=== PATIENT | female | born 1975 | race Caucasian/White ===

== ENCOUNTER 2016-11-06 12:16 | Day surgery (SDC) | payer MEDICAID ==
[~2016-11-06] VITALS: Ht 167.6 cm; Wt 152.0 kg
[~2016-11-06 12:16] MED LIST: ALBU8.5H2 IH; ALBU8TAB PO; ASPI1TAB22 PO; ATOR40TA70 PO; BUDE180A IH; BUDE180A INH; BUDE90AE2 INH; CEFU500T PO; CIPR-226 PO; CLIN150C17 PO; CLN150C PO; CROM10DR2 OU; CROMOLYN OP; CROMOLYN OPTH OU; ENAL20TA PO; ENALAPRIL; FENO160T12 PO; FENOFIBRATE; GABA-488 PO; HCTZ; HYDR-3454 PO; HYDR-3714 PO; HYDR-3812 PO; HYDR25TA4 PO; IBUP-30 PO; INSU100C4 SQ; INSU100I14 SC; INSU100I14 SQ; INSU100I16 SQ; INSU100I29 SC; INSU100V3 SQ; INSU100V5 SQ; L.AC1CAP6 PO; LEVO750T39 PO; LISI40TA PO; METF1000 PO; METO50TA2 PO; MONT10TA24 PO; MULT-974 PO; NYST15CR3 TP; PROM25SU44 RC; PROM25TA14 PO; RT-ALBUINH INH; SERT50TA2 PO; SERT50TA9 PO; SIMV20TA3 PO; SIMV40TA4 PO; SULF-222 PO; SULF1TAB35 PO; [UNRECOGNIZED DRUG - REMARK]
[2016-11-06] MEDS ORDERED: ONDANSETRON 4 MG/2 ML (SDV) Z0FRAN ONE (12:28)
[2016-11-06] MEDS ORDERED: LACTATED RINGERS 1,000 ML IV ONE (12:28)
[2016-11-06] MEDS ORDERED: MIDAZOLAM 2 MG/2 ML (VERSED) VIAL ONE (12:29)
[2016-11-06] MEDS ORDERED: fentaNYL INJECTION 100 MCG/2 ML AMP ONE (12:29)
[2016-11-06] MEDS ORDERED: LIDOCAINE 1% INJ 20 ML (XYLOCAINE) VIAL ONE (12:30)
[2016-11-06] MEDS ORDERED: VANCOMYCIN 1 GM/NS 250 ML IVPB IV ONE ×2 (12:30)
[2016-11-06] MEDS ORDERED: BUPIVACAINE 0.5% 30 ML (SENSORCAINE) VIAL ONE (12:30)
[2016-11-06] MEDS ORDERED: VANCOMYCIN 1000 MG/VIAL ONE (12:33)
--- NOTE | 2016-11-06 12:37 | Progress Note-Pre Operative ---
Pre-Operative Progress Note H&P Reviewed The H&P was reviewed, patient examined and no changes noted. Date H&P Reviewed: Nov 06, 2016 Time H&P Reviewed: 12:37 Pre-Operative Diagnosis: Osteomyelitis left hallux JERMAIN BROWN DPM Nov 06, 2016 12:37 pm
[2016-11-06] MEDS ORDERED: LACTATED RINGERS 1,000 ML IV PRN (12:50)
[2016-11-06] MEDS ORDERED: FAMOTIDINE 20MG/2ML IV (PEPCID) ONE (12:50)
[2016-11-06] MEDS ORDERED: proPOfol 200 MG/20 ML (DIPRIVAN) VIAL IV ONE (12:52)
[2016-11-06] MEDS ORDERED: FAMOTIDINE 20MG/2ML IV (PEPCID) IV ONE (13:00)
[2016-11-06 13:40] VITALS: BP 130/68
[2016-11-06] MEDS ORDERED: LACTATED RINGERS 1,000 ML IV SCH (13:55)
--- NOTE | 2016-11-06 13:55 | Progress Note-Post Operative ---
Post-Operative Progess Note Pre-Operative Diagnosis OSTEOMYELITIS LEFT HALLUX Post-Operative Diagnosis same Post-Op Procedure Note Date of Procedure: Nov 06, 2016 Name of Procedure: Amputation of the left hallux Procedure Note/Findings There is significant bone destruction of the distal phalanx, left hallux Anesthesia Type General Estimated blood loss (mL): Minimal Specimen(s) collected 1) Distal phalanx, left hallux 2) Proximal phalanx, left hallux JERMAIN BROWNM Nov 06, 2016 1:55 pm
[2016-11-06] MEDS ORDERED: HYDROcodone/APAP 5 MG/325 MG (LORTAB) TAB PO PRN (14:00)
[2016-11-06] MEDS ORDERED: morphine INJ 10 MG/ML 1ML (SYR OR VIAL) IV PRN (14:00)
[2016-11-06] MEDS ORDERED: ONDANSETRON 4 MG/2 ML (SDV) Z0FRAN IV PRN (14:00)
[2016-11-06] MEDS ORDERED: CLIN150C2 PO (14:05)
--- NOTE | 2016-11-06 14:08 | Discharge Inst-Simple/Standard ---
Discharge Inst-Standard Discharge Medications New, Converted or Re-Newed RX: Call to Patients Pharmacy Patient Instructions/Follow Up Plan of Care/Instructions/FU: [facility] Activity as Tolerated: No Discharge Diet: ADA Diet Return to The Hospital For: Severe pain or bleeding JERMAIN BROWN DPM Nov 06, 2016 2:08 pm
[2016-11-06 14:30] VITALS: BP 99/64
[2016-11-06 15:00] VITALS: BP 102/48
--- NOTE | 2016-11-06 15:25 | Physical Therapy Ortho Eval ---
PT Orthopedic Evaluation Type of Surgery amputation of left hallux Prior Level of Function Current Living Status: Spouse Locomotion (Upon Admit): Independent Established Durable Medical Eq: Front Wheeled Walker, Manual Wheelchair Subjective Subjective Patient in bed pre tx, agrees to PT, pleasant and cooperative. Entry Into Home: Stairs With Railing Steps Into Home: 3 Steps Inside Home: 1 Steps Accessories: Railing Present Motor Control Motor Control: Motor Control WNL ROM ROM: WFL, except focal deficit Strength NT due to recent surgery Transfer Transfers (B, C, W/C) (FIM): 6 Gait Gait Assistive Device: FWW Weight Bearing Restriction: Partial Weight Bearing Location Restriction: RT FOOT Gait (FIM): 6 Distance: 150' Summary/Comments Patient also went up and down 1 step using a rolling walker with mod I Treatment Rendered Treatment: Therapeutic Exercises, Gait Train Exercise Instruction: Quad Sets, Ankle Pumps LAQ Assessment/Goals Goal Time Frame: 1 Visit Understands HEP: Yes Safe Ambulation: Yes Plan Treatment Plan: Discharge PT/Family Agrees to Plan: Yes Time Time In: 1455 Time Out: 1515 Total Billed Treatment Time: 20 Billed Treatment Time 1 visit EVL 20 min Yes PT/OT Therapy GCodes Therapy Functional Limitation: Physical Therapy Test(s)/Tool used to determine: Level of Assistance Scale Functional Limitation-Current Charge Code: MOBCUR Modifier: CI Functional Limitation-Goal Charge Code: MOBGOAL Modifier: CI Functional Limitation-D/C Charge Codes: MOBDC Modifier: CI CHEPE GRUBER PT Nov 06, 2016 15:25
[2016-11-06 15:30] VITALS: BP 115/76
[2016-11-06 15:45] VITALS: BP 115/76
--- NOTE | 2016-11-08 12:56 | OPERATIVE REPORT ---
PROCEDURE PHYSICIAN: JERMAIN BROWN DATE OF PROCEDURE: 11/06/2016 PREOPERATIVE DIAGNOSIS: Osteomyelitis left hallux. POSTOPERATIVE DIAGNOSIS: Osteomyelitis left hallux. PROCEDURE: Amputation of the left hallux. WOUND CLASS: Contaminated. ANESTHESIA: Monitored anesthesia care. HEMOSTASIS: Pneumatic ankle tourniquet at 250 mmHg. INDICATION: This 41-year-old female presents with an ulceration to the distal aspect of the left hallux. She had cellulitis and was admitted to the hospital for IV antibiotics. X-rays were negative for any osteomyelitis at time; this was approximately 2 weeks ago. She followed up today in my clinic where she had progression of the wound to heal however it probed down to bone and x-ray followed up today showing significant osteolysis of the distal phalanx left hallux. The patient is agreeable to surgical intervention after risk and complications were discussed at length. She understands that the foot may need further surgery including further amputation, if necessary and she is willing to proceed. PROCEDURE: The patient was brought back to operating table, placed in a secure, supine position. Appropriate timeout was performed. The left foot was prepped and draped in normal sterile manner. The left foot was then elevated, allowed to exsanguinate after which the ankle tourniquet was elevated to 250 mmHg. Attention was then directed to the left hallux where a racquet-type incision was created overlying the interphalangeal joint of the left hallux with the racquet portion of the incision medial to the proximal phalanx. The incision was deepened down to bone and the distal phalanx disarticulated at the interphalangeal joint. The specimen was sent for gross and microscopic evaluation prior to this, however, a rongeur was utilized to resect a piece of bone of the distal phalanx for culture and sensitivity. Next, the distal aspect of the proximal phalanx was then removed with a power sagittal saw and sent for gross and microscopic evaluation. It felt completely normal without any compromise to its integrity or appearance. The extensor and flexor tendons were cut as proximally as possible. The remaining wound appeared to be without any pathology visible. There is no pus pocket. There is no necrosis and no abnormalities with the remaining portion of the left hallux. The wound was power washed with 1 liter of normal saline with gram of vancomycin infused. A swab culture was after this irrigation. The tourniquet was released and all active bleeders were then cauterized and closure was then performed with 4-0 Prolene in a simple interrupted type stitch. The skin came together without tension and capillary fill time was less than 3 seconds to the remaining flaps of the remaining left hallux. Postoperative injection consisted of 10 mL of 0.5% Marcaine. Postoperative dressing consisted of Betadine soaked Adaptic, sterile 4 x 4, sterile Kerlix, all secured with a Coban wrap. Postoperative instructions were given to the patient which he is to be nonweightbearing left foot with heel contact only - crutches or walker. I will see her back in the clinic two weeks period of time or sooner if necessary. Job ID: [id number] Dictated Date: 11/06/2016 14:03:53 Orange Picker Date: 11/08/2016 12:48:29 / azael
== END 2016-11-06 15:45 | disposition home or self-care (01) ==
LOC: SDC 12:16
PROVIDERS: ATTEND Podiatrist Foot & Ankle Surgery
DX: M86.9 Osteomyelitis, unspecified (principal)
CPT/HCPCS: 82962; 84703; 87070; 87075; 87081; 87205; 88305

== ENCOUNTER 2016-12-23 10:30 | Outpatient (RCR) | payer MEDICAID ==
[~2016-12-23 10:30] MED LIST changes: +CLIN150C2 PO
[2016-12-23] MEDS ORDERED: CLIN150C17 PO (17:08)
[2016-12-23] MEDS ORDERED: CLIN300C11 PO (17:08)
== END 2016-12-23 16:00 | disposition home or self-care (01) ==
LOC: WOUNDCARE 10:30
PROVIDERS: ATTEND Surgery
DX: E11.42 Type 2 diabetes mellitus with diabetic polyneuropathy (principal); L97.524 Non-pressure chronic ulcer of other part of left foot with necrosis of bone; M86.472 Chronic osteomyelitis with draining sinus, left ankle and foot; E66.01 Morbid (severe) obesity due to excess calories
CPT/HCPCS: 11042; 11044; 87070; 87075; 87077; 87186; 87205

== ENCOUNTER 2016-12-23 11:38 | Inpatient (IN) | payer MEDICAID ==
[~2016-12-23] VITALS: Ht 167.6 cm; Wt 150.6 kg
[2016-12-23 13:05] VITALS: BP 125/71
[2016-12-23] MEDS ORDERED: FLU TRIvalent (5 YOA+) 2016-17 (AFLURIA) 0.5 ML IM ONE (14:45)
[2016-12-23 14:46] LABS: BASOPHILS % (AUTO) 0 % (0-10); EOSINOPHILS # (AUTO) 0.2 10^3/uL (0.0-0.3); EOSINOPHILS % (AUTO) 1 % (0-10); LYMPHOCYTES # (AUTO) 1.9 X 10^3 (1.0-4.0); LYMPHOCYTES % (AUTO) 12 % (12-44); MEAN CORPUSCULAR HEMOGLOBIN 30 PG (25-34); MEAN CORPUSCULAR HGB CONC 35 G/DL (32-36); MEAN CORPUSCULAR VOLUME 87 FL (80-99); MEAN PLATELET VOLUME 9.8 FL (7.4-10.4); MONOCYTES % (AUTO) 6 % (0-12); NEUTROPHILS # (AUTO) 12.7 X 10^3 (1.8-7.8); NEUTROPHILS % (AUTO) 80 % (42-75); PLATELET COUNT 364 10^3/uL (130-400); RED BLOOD COUNT 3.68 10^6/uL (4.35-5.85); RED CELL DISTRIBUTION WIDTH 13.2 % (10.0-14.5); WHITE BLOOD COUNT 15.9 10^3/uL (4.3-11.0)
[2016-12-23] MEDS ORDERED: VANCOMYCIN INJECTION 2,000 MG in NS IV 500 ML 500 ML IV NR (15:16)
[2016-12-23 15:19] LABS: ALBUMIN 3.5 G/DL (3.2-4.5); BILIRUBIN,TOTAL 0.5 MG/DL (0.1-1.0); CALCIUM 9.1 MG/DL (8.5-10.1); CREATININE SERUM 1.06 MG/DL (0.60-1.30); POTASSIUM 3.8 MMOL/L (3.6-5.0); TOTAL PROTEIN 7.8 G/DL (6.4-8.2)
[2016-12-23] MEDS: ENOXAPARIN 40 MG/0.4 ML (LOVENOX) SYR SC SCH (15:39)
[2016-12-23 16:00] VITALS: BP 121/55
[2016-12-23] MEDS ORDERED: CATHETER FLUSH 10 ML SYR IV PRN (16:00)
[2016-12-23 16:07] LABS: EOSINOPHILS % (MANUAL) 1 %; LYMPHOCYTES % (MANUAL) 14 %; NEUTROPHILS % (MANUAL) 79 %
[2016-12-23] MEDS: oxyCODONE/APAP 7.5-325 MG (PERCOCET 7.5) TABLET PO PRN (16:56)
[2016-12-23] MEDS ORDERED: CLIN150C17 PO (17:08)
[2016-12-23] MEDS ORDERED: CLIN300C11 PO (17:08)
[2016-12-23] MEDS ORDERED: NON-FORMULARY MEDICATION 1 EA EA (Aspirin/Acetaminophen/Caffeine (Excedrin Migraine Caplet PO PRN (17:30)
[2016-12-23] MEDS ORDERED: RT-ALBUTEROL HFA (VENTOLIN) PER PUFF IH PRN (17:30)
[2016-12-23] MEDS ORDERED: RT-ALBUTEROL SULF 2.5 MG/3 ML PRE-MIX VIAL INH PRN (18:00)
[2016-12-23] MEDS ORDERED: ACETAMINOPHEN 500 MG TAB (TYLENOL) PO PRN (18:00)
[2016-12-23 20:00] VITALS: BP 118/57
[2016-12-23] MEDS: RT-FLUTICASONE 110 MCG (FLOVENT) PER PUFF INH SCH (20:20)
[2016-12-23] MEDS: IBUPROFEN TABLET 200 MG TAB PO PRN (20:36)
[2016-12-23] MEDS ORDERED: BUDESONIDE INH SCH (21:00)
[2016-12-23] MEDS ORDERED: NON-FORMULARY MEDICATION 1 EA EA (Insulin Detemir (Levemir Flextouch) 50 UNITS) SC SCH (21:00)
[2016-12-23] MEDS ORDERED: NON-FORMULARY MEDICATION 1 EA EA (Fenofibrate 160 MG) PO SCH (21:00)
[2016-12-23] MEDS: CATHETER FLUSH 10 ML SYR IV SCH (22:00)
[2016-12-23] MEDS: GABAPENTIN 300 MG (NEURONTIN) CAP PO SCH (22:50)
[2016-12-23] MEDS: ATORVASTATIN 40 MG (LIPITOR) TABLET PO SCH (22:50)
[2016-12-23] MEDS: meTOprolol TARTRATE 50 MG (LOPRESSOR) TAB PO SCH (22:50)
[2016-12-23] MEDS: inSUlin ASPART (NovoLOG) 1 UNIT/0.01 ML (CHARGE PER UNIT) SC SCH (22:51)
[2016-12-23] MEDS: MONTELUKAST 10 MG (SINGULAIR) TAB PO SCH (22:51)
[2016-12-23] MEDS: FENOFIBRATE 134 MG (LOFIBRA) CAPSULE PO SCH (22:51)
[2016-12-23] MEDS: inSUlin DETERMIR 1 UNIT/0.01 ML (LEVEMIR) CHARGE PER UNIT SQ SCH (22:52)
[2016-12-24] VITALS (7 sets, daily range): BP systolic 106–144; BP diastolic 52–78
[2016-12-24] MEDS: oxyCODONE/APAP 7.5-325 MG (PERCOCET 7.5) TABLET PO PRN ×3 (00:06→15:41)
[2016-12-24] MEDS ORDERED: VANCOMYCIN INJECTION 1,500 MG in NS IV 500 ML 500 ML IV SCH (03:00)
[2016-12-24] MEDS ORDERED: NON-FORMULARY MEDICATION 1 EA EA (Insulin Aspart (Novolog Flexpen) 30 UNITS) SC SCH (06:00)
[2016-12-24] MEDS: RT-FLUTICASONE 110 MCG (FLOVENT) PER PUFF INH SCH ×2 (07:39→21:10)
[2016-12-24] MEDS: MULTIVIT W/MINERALS TAB (THERAGRAN M) PO SCH (07:45)
[2016-12-24] MEDS: inSUlin ASPART (NovoLOG) 1 UNIT/0.01 ML (CHARGE PER UNIT) SC SCH ×7 (07:45→21:00)
[2016-12-24] MEDS: CATHETER FLUSH 10 ML SYR IV SCH ×3 (07:46→21:30)
[2016-12-24] MEDS: meTOprolol TARTRATE 50 MG (LOPRESSOR) TAB PO SCH ×2 (08:45→21:28)
[2016-12-24] MEDS: lisINopril 20 MG (ZESTRIL) TAB PO SCH (08:45)
[2016-12-24] MEDS: HYDROCHLOROTHIAZIDE 25 MG (HCTZ) TAB PO SCH (08:46)
[2016-12-24] MEDS: SERTRALINE 50 MG (ZOLOFT) TABLET PO SCH (08:46)
[2016-12-24] MEDS: GABAPENTIN 300 MG (NEURONTIN) CAP PO SCH ×3 (08:46→21:41)
[2016-12-24] MEDS: inSUlin DETERMIR 1 UNIT/0.01 ML (LEVEMIR) CHARGE PER UNIT SQ SCH ×2 (08:47→21:29)
[2016-12-24] MEDS ORDERED: NON-FORMULARY MEDICATION 1 EA EA (Lisinopril 40 MG) PO SCH (09:00)
--- NOTE | 2016-12-24 13:25 | History & Physicial (CHS) ---
HPI History of Present Illness: 41 yo patient that was a direct admit from wound clinic for IV antibiotics. Patient has had multiple other amputations on both feet. She has been trying to medically manage the wound on her left foot for a couple weeks now. She is getting more concerned because the infection is now into her bone per Xray. She would like to be evaluated by Dr Rodriguez for amputation. Dr Toth states that she had some red streaking up her leg yesterday when he saw her. She denies any pain. Source: patient, family, RN/MD, old records Exam Limitations: no limitations Date seen by provider: Dec 24, 2016 Attending Physician Marsha Almendarez MD PCP Stephanie Florence MD Consult Date of Admission Dec 23, 2016 at 12:27 Home Medications Home Medications Reviewed patient Home Medication Reconciliation Form Allergies Coded Allergies: Penicillins (Unverified Allergy, Severe, ANAPHYLAXIS, 06/08/13) EBO-Kjoehr-Cvkkfv Hx Patient Social History Alcohol Use: Occasionally Uses Recreational Drug Use: No Smoking Status: Never a Smoker Former smoker/When Quit: Apr 22, 1992 Recent Foreign Travel: No Contact w/other who traveled: No Recent Hopitalizations: No Recent Infectious Disease Expo: No Physical Abuse Screen: No Sexual Abuse: No Immunizations Up To Date Tetanus Booster (TDap): Less than 5yrs Date of Pneumonia Vaccine: Jul 25, 2015 Past Medical History Insulin Dependent DM II Multiple amputations 2/2 DM foot ulcers HTN COPD HLD Obesity Family Medical History Family History: Coronary thrombosis 19 MOTHER Diabetes mellitus 19 MOTHER Glaucoma 19 MOTHER Hypertension 19 MOTHER Retinal detachment Review of Systems ([facility]C) Constitutional: no symptoms reportedNo chills, No fever Respiratory: no symptoms reportedNo cough, No dyspnea on exertion, short of breath (with activity, at baseline) Cardiovascular: no symptoms reportedNo chest pain, No edema, No palpitations Gastrointestinal: no symptoms reportedNo abdominal pain, No constipation, No diarrhea, No nausea, No vomiting Genitourinary: no symptoms reportedNo dysuria, No frequency : No Musculoskeletal: joint swelling Skin: other (Wound on left 2nd toe) Psychiatric/Neurological: No Symptoms Reported Reviewed Test Results Reviewed Test Results Lab Laboratory Tests Test 12/23/16 14:34 12/23/16 20:51 12/24/16 05:34 12/24/16 10:14 Range/Units Alanine Aminotransferase (ALT/SGPT) 12 0-55 U/L Albumin 3.5 3.2-4.5 G/DL Alkaline Phosphatase 44 40-136 U/L Anion Gap 13 5-14 MMOL/L Aspartate Amino Transf (AST/SGOT) 13 5-34 U/L BUN/Creatinine Ratio 25 Basophils # (Auto) 0.0 0.0-0.1 10^3/uL Basophils (%) (Auto) 0 0-10 % Blood Urea Nitrogen 26 H 7-18 MG/DL Calcium Level 9.1 8.5-10.1 MG/DL Carbon Dioxide Level 23 21-32 MMOL/L Chloride Level 99 98-107 MMOL/L Creatinine 1.06 0.60-1.30 MG/DL Eosinophils # (Auto) 0.2 0.0-0.3 10^3/uL Eosinophils % (Manual) 1 % Eosinophils (%) (Auto) 1 0-10 % Estimat Glomerular Filtration Rate 57 Glucose Level 109 H 70-105 MG/DL Hematocrit 32 L 35-52 % Hemoglobin 11.1 L 11.5-16.0 G/DL Lymphocytes # (Auto) 1.9 1.0-4.0 X 10^3 Lymphocytes % (Manual) 14 % Lymphocytes (%) (Auto) 12 12-44 % Macrocytosis SLIGHT Mean Corpuscular Hemoglobin 30 25-34 PG Mean Corpuscular Hemoglobin Concent 35 32-36 G/DL Mean Corpuscular Volume 87 80-99 FL Mean Platelet Volume 9.8 7.4-10.4 FL Monocytes # (Auto) 1.0 0.0-1.0 X 10^3 Monocytes % (Manual) 6 % Monocytes (%) (Auto) 6 0-12 % Neutrophils # (Auto) 12.7 H 1.8-7.8 X 10^3 Neutrophils % (Manual) 79 % Neutrophils (%) (Auto) 80 H 42-75 % Platelet Count 364 130-400 10^3/uL Potassium Level 3.8 3.6-5.0 MMOL/L Red Blood Count 3.68 L 4.35-5.85 10^6/uL Red Cell Distribution Width 13.2 10.0-14.5 % Sodium Level 135 135-145 MMOL/L Total Bilirubin 0.5 0.1-1.0 MG/DL Total Protein 7.8 6.4-8.2 G/DL White Blood Count 15.9 H 4.3-11.0 10^3/uL Glucometer 165 H 156 H 236 H 70-110 MG/DL Physical Exam-([facility]) Physical Exam Vital Signs VS - Last 72 Hours, by Label 12/23/16 12/23/16 12/23/16 12/23/16 13:05 14:50 16:00 20:00 Temp 98.8 100.6 99.3 Pulse 106 109 106 Resp 18 20 20 B/P 125/71 121/55 118/57 Pulse Ox 99 95 97 96 O2 Delivery Room Air Room Air Room Air 12/23/16 12/23/16 12/24/16 12/24/16 20:20 21:00 00:10 04:30 Temp 96.5 96.8 Pulse 80 76 Resp 20 20 B/P 109/66 144/77 Pulse Ox 94 98 99 O2 Delivery Room Air Room Air 12/24/16 12/24/16 12/24/16 12/24/16 07:26 07:41 08:08 11:31 Temp 96.3 97.5 Pulse 72 71 Resp 28 20 B/P 107/75 113/78 Pulse Ox 100 95 98 O2 Delivery Room Air Room Air Room Air Capillary Refill : General Appearance: WD/WN no apparent distress (Obese adult female) HEENT: PERRL/EOMI Neck: non-tender full range of motion supple normal inspection Respiratory: chest non-tender lungs clear normal breath sounds no respiratory distress no accessory muscle useNo crackles, No wheezing Cardiovascular: normal peripheral pulses regular rate, rhythm no edema no gallop no JVD no murmur Gastrointestinal: normal bowel sounds non tender soft no organomegaly no pulsatile mass Extremities: normal range of motion no calf tenderness other (R foot s/p toe amputation, left foot with only 2nd toe present, mild erythema at base of toe, no streaking present this AM) Neurologic/Psychiatric: mason foreman/superintendant II-XII nml as tested alert normal mood/affect oriented x 3 Skin: normal color warm/dry Lymphatic: no adenopathy Assessment/Plan Assessment/Plan Plan 41 yo F that was admitted for Left foot cellulitis Plan Left foot cellulitis - Podiatry has been consulted per patients request, she has had multiple amputations by Dr Rodriguez in the past - IV Vancomycin D2 - Patient will likely need amputation - Non weight bearing Left foot pain - Controlled on PO medications Insulin Dependent DM II - A1c pending - Continued home insulin medications at this time - Hold Metformin while inpatient HTN - Blood pressure has been well controlled, continue home medications COPD - Continue home medications, non oxygen dependent at baseline FEN: ADA Diet DVT PPX: SCDs, lovenox if patient is not going to have surgery while admitted Dispo: Admit to Med Surg for IV antibiotics Diagnosis/Problems: Clinical Quality Measures DVT/VTE Risk/Contraindication: Risk Factor Score Per Nursin RFS Level Per Nursing on Admit: 4+=Very High Copy Copies To 1: STEPHANIE FLORENCE MD, HOLLY R MD Dec 24, 2016 13:25
[2016-12-24] MEDS ORDERED: TROUGH ORDER-PHARMACY XX NR (14:00)
[2016-12-24] MEDS: VANCOMYCIN INJECTION 1,250 MG in NS (IVPB) 250 ML IV SCH (15:36)
[2016-12-24] MEDS: ENOXAPARIN 40 MG/0.4 ML (LOVENOX) SYR SC SCH (15:36)
--- NOTE | 2016-12-24 18:04 | Podiatry Progress Note ---
Standard Progress Note Progress Notes/Assess & Plan Progress/Assessment & Plan Consult Dictated: Recommend IV antibiotics and wound care improve the cellulitis before surgery. Xrays ordered. Final Diagnosis Osteomyelitis left 2nd toe Cellulitis left foot Diabetic Neuropathy JERMAIN BROWN DPM Dec 24, 2016 18:04
--- NOTE | 2016-12-24 18:35 | Diagnostic Imaging Report ---
INDICATION: Infection. EXAMINATION: Left foot at 6:07 p.m. AP and lateral views were obtained. FINDINGS: The prior exam of 10/21/16 noted a soft tissue irregularity of the distal great toe. In the interval since the previous exam, the distal phalanx and the distal half of the proximal phalanx of the great toe have been amputated. The previous study also noted a periosteal reaction around the distal half of the proximal phalanx of the third digit. That finding is not as pronounced on this exam. However, there now seems to be destruction of most of the distal phalanx of the second digit. This does suggest osteomyelitis. There is also much more soft tissue edema about the second digit than noted previously. No other bony abnormality is identified. IMPRESSION: 1. There is destruction of most of the distal phalanx of the second digit with associated soft tissue edema. This appearance would be consistent with osteomyelitis. If further imaging is desired, then either a three-phase nuclear medicine bone scan or MRI would be recommended. 2. The periosteal reaction of the distal proximal phalanx of the third digit, seen previously, is not as pronounced on this exam. 3. There has been amputation of the distal phalanx and the distal half of the proximal phalanx of the great toe in the interval since the previous study. Dictated by: Dictated on workstation # [id number]
[2016-12-24] MEDS: ATORVASTATIN 40 MG (LIPITOR) TABLET PO SCH (21:28)
[2016-12-24] MEDS: FENOFIBRATE 134 MG (LOFIBRA) CAPSULE PO SCH (21:28)
[2016-12-24] MEDS: IBUPROFEN TABLET 200 MG TAB PO PRN (21:28)
[2016-12-24] MEDS: MONTELUKAST 10 MG (SINGULAIR) TAB PO SCH (21:28)
[2016-12-25 00:46] VITALS: BP 101/62
[2016-12-25] MEDS: VANCOMYCIN INJECTION 1,250 MG in NS (IVPB) 250 ML IV SCH ×3 (03:09→15:54)
[2016-12-25 04:10] VITALS: BP 101/54
[2016-12-25] MEDS: inSUlin ASPART (NovoLOG) 1 UNIT/0.01 ML (CHARGE PER UNIT) SC SCH ×7 (06:00→21:00)
[2016-12-25 06:01] LABS: BASOPHILS # (AUTO) 0.1 10^3/uL (0.0-0.1); BASOPHILS % (AUTO) 1 % (0-10); EOSINOPHILS # (AUTO) 0.6 10^3/uL (0.0-0.3); EOSINOPHILS % (AUTO) 6 % (0-10); LYMPHOCYTES % (AUTO) 21 % (12-44); MEAN CORPUSCULAR HEMOGLOBIN 30 PG (25-34); MEAN CORPUSCULAR HGB CONC 34 G/DL (32-36); MEAN CORPUSCULAR VOLUME 88 FL (80-99); MEAN PLATELET VOLUME 9.8 FL (7.4-10.4); MONOCYTES # (AUTO) 0.7 X 10^3 (0.0-1.0); MONOCYTES % (AUTO) 8 % (0-12); NEUTROPHILS # (AUTO) 6.2 X 10^3 (1.8-7.8); NEUTROPHILS % (AUTO) 65 % (42-75); PLATELET COUNT 356 10^3/uL (130-400); RED BLOOD COUNT 3.53 10^6/uL (4.35-5.85); RED CELL DISTRIBUTION WIDTH 13.5 % (10.0-14.5); WHITE BLOOD COUNT 9.5 10^3/uL (4.3-11.0)
[2016-12-25 06:39] LABS: CALCIUM 8.4 MG/DL (8.5-10.1); CREATININE SERUM 1.19 MG/DL (0.60-1.30); POTASSIUM 4.2 MMOL/L (3.6-5.0)
[2016-12-25] MEDS: CATHETER FLUSH 10 ML SYR IV SCH ×3 (07:04→22:48)
[2016-12-25] MEDS: MULTIVIT W/MINERALS TAB (THERAGRAN M) PO SCH (07:05)
[2016-12-25] MEDS: RT-FLUTICASONE 110 MCG (FLOVENT) PER PUFF INH SCH ×2 (07:15→19:00)
[2016-12-25 07:38] VITALS: BP 101/68
--- NOTE | 2016-12-25 07:40 | CONSULTATION REPORT ---
DATE OF CONSULTATION: 12/24/2016 REFERRING PHYSICIAN: The patient was home and had to go the restroom in the middle of the night and missed a step striking her left second toe. The patient tried home wound care for the resulting injury which did not improve. She was then seen at which [facility] for wound care which was not successful. The patient subsequently had the toe infected and was referred to the [facility] wound clinic. Dr. Salazar looked after the patient and recommended IV antibiotics and was subsequently admitted. The patient does have some discomfort associated with her left rearfoot and lower leg. No current fever, chills, nausea or vomiting are reported. She has been on IV antibiotics for a couple days to my understanding. PAST MEDICAL HISTORY: Includes: 1. Insulin-dependent type 2 diabetes. 2. Multiple amputations, bilateral foot. 3. Hypertension. 4. COPD. 5. HDL. 6. Obesity. SOCIAL HISTORY: The patient uses occasional alcohol, no recreational drugs. Denies tobacco use. ALLERGIES: She is allergic to penicillin. LOWER EXTREMITY EXAMINATION: The patient has a transmetatarsal amputation on the right. On the left, she a partial amputation of the hallux and the 3rd digit. She has full-thickness wound to the distal aspect of the left second digit with probing down to bone. Some maceration to the distal wound. There is edema to the second digit with a bulla developing on the dorsal lateral aspect. There is no proximal streaking noted at this time and some erythema to the distal aspect of the left second digit. ASSESSMENT: 1. Osteomyelitis left 2nd toe. 2. Cellulitis. 3. Diabetic neuropathy. PLAN: Various treatment options were discussed with the patient. We discussed conservative and surgical options. Conservative options would be continued wound care with IV antibiotics. She would like to rather have digital amputation to resolve the problem if possible. In light of the fact that the second toe is longer than the remainder of the hallux or a 3rd digit, I think she would be right to have an amputation. This gives her greater chance of less trauma to the second digit and also a potentially more definitive resolution to the osteomyelitis. X-rays were ordered today for the left foot. I think it is in the interest of the patient to have IV antibiotics and wound care performed for several days prior to an amputation. I am hoping to have this done Wednesday if possible. Job ID: [id number] Dictated Date: 12/24/2016 18:11:02 Vest Maker Date: 12/25/2016 07:32:32/sabrina OLIVAS
[2016-12-25] MEDS: lisINopril 20 MG (ZESTRIL) TAB PO SCH (09:08)
[2016-12-25] MEDS: HYDROCHLOROTHIAZIDE 25 MG (HCTZ) TAB PO SCH (09:08)
[2016-12-25] MEDS: SERTRALINE 50 MG (ZOLOFT) TABLET PO SCH (09:08)
[2016-12-25] MEDS: GABAPENTIN 300 MG (NEURONTIN) CAP PO SCH ×3 (09:08→21:02)
[2016-12-25] MEDS: meTOprolol TARTRATE 50 MG (LOPRESSOR) TAB PO SCH ×2 (09:08→21:02)
[2016-12-25] MEDS: inSUlin DETERMIR 1 UNIT/0.01 ML (LEVEMIR) CHARGE PER UNIT SQ SCH ×2 (09:09→21:01)
--- NOTE | 2016-12-25 11:15 | Progress Note (SOAP) ---
Subjective Subjective/Events-last exam Patient states that she is doing well this AM. States that she saw Dr Rodriguez and there is a plan for surgery on Wednesday. Tolerating PO diet. Denies pain, N/V or abd pain. Date seen by provider: Dec 25, 2016 Objective Exam Last Set of Vital Signs Vital Signs Date Time Temp Pulse Resp B/P Pulse Ox O2 Delivery O2 Flow Rate FiO2 12/25/16 07:38 96.6 72 18 101/68 99 Room Air Capillary Refill : I&O Intake and Output 12/25/16 00:00 Intake Total 2242.5 ml Output Total 2450 ml Balance -207.5 ml Intake Oral 1980 ml IV Total 262.5 ml Output Urine Total 2450 ml General: Alert, Oriented X3, Cooperative, No Acute Distress Lungs: Clear to Auscultation, Normal Air Movement Heart: Regular Rate, Normal S1, Normal S2, No Murmurs Abdomen: Normal Bowel Sounds, Soft, No Tenderness, No Hepatosplenomegaly, No Masses Extremities: Other (Left toe bandaged, no streaking present) Psych/Mental Status: Mental Status NL, Mood NL Results/Procedures Lab Laboratory Tests 12/24/16 14:02: Vancomycin Level Trough 20.1H 12/24/16 15:50: Glucometer 84 12/24/16 21:04: Glucometer 123H 12/25/16 05:50: Anion Gap 13, BUN/Creatinine Ratio 34, Basophils # (Auto) 0.1, Basophils (%) ( Auto) 1, Blood Urea Nitrogen 40H, Calcium Level 8.4L, Carbon Dioxide Level 20L, Chloride Level 103, Creatinine 1.19, Eosinophils # (Auto) 0.6H, Eosinophils (%) (Auto) 6, Estimat Glomerular Filtration Rate 50, Glucose Level 148H, Hematocrit 31L, Hemoglobin 10.7L, Hemoglobin A1c < 4.0L, Lymphocytes # (Auto) 2.0, Lymphocytes (%) (Auto) 21, Mean Corpuscular Hemoglobin 30, Mean Corpuscular Hemoglobin Concent 34, Mean Corpuscular Volume 88, Mean Platelet Volume 9.8, Monocytes # (Auto) 0.7, Monocytes (%) (Auto) 8, Neutrophils # (Auto) 6.2, Neutrophils (%) (Auto) 65, Platelet Count 356, Potassium Level 4.2, Red Blood Count 3.53L, Red Cell Distribution Width 13.5, Sodium Level 136, White Blood Count 9.5 Assessment/Plan Assessment/Plan Plan 41 yo F that was admitted for Left foot cellulitis Plan Left foot cellulitis - Dr Rodriguez plans to take patient to surgery on Wednesday - Left foot Xrays pending - IV Vancomycin D3, Trough mildly elevated, dose adjusted to 1250 BID - Non weight bearing Left foot pain - Controlled on PO medications Insulin Dependent DM II - A1c pending - Continued home insulin medications at this time - Hold Metformin while inpatient HTN - Blood pressure has been well controlled, continue home medications COPD - Continue home medications, non oxygen dependent at baseline FEN: ADA Diet DVT PPX: Lovenox Daily Dispo: Continue admit to Med Surg for IV antibiotics Diagnosis/Problems: Clinical Quality Measures DVT/VTE Risk/Contraindication: Risk Factor Score Per Nursin RFS Level Per Nursing on Admit: 4+=Very High DOMITILA UMANA MD Dec 25, 2016 11:15
[2016-12-25 13:35] VITALS: BP 105/69
[2016-12-25] MEDS: oxyCODONE/APAP 7.5-325 MG (PERCOCET 7.5) TABLET PO PRN ×2 (13:50→22:48)
[2016-12-25] MEDS ORDERED: TROUGH ORDER-PHARMACY XX NR (14:00)
--- NOTE | 2016-12-25 14:02 | Podiatry Progress Note ---
Standard Progress Note Progress Notes/Assess & Plan Progress/Assessment & Plan The patient states that the pain was much improved until she stood up for a shower. No F/C/N/V. There is some serous drainage to the gauze dressing left 2nd digit. There is decreased erythema to the proximal left 2nd digit. No proximal streaking. The bulla to the proximal portion of the 2nd digit has improved, it is currently deroofed. Full thickness wound to the distal L2 toe which probes to bone. Laboratory Tests 12/23/16 14:34: Blood Urea Nitrogen 26H, Glucose Level 109H, Hematocrit 32L, Hemoglobin 11.1L, Neutrophils # (Auto) 12.7H, Neutrophils (%) (Auto) 80H, Red Blood Count 3.68L, White Blood Count 15.9H 12/23/16 20:51: Glucometer 165H 12/24/16 05:34: Glucometer 156H 12/24/16 10:14: Glucometer 236H 12/24/16 14:02: Vancomycin Level Trough 20.1H 12/24/16 15:50: 12/24/16 21:04: Glucometer 123H 12/25/16 05:50: Blood Urea Nitrogen 40H, Calcium Level 8.4L, Carbon Dioxide Level 20L, Eosinophils # (Auto) 0.6H, Glucose Level 148H, Hematocrit 31L, Hemoglobin 10.7L , Hemoglobin A1c < 4.0L, Red Blood Count 3.53L 12/25/16 11:16: Glucometer 202H Vital Signs Date Time Temp Pulse Resp B/P Pulse Ox O2 Delivery O2 Flow Rate FiO2 12/25/16 07:38 96.6 72 18 101/68 99 Room Air 12/25/16 07:15 98 12/25/16 04:10 96.0 64 18 101/54 98 Room Air 12/25/16 00:46 97.4 78 20 101/62 98 Room Air 12/24/16 21:15 80 124/64 12/24/16 21:10 97 12/24/16 21:00 Room Air 12/24/16 20:00 96.1 83 18 119/52 100 Room Air 12/24/16 15:45 95.8 71 16 106/65 100 Room Air I & O 12/25/16 07:00 Intake Total 2762.5 ml Output Total 2750 ml Balance 12.5 ml Xrays show osteolysis of the distal phalanx of the left 2nd digit. Plan: Continue with wound care and IV antibiotics until the wound envelope is improved to the proximal left 2nd digit. This will allow for improved outcomes with amputation and closure of the wound, left 2nd digit. Possible Wednesday noon surgery. Final Diagnosis Ostoemyelitis left 2nd digit. JERMAIN BROWN DPM Dec 25, 2016 14:02
[2016-12-25] MEDS: ENOXAPARIN 40 MG/0.4 ML (LOVENOX) SYR SC SCH (15:54)
[2016-12-25 16:00] VITALS: BP 100/58
[2016-12-25] MEDS: IBUPROFEN TABLET 200 MG TAB PO PRN (16:21)
--- NOTE | 2016-12-25 19:45 | Wound Care Progress Note ---
Subjective Subjective Subjective/Events-last exam 41 year old female with infected L 2nd toe wound, improved on IV antibiotics. Has required debridement of distal phalanx. Minimal pain in toe. PMFSH: no interval change. Review of Systems Pulmonary: No Dyspnea Cardiovascular: No: Chest Pain Objective Exam Last Set of Vital Signs Vital Signs Date Time Temp Pulse Resp B/P Pulse Ox O2 Delivery O2 Flow Rate FiO2 12/25/16 16:00 97.8 75 16 100/58 98 Room Air Capillary Refill : I&O Intake and Output 12/25/16 00:00 Intake Total 2242.5 ml Output Total 2450 ml Balance -207.5 ml Intake Oral 1980 ml IV Total 262.5 ml Output Urine Total 2450 ml General: Alert, No Acute Distress Lungs: Normal Air Movement Extremities: Other (Marked improvement in swelling of L 2nd toe.) Results Lab Laboratory Tests 12/24/16 21:04: Glucometer 123H 12/25/16 05:50: Anion Gap 13, BUN/Creatinine Ratio 34, Basophils # (Auto) 0.1, Basophils (%) ( Auto) 1, Blood Urea Nitrogen 40H, Calcium Level 8.4L, Carbon Dioxide Level 20L, Chloride Level 103, Creatinine 1.19, Eosinophils # (Auto) 0.6H, Eosinophils (%) (Auto) 6, Estimat Glomerular Filtration Rate 50, Glucose Level 148H, Hematocrit 31L, Hemoglobin 10.7L, Hemoglobin A1c < 4.0L, Lymphocytes # (Auto) 2.0, Lymphocytes (%) (Auto) 21, Mean Corpuscular Hemoglobin 30, Mean Corpuscular Hemoglobin Concent 34, Mean Corpuscular Volume 88, Mean Platelet Volume 9.8, Monocytes # (Auto) 0.7, Monocytes (%) (Auto) 8, Neutrophils # (Auto) 6.2, Neutrophils (%) (Auto) 65, Platelet Count 356, Potassium Level 4.2, Red Blood Count 3.53L, Red Cell Distribution Width 13.5, Sodium Level 136, White Blood Count 9.5 12/25/16 11:16: Glucometer 202H 12/25/16 14:35: Vancomycin Level Trough 22.0H 12/25/16 16:18: Glucometer 103 Assessment/Plan Assessment/Plan Assessment/Plan 1. Infection L 2nd toe with osteomyelitis. 2. Diabetic foot ulcer, Grade 3. 3. Cellulitis of L 2nd toe. Plan: Will observe on antibiotics. The patient is considering amputation. SHREYAS PIKE MD Dec 25, 2016 19:45
[2016-12-25 20:00] VITALS: BP 138/67
[2016-12-25] MEDS: FENOFIBRATE 134 MG (LOFIBRA) CAPSULE PO SCH (21:01)
[2016-12-25] MEDS: MONTELUKAST 10 MG (SINGULAIR) TAB PO SCH (21:01)
[2016-12-25] MEDS: ATORVASTATIN 40 MG (LIPITOR) TABLET PO SCH (21:02)
[2016-12-26] VITALS: BP 133/88
[2016-12-26] MEDS: IBUPROFEN TABLET 200 MG TAB PO PRN (00:29)
[2016-12-26 04:00] VITALS: BP 100/55
[2016-12-26] MEDS: CATHETER FLUSH 10 ML SYR IV SCH ×3 (06:07→22:17)
[2016-12-26 06:25] LABS: CALCIUM 8.6 MG/DL (8.5-10.1); CREATININE SERUM 1.11 MG/DL (0.60-1.30); POTASSIUM 4.3 MMOL/L (3.6-5.0)
[2016-12-26] MEDS: MULTIVIT W/MINERALS TAB (THERAGRAN M) PO SCH (06:41)
[2016-12-26] MEDS: inSUlin ASPART (NovoLOG) 1 UNIT/0.01 ML (CHARGE PER UNIT) SC SCH ×8 (07:04→20:42)
[2016-12-26] MEDS: RT-FLUTICASONE 110 MCG (FLOVENT) PER PUFF INH SCH ×2 (07:56→19:30)
[2016-12-26 08:13] VITALS: BP 125/60
[2016-12-26] MEDS: HYDROCHLOROTHIAZIDE 25 MG (HCTZ) TAB PO SCH (09:06)
[2016-12-26] MEDS: inSUlin DETERMIR 1 UNIT/0.01 ML (LEVEMIR) CHARGE PER UNIT SQ SCH ×2 (09:06→21:57)
[2016-12-26] MEDS: lisINopril 20 MG (ZESTRIL) TAB PO SCH (09:06)
[2016-12-26] MEDS: GABAPENTIN 300 MG (NEURONTIN) CAP PO SCH ×3 (09:06→20:29)
[2016-12-26] MEDS: SERTRALINE 50 MG (ZOLOFT) TABLET PO SCH (09:06)
[2016-12-26] MEDS: meTOprolol TARTRATE 50 MG (LOPRESSOR) TAB PO SCH ×2 (09:06→20:29)
[2016-12-26] MEDS: oxyCODONE/APAP 7.5-325 MG (PERCOCET 7.5) TABLET PO PRN ×2 (09:06→18:32)
[2016-12-26 12:08] VITALS: BP 143/73
[2016-12-26] MEDS: ENOXAPARIN 40 MG/0.4 ML (LOVENOX) SYR SC SCH (15:11)
[2016-12-26] MEDS: VANCOMYCIN INJECTION 1,250 MG in NS (IVPB) 250 ML IV SCH (15:11)
[2016-12-26 16:00] VITALS: BP 128/64
--- NOTE | 2016-12-26 19:47 | Progress Note (SOAP) ---
Subjective Subjective/Events-last exam Patient doing well this AM. No concerns. Date seen by provider: Dec 26, 2016 Objective Exam Last Set of Vital Signs Vital Signs Date Time Temp Pulse Resp B/P Pulse Ox O2 Delivery O2 Flow Rate FiO2 12/26/16 19:30 95 12/26/16 16:00 97.0 72 20 128/64 Room Air Capillary Refill : I&O Intake and Output 12/26/16 00:00 Intake Total 2122.5 ml Output Total 2300 ml Balance -177.5 ml Intake Oral 1860 ml IV Total 262.5 ml Output Urine Total 2300 ml General: Alert, Oriented X3, Cooperative, No Acute Distress Lungs: Clear to Auscultation, Normal Air Movement Heart: Regular Rate, Normal S1, Normal S2, No Murmurs Abdomen: Normal Bowel Sounds, Soft, No Tenderness, No Hepatosplenomegaly, No Masses Extremities: No Tenderness/Swelling, Other (Left foot with erythema and mild swelling, no streaking present) Results/Procedures Lab Laboratory Tests 12/25/16 20:15: Glucometer 108 12/26/16 05:25: Anion Gap 12, BUN/Creatinine Ratio 39, Blood Urea Nitrogen 43H, Calcium Level 8.6, Carbon Dioxide Level 20L, Chloride Level 105, Creatinine 1.11, Estimat Glomerular Filtration Rate 54, Glucose Level 125H, Potassium Level 4.3, Sodium Level 137 12/26/16 10:39: Glucometer 138H 12/26/16 16:44: Glucometer 85 Assessment/Plan Assessment/Plan Plan 41 yo F that was admitted for Left foot cellulitis Plan Left foot cellulitis - Dr Rodriguez plans to take patient to surgery on Wednesday - Left foot Xray show signs of Osteomyelitis - IV Vancomycin D4 - Non weight bearing Osteomyelitis in second digit on left foot - See above Left foot pain - Controlled on PO medications Insulin Dependent DM II - A1c <4 - Continued home insulin medications at this time - Hold Metformin while inpatient HTN - Blood pressure has been well controlled, continue home medications COPD - Continue home medications, non oxygen dependent at baseline FEN: ADA Diet DVT PPX: Lovenox Daily Dispo: Continue admit to Med Surg for IV antibiotics and surgery on Wednesday Diagnosis/Problems: Clinical Quality Measures DVT/VTE Risk/Contraindication: Risk Factor Score Per Nursin RFS Level Per Nursing on Admit: 4+=Very High DOMITILA UMANA MD Dec 26, 2016 19:47
[2016-12-26 20:03] VITALS: BP 111/63
[2016-12-26] MEDS: MONTELUKAST 10 MG (SINGULAIR) TAB PO SCH (20:29)
[2016-12-26] MEDS: ATORVASTATIN 40 MG (LIPITOR) TABLET PO SCH (20:29)
[2016-12-26] MEDS: FENOFIBRATE 134 MG (LOFIBRA) CAPSULE PO SCH (20:29)
[2016-12-27] VITALS: BP 111/70
[2016-12-27] MEDS: oxyCODONE/APAP 7.5-325 MG (PERCOCET 7.5) TABLET PO PRN ×4 (00:54→21:51)
[2016-12-27 05:25] LABS: CALCIUM 8.8 MG/DL (8.5-10.1); CREATININE SERUM 1.2 MG/DL (0.60-1.30); POTASSIUM 4.3 MMOL/L (3.6-5.0)
[2016-12-27] MEDS: inSUlin ASPART (NovoLOG) 1 UNIT/0.01 ML (CHARGE PER UNIT) SC SCH ×7 (06:00→21:00)
[2016-12-27] MEDS: CATHETER FLUSH 10 ML SYR IV SCH ×3 (06:17→22:28)
[2016-12-27] MEDS: MULTIVIT W/MINERALS TAB (THERAGRAN M) PO SCH (06:17)
[2016-12-27 08:00] VITALS: BP 121/63
[2016-12-27] MEDS: SERTRALINE 50 MG (ZOLOFT) TABLET PO SCH (08:10)
[2016-12-27] MEDS: HYDROCHLOROTHIAZIDE 25 MG (HCTZ) TAB PO SCH (08:10)
[2016-12-27] MEDS: meTOprolol TARTRATE 50 MG (LOPRESSOR) TAB PO SCH ×2 (08:10→20:50)
[2016-12-27] MEDS: lisINopril 20 MG (ZESTRIL) TAB PO SCH (08:10)
[2016-12-27] MEDS: GABAPENTIN 300 MG (NEURONTIN) CAP PO SCH ×3 (08:10→20:51)
[2016-12-27] MEDS: inSUlin DETERMIR 1 UNIT/0.01 ML (LEVEMIR) CHARGE PER UNIT SQ SCH ×2 (08:11→21:02)
[2016-12-27] MEDS: RT-FLUTICASONE 110 MCG (FLOVENT) PER PUFF INH SCH ×2 (09:12→19:20)
[2016-12-27] MEDS ORDERED: TROUGH ORDER-PHARMACY XX NR (14:00)
[2016-12-27] MEDS: ENOXAPARIN 40 MG/0.4 ML (LOVENOX) SYR SC SCH (15:00)
[2016-12-27 16:00] VITALS: BP 136/81
[2016-12-27] MEDS: VANCOMYCIN 1 GM/NS 250 ML IVPB IV SCH ×2 (16:03)
--- NOTE | 2016-12-27 19:23 | Progress Note (SOAP) ---
Subjective Subjective/Events-last exam No complaints today. Waiting to talk to Dr Rodriguez about surgery. Date seen by provider: Dec 27, 2016 Objective Exam Last Set of Vital Signs Vital Signs Date Time Temp Pulse Resp B/P Pulse Ox O2 Delivery O2 Flow Rate FiO2 12/27/16 16:00 96.8 69 20 136/81 100 Room Air Capillary Refill : I&O Intake and Output 12/26/16 23:59 Intake Total 2622.5 ml Output Total 3550 ml Balance -927.5 ml Intake Oral 2360 ml IV Total 262.5 ml Output Urine Total 3550 ml General: Alert, Oriented X3, Cooperative, No Acute Distress Lungs: Clear to Auscultation, Normal Air Movement Heart: Regular Rate, No Murmurs Abdomen: Normal Bowel Sounds, Soft, No Tenderness Extremities: Other (Left foot with bandage present, no erythema present streaking up leg, mild tenderness with active range of motion) Psych/Mental Status: Mental Status NL, Mood NL Results/Procedures Lab Laboratory Tests 12/26/16 20:41: Glucometer 92 12/27/16 04:05: Anion Gap 11, BUN/Creatinine Ratio 39, Blood Urea Nitrogen 47H, Calcium Level 8.8, Carbon Dioxide Level 20L, Chloride Level 105, Creatinine 1.20, Estimat Glomerular Filtration Rate 49, Glucose Level 122H, Potassium Level 4.3, Sodium Level 136 12/27/16 10:41: Glucometer 241H 12/27/16 14:45: Vancomycin Level Trough 12.1 12/27/16 15:50: Glucometer 129H Assessment/Plan Assessment/Plan Plan 41 yo F that was admitted for Left foot cellulitis Plan Left foot cellulitis - Dr Rodriguez plans to take patient to surgery on Wednesday - Left foot Xray show signs of Osteomyelitis - IV Vancomycin D5 - Non weight bearing Osteomyelitis in second digit on left foot - See above Left foot pain - Controlled on PO medications Insulin Dependent DM II - A1c <4, risk of hypoglycemia, patient denies any symptoms of hypoglycemia - Continued home insulin medications at this time - Hold Metformin while inpatient HTN - Blood pressure has been well controlled, continue home medications COPD - Continue home medications, non oxygen dependent at baseline FEN: ADA Diet DVT PPX: Lovenox Daily, will hold tonight dose if surgery is scheduled for tomorrow Dispo: Continue admit to Med Surg for IV antibiotics and surgery on Wednesday Diagnosis/Problems: Clinical Quality Measures DVT/VTE Risk/Contraindication: Risk Factor Score Per Nursin RFS Level Per Nursing on Admit: 4+=Very High DOMITILA UMANA MD Dec 27, 2016 19:23
[2016-12-27] MEDS: MONTELUKAST 10 MG (SINGULAIR) TAB PO SCH (20:50)
[2016-12-27] MEDS: ATORVASTATIN 40 MG (LIPITOR) TABLET PO SCH (20:51)
[2016-12-27] MEDS: FENOFIBRATE 134 MG (LOFIBRA) CAPSULE PO SCH (21:02)
--- NOTE | 2016-12-27 21:25 | Podiatry Progress Note ---
Standard Progress Note Progress Notes/Assess & Plan Progress/Assessment & Plan The patient states that she would like to go home. Pain has improved, left. There is some serous drainage to the gauze dressing left 2nd digit. There is decreased erythema to the proximal left 2nd digit. No proximal streaking. There is a full thickness wound to the proximal lateral portion of the 2nd digit with a fibrotic base, 1.4cm in diameter. Full thickness wound to the distal L2 toe which probes to bone. Vital Signs Date Time Temp Pulse Resp B/P Pulse Ox O2 Delivery O2 Flow Rate FiO2 12/25/16 07:38 96.6 72 18 101/68 99 Room Air 12/25/16 07:15 98 12/25/16 04:10 96.0 64 18 101/54 98 Room Air 12/25/16 00:46 97.4 78 20 101/62 98 Room Air 12/24/16 21:15 80 124/64 12/24/16 21:10 97 12/24/16 21:00 Room Air 12/24/16 20:00 96.1 83 18 119/52 100 Room Air 12/24/16 15:45 95.8 71 16 106/65 100 Room Air I & O 12/25/16 07:00 Intake Total 2762.5 ml Output Total 2750 ml Balance 12.5 ml Plan: Continue with wound care and IV antibiotics. She is to be NPO after midnight for surgery tomorrow. Consent for amputation of the left 2nd digit. Final Diagnosis Osteomyelitis left 2nd digit. JERMAIN BROWN DPM Dec 27, 2016 21:25
[2016-12-28] VITALS: BP 132/89
[2016-12-28] MEDS: VANCOMYCIN 1 GM/NS 250 ML IVPB IV SCH ×4 (02:55→14:36)
[2016-12-28] MEDS: CATHETER FLUSH 10 ML SYR IV SCH ×3 (05:31→20:38)
[2016-12-28] MEDS: inSUlin ASPART (NovoLOG) 1 UNIT/0.01 ML (CHARGE PER UNIT) SC SCH ×7 (05:32→17:55)
[2016-12-28 05:54] LABS: BASOPHILS # (AUTO) 0.1 10^3/uL (0.0-0.1); BASOPHILS % (AUTO) 1 % (0-10); EOSINOPHILS # (AUTO) 0.3 10^3/uL (0.0-0.3); EOSINOPHILS % (AUTO) 4 % (0-10); LYMPHOCYTES # (AUTO) 2.3 X 10^3 (1.0-4.0); LYMPHOCYTES % (AUTO) 29 % (12-44); MEAN CORPUSCULAR HEMOGLOBIN 30 PG (25-34); MEAN CORPUSCULAR HGB CONC 34 G/DL (32-36); MEAN CORPUSCULAR VOLUME 88 FL (80-99); MEAN PLATELET VOLUME 9.7 FL (7.4-10.4); MONOCYTES # (AUTO) 0.6 X 10^3 (0.0-1.0); MONOCYTES % (AUTO) 8 % (0-12); NEUTROPHILS # (AUTO) 4.7 X 10^3 (1.8-7.8); NEUTROPHILS % (AUTO) 59 % (42-75); PLATELET COUNT 429 10^3/uL (130-400); RED BLOOD COUNT 3.76 10^6/uL (4.35-5.85); RED CELL DISTRIBUTION WIDTH 13.6 % (10.0-14.5); WHITE BLOOD COUNT 7.9 10^3/uL (4.3-11.0)
[2016-12-28 06:19] LABS: ALBUMIN 3.1 G/DL (3.2-4.5); BILIRUBIN,TOTAL 0.3 MG/DL (0.1-1.0); CALCIUM 8.7 MG/DL (8.5-10.1); CREATININE SERUM 1.11 MG/DL (0.60-1.30); POTASSIUM 4.6 MMOL/L (3.6-5.0); TOTAL PROTEIN 7.3 G/DL (6.4-8.2)
[2016-12-28] MEDS: RT-FLUTICASONE 110 MCG (FLOVENT) PER PUFF INH SCH ×2 (07:27→19:54)
[2016-12-28] MEDS: GABAPENTIN 300 MG (NEURONTIN) CAP PO SCH ×3 (07:57→20:37)
[2016-12-28 08:00] VITALS: BP 130/84
[2016-12-28] MEDS ORDERED: LACTATED RINGERS 1,000 ML IV PRN ×2 (08:21→11:44)
[2016-12-28] MEDS ORDERED: LIDOCAINE 1% 10 MG/ML 0.2 ML SYR (FOR IV START) IJ ONE (08:30)
[2016-12-28] MEDS: meTOprolol TARTRATE 50 MG (LOPRESSOR) TAB PO SCH ×2 (08:31→20:37)
[2016-12-28] MEDS: HYDROCHLOROTHIAZIDE 25 MG (HCTZ) TAB PO SCH (08:31)
[2016-12-28] MEDS: lisINopril 20 MG (ZESTRIL) TAB PO SCH (08:31)
[2016-12-28] MEDS: inSUlin DETERMIR 1 UNIT/0.01 ML (LEVEMIR) CHARGE PER UNIT SQ SCH ×2 (08:35→20:38)
[2016-12-28] MEDS: MULTIVIT W/MINERALS TAB (THERAGRAN M) PO SCH (08:35)
[2016-12-28] MEDS ORDERED: BUPIVACAINE 0.5% 30 ML (SENSORCAINE) VIAL ONE (10:32)
[2016-12-28] MEDS ORDERED: LIDOCAINE 1% INJ 20 ML (XYLOCAINE) VIAL ONE (10:32)
[2016-12-28] MEDS ORDERED: proPOfol 200 MG/20 ML (DIPRIVAN) VIAL IV ONE (10:51)
[2016-12-28] MEDS ORDERED: LIDOCAINE PF 2% 10 ML (XYLOCAINE) AMP ONE (10:51)
[2016-12-28] MEDS ORDERED: SEVOFLURANE (ULTANE) 15 ML INHAL SOLN ONE (10:51)
[2016-12-28] MEDS ORDERED: ONDANSETRON 4 MG/2 ML (SDV) Z0FRAN ONE (10:51)
[2016-12-28] MEDS ORDERED: LACTATED RINGERS 1,000 ML IV ONE (10:51)
[2016-12-28] MEDS ORDERED: MIDAZOLAM 2 MG/2 ML (VERSED) VIAL ONE (10:52)
[2016-12-28] MEDS ORDERED: fentaNYL INJECTION 250 MCG/5 ML AMP ONE (10:52)
--- NOTE | 2016-12-28 12:11 | Progress Note-Pre Operative ---
Pre-Operative Progress Note H&P Reviewed The H&P was reviewed, patient examined and no changes noted. Date H&P Reviewed: Dec 28, 2016 Time H&P Reviewed: 12:10 Pre-Operative Diagnosis: Osteomyelitis left 2nd toe JERMAIN BROWN DPGiacomo Dec 28, 2016 12:11
--- NOTE | 2016-12-28 13:06 | Progress Note-Post Operative ---
Post-Operative Progess Note Pre-Operative Diagnosis Osteomyelitis left 2nd toe Post-Operative Diagnosis Same Post-Op Procedure Note Date of Procedure: Dec 28, 2016 Name of Procedure: Amputation of the left 2nd toe Anesthesia Type General Estimated blood loss (mL): Minimal Specimen(s) collected left 2nd digit JERMAIN BROWN DPM Dec 28, 2016 13:06
[2016-12-28] MEDS ORDERED: LACTATED RINGERS 1,000 ML IV SCH (13:11)
[2016-12-28] MEDS ORDERED: ONDANSETRON 4 MG/2 ML (SDV) Z0FRAN IVP PRN (13:30)
[2016-12-28] MEDS ORDERED: MEPERIDINE (DEMEROL) INJ 50 MG/ML IVP PRN (13:30)
[2016-12-28] MEDS ORDERED: morphine INJ 10 MG/ML 1ML (SYR OR VIAL) IVP PRN (13:30)
[2016-12-28] MEDS ORDERED: TROUGH ORDER-PHARMACY XX NR (14:00)
[2016-12-28 14:29] VITALS: BP 122/67
[2016-12-28] MEDS: SERTRALINE 50 MG (ZOLOFT) TABLET PO SCH (14:35)
[2016-12-28] MEDS: ENOXAPARIN 40 MG/0.4 ML (LOVENOX) SYR SC SCH (14:37)
--- NOTE | 2016-12-28 15:20 | Diagnostic Imaging Report ---
EXAMINATION: Left foot. INDICATION: Postop. TECHNIQUE: AP and lateral views were obtained. FINDINGS: The prior exam of 12/24/2016 noted that the distal phalanx and the distal half of the proximal phalanx of the great toe had been amputated. The distal and middle phalanges of the third toe had also been amputated. In the interval since the previous exam, the proximal phalanx, middle phalanx, and the remnant of the distal phalanx of the second digit seen previously have also been amputated. The overall appearance of the foot is otherwise no different. There is no new bony abnormality identified. There is no sign of a radiopaque foreign body. IMPRESSION: In the interval since the prior exam, the phalanges of the second digit have been amputated. There is no evidence for an acute bony abnormality. Dictated by: Dictated on workstation # [id number]
--- NOTE | 2016-12-28 15:32 | Physical Therapy Progress Note ---
Therapy Progress Note Patient declined all therapy intervention due to multiple amputations prior and patient trusts her ability with FWW use. PT educated patient on importance of activity to improve circulation and promote healing and patient verbally understands. No skilled PT indicated. 1 ref LUCY HUA PT Dec 28, 2016 15:32
[2016-12-28 16:09] VITALS: BP 123/57
[2016-12-28] MEDS: HYDROcodone/APAP 5 MG/325 MG (LORTAB) TAB PO PRN (19:44)
[2016-12-28] MEDS: FENOFIBRATE 134 MG (LOFIBRA) CAPSULE PO SCH (20:37)
[2016-12-28] MEDS: MONTELUKAST 10 MG (SINGULAIR) TAB PO SCH (20:37)
[2016-12-28] MEDS: ATORVASTATIN 40 MG (LIPITOR) TABLET PO SCH (20:37)
[2016-12-29 00:15] VITALS: BP 115/56
[2016-12-29] MEDS: CATHETER FLUSH 10 ML SYR IV SCH ×2 (03:15→13:44)
[2016-12-29] MEDS: VANCOMYCIN 1 GM/NS 250 ML IVPB IV SCH ×4 (03:22→14:45)
[2016-12-29] MEDS: RT-FLUTICASONE 110 MCG (FLOVENT) PER PUFF INH SCH (07:00)
[2016-12-29] MEDS: inSUlin ASPART (NovoLOG) 1 UNIT/0.01 ML (CHARGE PER UNIT) SC SCH ×5 (07:17→16:00)
[2016-12-29] MEDS: MULTIVIT W/MINERALS TAB (THERAGRAN M) PO SCH (07:18)
[2016-12-29 08:06] VITALS: BP 114/65
[2016-12-29] MEDS: GABAPENTIN 300 MG (NEURONTIN) CAP PO SCH ×2 (08:27→13:44)
[2016-12-29] MEDS: SERTRALINE 50 MG (ZOLOFT) TABLET PO SCH (08:27)
[2016-12-29] MEDS: inSUlin DETERMIR 1 UNIT/0.01 ML (LEVEMIR) CHARGE PER UNIT SQ SCH (08:27)
[2016-12-29] MEDS: lisINopril 20 MG (ZESTRIL) TAB PO SCH (08:27)
[2016-12-29] MEDS: meTOprolol TARTRATE 50 MG (LOPRESSOR) TAB PO SCH (08:27)
[2016-12-29] MEDS: HYDROCHLOROTHIAZIDE 25 MG (HCTZ) TAB PO SCH (08:27)
[2016-12-29] MEDS: HYDROcodone/APAP 5 MG/325 MG (LORTAB) TAB PO PRN (08:27)
--- NOTE | 2016-12-29 10:49 | Discharge Summary-Hospitalist ---
Diagnosis/Chief Complaint Date of Admission Dec 23, 2016 at 12:27 Date of Discharge Discharge Date: Discharge Diagnosis left second toe osteomyelitis requiring amputation by Dr. 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 Pt will have second left toe amputated today. Patient Interview: PCP is Dr. Hoskins. Pt states that pain is manageable. Pt states that all of her right toes have been removed. Pt has a long hx of DM. Physical exam stable. Pt reports regular BMs. Pt states that she wants to go home. vitals stable, pleasant, oriented 3, partner at bedside Regular rate and rhythm, clear to all sedation bilaterally Left foot with second toe with dressing right foot metatarsal amputee Plan: Second left toe amputation SS Resume home health after DC Scribed by Varun Vickers under the direct supervision of Dr. Jackson. Hospital course: Patient had a lengthy hospital course she was admitted for cellulitis and abscess of the left toe Dr. Hylton podiatry saw her in consultation IV antibiotics for maintained along with laboratory evaluation and pain control. She responded to antibiotics and it was assessed that the left second toe needed amputation and that was performed at day of discharge by Dr. Rodriguez who had done other toes for her and especially the right metatarsal amputation in the past. She very has home care for wound care and will be monitor closely and provided all support that she needs during this recovery of the toe amputation. Notes from 12/29/2016: Chart Review: Pt stayed overnight after amputation. Pharmacy Review: Pharmacy suggests Clindamycin 150mg TID for 5 more days Patient Interview: Pt states that she will not be able to DC until her is down with work later today. Pt states that pain is normal. Pt uses [facility]. Pt states that she has sufficient supply of pain meds at home. Plan: Clindamycin 150mg TID for [address] Rodriguez regarding dressing changes. Scribed by Varun Vickers under the direct supervision of Dr. Jackson. Discharge Summary Discharge Physical Examination Allergies: Coded Allergies: Penicillins (Unverified Allergy, Severe, ANAPHYLAXIS, 06/08/13) Vitals & I&Os Vital Signs Date Time Temp Pulse Resp B/P Pulse Ox O2 Delivery O2 Flow Rate FiO2 12/29/16 08:06 95.2 71 20 114/65 100 Room Air Hospital Course Labs (last 24 hrs) Laboratory Tests 12/28/16 13:21: Glucometer 123H 12/28/16 16:24: Glucometer 140H 12/28/16 20:25: Glucometer 146H 12/29/16 06:21: Glucometer 151H 12/29/16 11:02: Glucometer 197H Microbiology 12/27/16 MRSA Screen - Final, Complete MRSA not isolated Pending Labs Laboratory Tests 12/29/16 06:21: Glucometer 151 12/29/16 11:02: Glucometer 197 Discharge Home Medications: Active Scripts Active Clindamycin HCl 150 Mg Capsule 150 Mg PO TID Reported Pulmicort Flexhaler (Budesonide) 90 Mcg Aer.pow.ba 1 Puff INH BID Cromolyn Sodium 10 Ml Drops 2 Drops OU DAILY PRN Promethazine Suppository (Promethazine HCl) 25 Mg Supp.rect 25 Mg RC Q4H PRN Sertraline HCl 50 Mg Tablet 50 Mg PO DAILY Metformin HCl 1,000 Mg Tablet 1,000 Mg PO BID Montelukast Sodium 10 Mg Tablet 10 Mg PO HS Proventil Hfa (Albuterol Sulfate) 6.7 Gm Hfa.aer.ad 2 Puff INH Q4H PRN Hydrochlorothiazide 25 Mg Tablet 25 Mg PO DAILY Metoprolol Tartrate 50 Mg Tablet 50 Mg PO BID Hydrocodon -Acetaminophen 5-325 (Hydrocodone/Acetaminophen) 1 Each Tablet 1 Tab PO Q4H PRN Levemir Flextouch (Insulin Detemir) 100 Unit/1 Ml Insuln.pen 50 Units SC BID Novolog Flexpen (Insulin Aspart) 300 Units/3 Ml Solution 30 Units SC AC Novolog Flexpen (Insulin Aspart) 300 Units/3 Ml Solution SQ SLIDING/SCALE PRN Lisinopril 40 Mg Tablet 40 Mg PO DAILY Gabapentin 300 Mg Capsule 300 Mg PO TID Fenofibrate 160 Mg Tablet 160 Mg PO HS Atorvastatin Calcium 40 Mg Tablet 40 Mg PO HS Promethazine Tablet (Promethazine HCl) 25 Mg Tablet 25 Mg PO TID PRN Nystatin 15 Gm Cream.gm. TP BID PRN Excedrin Migraine Caplet (Aspirin/Acetaminophen/Caffeine) 1 Tab Tablet 2 Tab PO DAILY PRN ALTERNATES WITH IBUPROFEN Advil (Ibuprofen) 200 Mg Tablet 800 Mg PO TID PRN TAKES 4 (200MG) TABLETS - ALTERNATES WITH IBUPROFEN Multi Vitamin Daily (Multivitamin) 1 Each Tablet 1 Tab PO DAILY Instructions to patient/family Please see electonic discharge instructions given to patient. Clinical Quality Measures DVT/VTE Risk/Contraindication: Risk Factor Score Per Nursin RFS Level Per Nursing on Admit: 4+=Very High AZIZA JACKSON DO Dec 29, 2016 10:49
[2016-12-29] MEDS ORDERED: CLIN150C17 PO (10:50)
--- NOTE | 2016-12-29 10:52 | Discharge Inst-Home Health ---
Discharge [facility]-Home Health Patient Instructions Patient Instructions/FU Appt: Complete antibiotics as directed Dressing changes per Dr. Rodriguez with home health care Patient Problems: left toe amputation Diabetes mellitus [place] DISCHARGE ORDERS Allergies: Coded Allergies: Penicillins (Unverified Allergy, Severe, ANAPHYLAXIS, 06/08/13) Height (Feet): 5 Height (Inches): 6.00 Weight (Pounds): 332 Weight (Ounces): 2.0 Weight (Calculated Kilograms): [id number] Home Health Need/Face to Face Need for Home Health toe amputation with right foot metatarsal amputation history I Have Seen Pt [id number]: Yes Date of Face to Face: Dec 29, 2016 Discharged To: Home Diagnosis/Conditions HH Order: medication administration Dressing changes per Dr. Rodriguez's orders yes Consult/Follow Up/New Order *I certify that based on my findings, the following services are medically necessary Home Health Services: Services: Nursing Services My clinical findings support the need for the above services; see Diagnosis. Discharge Diet: ADA Diet Daily Activity as Tolerated: Yes Discharge Medications New Medications: Clindamycin HCl (Clindamycin HCl) 150 Mg Capsule 150 MG PO TID #15 CAP Continued Medications: Albuterol Sulfate (Proventil Hfa) 6.7 Gm Hfa.aer.ad 2 PUFF INH Q4H PRN SHORTNESS OF BREATH INHALER Aspirin/Acetaminophen/Caffeine (Excedrin Migraine Caplet) 1 Tab Tablet 2 TAB PO DAILY ALTERNATES WITH IBUPROFEN PRN MIGRAINE TAB Atorvastatin Calcium (Atorvastatin Calcium) 40 Mg Tablet 40 MG PO HS TAB Budesonide (Pulmicort Flexhaler) 90 Mcg Aer.pow.ba 1 PUFF INH BID GM Cromolyn Sodium (Cromolyn Sodium) 10 Ml Drops 2 DROPS OU DAILY PRN ALLERGIES DROPS Fenofibrate (Fenofibrate) 160 Mg Tablet 160 MG PO HS TAB Gabapentin (Gabapentin) 300 Mg Capsule 300 MG PO TID CAP Hydrochlorothiazide (Hydrochlorothiazide) 25 Mg Tablet 25 MG PO DAILY TAB Hydrocodone/Acetaminophen (Hydrocodon -Acetaminophen 5-325) 1 Each Tablet 1 TAB PO Q4H PRN SEVERE PAIN TAB Ibuprofen (Advil) 200 Mg Tablet 800 MG PO TID TAKES 4 (200MG) TABLETS - ALTERNATES WITH IBUPROFEN PRN MIGRAINE TAB Insulin Aspart (Novolog Flexpen) 300 Units/3 Ml Solution SQ SLIDING/SCALE PRN HIGH BLOOD SUGAR EA Insulin Aspart (Novolog Flexpen) 300 Units/3 Ml Solution 30 UNITS SC AC EA Insulin Detemir (Levemir Flextouch) 100 Unit/1 Ml Insuln.pen 50 UNITS SC BID EA Lisinopril (Lisinopril) 40 Mg Tablet 40 MG PO DAILY TAB Metformin HCl (Metformin HCl) 1,000 Mg Tablet 1000 MG PO BID TAB Metoprolol Tartrate (Metoprolol Tartrate) 50 Mg Tablet 50 MG PO BID TAB Montelukast Sodium (Montelukast Sodium) 10 Mg Tablet 10 MG PO HS TAB Multivitamin (Multi Vitamin Daily) 1 Each Tablet 1 TAB PO DAILY TAB Nystatin (Nystatin) 15 Gm Cream.gm. TP BID PRN RASH EA Promethazine HCl (Promethazine Tablet) 25 Mg Tablet 25 MG PO TID PRN NAUSEA/VOMITING TAB Promethazine HCl (Promethazine Suppository) 25 Mg Supp.rect 25 MG RC Q4H PRN NAUSEA/VOMITING TAB Sertraline HCl (Sertraline HCl) 50 Mg Tablet 50 MG PO DAILY TAB I certify that this patient is under my care and that I, a nurse practitioner or a physician; a communication assistant working with me, had a face to face encounter that - meets the physician face to face encounter requirements with this patient as dated. AZIZA JACKSON DO Dec 29, 2016 10:52
--- NOTE | 2016-12-29 11:42 | Anesthesia-General Post-Op ---
General Patient Condition Mental Status/LOC: Same as Preop Cardiovascular: Satisfactory Nausea/Vomiting: Absent Respiratory: Satisfactory Pain: Controlled Complications: Absent Post Op Complications Complications None Follow Up Care/Instructions Patient Instructions None needed. Anesthesia/Patient Condition Patient Condition Patient is doing well, no complaints, stable vital signs, no apparent adverse anesthesia problems. No complications reported per nursing. JOHN MILAN CRNA Dec 29, 2016 11:42
--- NOTE | 2016-12-29 13:02 | OPERATIVE REPORT ---
PROCEDURE PHYSICIAN: PAT BROWN DATE OF PROCEDURE: 12/28/2016 SURGEON: Pat Brown DPM. PREOPERATIVE DIAGNOSIS: Osteomyelitis left second toe. POSTOPERATIVE DIAGNOSIS: Osteomyelitis left second toe. PROCEDURE: Amputation of left second toe. WOUND CLASS: Contaminated. ANESTHESIA: General. HEMOSTASIS: Pneumatic ankle tourniquet at 250 mmHg. INDICATION: This 41-year-old female presents with ulceration that extends down to bone. She had confirmed osteomyelitis through culture and x-ray. Conservative therapy is met with unsatisfactory results and the patient is agreeable to surgical intervention after risk and complications were discussed at length. No guarantees were extended to the patient and she is willing to proceed. PROCEDURE: The patient was brought to operating table, placed in a secure, supine position. Appropriate timeout was performed. A pneumatic ankle tourniquet was placed on the left lower extremity over several layers of padding. The left foot was then prepped and draped. General anesthetic was then induced. The left foot was then elevated, allowed to exsanguinate after which the tourniquet was inflated to 250 mmHg. Attention was then directed to the left second toe where full-thickness ulceration extended from the tip of the toe down to bone. There is also full-thickness ulceration to the proximal lateral aspect of the left second digit. The incision was created from the dorsal aspect of the second metatarsophalangeal joint extending distally, then medially creating a flap of the more medial proximal skin. Incision was then created from its dorsal aspect of the second metatarsal phalangeal joint just proximal to the full-thickness ulceration to the inferior aspect of the toe. The digit was then disarticulated at the proximal interphalangeal joint and the middle and distal phalanx were sent for gross and microscopic evaluation. Next sharply the proximal phalanx was disarticulated at the metatarsophalangeal joint. The extensor and flexor tendons were cut as proximally as possible. The remaining tissue was inspected and no major necrosis or purulent tissue was identified. The wound was then pulse irrigated with 2000 ccs of normal saline. The area was then swab cultured to confirm a sterile condition. The wound was then closed utilizing 4-0 Prolene in a simple interrupted type stitch. The tourniquet was released noting no active bleeders prior to closure. Also the appropriate capillary fill time to the remaining tissue of the amputation site, left second digit. Postoperative injection consisted of 7 mL of 0.5% Marcaine plain injected in local infusion to the surgical site. Postoperative dressing consisted of Betadine soaked Adaptic, sterile 4 x 4, sterile Kerlix, all secured with a Coban wrap. The patient tolerated the anesthesia and procedure well and was transported from the operating room to the recovery area, with vital signs stable and vascular status intact to the remaining tissue of the left foot. We will see the patient back in the clinic in approximately 2 weeks period of time or sooner if necessary. We should be able to discharge her to home tomorrow. Job ID: [id number] Dictated Date: 12/28/2016 13:11:10 Paper Bag Machine Operator Date: 12/29/2016 12:55:49 / [email or web address]
[2016-12-29] MEDS: ENOXAPARIN 40 MG/0.4 ML (LOVENOX) SYR SC SCH (13:46)
[2016-12-29] MEDS ORDERED: TROUGH ORDER-PHARMACY XX NR (14:00)
== END 2016-12-29 16:45 | disposition home health service (06) | DRG 988 ==
LOC: 4TH 12:27
PROVIDERS: ADMIT Family Medicine; ATTEND Family Medicine
PROC: 0QTP0ZZ Resection of Left Metatarsal, Open Approach (ICD-10-PCS; principal; 2016-12-28 12:24)
DX: L03.116 Cellulitis of left lower limb (principal); M86.472 Chronic osteomyelitis with draining sinus, left ankle and foot; E11.621 Type 2 diabetes mellitus with foot ulcer; E11.42 Type 2 diabetes mellitus with diabetic polyneuropathy; E66.01 Morbid (severe) obesity due to excess calories; Z68.43 Body mass index [BMI] 50.0-59.9, adult; I10 Essential (primary) hypertension; J44.9 Chronic obstructive pulmonary disease, unspecified; E78.5 Hyperlipidemia, unspecified; Z79.4 Long term (current) use of insulin
CPT/HCPCS: 36415; 73620; 80048; 80053; 80202; 82962; 83036; 84703; 85007; 85025; 85027; 87070; 87075; 87081; 87205; 88305; 88311; 94640; 94760

== ENCOUNTER → 2017-02-09 | Outpatient (CLI) | payer MEDICAID ==
[~2017-02-09] MED LIST changes: +CLIN300C11 PO
--- NOTE | 2017-02-09 12:45 | Diagnostic Imaging Report ---
Gastric emptying scan. INDICATION: Abdominal pain. After the oral administration of 1.1 mCi of technetium 99m sulfur colloid mixed in a meal , images over the stomach with counts performed. FINDINGS: Gastric emptying is 40% at one hour , 62% at 2 hours, 80%, at 3 hours, and 86% at 4 hours. IMPRESSION: Gastric emptying within normal limits. Dictated by: Dictated on workstation # [id number]
== END ==
LOC: CARD 07:51
PROVIDERS: ATTEND Family Medicine
DX: R10.11 Right upper quadrant pain (principal); R11.2 Nausea with vomiting, unspecified
CPT/HCPCS: 78264

== ENCOUNTER 2017-03-17 05:37 | Outpatient (CLI) | payer MEDICAID ==
[~2017-03-17] VITALS: Ht 167.6 cm; Wt 150.6 kg
[2017-03-19] MEDS ORDERED: HYDR-3812 PO (13:37)
== END 2017-03-17 08:52 ==
LOC: PREOP 05:37
PROVIDERS: ATTEND Podiatrist Foot & Ankle Surgery
DX: Z01.818 Encounter for other preprocedural examination (principal); M86.9 Osteomyelitis, unspecified

== ENCOUNTER 2017-03-19 11:30 | Day surgery (SDC) | payer MEDICAID ==
[~2017-03-19] VITALS: Ht 167.6 cm; Wt 150.6 kg
[2017-03-19 11:35] VITALS: BP 151/76
[2017-03-19] MEDS ORDERED: BUPIVACAINE 0.5% 30 ML (SENSORCAINE) VIAL ONE (12:03)
[2017-03-19] MEDS ORDERED: LIDOCAINE 1% INJ 20 ML (XYLOCAINE) VIAL ONE (12:03)
[2017-03-19] MEDS ORDERED: LACTATED RINGERS 1,000 ML IV PRN (12:14)
[2017-03-19] MEDS ORDERED: FAMOTIDINE 20MG/2ML IV (PEPCID) IV ONE (12:15)
[2017-03-19] MEDS ORDERED: PROPOFOL INJECTION 50 ML IV ONE ×2 (12:16→12:55)
[2017-03-19] MEDS ORDERED: fentaNYL INJECTION 100 MCG/2 ML AMP ONE (12:16)
[2017-03-19] MEDS ORDERED: LACTATED RINGERS 1,000 ML IV ONE (12:16)
[2017-03-19] MEDS ORDERED: MIDAZOLAM 10 MG/2 ML (VERSED) VIAL ONE (12:16)
--- NOTE | 2017-03-19 12:19 | Progress Note-Pre Operative ---
Pre-Operative Progress Note H&P Reviewed The H&P was reviewed, patient examined and no changes noted. Date H&P Reviewed: March 19, 2017 Time H&P Reviewed: 12:19 Pre-Operative Diagnosis: Osteomyelitis left 4th toe JERMAIN BROWN DPGiacomo March 19, 2017 12:19 pm
[2017-03-19] MEDS ORDERED: morphine INJ 10 MG/ML 1ML (SYR OR VIAL) ONE (12:51)
[2017-03-19] MEDS ORDERED: GENTAMICIN 40 MG/ML 2 ML INJ SDV ONE (12:55)
--- NOTE | 2017-03-19 13:27 | Progress Note-Post Operative ---
Post-Operative Progess Note Surgeon (s)/Circular Ripsaw Operator (s) Surgeon JERMAIN BROWN DPM Circular Ripsaw Operator: none Pre-Operative Diagnosis Osteomyelitis left 4th toe Post-Operative Diagnosis Same Procedure & Operative Findings Date of Procedure 03/19/17 Procedure Performed/Findings Amputation of the right 4th toe Anesthesia Type MAC Estimated Blood Loss Estimated blood loss (mL): Minimal Specimens/Packing Specimens Removed Right 4th toe Packing: None JERMAIN BROWN DPM March 19, 2017 1:27 pm
[2017-03-19] MEDS ORDERED: LACTATED RINGERS 1,000 ML IV SCH (13:34)
[2017-03-19] MEDS ORDERED: HYDR-3812 PO (13:37)
[2017-03-19] MEDS ORDERED: ONDANSETRON 4 MG/2 ML (SDV) Z0FRAN IVP PRN ×2 (13:45)
[2017-03-19] MEDS ORDERED: HYDROcodone/APAP 5 MG/325 MG (LORTAB) TAB PO PRN (13:45)
[2017-03-19] MEDS ORDERED: MEPERIDINE (DEMEROL) INJ 50 MG/ML IVP PRN (13:45)
[2017-03-19] MEDS ORDERED: morphine INJ 10 MG/ML 1ML (SYR OR VIAL) IVP PRN (13:45)
[2017-03-19 14:00] VITALS: BP 121/84
[2017-03-19 14:45] VITALS: BP 118/74
[2017-03-19 14:50] VITALS: BP 118/74
--- NOTE | 2017-03-19 15:09 | OPERATIVE REPORT ---
DATE OF SERVICE: 03/19/2017 SURGEON: Pat Brown DPM PREOPERATIVE DIAGNOSIS: Osteomyelitis, left fourth toe. POSTOPERATIVE DIAGNOSIS: Osteomyelitis, left fourth toe. PROCEDURE: Amputation of left fourth toe. WOUND CLASS: Contaminated. ANESTHESIA: Monitored anesthesia care. HEMOSTASIS: Pneumatic ankle tourniquet at 250 mmHg. INDICATION: The patient presents with an ulceration to the left fourth toe. X-rays demonstrated osteolysis of the distal phalanx, left fourth toe, with fracture fragments. The wound probed down to bone confirming osteomyelitis. The patient is agreeable to surgical intervention after risks and complications were discussed in length. No guarantees were extended to the patient and she is willing to proceed. PROCEDURE: The patient was brought back to the operating table, placed in a secure supine position. The appropriate timeout was performed. A pneumatic ankle tourniquet was placed on the left lower extremity over several layers of padding. The left fourth toe was anesthetized utilizing 10 mL of 0.5% Marcaine injected in a local infusion to the surgical site. The left foot was then prepped and draped in the normal sterile manner. The left foot was then elevated, allowed to exsanguinate after which the tourniquet was inflated to 250 mmHg. Attention was then directed to the dorsal aspect of the left fourth toe where a longitudinal linear incision was created and then diverted medial and laterally, creating a racket type incision around the proximal phalanx of the left fourth toe. The digit was disarticulated at the proximal interphalangeal joint and the distal specimen was sent for gross microscopic evaluation after a rongeur was used to remove a bone specimen through the ulceration distal aspect of the toe. Attention was redirected to the proximal phalanx of the left fourth toe which had no significant bony pathology visualized. Utilizing a power sagittal saw, mid diaphysis and osteotomy was performed and the distal aspect of the proximal phalanx was sent for gross and microscopic evaluation to confirm it was free of pathology. The remaining wound was inspected and found to be free of any necrosis or gross signs of bacterial infection. Power irrigation was then performed with normal saline infused with 80 mg of gentamicin. After this, the wound had a swab culture taken. The only necessary blood vessels were cauterized as encountered. The wound was then closed with minimal skin tension with simple interrupted type stitch with 4-0 Prolene. There is good cap refill time to the edges of the skin at the amputation site. Postoperative dressing consisted of Betadine soaked in Adaptic, sterile 4 x 4s, sterile Kerlix, all secured with Coban wrap. The patient tolerated the anesthesia, procedure well, was transferred from the operating room to the recovery area with vital signs stable and vascular status intact to the amputation site and to left fifth toe. She is to follow up in my office in approximately 10 days' period of time or sooner if necessary. In the meantime, she is to rest, ice and elevate and not change the dressing. Job ID: [id number] DocumentID: [id number] Dictated Date: 03/19/2017 13:34:35 [employer] Date: 03/19/2017 15:09:18 Dictated By: PAT BROWN DPM
== END 2017-03-19 14:50 | disposition home or self-care (01) ==
LOC: SDC 11:30
PROVIDERS: ATTEND Podiatrist Foot & Ankle Surgery
DX: M86.672 Other chronic osteomyelitis, left ankle and foot (principal); E10.42 Type 1 diabetes mellitus with diabetic polyneuropathy; E10.621 Type 1 diabetes mellitus with foot ulcer; I10 Essential (primary) hypertension; E78.5 Hyperlipidemia, unspecified; J45.909 Unspecified asthma, uncomplicated; E66.01 Morbid (severe) obesity due to excess calories; Z68.43 Body mass index [BMI] 50.0-59.9, adult; Z79.4 Long term (current) use of insulin
CPT/HCPCS: 82962; 84703; 87070; 87075; 87081; 87186; 87205

== ENCOUNTER → 2017-08-12 | Outpatient (CLI) | payer MEDICAID ==
--- NOTE | 2017-08-12 11:00 | Diagnostic Imaging Report ---
Bilateral renal ultrasound. INDICATION: Chronic renal disease. FINDINGS: The right kidney is 11.7 cm and the left kidney is 11.6 cm in length. There is no hydronephrosis or focal lesion. The urinary bladder appears unremarkable. The visualized portions of the liver demonstrate increased echogenicity which may relate to hepatitis or fatty infiltration. IMPRESSION: No hydronephrosis. Dictated by: Dictated on workstation # [id number]
== END ==
LOC: RAD 09:11
PROVIDERS: ATTEND Family Medicine
DX: N18.3 Chronic kidney disease, stage 3 (moderate) (principal)
CPT/HCPCS: 76770

== ENCOUNTER → 2018-03-09 | Outpatient (CLI) | payer MEDICAID ==
[~2018-03-09] MED LIST changes: +ACHD5005 PO; -HYDR-3812 PO; -METF1000 PO; +METF10002 PO; +METO50TA15 PO
== END ==
LOC: WOUNDCARE 08:26
PROVIDERS: ATTEND Surgery
DX: E11.621 Type 2 diabetes mellitus with foot ulcer (principal); I70.234 Atherosclerosis of native arteries of right leg with ulceration of heel and midfoot; L97.412 Non-pressure chronic ulcer of right heel and midfoot with fat layer exposed; E11.42 Type 2 diabetes mellitus with diabetic polyneuropathy; Z89.411 Acquired absence of right great toe; Z89.412 Acquired absence of left great toe
CPT/HCPCS: 11042; 87070; 87075; 87077; 87186; 87205

== ENCOUNTER → 2018-03-10 | Outpatient (CLI) | payer MEDICAID ==
--- NOTE | 2018-03-10 15:29 | Diagnostic Imaging Report ---
INDICATION: Pressure ulcer. COMPARISON: 11/19/2014. FINDINGS: Three views of the right foot are obtained. There are postoperative changes of amputation at the level of the distal metatarsal of all five toes. No underlying osseous destructive process is seen to suggest ongoing osteomyelitis. No fracture or malalignment is seen. IMPRESSION: There is no convincing evidence of osteomyelitis. Plain films are insensitive to early osteomyelitis, and if clinical concern persists, MRI or bone scan may be of additional benefit. Dictated by: Dictated on workstation # [id number]
== END ==
LOC: RAD 14:41
PROVIDERS: ATTEND Surgery
DX: E11.621 Type 2 diabetes mellitus with foot ulcer (principal); E11.42 Type 2 diabetes mellitus with diabetic polyneuropathy; L97.412 Non-pressure chronic ulcer of right heel and midfoot with fat layer exposed; I70.234 Atherosclerosis of native arteries of right leg with ulceration of heel and midfoot; Z89.411 Acquired absence of right great toe; Z89.421 Acquired absence of other right toe(s)
CPT/HCPCS: 73630

== ENCOUNTER → 2018-03-14 | Outpatient (CLI) | payer MEDICAID | LOC: WOUNDCARE 13:26 | PROVIDERS: ATTEND Surgery | DX: E11.621 Type 2 diabetes mellitus with foot ulcer (principal); I70.234 Atherosclerosis of native arteries of right leg with ulceration of heel and midfoot; L97.412 Non-pressure chronic ulcer of right heel and midfoot with fat layer exposed; E11.42 Type 2 diabetes mellitus with diabetic polyneuropathy; Z89.411 Acquired absence of right great toe; Z89.421 Acquired absence of other right toe(s) | CPT/HCPCS: 11042 ==

== ENCOUNTER → 2018-03-16 | Outpatient (CLI) | payer MEDICAID | LOC: WOUNDCARE 13:25 | PROVIDERS: ATTEND Surgery | DX: E11.621 Type 2 diabetes mellitus with foot ulcer (principal); E11.42 Type 2 diabetes mellitus with diabetic polyneuropathy; L97.412 Non-pressure chronic ulcer of right heel and midfoot with fat layer exposed; Z89.411 Acquired absence of right great toe; Z89.421 Acquired absence of other right toe(s) | CPT/HCPCS: 29445 ==

== ENCOUNTER → 2018-03-23 | Outpatient (CLI) | payer MEDICAID | LOC: WOUNDCARE 12:23 | PROVIDERS: ATTEND Surgery | DX: E11.621 Type 2 diabetes mellitus with foot ulcer (principal); L97.412 Non-pressure chronic ulcer of right heel and midfoot with fat layer exposed; E11.42 Type 2 diabetes mellitus with diabetic polyneuropathy; Z89.411 Acquired absence of right great toe; Z89.421 Acquired absence of other right toe(s) | CPT/HCPCS: 11042 ==

== ENCOUNTER → 2018-03-30 | Outpatient (CLI) | payer MEDICAID | LOC: WOUNDCARE 13:35 | PROVIDERS: ATTEND Surgery | DX: E11.621 Type 2 diabetes mellitus with foot ulcer (principal); E11.42 Type 2 diabetes mellitus with diabetic polyneuropathy; L97.412 Non-pressure chronic ulcer of right heel and midfoot with fat layer exposed; Z89.411 Acquired absence of right great toe; Z89.421 Acquired absence of other right toe(s) | CPT/HCPCS: 11042 ==

== ENCOUNTER → 2018-04-06 | Outpatient (CLI) | payer MEDICAID | LOC: WOUNDCARE 14:11 | PROVIDERS: ATTEND Surgery | DX: E11.621 Type 2 diabetes mellitus with foot ulcer (principal); E11.42 Type 2 diabetes mellitus with diabetic polyneuropathy; L97.412 Non-pressure chronic ulcer of right heel and midfoot with fat layer exposed; Z89.411 Acquired absence of right great toe; Z89.421 Acquired absence of other right toe(s) | CPT/HCPCS: 11042; 11045 ==

== ENCOUNTER → 2018-04-13 | Outpatient (CLI) | payer MEDICAID | LOC: WOUNDCARE 13:47 | PROVIDERS: ATTEND Surgery | DX: E11.621 Type 2 diabetes mellitus with foot ulcer (principal); L97.412 Non-pressure chronic ulcer of right heel and midfoot with fat layer exposed; E11.42 Type 2 diabetes mellitus with diabetic polyneuropathy; Z89.411 Acquired absence of right great toe; Z89.412 Acquired absence of left great toe | CPT/HCPCS: 11042 ==

== ENCOUNTER → 2018-05-18 | Outpatient (CLI) | payer MEDICAID | LOC: WOUNDCARE 13:48 | PROVIDERS: ATTEND Surgery | DX: E11.621 Type 2 diabetes mellitus with foot ulcer (principal); L97.412 Non-pressure chronic ulcer of right heel and midfoot with fat layer exposed; E11.42 Type 2 diabetes mellitus with diabetic polyneuropathy; Z89.411 Acquired absence of right great toe; Z89.421 Acquired absence of other right toe(s) | CPT/HCPCS: 11042; 87070; 87075; 87077; 87186; 87205 ==

== ENCOUNTER → 2018-05-25 | Outpatient (CLI) | payer MEDICAID | LOC: WOUNDCARE 10:22 | PROVIDERS: ATTEND Surgery | DX: E11.621 Type 2 diabetes mellitus with foot ulcer (principal); L97.412 Non-pressure chronic ulcer of right heel and midfoot with fat layer exposed; E11.42 Type 2 diabetes mellitus with diabetic polyneuropathy; Z89.411 Acquired absence of right great toe; Z89.421 Acquired absence of other right toe(s); L92.8 Other granulomatous disorders of the skin and subcutaneous tissue | CPT/HCPCS: 11042 ==

== ENCOUNTER 2018-08-22 08:28 | Inpatient (IN) | payer MEDICAID ==
[2018-08-22] VITALS (11 sets, daily range): BP systolic 92–156; BP diastolic 39–97
[~2018-08-22] VITALS: Ht 167.6 cm; Wt 164.3 kg
[~2018-08-22 08:28] MED LIST changes: +METF-399 PO; -METF10002 PO
[2018-08-22] MEDS ORDERED: NS IV 1000 ML 1,000 ML IV ONE (08:39)
[2018-08-22] MEDS ORDERED: NS IV 1000 ML 1,000 ML IV SCH (08:39)
[2018-08-22] MEDS ORDERED: fentaNYL INJECTION 100 MCG/2 ML AMP IVP ONE (08:45)
--- OUTSIDE RECORDS SUMMARY | 2018-08-22 08:51 | XMS REPORT ---
Author Author LUDIVINA STEPHANIE [facility] Address [address] [place] [address] Care Team Providers Care Automated Teller Manager Name Role Phone DEE DEE FLORENCEHANY Unavailable PROBLEMS Type Condition ICD9-CM Code FQH50-XC Code Onset Dates Condition Status SNOMED Code Problem Subclinical hypothyroidism E03.9 Active 68516525 Problem Hypertriglyceridemia E78.1 Active 223369696 Problem Type 2 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 Active 071265473 Problem Type 2 diabetes mellitus with diabetic chronic 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 Active 604431598 Problem Other chronic pain G89.29 Active 31039050 Problem Type 2 diabetes mellitus with other skin complications E11.628 Active 32875748 Problem Pain in left foot M79.672 Active 04368676 Problem Irregular menstrual cycle N92.6 Active 33538850 Problem Pain in right foot M79.671 Active 22256689 Problem Tonsillolith J35.8 Active 1211808 Problem Chronic prescription opiate use Z79.891 Active 548755143 Problem Seasonal allergic rhinitis due to pollen J30.1 Active 50868977 Problem Asthma exacerbation, mild J45.901 Active 021799643 Problem Chronic kidney disease, stage III (moderate) N18.3 Active 452259425 Problem Chronic migraine G43.709 Active 74248267 Problem Moderate persistent asthma without complication J45.40 Active 005259468 Problem Intrinsic eczema L20.84 Active 67324227 Problem Severe episode of recurrent major depressive disorder, without psychotic features F33.2 Active 35684207 Problem Non-pressure chronic ulcer of right heel and midfoot limited to breakdown of skin L97.411 Active 697642528 Problem Ulcer of right heel L97.419 Active 712075305 Problem Obesity E66.9 Active 555411357 Problem Type 2 diabetes mellitus with foot ulcer E11.621 Active 36041516 Problem Essential hypertension I10 Active 80534790 Problem Anxiety disorder, unspecified F41.9 Active 288340116 Problem Type 2 diabetes mellitus with other specified complication E11.69 Active 405731767 Problem Status post amputation of toe of left foot Z89.422 Active 169284581 Problem DM neuro manif type II E11.49 Active 27147509 Problem History of amputation of hallux Z89.419 Active 291037451 ALLERGIES No Information ENCOUNTERS Encounter Location Date Diagnosis [facility] [id number] [place] [address] 22040- 6041 07 Jun, 2018 Type 2 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 [facility] [id number] [place] [address] 68193- 2487 27 May, 2018 [place] [address] 86749- 2061 08 May, 2018 [place] [id number] [place] [address] 50316- 7440 May, Nausea R11.0 [place] [address] 66087- 2576 07 May, 2018 Other chronic pain G89.29 and Nausea R11.0 [place] [address] 13100- 3589 May, Left genital labial abscess N76.4 and BMI 60.0-69.9, adult Z68.44 [place] [id number] [place] [address] 55295- 2734 May, [place] [id number] [place] [address] 12643- 6443 Apr, [place] [id number] [place] [address] 79285- 6314 Apr, Chronic migraine G43.709 [place] [id number] [place] [address] 89787- 9712 Apr, [place] [id number] [place] [address] 16300- 8823 Mar, Moderate persistent asthma without complication J45.40 [place] [address] [place] [address] 98600- 9948 Mar, Moderate persistent asthma without complication J45.40 [facility] [id number] [place] [address] 49999- 6215 Mar, [facility] [id number] [place] [address] 43870- 6114 February, Chronic migraine G43.709 [facility] [id number] [place] [address] 32034- 6557 February, Chronic migraine G43.709 [facility] [id number] [place] [address] 66098- 5331 February, [facility] [id number] [place] [address] 51060- 6275 February, [facility] [id number] [place] [address] 26592- 7585 February, Type 2 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 ; Moderate persistent asthma without complication J45.40 ; Type 2 diabetes mellitus with foot ulcer E11.621 ; Non-pressure chronic ulcer of right heel and midfoot limited to breakdown of skin L97.411 ; Chronic migraine G43.709 and BMI 60.0-69.9, adult Z68.44 [facility] [id number] [place] [address] 07964 -4056 Jan, Asthma exacerbation, mild J45.901 ; Seasonal allergic rhinitis due to pollen J30.1 and BMI 60.0-69.9, adult Z68.44 [facility] [id number] [place] [address] 96860- 8064 Jan, [facility] [id number] [place] [address] 31842- 8697 Jan, Other chronic pain G89.29 [facility] [id number] [place] [address] 27011- 2987 Dec, Type 2 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 [place] [address] [place] [address] 51329- 1852 Dec, Type 2 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 [place] [id number] [place] [address] 18028- 0204 15 Dec, 2017 [place] [id number] [place] [address] 79112- 1148 14 Dec, 2017 [place] [id number] [place] [address] 02486- 0541 13 Dec, 2017 Chronic kidney disease, stage III (moderate) N18.3 [facility] [place] [id number] [place] [address] 50096 -6555 09 Dec, 2017 Nausea R11.0 and Diarrhea, unspecified type R19.7 [place] [id number] [place] [address] 66339- 8268 07 Dec, 2017 Chronic kidney disease, stage III (moderate) N18.3 and Type 2 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 [place] [id number] [place] [address] 28051- 7866 Dec, [place] [id number] [place] [address] 67806- 3154 Nov, Ulcer of right heel L97.419 and Type 2 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 [facility] [id number] [place] [address] [id number] Nov, Dental examination Z01.20 [place] [address] [place] [address] 57348- 2205 Nov, Open wound of right foot, initial encounter S91.301A [facility] [id number] [place] [address] 74738 -6830 Nov, Open wound of right foot, initial encounter S91.301A ; Non- intractable vomiting with nausea, unspecified vomiting type R11.2 and BMI 60.0- 69.9, adult Z68.44 [place] [address] [place] [address] 24584- 7061 Nov, [place] [id number] [place] [address] 10529- 1825 Nov, Other chronic pain G89.29 [place] [id number] [place] [address] 06414- 3352 Oct, Cellulitis of right lower limb L03.115 [place] [id number] [place] [address] 36589- 4674 Oct, [place] [id number] [place] [address] 94008- 8663 Oct, [place] [id number] [place] [address] 38451- 6253 Oct, Cat scratch W55.03XA ; Cellulitis of right lower limb L03.115 ; Acute nasopharyngitis J00 ; BMI 60.0-69.9, adult Z68.44 and Cough R05 [place] [id number] [place] [address] 58004- 2895 Oct, Cat scratch W55.03XA ; Cutaneous abscess of right lower extremity L02.415 and Cellulitis of right lower limb L03.115 [place] [address] [place] [address] 74523- 3998 Oct, Type 2 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 [place] [address] [place] [address] 07042- 1394 Oct, Other chronic pain G89.29 [place] [id number] [place] [address] 17010- 4580 Aug, [place] [id number] [place] [address] 39215- 5304 Jul, Other chronic pain G89.29 [place] [id number] [place] [address] 40347- 6415 Jul, [place] [id number] [place] [address] 35983- 0542 Jul, Chronic kidney disease, stage III (moderate) N18.3 [place] [id number] [place] [address] 70222- 5326 04 Jul, 2017 Type 2 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 ; Essential hypertension I10 ; Irregular menstrual cycle N92.6 ; Hypertriglyceridemia E78.1 ; Anxiety disorder, unspecified F41.9 ; Severe episode of recurrent major depressive disorder, without psychotic features F33.2 ; Tonsillolith J35.8 ; Intrinsic eczema L20.84 ; Subclinical hypothyroidism E03.9 ; Viral pharyngitis J02.9 and Encounter for immunization Z23 [place] [id number] [place] [address] 74482- 3633 13 Jun, 2017 Essential hypertension I10 [place] [address] 46775- 0365 08 Jun, 2017 [place] [address] 46978- 7591 07 Jun, 2017 [place] [address] 13530- 9015 May, Moderate persistent asthma without complication J45.40 [place] [id number] [place] [address] 75690- 8948 May, Pain in right foot M79.671 ; Pain in left foot M79.672 ; Other chronic pain G89.29 and Chronic prescription opiate use Z79.891 [place] [id number] [place] [address] 09519- 1744 May, [place] [address] 08358- 5204 May, [place] [id number] [place] [address] 74169- 6471 Apr, [place] [id number] [place] [address] 69616- 4402 Apr, Chronic migraine G43.709 [place] [address] 18570- 5891 Apr, Essential hypertension I10 ; Hypertriglyceridemia E78.1 and Chronic migraine G43.709 [place] [address] 42661- 3615 Apr, [place] [address] 69532- 3423 Apr, Sore throat J02.9 [place] [address] 26950- 7343 Apr, [place] [address] 58312- 6605 Mar, Strep pharyngitis J02.0 and Non-intractable vomiting with nausea, unspecified vomiting type R11.2 [place] [id number] [place] [address] 44008- 7246 Mar, [place] [address] 98031- 7254 Mar, [place] [id number] [place] [address] 13966- 2815 Mar, [place] [id number] [place] [address] 29383- 4747 Mar, Type 2 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 ; Moderate persistent asthma without complication J45.40 ; Status post amputation of toe of left foot Z89.422 ; Acute seasonal allergic rhinitis, unspecified trigger J30.2 and Left shoulder pain, unspecified chronicity M25.512 [place] [id number] [place] [address] 78726- 7389 Mar, [place] [id number] [place] [address] 80091- 3079 February, Pre-op evaluation Z01.818 ; Type 2 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 and Type 2 diabetes mellitus with foot ulcer E11.621 [place] [id number] [address]- 4270 February, [place] [id number] [place] [address] 33404- 2755 February, [place] [id number] [place] [address] 56004- 9187 February, Toe infection L08.9 and Type 2 diabetes mellitus with other specified complication E11.69 [place] [id number] [place] [address] 82247- 0189 February, [place] [id number] [place] [address] 24482- 8147 25 Jan, 2017 Type 2 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 [place] [id number] [place] [address] 01576- 4364 Jan, [place] [id number] [place] [address] 73703- 8824 11 Jan, 2017 Right upper quadrant pain R10.11 and Intractable vomiting with nausea, unspecified vomiting type R11.2 [place] [id number] [place] [address] 95658- 8687 10 Jan, 2017 Hypertriglyceridemia E78.1 and Essential hypertension I10 [place] [id number] [place] [address] 42614- 5580 07 Jan, 2017 Essential hypertension I10 ; Type 2 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 and Hypertriglyceridemia E78.1 [place] [id number] [place] [address] 25298- 2705 16 Dec, 2016 Type 2 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 [place] [address] [place] [address] 32065- 1430 Dec, Hypertriglyceridemia E78.1 ; Essential hypertension I10 ; Type 2 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 ; Anxiety disorder , unspecified F41.9 and Moderate persistent asthma without complication J45.40 [facility] [id number] [place] [address] 03190- 1354 15 Dec, 2016 Type 2 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 [facility] [id number] [place] [address] [id number] Dec, [facility] [address] 20144- 1927 Nov, [place] [id number] [place] [address] 76741- 6427 Nov, [place] [id number] [place] [address] 81610- 0776 Nov, [place] [id number] [place] [address] 74100- 9225 Nov, Toe infection L08.9 [facility] [id number] [place] [address] 68474- 5706 Nov, [facility] [id number] [place] [address] 70949- 1470 Oct, History of amputation of hallux Z89.419 [place] [address] [place] [address] 00148- 5509 Oct, Type 2 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 [facility] [id number] [place] [address] 23346- 0850 Oct, Type 2 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 [facility] [address] [place] [address] 27898- 2763 Oct, Acute osteomyelitis of left foot M86.172 ; Pre-op exam Z01.818 and Type 2 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 [facility] [address] [address]- 4206 Oct, Foot ulcer, left, with unspecified severity L97.529 ; Acute osteomyelitis of left foot M86.172 and Type 2 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 [facility] [id number] [place] [address] 79833- 1564 Sep, [facility] [id number] [place] [address] 74305- 1644 Sep, Intractable vomiting with nausea, unspecified vomiting type R11.2 and Right upper quadrant pain R10.11 [facility] [id number] [place] [address] 31047- 6102 Aug, [facility] [id number] [place] [address] 22615- 4004 Jul, [facility] [id number] [place] [address] 64390- 8563 Jul, Preop examination Z01.818 [facility] [id number] [place] [address] 52172- 6694 Jul, [facility] [id number] [place] [address] 10077- 5897 Jul, [facility] [id number] [place] [address] 75482- 0253 Jul, Chronic osteomyelitis of left foot M86.672 and Ulcer of left foot, with unspecified severity L97.529 [facility] [address] [place] [address] 14991- 7525 Jul, Non-pressure chronic ulcer of other part of left foot with unspecified severity L97.529 [facility] [address] [address]- 9199 Jul, [facility] [id number] [place] [address] 68523- 1918 Jul, [facility] [address] [address]- 1972 Jun, [facility] [address] [address] [address]- 1923 27 Jun, 2016 [facility] [id number] [place] [address] 36272- 9041 Jun, [facility] [id number] [place] [address] 31377- 1167 21 Jun, 2016 Right upper quadrant pain R10.11 [facility] [id number] [place] [address] 66971- 8364 20 Jun, 2016 [facility] [id number] [place] [address] 76683- 1608 19 Jun, 2016 Intractable vomiting with nausea, unspecified vomiting type R11.2 [place] [id number] [place] [address] 32364- 9501 13 Jun, 2016 Right upper quadrant pain R10.11 ; Migraine with aura and with status migrainosus, not intractable G43.101 and Intractable vomiting with nausea, unspecified vomiting type R11.2 [place] [address] [place] [address] 72932- 8946 12 Jun, 2016 [place] [id number] [place] [address] 72955- 1674 06 Jun, 2016 Gastroenteritis K52.9 [facility] [id number] [place] [address] 96641- 5471 May, [place] [id number] [place] [address] 80735- 1527 May, Hypertriglyceridemia E78.1 ; Essential hypertension I10 ; Type 2 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 ; Moderate persistent asthma without complication J45.40 ; Type 2 diabetes mellitus with foot ulcer E11.621 ; Other chronic pain G89.29 ; Pain in right leg M79.604 ; Pain of left leg M79.605 ; Rash and nonspecific skin eruption R21 and Anxiety disorder, unspecified F41.9 [facility] [address] [place] [address] 70546- 1522 May, Essential hypertension I10 ; Hypertriglyceridemia E78.1 ; Upper respiratory infection J06.9 ; Subclinical hypothyroidism E03.9 and Type 2 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 [facility] [id number] [place] [address] 51899- 2210 Apr, Hypertriglyceridemia E78.1 ; Subclinical hypothyroidism E03.9 ; Essential hypertension I10 and Type 2 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 [place] [address] 03822- 6856 Mar, [facility] [id number] [place] [address] 59997- 8828 Mar, Ulcer of right heel L97.419 [place] [address] 41099- 5884 Mar, [place] [id number] [place] [address] 20800- 3177 Mar, [facility] [id number] [place] [address] 64981- 7325 February, [place] [id number] [place] [address] 98153- 7885 February, Ulcer of right heel L97.419 and DM neuro manif type II E11.49 [place] [id number] [place] [address] 89199- 8637 Jan, [facility] [id number] [place] [address] 11471- 1306 Jan, Ulcer of right heel L97.419 ; Type 2 diabetes mellitus with foot ulcer E11.621 and Non-pressure chronic ulcer of other part of left foot with unspecified severity L97.529 [place] [id number] [place] [address] 80025- 7577 Jan, [place] [id number] [place] [address] 14369- 8774 Jan, [place] [address] [place] [address]- 5836 Jan, Infection of toenail L03.039 [facility] [id number] [place] [address] 08673- 4989 Jan, Blister of toe of left foot, initial encounter S90.425A and Type 2 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 [place] [address] 45130- 2441 Jan, [facility] [id number] [place] [address] 11674 -5260 Jan, Sore throat J02.9 and Strep pharyngitis J02.0 [place] [id number] [place] [address] 48294- 1775 Dec, Type 2 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 ; Upper respiratory infection J06.9 ; Cough R05 and Asthma exacerbation J45.901 [place] [id number] [place] [address] 48262- 3606 Oct, [place] [id number] [place] [address] 29920- 6133 Oct, [place] [id number] [place] [address] 77566- 3278 Oct, [place] [id number] [place] [address] 61930- 6948 Oct, [place] [id number] [place] [address] 61707- 4269 Sep, [place] [id number] [place] [address] 94195- 8945 Aug, Anxiety disorder, unspecified F41.9 and Obesity E66.9 [place] [id number] [place] [address] 43831- 2127 Aug, Moderate persistent asthma without complication J45.40 [place] [id number] [place] [address] 86182- 3760 Aug, Anxiety disorder, unspecified F41.9 [place] [id number] [place] [address] 51796- 6679 Aug, Chronic migraine G43.709 ; Encounter for immunization Z23 ; Hypertriglyceridemia E78.1 ; Type 2 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 ; Moderate persistent asthma without complication J45.40 and Morbid obesity E66.01 [place] [address] 97430- 3216 Jul, [place] [id number] [place] [address] 31049- 6628 Jul, [place] [id number] [place] [address] 17265- 3491 Jul, [place] [id number] [place] [address] 29701- 5628 Jul, Subclinical hypothyroidism E03.9 [place] [id number] [place] [address] 42228- 5634 Jun, Essential hypertension, benign 401.1 ; Diabetic ulcer of lower extremity 250.80 ; Asthma 493.90 ; Diabetes mellitus type II, uncontrolled 250.02 and Hyperlipidemia associated with type 2 diabetes mellitus 250.80 [place] [id number] [place] [address] 84521- 6995 Jun, [place] [id number] [place] [address] [phone]- 0943 Jun, [place] [id number] [place] [address] 64123- 2436 May, [address] [address]- [address] Apr, [place] [id number] [place] [address] 01530- 0612 Apr, Viral upper respiratory infection 465.9 and Asthma 493.[address] [place] [address]- [address] Mar, Abnormal ankle brachial index 796.4 [facility] [id number] [place] [address] 32623- 3412 February, [facility] [id number] [place] [address] 38204- 1169 February, Essential hypertension, benign 401.1 [facility] [id number] [place] [address] 57530- 0767 February, Diabetic peripheral neuropathy 250.60 ; Ulcer of heel and midfoot 707.14 and Decreased pedal pulses 785.9 [facility] [id number] [place] [address] 57332- 1622 February, [facility] [id number] [place] [address] 63149- 8923 February, [facility] [id number] [place] [address] 31544- 9409 Jan, [facility] [id number] [place] [address] 17480- 4004 Jan, [facility] [id number] [place] [address]- 2988 Dec, [facility] [id number] [address] 85[address] Dec, [facility] [id number] [place] [address] 69847- 4906 Nov, [facility] [id number] [place] [address] 84683- 3190 Nov, [facility] [id number] [place] [address] 70231- 0509 Nov, [facility] [id number] [address] 0353 Nov, [facility] [id number] [place] [address] 93542- 0985 Nov, [facility] [place] [facility] [address] [id number] [place] [address]- 6260 Nov, [facility] [place] [facility] [address] [id number] [place] [address]- 0867 Nov, [facility] [place] [facility] [address] [id number] [place] [address]- 4978 Nov, [facility] [place] [facility] [address] [id number] [place] [address]- 2873 Nov, [facility] [place] [facility] [address] [id number] [place] [address]- 2091 Oct, [facility] [place] [facility] [address] [id number] [place] [address]- 5482 Oct, [facility] [place] [facility] [address] [id number] [place] [address]- 7360 Oct, [facility] [place] [facility] [address] [id number] [place] [address]- 6646 Oct, [facility] [place] [facility] [address] [id number] [place] [address]- 2190 Oct, [facility] [place] [facility] [address] [id number] [place] [address]- 6772 Oct, [facility] [place] [facility] [address] [id number] [address]- 3[address] Oct, [facility] [place] [facility] [address] [id number] [place] [address]- 8888 Oct, [facility] [place] [facility] [address] [id number] [place] [address]- 6313 Oct, [facility] [place] [facility] [address] [id number] [place] [address]- 6517 Oct, [facility] [place] [facility] [address] [id number] [place] [address]- 9661 Oct, [facility] [place] [facility] [address] [id number] [place] [address]- 7922 Oct, [facility] [place] [facility] [address] [id number] [place] [address]- 4912 Oct, [facility] [place] [facility] [address] [id number] [place] [address]- 7576 Sep, [facility] [place] [facility] [address] [id number] [place] [address]- 3846 Sep, [facility] [place] [facility] [address] [id number] [place] [address]- 4988 Sep, [facility] [place] [facility] [address] [id number] [place] [address]- 0552 Sep, [facility] [place] [facility] [address] [id number] [place] [address]- 0851 Sep, [facility] [place] [facility] [address] [id number] [place] [address]- 5121 Sep, [facility] [place] [facility] [address] [id number] [place] [address]- 5232 Sep, [facility] [place] [facility] [address] [id number] [place] [address]- 7337 Sep, [facility] [place] [facility] [address] [id number] [place] [address]- 0539 Sep, [facility] [place] [facility] [address] [id number] [place] [address]- 9446 Sep, [facility] [place] [facility] [address] [id number] [place] [address]- 2687 Sep, [facility] [place] [facility] [address] [id number] [place] [address]- 3326 Sep, [facility] [place] [facility] [address] [id number] [place] [address]- 9636 Sep, [facility] [place] [facility] [address] [id number] [place] [address]- 9996 Sep, [facility] [place] [facility] [address] [id number] [place] [address]- 0106 Sep, [facility] [place] [facility] [address] [id number] [place] [address]- 8091 Sep, [facility] [place] [facility] [address] [id number] [place] [address]- 9093 Aug, [facility] [place] [facility] [address] [id number] [place] [address]- 6402 Aug, [facility] [place] [facility] [address] [id number] [place] [address]- 8792 Aug, [facility] [place] [facility] [address] [id number] [place] [address]- 7183 Aug, [facility] [place] [facility] [address] [id number] [place] [address]- 8633 Aug, [facility] [place] [facility] [address] [id number] [place] [address]- 2237 Aug, [facility] [place] [facility] [address] [id number] [place] [address]- 7160 Aug, [facility] [place] [facility] [address] [id number] [place] [address]- 7575 Aug, [facility] [place] [facility] [address] [id number], [place] [address]- 4568 Jul, [facility] [place] [facility] [address] [id number] [address]- 7088 31 Jul, 2014 [facility] [place] [facility] [address] [id number] [place] [address]- 2126 30 Jul, 2014 [facility] [place] [facility] [address] [id number] [address]- 4531 15 Jul, 2014 [facility] [place] [facility] [address] [id number], [place] [address]- 7947 Jul, [facility] [place] [facility] [address] [id number] [place] [address]- 7132 Jun, [facility] [place] [facility] [address] [id number] [place] [address]- 5010 Jun, [facility] [place] [facility] [address] [id number] [place] [address]- 5186 Jun, [facility] [place] [facility] [address] [id number] [place] [address]- 5701 Jun, [facility] [place] [facility] [address] [id number] [place] [address]- 9893 Jun, [facility] [place] [facility] [address] [id number] [place] [address]- 4202 May, [facility] [place] [facility] [address] [id number] [place] [address]- 8516 May, [facility] [place] [facility] [address] [id number] [place] [address]- 1346 Apr, [facility] [place] [facility] [address] [id number] [place] [address]- 9661 Apr, [facility] [place] [facility] [address] [id number] [place] [address]- 0566 Apr, [facility] [place] [facility] [address] [id number] [place] [address]- 9787 Apr, [facility] [place] [facility] [address] [id number] [place] [address]- 7133 Apr, [facility] [place] [facility] [address] [id number] [place] [address]- 2561 Apr, [facility] [place] [facility] [address] [id number] [place] [address]- 5605 Mar, [facility] [place] [facility] [address] [id number] [place] [address]- 4972 Mar, [facility] [place] [facility] [address] [id number] [place] [address]- 2298 Mar, [facility] [place] [facility] [address] [id number] [place] [address]- 6822 Mar, [facility] [place] [facility] [address] [id number] [place] [address]- 8771 Mar, [facility] [place] [facility] [address] [id number] [place] [address]- 5251 Mar, [facility] [place] [facility] [address] [id number] [place] [address]- 7703 Mar, [facility] [place] [facility] [address] [id number] [place] [address]- 5571 Mar, [facility] [place] [facility] [address] [id number] [place] [address]- 9641 Mar, [facility] [place] [facility] [address] [id number] [place] [address]- 6730 Mar, [facility] [place] [facility] [address] [id number] [place] [address]- 5193 Mar, [facility] [place] [facility] [address] [id number] [place] [address]- 1625 Mar, [facility] [place] [facility] [address] [id number] [place] [address]- 7011 Mar, [facility] [place] [facility] [address] [id number] [place] [address]- 4716 Mar, [facility] [place] [facility] [address] [id number] [place] [address]- 8915 Mar, [facility] [place] [facility] [address] [id number] [place] [address]- 3425 Mar, [facility] [place] [facility] [address] [id number] [place] [address]- 2502 February, [facility] [place] [facility] [address] [id number] [place] [address]- 3500 February, [facility] [place] [facility] [address] [id number] [place] [address]- 5762 February, [facility] [place] [facility] [address] [id number] [place] [address]- 9063 February, [facility] [place] [facility] [address] [id number] [place] [address]- 6420 February, [facility] [place] [facility] [address] [id number] [place] [address]- 3833 February, [facility] [place] [facility] [address] [id number] [place] [address]- 1360 February, [facility] [place] [facility] [address] [id number] [place] [address]- 0557 February, [facility] [place] [facility] [address] [id number] [place] [address]- 8422 Jan, [facility] [place] [facility] [address] [id number] [place] [address]- 1217 Jan, [facility] [place] [facility] [address] [id number] [place] [address]- 8918 Dec, [facility] [place] [facility] [address] [id number] [place] [address]- 8615 Dec, [facility] [place] [facility] [address] [id number] [place] [address]- 0864 Dec, [facility] [place] [facility] [address] [id number] [place] [address]- 2836 Dec, [facility] [place] [facility] [address] [id number] [place] [address]- 5122 Dec, [facility] [place] [facility] [address] [id number] [place] [address]- 5932 Dec, [facility] [place] [facility] [address] [id number] [place] [address]- 9254 Dec, [facility] [place] [facility] [address] [id number] [place] [address]- 7885 Dec, [facility] [place] [facility] [address] [id number] [place] [address]- 2270 17 Dec, 2013 [facility] [address] [id number] [place] [address]- 3664 17 Dec, 2013 [facility] [place] [facility] [address] [id number] [place] [address]- 3496 14 Dec, 2013 [facility] [address] [id number] [place] [address]- 7806 14 Dec, 2013 [facility] [place] [facility] [address] [id number] [place] [address]- 4312 Dec, [facility] [address] [id number] [place] [address]- 5294 Dec, [facility] [address] [id number] [place] [address]- 6556 Nov, [facility] [place] [facility] [address] [id number] [place] [address]- 1583 Nov, [facility] [address] [id number] [place] [address]- 3336 Oct, [facility] [place] [facility] [address] [id number] [place] [address]- 1895 Oct, [facility] [address] [id number] [place] [address]- 4824 Oct, [facility] [place] [facility] [address] [id number] [place] [address]- 5609 Oct, [facility] [place] [facility] [address] [id number] [place] [address]- 9656 Oct, [facility] [place] [facility] [address] [id number] [place] [address]- 2344 Oct, [facility] [place] [facility] [address] [id number] [place] [address]- 1036 Oct, [facility] [place] [facility] [address] [id number] [id number] [address]707 Sep, [facility] [address] [id number] [place] [address]- 0769 30 Sep, 2013 [facility] [place] [facility] [address] [id number] [place] [address]- 1196 Sep, [facility] [place] [facility] [address] [id number] [place] [address]- 6825 Sep, [facility] [place] [facility] [address] [id number] [place] [address]- 2646 Sep, [facility] [place] [facility] [address] [id number] [place] [address]- 6186 Sep, [facility] [place] [facility] [address] [id number] [place] [address]- 4060 Sep, [facility] [place] [facility] [address] [id number] [place] [address]- 0530 Sep, [facility] [place] [facility] [address] [id number] [place] [address]- 8744 Sep, [facility] [place] [facility] [address] [id number] [place] [address]- 0306 Sep, [facility] [place] [facility] [address] [id number] [place] [address]- 8164 Sep, [facility] [place] [facility] [address] [id number] [place] [address]- 7777 Sep, [facility] [place] [facility] [address] [id number] [place] [address]- 0858 16 Sep, 2013 [facility] [place] [facility] [address] [id number] [place] [address]- 1946 16 Sep, 2013 [facility] [place] [facility] [address] [id number] [place] 2712 Sep, [facility] [place] [facility] [address] [id number] [place] 0319 Sep, [facility] [place] [facility] [address] [id number] [place] [address]- 5205 Sep, [facility] [address] [id number] [place] [address]- 6383 Sep, [facility] [place] [facility] [address] [id number] [place] [address]- 2619 Sep, [facility] [address] [id number] [place] [address]- 0322 Aug, [facility] [place] [facility] [address] [id number] [place] [address]- 2652 Aug, [facility] [address] [id number] [place] [address]- 6738 Aug, [facility] [place] [facility] [address] [id number] [place] [address]- 3400 Aug, [facility] [address] [id number] [place] [address]- 1812 Aug, [facility] [place] [facility] [address] [id number] [place] [address]- 9458 Aug, [facility] [address] [id number] [place] [address]- 0445 Aug, [facility] [place] [facility] [address] [id number] [place] [address]- 3776 Aug, [facility] [address] [id number] [place] [address]- 2851 Aug, [facility] [place] [facility] [address] [id number], [place] [address]- 4367 Aug, [facility] [place] [facility] [address] [id number], [place] [address]- 6625 Aug, [facility] [place] [facility] [address] [id number], [place] [address]- 0170 Aug, [facility] [place] [facility] [address] [id number], [place] [address]- 9313 Aug, [facility] [place] [facility] [address] [id number] [place] [address]- 1170 Aug, [facility] [place] [facility] [address] [id number] [place] [address]- 8142 Aug, [facility] [place] [facility] [address] [id number] [place] [address]- 3629 Aug, [facility] [place] [facility] [address] [id number] [place] [address]- 8664 Aug, [facility] [place] [facility] [address] [id number] [place] [address]- 0439 Jul, [facility] [place] [facility] [address] [id number] [place] [address]- 3718 Jul, [facility] [place] [facility] [address] [id number] [place] [address]- 6705 Jul, [facility] [place] [facility] [address] [id number] [place] [address]- 0951 Jul, [facility] [place] [facility] [address] [id number] [place] [address]- 0905 Jul, [facility] [place] [facility] [address] [id number] [place] [address]- 8803 Jul, [facility] [place] [facility] [address] [id number] [place] [address]- 2087 Jul, [facility] [place] [facility] [address] [id number] [place] [address]- 7103 27 Jun, 2012 [facility] [place] [facility] [address] [id number] [place] [address] 2547 20 Sep, 2012 [facility] [place] [facility] [address] [id number] [place] [address] 2546 17 Sep, 2012 [facility] [place] [facility] [address] [id number] [place] [address]- 2549 10 Sep, 2012 [facility] [place] [facility] [address] [id number] [place] [address]- 6594 Jun, [facility] [address] [id number] [address]- 6740 Jun, [facility] [address] [facility] [id number], [place] [address]- 0789 Jun, [facility] [address] [id number], [place] [address]- 1918 Jun, [facility] [address] [facility] [id number], [place] [address]- 4082 May, [facility] [address] [facility] [id number], [place] [address]- 6037 May, [facility] [id number], [place] [address]- 8369 May, [facility] [id number], [place] [address]- 8118 May, [facility] [id number], [place] [address]- 1990 May, [facility] [address] [id number], [place] [address]- 6783 May, [facility] [id number], [place] [address]- 7959 May, [facility] [address] [id number], [place] [address]- 0424 May, IMMUNIZATIONS No Known Immunizations SOCIAL HISTORY Never Assessed REASON FOR VISIT Requests return call PLAN OF CARE VITAL SIGNS MEDICATIONS Medication Instructions Dosage Frequency Start Date End Date Duration Status Levemir Flexpen 100 UNIT/ML subcutaneously 2 times a day 50 units 12h Active NovoLog Flexpen 100 UNIT/ML Subcutaneous 3 times a day 30 units 8h Active RESULTS No Results PROCEDURES No Known procedures INSTRUCTIONS MEDICATIONS ADMINISTERED No Known Medications MEDICAL (GENERAL) HISTORY Type Description Date Medical History type I diabetes Medical History hypertension Medical History hyperlipidemia Medical History asthma Medical History migraine headaches Medical History allergic rhinitis Medical History neuropathy Medical History Chronic osteomyelitis, site unspecified Medical History 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 [facility] 1995 [facility] Surgical History exploratory laparoscopy [facility] 1995 Surgical History amputation, toe (R great) Surgical History amputation, (R forefoot) 2015 Surgical History amputation, toe Left second 12/2016 Surgical History amputation, 4th left toe 02/2017 Hospitalization History Left foot cellulitis, left 2nd toe amputation-[facility] 12/23 Hospitalization History Surgery Hospitalizations
--- OUTSIDE RECORDS SUMMARY | 2018-08-22 08:52 | XMS REPORT ---
Author Author LUDIVINA STEPHANIE [facility] Address [address] [place] [address] Care Team Providers Care Workers Compensation Claims Assistant Name Role Phone FARNAZ FLORENCEY Unavailable PROBLEMS Type Condition ICD9-CM Code IBM60-EF Code Onset Dates Condition Status SNOMED Code Problem Subclinical hypothyroidism E03.9 Active 83443009 Problem Hypertriglyceridemia E78.1 Active 816011216 Problem Type 2 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 Active 139015953 Problem Type 2 diabetes mellitus with diabetic chronic 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 Active 560563550 Problem Other chronic pain G89.29 Active 14010355 Problem Type 2 diabetes mellitus with other skin complications E11.628 Active 00322965 Problem Pain in left foot M79.672 Active 91700767 Problem Irregular menstrual cycle N92.6 Active 35725970 Problem Pain in right foot M79.671 Active 41800757 Problem Tonsillolith J35.8 Active 5229177 Problem Chronic prescription opiate use Z79.891 Active 161439131 Problem Seasonal allergic rhinitis due to pollen J30.1 Active 13964845 Problem Asthma exacerbation, mild J45.901 Active 554244485 Problem Chronic kidney disease, stage III (moderate) N18.3 Active 768916893 Problem Chronic migraine G43.709 Active 75129306 Problem Moderate persistent asthma without complication J45.40 Active 654516187 Problem Intrinsic eczema L20.84 Active 38358715 Problem Severe episode of recurrent major depressive disorder, without psychotic features F33.2 Active 57067706 Problem Non-pressure chronic ulcer of right heel and midfoot limited to breakdown of skin L97.411 Active 270212276 Problem Ulcer of right heel L97.419 Active 690360783 Problem Obesity E66.9 Active 206384463 Problem Type 2 diabetes mellitus with foot ulcer E11.621 Active 51631439 Problem Essential hypertension I10 Active 44688323 Problem Anxiety disorder, unspecified F41.9 Active 925783991 Problem Type 2 diabetes mellitus with other specified complication E11.69 Active 732168118 Problem Status post amputation of toe of left foot Z89.422 Active 894457604 Problem DM neuro manif type II E11.49 Active 20602816 Problem History of amputation of hallux Z89.419 Active 926862568 ALLERGIES No Information ENCOUNTERS Encounter Location Date Diagnosis [facility] [address] [address]- [address] 28 Jun, 2018 [facility] [address] [address]28- 5894 26 Jun, 2018 [facility] [address] 53127- 2094 07 Jun, 2018 Type 2 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 [place] [id number] [address]- 7175 27 May, 2018 [place] [address] 8[address]80- 8700 May, [facility] [address] 05939- 6450 May, Nausea R11.0 [place] [address] 86086- 5352 May, Other chronic pain G89.29 and Nausea R11.0 [facility] [address] 45796- 1483 May, Left genital labial abscess N76.4 and BMI 60.0-69.9, adult Z68.44 [place] [address] 23005- 5643 May, [place] [address] 58956- 7487 Apr, [place] [address] 82582- 8148 Apr, Chronic migraine G43.709 [place] [address] 75642- 9535 Apr, [facility] [address] [place] [id number] [place] [address] 27033- 1274 Mar, Moderate persistent asthma without complication J45.40 [facility] [address] [place] [id number] [place] [address] 15192- 4024 Mar, Moderate persistent asthma without complication J45.40 [facility] [address] [place] [id number] [place] [address] 68626- 2953 Mar, [facility] [address] [place] [id number] [place] [address] 71871- 6108 February, Chronic migraine G43.709 [facility] [address] [place] [id number] [place] [address] 02271- 7276 February, Chronic migraine G43.709 [facility] [address] [place] [id number] [place] [address] 41804- 6745 February, [facility] [address] [id number] [place] [address] 04756- 4197 February, [facility] [address] [place] [id number] [place] [address] 30936- 6959 February, Type 2 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 ; Moderate persistent asthma without complication J45.40 ; Type 2 diabetes mellitus with foot ulcer E11.621 ; Non-pressure chronic ulcer of right heel and midfoot limited to breakdown of skin L97.411 ; Chronic migraine G43.709 and BMI 60.0-69.9, adult Z68.44 [facility] [id number] [place] [address] 06020 -9440 Jan, Asthma exacerbation, mild J45.901 ; Seasonal allergic rhinitis due to pollen J30.1 and BMI 60.0-69.9, adult Z68.44 [facility] [address] [address] Jan, [facility] [address] [place] [id number] [place] [address] 86518- 9892 Jan, Other chronic pain G89.29 [place] [address] [place] [id number] [place] [address] 50629- 2327 30 Dec, 2017 Type 2 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 [place] [address] [place] [id number] [place] [address] 34772- 1254 19 Dec, 2017 Type 2 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 [place] [address] 89608- 7847 15 Dec, 2017 [place] [address] [place] [id number] [place] [address] 26999- 6347 14 Dec, 2017 [place] [address] 49820- 0856 13 Dec, 2017 Chronic kidney disease, stage III (moderate) N18.3 [facility] [address] 88457 -0013 09 Dec, 2017 Nausea R11.0 and Diarrhea, unspecified type R19.7 [place] [address] [place] [id number] [place] [address] 05559- 2259 07 Dec, 2017 Chronic kidney disease, stage III (moderate) N18.3 and Type 2 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 [place] [address] [place] [id number] [place] [address] 78492- 2349 Dec, [place] [address] 75259- 5030 Nov, Ulcer of right heel L97.419 and Type 2 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 [facility] [address] [id number] Nov, Dental examination Z01.20 [place] [address] [place] [id number] [place] [address] 86210- 0061 Nov, Open wound of right foot, initial encounter S91.301A [facility] [address] [id number] [place] [address] 27949 -4781 Nov, Open wound of right foot, initial encounter S91.301A ; Non- intractable vomiting with nausea, unspecified vomiting type R11.2 and BMI 60.0- 69.9, adult Z68.44 [place] [address] [place] [id number] [place] [address] 24072- 4111 Nov, [place] [address] 15561- 3093 Nov, Other chronic pain G89.29 [place] [address] 22899- 3203 Oct, Cellulitis of right lower limb L03.115 [place] [address] 95830- 3506 Oct, [place] [address] 21503- 8864 Oct, [place] [address] [place] [id number] [place] [address] 47888- 4799 Oct, Cat scratch W55.03XA ; Cellulitis of right lower limb L03.115 ; Acute nasopharyngitis J00 ; BMI 60.0-69.9, adult Z68.44 and Cough R05 [place] [address] [place] [id number] [place] [address] 84946- 7631 Oct, Cat scratch W55.03XA ; Cutaneous abscess of right lower extremity L02.415 and Cellulitis of right lower limb L03.115 [place] [address] [place] [id number] [place] [address] 78320- 1293 Oct, Type 2 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 [place] [address] 29465- 4365 Oct, Other chronic pain G89.29 [place] [address] 69909- 0768 Aug, [place] [address] [place] [id number] [place] [address] 87418- 7474 Jul, Other chronic pain G89.29 [place] [address] 25999- 7447 Jul, [place] [address] 88378- 3003 Jul, Chronic kidney disease, stage III (moderate) N18.3 [place] [address] 21571- 0704 04 Jul, 2017 Type 2 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 ; Essential hypertension I10 ; Irregular menstrual cycle N92.6 ; Hypertriglyceridemia E78.1 ; Anxiety disorder, unspecified F41.9 ; Severe episode of recurrent major depressive disorder, without psychotic features F33.2 ; Tonsillolith J35.8 ; Intrinsic eczema L20.84 ; Subclinical hypothyroidism E03.9 ; Viral pharyngitis J02.9 and Encounter for immunization Z23 [place] [address] [place] [id number] [place] [address] 55642- 8639 13 Jun, 2017 Essential hypertension I10 [place] [id number] [place] [address] 99000- 6187 08 Jun, 2017 [place] [address] [place] [id number] [place] [address] 97127- 6049 Jun, [place] [address] [place] [id number] [place] [address] 90236- 8726 May, Moderate persistent asthma without complication J45.40 [place] [address] 73335- 2878 May, Pain in right foot M79.671 ; Pain in left foot M79.672 ; Other chronic pain G89.29 and Chronic prescription opiate use Z79.891 [place] [address] [place] [id number] [place] [address] 93737- 3221 May, [place] [address] [place] [id number] [place] [address] 33264- 5538 May, [place] [address] [place] [id number] [place] [address] 48797- 5691 Apr, [place] [address] [place] [id number] [place] [address] 16301- 0474 Apr, Chronic migraine G43.709 [place] [address] 36735- 4897 Apr, Essential hypertension I10 ; Hypertriglyceridemia E78.1 and Chronic migraine G43.709 [place] [address] [place] [id number] [place] [address] 35467- 2153 Apr, [place] [address] [place] [id number] [place] [address] 03052- 3425 Apr, Sore throat J02.9 [place] [id number] [place] [address] 83809- 8587 Apr, [place] [address] [place] [id number] [place] [address] 03433- 6265 Mar, Strep pharyngitis J02.0 and Non-intractable vomiting with nausea, unspecified vomiting type R11.2 [place] [id number] [place] [address] 99227- 6895 Mar, [place] [address] [place] [id number] [place] [address] 40646- 6612 Mar, [place] [address] [place] [id number] [place] [address] 63116- 5902 Mar, [place] [address] [place] [id number] [place] [address] 09572- 8701 Mar, Type 2 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 ; Moderate persistent asthma without complication J45.40 ; Status post amputation of toe of left foot Z89.422 ; Acute seasonal allergic rhinitis, unspecified trigger J30.2 and Left shoulder pain, unspecified chronicity M25.512 [place] [id number] [address]- 0635 Mar, [place] [address] [place] [id number] [place] [address] 70682- 5989 February, Pre-op evaluation Z01.818 ; Type 2 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 and Type 2 diabetes mellitus with foot ulcer E11.621 [place] [address] [place] [id number] [place] [address] 54606- 6065 February, [place] [address] [place] [id number] [place] [address] 47463- 1707 February, [place] [address] [place] [id number] [place] [address] 23338- 0177 February, Toe infection L08.9 and Type 2 diabetes mellitus with other specified complication E11.69 [place] [address] [place] [id number] [place] [address] 32411- 8104 February, [place] [address] [place] [id number] [place] [address] 05449- 4665 Jan, Type 2 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 [place] [address] [place] [id number] [place] [address] 41134- 9141 Jan, [place] [address] [place] [id number] [place] [address] 75836- 8033 Jan, Right upper quadrant pain R10.11 and Intractable vomiting with nausea, unspecified vomiting type R11.2 [place] [address] [place] [address] 06424- 3659 Jan, Hypertriglyceridemia E78.1 and Essential hypertension I10 [place] [address] [place] [id number] [place] [address] 09360- 6801 07 Jan, 2017 Essential hypertension I10 ; Type 2 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 and Hypertriglyceridemia E78.1 [place] [address] [place] [id number] [place] [address] 03760- 7366 Dec, Type 2 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 [facility] [address] [address]- 3578 Dec, Hypertriglyceridemia E78.1 ; Essential hypertension I10 ; Type 2 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 ; Anxiety disorder , unspecified F41.9 and Moderate persistent asthma without complication J45.40 [facility] [address] [place] [id number] [place] [address] 98321- 3529 Dec, Type 2 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 [facility] [address] [place] [id number] [place] [address] [id number] Dec, [facility] [address] [place] [id number] [place] [address] 75809- 5661 Nov, [facility] [address] [place] [id number] [place] [address] 70639- 7240 Nov, [facility] [address] [place] [id number] [place] [address] 92157- 3544 Nov, [facility] [address] [place] [id number] [place] [address] 76556- 8173 Nov, Toe infection L08.9 [facility] [address] [place] [id number] [place] [address] 71918- 0750 Nov, [facility] [id number] [place] [address] 79495- 5842 Oct, History of amputation of hallux Z89.419 [facility] [address] [place] [address] 79905- 1862 Oct, Type 2 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 [facility] [address] [place] [id number] [place] [address] 79929- 3458 Oct, Type 2 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 [facility] [address] [address]- 1614 Oct, Acute osteomyelitis of left foot M86.172 ; Pre-op exam Z01.818 and Type 2 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 [facility] [address] [place] [id number] [place] [address] 51568- 2058 Oct, Foot ulcer, left, with unspecified severity L97.529 ; Acute osteomyelitis of left foot M86.172 and Type 2 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 [facility] [address] [place] [id number] [place] [address] 12645- 5015 Sep, [facility] [address] [place] [id number] [place] [address] 05629- 9829 Sep, Intractable vomiting with nausea, unspecified vomiting type R11.2 and Right upper quadrant pain R10.11 [facility] [address] [place] [id number] [place] [address] 60187- 9254 Aug, [place] [address] [place] [id number] [place] [address] 77472- 5240 Jul, [facility] [address] [place] [id number] [place] [address] 32045- 8616 Jul, Preop examination Z01.818 [facility] [address] [place] [id number] [place] [address] 61704- 8853 Jul, [facility] [address] [place] [id number] [place] [address] 86895- 0831 Jul, [facility] [address] [place] [id number] [place] [address] 97876- 8648 Jul, Chronic osteomyelitis of left foot M86.672 and Ulcer of left foot, with unspecified severity L97.529 [place] [address] [place] [id number] [place] [address] 28762- 5199 Jul, Non-pressure chronic ulcer of other part of left foot with unspecified severity L97.529 [facility] [address] [place] [id number] [place] [address] 65489- 2346 Jul, [facility] [address] [place] [address] [address] [address]- 3941 Jul, [facility] [address] [place] [id number] [place] [address] 01925- 8679 28 Jun, 2016 [facility] [address] [place] [id number] [place] [address] 63795- 6751 Jun, [facility] [address] [place] [id number] [place] [address] 26845- 7314 Jun, [facility] [address] [place] [id number] [place] [address] 00249- 5501 Jun, Right upper quadrant pain R10.11 [facility] [address] [place] [id number] [place] [address] 62539- 1095 Jun, [facility] [address] [place] [id number] [place] [address] 23867- 9874 Jun, Intractable vomiting with nausea, unspecified vomiting type R11.2 [facility] [address] [place] [id number] [place] [address] 53406- 6046 13 Jun, 2016 Right upper quadrant pain R10.11 ; Migraine with aura and with status migrainosus, not intractable G43.101 and Intractable vomiting with nausea, unspecified vomiting type R11.2 [facility] [address] [place] [address] 78929- 1083 12 Jun, 2016 [facility] [address] [place] [id number] [place] [address] 27477- 8674 Jun, Gastroenteritis K52.9 [facility] [address] [place] [address] 29676- 0449 May, [facility] [address] [place] [id number] [place] [address] 33108- 6957 May, Hypertriglyceridemia E78.1 ; Essential hypertension I10 ; Type 2 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 ; Moderate persistent asthma without complication J45.40 ; Type 2 diabetes mellitus with foot ulcer E11.621 ; Other chronic pain G89.29 ; Pain in right leg M79.604 ; Pain of left leg M79.605 ; Rash and nonspecific skin eruption R21 and Anxiety disorder, unspecified F41.9 [place] [address] [place] [id number] [place] [address] 80357- 0352 May, Essential hypertension I10 ; Hypertriglyceridemia E78.1 ; Upper respiratory infection J06.9 ; Subclinical hypothyroidism E03.9 and Type 2 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 [place] [address] 26055- 0230 Apr, Hypertriglyceridemia E78.1 ; Subclinical hypothyroidism E03.9 ; Essential hypertension I10 and Type 2 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 [place] [address] 08667- 0633 Mar, [place] [address] 05728- 4897 Mar, Ulcer of right heel L97.419 [place] [address] [place] [id number] [place] [address] 48383- 1480 Mar, [place] [address] 28414- 4093 Mar, [place] [address] [place] [id number] [place] [address] 95439- 0865 February, [place] [address] [place] [id number] [place] [address] 15035- 1543 February, Ulcer of right heel L97.419 and DM neuro manif type II E11.49 [facility] [address] [place] [id number] [place] [address] 99623- 3738 Jan, [facility] [address] 24410- 7895 Jan, Ulcer of right heel L97.419 ; Type 2 diabetes mellitus with foot ulcer E11.621 and Non-pressure chronic ulcer of other part of left foot with unspecified severity L97.529 [place] [address] [place] [address]- 4591 Jan, [facility] [address] [place] [id number] [place] [address] 36253- 0543 Jan, [facility] [address] [place] [id number] [place] [address] 12341- 2156 Jan, Infection of toenail L03.039 [facility] [address] [place] [id number] [place] [address] 03524- 8402 14 Jan, 2016 Blister of toe of left foot, initial encounter S90.425A and Type 2 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 [facility] [address] [place] [id number] [place] [address] 11310- 5332 Jan, [facility] [id number] [place] [address] 59696 -4376 Jan, Sore throat J02.9 and Strep pharyngitis J02.0 [facility] [address] [place] [id number] [place] [address] 88702- 5495 Dec, Type 2 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 ; Upper respiratory infection J06.9 ; Cough R05 and Asthma exacerbation J45.901 [facility] [address] [place] [address] 10230- 9985 Oct, [facility] [id number] [place] [address] 16765- 4834 Oct, [facility] [address] [place] [id number] [place] [address] 07287- 5134 Oct, [facility] [address] [place] [address] 36263- 4032 Oct, [facility] [address] [place] [address] [id number] [place] [address] 90519- 8876 Sep, [facility] [id number] [place] [address] 64244- 0245 Aug, Anxiety disorder, unspecified F41.9 and Obesity E66.9 [facility] [address] [place] [id number] [place] [address] 44275- 5735 Aug, Moderate persistent asthma without complication J45.40 [facility] [address] [place] [id number] [place] [address] 05059- 1625 Aug, Anxiety disorder, unspecified F41.9 [place] [address] 40336- 5987 Aug, Chronic migraine G43.709 ; Encounter for immunization Z23 ; Hypertriglyceridemia E78.1 ; Type 2 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 ; Moderate persistent asthma without complication J45.40 and Morbid obesity E66.01 [place] [address] [place] [id number] [place] [address] 74684- 2512 Jul, [facility] [address] [place] [address] [id number] [place] [address] 32410- 8707 Jul, [facility] [address] [place] [id number] [place] [address] 53881- 1561 Jul, [facility] [address] [place] [id number] [place] [address] 36459- 9931 Jul, Subclinical hypothyroidism E03.9 [facility] [address] [address] [id number] [place] [address] 93811- 9026 Jun, Essential hypertension, benign 401.1 ; Diabetic ulcer of lower extremity 250.80 ; Asthma 493.90 ; Diabetes mellitus type II, uncontrolled 250.02 and Hyperlipidemia associated with type 2 diabetes mellitus 250.80 [facility] [address] [place] [address] [id number] [place] [id number]- [phone] 18 Jun, [address] [place] [address] [phone] Jun, [facility] [id number] [place] [phone] May, [facility] [address] [phone] Apr, [facility] [id number] [address] Apr, Viral upper respiratory infection 465.9 and Asthma 493.90 [facility] [id number] [address] Mar, Abnormal ankle brachial index 796.4 [facility] [id number] [place] [address] [id number] February, [facility] [id number] [place] [address] [phone] February, Essential hypertension, benign 401.1 [facility] [id number] [place] [address] 135506- 3747 February, Diabetic peripheral neuropathy 250.60 ; Ulcer of heel and midfoot 707.14 and Decreased pedal pulses 785.[address] [facility] [id number] [place] [address] 86224- 2726 February, [facility] [id number] [place] [address] 479747- 4939 February, [facility] [id number] [place] [address] 97839- 1856 Jan, [facility] [id number] [address] 6[address] Jan, [facility] [id number] [place] [address] 62225- 8706 Dec, [facility] [id number] [place] [address] 58459- 1358 Dec, [facility] [id number] [place] [address] 69522- 1501 Nov, [facility] [address] [address] 6336 Nov, [facility] [id number] [place] [address] 17066- 2776 Nov, [facility] [place] [facility] [address] [id number] [place] [address]- 1569 Nov, [facility] [place] [facility] [address] [id number] [place] [address]- 4616 Nov, [facility] [place] [facility] [address] [facility] [id number] [place] [address]- 8556 Nov, [facility] [place] [facility] [address] [id number] [place] [address]- 7720 Nov, 2014 [facility] [place] [facility] [address] [id number] [place] [address]- 4487 Nov, [facility] [place] [facility] [address] [facility] [id number] [place] [address]- 4410 Nov, [facility] [place] [facility] [address] [id number] [place] [address]- 7539 Oct, [facility] [place] [facility] [address] [facility] [id number] [place] [address]- 1964 Oct, [facility] [place] [facility] [address] [facility] [id number] [place] [address]- 7464 Oct, [facility] [place] [facility] [address] [facility] [id number] [place] [address]- 6297 Oct, [facility] [place] [facility] [address] [facility] [id number] [place] [address]- 4450 Oct, [facility] [place] [facility] [address] [facility] [id number] [place] [address]- 0134 Oct, [facility] [place] [facility] [address] [facility] [id number] [place] [address]- 3953 Oct, [facility] [place] [facility] [address] [facility] [id number] [place] [address]- 0116 Oct, [facility] [place] [facility] [address] [facility] [id number] [place] [address]- 9783 Oct, [facility] [place] [facility] [address] [id number] [place] [address]- 5236 Oct, [facility] [place] [facility] [address] [id number] [place] [address]- 4256 Oct, [facility] [place] [facility] [address] [id number] [place] [address]- 4466 Oct, [facility] [place] [facility] [address] [id number] [place] [address]- 8602 Oct, [facility] [place] [facility] [address] [id number] [place] [address]- 9763 Sep, [facility] [place] [facility] [address] [id number] [place] [address]- 0933 Sep, [facility] [place] [facility] [address] [id number] [place] [address]- 1204 Sep, [facility] [place] [facility] [address] [id number] [place] [address]- 9776 Sep, [facility] [place] [facility] [address] [id number] [place] [address]- 9857 Sep, [facility] [place] [facility] [address] [id number] [place] [address]- 2997 Sep, [facility] [place] [facility] [address] [id number] [place] [address]- 1166 Sep, [facility] [place] [facility] [address] [id number] [place] [address]- 3540 Sep, [facility] [place] [facility] [address] [id number] [place] [address]- 2943 Sep, [facility] [place] [facility] [address] [id number] [place] [address]- 0026 Sep, [facility] [place] [facility] [address] [id number] [place] [address]- 4976 Sep, [facility] [place] [facility] [address] [id number] [place] [address]- 6419 Sep, [facility] [place] [facility] [address] [id number] [place] [address]645 Sep, [facility] [place] [facility] [address] [id number] [place] [address]- 8044 Sep, [facility] [place] [facility] [address] [id number] [place] 4696 Sep, [facility] [place] [facility] [address] [id number] [place] [address]- 6851 Sep, [facility] [place] [facility] [address] [id number] [place] [address]- 4984 Aug, [facility] [place] [facility] [address] [id number] [place] [address]- 8847 Aug, [facility] [place] [facility] [address] [id number] [place] [address]- 7112 Aug, [facility] [place] [facility] [address] [id number] [place] [address]- 5203 Aug, [facility] [place] [facility] [address] [id number] [place] [address]- 9911 Aug, [facility] [place] [facility] [address] [id number] [place] [address]- 0478 Aug, [facility] [place] [facility] [address] [id number] [address]- 2401 Aug, [facility] [place] [facility] [address] [id number], [place] [address]- 7850 Aug, [facility] [place] [facility] [address] [id number] [place] [address]- 3871 Jul, [facility] [place] [facility] [address] [id number] [place] [address]- 8756 Jul, [facility] [place] [facility] [address] [id number] [place] [address]- 8656 Jul, [facility] [place] [facility] [address] [id number] [place] [address]- 8119 15 Jul, 2014 [facility] [place] [facility] [address] [id number] [place] [address]- 4958 15 Jul, 2014 [facility] [place] [facility] [address] [id number] [place] [address]- 5789 Jun, [facility] [place] [facility] [address] [id number] [place] [address]- 6820 Jun, [facility] [place] [facility] [address] [id number] [place] [address]- 9576 Jun, [facility] [place] [facility] [address] [id number] [place] [address]- 6597 Jun, [facility] [place] [facility] [address] [id number] [place] [address]- 8642 Jun, [facility] [place] [facility] [address] [id number] [place] [address]- 6827 May, [facility] [place] [facility] [address] [id number] [place] [address]- 6354 May, [facility] [place] [facility] [address] [id number] [place] [address]- 5011 Apr, [facility] [place] [facility] [address] [id number] [place] [address]- 5129 Apr, [facility] [place] [facility] [address] [id number] [place] [address]- 0187 Apr, [facility] [place] [facility] [address] [id number] [place] [address]- 0350 Apr, [facility] [place] [facility] [address] [id number] [place] [address]- 8911 Apr, [facility] [place] [facility] [address] [id number] [place] [address]- 4219 Apr, [facility] [place] [facility] [address] [id number] [place] [address]- 0243 Mar, [facility] [place] [facility] [address] [id number] [place] [address]- 6311 Mar, [facility] [place] [facility] [address] [id number] [place] [address]- 2324 Mar, [facility] [place] [facility] [address] [id number] [place] [address]- 6635 Mar, [facility] [place] [facility] [address] [id number] [place] [address]- 4083 Mar, [facility] [place] [facility] [address] [id number] [place] [address]- 7548 Mar, [facility] [place] [facility] [address] [id number] [place] [address]- 2677 Mar, [facility] [place] [facility] [address] [id number] [place] [address]- 4531 Mar, [facility] [place] [facility] [address] [id number] [place] [address]- 3037 Mar, [facility] [place] [facility] [address] [id number] [place] [address]- 0190 Mar, [facility] [place] [facility] [address] [id number] [place] [address]- 9447 Mar, [facility] [place] [facility] [address] [id number] [place] [address]- 5059 Mar, [facility] [place] [facility] [address] [id number] [place] [address]- 5010 Mar, [facility] [place] [facility] [address] [id number] [place] [address]- 8097 Mar, [facility] [place] [facility] [address] [id number] [place] [address]- 7380 Mar, [facility] [place] [facility] [address] [id number] [place] [address]- 4190 07 Mar, 2014 [facility] [place] [facility] [address] [id number] [place] [address]- 7554 February, [facility] [place] [facility] [address] [id number] [place] [address]- 0461 February, [facility] [place] [facility] [address] [id number] [place] [address]- 7683 February, [facility] [place] [facility] [address] [id number] [place] [address]- 6477 February, [facility] [place] [facility] [address] [id number] [place] [address]- 9900 February, [facility] [place] [facility] [address] [id number] [place] [address]- 8888 February, [facility] [place] [facility] [address] [id number] [place] [address]- 5355 February, [facility] [place] [facility] [address] [id number] [place] [address]- 5155 February, [facility] [place] [facility] [address] [id number] [place] [address]- 6854 Jan, [facility] [place] [facility] [address] [id number] [place] [address]- 4638 Jan, [facility] [place] [facility] [address] [id number] [place] [address]- 2265 Dec, [facility] [place] [facility] [address] [id number] [place] [address]- 2412 Dec, [facility] [place] [facility] [address] [id number] [place] [address]- 4579 Dec, [facility] [place] [facility] [address] [id number] [place] [address]- 6141 Dec, [facility] [place] [facility] [address] [id number] [place] [address]- 0069 Dec, [facility] [place] [facility] [address] [id number] [place] [address]- 4033 Dec, [facility] [place] [facility] [address] [id number] [place] [address]- 5213 19 Dec, 2013 [facility] [address] [id number] [place] [address]- 5034 19 Dec, 2013 [facility] [place] [facility] [address] [id number] [place] [address]- 6686 17 Dec, 2013 [facility] [address] [id number] [place] [address]- 6925 17 Dec, 2013 [facility] [place] [facility] [address] [id number] [place] [address]- 5333 14 Dec, 2013 [facility] [address] [id number] [place] [address]- 9576 14 Dec, 2013 [facility] [address] [id number] [place] [address]- 2462 Dec, [facility] [place] [facility] [address] [id number] [place] [address]- 7628 Dec, [facility] [address] [id number] [place] [address]- 3988 Nov, [facility] [place] [facility] [address] [id number] [place] [address]- 7466 Nov, [facility] [address] [id number] [place] [address]- 5973 Oct, [facility] [place] [facility] [address] [id number] [place] [address]- 2166 Oct, [facility] [place] [facility] [address] [id number] [place] [address]- 8878 Oct, [facility] [place] [facility] [address] [id number] [place] [address]- 2418 Oct, [facility] [place] [facility] [address] [id number] [place] [address]- 7636 Oct, [facility] [place] [facility] [address] [id number] [place] [address]- 4567 Oct, [facility] [address] [id number] [place] 9787 Oct, [facility] [place] [facility] [address] [id number] [place] [address]- 0171 Sep, [facility] [place] [facility] [address] [id number] [place] [address]- 6657 30 Sep, 2013 [facility] [place] [facility] [address] [id number] [place] [address]- 0286 30 Sep, 2013 [facility] [address] [id number] [place] [address]- 7923 29 Sep, 2013 [facility] [place] [facility] [address] [id number] [place] [address]- 4346 Sep, [facility] [place] [facility] [address] [id number] [place] [address]- 1997 Sep, [facility] [place] [facility] [address] [id number] [place] [address]- 1035 Sep, [facility] [place] [facility] [address] [id number] [place] [address]- 1218 Sep, [facility] [place] [facility] [address] [id number] [place] [address]- 6150 Sep, [facility] [place] [facility] [address] [id number] [place] [address]- 8695 Sep, [facility] [place] [facility] [address] [id number] [place] [address]- 6196 Sep, [facility] [place] [facility] [address] [id number] [place] [address]- 4560 Sep, [facility] [place] [facility] [address] [id number] [place] [address]- 1696 16 Sep, 2013 [facility] [place] [facility] [address] [id number] [place] [address]- 6298 16 Sep, 2013 [facility] [place] [facility] [address] [id number] [place] [address]- 5075 Sep, [facility] [address] [id number] [place] [address]- 3660 Sep, [facility] [place] [facility] [address] [id number] [place] [address]- 8425 Sep, [facility] [address] [id number] [place] [address]- 5545 Sep, [facility] [place] [facility] [address] [id number] [place] [address]- 0131 Sep, [facility] [address] [id number] [place] [address]- 5777 Aug, [facility] [place] [facility] [address] [id number] [place] [address]- 6374 Aug, [facility] [address] [id number] [place] [address]- 9064 Aug, [facility] [place] [facility] [address] [id number] [place] [address]- 7528 Aug, [facility] [address] [id number] [place] [address]- 2918 Aug, [facility] [place] [facility] [address] [id number] [place] [address]- 9000 Aug, [facility] [address] [id number] [place] [address]- 6258 Aug, [facility] [place] [facility] [address] [id number], [place] [address]- 5416 Aug, [facility] [place] [facility] [address] [id number], [place] [address]- 8690 Aug, [facility] [place] [facility] [address] [id number], [place] [address]- 1746 Aug, [facility] [place] [facility] [address] [id number], [place] [address]- 7134 Aug, [facility] [place] [facility] [address] [id number] [place] [address]- 7731 Aug, [facility] [place] [facility] [address] [id number] [place] [address]- 3658 Aug, [facility] [place] [facility] [address] [id number] [place] [address]- 2222 Aug, [facility] [place] [facility] [address] [id number] [place] [address]- 8055 Aug, [facility] [place] [facility] [address] [id number] [place] [address]- 7288 Aug, [facility] [place] [facility] [address] [id number] [place] [address]- 0241 Aug, [facility] [place] [facility] [address] [id number] [place] [address]- 2077 Jul, [facility] [place] [facility] [address] [id number] [place] [address]- 0890 Jul, [facility] [place] [facility] [address] [id number] [place] [address]- 5544 Jul, [facility] [place] [facility] [address] [id number] [place] [address]- 9032 Jul, [facility] [place] [facility] [address] [id number] [place] [address]- 0524 Jul, [facility] [place] [facility] [address] [id number] [place] [address]- 8610 Jul, [facility] [place] [facility] [address] [id number] [place] [address]- 0245 Jul, [facility] [place] [facility] [address] [id number] [place] [address]- 4896 27 Jun, 2013 [facility] [place] [facility] [address] [id number] [place] [address]- 8490 20 Jun, 2013 [facility] [place] [facility] [address] [id number] [place] [address]- 2003 17 Jun, 2013 [facility] [address] [id number] [address]- 2966 10 Jun, 2013 [facility] [id number] [address]- 8069 Jun, [facility] [id number] [address]- 4536 Jun, [facility] [id number] [address]- 3876 05 Jun, 2013 [facility] [id number] [address]- 6855 Jun, [facility] [id number] [address]- 2683 May, [facility] [id number], [place] [address]- 0529 May, [facility] [id number] [address]- 9058 May, [facility] [id number] [address]- 7825 May, [facility] [id number] [address]- 9992 May, [facility] [id number] [address]- 7719 May, [facility] [id number] [address]- 0856 May, [facility] [address] [id number] [address]- 8476 May, IMMUNIZATIONS No Known Immunizations SOCIAL HISTORY Never Assessed REASON FOR VISIT Requests return call PLAN OF CARE VITAL SIGNS MEDICATIONS Medication Instructions Dosage Frequency Start Date End Date Duration Status Zyrtec Allergy 10 mg Orally Once a day 1 tablet 24h May, 30 day (s) Active RESULTS No Results PROCEDURES No Known procedures INSTRUCTIONS MEDICATIONS ADMINISTERED No Known Medications MEDICAL (GENERAL) HISTORY Type Description Date Medical History type I diabetes Medical History hypertension Medical History hyperlipidemia Medical History asthma Medical History migraine headaches Medical History allergic rhinitis Medical History neuropathy Medical History Chronic osteomyelitis, site unspecified Medical History 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 Surgical History appendectomy [facility] 1995 Surgical History salpingectomy [facility] Surgical History bladder surgery-stretch [facility] 2003 Surgical History exploratory laparoscopy [facility] 1995 Surgical History amputation, toe (R great) Surgical History amputation, (R forefoot) 2014 Surgical History amputation, toe Left second 12/2016 Surgical History amputation, 4th left toe 02/2017 Hospitalization History Left foot cellulitis, left 2nd toe amputation-[facility] 12/23 Hospitalization History Surgery Hospitalizations
--- OUTSIDE RECORDS SUMMARY | 2018-08-22 08:52 | XMS REPORT ---
Author Author LUDIVINA STEPHANIE [facility] Address [address] [place] [address] Care Team Providers Care Supervisor Accounting Clerks Name Role Phone FARNAZ FLORENCEY Unavailable PROBLEMS Type Condition ICD9-CM Code BUZ62-MN Code Onset Dates Condition Status SNOMED Code Problem Subclinical hypothyroidism E03.9 Active 05452257 Problem Hypertriglyceridemia E78.1 Active 435450084 Problem Type 2 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 Active 159042571 Problem Type 2 diabetes mellitus with diabetic chronic 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 Active 926782971 Problem Other chronic pain G89.29 Active 23414955 Problem Type 2 diabetes mellitus with other skin complications E11.628 Active 54370360 Problem Pain in left foot M79.672 Active 29510563 Problem Irregular menstrual cycle N92.6 Active 98848218 Problem Pain in right foot M79.671 Active 89647858 Problem Tonsillolith J35.8 Active 5578860 Problem Chronic prescription opiate use Z79.891 Active 195407026 Problem Seasonal allergic rhinitis due to pollen J30.1 Active 80575223 Problem Asthma exacerbation, mild J45.901 Active 845130282 Problem Chronic kidney disease, stage III (moderate) N18.3 Active 190119826 Problem Chronic migraine G43.709 Active 03110587 Problem Moderate persistent asthma without complication J45.40 Active 250198283 Problem Intrinsic eczema L20.84 Active 72750615 Problem Severe episode of recurrent major depressive disorder, without psychotic features F33.2 Active 99613354 Problem Non-pressure chronic ulcer of right heel and midfoot limited to breakdown of skin L97.411 Active 917079441 Problem Ulcer of right heel L97.419 Active 324552554 Problem Obesity E66.9 Active 106747781 Problem Type 2 diabetes mellitus with foot ulcer E11.621 Active 29680199 Problem Essential hypertension I10 Active 64184399 Problem Anxiety disorder, unspecified F41.9 Active 080887860 Problem Type 2 diabetes mellitus with other specified complication E11.69 Active 446337144 Problem Status post amputation of toe of left foot Z89.422 Active 810227964 Problem DM neuro manif type II E11.49 Active 26569445 Problem History of amputation of hallux Z89.419 Active 203596644 ALLERGIES No Information ENCOUNTERS Encounter Location Date Diagnosis [facility] [address] [address]- [address] 28 Jun, 2018 [facility] [address] 50[address]- 5979 26 Jun, 2018 [facility] [address] [address]- 9848 07 Jun, 2018 Type 2 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 [place] [id number] [address]- 1994 27 May, 2018 [place] [address] 8[address]35- 5087 May, [facility] [address] 21785- 4545 May, Nausea R11.0 [place] [address] 77523- 8859 May, Other chronic pain G89.29 and Nausea R11.0 [facility] [address] 53687- 9621 May, Left genital labial abscess N76.4 and BMI 60.0-69.9, adult Z68.44 [place] [address] 73114- 2490 May, [place] [address] 29613- 3128 Apr, [place] [address] 64823- 3289 Apr, Chronic migraine G43.709 [place] [address] 52715- 6865 Apr, [facility] [address] [place] [id number] [place] [address] 23560- 4145 Mar, Moderate persistent asthma without complication J45.40 [facility] [address] [place] [id number] [place] [address] 99814- 4572 Mar, Moderate persistent asthma without complication J45.40 [facility] [address] [place] [id number] [place] [address] 49126- 1941 Mar, [facility] [id number] [place] [address] 04529- 2570 February, Chronic migraine G43.709 [facility] [address] [place] [id number] [place] [address] 86292- 0173 February, Chronic migraine G43.709 [facility] [address] [place] [address] [id number] [place] [address] 26619- 8391 February, [facility] [id number] [place] [address] 94512- 0849 February, [facility] [address] [place] [id number] [place] [address] 40214- 2437 February, Type 2 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 ; Moderate persistent asthma without complication J45.40 ; Type 2 diabetes mellitus with foot ulcer E11.621 ; Non-pressure chronic ulcer of right heel and midfoot limited to breakdown of skin L97.411 ; Chronic migraine G43.709 and BMI 60.0-69.9, adult Z68.44 [facility] [address] [place] [address] 13100 -6659 Jan, Asthma exacerbation, mild J45.901 ; Seasonal allergic rhinitis due to pollen J30.1 and BMI 60.0-69.9, adult Z68.44 [facility] [address] [address] 70[address] Jan, [facility] [address] [place] [id number] [place] [address] 36164- 7411 Jan, Other chronic pain G89.29 [place] [address] [place] [id number] [place] [address] 48656- 2947 30 Dec, 2017 Type 2 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 [place] [address] [place] [id number] [place] [address] 05217- 0010 19 Dec, 2017 Type 2 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 [place] [address] 06752- 4682 15 Dec, 2017 [place] [address] [place] [id number] [place] [address] 76301- 2598 14 Dec, 2017 [place] [address] 42578- 1453 13 Dec, 2017 Chronic kidney disease, stage III (moderate) N18.3 [facility] [address] 70097 -0898 09 Dec, 2017 Nausea R11.0 and Diarrhea, unspecified type R19.7 [place] [address] [place] [id number] [place] [address] 94104- 6492 07 Dec, 2017 Chronic kidney disease, stage III (moderate) N18.3 and Type 2 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 [place] [address] [place] [id number] [place] [address] 26302- 2958 Dec, [place] [address] 70526- 6430 Nov, Ulcer of right heel L97.419 and Type 2 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 [facility] [address] [id number] Nov, Dental examination Z01.20 [place] [address] [place] [id number] [place] [address] 97179- 8751 Nov, Open wound of right foot, initial encounter S91.301A [facility] [address] [id number] [place] [address] 30928 -1802 Nov, Open wound of right foot, initial encounter S91.301A ; Non- intractable vomiting with nausea, unspecified vomiting type R11.2 and BMI 60.0- 69.9, adult Z68.44 [place] [address] [place] [id number] [place] [address] 25887- 0496 Nov, [place] [address] 56309- 3455 Nov, Other chronic pain G89.29 [place] [address] 57834- 0633 Oct, Cellulitis of right lower limb L03.115 [place] [address] 84584- 2467 Oct, [place] [address] 31455- 3156 Oct, [place] [address] [place] [id number] [place] [address] 46323- 1101 Oct, Cat scratch W55.03XA ; Cellulitis of right lower limb L03.115 ; Acute nasopharyngitis J00 ; BMI 60.0-69.9, adult Z68.44 and Cough R05 [place] [address] [place] [id number] [place] [address] 83323- 8908 Oct, Cat scratch W55.03XA ; Cutaneous abscess of right lower extremity L02.415 and Cellulitis of right lower limb L03.115 [place] [address] [place] [id number] [place] [address] 02452- 1230 Oct, Type 2 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 [place] [address] 32239- 9433 Oct, Other chronic pain G89.29 [place] [address] 84941- 8772 Aug, [place] [address] [place] [id number] [place] [address] 77925- 8683 Jul, Other chronic pain G89.29 [place] [address] 53667- 4212 Jul, [place] [address] 09463- 7407 Jul, Chronic kidney disease, stage III (moderate) N18.3 [place] [address] 06392- 4684 04 Jul, 2017 Type 2 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 ; Essential hypertension I10 ; Irregular menstrual cycle N92.6 ; Hypertriglyceridemia E78.1 ; Anxiety disorder, unspecified F41.9 ; Severe episode of recurrent major depressive disorder, without psychotic features F33.2 ; Tonsillolith J35.8 ; Intrinsic eczema L20.84 ; Subclinical hypothyroidism E03.9 ; Viral pharyngitis J02.9 and Encounter for immunization Z23 [place] [address] [place] [id number] [place] [address] 97648- 0710 13 Jun, 2017 Essential hypertension I10 [place] [id number] [place] [address] 74762- 0011 08 Jun, 2017 [place] [address] [place] [id number] [place] [address] 31553- 1959 Jun, [place] [address] [place] [id number] [place] [address] 87399- 3154 May, Moderate persistent asthma without complication J45.40 [place] [address] 73702- 9927 May, Pain in right foot M79.671 ; Pain in left foot M79.672 ; Other chronic pain G89.29 and Chronic prescription opiate use Z79.891 [place] [address] [place] [id number] [place] [address] 15754- 1754 May, [place] [address] [place] [id number] [place] [address] 27111- 1314 May, [place] [address] [place] [id number] [place] [address] 98404- 0763 Apr, [place] [address] [place] [id number] [place] [address] 35496- 1796 Apr, Chronic migraine G43.709 [place] [address] 73252- 9312 Apr, Essential hypertension I10 ; Hypertriglyceridemia E78.1 and Chronic migraine G43.709 [place] [address] [place] [id number] [place] [address] 96685- 6047 Apr, [place] [address] [place] [id number] [place] [address] 86736- 8297 Apr, Sore throat J02.9 [place] [id number] [place] [address] 43774- 6414 Apr, [place] [address] [place] [id number] [place] [address] 58024- 9861 Mar, Strep pharyngitis J02.0 and Non-intractable vomiting with nausea, unspecified vomiting type R11.2 [place] [id number] [place] [address] 84136- 6528 Mar, [place] [address] [place] [id number] [place] [address] 95469- 3709 Mar, [place] [address] [place] [id number] [place] [address] 95950- 7112 Mar, [place] [address] [place] [id number] [place] [address] 51776- 9327 Mar, Type 2 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 ; Moderate persistent asthma without complication J45.40 ; Status post amputation of toe of left foot Z89.422 ; Acute seasonal allergic rhinitis, unspecified trigger J30.2 and Left shoulder pain, unspecified chronicity M25.512 [place] [id number] [address]- 1210 Mar, [place] [address] [place] [id number] [place] [address] 37632- 7740 February, Pre-op evaluation Z01.818 ; Type 2 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 and Type 2 diabetes mellitus with foot ulcer E11.621 [place] [address] [place] [id number] [place] [address] 96722- 7662 February, [place] [address] [place] [id number] [place] [address] 11829- 9182 February, [place] [address] [place] [id number] [place] [address] 29138- 9571 February, Toe infection L08.9 and Type 2 diabetes mellitus with other specified complication E11.69 [place] [address] [place] [id number] [place] [address] 18146- 7152 February, [place] [address] [place] [id number] [place] [address] 63848- 4053 Jan, Type 2 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 [place] [address] [place] [id number] [place] [address] 02181- 9399 Jan, [place] [address] [place] [id number] [place] [address] 06431- 8008 Jan, Right upper quadrant pain R10.11 and Intractable vomiting with nausea, unspecified vomiting type R11.2 [place] [address] [place] [address] 59382- 0423 Jan, Hypertriglyceridemia E78.1 and Essential hypertension I10 [place] [address] [place] [id number] [place] [address] 91441- 4781 07 Jan, 2017 Essential hypertension I10 ; Type 2 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 and Hypertriglyceridemia E78.1 [place] [address] [place] [id number] [place] [address] 08467- 4421 Dec, Type 2 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 [facility] [address], [place] [address]- 1168 Dec, Hypertriglyceridemia E78.1 ; Essential hypertension I10 ; Type 2 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 ; Anxiety disorder , unspecified F41.9 and Moderate persistent asthma without complication J45.40 [facility] [address] [place] [id number] [place] [address] 76662- 2343 Dec, Type 2 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 [facility] [address] [place] [id number] [place] [address] [id number] Dec, [facility] [address] [place] [id number] [place] [address] 76054- 5944 Nov, [facility] [address] [place] [id number] [place] [address] 36184- 8561 Nov, [facility] [address] [place] [id number] [place] [address] 13216- 8273 Nov, [facility] [address] [place] [id number] [place] [address] 33549- 0253 Nov, Toe infection L08.9 [facility] [address] [place] [id number] [place] [address] 75502- 3473 Nov, [facility] [address] [place] [address] 62869- 4877 Oct, History of amputation of hallux Z89.419 [facility] [address] [place] [address] 69565- 0022 Oct, Type 2 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 [facility] [address] [place] [id number] [place] [address] 30956- 6239 Oct, Type 2 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 [facility] [address] [address]- 7914 Oct, Acute osteomyelitis of left foot M86.172 ; Pre-op exam Z01.818 and Type 2 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 [facility] [address] [place] [id number] [place] [address] 85707- 1079 Oct, Foot ulcer, left, with unspecified severity L97.529 ; Acute osteomyelitis of left foot M86.172 and Type 2 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 [facility] [address] [place] [id number] [place] [address] 20945- 1356 Sep, [facility] [address] [place] [id number] [place] [address] 08941- 2889 Sep, Intractable vomiting with nausea, unspecified vomiting type R11.2 and Right upper quadrant pain R10.11 [facility] [address] [place] [id number] [place] [address] 59969- 7877 Aug, [place] [address] [place] [id number] [place] [address] 36617- 6503 Jul, [facility] [address] [place] [id number] [place] [address] 82749- 1972 Jul, Preop examination Z01.818 [facility] [address] [place] [id number] [place] [address] 02971- 9492 Jul, [facility] [address] [place] [id number] [place] [address] 76320- 1446 Jul, [facility] [address] [place] [id number] [place] [address] 62736- 9922 Jul, Chronic osteomyelitis of left foot M86.672 and Ulcer of left foot, with unspecified severity L97.529 [place] [address] [place] [address] [id number] [place] [address] 32726- 0601 Jul, Non-pressure chronic ulcer of other part of left foot with unspecified severity L97.529 [facility] [address] [place] [id number] [place] [address] 52408- 7552 Jul, [facility] [address] [place] [address] [address]- 0063 Jul, [facility] [address] [place] [address] [id number] [place] [address] 77344- 5654 28 Jun, 2016 [facility] [address] [place] [address] [id number] [place] [address] 17289- 3918 Jun, [facility] [address] [place] [id number] [place] [address] 87550- 3333 Jun, [facility] [address] [place] [id number] [place] [address] 00678- 3036 Jun, Right upper quadrant pain R10.11 [facility] [address] [place] [id number] [place] [address] 83654- 1392 Jun, [facility] [address] [place] [id number] [place] [address] 94489- 2194 Jun, Intractable vomiting with nausea, unspecified vomiting type R11.2 [facility] [address] [place] [id number] [place] [address] 03210- 8905 13 Jun, 2016 Right upper quadrant pain R10.11 ; Migraine with aura and with status migrainosus, not intractable G43.101 and Intractable vomiting with nausea, unspecified vomiting type R11.2 [facility] [address] [place] [address] 15548- 9474 12 Jun, 2016 [facility] [address] [place] [id number] [place] [address] 70543- 2208 Jun, Gastroenteritis K52.9 [facility] [address] [place] [address] 69321- 7374 May, [facility] [address] [place] [id number] [place] [address] 35640- 7532 May, Hypertriglyceridemia E78.1 ; Essential hypertension I10 ; Type 2 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 ; Moderate persistent asthma without complication J45.40 ; Type 2 diabetes mellitus with foot ulcer E11.621 ; Other chronic pain G89.29 ; Pain in right leg M79.604 ; Pain of left leg M79.605 ; Rash and nonspecific skin eruption R21 and Anxiety disorder, unspecified F41.9 [place] [address] [place] [address] [id number] [place] [address] 89552- 1190 May, Essential hypertension I10 ; Hypertriglyceridemia E78.1 ; Upper respiratory infection J06.9 ; Subclinical hypothyroidism E03.9 and Type 2 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 [place] [address] 41262- 2662 Apr, Hypertriglyceridemia E78.1 ; Subclinical hypothyroidism E03.9 ; Essential hypertension I10 and Type 2 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 [place] [address] 55832- 2173 Mar, [place] [address] 24112- 4289 Mar, Ulcer of right heel L97.419 [place] [address] [place] [id number] [place] [address] 26254- 0406 Mar, [place] [address] 42676- 9443 Mar, [place] [address] [place] [id number] [place] [address] 46005- 2187 February, [place] [address] [place] [id number] [place] [address] 86692- 2957 February, Ulcer of right heel L97.419 and DM neuro manif type II E11.49 [facility] [address] [place] [id number] [place] [address] 93834- 3289 Jan, [facility] [address] 55075- 0723 Jan, Ulcer of right heel L97.419 ; Type 2 diabetes mellitus with foot ulcer E11.621 and Non-pressure chronic ulcer of other part of left foot with unspecified severity L97.529 [place] [address] [place] [address]- 8191 Jan, [facility] [address] [place] [id number] [place] [address] 59207- 4384 Jan, [facility] [address] [place] [id number] [place] [address] 25826- 9483 Jan, Infection of toenail L03.039 [facility] [address] [place] [id number] [place] [address] 09580- 2219 14 Jan, 2016 Blister of toe of left foot, initial encounter S90.425A and Type 2 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 [facility] [address] [place] [address] [id number] [place] [address] 65073- 1739 Jan, [facility] [address] [place] [address] 55375 -8205 Jan, Sore throat J02.9 and Strep pharyngitis J02.0 [facility] [address] [place] [id number] [place] [address] 47699- 9689 Dec, Type 2 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 ; Upper respiratory infection J06.9 ; Cough R05 and Asthma exacerbation J45.901 [facility] [address] [place] [address] 85539- 4195 Oct, [facility] [address] [place] [address] 30051- 6165 Oct, [facility] [address] [place] [id number] [place] [address] 01863- 1555 Oct, [facility] [address] [place] [address] 81996- 5224 Oct, [facility] [address] [place] [address] [id number] [place] [address] 96445- 5188 Sep, [facility] [address] [place] [address] 98815- 6350 Aug, Anxiety disorder, unspecified F41.9 and Obesity E66.9 [facility] [address] [place] [id number] [place] [address] 25872- 1212 Aug, Moderate persistent asthma without complication J45.40 [facility] [address] [place] [address] [id number] [place] [address] 37131- 3843 Aug, Anxiety disorder, unspecified F41.9 [place] [address] 76045- 2681 Aug, Chronic migraine G43.709 ; Encounter for immunization Z23 ; Hypertriglyceridemia E78.1 ; Type 2 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 ; Moderate persistent asthma without complication J45.40 and Morbid obesity E66.01 [place] [address] [place] [address] [id number] [place] [address] 52783- 5906 Jul, [facility] [address] [place] [address] [id number] [place] [address] 96472- 9245 Jul, [facility] [address] [place] [address] [id number] [place] [address] 31944- 2808 Jul, [facility] [address] [place] [address] [id number] [place] [address] 50281- 5207 Jul, Subclinical hypothyroidism E03.9 [facility] [address] [place] [address] [id number] [place] [address] 69828- 5219 Jun, Essential hypertension, benign 401.1 ; Diabetic ulcer of lower extremity 250.80 ; Asthma 493.90 ; Diabetes mellitus type II, uncontrolled 250.02 and Hyperlipidemia associated with type 2 diabetes mellitus 250.80 [facility] [address] [place] [address] [id number] [place] [address] 35315- 7649 18 Jun, 2015 [place] [address] 39385- 3690 Jun, [facility] [address] [place] [id number] [place] [address] 17020- 9971 May, [facility] [address] 33105- 6625 Apr, [facility] [address] [address]- 0715 Apr, Viral upper respiratory infection 465.9 and Asthma 493.90 [facility] [address] [place] [address]- 3043 Mar, Abnormal ankle brachial index 796.4 [facility] [id number] [place] [address] [id number] February, [facility] [id number] [place] [address] [id number] February, Essential hypertension, benign 401.1 [facility] [id number] [place] [address] [id number] February, Diabetic peripheral neuropathy 250.60 ; Ulcer of heel and midfoot 707.14 and Decreased pedal pulses 785.9 [facility] [address] [id number] [place] [address]- 7376 February, [facility] [id number] [place] [address] 346999- 9122 February, [facility] [id number] [place] [address] 60805- 1892 Jan, [facility] [id number], [place] [address] Jan, [facility] [id number] [place] [address] 27089- 8256 Dec, [facility] [id number] [place] [address] 89948- 6891 Dec, [facility] [id number] [place] [address] 22617- 6730 Nov, [facility] [id number] [address] 2616 Nov, [facility] [id number] [place] [address] 42350- 8412 Nov, [facility] [place] [facility] [address] [id number] [place] [address]- 3791 Nov, [facility] [place] [facility] [address] [id number] [place] [address]- 4056 Nov, [facility] [place] [facility] [address] [facility] [id number] [place] [address]- 9316 Nov, [facility] [place] [facility] [address] [id number] [place] [address]- 1644 Nov, 2014 [facility] [place] [facility] [address] [id number] [place] [address]- 3255 Nov, [facility] [place] [facility] [address] [facility] [id number] [place] [address]- 2309 Nov, [facility] [place] [facility] [id number] [place] [address]- [address] Oct, [facility] [place] [facility] [address] [facility] [id number] [place] [address]- 9782 Oct, [facility] [place] [facility] [address] [facility] [id number] [place] [address]- 9155 Oct, [facility] [place] [facility] [address] [facility] [id number] [place] [address]- 9692 Oct, [facility] [place] [facility] [address] [facility] [id number] [place] [address]- 2544 Oct, [facility] [place] [facility] [address] [facility] [id number] [place] [address]- 4041 Oct, [facility] [place] [facility] [address] [facility] [id number] [place] [address]- 2807 Oct, [facility] [place] [facility] [address] [facility] [id number] [place] [address]- 5816 Oct, [facility] [place] [facility] [address] [facility] [id number] [place] [address]- 8443 Oct, [facility] [place] [facility] [address] [id number] [place] [address]- 5826 Oct, [facility] [place] [facility] [address] [id number] [place] [address]- 4969 Oct, [facility] [place] [facility] [address] [id number] [place] [address]- 9326 Oct, [facility] [place] [facility] [address] [id number] [place] [address]- 5309 Oct, [facility] [place] [facility] [address] [id number] [place] [address]- 1738 Sep, [facility] [place] [facility] [address] [id number] [place] [address]- 1140 Sep, [facility] [place] [facility] [address] [id number] [place] [address]- 4116 Sep, [facility] [place] [facility] [address] [id number] [place] [address]- 6567 Sep, [facility] [place] [facility] [address] [id number] [place] [address]- 8419 Sep, [facility] [place] [facility] [address] [id number] [place] [address]- 4810 Sep, [facility] [place] [facility] [address] [id number] [place] [address]- 7829 Sep, [facility] [place] [facility] [address] [id number] [place] [address]- 0239 Sep, [facility] [place] [facility] [address] [id number] [place] [address]- 5974 Sep, [facility] [place] [facility] [address] [id number] [place] [address]- 8566 Sep, [facility] [place] [facility] [address] [id number] [place] [address]- 1336 Sep, [facility] [place] [facility] [address] [id number] [place] [address]- 9934 Sep, [facility] [place] [facility] [address] [id number] [place] 0447 Sep, [facility] [place] [facility] [address] [id number] [place] [address]- 7155 Sep, [facility] [place] [facility] [address] [id number] [place] 1610 Sep, [facility] [place] [facility] [address] [id number] [place] [address]- 0107 Sep, [facility] [place] [facility] [address] [id number] [place] [address]- 4725 Aug, [facility] [place] [facility] [address] [id number] [place] [address]- 0522 Aug, [facility] [place] [facility] [address] [id number] [place] [address]- 2584 Aug, [facility] [place] [facility] [address] [id number] [place] [address]- 9901 Aug, [facility] [place] [facility] [address] [id number] [place] [address]- 7178 Aug, [facility] [place] [facility] [address] [id number] [place] [address]- 4337 Aug, [facility] [place] [facility] [address] [id number], [place] [address]- 3833 Aug, [facility] [place] [facility] [address] [id number], [place] [address]- 4107 Aug, [facility] [place] [facility] [address] [id number] [place] [address]- 4216 Jul, [facility] [place] [facility] [address] [id number] [place] [address]- 3373 Jul, [facility] [place] [facility] [address] [id number] [place] [address]- 2859 Jul, [facility] [place] [facility] [address] [id number] [place] [address]- 2279 15 Jul, 2014 [facility] [place] [facility] [address] [id number] [place] [address]- 0511 15 Jul, 2014 [facility] [place] [facility] [address] [id number] [place] [address]- 2216 Jun, [facility] [place] [facility] [address] [id number] [place] [address]- 8340 Jun, [facility] [place] [facility] [address] [id number] [place] [address]- 9660 Jun, [facility] [place] [facility] [address] [id number] [place] [address]- 9957 Jun, [facility] [place] [facility] [address] [id number] [place] [address]- 2167 Jun, [facility] [place] [facility] [address] [id number] [place] [address]- 0644 May, [facility] [place] [facility] [address] [id number] [place] [address]- 7351 May, [facility] [place] [facility] [address] [id number] [place] [address]- 1332 Apr, [facility] [place] [facility] [address] [id number] [place] [address]- 8069 Apr, [facility] [place] [facility] [address] [id number] [place] [address]- 4993 Apr, [facility] [place] [facility] [address] [id number] [place] [address]- 8919 Apr, [facility] [place] [facility] [address] [id number] [place] [address]- 7940 Apr, [facility] [place] [facility] [address] [id number] [place] [address]- 5597 Apr, [facility] [place] [facility] [address] [id number] [place] [address]- 2124 Mar, [facility] [place] [facility] [address] [id number] [place] [address]- 8063 Mar, [facility] [place] [facility] [address] [id number] [place] [address]- 6674 Mar, [facility] [place] [facility] [address] [id number] [place] [address]- 8747 Mar, [facility] [place] [facility] [address] [id number] [place] [address]- 3420 Mar, [facility] [place] [facility] [address] [id number] [place] [address]- 5355 Mar, [facility] [place] [facility] [address] [id number] [place] [address]- 3093 Mar, [facility] [place] [facility] [address] [id number] [place] [address]- 9348 Mar, [facility] [place] [facility] [address] [id number] [place] [address]- 5980 Mar, [facility] [place] [facility] [address] [id number] [place] [address]- 6066 Mar, [facility] [place] [facility] [address] [id number] [place] [address]- 8711 Mar, [facility] [place] [facility] [address] [id number] [place] [address]- 9141 Mar, [facility] [place] [facility] [address] [id number] [place] [address]- 8508 Mar, [facility] [place] [facility] [address] [id number] [place] [address]- 9736 Mar, [facility] [place] [facility] [address] [id number] [place] [address]- 2395 Mar, [facility] [place] [facility] [address] [id number] [place] [address]- 3599 07 Mar, 2014 [facility] [place] [facility] [address] [id number] [place] [address]- 2748 February, [facility] [place] [facility] [address] [id number] [place] [address]- 4058 February, [facility] [place] [facility] [address] [id number] [place] [address]- 9425 February, [facility] [place] [facility] [address] [id number] [place] [address]- 7936 February, [facility] [place] [facility] [address] [id number] [place] [address]- 8723 February, [facility] [place] [facility] [address] [id number] [place] [address]- 2439 February, [facility] [place] [facility] [address] [id number] [place] [address]- 7724 February, [facility] [place] [facility] [address] [id number] [place] [address]- 3051 February, [facility] [place] [facility] [address] [id number] [place] [address]- 6534 Jan, [facility] [place] [facility] [address] [id number] [place] [address]- 1183 Jan, [facility] [place] [facility] [address] [id number] [place] [address]- 6805 Dec, [facility] [place] [facility] [address] [id number] [place] [address]- 1265 Dec, [facility] [place] [facility] [address] [id number] [place] [address]- 0533 Dec, [facility] [place] [facility] [address] [id number] [place] [address]- 7289 Dec, [facility] [place] [facility] [address] [id number] [place] [address]- 7998 Dec, [facility] [place] [facility] [address] [id number] [place] [address]- 2463 Dec, [facility] [place] [facility] [address] [id number] [place] [address]- 2663 19 Dec, 2013 [facility] [address] [id number] [place] [address]- 8092 19 Dec, 2013 [facility] [place] [facility] [address] [id number] [place] [address]- 3606 17 Dec, 2013 [facility] [address] [id number] [place] [address]- 6002 17 Dec, 2013 [facility] [place] [facility] [address] [id number] [place] [address]- 3140 14 Dec, 2013 [facility] [address] [id number] [place] [address]- 1206 14 Dec, 2013 [facility] [address] [id number] [place] [address]- 2417 Dec, [facility] [place] [facility] [address] [id number] [place] [address]- 5695 Dec, [facility] [address] [id number] [place] [address]- 9220 Nov, [facility] [place] [facility] [address] [id number] [place] [address]- 3948 Nov, [facility] [address] [id number] [place] [address]- 2863 Oct, [facility] [place] [facility] [address] [id number] [place] [address]- 5132 Oct, [facility] [place] [facility] [address] [id number] [place] [address]- 4970 Oct, [facility] [place] [facility] [address] [id number] [place] [address]- 7749 Oct, [facility] [place] [facility] [address] [id number] [place] [address]- 0606 Oct, [facility] [place] [facility] [address] [id number] [place] [address]- 9965 Oct, [facility] [address] [id number] [place] [address]407 Oct, [facility] [place] [facility] [address] [id number] [place] [address]- 3755 Sep, [facility] [place] [facility] [address] [id number] [place] [address]- 9942 30 Sep, 2013 [facility] [place] [facility] [address] [id number] [place] [address]- 4716 30 Sep, 2013 [facility] [address] [id number] [place] [address]- 9259 29 Sep, 2013 [facility] [place] [facility] [address] [id number] [place] [address]- 4543 Sep, [facility] [place] [facility] [address] [id number] [place] [address]- 3608 Sep, [facility] [place] [facility] [address] [id number] [place] [address]- 7911 Sep, [facility] [place] [facility] [address] [id number] [place] [address]- 5180 Sep, [facility] [place] [facility] [address] [id number] [place] [address]- 8542 Sep, [facility] [place] [facility] [address] [id number] [place] [address]- 6059 Sep, [facility] [place] [facility] [address] [id number] [place] [address]- 0639 Sep, [facility] [place] [facility] [address] [id number] [place] [address]- 7555 Sep, [facility] [place] [facility] [address] [id number] [place] [address]- 4236 16 Sep, 2013 [facility] [place] [facility] [address] [id number] [place] [address]- 4419 16 Sep, 2013 [facility] [place] [facility] [address] [id number] [place] [address]- 9925 Sep, [facility] [address] [id number] [place] [address]- 4347 Sep, [facility] [place] [facility] [address] [id number] [place] [address]- 4698 Sep, [facility] [address] [id number] [place] [address]- 5833 Sep, [facility] [place] [facility] [address] [id number] [place] [address]- 3435 Sep, [facility] [address] [id number] [place] [address]- 6352 Aug, [facility] [place] [facility] [address] [id number] [place] [address]- 8468 Aug, [facility] [address] [id number] [place] [address]- 8790 Aug, [facility] [place] [facility] [address] [id number] [place] [address]- 0070 Aug, [facility] [address] [id number] [place] [address]- 0823 Aug, [facility] [place] [facility] [address] [id number] [place] [address]- 2122 Aug, [facility] [address] [id number] [place] [address]- 8542 Aug, [facility] [place] [facility] [address] [id number], [place] [address]- 2988 Aug, [facility] [place] [facility] [address] [id number], [place] [address]- 5497 Aug, [facility] [place] [facility] [address] [id number], [place] [address]- 9078 Aug, [facility] [place] [facility] [address] [id number], [place] [address]- 1984 Aug, [facility] [place] [facility] [address] [id number] [place] [address]- 8803 Aug, [facility] [place] [facility] [address] [id number] [place] [address]- 6743 Aug, [facility] [place] [facility] [address] [id number] [place] [address]- 7141 Aug, [facility] [place] [facility] [address] [id number] [place] [address]- 4816 Aug, [facility] [place] [facility] [address] [id number] [place] [address]- 2311 Aug, [facility] [place] [facility] [address] [id number] [place] [address]- 1399 Aug, [facility] [place] [facility] [address] [id number] [place] [address]- 8300 Jul, [facility] [place] [facility] [address] [id number] [place] [address]- 7895 Jul, [facility] [place] [facility] [address] [id number] [place] [address]- 6930 Jul, [facility] [place] [facility] [address] [id number] [place] [address]- 0295 Jul, [facility] [place] [facility] [address] [id number] [place] [address]- 5021 Jul, [facility] [place] [facility] [address] [id number] [place] [address]- 0225 Jul, [facility] [place] [facility] [address] [id number] [place] [address]- 1183 Jul, [facility] [place] [facility] [address] [id number] [place] [address]- 9496 27 Jun, 2013 [facility] [place] [facility] [address] [id number] [place] [address]- 4976 20 Jun, 2013 [facility] [place] [facility] [address] [id number] [place] [address]- 5461 17 Jun, 2013 [facility] [address] [facility] [id number], [place] [address]- 6816 10 Jun, 2013 [facility] [address] [facility] [id number] 3306 Jun, [facility] [id number] 5716 Jun, [facility] [address] [facility] [id number] 3717 05 Jun, 2013 [facility] [address] [facility] [id number], [place] [address]- 7339 Jun, [facility] [address] [id number] [address]- 7585 May, [facility] [id number], [place] [address]- 0499 May, [facility] [id number], [place] [address]- 5644 May, [facility] [id number], [place] [address]- 8200 May, [facility] [id number], [place] [address]- 4018 May, [facility] [id number], [place] [address]- 8554 May, [facility] [id number], [place] [address]- 8435 May, [facility] [address] [id number], [place] [address]- 9463 May, IMMUNIZATIONS No Known Immunizations SOCIAL HISTORY Never Assessed REASON FOR VISIT Prior Authorization Request- Imitrex PLAN OF CARE VITAL SIGNS MEDICATIONS Medication Instructions Dosage Frequency Start Date End Date Duration Status Eletriptan Hydrobromide 40 MG Orally Once a day 1 tablet as needed at onset of headache. Can repeat in 2 hours if needed. 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 12/23 Hospitalization History Surgery Hospitalizations
--- OUTSIDE RECORDS SUMMARY | 2018-08-22 08:53 | XMS REPORT ---
Author Author DOMITILA UMANA Organization [facility] [place] Address [address] [place] [address] Care Team Providers Care Nuclear Medicine Officer Name Role Phone DOMITILA MUANA Unavailable PROBLEMS Type Condition ICD9-CM Code PWL62-OO Code Onset Dates Condition Status SNOMED Code Problem Subclinical hypothyroidism E03.9 Active 37709470 Problem Hypertriglyceridemia E78.1 Active 618593015 Problem Type 2 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 Active 343766533 Problem Type 2 diabetes mellitus with diabetic chronic 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 Active 114165838 Problem Other chronic pain G89.29 Active 83213651 Problem Type 2 diabetes mellitus with other skin complications E11.628 Active 52343360 Problem Pain in left foot M79.672 Active 99970404 Problem Irregular menstrual cycle N92.6 Active 30380003 Problem Pain in right foot M79.671 Active 54278867 Problem Tonsillolith J35.8 Active 4159279 Problem Chronic prescription opiate use Z79.891 Active 447967043 Problem Seasonal allergic rhinitis due to pollen J30.1 Active 38470263 Problem Asthma exacerbation, mild J45.901 Active 996689784 Problem Chronic kidney disease, stage III (moderate) N18.3 Active 131738614 Problem Chronic migraine G43.709 Active 33130918 Problem Moderate persistent asthma without complication J45.40 Active 937757918 Problem Intrinsic eczema L20.84 Active 24261580 Problem Severe episode of recurrent major depressive disorder, without psychotic features F33.2 Active 72039520 Problem Non-pressure chronic ulcer of right heel and midfoot limited to breakdown of skin L97.411 Active 429675363 Problem Ulcer of right heel L97.419 Active 847324453 Problem Obesity E66.9 Active 427628210 Problem Type 2 diabetes mellitus with foot ulcer E11.621 Active 93353162 Problem Essential hypertension I10 Active 61441224 Problem Anxiety disorder, unspecified F41.9 Active 546517119 Problem Type 2 diabetes mellitus with other specified complication E11.69 Active 176252573 Problem Status post amputation of toe of left foot Z89.422 Active 595475643 Problem DM neuro manif type II E11.49 Active 69692967 Problem History of amputation of hallux Z89.419 Active 143485451 ALLERGIES Substance Reaction Event Type Date Status Penicillin V Potassium Unknown Drug Allergy May, Active ENCOUNTERS Encounter Location Date Diagnosis [facility] [place] [id number] [place] [address] 90951- 3768 28 Jun, 2018 [facility] [place] [id number] [place] [address] 50622- 5225 Jun, [facility] [place] [address] 51375- 6587 Jun, Type 2 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 [facility] [place] [address] 66978- 4311 27 May, 2018 [facility] [place] [address] 16922- 6776 May, [facility] [place] [id number] [place] [address] 39628- 2973 May, Nausea R11.0 [facility] [place] [id number] [place] [address] 81924- 8623 May, Other chronic pain G89.29 and Nausea R11.0 [facility] [place] [id number] [place] [address] 63125- 9055 May, Left genital labial abscess N76.4 and BMI 60.0-69.9, adult Z68.44 [facility] [place] [id number] [place] [address] 77673- 4115 May, [facility] [place] [address] 63019- 2900 Apr, [facility] [place] [id number] [place] [address] 56429- 0056 Apr, Chronic migraine G43.709 [place] [id number] [place] [address] 33443- 0647 Apr, [facility] [place] [address] 72618- 8625 Mar, Moderate persistent asthma without complication J45.40 [facility] [place] [id number] [place] [address] 76877- 8464 Mar, Moderate persistent asthma without complication J45.40 [facility] [place] [address] 38138- 6686 Mar, [facility] [place] [id number] [place] [address] 59065- 9010 February, Chronic migraine G43.709 [facility] [place] [id number] [place] [address] 61073- 9637 February, Chronic migraine G43.709 [facility] [place] [address] 86292- 4608 February, [facility] [place] [id number] [place] [address] 92402- 1453 February, [facility] [place] [id number] [place] [address] 59487- 2341 February, Type 2 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 ; Moderate persistent asthma without complication J45.40 ; Type 2 diabetes mellitus with foot ulcer E11.621 ; Non-pressure chronic ulcer of right heel and midfoot limited to breakdown of skin L97.411 ; Chronic migraine G43.709 and BMI 60.0-69.9, adult Z68.44 [facility] [id number] [place] [address] 98031 -2218 Jan, Asthma exacerbation, mild J45.901 ; Seasonal allergic rhinitis due to pollen J30.1 and BMI 60.0-69.9, adult Z68.44 [facility] [place] [id number] [place] [address] 46707- 4747 Jan, [facility] [place] [id number] [place] [address] 12661- 9534 Jan, Other chronic pain G89.29 [facility] [place] [address] 83466- 1201 30 Dec, 2017 Type 2 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 [facility] [place] [id number] [place] [address] 75757- 9056 Dec, Type 2 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 [facility] [place] [id number] [place] [address] 46616- 7953 15 Dec, 2017 [place] [address] 77194- 6659 14 Dec, 2017 [facility] [place] [id number] [place] [address] 74531- 8094 13 Dec, 2017 Chronic kidney disease, stage III (moderate) N18.3 [facility] [id number] [place] [address] 66471 -6774 09 Dec, 2017 Nausea R11.0 and Diarrhea, unspecified type R19.7 [place] [id number] [place] [address] 69185- 2698 07 Dec, 2017 Chronic kidney disease, stage III (moderate) N18.3 and Type 2 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 [facility] [place] [id number] [place] [address] 58491- 4777 Dec, [facility] [place] [id number] [place] [address] 65210- 7541 Nov, Ulcer of right heel L97.419 and Type 2 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 [facility] [id number] [place] [address] [id number] Nov, Dental examination Z01.20 [facility] [place] [id number] [place] [address] 61407- 3169 Nov, Open wound of right foot, initial encounter S91.301A [facility] [address] [place] [address] 71313 -2014 Nov, Open wound of right foot, initial encounter S91.301A ; Non- intractable vomiting with nausea, unspecified vomiting type R11.2 and BMI 60.0- 69.9, adult Z68.44 [facility] [place] [id number] [place] [address] 70332- 9944 Nov, [facility] [place] [id number] [place] [address] 92774- 2594 Nov, Other chronic pain G89.29 [place] [address] 91476- 8229 Oct, Cellulitis of right lower limb L03.115 [place] [id number] [place] [address] 19362- 9944 Oct, [place] [id number] [place] [address] 98548- 2475 Oct, [place] [id number] [place] [address] 52083- 8034 Oct, Cat scratch W55.03XA ; Cellulitis of right lower limb L03.115 ; Acute nasopharyngitis J00 ; BMI 60.0-69.9, adult Z68.44 and Cough R05 [place] [id number] [place] [address] 03341- 0680 Oct, Cat scratch W55.03XA ; Cutaneous abscess of right lower extremity L02.415 and Cellulitis of right lower limb L03.115 [place] [id number] [place] [address] 68448- 8147 Oct, Type 2 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 [place] [id number] [place] [address] 14689- 4175 Oct, Other chronic pain G89.29 [place] [address] 14075- 4755 Aug, [place] [address] 20772- 9494 Jul, Other chronic pain G89.29 [place] [address] 32669- 7134 Jul, [place] [address] 06974- 6283 Jul, Chronic kidney disease, stage III (moderate) N18.3 [place] [address] 43624- 1557 Jul, Type 2 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 ; Essential hypertension I10 ; Irregular menstrual cycle N92.6 ; Hypertriglyceridemia E78.1 ; Anxiety disorder, unspecified F41.9 ; Severe episode of recurrent major depressive disorder, without psychotic features F33.2 ; Tonsillolith J35.8 ; Intrinsic eczema L20.84 ; Subclinical hypothyroidism E03.9 ; Viral pharyngitis J02.9 and Encounter for immunization Z23 [place] [address] 79352- 8579 13 Jun, 2017 Essential hypertension I10 [place] [address] 48408- 5091 08 Jun, 2017 [place] [address] 32709- 0381 Jun, [place] [address] 35663- 0377 May, Moderate persistent asthma without complication J45.[address] 02506- 7824 May, Pain in right foot M79.671 ; Pain in left foot M79.672 ; Other chronic pain G89.29 and Chronic prescription opiate use Z79.891 [place] [address] 44779- 8705 May, [place] [id number] [place] [address] 78340- 0666 May, [facility] [place] [address] 39032- 4566 Apr, [place] [id number] [place] [address] 11263- 6460 Apr, Chronic migraine G43.709 [place] [id number] [place] [address] 81375- 2886 Apr, Essential hypertension I10 ; Hypertriglyceridemia E78.1 and Chronic migraine G43.709 [place] [address] 15144- 5910 Apr, [place] [address] 85854- 7083 Apr, Sore throat J02.9 [place] [id number] [place] [address] 66639- 2493 Apr, [place] [id number] [place] [address] 19590- 2722 Mar, Strep pharyngitis J02.0 and Non-intractable vomiting with nausea, unspecified vomiting type R11.2 [place] [id number] [place] [address] 01772- 4402 Mar, [place] [id number] [place] [address] 35503- 0359 Mar, [place] [id number] [place] [address] 88481- 8641 Mar, [place] [id number] [place] [address] 62391- 5301 Mar, Type 2 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 ; Moderate persistent asthma without complication J45.40 ; Status post amputation of toe of left foot Z89.422 ; Acute seasonal allergic rhinitis, unspecified trigger J30.2 and Left shoulder pain, unspecified chronicity M25.512 [place] [address] [address]- 1457 Mar, [facility] [place] [id number] [place] [address] 88920- 4113 February, Pre-op evaluation Z01.818 ; Type 2 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 and Type 2 diabetes mellitus with foot ulcer E11.621 [place] [id number] [place] [address] 76923- 7181 February, [place] [id number] [place] [address] 86448- 9066 February, [place] [id number] [place] [address] 45442- 9186 February, Toe infection L08.9 and Type 2 diabetes mellitus with other specified complication E11.69 [place] [id number] [place] [address] 05351- 0151 February, [place] [id number] [place] [address] 07840- 4205 Jan, Type 2 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 [place] [id number] [place] [address] 91076- 8424 Jan, [place] [address] [place] [address] 37916- 1240 Jan, Right upper quadrant pain R10.11 and Intractable vomiting with nausea, unspecified vomiting type R11.2 [place] [id number] [place] [address] 87637- 2248 Jan, Hypertriglyceridemia E78.1 and Essential hypertension I10 [place] [id number] [place] [address] 92629- 1413 07 Jan, 2017 Essential hypertension I10 ; Type 2 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 and Hypertriglyceridemia E78.1 [place] [id number] [place] [address] 31748- 7887 16 Dec, 2016 Type 2 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 [facility] [place] [address] [place] [address] 57912- 6321 15 Dec, 2016 Hypertriglyceridemia E78.1 ; Essential hypertension I10 ; Type 2 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 ; Anxiety disorder , unspecified F41.9 and Moderate persistent asthma without complication J45.40 [facility] [place] [id number] [place] [address] 60142- 1141 Dec, Type 2 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 [facility] [id number] [place] [address] [id number] Dec, [facility] [place] [address] 50437- 6494 Nov, [facility] [place] [id number] [place] [address] 33172- 0864 Nov, [facility] [place] [id number] [place] [address] 29975- 9950 Nov, [facility] [place] [id number] [place] [address] 26608- 2962 Nov, Toe infection L08.9 [facility] [place] [id number] [place] [address] 08739- 5539 Nov, [facility] [place] [id number] [place] [address] 09678- 5179 Oct, History of amputation of hallux Z89.419 [facility] [place] [address] [place] [address] 63031- 4140 Oct, Type 2 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 [facility] [place] [id number] [place] [address] 45390- 2670 17 Oct, 2016 Type 2 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 [facility] [place] [id number] [place] [address] 97125- 3318 Oct, Acute osteomyelitis of left foot M86.172 ; Pre-op exam Z01.818 and Type 2 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 [facility] [place] [id number] [place] [address] 92976- 1860 Oct, Foot ulcer, left, with unspecified severity L97.529 ; Acute osteomyelitis of left foot M86.172 and Type 2 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 [facility] [place] [id number] [place] [address] 41794- 8306 Sep, [facility] [place] [id number] [place] [address] 16286- 8361 Sep, Intractable vomiting with nausea, unspecified vomiting type R11.2 and Right upper quadrant pain R10.11 [place] [id number] [place] [address] 50926- 3283 Aug, [facility] [place] [id number] [place] [address] 28464- 8883 Jul, [facility] [place] [id number] [place] [address] 74985- 8481 Jul, Preop examination Z01.818 [facility] [place] [id number] [place] [address] 17118- 3471 Jul, [facility] [place] [id number] [place] [address] 70586- 0336 Jul, [facility] [place] [id number] [place] [address] 04448- 5440 Jul, Chronic osteomyelitis of left foot M86.672 and Ulcer of left foot, with unspecified severity L97.529 [place] [id number] [place] [address] 90654- 5900 Jul, Non-pressure chronic ulcer of other part of left foot with unspecified severity L97.529 [facility] [place] [id number] [place] [address] 23359- 2769 Jul, [facility] [place] [address], [place] [address]- 5313 Jul, [facility] [place] [id number] [place] [address] 20966- 4070 Jun, [facility] [place] [id number] [place] [address] 90410- 9173 Jun, [facility] [place] [id number] [place] [address] 41516- 8351 Jun, [facility] [place] [id number] [place] [address] 06274- 6174 Jun, Right upper quadrant pain R10.11 [facility] [place] [id number] [place] [address] 55458- 9611 Jun, [facility] [place] [id number] [place] [address] 54629- 9941 Jun, Intractable vomiting with nausea, unspecified vomiting type R11.2 [facility] [place] [id number] [place] [address] 99080- 4289 13 Jun, 2016 Right upper quadrant pain R10.11 ; Migraine with aura and with status migrainosus, not intractable G43.101 and Intractable vomiting with nausea, unspecified vomiting type R11.2 [facility] [place] [address] [place] [address] 62371- 3664 Jun, [facility] [place] [address] [place] [address] 37541- 5542 06 Jun, 2016 Gastroenteritis K52.9 [facility] [place] [address] [place] [address] 26443- 9633 May, [facility] [place] [id number] [place] [address] 37259- 8795 May, Hypertriglyceridemia E78.1 ; Essential hypertension I10 ; Type 2 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 ; Moderate persistent asthma without complication J45.40 ; Type 2 diabetes mellitus with foot ulcer E11.621 ; Other chronic pain G89.29 ; Pain in right leg M79.604 ; Pain of left leg M79.605 ; Rash and nonspecific skin eruption R21 and Anxiety disorder, unspecified F41.9 [place] [id number] [place] [address] 05437- 2047 May, Essential hypertension I10 ; Hypertriglyceridemia E78.1 ; Upper respiratory infection J06.9 ; Subclinical hypothyroidism E03.9 and Type 2 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 [facility] [place] [id number] [place] [address] 07954- 5227 Apr, Hypertriglyceridemia E78.1 ; Subclinical hypothyroidism E03.9 ; Essential hypertension I10 and Type 2 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 [place] [id number] [place] [address] 53321- 9024 Mar, [place] [address] 59135- 5085 Mar, Ulcer of right heel L97.419 [place] [id number] [place] [address] 06951- 1581 Mar, [place] [id number] [place] [address] 56754- 7767 Mar, [place] [id number] [place] [address] 47809- 7359 February, [place] [id number] [place] [address] 11585- 2012 February, Ulcer of right heel L97.419 and DM neuro manif type II E11.49 [facility] [place] [id number] [place] [address] 96369- 6406 Jan, [place] [id number] [place] [address] 89572- 0895 Jan, Ulcer of right heel L97.419 ; Type 2 diabetes mellitus with foot ulcer E11.621 and Non-pressure chronic ulcer of other part of left foot with unspecified severity L97.529 [facility] [place] [address], [place] [address]- 9564 Jan, [facility] [place] [id number] [place] [address] 48741- 6633 Jan, [facility] [place] [address] [place] [address] 88295- 7979 Jan, Infection of toenail L03.039 [facility] [place] [id number] [place] [address] 79515- 9280 Jan, Blister of toe of left foot, initial encounter S90.425A and Type 2 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 [facility], [place] [id number] [place] [address] 28620- 2228 Jan, [facility] [id number] [place] [address] [id number] -4657 Jan, Sore throat J02.9 and Strep pharyngitis J02.0 [facility], [place] [id number] [place] [address] 51214- 9083 Dec, Type 2 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 ; Upper respiratory infection J06.9 ; Cough R05 and Asthma exacerbation J45.901 [place] [address] [id number] [place] [address] 37464- 5860 Oct, [facility], [place] [id number] [place] [address] 31674- [phone] Oct, [facility], [place] [id number] [place] [address] 27225- 9426 Oct, [facility], [place] [id number] [place] [address] [id number]- [phone] Oct, [facility], [place] [id number] [place] [address] 30068- 3689 Sep, [facility], [place] [id number] [place] [address] 23881- 4326 Aug, Anxiety disorder, unspecified F41.9 and Obesity E66.9 [facility], [place] [id number] [place] [address] 10400- 4654 Aug, Moderate persistent asthma without complication J45.40 [facility], [place] [id number] [place] [address] 01847- 5184 Aug, Anxiety disorder, unspecified F41.9 [place] [address] 76256- 0998 Aug, Chronic migraine G43.709 ; Encounter for immunization Z23 ; Hypertriglyceridemia E78.1 ; Type 2 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 ; Moderate persistent asthma without complication J45.40 and Morbid obesity E66.01 [place] [address] 73800- 5342 Jul, [place] [address] 72031- 2637 Jul, [place] [address] [address] [address] [address]- [address] Jul, [place] [address] [address]- [address] Jul, Subclinical hypothyroidism E03.9 [place] [address] [place] [id number] [place] [address] 87882- 2233 Jun, Essential hypertension, benign 401.1 ; Diabetic ulcer of lower extremity 250.80 ; Asthma 493.90 ; Diabetes mellitus type II, uncontrolled 250.02 and Hyperlipidemia associated with type 2 diabetes mellitus 250.80 [place] [address] [place] [id number] [place] [address] 72255- 6771 Jun, [address] [address]- 9382 Jun, [place] [address] [place] [id number] [place] [address] 32096- 1069 May, [facility] [place] [address] [place] [address] 3220 Apr, [facility] [place] [address] [id number] [place] [address] 53682- 3239 Apr, Viral upper respiratory infection 465.9 and Asthma 493.90 [facility] [place] [address] [id number] [place] [address] 88835- 7838 Mar, Abnormal ankle brachial index 796.4 [facility] [place] [address] [id number] [place] [address] 02660- 5829 February, [facility] [place] [id number] [place] [address] 50616- 0992 February, Essential hypertension, benign 401.1 [facility] [place] [address] [id number] [place] [address] 82035- 2860 February, Diabetic peripheral neuropathy 250.60 ; Ulcer of heel and midfoot 707.14 and Decreased pedal pulses 785.9 [facility] [place] [address] [id number] [place] [address] 50402- 8179 February, [facility] [place] [id number] [place] [address] 24697- 3419 February, [facility] [place] [id number] [place] [address] 19437- 7708 Jan, [facility] [place] [address] [address] 1943 Jan, [facility] [place] [address] [address] [id number] [place] [address] 16963- 5064 Dec, [facility] [place] [id number] [address] 1436 Dec, [facility] [place] [id number] [place] [address] 62933- 1513 Nov, [facility] [place] [address], [place] [address]- 4045 Nov, [facility], [place] [address] [place] [address] [id number] [place] [address]- 1771 24 Nov, 2014 [facility] [place] [facility] [address] [id number] [place] [address] 2546 Nov, [facility] [place] [facility] [address] [id number] [place] [address] 2546 18 Nov, 2014 [facility] [place] [facility] [address] [id number] [place] [address] 2546 Nov, 2014 [facility] [place] [facility] [address] [id number] [place] [address] 2546 Nov, 2014 [facility] [place] [facility] [address] [id number] [place] [address]- 3046 Nov, [facility] [place] [facility] [address] [id number] [place] [address]- 9849 Nov, [facility] [place] [facility] [address] [id number] [place] [address]- 8022 Oct, [facility] [place] [facility] [address] [id number] [place] [address]- 3891 Oct, [facility] [place] [facility] [address] [id number] [place] [address]- 9511 Oct, [facility] [place] [facility] [address] [id number] [place] [address]- 5425 Oct, [facility] [place] [facility] [address] [id number] [place] [address] 2541 Oct, [facility] [place] [facility] [address] [id number] [place] [address] 2545 Oct, [facility] [place] [facility] [address] [id number] [place] [address] 2546 Oct, [facility] [place] [facility] [address] [id number] [place] [address] 2546 Oct, [facility] [place] [facility] [address] [id number] [place] [address]- 8220 Oct, [facility] [place] [facility] [address] [id number] [place] [address]- 7371 Oct, [facility] [place] [facility] [address] [id number] [place] [address]- 6132 Oct, [facility] [place] [facility] [address] [id number] [place] [address]- 8560 Oct, [facility] [place] [facility] [address] [id number] [place] [address]- 0932 Oct, [facility] [place] [facility] [address] [id number] [place] [address]- 8051 Sep, [facility] [place] [facility] [address] [id number] [place] [address]- 9428 Sep, [facility] [place] [facility] [address] [id number] [place] [address]- 7404 Sep, [facility] [place] [facility] [address] [id number] [place] [address]- 1309 Sep, [facility] [place] [facility] [address] [id number] [place] [address]- 4776 Sep, [facility] [place] [facility] [address] [id number] [place] [address]- 9221 Sep, [facility] [place] [facility] [address] [id number] [place] [address]- 4943 Sep, [facility] [place] [facility] [address] [id number] [place] [address]- 3619 Sep, [facility] [place] [facility] [address] [id number] [place] [address]- 0601 Sep, [facility] [place] [facility] [address] [id number] [place] [address]- 5513 Sep, [facility] [place] [facility] [address] [id number] [place] 2623 Sep, [facility] [place] [facility] [address] [id number] [place] [address]- 0479 Sep, [facility] [place] [facility] [address] [id number] [place] [address]- 9897 Sep, [facility] [place] [facility] [address] [id number] [place] 8652 Sep, [facility] [place] [facility] [address] [id number] [place] [address]- 7124 Sep, [facility] [place] [facility] [address] [id number] [place] [address]- 1984 Sep, [facility] [place] [facility] [address] [id number] [place] [address]- 5248 Aug, [facility] [place] [facility] [address] [id number] [place] [address]- 9934 Aug, [facility] [place] [facility] [address] [id number] [place] [address]- 3666 Aug, [facility] [place] [facility] [address] [id number] [place] [address]- 6333 Aug, [facility] [place] [facility] [address] [id number] [place] [address]- 6845 Aug, [facility] [place] [facility] [address] [facility] [id number] [place] [address]- 7133 Aug, [facility] [place] [facility] [address] [id number] [place] [address]- 7427 Aug, [facility] [place] [facility] [address] [id number] [place] [address]- 0131 Aug, [facility] [place] [facility] [address] [id number] [place] [address]- 9998 Jul, [facility] [place] [facility] [address] [id number] [place] [address]- 4729 Jul, [facility] [place] [facility] [address] [id number] [place] 8913 Jul, [facility] [place] [facility] [address] [id number] [place] [address]- 6131 Jul, [facility] [place] [facility] [address] [id number] [place] [address]- 7356 Jul, [facility] [place] [facility] [address] [id number] [place] [address]- 4733 Jun, [facility] [place] [facility] [address] [id number] [place] [address]- 9544 Jun, [facility] [place] [facility] [address] [id number] [place] [address]- 1043 Jun, [facility] [place] [facility] [address] [id number] [place] [address]- 7254 Jun, [facility] [place] [facility] [address] [id number] [place] [address]- 0601 Jun, [facility] [place] [facility] [address] [id number] [place] [address]- 9976 May, [facility] [place] [facility] [address] [id number] [place] [address]- 8479 May, [facility] [place] [facility] [address] [id number] [place] [address]- 6332 Apr, [facility] [place] [facility] [address] [id number] [place] [address]- 5256 Apr, [facility] [place] [facility] [address] [id number] [place] [address]- 0996 Apr, [facility] [place] [facility] [address] [id number] [place] [address]- 0953 Apr, [facility] [place] [facility] [address] [id number] [place] [address]- 8164 Apr, [facility] [place] [facility] [address] [id number] [place] [address]- 7921 Apr, [facility] [place] [facility] [address] [id number] [place] [address]- 3531 Mar, [facility] [place] [facility] [address] [id number] [place] [address]- 5654 Mar, [facility] [place] [facility] [address] [id number] [place] [address]- 2302 Mar, [facility] [place] [facility] [address] [id number] [place] [address]- 8222 Mar, [facility] [place] [facility] [address] [id number] [place] [address]- 0106 Mar, [facility] [place] [facility] [address] [id number] [place] [address]- 0676 Mar, [facility] [place] [facility] [address] [id number] [place] [address]- 0063 Mar, [facility] [place] [facility] [address] [id number] [place] [address]- 5148 Mar, [facility] [place] [facility] [address] [id number] [place] [address]- 4273 Mar, [facility] [place] [facility] [address] [id number] [place] [address]- 7375 Mar, [facility] [place] [facility] [address] [id number] [place] [address]- 7712 Mar, [facility] [place] [facility] [address] [id number] [place] [address]- 9501 Mar, [facility] [place] [facility] [address] [id number] [place] [address]- 1642 Mar, [facility] [place] [facility] [address] [id number] [place] [address]- 2764 Mar, [facility] [place] [facility] [address] [id number] [place] [address]- 2372 Mar, [facility] [place] [facility] [address] [id number] [place] [address]- 3169 Mar, [facility] [place] [facility] [address] [id number] [place] [address]- 2777 February, [facility] [address] [id number] [place] [address]- 4663 February, [facility] [address] [id number] [place] [address]- 2475 February, [facility] [address] [id number] [place] [address]- 5324 February, [facility] [address] [id number] [place] [address]- 5714 February, [facility] [address] [id number] [place] [address]- 2992 February, [facility] [address] [id number] [place] [address]- 5974 February, [facility] [address] [id number] [place] [address]- 3380 February, [facility] [address] [id number] [place] [address]- 1902 Jan, [facility] [address] [id number] [place] [address]- 0979 Jan, [facility] [address] [id number] [place] [address]- 5228 Dec, [facility] [place] [facility] [address] [id number] [place] [address]- 3928 Dec, [facility] [place] [facility] [address] [id number] [place] [address]- 1291 Dec, [facility] [place] [facility] [address] [id number] [place] [address]- 2270 Dec, [facility] [place] [facility] [address] [id number] [place] [address]- 0473 Dec, [facility] [place] [facility] [address] [id number] [place] [address]- 3059 Dec, [facility] [place] [facility] [address] [id number] [place] [address]- 4441 19 Dec, 2013 [facility] [place] [facility] [address] [id number] [place] [address]- 8385 19 Dec, 2013 [facility] [place] [facility] [address] [id number] [place] [address]- 0154 17 Dec, 2013 [facility] [place] [facility] [address] [id number] [place] [address]- 5684 17 Dec, 2013 [facility] [place] [facility] [address] [id number] [place] [address]- 6500 14 Dec, 2013 [facility] [place] [facility] [address] [id number] [place] [address]- 4127 14 Dec, 2013 [facility] [place] [facility] [address] [id number] [place] [address]- 4418 Dec, [facility] [place] [facility] [address] [id number] [place] [address]- 2732 Dec, [facility] [place] [facility] [address] [id number] [place] [address]- 7222 Nov, [facility] [place] [facility] [address] [id number] [place] [address]- 8070 Nov, [facility] [place] [facility] [address] [id number] [place] [address]- 2024 Oct, [facility] [place] [facility] [address] [id number] [place] [address]- 9545 Oct, [facility] [place] [facility] [address] [id number] [place] [address]- 9605 Oct, [facility] [place] [facility] [address] [id number] [place] [address]- 7702 Oct, [facility] [place] [facility] [address] [id number] [place] [address]- 1375 Oct, [facility] [place] [facility] [address] [id number] [place] [address]- 3229 06 Oct, 2013 [facility] [address] [id number] [place] [address]- 2652 Oct, [facility] [address] [id number] [place] [address]- 8614 31 Sep, 2013 [facility] [address] [id number] [place] [address]- 9896 30 Sep, 2013 [facility] [place] [facility] [address] [id number] [place] [address]- 2738 30 Sep, 2013 [facility] [address] [id number] [place] [address]- 6276 29 Sep, 2013 [facility] [address] [id number] [place] [address]- 3012 Sep, [facility] [address] [id number] [place] [address]- 5717 Sep, [facility] [address] [id number] [place] [address]- 6857 Sep, [facility] [address] [id number] [place] [address]- 6680 Sep, [facility] [address] [id number] [place] [address]- 9191 24 Sep, 2013 [facility] [place] [facility] [address] [id number] [place] [address]- 3903 24 Sep, 2013 [facility] [place] [facility] [address] [id number] [place] [address]- 2548 Sep, [facility] [place] [facility] [address] [id number] [place] [address]- 5462 Sep, [facility] [place] [facility] [address] [id number] [place] 3746 16 Sep, 2013 [facility] [place] [facility] [address] [id number] [place] 1427 16 Sep, 2013 [facility] [place] [facility] [address] [id number] [place] [address]- 3183 Sep, [facility] [place] [facility] [address] [id number] [place] [address]- 8305 Sep, [facility] [place] [facility] [address] [id number] [place] [address]- 9084 Sep, [facility] [place] [facility] [address] [id number] [place] [address]- 8801 Sep, [facility] [place] [facility] [address] [id number] [place] [address]- 3940 Sep, [facility] [place] [facility] [address] [id number] [place] [address]- 9604 Aug, [facility] [place] [facility] [address] [id number] [place] [address]- 1536 Aug, [facility] [place] [facility] [address] [id number] [place] [address]- 2721 Aug, [facility] [place] [facility] [address] [id number] [place] [address]- 9178 Aug, [facility] [place] [facility] [address] [id number] [place] [address]- 7913 Aug, [facility] [place] [facility] [address] [id number] [place] [address]- 9663 Aug, [facility] [place] [facility] [address] [id number] [place] [address]- 6151 Aug, [facility] [place] [facility] [address] [id number] [place] [address]- 7061 Aug, [facility] [place] [facility] [address] [id number] [place] [address]- 9704 Aug, [facility] [place] [facility] [address] [id number] [place] [address]- 1478 Aug, [facility] [place] [facility] [address] [id number] [place] [address]- 2948 Aug, [facility] [place] [facility] [address] [id number] [place] [address]- 7936 Aug, [facility] [place] [facility] [address] [id number] [place] [address]- 0007 Aug, [facility] [place] [facility] [address] [facility] [id number] [place] [address]- 8431 Aug, [facility] [place] [facility] [address] [id number] [place] [address]- 7580 Aug, [facility] [place] [facility] [address] [id number] [place] [address]- 8684 Aug, [facility] [place] [facility] [address] [id number] [place] [address]- 9237 Aug, [facility] [place] [facility] [address] [id number] [place] [address]- 6901 Jul, [facility] [place] [facility] [address] [id number], [place] [address]- 8297 Jul, [facility] [place] [facility] [address] [id number] [place] [address]- 7480 Jul, [facility] [place] [facility] [address] [id number], [place] [address]- 1688 Jul, [facility] [place] [facility] [address] [id number], [place] [address]- 6455 Jul, [facility] [place] [facility] [address] [id number], [place] [address]- 1346 Jul, [facility] [place] [facility] [address] [id number] [place] [address]- 4829 Jul, [facility] [place] [facility] [address] [facility] [id number], [place] [address]- 6790 Jun, [facility] [place] [facility] [address] [id number], [place] [address]- 8962 20 Jun, 2013 [facility] [place] [facility] [id number], [place] [address]- 0927 17 Jun, 2012 [facility] [place] [id number], [place] [address]- 9452 10 Jun, 2012 [facility] [place] [id number] [address]- 7481 06 Jun, 2012 [facility] [place] [id number], [place] [address]- 9196 06 Jun, 2012 [facility] [place] [id number], [place] [address]- 8090 05 Jun, 2012 [facility] [place] [id number], [place] [address]- 5323 Jun, [facility] [place] [id number], [place] [address]- 4621 May, [facility] [place] [id number], [place] [address]- 6793 May, [facility] [place] [id number], [place] [address] May, 2013 [facility], [place] [id number], [place] [address] May, [facility], [place] [id number], [place] [address] May, [facility], [place] [id number], [place] [address] May, [facility], [place] [id number], [place] [address] May, [facility], [place] [id number], [place] [address] May, IMMUNIZATIONS No Known Immunizations SOCIAL HISTORY Never Assessed REASON FOR VISIT Abscess--[place], Abscess in groin area that has been there for a few days and is getting worse PLAN OF CARE Activity Details Follow Up prn with PCP Gato Reason: VITAL SIGNS Height 62 in 2018-05-31 Weight 349.2 lbs 2018-05-31 Temperature 98.4 degrees Fahrenheit 2018-05-31 Heart Rate 90 bpm 2018-05-31 Respiratory Rate 20 2018-05-31 BMI 63.86 kg/m2 2018-05-31 Blood pressure systolic 122 mmHg 2018-05-31 Blood pressure diastolic 78 mmHg 2018-05-31 MEDICATIONS Medication Instructions Dosage Frequency Start Date End Date Duration Status ProAir HFA 108 (90 Base) MCG/ACT Inhalation every 6 hrs 2 puffs as needed 6h February, Active Pulmicort Flexhaler 180 MCG/ACT Inhalation Twice a day 1 puff 12h 19 Mar, 2018 Active Montelukast Sodium 10 MG TAKE ONE TABLET BY MOUTH ONCE DAILY IN THE EVENING 90 Active Metformin HCl 1000 MG Orally 2 times a day 1 tablet with meals 12h 90 Active Probiotic - Active Multivitamin 1 Tablet 1 time per day May, Active Atorvastatin Calcium 80 MG TAKE ONE TABLET BY MOUTH ONCE DAILY 90 Active Flonase 50 MCG/ACT Nasally Once a day 1 spray in each nostril 24h 30 Jan, 2018 30 day(s) Active Excedrin Migraine 250-250-65 MG Orally as directed 2 tablets as needed Active Metoprolol Tartrate 50 MG TAKE ONE TABLET BY MOUTH TWICE DAILY WITH FOOD 90 Active NovoLog Flexpen 100 UNIT/ML Subcutaneous 3 times a day 30 units 8h Active Test strips One Touch Ultra as directed 6h Dec, Active Glucometer One Touch Ultra as directed Dec, Active Zofran 8 MG Orally every 8 hours, PRN as directed Dec, Active Doxycycline Monohydrate 100 mg Orally twice a day x 10 days 1 capsule Active Levemir Flexpen 100 UNIT/ML subcutaneously 2 times a day 50 units 12h Active Cromolyn Sodium 4 % Ophthalmic 2 times a day 2 drops into affected eye as needed 12h February, Active Pulmicort Flexhaler 90 MCG/ACT Inhalation Twice a day 2 puffs 12h Active Loratadine 10 MG TAKE ONE TABLET BY MOUTH ONCE DAILY 30 Active Sertraline HCl 100 MG TAKE ONE TABLET BY MOUTH ONCE DAILY 90 Active Hydrochlorothiazide 25 MG TAKE ONE TABLET BY MOUTH ONCE DAILY 90 Active Hydrocodone-Acetaminophen 5-325 MG Orally every 4- 6 hrs as needed 1 tablet Nov, Active Gabapentin 600 MG TAKE ONE (1) TABLET BY MOUTH THREE (3) TIMES DAILY 90 Active Lisinopril 40 MG TAKE ONE TABLET BY MOUTH ONCE DAILY 90 Active Fenofibrate 160 MG TAKE ONE TABLET BY MOUTH ONCE DAILY WITH A MEAL 90 Active RESULTS No Results PROCEDURES Procedure Date Ordered Result Body Site DRAINAGE OF SKIN ABSCESS May 31, 2018 INSTRUCTIONS MEDICATIONS ADMINISTERED No Known Medications MEDICAL (GENERAL) HISTORY Type Description Date Medical History type I diabetes Medical History hypertension Medical History hyperlipidemia Medical History asthma Medical History migraine headaches Medical History allergic rhinitis Medical History neuropathy Medical History Chronic osteomyelitis, site unspecified Medical History 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 12/23 Hospitalization History Surgery Hospitalizations
--- OUTSIDE RECORDS SUMMARY | 2018-08-22 08:54 | XMS REPORT ---
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 Name Role Phone FARNAZ FLORENCEY Unavailable PROBLEMS Type Condition ICD9-CM Code ICR55-UE Code Onset Dates Condition Status SNOMED Code Problem Subclinical hypothyroidism E03.9 Active 43047670 Problem Hypertriglyceridemia E78.1 Active 952197024 Problem Type 2 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 Active 562429506 Problem Type 2 diabetes mellitus with diabetic chronic 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 Active 659986608 Problem Other chronic pain G89.29 Active 60406059 Problem Type 2 diabetes mellitus with other skin complications E11.628 Active 29924513 Problem Pain in left foot M79.672 Active 62923510 Problem Irregular menstrual cycle N92.6 Active 53327562 Problem Pain in right foot M79.671 Active 56373050 Problem Tonsillolith J35.8 Active 9792344 Problem Chronic prescription opiate use Z79.891 Active 992256995 Problem Seasonal allergic rhinitis due to pollen J30.1 Active 76392090 Problem Asthma exacerbation, mild J45.901 Active 273213997 Problem Chronic kidney disease, stage III (moderate) N18.3 Active 703325897 Problem Chronic migraine G43.709 Active 76762584 Problem Moderate persistent asthma without complication J45.40 Active 508946108 Problem Intrinsic eczema L20.84 Active 50209654 Problem Severe episode of recurrent major depressive disorder, without psychotic features F33.2 Active 57662679 Problem Non-pressure chronic ulcer of right heel and midfoot limited to breakdown of skin L97.411 Active 848355514 Problem Ulcer of right heel L97.419 Active 006356635 Problem Obesity E66.9 Active 837796388 Problem Type 2 diabetes mellitus with foot ulcer E11.621 Active 45648946 Problem Essential hypertension I10 Active 46836389 Problem Anxiety disorder, unspecified F41.9 Active 975164583 Problem Type 2 diabetes mellitus with other specified complication E11.69 Active 182230806 Problem Status post amputation of toe of left foot Z89.422 Active 112404142 Problem DM neuro manif type II E11.49 Active 44387708 Problem History of amputation of hallux Z89.419 Active 962587652 ALLERGIES No Information ENCOUNTERS Encounter Location Date Diagnosis [facility] [address] [address] 28 Jun, 2018 [facility] [address] [address]42- 3[address] 26 Jun, 2018 [facility] [address] 46744- 4995 07 Jun, 2018 Type 2 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 [place] [id number] [address]- [address] 27 May, 2018 [place] [address] 56674- 0619 May, [facility] [address] [address]- 4059 May, Nausea R11.0 [place] [address] 34304- 4009 May, Other chronic pain G89.29 and Nausea R11.0 [facility] [address] 8[address]- 4950 May, Left genital labial abscess N76.4 and BMI 60.0-69.9, adult Z68.44 [place] [address] 01160- 5273 May, [place] [address] 46117- 7815 Apr, [place] [address] 79813- 1348 Apr, Chronic migraine G43.709 [place] [address] 44394- 8796 Apr, [facility] [address] [place] [id number] [place] [address] 23299- 4219 Mar, Moderate persistent asthma without complication J45.40 [facility] [address] [place] [id number] [place] [address] 77469- 5471 Mar, Moderate persistent asthma without complication J45.40 [facility] [address] [place] [id number] [place] [address] 43806- 7441 Mar, [facility] [address] [place] [id number] [place] [address] 62983- 0896 February, Chronic migraine G43.709 [facility] [address] [place] [id number] [place] [address] 85653- 0660 February, Chronic migraine G43.709 [facility] [address] [place] [id number] [place] [address] 44509- 6332 February, [facility] [address] [place] [id number] [place] [address] 47506- 2529 February, [facility] [address] [place] [id number] [place] [address] 10522- 2859 February, Type 2 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 ; Moderate persistent asthma without complication J45.40 ; Type 2 diabetes mellitus with foot ulcer E11.621 ; Non-pressure chronic ulcer of right heel and midfoot limited to breakdown of skin L97.411 ; Chronic migraine G43.709 and BMI 60.0-69.9, adult Z68.44 [facility] [id number] [place] [address] 75954 -7829 Jan, Asthma exacerbation, mild J45.901 ; Seasonal allergic rhinitis due to pollen J30.1 and BMI 60.0-69.9, adult Z68.44 [facility] [address] [address] Jan, [facility] [address] [place] [id number] [place] [address] 22482- 4321 Jan, Other chronic pain G89.29 [place] [address] [place] [id number] [place] [address] 86510- 8003 30 Dec, 2017 Type 2 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 [place] [address] [place] [id number] [place] [address] 75712- 9945 19 Dec, 2017 Type 2 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 [place] [address] 27302- 1193 15 Dec, 2017 [place] [address] [place] [id number] [place] [address] 08785- 2467 14 Dec, 2017 [place] [address] 19554- 7143 13 Dec, 2017 Chronic kidney disease, stage III (moderate) N18.3 [facility] [address] 98120 -0852 09 Dec, 2017 Nausea R11.0 and Diarrhea, unspecified type R19.7 [place] [address] [place] [id number] [place] [address] 90012- 6176 07 Dec, 2017 Chronic kidney disease, stage III (moderate) N18.3 and Type 2 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 [place] [address] [place] [id number] [place] [address] 54058- 0553 Dec, [place] [address] 73600- 8818 Nov, Ulcer of right heel L97.419 and Type 2 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 [facility] [address] [id number] Nov, Dental examination Z01.20 [place] [address] [place] [id number] [place] [address] 49368- 6148 Nov, Open wound of right foot, initial encounter S91.301A [facility] [address] [place] [id number] [place] [address] 95352 -0803 Nov, Open wound of right foot, initial encounter S91.301A ; Non- intractable vomiting with nausea, unspecified vomiting type R11.2 and BMI 60.0- 69.9, adult Z68.44 [place] [address] [place] [id number] [place] [address] 32071- 4336 Nov, [place] [address] 58280- 5573 Nov, Other chronic pain G89.29 [place] [address] 20681- 2404 Oct, Cellulitis of right lower limb L03.115 [place] [address] 22632- 8650 Oct, [place] [address] 37717- 7392 Oct, [place] [address] [place] [id number] [place] [address] 93676- 6651 Oct, Cat scratch W55.03XA ; Cellulitis of right lower limb L03.115 ; Acute nasopharyngitis J00 ; BMI 60.0-69.9, adult Z68.44 and Cough R05 [place] [address] [place] [id number] [place] [address] 98534- 1676 Oct, Cat scratch W55.03XA ; Cutaneous abscess of right lower extremity L02.415 and Cellulitis of right lower limb L03.115 [place] [address] [place] [id number] [place] [address] 05056- 7957 Oct, Type 2 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 [place] [address] 64128- 9593 Oct, Other chronic pain G89.29 [place] [address] 49625- 2940 Aug, [place] [address] [place] [id number] [place] [address] 10441- 6186 Jul, Other chronic pain G89.29 [place] [address] 27952- 5235 Jul, [place] [address] 28957- 2183 Jul, Chronic kidney disease, stage III (moderate) N18.3 [place] [address] 76729- 9336 04 Jul, 2017 Type 2 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 ; Essential hypertension I10 ; Irregular menstrual cycle N92.6 ; Hypertriglyceridemia E78.1 ; Anxiety disorder, unspecified F41.9 ; Severe episode of recurrent major depressive disorder, without psychotic features F33.2 ; Tonsillolith J35.8 ; Intrinsic eczema L20.84 ; Subclinical hypothyroidism E03.9 ; Viral pharyngitis J02.9 and Encounter for immunization Z23 [place] [address] [place] [id number] [place] [address] 44364- 4762 13 Jun, 2017 Essential hypertension I10 [place] [id number] [place] [address] 71080- 1934 08 Jun, 2017 [place] [address] [place] [id number] [place] [address] 66262- 6031 Jun, [place] [address] [place] [id number] [place] [address] 74291- 6734 May, Moderate persistent asthma without complication J45.40 [place] [address] 09117- 2601 May, Pain in right foot M79.671 ; Pain in left foot M79.672 ; Other chronic pain G89.29 and Chronic prescription opiate use Z79.891 [place] [address] [place] [id number] [place] [address] 42186- 1661 May, [place] [address] [place] [id number] [place] [address] 92870- 2723 May, [place] [address] [place] [id number] [place] [address] 84607- 1014 Apr, [place] [address] [place] [id number] [place] [address] 51131- 8060 Apr, Chronic migraine G43.709 [place] [address] 62917- 2272 Apr, Essential hypertension I10 ; Hypertriglyceridemia E78.1 and Chronic migraine G43.709 [place] [address] [place] [id number] [place] [address] 25609- 6154 Apr, [place] [address] [place] [id number] [place] [address] 70053- 0032 Apr, Sore throat J02.9 [place] [id number] [place] [address] 65240- 8559 Apr, [place] [address] [place] [id number] [place] [address] 78426- 2119 Mar, Strep pharyngitis J02.0 and Non-intractable vomiting with nausea, unspecified vomiting type R11.2 [place] [id number] [place] [address] 43819- 2072 Mar, [place] [address] [place] [id number] [place] [address] 70666- 7994 Mar, [place] [address] [place] [id number] [place] [address] 81109- 3686 Mar, [place] [address] [place] [id number] [place] [address] 06042- 0611 Mar, Type 2 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 ; Moderate persistent asthma without complication J45.40 ; Status post amputation of toe of left foot Z89.422 ; Acute seasonal allergic rhinitis, unspecified trigger J30.2 and Left shoulder pain, unspecified chronicity M25.512 [place] [id number] [address]- 3271 Mar, [place] [address] [place] [id number] [place] [address] 16171- 7415 February, Pre-op evaluation Z01.818 ; Type 2 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 and Type 2 diabetes mellitus with foot ulcer E11.621 [place] [address] [place] [id number] [place] [address] 75879- 5455 February, [place] [address] [place] [id number] [place] [address] 02456- 5065 February, [place] [address] [place] [id number] [place] [address] 09247- 9286 February, Toe infection L08.9 and Type 2 diabetes mellitus with other specified complication E11.69 [place] [address] [place] [id number] [place] [address] 83081- 8753 February, [place] [address] [place] [id number] [place] [address] 21346- 7329 Jan, Type 2 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 [place] [address] [place] [id number] [place] [address] 28872- 9943 Jan, [place] [address] [place] [id number] [place] [address] 39597- 5783 Jan, Right upper quadrant pain R10.11 and Intractable vomiting with nausea, unspecified vomiting type R11.2 [place] [id number] [place] [address] 11118- 8669 Jan, Hypertriglyceridemia E78.1 and Essential hypertension I10 [place] [address] [place] [id number] [place] [address] 13554- 3146 07 Jan, 2017 Essential hypertension I10 ; Type 2 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 and Hypertriglyceridemia E78.1 [place] [address] [place] [id number] [place] [address] 56847- 7815 Dec, Type 2 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 [facility] [address] [address]- 9407 Dec, Hypertriglyceridemia E78.1 ; Essential hypertension I10 ; Type 2 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 ; Anxiety disorder , unspecified F41.9 and Moderate persistent asthma without complication J45.40 [facility] [address] [place] [id number] [place] [address] 31912- 6285 Dec, Type 2 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 [facility] [address] [place] [id number] [place] [address] [id number] Dec, [facility] [address] [place] [id number] [place] [address] 97831- 3250 Nov, [facility] [address] [place] [id number] [place] [address] 54285- 8114 Nov, [facility] [address] [place] [id number] [place] [address] 83278- 8028 Nov, [facility] [address] [place] [id number] [place] [address] 77893- 6859 Nov, Toe infection L08.9 [facility] [address] [place] [id number] [place] [address] 96968- 9624 Nov, [facility] [id number] [place] [address] 97809- 1078 Oct, History of amputation of hallux Z89.419 [facility] [id number] [place] [address] 63213- 8868 Oct, Type 2 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 [facility] [address] [place] [id number] [place] [address] 07622- 0331 Oct, Type 2 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 [facility] [address] [address]- 2881 Oct, Acute osteomyelitis of left foot M86.172 ; Pre-op exam Z01.818 and Type 2 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 [facility] [address] [place] [id number] [place] [address] 53881- 2044 Oct, Foot ulcer, left, with unspecified severity L97.529 ; Acute osteomyelitis of left foot M86.172 and Type 2 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 [facility] [address] [place] [id number] [place] [address] 51739- 0613 Sep, [facility] [address] [place] [id number] [place] [address] 52117- 0609 Sep, Intractable vomiting with nausea, unspecified vomiting type R11.2 and Right upper quadrant pain R10.11 [facility] [address] [place] [id number] [place] [address] 41837- 0499 Aug, [place] [address] [place] [id number] [place] [address] 46028- 0762 Jul, [facility] [address] [place] [id number] [place] [address] 47718- 1051 Jul, Preop examination Z01.818 [facility] [address] [place] [id number] [place] [address] 89465- 7629 Jul, [facility] [address] [place] [id number] [place] [address] 49730- 9671 Jul, [facility] [address] [place] [id number] [place] [address] 43381- 7095 Jul, Chronic osteomyelitis of left foot M86.672 and Ulcer of left foot, with unspecified severity L97.529 [place] [address] [place] [id number] [place] [address] 40994- 1179 Jul, Non-pressure chronic ulcer of other part of left foot with unspecified severity L97.529 [facility] [address] [place] [id number] [place] [address] 32420- 3769 Jul, [facility] [address] [place] [address]- 2631 Jul, [facility] [address] [place] [id number] [place] [address] 24874- 3395 28 Jun, 2016 [facility] [address] [place] [id number] [place] [address] 03791- 3198 Jun, [facility] [address] [place] [id number] [place] [address] 46628- 8035 Jun, [facility] [address] [place] [id number] [place] [address] 33965- 5004 Jun, Right upper quadrant pain R10.11 [facility] [address] [place] [id number] [place] [address] 40765- 6982 Jun, [facility] [address] [place] [id number] [place] [address] 00167- 3154 Jun, Intractable vomiting with nausea, unspecified vomiting type R11.2 [facility] [address] [place] [id number] [place] [address] 00293- 7408 13 Jun, 2016 Right upper quadrant pain R10.11 ; Migraine with aura and with status migrainosus, not intractable G43.101 and Intractable vomiting with nausea, unspecified vomiting type R11.2 [facility] [id number] [place] [address] 89405- 6356 12 Jun, 2016 [facility] [address] [place] [id number] [place] [address] 33664- 9187 Jun, Gastroenteritis K52.9 [facility] [id number] [place] [address] 58961- 3825 May, [facility] [address] [place] [id number] [place] [address] 15873- 7400 May, Hypertriglyceridemia E78.1 ; Essential hypertension I10 ; Type 2 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 ; Moderate persistent asthma without complication J45.40 ; Type 2 diabetes mellitus with foot ulcer E11.621 ; Other chronic pain G89.29 ; Pain in right leg M79.604 ; Pain of left leg M79.605 ; Rash and nonspecific skin eruption R21 and Anxiety disorder, unspecified F41.9 [place] [address] [place] [id number] [place] [address] 21893- 1563 May, Essential hypertension I10 ; Hypertriglyceridemia E78.1 ; Upper respiratory infection J06.9 ; Subclinical hypothyroidism E03.9 and Type 2 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 [place] [address] 84927- 9389 Apr, Hypertriglyceridemia E78.1 ; Subclinical hypothyroidism E03.9 ; Essential hypertension I10 and Type 2 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 [place] [address] 28642- 9385 Mar, [place] [address] 41517- 4015 Mar, Ulcer of right heel L97.419 [place] [address] [place] [id number] [place] [address] 42487- 8185 Mar, [place] [address] 24455- 0006 Mar, [place] [address] [place] [id number] [place] [address] 19954- 5937 February, [place] [address] [place] [id number] [place] [address] 32045- 5378 February, Ulcer of right heel L97.419 and DM neuro manif type II E11.49 [facility] [address] [place] [id number] [place] [address] 00535- 9045 Jan, [facility] [address] 56212- 6318 Jan, Ulcer of right heel L97.419 ; Type 2 diabetes mellitus with foot ulcer E11.621 and Non-pressure chronic ulcer of other part of left foot with unspecified severity L97.529 [place] [address] [place] [address]- 5075 Jan, [facility] [address] [place] [id number] [place] [address] 42812- 4003 Jan, [facility] [address] [place] [id number] [place] [address] 97163- 3316 Jan, Infection of toenail L03.039 [facility] [address] [place] [id number] [place] [address] 70403- 1184 14 Jan, 2016 Blister of toe of left foot, initial encounter S90.425A and Type 2 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 [facility] [address] [place] [id number] [place] [address] 65625- 3010 Jan, [facility] [id number] [place] [address] 70658 -4233 Jan, Sore throat J02.9 and Strep pharyngitis J02.0 [facility] [address] [place] [id number] [place] [address] 19825- 2644 Dec, Type 2 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 ; Upper respiratory infection J06.9 ; Cough R05 and Asthma exacerbation J45.901 [facility] [id number] [place] [address] 46698- 1751 Oct, [facility] [id number] [place] [address] 11688- 3142 Oct, [facility] [address] [place] [id number] [place] [address] 20047- 7991 Oct, [facility] [id number] [place] [address] 79264- 3558 Oct, [facility] [address] [place] [id number] [place] [address] 71783- 6996 Sep, [facility] [id number] [place] [address] 35122- 6898 Aug, Anxiety disorder, unspecified F41.9 and Obesity E66.9 [facility] [address] [place] [id number] [place] [address] 10031- 4292 Aug, Moderate persistent asthma without complication J45.40 [facility] [address] [place] [id number] [place] [address] 42620- 4447 Aug, Anxiety disorder, unspecified F41.9 [place] [address] 22785- 4752 Aug, Chronic migraine G43.709 ; Encounter for immunization Z23 ; Hypertriglyceridemia E78.1 ; Type 2 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 ; Moderate persistent asthma without complication J45.40 and Morbid obesity E66.01 [place] [address] [place] [id number] [place] [address] 30285- 4038 Jul, [facility] [address] [place] [id number] [place] [address] 34939- 0067 Jul, [facility] [address] [place] [id number] [place] [address] 66170- 7427 Jul, [facility] [id number] [place] [address] [id number]- [id number] Jul, Subclinical hypothyroidism E03.9 [facility] [id number] [place] [address] [phone]- [phone] Jun, Essential hypertension, benign 401.1 ; Diabetic ulcer of lower extremity 250.80 ; Asthma 493.90 ; Diabetes mellitus type II, uncontrolled 250.02 and Hyperlipidemia associated with type 2 diabetes mellitus 250.80 [facility] [id number] [place] [address] [phone] 18 Jun, 2015 [place] [address] [id number]- [phone] Jun, [facility] [id number] [place] [address] [phone] May, [facility] [address] [phone]- [phone] Apr, [facility] [address] [id number], [place] [address] Apr, Viral upper respiratory infection 465.9 and Asthma 493.90 [facility] [id number], [place] [address] Mar, Abnormal ankle brachial index 796.4 [facility] [id number] [place] [address] 141578- 6581 February, [facility] [id number] [place] [address] 259307- 3354 February, Essential hypertension, benign 401.1 [facility] [id number] [place] [address] 985061- 6768 February, Diabetic peripheral neuropathy 250.60 ; Ulcer of heel and midfoot 707.14 and Decreased pedal pulses 785.9 [facility] [id number] [place] [address] 49[address]- 4806 February, [facility] [id number] [place] [address] 330600- 4250 February, [facility] [id number] [place] [address] 16695- 6084 Jan, [facility] [id number], [place] [address] 58[address] Jan, [facility] [id number] [place] [address] 27863- 3146 Dec, [facility] [id number] [place] [address] 04817- 3390 Dec, [facility] [id number] [place] [address] 68550- 7823 Nov, [facility] [id number], [place] [address]- 3256 Nov, [facility] [id number] [place] [address] 43223- 8439 Nov, [facility] [place] [facility] [address] [id number] [place] [address]- 2948 Nov, [facility] [place] [facility] [address] [id number] [place] [address]- 4296 Nov, [facility] [place] [facility] [address] [facility] [id number] [place] [address]- 0176 Nov, [facility] [place] [facility] [address] [id number] [place] [address]- 8496 Nov, 2014 [facility] [place] [facility] [address] [id number] [place] [address]- 9988 Nov, [facility] [place] [facility] [address] [facility] [id number] [place] [address]- 0402 Nov, [facility] [place] [facility] [address] [id number] [address]- 4724 Oct, [facility] [place] [facility] [address] [facility] [id number] [place] [address]- 7385 Oct, [facility] [place] [facility] [address] [facility] [id number] [place] [address]- 9048 Oct, [facility] [place] [facility] [address] [facility] [id number] [place] [address]- 9425 Oct, [facility] [place] [facility] [address] [facility] [id number] [place] [address]- 7975 Oct, [facility] [place] [facility] [address] [facility] [id number] [place] [address]- 2714 Oct, [facility] [place] [facility] [address] [facility] [id number] [place] [address]- 3150 Oct, [facility] [place] [facility] [address] [facility] [id number] [place] [address]- 8145 Oct, [facility] [place] [facility] [address] [facility] [id number] [place] [address]- 8558 Oct, [facility] [place] [facility] [address] [id number] [place] [address]- 6086 Oct, [facility] [place] [facility] [address] [id number] [place] [address]- 1446 Oct, [facility] [place] [facility] [address] [id number] [place] [address]- 3816 Oct, [facility] [place] [facility] [address] [id number] [place] [address]- 1322 Oct, [facility] [place] [facility] [address] [id number] [place] [address]- 0966 Sep, [facility] [place] [facility] [address] [id number] [place] [address]- 0133 Sep, [facility] [place] [facility] [address] [id number] [place] [address]- 2000 Sep, [facility] [place] [facility] [address] [id number] [place] [address]- 0965 Sep, [facility] [place] [facility] [address] [id number] [place] [address]- 9828 Sep, [facility] [place] [facility] [address] [id number] [place] [address]- 6352 Sep, [facility] [place] [facility] [address] [id number] [place] [address]- 9095 Sep, [facility] [place] [facility] [address] [id number] [place] [address]- 7172 Sep, [facility] [place] [facility] [address] [id number] [place] [address]- 7730 Sep, [facility] [place] [facility] [address] [id number] [place] [address]- 9346 Sep, [facility] [place] [facility] [address] [id number] [place] [address]- 5376 Sep, [facility] [place] [facility] [address] [id number] [place] [address]- 2439 Sep, [facility] [place] [facility] [address] [id number] [place] 4277 Sep, [facility] [place] [facility] [address] [id number] [place] [address]- 6971 Sep, [facility] [place] [facility] [address] [id number] [place] 5927 Sep, [facility] [place] [facility] [address] [id number] [place] [address]- 5620 Sep, [facility] [place] [facility] [address] [id number] [place] [address]- 6273 Aug, [facility] [place] [facility] [address] [id number] [place] [address]- 6744 Aug, [facility] [place] [facility] [address] [id number] [place] [address]- 9425 Aug, [facility] [place] [facility] [address] [id number] [place] [address]- 9857 Aug, [facility] [place] [facility] [address] [id number] [place] [address]- 1531 Aug, [facility] [place] [facility] [address] [id number] [place] [address]- 6834 Aug, [facility] [place] [facility] [address] [id number], [place] [address]- 7762 Aug, [facility] [place] [facility] [address] [id number], [place] [address]- 6509 Aug, [facility] [place] [facility] [address] [id number] [place] [address]- 0139 Jul, [facility] [place] [facility] [address] [id number] [place] [address]- 3326 Jul, [facility] [place] [facility] [address] [id number] [place] [address]- 7685 Jul, [facility] [place] [facility] [address] [id number] [place] [address]- 7519 15 Jul, 2014 [facility] [place] [facility] [address] [id number] [place] [address]- 3739 15 Jul, 2014 [facility] [place] [facility] [address] [id number] [place] [address]- 1992 Jun, [facility] [place] [facility] [address] [id number] [place] [address]- 6890 Jun, [facility] [place] [facility] [address] [id number] [place] [address]- 3551 Jun, [facility] [place] [facility] [address] [id number] [place] [address]- 0460 Jun, [facility] [place] [facility] [address] [id number] [place] [address]- 9853 Jun, [facility] [place] [facility] [address] [id number] [place] [address]- 9688 May, [facility] [place] [facility] [address] [id number] [place] [address]- 9235 May, [facility] [place] [facility] [address] [id number] [place] [address]- 6726 Apr, [facility] [place] [facility] [address] [id number] [place] [address]- 0810 Apr, [facility] [place] [facility] [address] [id number] [place] [address]- 5142 Apr, [facility] [place] [facility] [address] [id number] [place] [address]- 2800 Apr, [facility] [place] [facility] [address] [id number] [place] [address]- 1093 Apr, [facility] [place] [facility] [address] [id number] [place] [address]- 7510 Apr, [facility] [place] [facility] [address] [id number] [place] [address]- 4985 Mar, [facility] [place] [facility] [address] [id number] [place] [address]- 0963 Mar, [facility] [place] [facility] [address] [id number] [place] [address]- 5811 Mar, [facility] [place] [facility] [address] [id number] [place] [address]- 6134 Mar, [facility] [place] [facility] [address] [id number] [place] [address]- 4979 Mar, [facility] [place] [facility] [address] [id number] [place] [address]- 3722 Mar, [facility] [place] [facility] [address] [id number] [place] [address]- 6546 Mar, [facility] [place] [facility] [address] [id number] [place] [address]- 9991 Mar, [facility] [place] [facility] [address] [id number] [place] [address]- 2350 Mar, [facility] [place] [facility] [address] [id number] [place] [address]- 0473 Mar, [facility] [place] [facility] [address] [id number] [place] [address]- 7140 Mar, [facility] [place] [facility] [address] [id number] [place] [address]- 8415 Mar, [facility] [place] [facility] [address] [id number] [place] [address]- 4139 Mar, [facility] [place] [facility] [address] [id number] [place] [address]- 0614 Mar, [facility] [place] [facility] [address] [id number] [place] [address]- 3620 Mar, [facility] [place] [facility] [address] [id number] [place] [address]- 2821 07 Mar, 2014 [facility] [place] [facility] [address] [id number] [place] [address]- 0173 February, [facility] [place] [facility] [address] [id number] [place] [address]- 0094 February, [facility] [place] [facility] [address] [id number] [place] [address]- 7641 February, [facility] [place] [facility] [address] [id number] [place] [address]- 0932 February, [facility] [place] [facility] [address] [id number] [place] [address]- 6266 February, [facility] [place] [facility] [address] [id number] [place] [address]- 8982 February, [facility] [place] [facility] [address] [id number] [place] [address]- 6753 February, [facility] [place] [facility] [address] [id number] [place] [address]- 8598 February, [facility] [place] [facility] [address] [id number] [place] [address]- 3770 Jan, [facility] [place] [facility] [address] [id number] [place] [address]- 3966 Jan, [facility] [place] [facility] [address] [id number] [place] [address]- 8461 Dec, [facility] [place] [facility] [address] [id number] [place] [address]- 5327 Dec, [facility] [place] [facility] [address] [id number] [place] [address]- 4055 Dec, [facility] [place] [facility] [address] [id number] [place] [address]- 8789 Dec, [facility] [place] [facility] [address] [id number] [place] [address]- 3896 Dec, [facility] [place] [facility] [address] [id number] [place] [address]- 7499 Dec, [facility] [place] [facility] [address] [id number] [place] [address]- 8968 19 Dec, 2013 [facility] [address] [id number] [place] [address]- 2804 19 Dec, 2013 [facility] [place] [facility] [address] [id number] [place] [address]- 4886 17 Dec, 2013 [facility] [address] [id number] [place] [address]- 2521 17 Dec, 2013 [facility] [place] [facility] [address] [id number] [place] [address]- 5525 14 Dec, 2013 [facility] [address] [id number] [place] [address]- 2983 14 Dec, 2013 [facility] [address] [id number] [place] [address]- 6690 Dec, [facility] [place] [facility] [address] [id number] [place] [address]- 5309 Dec, [facility] [address] [id number] [place] [address]- 7817 Nov, [facility] [place] [facility] [address] [id number] [place] [address]- 7143 Nov, [facility] [address] [id number] [place] [address]- 2394 Oct, [facility] [place] [facility] [address] [id number] [place] [address]- 2348 Oct, [facility] [place] [facility] [address] [id number] [place] [address]- 4282 Oct, [facility] [place] [facility] [address] [id number] [place] [address]- 3395 Oct, [facility] [place] [facility] [address] [id number] [place] [address]- 3726 Oct, [facility] [place] [facility] [address] [id number] [place] [address]- 7045 Oct, [facility] [address] [id number] [place] 7476 Oct, [facility] [place] [facility] [address] [id number] [place] [address]- 1478 Sep, [facility] [place] [facility] [address] [id number] [place] [address]- 6728 30 Sep, 2013 [facility] [place] [facility] [address] [id number] [place] [address]- 8575 30 Sep, 2013 [facility] [address] [id number] [place] [address]- 6871 29 Sep, 2013 [facility] [place] [facility] [address] [id number] [place] [address]- 6160 Sep, [facility] [place] [facility] [address] [id number] [place] [address]- 3271 Sep, [facility] [place] [facility] [address] [id number] [place] [address]- 5924 Sep, [facility] [place] [facility] [address] [id number] [place] [address]- 1205 Sep, [facility] [place] [facility] [address] [id number] [place] [address]- 0233 Sep, [facility] [place] [facility] [address] [id number] [place] [address]- 9113 Sep, [facility] [place] [facility] [address] [id number] [place] [address]- 9541 Sep, [facility] [place] [facility] [address] [id number] [place] [address]- 0305 Sep, [facility] [place] [facility] [address] [id number] [place] [address]- 9596 16 Sep, 2013 [facility] [place] [facility] [address] [id number] [place] [address]- 0747 16 Sep, 2013 [facility] [place] [facility] [address] [id number] [place] [address]- 8058 Sep, [facility] [address] [id number] [place] [address]- 1160 Sep, [facility] [place] [facility] [address] [id number] [place] [address]- 9783 Sep, [facility] [address] [id number] [place] [address]- 5494 Sep, [facility] [place] [facility] [address] [id number] [place] [address]- 0177 Sep, [facility] [address] [id number] [place] [address]- 7959 Aug, [facility] [place] [facility] [address] [id number] [place] [address]- 5122 Aug, [facility] [address] [id number] [place] [address]- 6236 Aug, [facility] [place] [facility] [address] [id number] [place] [address]- 3700 Aug, [facility] [address] [id number] [place] [address]- 6667 Aug, [facility] [place] [facility] [address] [id number] [place] [address]- 0862 Aug, [facility] [address] [id number] [place] [address]- 2415 Aug, [facility] [place] [facility] [address] [id number], [place] [address]- 0240 Aug, [facility] [place] [facility] [address] [id number], [place] [address]- 5969 Aug, [facility] [place] [facility] [address] [id number], [place] [address]- 8422 Aug, [facility] [place] [facility] [address] [id number], [place] [address]- 9821 Aug, [facility] [place] [facility] [address] [id number] [place] [address]- 4500 Aug, [facility] [place] [facility] [address] [id number] [place] [address]- 5619 Aug, [facility] [place] [facility] [address] [id number] [place] [address]- 6333 Aug, [facility] [place] [facility] [address] [id number] [place] [address]- 7444 Aug, [facility] [place] [facility] [address] [id number] [place] [address]- 8086 Aug, [facility] [place] [facility] [address] [id number] [place] [address]- 9640 Aug, [facility] [place] [facility] [address] [id number] [place] [address]- 4701 Jul, [facility] [place] [facility] [address] [id number] [place] [address]- 5318 Jul, [facility] [place] [facility] [address] [id number] [place] [address]- 8513 Jul, [facility] [place] [facility] [address] [id number] [place] [address]- 6841 Jul, [facility] [place] [facility] [address] [id number] [place] [address]- 4512 Jul, [facility] [place] [facility] [address] [id number] [place] [address]- 8616 Jul, [facility] [place] [facility] [address] [id number] [place] [address]- 5137 Jul, [facility] [place] [facility] [address] [id number] [place] [address]- 9306 27 Jun, 2013 [facility] [place] [facility] [address] [id number] [place] [address]- 2643 20 Jun, 2013 [facility] [place] [facility] [address] [id number] [place] [address]- 2742 17 Jun, 2013 [facility] [address] [id number], [place] [address]- 6402 Jun, [facility] [id number], [place] [address]- 5134 Jun, [facility] [address] [id number], [place] [address]- 6165 Jun, [facility] [id number], [place] [address]- 9519 Jun, [facility] [id number], [place] [address]- 9328 Jun, [facility] [id number], [place] [address]- 2168 May, [facility] [id number], [place] [address]- 7390 May, [facility] [id number], [place] [address]- 5965 May, [facility] [id number], [place] [address]- 7203 May, [facility] [id number], [place] [address]- 2412 May, [facility] [address] [id number], [place] [address]- 3127 May, [facility] [address] [id number], [place] [address]- 5387 May, [facility] [address] [id number], [place] [address]- 2705 May, IMMUNIZATIONS No Known Immunizations SOCIAL HISTORY Never Assessed REASON FOR VISIT FYI PLAN OF CARE VITAL SIGNS MEDICATIONS Unknown Medications RESULTS No Results PROCEDURES No Known procedures INSTRUCTIONS MEDICATIONS ADMINISTERED No Known Medications MEDICAL (GENERAL) HISTORY Type Description Date Medical History type I diabetes Medical History hypertension Medical History hyperlipidemia Medical History asthma Medical History migraine headaches Medical History allergic rhinitis Medical History neuropathy Medical History Chronic osteomyelitis, site unspecified Medical History 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 Surgical History appendectomy [facility] 1995 Surgical History salpingectomy [facility] Surgical History bladder surgery-stretch [facility] 2003 Surgical History exploratory laparoscopy [facility] 1995 Surgical History amputation, toe (R great) Surgical History amputation, (R forefoot) 2015 Surgical History amputation, toe Left second 12/2016 Surgical History amputation, 4th left toe 02/2017 Hospitalization History Left foot cellulitis, left 2nd toe amputation-[facility] [place] [facility] 12/23 Hospitalization History Surgery Hospitalizations
--- OUTSIDE RECORDS SUMMARY | 2018-08-22 08:55 | XMS REPORT ---
Author Author LUDIVINA STEPHANIE [facility] Address [address] [place] [address] Care Team Providers Care Licensed Final [employer] Agents Name Role Phone FARNAZ FLORENCEY Unavailable PROBLEMS Type Condition ICD9-CM Code IOH98-WB Code Onset Dates Condition Status SNOMED Code Problem Subclinical hypothyroidism E03.9 Active 39800492 Problem Hypertriglyceridemia E78.1 Active 912697123 Problem Type 2 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 Active 771422774 Problem Type 2 diabetes mellitus with diabetic chronic 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 Active 389487753 Problem Other chronic pain G89.29 Active 10303554 Problem Type 2 diabetes mellitus with other skin complications E11.628 Active 69927169 Problem Pain in left foot M79.672 Active 07857904 Problem Irregular menstrual cycle N92.6 Active 12729380 Problem Pain in right foot M79.671 Active 48992328 Problem Tonsillolith J35.8 Active 2000520 Problem Chronic prescription opiate use Z79.891 Active 275194948 Problem Seasonal allergic rhinitis due to pollen J30.1 Active 42510546 Problem Asthma exacerbation, mild J45.901 Active 703346652 Problem Chronic kidney disease, stage III (moderate) N18.3 Active 089816817 Problem Chronic migraine G43.709 Active 75637342 Problem Moderate persistent asthma without complication J45.40 Active 496789231 Problem Intrinsic eczema L20.84 Active 75125849 Problem Severe episode of recurrent major depressive disorder, without psychotic features F33.2 Active 65396730 Problem Non-pressure chronic ulcer of right heel and midfoot limited to breakdown of skin L97.411 Active 506925784 Problem Ulcer of right heel L97.419 Active 349308566 Problem Obesity E66.9 Active 973969472 Problem Type 2 diabetes mellitus with foot ulcer E11.621 Active 94542100 Problem Essential hypertension I10 Active 72827181 Problem Anxiety disorder, unspecified F41.9 Active 576762936 Problem Type 2 diabetes mellitus with other specified complication E11.69 Active 906430993 Problem Status post amputation of toe of left foot Z89.422 Active 692291474 Problem DM neuro manif type II E11.49 Active 10693754 Problem History of amputation of hallux Z89.419 Active 937537549 ALLERGIES No Information ENCOUNTERS Encounter Location Date Diagnosis [facility] [address] [address]- [address] 28 Jun, 2018 [facility] [address] 15874- 0381 26 Jun, 2018 [facility] [address] 86479- 2977 07 Jun, 2018 Type 2 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 [place] [address] [address]75- 8375 27 May, 2018 [place] [address] 46354- 7857 May, [facility] [address] 23663- 6724 May, Nausea R11.0 [place] [address] 40595- 5378 May, Other chronic pain G89.29 and Nausea R11.0 [facility] [address] 37730- 0148 May, Left genital labial abscess N76.4 and BMI 60.0-69.9, adult Z68.44 [place] [address] 07586- 9950 May, [place] [address] 93198- 4096 Apr, [place] [address] 09570- 9358 Apr, Chronic migraine G43.709 [place] [address] 45887- 4835 Apr, [facility] [address] [place] [id number] [place] [address] 57953- 5744 Mar, Moderate persistent asthma without complication J45.40 [facility] [address] [place] [id number] [place] [address] 92188- 6334 Mar, Moderate persistent asthma without complication J45.40 [facility] [address] [id number] [place] [address] 29629- 0614 Mar, [facility] [address] [address] [id number] [place] [address] 39167- 7340 February, Chronic migraine G43.709 [facility] [address] [place] [id number] [place] [address] 30098- 9055 February, Chronic migraine G43.709 [facility] [address] [place] [id number] [place] [address] 46314- 0225 February, [facility] [id number] [place] [address] 89363- 6124 February, [facility] [address] [place] [id number] [place] [address] 11903- 0562 February, Type 2 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 ; Moderate persistent asthma without complication J45.40 ; Type 2 diabetes mellitus with foot ulcer E11.621 ; Non-pressure chronic ulcer of right heel and midfoot limited to breakdown of skin L97.411 ; Chronic migraine G43.709 and BMI 60.0-69.9, adult Z68.44 [facility] [address] [place] [address] 74802 -7521 Jan, Asthma exacerbation, mild J45.901 ; Seasonal allergic rhinitis due to pollen J30.1 and BMI 60.0-69.9, adult Z68.44 [facility] [address] [address] 39[address] Jan, [facility] [address] [place] [id number] [place] [address] 19003- 3171 Jan, Other chronic pain G89.29 [place] [address] [place] [id number] [place] [address] 67451- 9179 30 Dec, 2017 Type 2 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 [place] [address] [place] [id number] [place] [address] 99194- 4465 19 Dec, 2017 Type 2 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 [place] [address] 73582- 9561 15 Dec, 2017 [place] [address] [place] [id number] [place] [address] 94108- 1149 14 Dec, 2017 [place] [address] 44909- 9552 13 Dec, 2017 Chronic kidney disease, stage III (moderate) N18.3 [facility] [address] 60634 -6915 09 Dec, 2017 Nausea R11.0 and Diarrhea, unspecified type R19.7 [place] [address] [place] [id number] [place] [address] 85678- 9020 07 Dec, 2017 Chronic kidney disease, stage III (moderate) N18.3 and Type 2 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 [place] [address] [place] [id number] [place] [address] 05691- 5890 Dec, [place] [address] 01082- 8856 Nov, Ulcer of right heel L97.419 and Type 2 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 [facility] [address] [id number] Nov, Dental examination Z01.20 [place] [address] [place] [id number] [place] [address] 53584- 9235 Nov, Open wound of right foot, initial encounter S91.301A [facility] [address] [id number] [place] [address] 73019 -9360 Nov, Open wound of right foot, initial encounter S91.301A ; Non- intractable vomiting with nausea, unspecified vomiting type R11.2 and BMI 60.0- 69.9, adult Z68.44 [place] [address] [place] [id number] [place] [address] 72995- 3748 Nov, [place] [address] 09942- 6848 Nov, Other chronic pain G89.29 [place] [address] 44268- 7810 Oct, Cellulitis of right lower limb L03.115 [place] [address] 86506- 7006 Oct, [place] [address] 97200- 6165 Oct, [place] [address] [place] [id number] [place] [address] 03168- 0929 Oct, Cat scratch W55.03XA ; Cellulitis of right lower limb L03.115 ; Acute nasopharyngitis J00 ; BMI 60.0-69.9, adult Z68.44 and Cough R05 [place] [address] [place] [id number] [place] [address] 54616- 0608 Oct, Cat scratch W55.03XA ; Cutaneous abscess of right lower extremity L02.415 and Cellulitis of right lower limb L03.115 [place] [address] [place] [id number] [place] [address] 73857- 9207 Oct, Type 2 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 [place] [address] 78283- 6745 Oct, Other chronic pain G89.29 [place] [address] 87219- 7101 Aug, [place] [address] [place] [id number] [place] [address] 27455- 1207 Jul, Other chronic pain G89.29 [place] [address] 57939- 1292 Jul, [place] [address] 32303- 5422 Jul, Chronic kidney disease, stage III (moderate) N18.3 [place] [address] 14795- 8135 04 Jul, 2017 Type 2 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 ; Essential hypertension I10 ; Irregular menstrual cycle N92.6 ; Hypertriglyceridemia E78.1 ; Anxiety disorder, unspecified F41.9 ; Severe episode of recurrent major depressive disorder, without psychotic features F33.2 ; Tonsillolith J35.8 ; Intrinsic eczema L20.84 ; Subclinical hypothyroidism E03.9 ; Viral pharyngitis J02.9 and Encounter for immunization Z23 [place] [address] [place] [id number] [place] [address] 09101- 9855 13 Jun, 2017 Essential hypertension I10 [place] [id number] [place] [address] 55416- 4054 08 Jun, 2017 [place] [address] [place] [id number] [place] [address] 57609- 2509 Jun, [place] [address] [place] [id number] [place] [address] 71765- 3673 May, Moderate persistent asthma without complication J45.40 [place] [address] 07413- 5821 May, Pain in right foot M79.671 ; Pain in left foot M79.672 ; Other chronic pain G89.29 and Chronic prescription opiate use Z79.891 [place] [address] [place] [id number] [place] [address] 15170- 3905 May, [place] [address] [place] [address] [place] [address] 11648- 4941 May, [place] [address] [place] [id number] [place] [address] 43314- 6430 Apr, [place] [address] [place] [id number] [place] [address] 20445- 8591 Apr, Chronic migraine G43.709 [place] [address] 77001- 4576 Apr, Essential hypertension I10 ; Hypertriglyceridemia E78.1 and Chronic migraine G43.709 [place] [address] [place] [id number] [place] [address] 56879- 1560 Apr, [place] [address] [place] [id number] [place] [address] 10466- 5600 Apr, Sore throat J02.9 [place] [id number] [place] [address] 07936- 4679 Apr, [place] [address] [place] [id number] [place] [address] 64531- 2204 Mar, Strep pharyngitis J02.0 and Non-intractable vomiting with nausea, unspecified vomiting type R11.2 [place] [id number] [place] [address] 92668- 0349 Mar, [place] [address] [place] [id number] [place] [address] 72510- 4954 Mar, [place] [address] [place] [id number] [place] [address] 64955- 0662 Mar, [place] [address] [place] [id number] [place] [address] 60389- 3011 Mar, Type 2 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 ; Moderate persistent asthma without complication J45.40 ; Status post amputation of toe of left foot Z89.422 ; Acute seasonal allergic rhinitis, unspecified trigger J30.2 and Left shoulder pain, unspecified chronicity M25.512 [place] [id number] [address]- 7602 Mar, [place] [address] [place] [id number] [place] [address] 81505- 8986 February, Pre-op evaluation Z01.818 ; Type 2 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 and Type 2 diabetes mellitus with foot ulcer E11.621 [place] [address] [place] [id number] [place] [address] 15943- 1117 February, [place] [address] [place] [id number] [place] [address] 93530- 6240 February, [place] [address] [place] [id number] [place] [address] 18589- 8770 February, Toe infection L08.9 and Type 2 diabetes mellitus with other specified complication E11.69 [place] [address] [place] [id number] [place] [address] 58090- 8727 February, [place] [address] [place] [id number] [place] [address] 98038- 7542 Jan, Type 2 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 [place] [address] [place] [id number] [place] [address] 60376- 3811 Jan, [place] [address] [place] [id number] [place] [address] 93459- 8379 Jan, Right upper quadrant pain R10.11 and Intractable vomiting with nausea, unspecified vomiting type R11.2 [place] [address] [place] [address] 18350- 1715 Jan, Hypertriglyceridemia E78.1 and Essential hypertension I10 [place] [address] [place] [id number] [place] [address] 39033- 2615 07 Jan, 2017 Essential hypertension I10 ; Type 2 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 and Hypertriglyceridemia E78.1 [place] [address] [place] [id number] [place] [address] 41371- 4731 Dec, Type 2 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 [facility] [address], [place] [address]- 3366 Dec, Hypertriglyceridemia E78.1 ; Essential hypertension I10 ; Type 2 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 ; Anxiety disorder , unspecified F41.9 and Moderate persistent asthma without complication J45.40 [facility] [address] [place] [id number] [place] [address] 81813- 4624 Dec, Type 2 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 [facility] [place] [address] [place] [id number] [place] [address] [id number] Dec, [facility] [address] [place] [id number] [place] [address] 73984- 2357 Nov, [facility] [address] [place] [id number] [place] [address] 48874- 8056 Nov, [facility] [address] [place] [id number] [place] [address] 51158- 6337 Nov, [facility] [address] [place] [id number] [place] [address] 21565- 3449 Nov, Toe infection L08.9 [facility] [address] [place] [id number] [place] [address] 33232- 3628 Nov, [facility] [address] [place] [address] 82873- 1185 Oct, History of amputation of hallux Z89.419 [facility] [address] [place] [address] 30534- 1507 Oct, Type 2 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 [facility] [address] [place] [id number] [place] [address] 62734- 6762 Oct, Type 2 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 [facility] [address], [place] [address]- 0148 Oct, Acute osteomyelitis of left foot M86.172 ; Pre-op exam Z01.818 and Type 2 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 [facility] [address] [place] [id number] [place] [address] 36995- 7095 Oct, Foot ulcer, left, with unspecified severity L97.529 ; Acute osteomyelitis of left foot M86.172 and Type 2 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 [facility] [address] [place] [id number] [place] [address] 65644- 9223 Sep, [facility] [address] [place] [id number] [place] [address] 63519- 1308 Sep, Intractable vomiting with nausea, unspecified vomiting type R11.2 and Right upper quadrant pain R10.11 [facility] [address] [place] [id number] [place] [address] 50532- 8905 Aug, [place] [address] [place] [id number] [place] [address] 68557- 0988 Jul, [facility] [address] [place] [id number] [place] [address] 78298- 2966 Jul, Preop examination Z01.818 [facility] [address] [place] [id number] [place] [address] 26316- 0887 Jul, [facility] [address] [place] [id number] [place] [address] 78870- 3437 Jul, [facility] [address] [place] [id number] [place] [address] 92888- 5929 Jul, Chronic osteomyelitis of left foot M86.672 and Ulcer of left foot, with unspecified severity L97.529 [place] [address] [place] [id number] [place] [address] 06021- 7670 Jul, Non-pressure chronic ulcer of other part of left foot with unspecified severity L97.529 [facility] [address] [place] [id number] [place] [address] 32501- 9054 Jul, [facility] [address] [place] [address]- 2573 Jul, [facility] [address] [place] [id number] [place] [address] 83891- 7677 28 Jun, 2016 [facility] [address] [place] [id number] [place] [address] 26917- 2294 Jun, [facility] [address] [place] [id number] [place] [address] 75414- 2904 Jun, [facility] [address] [place] [id number] [place] [address] 31122- 7141 Jun, Right upper quadrant pain R10.11 [facility] [address] [place] [id number] [place] [address] 98818- 5014 Jun, [facility] [address] [place] [id number] [place] [address] 08148- 0606 Jun, Intractable vomiting with nausea, unspecified vomiting type R11.2 [facility] [address] [place] [id number] [place] [address] 30126- 5434 13 Jun, 2016 Right upper quadrant pain R10.11 ; Migraine with aura and with status migrainosus, not intractable G43.101 and Intractable vomiting with nausea, unspecified vomiting type R11.2 [facility] [address] [place] [address] 76048- 0263 12 Jun, 2016 [facility] [address] [place] [id number] [place] [address] 20659- 9822 Jun, Gastroenteritis K52.9 [facility] [address] [place] [address] 03618- 6041 May, [facility] [address] [place] [id number] [place] [address] 06378- 5536 May, Hypertriglyceridemia E78.1 ; Essential hypertension I10 ; Type 2 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 ; Moderate persistent asthma without complication J45.40 ; Type 2 diabetes mellitus with foot ulcer E11.621 ; Other chronic pain G89.29 ; Pain in right leg M79.604 ; Pain of left leg M79.605 ; Rash and nonspecific skin eruption R21 and Anxiety disorder, unspecified F41.9 [place] [address] [place] [address] [id number] [place] [address] 54231- 9000 May, Essential hypertension I10 ; Hypertriglyceridemia E78.1 ; Upper respiratory infection J06.9 ; Subclinical hypothyroidism E03.9 and Type 2 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 [place] [address] 02256- 6165 Apr, Hypertriglyceridemia E78.1 ; Subclinical hypothyroidism E03.9 ; Essential hypertension I10 and Type 2 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 [place] [address] 35494- 4374 Mar, [place] [address] 28378- 4611 Mar, Ulcer of right heel L97.419 [place] [address] [place] [id number] [place] [address] 64423- 1203 Mar, [place] [address] 33120- 4087 Mar, [place] [address] [place] [id number] [place] [address] 75179- 2696 February, [place] [address] [place] [id number] [place] [address] 67048- 5649 February, Ulcer of right heel L97.419 and DM neuro manif type II E11.49 [facility] [address] [place] [id number] [place] [address] 83307- 8552 Jan, [facility] [address] 32451- 1812 Jan, Ulcer of right heel L97.419 ; Type 2 diabetes mellitus with foot ulcer E11.621 and Non-pressure chronic ulcer of other part of left foot with unspecified severity L97.529 [place] [address] [place] [address]- 2471 Jan, [facility] [address] [place] [id number] [place] [address] 65951- 7931 Jan, [facility] [address] [place] [address] [id number] [place] [address] 98317- 3128 Jan, Infection of toenail L03.039 [facility] [address] [place] [id number] [place] [address] 12509- 8170 14 Jan, 2016 Blister of toe of left foot, initial encounter S90.425A and Type 2 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 [facility] [address] [place] [id number] [place] [address] 44438- 0063 Jan, [facility] [address] [place] [address] 91270 -1568 Jan, Sore throat J02.9 and Strep pharyngitis J02.0 [facility] [address] [place] [id number] [place] [address] 99825- 9803 Dec, Type 2 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 ; Upper respiratory infection J06.9 ; Cough R05 and Asthma exacerbation J45.901 [facility] [address] [place] [address] 16123- 8921 Oct, [facility] [address] [place] [address] 34022- 8914 Oct, [facility] [id number] [place] [address] 71025- 4101 Oct, [facility] [address] [place] [address] 35543- 6067 Oct, [facility] [address] [id number] [place] [address] 41758- 3822 Sep, [facility] [address] [place] [address] 63876- 3032 Aug, Anxiety disorder, unspecified F41.9 and Obesity E66.9 [facility] [address] [id number] [place] [address] 66460- 6061 Aug, Moderate persistent asthma without complication J45.40 [facility] [address] [id number] [place] [address] 60968- 1993 Aug, Anxiety disorder, unspecified F41.9 [place] [address] 21213- 4042 Aug, Chronic migraine G43.709 ; Encounter for immunization Z23 ; Hypertriglyceridemia E78.1 ; Type 2 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 ; Moderate persistent asthma without complication J45.40 and Morbid obesity E66.01 [place] [address] [place] [id number] [place] [address] 26371- 6134 Jul, [facility] [address] [id number] [place] [address] 69400- 6676 Jul, [facility] [address] [id number] [place] [address] 64468- 0363 Jul, [facility] [address] [id number] [place] [address] 05442- 8776 Jul, Subclinical hypothyroidism E03.9 [facility] [address] [id number] [place] [address] 08936- 4937 Jun, Essential hypertension, benign 401.1 ; Diabetic ulcer of lower extremity 250.80 ; Asthma 493.90 ; Diabetes mellitus type II, uncontrolled 250.02 and Hyperlipidemia associated with type 2 diabetes mellitus 250.80 [facility] [id number] [place] [address] 58946- 8890 18 Jun, 2015 [place] [address] 41270- 1339 Jun, [facility] [address] [place] [address] [id number] [place] [phone]- [address]67 May, [facility] [address] [address] Apr, [facility] [id number] [place] [address] Apr, Viral upper respiratory infection 465.9 and Asthma 493.90 [facility] [id number], [place] [address] Mar, Abnormal ankle brachial index 796.4 [facility] [id number] [place] [address] [id number]- [id number] February, [facility] [id number] [place] [address] [id number]- 1534 February, Essential hypertension, benign 401.1 [facility] [id number] [place] [address] [id number]- [address] February, Diabetic peripheral neuropathy 250.60 ; Ulcer of heel and midfoot 707.14 and Decreased pedal pulses 785.9 [facility] [id number] [place] [address] 58[address]- [address] February, [facility] [id number] [place] [address] 371315- 8064 February, [facility] [id number] [place] [address]257- 3574 Jan, [facility] [id number], [place] [address] Jan, [facility] [id number] [place] [address] 18832- 4576 Dec, [facility] [id number] [place] [address] 29697- 0750 Dec, [facility] [id number] [place] [address] 73333- 3933 Nov, [facility] [address], [place] [address] 1476 Nov, [facility] [id number] [place] [address] 89015- 7549 Nov, [facility] [place] [facility] [address] [id number] [place] [address] 8008 Nov, [facility] [place] [facility] [address] [id number] [place] [address]- 9346 Nov, [facility] [place] [facility] [address] [facility] [id number] [place] [address]- 6426 Nov, [facility] [place] [facility] [address] [id number] [place] [address]- 2226 Nov, 2014 [facility] [place] [facility] [address] [id number] [place] [address]- 2470 Nov, [facility] [place] [facility] [address] [facility] [id number] [place] [address]- 7392 Nov, [facility] [place] [facility] [address] [id number] [place] [address]- 7829 Oct, [facility] [place] [facility] [address] [facility] [id number] [place] [address]- 6738 Oct, [facility] [place] [facility] [address] [facility] [id number] [place] [address]- 0830 Oct, [facility] [place] [facility] [address] [facility] [id number] [place] [address]- 0418 Oct, [facility] [place] [facility] [address] [facility] [id number] [place] [address]- 5825 Oct, [facility] [place] [facility] [address] [facility] [id number] [place] [address]- 2880 Oct, [facility] [place] [facility] [address] [facility] [id number] [place] [address]- 3109 Oct, [facility] [place] [facility] [address] [facility] [id number] [place] [address]- 7809 Oct, [facility] [place] [facility] [address] [facility] [id number] [place] [address]- 4007 Oct, [facility] [place] [facility] [address] [id number] [place] [address]- 5256 Oct, [facility] [place] [facility] [address] [id number] [place] [address]- 6726 Oct, [facility] [place] [facility] [address] [id number] [place] [address]- 2906 Oct, [facility] [place] [facility] [address] [id number] [place] [address]- 3959 Oct, [facility] [place] [facility] [address] [id number] [place] [address]- 8723 Sep, [facility] [place] [facility] [address] [id number] [place] [address]- 3988 Sep, [facility] [place] [facility] [address] [id number] [place] [address]- [address] Sep[facility] [place] [facility] [address] [id number] [place] [address]- [address] Sep, [facility] [place] [facility] [address] [id number] [place] [address]- [address] Sep, [facility] [place] [facility] [address] [id number] [place] [address]- 5158 Sep, [facility] [place] [facility] [address] [id number] [place] [address]- 9875 Sep, [facility] [place] [facility] [address] [id number] [place] [address]- 7148 Sep, [facility] [place] [facility] [address] [id number] [place] [address]- 0669 Sep, [facility] [place] [facility] [address] [id number] [place] [address]- 2306 Sep, [facility] [place] [facility] [address] [id number] [place] [address]- 8966 Sep, [facility] [place] [facility] [address] [id number] [place] [address]- 4079 Sep, [facility] [place] [facility] [address] [id number] [place] [address]58 Sep, [facility] [place] [facility] [address] [id number] [place] [address]- 4520 Sep, [facility] [place] [facility] [address] [id number] [place] [address]288 Sep, [facility] [place] [facility] [address] [id number] [place] [address]- 4090 Sep, [facility] [place] [facility] [address] [id number] [place] [address]- 4146 Aug, [facility] [place] [facility] [address] [id number] [place] [address]- 0827 Aug, [facility] [place] [facility] [address] [id number] [place] [address]- 5790 Aug, [facility] [place] [facility] [address] [id number] [place] [address]- 8894 Aug, [facility] [place] [facility] [address] [id number] [place] [address]- 9138 Aug, [facility] [place] [facility] [address] [id number] [place] [address]- 9562 Aug, [facility] [place] [facility] [address] [id number] [address]- 0620 Aug, [facility] [place] [facility] [address] [id number], [place] [address]- 8377 Aug, [facility] [place] [facility] [address] [id number] [place] [address]- 7782 Jul, [facility] [place] [facility] [address] [id number] [place] [address]- 8406 Jul, [facility] [place] [facility] [address] [id number] [place] [address]- 2571 Jul, [facility] [place] [facility] [address] [id number] [place] [address]- 7920 15 Jul, 2014 [facility] [place] [facility] [address] [id number] [place] [address]- 0552 15 Jul, 2014 [facility] [place] [facility] [address] [id number] [place] [address]- 7543 Jun, [facility] [place] [facility] [address] [id number] [place] [address]- 4336 Jun, [facility] [place] [facility] [address] [id number] [place] [address]- 1380 Jun, [facility] [place] [facility] [address] [id number] [place] [address]- 7597 Jun, [facility] [place] [facility] [address] [id number] [place] [address]- 0107 Jun, [facility] [place] [facility] [address] [id number] [place] [address]- 9075 May, [facility] [place] [facility] [address] [id number] [place] [address]- 8631 May, [facility] [place] [facility] [address] [id number] [place] [address]- 9762 Apr, [facility] [place] [facility] [address] [id number] [place] [address]- 2479 Apr, [facility] [place] [facility] [address] [id number] [place] [address]- 5036 Apr, [facility] [place] [facility] [address] [id number] [place] [address]- 2857 Apr, [facility] [place] [facility] [address] [id number] [place] [address]- 7656 Apr, [facility] [place] [facility] [address] [id number] [place] [address]- 3415 Apr, [facility] [place] [facility] [address] [id number] [place] [address]- 8293 Mar, [facility] [place] [facility] [address] [id number] [place] [address]- 3844 Mar, [facility] [place] [facility] [address] [id number] [place] [address]- 2905 Mar, [facility] [place] [facility] [address] [id number] [place] [address]- 7545 Mar, [facility] [place] [facility] [address] [id number] [place] [address]- 8276 Mar, [facility] [place] [facility] [address] [id number] [place] [address]- 6137 Mar, [facility] [place] [facility] [address] [id number] [place] [address]- 8098 Mar, [facility] [place] [facility] [address] [id number] [place] [address]- 5095 Mar, [facility] [place] [facility] [address] [id number] [place] [address]- 3300 Mar, [facility] [place] [facility] [address] [id number] [place] [address]- 3689 Mar, [facility] [place] [facility] [address] [id number] [place] [address]- 0800 Mar, [facility] [place] [facility] [address] [id number] [place] [address]- 1041 Mar, [facility] [place] [facility] [address] [id number] [place] [address]- 5290 Mar, [facility] [place] [facility] [address] [id number] [place] [address]- 1020 Mar, [facility] [place] [facility] [address] [id number] [place] [address]- 7045 Mar, [facility] [place] [facility] [address] [id number] [place] [address]- 6075 07 Mar, 2014 [facility] [place] [facility] [address] [id number] [place] [address]- 3751 February, [facility] [place] [facility] [address] [id number] [place] [address]- 6290 February, [facility] [place] [facility] [address] [id number] [place] [address]- 3484 February, [facility] [place] [facility] [address] [id number] [place] [address]- 0900 February, [facility] [place] [facility] [address] [id number] [place] [address]- 4617 February, [facility] [place] [facility] [address] [id number] [place] [address]- 1858 February, [facility] [place] [facility] [address] [id number] [place] [address]- 9515 February, [facility] [place] [facility] [address] [id number] [place] [address]- 2378 February, [facility] [place] [facility] [address] [id number] [place] [address]- 9409 Jan, [facility] [place] [facility] [address] [id number] [place] [address]- 1226 Jan, [facility] [place] [facility] [address] [id number] [place] [address]- 4769 Dec, [facility] [place] [facility] [address] [id number] [place] [address]- 5871 Dec, [facility] [place] [facility] [address] [id number] [place] [address]- 0816 Dec, [facility] [place] [facility] [address] [id number] [place] [address]- 7299 Dec, [facility] [place] [facility] [address] [id number] [place] [address]- 6054 Dec, [facility] [place] [facility] [address] [id number] [place] [address]- 8038 Dec, [facility] [place] [facility] [address] [id number] [place] [address]- 0531 19 Dec, 2013 [facility] [address] [id number] [place] [address]- 7689 19 Dec, 2013 [facility] [place] [facility] [address] [id number] [place] [address]- 5346 17 Dec, 2013 [facility] [address] [id number] [place] [address]- 7797 17 Dec, 2013 [facility] [place] [facility] [address] [id number] [place] [address]- 9588 14 Dec, 2013 [facility] [address] [id number] [place] [address]- 9338 14 Dec, 2013 [facility] [address] [id number] [place] [address]- 1700 Dec, [facility] [place] [facility] [address] [id number] [place] [address]- 0158 Dec, [facility] [address] [id number] [place] [address]- 9526 Nov, [facility] [place] [facility] [address] [id number] [place] [address]- 0877 Nov, [facility] [address] [id number] [place] [address]- 1613 Oct, [facility] [place] [facility] [address] [id number] [place] [address]- 7168 Oct, [facility] [place] [facility] [address] [id number] [place] [address]- 0709 Oct, [facility] [place] [facility] [address] [id number] [place] [address]- 0809 Oct, [facility] [place] [facility] [address] [id number] [place] [address]- 8596 Oct, [facility] [place] [facility] [address] [id number] [place] [address]- 8576 Oct, [facility] [address] [id number] [place] 7378 Oct, [facility] [place] [facility] [address] [id number] [place] [address]- 0100 Sep, [facility] [place] [facility] [address] [id number] [place] [address]- 7177 30 Sep, 2013 [facility] [place] [facility] [address] [id number] [place] [address]- 2014 30 Sep, 2013 [facility] [address] [id number] [place] [address]- 3047 29 Sep, 2013 [facility] [place] [facility] [address] [id number] [place] [address]- 6438 Sep, [facility] [place] [facility] [address] [id number] [place] [address]- 3026 Sep, [facility] [place] [facility] [address] [id number] [place] [address]- 4854 Sep, [facility] [place] [facility] [address] [id number] [place] [address]- 9684 Sep, [facility] [place] [facility] [address] [id number] [place] [address]- 4285 Sep, [facility] [place] [facility] [address] [id number] [place] [address]- 8317 Sep, [facility] [place] [facility] [address] [id number] [place] [address]- 2998 Sep, [facility] [place] [facility] [address] [id number] [place] [address]- 5540 Sep, [facility] [place] [facility] [address] [id number] [place] [address]- 9556 16 Sep, 2013 [facility] [place] [facility] [address] [id number] [place] [address]- 8395 16 Sep, 2013 [facility] [place] [facility] [address] [id number] [place] [address]- 1600 Sep, [facility] [address] [id number] [place] [address]- 4148 Sep, [facility] [place] [facility] [address] [id number] [place] [address]- 0418 Sep, [facility] [address] [id number] [place] [address]- 4913 Sep, [facility] [place] [facility] [address] [id number] [place] [address]- 6335 Sep, [facility] [address] [id number] [place] [address]- 2611 Aug, [facility] [place] [facility] [address] [id number] [place] [address]- 3871 Aug, [facility] [address] [id number] [place] [address]- 5180 Aug, [facility] [place] [facility] [address] [id number] [place] [address]- 9608 Aug, [facility] [address] [id number] [place] [address]- 7911 Aug, [facility] [place] [facility] [address] [id number] [place] [address]- 4506 Aug, [facility] [address] [id number] [place] [address]- 0424 Aug, [facility] [place] [facility] [address] [id number], [place] [address]- 6798 Aug, [facility] [place] [facility] [address] [id number], [place] [address]- 3007 Aug, [facility] [place] [facility] [address] [id number], [place] [address]- 0759 Aug, [facility] [place] [facility] [address] [id number], [place] [address]- 8702 Aug, [facility] [place] [facility] [address] [id number] [place] [address]- 2929 Aug, [facility] [place] [facility] [address] [id number] [place] [address]- 4379 Aug, [facility] [place] [facility] [address] [id number] [place] [address]- 9744 Aug, [facility] [place] [facility] [address] [id number] [place] [address]- 8847 Aug, [facility] [place] [facility] [address] [id number] [place] [address]- 4272 Aug, [facility] [place] [facility] [address] [id number] [place] [address]- 7503 Aug, [facility] [place] [facility] [address] [id number] [place] [address]- 5810 Jul, [facility] [place] [facility] [address] [id number] [place] [address]- 1766 Jul, [facility] [place] [facility] [address] [id number] [place] [address]- 2542 Jul, [facility] [place] [facility] [address] [id number] [place] [address]- 3695 Jul, [facility] [place] [facility] [address] [id number] [place] [address]- 9273 Jul, [facility] [place] [facility] [address] [id number] [place] [address]- 6889 Jul, [facility] [place] [facility] [address] [id number] [place] [address]- 3045 Jul, [facility] [place] [facility] [address] [id number] [place] [address]- 6636 27 Jun, 2013 [facility] [place] [facility] [address] [id number] [place] [address]- 9488 20 Jun, 2013 [facility] [place] [facility] [address] [id number] [place] [address]- 9295 17 Jun, 2013 [facility] [address] [facility] [id number], [place] [address]- 4804 10 Jun, 2013 [facility] [address] [facility] [id number], [place] [address]- 5449 06 Jun, 2013 [facility] [address], [place] [address]- 3247 06 Jun, 2012 [facility] [address] [facility] [id number], [place] [address]- 7081 05 Jun, 2012 [facility] [address] [facility] [id number], [place] [address]- 4484 Jun, [facility] [address] [id number], [place] [address]- 2084 May, [facility] [address], [place] [address]- 3136 May, [facility] [address], [place] [address]- 9175 May, [facility] [address], [place] [address]- 2519 May, [facility] [address], [place] [address]- 8138 May, [facility] [address], [place] [address]- 6127 May, [facility] [address], [place] [address]- 9035 May, [facility] [address] [id number], [place] [address]- 8701 May, IMMUNIZATIONS No Known Immunizations SOCIAL HISTORY Never Assessed REASON FOR VISIT Controlled Medication Refill PLAN OF CARE VITAL SIGNS MEDICATIONS Medication Instructions Dosage Frequency Start Date End Date Duration Status Hydrocodone-Acetaminophen 5-325 MG Orally every 4- 6 hrs as needed 1 tablet May, Active Zofran 8 MG Orally every 8 hours, PRN as directed Dec, Active RESULTS No Results PROCEDURES No Known procedures INSTRUCTIONS MEDICATIONS ADMINISTERED No Known Medications MEDICAL (GENERAL) HISTORY Type Description Date Medical History type I diabetes Medical History hypertension Medical History hyperlipidemia Medical History asthma Medical History migraine headaches Medical History allergic rhinitis Medical History neuropathy Medical History Chronic osteomyelitis, site unspecified Medical History 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 Surgical History appendectomy [facility] 1995 Surgical History salpingectomy [facility] Surgical History bladder surgery-stretch [facility] 2003 Surgical History exploratory laparoscopy [facility] 1995 Surgical History amputation, toe (R great) Surgical History amputation, (R forefoot) 2014 Surgical History amputation, toe Left second 12/2016 Surgical History amputation, 4th left toe 02/2017 Hospitalization History Left foot cellulitis, left 2nd toe amputation-[facility] 12/23 Hospitalization History Surgery Hospitalizations
--- OUTSIDE RECORDS SUMMARY | 2018-08-22 08:55 | XMS REPORT ---
Author Author LUDIVINA STEPHANIE [facility] [address] Address [address] [place] [address] Care Team Providers Care Paleontological Helper Name Role Phone FARNAZ FLORENCEY Unavailable PROBLEMS Type Condition ICD9-CM Code [id number] Code Onset Dates Condition Status SNOMED Code Problem Subclinical hypothyroidism E03.9 Active 82827727 Problem Hypertriglyceridemia E78.1 Active 394293072 Problem Type 2 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 Active 690001938 Problem Type 2 diabetes mellitus with diabetic chronic 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 Active 542347092 Problem Other chronic pain G89.29 Active 17582563 Problem Type 2 diabetes mellitus with other skin complications E11.628 Active 64073805 Problem Pain in left foot M79.672 Active 93537996 Problem Irregular menstrual cycle N92.6 Active 76523384 Problem Pain in right foot M79.671 Active 18908741 Problem Tonsillolith J35.8 Active 7371774 Problem Chronic prescription opiate use Z79.891 Active 961967621 Problem Seasonal allergic rhinitis due to pollen J30.1 Active 87739887 Problem Asthma exacerbation, mild J45.901 Active 268998271 Problem Chronic kidney disease, stage III (moderate) N18.3 Active 543468746 Problem Chronic migraine G43.709 Active 79657435 Problem Moderate persistent asthma without complication J45.40 Active 745262707 Problem Intrinsic eczema L20.84 Active 89969694 Problem Severe episode of recurrent major depressive disorder, without psychotic features F33.2 Active 39145063 Problem Non-pressure chronic ulcer of right heel and midfoot limited to breakdown of skin L97.411 Active 994213899 Problem Ulcer of right heel L97.419 Active 433362126 Problem Obesity E66.9 Active 228883871 Problem Type 2 diabetes mellitus with foot ulcer E11.621 Active 14484214 Problem Essential hypertension I10 Active 16242420 Problem Anxiety disorder, unspecified F41.9 Active 525636064 Problem Type 2 diabetes mellitus with other specified complication E11.69 Active 286987486 Problem Status post amputation of toe of left foot Z89.422 Active 551775499 Problem DM neuro manif type II E11.49 Active 84735813 Problem History of amputation of hallux Z89.419 Active 375417967 ALLERGIES No Information ENCOUNTERS Encounter Location Date Diagnosis [facility] [address] [address]- [address] 28 Jun, 2018 [facility] [address] 55563- 1900 26 Jun, 2018 [facility] [address] 98137- 8890 07 Jun, 2018 Type 2 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 [place] [id number] [address]- 2103 27 May, 2018 [place] [address] 26950- 8086 May, [facility] [address] 5[address]- 4211 May, Nausea R11.0 [place] [address] 62595- 0715 May, Other chronic pain G89.29 and Nausea R11.0 [facility] [address] 71714- 6500 May, Left genital labial abscess N76.4 and BMI 60.0-69.9, adult Z68.44 [place] [address] 04554- 7921 May, [place] [address] 24939- 5021 Apr, [place] [address] 16852- 2844 Apr, Chronic migraine G43.709 [place] [address] 47367- 4971 Apr, [facility] [address] [place] [id number] [place] [address] 91398- 1902 Mar, Moderate persistent asthma without complication J45.40 [facility] [address] [place] [id number] [place] [address] 24575- 8418 Mar, Moderate persistent asthma without complication J45.40 [facility] [address] [place] [id number] [place] [address] 91106- 8868 Mar, [facility] [address] [place] [id number] [place] [address] 79014- 9538 February, Chronic migraine G43.709 [facility] [address] [place] [id number] [place] [address] 83874- 4164 February, Chronic migraine G43.709 [facility] [address] [place] [id number] [place] [address] 09900- 2609 February, [facility] [address] [place] [id number] [place] [address] 80187- 0695 February, [facility] [address] [place] [id number] [place] [address] 85008- 4869 February, Type 2 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 ; Moderate persistent asthma without complication J45.40 ; Type 2 diabetes mellitus with foot ulcer E11.621 ; Non-pressure chronic ulcer of right heel and midfoot limited to breakdown of skin L97.411 ; Chronic migraine G43.709 and BMI 60.0-69.9, adult Z68.44 [facility] [id number] [place] [address] 97385 -3873 Jan, Asthma exacerbation, mild J45.901 ; Seasonal allergic rhinitis due to pollen J30.1 and BMI 60.0-69.9, adult Z68.44 [facility] [address], [place] [address] 4[address] Jan, [facility] [address] [place] [id number] [place] [address] 11334- 6122 Jan, Other chronic pain G89.29 [place] [address] [place] [id number] [place] [address] 46774- 0280 30 Dec, 2017 Type 2 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 [place] [address] [place] [id number] [place] [address] 41941- 4419 19 Dec, 2017 Type 2 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 [place] [address] 50539- 0820 15 Dec, 2017 [place] [address] [place] [id number] [place] [address] 02849- 9702 14 Dec, 2017 [place] [address] 71619- 2332 13 Dec, 2017 Chronic kidney disease, stage III (moderate) N18.3 [facility] [address] 20724 -8616 09 Dec, 2017 Nausea R11.0 and Diarrhea, unspecified type R19.7 [place] [address] [place] [id number] [place] [address] 17743- 0526 07 Dec, 2017 Chronic kidney disease, stage III (moderate) N18.3 and Type 2 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 [place] [address] [place] [id number] [place] [address] 20899- 4967 Dec, [place] [address] 65521- 8860 Nov, Ulcer of right heel L97.419 and Type 2 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 [facility] [address] [id number] Nov, Dental examination Z01.20 [place] [address] [place] [id number] [place] [address] 84933- 9123 Nov, Open wound of right foot, initial encounter S91.301A [facility] [address] [place] [id number] [place] [address] 82384 -6411 Nov, Open wound of right foot, initial encounter S91.301A ; Non- intractable vomiting with nausea, unspecified vomiting type R11.2 and BMI 60.0- 69.9, adult Z68.44 [place] [address] [place] [id number] [place] [address] 10794- 3420 Nov, [place] [address] 75048- 3067 Nov, Other chronic pain G89.29 [place] [address] 54195- 0582 Oct, Cellulitis of right lower limb L03.115 [place] [address] 19750- 3772 Oct, [place] [address] 30481- 1951 Oct, [place] [address] [place] [id number] [place] [address] 42511- 2836 Oct, Cat scratch W55.03XA ; Cellulitis of right lower limb L03.115 ; Acute nasopharyngitis J00 ; BMI 60.0-69.9, adult Z68.44 and Cough R05 [place] [address] [place] [id number] [place] [address] 59876- 0782 Oct, Cat scratch W55.03XA ; Cutaneous abscess of right lower extremity L02.415 and Cellulitis of right lower limb L03.115 [place] [address] [place] [id number] [place] [address] 84089- 8237 Oct, Type 2 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 [place] [address] 66930- 8367 Oct, Other chronic pain G89.29 [place] [address] 67868- 6069 Aug, [place] [address] [place] [id number] [place] [address] 51967- 9011 Jul, Other chronic pain G89.29 [place] [address] 13229- 5285 Jul, [place] [address] 99644- 5720 Jul, Chronic kidney disease, stage III (moderate) N18.3 [place] [address] 13496- 8622 04 Jul, 2017 Type 2 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 ; Essential hypertension I10 ; Irregular menstrual cycle N92.6 ; Hypertriglyceridemia E78.1 ; Anxiety disorder, unspecified F41.9 ; Severe episode of recurrent major depressive disorder, without psychotic features F33.2 ; Tonsillolith J35.8 ; Intrinsic eczema L20.84 ; Subclinical hypothyroidism E03.9 ; Viral pharyngitis J02.9 and Encounter for immunization Z23 [place] [address] [place] [id number] [place] [address] 27062- 7372 13 Jun, 2017 Essential hypertension I10 [place] [id number] [place] [address] 14554- 3714 08 Jun, 2017 [place] [address] [place] [id number] [place] [address] 64611- 1564 Jun, [place] [address] [place] [id number] [place] [address] 38081- 0085 May, Moderate persistent asthma without complication J45.40 [place] [address] 89420- 0565 May, Pain in right foot M79.671 ; Pain in left foot M79.672 ; Other chronic pain G89.29 and Chronic prescription opiate use Z79.891 [place] [address] [place] [id number] [place] [address] 01209- 8117 May, [place] [address] [place] [id number] [place] [address] 13530- 4831 May, [place] [address] [place] [id number] [place] [address] 55266- 6909 Apr, [place] [address] [place] [id number] [place] [address] 87319- 4803 Apr, Chronic migraine G43.709 [place] [address] 29141- 2857 Apr, Essential hypertension I10 ; Hypertriglyceridemia E78.1 and Chronic migraine G43.709 [place] [address] [place] [id number] [place] [address] 45016- 2719 Apr, [place] [address] [place] [id number] [place] [address] 17879- 0688 Apr, Sore throat J02.9 [place] [id number] [place] [address] 62612- 3432 Apr, [place] [address] [place] [id number] [place] [address] 50363- 2836 Mar, Strep pharyngitis J02.0 and Non-intractable vomiting with nausea, unspecified vomiting type R11.2 [place] [id number] [place] [address] 22982- 1269 Mar, [place] [address] [place] [id number] [place] [address] 73976- 1393 Mar, [place] [address] [place] [id number] [place] [address] 02056- 9421 Mar, [place] [address] [place] [id number] [place] [address] 87204- 8927 Mar, Type 2 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 ; Moderate persistent asthma without complication J45.40 ; Status post amputation of toe of left foot Z89.422 ; Acute seasonal allergic rhinitis, unspecified trigger J30.2 and Left shoulder pain, unspecified chronicity M25.512 [place] [id number] [address]- 9800 Mar, [place] [address] [place] [id number] [place] [address] 18273- 9968 February, Pre-op evaluation Z01.818 ; Type 2 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 and Type 2 diabetes mellitus with foot ulcer E11.621 [place] [address] [place] [id number] [place] [address] 57168- 1165 February, [place] [address] [place] [id number] [place] [address] 73454- 2038 February, [place] [address] [place] [id number] [place] [address] 72175- 3804 February, Toe infection L08.9 and Type 2 diabetes mellitus with other specified complication E11.69 [place] [address] [place] [id number] [place] [address] 12244- 1258 February, [place] [address] [place] [id number] [place] [address] 43165- 8335 Jan, Type 2 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 [place] [address] [place] [id number] [place] [address] 90135- 3629 Jan, [place] [address] [place] [id number] [place] [address] 30192- 7916 Jan, Right upper quadrant pain R10.11 and Intractable vomiting with nausea, unspecified vomiting type R11.2 [place] [id number] [place] [address] 95430- 1152 Jan, Hypertriglyceridemia E78.1 and Essential hypertension I10 [place] [address] [place] [id number] [place] [address] 05109- 6079 07 Jan, 2017 Essential hypertension I10 ; Type 2 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 and Hypertriglyceridemia E78.1 [place] [address] [place] [id number] [place] [address] 35576- 6003 Dec, Type 2 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 [facility] [address], [place] [address]- 3116 Dec, Hypertriglyceridemia E78.1 ; Essential hypertension I10 ; Type 2 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 ; Anxiety disorder , unspecified F41.9 and Moderate persistent asthma without complication J45.40 [facility] [address] [place] [id number] [place] [address] 76676- 4970 Dec, Type 2 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 [facility] [address] [place] [id number] [place] [address] [id number] Dec, [facility] [address] [place] [id number] [place] [address] 03912- 9816 Nov, [facility] [address] [place] [id number] [place] [address] 52169- 5326 Nov, [facility] [address] [place] [id number] [place] [address] 65532- 8342 Nov, [facility] [address] [place] [id number] [place] [address] 12616- 2742 Nov, Toe infection L08.9 [facility] [address] [place] [id number] [place] [address] 80972- 0248 Nov, [facility] [id number] [place] [address] 29787- 6318 Oct, History of amputation of hallux Z89.419 [facility] [address] [place] [address] 09225- 5801 Oct, Type 2 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 [facility] [address] [place] [id number] [place] [address] 91934- 6787 Oct, Type 2 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 [facility] [address], [place] [address]- 9518 Oct, Acute osteomyelitis of left foot M86.172 ; Pre-op exam Z01.818 and Type 2 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 [facility] [address] [place] [id number] [place] [address] 71035- 7920 Oct, Foot ulcer, left, with unspecified severity L97.529 ; Acute osteomyelitis of left foot M86.172 and Type 2 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 [facility] [address] [place] [id number] [place] [address] 39298- 5975 Sep, [facility] [address] [place] [id number] [place] [address] 42794- 1841 Sep, Intractable vomiting with nausea, unspecified vomiting type R11.2 and Right upper quadrant pain R10.11 [facility] [address] [place] [id number] [place] [address] 75209- 4460 Aug, [place] [address] [place] [id number] [place] [address] 82436- 6835 Jul, [facility] [address] [place] [id number] [place] [address] 24555- 8778 Jul, Preop examination Z01.818 [facility] [address] [place] [id number] [place] [address] 05425- 7164 Jul, [facility] [address] [place] [id number] [place] [address] 02524- 2488 Jul, [facility] [address] [place] [id number] [place] [address] 31013- 9254 Jul, Chronic osteomyelitis of left foot M86.672 and Ulcer of left foot, with unspecified severity L97.529 [place] [address] [place] [id number] [place] [address] 31565- 4134 Jul, Non-pressure chronic ulcer of other part of left foot with unspecified severity L97.529 [facility] [address] [place] [id number] [place] [address] 39354- 5941 Jul, [facility] [address] [place] [address]- 4899 Jul, [facility] [address] [place] [id number] [place] [address] 59572- 1140 28 Jun, 2016 [facility] [address] [place] [id number] [place] [address] 01249- 0275 Jun, [facility] [address] [place] [id number] [place] [address] 31936- 6894 Jun, [facility] [address] [place] [id number] [place] [address] 60381- 7404 Jun, Right upper quadrant pain R10.11 [facility] [address] [place] [id number] [place] [address] 42023- 1416 Jun, [facility] [address] [place] [id number] [place] [address] 12754- 9722 Jun, Intractable vomiting with nausea, unspecified vomiting type R11.2 [facility] [address] [place] [id number] [place] [address] 48621- 5363 13 Jun, 2016 Right upper quadrant pain R10.11 ; Migraine with aura and with status migrainosus, not intractable G43.101 and Intractable vomiting with nausea, unspecified vomiting type R11.2 [facility] [address] [place] [address] 69215- 5019 12 Jun, 2016 [facility] [address] [place] [id number] [place] [address] 54157- 8889 Jun, Gastroenteritis K52.9 [facility] [address] [place] [address] 37146- 2786 May, [facility] [address] [place] [id number] [place] [address] 27574- 5171 May, Hypertriglyceridemia E78.1 ; Essential hypertension I10 ; Type 2 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 ; Moderate persistent asthma without complication J45.40 ; Type 2 diabetes mellitus with foot ulcer E11.621 ; Other chronic pain G89.29 ; Pain in right leg M79.604 ; Pain of left leg M79.605 ; Rash and nonspecific skin eruption R21 and Anxiety disorder, unspecified F41.9 [place] [address] [place] [id number] [place] [address] 54457- 0173 May, Essential hypertension I10 ; Hypertriglyceridemia E78.1 ; Upper respiratory infection J06.9 ; Subclinical hypothyroidism E03.9 and Type 2 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 [place] [address] 18567- 3135 Apr, Hypertriglyceridemia E78.1 ; Subclinical hypothyroidism E03.9 ; Essential hypertension I10 and Type 2 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 [place] [address] 50880- 5741 Mar, [place] [address] 25066- 6178 Mar, Ulcer of right heel L97.419 [place] [address] [place] [id number] [place] [address] 65241- 4491 Mar, [place] [address] 29060- 6694 Mar, [place] [address] [place] [id number] [place] [address] 93934- 5696 February, [place] [address] [place] [id number] [place] [address] 42837- 2205 February, Ulcer of right heel L97.419 and DM neuro manif type II E11.49 [facility] [address] [place] [id number] [place] [address] 27417- 5578 Jan, [facility] [address] 82866- 5526 Jan, Ulcer of right heel L97.419 ; Type 2 diabetes mellitus with foot ulcer E11.621 and Non-pressure chronic ulcer of other part of left foot with unspecified severity L97.529 [place] [address] [place] [address]- 8013 Jan, [facility] [address] [place] [id number] [place] [address] 26266- 5218 Jan, [facility] [address] [place] [id number] [place] [address] 61841- 6996 Jan, Infection of toenail L03.039 [facility] [address] [place] [id number] [place] [address] 67259- 8633 14 Jan, 2016 Blister of toe of left foot, initial encounter S90.425A and Type 2 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 [facility] [address] [place] [id number] [place] [address] 99073- 0284 Jan, [facility] [id number] [place] [address] 47397 -4228 Jan, Sore throat J02.9 and Strep pharyngitis J02.0 [facility] [address] [place] [id number] [place] [address] 85335- 7872 Dec, Type 2 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 ; Upper respiratory infection J06.9 ; Cough R05 and Asthma exacerbation J45.901 [facility] [id number] [place] [address] 46198- 8552 Oct, [facility] [id number] [place] [address] 39451- 6843 Oct, [facility] [address] [place] [address] [id number] [place] [address] 15813- 6544 Oct, [facility] [id number] [place] [address] 44200- 7925 Oct, [facility] [address] [place] [id number] [place] [address] 22972- 8830 Sep, [facility] [id number] [place] [address] 98036- 3701 Aug, Anxiety disorder, unspecified F41.9 and Obesity E66.9 [facility] [address] [place] [id number] [place] [address] 68148- 0109 Aug, Moderate persistent asthma without complication J45.40 [facility] [address] [place] [id number] [place] [address] 92319- 4049 Aug, Anxiety disorder, unspecified F41.9 [place] [address] 11260- 4201 Aug, Chronic migraine G43.709 ; Encounter for immunization Z23 ; Hypertriglyceridemia E78.1 ; Type 2 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 ; Moderate persistent asthma without complication J45.40 and Morbid obesity E66.01 [place] [address] [place] [id number] [place] [address] 78039- 9152 Jul, [facility] [address] [place] [address] [id number] [place] [address] 73154- 4632 Jul, [facility] [address] [id number] [place] [address] 22433- 9873 Jul, [facility] [address] [place] [id number] [place] [address] 75539- 2064 Jul, Subclinical hypothyroidism E03.9 [facility] [address] [id number] [place] [address] 92328- 7435 Jun, Essential hypertension, benign 401.1 ; Diabetic ulcer of lower extremity 250.80 ; Asthma 493.90 ; Diabetes mellitus type II, uncontrolled 250.02 and Hyperlipidemia associated with type 2 diabetes mellitus 250.80 [facility] [id number] [place] [phone] 18 Jun, 2015 [place] [address] [phone] Jun, [facility] [id number] [place] [phone] May, [facility] [address] [address] Apr, [facility] [id number], [place] [address] Apr, Viral upper respiratory infection 465.9 and Asthma 493.90 [facility] [id number], [place] [address] Mar, Abnormal ankle brachial index 796.4 [facility] [id number] [place] [address] [id number] February, [facility] [id number] [place] [address] [id number]- [phone] February, Essential hypertension, benign 401.1 [facility] [id number] [place] [address] 056856- 5729 February, Diabetic peripheral neuropathy 250.60 ; Ulcer of heel and midfoot 707.14 and Decreased pedal pulses 785.9 [facility] [id number] [place] [address] 13984- 7016 February, [facility] [id number] [place] [address] 135920- 0433 February, [facility] [id number] [place] [address] 40574- 1105 Jan, [facility] [id number], [place] [address] 8201 Jan, [facility] [id number] [place] [address] 53460- 8586 Dec, [facility] [id number] [place] [address] 70917- 9644 Dec, [facility] [id number] [place] [address] 61437- 2661 Nov, [facility] [id number], [place] [address]- 9146 Nov, [facility] [id number] [place] [address] 82422- 0392 Nov, [facility] [place] [facility] [address] [id number] [place] [address]- 1154 Nov, [facility] [place] [facility] [address] [id number] [place] [address]- 5136 Nov, [facility] [place] [facility] [address] [facility] [id number] [place] [address]- 4936 Nov, [facility] [place] [facility] [address] [id number] [place] [address]- 7620 Nov, 2014 [facility] [place] [facility] [address] [id number] [place] [address]- 4600 Nov, [facility] [place] [facility] [address] [facility] [id number] [place] [address]- 8827 Nov, [facility] [place] [facility] [address] [id number] [address]- 3687 Oct, [facility] [place] [facility] [address] [facility] [id number] [place] [address]- 7831 Oct, [facility] [place] [facility] [address] [facility] [id number] [place] [address]- 8206 Oct, [facility] [place] [facility] [address] [facility] [id number] [place] [address]- 9982 Oct, [facility] [place] [facility] [address] [facility] [id number] [place] [address]- 5866 Oct, [facility] [place] [facility] [address] [facility] [id number] [place] [address]- 4886 Oct, [facility] [place] [facility] [address] [facility] [id number] [place] [address]- 6443 Oct, [facility] [place] [facility] [address] [facility] [id number] [place] [address]- 9236 Oct, [facility] [place] [facility] [address] [facility] [id number] [place] [address]- 5670 Oct, [facility] [place] [facility] [address] [id number] [place] [address]- 7606 Oct, [facility] [place] [facility] [address] [id number] [place] [address]- 2566 Oct, [facility] [place] [facility] [address] [id number] [place] [address]- 9196 Oct, [facility] [place] [facility] [address] [id number] [place] [address]- 6831 Oct, [facility] [place] [facility] [address] [id number] [place] [address]- 9646 Sep, [facility] [place] [facility] [address] [id number] [place] [address]- 3195 Sep, [facility] [place] [facility] [address] [id number] [place] [address]- 2390 Sep, [facility] [place] [facility] [address] [id number] [place] [address]- 9145 Sep, [facility] [place] [facility] [address] [id number] [place] [address]- 7691 Sep, [facility] [place] [facility] [address] [id number] [place] [address]- 9999 Sep, [facility] [place] [facility] [address] [id number] [place] [address]- 4221 Sep, [facility] [place] [facility] [address] [id number] [place] [address]- 3307 Sep, [facility] [place] [facility] [address] [id number] [place] [address]- 8815 Sep, [facility] [place] [facility] [address] [id number] [place] [address]- 2556 Sep, [facility] [place] [facility] [address] [id number] [place] [address]- 0776 Sep, [facility] [place] [facility] [address] [id number] [place] [address]- 1149 Sep, [facility] [place] [facility] [address] [id number] [place] 8125 Sep, [facility] [place] [facility] [address] [id number] [place] [address]- 6676 Sep, [facility] [place] [facility] [address] [id number] [place] 8965 Sep, [facility] [place] [facility] [address] [id number] [place] [address]- 8091 Sep, [facility] [place] [facility] [address] [id number] [place] [address]- 4665 Aug, [facility] [place] [facility] [address] [id number] [place] [address]- 4055 Aug, [facility] [place] [facility] [address] [id number] [place] [address]- 9029 Aug, [facility] [place] [facility] [address] [id number] [place] [address]- 9421 Aug, [facility] [place] [facility] [address] [id number] [place] [address]- 5396 Aug, [facility] [place] [facility] [address] [id number] [place] [address]- 5526 Aug, [facility] [place] [facility] [address] [id number] [address]- 0981 Aug, [facility] [place] [facility] [address] [id number], [place] [address]- 7089 Aug, [facility] [place] [facility] [address] [id number] [place] [address]- 5916 Jul, [facility] [place] [facility] [address] [id number] [place] [address]- 3921 Jul, [facility] [place] [facility] [address] [id number] [place] [address]- 5278 Jul, [facility] [place] [facility] [address] [id number] [place] [address]- 6233 15 Jul, 2014 [facility] [place] [facility] [address] [id number] [place] [address]- 7982 15 Jul, 2014 [facility] [place] [facility] [address] [id number] [place] [address]- 0078 Jun, [facility] [place] [facility] [address] [id number] [place] [address]- 7123 Jun, [facility] [place] [facility] [address] [id number] [place] [address]- 8262 Jun, [facility] [place] [facility] [address] [id number] [place] [address]- 9469 Jun, [facility] [place] [facility] [address] [id number] [place] [address]- 4413 Jun, [facility] [place] [facility] [address] [id number] [place] [address]- 7152 May, [facility] [place] [facility] [address] [id number] [place] [address]- 8899 May, [facility] [place] [facility] [address] [id number] [place] [address]- 1679 Apr, [facility] [place] [facility] [address] [id number] [place] [address]- 8982 Apr, [facility] [place] [facility] [address] [id number] [place] [address]- 5884 Apr, [facility] [place] [facility] [address] [id number] [place] [address]- 9682 Apr, [facility] [place] [facility] [address] [id number] [place] [address]- 3522 Apr, [facility] [place] [facility] [address] [id number] [place] [address]- 2003 Apr, [facility] [place] [facility] [address] [id number] [place] [address]- 0065 Mar, [facility] [place] [facility] [address] [id number] [place] [address]- 3798 Mar, [facility] [place] [facility] [address] [id number] [place] [address]- 7548 Mar, [facility] [place] [facility] [address] [id number] [place] [address]- 7026 Mar, [facility] [place] [facility] [address] [id number] [place] [address]- 1239 Mar, [facility] [place] [facility] [address] [id number] [place] [address]- 9307 Mar, [facility] [place] [facility] [address] [id number] [place] [address]- 2356 Mar, [facility] [place] [facility] [address] [id number] [place] [address]- 0679 Mar, [facility] [place] [facility] [address] [id number] [place] [address]- 0159 Mar, [facility] [place] [facility] [address] [id number] [place] [address]- 5851 Mar, [facility] [place] [facility] [address] [id number] [place] [address]- 5684 Mar, [facility] [place] [facility] [address] [id number] [place] [address]- 3364 Mar, [facility] [place] [facility] [address] [id number] [place] [address]- 3450 Mar, [facility] [place] [facility] [address] [id number] [place] [address]- 8337 Mar, [facility] [place] [facility] [address] [id number] [place] [address]- 1367 Mar, [facility] [place] [facility] [address] [id number] [place] [address]- 6375 07 Mar, 2014 [facility] [place] [facility] [address] [id number] [place] [address]- 4091 February, [facility] [place] [facility] [address] [id number] [place] [address]- 2433 February, [facility] [place] [facility] [address] [id number] [place] [address]- 9656 February, [facility] [place] [facility] [address] [id number] [place] [address]- 9927 February, [facility] [place] [facility] [address] [id number] [place] [address]- 4260 February, [facility] [place] [facility] [address] [id number] [place] [address]- 8132 February, [facility] [place] [facility] [address] [id number] [place] [address]- 6986 February, [facility] [place] [facility] [address] [id number] [place] [address]- 9900 February, [facility] [place] [facility] [address] [id number] [place] [address]- 0262 Jan, [facility] [place] [facility] [address] [id number] [place] [address]- 1350 Jan, [facility] [place] [facility] [address] [id number] [place] [address]- 1473 Dec, [facility] [place] [facility] [address] [id number] [place] [address]- 0743 Dec, [facility] [place] [facility] [address] [id number] [place] [address]- 8416 Dec, [facility] [place] [facility] [address] [id number] [place] [address]- 7376 Dec, [facility] [place] [facility] [address] [id number] [place] [address]- 4531 Dec, [facility] [place] [facility] [address] [id number] [place] [address]- 9055 Dec, [facility] [place] [facility] [address] [id number] [place] [address]- 7005 19 Dec, 2013 [facility] [address] [id number] [place] [address]- 2295 19 Dec, 2013 [facility] [place] [facility] [address] [id number] [place] [address]- 8686 17 Dec, 2013 [facility] [address] [id number] [place] [address]- 6132 17 Dec, 2013 [facility] [place] [facility] [address] [id number] [place] [address]- 0824 14 Dec, 2013 [facility] [address] [id number] [place] [address]- 3688 14 Dec, 2013 [facility] [address] [id number] [place] [address]- 0557 Dec, [facility] [place] [facility] [address] [id number] [place] [address]- 0041 Dec, [facility] [address] [id number] [place] [address]- 5705 Nov, [facility] [place] [facility] [address] [id number] [place] [address]- 9455 Nov, [facility] [address] [id number] [place] [address]- 5163 Oct, [facility] [place] [facility] [address] [id number] [place] [address]- 4394 Oct, [facility] [place] [facility] [address] [id number] [place] [address]- 1790 Oct, [facility] [place] [facility] [address] [id number] [place] [address]- 3952 Oct, [facility] [place] [facility] [address] [id number] [place] [address]- 1956 Oct, [facility] [place] [facility] [address] [id number] [place] [address]- 3653 Oct, [facility] [address] [id number] [place] 0261 Oct, [facility] [place] [facility] [address] [id number] [place] [address]- 6945 Sep, [facility] [place] [facility] [address] [id number] [place] [address]- 1923 30 Sep, 2013 [facility] [place] [facility] [address] [id number] [place] [address]- 9159 30 Sep, 2013 [facility] [address] [id number] [place] [address]- 6669 29 Sep, 2013 [facility] [place] [facility] [address] [id number] [place] [address]- 6610 Sep, [facility] [place] [facility] [address] [id number] [place] [address]- 5688 Sep, [facility] [place] [facility] [address] [id number] [place] [address]- 7764 Sep, [facility] [place] [facility] [address] [id number] [place] [address]- 3234 Sep, [facility] [place] [facility] [address] [id number] [place] [address]- 4759 Sep, [facility] [place] [facility] [address] [id number] [place] [address]- 4525 Sep, [facility] [place] [facility] [address] [id number] [place] [address]- 9918 Sep, [facility] [place] [facility] [address] [id number] [place] [address]- 1022 Sep, [facility] [place] [facility] [address] [id number] [place] [address]- 9256 16 Sep, 2013 [facility] [place] [facility] [address] [id number] [place] [address]- 6773 16 Sep, 2013 [facility] [place] [facility] [address] [id number] [place] [address]- 1240 Sep, [facility] [address] [id number] [place] [address]- 0415 Sep, [facility] [place] [facility] [address] [id number] [place] [address]- 6451 Sep, [facility] [address] [id number] [place] [address]- 2865 Sep, [facility] [place] [facility] [address] [id number] [place] [address]- 3339 Sep, [facility] [address] [id number] [place] [address]- 1135 Aug, [facility] [place] [facility] [address] [id number] [place] [address]- 0055 Aug, [facility] [address] [id number] [place] [address]- 5779 Aug, [facility] [place] [facility] [address] [id number] [place] [address]- 4224 Aug, [facility] [address] [id number] [place] [address]- 5817 Aug, [facility] [place] [facility] [address] [id number] [place] [address]- 1591 Aug, [facility] [address] [id number] [place] [address]- 8778 Aug, [facility] [place] [facility] [address] [id number], [place] [address]- 4993 Aug, [facility] [place] [facility] [address] [id number], [place] [address]- 9318 Aug, [facility] [place] [facility] [address] [id number], [place] [address]- 2505 Aug, [facility] [place] [facility] [address] [id number], [place] [address]- 5812 Aug, [facility] [place] [facility] [address] [id number] [place] [address]- 2007 Aug, [facility] [place] [facility] [address] [id number] [place] [address]- 7970 Aug, [facility] [place] [facility] [address] [id number] [place] [address]- 3573 Aug, [facility] [place] [facility] [address] [id number] [place] [address]- 7543 Aug, [facility] [place] [facility] [address] [id number] [place] [address]- 7340 Aug, [facility] [place] [facility] [address] [id number] [place] [address]- 0734 Aug, [facility] [place] [facility] [address] [id number] [place] [address]- 2452 Jul, [facility] [place] [facility] [address] [id number] [place] [address]- 6025 Jul, [facility] [place] [facility] [address] [id number] [place] [address]- 6028 Jul, [facility] [place] [facility] [address] [id number] [place] [address]- 3543 Jul, [facility] [place] [facility] [address] [id number] [place] [address]- 4689 Jul, [facility] [place] [facility] [address] [id number] [place] [address]- 0021 Jul, [facility] [place] [facility] [address] [id number] [place] [address]- 8313 Jul, [facility] [place] [facility] [address] [id number] [place] [address]- 6696 27 Jun, 2013 [facility] [place] [facility] [address] [id number] [place] [address]- 2645 20 Jun, 2013 [facility] [place] [facility] [address] [id number] [place] [address]- 1057 17 Jun, 2013 [facility] [address] [id number] [address]- 0463 10 Jun, 2013 [facility] [id number], [place] [address]- 5413 Jun, [facility] [id number], [place] [address]- 0313 Jun, [facility] [id number], [place] [address]- 1453 05 Jun, 2013 [facility] [id number], [place] [address]- 4738 Jun, [facility] [id number] [place] [address]- 7951 May, [facility] [id number], [place] [address]- 6527 May, [facility] [id number], [place] [address]- 6154 May, [facility] [id number], [place] [address]- 2239 May, [facility] [id number], [place] [address]- 1843 May, [facility] [id number], [place] [address]- 3887 May, [facility] [id number], [place] [address]- 2619 May, [facility] [address] [id number] [address]- 5546 May, IMMUNIZATIONS No Known Immunizations SOCIAL HISTORY Never Assessed REASON FOR VISIT Refill request PLAN OF CARE VITAL SIGNS MEDICATIONS Medication Instructions Dosage Frequency Start Date End Date Duration Status Zofran 8 MG Orally every 8 hours one tablet as needed 8h Dec, Active RESULTS No Results PROCEDURES No Known procedures INSTRUCTIONS MEDICATIONS ADMINISTERED No Known Medications MEDICAL (GENERAL) HISTORY Type Description Date Medical History type I diabetes Medical History hypertension Medical History hyperlipidemia Medical History asthma Medical History migraine headaches Medical History allergic rhinitis Medical History neuropathy Medical History Chronic osteomyelitis, site unspecified Medical History 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 Surgical History appendectomy [facility] 1995 Surgical History salpingectomy [facility] Surgical History bladder surgery-stretch [facility] 2003 Surgical History exploratory laparoscopy [facility] 1995 Surgical History amputation, toe (R great) Surgical History amputation, (R forefoot) 2014 Surgical History amputation, toe Left second 12/2016 Surgical History amputation, 4th left toe 02/2017 Hospitalization History Left foot cellulitis, left 2nd toe amputation-[facility] 12/23 Hospitalization History Surgery Hospitalizations
--- OUTSIDE RECORDS SUMMARY | 2018-08-22 08:56 | XMS REPORT ---
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 Role Phone FARNAZ FLORENCEY Unavailable PROBLEMS Type Condition ICD9-CM Code [id number] Code Onset Dates Condition Status SNOMED Code Problem Subclinical hypothyroidism E03.9 Active 99542564 Problem Hypertriglyceridemia E78.1 Active 402608620 Problem Type 2 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 Active 410318378 Problem Type 2 diabetes mellitus with diabetic chronic 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 Active 216952647 Problem Other chronic pain G89.29 Active 74097548 Problem Type 2 diabetes mellitus with other skin complications E11.628 Active 91978275 Problem Pain in left foot M79.672 Active 20997096 Problem Irregular menstrual cycle N92.6 Active 99413260 Problem Pain in right foot M79.671 Active 83409500 Problem Tonsillolith J35.8 Active 6928618 Problem Chronic prescription opiate use Z79.891 Active 232344454 Problem Seasonal allergic rhinitis due to pollen J30.1 Active 69886821 Problem Asthma exacerbation, mild J45.901 Active 208146672 Problem Chronic kidney disease, stage III (moderate) N18.3 Active 710855631 Problem Chronic migraine G43.709 Active 03509224 Problem Moderate persistent asthma without complication J45.40 Active 547721484 Problem Intrinsic eczema L20.84 Active 53987870 Problem Severe episode of recurrent major depressive disorder, without psychotic features F33.2 Active 29897193 Problem Non-pressure chronic ulcer of right heel and midfoot limited to breakdown of skin L97.411 Active 500359168 Problem Ulcer of right heel L97.419 Active 524228512 Problem Obesity E66.9 Active 840676748 Problem Type 2 diabetes mellitus with foot ulcer E11.621 Active 41893243 Problem Essential hypertension I10 Active 56996451 Problem Anxiety disorder, unspecified F41.9 Active 827108987 Problem Type 2 diabetes mellitus with other specified complication E11.69 Active 071297466 Problem Status post amputation of toe of left foot Z89.422 Active 821007692 Problem DM neuro manif type II E11.49 Active 43838250 Problem History of amputation of hallux Z89.419 Active 059800426 ALLERGIES No Information ENCOUNTERS Encounter Location Date Diagnosis [facility] [address] [address]- [address] 28 Jun, 2018 [facility] [address] 14906- 1709 26 Jun, 2018 [facility] [address] 62496- 4217 07 Jun, 2018 Type 2 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 [facility] [id number] 27913- 7547 27 May, 2018 [facility] [address] 89359- 8904 May, [facility] [address] 75373- 8809 May, Nausea R11.0 [facility] [address] 83494- 7767 May, Other chronic pain G89.29 and Nausea R11.0 [facility] [address] 20698- 5756 May, Left genital labial abscess N76.4 and BMI 60.0-69.9, adult Z68.44 [facility] [address] 08605- 1051 May, [facility] [address] 90780- 4786 Apr, [facility] [address] 55102- 2545 Apr, Chronic migraine G43.709 [facility] [address] 32764- 6081 Apr, [facility] [address] [place] [id number] [place] [address] 01115- 6216 Mar, Moderate persistent asthma without complication J45.40 [facility] [id number] [place] [address] 36619- 8325 Mar, Moderate persistent asthma without complication J45.40 [facility] [id number] [place] [address] 01960- 3683 Mar, [facility] [id number] [place] [address] 29702- 9464 February, Chronic migraine G43.709 [facility] [address] [place] [address] [id number] [place] [address] 87313- 8063 February, Chronic migraine G43.709 [facility] [address] [place] [address] [id number] [place] [address] 48779- 9685 February, [facility] [id number] [place] [address] 39499- 9173 February, [facility] [address] [place] [address] [id number] [place] [address] 13555- 8579 February, Type 2 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 ; Moderate persistent asthma without complication J45.40 ; Type 2 diabetes mellitus with foot ulcer E11.621 ; Non-pressure chronic ulcer of right heel and midfoot limited to breakdown of skin L97.411 ; Chronic migraine G43.709 and BMI 60.0-69.9, adult Z68.44 [facility] [id number] [place] [address] 20399 -9356 Jan, Asthma exacerbation, mild J45.901 ; Seasonal allergic rhinitis due to pollen J30.1 and BMI 60.0-69.9, adult Z68.44 [facility] [address] [address] 80[address] Jan, [facility] [id number] [place] [address] 55019- 3772 Jan, Other chronic pain G89.29 [facility] [address] [place] [id number] [place] [address] 72869- 2916 30 Dec, 2017 Type 2 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 [facility] [address] [place] [id number] [place] [address] 21769- 5266 19 Dec, 2017 Type 2 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 [facility] [address] 26974- 1637 15 Dec, 2017 [facility] [address] [place] [id number] [place] [address] 13531- 8963 14 Dec, 2017 [facility] [address] 46921- 6312 13 Dec, 2017 Chronic kidney disease, stage III (moderate) N18.3 [facility] [address] 79098 -0166 09 Dec, 2017 Nausea R11.0 and Diarrhea, unspecified type R19.7 [facility] [address] [place] [id number] [place] [address] 28019- 8377 07 Dec, 2017 Chronic kidney disease, stage III (moderate) N18.3 and Type 2 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 [facility] [address] [place] [id number] [place] [address] 92475- 8918 Dec, [facility] [address] 61793- 0637 Nov, Ulcer of right heel L97.419 and Type 2 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 [facility] [address] [id number] Nov, Dental examination Z01.20 [facility] [address] [place] [id number] [place] [address] 33990- 3135 Nov, Open wound of right foot, initial encounter S91.301A [facility] [id number] [place] [address] 08071 -8935 Nov, Open wound of right foot, initial encounter S91.301A ; Non- intractable vomiting with nausea, unspecified vomiting type R11.2 and BMI 60.0- 69.9, adult Z68.44 [facility] [address] [place] [id number] [place] [address] 47156- 7871 Nov, [facility] [address] 42372- 8224 Nov, Other chronic pain G89.29 [facility] [address] 36767- 5133 Oct, Cellulitis of right lower limb L03.115 [facility] [address] 62175- 9462 Oct, [facility] [address] 39628- 0441 Oct, [facility] [address] [place] [id number] [place] [address] 86536- 3371 Oct, Cat scratch W55.03XA ; Cellulitis of right lower limb L03.115 ; Acute nasopharyngitis J00 ; BMI 60.0-69.9, adult Z68.44 and Cough R05 [facility] [address] [place] [id number] [place] [address] 84518- 8457 Oct, Cat scratch W55.03XA ; Cutaneous abscess of right lower extremity L02.415 and Cellulitis of right lower limb L03.115 [facility] [address] [place] [id number] [place] [address] 50957- 4682 Oct, Type 2 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 [facility] [address] 80553- 4355 Oct, Other chronic pain G89.29 [facility] [address] 10723- 8895 Aug, [facility] [address] [place] [id number] [place] [address] 35153- 0548 Jul, Other chronic pain G89.29 [facility] [address] 83070- 2884 Jul, [facility] [address] 01364- 7981 Jul, Chronic kidney disease, stage III (moderate) N18.3 [facility] [address] 37597- 5735 04 Jul, 2017 Type 2 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 ; Essential hypertension I10 ; Irregular menstrual cycle N92.6 ; Hypertriglyceridemia E78.1 ; Anxiety disorder, unspecified F41.9 ; Severe episode of recurrent major depressive disorder, without psychotic features F33.2 ; Tonsillolith J35.8 ; Intrinsic eczema L20.84 ; Subclinical hypothyroidism E03.9 ; Viral pharyngitis J02.9 and Encounter for immunization Z23 [facility] [address] [id number] [place] [address] 12720- 1347 13 Jun, 2017 Essential hypertension I10 [place] [id number] [place] [address] 20676- 6541 08 Jun, 2017 [facility] [address] [place] [id number] [place] [address] 28738- 0155 Jun, [facility] [address] [place] [id number] [place] [address] 31521- 2595 May, Moderate persistent asthma without complication J45.40 [facility] [address] 30405- 5329 May, Pain in right foot M79.671 ; Pain in left foot M79.672 ; Other chronic pain G89.29 and Chronic prescription opiate use Z79.891 [facility] [address] [place] [id number] [place] [address] 85217- 4124 May, [facility] [address] [place] [id number] [place] [address] 82535- 3746 May, [facility] [address] [place] [id number] [place] [address] 38797- 6181 Apr, [facility] [address] [place] [id number] [place] [address] 02650- 6002 Apr, Chronic migraine G43.709 [facility] [address] 90209- 2848 Apr, Essential hypertension I10 ; Hypertriglyceridemia E78.1 and Chronic migraine G43.709 [facility] [address] [place] [id number] [place] [address] 65319- 8137 Apr, [facility] [address] [place] [id number] [place] [address] 79194- 6242 Apr, Sore throat J02.9 [place] [id number] [place] [address] 87632- 0258 Apr, [facility] [address] [place] [id number] [place] [address] 04788- 5581 Mar, Strep pharyngitis J02.0 and Non-intractable vomiting with nausea, unspecified vomiting type R11.2 [place] [id number] [place] [address] 43085- 2785 Mar, [facility] [address] [place] [id number] [place] [address] 65060- 9114 Mar, [facility] [address] [place] [id number] [place] [address] 34907- 5360 Mar, [facility] [address] [place] [id number] [place] [address] 57342- 0891 Mar, Type 2 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 ; Moderate persistent asthma without complication J45.40 ; Status post amputation of toe of left foot Z89.422 ; Acute seasonal allergic rhinitis, unspecified trigger J30.2 and Left shoulder pain, unspecified chronicity M25.512 [place] [id number] [address]- 3868 Mar, [facility] [address] [place] [id number] [place] [address] 01752- 4495 February, Pre-op evaluation Z01.818 ; Type 2 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 and Type 2 diabetes mellitus with foot ulcer E11.621 [facility] [address] [place] [id number] [place] [address] 64867- 0889 February, [facility] [address] [place] [id number] [place] [address] 29564- 9654 February, [facility] [address] [place] [id number] [place] [address] 71224- 3297 February, Toe infection L08.9 and Type 2 diabetes mellitus with other specified complication E11.69 [facility] [address] [place] [id number] [place] [address] 23710- 2555 February, [facility] [address] [place] [id number] [place] [address] 32600- 7118 Jan, Type 2 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 [facility] [address] [place] [id number] [place] [address] 20201- 4960 Jan, [facility] [address] [place] [id number] [place] [address] 79302- 7301 Jan, Right upper quadrant pain R10.11 and Intractable vomiting with nausea, unspecified vomiting type R11.2 [facility] [address] [place] [address] 10101- 5072 Jan, Hypertriglyceridemia E78.1 and Essential hypertension I10 [facility] [address] [place] [id number] [place] [address] 36899- 7370 07 Jan, 2017 Essential hypertension I10 ; Type 2 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 and Hypertriglyceridemia E78.1 [facility] [address] [place] [id number] [place] [address] 83284- 6672 Dec, Type 2 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 [facility] [address] [address]- 9691 Dec, Hypertriglyceridemia E78.1 ; Essential hypertension I10 ; Type 2 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 ; Anxiety disorder , unspecified F41.9 and Moderate persistent asthma without complication J45.40 [facility] [address] [place] [id number] [place] [address] 47461- 7394 Dec, Type 2 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 [facility] [address] [place] [id number] [place] [address] [id number] Dec, [facility] [address] [place] [id number] [place] [address] 04389- 1717 Nov, [facility] [address] [place] [id number] [place] [address] 48697- 1284 Nov, [facility] [address] [place] [id number] [place] [address] 04203- 9528 Nov, [facility] [address] [place] [id number] [place] [address] 20481- 5281 Nov, Toe infection L08.9 [facility] [address] [place] [id number] [place] [address] 90135- 4880 Nov, [facility] [address] [place] [address] 85264- 3216 Oct, History of amputation of hallux Z89.419 [facility] [address] [place] [address] 69535- 4135 Oct, Type 2 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 [facility] [address] [place] [id number] [place] [address] 95754- 6234 Oct, Type 2 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 [facility] [address] [address]- 6514 Oct, Acute osteomyelitis of left foot M86.172 ; Pre-op exam Z01.818 and Type 2 diabetes mellitus with diabetic polyneuropathy E11.42 [facility] [address] [place] [id number] [place] [address] 05078- 7572 Oct, Foot ulcer, left, with unspecified severity L97.529 ; Acute osteomyelitis of left foot M86.172 and Type 2 diabetes mellitus with diabetic polyneuropathy E11.42 [facility] [address] [place] [id number] [place] [address] 22141- 3117 Sep, [facility] [address] [place] [id number] [place] [address] 58550- 8532 Sep, Intractable vomiting with nausea, unspecified vomiting type R11.2 and Right upper quadrant pain R10.11 [facility] [address] [place] [id number] [place] [address] 65940- 8426 Aug, [facility] [place] [address] [place] [id number] [place] [address] 46151- 8726 Jul, [facility] [address] [place] [id number] [place] [address] 64249- 4515 Jul, Preop examination Z01.818 [facility] [address] [place] [id number] [place] [address] 14537- 7978 Jul, [facility] [address] [place] [id number] [place] [address] 72695- 0362 Jul, [facility] [address] [place] [id number] [place] [address] 21927- 0590 Jul, Chronic osteomyelitis of left foot M86.672 and Ulcer of left foot, with unspecified severity L97.529 [facility] [address] [place] [address] [id number] [place] [address] 22738- 2889 Jul, Non-pressure chronic ulcer of other part of left foot with unspecified severity L97.529 [facility] [address] [place] [address] [id number] [place] [address] 55538- 0228 Jul, [facility] [address] [place] [address]- 3971 Jul, [facility] [address] [address] [id number] [place] [address] 56218- 2029 28 Jun, 2016 [facility] [address] [address] [id number] [place] [address] 93286- 5136 Jun, [facility] [address] [place] [id number] [place] [address] 63658- 3427 Jun, [facility] [address] [address] [id number] [place] [address] 30713- 1357 Jun, Right upper quadrant pain R10.11 [facility] [address] [place] [id number] [place] [address] 93089- 5972 Jun, [facility] [address] [place] [id number] [place] [address] 00526- 3189 Jun, Intractable vomiting with nausea, unspecified vomiting type R11.2 [facility] [address] [place] [id number] [place] [address] 39309- 2644 13 Jun, 2016 Right upper quadrant pain R10.11 ; Migraine with aura and with status migrainosus, not intractable G43.101 and Intractable vomiting with nausea, unspecified vomiting type R11.2 [facility] [address] [place] [address] 69286- 5964 12 Jun, 2016 [facility] [address] [place] [id number] [place] [address] 98434- 3867 Jun, Gastroenteritis K52.9 [facility] [address] [place] [address] 39336- 5271 May, [facility] [address] [place] [id number] [place] [address] 19594- 5936 May, Hypertriglyceridemia E78.1 ; Essential hypertension I10 ; Type 2 diabetes mellitus with diabetic polyneuropathy E11.42 ; Moderate persistent asthma without complication J45.40 ; Type 2 diabetes mellitus with foot ulcer E11.621 ; Other chronic pain G89.29 ; Pain in right leg M79.604 ; Pain of left leg M79.605 ; Rash and nonspecific skin eruption R21 and Anxiety disorder, unspecified F41.9 [facility] [place] [address] [place] [address] [id number] [place] [address] 05952- 6091 May, Essential hypertension I10 ; Hypertriglyceridemia E78.1 ; Upper respiratory infection J06.9 ; Subclinical hypothyroidism E03.9 and Type 2 diabetes mellitus with diabetic polyneuropathy E11.42 [place] [address] 80604- 8212 Apr, Hypertriglyceridemia E78.1 ; Subclinical hypothyroidism E03.9 ; Essential hypertension I10 and Type 2 diabetes mellitus with diabetic polyneuropathy E11.42 [place] [address] 08890- 6063 Mar, [place] [address] 59504- 6251 Mar, Ulcer of right heel L97.419 [facility] [place] [address] [place] [id number] [place] [address] 57030- 0268 Mar, [facility] [address] 79838- 2084 Mar, [facility] [place] [address] [place] [id number] [place] [address] 80658- 4092 February, [facility] [place] [address] [place] [id number] [place] [address] 65260- 0393 February, Ulcer of right heel L97.419 and DM neuro manif type II E11.49 [facility] [address] [place] [address] [id number] [place] [address] 42551- 1129 Jan, [facility] [address] 06617- 9753 Jan, Ulcer of right heel L97.419 ; Type 2 diabetes mellitus with foot ulcer E11.621 and Non-pressure chronic ulcer of other part of left foot with unspecified severity L97.529 [place] [address] [place] [address]- 4990 Jan, [facility] [address] [address] [id number] [place] [address] 55869- 4189 Jan, [facility] [address] [address] [id number] [place] [address] 99793- 5967 Jan, Infection of toenail L03.039 [facility] [address] [address] [id number] [place] [address] 60851- 5080 14 Jan, 2016 Blister of toe of left foot, initial encounter S90.425A and Type 2 diabetes mellitus with diabetic polyneuropathy E11.42 [facility] [address] [place] [id number] [place] [address] 80280- 6737 Jan, [facility] [address] [place] [address] 68740 -9344 Jan, Sore throat J02.9 and Strep pharyngitis J02.0 [facility] [address] [place] [id number] [place] [address] 62679- 7860 Dec, Type 2 diabetes mellitus with diabetic polyneuropathy E11.42 ; Upper respiratory infection J06.9 ; Cough R05 and Asthma exacerbation J45.901 [facility] [address] [place] [address] 63899- 2848 Oct, [facility] [address] [place] [address] 80705- 7513 Oct, [facility] [address] [id number] [place] [address] 60228- 6171 Oct, [facility] [address] [place] [address] 49530- 7171 Oct, [facility] [address] [address] [id number] [place] [address] 23982- 1081 Sep, [facility] [address] [place] [address] 70121- 6081 Aug, Anxiety disorder, unspecified F41.9 and Obesity E66.9 [facility] [address] [place] [id number] [place] [address] 37409- 6472 Aug, Moderate persistent asthma without complication J45.40 [facility] [address] [place] [id number] [place] [address] 42763- 9267 Aug, Anxiety disorder, unspecified F41.9 [place] [address] 32185- 6913 Aug, Chronic migraine G43.709 ; Encounter for immunization Z23 ; Hypertriglyceridemia E78.1 ; Type 2 diabetes mellitus with diabetic polyneuropathy E11.42 ; Moderate persistent asthma without complication J45.40 and Morbid obesity E66.01 [place] [address] [place] [id number] [place] [address] 46422- 2131 Jul, [facility] [address] [address] [id number] [place] [address] 21409- 5898 Jul, [facility] [address] [place] [address] [id number] [place] [address] 79137- 7959 Jul, [facility] [address] [place] [id number] [place] [address] 12935- 0066 Jul, Subclinical hypothyroidism E03.9 [facility] [address] [place] [address] [id number] [place] [address] 62788- 8962 Jun, Essential hypertension, benign 401.1 ; Diabetic ulcer of lower extremity 250.80 ; Asthma 493.90 ; Diabetes mellitus type II, uncontrolled 250.02 and Hyperlipidemia associated with type 2 diabetes mellitus 250.80 [facility] [address] [place] [id number] [place] [address] 82541- 8149 18 Jun, 2015 [place] [address] 69532- 9220 Jun, [facility] [address] [place] [id number] [place] [address] 58507- 2049 May, [facility] [address] 79950- 7041 Apr, [facility] [id number] [address] Apr, Viral upper respiratory infection 465.9 and Asthma 493.90 [facility] [id number] [address] Mar, Abnormal ankle brachial index 796.4 [facility] [id number] [place] [address] [id number]- 7114 February, [facility] [id number] [place] [address] 016006- 4163 February, Essential hypertension, benign 401.1 [facility] [address] [id number] [place] [address] 236039- 0717 February, Diabetic peripheral neuropathy 250.60 ; Ulcer of heel and midfoot 707.14 and Decreased pedal pulses 785.9 [facility] [id number] [place] [address] 82560- 3176 February, [facility] [id number] [place] [address] [id number]- 2458 February, [facility] [id number] [place] [address] 87007- 3048 Jan, [facility] [id number] [address] Jan, [facility] [id number] [place] [address] 55711- 7336 Dec, [facility] [id number] [place] [address] 36013- 3503 Dec, [facility] [id number] [place] [address]447 Nov, [facility] [id number] [address] Nov, [facility] [id number] [place] [address]- 8030 Nov, [facility] [place] [facility] [address] [id number] [place] [address] 5629 Nov, [facility] [place] [facility] [address] [id number] [place] [address] 9396 Nov, [facility] [place] [facility] [address] [facility] [id number] [place] [address]- 4196 Nov, [facility] [place] [facility] [address] [id number] [place] [address]- 9766 Nov, 2014 [facility] [place] [facility] [address] [id number] [place] [address]- 9899 Nov, [facility] [place] [facility] [address] [facility] [id number] [place] [address]- 4012 Nov, [facility] [place] [facility] [address] [id number] [place] [address] 8700 Oct, [facility] [place] [facility] [address] [facility] [id number] [place] [address]- 0732 Oct, [facility] [place] [facility] [address] [facility] [id number] [place] [address]- 6433 Oct, [facility] [place] [facility] [address] [facility] [id number] [place] [address]- 0103 Oct, [facility] [place] [facility] [address] [facility] [id number] [place] [address]- 9522 Oct, [facility] [place] [facility] [address] [facility] [id number] [place] [address]- 3457 Oct, [facility] [place] [facility] [address] [facility] [id number] [place] [address]- 7514 Oct, [facility] [place] [facility] [address] [facility] [id number] [place] [address]- 9182 Oct, [facility] [place] [facility] [address] [facility] [id number] [place] [address]- 1752 Oct, [facility] [place] [facility] [address] [id number] [place] [address]- 6706 Oct, [facility] [place] [facility] [address] [id number] [place] [address]- 3519 Oct, [facility] [place] [facility] [address] [id number] [place] [address]- 5256 Oct, [facility] [place] [facility] [address] [id number] [place] [address]- 2011 Oct, [facility] [place] [facility] [address] [id number] [place] [address]- 2792 Sep, [facility] [place] [facility] [address] [id number] [place] [address]- 8287 Sep, [facility] [place] [facility] [address] [id number] [place] [address]- 7498 Sep, [facility] [place] [facility] [address] [id number] [place] [address]- 7469 Sep, [facility] [place] [facility] [address] [id number] [place] [address]- 1481 Sep, [facility] [place] [facility] [address] [id number] [place] [address]- 6678 Sep, [facility] [place] [facility] [address] [id number] [place] [address]- 0639 Sep, [facility] [place] [facility] [address] [id number] [place] [address]- 6272 Sep, [facility] [place] [facility] [address] [id number] [place] [address]- 3762 Sep, [facility] [place] [facility] [address] [id number] [place] [address]- 3246 Sep, [facility] [place] [facility] [address] [id number] [place] [address]- 0946 Sep, [facility] [place] [facility] [address] [id number] [place] [address]- 5589 Sep, [facility] [place] [facility] [address] [id number] [place] [address]60 Sep, [facility] [place] [facility] [address] [id number] [place] [address]- 3849 Sep, [facility] [place] [facility] [address] [id number] [place] [address]131 Sep, [facility] [place] [facility] [address] [id number] [place] [address]- 7002 Sep, [facility] [place] [facility] [address] [id number] [place] [address]- 9815 Aug, [facility] [place] [facility] [address] [id number] [place] [address]- 4474 Aug, [facility] [place] [facility] [address] [id number] [place] [address]- 4112 Aug, [facility] [place] [facility] [address] [id number] [place] [address]- 2489 Aug, [facility] [place] [facility] [address] [id number] [place] [address]- 6810 Aug, [facility] [place] [facility] [address] [id number] [place] [address]- 5532 Aug, [facility] [place] [facility] [address] [id number] [address]- 2802 Aug, [facility] [place] [facility] [address] [id number] [address]- 1608 Aug, [facility] [place] [facility] [address] [id number] [place] [address]- 2993 Jul, [facility] [place] [facility] [address] [id number] [place] [address]- 5173 Jul, [facility] [place] [facility] [address] [id number] [place] [address]- 5093 Jul, [facility] [place] [facility] [address] [id number] [place] [address]- 5969 15 Jul, 2014 [facility] [place] [facility] [address] [id number] [place] [address]- 6708 15 Jul, 2014 [facility] [place] [facility] [address] [id number] [place] [address]- 1143 Jun, [facility] [place] [facility] [address] [id number] [place] [address]- 3758 Jun, [facility] [place] [facility] [address] [id number] [place] [address]- 3482 Jun, [facility] [place] [facility] [address] [id number] [place] [address]- 5762 Jun, [facility] [place] [facility] [address] [id number] [place] [address]- 3506 Jun, [facility] [place] [facility] [address] [id number] [place] [address]- 4087 May, [facility] [place] [facility] [address] [id number] [place] [address]- 0779 May, [facility] [place] [facility] [address] [id number] [place] [address]- 3888 Apr, [facility] [place] [facility] [address] [id number] [place] [address]- 4087 Apr, [facility] [place] [facility] [address] [id number] [place] [address]- 5358 Apr, [facility] [place] [facility] [address] [id number] [place] [address]- 4363 Apr, [facility] [place] [facility] [address] [id number] [place] [address]- 6335 Apr, [facility] [place] [facility] [address] [id number] [place] [address]- 6528 Apr, [facility] [place] [facility] [address] [id number] [place] [address]- 1813 Mar, [facility] [place] [facility] [address] [id number] [place] [address]- 8777 Mar, [facility] [place] [facility] [address] [id number] [place] [address]- 9319 Mar, [facility] [place] [facility] [address] [id number] [place] [address]- 9823 Mar, [facility] [place] [facility] [address] [id number] [place] [address]- 1045 Mar, [facility] [place] [facility] [address] [id number] [place] [address]- 0250 Mar, [facility] [place] [facility] [address] [id number] [place] [address]- 7588 Mar, [facility] [place] [facility] [address] [id number] [place] [address]- 0087 Mar, [facility] [place] [facility] [address] [id number] [place] [address]- 0444 Mar, [facility] [place] [facility] [address] [id number] [place] [address]- 4995 Mar, [facility] [place] [facility] [address] [id number] [place] [address]- 5686 Mar, [facility] [place] [facility] [address] [id number] [place] [address]- 4892 Mar, [facility] [place] [facility] [address] [id number] [place] [address]- 0045 Mar, [facility] [place] [facility] [address] [id number] [place] [address]- 3422 Mar, [facility] [place] [facility] [address] [id number] [place] [address]- 8915 Mar, [facility] [place] [facility] [address] [id number] [place] [address]- 7256 07 Mar, 2014 [facility] [place] [facility] [address] [id number] [place] [address]- 0729 February, [facility] [place] [facility] [address] [id number] [place] [address]- 5265 February, [facility] [place] [facility] [address] [id number] [place] [address]- 3506 February, [facility] [place] [facility] [address] [id number] [place] [address]- 6622 February, [facility] [place] [facility] [address] [id number] [place] [address]- 9894 February, [facility] [place] [facility] [address] [id number] [place] [address]- 9584 February, [facility] [place] [facility] [address] [id number] [place] [address]- 0730 February, [facility] [place] [facility] [address] [id number] [place] [address]- 1961 February, [facility] [place] [facility] [address] [id number] [place] [address]- 2356 Jan, [facility] [place] [facility] [address] [id number] [place] [address]- 8061 Jan, [facility] [place] [facility] [address] [id number] [place] [address]- 0276 Dec, [facility] [place] [facility] [address] [id number] [place] [address]- 3361 Dec, [facility] [place] [facility] [address] [id number] [place] [address]- 8999 Dec, [facility] [place] [facility] [address] [id number] [place] [address]- 8528 Dec, [facility] [place] [facility] [address] [id number] [place] [address]- 2025 Dec, [facility] [place] [facility] [address] [id number] [place] [address]- 9798 Dec, [facility] [place] [facility] [address] [id number] [place] [address]- 6948 19 Dec, 2013 [facility] [address] [id number] [place] [address]- 8832 19 Dec, 2013 [facility] [place] [facility] [address] [id number] [place] [address]- 8606 17 Dec, 2013 [facility] [address] [id number] [place] [address]- 3764 17 Dec, 2013 [facility] [place] [facility] [address] [id number] [place] [address]- 6869 14 Dec, 2013 [facility] [address] [id number] [place] [address]- 3511 14 Dec, 2013 [facility] [address] [id number] [place] [address]- 1243 Dec, [facility] [place] [facility] [address] [id number] [place] [address]- 5060 Dec, [facility] [address] [id number] [place] [address]- 4047 Nov, [facility] [place] [facility] [address] [id number] [place] [address]- 3075 Nov, [facility] [address] [id number] [place] [address]- 8204 Oct, [facility] [place] [facility] [address] [id number] [place] [address]- 8510 Oct, [facility] [place] [facility] [address] [id number] [place] [address]- 1974 Oct, [facility] [place] [facility] [address] [id number] [place] [address]- 0095 Oct, [facility] [place] [facility] [address] [id number] [place] [address]- 8066 Oct, [facility] [place] [facility] [address] [id number] [place] [address]- 4357 Oct, [facility] [address] [id number] [place] [address] Oct, [facility] [place] [facility] [address] [id number] [place] [address]- 6518 Sep, [facility] [place] [facility] [address] [id number] [place] [address]- 9080 30 Sep, 2013 [facility] [place] [facility] [address] [id number] [place] [address]- 1571 30 Sep, 2013 [facility] [address] [id number] [place] [address]- 2067 29 Sep, 2013 [facility] [place] [facility] [address] [id number] [place] [address]- 1391 Sep, [facility] [place] [facility] [address] [id number] [place] [address]- 0143 Sep, [facility] [place] [facility] [address] [id number] [place] [address]- 5474 Sep, [facility] [place] [facility] [address] [id number] [place] [address]- 8034 Sep, [facility] [place] [facility] [address] [id number] [place] [address]- 4356 Sep, [facility] [place] [facility] [address] [id number] [place] [address]- 1848 Sep, [facility] [place] [facility] [address] [id number] [place] [address]- 9553 Sep, [facility] [place] [facility] [address] [id number] [place] [address]- 3180 Sep, [facility] [place] [facility] [address] [id number] [place] [address]- 5176 16 Sep, 2013 [facility] [place] [facility] [address] [id number] [place] [address]- 9430 16 Sep, 2013 [facility] [place] [facility] [address] [id number] [place] [address]- 3115 Sep, [facility] [address] [id number] [place] [address]- 8713 Sep, [facility] [place] [facility] [address] [id number] [place] [address]- 9006 Sep, [facility] [address] [id number] [place] [address]- 3383 Sep, [facility] [place] [facility] [address] [id number] [place] [address]- 2242 Sep, [facility] [address] [id number] [place] [address]- 5847 Aug, [facility] [place] [facility] [address] [id number] [place] [address]- 0438 Aug, [facility] [address] [id number] [place] [address]- 4908 Aug, [facility] [place] [facility] [address] [id number] [place] [address]- 8263 Aug, [facility] [address] [id number] [place] [address]- 2196 Aug, [facility] [place] [facility] [address] [id number] [place] [address]- 8999 Aug, [facility] [address] [id number] [place] [address]- 4895 Aug, [facility] [place] [facility] [address] [id number] [address]- 6270 Aug, [facility] [place] [facility] [address] [id number] [address]- 2191 Aug, [facility] [place] [facility] [address] [id number] [address]- 5278 Aug, [facility] [place] [facility] [address] [id number] [address]- 5773 Aug, [facility] [place] [facility] [address] [id number] [place] [address]- 1305 Aug, [facility] [place] [facility] [address] [id number] [place] [address]- 4314 Aug, [facility] [place] [facility] [address] [id number] [place] [address]- 9631 Aug, [facility] [place] [facility] [address] [id number] [place] [address]- 6796 Aug, [facility] [place] [facility] [address] [id number] [place] [address]- 1434 Aug, [facility] [place] [facility] [address] [id number] [place] [address]- 6060 Aug, [facility] [place] [facility] [address] [id number] [place] [address]- 8067 Jul, [facility] [place] [facility] [address] [id number] [place] [address]- 9809 Jul, [facility] [place] [facility] [address] [id number] [place] [address]- 0777 Jul, [facility] [place] [facility] [address] [id number] [place] [address]- 4358 Jul, [facility] [place] [facility] [address] [id number] [place] [address]- 1430 Jul, [facility] [place] [facility] [address] [id number] [place] [address]- 1292 Jul, [facility] [place] [facility] [address] [id number] [place] [address]- 6794 Jul, [facility] [place] [facility] [address] [id number] [place] [address]- 5266 27 Jun, 2013 [facility] [place] [facility] [address] [id number] [place] [address]- 3583 20 Jun, 2013 [facility] [place] [facility] [address] [id number] [place] [address]- 9323 17 Jun, 2013 [facility] [address] [id number] [address]- 3161 Jun, [facility] [id number] [address]- 4447 Jun, [facility] [address] [id number] [address]- 2975 Jun, [facility] [id number] [address]- 8478 Jun, [facility] [id number] [address]- 7414 Jun, [facility] [id number] [address]- 5656 May, [facility] [id number] [address]- 7564 May, [facility] [id number] [address]- 5118 May, [facility] [id number] [address]- 9357 May, [facility] [id number] [address]- 6626 May, [facility] [address] [id number] [address]- 3866 May, [facility] [address] [id number] [address]- 5834 May, [facility] [address] [id number] [address]- 3748 May, IMMUNIZATIONS No Known Immunizations SOCIAL HISTORY Never Assessed REASON FOR VISIT Requests return call PLAN OF CARE VITAL SIGNS MEDICATIONS Unknown [...] in heel of feet Surgical History appendectomy [facility] 1995 Surgical History salpingectomy [facility] Surgical History bladder surgery-stretch [facility] 2003 Surgical History exploratory laparoscopy [facility] 1995 Surgical History amputation, toe (R great) Surgical History amputation, (R forefoot) 2015 Surgical History amputation, toe Left second 12/2016 Surgical History amputation, 4th left toe 02/2017 Hospitalization History Left foot cellulitis, left 2nd toe amputation-[facility] 12/23 Hospitalization History Surgery Hospitalizations
--- OUTSIDE RECORDS SUMMARY | 2018-08-22 08:57 | XMS REPORT ---
Author Author LUDIVINA STEPHANIE [facility] Address [address] [place] [address] Care Team Providers Care [place] Name Role Phone FARNAZ FLORENCEY Unavailable PROBLEMS Type Condition ICD9-CM Code BGC87-EV Code Onset Dates Condition Status SNOMED Code Problem Subclinical hypothyroidism E03.9 Active 82236874 Problem Hypertriglyceridemia E78.1 Active 319431977 Problem Type 2 diabetes mellitus with diabetic polyneuropathy E11.42 Active 929495686 Problem Type 2 diabetes mellitus with diabetic chronic 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 Active 971078430 Problem Other chronic pain G89.29 Active 42258120 Problem Type 2 diabetes mellitus with other skin complications E11.628 Active 92319117 Problem Pain in left foot M79.672 Active 90228385 Problem Irregular menstrual cycle N92.6 Active 69860975 Problem Pain in right foot M79.671 Active 02400465 Problem Tonsillolith J35.8 Active 9682539 Problem Chronic prescription opiate use Z79.891 Active 688399035 Problem Seasonal allergic rhinitis due to pollen J30.1 Active 23573558 Problem Asthma exacerbation, mild J45.901 Active 504511848 Problem Chronic kidney disease, stage III (moderate) N18.3 Active 018224477 Problem Chronic migraine G43.709 Active 75510895 Problem Moderate persistent asthma without complication J45.40 Active 186830642 Problem Intrinsic eczema L20.84 Active 32930754 Problem Severe episode of recurrent major depressive disorder, without psychotic features F33.2 Active 07932436 Problem Non-pressure chronic ulcer of right heel and midfoot limited to breakdown of skin L97.411 Active 030618465 Problem Ulcer of right heel L97.419 Active 663662361 Problem Obesity E66.9 Active 811488212 Problem Type 2 diabetes mellitus with foot ulcer E11.621 Active 17068217 Problem Essential hypertension I10 Active 34817154 Problem Anxiety disorder, unspecified F41.9 Active 014020306 Problem Type 2 diabetes mellitus with other specified complication E11.69 Active 366276970 Problem Status post amputation of toe of left foot Z89.422 Active 815426489 Problem DM neuro manif type II E11.49 Active 91957382 Problem History of amputation of hallux Z89.419 Active 215618176 ALLERGIES No Information ENCOUNTERS Encounter Location Date Diagnosis [facility] [address] [address]- [address]99 28 Jun, 2018 [facility] [address] 25060- 2176 26 Jun, 2018 [facility] [address] 99254- 0950 07 Jun, 2018 Type 2 diabetes mellitus with diabetic polyneuropathy E11.42 [place] [id number] 84127- 4716 27 May, 2018 [place] [address] 62963- 1599 May, [facility] [address] 56161- 4438 May, Nausea R11.0 [place] [address] 12753- 6746 May, Other chronic pain G89.29 and Nausea R11.0 [facility] [address] 57394- 5900 May, Left genital labial abscess N76.4 and BMI 60.0-69.9, adult Z68.44 [place] [address] 87668- 6062 May, [place] [address] 37311- 6554 Apr, [place] [address] 73986- 2155 Apr, Chronic migraine G43.709 [place] [address] 26846- 9368 Apr, [facility] [address] [place] [id number] [place] [address] 57426- 8923 Mar, Moderate persistent asthma without complication J45.40 [facility] [address] [place] [id number] [place] [address] 15904- 2896 Mar, Moderate persistent asthma without complication J45.40 [facility] [address] [place] [id number] [place] [address] 63402- 8386 Mar, [facility] [address] [place] [id number] [place] [address] 14102- 1603 February, Chronic migraine G43.709 [facility] [address] [place] [id number] [place] [address] 79764- 2509 February, Chronic migraine G43.709 [facility] [address] [place] [id number] [place] [address] 22937- 8506 February, [facility] [address] [place] [id number] [place] [address] 16749- 4901 February, [facility] [address] [place] [id number] [place] [address] 62940- 3758 February, Type 2 diabetes mellitus with diabetic polyneuropathy E11.42 ; Moderate persistent asthma without complication J45.40 ; Type 2 diabetes mellitus with foot ulcer E11.621 ; Non-pressure chronic ulcer of right heel and midfoot limited to breakdown of skin L97.411 ; Chronic migraine G43.709 and BMI 60.0-69.9, adult Z68.44 [facility] [address] [place] [address] 41898 -4759 Jan, Asthma exacerbation, mild J45.901 ; Seasonal allergic rhinitis due to pollen J30.1 and BMI 60.0-69.9, adult Z68.44 [facility] [address] [address]- 1802 Jan, [facility] [address] [place] [id number] [place] [address] 48416- 6357 Jan, Other chronic pain G89.29 [place] [address] [place] [id number] [place] [address] 97779- 5116 30 Dec, 2017 Type 2 diabetes mellitus with diabetic polyneuropathy E11.42 [place] [address] [place] [id number] [place] [address] 53561- 7956 19 Dec, 2017 Type 2 diabetes mellitus with diabetic polyneuropathy E11.42 [place] [address] 54251- 3050 15 Dec, 2017 [place] [address] [place] [id number] [place] [address] 65895- 0294 14 Dec, 2017 [place] [address] 61497- 3478 13 Dec, 2017 Chronic kidney disease, stage III (moderate) N18.3 [facility] [address] 43566 -1941 09 Dec, 2017 Nausea R11.0 and Diarrhea, unspecified type R19.7 [place] [address] [place] [id number] [place] [address] 85185- 6602 07 Dec, 2017 Chronic kidney disease, stage III (moderate) N18.3 and Type 2 diabetes mellitus with diabetic polyneuropathy E11.42 [place] [address] [place] [id number] [place] [address] 86450- 6357 Dec, [place] [address] 68263- 1757 Nov, Ulcer of right heel L97.419 and Type 2 diabetes mellitus with diabetic polyneuropathy E11.42 [facility] [address] [id number] Nov, Dental examination Z01.20 [place] [address] [place] [id number] [place] [address] 33253- 9608 Nov, Open wound of right foot, initial encounter S91.301A [facility] [address] [place] [id number] [place] [address] 78012 -7258 Nov, Open wound of right foot, initial encounter S91.301A ; Non- intractable vomiting with nausea, unspecified vomiting type R11.2 and BMI 60.0- 69.9, adult Z68.44 [place] [address] [place] [id number] [place] [address] 19037- 7296 Nov, [place] [address] 08154- 3922 Nov, Other chronic pain G89.29 [place] [address] 26804- 6932 Oct, Cellulitis of right lower limb L03.115 [place] [address] 18405- 3453 Oct, [place] [address] 54373- 6927 Oct, [place] [address] [place] [id number] [place] [address] 48832- 4672 Oct, Cat scratch W55.03XA ; Cellulitis of right lower limb L03.115 ; Acute nasopharyngitis J00 ; BMI 60.0-69.9, adult Z68.44 and Cough R05 [place] [address] [place] [id number] [place] [address] 65269- 5036 Oct, Cat scratch W55.03XA ; Cutaneous abscess of right lower extremity L02.415 and Cellulitis of right lower limb L03.115 [place] [address] [place] [id number] [place] [address] 75556- 8014 Oct, Type 2 diabetes mellitus with diabetic polyneuropathy E11.42 [place] [address] 80097- 2537 Oct, Other chronic pain G89.29 [place] [address] 59844- 4949 Aug, [place] [address] [place] [id number] [place] [address] 93293- 2191 Jul, Other chronic pain G89.29 [place] [address] 61219- 8208 Jul, [place] [address] 36207- 9230 Jul, Chronic kidney disease, stage III (moderate) N18.3 [place] [address] 60435- 9102 04 Jul, 2017 Type 2 diabetes mellitus with diabetic polyneuropathy E11.42 ; Essential hypertension I10 ; Irregular menstrual cycle N92.6 ; Hypertriglyceridemia E78.1 ; Anxiety disorder, unspecified F41.9 ; Severe episode of recurrent major depressive disorder, without psychotic features F33.2 ; Tonsillolith J35.8 ; Intrinsic eczema L20.84 ; Subclinical hypothyroidism E03.9 ; Viral pharyngitis J02.9 and Encounter for immunization Z23 [place] [address] [place] [id number] [place] [address] 87402- 1447 13 Jun, 2017 Essential hypertension I10 [place] [id number] [place] [address] 68327- 2086 08 Jun, 2017 [place] [address] [place] [id number] [place] [address] 56959- 7921 Jun, [place] [address] [place] [id number] [place] [address] 02007- 0546 May, Moderate persistent asthma without complication J45.40 [place] [address] 88309- 0568 May, Pain in right foot M79.671 ; Pain in left foot M79.672 ; Other chronic pain G89.29 and Chronic prescription opiate use Z79.891 [place] [address] [place] [id number] [place] [address] 74870- 7340 May, [place] [address] [place] [id number] [place] [address] 26212- 5921 May, [place] [address] [place] [id number] [place] [address] 67836- 2173 Apr, [place] [address] [place] [id number] [place] [address] 80947- 0415 Apr, Chronic migraine G43.709 [place] [address] 38758- 7950 Apr, Essential hypertension I10 ; Hypertriglyceridemia E78.1 and Chronic migraine G43.709 [place] [address] [place] [id number] [place] [address] 21450- 5084 Apr, [place] [address] [place] [id number] [place] [address] 23840- 1241 Apr, Sore throat J02.9 [place] [id number] [place] [address] 65411- 7743 Apr, [place] [address] [place] [id number] [place] [address] 90944- 0390 Mar, Strep pharyngitis J02.0 and Non-intractable vomiting with nausea, unspecified vomiting type R11.2 [place] [id number] [place] [address] 39909- 0165 Mar, [place] [address] [place] [id number] [place] [address] 46016- 1144 Mar, [place] [address] [place] [id number] [place] [address] 60632- 8866 Mar, [place] [address] [place] [id number] [place] [address] 54492- 2171 Mar, Type 2 diabetes mellitus with diabetic polyneuropathy E11.42 ; Moderate persistent asthma without complication J45.40 ; Status post amputation of toe of left foot Z89.422 ; Acute seasonal allergic rhinitis, unspecified trigger J30.2 and Left shoulder pain, unspecified chronicity M25.512 [place] [id number] [address]- 5823 Mar, [place] [address] [place] [id number] [place] [address] 87161- 6871 February, Pre-op evaluation Z01.818 ; Type 2 diabetes mellitus with diabetic polyneuropathy E11.42 and Type 2 diabetes mellitus with foot ulcer E11.621 [place] [address] [place] [id number] [place] [address] 19058- 7236 February, [place] [address] [place] [id number] [place] [address] 96523- 6842 February, [place] [address] [place] [id number] [place] [address] 06162- 4659 February, Toe infection L08.9 and Type 2 diabetes mellitus with other specified complication E11.69 [place] [address] [place] [id number] [place] [address] 39451- 1403 February, [place] [address] [place] [id number] [place] [address] 28470- 1887 Jan, Type 2 diabetes mellitus with diabetic polyneuropathy E11.42 [place] [address] [place] [id number] [place] [address] 30319- 9100 Jan, [place] [address] [place] [id number] [place] [address] 89014- 7076 Jan, Right upper quadrant pain R10.11 and Intractable vomiting with nausea, unspecified vomiting type R11.2 [place] [id number] [place] [address] 70208- 0334 Jan, Hypertriglyceridemia E78.1 and Essential hypertension I10 [place] [address] [place] [id number] [place] [address] 92520- 2090 07 Jan, 2017 Essential hypertension I10 ; Type 2 diabetes mellitus with diabetic polyneuropathy E11.42 and Hypertriglyceridemia E78.1 [place] [address] [place] [id number] [place] [address] 90181- 6035 Dec, Type 2 diabetes mellitus with diabetic polyneuropathy E11.42 [facility] [address] [address]- 6668 Dec, Hypertriglyceridemia E78.1 ; Essential hypertension I10 ; Type 2 diabetes mellitus with diabetic polyneuropathy E11.42 ; Anxiety disorder , unspecified F41.9 and Moderate persistent asthma without complication J45.40 [facility] [address] [place] [id number] [place] [address] 89075- 7792 Dec, Type 2 diabetes mellitus with diabetic polyneuropathy E11.42 [facility] [address] [place] [id number] [place] [address] [id number] Dec, [facility] [address] [place] [id number] [place] [address] 06700- 7896 Nov, [facility] [address] [place] [id number] [place] [address] 12616- 6538 Nov, [facility] [address] [place] [id number] [place] [address] 65773- 8187 Nov, [facility] [address] [place] [id number] [place] [address] 18254- 7143 Nov, Toe infection L08.9 [facility] [address] [place] [id number] [place] [address] 86066- 1726 Nov, [facility] [address] [place] [address] 96500- 6402 Oct, History of amputation of hallux Z89.419 [facility] [address] [place] [address] 11428- 5188 Oct, Type 2 diabetes mellitus with diabetic polyneuropathy E11.42 [facility] [address] [place] [id number] [place] [address] 29173- 2618 Oct, Type 2 diabetes mellitus with diabetic polyneuropathy E11.42 [facility] [address] [address]- 9202 Oct, Acute osteomyelitis of left foot M86.172 ; Pre-op exam Z01.818 and Type 2 diabetes mellitus with diabetic polyneuropathy E11.42 [facility] [address] [place] [id number] [place] [address] 96487- 0598 Oct, Foot ulcer, left, with unspecified severity L97.529 ; Acute osteomyelitis of left foot M86.172 and Type 2 diabetes mellitus with diabetic polyneuropathy E11.42 [facility] [address] [place] [id number] [place] [address] 28502- 8222 Sep, [facility] [address] [place] [id number] [place] [address] 55865- 7465 Sep, Intractable vomiting with nausea, unspecified vomiting type R11.2 and Right upper quadrant pain R10.11 [facility] [address] [place] [id number] [place] [address] 21046- 0394 Aug, [place] [address] [place] [id number] [place] [address] 56312- 8924 Jul, [facility] [address] [place] [id number] [place] [address] 19651- 2701 Jul, Preop examination Z01.818 [facility] [address] [place] [id number] [place] [address] 64029- 1697 Jul, [facility] [address] [place] [id number] [place] [address] 29065- 4049 Jul, [facility] [address] [place] [id number] [place] [address] 22866- 8128 Jul, Chronic osteomyelitis of left foot M86.672 and Ulcer of left foot, with unspecified severity L97.529 [place] [address] [place] [id number] [place] [address] 73533- 4249 Jul, Non-pressure chronic ulcer of other part of left foot with unspecified severity L97.529 [facility] [address] [place] [id number] [place] [address] 08608- 6929 Jul, [facility] [address] [place] [address] [address]- 5882 Jul, [facility] [address] [place] [id number] [place] [address] 88826- 4299 28 Jun, 2016 [facility] [address] [place] [id number] [place] [address] 13124- 3394 Jun, [facility] [address] [place] [id number] [place] [address] 21518- 6490 Jun, [facility] [address] [place] [id number] [place] [address] 01602- 8099 Jun, Right upper quadrant pain R10.11 [facility] [address] [place] [id number] [place] [address] 34904- 7282 Jun, [facility] [address] [place] [id number] [place] [address] 87095- 0895 Jun, Intractable vomiting with nausea, unspecified vomiting type R11.2 [facility] [address] [place] [id number] [place] [address] 88042- 8286 13 Jun, 2016 Right upper quadrant pain R10.11 ; Migraine with aura and with status migrainosus, not intractable G43.101 and Intractable vomiting with nausea, unspecified vomiting type R11.2 [facility] [address] [place] [address] 82479- 9045 12 Jun, 2016 [facility] [address] [place] [id number] [place] [address] 11009- 8348 Jun, Gastroenteritis K52.9 [facility] [address] [place] [address] 24128- 9089 May, [facility] [address] [place] [id number] [place] [address] 96006- 7208 May, Hypertriglyceridemia E78.1 ; Essential hypertension I10 ; Type 2 diabetes mellitus with diabetic polyneuropathy E11.42 ; Moderate persistent asthma without complication J45.40 ; Type 2 diabetes mellitus with foot ulcer E11.621 ; Other chronic pain G89.29 ; Pain in right leg M79.604 ; Pain of left leg M79.605 ; Rash and nonspecific skin eruption R21 and Anxiety disorder, unspecified F41.9 [place] [address] [place] [id number] [place] [address] 78155- 7150 May, Essential hypertension I10 ; Hypertriglyceridemia E78.1 ; Upper respiratory infection J06.9 ; Subclinical hypothyroidism E03.9 and Type 2 diabetes mellitus with diabetic polyneuropathy E11.42 [place] [address] 51706- 3327 Apr, Hypertriglyceridemia E78.1 ; Subclinical hypothyroidism E03.9 ; Essential hypertension I10 and Type 2 diabetes mellitus with diabetic polyneuropathy E11.42 [place] [address] 07256- 5522 Mar, [place] [address] 29536- 5864 Mar, Ulcer of right heel L97.419 [place] [address] [place] [id number] [place] [address] 47157- 2867 Mar, [place] [address] 71509- 5340 Mar, [place] [address] [place] [id number] [place] [address] 60143- 9686 February, [place] [address] [place] [id number] [place] [address] 63364- 9158 February, Ulcer of right heel L97.419 and DM neuro manif type II E11.49 [facility] [address] [place] [id number] [place] [address] 06386- 4582 Jan, [facility] [address] 85095- 7693 Jan, Ulcer of right heel L97.419 ; Type 2 diabetes mellitus with foot ulcer E11.621 and Non-pressure chronic ulcer of other part of left foot with unspecified severity L97.529 [place] [address] [place] [address]- 9169 Jan, [facility] [address] [place] [id number] [place] [address] 15812- 9266 Jan, [facility] [address] [place] [id number] [place] [address] 54267- 0009 Jan, Infection of toenail L03.039 [facility] [address] [place] [id number] [place] [address] 26170- 3692 14 Jan, 2016 Blister of toe of left foot, initial encounter S90.425A and Type 2 diabetes mellitus with diabetic polyneuropathy E11.42 [facility] [address] [place] [id number] [place] [address] 82774- 2006 Jan, [facility] [address] [place] [address] 04122 -6797 Jan, Sore throat J02.9 and Strep pharyngitis J02.0 [facility] [address] [place] [id number] [place] [address] 78418- 8773 Dec, Type 2 diabetes mellitus with diabetic polyneuropathy E11.42 ; Upper respiratory infection J06.9 ; Cough R05 and Asthma exacerbation J45.901 [facility] [address] [place] [address] 82138- 0101 Oct, [facility] [address] [place] [address] 15868- 9911 Oct, [facility] [address] [place] [id number] [place] [address] 82651- 0770 Oct, [facility] [address] [place] [address] 78078- 9905 Oct, [facility] [address] [place] [id number] [place] [address] 36876- 0725 Sep, [facility] [address] [place] [address] 14188- 3615 Aug, Anxiety disorder, unspecified F41.9 and Obesity E66.9 [facility] [address] [place] [id number] [place] [address] 72788- 6244 Aug, Moderate persistent asthma without complication J45.40 [facility] [address] [place] [id number] [place] [address] 28295- 1690 Aug, Anxiety disorder, unspecified F41.9 [place] [address] 34569- 0268 Aug, Chronic migraine G43.709 ; Encounter for immunization Z23 ; Hypertriglyceridemia E78.1 ; Type 2 diabetes mellitus with diabetic polyneuropathy E11.42 ; Moderate persistent asthma without complication J45.40 and Morbid obesity E66.01 [place] [address] [place] [id number] [place] [address] 41798- 0395 Jul, [facility] [address] [place] [id number] [place] [address] 51497- 1200 Jul, [facility] [address] [place] [id number] [place] [address] 80633- 1304 Jul, [facility] [address] [place] [id number] [place] [address] 37345- 8982 Jul, Subclinical hypothyroidism E03.9 [facility] [address] [place] [id number] [place] [address] 03538- 7126 Jun, Essential hypertension, benign 401.1 ; Diabetic ulcer of lower extremity 250.80 ; Asthma 493.90 ; Diabetes mellitus type II, uncontrolled 250.02 and Hyperlipidemia associated with type 2 diabetes mellitus 250.80 [facility] [address] [place] [id number] [place] [address] 60137- 6503 18 Jun, 2015 [place] [address] 17340- 8106 Jun, [facility] [address] [place] [id number] [place] [address] 10477- 0360 May, [facility] [address] 77303- 0309 Apr, [facility] [address] [address]- 9525 Apr, Viral upper respiratory infection 465.9 and Asthma 493.90 [facility] [address] [address]- 2806 Mar, Abnormal ankle brachial index 796.4 [facility] [address] [place] [id number] [place] [address] 434063- 7824 February, [facility] [id number] [place] [address] 040763- 7545 February, Essential hypertension, benign 401.1 [facility] [id number] [place] [address] 672173- 1941 February, Diabetic peripheral neuropathy 250.60 ; Ulcer of heel and midfoot 707.14 and Decreased pedal pulses 785.9 [facility] [id number] [place] [address] 08707- 5466 February, [facility] [id number] [place] [address] 623581- 9239 February, [facility] [id number] [place] [address] 34020- 6335 Jan, [facility] [address] [address] 4898 Jan, [facility] [id number] [place] [address] 57625- 2126 Dec, [facility] [id number] [place] [address] 30617- 5153 Dec, [facility] [id number] [place] [address] 92315- 1806 Nov, [facility] [address] [address]- 4456 Nov, [facility] [id number] [place] [address] 24976- 6314 Nov, [facility] [place] [facility] [address] [id number] [place] [address]- 9976 Nov, [facility] [place] [facility] [address] [id number] [place] [address]- 2206 Nov, [facility] [place] [facility] [address] [facility] [id number] [place] [address]- 9816 Nov, [facility] [place] [facility] [address] [id number] [place] [address]- 0888 Nov, 2014 [facility] [place] [facility] [address] [id number] [place] [address]- 3310 Nov, [facility] [place] [facility] [address] [facility] [id number] [place] [address]- 1539 Nov, [facility] [place] [facility] [address] [id number] [place] [address]- 9367 Oct, [facility] [place] [facility] [address] [facility] [id number] [place] [address]- 6822 Oct, [facility] [place] [facility] [address] [facility] [id number] [place] [address]- 3668 Oct, [facility] [place] [facility] [address] [facility] [id number] [place] [address]- 7574 Oct, [facility] [place] [facility] [address] [facility] [id number] [place] [address]- 9212 Oct, [facility] [place] [facility] [address] [facility] [id number] [place] [address]- 7485 Oct, [facility] [place] [facility] [address] [facility] [id number] [place] [address]- 2893 Oct, [facility] [place] [facility] [address] [facility] [id number] [place] [address]- 1082 Oct, [facility] [place] [facility] [address] [facility] [id number] [place] [address]- 9455 Oct, [facility] [place] [facility] [address] [id number] [place] [address]- 0856 Oct, [facility] [place] [facility] [address] [id number] [place] [address]- 6019 Oct, [facility] [place] [facility] [address] [id number] [place] [address]- 1726 Oct, [facility] [place] [facility] [address] [id number] [place] [address]- 5053 Oct, [facility] [place] [facility] [address] [id number] [place] [address]- 5573 Sep, [facility] [place] [facility] [address] [id number] [place] [address]- 0528 Sep, [facility] [place] [facility] [address] [id number] [place] [address]- 7437 Sep, [facility] [place] [facility] [address] [id number] [place] [address]- 1326 Sep, [facility] [place] [facility] [address] [id number] [place] [address]- 8469 Sep, [facility] [place] [facility] [address] [id number] [place] [address]- 2559 Sep, [facility] [place] [facility] [address] [id number] [place] [address]- 1607 Sep, [facility] [place] [facility] [address] [id number] [place] [address]- 4603 Sep, [facility] [place] [facility] [address] [id number] [place] [address]- 5006 Sep, [facility] [place] [facility] [address] [id number] [place] [address]- 3486 Sep, [facility] [place] [facility] [address] [id number] [place] [address]- 0506 Sep, [facility] [place] [facility] [address] [id number] [place] [address]- 1629 Sep, [facility] [place] [facility] [address] [id number] [place] 7120 Sep, [facility] [place] [facility] [address] [id number] [place] [address]- 9988 Sep, [facility] [place] [facility] [address] [id number] [place] 3796 Sep, [facility] [place] [facility] [address] [id number] [place] [address]- 7981 Sep, [facility] [place] [facility] [address] [id number] [place] [address]- 8328 Aug, [facility] [place] [facility] [address] [id number] [place] [address]- 5463 Aug, [facility] [place] [facility] [address] [id number] [place] [address]- 2345 Aug, [facility] [place] [facility] [address] [id number] [place] [address]- 8009 Aug, [facility] [place] [facility] [address] [id number] [place] [address]- 7901 Aug, [facility] [place] [facility] [address] [id number] [place] [address]- 1162 Aug, [facility] [place] [facility] [id number] [address]- 9508 Aug, [facility] [place] [facility] [id number] [address]- 3423 Aug, [facility] [place] [facility] [address] [id number] [place] [address]- 4857 Jul, [facility] [place] [facility] [address] [id number] [place] [address]- 9806 Jul, [facility] [place] [facility] [address] [id number] [place] [address]- 7727 Jul, [facility] [place] [facility] [address] [id number] [place] [address]- 7988 15 Jul, 2014 [facility] [place] [facility] [address] [id number] [place] [address]- 8812 15 Jul, 2014 [facility] [place] [facility] [address] [id number] [place] [address]- 9807 Jun, [facility] [place] [facility] [address] [id number] [place] [address]- 6698 Jun, [facility] [place] [facility] [address] [id number] [place] [address]- 9841 Jun, [facility] [place] [facility] [address] [id number] [place] [address]- 8499 Jun, [facility] [place] [facility] [address] [id number] [place] [address]- 2665 Jun, [facility] [place] [facility] [address] [id number] [place] [address]- 3957 May, [facility] [place] [facility] [address] [id number] [place] [address]- 9821 May, [facility] [place] [facility] [address] [id number] [place] [address]- 8182 Apr, [facility] [place] [facility] [address] [id number] [place] [address]- 0163 Apr, [facility] [place] [facility] [address] [id number] [place] [address]- 2552 Apr, [facility] [place] [facility] [address] [id number] [place] [address]- 1362 Apr, [facility] [place] [facility] [address] [id number] [place] [address]- 0945 Apr, [facility] [place] [facility] [address] [id number] [place] [address]- 3600 Apr, [facility] [place] [facility] [address] [id number] [place] [address]- 0255 Mar, [facility] [place] [facility] [address] [id number] [place] [address]- 5593 Mar, [facility] [place] [facility] [address] [id number] [place] [address]- 9975 Mar, [facility] [place] [facility] [address] [id number] [place] [address]- 1741 Mar, [facility] [place] [facility] [address] [id number] [place] [address]- 4735 Mar, [facility] [place] [facility] [address] [id number] [place] [address]- 5200 Mar, [facility] [place] [facility] [address] [id number] [place] [address]- 5375 Mar, [facility] [place] [facility] [address] [id number] [place] [address]- 6804 Mar, [facility] [place] [facility] [address] [id number] [place] [address]- 2953 Mar, [facility] [place] [facility] [address] [id number] [place] [address]- 6108 Mar, [facility] [place] [facility] [address] [id number] [place] [address]- 3766 Mar, [facility] [place] [facility] [address] [id number] [place] [address]- 6520 Mar, [facility] [place] [facility] [address] [id number] [place] [address]- 1645 Mar, [facility] [place] [facility] [address] [id number] [place] [address]- 8873 Mar, [facility] [place] [facility] [address] [id number] [place] [address]- 0684 Mar, [facility] [place] [facility] [address] [id number] [place] [address]- 0985 07 Mar, 2014 [facility] [place] [facility] [address] [id number] [place] [address]- 3629 February, [facility] [place] [facility] [address] [id number] [place] [address]- 2376 February, [facility] [place] [facility] [address] [id number] [place] [address]- 1966 February, [facility] [place] [facility] [address] [id number] [place] [address]- 3626 February, [facility] [place] [facility] [address] [id number] [place] [address]- 7239 February, [facility] [place] [facility] [address] [id number] [place] [address]- 5839 February, [facility] [place] [facility] [address] [id number] [place] [address]- 3811 February, [facility] [place] [facility] [address] [id number] [place] [address]- 7321 February, [facility] [place] [facility] [address] [id number] [place] [address]- 5876 Jan, [facility] [place] [facility] [address] [id number] [place] [address]- 3934 Jan, [facility] [place] [facility] [address] [id number] [place] [address]- 2758 Dec, [facility] [place] [facility] [address] [id number] [place] [address]- 0769 Dec, [facility] [place] [facility] [address] [id number] [place] [address]- 3164 Dec, [facility] [place] [facility] [address] [id number] [place] [address]- 5490 Dec, [facility] [place] [facility] [address] [id number] [place] [address]- 2253 Dec, [facility] [place] [facility] [address] [id number] [place] [address]- 4679 Dec, [facility] [place] [facility] [address] [id number] [place] [address]- 4512 19 Dec, 2013 [facility] [address] [id number] [place] [address]- 9990 19 Dec, 2013 [facility] [place] [facility] [address] [id number] [place] [address]- 5876 17 Dec, 2013 [facility] [address] [id number] [place] [address]- 7234 17 Dec, 2013 [facility] [place] [facility] [address] [id number] [place] [address]- 4851 14 Dec, 2013 [facility] [address] [id number] [place] [address]- 7083 14 Dec, 2013 [facility] [address] [id number] [place] [address]- 5591 Dec, [facility] [place] [facility] [address] [id number] [place] [address]- 4148 Dec, [facility] [address] [id number] [place] [address]- 6910 Nov, [facility] [place] [facility] [address] [id number] [place] [address]- 5188 Nov, [facility] [address] [id number] [place] [address]- 3178 Oct, [facility] [place] [facility] [address] [id number] [place] [address]- 1274 Oct, [facility] [place] [facility] [address] [id number] [place] [address]- 4738 Oct, [facility] [place] [facility] [address] [id number] [place] [address]- 7631 Oct, [facility] [place] [facility] [address] [id number] [place] [address]- 1506 Oct, [facility] [place] [facility] [address] [id number] [place] [address]- 9920 Oct, [facility] [address] [id number] [place] 3333 Oct, [facility] [place] [facility] [address] [id number] [place] [address]- 3277 Sep, [facility] [place] [facility] [address] [id number] [place] [address]- 1520 30 Sep, 2013 [facility] [place] [facility] [address] [id number] [place] [address]- 7163 30 Sep, 2013 [facility] [address] [id number] [place] [address]- 2073 29 Sep, 2013 [facility] [place] [facility] [address] [id number] [place] [address]- 7652 Sep, [facility] [place] [facility] [address] [id number] [place] [address]- 3453 Sep, [facility] [place] [facility] [address] [id number] [place] [address]- 3149 Sep, [facility] [place] [facility] [address] [id number] [place] [address]- 6828 Sep, [facility] [place] [facility] [address] [id number] [place] [address]- 3543 Sep, [facility] [place] [facility] [address] [id number] [place] [address]- 9253 Sep, [facility] [place] [facility] [address] [id number] [place] [address]- 3448 Sep, [facility] [place] [facility] [address] [id number] [place] [address]- 3932 Sep, [facility] [place] [facility] [address] [id number] [place] [address]- 5566 16 Sep, 2013 [facility] [place] [facility] [address] [id number] [place] [address]- 6315 16 Sep, 2013 [facility] [place] [facility] [address] [id number] [place] [address]- 2307 Sep, [facility] [address] [id number] [place] [address]- 3419 Sep, [facility] [place] [facility] [address] [id number] [place] [address]- 6544 Sep, [facility] [address] [id number] [place] [address]- 1480 Sep, [facility] [place] [facility] [address] [id number] [place] [address]- 2957 Sep, [facility] [address] [id number] [place] [address]- 8459 Aug, [facility] [place] [facility] [address] [id number] [place] [address]- 0956 Aug, [facility] [address] [id number] [place] [address]- 8484 Aug, [facility] [place] [facility] [address] [id number] [place] [address]- 2872 Aug, [facility] [address] [id number] [place] [address]- 9196 Aug, [facility] [place] [facility] [address] [id number] [place] [address]- 0979 Aug, [facility] [address] [id number] [place] [address]- 3989 Aug, [facility] [place] [facility] [address] [id number] [address]- 2890 Aug, [facility] [place] [facility] [address] [id number] [address]- 0961 Aug, [facility] [place] [facility] [address] [id number] [address]- 6385 Aug, [facility] [place] [facility] [address] [id number] [address]- 7377 Aug, [facility] [place] [facility] [address] [id number] [place] [address]- 0660 Aug, [facility] [place] [facility] [address] [id number] [place] [address]- 6150 Aug, [facility] [place] [facility] [address] [id number] [place] [address]- 8985 Aug, [facility] [place] [facility] [address] [id number] [place] [address]- 3798 Aug, [facility] [place] [facility] [address] [id number] [place] [address]- 2731 Aug, [facility] [place] [facility] [address] [id number] [place] [address]- 9854 Aug, [facility] [place] [facility] [address] [id number] [place] [address]- 3630 Jul, [facility] [place] [facility] [address] [id number] [place] [address]- 1799 Jul, [facility] [place] [facility] [address] [id number] [place] [address]- 8474 Jul, [facility] [place] [facility] [address] [id number] [place] [address]- 8574 Jul, [facility] [place] [facility] [address] [id number] [place] [address]- 7656 Jul, [facility] [place] [facility] [address] [id number] [place] [address]- 2351 Jul, [facility] [place] [facility] [address] [id number] [place] [address]- 5829 Jul, [facility] [place] [facility] [address] [id number] [place] [address]- 0386 27 Jun, 2013 [facility] [place] [facility] [address] [id number] [place] [address]- 1219 20 Jun, 2013 [facility] [place] [facility] [address] [id number] [place] [address]- 8587 17 Jun, 2013 [facility] [id number] [address]- 6660 Jun, [facility] [address] [address]- 4260 Jun, [facility] [address] [address]- 8116 Jun, [facility] [address] [address]- 4933 Jun, [facility] [address] [address]- 1012 Jun, [facility] [id number] [place] [address] 06345- 2056 May, [facility] [address] [address]- 4048 May, [facility] [address] [address]- 5223 May, [facility] [address] [address]- 5512 May, [facility] [address] [address]- 3098 May, [facility] [address] [address]- 0475 May, [facility] [address] [address]- 8354 May, [facility] [id number] [address]- 8391 May, IMMUNIZATIONS No Known Immunizations SOCIAL HISTORY Never Assessed REASON FOR VISIT Refill Request PLAN OF CARE VITAL SIGNS MEDICATIONS Medication Instructions Dosage Frequency Start Date End Date Duration Status Sumatriptan Succinate 4 MG/0.5ML Subcutaneous no more than twice a day 0.5 ml as needed Apr, Active RESULTS No Results PROCEDURES No Known procedures INSTRUCTIONS MEDICATIONS ADMINISTERED No Known Medications MEDICAL (GENERAL) HISTORY Type Description Date Medical History type I diabetes Medical History hypertension Medical History hyperlipidemia Medical History asthma Medical History migraine headaches Medical History allergic rhinitis Medical History neuropathy Medical History Chronic osteomyelitis, site unspecified Medical History 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 Surgical History appendectomy [facility] 1995 Surgical History salpingectomy [facility] Surgical History bladder surgery-stretch [facility] 2003 Surgical History exploratory laparoscopy [facility] 1995 Surgical History amputation, toe (R great) Surgical History amputation, (R forefoot) 2014 Surgical History amputation, toe Left second 12/2016 Surgical History amputation, 4th left toe 02/2017 Hospitalization History Left foot cellulitis, left 2nd toe amputation-[facility] 12/23 Hospitalization History Surgery Hospitalizations
--- OUTSIDE RECORDS SUMMARY | 2018-08-22 08:58 | XMS REPORT ---
Author Author LUDIVINA STEPHANIE [facility] Address [address] [place] [address] Care Team Providers Care Patch Sander Name Role Phone DEE DEE FLORENCEHANY Unavailable PROBLEMS Type Condition ICD9-CM Code ZOO67-RE Code Onset Dates Condition Status SNOMED Code Problem Subclinical hypothyroidism E03.9 Active 41708597 Problem Hypertriglyceridemia E78.1 Active 434198356 Problem Type 2 diabetes mellitus with diabetic polyneuropathy E11.42 Active 116683800 Problem Type 2 diabetes mellitus with diabetic chronic 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 Active 594146418 Problem Other chronic pain G89.29 Active 75944586 Problem Type 2 diabetes mellitus with other skin complications E11.628 Active 84209379 Problem Pain in left foot M79.672 Active 53420885 Problem Irregular menstrual cycle N92.6 Active 25220125 Problem Pain in right foot M79.671 Active 40473779 Problem Tonsillolith J35.8 Active 2652372 Problem Chronic prescription opiate use Z79.891 Active 226117183 Problem Seasonal allergic rhinitis due to pollen J30.1 Active 98164469 Problem Asthma exacerbation, mild J45.901 Active 416925049 Problem Chronic kidney disease, stage III (moderate) N18.3 Active 611578377 Problem Chronic migraine G43.709 Active 63607524 Problem Moderate persistent asthma without complication J45.40 Active 866959404 Problem Intrinsic eczema L20.84 Active 44849883 Problem Severe episode of recurrent major depressive disorder, without psychotic features F33.2 Active 88040097 Problem Non-pressure chronic ulcer of right heel and midfoot limited to breakdown of skin L97.411 Active 598224123 Problem Ulcer of right heel L97.419 Active 846441991 Problem Obesity E66.9 Active 219061761 Problem Type 2 diabetes mellitus with foot ulcer E11.621 Active 55833750 Problem Essential hypertension I10 Active 11800262 Problem Anxiety disorder, unspecified F41.9 Active 347449405 Problem Type 2 diabetes mellitus with other specified complication E11.69 Active 459963939 Problem Status post amputation of toe of left foot Z89.422 Active 128040762 Problem DM neuro manif type II E11.49 Active 52069955 Problem History of amputation of hallux Z89.419 Active 987092785 ALLERGIES No Information ENCOUNTERS Encounter Location Date Diagnosis [place] [id number] [address] 28 Jun, 2018 [facility] [address] [address]- [address] 26 Jun, 2018 [place] [address] 69190- 5567 May, [place] [address] 64531- 3147 May, Nausea R11.0 [place] [address] 22482- 2254 May, Other chronic pain G89.29 and Nausea R11.0 [place] [address] 08302- 7662 May, Left genital labial abscess N76.4 and BMI 60.0-69.9, adult Z68.44 [place] [address] 26867- 1761 May, [place] [address] 96934- 6246 Apr, [place] [address] 70316- 6047 Apr, Chronic migraine G43.709 [place] [address] 72045- 4341 Apr, [place] [address] 62447- 2452 Mar, Moderate persistent asthma without complication J45.40 [place] [address] 83671- 4618 Mar, Moderate persistent asthma without complication J45.40 [facility] [address] [address] Mar, [facility] [address] [place] [address] 58506- 3741 February, Chronic migraine G43.709 [facility] [address] [place] [address] 88871- 2111 February, Chronic migraine G43.709 [facility] [address] [place] [address] 45859- 8266 February, [facility] [id number] [place] [address] 61992- 7870 February, [facility] [id number] [place] [address] 98185- 5855 February, Type 2 diabetes mellitus with diabetic polyneuropathy E11.42 ; Moderate persistent asthma without complication J45.40 ; Type 2 diabetes mellitus with foot ulcer E11.621 ; Non-pressure chronic ulcer of right heel and midfoot limited to breakdown of skin L97.411 ; Chronic migraine G43.709 and BMI 60.0-69.9, adult Z68.44 [facility] [address] [address] Jan, Asthma exacerbation, mild J45.901 ; Seasonal allergic rhinitis due to pollen J30.1 and BMI 60.0-69.9, adult Z68.44 [facility] [address] [address] 95[address] Jan, [facility] [address] [place] [id number] [place] [address] 57725- 4050 Jan, Other chronic pain G89.29 [facility] [address] [place] [address] 45559- 3292 Dec, Type 2 diabetes mellitus with diabetic polyneuropathy E11.42 [facility] [address] [place] [address] [place] [address] 4589 19 Dec, 2017 Type 2 diabetes mellitus with diabetic polyneuropathy E11.42 [place] [address] 02873- 3815 15 Dec, 2017 [place] [address] 31492- 2334 14 Dec, 2017 [place] [address] 06503- 6179 13 Dec, 2017 Chronic kidney disease, stage III (moderate) N18.3 [facility] [place] [address] 37877 -6429 09 Dec, 2017 Nausea R11.0 and Diarrhea, unspecified type R19.7 [place] [address] 08250- 9784 07 Dec, 2017 Chronic kidney disease, stage III (moderate) N18.3 and Type 2 diabetes mellitus with diabetic polyneuropathy E11.42 [place] [address] [place] [id number] [place] [address] 22034- 3974 06 Dec, 2017 [place] [address] 46073- 8216 23 Nov, 2017 Ulcer of right heel L97.419 and Type 2 diabetes mellitus with diabetic polyneuropathy E11.42 [facility] [address] [place] [id number] [place] [address] [id number] Nov, Dental examination Z01.20 [place] [address] [place] [id number] [place] [address] 07135- 1892 Nov, Open wound of right foot, initial encounter S91.301A [facility] [place] [address] [address] [place] [id number] [place] [address] 99777 -9763 Nov, Open wound of right foot, initial encounter S91.301A ; Non- intractable vomiting with nausea, unspecified vomiting type R11.2 and BMI 60.0- 69.9, adult Z68.44 [place] [address] [place] [id number] [place] [address] 76357- 9445 Nov, [place] [address] 63584- 7515 Nov, Other chronic pain G89.29 [place] [address] [place] [id number] [place] [address] 53963- 2969 Oct, Cellulitis of right lower limb L03.115 [place] [address] 81612- 0645 Oct, [place] [address] 28205- 0607 Oct, [place] [address] 57342- 8971 Oct, Cat scratch W55.03XA ; Cellulitis of right lower limb L03.115 ; Acute nasopharyngitis J00 ; BMI 60.0-69.9, adult Z68.44 and Cough R05 [place] [address] [place] [id number] [place] [address] 66075- 0969 Oct, Cat scratch W55.03XA ; Cutaneous abscess of right lower extremity L02.415 and Cellulitis of right lower limb L03.115 [place] [address] [place] [id number] [place] [address] 99854- 1988 Oct, Type 2 diabetes mellitus with diabetic polyneuropathy E11.42 [place] [address] [place] [id number] [place] [address] 48365- 4740 Oct, Other chronic pain G89.29 [place] [address] [place] [id number] [place] [address] 25227- 8780 Aug, [place] [address] [place] [id number] [place] [address] 08262- 4376 Jul, Other chronic pain G89.29 [place] [address] [place] [id number] [place] [address] 38808- 7098 Jul, [place] [address] [place] [id number] [place] [address] 35203- 6635 Jul, Chronic kidney disease, stage III (moderate) N18.3 [place] [address] 47349- 3620 04 Jul, 2017 Type 2 diabetes mellitus with diabetic polyneuropathy E11.42 ; Essential hypertension I10 ; Irregular menstrual cycle N92.6 ; Hypertriglyceridemia E78.1 ; Anxiety disorder, unspecified F41.9 ; Severe episode of recurrent major depressive disorder, without psychotic features F33.2 ; Tonsillolith J35.8 ; Intrinsic eczema L20.84 ; Subclinical hypothyroidism E03.9 ; Viral pharyngitis J02.9 and Encounter for immunization Z23 [place] [address] 05172- 4690 13 Jun, 2017 Essential hypertension I10 [address] 38097- 8556 08 Jun, 2017 [place] [address] 42049- 7915 Jun, [place] [address] 06702- 6211 May, Moderate persistent asthma without complication J45.40 [place] [address] 46873- 4900 17 May, 2017 Pain in right foot M79.671 ; Pain in left foot M79.672 ; Other chronic pain G89.29 and Chronic prescription opiate use Z79.891 [place] [address] [place] [id number] [place] [address] 59445- 3041 May, [place] [address] 59676- 2992 May, [place] [address] 40448- 8323 Apr, [place] [address] 80454- 8579 Apr, Chronic migraine G43.709 [place] [address] [place] [address] 34043- 3939 Apr, Essential hypertension I10 ; Hypertriglyceridemia E78.1 and Chronic migraine G43.709 [place] [address] [place] [id number] [place] [address] 35425- 6202 Apr, [place] [address] [place] [id number] [place] [address] 02798- 9761 Apr, Sore throat J02.9 [place] [address] [place] [id number] [place] [address] 04680- 7789 Apr, [place] [address] [place] [id number] [place] [address] 96097- 0196 Mar, Strep pharyngitis J02.0 and Non-intractable vomiting with nausea, unspecified vomiting type R11.2 [place] [address] [place] [id number] [place] [address] 13177- 5623 Mar, [place] [address] [place] [id number] [place] [address] 01599- 8391 Mar, [place] [address] [place] [id number] [place] [address] 33136- 0620 Mar, [place] [address] [place] [id number] [place] [address] 54391- 5221 Mar, Type 2 diabetes mellitus with diabetic polyneuropathy E11.42 ; Moderate persistent asthma without complication J45.40 ; Status post amputation of toe of left foot Z89.422 ; Acute seasonal allergic rhinitis, unspecified trigger J30.2 and Left shoulder pain, unspecified chronicity M25.512 [place] [address] [place] [id number] [place] [address] 62197- 2318 Mar, [place] [address] [place] [id number] [place] [address] 46317- 7034 February, Pre-op evaluation Z01.818 ; Type 2 diabetes mellitus with diabetic polyneuropathy E11.42 and Type 2 diabetes mellitus with foot ulcer E11.621 [place] [address], [place] [address]- 9550 February, [place] [address] [place] [id number] [place] [address] 78994- 4730 February, [place] [address] [place] [id number] [place] [address] 87789- 3059 February, Toe infection L08.9 and Type 2 diabetes mellitus with other specified complication E11.69 [place] [address] [place] [id number] [place] [address] 06173- 4687 February, [place] [address] [place] [id number] [place] [address] 16297- 8835 Jan, Type 2 diabetes mellitus with diabetic polyneuropathy E11.42 [place] [address] [place] [id number] [place] [address] 62906- 4956 Jan, [place] [address] [place] [id number] [place] [address] 70146- 0393 Jan, Right upper quadrant pain R10.11 and Intractable vomiting with nausea, unspecified vomiting type R11.2 [place] [address] [place] [id number] [place] [address] 81752- 4550 Jan, Hypertriglyceridemia E78.1 and Essential hypertension I10 [place] [address] [place] [address] 10429- 6226 07 Jan, 2017 Essential hypertension I10 ; Type 2 diabetes mellitus with diabetic polyneuropathy E11.42 and Hypertriglyceridemia E78.1 [place] [address] [place] [address] 86765- 0065 16 Dec, 2016 Type 2 diabetes mellitus with diabetic polyneuropathy E11.42 [place] [address] [place] [id number] [place] [address] 75114- 0699 Dec, Hypertriglyceridemia E78.1 ; Essential hypertension I10 ; Type 2 diabetes mellitus with diabetic polyneuropathy E11.42 ; Anxiety disorder , unspecified F41.9 and Moderate persistent asthma without complication J45.40 [facility] [address], [place] [address]- 2267 15 Dec, 2016 Type 2 diabetes mellitus with diabetic polyneuropathy E11.42 [facility] [address] [place] [id number] [place] [address] [id number] 07 Dec, 2016 [facility] [address] [place] [id number] [place] [address] 68565- 0712 Nov, [facility] [address] [place] [id number] [place] [address] 71859- 3858 Nov, [place] [address] [place] [id number] [place] [address] 48950- 5072 Nov, [facility] [address] [place] [id number] [place] [address] 91169- 9900 Nov, Toe infection L08.9 [place] [address] [place] [id number] [place] [address] 90915- 9602 Nov, [facility] [id number] [place] [address] 55125- 5915 Oct, History of amputation of hallux Z89.419 [facility] [address], [place] [address]- 4165 Oct, Type 2 diabetes mellitus with diabetic polyneuropathy E11.42 [facility] [id number] [place] [address] 24503- 4213 17 Oct, 2016 Type 2 diabetes mellitus with diabetic polyneuropathy E11.42 [facility] [address], [place] [address]- 0972 Oct, Acute osteomyelitis of left foot M86.172 ; Pre-op exam Z01.818 and Type 2 diabetes mellitus with diabetic polyneuropathy E11.42 [facility] [address], [place] [address]- 9453 Oct, Foot ulcer, left, with unspecified severity L97.529 ; Acute osteomyelitis of left foot M86.172 and Type 2 diabetes mellitus with diabetic polyneuropathy E11.42 [facility] [address] [place] [id number] [place] [address] 39834- 8712 Sep, [facility] [address] [place] [id number] [place] [address] 29299- 9250 Sep, Intractable vomiting with nausea, unspecified vomiting type R11.2 and Right upper quadrant pain R10.11 [facility] [address] [place] [id number] [place] [address] 85891- 3091 Aug, [facility] [address] [place] [id number] [place] [address] 31963- 3611 Jul, [facility] [address] [place] [id number] [place] [address] 90191- 3535 Jul, Preop examination Z01.818 [facility] [address] [place] [id number] [place] [address] 71255- 1530 Jul, [facility] [address] [place] [id number] [place] [address] 35499- 7565 Jul, [facility] [address] [place] [id number] [place] [address] 39827- 3930 Jul, Chronic osteomyelitis of left foot M86.672 and Ulcer of left foot, with unspecified severity L97.529 [facility] [address] [place] [id number] [place] [address] 86494- 4488 Jul, Non-pressure chronic ulcer of other part of left foot with unspecified severity L97.529 [facility] [address] [place] [id number] [place] [address] 92533- 4111 Jul, [facility] [address] [place] [id number] [place] [address] 01208- 0793 Jul, [facility] [id number] [place] [address] 47923- 3979 Jun, [facility] [address] [place] [id number] [place] [address] 04880- 4614 Jun, [place] [address] [place] [address] 40437- 1009 Jun, [place] [address] [place] [id number] [place] [address] 14109- 4314 Jun, Right upper quadrant pain R10.11 [place] [address] [place] [id number] [place] [address] 98422- 0377 Jun, [place] [address] [place] [id number] [place] [address] 16660- 8118 Jun, Intractable vomiting with nausea, unspecified vomiting type R11.2 [place] [address] 11448- 2537 13 Jun, 2016 Right upper quadrant pain R10.11 ; Migraine with aura and with status migrainosus, not intractable G43.101 and Intractable vomiting with nausea, unspecified vomiting type R11.2 [place] [address] [place] [id number] [place] [address] 00951- 9033 Jun, [place] [address] [place] [id number] [place] [address] 61308- 6179 Jun, Gastroenteritis K52.9 [place] [address] [place] [id number] [place] [address] 31597- 6215 May, [place] [address] [place] [id number] [place] [address] 17306- 7148 May, Hypertriglyceridemia E78.1 ; Essential hypertension I10 ; Type 2 diabetes mellitus with diabetic polyneuropathy E11.42 ; Moderate persistent asthma without complication J45.40 ; Type 2 diabetes mellitus with foot ulcer E11.621 ; Other chronic pain G89.29 ; Pain in right leg M79.604 ; Pain of left leg M79.605 ; Rash and nonspecific skin eruption R21 and Anxiety disorder, unspecified F41.9 [place] [address] [place] [address] 72017- 0095 May, Essential hypertension I10 ; Hypertriglyceridemia E78.1 ; Upper respiratory infection J06.9 ; Subclinical hypothyroidism E03.9 and Type 2 diabetes mellitus with diabetic polyneuropathy E11.42 [place] [address] [place] [id number] [place] [address] 81044- 8915 Apr, Hypertriglyceridemia E78.1 ; Subclinical hypothyroidism E03.9 ; Essential hypertension I10 and Type 2 diabetes mellitus with diabetic polyneuropathy E11.42 [place] [address] [place] [id number] [place] [address] 00791- 5024 Mar, [facility] [address] [place] [id number] [place] [address] 38034- 4756 Mar, Ulcer of right heel L97.419 [place] [address] [place] [id number] [place] [address] 75109- 6247 Mar, [place] [address] [place] [id number] [place] [address] 39867- 6623 Mar, [place] [address] [place] [id number] [place] [address] 01472- 6177 February, [place] [address] [place] [id number] [place] [address] 19336- 5514 February, Ulcer of right heel L97.419 and DM neuro manif type II E11.49 [place] [address] [place] [id number] [place] [address] 56349- 5225 Jan, [place] [address] [place] [id number] [place] [address] 71709- 6424 Jan, Ulcer of right heel L97.419 ; Type 2 diabetes mellitus with foot ulcer E11.621 and Non-pressure chronic ulcer of other part of left foot with unspecified severity L97.529 [place] [address] [place] [id number] [place] [address] 53531- 7768 Jan, [facility] [address] [place] [id number] [place] [address] 49665- 7259 Jan, [facility] [address] [place] [id number] [place] [address] 99636- 5166 Jan, Infection of toenail L03.039 [facility] [address] [place] [id number] [place] [address] 73430- 8525 Jan, Blister of toe of left foot, initial encounter S90.425A and Type 2 diabetes mellitus with diabetic polyneuropathy E11.42 [facility] [address] [place] [id number] [place] [address] 83021- 4160 Jan, [facility] [address] [place] [id number] [place] [address] 14505 -9430 Jan, Sore throat J02.9 and Strep pharyngitis J02.0 [place] [address] 40477- 5510 Dec, Type 2 diabetes mellitus with diabetic polyneuropathy E11.42 ; Upper respiratory infection J06.9 ; Cough R05 and Asthma exacerbation J45.901 [place] [address] [place] [id number] [place] [address] 31529- 0198 Oct, [place] [address] [place] [id number] [place] [address] 69667- 8399 Oct, [place] [address] [place] [id number] [place] [address] 72813- 1622 Oct, [facility] [address] [place] [id number] [place] [address] 40895- 6302 Oct, [place] [address] [place] [id number] [place] [address] 69937- 6076 Sep, [place] [address] [place] [id number] [place] [address] 51767- 4117 Aug, Anxiety disorder, unspecified F41.9 and Obesity E66.9 [facility] [address] [place] [id number] [place] [address] 05950- 9760 Aug, Moderate persistent asthma without complication J45.40 [place] [address] [place] [id number] [place] [address] 52402- 0937 Aug, Anxiety disorder, unspecified F41.9 [place] [id number] [place] [address] 43883- 3158 Aug, Encounter for immunization Z23 ; Chronic migraine G43.709 ; Hypertriglyceridemia E78.1 ; Type 2 diabetes mellitus with diabetic polyneuropathy E11.42 ; Moderate persistent asthma without complication J45.40 and Morbid obesity E66.[address] 48601- 4476 Jul, [address] 44497- 3393 Jul, [address] 34092- 0223 Jul, [address] 97718- 7893 Jul, Subclinical hypothyroidism E03.[address] 28428- 5120 Jun, Essential hypertension, benign 401.1 ; Diabetic ulcer of lower extremity 250.80 ; Asthma 493.90 ; Diabetes mellitus type II, uncontrolled 250.02 and Hyperlipidemia associated with type 2 diabetes mellitus 250.80 [place] [id number] [place] [address] 31025- 3609 Jun, [place] [id number] [place] [address] 35779- 9781 Jun, [place] [address] 08848- 5175 May, [address] 96871- 3839 Apr, [address] 49118- 3792 Apr, Viral upper respiratory infection 465.9 and Asthma 493.[address] 12648- 9683 Mar, Abnormal ankle brachial index 796.4 [facility] [address], [place] [address]- 3552 February, [facility] [id number] [place] [address] 84111- 5204 February, Essential hypertension, benign 401.1 [facility] [address] [place] [id number] [place] [address] 33993- 0927 February, Diabetic peripheral neuropathy 250.60 ; Ulcer of heel and midfoot 707.14 and Decreased pedal pulses 785.9 [facility] [address] [place] [address] 99867- 1711 February, [facility] [address] [place] [id number] [place] [address] 05177- 2194 February, [facility] [address] [place] [id number] [place] [address] 06164- 7252 Jan, [facility] [id number] [place] [address] 70334- 4682 Jan, [facility] [id number] [place] [address] 68307- 3503 Dec, [facility] [id number] [place] [address] 10812- 0088 Dec, [facility] [id number] [address] Nov, [facility] [id number] [address] Nov, [facility] [id number] [address] Nov, [facility] [id number] [place] [address] 01920- 9580 Nov, [facility] [id number] [address] Nov, [facility] [place] [facility] [address] [id number] [place] [address] Nov, [facility] [place] [facility] [address] [id number] [place] [address] Nov, [facility] [place] [facility] [address] [id number] [place] [address] Nov, [facility] [place] [facility] [address] [id number] [place] [address] Nov, [facility] [place] [facility] [address] [id number] [place] [address] Oct, [facility] [place] [facility] [address] [id number] [place] [address]40 Oct, [facility] [place] [facility] [address] [id number] [place] [address] 4[address] Oct, [facility] [place] [facility] [address] [id number] [place] [address] 1624 Oct, [facility] [place] [facility] [address] [id number] [place] [address] 2440 Oct, [facility] [place] [facility] [address] [id number] [place] [address] 8574 Oct, [facility] [place] [facility] [address] [id number] [place] [address] 3357 Oct, [facility] [place] [facility] [address] [id number] [place] [address] 2511 Oct, [facility] [place] [facility] [address] [id number] [place] [address] 8643 Oct, [facility] [place] [facility] [address] [id number] [place] [address] Oct, [facility] [place] [facility] [address] [id number] [place] [address] 1241 Oct, [facility] [place] [facility] [address] [id number] [place] [address] 9108 Oct, [facility] [address] [id number] [place] [address] 7935 Oct, [facility] [place] [facility] [address] [id number] [place] [address] 6783 Sep, [facility] [place] [facility] [address] [id number] [place] Sep, [facility] [place] [facility] [address] [id number] [place] [address]- 0478 Sep, [facility] [place] [facility] [address] [id number] [place] [address]- 8267 Sep, [facility] [place] [facility] [address] [id number] [place] [address] 3902 Sep, [facility] [place] [facility] [address] [id number] [place] [address]- 3760 Sep, [facility] [place] [facility] [address] [id number] [place] [address]- 3319 Sep, [facility] [place] [facility] [address] [id number] [place] [address]- 3094 Sep, [facility] [place] [facility] [address] [id number] [place] [address] 6051 Sep, [facility] [place] [facility] [address] [id number] [place] [address]- 2077 Sep, [facility] [place] [facility] [address] [id number] [place] [address]- 6074 Sep, [facility] [place] [facility] [address] [id number] [place] [address] Sep, [facility] [place] [facility] [address] [id number] [place] [address] Sep, [facility] [place] [facility] [address] [id number] [place] [address]- 1495 Sep, [facility] [place] [facility] [address] [id number] [place] [address]- 5875 Sep, [facility] [place] [facility] [address] [id number] [place] [address] Sep, [facility] [place] [facility] [address] [id number] [place] [address]- 3651 Aug, [facility] [place] [facility] [address] [id number] [place] [address] Aug, [facility] [place] [facility] [address] [id number] [place] [address]- 8415 Aug, [facility] [place] [facility] [address] [id number] [place] [address]- 0019 Aug, [facility] [place] [facility] [address] [id number] [place] [address]- 9924 Aug, [facility] [place] [facility] [address] [id number] [place] [address]- 5830 Aug, [facility] [place] [facility] [address] [id number] [place] [address]- 8712 Aug, [facility] [place] [facility] [address] [id number] [place] [address]- 2835 Aug, [facility] [place] [facility] [address] [facility] [id number] [place] [address]- 5883 Jul, [facility] [place] [facility] [address] [id number] [place] [address]- 2445 31 Jul, 2014 [facility] [place] [facility] [address] [id number] [place] [address]- 8259 30 Jul, 2014 [facility] [place] [facility] [address] [id number] [place] [address]- 5029 15 Jul, 2014 [facility] [place] [facility] [address] [id number] [place] [address] Jul, [facility] [place] [facility] [address] [id number] [place] [address]- 3482 Jun, [facility] [place] [facility] [address] [id number] [place] [address]- 7312 Jun, [facility] [place] [facility] [address] [id number] [place] [address]- 6063 Jun, [facility] [place] [facility] [address] [id number] [place] [address]- 4749 Jun, [facility] [place] [facility] [address] [id number] [place] [address]- 9700 Jun, [facility] [place] [facility] [address] [id number] [place] [address]- 2562 May, [facility] [place] [facility] [address] [id number] [place] [address]- 5147 May, [facility] [place] [facility] [address] [id number] [place] [address]- 2426 Apr, [facility] [place] [facility] [address] [id number] [place] [address]- 7617 Apr, [facility] [place] [facility] [address] [id number] [place] [address]- 4277 Apr, [facility] [place] [facility] [address] [id number] [place] [address]- 8304 Apr, [facility] [place] [facility] [address] [id number] [place] [address]- 4513 Apr, [facility] [place] [facility] [address] [id number] [place] [address]- 8085 Apr, [facility] [place] [facility] [address] [id number] [place] [address]- 5142 Mar, [facility] [place] [facility] [address] [id number] [place] [address]- 8952 Mar, [facility] [place] [facility] [address] [id number] [place] [address]- 7146 Mar, [facility] [place] [facility] [address] [id number] [place] [address]- 9121 Mar, [facility] [place] [facility] [address] [id number] [place] [address]- 1781 Mar, [facility] [place] [facility] [address] [id number] [place] [address]- 6523 Mar, [facility] [place] [facility] [address] [id number] [place] [address]- 6765 Mar, [facility] [place] [facility] [address] [id number] [place] [address]- 7047 Mar, [facility] [place] [facility] [address] [id number] [place] [address]- 0987 Mar, [facility] [place] [facility] [address] [id number] [place] [address]- 3902 Mar, [facility] [place] [facility] [address] [id number] [place] [address]- 4051 Mar, [facility] [place] [facility] [address] [id number] [place] [address]- 3058 Mar, [facility] [place] [facility] [address] [id number] [place] [address]- 1391 Mar, [facility] [place] [facility] [address] [id number] [place] [address]- 6922 Mar, [facility] [place] [facility] [address] [id number] [place] [address]- 6890 Mar, [facility] [place] [facility] [address] [id number] [place] [address]- 7874 Mar, [facility] [place] [facility] [address] [id number] [place] [address]- 8688 February, [facility] [place] [facility] [address] [id number] [place] [address]- 3498 February, [facility] [place] [facility] [address] [id number] [place] [address]- 1075 February, [facility] [place] [facility] [address] [id number] [place] [address] 1951 February, [facility] [place] [facility] [address] [id number] [place] [address]- 9819 February, [facility] [place] [facility] [address] [id number] [place] [address]- 0727 February, [facility] [place] [facility] [address] [id number] [place] [address]- 4998 February, [facility] [place] [facility] [address] [id number] [place] [address]- 6092 February, [facility] [place] [facility] [address] [id number] [place] [address]- 3012 Jan, [facility] [place] [facility] [address] [id number] [place] [address]- 0162 Jan, [facility] [place] [facility] [address] [id number] [place] [address]- 7813 Dec, [facility] [place] [facility] [address] [id number] [place] [address]- 3301 Dec, [facility] [place] [facility] [address] [id number] [place] [address]- 3586 Dec, [facility] [place] [facility] [address] [id number] [place] [address]- 3214 Dec, [facility] [place] [facility] [address] [id number] [place] [address]- 2856 Dec, [facility] [place] [facility] [address] [id number] [place] [address]- 1725 Dec, [facility] [place] [facility] [address] [id number] [place] [address]- 9381 Dec, [facility] [place] [facility] [address] [id number] [place] [address]- 7313 Dec, [facility] [place] [facility] [address] [id number] [place] [address]- 7386 17 Dec, 2013 [facility] [place] [facility] [address] [id number] [place] [address]- 7089 17 Dec, 2013 [facility] [place] [facility] [address] [id number] [place] [address]- 7098 Dec, [facility] [place] [facility] [address] [id number] [place] [address]- 4940 Dec, [facility] [place] [facility] [address] [id number] [place] [address]- 0616 Dec, [facility] [place] [facility] [address] [id number] [place] [address]- 4209 Dec, [facility] [place] [facility] [address] [id number] [place] [address]- 4243 Nov, [facility] [place] [facility] [address] [id number] [place] [address]- 3493 Nov, [facility] [place] [facility] [address] [id number] [place] [address]- 4021 Oct, [facility] [place] [facility] [address] [id number] [place] [address]- 4469 Oct, [facility] [place] [facility] [address] [id number] [place] [address]- 7317 Oct, [facility] [place] [facility] [address] [id number] [place] [address]- 3304 Oct, [facility] [place] [facility] [address] [id number] [place] [address]- 7277 Oct, [facility] [place] [facility] [address] [id number] [place] [address]- 1949 Oct, [facility] [place] [facility] [address] [id number] [place] [address]- 9640 Oct, [facility] [place] [facility] [address] [id number] [place] [address]- 0271 Sep, [facility] [place] [facility] [address] [id number] [place] [address]- 0216 30 Sep, 2013 [facility] [address] [id number] [place] [address]- 9656 30 Sep, 2013 [facility] [address] [id number] [place] [address]- 5196 Sep, [facility] [address] [id number] [place] [address]- 4816 Sep, [facility] [address] [id number] [place] [address]- 9151 Sep, [facility] [address] [id number] [place] [address] Sep, [facility] [address] [id number] [place] [address]- 9099 Sep, [facility] [address] [id number] [place] [address]- 7887 Sep, [facility] [address] [id number] [place] [address]- 5351 Sep, [facility] [address] [id number] [place] [address]- 6502 Sep, [facility] [address] [id number] [place] [address]- 2028 Sep, [facility] [address] [id number] [place] [address] 2548 16 Sep, 2013 [facility] [address] [id number] [place] [address]- 2546 16 Sep, 2013 [facility] [place] [facility] [address] [id number] [place] [address]- 6586 Sep, [facility] [address] [id number] [place] [address]- 2546 Sep, [facility] [address] [id number] [id number] 9515 Sep, [facility] [place] [facility] [address] [id number] [place] [address]- 9665 Sep, [facility] [place] [facility] [address] [id number] [place] [address]- 2711 Sep, [facility] [place] [facility] [address] [id number] [place] [address]- 2671 Aug, [facility] [place] [facility] [address] [id number] [place] [address]- 1060 Aug, [facility] [place] [facility] [address] [id number] [place] [address]- 4355 Aug, [facility] [place] [facility] [address] [id number] [place] [address]- 4628 Aug, [facility] [place] [facility] [address] [id number] [place] [address]- 8549 Aug, [facility] [place] [facility] [address] [id number] [place] [address]- 9115 Aug, [facility] [place] [facility] [address] [id number] [place] [address]- 2909 Aug, [facility] [place] [facility] [address] [id number] [place] [address]- 8245 Aug, [facility] [place] [facility] [address] [id number] [place] [address]- 0013 Aug, [facility] [place] [facility] [address] [id number], [place] [address]- 0607 Aug, [facility] [place] [facility] [address] [id number] [place] [address]- 0181 Aug, [facility] [place] [facility] [address] [id number] [place] [address]- 9599 Aug, [facility] [place] [facility] [address] [id number] [place] [address]- 1897 Aug, [facility] [place] [facility] [address] [id number] [place] [address]- 4008 05 Aug, 2013 [facility] [place] [facility] [address] [id number] [place] [address]- 2394 Aug, 2012 [facility] [place] [facility] [address] [id number] [place] [address]- 4521 Aug, [facility] [place] [facility] [address] [id number] [place] [address]- 0934 Aug, [facility] [place] [facility] [address] [id number] [place] [address]- 4221 Jul, [facility] [place] [facility] [address] [id number] [place] [address]- 9361 Jul, [facility] [place] [facility] [address] [id number] [place] [address]- 2844 Jul, [facility] [place] [facility] [address] [id number] [place] [address]- 1912 Jul, 2012 [facility] [place] [facility] [address] [id number] [place] [address]- 7362 Jul, [facility] [place] [facility] [address] [id number] [place] [address]- 5508 Jul, [facility] [place] [facility] [address] [facility] [id number] [place] [address]- 3885 Jul, [facility] [place] [facility] [address] [id number] [place] [address]- 3696 27 Sep, 2012 [facility] [place] [facility] [address] [id number], [place] [address]- 8091 20 Sep, 2012 [facility] [place] [facility] [address] [id number] [place] [address]- 1896 17 Sep, 2012 [facility] [place] [facility] [address] [id number] [place] [address]- 3938 10 Sep, 2012 [facility] [place] [facility] [address] [facility] [id number], [place] [address]- 8081 06 Sep, 2012 [facility] [place] [facility] [address] [id number] [address]- 0652 06 Jun, 2013 [facility] [id number], [place] [address]- 8869 05 Jun, 2013 [facility] [address] [facility] [id number], [place] [address]- 1389 Jun, [facility] [address] [facility] [id number], [place] [address]- 8086 May, [facility] [address] [facility] [id number], [place] [address]- 9492 May, [facility] [id number], [place] [address]- 9659 May, [facility] [id number], [place] [address]- 9638 May, [facility] [id number], [place] [address]- 4437 May, [facility] [id number], [place] [address]- 2997 May, [facility] [id number], [place] [address]- 6946 May, [facility] [address] [id number], [place] [address]- 0010 May, IMMUNIZATIONS No Known Immunizations SOCIAL HISTORY Never Assessed REASON FOR VISIT Prior Authorization-Pulmicort. PLAN OF CARE VITAL SIGNS MEDICATIONS Medication Instructions Dosage Frequency Start Date End Date Duration Status Pulmicort Flexhaler 180 MCG/ACT Inhalation Twice a day 1 puff 12h 19 Mar, 2018 Active RESULTS No Results PROCEDURES No Known [...] [facility] 1995 Surgical History salpingectomy [facility] Surgical History bladder surgery-stretch [facility] 2003 Surgical History exploratory laparoscopy [facility] 1995 Surgical History amputation, toe (R great) Surgical History amputation, (R forefoot) 2014 Surgical History amputation, toe Left second 12/2016 Surgical History amputation, 4th left toe 02/2017 Hospitalization History Left foot cellulitis, left 2nd toe amputation-[facility] 12/23 Hospitalization History Surgery Hospitalizations
--- OUTSIDE RECORDS SUMMARY | 2018-08-22 08:58 | XMS REPORT ---
Author Author LUDIVINA STEPHANIE [facility] Address [address] [place] [address] Care Team Providers Care Line Pilot Name Role Phone FARNAZ FLORENCEY Unavailable PROBLEMS Type Condition ICD9-CM Code LEX94-VH Code Onset Dates Condition Status SNOMED Code Problem Subclinical hypothyroidism E03.9 Active 58291817 Problem Hypertriglyceridemia E78.1 Active 987720433 Problem Type 2 diabetes mellitus with diabetic polyneuropathy E11.42 Active 002079253 Problem Type 2 diabetes mellitus with diabetic chronic 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 Active 161369408 Problem Other chronic pain G89.29 Active 04290414 Problem Type 2 diabetes mellitus with other skin complications E11.628 Active 34112181 Problem Pain in left foot M79.672 Active 46456867 Problem Irregular menstrual cycle N92.6 Active 68744056 Problem Pain in right foot M79.671 Active 92339298 Problem Tonsillolith J35.8 Active 7721509 Problem Chronic prescription opiate use Z79.891 Active 493661297 Problem Seasonal allergic rhinitis due to pollen J30.1 Active 20131590 Problem Asthma exacerbation, mild J45.901 Active 671772472 Problem Chronic kidney disease, stage III (moderate) N18.3 Active 100069552 Problem Chronic migraine G43.709 Active 08987831 Problem Moderate persistent asthma without complication J45.40 Active 740455932 Problem Intrinsic eczema L20.84 Active 73219551 Problem Severe episode of recurrent major depressive disorder, without psychotic features F33.2 Active 42148393 Problem Non-pressure chronic ulcer of right heel and midfoot limited to breakdown of skin L97.411 Active 237397011 Problem Ulcer of right heel L97.419 Active 073552374 Problem Obesity E66.9 Active 626127333 Problem Type 2 diabetes mellitus with foot ulcer E11.621 Active 38649451 Problem Essential hypertension I10 Active 43889519 Problem Anxiety disorder, unspecified F41.9 Active 727604428 Problem Type 2 diabetes mellitus with other specified complication E11.69 Active 283444189 Problem Status post amputation of toe of left foot Z89.422 Active 811584989 Problem DM neuro manif type II E11.49 Active 12562467 Problem History of amputation of hallux Z89.419 Active 107407706 ALLERGIES No Information ENCOUNTERS Encounter Location Date Diagnosis [facility] [address] [address]- [address] 28 Jun, 2018 [facility] [address] 26312- 3440 26 Jun, 2018 [facility] [address] 87126- 3293 07 Jun, 2018 Type 2 diabetes mellitus with diabetic polyneuropathy E11.42 [place] [address] 28885- 6653 27 May, 2018 [place] [address] 91515- 2800 May, [facility] [address] 13110- 1776 May, Nausea R11.0 [place] [address] 87563- 7043 May, Other chronic pain G89.29 and Nausea R11.0 [facility] [address] 55592- 2165 May, Left genital labial abscess N76.4 and BMI 60.0-69.9, adult Z68.44 [place] [address] 34678- 4103 May, [place] [address] 48288- 9311 Apr, [place] [address] 51220- 8039 Apr, Chronic migraine G43.709 [place] [address] 18291- 7704 Apr, [facility] [address] [id number] [place] [address] 85348- 8325 Mar, Moderate persistent asthma without complication J45.40 [facility] [address] [id number] [place] [address] 89999- 4081 Mar, Moderate persistent asthma without complication J45.40 [facility] [address] [id number] [place] [address] 54734- 7589 Mar, [facility] [id number] [place] [address] 64060- 0259 February, Chronic migraine G43.709 [facility] [address] [place] [id number] [place] [address] 48586- 1350 February, Chronic migraine G43.709 [facility] [address] [id number] [place] [address] 37594- 1404 February, [facility] [id number] [place] [address] 77491- 7150 February, [facility] [address] [id number] [place] [address] 13049- 9768 February, Type 2 diabetes mellitus with diabetic polyneuropathy E11.42 ; Moderate persistent asthma without complication J45.40 ; Type 2 diabetes mellitus with foot ulcer E11.621 ; Non-pressure chronic ulcer of right heel and midfoot limited to breakdown of skin L97.411 ; Chronic migraine G43.709 and BMI 60.0-69.9, adult Z68.44 [facility] [id number] [place] [address] 52075 -4359 Jan, Asthma exacerbation, mild J45.901 ; Seasonal allergic rhinitis due to pollen J30.1 and BMI 60.0-69.9, adult Z68.44 [facility] [address] [address] 3[address] Jan, [facility] [id number] [place] [address] 52725- 3463 Jan, Other chronic pain G89.29 [place] [address] [place] [id number] [place] [address] 33288- 7522 30 Dec, 2017 Type 2 diabetes mellitus with diabetic polyneuropathy E11.42 [place] [address] [place] [id number] [place] [address] 66292- 1982 19 Dec, 2017 Type 2 diabetes mellitus with diabetic polyneuropathy E11.42 [place] [address] 15151- 7497 15 Dec, 2017 [place] [address] [place] [id number] [place] [address] 06797- 3109 14 Dec, 2017 [place] [address] 19079- 5938 13 Dec, 2017 Chronic kidney disease, stage III (moderate) N18.3 [facility] [address] 08337 -5536 09 Dec, 2017 Nausea R11.0 and Diarrhea, unspecified type R19.7 [place] [address] [place] [id number] [place] [address] 62776- 2833 07 Dec, 2017 Chronic kidney disease, stage III (moderate) N18.3 and Type 2 diabetes mellitus with diabetic polyneuropathy E11.42 [place] [address] [place] [id number] [place] [address] 07060- 7750 Dec, [place] [address] 22478- 8231 Nov, Ulcer of right heel L97.419 and Type 2 diabetes mellitus with diabetic polyneuropathy E11.42 [facility] [address] [id number] Nov, Dental examination Z01.20 [place] [address] [place] [id number] [place] [address] 30286- 5006 Nov, Open wound of right foot, initial encounter S91.301A [facility] [address] [id number] [place] [address] 60411 -1555 Nov, Open wound of right foot, initial encounter S91.301A ; Non- intractable vomiting with nausea, unspecified vomiting type R11.2 and BMI 60.0- 69.9, adult Z68.44 [place] [address] [place] [id number] [place] [address] 37719- 7452 Nov, [place] [address] 69863- 7606 Nov, Other chronic pain G89.29 [place] [address] 62341- 6955 Oct, Cellulitis of right lower limb L03.115 [place] [address] 96459- 5659 Oct, [place] [address] 08951- 8051 Oct, [place] [address] [place] [id number] [place] [address] 55855- 1860 Oct, Cat scratch W55.03XA ; Cellulitis of right lower limb L03.115 ; Acute nasopharyngitis J00 ; BMI 60.0-69.9, adult Z68.44 and Cough R05 [place] [address] [place] [id number] [place] [address] 92964- 5986 Oct, Cat scratch W55.03XA ; Cutaneous abscess of right lower extremity L02.415 and Cellulitis of right lower limb L03.115 [place] [address] [place] [id number] [place] [address] 57534- 0786 Oct, Type 2 diabetes mellitus with diabetic polyneuropathy E11.42 [place] [address] 39412- 4534 Oct, Other chronic pain G89.29 [place] [address] 23782- 3649 Aug, [place] [address] [place] [id number] [place] [address] 07907- 9235 Jul, Other chronic pain G89.29 [place] [address] 66992- 9764 Jul, [place] [address] 48524- 6103 Jul, Chronic kidney disease, stage III (moderate) N18.3 [place] [address] 06583- 4975 04 Jul, 2017 Type 2 diabetes mellitus with diabetic polyneuropathy E11.42 ; Essential hypertension I10 ; Irregular menstrual cycle N92.6 ; Hypertriglyceridemia E78.1 ; Anxiety disorder, unspecified F41.9 ; Severe episode of recurrent major depressive disorder, without psychotic features F33.2 ; Tonsillolith J35.8 ; Intrinsic eczema L20.84 ; Subclinical hypothyroidism E03.9 ; Viral pharyngitis J02.9 and Encounter for immunization Z23 [place] [address] [place] [id number] [place] [address] 11229- 8108 13 Jun, 2017 Essential hypertension I10 [place] [id number] [place] [address] 80536- 5105 08 Jun, 2017 [place] [address] [id number] [place] [address] 22666- 1122 Jun, [place] [address] [place] [id number] [place] [address] 06288- 5418 May, Moderate persistent asthma without complication J45.40 [place] [address] 62675- 8234 May, Pain in right foot M79.671 ; Pain in left foot M79.672 ; Other chronic pain G89.29 and Chronic prescription opiate use Z79.891 [place] [address] [place] [id number] [place] [address] 42036- 9130 May, [place] [address] [place] [id number] [place] [address] 86603- 5789 May, [place] [address] [place] [id number] [place] [address] 22038- 5821 Apr, [place] [address] [place] [id number] [place] [address] 32834- 0302 Apr, Chronic migraine G43.709 [place] [address] 22460- 7355 Apr, Essential hypertension I10 ; Hypertriglyceridemia E78.1 and Chronic migraine G43.709 [place] [address] [place] [id number] [place] [address] 74879- 2134 Apr, [place] [address] [place] [id number] [place] [address] 99959- 1792 Apr, Sore throat J02.9 [place] [id number] [place] [address] 42631- 3612 Apr, [place] [address] [place] [id number] [place] [address] 35987- 5099 Mar, Strep pharyngitis J02.0 and Non-intractable vomiting with nausea, unspecified vomiting type R11.2 [place] [id number] [place] [address] 69164- 7211 Mar, [place] [address] [place] [id number] [place] [address] 15144- 1050 Mar, [place] [address] [place] [id number] [place] [address] 49959- 6070 Mar, [place] [address] [place] [id number] [place] [address] 99205- 9638 Mar, Type 2 diabetes mellitus with diabetic polyneuropathy E11.42 ; Moderate persistent asthma without complication J45.40 ; Status post amputation of toe of left foot Z89.422 ; Acute seasonal allergic rhinitis, unspecified trigger J30.2 and Left shoulder pain, unspecified chronicity M25.512 [place] [id number] [address]- 5387 Mar, [place] [address] [place] [id number] [place] [address] 05326- 0447 February, Pre-op evaluation Z01.818 ; Type 2 diabetes mellitus with diabetic polyneuropathy E11.42 and Type 2 diabetes mellitus with foot ulcer E11.621 [place] [address] [place] [id number] [place] [address] 97798- 1102 February, [place] [address] [place] [id number] [place] [address] 94659- 9734 February, [place] [address] [place] [id number] [place] [address] 01315- 1309 February, Toe infection L08.9 and Type 2 diabetes mellitus with other specified complication E11.69 [place] [address] [place] [id number] [place] [address] 61388- 8491 February, [place] [address] [place] [id number] [place] [address] 42162- 6024 Jan, Type 2 diabetes mellitus with diabetic polyneuropathy E11.42 [place] [address] [place] [id number] [place] [address] 53272- 0566 Jan, [place] [address] [place] [id number] [place] [address] 96899- 2133 Jan, Right upper quadrant pain R10.11 and Intractable vomiting with nausea, unspecified vomiting type R11.2 [place] [id number] [place] [address] 96469- 4469 Jan, Hypertriglyceridemia E78.1 and Essential hypertension I10 [place] [address] [place] [id number] [place] [address] 55943- 0177 07 Jan, 2017 Essential hypertension I10 ; Type 2 diabetes mellitus with diabetic polyneuropathy E11.42 and Hypertriglyceridemia E78.1 [place] [address] [place] [id number] [place] [address] 61398- 7944 Dec, Type 2 diabetes mellitus with diabetic polyneuropathy E11.42 [facility] [address] [address]- 9261 Dec, Hypertriglyceridemia E78.1 ; Essential hypertension I10 ; Type 2 diabetes mellitus with diabetic polyneuropathy E11.42 ; Anxiety disorder , unspecified F41.9 and Moderate persistent asthma without complication J45.40 [facility] [address] [place] [id number] [place] [address] 37664- 2886 Dec, Type 2 diabetes mellitus with diabetic polyneuropathy E11.42 [facility] [address] [place] [id number] [place] [address] [id number] Dec, [facility] [address] [place] [id number] [place] [address] 68145- 0475 Nov, [facility] [address] [place] [id number] [place] [address] 39627- 8837 Nov, [facility] [address] [place] [id number] [place] [address] 03883- 9187 Nov, [facility] [address] [place] [id number] [place] [address] 95897- 6367 Nov, Toe infection L08.9 [facility] [address] [place] [id number] [place] [address] 86767- 5725 Nov, [facility] [address] [place] [address] 11390- 6081 Oct, History of amputation of hallux Z89.419 [facility] [address] [place] [address] 55245- 3747 Oct, Type 2 diabetes mellitus with diabetic polyneuropathy E11.42 [facility] [address] [place] [id number] [place] [address] 63804- 9541 Oct, Type 2 diabetes mellitus with diabetic polyneuropathy E11.42 [facility] [address] [address]- 1037 Oct, Acute osteomyelitis of left foot M86.172 ; Pre-op exam Z01.818 and Type 2 diabetes mellitus with diabetic polyneuropathy E11.42 [facility] [address] [place] [id number] [place] [address] 28513- 9894 Oct, Foot ulcer, left, with unspecified severity L97.529 ; Acute osteomyelitis of left foot M86.172 and Type 2 diabetes mellitus with diabetic polyneuropathy E11.42 [facility] [address] [place] [id number] [place] [address] 89593- 6260 Sep, [facility] [address] [place] [id number] [place] [address] 81817- 3285 Sep, Intractable vomiting with nausea, unspecified vomiting type R11.2 and Right upper quadrant pain R10.11 [facility] [address] [id number] [place] [address] 46677- 6076 Aug, [place] [address] [id number] [place] [address] 21145- 1107 Jul, [facility] [address] [id number] [place] [address] 63911- 5983 Jul, Preop examination Z01.818 [facility] [address] [id number] [place] [address] 66283- 9166 Jul, [facility] [address] [id number] [place] [address] 65101- 1442 Jul, [facility] [address] [id number] [place] [address] 13180- 9687 Jul, Chronic osteomyelitis of left foot M86.672 and Ulcer of left foot, with unspecified severity L97.529 [place] [address] [place] [id number] [place] [address] 20233- 1174 Jul, Non-pressure chronic ulcer of other part of left foot with unspecified severity L97.529 [facility] [address] [id number] [place] [address] 64783- 4045 Jul, [facility] [address] [place] [address] [address]- 7334 Jul, [facility] [id number] [place] [address] 25429- 1601 28 Jun, 2016 [facility] [address] [id number] [place] [address] 53760- 7499 Jun, [facility] [address] [id number] [place] [address] 41045- 7143 Jun, [facility] [address] [id number] [place] [address] 29227- 8209 Jun, Right upper quadrant pain R10.11 [facility] [address] [id number] [place] [address] 21015- 8425 Jun, [facility] [address] [id number] [place] [address] 51125- 9940 Jun, Intractable vomiting with nausea, unspecified vomiting type R11.2 [facility] [address] [place] [id number] [place] [address] 21633- 0183 13 Jun, 2016 Right upper quadrant pain R10.11 ; Migraine with aura and with status migrainosus, not intractable G43.101 and Intractable vomiting with nausea, unspecified vomiting type R11.2 [facility] [address] [place] [address] 89274- 6964 12 Jun, 2016 [facility] [address] [place] [id number] [place] [address] 56233- 3204 Jun, Gastroenteritis K52.9 [facility] [address] [place] [address] 42264- 7382 May, [facility] [address] [id number] [place] [address] 80486- 2415 May, Hypertriglyceridemia E78.1 ; Essential hypertension I10 ; Type 2 diabetes mellitus with diabetic polyneuropathy E11.42 ; Moderate persistent asthma without complication J45.40 ; Type 2 diabetes mellitus with foot ulcer E11.621 ; Other chronic pain G89.29 ; Pain in right leg M79.604 ; Pain of left leg M79.605 ; Rash and nonspecific skin eruption R21 and Anxiety disorder, unspecified F41.9 [place] [id number] [place] [address] 82913- 2548 May, Essential hypertension I10 ; Hypertriglyceridemia E78.1 ; Upper respiratory infection J06.9 ; Subclinical hypothyroidism E03.9 and Type 2 diabetes mellitus with diabetic polyneuropathy E11.42 [place] [address] 75880- 2961 Apr, Hypertriglyceridemia E78.1 ; Subclinical hypothyroidism E03.9 ; Essential hypertension I10 and Type 2 diabetes mellitus with diabetic polyneuropathy E11.42 [place] [address] 20006- 4501 Mar, [place] [address] 67501- 3939 Mar, Ulcer of right heel L97.419 [place] [address] [id number] [place] [address] 68309- 4254 Mar, [place] [address] 37084- 7836 Mar, [place] [address] [id number] [place] [address] 96850- 5417 February, [place] [address] [id number] [place] [address] 69114- 2424 February, Ulcer of right heel L97.419 and DM neuro manif type II E11.49 [facility] [address] [id number] [place] [address] 70647- 8531 Jan, [facility] [address] 03107- 4272 Jan, Ulcer of right heel L97.419 ; Type 2 diabetes mellitus with foot ulcer E11.621 and Non-pressure chronic ulcer of other part of left foot with unspecified severity L97.529 [place] [address] [place] [address]- 0331 Jan, [facility] [id number] [place] [address] 78648- 9255 Jan, [facility] [id number] [place] [address] 50529- 6619 Jan, Infection of toenail L03.039 [facility] [id number] [place] [address] 38635- 1958 14 Jan, 2016 Blister of toe of left foot, initial encounter S90.425A and Type 2 diabetes mellitus with diabetic polyneuropathy E11.42 [facility] [address] [id number] [place] [address] 75877- 0976 Jan, [facility] [address] [place] [address] 09093 -6097 Jan, Sore throat J02.9 and Strep pharyngitis J02.0 [facility] [address] [id number] [place] [address] 23983- 0791 Dec, Type 2 diabetes mellitus with diabetic polyneuropathy E11.42 ; Upper respiratory infection J06.9 ; Cough R05 and Asthma exacerbation J45.901 [facility] [address] [place] [address] 49841- 3944 Oct, [facility] [address] [place] [address] 68170- 0900 Oct, [facility] [id number] [place] [address] 13394- 0997 Oct, [facility] [address] [place] [address] 44753- 1329 Oct, [facility] [id number] [place] [address] 06204- 3029 Sep, [facility] [address] [place] [address] 02095- 5941 Aug, Anxiety disorder, unspecified F41.9 and Obesity E66.9 [facility] [id number] [place] [address] 93215- 5775 Aug, Moderate persistent asthma without complication J45.40 [facility] [id number] [place] [address] 68396- 7492 Aug, Anxiety disorder, unspecified F41.9 [place] [address] 25507- 4604 Aug, Chronic migraine G43.709 ; Encounter for immunization Z23 ; Hypertriglyceridemia E78.1 ; Type 2 diabetes mellitus with diabetic polyneuropathy E11.42 ; Moderate persistent asthma without complication J45.40 and Morbid obesity E66.01 [place] [id number] [place] [address] 82060- 3957 Jul, [facility] [id number] [place] [address] 99204- 2011 Jul, [facility] [id number] [place] [address] 44702- 6315 Jul, [facility] [id number] [place] [address] 29999- 4463 Jul, Subclinical hypothyroidism E03.9 [facility] [id number] [place] [address] 16960- 5612 Jun, Essential hypertension, benign 401.1 ; Diabetic ulcer of lower extremity 250.80 ; Asthma 493.90 ; Diabetes mellitus type II, uncontrolled 250.02 and Hyperlipidemia associated with type 2 diabetes mellitus 250.80 [facility] [id number] [place] [address] 35591- 2550 18 Jun, 2015 [place] [address] 26378- 3477 Jun, [facility] [id number] [place] [address] 26467- 7795 May, [facility] [address] 36620- 7102 Apr, [facility] [address] [address]- 2633 Apr, Viral upper respiratory infection 465.9 and Asthma 493.90 [facility] [address] [address]- 7316 Mar, Abnormal ankle brachial index 796.4 [facility] [id number] [place] [address] 524831- 2345 February, [facility] [id number] [place] [address] 489455- 1739 February, Essential hypertension, benign 401.1 [facility] [id number] [place] [address] 734615- 0922 February, Diabetic peripheral neuropathy 250.60 ; Ulcer of heel and midfoot 707.14 and Decreased pedal pulses 785.9 [facility] [facility] [id number] [place] [address] 38879- 2436 February, [facility] [id number] [place] [address] 824225- 0485 February, [facility] [id number] [place] [address] 20488- 8239 Jan, [facility] [address] [address] 67[address] Jan, [facility] [id number] [place] [address] 48146- 8716 Dec, [facility] [id number] [place] [address] 85655- 6542 Dec, [facility] [id number] [place] [address] 57325- 9947 Nov, [facility] [address] [address] 3436 Nov, [facility] [id number] [place] [address] 56846- 8804 Nov, [facility] [place] [facility] [address] [id number] [place] [address]- 4335 Nov, [facility] [place] [facility] [address] [id number] [place] [address]- 0236 Nov, [facility] [place] [facility] [address] [facility] [id number] [place] [address]- 4266 Nov, [facility] [place] [facility] [address] [id number] [place] [address]- 3890 Nov, 2014 [facility] [place] [facility] [address] [id number] [place] [address]- 4783 Nov, [facility] [place] [facility] [address] [facility] [id number] [place] [address]- 2705 Nov, [facility] [place] [facility] [address] [id number] [place] [address]- 7939 Oct, [facility] [place] [facility] [address] [facility] [id number] [place] [address]- 2529 Oct, [facility] [place] [facility] [address] [facility] [id number] [place] [address]- 8813 Oct, [facility] [place] [facility] [address] [facility] [id number] [place] [address]- 1505 Oct, [facility] [place] [facility] [address] [facility] [id number] [place] [address]- 4205 Oct, [facility] [place] [facility] [address] [facility] [id number] [place] [address]- 9259 Oct, [facility] [place] [facility] [address] [facility] [id number] [place] [address]- 6485 Oct, [facility] [place] [facility] [address] [facility] [id number] [place] [address]- 5332 Oct, [facility] [place] [facility] [address] [facility] [id number] [place] [address]- 5079 Oct, [facility] [place] [facility] [address] [id number] [place] [address]- 9436 Oct, [facility] [place] [facility] [address] [id number] [place] [address]- 5367 Oct, [facility] [place] [facility] [address] [id number] [place] [address]- 3776 Oct, [facility] [place] [facility] [address] [id number] [place] [address]- 4263 Oct, [facility] [place] [facility] [address] [id number] [place] [address]- 2304 Sep, [facility] [place] [facility] [address] [id number] [place] [address]- 5185 Sep, [facility] [place] [facility] [address] [id number] [place] [address]- 5736 Sep, [facility] [place] [facility] [address] [id number] [place] [address]- 0137 Sep, [facility] [place] [facility] [address] [id number] [place] [address]- 6659 Sep, [facility] [place] [facility] [address] [id number] [place] [address]- 6831 Sep, [facility] [place] [facility] [address] [id number] [place] [address]- 7672 Sep, [facility] [place] [facility] [address] [id number] [place] [address]- 3620 Sep, [facility] [place] [facility] [address] [id number] [place] [address]- 5859 Sep, [facility] [place] [facility] [address] [id number] [place] [address]- 6236 Sep, [facility] [place] [facility] [address] [id number] [place] [address]- 7806 Sep, [facility] [place] [facility] [address] [id number] [place] [address]- 8734 Sep, [facility] [place] [facility] [address] [id number] [place] 3739 Sep, [facility] [place] [facility] [address] [id number] [place] [address]- 8407 Sep, [facility] [place] [facility] [address] [id number] [place]60 Sep, [facility] [place] [facility] [address] [id number] [place] [address]- 7530 Sep, [facility] [place] [facility] [address] [id number] [place] [address]- 2265 Aug, [facility] [place] [facility] [address] [id number] [place] [address]- 1302 Aug, [facility] [place] [facility] [address] [id number] [place] [address]- 9779 Aug, [facility] [place] [facility] [address] [id number] [place] [address]- 1879 Aug, [facility] [place] [facility] [address] [id number] [place] [address]- 2822 Aug, [facility] [place] [facility] [address] [id number] [place] [address]- 1174 Aug, [facility] [place] [facility] [address] [id number] [address]- 0701 Aug, [facility] [place] [facility] [address] [id number] [place] [address]- 2368 Aug, [facility] [place] [facility] [address] [id number] [place] [address]- 2440 Jul, [facility] [place] [facility] [address] [id number] [place] [address]- 4458 Jul, [facility] [place] [facility] [address] [id number] [place] [address]- 7728 Jul, [facility] [place] [facility] [address] [id number] [place] [address]- 6053 15 Jul, 2014 [facility] [place] [facility] [address] [id number] [place] [address]- 2654 15 Jul, 2014 [facility] [place] [facility] [address] [id number] [place] [address]- 0559 Jun, [facility] [place] [facility] [address] [id number] [place] [address]- 1534 Jun, [facility] [place] [facility] [address] [id number] [place] [address]- 1646 Jun, [facility] [place] [facility] [address] [id number] [place] [address]- 8678 Jun, [facility] [place] [facility] [address] [id number] [place] [address]- 1041 Jun, [facility] [place] [facility] [address] [id number] [place] [address]- 1689 May, [facility] [place] [facility] [address] [id number] [place] [address]- 2518 May, [facility] [place] [facility] [address] [id number] [place] [address]- 4827 Apr, [facility] [place] [facility] [address] [id number] [place] [address]- 4708 Apr, [facility] [place] [facility] [address] [id number] [place] [address]- 7682 Apr, [facility] [place] [facility] [address] [id number] [place] [address]- 1598 Apr, [facility] [place] [facility] [address] [id number] [place] [address]- 5355 Apr, [facility] [place] [facility] [address] [id number] [place] [address]- 1578 Apr, [facility] [place] [facility] [address] [id number] [place] [address]- 4290 Mar, [facility] [place] [facility] [address] [id number] [place] [address]- 2725 Mar, [facility] [place] [facility] [address] [id number] [place] [address]- 8648 Mar, [facility] [place] [facility] [address] [id number] [place] [address]- 9228 Mar, [facility] [place] [facility] [address] [id number] [place] [address]- 7306 Mar, [facility] [place] [facility] [address] [id number] [place] [address]- 7391 Mar, [facility] [place] [facility] [address] [id number] [place] [address]- 7285 Mar, [facility] [place] [facility] [address] [id number] [place] [address]- 7775 Mar, [facility] [place] [facility] [address] [id number] [place] [address]- 5312 Mar, [facility] [place] [facility] [address] [id number] [place] [address]- 5263 Mar, [facility] [place] [facility] [address] [id number] [place] [address]- 3172 Mar, [facility] [place] [facility] [address] [id number] [place] [address]- 6200 Mar, [facility] [place] [facility] [address] [id number] [place] [address]- 1401 Mar, [facility] [place] [facility] [address] [id number] [place] [address]- 6674 Mar, [facility] [place] [facility] [address] [id number] [place] [address]- 9730 Mar, [facility] [place] [facility] [address] [id number] [place] [address]- 7497 07 Mar, 2014 [facility] [place] [facility] [address] [id number] [place] [address]- 9230 February, [facility] [place] [facility] [address] [id number] [place] [address]- 0030 February, [facility] [place] [facility] [address] [id number] [place] [address]- 7193 February, [facility] [place] [facility] [address] [id number] [place] [address]- 1950 February, [facility] [place] [facility] [address] [id number] [place] [address]- 4180 February, [facility] [place] [facility] [address] [id number] [place] [address]- 4855 February, [facility] [place] [facility] [address] [id number] [place] [address]- 7928 February, [facility] [place] [facility] [address] [id number] [place] [address]- 1508 February, [facility] [place] [facility] [address] [id number] [place] [address]- 7261 Jan, [facility] [place] [facility] [address] [id number] [place] [address]- 8058 Jan, [facility] [place] [facility] [address] [id number] [place] [address]- 8427 Dec, [facility] [place] [facility] [address] [id number] [place] [address]- 1847 Dec, [facility] [place] [facility] [address] [id number] [place] [address]- 7470 Dec, [facility] [place] [facility] [address] [id number] [place] [address]- 9875 Dec, [facility] [place] [facility] [address] [id number] [place] [address]- 0262 Dec, [facility] [place] [facility] [address] [id number] [place] [address]- 8123 Dec, [facility] [place] [facility] [address] [id number] [place] [address]- 5836 19 Dec, 2013 [facility] [address] [id number] [place] [address]- 3319 19 Dec, 2013 [facility] [place] [facility] [address] [id number] [place] [address]- 8106 17 Dec, 2013 [facility] [address] [id number] [place] [address]- 4386 17 Dec, 2013 [facility] [place] [facility] [address] [id number] [place] [address]- 0454 14 Dec, 2013 [facility] [address] [id number] [place] [address]- 2816 14 Dec, 2013 [facility] [address] [id number] [place] [address]- 9250 Dec, [facility] [place] [facility] [address] [id number] [place] [address]- 2657 Dec, [facility] [address] [id number] [place] [address]- 9021 Nov, [facility] [place] [facility] [address] [id number] [place] [address]- 6327 Nov, [facility] [address] [id number] [place] [address]- 3458 Oct, [facility] [place] [facility] [address] [id number] [place] [address]- 1267 Oct, [facility] [place] [facility] [address] [id number] [place] [address]- 2504 Oct, [facility] [place] [facility] [address] [id number] [place] [address]- 8721 Oct, [facility] [place] [facility] [address] [id number] [place] [address]- 8346 Oct, [facility] [place] [facility] [address] [id number] [place] [address]- 7026 Oct, [facility] [address] [id number] [place] [address]40 Oct, [facility] [place] [facility] [address] [id number] [place] [address]- 5232 Sep, [facility] [place] [facility] [address] [id number] [place] [address]- 5397 30 Sep, 2013 [facility] [place] [facility] [address] [id number] [place] [address]- 2373 30 Sep, 2013 [facility] [address] [id number] [place] [address]- 9832 29 Sep, 2013 [facility] [place] [facility] [address] [id number] [place] [address]- 0151 Sep, [facility] [place] [facility] [address] [id number] [place] [address]- 6230 Sep, [facility] [place] [facility] [address] [id number] [place] [address]- 3779 Sep, [facility] [place] [facility] [address] [id number] [place] [address]- 6617 Sep, [facility] [place] [facility] [address] [id number] [place] [address]- 6915 Sep, [facility] [place] [facility] [address] [id number] [place] [address]- 6321 Sep, [facility] [place] [facility] [address] [id number] [place] [address]- 6914 Sep, [facility] [place] [facility] [address] [id number] [place] [address]- 8564 Sep, [facility] [place] [facility] [address] [id number] [place] [address]- 2076 16 Sep, 2013 [facility] [place] [facility] [address] [id number] [place] [address]- 5045 16 Sep, 2013 [facility] [place] [facility] [address] [id number] [place] [address]- 7486 Sep, [facility] [address] [id number] [place] [address]- 8458 Sep, [facility] [place] [facility] [address] [id number] [place] [address]- 8878 Sep, [facility] [address] [id number] [place] [address]- 6071 Sep, [facility] [place] [facility] [address] [id number] [place] [address]- 5976 Sep, [facility] [address] [id number] [place] [address]- 9048 Aug, [facility] [place] [facility] [address] [id number] [place] [address]- 6809 Aug, [facility] [address] [id number] [place] [address]- 7302 Aug, [facility] [place] [facility] [address] [id number] [place] [address]- 0717 Aug, [facility] [address] [id number] [place] [address]- 7524 Aug, [facility] [place] [facility] [address] [id number] [place] [address]- 0718 Aug, [facility] [address] [id number] [place] [address]- 4915 Aug, [facility] [place] [facility] [address] [id number] [place] [address]- 2456 Aug, [facility] [place] [facility] [address] [id number] [place] [address]- 8145 Aug, [facility] [place] [facility] [address] [id number] [place] [address]- 8278 Aug, [facility] [place] [facility] [address] [id number] [place] [address]- 2923 Aug, [facility] [place] [facility] [address] [id number] [place] [address]- 0300 Aug, [facility] [place] [facility] [address] [id number] [place] [address]- 7298 Aug, [facility] [place] [facility] [address] [id number] [place] [address]- 4250 Aug, [facility] [place] [facility] [address] [id number] [place] [address]- 4692 Aug, [facility] [place] [facility] [address] [id number] [place] [address]- 0574 Aug, [facility] [place] [facility] [address] [id number] [place] [address]- 4573 Aug, [facility] [place] [facility] [address] [id number] [place] [address]- 8373 Jul, [facility] [place] [facility] [address] [id number] [place] [address]- 4391 Jul, [facility] [place] [facility] [address] [id number] [place] [address]- 4043 Jul, [facility] [place] [facility] [address] [id number] [place] [address]- 4994 Jul, [facility] [place] [facility] [address] [id number] [place] [address]- 3407 Jul, [facility] [place] [facility] [address] [id number] [place] [address]- 5962 Jul, [facility] [place] [facility] [address] [id number] [place] [address]- 1375 Jul, [facility] [place] [facility] [address] [id number] [place] [address]- 7166 27 Jun, 2013 [facility] [place] [facility] [address] [id number] [place] [address]- 2681 20 Jun, 2013 [facility] [place] [facility] [address] [id number] [place] [address]- 8766 17 Jun, 2013 [facility] [address] [id number] [address]- 3366 Jun, [facility] [id number] [address]- 3948 Jun, [facility] [address] [id number] [address]- 2814 Jun, [facility] [id number] [address]- 2509 Jun, [facility] [id number] [address]- 1472 Jun, [facility] [id number] [address]- 9399 May, [facility] [id number] [address]- 0570 May, [facility] [id number] [address]- 2051 May, [facility] [id number] [address]- 6257 May, [facility] [id number] [address]- 1572 May, [facility] [address] [id number] [address]- 6614 May, [facility] [address] [id number] [address]- 3017 May, [facility] [address] [id number] [address]- 3688 May, IMMUNIZATIONS No Known Immunizations SOCIAL HISTORY Never Assessed REASON FOR VISIT FYI only PLAN OF CARE VITAL SIGNS MEDICATIONS Unknown [...] in heel of feet Surgical History appendectomy [facility] 1995 Surgical History salpingectomy [facility] Surgical History bladder surgery-stretch [facility] 2003 Surgical History exploratory laparoscopy [facility] 1995 Surgical History amputation, toe (R great) Surgical History amputation, (R forefoot) 2015 Surgical History amputation, toe Left second 12/2016 Surgical History amputation, 4th left toe 02/2017 Hospitalization History Left foot cellulitis, left 2nd toe amputation-[facility] 12/23 Hospitalization History Surgery Hospitalizations
--- OUTSIDE RECORDS SUMMARY | 2018-08-22 08:59 | XMS REPORT ---
Author Author LUDIVINA STEPHANIE [facility] Address [address] [place] [address] Care Team Providers Care Muff Winder Name Role Phone DEE DEE FLORENCEHANY Unavailable PROBLEMS Type Condition ICD9-CM Code OBQ32-BV Code Onset Dates Condition Status SNOMED Code Problem Subclinical hypothyroidism E03.9 Active 87741261 Problem Hypertriglyceridemia E78.1 Active 180889919 Problem Type 2 diabetes mellitus with diabetic polyneuropathy E11.42 Active 311195594 Problem Type 2 diabetes mellitus with diabetic chronic 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 Active 577372169 Problem Other chronic pain G89.29 Active 36505627 Problem Type 2 diabetes mellitus with other skin complications E11.628 Active 30679926 Problem Pain in left foot M79.672 Active 06805627 Problem Irregular menstrual cycle N92.6 Active 78906301 Problem Pain in right foot M79.671 Active 22240983 Problem Tonsillolith J35.8 Active 4344748 Problem Chronic prescription opiate use Z79.891 Active 510260965 Problem Seasonal allergic rhinitis due to pollen J30.1 Active 52003516 Problem Asthma exacerbation, mild J45.901 Active 649069263 Problem Chronic kidney disease, stage III (moderate) N18.3 Active 281129250 Problem Chronic migraine G43.709 Active 98158542 Problem Moderate persistent asthma without complication J45.40 Active 182677292 Problem Intrinsic eczema L20.84 Active 51026902 Problem Severe episode of recurrent major depressive disorder, without psychotic features F33.2 Active 83351670 Problem Non-pressure chronic ulcer of right heel and midfoot limited to breakdown of skin L97.411 Active 691028724 Problem Ulcer of right heel L97.419 Active 753422988 Problem Obesity E66.9 Active 381513451 Problem Type 2 diabetes mellitus with foot ulcer E11.621 Active 98676734 Problem Essential hypertension I10 Active 45714041 Problem Anxiety disorder, unspecified F41.9 Active 883325271 Problem Type 2 diabetes mellitus with other specified complication E11.69 Active 447933020 Problem Status post amputation of toe of left foot Z89.422 Active 082827262 Problem DM neuro manif type II E11.49 Active 67448301 Problem History of amputation of hallux Z89.419 Active 700601205 ALLERGIES No Information ENCOUNTERS Encounter Location Date Diagnosis [place] [address] [address] 28 Jun, 2018 [facility] [address] [address]- [address] 26 Jun, 2018 [place] [address] [address]88- 7599 May, [place] [address] 33875- 1014 May, Nausea R11.0 [place] [address] 5[address]24- 4380 May, Other chronic pain G89.29 and Nausea R11.0 [place] [address] 65733- 8000 May, Left genital labial abscess N76.4 and BMI 60.0-69.9, adult Z68.44 [place] [address] 41480- 4258 May, [place] [address] 43095- 5490 Apr, [place] [address] 81670- 2977 Apr, Chronic migraine G43.709 [place] [address] 65409- 1433 Apr, [place] [address] 22835- 9626 Mar, Moderate persistent asthma without complication J45.40 [place] [address] 62241- 6125 Mar, Moderate persistent asthma without complication J45.40 [facility] [address] [address] Mar, [facility] [address] [place] [address] 05097- 5532 February, Chronic migraine G43.709 [facility] [address] [place] [address] 67482- 2223 February, Chronic migraine G43.709 [facility] [address] [place] [address] 20085- 4720 February, [facility] [address] [place] [address] 31800- 7427 February, [facility] [address] [place] [address] 36400- 4639 February, Type 2 diabetes mellitus with diabetic polyneuropathy E11.42 ; Moderate persistent asthma without complication J45.40 ; Type 2 diabetes mellitus with foot ulcer E11.621 ; Non-pressure chronic ulcer of right heel and midfoot limited to breakdown of skin L97.411 ; Chronic migraine G43.709 and BMI 60.0-69.9, adult Z68.44 [facility] [address] [address] Jan, Asthma exacerbation, mild J45.901 ; Seasonal allergic rhinitis due to pollen J30.1 and BMI 60.0-69.9, adult Z68.44 [facility] [address] [address] 97[address] Jan, [facility] [address] [place] [id number] [place] [address] 25175- 4786 Jan, Other chronic pain G89.29 [facility] [address] [place] [address] 41990- 1939 Dec, Type 2 diabetes mellitus with diabetic polyneuropathy E11.42 [facility] [address] [place] [address] [place] [address] 19 Dec, 2017 Type 2 diabetes mellitus with diabetic polyneuropathy E11.42 [place] [address] 37355- 3413 15 Dec, 2017 [place] [address] 23756- 0335 14 Dec, 2017 [place] [address] 09031- 6930 13 Dec, 2017 Chronic kidney disease, stage III (moderate) N18.3 [facility] [place] [address] [address] -[address]661 09 Dec, 2017 Nausea R11.0 and Diarrhea, unspecified type R19.7 [place] [address] 13328- 9333 07 Dec, 2017 Chronic kidney disease, stage III (moderate) N18.3 and Type 2 diabetes mellitus with diabetic polyneuropathy E11.42 [place] [address] [place] [id number] [place] [address] 30463- 0880 06 Dec, 2017 [place] [address] 69458- 4216 23 Nov, 2017 Ulcer of right heel L97.419 and Type 2 diabetes mellitus with diabetic polyneuropathy E11.42 [facility] [address] [place] [id number] [place] [address] [id number] Nov, Dental examination Z01.20 [place] [address] [place] [id number] [place] [address] 89234- 0420 Nov, Open wound of right foot, initial encounter S91.301A [facility] [place] [address] [place] [id number] [place] [address] 81609 -9515 Nov, Open wound of right foot, initial encounter S91.301A ; Non- intractable vomiting with nausea, unspecified vomiting type R11.2 and BMI 60.0- 69.9, adult Z68.44 [place] [address] [place] [id number] [place] [address] 50374- 8896 Nov, [place] [address] 05676- 7652 Nov, Other chronic pain G89.29 [place] [address] [place] [id number] [place] [address] 02085- 4656 Oct, Cellulitis of right lower limb L03.115 [place] [address] 83414- 7499 Oct, [place] [address] 45774- 8547 Oct, [place] [address] 52766- 3695 Oct, Cat scratch W55.03XA ; Cellulitis of right lower limb L03.115 ; Acute nasopharyngitis J00 ; BMI 60.0-69.9, adult Z68.44 and Cough R05 [place] [address] [place] [id number] [place] [address] 14405- 2620 Oct, Cat scratch W55.03XA ; Cutaneous abscess of right lower extremity L02.415 and Cellulitis of right lower limb L03.115 [place] [address] [place] [id number] [place] [address] 85884- 4690 Oct, Type 2 diabetes mellitus with diabetic polyneuropathy E11.42 [place] [address] [place] [id number] [place] [address] 03082- 7712 Oct, Other chronic pain G89.29 [place] [address] [place] [id number] [place] [address] 39214- 6335 Aug, [place] [address] [place] [id number] [place] [address] 84160- 1693 Jul, Other chronic pain G89.29 [place] [address] [place] [id number] [place] [address] 55251- 0886 Jul, [place] [address] [place] [id number] [place] [address] 42902- 4518 Jul, Chronic kidney disease, stage III (moderate) N18.3 [place] [address] 23671- 4253 04 Jul, 2017 Type 2 diabetes mellitus with diabetic polyneuropathy E11.42 ; Essential hypertension I10 ; Irregular menstrual cycle N92.6 ; Hypertriglyceridemia E78.1 ; Anxiety disorder, unspecified F41.9 ; Severe episode of recurrent major depressive disorder, without psychotic features F33.2 ; Tonsillolith J35.8 ; Intrinsic eczema L20.84 ; Subclinical hypothyroidism E03.9 ; Viral pharyngitis J02.9 and Encounter for immunization Z23 [place] [address] 76190- 3288 13 Jun, 2017 Essential hypertension I10 [address] 03103- 8493 08 Jun, 2017 [place] [address] 37768- 0426 Jun, [place] [address] 44631- 3652 May, Moderate persistent asthma without complication J45.40 [place] [address] 60103- 4263 17 May, 2017 Pain in right foot M79.671 ; Pain in left foot M79.672 ; Other chronic pain G89.29 and Chronic prescription opiate use Z79.891 [place] [address] [place] [id number] [place] [address] 08863- 0133 May, [place] [address] 18873- 2127 May, [place] [address] 80225- 8018 Apr, [place] [address] 92960- 8386 Apr, Chronic migraine G43.709 [place] [address] [place] [address] 10662- 8860 Apr, Essential hypertension I10 ; Hypertriglyceridemia E78.1 and Chronic migraine G43.709 [place] [address] [place] [id number] [place] [address] 45331- 9661 Apr, [place] [address] [place] [id number] [place] [address] 06125- 7158 Apr, Sore throat J02.9 [place] [address] [place] [id number] [place] [address] 33038- 5387 Apr, [place] [address] [place] [id number] [place] [address] 73965- 8220 Mar, Strep pharyngitis J02.0 and Non-intractable vomiting with nausea, unspecified vomiting type R11.2 [place] [address] [place] [id number] [place] [address] 48218- 4285 Mar, [place] [address] [place] [id number] [place] [address] 43224- 7610 Mar, [place] [address] [place] [id number] [place] [address] 41964- 9778 Mar, [place] [address] [place] [id number] [place] [address] 90045- 2391 Mar, Type 2 diabetes mellitus with diabetic polyneuropathy E11.42 ; Moderate persistent asthma without complication J45.40 ; Status post amputation of toe of left foot Z89.422 ; Acute seasonal allergic rhinitis, unspecified trigger J30.2 and Left shoulder pain, unspecified chronicity M25.512 [place] [address] [place] [id number] [place] [address] 05277- 1539 Mar, [place] [address] [place] [id number] [place] [address] 53051- 2531 February, Pre-op evaluation Z01.818 ; Type 2 diabetes mellitus with diabetic polyneuropathy E11.42 and Type 2 diabetes mellitus with foot ulcer E11.621 [place] [address] [address]- 6788 February, [place] [address] [place] [id number] [place] [address] 57018- 2505 February, [place] [address] [place] [id number] [place] [address] 25115- 0290 February, Toe infection L08.9 and Type 2 diabetes mellitus with other specified complication E11.69 [place] [address] [place] [id number] [place] [address] 34192- 4152 February, [place] [address] [place] [id number] [place] [address] 58691- 2617 Jan, Type 2 diabetes mellitus with diabetic polyneuropathy E11.42 [place] [address] [place] [id number] [place] [address] 20361- 5747 Jan, [place] [address] [place] [id number] [place] [address] 83096- 1966 Jan, Right upper quadrant pain R10.11 and Intractable vomiting with nausea, unspecified vomiting type R11.2 [place] [address] [place] [id number] [place] [address] 09771- 2299 Jan, Hypertriglyceridemia E78.1 and Essential hypertension I10 [place] [address] [place] [address] 49020- 0394 07 Jan, 2017 Essential hypertension I10 ; Type 2 diabetes mellitus with diabetic polyneuropathy E11.42 and Hypertriglyceridemia E78.1 [place] [address] [place] [address] 32558- 9190 16 Dec, 2016 Type 2 diabetes mellitus with diabetic polyneuropathy E11.42 [place] [address] [place] [id number] [place] [address] 87834- 8540 Dec, Hypertriglyceridemia E78.1 ; Essential hypertension I10 ; Type 2 diabetes mellitus with diabetic polyneuropathy E11.42 ; Anxiety disorder , unspecified F41.9 and Moderate persistent asthma without complication J45.40 [facility] [address] [address]- 4164 15 Dec, 2016 Type 2 diabetes mellitus with diabetic polyneuropathy E11.42 [facility] [address] [place] [id number] [place] [address] [id number] 07 Dec, 2016 [facility] [address] [place] [id number] [place] [address] 67315- 9473 Nov, [facility] [address] [place] [id number] [place] [address] 71480- 0013 Nov, [place] [address] [place] [id number] [place] [address] 82159- 1205 Nov, [facility] [address] [place] [id number] [place] [address] 44192- 0097 Nov, Toe infection L08.9 [place] [address] [place] [id number] [place] [address] 32652- 7271 Nov, [facility] [address] [place] [address] 09352- 0964 Oct, History of amputation of hallux Z89.419 [facility] [address] [address]- 6741 Oct, Type 2 diabetes mellitus with diabetic polyneuropathy E11.42 [facility] [address] [place] [address] 91078- 1547 17 Oct, 2016 Type 2 diabetes mellitus with diabetic polyneuropathy E11.42 [facility] [address] [address]- 0729 Oct, Acute osteomyelitis of left foot M86.172 ; Pre-op exam Z01.818 and Type 2 diabetes mellitus with diabetic polyneuropathy E11.42 [facility] [address] [address]- 6635 Oct, Foot ulcer, left, with unspecified severity L97.529 ; Acute osteomyelitis of left foot M86.172 and Type 2 diabetes mellitus with diabetic polyneuropathy E11.42 [facility] [address] [place] [id number] [place] [address] 67950- 1185 Sep, [facility] [address] [place] [id number] [place] [address] 34651- 1624 Sep, Intractable vomiting with nausea, unspecified vomiting type R11.2 and Right upper quadrant pain R10.11 [facility] [address] [place] [id number] [place] [address] 94213- 8799 Aug, [facility] [address] [place] [id number] [place] [address] 54776- 0208 Jul, [facility] [address] [place] [id number] [place] [address] 36601- 0405 Jul, Preop examination Z01.818 [facility] [address] [place] [id number] [place] [address] 14012- 1466 Jul, [facility] [address] [place] [id number] [place] [address] 95176- 4968 Jul, [facility] [address] [place] [id number] [place] [address] 47742- 3458 Jul, Chronic osteomyelitis of left foot M86.672 and Ulcer of left foot, with unspecified severity L97.529 [facility] [address] [place] [id number] [place] [address] 74320- 0393 Jul, Non-pressure chronic ulcer of other part of left foot with unspecified severity L97.529 [facility] [address] [place] [id number] [place] [address] 89789- 5324 Jul, [facility] [address] [place] [id number] [place] [address] 84367- 8173 Jul, [facility] [address] [place] [address] 61675- 6008 Jun, [facility] [address] [place] [id number] [place] [address] 95636- 0678 Jun, [place] [address] [place] [address] 03118- 3722 Jun, [place] [address] [place] [id number] [place] [address] 46415- 6218 Jun, Right upper quadrant pain R10.11 [place] [address] [place] [id number] [place] [address] 38106- 3614 Jun, [place] [address] [place] [id number] [place] [address] 88819- 0023 Jun, Intractable vomiting with nausea, unspecified vomiting type R11.2 [place] [address] 01330- 5670 13 Jun, 2016 Right upper quadrant pain R10.11 ; Migraine with aura and with status migrainosus, not intractable G43.101 and Intractable vomiting with nausea, unspecified vomiting type R11.2 [place] [address] [place] [id number] [place] [address] 31128- 9854 Jun, [place] [address] [place] [id number] [place] [address] 99466- 7207 Jun, Gastroenteritis K52.9 [place] [address] [place] [id number] [place] [address] 35746- 7085 May, [place] [address] [place] [id number] [place] [address] 14078- 7608 May, Hypertriglyceridemia E78.1 ; Essential hypertension I10 ; Type 2 diabetes mellitus with diabetic polyneuropathy E11.42 ; Moderate persistent asthma without complication J45.40 ; Type 2 diabetes mellitus with foot ulcer E11.621 ; Other chronic pain G89.29 ; Pain in right leg M79.604 ; Pain of left leg M79.605 ; Rash and nonspecific skin eruption R21 and Anxiety disorder, unspecified F41.9 [place] [address] [place] [address] 75301- 2659 May, Essential hypertension I10 ; Hypertriglyceridemia E78.1 ; Upper respiratory infection J06.9 ; Subclinical hypothyroidism E03.9 and Type 2 diabetes mellitus with diabetic polyneuropathy E11.42 [place] [address] [place] [id number] [place] [address] 05003- 8664 Apr, Hypertriglyceridemia E78.1 ; Subclinical hypothyroidism E03.9 ; Essential hypertension I10 and Type 2 diabetes mellitus with diabetic polyneuropathy E11.42 [place] [address] [place] [id number] [place] [address] 37387- 9490 Mar, [facility] [address] [place] [id number] [place] [address] 60968- 7799 Mar, Ulcer of right heel L97.419 [place] [address] [place] [id number] [place] [address] 41437- 4417 Mar, [place] [address] [place] [id number] [place] [address] 56199- 0207 Mar, [place] [address] [place] [id number] [place] [address] 69075- 0498 February, [place] [address] [place] [id number] [place] [address] 00818- 2472 February, Ulcer of right heel L97.419 and DM neuro manif type II E11.49 [place] [address] [place] [id number] [place] [address] 93820- 4036 Jan, [place] [address] [place] [id number] [place] [address] 39277- 6592 Jan, Ulcer of right heel L97.419 ; Type 2 diabetes mellitus with foot ulcer E11.621 and Non-pressure chronic ulcer of other part of left foot with unspecified severity L97.529 [place] [address] [place] [id number] [place] [address] 67819- 7961 Jan, [facility] [address] [place] [id number] [place] [address] 63998- 6477 Jan, [facility] [address] [place] [id number] [place] [address] 77392- 0975 Jan, Infection of toenail L03.039 [facility] [address] [place] [id number] [place] [address] 85527- 9912 Jan, Blister of toe of left foot, initial encounter S90.425A and Type 2 diabetes mellitus with diabetic polyneuropathy E11.42 [facility] [address] [place] [id number] [place] [address] 83651- 0743 Jan, [facility] [address] [place] [id number] [place] [address] 44818 -2862 Jan, Sore throat J02.9 and Strep pharyngitis J02.0 [place] [address] 19050- 0484 Dec, Type 2 diabetes mellitus with diabetic polyneuropathy E11.42 ; Upper respiratory infection J06.9 ; Cough R05 and Asthma exacerbation J45.901 [place] [address] [place] [id number] [place] [address] 39182- 7193 Oct, [place] [address] [place] [id number] [place] [address] 19430- 3724 Oct, [place] [address] [place] [id number] [place] [address] 65410- 2539 Oct, [facility] [address] [place] [id number] [place] [address] 98693- 1042 Oct, [place] [address] [place] [id number] [place] [address] 10078- 1731 Sep, [place] [address] [place] [id number] [place] [address] 89994- 5490 Aug, Anxiety disorder, unspecified F41.9 and Obesity E66.9 [facility] [address] [place] [id number] [place] [address] 83965- 4559 Aug, Moderate persistent asthma without complication J45.40 [place] [address] [place] [id number] [place] [address] 64949- 4940 Aug, Anxiety disorder, unspecified F41.9 [place] [id number] [place] [address] 99222- 1835 Aug, Chronic migraine G43.709 ; Encounter for immunization Z23 ; Hypertriglyceridemia E78.1 ; Type 2 diabetes mellitus with diabetic polyneuropathy E11.42 ; Moderate persistent asthma without complication J45.40 and Morbid obesity E66.[address] 60248- 9377 Jul, [address] 45467- 6455 Jul, [address] 83285- 5399 Jul, [address] 87629- 2549 Jul, Subclinical hypothyroidism E03.[address] 29233- 0741 Jun, Essential hypertension, benign 401.1 ; Diabetic ulcer of lower extremity 250.80 ; Asthma 493.90 ; Diabetes mellitus type II, uncontrolled 250.02 and Hyperlipidemia associated with type 2 diabetes mellitus 250.80 [place] [id number] [place] [address] 00632- 7535 Jun, [place] [id number] [place] [address] 83231- 0305 Jun, [place] [address] 36332- 8165 May, [address] 44584- 5062 Apr, [address] 49461- 0506 Apr, Viral upper respiratory infection 465.9 and Asthma 493.[address] 44525- 2837 Mar, Abnormal ankle brachial index 796.4 [facility] [address] [address]- 1681 February, [facility] [address] [place] [address] 69564- 5500 February, Essential hypertension, benign 401.1 [facility] [address] [place] [id number] [place] [address] 33035- 1990 February, Diabetic peripheral neuropathy 250.60 ; Ulcer of heel and midfoot 707.14 and Decreased pedal pulses 785.9 [facility] [address] [place] [address] 41057- 1561 February, [facility] [address] [place] [id number] [place] [address] 57475- 9216 February, [facility] [address] [place] [id number] [place] [address] 27700- 1710 Jan, [facility] [address] [place] [id number] [place] [address] 93963- 8113 Jan, [facility] [address] [place] [address] 57311- 8494 Dec, [facility] [id number] [place] [id number] Dec, [facility] [id number] [address] Nov, [facility] [id number] [address] Nov, [facility] [id number] [address] Nov, [facility] [id number] [place] [id number]- [phone] Nov, [facility] [id number] [address] Nov, [facility] [place] [facility] [address] [id number] [place] [address] Nov, [facility] [place] [facility] [address] [id number] [place] [address] Nov, [facility] [place] [facility] [address] [id number] [place] [address] Nov, [facility] [place] [facility] [address] [id number] [place] [address] Nov, [facility] [place] [facility] [address] [address] [id number] [place] [address] Oct, [facility] [place] [facility] [address] [id number] [place] [address] Oct, [facility] [place] [facility] [address] [id number] [place] [address] Oct, [facility] [place] [facility] [address] [id number] [place] [address] Oct, [facility] [place] [facility] [address] [id number] [place] [address] Oct, [facility] [place] [facility] [address] [id number] [place] [address] 1975 Oct, [facility] [place] [facility] [address] [id number] [place] [address] 7061 Oct, [facility] [place] [facility] [address] [id number] [place] [address]45 Oct, [facility] [place] [facility] [address] [id number] [place] [address] 1156 Oct, [facility] [place] [facility] [address] [id number] [place] [address] 5646 Oct, [facility] [place] [facility] [address] [id number] [place] [address]- 3656 Oct, [facility] [place] [facility] [address] [id number] [place] [address] 1001 Oct, [facility] [address] [id number] [place] [address] 0371 Oct, [facility] [place] [facility] [address] [id number] [place] [address]- 2276 Sep, [facility] [place] [facility] [address] [id number] [place] [address] Sep, [facility] [place] [facility] [address] [id number] [place] [address]- 2663 Sep, [facility] [place] [facility] [address] [id number] [place] [address]- 97[address] Sep, [facility] [place] [facility] [address] [id number] [place] [address]- 8402 Sep, [facility] [place] [facility] [address] [id number] [place] [address]- 8916 Sep, [facility] [place] [facility] [address] [id number] [place] [address]- 3388 Sep, [facility] [place] [facility] [address] [id number] [place] [address]- 4816 Sep, [facility] [place] [facility] [address] [id number] [place] [address]- 8845 Sep, [facility] [place] [facility] [address] [id number] [place] [address]- 7557 Sep, [facility] [place] [facility] [address] [id number] [place] [address]- 1976 Sep, [facility] [place] [facility] [address] [id number] [place] [address] Sep, [facility] [place] [facility] [address] [id number] [place] [address] Sep, [facility] [place] [facility] [address] [id number] [place] [address]- 9599 Sep, [facility] [place] [facility] [address] [id number] [place] [address]- 1255 Sep, [facility] [place] [facility] [address] [id number] [place] [address] Sep, [facility] [place] [facility] [address] [id number] [place] [address]- 6642 Aug, [facility] [place] [facility] [address] [id number] [place] [address] Aug, [facility] [place] [facility] [address] [id number] [place] [address]- 7322 Aug, [facility] [place] [facility] [address] [id number] [place] [address]- 7808 Aug, [facility] [place] [facility] [address] [id number] [place] [address]- 1562 Aug, [facility] [place] [facility] [address] [id number] [place] [address]- 3080 Aug, [facility] [place] [facility] [address] [id number] [place] [address]- 4754 Aug, [facility] [place] [facility] [address] [id number] [place] [address]- 7793 Aug, [facility] [place] [facility] [address] [facility] [id number] [place] [address]- 0772 Jul, [facility] [place] [facility] [address] [id number] [place] [address]- 1643 31 Jul, 2014 [facility] [place] [facility] [address] [id number] [place] [address]- 6302 30 Jul, 2014 [facility] [place] [facility] [address] [id number] [place] [address]- 7[address] 15 Jul, 2014 [facility] [place] [facility] [address] [id number] [place] [address] Jul, [facility] [place] [facility] [address] [id number] [place] [address]- 0701 Jun, [facility] [place] [facility] [address] [id number] [place] [address]- 7325 Jun, [facility] [place] [facility] [address] [id number] [place] [address]- 1581 Jun, [facility] [place] [facility] [address] [id number] [place] [address]- 4782 Jun, [facility] [place] [facility] [address] [id number] [place] [address]- 3667 Jun, [facility] [place] [facility] [address] [id number] [place] [address]- 7786 May, [facility] [place] [facility] [address] [id number] [place] [address]- 2982 May, [facility] [place] [facility] [address] [id number] [place] [address]- 4470 Apr, [facility] [place] [facility] [address] [id number] [place] [address]- 4511 Apr, [facility] [place] [facility] [address] [id number] [place] [address]- 8412 Apr, [facility] [place] [facility] [address] [id number] [place] [address]- 0351 Apr, [facility] [place] [facility] [address] [id number] [place] [address]- 6692 Apr, [facility] [place] [facility] [address] [id number] [place] [address]- 4811 Apr, [facility] [place] [facility] [address] [id number] [place] [address]- 5824 Mar, [facility] [place] [facility] [address] [id number] [place] [address]- 1318 Mar, [facility] [place] [facility] [address] [id number] [place] [address]- 0566 Mar, [facility] [place] [facility] [address] [id number] [place] [address]- 0182 Mar, [facility] [place] [facility] [address] [id number] [place] [address]- 5628 Mar, [facility] [place] [facility] [address] [id number] [place] [address]- 4571 Mar, [facility] [place] [facility] [address] [id number] [place] [address]- 5209 Mar, [facility] [place] [facility] [address] [id number] [place] [address]- 0345 Mar, [facility] [place] [facility] [address] [id number] [place] [address]- 1367 Mar, [facility] [place] [facility] [address] [id number] [place] [address]- 3680 Mar, [facility] [place] [facility] [address] [id number] [place] [address]- 1053 Mar, [facility] [place] [facility] [address] [id number] [place] [address]- 4197 Mar, [facility] [place] [facility] [address] [id number] [place] [address]- 8882 Mar, [facility] [place] [facility] [address] [id number] [place] [address]- 5720 Mar, [facility] [place] [facility] [address] [id number] [place] [address]- 6520 Mar, [facility] [place] [facility] [address] [id number] [place] [address]- 4833 Mar, [facility] [place] [facility] [address] [id number] [place] [address]- 8638 February, [facility] [place] [facility] [address] [id number] [place] [address]- 6420 February, [facility] [place] [facility] [address] [id number] [place] [address]- 4996 February, [facility] [place] [facility] [address] [id number] [place] [address]- 8385 February, [facility] [place] [facility] [address] [id number] [place] [address]- 6571 February, [facility] [place] [facility] [address] [id number] [place] [address]- 7877 February, [facility] [place] [facility] [address] [id number] [place] [address]- 4900 February, [facility] [place] [facility] [address] [id number] [place] [address]- 0230 February, [facility] [place] [facility] [address] [id number] [place] [address]- 1267 Jan, [facility] [place] [facility] [address] [id number] [place] [address]- 7082 Jan, [facility] [place] [facility] [address] [id number] [place] [address]- 8501 Dec, [facility] [place] [facility] [address] [id number] [place] [address]- 4648 Dec, [facility] [place] [facility] [address] [id number] [place] [address]- 9630 Dec, [facility] [place] [facility] [address] [id number] [place] [address]- 6146 Dec, [facility] [place] [facility] [address] [id number] [place] [address]- 0376 Dec, [facility] [place] [facility] [address] [id number] [place] [address]- 7228 Dec, [facility] [place] [facility] [address] [id number] [place] [address]- 1910 Dec, [facility] [place] [facility] [address] [id number] [place] [address]- 0157 Dec, [facility] [place] [facility] [address] [id number] [place] [address]- 5476 17 Dec, 2013 [facility] [place] [facility] [address] [id number] [place] [address]- 9974 17 Dec, 2013 [facility] [place] [facility] [address] [id number] [place] [address]- 7814 Dec, [facility] [place] [facility] [address] [id number] [place] [address]- 3914 Dec, [facility] [place] [facility] [address] [id number] [place] [address]- 6305 Dec, [facility] [place] [facility] [address] [id number] [place] [address]- 7110 Dec, [facility] [place] [facility] [address] [id number] [place] [address]- 5343 Nov, [facility] [place] [facility] [address] [id number] [place] [address]- 3990 Nov, [facility] [place] [facility] [address] [id number] [place] [address]- 2591 Oct, [facility] [place] [facility] [address] [id number] [place] [address]- 4880 Oct, [facility] [place] [facility] [address] [id number] [place] [address]- 5073 Oct, [facility] [place] [facility] [address] [id number] [place] [address]- 9229 Oct, [facility] [place] [facility] [address] [id number] [place] [address]- 4829 Oct, [facility] [place] [facility] [address] [id number] [place] [address]- 6196 Oct, [facility] [place] [facility] [address] [id number] [place] [address]- 6678 Oct, [facility] [place] [facility] [address] [id number] [place] [address]- 1665 Sep, [facility] [place] [facility] [address] [id number] [place] [address]- 9880 30 Sep, 2013 [facility] [address] [id number] [place] [address]- 1306 30 Sep, 2013 [facility] [address] [id number] [place] [address]- 8746 Sep, [facility] [address] [id number] [place] [address]- 6946 Sep, [facility] [address] [id number] [place] [address]- 0081 Sep, [facility] [address] [id number] [place] [address]67 Sep, [facility] [address] [id number] [place] [address]- 0172 Sep, [facility] [address] [id number] [place] [address]- 9818 Sep, [facility] [address] [id number] [place] [address]- 6057 Sep, [facility] [address] [id number] [place] [address]- 2130 Sep, [facility] [address] [id number] [place] [address]- 9055 Sep, [facility] [address] [id number] [place] [address] 2542 16 Sep, 2013 [facility] [address] [id number] [place] [address]- 2546 16 Sep, 2013 [facility] [place] [facility] [address] [id number] [place] [address]- 9716 Sep, [facility] [address] [id number] [place] [address]- 2546 Sep, [facility] [address] [id number] [place] [address]127 Sep, [facility] [place] [facility] [address] [id number] [place] [address]- 1063 Sep, [facility] [place] [facility] [address] [id number] [place] [address]- 8077 Sep, [facility] [place] [facility] [address] [id number] [place] [address]- 7778 Aug, [facility] [place] [facility] [address] [id number] [place] [address]- 4483 Aug, [facility] [place] [facility] [address] [id number] [place] [address]- 6830 Aug, [facility] [place] [facility] [address] [id number] [place] [address]- 5760 Aug, [facility] [place] [facility] [address] [id number] [place] [address]- 8822 Aug, [facility] [place] [facility] [address] [id number] [place] [address]- 2059 Aug, [facility] [place] [facility] [address] [id number] [place] [address]- 2819 Aug, [facility] [place] [facility] [address] [id number] [place] [address]- 3942 Aug, [facility] [place] [facility] [address] [id number] [place] [address]- 4929 Aug, [facility] [place] [facility] [address] [id number] [address]- 2853 Aug, [facility] [place] [facility] [address] [id number] [place] [address]- 8600 Aug, [facility] [place] [facility] [address] [id number] [place] [address]- 8890 Aug, [facility] [place] [facility] [address] [id number] [place] [address]- 3721 Aug, [facility] [place] [facility] [address] [id number] [place] [address]- 8555 05 Aug, 2013 [facility] [place] [facility] [address] [id number] [place] [address]- 0225 Aug, 2012 [facility] [place] [facility] [address] [id number] [place] [address]- 3267 Aug, [facility] [place] [facility] [address] [id number] [place] [address]- 1748 Aug, [facility] [place] [facility] [address] [id number] [place] [address]- 0551 Jul, [facility] [place] [facility] [address] [id number] [place] [address]- 5025 Jul, [facility] [place] [facility] [address] [id number] [place] [address]- 5858 Jul, [facility] [place] [facility] [address] [id number] [place] [address]- 3394 Jul, 2012 [facility] [place] [facility] [address] [id number] [place] [address]- 2891 Jul, [facility] [place] [facility] [address] [id number] [place] [address]- 6540 Jul, [facility] [place] [facility] [address] [facility] [id number] [place] [address]- 7971 Jul, [facility] [place] [facility] [address] [id number] [place] [address]- 0058 27 Sep, 2012 [facility] [place] [facility] [address] [id number] [place] [address]- 9622 20 Sep, 2012 [facility] [place] [facility] [address] [id number] [place] [address]- 8200 17 Sep, 2012 [facility] [place] [facility] [address] [id number] [place] [address]- 7349 10 Sep, 2012 [facility] [place] [facility] [address] [facility] [id number] [place] [address]- 0449 06 Sep, 2012 [facility] [place] [facility] [id number] [address]- 5041 06 Jun, 2013 [facility] [id number] [address]- 5533 05 Jun, 2013 [facility] [address] [facility] [id number] [place] [address]- 1356 Jun, [facility] [address] [facility] [id number] [place] [address]- 4694 May, [facility] [address] [facility] [id number] [place] [address]- 7962 May, [facility] [id number] [address]- 1275 May, [facility] [id number] [address]- 8181 May, [facility] [id number] [address]- 9972 May, [facility] [id number] [address]- 2604 May, [facility] [id number] [address]- 1331 May, [facility] [address] [id number] [address]- 2456 May, IMMUNIZATIONS No Known Immunizations SOCIAL HISTORY Never Assessed REASON FOR VISIT Refill Requests PLAN OF CARE VITAL SIGNS MEDICATIONS Medication Instructions Dosage Frequency Start Date End Date Duration Status Fenofibrate 160 MG TAKE ONE TABLET BY MOUTH ONCE DAILY WITH A MEAL 90 Active Pulmicort Flexhaler 90 mcg/act Inhalation Twice a day 2 puffs 12h Active RESULTS No Results PROCEDURES No Known [...] [place] Surgical History bladder surgery-stretch [facility] 2003 Surgical History exploratory laparoscopy [facility] 1995 Surgical History amputation, toe (R great) Surgical History amputation, (R forefoot) 2014 Surgical History amputation, toe Left second 12/2016 Surgical History amputation, 4th left toe 02/2017 Hospitalization History Left foot cellulitis, left 2nd toe amputation-[facility] 12/23 Hospitalization History Surgery Hospitalizations
--- OUTSIDE RECORDS SUMMARY | 2018-08-22 09:00 | XMS REPORT ---
Author Author LUDIVINA STEPHANIE [facility] Address [address] [place] [address] Care Team Providers Care Winemaker Name Role Phone DEE DEE FLORENCEHANY Unavailable PROBLEMS Type Condition ICD9-CM Code QAA66-ED Code Onset Dates Condition Status SNOMED Code Problem Subclinical hypothyroidism E03.9 Active 90384989 Problem Hypertriglyceridemia E78.1 Active 119883204 Problem Type 2 diabetes mellitus with diabetic polyneuropathy E11.42 Active 808577038 Problem Type 2 diabetes mellitus with diabetic chronic 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 Active 056618964 Problem Other chronic pain G89.29 Active 55710665 Problem Type 2 diabetes mellitus with other skin complications E11.628 Active 18114618 Problem Pain in left foot M79.672 Active 53644305 Problem Irregular menstrual cycle N92.6 Active 90116544 Problem Pain in right foot M79.671 Active 07223458 Problem Tonsillolith J35.8 Active 5933817 Problem Chronic prescription opiate use Z79.891 Active 433051408 Problem Seasonal allergic rhinitis due to pollen J30.1 Active 03572284 Problem Asthma exacerbation, mild J45.901 Active 791301057 Problem Chronic kidney disease, stage III (moderate) N18.3 Active 126244779 Problem Chronic migraine G43.709 Active 21438312 Problem Moderate persistent asthma without complication J45.40 Active 716892720 Problem Intrinsic eczema L20.84 Active 78894968 Problem Severe episode of recurrent major depressive disorder, without psychotic features F33.2 Active 47134265 Problem Non-pressure chronic ulcer of right heel and midfoot limited to breakdown of skin L97.411 Active 996710910 Problem Ulcer of right heel L97.419 Active 143576990 Problem Obesity E66.9 Active 988750641 Problem Type 2 diabetes mellitus with foot ulcer E11.621 Active 41221790 Problem Essential hypertension I10 Active 93836351 Problem Anxiety disorder, unspecified F41.9 Active 655214391 Problem Type 2 diabetes mellitus with other specified complication E11.69 Active 349347834 Problem Status post amputation of toe of left foot Z89.422 Active 722084746 Problem DM neuro manif type II E11.49 Active 83478232 Problem History of amputation of hallux Z89.419 Active 631350581 ALLERGIES No Information ENCOUNTERS Encounter Location Date Diagnosis [place] [address] [address] 28 Jun, 2018 [facility] [address] [address] 26 Jun, 2018 [place] [address] [address]- [address] May, [place] [address] 34984- 6979 May, Nausea R11.0 [place] [address] 23150- 1255 May, Other chronic pain G89.29 and Nausea R11.0 [place] [address] 20463- 3232 May, Left genital labial abscess N76.4 and BMI 60.0-69.9, adult Z68.44 [place] [address] [address]- 1898 May, [place] [address] 26712- 0082 Apr, [place] [address] 22419- 7379 Apr, Chronic migraine G43.709 [place] [address] 52821- 7819 Apr, [place] [address] 20983- 6266 Mar, Moderate persistent asthma without complication J45.40 [place] [address] 45777- 9538 Mar, Moderate persistent asthma without complication J45.40 [facility] [address] [address] Mar, [facility] [address] [place] [address] 80555- 0111 February, Chronic migraine G43.709 [facility] [address] [place] [address] 79157- 1341 February, Chronic migraine G43.709 [facility] [id number] [place] [address] 67467- 6732 February, [facility] [id number] [place] [address] 54981- 6399 February, [facility] [address] [place] [address] 63072- 7831 February, Type 2 diabetes mellitus with diabetic polyneuropathy E11.42 ; Moderate persistent asthma without complication J45.40 ; Type 2 diabetes mellitus with foot ulcer E11.621 ; Non-pressure chronic ulcer of right heel and midfoot limited to breakdown of skin L97.411 ; Chronic migraine G43.709 and BMI 60.0-69.9, adult Z68.44 [facility] [address] [address] Jan, Asthma exacerbation, mild J45.901 ; Seasonal allergic rhinitis due to pollen J30.1 and BMI 60.0-69.9, adult Z68.44 [facility] [address] [address] Jan, [facility] [address] [place] [id number] [place] [address] 11606- 7226 Jan, Other chronic pain G89.29 [facility] [address] [place] [address] 21068- 4442 Dec, Type 2 diabetes mellitus with diabetic polyneuropathy E11.42 [facility] [address] [place] [address] [place] [address] 19 Dec, 2017 Type 2 diabetes mellitus with diabetic polyneuropathy E11.42 [place] [address] [address]45- [address] 15 Dec, 2017 [place] [address] 36910- 5154 14 Dec, 2017 [place] [address] 91558- 9640 13 Dec, 2017 Chronic kidney disease, stage III (moderate) N18.3 [facility] [place] [address] [address] 09 Dec, 2017 Nausea R11.0 and Diarrhea, unspecified type R19.7 [place] [address] 49048- 9327 07 Dec, 2017 Chronic kidney disease, stage III (moderate) N18.3 and Type 2 diabetes mellitus with diabetic polyneuropathy E11.42 [place] [address] [place] [id number] [place] [address] 16051- 0069 06 Dec, 2017 [place] [address] 11001- 2487 23 Nov, 2017 Ulcer of right heel L97.419 and Type 2 diabetes mellitus with diabetic polyneuropathy E11.42 [facility] [address] [place] [id number] [place] [id number] Nov, Dental examination Z01.20 [place] [address] [place] [id number] [place] [address] 48807- 1239 Nov, Open wound of right foot, initial encounter S91.301A [facility] [place] [address] [place] [id number] [place] [address] 46795 -1546 Nov, Open wound of right foot, initial encounter S91.301A ; Non- intractable vomiting with nausea, unspecified vomiting type R11.2 and BMI 60.0- 69.9, adult Z68.44 [place] [address] [place] [id number] [place] [address] 99064- 4413 Nov, [place] [address] 33486- 7550 Nov, Other chronic pain G89.29 [place] [address] [place] [id number] [place] [address] 98657- 2353 Oct, Cellulitis of right lower limb L03.115 [place] [address] 89151- 2282 Oct, [place] [address] 70251- 7894 Oct, [place] [address] 09183- 0398 Oct, Cat scratch W55.03XA ; Cellulitis of right lower limb L03.115 ; Acute nasopharyngitis J00 ; BMI 60.0-69.9, adult Z68.44 and Cough R05 [place] [address] [place] [id number] [place] [address] 84393- 3638 Oct, Cat scratch W55.03XA ; Cutaneous abscess of right lower extremity L02.415 and Cellulitis of right lower limb L03.115 [place] [address] [place] [id number] [place] [address] 39847- 9439 Oct, Type 2 diabetes mellitus with diabetic polyneuropathy E11.42 [place] [address] [place] [id number] [place] [address] 45024- 9821 Oct, Other chronic pain G89.29 [place] [address] [place] [id number] [place] [address] 32533- 2710 Aug, [place] [address] [place] [id number] [place] [address] 50303- 3385 Jul, Other chronic pain G89.29 [place] [address] [place] [id number] [place] [address] 68713- 6389 Jul, [place] [address] [place] [id number] [place] [address] 19119- 0097 Jul, Chronic kidney disease, stage III (moderate) N18.3 [place] [address] 95938- 8377 04 Jul, 2017 Type 2 diabetes mellitus with diabetic polyneuropathy E11.42 ; Essential hypertension I10 ; Irregular menstrual cycle N92.6 ; Hypertriglyceridemia E78.1 ; Anxiety disorder, unspecified F41.9 ; Severe episode of recurrent major depressive disorder, without psychotic features F33.2 ; Tonsillolith J35.8 ; Intrinsic eczema L20.84 ; Subclinical hypothyroidism E03.9 ; Viral pharyngitis J02.9 and Encounter for immunization Z23 [place] [address] 83836- 5680 13 Jun, 2017 Essential hypertension I10 [address] 9[address]- 3755 08 Jun, 2017 [place] [address] 51023- 4857 Jun, [place] [address] 07080- 4404 May, Moderate persistent asthma without complication J45.40 [place] [address] 92113- 7783 17 May, 2017 Pain in right foot M79.671 ; Pain in left foot M79.672 ; Other chronic pain G89.29 and Chronic prescription opiate use Z79.891 [place] [address] [place] [id number] [place] [address] 19311- 0445 May, [place] [address] 32026- 1144 May, [place] [address] 17862- 3508 Apr, [place] [address] 36342- 0080 Apr, Chronic migraine G43.709 [place] [address] [place] [address] 79640- 5316 Apr, Essential hypertension I10 ; Hypertriglyceridemia E78.1 and Chronic migraine G43.709 [place] [address] [place] [id number] [place] [address] 99792- 3602 Apr, [place] [address] [place] [id number] [place] [address] 53893- 8968 Apr, Sore throat J02.9 [place] [address] [place] [id number] [place] [address] 85620- 0571 Apr, [place] [address] [place] [id number] [place] [address] 83077- 4554 Mar, Strep pharyngitis J02.0 and Non-intractable vomiting with nausea, unspecified vomiting type R11.2 [place] [address] [place] [id number] [place] [address] 82233- 1740 Mar, [place] [address] [place] [id number] [place] [address] 77249- 9313 Mar, [place] [address] [place] [id number] [place] [address] 28842- 3084 Mar, [place] [address] [place] [id number] [place] [address] 43876- 9564 Mar, Type 2 diabetes mellitus with diabetic polyneuropathy E11.42 ; Moderate persistent asthma without complication J45.40 ; Status post amputation of toe of left foot Z89.422 ; Acute seasonal allergic rhinitis, unspecified trigger J30.2 and Left shoulder pain, unspecified chronicity M25.512 [place] [address] [place] [id number] [place] [address] 51248- 4140 Mar, [place] [address] [place] [id number] [place] [address] 36627- 8882 February, Pre-op evaluation Z01.818 ; Type 2 diabetes mellitus with diabetic polyneuropathy E11.42 and Type 2 diabetes mellitus with foot ulcer E11.621 [place] [address], [place] [address]- 6675 February, [place] [address] [place] [id number] [place] [address] 83025- 6826 February, [place] [address] [place] [id number] [place] [address] 22337- 6724 February, Toe infection L08.9 and Type 2 diabetes mellitus with other specified complication E11.69 [place] [address] [place] [id number] [place] [address] 29075- 1430 February, [place] [address] [place] [id number] [place] [address] 69261- 2838 Jan, Type 2 diabetes mellitus with diabetic polyneuropathy E11.42 [place] [address] [place] [id number] [place] [address] 78133- 5206 Jan, [place] [address] [place] [id number] [place] [address] 33571- 1407 Jan, Right upper quadrant pain R10.11 and Intractable vomiting with nausea, unspecified vomiting type R11.2 [place] [address] [place] [id number] [place] [address] 54440- 1813 Jan, Hypertriglyceridemia E78.1 and Essential hypertension I10 [place] [address] [place] [address] 87344- 8753 07 Jan, 2017 Essential hypertension I10 ; Type 2 diabetes mellitus with diabetic polyneuropathy E11.42 and Hypertriglyceridemia E78.1 [place] [address] [place] [address] 25633- 7045 16 Dec, 2016 Type 2 diabetes mellitus with diabetic polyneuropathy E11.42 [place] [address] [place] [id number] [place] [address] 34525- 6999 Dec, Hypertriglyceridemia E78.1 ; Essential hypertension I10 ; Type 2 diabetes mellitus with diabetic polyneuropathy E11.42 ; Anxiety disorder , unspecified F41.9 and Moderate persistent asthma without complication J45.40 [facility] [address], [place] [address]- 3858 15 Dec, 2016 Type 2 diabetes mellitus with diabetic polyneuropathy E11.42 [facility] [place] [address] [place] [id number] [place] [address] [id number] 07 Dec, 2016 [facility] [address] [place] [id number] [place] [address] 11768- 8442 Nov, [facility] [address] [place] [id number] [place] [address] 99771- 2351 Nov, [place] [address] [place] [id number] [place] [address] 56978- 5144 Nov, [facility] [address] [place] [id number] [place] [address] 73849- 7173 Nov, Toe infection L08.9 [place] [address] [place] [id number] [place] [address] 98895- 7192 Nov, [facility] [address] [place] [address] 70411- 5982 Oct, History of amputation of hallux Z89.419 [facility] [address], [place] [address]- 1462 Oct, Type 2 diabetes mellitus with diabetic polyneuropathy E11.42 [facility] [id number] [place] [address] 75854- 8467 17 Oct, 2016 Type 2 diabetes mellitus with diabetic polyneuropathy E11.42 [facility] [address], [place] [address]- 1475 Oct, Acute osteomyelitis of left foot M86.172 ; Pre-op exam Z01.818 and Type 2 diabetes mellitus with diabetic polyneuropathy E11.42 [facility] [address], [place] [address]- 0043 Oct, Foot ulcer, left, with unspecified severity L97.529 ; Acute osteomyelitis of left foot M86.172 and Type 2 diabetes mellitus with diabetic polyneuropathy E11.42 [facility] [address] [place] [id number] [place] [address] 80233- 3623 Sep, [facility] [address] [place] [id number] [place] [address] 44960- 1572 Sep, Intractable vomiting with nausea, unspecified vomiting type R11.2 and Right upper quadrant pain R10.11 [facility] [address] [place] [id number] [place] [address] 28645- 6759 Aug, [facility] [address] [place] [id number] [place] [address] 37225- 4897 Jul, [facility] [address] [place] [id number] [place] [address] 24621- 8611 Jul, Preop examination Z01.818 [facility] [address] [place] [id number] [place] [address] 60971- 6611 Jul, [facility] [address] [place] [id number] [place] [address] 29049- 7825 Jul, [facility] [address] [place] [id number] [place] [address] 51168- 9144 Jul, Chronic osteomyelitis of left foot M86.672 and Ulcer of left foot, with unspecified severity L97.529 [facility] [address] [place] [id number] [place] [address] 90406- 4112 Jul, Non-pressure chronic ulcer of other part of left foot with unspecified severity L97.529 [facility] [address] [place] [id number] [place] [address] 30829- 3448 Jul, [facility] [address] [place] [id number] [place] [address] 26511- 6371 Jul, [facility] [address] [place] [address] 44335- 6826 Jun, [facility] [address] [place] [id number] [place] [address] 73446- 0891 Jun, [place] [address] [place] [address] 29699- 5745 Jun, [place] [address] [place] [id number] [place] [address] 54337- 4900 Jun, Right upper quadrant pain R10.11 [place] [address] [place] [id number] [place] [address] 28598- 2977 Jun, [place] [address] [place] [id number] [place] [address] 51612- 4667 Jun, Intractable vomiting with nausea, unspecified vomiting type R11.2 [place] [address] 50930- 8512 13 Jun, 2016 Right upper quadrant pain R10.11 ; Migraine with aura and with status migrainosus, not intractable G43.101 and Intractable vomiting with nausea, unspecified vomiting type R11.2 [place] [address] [place] [id number] [place] [address] 76181- 8417 Jun, [place] [address] [place] [id number] [place] [address] 68791- 2620 Jun, Gastroenteritis K52.9 [place] [address] [place] [id number] [place] [address] 85749- 9339 May, [place] [address] [place] [id number] [place] [address] 34340- 4498 May, Hypertriglyceridemia E78.1 ; Essential hypertension I10 ; Type 2 diabetes mellitus with diabetic polyneuropathy E11.42 ; Moderate persistent asthma without complication J45.40 ; Type 2 diabetes mellitus with foot ulcer E11.621 ; Other chronic pain G89.29 ; Pain in right leg M79.604 ; Pain of left leg M79.605 ; Rash and nonspecific skin eruption R21 and Anxiety disorder, unspecified F41.9 [place] [address] [place] [address] 23744- 5789 May, Essential hypertension I10 ; Hypertriglyceridemia E78.1 ; Upper respiratory infection J06.9 ; Subclinical hypothyroidism E03.9 and Type 2 diabetes mellitus with diabetic polyneuropathy E11.42 [place] [address] [place] [id number] [place] [address] 27655- 6583 Apr, Hypertriglyceridemia E78.1 ; Subclinical hypothyroidism E03.9 ; Essential hypertension I10 and Type 2 diabetes mellitus with diabetic polyneuropathy E11.42 [place] [address] [place] [id number] [place] [address] 62530- 6007 Mar, [facility] [address] [place] [id number] [place] [address] 13934- 3396 Mar, Ulcer of right heel L97.419 [place] [address] [place] [id number] [place] [address] 91978- 0709 Mar, [place] [address] [place] [id number] [place] [address] 10380- 7085 Mar, [place] [address] [place] [id number] [place] [address] 77874- 7117 February, [place] [address] [place] [id number] [place] [address] 86127- 8946 February, Ulcer of right heel L97.419 and DM neuro manif type II E11.49 [place] [address] [place] [id number] [place] [address] 88036- 6987 Jan, [place] [address] [place] [id number] [place] [address] 64401- 8829 Jan, Ulcer of right heel L97.419 ; Type 2 diabetes mellitus with foot ulcer E11.621 and Non-pressure chronic ulcer of other part of left foot with unspecified severity L97.529 [place] [address] [place] [id number] [place] [address] 71469- 5577 Jan, [facility] [address] [place] [id number] [place] [address] 59962- 2505 Jan, [facility] [address] [place] [id number] [place] [address] 48207- 3894 Jan, Infection of toenail L03.039 [facility] [address] [place] [id number] [place] [address] 09945- 6040 Jan, Blister of toe of left foot, initial encounter S90.425A and Type 2 diabetes mellitus with diabetic polyneuropathy E11.42 [facility] [address] [place] [id number] [place] [address] 38556- 4178 Jan, [facility] [address] [place] [id number] [place] [address] 81886 -0726 Jan, Sore throat J02.9 and Strep pharyngitis J02.0 [place] [address] 06058- 9769 Dec, Type 2 diabetes mellitus with diabetic polyneuropathy E11.42 ; Upper respiratory infection J06.9 ; Cough R05 and Asthma exacerbation J45.901 [place] [address] [place] [id number] [place] [address] 55835- 5963 Oct, [place] [address] [place] [id number] [place] [address] 91656- 7199 Oct, [place] [address] [place] [id number] [place] [address] 55911- 9382 Oct, [facility] [address] [place] [id number] [place] [address] 42739- 4842 Oct, [place] [address] [place] [id number] [place] [address] 29712- 2713 Sep, [place] [address] [place] [id number] [place] [address] 59572- 3991 Aug, Anxiety disorder, unspecified F41.9 and Obesity E66.9 [facility] [address] [place] [id number] [place] [address] 14459- 5960 Aug, Moderate persistent asthma without complication J45.40 [place] [address] [place] [id number] [place] [address] 22659- 4010 Aug, Anxiety disorder, unspecified F41.9 [place] [id number] [place] [address] 94710- 6122 Aug, Chronic migraine G43.709 ; Encounter for immunization Z23 ; Hypertriglyceridemia E78.1 ; Type 2 diabetes mellitus with diabetic polyneuropathy E11.42 ; Moderate persistent asthma without complication J45.40 and Morbid obesity E66.[address] 10614- 2338 Jul, [address] 54575- 4845 Jul, [address] 32900- 8817 Jul, [address] 63557- 4292 Jul, Subclinical hypothyroidism E03.[address] 09640- 1842 Jun, Essential hypertension, benign 401.1 ; Diabetic ulcer of lower extremity 250.80 ; Asthma 493.90 ; Diabetes mellitus type II, uncontrolled 250.02 and Hyperlipidemia associated with type 2 diabetes mellitus 250.80 [place] [id number] [place] [address] 33782- 8268 Jun, [place] [id number] [place] [address] 43717- 5068 Jun, [place] [address] 24988- 4068 May, [address] 39520- 4184 Apr, [address] 61500- 7285 Apr, Viral upper respiratory infection 465.9 and Asthma 493.[address] 29125- 6324 Mar, Abnormal ankle brachial index 796.4 [facility] [address] [address]- 3645 February, [facility] [id number] [place] [address] 06611- 1188 February, Essential hypertension, benign 401.1 [facility] [address] [place] [id number] [place] [address] 87321- 8552 February, Diabetic peripheral neuropathy 250.60 ; Ulcer of heel and midfoot 707.14 and Decreased pedal pulses 785.9 [facility] [address] [place] [address] 90647- 0236 February, [facility] [address] [place] [id number] [place] [address] 83359- 3291 February, [facility] [id number] [place] [address] [id number]- [id number] Jan, [facility] [id number] [place] [address] [id number]- [phone] Jan, [facility] [id number] [place] [address] 48629- 4388 Dec, [facility] [id number] [place] [address] [id number]- [id number] Dec, [facility] [id number] [address] Nov, [facility] [id number] [address] Nov, [facility] [id number] [address] Nov, [facility] [id number] [place] [address] [id number]- [phone] Nov, [facility] [id number] [address] Nov, [facility] [place] [facility] [address] [id number] [place] [address] Nov, [facility] [place] [facility] [address] [address] [id number] [place] [address] Nov, [facility] [place] [facility] [address] [id number] [place] [address] Nov, [facility] [place] [facility] [address] [id number] [place] [address] 9[address] Nov, [facility] [place] [facility] [address] [id number] [place] [address] Oct, [facility] [place] [facility] [address] [id number] [place] [address] 1973 Oct, [facility] [place] [facility] [address] [id number] [place] [address] Oct, [facility] [place] [facility] [address] [id number] [place] [address] 3880 Oct, [facility] [place] [facility] [address] [id number] [place] [address] 0429 Oct, [facility] [place] [facility] [address] [id number] [place] [address] 0748 Oct, [facility] [place] [facility] [address] [id number] [place] [address] 1563 Oct, [facility] [place] [facility] [address] [id number] [place] [address] 4171 Oct, [facility] [place] [facility] [address] [id number] [place] [address] 4146 Oct, [facility] [place] [facility] [address] [id number] [place] [address] 1455 Oct, [facility] [place] [facility] [address] [id number] [place] [address]- 6162 Oct, [facility] [place] [facility] [address] [id number] [place] [address] 8576 Oct, [facility] [address] [id number] [place] [address] 6122 Oct, [facility] [place] [facility] [address] [id number] [place] [address] 9904 Sep, [facility] [place] [facility] [address] [id number] [place] [address] Sep, [facility] [place] [facility] [address] [id number] [place] [address]- 6869 Sep, [facility] [place] [facility] [address] [id number] [place] [address]- 1051 Sep, [facility] [place] [facility] [address] [id number] [place] [address] 8800 Sep, [facility] [place] [facility] [address] [id number] [place] [address]- 4484 Sep, [facility] [place] [facility] [address] [id number] [place] [address]- 0742 Sep, [facility] [place] [facility] [address] [id number] [place] [address]- 6347 Sep, [facility] [place] [facility] [address] [id number] [place] [address]- 4222 Sep, [facility] [place] [facility] [address] [id number] [place] [address]- 6371 Sep, [facility] [place] [facility] [address] [id number] [place] [address]- 6864 Sep, [facility] [place] [facility] [address] [id number] [place] [address] Sep, [facility] [place] [facility] [address] [id number] [place] [address] Sep, [facility] [place] [facility] [address] [id number] [place] [address]- 9914 Sep, [facility] [place] [facility] [address] [id number] [place] [address]- 9730 Sep, [facility] [place] [facility] [address] [id number] [place] [address] Sep, [facility] [place] [facility] [address] [id number] [place] [address]- 2455 Aug, [facility] [place] [facility] [address] [id number] [place] [address] Aug, [facility] [place] [facility] [address] [id number] [place] [address]- 9490 Aug, [facility] [place] [facility] [address] [id number] [place] [address]- 1179 Aug, [facility] [place] [facility] [address] [id number] [place] [address]- 1448 Aug, [facility] [place] [facility] [address] [id number] [place] [address]- 5726 Aug, [facility] [place] [facility] [address] [id number] [place] [address]- 1573 Aug, [facility] [place] [facility] [address] [id number] [place] [address]- 3363 Aug, [facility] [place] [facility] [address] [facility] [id number] [place] [address] 4027 Jul, [facility] [place] [facility] [address] [id number] [place] [address] 3033 31 Jul, 2014 [facility] [place] [facility] [address] [id number] [place] [address]- 5382 30 Jul, 2014 [facility] [place] [facility] [address] [id number] [place] [address] 7970 15 Jul, 2014 [facility] [place] [facility] [address] [id number] [place] [address] Jul, [facility] [place] [facility] [address] [id number] [place] [address]- 9981 Jun, [facility] [place] [facility] [address] [id number] [place] [address]- 5531 Jun, [facility] [place] [facility] [address] [id number] [place] [address]- 7967 Jun, [facility] [place] [facility] [address] [id number] [place] [address]- 6595 Jun, [facility] [place] [facility] [address] [id number] [place] [address]- 6635 Jun, [facility] [place] [facility] [address] [id number] [place] [address]- 4005 May, [facility] [place] [facility] [address] [id number] [place] [address]- 7165 May, [facility] [place] [facility] [address] [id number] [place] [address]- 4656 Apr, [facility] [place] [facility] [address] [id number] [place] [address]- 6190 Apr, [facility] [place] [facility] [address] [id number] [place] [address]- 2823 Apr, [facility] [place] [facility] [address] [id number] [place] [address]- 4022 Apr, [facility] [place] [facility] [address] [id number] [place] [address]- 2966 Apr, [facility] [place] [facility] [address] [id number] [place] [address]- 0417 Apr, [facility] [place] [facility] [address] [id number] [place] [address]- 8342 Mar, [facility] [place] [facility] [address] [id number] [place] [address]- 1773 Mar, [facility] [place] [facility] [address] [id number] [place] [address]- 8602 Mar, [facility] [place] [facility] [address] [id number] [place] [address]- 8859 Mar, [facility] [place] [facility] [address] [id number] [place] [address]- 3954 Mar, [facility] [place] [facility] [address] [id number] [place] [address]- 3179 Mar, [facility] [place] [facility] [address] [id number] [place] [address]- 8828 Mar, [facility] [place] [facility] [address] [id number] [place] [address]- 4195 Mar, [facility] [place] [facility] [address] [id number] [place] [address]- 3622 Mar, [facility] [place] [facility] [address] [id number] [place] [address]- 8595 Mar, [facility] [place] [facility] [address] [id number] [place] [address]- 1001 Mar, [facility] [place] [facility] [address] [id number] [place] [address]- 2134 Mar, [facility] [place] [facility] [address] [id number] [place] [address]- 5487 Mar, [facility] [place] [facility] [address] [id number] [place] [address]- 4531 Mar, [facility] [place] [facility] [address] [id number] [place] [address]- 5476 Mar, [facility] [place] [facility] [address] [id number] [place] [address]- 5635 Mar, [facility] [place] [facility] [address] [id number] [place] [address]- 7452 February, [facility] [place] [facility] [address] [id number] [place] [address]- 7048 February, [facility] [place] [facility] [address] [id number] [place] [address]- 7510 February, [facility] [place] [facility] [address] [id number] [place] [address]- 0095 February, [facility] [place] [facility] [address] [id number] [place] [address]- 8727 February, [facility] [place] [facility] [address] [id number] [place] [address]- 5144 February, [facility] [place] [facility] [address] [id number] [place] [address]- 9437 February, [facility] [place] [facility] [address] [id number] [place] [address]- 9987 February, [facility] [place] [facility] [address] [id number] [place] [address]- 3911 Jan, [facility] [place] [facility] [address] [id number] [place] [address]- 9297 Jan, [facility] [place] [facility] [address] [id number] [place] [address]- 7364 Dec, [facility] [place] [facility] [address] [id number] [place] [address]- 1131 Dec, [facility] [place] [facility] [address] [id number] [place] [address]- 7652 Dec, [facility] [place] [facility] [address] [id number] [place] [address]- 8980 Dec, [facility] [place] [facility] [address] [id number] [place] [address]- 9808 Dec, [facility] [place] [facility] [address] [id number] [place] [address]- 4746 Dec, [facility] [place] [facility] [address] [id number] [place] [address]- 6710 Dec, [facility] [place] [facility] [address] [id number] [place] [address]- 5001 Dec, [facility] [place] [facility] [address] [id number] [place] [address]- 3266 17 Dec, 2013 [facility] [place] [facility] [address] [id number] [place] [address]- 1582 17 Dec, 2013 [facility] [place] [facility] [address] [id number] [place] [address]- 4158 Dec, [facility] [place] [facility] [address] [id number] [place] [address]- 5054 Dec, [facility] [place] [facility] [address] [id number] [place] [address]- 1081 Dec, [facility] [place] [facility] [address] [id number] [place] [address]- 5604 Dec, [facility] [place] [facility] [address] [id number] [place] [address]- 7460 Nov, [facility] [place] [facility] [address] [id number] [place] [address]- 9826 Nov, [facility] [place] [facility] [address] [id number] [place] [address]- 6281 Oct, [facility] [place] [facility] [address] [id number] [place] [address]- 1281 Oct, [facility] [place] [facility] [address] [id number] [place] [address]- 8020 Oct, [facility] [place] [facility] [address] [id number] [place] [address]- 8205 Oct, [facility] [place] [facility] [address] [id number] [place] [address]- 3286 Oct, [facility] [place] [facility] [address] [id number] [place] [address]- 0603 Oct, [facility] [place] [facility] [address] [id number] [place] [address]- 4737 Oct, [facility] [place] [facility] [address] [id number] [place] [address]- 7850 Sep, [facility] [place] [facility] [address] [id number] [place] [address]- 4818 30 Sep, 2013 [facility] [address] [id number] [place] [address]- 9176 30 Sep, 2013 [facility] [address] [id number] [place] [address]- 7816 Sep, [facility] [address] [id number] [place] [address]- 2746 Sep, [facility] [address] [id number] [place] [address]- 0860 Sep, [facility] [address] [id number] [place] [address] Sep, [facility] [address] [id number] [place] [address]- 7023 Sep, [facility] [address] [id number] [place] [address]- 7080 Sep, [facility] [address] [id number] [place] [address]- 7876 Sep, [facility] [address] [id number] [place] [address]- 5866 Sep, [facility] [address] [id number] [place] [address]- 7091 Sep, [facility] [address] [id number] [place] [address] 2542 16 Sep, 2013 [facility] [address] [id number] [place] [address]- 2546 16 Sep, 2013 [facility] [place] [facility] [address] [id number] [place] [address]- 6476 Sep, [facility] [address] [id number] [place] [address]- 2546 Sep, [facility] [address] [id number] [place] [address]105 Sep, [facility] [place] [facility] [address] [id number] [place] [address]- 8155 Sep, [facility] [place] [facility] [address] [id number] [place] [address]- 9756 Sep, [facility] [place] [facility] [address] [id number] [place] [address]- 2635 Aug, [facility] [place] [facility] [address] [id number] [place] [address]- 2596 Aug, [facility] [place] [facility] [address] [id number] [place] [address]- 1416 Aug, [facility] [place] [facility] [address] [id number] [place] [address]- 3287 Aug, [facility] [place] [facility] [address] [id number] [place] [address]- 5877 Aug, [facility] [place] [facility] [address] [id number] [place] [address]- 7744 Aug, [facility] [place] [facility] [address] [id number] [place] [address]- 6409 Aug, [facility] [place] [facility] [address] [id number] [place] [address]- 2916 Aug, [facility] [place] [facility] [address] [id number] [place] [address]- 7752 Aug, [facility] [place] [facility] [address] [id number], [place] [address]- 6438 Aug, [facility] [place] [facility] [address] [id number] [place] [address]- 6264 Aug, [facility] [place] [facility] [address] [id number] [place] [address]- 7640 Aug, [facility] [place] [facility] [address] [id number] [place] [address]- 6587 Aug, [facility] [place] [facility] [address] [id number] [place] [address]- 7186 05 Aug, 2013 [facility] [place] [facility] [address] [id number] [place] [address]- 9771 Aug, 2012 [facility] [place] [facility] [address] [id number] [place] [address]- 4128 Aug, [facility] [place] [facility] [address] [id number] [place] [address]- 8175 Aug, [facility] [place] [facility] [address] [id number] [place] [address]- 5352 Jul, [facility] [place] [facility] [address] [id number] [place] [address]- 8303 Jul, [facility] [place] [facility] [address] [id number] [place] [address]- 2209 Jul, [facility] [place] [facility] [address] [id number] [place] [address]- 8781 Jul, 2012 [facility] [place] [facility] [address] [id number] [place] [address]- 2948 Jul, [facility] [place] [facility] [address] [id number] [place] [address]- 4413 Jul, [facility] [place] [facility] [address] [facility] [id number] [place] [address]- 3213 Jul, [facility] [place] [facility] [address] [id number] [place] [address]- 6665 27 Sep, 2012 [facility] [place] [facility] [address] [id number], [place] [address]- 4781 20 Sep, 2012 [facility] [place] [facility] [address] [id number] [place] [address]- 0554 17 Sep, 2012 [facility] [place] [facility] [address] [id number] [place] [address]- 9961 10 Sep, 2012 [facility] [place] [facility] [address] [facility] [id number], [place] [address]- 7307 06 Sep, 2012 [facility] [place] [facility] [address] [id number] [address]- 8261 06 Jun, 2013 [facility] [address] [id number] [address]- 3530 05 Jun, 2013 [facility] [address] [facility] [id number], [place] [address]- 3526 Jun, [facility] [id number], [place] [address]- 0354 May, [facility] [address] [facility] [id number], [place] [address]- 8789 May, [facility] [id number], [place] [address]- 1065 May, [facility] [id number], [place] [address]- 5776 May, [facility] [id number], [place] [address]- 9607 May, [facility] [id number], [place] [address]- 0398 May, [facility] [id number], [place] [address]- 6690 May, [facility] [address] [id number], [place] [address]- 2664 May, IMMUNIZATIONS No Known Immunizations SOCIAL HISTORY Never Assessed REASON FOR VISIT Refill Request PLAN OF CARE VITAL SIGNS MEDICATIONS Medication Instructions Dosage Frequency Start Date End Date Duration Status Gabapentin 600 MG Orally 3 times a day 1 capsule 8h 90 days Active RESULTS No Results PROCEDURES No Known [...] History Left foot cellulitis, left 2nd toe amputation-[facility] 12/23 Hospitalization History Surgery Hospitalizations
--- OUTSIDE RECORDS SUMMARY | 2018-08-22 09:01 | XMS REPORT ---
Author Author LUDIVINA STEPHANIE [facility] Address [address] [place] [address] Care Team Providers Care Station Engineer Main Line Name Role Phone FARNAZ FLORENCEY Unavailable PROBLEMS Type Condition ICD9-CM Code [id number] Code Onset Dates Condition Status SNOMED Code Problem Subclinical hypothyroidism E03.9 Active 92612227 Problem Hypertriglyceridemia E78.1 Active 246613614 Problem Type 2 diabetes mellitus with diabetic polyneuropathy E11.42 Active 047932314 Problem Type 2 diabetes mellitus with diabetic chronic 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 Active 141139005 Problem Other chronic pain G89.29 Active 50943247 Problem Type 2 diabetes mellitus with other skin complications E11.628 Active 88825735 Problem Pain in left foot M79.672 Active 45053790 Problem Irregular menstrual cycle N92.6 Active 48340990 Problem Pain in right foot M79.671 Active 85053545 Problem Tonsillolith J35.8 Active 5809864 Problem Chronic prescription opiate use Z79.891 Active 670687499 Problem Seasonal allergic rhinitis due to pollen J30.1 Active 89729130 Problem Asthma exacerbation, mild J45.901 Active 831152918 Problem Chronic kidney disease, stage III (moderate) N18.3 Active 153461908 Problem Chronic migraine G43.709 Active 61188180 Problem Moderate persistent asthma without complication J45.40 Active 272805769 Problem Intrinsic eczema L20.84 Active 25709613 Problem Severe episode of recurrent major depressive disorder, without psychotic features F33.2 Active 38431019 Problem Non-pressure chronic ulcer of right heel and midfoot limited to breakdown of skin L97.411 Active 344699695 Problem Ulcer of right heel L97.419 Active 695826031 Problem Obesity E66.9 Active 939337356 Problem Type 2 diabetes mellitus with foot ulcer E11.621 Active 42468778 Problem Essential hypertension I10 Active 36206011 Problem Anxiety disorder, unspecified F41.9 Active 120075909 Problem Type 2 diabetes mellitus with other specified complication E11.69 Active 894130599 Problem Status post amputation of toe of left foot Z89.422 Active 469001133 Problem DM neuro manif type II E11.49 Active 83256945 Problem History of amputation of hallux Z89.419 Active 861071950 ALLERGIES No Information ENCOUNTERS Encounter Location Date Diagnosis [facility] [address] [address]86- 2761 26 Jun, 2018 [facility] [address] 84188- 7597 08 May, 2018 [place] [address] 09528- 7671 07 May, 2018 Nausea R11.0 [place] [address] 59104- 3183 May, Other chronic pain G89.29 and Nausea R11.0 [place] [address] 72658- 2577 May, Left genital labial abscess N76.4 and BMI 60.0-69.9, adult Z68.44 [place] [address] 09759- 6090 May, [place] [address] [place] [id number] [place] [address] 15467- 8565 Apr, [place] [address] [place] [id number] [place] [address] 82108- 5311 Apr, Chronic migraine G43.709 [facility] [address] [place] [id number] [place] [address] 48276- 4969 Apr, [place] [address] 22779- 8087 Mar, Moderate persistent asthma without complication J45.40 [place] [address] [place] [id number] [place] [address] 80824- 9459 07 Mar, 2018 Moderate persistent asthma without complication J45.40 [place] [address] [place] [address] [address] 1197 Mar, [facility] [address] [place] [address] 26501- 2353 February, Chronic migraine G43.709 [facility] [address] [address] 1716 February, Chronic migraine G43.709 [facility] [address] [place] [id number] [place] [address] 02477- 5671 February, [facility] [address] [place] [address] 99014- 5485 February, [place] [address] [place] [id number] [place] [address] 83678- 3632 February, Type 2 diabetes mellitus with diabetic polyneuropathy E11.42 ; Moderate persistent asthma without complication J45.40 ; Type 2 diabetes mellitus with foot ulcer E11.621 ; Non-pressure chronic ulcer of right heel and midfoot limited to breakdown of skin L97.411 ; Chronic migraine G43.709 and BMI 60.0-69.9, adult Z68.44 [facility] [address] [place] [id number] [place] [address] 90478 -2205 Jan, Asthma exacerbation, mild J45.901 ; Seasonal allergic rhinitis due to pollen J30.1 and BMI 60.0-69.9, adult Z68.44 [facility] [address] [place] [address] 77893- 9527 Jan, [facility] [address] [place] [id number] [place] [address] 43707- 4202 Jan, Other chronic pain G89.29 [place] [address] [place] [id number] [place] [address] 28993- 3820 Dec, Type 2 diabetes mellitus with diabetic polyneuropathy E11.42 [facility] [address] [place] [id number] [place] [address] 78121- 9031 Dec, Type 2 diabetes mellitus with diabetic polyneuropathy E11.42 [place] [address] [place] [address] 16331- 9705 15 Dec, 2017 [place] [address] 63618- 0380 14 Dec, 2017 [place] [address] [place] [id number] [place] [address] 71265- 0697 13 Dec, 2017 Chronic kidney disease, stage III (moderate) N18.3 [facility] [place] [address] [place] [id number] [place] [address] 96428 -5563 09 Dec, 2017 Nausea R11.0 and Diarrhea, unspecified type R19.7 [place] [address] 28218- 7378 07 Dec, 2017 Chronic kidney disease, stage III (moderate) N18.3 and Type 2 diabetes mellitus with diabetic polyneuropathy E11.42 [place] [address] [place] [id number] [place] [address] 90615- 1513 06 Dec, 2017 [place] [address] [place] [id number] [place] [address] 16955- 7262 Nov, Ulcer of right heel L97.419 and Type 2 diabetes mellitus with diabetic polyneuropathy E11.42 [facility] [address] [id number] [place] [address] [id number] Nov, Dental examination Z01.20 [place] [address] [place] [id number] [place] [address] 29318- 6296 Nov, Open wound of right foot, initial encounter S91.301A [facility] [address] [place] [address] 78283 -3573 Nov, Open wound of right foot, initial encounter S91.301A ; Non- intractable vomiting with nausea, unspecified vomiting type R11.2 and BMI 60.0- 69.9, adult Z68.44 [place] [address] [place] [id number] [place] [address] 02860- 8548 Nov, [place] [address] [place] [id number] [place] [address] 31046- 7035 Nov, Other chronic pain G89.29 [place] [address] [place] [id number] [place] [address] 50147- 9713 Oct, Cellulitis of right lower limb L03.115 [place] [address] [place] [id number] [place] [address] 23541- 3416 Oct, [place] [address] 82594- 4295 Oct, [place] [address] 13084- 8831 Oct, Cat scratch W55.03XA ; Cellulitis of right lower limb L03.115 ; Acute nasopharyngitis J00 ; BMI 60.0-69.9, adult Z68.44 and Cough R05 [address] 43714- 6465 Oct, Cat scratch W55.03XA ; Cutaneous abscess of right lower extremity L02.415 and Cellulitis of right lower limb L03.115 [place] [address] [place] [id number] [place] [address] 26533- 2585 Oct, Type 2 diabetes mellitus with diabetic polyneuropathy E11.42 [place] [address] [place] [id number] [place] [address] 85675- 0424 Oct, Other chronic pain G89.29 [place] [address] [place] [id number] [place] [address] 91060- 0995 Aug, [place] [address] [place] [id number] [place] [address] 22656- 2250 Jul, Other chronic pain G89.29 [place] [address] [place] [id number] [place] [address] 99938- 9113 Jul, [place] [address] [place] [id number] [place] [address] 97578- 2049 Jul, Chronic kidney disease, stage III (moderate) N18.3 [place] [address] 97531- 6767 04 Jul, 2017 Type 2 diabetes mellitus with diabetic polyneuropathy E11.42 ; Essential hypertension I10 ; Irregular menstrual cycle N92.6 ; Hypertriglyceridemia E78.1 ; Anxiety disorder, unspecified F41.9 ; Severe episode of recurrent major depressive disorder, without psychotic features F33.2 ; Tonsillolith J35.8 ; Intrinsic eczema L20.84 ; Subclinical hypothyroidism E03.9 ; Viral pharyngitis J02.9 and Encounter for immunization Z23 [place] [address] 66963- 7635 13 Jun, 2017 Essential hypertension I10 [place] [address] 85773- 7944 08 Jun, 2017 [place] [address] 32224- 9493 07 Jun, 2017 [place] [address] 15488- 6846 May, Moderate persistent asthma without complication J45.[address] 69232- 3957 17 May, 2017 Pain in right foot M79.671 ; Pain in left foot M79.672 ; Other chronic pain G89.29 and Chronic prescription opiate use Z79.891 [place] [address] 49400- 5318 May, [place] [address] 92957- 9332 May, [place] [address] 36317- 8895 Apr, [place] [address] 09781- 1960 Apr, Chronic migraine G43.709 [place] [address] [place] [address]- 1868 Apr, Essential hypertension I10 ; Hypertriglyceridemia E78.1 and Chronic migraine G43.709 [place] [address] [place] [id number] [place] [address] 17950- 7813 Apr, [place] [address] [place] [id number] [place] [address] 78803- 8488 Apr, Sore throat J02.9 [place] [address] [place] [id number] [place] [address] 98944- 7878 Apr, [place] [address] [place] [id number] [place] [address] 74190- 2089 Mar, Strep pharyngitis J02.0 and Non-intractable vomiting with nausea, unspecified vomiting type R11.2 [place] [address] [place] [id number] [place] [address] 09754- 4295 Mar, [place] [address] [place] [id number] [place] [address] 33487- 7329 Mar, [place] [address] [place] [id number] [place] [address] 33313- 4811 Mar, [place] [address] [place] [id number] [place] [address] 16580- 7419 Mar, Type 2 diabetes mellitus with diabetic polyneuropathy E11.42 ; Moderate persistent asthma without complication J45.40 ; Status post amputation of toe of left foot Z89.422 ; Acute seasonal allergic rhinitis, unspecified trigger J30.2 and Left shoulder pain, unspecified chronicity M25.512 [place] [address] [place] [id number] [place] [address] 30009- 5864 Mar, [place] [address] 35105- 6977 February, Pre-op evaluation Z01.818 ; Type 2 diabetes mellitus with diabetic polyneuropathy E11.42 and Type 2 diabetes mellitus with foot ulcer E11.621 [place] [address] [place] [id number] [place] [address] 81018- 8473 February, [place] [address] [place] [id number] [place] [address] 19939- 2393 February, [place] [address] [place] [id number] [place] [address] 35026- 1812 February, Toe infection L08.9 and Type 2 diabetes mellitus with other specified complication E11.69 [place] [address] [place] [id number] [place] [address] 82528- 4479 February, [place] [address] [place] [id number] [place] [address] 64394- 2751 Jan, Type 2 diabetes mellitus with diabetic polyneuropathy E11.42 [place] [address] [place] [id number] [place] [address] 01990- 1791 Jan, [place] [address] [place] [id number] [place] [address] 49273- 1236 Jan, Right upper quadrant pain R10.11 and Intractable vomiting with nausea, unspecified vomiting type R11.2 [place] [address] [place] [id number] [place] [address] 51087- 0171 Jan, Hypertriglyceridemia E78.1 and Essential hypertension I10 [place] [address] [place] [id number] [place] [address] 05596- 1123 07 Jan, 2017 Essential hypertension I10 ; Type 2 diabetes mellitus with diabetic polyneuropathy E11.42 and Hypertriglyceridemia E78.1 [place] [address] [place] [id number] [place] [address] 81306- 2696 Dec, Type 2 diabetes mellitus with diabetic polyneuropathy E11.42 [place] [address] [place] [id number] [place] [address] 92830- 1119 Dec, Hypertriglyceridemia E78.1 ; Essential hypertension I10 ; Type 2 diabetes mellitus with diabetic polyneuropathy E11.42 ; Anxiety disorder , unspecified F41.9 and Moderate persistent asthma without complication J45.40 [place] [address] [place] [id number] [place] [address] 27297- 6240 Dec, Type 2 diabetes mellitus with diabetic polyneuropathy E11.42 [facility] [address] [id number] [place] [address] [id number] Dec, [facility] [address] [place] [address] 07251- 0198 Nov, [facility] [address] [place] [address] 48222- 2418 Nov, [facility] [address] [place] [id number] [place] [address] 91564- 3614 Nov, [facility] [address] [place] [id number] [place] [address] 11821- 5789 Nov, Toe infection L08.9 [facility] [address] [place] [id number] [place] [address] 44697- 9879 Nov, [facility] [address] [place] [id number] [place] [address] 23565- 8160 Oct, History of amputation of hallux Z89.419 [facility] [address] [place] [address] 23108- 0022 Oct, Type 2 diabetes mellitus with diabetic polyneuropathy E11.42 [facility] [address] [place] [address] 53820- 5515 Oct, Type 2 diabetes mellitus with diabetic polyneuropathy E11.42 [facility] [address] [place] [address] 56261- 5486 Oct, Acute osteomyelitis of left foot M86.172 ; Pre-op exam Z01.818 and Type 2 diabetes mellitus with diabetic polyneuropathy E11.42 [facility] [address] [place] [address] 69585- 8308 Oct, Foot ulcer, left, with unspecified severity L97.529 ; Acute osteomyelitis of left foot M86.172 and Type 2 diabetes mellitus with diabetic polyneuropathy E11.42 [facility] [address] [id number] [address]- 3109 Sep, [facility] [address] [place] [id number] [place] [address] 78034- 9278 Sep, Intractable vomiting with nausea, unspecified vomiting type R11.2 and Right upper quadrant pain R10.11 [facility] [address] [place] [id number] [place] [address] 31411- 4438 Aug, [facility] [address] [place] [id number] [place] [address] 56027- 0628 Jul, [facility] [address] [place] [id number] [place] [address] 39508- 3735 Jul, Preop examination Z01.818 [facility] [address] [place] [id number] [place] [address] 84154- 3105 Jul, [facility] [address] [id number] [place] [address] 18159- 3089 Jul, [facility] [address] [place] [id number] [place] [address] 79333- 3282 Jul, Chronic osteomyelitis of left foot M86.672 and Ulcer of left foot, with unspecified severity L97.529 [facility] [id number] [address]- 4372 Jul, Non-pressure chronic ulcer of other part of left foot with unspecified severity L97.529 [facility] [address] [id number] [place] [address] 27582- 8708 Jul, [facility] [address] [place] [id number] [place] [address] 00372- 9371 Jul, [facility] [address] [address] [id number] [place] [address] 10027- 6712 Jun, [facility] [address] [place] [address] 07705- 9297 Jun, [facility] [address] [place] [id number] [place] [address] 90714- 0126 Jun, [place] [address] [place] [address] 87586- 2007 Jun, Right upper quadrant pain R10.11 [place] [address] [place] [id number] [place] [address] 86529- 6885 Jun, [place] [address] [place] [id number] [place] [address] 96868- 6436 Jun, Intractable vomiting with nausea, unspecified vomiting type R11.2 [place] [address] [place] [id number] [place] [address] 89296- 6804 13 Jun, 2016 Right upper quadrant pain R10.11 ; Migraine with aura and with status migrainosus, not intractable G43.101 and Intractable vomiting with nausea, unspecified vomiting type R11.2 [place] [address] [place] [id number] [place] [address] 68904- 2836 Jun, [place] [address] [place] [id number] [place] [address] 86740- 8402 Jun, Gastroenteritis K52.9 [place] [address] [place] [id number] [place] [address] 25434- 1655 May, [place] [address] [place] [id number] [place] [address] 87378- 6820 May, Hypertriglyceridemia E78.1 ; Essential hypertension I10 ; Type 2 diabetes mellitus with diabetic polyneuropathy E11.42 ; Moderate persistent asthma without complication J45.40 ; Type 2 diabetes mellitus with foot ulcer E11.621 ; Other chronic pain G89.29 ; Pain in right leg M79.604 ; Pain of left leg M79.605 ; Rash and nonspecific skin eruption R21 and Anxiety disorder, unspecified F41.9 [place] [address] [place] [id number] [place] [address] 05175- 7101 May, Essential hypertension I10 ; Hypertriglyceridemia E78.1 ; Upper respiratory infection J06.9 ; Subclinical hypothyroidism E03.9 and Type 2 diabetes mellitus with diabetic polyneuropathy E11.[id number] [place] [address] 69253- 8547 Apr, Hypertriglyceridemia E78.1 ; Subclinical hypothyroidism E03.9 ; Essential hypertension I10 and Type 2 diabetes mellitus with diabetic polyneuropathy E11.42 [facility] [id number] [place] [address] 60364- 2153 Mar, [facility] [address] [place] [id number] [place] [address] 96803- 5352 Mar, Ulcer of right heel L97.419 [facility] [address] [place] [id number] [place] [address] 29983- 5638 Mar, [place] [address] [place] [id number] [place] [address] 63645- 7980 Mar, [facility] [address] [place] [id number] [place] [address] 76731- 7808 February, [place] [address] [place] [id number] [place] [address] 44506- 9076 February, Ulcer of right heel L97.419 and DM neuro manif type II E11.49 [place] [address] [place] [id number] [place] [address] 48826- 7518 Jan, [place] [address] [place] [id number] [place] [address] 35734- 4360 Jan, Ulcer of right heel L97.419 ; Type 2 diabetes mellitus with foot ulcer E11.621 and Non-pressure chronic ulcer of other part of left foot with unspecified severity L97.529 [facility] [address] [place] [address] 53295- 0594 Jan, [facility] [address] [place] [id number] [place] [address] 98083- 0469 Jan, [facility] [address] [place] [address] 44835- 3390 Jan, Infection of toenail L03.039 [place] [address] [place] [id number] [place] [address] 79218- 8109 14 Jan, 2016 Blister of toe of left foot, initial encounter S90.425A and Type 2 diabetes mellitus with diabetic polyneuropathy E11.42 [facility] [id number] [place] [address] 70157- 6350 13 Jan, 2016 [facility] [id number] [place] [address] 46093 -5557 Jan, Sore throat J02.9 and Strep pharyngitis J02.0 [facility] [address] [id number] [place] [address] 04436- 2352 Dec, Type 2 diabetes mellitus with diabetic polyneuropathy E11.42 ; Upper respiratory infection J06.9 ; Cough R05 and Asthma exacerbation J45.901 [place] [address] [place] [id number] [place] [address] 49679- 6647 Oct, [place] [address] 86750- 6699 Oct, [facility] [id number] [place] [address] 13416- 5885 Oct, [facility] [id number] [place] [address] 05390- 9983 Oct, [place] [address] [id number] [place] [address] 52480- 8403 Sep, [facility] [id number] [place] [address] 51750- 2305 Aug, Anxiety disorder, unspecified F41.9 and Obesity E66.9 [place] [address] 83607- 5544 Aug, Moderate persistent asthma without complication J45.40 [place] [address] [id number] [place] [address] 46745- 1382 Aug, Anxiety disorder, unspecified F41.9 [facility] [address] 24838- 8110 Aug, Encounter for immunization Z23 ; Chronic migraine G43.709 ; Hypertriglyceridemia E78.1 ; Type 2 diabetes mellitus with diabetic polyneuropathy E11.42 ; Moderate persistent asthma without complication J45.40 and Morbid obesity E66.01 [place] [id number] [place] [address] 19252- 4664 Jul, [place] [address] 62619- 8228 Jul, [place] [address] [place] [id number] [place] [address] 95550- 6718 Jul, [address] 18494- 2653 Jul, Subclinical hypothyroidism E03.[address] 25974- 2027 Jun, Essential hypertension, benign 401.1 ; Diabetic ulcer of lower extremity 250.80 ; Asthma 493.90 ; Diabetes mellitus type II, uncontrolled 250.02 and Hyperlipidemia associated with type 2 diabetes mellitus [address] 87622- 0743 Jun, [place] [address] [place] [id number] [place] [address] 04922- 0124 Jun, [place] [address] [place] [address] [id number] [place] [address] 05208- 8037 May, [place] [address] 30805- 1901 Apr, [address] 02844- 8040 Apr, Viral upper respiratory infection 465.9 and Asthma 493.[address] 48548- 4081 Mar, Abnormal ankle brachial index 796.[address] 34354- 5563 February, [facility] [address] [address]- 7499 February, Essential hypertension, benign 401.1 [facility] [address] [address]- 3161 February, Diabetic peripheral neuropathy 250.60 ; Ulcer of heel and midfoot 707.14 and Decreased pedal pulses 785.9 [facility] [id number], [place] [address] February, [facility] [id number] [place] [address] February, [facility] [id number] [place] [id number] Jan, [facility] [id number] [place] [address] Jan, [facility] [id number] [address] Dec, [facility] [id number] [address] Dec, [facility] [address] [id number] [address] Nov, [facility] [id number], [place] [address] Nov, [facility] [id number], [place] [address] Nov, [facility] [id number], [place] [address] Nov, [facility] [id number], [place] [address] Nov, [facility] [id number], [place] [address] Nov, [facility] [place] [facility] [address] [id number] [place] [address] 3079 Nov, [facility] [place] [facility] [address] [id number] [place] [address]- 7862 Nov, [facility] [place] [facility] [address] [id number] [place] [address]- 7332 Nov, [facility] [place] [facility] [address] [id number] [place] [address] 9670 Oct, [facility] [place] [facility] [address] [id number] [place] [address] 1972 Oct, [facility] [place] [facility] [address] [id number] [place] [address]- 6481 Oct, [facility] [place] [facility] [address] [id number] [place] [address]- 0962 Oct, [facility] [place] [facility] [address] [id number] [place] [address]- 0393 Oct, [facility] [place] [facility] [address] [id number] [place] [address]- 9867 Oct, [facility] [place] [facility] [address] [id number] [place] [address]- 1181 Oct, [facility] [place] [facility] [address] [id number] [place] [address]- 9252 Oct, [facility] [place] [facility] [address] [id number], [place] [address] Oct, [facility] [place] [facility] [address] [id number] [place] [address]- 9881 Oct, [facility] [place] [facility] [address] [id number] [place] [address]- 6732 Oct, [facility] [place] [facility] [address] [id number], [place] [address] Oct, [facility] [place] [facility] [address] [id number], [place] [address] 98[address] Oct, [facility] [address] [id number] [place] [address]- 0907 Sep, [facility] [place] [facility] [address] [id number] [place] [address]- 5384 Sep, [facility] [place] [facility] [address] [id number] [place] [address]- 7186 Sep, [facility] [place] [facility] [address] [id number] [place] [address]- 8478 Sep, [facility] [place] [facility] [address] [id number] [place] [address]- 8850 Sep, [facility] [place] [facility] [address] [id number] [place] [address]- 8622 Sep, [facility] [place] [facility] [address] [id number] [place] [address]- 2039 Sep, [facility] [place] [facility] [address] [id number] [place] [address]- 6525 Sep, [facility] [place] [facility] [address] [id number] [place] [address]- 1594 Sep, [facility] [place] [facility] [address] [id number] [place] [address]- 4433 Sep, [facility] [place] [facility] [address] [id number] [place] [address]- 4896 Sep, [facility] [place] [facility] [address] [id number] [place] [address]- 1423 Sep, [facility] [place] [facility] [address] [id number] [place] [address]- 9363 Sep, [facility] [place] [facility] [address] [id number] [place] [address]- 5076 Sep, [facility] [place] [facility] [address] [id number] [place] [address]- 1356 Sep, [facility] [place] [facility] [address] [id number] [place] [address]- 1235 Sep, [facility] [place] [facility] [address] [id number] [place] [address]- 9425 Aug, [facility] [place] [facility] [address] [id number] [place] [address]- 7675 Aug, [facility] [place] [facility] [address] [id number] [place] [address]- 5305 Aug, [facility] [place] [facility] [address] [id number] [place] [address]- 7234 Aug, [facility] [place] [facility] [address] [id number] [place] [address]- 7395 Aug, [facility] [place] [facility] [address] [id number] [place] [address]- 5260 Aug, [facility] [place] [facility] [address] [id number] [place] [address]- 5358 Aug, [facility] [place] [facility] [address] [id number] [place] [address]- 3264 Aug, [facility] [place] [facility] [address] [id number] [place] [address]- 8102 Jul, [facility] [place] [facility] [address] [id number] [place] [address]- 9071 Jul, [facility] [place] [facility] [address] [id number] [place] [address]- 9369 30 Jul, 2014 [facility] [place] [facility] [address] [id number] [place] [address]- 7723 15 Jul, 2014 [facility] [place] [facility] [address] [id number] [place] [address] 15 Jul, 2014 [facility] [place] [facility] [address] [id number] [place] [address]- 8973 Jun, [facility] [place] [facility] [address] [id number] [place] [address]- 2974 Jun, [facility] [place] [facility] [address] [id number] [place] [address]- 5866 Jun, [facility] [place] [facility] [address] [id number] [place] [address]- 8879 Jun, [facility] [place] [facility] [address] [id number] [place] [address]- 6485 Jun, [facility] [place] [facility] [address] [id number] [place] [address]- 5690 May, [facility] [place] [facility] [address] [id number] [place] [address]- 3787 May, [facility] [place] [facility] [address] [id number] [place] [address]- 8220 Apr, [facility] [place] [facility] [address] [id number] [place] [address]- 8162 Apr, [facility] [place] [facility] [address] [id number] [place] [address]- 7444 Apr, [facility] [place] [facility] [address] [id number] [place] [address]- 1463 Apr, [facility] [place] [facility] [address] [id number] [place] [address]- 8051 Apr, [facility] [place] [facility] [address] [id number] [place] [address]- 5361 Apr, [facility] [place] [facility] [address] [id number] [place] [address]- 7953 Mar, [facility] [place] [facility] [address] [id number] [place] [address]- 2032 Mar, [facility] [place] [facility] [address] [id number] [place] [address]- 1485 Mar, [facility] [place] [facility] [address] [id number] [place] [address]- 2377 Mar, [facility] [place] [facility] [address] [id number] [place] [address]- 6113 Mar, [facility] [place] [facility] [address] [id number] [place] [address]- 4152 Mar, [facility] [place] [facility] [address] [id number] [place] [address]- 0379 Mar, [facility] [place] [facility] [address] [id number] [place] [address]- 8853 Mar, [facility] [place] [facility] [address] [id number] [place] [address]- 9624 Mar, [facility] [place] [facility] [address] [id number] [place] [address]- 7947 Mar, [facility] [place] [facility] [address] [id number] [place] [address]- 0985 Mar, [facility] [place] [facility] [address] [id number] [place] [address]- 6844 Mar, [facility] [place] [facility] [address] [id number] [place] [address]- 2185 Mar, [facility] [place] [facility] [address] [id number] [place] [address]- 8344 Mar, [facility] [place] [facility] [address] [id number] [place] [address]- 5208 Mar, [facility] [place] [facility] [address] [id number] [place] [address]- 0386 Mar, [facility] [place] [facility] [address] [id number] [place] [address]- 9681 February, [facility] [place] [facility] [address] [id number] [place] [address]- 8729 February, [facility] [place] [facility] [address] [id number] [place] [address]- 1271 February, [facility] [place] [facility] [address] [id number] [place] [address]- 0812 February, [facility] [place] [facility] [address] [id number] [place] [address]- 9947 February, [facility] [place] [facility] [address] [id number] [place] [address]- 0783 February, [facility] [place] [facility] [address] [id number] [place] [address]- 3996 February, [facility] [place] [facility] [address] [id number] [place] [address]- 8646 February, [facility] [place] [facility] [address] [id number] [place] [address]- 1524 Jan, [facility] [place] [facility] [address] [id number] [place] [address]- 5714 Jan, [facility] [place] [facility] [address] [id number] [place] [address]- 9499 Dec, [facility] [place] [facility] [address] [id number] [place] [address]- 0332 Dec, [facility] [place] [facility] [address] [id number] [place] [address]- 4925 Dec, [facility] [place] [facility] [address] [id number] [place] [address]- 2740 Dec, [facility] [place] [facility] [address] [id number] [place] [address]- 8492 Dec, [facility] [place] [facility] [address] [id number] [place] [address]- 9060 Dec, [facility] [place] [facility] [address] [id number] [place] [address]- 3362 Dec, [facility] [place] [facility] [address] [id number] [place] [address]- 8432 Dec, [facility] [place] [facility] [address] [id number] [place] [address]- 0603 17 Dec, 2013 [facility] [place] [facility] [address] [id number] [place] [address]- 4946 17 Dec, 2013 [facility] [place] [facility] [address] [id number] [place] [address]- 7187 Dec, [facility] [place] [facility] [address] [id number] [place] [address]- 8509 14 Dec, 2013 [facility] [place] [facility] [address] [id number] [place] [address]- 9238 Dec, [facility] [place] [facility] [address] [id number] [place] [address]- 8791 Dec, [facility] [place] [facility] [address] [id number] [place] [address]- 1534 Nov, [facility] [place] [facility] [address] [id number] [place] [address]- 1522 Nov, [facility] [place] [facility] [address] [id number] [place] [address]- 0733 Oct, [facility] [place] [facility] [address] [id number] [place] [address]- 4234 Oct, [facility] [place] [facility] [address] [id number] [place] [address]- 2767 Oct, [facility] [place] [facility] [address] [id number] [place] [address]- 4511 Oct, [facility] [place] [facility] [address] [id number] [place] [address]- 7935 Oct, [facility] [place] [facility] [address] [id number] [place] [address]- 5887 Oct, [facility] [place] [facility] [address] [id number] [place] [address]- 5898 Oct, [facility] [place] [facility] [address] [id number] [place] [address]- 0267 Sep, [facility] [place] [facility] [address] [id number] [place] [address]- 8555 30 Sep, 2013 [facility] [place] [facility] [address] [id number] [place] [address]- 9362 30 Sep, 2013 [facility] [address] [id number] [place] [address]- 7756 29 Sep, 2013 [facility] [address] [id number] [place] [address]- 5716 Sep, [facility] [address] [id number] [place] [address]- 9546 Sep, [facility] [address] [id number] [place] [address]- 0884 Sep, [facility] [address] [id number] [place] Sep, [facility] [address] [id number] [place] [address]- 2932 Sep, [facility] [address] [id number] [place] [address]- 4398 Sep, [facility] [address] [id number] [place] [address]- 7773 Sep, [facility] [address] [id number] [place] [address]- 6739 Sep, [facility] [address] [id number] [place] [address]- 9879 16 Sep, 2013 [facility] [address] [id number] [place] [address]- 2541 16 Sep, 2013 [facility] [address] [id number] [place] [address]- 2546 Sep, [facility] [address] [id number] [place] [address]- 4286 Sep, [facility] [address] [id number] [place] [address]66 Sep, [facility] [address] [id number] [id number] [address] Sep, [facility] [place] [facility] [address] [id number] [place] [address]- 8902 Sep, [facility] [place] [facility] [address] [id number] [place] [address]- 2706 Aug, [facility] [place] [facility] [address] [id number] [place] [address]- 0620 Aug, [facility] [place] [facility] [address] [id number] [place] [address]- 5959 Aug, [facility] [place] [facility] [address] [id number] [place] [address]- 1703 Aug, [facility] [place] [facility] [address] [id number] [place] [address]- 7571 Aug, [facility] [place] [facility] [address] [id number] [place] [address]- 3917 Aug, [facility] [place] [facility] [address] [id number] [place] [address]- 1570 Aug, [facility] [place] [facility] [address] [id number] [place] [address]- 5418 Aug, [facility] [place] [facility] [address] [id number] [place] [address]- 8855 Aug, [facility] [place] [facility] [address] [id number], [place] [address]- 3371 Aug, [facility] [place] [facility] [address] [id number], [place] [address]- 7290 Aug, [facility] [place] [facility] [address] [id number] [place] [address]- 6317 Aug, [facility] [place] [facility] [address] [id number], [place] [address]- 4316 Aug, [facility] [place] [facility] [address] [id number], [place] [address]- 7591 Aug, [facility] [place] [facility] [address] [id number] [place] [address]- 8043 Aug, 2012 [facility] [place] [facility] [address] [id number] [place] [address]- 8342 Aug, 2012 [facility] [place] [facility] [address] [id number] [place] [address]- 1893 Aug, [facility] [place] [facility] [address] [id number] [place] [address]- 9426 Jul, 2012 [facility] [place] [facility] [address] [id number] [place] [address]- 4432 Jul, 2012 [facility] [place] [facility] [address] [id number] [place] [address]80 Jul, 2012 [facility] [place] [facility] [address] [id number] [place] [address]- 7316 Jul, 2012 [facility] [place] [facility] [address] [id number] [place] [address]- 5489 Jul, 2012 [facility] [place] [facility] [address] [id number] [place] [address]- 4655 Jul, [facility] [place] [facility] [address] [id number] [place] [address]- 1876 Jul, [facility] [place] [facility] [address] [id number] [place] [address]- 3636 27 Jun, 2012 [facility] [place] [facility] [address] [id number] [place] [address]- 9426 20 Sep, 2012 [facility] [place] [facility] [address] [id number], [place] [address]- 3567 17 Sep, 2012 [facility] [place] [facility] [address] [id number], [place] [address]- 5793 10 Sep, 2012 [facility] [place] [facility] [address] [id number], [place] [address]- 8898 06 Sep, 2012 [facility] [place] [facility] [address] [id number], [place] [address]- 7822 06 Sep, 2012 [facility] [place] [facility] [address] [id number] [address] 5729 Jun, [facility] [address], [place] [address]- 7200 Jun, [facility] [address], [place] [address]- 7440 May, [facility] [id number], [place] [address]- 3255 May, [facility] [id number], [place] [address]- 8496 May, [facility] [id number], [place] [address]- 7340 May, [facility] [address], [place] [address]- 8629 May, [facility] [address], [place] [address]- 1781 May, [facility] [id number], [place] [address]- 6996 May, [facility] [address] [id number], [place] [address]- 3950 May, IMMUNIZATIONS No Known Immunizations SOCIAL HISTORY Never Assessed REASON FOR VISIT Medication Request-Imitrex PLAN OF CARE VITAL SIGNS MEDICATIONS Medication [...]
--- OUTSIDE RECORDS SUMMARY | 2018-08-22 09:01 | XMS REPORT ---
Author Author LUDIVINA STEPHANIE [facility] Address [address] [place] [address] Care Team Providers Care Automatic Seamer Name Role Phone FARNAZ FLORENCEY Unavailable PROBLEMS Type Condition ICD9-CM Code SCZ40-OI Code Onset Dates Condition Status SNOMED Code Problem Subclinical hypothyroidism E03.9 Active 62266239 Problem Hypertriglyceridemia E78.1 Active 452657951 Problem Type 2 diabetes mellitus with diabetic polyneuropathy E11.42 Active 651518079 Problem Type 2 diabetes mellitus with diabetic chronic 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 Active 771926443 Problem Other chronic pain G89.29 Active 11203222 Problem Type 2 diabetes mellitus with other skin complications E11.628 Active 05166955 Problem Pain in left foot M79.672 Active 59969161 Problem Irregular menstrual cycle N92.6 Active 73266422 Problem Pain in right foot M79.671 Active 29058353 Problem Tonsillolith J35.8 Active 5785781 Problem Chronic prescription opiate use Z79.891 Active 302420384 Problem Seasonal allergic rhinitis due to pollen J30.1 Active 51884923 Problem Asthma exacerbation, mild J45.901 Active 704773855 Problem Chronic kidney disease, stage III (moderate) N18.3 Active 371760520 Problem Chronic migraine G43.709 Active 88510393 Problem Moderate persistent asthma without complication J45.40 Active 489835558 Problem Intrinsic eczema L20.84 Active 35976485 Problem Severe episode of recurrent major depressive disorder, without psychotic features F33.2 Active 13116529 Problem Non-pressure chronic ulcer of right heel and midfoot limited to breakdown of skin L97.411 Active 948117468 Problem Ulcer of right heel L97.419 Active 136053760 Problem Obesity E66.9 Active 725043185 Problem Type 2 diabetes mellitus with foot ulcer E11.621 Active 63841037 Problem Essential hypertension I10 Active 94701906 Problem Anxiety disorder, unspecified F41.9 Active 132688409 Problem Type 2 diabetes mellitus with other specified complication E11.69 Active 984146146 Problem Status post amputation of toe of left foot Z89.422 Active 286842878 Problem DM neuro manif type II E11.49 Active 93232545 Problem History of amputation of hallux Z89.419 Active 327008609 ALLERGIES No Information ENCOUNTERS Encounter Location Date Diagnosis [place] [id number] [address] 28 Jun, 2018 [facility] [address] [address]33- [address]83 26 Jun, 2018 [place] [address] 87553- 9295 May, [place] [address] 52210- 8534 May, Nausea R11.0 [place] [address] 80439- 0476 May, Other chronic pain G89.29 and Nausea R11.0 [place] [address] 82551- 9949 May, Left genital labial abscess N76.4 and BMI 60.0-69.9, adult Z68.44 [place] [address] 37424- 5506 May, [place] [address] 03211- 4956 Apr, [place] [address] 49107- 2420 Apr, Chronic migraine G43.709 [place] [address] 52644- 9903 Apr, [place] [address] 55576- 9686 Mar, Moderate persistent asthma without complication J45.40 [place] [address] 33231- 9721 Mar, Moderate persistent asthma without complication J45.40 [facility] [address] [address] Mar, [facility] [id number] [place] [address] 81100- 1519 February, Chronic migraine G43.709 [facility] [id number] [place] [address] 41068- 9223 February, Chronic migraine G43.709 [facility] [id number] [place] [address] 29567- 8084 February, [facility] [id number] [place] [address] 77182- 9869 February, [facility] [id number] [place] [address] 53724- 8116 February, Type 2 diabetes mellitus with diabetic polyneuropathy E11.42 ; Moderate persistent asthma without complication J45.40 ; Type 2 diabetes mellitus with foot ulcer E11.621 ; Non-pressure chronic ulcer of right heel and midfoot limited to breakdown of skin L97.411 ; Chronic migraine G43.709 and BMI 60.0-69.9, adult Z68.44 [facility] [address] [address] Jan, Asthma exacerbation, mild J45.901 ; Seasonal allergic rhinitis due to pollen J30.1 and BMI 60.0-69.9, adult Z68.44 [facility] [address] [address] 4769 Jan, [facility] [address] [place] [id number] [place] [address] 41130- 7772 Jan, Other chronic pain G89.29 [facility] [id number] [place] [address] 93444- 9159 Dec, Type 2 diabetes mellitus with diabetic polyneuropathy E11.42 [facility] [address] [place] [id number] [place] [address] 9[address] 19 Dec, 2017 Type 2 diabetes mellitus with diabetic polyneuropathy E11.42 [place] [address] 92936- 3798 15 Dec, 2017 [place] [address] 55684- 0987 14 Dec, 2017 [place] [address] 52588- 5543 13 Dec, 2017 Chronic kidney disease, stage III (moderate) N18.3 [facility] [place] [address] [address] -[address]659 09 Dec, 2017 Nausea R11.0 and Diarrhea, unspecified type R19.7 [place] [address] 36026- 6509 07 Dec, 2017 Chronic kidney disease, stage III (moderate) N18.3 and Type 2 diabetes mellitus with diabetic polyneuropathy E11.42 [place] [address] [place] [id number] [place] [address] 66307- 5528 06 Dec, 2017 [place] [address] 80357- 2317 23 Nov, 2017 Ulcer of right heel L97.419 and Type 2 diabetes mellitus with diabetic polyneuropathy E11.42 [facility] [address] [place] [id number] [place] [address] [id number] Nov, Dental examination Z01.20 [place] [address] [place] [id number] [place] [address] 30066- 3517 Nov, Open wound of right foot, initial encounter S91.301A [facility] [place] [address] [place] [id number] [place] [address] 26319 -7692 Nov, Open wound of right foot, initial encounter S91.301A ; Non- intractable vomiting with nausea, unspecified vomiting type R11.2 and BMI 60.0- 69.9, adult Z68.44 [place] [address] [place] [id number] [place] [address] 28525- 7585 Nov, [place] [address] 10693- 9836 Nov, Other chronic pain G89.29 [place] [address] [place] [id number] [place] [address] 28508- 6611 Oct, Cellulitis of right lower limb L03.115 [place] [address] 96919- 7790 Oct, [place] [address] 56586- 1009 Oct, [place] [address] 78191- 0267 Oct, Cat scratch W55.03XA ; Cellulitis of right lower limb L03.115 ; Acute nasopharyngitis J00 ; BMI 60.0-69.9, adult Z68.44 and Cough R05 [place] [address] [place] [id number] [place] [address] 67225- 3780 Oct, Cat scratch W55.03XA ; Cutaneous abscess of right lower extremity L02.415 and Cellulitis of right lower limb L03.115 [place] [address] [place] [id number] [place] [address] 23526- 7188 Oct, Type 2 diabetes mellitus with diabetic polyneuropathy E11.42 [place] [address] [place] [id number] [place] [address] 19164- 0774 Oct, Other chronic pain G89.29 [place] [address] [place] [id number] [place] [address] 68052- 5403 Aug, [place] [address] [place] [id number] [place] [address] 09599- 2099 Jul, Other chronic pain G89.29 [place] [address] [place] [id number] [place] [address] 64080- 0489 Jul, [place] [address] [place] [id number] [place] [address] 30825- 6711 Jul, Chronic kidney disease, stage III (moderate) N18.3 [place] [address] 60664- 3718 04 Jul, 2017 Type 2 diabetes mellitus with diabetic polyneuropathy E11.42 ; Essential hypertension I10 ; Irregular menstrual cycle N92.6 ; Hypertriglyceridemia E78.1 ; Anxiety disorder, unspecified F41.9 ; Severe episode of recurrent major depressive disorder, without psychotic features F33.2 ; Tonsillolith J35.8 ; Intrinsic eczema L20.84 ; Subclinical hypothyroidism E03.9 ; Viral pharyngitis J02.9 and Encounter for immunization Z23 [place] [address] 60943- 3161 13 Jun, 2017 Essential hypertension I10 [address] 03542- 9571 08 Jun, 2017 [place] [address] 37311- 5809 Jun, [place] [address] 87356- 3755 May, Moderate persistent asthma without complication J45.40 [place] [address] 17795- 5684 17 May, 2017 Pain in right foot M79.671 ; Pain in left foot M79.672 ; Other chronic pain G89.29 and Chronic prescription opiate use Z79.891 [place] [address] [place] [id number] [place] [address] 82161- 3606 May, [place] [address] 79776- 4430 May, [place] [address] 28064- 9162 Apr, [place] [address] 81759- 8612 Apr, Chronic migraine G43.709 [place] [id number] [place] [address] 16706- 5226 Apr, Essential hypertension I10 ; Hypertriglyceridemia E78.1 and Chronic migraine G43.709 [place] [address] [place] [id number] [place] [address] 30533- 2541 Apr, [place] [address] [place] [id number] [place] [address] 23544- 9546 Apr, Sore throat J02.9 [place] [address] [place] [id number] [place] [address] 18479- 4090 Apr, [place] [address] [place] [id number] [place] [address] 90857- 9885 Mar, Strep pharyngitis J02.0 and Non-intractable vomiting with nausea, unspecified vomiting type R11.2 [place] [address] [place] [id number] [place] [address] 39268- 5062 Mar, [place] [address] [place] [id number] [place] [address] 78827- 7701 Mar, [place] [address] [place] [id number] [place] [address] 36572- 4573 Mar, [place] [address] [place] [id number] [place] [address] 01362- 2721 Mar, Type 2 diabetes mellitus with diabetic polyneuropathy E11.42 ; Moderate persistent asthma without complication J45.40 ; Status post amputation of toe of left foot Z89.422 ; Acute seasonal allergic rhinitis, unspecified trigger J30.2 and Left shoulder pain, unspecified chronicity M25.512 [place] [address] [place] [id number] [place] [address] 64734- 7294 Mar, [place] [address] [place] [id number] [place] [address] 65529- 7791 February, Pre-op evaluation Z01.818 ; Type 2 diabetes mellitus with diabetic polyneuropathy E11.42 and Type 2 diabetes mellitus with foot ulcer E11.621 [place] [address] [address]- 1753 February, [place] [address] [place] [id number] [place] [address] 06397- 2884 February, [place] [address] [place] [id number] [place] [address] 77970- 2457 February, Toe infection L08.9 and Type 2 diabetes mellitus with other specified complication E11.69 [place] [address] [place] [id number] [place] [address] 19887- 6627 February, [place] [address] [place] [id number] [place] [address] 49397- 2773 Jan, Type 2 diabetes mellitus with diabetic polyneuropathy E11.42 [place] [address] [place] [id number] [place] [address] 01572- 0318 Jan, [place] [address] [place] [id number] [place] [address] 49724- 9793 Jan, Right upper quadrant pain R10.11 and Intractable vomiting with nausea, unspecified vomiting type R11.2 [place] [address] [place] [id number] [place] [address] 91952- 9973 Jan, Hypertriglyceridemia E78.1 and Essential hypertension I10 [place] [id number] [place] [address] 02280- 7421 07 Jan, 2017 Essential hypertension I10 ; Type 2 diabetes mellitus with diabetic polyneuropathy E11.42 and Hypertriglyceridemia E78.1 [place] [id number] [place] [address] 22036- 7146 16 Dec, 2016 Type 2 diabetes mellitus with diabetic polyneuropathy E11.42 [place] [address] [place] [id number] [place] [address] 05592- 0308 Dec, Hypertriglyceridemia E78.1 ; Essential hypertension I10 ; Type 2 diabetes mellitus with diabetic polyneuropathy E11.42 ; Anxiety disorder , unspecified F41.9 and Moderate persistent asthma without complication J45.40 [facility] [address] [address]- 1419 15 Dec, 2016 Type 2 diabetes mellitus with diabetic polyneuropathy E11.42 [facility] [address] [place] [id number] [place] [address] [id number] 07 Dec, 2016 [facility] [address] [place] [id number] [place] [address] 23462- 2034 Nov, [facility] [address] [place] [id number] [place] [address] 17286- 3965 Nov, [place] [address] [place] [id number] [place] [address] 25962- 2373 Nov, [facility] [address] [place] [id number] [place] [address] 16191- 5335 Nov, Toe infection L08.9 [place] [address] [place] [id number] [place] [address] 39337- 7596 Nov, [facility] [id number] [place] [address] 74776- 5686 Oct, History of amputation of hallux Z89.419 [facility] [address] [address]- 8554 Oct, Type 2 diabetes mellitus with diabetic polyneuropathy E11.42 [facility] [id number] [place] [address] 96879- 3641 17 Oct, 2016 Type 2 diabetes mellitus with diabetic polyneuropathy E11.42 [facility] [address] [address]- 7884 Oct, Acute osteomyelitis of left foot M86.172 ; Pre-op exam Z01.818 and Type 2 diabetes mellitus with diabetic polyneuropathy E11.42 [facility] [address] [address]- 6065 Oct, Foot ulcer, left, with unspecified severity L97.529 ; Acute osteomyelitis of left foot M86.172 and Type 2 diabetes mellitus with diabetic polyneuropathy E11.42 [facility] [address] [place] [id number] [place] [address] 37559- 4176 Sep, [facility] [address] [place] [id number] [place] [address] 46911- 9672 Sep, Intractable vomiting with nausea, unspecified vomiting type R11.2 and Right upper quadrant pain R10.11 [facility] [address] [place] [id number] [place] [address] 62980- 6198 Aug, [facility] [address] [place] [id number] [place] [address] 77884- 5331 Jul, [facility] [address] [place] [id number] [place] [address] 78263- 2306 Jul, Preop examination Z01.818 [facility] [address] [place] [id number] [place] [address] 89310- 9605 Jul, [facility] [address] [place] [id number] [place] [address] 55308- 3206 Jul, [facility] [address] [place] [id number] [place] [address] 58413- 1387 Jul, Chronic osteomyelitis of left foot M86.672 and Ulcer of left foot, with unspecified severity L97.529 [facility] [address] [place] [id number] [place] [address] 31014- 2751 Jul, Non-pressure chronic ulcer of other part of left foot with unspecified severity L97.529 [facility] [address] [place] [id number] [place] [address] 07320- 9415 Jul, [facility] [address] [place] [id number] [place] [address] 55974- 5494 Jul, [facility] [id number] [place] [address] 21735- 1674 Jun, [facility] [address] [place] [id number] [place] [address] 45215- 9351 Jun, [place] [id number] [place] [address] 34659- 1165 Jun, [place] [address] [place] [id number] [place] [address] 28213- 9728 Jun, Right upper quadrant pain R10.11 [place] [address] [place] [id number] [place] [address] 98798- 6316 Jun, [place] [address] [place] [id number] [place] [address] 18949- 9099 Jun, Intractable vomiting with nausea, unspecified vomiting type R11.2 [place] [address] 34614- 8051 13 Jun, 2016 Right upper quadrant pain R10.11 ; Migraine with aura and with status migrainosus, not intractable G43.101 and Intractable vomiting with nausea, unspecified vomiting type R11.2 [place] [address] [place] [id number] [place] [address] 85928- 0528 Jun, [place] [address] [place] [id number] [place] [address] 37475- 7379 Jun, Gastroenteritis K52.9 [place] [address] [place] [id number] [place] [address] 24994- 3909 May, [place] [address] [place] [id number] [place] [address] 82380- 0882 May, Hypertriglyceridemia E78.1 ; Essential hypertension I10 ; Type 2 diabetes mellitus with diabetic polyneuropathy E11.42 ; Moderate persistent asthma without complication J45.40 ; Type 2 diabetes mellitus with foot ulcer E11.621 ; Other chronic pain G89.29 ; Pain in right leg M79.604 ; Pain of left leg M79.605 ; Rash and nonspecific skin eruption R21 and Anxiety disorder, unspecified F41.9 [place] [id number] [place] [address] 73213- 6261 May, Essential hypertension I10 ; Hypertriglyceridemia E78.1 ; Upper respiratory infection J06.9 ; Subclinical hypothyroidism E03.9 and Type 2 diabetes mellitus with diabetic polyneuropathy E11.42 [place] [address] [place] [id number] [place] [address] 85061- 9894 Apr, Hypertriglyceridemia E78.1 ; Subclinical hypothyroidism E03.9 ; Essential hypertension I10 and Type 2 diabetes mellitus with diabetic polyneuropathy E11.42 [place] [address] [place] [id number] [place] [address] 01126- 7180 Mar, [facility] [address] [place] [id number] [place] [address] 94477- 7890 Mar, Ulcer of right heel L97.419 [place] [address] [place] [id number] [place] [address] 91435- 6432 Mar, [place] [address] [place] [id number] [place] [address] 70360- 2379 Mar, [place] [address] [place] [id number] [place] [address] 97459- 8374 February, [place] [address] [place] [id number] [place] [address] 16879- 5662 February, Ulcer of right heel L97.419 and DM neuro manif type II E11.49 [place] [address] [place] [id number] [place] [address] 92407- 8215 Jan, [place] [address] [place] [id number] [place] [address] 82082- 8195 Jan, Ulcer of right heel L97.419 ; Type 2 diabetes mellitus with foot ulcer E11.621 and Non-pressure chronic ulcer of other part of left foot with unspecified severity L97.529 [place] [address] [place] [id number] [place] [address] 40102- 9826 Jan, [facility] [address] [place] [id number] [place] [address] 84816- 9745 Jan, [facility] [address] [place] [id number] [place] [address] 72862- 5238 Jan, Infection of toenail L03.039 [facility] [address] [place] [id number] [place] [address] 98438- 9036 Jan, Blister of toe of left foot, initial encounter S90.425A and Type 2 diabetes mellitus with diabetic polyneuropathy E11.42 [facility] [address] [place] [id number] [place] [address] 19585- 1760 Jan, [facility] [address] [place] [id number] [place] [address] 29683 -9370 Jan, Sore throat J02.9 and Strep pharyngitis J02.0 [place] [address] 67410- 2559 Dec, Type 2 diabetes mellitus with diabetic polyneuropathy E11.42 ; Upper respiratory infection J06.9 ; Cough R05 and Asthma exacerbation J45.901 [place] [address] [place] [id number] [place] [address] 96890- 5459 Oct, [place] [address] [place] [id number] [place] [address] 14950- 6663 Oct, [place] [address] [place] [id number] [place] [address] 94450- 6801 Oct, [facility] [address] [place] [id number] [place] [address] 11303- 7465 Oct, [place] [address] [place] [id number] [place] [address] 78291- 4954 Sep, [place] [address] [place] [id number] [place] [address] 12138- 7916 Aug, Anxiety disorder, unspecified F41.9 and Obesity E66.9 [facility] [address] [place] [id number] [place] [address] 07897- 6521 Aug, Moderate persistent asthma without complication J45.40 [place] [address] [place] [id number] [place] [address] 21086- 2675 Aug, Anxiety disorder, unspecified F41.9 [place] [id number] [place] [address] 60475- 5515 Aug, Chronic migraine G43.709 ; Encounter for immunization Z23 ; Hypertriglyceridemia E78.1 ; Type 2 diabetes mellitus with diabetic polyneuropathy E11.42 ; Moderate persistent asthma without complication J45.40 and Morbid obesity E66.[address] 40694- 0155 Jul, [address] 04764- 1316 Jul, [address] 95380- 6237 Jul, [address] 70995- 1915 Jul, Subclinical hypothyroidism E03.[address] 27976- 1786 Jun, Essential hypertension, benign 401.1 ; Diabetic ulcer of lower extremity 250.80 ; Asthma 493.90 ; Diabetes mellitus type II, uncontrolled 250.02 and Hyperlipidemia associated with type 2 diabetes mellitus 250.80 [place] [id number] [place] [address] 66632- 2858 Jun, [place] [id number] [place] [address] 39697- 6240 Jun, [place] [address] 25329- 9271 May, [address] 72190- 8245 Apr, [address] 69532- 5052 Apr, Viral upper respiratory infection 465.9 and Asthma 493.[address] 76036- 9569 Mar, Abnormal ankle brachial index 796.4 [facility] [address] [address]- 5857 February, [facility] [id number] [place] [address] 67059- 4635 February, Essential hypertension, benign 401.1 [facility] [address] [place] [id number] [place] [address] 17574- 8472 February, Diabetic peripheral neuropathy 250.60 ; Ulcer of heel and midfoot 707.14 and Decreased pedal pulses 785.9 [facility] [id number] [place] [address] 32772- 1946 February, [facility] [address] [place] [id number] [place] [address] 77597- 3593 February, [facility] [address] [place] [id number] [place] [address] 71814- 2206 Jan, [facility] [address] [place] [id number] [place] [address] 41198- 6401 Jan, [facility] [id number] [place] [address] 33783- 4267 Dec, [facility] [address] [place] [id number] [place] [address] 91361- 5671 Dec, [facility] [address] [address]- 5272 Nov, [facility] [address] [address]- 0767 Nov, [facility] [address] [address]- 2376 Nov, [facility] [address] [place] [id number] [place] [address] 90761- 9388 Nov, [facility] [address] [address]- 9047 Nov, [facility] [place] [facility] [address] [id number] [place] [address]- 3653 Nov, [facility] [place] [facility] [address] [id number] [place] [address]- 1166 Nov, [facility] [place] [facility] [address] [id number] [place] [address]- 7916 Nov, [facility] [place] [facility] [address] [id number] [place] [address] Nov, [facility] [place] [facility] [address] [id number] [place] [address] Oct, [facility] [place] [facility] [address] [id number] [place] [address] Oct, [facility] [place] [facility] [address] [id number] [place] [address] Oct, [facility] [place] [facility] [address] [id number] [place] [address] Oct, [facility] [place] [facility] [address] [id number] [place] [address] Oct, [facility] [place] [facility] [address] [id number] [place] [address] Oct, [facility] [place] [facility] [address] [id number] [place] [address] Oct, [facility] [place] [facility] [address] [id number] [place] [address] 0369 Oct, [facility] [place] [facility] [address] [id number] [place] [address] 4004 Oct, [facility] [place] [facility] [address] [id number] [place] [address] 0546 Oct, [facility] [place] [facility] [address] [id number] [place] [address] 8315 Oct, [facility] [place] [facility] [address] [id number] [place] [address] 0858 Oct, [facility] [address] [id number] [place] [address] 9043 Oct, [facility] [place] [facility] [address] [id number] [place] [address] 8602 Sep, [facility] [place] [facility] [address] [id number] [place] [address] Sep, [facility] [place] [facility] [address] [id number] [place] [address] 2673 Sep, [facility] [place] [facility] [address] [id number] [place] [address]- 3802 Sep, [facility] [place] [facility] [address] [id number] [place] [address]- 5698 Sep, [facility] [place] [facility] [address] [id number] [place] [address]- 0952 Sep, [facility] [place] [facility] [address] [id number] [place] [address]- 8103 Sep, [facility] [place] [facility] [address] [id number] [place] [address]- 9473 Sep, [facility] [place] [facility] [address] [id number] [place] [address]- 7764 Sep, [facility] [place] [facility] [address] [id number] [place] [address]- 7082 Sep, [facility] [place] [facility] [address] [id number] [place] [address]- 5895 Sep, [facility] [place] [facility] [address] [id number] [place] [address] Sep, [facility] [place] [facility] [address] [id number] [place] [address] Sep, [facility] [place] [facility] [address] [id number] [place] [address]- 2291 Sep, [facility] [place] [facility] [address] [id number] [place] [address]- 3024 Sep, [facility] [place] [facility] [address] [id number] [place] [address] Sep, [facility] [place] [facility] [address] [id number] [place] [address]- 9371 Aug, [facility] [place] [facility] [address] [id number] [place] [address] Aug, [facility] [place] [facility] [address] [id number] [place] [address]- 5277 Aug, [facility] [place] [facility] [address] [id number] [place] [address]- 8252 Aug, [facility] [place] [facility] [address] [id number] [place] [address]- 6482 Aug, [facility] [place] [facility] [address] [id number] [place] [address]- 8729 Aug, [facility] [place] [facility] [address] [id number] [place] [address]- 8400 Aug, [facility] [place] [facility] [address] [id number] [place] [address]- 2938 Aug, [facility] [place] [facility] [address] [facility] [id number] [place] [address]- 3514 Jul, [facility] [place] [facility] [address] [id number] [place] [address]- 9798 31 Jul, 2014 [facility] [place] [facility] [address] [id number] [place] [address]- 6228 30 Jul, 2014 [facility] [place] [facility] [address] [id number] [place] [address]- 2020 15 Jul, 2014 [facility] [place] [facility] [address] [id number] [place] [address] Jul, [facility] [place] [facility] [address] [id number] [place] [address]- 2076 Jun, [facility] [place] [facility] [address] [id number] [place] [address]- 5936 Jun, [facility] [place] [facility] [address] [id number] [place] [address]- 5950 Jun, [facility] [place] [facility] [address] [id number] [place] [address]- 0336 Jun, [facility] [place] [facility] [address] [id number] [place] [address]- 5292 Jun, [facility] [place] [facility] [address] [id number] [place] [address]- 3599 May, [facility] [place] [facility] [address] [id number] [place] [address]- 9215 May, [facility] [place] [facility] [address] [id number] [place] [address]- 8898 Apr, [facility] [place] [facility] [address] [id number] [place] [address]- 4910 Apr, [facility] [place] [facility] [address] [id number] [place] [address]- 4644 Apr, [facility] [place] [facility] [address] [id number] [place] [address]- 1718 Apr, [facility] [place] [facility] [address] [id number] [place] [address]- 2417 Apr, [facility] [place] [facility] [address] [id number] [place] [address]- 6241 Apr, [facility] [place] [facility] [address] [id number] [place] [address]- 6375 Mar, [facility] [place] [facility] [address] [id number] [place] [address]- 3576 Mar, [facility] [place] [facility] [address] [id number] [place] [address]- 5982 Mar, [facility] [place] [facility] [address] [id number] [place] [address]- 1536 Mar, [facility] [place] [facility] [address] [id number] [place] [address]- 4659 Mar, [facility] [place] [facility] [address] [id number] [place] [address]- 3497 Mar, [facility] [place] [facility] [address] [id number] [place] [address]- 7143 Mar, [facility] [place] [facility] [address] [id number] [place] [address]- 7116 Mar, [facility] [place] [facility] [address] [id number] [place] [address]- 3393 Mar, [facility] [place] [facility] [address] [id number] [place] [address]- 6100 Mar, [facility] [place] [facility] [address] [id number] [place] [address]- 9588 Mar, [facility] [place] [facility] [address] [id number] [place] [address]- 1008 Mar, [facility] [place] [facility] [address] [id number] [place] [address]- 6252 Mar, [facility] [place] [facility] [address] [id number] [place] [address]- 5813 Mar, [facility] [place] [facility] [address] [id number] [place] [address]- 8480 Mar, [facility] [place] [facility] [address] [id number] [place] [address]- 1627 Mar, [facility] [place] [facility] [address] [id number] [place] [address]- 6533 February, [facility] [place] [facility] [address] [id number] [place] [address]- 9748 February, [facility] [place] [facility] [address] [id number] [place] [address]- 7001 February, [facility] [place] [facility] [address] [id number] [place] [address]- 2624 February, [facility] [place] [facility] [address] [id number] [place] [address]- 3216 February, [facility] [place] [facility] [address] [id number] [place] [address]- 0576 February, [facility] [place] [facility] [address] [id number] [place] [address]- 3552 February, [facility] [place] [facility] [address] [id number] [place] [address]- 0889 February, [facility] [place] [facility] [address] [id number] [place] [address]- 3874 Jan, [facility] [place] [facility] [address] [id number] [place] [address]- 5502 Jan, [facility] [place] [facility] [address] [id number] [place] [address]- 4454 Dec, [facility] [place] [facility] [address] [id number] [place] [address]- 1526 Dec, [facility] [place] [facility] [address] [id number] [place] [address]- 5514 Dec, [facility] [place] [facility] [address] [id number] [place] [address]- 1280 Dec, [facility] [place] [facility] [address] [id number] [place] [address]- 4237 Dec, [facility] [place] [facility] [address] [id number] [place] [address]- 3008 Dec, [facility] [place] [facility] [address] [id number] [place] [address]- 0567 Dec, [facility] [place] [facility] [address] [id number] [place] [address]- 8226 Dec, [facility] [place] [facility] [address] [id number] [place] [address]- 2246 17 Dec, 2013 [facility] [place] [facility] [address] [id number] [place] [address]- 3188 17 Dec, 2013 [facility] [place] [facility] [address] [id number] [place] [address]- 5843 Dec, [facility] [place] [facility] [address] [id number] [place] [address]- 7097 Dec, [facility] [place] [facility] [address] [id number] [place] [address]- 6131 Dec, [facility] [place] [facility] [address] [id number] [place] [address]- 2981 Dec, [facility] [place] [facility] [address] [id number] [place] [address]- 7609 Nov, [facility] [place] [facility] [address] [id number] [place] [address]- 9319 Nov, [facility] [place] [facility] [address] [id number] [place] [address]- 3075 Oct, [facility] [place] [facility] [address] [id number] [place] [address]- 9554 Oct, [facility] [place] [facility] [address] [id number] [place] [address]- 6658 Oct, [facility] [place] [facility] [address] [id number] [place] [address]- 8492 Oct, [facility] [place] [facility] [address] [id number] [place] [address]- 8069 Oct, [facility] [place] [facility] [address] [id number] [place] [address]- 8299 Oct, [facility] [place] [facility] [address] [id number] [place] [address]- 8743 Oct, [facility] [place] [facility] [address] [id number] [place] [address]- 1583 Sep, [facility] [place] [facility] [address] [id number] [place] [address]- 9074 30 Sep, 2013 [facility] [address] [id number] [place] [address]- 1146 30 Sep, 2013 [facility] [address] [id number] [place] [address]- 4246 Sep, [facility] [address] [id number] [place] [address]- 5726 Sep, [facility] [address] [id number] [place] [address]- 0045 Sep, [facility] [address] [id number] [place] [address] Sep, [facility] [address] [id number] [place] [address]- 3098 Sep, [facility] [address] [id number] [place] [address]- 7485 Sep, [facility] [address] [id number] [place] [address]- 2973 Sep, [facility] [address] [id number] [place] [address]- 3370 Sep, [facility] [address] [id number] [place] [address]- 7489 Sep, [facility] [address] [id number] [place] [address] 2549 16 Sep, 2013 [facility] [address] [id number] [place] [address]- 2546 16 Sep, 2013 [facility] [place] [facility] [address] [id number] [place] [address]- 2756 Sep, [facility] [address] [id number] [place] [address]- 2546 Sep, [facility] [address] [id number] [id number] [address]75 Sep, [facility] [place] [facility] [address] [id number] [place] [address]- 3276 Sep, [facility] [place] [facility] [address] [id number] [place] [address]- 6291 Sep, [facility] [place] [facility] [address] [id number] [place] [address]- 2410 Aug, [facility] [place] [facility] [address] [id number] [place] [address]- 6869 Aug, [facility] [place] [facility] [address] [id number] [place] [address]- 3822 Aug, [facility] [place] [facility] [address] [id number] [place] [address]- 2017 Aug, [facility] [place] [facility] [address] [id number] [place] [address]- 2334 Aug, [facility] [place] [facility] [address] [id number] [place] [address]- 3373 Aug, [facility] [place] [facility] [address] [id number] [place] [address]- 8781 Aug, [facility] [place] [facility] [address] [id number] [place] [address]- 9090 Aug, [facility] [place] [facility] [address] [id number] [place] [address]- 6696 Aug, [facility] [place] [facility] [address] [id number] [address]- 3418 Aug, [facility] [place] [facility] [address] [id number] [place] [address]- 0037 Aug, [facility] [place] [facility] [address] [id number] [place] [address]- 8531 Aug, [facility] [place] [facility] [address] [id number] [place] [address]- 6661 Aug, [facility] [place] [facility] [address] [id number] [place] [address]- 5639 05 Aug, 2013 [facility] [place] [facility] [address] [id number] [place] [address]- 3261 Aug, 2012 [facility] [place] [facility] [address] [id number] [place] [address]- 6347 Aug, [facility] [place] [facility] [address] [id number] [place] [address]- 2286 Aug, [facility] [place] [facility] [address] [id number] [place] [address]- 6037 Jul, [facility] [place] [facility] [address] [id number] [place] [address]- 7455 Jul, [facility] [place] [facility] [address] [id number] [place] [address]- 4194 Jul, [facility] [place] [facility] [address] [id number] [place] [address]- 0834 Jul, 2012 [facility] [place] [facility] [address] [id number] [place] [address]- 1608 Jul, [facility] [place] [facility] [address] [id number] [place] [address]- 5356 Jul, [facility] [place] [facility] [address] [facility] [id number] [place] [address]- 5430 Jul, [facility] [place] [facility] [address] [id number] [place] [address]- 2198 27 Sep, 2012 [facility] [place] [facility] [address] [id number] [address]- 8580 20 Sep, 2012 [facility] [place] [facility] [address] [id number] [place] [address]- 5841 17 Sep, 2012 [facility] [place] [facility] [address] [id number] [place] [address]- 8979 10 Sep, 2012 [facility] [place] [facility] [address] [facility] [id number] [address]- 2011 06 Sep, 2012 [facility] [place] [facility] [address] [id number] [address]- 1529 06 Jun, 2013 [facility] [address] [id number] [address]- 2022 05 Jun, 2013 [facility] [address] [facility] [id number], [place] [address]- 1649 Jun, [facility] [address] [facility] [id number], [place] [address]- 2176 May, [facility] [address] [facility] [id number], [place] [address]- 9259 May, [facility] [id number] [address]- 8397 May, [facility] [id number], [place] [address]- 9323 May, [facility] [id number], [place] [address]- 0489 May, [facility] [id number] [address]- 5531 May, [facility] [id number] [address]- 8428 May, [facility] [address] [id number] [address]- 3444 May, IMMUNIZATIONS No Known Immunizations SOCIAL HISTORY Never Assessed REASON FOR VISIT Prior Authorization Request PLAN OF CARE VITAL SIGNS MEDICATIONS Medication Instructions Dosage Frequency Start Date End Date Duration Status Imitrex 100 mg 1 tablet by Oral route 1 time per day and repeat once more after 2 hours if headache recurs PRN Dec, Active RESULTS No Results PROCEDURES No [...] History Left foot cellulitis, left 2nd toe amputation-[facility] 12/23 Hospitalization History Surgery Hospitalizations
--- OUTSIDE RECORDS SUMMARY | 2018-08-22 09:02 | XMS REPORT ---
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 Role Phone FARNAZ FLORENCEY Unavailable PROBLEMS Type Condition ICD9-CM Code GOX49-OX Code Onset Dates Condition Status SNOMED Code Problem Subclinical hypothyroidism E03.9 Active 92666777 Problem Hypertriglyceridemia E78.1 Active 083185435 Problem Type 2 diabetes mellitus with diabetic polyneuropathy E11.42 Active 269003686 Problem Type 2 diabetes mellitus with diabetic chronic 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 Active 232209537 Problem Other chronic pain G89.29 Active 56634127 Problem Type 2 diabetes mellitus with other skin complications E11.628 Active 10239167 Problem Pain in left foot M79.672 Active 03099101 Problem Irregular menstrual cycle N92.6 Active 52094914 Problem Pain in right foot M79.671 Active 30391320 Problem Tonsillolith J35.8 Active 3752608 Problem Chronic prescription opiate use Z79.891 Active 303535779 Problem Seasonal allergic rhinitis due to pollen J30.1 Active 79558402 Problem Asthma exacerbation, mild J45.901 Active 219761727 Problem Chronic kidney disease, stage III (moderate) N18.3 Active 603782532 Problem Chronic migraine G43.709 Active 42310583 Problem Moderate persistent asthma without complication J45.40 Active 217207481 Problem Intrinsic eczema L20.84 Active 48421161 Problem Severe episode of recurrent major depressive disorder, without psychotic features F33.2 Active 45122386 Problem Non-pressure chronic ulcer of right heel and midfoot limited to breakdown of skin L97.411 Active 195237622 Problem Ulcer of right heel L97.419 Active 124586861 Problem Obesity E66.9 Active 690609695 Problem Type 2 diabetes mellitus with foot ulcer E11.621 Active 39933507 Problem Essential hypertension I10 Active 60364866 Problem Anxiety disorder, unspecified F41.9 Active 824109165 Problem Type 2 diabetes mellitus with other specified complication E11.69 Active 659285760 Problem Status post amputation of toe of left foot Z89.422 Active 349507534 Problem DM neuro manif type II E11.49 Active 19724893 Problem History of amputation of hallux Z89.419 Active 906534529 ALLERGIES No Information ENCOUNTERS Encounter Location Date Diagnosis [facility] [address] 50391- [address] 26 Jun, 2018 [facility] [address] 74727- 3707 08 May, 2018 [place] [address] 40668- 5211 07 May, 2018 Nausea R11.0 [place] [address] 83571- 8676 May, Other chronic pain G89.29 and Nausea R11.0 [place] [address] 17123- 8114 May, Left genital labial abscess N76.4 and BMI 60.0-69.9, adult Z68.44 [place] [address] 76543- 9136 May, [place] [address] [place] [id number] [place] [address] 52891- 3051 Apr, [place] [address] [place] [id number] [place] [address] 83216- 4955 Apr, Chronic migraine G43.709 [facility] [address] [place] [id number] [place] [address] 30891- 3918 Apr, [place] [address] 33564- 8248 Mar, Moderate persistent asthma without complication J45.40 [place] [address] [place] [id number] [place] [address] 69265- 8829 07 Mar, 2018 Moderate persistent asthma without complication J45.40 [place] [address] [place] [id number] [address]871 Mar, [facility] [address] [place] [address] 44431- 9633 February, Chronic migraine G43.709 [facility] [address] [address] 0169 February, Chronic migraine G43.709 [facility] [address] [place] [id number] [place] [address] 13020- 4118 February, [facility] [address] [place] [address] 85611- 8199 February, [place] [address] [place] [id number] [place] [address] 57934- 4789 February, Type 2 diabetes mellitus with diabetic polyneuropathy E11.42 ; Moderate persistent asthma without complication J45.40 ; Type 2 diabetes mellitus with foot ulcer E11.621 ; Non-pressure chronic ulcer of right heel and midfoot limited to breakdown of skin L97.411 ; Chronic migraine G43.709 and BMI 60.0-69.9, adult Z68.44 [facility] [address] [id number] [place] [address] 65939 -9020 Jan, Asthma exacerbation, mild J45.901 ; Seasonal allergic rhinitis due to pollen J30.1 and BMI 60.0-69.9, adult Z68.44 [facility] [address] [place] [address] 66398- 7914 Jan, [facility] [address] [id number] [place] [address] 44921- 6073 Jan, Other chronic pain G89.29 [place] [address] [place] [id number] [place] [address] 87965- 1050 Dec, Type 2 diabetes mellitus with diabetic polyneuropathy E11.42 [facility] [address] [place] [id number] [place] [address] 25222- 2416 Dec, Type 2 diabetes mellitus with diabetic polyneuropathy E11.42 [place] [address] [place] [address] 13694- 1398 15 Dec, 2017 [place] [address] 86675- 6353 14 Dec, 2017 [place] [address] [place] [id number] [place] [address] 80564- 4028 13 Dec, 2017 Chronic kidney disease, stage III (moderate) N18.3 [facility] [place] [address] [place] [id number] [place] [address] 93326 -8382 09 Dec, 2017 Nausea R11.0 and Diarrhea, unspecified type R19.7 [place] [address] 26299- 3942 07 Dec, 2017 Chronic kidney disease, stage III (moderate) N18.3 and Type 2 diabetes mellitus with diabetic polyneuropathy E11.42 [place] [address] [place] [id number] [place] [address] 13318- 2617 06 Dec, 2017 [place] [address] [place] [id number] [place] [address] 17651- 3446 Nov, Ulcer of right heel L97.419 and Type 2 diabetes mellitus with diabetic polyneuropathy E11.42 [facility] [address] [place] [id number] [place] [address] [id number] Nov, Dental examination Z01.20 [place] [address] [place] [id number] [place] [address] 64364- 4684 Nov, Open wound of right foot, initial encounter S91.301A [facility] [address] [place] [address] 34392 -2794 Nov, Open wound of right foot, initial encounter S91.301A ; Non- intractable vomiting with nausea, unspecified vomiting type R11.2 and BMI 60.0- 69.9, adult Z68.44 [place] [address] [place] [id number] [place] [address] 08076- 5915 Nov, [place] [address] [place] [id number] [place] [address] 20213- 7962 Nov, Other chronic pain G89.29 [place] [address] [place] [id number] [place] [address] 33268- 8206 Oct, Cellulitis of right lower limb L03.115 [place] [address] [place] [id number] [place] [address] 61851- 4680 Oct, [place] [address] 09964- 9895 Oct, [place] [address] 23913- 3621 Oct, Cat scratch W55.03XA ; Cellulitis of right lower limb L03.115 ; Acute nasopharyngitis J00 ; BMI 60.0-69.9, adult Z68.44 and Cough R05 [address] 15363- 2473 Oct, Cat scratch W55.03XA ; Cutaneous abscess of right lower extremity L02.415 and Cellulitis of right lower limb L03.115 [place] [address] [place] [id number] [place] [address] 05869- 6032 Oct, Type 2 diabetes mellitus with diabetic polyneuropathy E11.42 [place] [address] [place] [id number] [place] [address] 92849- 7408 Oct, Other chronic pain G89.29 [place] [address] [place] [id number] [place] [address] 42814- 4718 Aug, [place] [address] [place] [id number] [place] [address] 19137- 4658 Jul, Other chronic pain G89.29 [place] [address] [place] [id number] [place] [address] 56215- 6679 Jul, [place] [address] [place] [id number] [place] [address] 04381- 7073 Jul, Chronic kidney disease, stage III (moderate) N18.3 [place] [address] 74092- 6771 04 Jul, 2017 Type 2 diabetes mellitus with diabetic polyneuropathy E11.42 ; Essential hypertension I10 ; Irregular menstrual cycle N92.6 ; Hypertriglyceridemia E78.1 ; Anxiety disorder, unspecified F41.9 ; Severe episode of recurrent major depressive disorder, without psychotic features F33.2 ; Tonsillolith J35.8 ; Intrinsic eczema L20.84 ; Subclinical hypothyroidism E03.9 ; Viral pharyngitis J02.9 and Encounter for immunization Z23 [place] [address] 37768- 2821 13 Jun, 2017 Essential hypertension I10 [place] [address] 16951- 2378 08 Jun, 2017 [place] [address] 23517- 6966 07 Jun, 2017 [place] [address] 84674- 7352 May, Moderate persistent asthma without complication J45.[address] 85515- 6109 17 May, 2017 Pain in right foot M79.671 ; Pain in left foot M79.672 ; Other chronic pain G89.29 and Chronic prescription opiate use Z79.891 [place] [address] 43833- 9716 May, [place] [address] 00597- 4674 May, [place] [address] 25064- 7826 Apr, [place] [address] 71348- 3543 Apr, Chronic migraine G43.709 [place] [address] [place] [address]- 7772 Apr, Essential hypertension I10 ; Hypertriglyceridemia E78.1 and Chronic migraine G43.709 [place] [address] [place] [id number] [place] [address] 47338- 4047 Apr, [place] [address] [place] [id number] [place] [address] 54220- 8115 Apr, Sore throat J02.9 [place] [address] [place] [id number] [place] [address] 57625- 0629 Apr, [place] [address] [place] [id number] [place] [address] 40126- 9891 Mar, Strep pharyngitis J02.0 and Non-intractable vomiting with nausea, unspecified vomiting type R11.2 [place] [address] [place] [id number] [place] [address] 82877- 0312 Mar, [place] [address] [place] [id number] [place] [address] 99208- 8636 Mar, [place] [address] [place] [id number] [place] [address] 05589- 5737 Mar, [place] [address] [place] [id number] [place] [address] 36808- 3823 Mar, Type 2 diabetes mellitus with diabetic polyneuropathy E11.42 ; Moderate persistent asthma without complication J45.40 ; Status post amputation of toe of left foot Z89.422 ; Acute seasonal allergic rhinitis, unspecified trigger J30.2 and Left shoulder pain, unspecified chronicity M25.512 [place] [address] [place] [id number] [place] [address] 81835- 2205 Mar, [place] [address] 22434- 7452 February, Pre-op evaluation Z01.818 ; Type 2 diabetes mellitus with diabetic polyneuropathy E11.42 and Type 2 diabetes mellitus with foot ulcer E11.621 [place] [address] [place] [id number] [place] [address] 32398- 6995 February, [place] [address] [place] [id number] [place] [address] 00832- 3337 February, [place] [address] [place] [id number] [place] [address] 04549- 2725 February, Toe infection L08.9 and Type 2 diabetes mellitus with other specified complication E11.69 [place] [address] [place] [id number] [place] [address] 64906- 5142 February, [place] [address] [place] [id number] [place] [address] 40190- 6220 Jan, Type 2 diabetes mellitus with diabetic polyneuropathy E11.42 [place] [address] [place] [id number] [place] [address] 93925- 1371 Jan, [place] [address] [place] [id number] [place] [address] 39206- 7797 Jan, Right upper quadrant pain R10.11 and Intractable vomiting with nausea, unspecified vomiting type R11.2 [place] [address] [place] [id number] [place] [address] 32605- 4047 Jan, Hypertriglyceridemia E78.1 and Essential hypertension I10 [place] [address] [place] [id number] [place] [address] 69011- 8149 07 Jan, 2017 Essential hypertension I10 ; Type 2 diabetes mellitus with diabetic polyneuropathy E11.42 and Hypertriglyceridemia E78.1 [place] [address] [place] [id number] [place] [address] 29166- 9482 Dec, Type 2 diabetes mellitus with diabetic polyneuropathy E11.42 [place] [address] [place] [id number] [place] [address] 63255- 3722 Dec, Hypertriglyceridemia E78.1 ; Essential hypertension I10 ; Type 2 diabetes mellitus with diabetic polyneuropathy E11.42 ; Anxiety disorder , unspecified F41.9 and Moderate persistent asthma without complication J45.40 [place] [address] [place] [id number] [place] [address] 29315- 1207 Dec, Type 2 diabetes mellitus with diabetic polyneuropathy E11.42 [facility] [address] [place] [id number] [place] [address] [id number] Dec, [facility] [address] [place] [address] 09996- 6481 Nov, [facility] [address] [place] [address] 73142- 5456 Nov, [facility] [address] [place] [id number] [place] [address] 53904- 1360 Nov, [facility] [address] [place] [id number] [place] [address] 84930- 7951 Nov, Toe infection L08.9 [facility] [address] [place] [id number] [place] [address] 56425- 7419 Nov, [facility] [address] [place] [id number] [place] [address] 10460- 6481 Oct, History of amputation of hallux Z89.419 [facility] [address] [place] [address] 88900- 3244 Oct, Type 2 diabetes mellitus with diabetic polyneuropathy E11.42 [facility] [address] [place] [address] 80352- 1497 Oct, Type 2 diabetes mellitus with diabetic polyneuropathy E11.42 [facility] [address] [place] [address] 64406- 3286 Oct, Acute osteomyelitis of left foot M86.172 ; Pre-op exam Z01.818 and Type 2 diabetes mellitus with diabetic polyneuropathy E11.42 [facility] [address] [place] [address] 01282- 1872 Oct, Foot ulcer, left, with unspecified severity L97.529 ; Acute osteomyelitis of left foot M86.172 and Type 2 diabetes mellitus with diabetic polyneuropathy E11.42 [facility] [address] [place] [id number] [address]- 1122 Sep, [facility] [address] [place] [id number] [place] [address] 32650- 4401 Sep, Intractable vomiting with nausea, unspecified vomiting type R11.2 and Right upper quadrant pain R10.11 [facility] [address] [place] [id number] [place] [address] 13466- 2033 Aug, [facility] [address] [place] [id number] [place] [address] 60753- 7469 Jul, [facility] [address] [place] [id number] [place] [address] 63448- 4656 Jul, Preop examination Z01.818 [facility] [address] [place] [id number] [place] [address] 94748- 8069 Jul, [facility] [address] [place] [id number] [place] [address] 89417- 7973 Jul, [facility] [address] [place] [id number] [place] [address] 89937- 6007 Jul, Chronic osteomyelitis of left foot M86.672 and Ulcer of left foot, with unspecified severity L97.529 [facility] [id number] [address]- 0085 Jul, Non-pressure chronic ulcer of other part of left foot with unspecified severity L97.529 [facility] [address] [place] [id number] [place] [address] 99140- 3378 Jul, [facility] [address] [id number] [place] [address] 13726- 2385 Jul, [facility] [id number] [place] [address] 08316- 7736 Jun, [facility] [address] [place] [address] 18916- 3193 Jun, [facility] [id number] [place] [address] 43643- 1099 Jun, [place] [address] [place] [address] 43007- 7332 Jun, Right upper quadrant pain R10.11 [place] [address] [place] [id number] [place] [address] 84625- 9049 Jun, [place] [address] [place] [id number] [place] [address] 48751- 4617 Jun, Intractable vomiting with nausea, unspecified vomiting type R11.2 [place] [address] [place] [id number] [place] [address] 16856- 1635 13 Jun, 2016 Right upper quadrant pain R10.11 ; Migraine with aura and with status migrainosus, not intractable G43.101 and Intractable vomiting with nausea, unspecified vomiting type R11.2 [place] [address] [place] [id number] [place] [address] 06246- 6743 Jun, [place] [address] [place] [id number] [place] [address] 54125- 8590 Jun, Gastroenteritis K52.9 [place] [address] [place] [id number] [place] [address] 15005- 6140 May, [place] [address] [place] [id number] [place] [address] 22040- 5146 May, Hypertriglyceridemia E78.1 ; Essential hypertension I10 ; Type 2 diabetes mellitus with diabetic polyneuropathy E11.42 ; Moderate persistent asthma without complication J45.40 ; Type 2 diabetes mellitus with foot ulcer E11.621 ; Other chronic pain G89.29 ; Pain in right leg M79.604 ; Pain of left leg M79.605 ; Rash and nonspecific skin eruption R21 and Anxiety disorder, unspecified F41.9 [place] [address] [place] [id number] [place] [address] 84414- 4316 May, Essential hypertension I10 ; Hypertriglyceridemia E78.1 ; Upper respiratory infection J06.9 ; Subclinical hypothyroidism E03.9 and Type 2 diabetes mellitus with diabetic polyneuropathy E11.[id number] [place] [address] 72390- 5741 Apr, Hypertriglyceridemia E78.1 ; Subclinical hypothyroidism E03.9 ; Essential hypertension I10 and Type 2 diabetes mellitus with diabetic polyneuropathy E11.42 [facility] [address] [place] [id number] [place] [address] 96829- 0784 Mar, [facility] [address] [place] [id number] [place] [address] 72149- 9753 Mar, Ulcer of right heel L97.419 [facility] [address] [place] [id number] [place] [address] 07696- 1836 Mar, [place] [address] [place] [id number] [place] [address] 75955- 9743 Mar, [facility] [address] [place] [id number] [place] [address] 25944- 4812 February, [place] [address] [place] [id number] [place] [address] 57620- 5122 February, Ulcer of right heel L97.419 and DM neuro manif type II E11.49 [place] [address] [place] [id number] [place] [address] 11671- 4265 Jan, [place] [address] [place] [id number] [place] [address] 09937- 1957 Jan, Ulcer of right heel L97.419 ; Type 2 diabetes mellitus with foot ulcer E11.621 and Non-pressure chronic ulcer of other part of left foot with unspecified severity L97.529 [facility] [address] [place] [address] 08986- 4082 Jan, [facility] [id number] [place] [address] 19228- 6167 Jan, [facility] [address] [place] [address] 66374- 9226 Jan, Infection of toenail L03.039 [place] [address] [place] [id number] [place] [address] 11660- 7703 14 Jan, 2016 Blister of toe of left foot, initial encounter S90.425A and Type 2 diabetes mellitus with diabetic polyneuropathy E11.42 [facility] [address] [id number] [place] [address] 57470- 5804 13 Jan, 2016 [facility] [address] [id number] [place] [address] 55761 -7630 Jan, Sore throat J02.9 and Strep pharyngitis J02.0 [facility] [address] [id number] [place] [address] 10207- 5465 Dec, Type 2 diabetes mellitus with diabetic polyneuropathy E11.42 ; Upper respiratory infection J06.9 ; Cough R05 and Asthma exacerbation J45.901 [place] [address] [place] [id number] [place] [address] 53492- 5986 Oct, [place] [address] 47877- 8395 Oct, [facility] [address] [place] [id number] [place] [address] 58279- 0711 Oct, [facility] [id number] [place] [address] 45084- 0445 Oct, [place] [address] [place] [id number] [place] [address] 76109- 2261 Sep, [facility] [id number] [place] [address] 62797- 6334 Aug, Anxiety disorder, unspecified F41.9 and Obesity E66.9 [place] [address] 21359- 9969 Aug, Moderate persistent asthma without complication J45.40 [place] [address] [place] [id number] [place] [address] 02169- 1525 Aug, Anxiety disorder, unspecified F41.9 [facility] [address] 19210- 5795 Aug, Encounter for immunization Z23 ; Chronic migraine G43.709 ; Hypertriglyceridemia E78.1 ; Type 2 diabetes mellitus with diabetic polyneuropathy E11.42 ; Moderate persistent asthma without complication J45.40 and Morbid obesity E66.01 [place] [id number] [place] [address] 74965- 2524 Jul, [place] [address] 75910- 5380 Jul, [place] [address] [place] [id number] [place] [address] 05682- 3831 Jul, [address] 33081- 5716 Jul, Subclinical hypothyroidism E03.[address] 33808- 2346 Jun, Essential hypertension, benign 401.1 ; Diabetic ulcer of lower extremity 250.80 ; Asthma 493.90 ; Diabetes mellitus type II, uncontrolled 250.02 and Hyperlipidemia associated with type 2 diabetes mellitus [address] 69002- 0673 Jun, [place] [address] [place] [id number] [place] [address] 33260- 0572 Jun, [place] [address] [place] [id number] [place] [address] 89002- 6531 May, [place] [address] 35607- 1197 Apr, [address] 52937- 4475 Apr, Viral upper respiratory infection 465.9 and Asthma 493.[address] 70993- 5334 Mar, Abnormal ankle brachial index 796.[address] 14568- 8967 February, [facility] [address] [address]- 4574 February, Essential hypertension, benign 401.1 [facility] [address] [address]- 4950 February, Diabetic peripheral neuropathy 250.60 ; Ulcer of heel and midfoot 707.14 and Decreased pedal pulses 785.9 [facility] [address] [address]- 7926 February, [facility] [address] [place] [address] 93085- 2548 February, [facility] [address] [id number] [place] [address] 09762- 7245 Jan, [facility] [address] [id number] [place] [address] 20735- 4840 Jan, [facility] [address], [place] [address]- 8804 Dec, [facility] [address] [address]- 5404 Dec, [facility] [address] [place] [address]- 3974 Nov, [facility] [address] [address]- 3818 Nov, [facility] [address] [address]- 8517 Nov, [facility] [address] [address]- 3689 Nov, [facility] [address] [address]- 3126 Nov, [facility] [address] [address]- 0430 Nov, [facility] [place] [facility] [address] [id number] [place] [address]- 5930 Nov, [facility] [place] [facility] [address] [id number] [place] [address]- 7238 Nov, [facility] [place] [facility] [address] [id number] [place] [address]- 0626 Nov, [facility] [place] [facility] [address] [id number] [place] [address] Oct, [facility] [place] [facility] [address] [id number] [place] [address] 3968 Oct, [facility] [place] [facility] [address] [id number] [place] [address] Oct, [facility] [place] [facility] [address] [id number] [place] [address]- 0416 Oct, [facility] [place] [facility] [address] [id number] [place] [address] 6993 Oct, [facility] [place] [facility] [address] [id number] [place] [address]- 9841 Oct, [facility] [place] [facility] [address] [id number] [place] [address]- 1514 Oct, [facility] [place] [facility] [address] [id number] [place] [address]- 9423 Oct, [facility] [place] [facility] [address] [id number], [place] [address] 269[address] Oct, [facility] [place] [facility] [address] [id number] [place] [address]- 6391 Oct, [facility] [place] [facility] [address] [id number] [place] [address]- 1809 Oct, [facility] [place] [facility] [address] [id number], [place] [address] Oct, [facility] [place] [facility] [address] [id number], [place] [address] Oct, [facility] [address] [id number] [place] [address]- 5695 Sep, [facility] [place] [facility] [address] [id number] [place] [address]- 8160 Sep, [facility] [place] [facility] [address] [id number] [place] [address]- 3887 Sep, [facility] [place] [facility] [address] [id number] [place] [address]- 7453 Sep, [facility] [place] [facility] [address] [id number] [place] [address]- 8454 Sep, [facility] [place] [facility] [address] [id number] [place] [address]- 5018 Sep, [facility] [place] [facility] [address] [id number] [place] [address]- 7714 Sep, [facility] [place] [facility] [address] [id number] [place] [address]- 4965 Sep, [facility] [place] [facility] [address] [id number] [place] [address]- 2279 Sep, [facility] [place] [facility] [address] [id number] [place] [address]- 8419 Sep, [facility] [place] [facility] [address] [id number] [place] [address]- 1355 Sep, [facility] [place] [facility] [address] [id number] [place] [address]- 4859 Sep, [facility] [place] [facility] [address] [id number] [place] [address]- 9883 Sep, [facility] [place] [facility] [address] [id number] [place] [address]- 0186 Sep, [facility] [place] [facility] [address] [id number] [place] [address]- 0070 Sep, [facility] [place] [facility] [address] [id number] [place] [address]- 3897 Sep, [facility] [place] [facility] [address] [id number] [place] [address]- 0602 Aug, [facility] [place] [facility] [address] [id number] [place] [address]- 9007 Aug, [facility] [place] [facility] [address] [id number] [place] [address]- 2214 Aug, [facility] [place] [facility] [address] [id number] [place] [address]- 6847 Aug, [facility] [place] [facility] [address] [id number] [place] [address]- 3597 Aug, [facility] [place] [facility] [address] [id number] [place] [address]- 8559 Aug, [facility] [place] [facility] [address] [id number] [place] [address]- 9774 Aug, [facility] [place] [facility] [address] [id number] [place] [address]- 1729 Aug, [facility] [place] [facility] [address] [id number] [place] [address]- 3952 Jul, [facility] [place] [facility] [address] [id number] [place] [address]- 0256 Jul, [facility] [place] [facility] [address] [id number] [place] [address]- 8763 30 Jul, 2014 [facility] [place] [facility] [address] [id number] [place] [address]- 0947 15 Jul, 2014 [facility] [place] [facility] [address] [id number] [place] [address] 15 Jul, 2014 [facility] [place] [facility] [address] [id number] [place] [address]- 3648 Jun, [facility] [place] [facility] [address] [id number] [place] [address]- 2291 Jun, [facility] [place] [facility] [address] [id number] [place] [address]- 3130 Jun, [facility] [place] [facility] [address] [id number] [place] [address]- 3575 Jun, [facility] [place] [facility] [address] [id number] [place] [address]- 9330 Jun, [facility] [place] [facility] [address] [id number] [place] [address]- 1722 May, [facility] [place] [facility] [address] [id number] [place] [address]- 2950 May, [facility] [place] [facility] [address] [id number] [place] [address]- 2038 Apr, [facility] [place] [facility] [address] [id number] [place] [address]- 6482 Apr, [facility] [place] [facility] [address] [id number] [place] [address]- 6566 Apr, [facility] [place] [facility] [address] [id number] [place] [address]- 7823 Apr, [facility] [place] [facility] [address] [id number] [place] [address]- 5314 Apr, [facility] [place] [facility] [address] [id number] [place] [address]- 1487 Apr, [facility] [place] [facility] [address] [id number] [place] [address]- 1908 Mar, [facility] [place] [facility] [address] [id number] [place] [address]- 2720 Mar, [facility] [place] [facility] [address] [id number] [place] [address]- 1418 Mar, [facility] [place] [facility] [address] [id number] [place] [address]- 5270 Mar, [facility] [place] [facility] [address] [id number] [place] [address]- 7486 Mar, [facility] [place] [facility] [address] [id number] [place] [address]- 1985 Mar, [facility] [place] [facility] [address] [id number] [place] [address]- 8585 Mar, [facility] [place] [facility] [address] [id number] [place] [address]- 7429 Mar, [facility] [place] [facility] [address] [id number] [place] [address]- 8681 Mar, [facility] [place] [facility] [address] [id number] [place] [address]- 2042 Mar, [facility] [place] [facility] [address] [id number] [place] [address]- 9966 Mar, [facility] [place] [facility] [address] [id number] [place] [address]- 9183 Mar, [facility] [place] [facility] [address] [id number] [place] [address]- 0358 Mar, [facility] [place] [facility] [address] [id number] [place] [address]- 5763 Mar, [facility] [place] [facility] [address] [id number] [place] [address]- 3853 Mar, [facility] [place] [facility] [address] [id number] [place] [address]- 6879 Mar, [facility] [place] [facility] [address] [id number] [place] [address]- 9774 February, [facility] [place] [facility] [address] [id number] [place] [address]- 0466 February, [facility] [place] [facility] [address] [id number] [place] [address]- 6573 February, [facility] [place] [facility] [address] [id number] [place] [address]- 7778 February, [facility] [place] [facility] [address] [id number] [place] [address]- 4045 February, [facility] [place] [facility] [address] [id number] [place] [address]- 5201 February, [facility] [place] [facility] [address] [id number] [place] [address]- 1246 February, [facility] [place] [facility] [address] [id number] [place] [address]- 2152 February, [facility] [place] [facility] [address] [id number] [place] [address]- 9180 Jan, [facility] [place] [facility] [address] [id number] [place] [address]- 4405 Jan, [facility] [place] [facility] [address] [id number] [place] [address]- 4920 Dec, [facility] [place] [facility] [address] [id number] [place] [address]- 1114 Dec, [facility] [place] [facility] [address] [id number] [place] [address]- 9154 Dec, [facility] [place] [facility] [address] [id number] [place] [address]- 7118 Dec, [facility] [place] [facility] [address] [id number] [place] [address]- 4811 Dec, [facility] [place] [facility] [address] [id number] [place] [address]- 6365 Dec, [facility] [place] [facility] [address] [id number] [place] [address]- 2039 Dec, [facility] [place] [facility] [address] [id number] [place] [address]- 6911 Dec, [facility] [place] [facility] [address] [id number] [place] [address]- 3316 17 Dec, 2013 [facility] [place] [facility] [address] [id number] [place] [address]- 6726 17 Dec, 2013 [facility] [place] [facility] [address] [id number] [place] [address]- 8991 Dec, [facility] [place] [facility] [address] [id number] [place] [address]- 4038 14 Dec, 2013 [facility] [place] [facility] [address] [id number] [place] [address]- 5680 Dec, [facility] [place] [facility] [address] [id number] [place] [address]- 3727 Dec, [facility] [place] [facility] [address] [id number] [place] [address]- 9806 Nov, [facility] [place] [facility] [address] [id number] [place] [address]- 7409 Nov, [facility] [place] [facility] [address] [id number] [place] [address]- 0400 Oct, [facility] [place] [facility] [address] [id number] [place] [address]- 1529 Oct, [facility] [place] [facility] [address] [id number] [place] [address]- 7361 Oct, [facility] [place] [facility] [address] [id number] [place] [address]- 1685 Oct, [facility] [place] [facility] [address] [id number] [place] [address]- 9275 Oct, [facility] [place] [facility] [address] [id number] [place] [address]- 4614 Oct, [facility] [place] [facility] [address] [id number] [place] [address]- 7297 Oct, [facility] [place] [facility] [address] [id number] [place] [address]- 7232 Sep, [facility] [place] [facility] [address] [id number] [place] [address]- 6597 30 Sep, 2013 [facility] [place] [facility] [address] [id number] [place] [address]- 9453 30 Sep, 2013 [facility] [address] [id number] [place] [address]- 1616 29 Sep, 2013 [facility] [address] [id number] [place] [address]- 8746 Sep, [facility] [address] [id number] [place] [address]- 5706 Sep, [facility] [address] [id number] [place] [address]- 2170 Sep, [facility] [address] [id number] [place] 6138 Sep, [facility] [address] [id number] [place] [address]- 8639 Sep, [facility] [address] [id number] [place] [address]- 6156 Sep, [facility] [address] [id number] [place] [address]- 5874 Sep, [facility] [address] [id number] [place] [address]- 0518 Sep, [facility] [address] [id number] [place] [address]- 5264 16 Sep, 2013 [facility] [address] [id number] [place] [address]- 2542 16 Sep, 2013 [facility] [address] [id number] [place] [address]- 2546 Sep, [facility] [address] [id number] [place] [address]- 9136 Sep, [facility] [address] [id number] [place] 5376 Sep, [facility] [address] [id number] [id number] 4218 Sep, [facility] [place] [facility] [address] [id number] [place] [address]- 3845 Sep, [facility] [place] [facility] [address] [id number] [place] [address]- 8878 Aug, [facility] [place] [facility] [address] [id number] [place] [address]- 5580 Aug, [facility] [place] [facility] [address] [id number] [place] [address]- 4106 Aug, [facility] [place] [facility] [address] [id number] [place] [address]- 5090 Aug, [facility] [place] [facility] [address] [id number] [place] [address]- 3039 Aug, [facility] [place] [facility] [address] [id number] [place] [address]- 7361 Aug, [facility] [place] [facility] [address] [id number] [place] [address]- 6845 Aug, [facility] [place] [facility] [address] [id number] [place] [address]- 7816 Aug, [facility] [place] [facility] [address] [id number] [place] [address]- 9395 Aug, [facility] [place] [facility] [address] [id number], [place] [address]- 4122 Aug, [facility] [place] [facility] [address] [id number], [place] [address]- 3519 Aug, [facility] [place] [facility] [address] [id number] [place] [address]- 6581 Aug, [facility] [place] [facility] [address] [id number], [place] [address]- 8950 Aug, [facility] [place] [facility] [address] [id number], [place] [address]- 7940 Aug, [facility] [place] [facility] [address] [id number] [place] [address]- 8859 Aug, 2012 [facility] [place] [facility] [address] [id number] [place] [address]- 7064 Aug, 2012 [facility] [place] [facility] [address] [id number] [place] [address]- 5775 Aug, [facility] [place] [facility] [address] [id number] [place] [address]- 8619 Jul, 2012 [facility] [place] [facility] [address] [id number] [place] [address]- 9726 Jul, 2012 [facility] [place] [facility] [address] [id number] [place] 5449 Jul, 2012 [facility] [place] [facility] [address] [id number] [place] [address]- 2777 Jul, 2012 [facility] [place] [facility] [address] [id number] [place] [address]- 9892 Jul, 2012 [facility] [place] [facility] [address] [id number] [place] [address]- 6350 Jul, [facility] [place] [facility] [address] [id number] [place] [address]- 6269 Jul, [facility] [place] [facility] [address] [id number] [place] [address]- 1722 27 Jun, 2012 [facility] [place] [facility] [address] [id number] [place] [address]- 6238 20 Sep, 2012 [facility] [place] [facility] [address] [id number], [place] [address]- 0281 17 Sep, 2012 [facility] [place] [facility] [address] [id number], [place] [address]- 0804 10 Sep, 2012 [facility] [place] [facility] [address] [id number], [place] [address]- 3568 06 Sep, 2012 [facility] [place] [facility] [address] [id number], [place] [address]- 6867 06 Sep, 2012 [facility] [place] [facility] [address] [id number], [place] [address]- [address]707 Jun, [facility] [address] [id number], [place] [address]- 0733 Jun, [facility] [address] [id number], [place] [address]- 3097 May, [facility] [address] [id number], [place] [address]- 6542 May, [facility] [address] [id number], [place] [address]- 3715 May, [facility] [id number], [place] [address]- 4996 May, [facility] [id number], [place] [address]- 3477 May, [facility] [id number], [place] [address]- 6671 May, [facility] [address] [id number], [place] [address]- 8091 May, [facility] [address] [id number], [place] [address]- 7247 May, IMMUNIZATIONS No Known Immunizations SOCIAL HISTORY Never Assessed REASON FOR VISIT Requests return call PLAN OF CARE VITAL SIGNS MEDICATIONS Medication Instructions Dosage Frequency Start Date End Date Duration Status Cromolyn Sodium 4 % Ophthalmic 2 times a day 2 drops into affected eye as needed 12 18 Feb, 2017 Active RESULTS No Results PROCEDURES No Known procedures INSTRUCTIONS MEDICATIONS ADMINISTERED No Known Medications MEDICAL (GENERAL) HISTORY Type Description Date Medical History type I diabetes Medical History hypertension Medical History hyperlipidemia Medical History asthma Medical History migraine headaches Medical History allergic rhinitis Medical History neuropathy Medical History Chronic osteomyelitis, site unspecified Medical History 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 [facility] Surgical History bladder surgery-stretch [facility] [facility] 2003 Surgical History exploratory laparoscopy [facility] 1995 Surgical History amputation, toe (R great) Surgical History amputation, (R forefoot) 2015 Surgical History amputation, toe Left second 12/2016 Surgical History amputation, 4th left toe 02/2017 Hospitalization History Left foot cellulitis, left 2nd toe amputation-[facility] 12/23 Hospitalization History Surgery Hospitalizations
--- OUTSIDE RECORDS SUMMARY | 2018-08-22 09:03 | XMS REPORT ---
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 Name Role Phone DEE DEE FLORENCEHANY Unavailable PROBLEMS Type Condition ICD9-CM Code NKZ02-NR Code Onset Dates Condition Status SNOMED Code Problem Subclinical hypothyroidism E03.9 Active 74482816 Problem Hypertriglyceridemia E78.1 Active 255012140 Problem Type 2 diabetes mellitus with diabetic polyneuropathy E11.42 Active 484744091 Problem Type 2 diabetes mellitus with diabetic chronic 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 Active 344919279 Problem Other chronic pain G89.29 Active 57457585 Problem Type 2 diabetes mellitus with other skin complications E11.628 Active 12486388 Problem Pain in left foot M79.672 Active 34378765 Problem Irregular menstrual cycle N92.6 Active 06120613 Problem Pain in right foot M79.671 Active 13012497 Problem Tonsillolith J35.8 Active 9131376 Problem Chronic prescription opiate use Z79.891 Active 745164460 Problem Seasonal allergic rhinitis due to pollen J30.1 Active 21237896 Problem Asthma exacerbation, mild J45.901 Active 304591235 Problem Chronic kidney disease, stage III (moderate) N18.3 Active 260221780 Problem Chronic migraine G43.709 Active 65391754 Problem Moderate persistent asthma without complication J45.40 Active 719285753 Problem Intrinsic eczema L20.84 Active 43542855 Problem Severe episode of recurrent major depressive disorder, without psychotic features F33.2 Active 87526954 Problem Non-pressure chronic ulcer of right heel and midfoot limited to breakdown of skin L97.411 Active 881033064 Problem Ulcer of right heel L97.419 Active 780035675 Problem Obesity E66.9 Active 431853937 Problem Type 2 diabetes mellitus with foot ulcer E11.621 Active 16707495 Problem Essential hypertension I10 Active 09802118 Problem Anxiety disorder, unspecified F41.9 Active 458125522 Problem Type 2 diabetes mellitus with other specified complication E11.69 Active 343203777 Problem Status post amputation of toe of left foot Z89.422 Active 581415506 Problem DM neuro manif type II E11.49 Active 30307977 Problem History of amputation of hallux Z89.419 Active 538118838 ALLERGIES Substance Reaction Event Type Date Status Penicillin V Potassium Unknown Drug Allergy February, Active ENCOUNTERS Encounter Location Date Diagnosis [place] [address] 8[address]83- 4542 Jun, [place] [address] 06551- 4816 May, [place] [address] 09862- 0055 May, Nausea R11.0 [place] [address] 29824- 9116 May, Other chronic pain G89.29 and Nausea R11.0 [place] [address] 28586- 7806 May, Left genital labial abscess N76.4 and BMI 60.0-69.9, adult Z68.44 [place] [address] 26897- 9485 May, [place] [address] 72442- 6790 Apr, [place] [address] 15937- 3580 Apr, Chronic migraine G43.709 [place] [address] 07898- 8344 Apr, [place] [address] 30519- 2337 Mar, Moderate persistent asthma without complication J45.40 [place] [address] 95015- 2873 Mar, Moderate persistent asthma without complication J45.40 [facility] [address] [address] Mar, [facility] [address] [place] [id number] [place] [address] 33089- 7954 February, Chronic migraine G43.709 [facility] [address] [place] [address] 96117- 0964 February, Chronic migraine G43.709 [facility] [address] [place] [id number] [place] [address] 97853- 5820 February, [facility] [address] [place] [id number] [place] [address] 65295- 5056 February, [facility] [address] [place] [id number] [place] [address] 64527- 9887 February, Type 2 diabetes mellitus with diabetic polyneuropathy E11.42 ; Moderate persistent asthma without complication J45.40 ; Type 2 diabetes mellitus with foot ulcer E11.621 ; Non-pressure chronic ulcer of right heel and midfoot limited to breakdown of skin L97.411 ; Chronic migraine G43.709 and BMI 60.0-69.9, adult Z68.44 [facility] [address] [place] [address] 70073 -7081 Jan, Asthma exacerbation, mild J45.901 ; Seasonal allergic rhinitis due to pollen J30.1 and BMI 60.0-69.9, adult Z68.44 [facility] [address] [place] [address] 77575- 6629 Jan, [facility] [address] [place] [id number] [place] [address] 12501- 8454 Jan, Other chronic pain G89.29 [facility] [address] [place] [id number] [place] [address] 81909- 4769 Dec, Type 2 diabetes mellitus with diabetic polyneuropathy E11.42 [facility] [address] [place] [id number] [place] [address] 28891- 5002 Dec, Type 2 diabetes mellitus with diabetic polyneuropathy E11.42 [place] [address] [place] [id number] [place] [address] 03912- 2795 15 Dec, 2017 [place] [address] [place] [id number] [place] [address] 56354- 5224 14 Dec, 2017 [place] [address] [place] [id number] [place] [address] 60422- 7105 Dec, Chronic kidney disease, stage III (moderate) N18.3 [facility] [place] [address] [place] [id number] [place] [address] 34318 -8167 09 Dec, 2017 Nausea R11.0 and Diarrhea, unspecified type R19.7 [place] [address] 72883- 9172 07 Dec, 2017 Chronic kidney disease, stage III (moderate) N18.3 and Type 2 diabetes mellitus with diabetic polyneuropathy E11.42 [place] [address] [place] [id number] [place] [address] 19887- 3843 06 Dec, 2017 [place] [address] 20493- 7965 Nov, Ulcer of right heel L97.419 and Type 2 diabetes mellitus with diabetic polyneuropathy E11.42 [facility] [address] [place] [id number] [place] [address] [id number] Nov, Dental examination Z01.20 [place] [address] [place] [id number] [place] [address] 18584- 3715 Nov, Open wound of right foot, initial encounter S91.301A [facility] [address] [place] [id number] [place] [address] 32538 -8716 Nov, Open wound of right foot, initial encounter S91.301A ; Non- intractable vomiting with nausea, unspecified vomiting type R11.2 and BMI 60.0- 69.9, adult Z68.44 [place] [address] 91732- 5789 Nov, [place] [address] [place] [id number] [place] [address] 36388- 4061 Nov, Other chronic pain G89.29 [place] [address] [place] [id number] [place] [address] 72210- 9706 Oct, Cellulitis of right lower limb L03.115 [place] [address] [place] [id number] [place] [address] 19462- 9256 Oct, [place] [address] [place] [id number] [place] [address] 54352- 3746 Oct, [place] [address] 84894- 5829 Oct, Cat scratch W55.03XA ; Cellulitis of right lower limb L03.115 ; Acute nasopharyngitis J00 ; BMI 60.0-69.9, adult Z68.44 and Cough R05 [place] [address] [place] [id number] [place] [address] 97139- 2150 Oct, Cat scratch W55.03XA ; Cutaneous abscess of right lower extremity L02.415 and Cellulitis of right lower limb L03.115 [place] [address] [place] [id number] [place] [address] 85393- 8991 Oct, Type 2 diabetes mellitus with diabetic polyneuropathy E11.42 [place] [address] [place] [id number] [place] [address] 53162- 7059 Oct, Other chronic pain G89.29 [place] [address] [place] [id number] [place] [address] 00655- 6965 Aug, [place] [address] [place] [id number] [place] [address] 79784- 4266 Jul, Other chronic pain G89.29 [place] [address] [place] [id number] [place] [address] 57277- 1105 Jul, [place] [address] [place] [id number] [place] [address] 56915- 4506 Jul, Chronic kidney disease, stage III (moderate) N18.3 [place] [address] 05065- 9242 04 Jul, 2017 Type 2 diabetes mellitus with diabetic polyneuropathy E11.42 ; Essential hypertension I10 ; Irregular menstrual cycle N92.6 ; Hypertriglyceridemia E78.1 ; Anxiety disorder, unspecified F41.9 ; Severe episode of recurrent major depressive disorder, without psychotic features F33.2 ; Tonsillolith J35.8 ; Intrinsic eczema L20.84 ; Subclinical hypothyroidism E03.9 ; Viral pharyngitis J02.9 and Encounter for immunization Z23 [place] [address] 53019- 6478 13 Jun, 2017 Essential hypertension I10 [place] [address] 19593- 8275 08 Jun, 2017 [place] [address] 08084- 9302 Jun, [place] [address] 33580- 6185 May, Moderate persistent asthma without complication J45.40 [place] [address] 90834- 0441 17 May, 2017 Pain in right foot M79.671 ; Pain in left foot M79.672 ; Other chronic pain G89.29 and Chronic prescription opiate use Z79.891 [place] [address] [place] [id number] [place] [address] 60850- 4416 May, [place] [address] 89449- 0633 May, [place] [address] 69229- 4114 Apr, [place] [address] 30046- 5954 Apr, Chronic migraine G43.709 [place] [address] [place] [address] 09501- 8864 Apr, Essential hypertension I10 ; Hypertriglyceridemia E78.1 and Chronic migraine G43.709 [place] [address] [place] [id number] [place] [address] 07737- 0940 Apr, [place] [address] [place] [id number] [place] [address] 99497- 3472 Apr, Sore throat J02.9 [place] [address] [place] [id number] [place] [address] 92385- 9961 Apr, [place] [address] 29165- 3605 Mar, Strep pharyngitis J02.0 and Non-intractable vomiting with nausea, unspecified vomiting type R11.2 [place] [id number] [place] [address] 94936- 9628 Mar, [place] [address] [place] [id number] [place] [address] 66029- 1068 Mar, [place] [address] [place] [id number] [place] [address] 39939- 7506 Mar, [place] [address] [place] [id number] [place] [address] 89580- 6336 Mar, Type 2 diabetes mellitus with diabetic polyneuropathy E11.42 ; Moderate persistent asthma without complication J45.40 ; Status post amputation of toe of left foot Z89.422 ; Acute seasonal allergic rhinitis, unspecified trigger J30.2 and Left shoulder pain, unspecified chronicity M25.512 [place] [address] [place] [id number] [place] [address] 18805- 3207 Mar, [place] [address] [place] [id number] [place] [address] 44892- 0999 February, Pre-op evaluation Z01.818 ; Type 2 diabetes mellitus with diabetic polyneuropathy E11.42 and Type 2 diabetes mellitus with foot ulcer E11.621 [place] [address] [address]- 1174 February, [place] [address] [place] [id number] [place] [address] 52110- 0599 February, [place] [address] [place] [id number] [place] [address] 28364- 5417 February, Toe infection L08.9 and Type 2 diabetes mellitus with other specified complication E11.69 [place] [address] [place] [id number] [place] [address] 98697- 2734 February, [place] [address] [place] [id number] [place] [address] 28521- 1953 Jan, Type 2 diabetes mellitus with diabetic polyneuropathy E11.42 [place] [address] [place] [id number] [place] [address] 39647- 2035 Jan, [place] [address] [place] [id number] [place] [address] 70958- 5484 Jan, Right upper quadrant pain R10.11 and Intractable vomiting with nausea, unspecified vomiting type R11.2 [place] [address] [place] [id number] [place] [address] 41902- 1043 Jan, Hypertriglyceridemia E78.1 and Essential hypertension I10 [place] [address] [place] [id number] [place] [address] 06018- 3163 07 Jan, 2017 Essential hypertension I10 ; Type 2 diabetes mellitus with diabetic polyneuropathy E11.42 and Hypertriglyceridemia E78.1 [place] [address] [place] [address] 77468- 9992 16 Dec, 2016 Type 2 diabetes mellitus with diabetic polyneuropathy E11.42 [place] [address] [place] [id number] [place] [address] 76960- 6731 Dec, Hypertriglyceridemia E78.1 ; Essential hypertension I10 ; Type 2 diabetes mellitus with diabetic polyneuropathy E11.42 ; Anxiety disorder , unspecified F41.9 and Moderate persistent asthma without complication J45.40 [place] [address], [place] [address]- 3029 15 Dec, 2016 Type 2 diabetes mellitus with diabetic polyneuropathy E11.42 [facility] [address] [place] [id number] [place] [address] [id number] Dec, [facility] [address] [place] [address] 20828- 3842 Nov, [facility] [address] [place] [id number] [place] [address] 53659- 9442 Nov, [facility] [address] [place] [address] 02154- 2063 Nov, [facility] [address] [place] [id number] [place] [address] 16006- 8996 Nov, Toe infection L08.9 [place] [address] [place] [id number] [place] [address] 88918- 9104 Nov, [facility] [address] [place] [id number] [place] [address] 52945- 5906 Oct, History of amputation of hallux Z89.419 [place] [address] [place] [address] 84360- 1162 Oct, Type 2 diabetes mellitus with diabetic polyneuropathy E11.42 [place] [address], [place] [address]- 5321 Oct, Type 2 diabetes mellitus with diabetic polyneuropathy E11.42 [facility] [address], [place] [address]- 7007 Oct, Acute osteomyelitis of left foot M86.172 ; Pre-op exam Z01.818 and Type 2 diabetes mellitus with diabetic polyneuropathy E11.42 [facility] [address] [place] [address] [address]- 0763 Oct, Foot ulcer, left, with unspecified severity L97.529 ; Acute osteomyelitis of left foot M86.172 and Type 2 diabetes mellitus with diabetic polyneuropathy E11.42 [facility] [address] [place] [address] [address]- 6051 Sep, [facility] [address] [place] [id number] [place] [address] 67172- 5492 Sep, Intractable vomiting with nausea, unspecified vomiting type R11.2 and Right upper quadrant pain R10.11 [facility] [address] [place] [id number] [place] [address] 67272- 5442 Aug, [facility] [address] [place] [id number] [place] [address] 97602- 5208 Jul, [facility] [address] [place] [id number] [place] [address] 31022- 5868 Jul, Preop examination Z01.818 [facility] [address] [place] [id number] [place] [address] 00283- 3507 Jul, [facility] [address] [place] [id number] [place] [address] 88792- 9894 Jul, [facility] [address] [place] [id number] [place] [address] 38964- 1919 Jul, Chronic osteomyelitis of left foot M86.672 and Ulcer of left foot, with unspecified severity L97.529 [facility] [address] [place] [address] 07871- 8814 Jul, Non-pressure chronic ulcer of other part of left foot with unspecified severity L97.529 [facility] [address] [address]- 0859 Jul, [facility] [address] [place] [address] [address]- 3445 Jul, [facility] [address] [place] [address] 60080- 5072 Jun, [facility] [address] [address]- 4618 Jun, [facility] [address] [place] [address] 54401- 3449 Jun, [place] [address] [place] [id number] [place] [address] 08704- 5974 Jun, Right upper quadrant pain R10.11 [place] [address] [place] [id number] [place] [address] 40546- 9608 Jun, [place] [address] 60013- 1213 Jun, Intractable vomiting with nausea, unspecified vomiting type R11.2 [place] [address] [place] [id number] [place] [address] 54213- 9938 13 Jun, 2016 Right upper quadrant pain R10.11 ; Migraine with aura and with status migrainosus, not intractable G43.101 and Intractable vomiting with nausea, unspecified vomiting type R11.2 [place] [address] [place] [id number] [place] [address] 69260- 0409 Jun, [place] [address] [place] [id number] [place] [address] 70461- 8291 Jun, Gastroenteritis K52.9 [place] [address] [place] [id number] [place] [address] 92487- 3356 May, [place] [address] [place] [id number] [place] [address] 80348- 6658 May, Hypertriglyceridemia E78.1 ; Essential hypertension I10 ; Type 2 diabetes mellitus with diabetic polyneuropathy E11.42 ; Moderate persistent asthma without complication J45.40 ; Type 2 diabetes mellitus with foot ulcer E11.621 ; Other chronic pain G89.29 ; Pain in right leg M79.604 ; Pain of left leg M79.605 ; Rash and nonspecific skin eruption R21 and Anxiety disorder, unspecified F41.9 [place] [address] [place] [address] 65586- 8761 May, Essential hypertension I10 ; Hypertriglyceridemia E78.1 ; Upper respiratory infection J06.9 ; Subclinical hypothyroidism E03.9 and Type 2 diabetes mellitus with diabetic polyneuropathy E11.42 [facility] [address] [place] [address] 60968- 4641 Apr, Hypertriglyceridemia E78.1 ; Subclinical hypothyroidism E03.9 ; Essential hypertension I10 and Type 2 diabetes mellitus with diabetic polyneuropathy E11.42 [facility] [address] [place] [id number] [place] [address] 13782- 7431 Mar, [facility] [address] [place] [id number] [place] [address] 53562- 8864 Mar, Ulcer of right heel L97.419 [facility] [address] [place] [id number] [place] [address] 03951- 0136 Mar, [facility] [address] [place] [id number] [place] [address] 18054- 1523 Mar, [facility] [address] [place] [id number] [place] [address] 49253- 3528 February, [facility] [address] [place] [id number] [place] [address] 45356- 0684 February, Ulcer of right heel L97.419 and DM neuro manif type II E11.49 [facility] [address] [place] [id number] [place] [address] 46049- 0919 Jan, [facility] [address] [place] [id number] [place] [address] 66551- 7346 Jan, Ulcer of right heel L97.419 ; Type 2 diabetes mellitus with foot ulcer E11.621 and Non-pressure chronic ulcer of other part of left foot with unspecified severity L97.529 [facility] [address], [place] [address]- 4501 Jan, [facility] [address] [place] [id number] [place] [address] 59555- 4145 Jan, [facility] [address], [place] [address]- 2300 Jan, Infection of toenail L03.039 [facility] [address], [place] [address]- 2118 14 Jan, 2016 Blister of toe of left foot, initial encounter S90.425A and Type 2 diabetes mellitus with diabetic polyneuropathy E11.42 [facility] [address] [address]- 5262 13 Jan, 2016 [facility] [address] [place] [address] 05721 -1461 12 Jan, 2016 Sore throat J02.9 and Strep pharyngitis J02.0 [facility] [address] [place] [address] 62358- 4659 Dec, Type 2 diabetes mellitus with diabetic polyneuropathy E11.42 ; Upper respiratory infection J06.9 ; Cough R05 and Asthma exacerbation J45.901 [place] [address] [place] [id number] [place] [address] 49424- 3532 Oct, [facility] [address] [place] [id number] [place] [address] 65084- 0615 Oct, [place] [address] [place] [id number] [place] [address] 81865- 3157 Oct, [facility] [address] [place] [id number] [place] [address] 31673- 2646 Oct, [place] [address] [place] [address] 56728- 6559 Sep, [facility] [address] [place] [id number] [place] [address] 31407- 9519 24 Aug, 2015 Anxiety disorder, unspecified F41.9 and Obesity E66.9 [place] [address] [place] [id number] [place] [address] 94938- 3172 Aug, Moderate persistent asthma without complication J45.40 [place] [address] [place] [address] 29871- 2759 Aug, Anxiety disorder, unspecified F41.9 [place] [address] [place] [id number] [place] [address] 91828- 4729 Aug, Chronic migraine G43.709 ; Encounter for immunization Z23 ; Hypertriglyceridemia E78.1 ; Type 2 diabetes mellitus with diabetic polyneuropathy E11.42 ; Moderate persistent asthma without complication J45.40 and Morbid obesity E66.01 [place] [address] [place] [id number] [place] [address] 38692- 9438 Jul, [place] [address] 17002- 1760 Jul, [place] [address] 25717- 0599 Jul, [place] [address] 29999- 5800 Jul, Subclinical hypothyroidism E03.9 [place] [address] 45064- 1564 Jun, Essential hypertension, benign 401.1 ; Diabetic ulcer of lower extremity 250.80 ; Asthma 493.90 ; Diabetes mellitus type II, uncontrolled 250.02 and Hyperlipidemia associated with type 2 diabetes mellitus 250.80 [place] [address] [place] [id number] [place] [address] 08875- 7460 Jun, [place] [address] [place] [id number] [place] [address] 79795- 1803 Jun, [place] [address] 07308- 6260 May, [place] [address] 64331- 1176 Apr, [place] [address] 59846- 9614 Apr, Viral upper respiratory infection 465.9 and Asthma 493.90 [place] [address] 76868- 0598 Mar, Abnormal ankle brachial index 796.4 [place] [address] [address]- 7640 February, [facility] [address] [place] [address] 51821- 1155 February, Essential hypertension, benign 401.1 [facility] [address] [address]- 9666 February, Diabetic peripheral neuropathy 250.60 ; Ulcer of heel and midfoot 707.14 and Decreased pedal pulses 785.9 [facility] [address] [address] February, [facility] [id number] [place] [address]- 7897 February, [facility] [id number] [place] [address] 23677- 1410 Jan, [facility] [id number] [place] [address] 628[address]- 3214 Jan, [facility] [address] [address] 3572 Dec, [facility] [id number] [place] [address] 264[address]- 3844 Dec, [facility] [address] [address] 37[address] Nov, [facility] [address] [address] 4867 Nov, [facility] [address] [address] 4769 Nov, [facility] [id number] [place] [address] 91853- 1106 Nov, [facility] [address] [address] 1791 Nov, [facility] [address] [id number] [address] 5534 Nov, [facility] [place] [facility] [address] [id number] [place] [address] 2416 Nov, [facility] [place] [facility] [address] [id number] [place] [address]- 3756 Nov, [facility] [place] [facility] [address] [id number] [place] [address]- 9576 Nov, [facility] [place] [facility] [address] [id number] [place] [address]- 6259 Oct, [facility] [place] [facility] [address] [id number] [place] [address]- 4636 Oct, [facility] [place] [facility] [address] [id number] [place] [address]- 6561 Oct, [facility] [place] [facility] [address] [id number] [place] [address]- 5896 Oct, [facility] [place] [facility] [address] [id number] [place] [address]- 9443 Oct, [facility] [place] [facility] [address] [id number] [place] [address]- 1973 Oct, [facility] [place] [facility] [address] [id number] [place] [address]- 7695 Oct, [facility] [place] [facility] [address] [id number] [place] [address]- 9705 Oct, [facility] [place] [facility] [address] [id number] [place] [address]- 7096 Oct, [facility] [place] [facility] [address] [id number] [place] [address]- 4654 Oct, [facility] [place] [facility] [address] [id number] [place] [address]- 0402 Oct, [facility] [place] [facility] [address] [id number] [place] [address]- 2815 Oct, [facility] [place] [facility] [address] [id number] [place] [address]- 5666 Oct, [facility] [place] [facility] [address] [id number] [place] [address]- 0184 Sep, [facility] [place] [facility] [address] [id number] [place] [address]- 1684 Sep, [facility] [place] [facility] [address] [id number] [place] [address]- 9075 Sep, [facility] [place] [facility] [address] [id number] [place] [address]- 0142 Sep, [facility] [place] [facility] [address] [id number] [place] [address]- 7508 Sep, [facility] [place] [facility] [address] [id number] [place] [address]- 3766 Sep, [facility] [place] [facility] [address] [id number] [place] [address]- 9247 Sep, [facility] [place] [facility] [address] [id number] [place] [address]- 1874 Sep, [facility] [place] [facility] [address] [id number] [place] [address]- 5563 Sep, [facility] [place] [facility] [address] [id number] [place] [address]- 9708 Sep, [facility] [place] [facility] [address] [id number] [place] [address]- 4439 Sep, [facility] [place] [facility] [address] [id number] [place] Sep, [facility] [place] [facility] [address] [id number] [place] [address] Sep, [facility] [place] [facility] [address] [id number] [place] [address]- 6263 Sep, [facility] [place] [facility] [address] [id number] [place] [address]- 6735 Sep, [facility] [place] [facility] [address] [id number] [place] [address] Sep, [facility] [place] [facility] [address] [id number] [place] [address]- 0738 Aug, [facility] [place] [facility] [address] [id number] [place] [address]609 Aug, [facility] [place] [facility] [address] [id number] [place] [address]- 9033 Aug, [facility] [place] [facility] [address] [id number] [place] [address]- 8441 Aug, [facility] [place] [facility] [address] [id number] [place] [address]- 3916 Aug, [facility] [place] [facility] [address] [id number] [place] [address]- 8883 Aug, [facility] [place] [facility] [address] [id number] [place] [address]- 3364 Aug, [facility] [place] [facility] [address] [id number] [place] [address]- 4746 Aug, [facility] [place] [facility] [address] [id number] [place] [address]- 0253 Jul, [facility] [place] [facility] [address] [id number], [place] [address]- 0697 31 Jul, 2014 [facility] [place] [facility] [address] [id number], [place] [address]- 3872 30 Jul, 2014 [facility] [place] [facility] [address] [id number] [place] [address]- 4585 15 Jul, 2014 [facility] [place] [facility] [address] [id number], [place] [address]- 8911 15 Jul, 2014 [facility] [place] [facility] [address] [id number] [place] [address] Jun, [facility] [place] [facility] [address] [id number] [place] [address]- 4802 Jun, [facility] [place] [facility] [address] [id number] [place] [address]- 3751 Jun, [facility] [place] [facility] [address] [id number] [place] [address]- 9570 Jun, [facility] [place] [facility] [address] [id number] [place] [address]- 2018 Jun, [facility] [place] [facility] [address] [id number] [place] [address]- 5159 May, [facility] [place] [facility] [address] [id number] [place] [address]- 7736 May, [facility] [place] [facility] [address] [id number] [place] [address]- 5921 Apr, [facility] [place] [facility] [address] [id number] [place] [address]- 3151 Apr, [facility] [place] [facility] [address] [id number] [place] [address]- 2994 Apr, [facility] [place] [facility] [address] [id number] [place] [address]- 5477 Apr, [facility] [place] [facility] [address] [id number] [place] [address]- 7232 Apr, [facility] [place] [facility] [address] [id number] [place] [address]- 7389 Apr, [facility] [place] [facility] [address] [id number] [place] [address]- 6463 Mar, [facility] [place] [facility] [address] [id number] [place] [address]- 6622 Mar, [facility] [place] [facility] [address] [id number] [place] [address]- 3880 Mar, [facility] [place] [facility] [address] [id number] [place] [address]- 7506 Mar, [facility] [place] [facility] [address] [id number] [place] [address]- 4368 Mar, [facility] [place] [facility] [address] [id number] [place] [address]- 0630 Mar, [facility] [place] [facility] [address] [id number] [place] [address]- 6068 Mar, [facility] [place] [facility] [address] [id number] [place] [address]- 2022 Mar, [facility] [place] [facility] [address] [id number] [place] [address]- 3178 Mar, [facility] [place] [facility] [address] [id number] [place] [address]- 5498 Mar, [facility] [place] [facility] [address] [id number] [place] [address]- 2993 Mar, [facility] [place] [facility] [address] [id number] [place] [address]- 9493 Mar, [facility] [place] [facility] [address] [id number] [place] [address]- 8229 Mar, [facility] [place] [facility] [address] [id number] [place] [address]- 8625 Mar, [facility] [place] [facility] [address] [id number] [place] [address]- 9308 Mar, [facility] [place] [facility] [address] [id number] [place] [address]- 8989 Mar, [facility] [place] [facility] [address] [id number] [place] [address]- 0121 February, [facility] [place] [facility] [address] [id number] [place] [address]- 2320 February, [facility] [place] [facility] [address] [id number] [place] [address]- 3527 February, [facility] [place] [facility] [address] [id number] [place] [address]- 2110 February, [facility] [place] [facility] [address] [id number] [place] [address]- 5156 February, [facility] [place] [facility] [address] [id number] [place] [address]- 3743 February, [facility] [place] [facility] [address] [id number] [place] [address]- 2676 February, [facility] [place] [facility] [address] [id number] [place] [address]- 4794 February, [facility] [place] [facility] [address] [id number] [place] [address]- 0372 Jan, [facility] [place] [facility] [address] [id number] [place] [address]- 1628 Jan, [facility] [place] [facility] [address] [id number] [place] [address]- 3311 Dec, [facility] [place] [facility] [address] [id number] [place] [address]- 5418 Dec, [facility] [place] [facility] [address] [id number] [place] [address]- 9978 Dec, [facility] [place] [facility] [address] [id number] [place] [address]- 4948 Dec, [facility] [place] [facility] [address] [id number] [place] [address]- 2857 Dec, [facility] [place] [facility] [address] [id number] [place] [address]- 9104 Dec, [facility] [place] [facility] [address] [id number] [place] [address]- 0977 Dec, [facility] [place] [facility] [address] [id number] [place] [address]- 3131 Dec, [facility] [place] [facility] [address] [id number] [place] [address]- 4562 Dec, [facility] [place] [facility] [address] [id number] [place] [address]- 2768 17 Dec, 2013 [facility] [place] [facility] [address] [id number] [place] [address]- 7267 14 Dec, 2013 [facility] [place] [facility] [address] [id number] [place] [address]- 3554 14 Dec, 2013 [facility] [place] [facility] [address] [id number] [place] [address]- 1562 Dec, [facility] [place] [facility] [address] [id number] [place] [address]- 3340 Dec, [facility] [place] [facility] [address] [id number] [place] [address]- 3985 Nov, [facility] [place] [facility] [address] [id number] [place] [address]- 4594 Nov, [facility] [place] [facility] [address] [id number] [place] [address]- 4710 Oct, [facility] [place] [facility] [address] [id number] [place] [address]- 0674 Oct, [facility] [place] [facility] [address] [id number] [place] [address]- 3705 Oct, [facility] [place] [facility] [address] [id number] [place] [address]- 1351 Oct, [facility] [place] [facility] [address] [id number] [place] [address]- 6474 Oct, [facility] [place] [facility] [address] [id number] [place] [address]- 0973 Oct, [facility] [place] [facility] [address] [id number] [place] [address]- 6606 Oct, [facility] [place] [facility] [address] [id number] [place] [address]- 0793 Sep, [facility] [place] [facility] [address] [id number] [place] [address]- 4898 Sep, [facility] [address] [id number] [place] [address]- 7158 Sep, [facility] [place] [facility] [address] [id number] [place] [address]- 6776 Sep, [facility] [address] [id number] [place] [address]- 4147 Sep, [facility] [place] [facility] [address] [id number] [place] [address]- 2302 Sep, [facility] [address] [id number] [place] [address]- 8976 Sep, [facility] [address] [id number] [place] [address]- 7133 Sep, [facility] [address] [id number] [place] [address]- 3954 Sep, [facility] [place] [facility] [address] [id number] [place] [address]- 4664 Sep, [facility] [address] [id number] [place] [address]- 9144 Sep, [facility] [place] [facility] [address] [id number] [place] [address]- 5913 Sep, [facility] [place] [facility] [address] [id number] [place] [address]- 4011 16 Sep, 2013 [facility] [place] [facility] [address] [id number], [place] [address]- 7956 16 Sep, 2013 [facility] [place] [facility] [address] [id number] [place] [address]- 8703 Sep, [facility] [place] [facility] [address] [id number] [place] [address]- 9455 Sep, [facility] [place] [facility] [address] [id number] [place] [address]- 3409 Sep, [facility] [place] [facility] [address] [id number] [place] [address]- 7287 Sep, [facility] [address] [id number] [place] [address]- 4185 Sep, [facility] [place] [facility] [address] [id number] [place] [address]- 1990 Aug, [facility] [address] [id number] [place] [address]- 0815 Aug, [facility] [place] [facility] [address] [id number] [place] [address]- 1166 Aug, [facility] [address] [id number] [place] [address]- 2418 Aug, [facility] [place] [facility] [address] [id number] [place] [address]- 6702 Aug, [facility] [address] [id number] [place] [address]- 3970 Aug, [facility] [place] [facility] [address] [id number] [place] [address]- 3763 Aug, [facility] [place] [facility] [address] [id number] [place] [address]- 4615 Aug, [facility] [place] [facility] [address] [id number] [place] [address]- 5595 Aug, [facility] [place] [facility] [address] [id number] [place] [address]- 8331 Aug, [facility] [place] [facility] [address] [id number], [place] [address]- 9715 Aug, [facility] [place] [facility] [address] [id number] [place] [address]- 9216 Aug, [facility] [place] [facility] [address] [id number] [place] [address]- 7025 Aug, [facility] [place] [facility] [address] [id number], [place] [address]- 9834 Aug, [facility] [place] [facility] [address] [id number] [place] [address]- 6090 Aug, [facility] [place] [facility] [address] [id number] [place] [address]- 3985 Aug, [facility] [place] [facility] [address] [id number] [place] [address]- 9652 Aug, [facility] [place] [facility] [address] [id number] [place] [address]- 4313 Jul, [facility] [place] [facility] [address] [id number] [place] [address]- 9053 Jul, [facility] [place] [facility] [address] [id number] [place] [address]- 7315 Jul, [facility] [place] [facility] [address] [id number] [place] [address]- 4999 Jul, [facility] [place] [facility] [address] [id number] [place] [address]- 2130 Jul, [facility] [place] [facility] [address] [id number] [place] [address]- 5156 Jul, [facility] [place] [facility] [address] [id number] [place] [address]- 3627 Jul, [facility] [place] [facility] [address] [id number] [place] [address]- 1257 27 Jun, 2012 [facility] [place] [facility] [address] [id number] [place] [address]- 8953 20 Sep, 2012 [facility] [place] [facility] [address] [id number] [place] [address]- 6369 17 Sep, 2012 [facility] [place] [facility] [address] [id number] [place] [address]- 6301 10 Sep, 2012 [facility] [place] [facility] [address] [id number] [place] [address]- 2779 06 Sep, 2012 [facility] [place] [facility] [address] [id number], [place] [address]- 6364 06 Jun, 2013 [facility] [address] [address]- 5595 Jun, [facility] [address] 2329 Jun, [facility] [address] [address]- 2905 May, [facility] [id number] [place] [address]- 1978 May, [facility] [address] [address]- 0794 May, [facility] [id number] [place] [address] 222[address]- 8631 May, [facility] [id number] [place] [address] 02125- 0745 May, [facility] [id number] [place] [address]- 4793 May, [facility] [address] [address]- 8886 May, [facility] [address] [address]- 8787 May, IMMUNIZATIONS No Known Immunizations SOCIAL HISTORY Never Assessed REASON FOR VISIT Diabetes--tcuppettRN, sore of foot that needs evaluated., Asthma is getting worse PLAN OF CARE Activity Details Follow Up 3 Months Reason:DMII Future/Pending Procedure FOOT EXAM PERFORMED VITAL SIGNS Height 62 in 2018-03-02 Weight 350.0 lbs 2018-03-02 Temperature 98.5 degrees Fahrenheit 2018-03-02 Heart Rate 88 bpm 2018-03-02 Respiratory Rate 20 2018-03-02 BMI 64.01 kg/m2 2018-03-02 Blood pressure systolic 118 mmHg 2018-03-02 Blood pressure diastolic 74 mmHg 2018-03-02 MEDICATIONS Medication Instructions Dosage Frequency Start Date End Date Duration Status Probiotic - Active Flonase 50 MCG/ACT Nasally Once a day 1 spray in each nostril 24h 30 Jan, 2018 30 day(s) Active Hydrochlorothiazide 25 MG TAKE ONE TABLET BY MOUTH ONCE DAILY 90 Active Hydrocodone-Acetaminophen 5-325 MG Orally every 4- 6 hrs as needed 1 tablet Nov, Active Cromolyn Sodium 4 % Ophthalmic 2 times a day 2 drops into affected eye as needed 12h 18 Feb, 2017 Active Atorvastatin Calcium 80 MG Orally Once a day 1 tablet 24h 30 Active Excedrin Migraine 250-250-65 MG Orally as directed 2 tablets as needed Active Metoprolol Tartrate 50 MG TAKE ONE TABLET BY MOUTH TWICE DAILY WITH FOOD 90 Active Sertraline HCl 100 MG Orally Once a day 1 tablet 24h 90 days Active Gabapentin 600 MG Orally 3 times a day 1 capsule 8h 90 days Active Metformin HCl 1000 MG Orally 2 times a day 1 tablet with meals 12h 90 days Active Levemir Flexpen 100 UNIT/ML subcutaneously 2 times a day 50 units 12h Active Loratadine 10 mg Orally Once a day 1 tablet 24h 90 Active NovoLog Flexpen 100 UNIT/ML Subcutaneous 3 times a day 30 units 8h Active Multivitamin 1 Tablet 1 time per day May, Active Zofran 8 MG Orally every 8 hours, PRN as directed Dec, Active Lisinopril 40 MG TAKE ONE TABLET BY MOUTH ONCE DAILY 90 Active Fenofibrate 160 MG TAKE ONE TABLET BY MOUTH ONCE DAILY WITH A MEAL 90 Active Pulmicort Flexhaler 90 MCG/ACT INHALE ONE PUFF BY MOUTH TWICE DAILY 30 Active Glucometer One Touch Ultra as directed Dec, Active Test strips One Touch Ultra as directed 6h Dec, Active Pulmicort Flexhaler 90 MCG/ACT Inhalation Twice a day 2 puffs 12h Active Rizatriptan Benzoate 10 mg Orally PRN 1 tablet as needed at onset of headache , may repeat in 2 hours x 2 if needed Apr, Active Montelukast Sodium 10 MG TAKE ONE TABLET BY MOUTH ONCE DAILY IN THE EVENING 90 Active Albuterol Sulfate 90 mcg/actuation Inhalation every 4-6 hours as needed 2 puffs May, Active RESULTS No Results PROCEDURES Procedure Date Ordered Result Body Site FOOT EXAM PERFORMED March 02, 2018 INSTRUCTIONS MEDICATIONS ADMINISTERED No Known Medications MEDICAL (GENERAL) HISTORY Type Description Date Medical History type I diabetes Medical History hypertension Medical History hyperlipidemia Medical History asthma Medical History migraine headaches Medical History allergic rhinitis Medical History neuropathy Medical History Chronic osteomyelitis, site unspecified Medical History 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 Surgical History appendectomy [facility] 1995 Surgical History salpingectomy [facility] Surgical History bladder surgery-stretch [facility] 2003 Surgical History exploratory laparoscopy [facility] 1995 Surgical History amputation, toe (R great) Surgical History amputation, (R forefoot) 2015 Surgical History amputation, toe Left second 12/2016 Surgical History amputation, 4th left toe 02/2017 Hospitalization History Left foot cellulitis, left 2nd toe amputation-[facility] 12/23 Hospitalization History Surgery Hospitalizations
--- OUTSIDE RECORDS SUMMARY | 2018-08-22 09:04 | XMS REPORT ---
Author Author LUDIVINA STEPHANEI [facility] Address [address] [place] [address] Care Team Providers Care Desktop Support Engineer Name Role Phone DEE DEE FLORENCEHANY Unavailable PROBLEMS Type Condition ICD9-CM Code RZP93-EP Code Onset Dates Condition Status SNOMED Code Problem Subclinical hypothyroidism E03.9 Active 83933278 Problem Hypertriglyceridemia E78.1 Active 868607268 Problem Type 2 diabetes mellitus with diabetic polyneuropathy E11.42 Active 528507911 Problem Type 2 diabetes mellitus with diabetic chronic 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 Active 657282591 Problem Other chronic pain G89.29 Active 93670659 Problem Type 2 diabetes mellitus with other skin complications E11.628 Active 20940556 Problem Pain in left foot M79.672 Active 32112012 Problem Irregular menstrual cycle N92.6 Active 62393266 Problem Pain in right foot M79.671 Active 04288067 Problem Tonsillolith J35.8 Active 8104167 Problem Chronic prescription opiate use Z79.891 Active 112573921 Problem Seasonal allergic rhinitis due to pollen J30.1 Active 81826233 Problem Asthma exacerbation, mild J45.901 Active 647483387 Problem Chronic kidney disease, stage III (moderate) N18.3 Active 262161410 Problem Chronic migraine G43.709 Active 37443875 Problem Moderate persistent asthma without complication J45.40 Active 788491746 Problem Intrinsic eczema L20.84 Active 47822608 Problem Severe episode of recurrent major depressive disorder, without psychotic features F33.2 Active 72054387 Problem Non-pressure chronic ulcer of right heel and midfoot limited to breakdown of skin L97.411 Active 310839930 Problem Ulcer of right heel L97.419 Active 670676129 Problem Obesity E66.9 Active 944063426 Problem Type 2 diabetes mellitus with foot ulcer E11.621 Active 80194732 Problem Essential hypertension I10 Active 00638260 Problem Anxiety disorder, unspecified F41.9 Active 269268296 Problem Type 2 diabetes mellitus with other specified complication E11.69 Active 098491536 Problem Status post amputation of toe of left foot Z89.422 Active 382349061 Problem DM neuro manif type II E11.49 Active 77254122 Problem History of amputation of hallux Z89.419 Active 956601993 ALLERGIES No Information ENCOUNTERS Encounter Location Date Diagnosis [facility] [address] 40674- [address] 26 Jun, 2018 [facility] [address] 24339- 1322 08 May, 2018 [place] [address] 39333- 8821 07 May, 2018 Nausea R11.0 [place] [address] 03377- 5092 May, Other chronic pain G89.29 and Nausea R11.0 [place] [address] 72236- 8741 May, Left genital labial abscess N76.4 and BMI 60.0-69.9, adult Z68.44 [place] [address] 91064- 1155 May, [place] [address] [place] [id number] [place] [address] 38397- 2137 Apr, [place] [address] [place] [id number] [place] [address] 58219- 0670 Apr, Chronic migraine G43.709 [facility] [address] [place] [id number] [place] [address] 98551- 0009 Apr, [place] [address] 94498- 2383 Mar, Moderate persistent asthma without complication J45.40 [place] [address] [place] [id number] [place] [address] 93577- 5721 07 Mar, 2018 Moderate persistent asthma without complication J45.40 [place] [address] [place] [address] [address] Mar, [facility] [id number] [place] [address] 48497- 9152 February, Chronic migraine G43.709 [facility] [address] [address] 1583 February, Chronic migraine G43.709 [facility] [address] [place] [id number] [place] [address] 22764- 5929 February, [facility] [id number] [place] [address] 92049- 9078 February, [place] [address] [place] [id number] [place] [address] 61093- 4233 February, Type 2 diabetes mellitus with diabetic polyneuropathy E11.42 ; Moderate persistent asthma without complication J45.40 ; Type 2 diabetes mellitus with foot ulcer E11.621 ; Non-pressure chronic ulcer of right heel and midfoot limited to breakdown of skin L97.411 ; Chronic migraine G43.709 and BMI 60.0-69.9, adult Z68.44 [facility] [address] [place] [id number] [place] [address] 87418 -6405 Jan, Asthma exacerbation, mild J45.901 ; Seasonal allergic rhinitis due to pollen J30.1 and BMI 60.0-69.9, adult Z68.44 [facility] [id number] [place] [address] 58062- 7445 Jan, [facility] [address] [place] [id number] [place] [address] 56998- 7667 Jan, Other chronic pain G89.29 [place] [address] [place] [id number] [place] [address] 11073- 5903 Dec, Type 2 diabetes mellitus with diabetic polyneuropathy E11.42 [facility] [address] [place] [id number] [place] [address] 06494- 4038 Dec, Type 2 diabetes mellitus with diabetic polyneuropathy E11.42 [place] [id number] [place] [address] 91034- 1716 15 Dec, 2017 [place] [address] 19510- 9312 14 Dec, 2017 [place] [address] [place] [id number] [place] [address] 63259- 6019 13 Dec, 2017 Chronic kidney disease, stage III (moderate) N18.3 [facility] [place] [address] [place] [id number] [place] [address] 52756 -3798 09 Dec, 2017 Nausea R11.0 and Diarrhea, unspecified type R19.7 [place] [address] 28071- 3254 07 Dec, 2017 Chronic kidney disease, stage III (moderate) N18.3 and Type 2 diabetes mellitus with diabetic polyneuropathy E11.42 [place] [address] [place] [id number] [place] [address] 44311- 5185 06 Dec, 2017 [place] [address] [place] [id number] [place] [address] 96909- 7496 Nov, Ulcer of right heel L97.419 and Type 2 diabetes mellitus with diabetic polyneuropathy E11.42 [facility] [address] [place] [id number] [place] [address] [id number] Nov, Dental examination Z01.20 [place] [address] [place] [id number] [place] [address] 06527- 3206 Nov, Open wound of right foot, initial encounter S91.301A [facility] [address] [place] [address] 94125 -2255 Nov, Open wound of right foot, initial encounter S91.301A ; Non- intractable vomiting with nausea, unspecified vomiting type R11.2 and BMI 60.0- 69.9, adult Z68.44 [place] [address] [place] [id number] [place] [address] 90025- 5715 Nov, [place] [address] [place] [id number] [place] [address] 16539- 6347 Nov, Other chronic pain G89.29 [place] [address] [place] [id number] [place] [address] 00502- 3055 Oct, Cellulitis of right lower limb L03.115 [place] [address] [place] [id number] [place] [address] 16533- 3443 Oct, [place] [address] 68711- 6516 Oct, [place] [address] 09179- 9546 Oct, Cat scratch W55.03XA ; Cellulitis of right lower limb L03.115 ; Acute nasopharyngitis J00 ; BMI 60.0-69.9, adult Z68.44 and Cough R05 [address] 05313- 0640 Oct, Cat scratch W55.03XA ; Cutaneous abscess of right lower extremity L02.415 and Cellulitis of right lower limb L03.115 [place] [address] [place] [id number] [place] [address] 13443- 4090 Oct, Type 2 diabetes mellitus with diabetic polyneuropathy E11.42 [place] [address] [place] [id number] [place] [address] 74917- 2767 Oct, Other chronic pain G89.29 [place] [address] [place] [id number] [place] [address] 99134- 6994 Aug, [place] [address] [place] [id number] [place] [address] 38138- 8815 Jul, Other chronic pain G89.29 [place] [address] [place] [id number] [place] [address] 83904- 2341 Jul, [place] [address] [place] [id number] [place] [address] 98066- 2306 Jul, Chronic kidney disease, stage III (moderate) N18.3 [place] [address] 41458- 0866 04 Jul, 2017 Type 2 diabetes mellitus with diabetic polyneuropathy E11.42 ; Essential hypertension I10 ; Irregular menstrual cycle N92.6 ; Hypertriglyceridemia E78.1 ; Anxiety disorder, unspecified F41.9 ; Severe episode of recurrent major depressive disorder, without psychotic features F33.2 ; Tonsillolith J35.8 ; Intrinsic eczema L20.84 ; Subclinical hypothyroidism E03.9 ; Viral pharyngitis J02.9 and Encounter for immunization Z23 [place] [address] 74759- 6580 13 Jun, 2017 Essential hypertension I10 [place] [address] 43505- 3695 08 Jun, 2017 [place] [address] 54289- 2212 07 Jun, 2017 [place] [address] 55679- 4189 May, Moderate persistent asthma without complication J45.[address] 03984- 4590 17 May, 2017 Pain in right foot M79.671 ; Pain in left foot M79.672 ; Other chronic pain G89.29 and Chronic prescription opiate use Z79.891 [place] [address] 08134- 6329 May, [place] [address] 36497- 3229 May, [place] [address] 84855- 2365 Apr, [place] [address] 84410- 1723 Apr, Chronic migraine G43.709 [place] [address] [place] [address]- 4026 Apr, Essential hypertension I10 ; Hypertriglyceridemia E78.1 and Chronic migraine G43.709 [place] [address] [place] [id number] [place] [address] 00130- 2844 Apr, [place] [address] [place] [id number] [place] [address] 93051- 7731 Apr, Sore throat J02.9 [place] [address] [place] [id number] [place] [address] 83700- 4395 Apr, [place] [address] [place] [id number] [place] [address] 14637- 0371 Mar, Strep pharyngitis J02.0 and Non-intractable vomiting with nausea, unspecified vomiting type R11.2 [place] [address] [place] [id number] [place] [address] 57285- 0910 Mar, [place] [address] [place] [id number] [place] [address] 48839- 7089 Mar, [place] [address] [place] [id number] [place] [address] 80951- 0346 Mar, [place] [address] [place] [id number] [place] [address] 44108- 5711 Mar, Type 2 diabetes mellitus with diabetic polyneuropathy E11.42 ; Moderate persistent asthma without complication J45.40 ; Status post amputation of toe of left foot Z89.422 ; Acute seasonal allergic rhinitis, unspecified trigger J30.2 and Left shoulder pain, unspecified chronicity M25.512 [place] [address] [place] [id number] [place] [address] 38907- 2214 Mar, [place] [address] 01029- 1719 February, Pre-op evaluation Z01.818 ; Type 2 diabetes mellitus with diabetic polyneuropathy E11.42 and Type 2 diabetes mellitus with foot ulcer E11.621 [place] [address] [place] [id number] [place] [address] 16077- 7098 February, [place] [address] [place] [id number] [place] [address] 72999- 6608 February, [place] [address] [place] [id number] [place] [address] 62546- 4400 February, Toe infection L08.9 and Type 2 diabetes mellitus with other specified complication E11.69 [place] [address] [place] [id number] [place] [address] 93059- 5235 February, [place] [address] [place] [id number] [place] [address] 14270- 6120 Jan, Type 2 diabetes mellitus with diabetic polyneuropathy E11.42 [place] [address] [place] [id number] [place] [address] 90014- 8712 Jan, [place] [address] [place] [id number] [place] [address] 09473- 3219 Jan, Right upper quadrant pain R10.11 and Intractable vomiting with nausea, unspecified vomiting type R11.2 [place] [address] [place] [id number] [place] [address] 77927- 6494 Jan, Hypertriglyceridemia E78.1 and Essential hypertension I10 [place] [address] [place] [id number] [place] [address] 80858- 1419 07 Jan, 2017 Essential hypertension I10 ; Type 2 diabetes mellitus with diabetic polyneuropathy E11.42 and Hypertriglyceridemia E78.1 [place] [address] [place] [id number] [place] [address] 97155- 3752 Dec, Type 2 diabetes mellitus with diabetic polyneuropathy E11.42 [place] [address] [place] [id number] [place] [address] 90630- 4324 Dec, Hypertriglyceridemia E78.1 ; Essential hypertension I10 ; Type 2 diabetes mellitus with diabetic polyneuropathy E11.42 ; Anxiety disorder , unspecified F41.9 and Moderate persistent asthma without complication J45.40 [place] [address] [place] [id number] [place] [address] 85039- 9056 Dec, Type 2 diabetes mellitus with diabetic polyneuropathy E11.42 [facility] [address] [place] [id number] [place] [address] [id number] Dec, [facility] [id number] [place] [address] 78235- 2361 Nov, [facility] [id number] [place] [address] 12903- 0959 Nov, [facility] [address] [place] [id number] [place] [address] 33771- 2939 Nov, [facility] [address] [place] [id number] [place] [address] 06223- 8285 Nov, Toe infection L08.9 [facility] [address] [place] [id number] [place] [address] 47897- 8503 Nov, [facility] [address] [place] [id number] [place] [address] 95998- 1802 Oct, History of amputation of hallux Z89.419 [facility] [id number] [place] [address] 43678- 0249 Oct, Type 2 diabetes mellitus with diabetic polyneuropathy E11.42 [facility] [id number] [place] [address] 68499- 1728 Oct, Type 2 diabetes mellitus with diabetic polyneuropathy E11.42 [facility] [id number] [place] [address] 47395- 0110 Oct, Acute osteomyelitis of left foot M86.172 ; Pre-op exam Z01.818 and Type 2 diabetes mellitus with diabetic polyneuropathy E11.42 [facility] [id number] [place] [address] 74643- 1191 Oct, Foot ulcer, left, with unspecified severity L97.529 ; Acute osteomyelitis of left foot M86.172 and Type 2 diabetes mellitus with diabetic polyneuropathy E11.42 [facility] [address] [place] [id number] [address]- 3080 Sep, [facility] [address] [place] [id number] [place] [address] 74337- 8734 Sep, Intractable vomiting with nausea, unspecified vomiting type R11.2 and Right upper quadrant pain R10.11 [facility] [address] [place] [id number] [place] [address] 21006- 0607 Aug, [facility] [address] [place] [id number] [place] [address] 24873- 0323 Jul, [facility] [address] [place] [id number] [place] [address] 74360- 0159 Jul, Preop examination Z01.818 [facility] [address] [place] [id number] [place] [address] 45437- 5215 Jul, [facility] [address] [place] [id number] [place] [address] 62414- 1003 Jul, [facility] [address] [place] [id number] [place] [address] 13533- 7660 Jul, Chronic osteomyelitis of left foot M86.672 and Ulcer of left foot, with unspecified severity L97.529 [facility] [address] [address] [address]- 6809 Jul, Non-pressure chronic ulcer of other part of left foot with unspecified severity L97.529 [facility] [address] [place] [id number] [place] [address] 27736- 2997 Jul, [facility] [address] [place] [id number] [place] [address] 56327- 3683 Jul, [facility] [address] [place] [id number] [place] [address] 66296- 7845 Jun, [facility] [id number] [place] [address] 88563- 0132 Jun, [facility] [address] [place] [id number] [place] [address] 80349- 2508 Jun, [place] [id number] [place] [address] 77883- 0663 Jun, Right upper quadrant pain R10.11 [place] [address] [place] [id number] [place] [address] 41231- 3685 Jun, [place] [address] [place] [id number] [place] [address] 05632- 4578 Jun, Intractable vomiting with nausea, unspecified vomiting type R11.2 [place] [address] [place] [id number] [place] [address] 36844- 2736 13 Jun, 2016 Right upper quadrant pain R10.11 ; Migraine with aura and with status migrainosus, not intractable G43.101 and Intractable vomiting with nausea, unspecified vomiting type R11.2 [place] [address] [place] [id number] [place] [address] 29811- 5697 Jun, [place] [address] [place] [id number] [place] [address] 78172- 5385 Jun, Gastroenteritis K52.9 [place] [address] [place] [id number] [place] [address] 96350- 9653 May, [place] [address] [place] [id number] [place] [address] 80708- 1621 May, Hypertriglyceridemia E78.1 ; Essential hypertension I10 ; Type 2 diabetes mellitus with diabetic polyneuropathy E11.42 ; Moderate persistent asthma without complication J45.40 ; Type 2 diabetes mellitus with foot ulcer E11.621 ; Other chronic pain G89.29 ; Pain in right leg M79.604 ; Pain of left leg M79.605 ; Rash and nonspecific skin eruption R21 and Anxiety disorder, unspecified F41.9 [place] [address] [place] [id number] [place] [address] 17826- 2424 May, Essential hypertension I10 ; Hypertriglyceridemia E78.1 ; Upper respiratory infection J06.9 ; Subclinical hypothyroidism E03.9 and Type 2 diabetes mellitus with diabetic polyneuropathy E11.[id number] [place] [address] 56824- 6935 Apr, Hypertriglyceridemia E78.1 ; Subclinical hypothyroidism E03.9 ; Essential hypertension I10 and Type 2 diabetes mellitus with diabetic polyneuropathy E11.42 [facility] [address] [place] [id number] [place] [address] 76938- 1024 Mar, [facility] [address] [place] [id number] [place] [address] 96120- 9914 Mar, Ulcer of right heel L97.419 [facility] [address] [place] [id number] [place] [address] 00084- 3002 Mar, [place] [address] [place] [id number] [place] [address] 34374- 0195 Mar, [facility] [address] [place] [id number] [place] [address] 51253- 6850 February, [place] [address] [place] [id number] [place] [address] 57337- 8895 February, Ulcer of right heel L97.419 and DM neuro manif type II E11.49 [place] [address] [place] [id number] [place] [address] 39486- 2819 Jan, [place] [address] [place] [id number] [place] [address] 88882- 4589 Jan, Ulcer of right heel L97.419 ; Type 2 diabetes mellitus with foot ulcer E11.621 and Non-pressure chronic ulcer of other part of left foot with unspecified severity L97.529 [facility] [address] [place] [address] 25304- 0508 Jan, [facility] [address] [place] [id number] [place] [address] 44614- 7221 Jan, [facility] [id number] [place] [address] 05687- 4116 Jan, Infection of toenail L03.039 [place] [address] [place] [id number] [place] [address] 80081- 1688 14 Jan, 2016 Blister of toe of left foot, initial encounter S90.425A and Type 2 diabetes mellitus with diabetic polyneuropathy E11.42 [facility] [address] [id number] [place] [address] 74070- 0189 13 Jan, 2016 [facility] [address] [place] [address] [id number] [place] [address] 89799 -9333 Jan, Sore throat J02.9 and Strep pharyngitis J02.0 [facility] [address] [place] [id number] [place] [address] 80642- 7169 Dec, Type 2 diabetes mellitus with diabetic polyneuropathy E11.42 ; Upper respiratory infection J06.9 ; Cough R05 and Asthma exacerbation J45.901 [place] [address] [place] [id number] [place] [address] 05278- 9618 Oct, [place] [address] 28563- 2679 Oct, [facility] [address] [id number] [place] [address] 84874- 9854 Oct, [facility] [address] [place] [id number] [place] [address] 20569- 8646 Oct, [place] [address] [place] [id number] [place] [address] 56214- 7717 Sep, [facility] [address] [place] [id number] [place] [address] 02420- 8711 Aug, Anxiety disorder, unspecified F41.9 and Obesity E66.9 [place] [address] 95703- 1568 Aug, Moderate persistent asthma without complication J45.40 [place] [address] [place] [id number] [place] [address] 65624- 3570 Aug, Anxiety disorder, unspecified F41.9 [facility] [address] 64657- 0902 Aug, Chronic migraine G43.709 ; Encounter for immunization Z23 ; Hypertriglyceridemia E78.1 ; Type 2 diabetes mellitus with diabetic polyneuropathy E11.42 ; Moderate persistent asthma without complication J45.40 and Morbid obesity E66.01 [place] [address] [place] [id number] [place] [address] 02900- 7949 Jul, [place] [address] 21197- 9786 Jul, [place] [address] [place] [id number] [place] [address] 16621- 3937 Jul, [address] 00833- 5752 Jul, Subclinical hypothyroidism E03.[address] 50051- 4307 Jun, Essential hypertension, benign 401.1 ; Diabetic ulcer of lower extremity 250.80 ; Asthma 493.90 ; Diabetes mellitus type II, uncontrolled 250.02 and Hyperlipidemia associated with type 2 diabetes mellitus [address] 80044- 9763 Jun, [place] [address] [id number] [place] [address] 21886- 9900 Jun, [place] [address] [place] [id number] [place] [address] 25817- 4256 May, [place] [address] 64183- 0856 Apr, [place] [address] 32127- 7782 Apr, Viral upper respiratory infection 465.9 and Asthma 493.[address] 09837- 3359 Mar, Abnormal ankle brachial index 796.[address] 05643- 1031 February, [facility] [id number] [place] [address] February, Essential hypertension, benign 401.1 [facility] [id number] [place] [address] February, Diabetic peripheral neuropathy 250.60 ; Ulcer of heel and midfoot 707.14 and Decreased pedal pulses 785.9 [facility] [id number], [place] [address] February, [facility] [id number] [place] [address] February, [facility] [address] [place] [id number] [place] [address] Jan, [facility] [address] [place] [id number] [place] [address] Jan, [facility] [id number], [place] [address]- [address]168 Dec, [facility] [address] [address] Dec, [facility] [address], [place] [address] Nov, [facility] [address], [place] [address]14 Nov, [facility] [address] [address] 1445 Nov, [facility] [address], [place] [address]115 Nov, [facility] [address], [place] [address] 9860 Nov, [facility] [address], [place] [address] Nov, [facility] [place] [facility] [address] [id number] [place] [address] 4[address] Nov, [facility] [place] [facility] [address] [id number] [place] [address]- 0896 Nov, [facility] [place] [facility] [address] [id number] [place] [address]- 2597 Nov, [facility] [place] [facility] [address] [id number] [place] [address]- 4102 Oct, [facility] [place] [facility] [address] [id number] [place] [address]- 8126 Oct, [facility] [place] [facility] [address] [id number] [place] [address]- 6822 Oct, [facility] [place] [facility] [address] [id number] [place] [address]- 9404 Oct, [facility] [place] [facility] [address] [id number] [place] [address]- 9158 Oct, [facility] [place] [facility] [address] [id number] [place] [address]- 9558 Oct, [facility] [place] [facility] [address] [id number] [place] [address]- 1060 Oct, [facility] [place] [facility] [address] [id number] [place] [address]- 2030 Oct, [facility] [place] [facility] [address] [id number], [place] [address] Oct, [facility] [place] [facility] [address] [id number] [place] [address]- 0805 Oct, [facility] [place] [facility] [address] [id number] [place] [address]- 3960 Oct, [facility] [place] [facility] [address] [id number], [place] [address] 4542 Oct, [facility] [place] [facility] [address] [id number], [place] [address]- 5675 Oct, [facility] [address] [id number] [place] [address]- 1050 Sep, [facility] [place] [facility] [address] [id number] [place] [address]- 4816 Sep, [facility] [place] [facility] [address] [id number] [place] [address]- 8359 Sep, [facility] [place] [facility] [address] [id number] [place] [address]- 0029 Sep, [facility] [place] [facility] [address] [id number] [place] [address]- 9700 Sep, [facility] [place] [facility] [address] [id number] [place] [address]- 0647 Sep, [facility] [place] [facility] [address] [id number] [place] [address]- 2465 Sep, [facility] [place] [facility] [address] [id number] [place] [address]- 8026 Sep, [facility] [place] [facility] [address] [id number] [place] [address]- 6436 Sep, [facility] [place] [facility] [address] [id number] [place] [address]- 1697 Sep, [facility] [place] [facility] [address] [id number] [place] [address]- 1646 Sep, [facility] [place] [facility] [address] [id number] [place] [address]- 6278 Sep, [facility] [place] [facility] [address] [id number] [place] [address]- 4573 Sep, [facility] [place] [facility] [address] [id number] [place] [address]- 2135 Sep, [facility] [place] [facility] [address] [id number] [place] [address]- 9305 Sep, [facility] [place] [facility] [address] [id number] [place] [address]- 3463 Sep, [facility] [place] [facility] [address] [id number] [place] [address]- 6467 Aug, [facility] [place] [facility] [address] [id number] [place] [address]- 2008 Aug, [facility] [place] [facility] [address] [id number] [place] [address]- 5628 Aug, [facility] [place] [facility] [address] [id number] [place] [address]- 5014 Aug, [facility] [place] [facility] [address] [id number] [place] [address]- 3605 Aug, [facility] [place] [facility] [address] [id number] [place] [address]- 3541 Aug, [facility] [place] [facility] [address] [id number] [place] [address]- 7532 Aug, [facility] [place] [facility] [address] [id number] [place] [address]- 9533 Aug, [facility] [place] [facility] [address] [id number] [place] [address]- 3336 Jul, [facility] [place] [facility] [address] [id number] [place] [address]- 3267 Jul, [facility] [place] [facility] [address] [id number] [place] [address]- 8857 30 Jul, 2014 [facility] [place] [facility] [address] [id number] [place] [address]- 5028 15 Jul, 2014 [facility] [place] [facility] [address] [id number] [place] [address] 15 Jul, 2014 [facility] [place] [facility] [address] [id number] [place] [address]- 7627 Jun, [facility] [place] [facility] [address] [id number] [place] [address]- 5089 Jun, [facility] [place] [facility] [address] [id number] [place] [address]- 5526 Jun, [facility] [place] [facility] [address] [id number] [place] [address]- 6102 Jun, [facility] [place] [facility] [address] [id number] [place] [address]- 9554 Jun, [facility] [place] [facility] [address] [id number] [place] [address]- 6536 May, [facility] [place] [facility] [address] [id number] [place] [address]- 7975 May, [facility] [place] [facility] [address] [id number] [place] [address]- 1786 Apr, [facility] [place] [facility] [address] [id number] [place] [address]- 4544 Apr, [facility] [place] [facility] [address] [id number] [place] [address]- 3589 Apr, [facility] [place] [facility] [address] [id number] [place] [address]- 4718 Apr, [facility] [place] [facility] [address] [id number] [place] [address]- 3228 Apr, [facility] [place] [facility] [address] [id number] [place] [address]- 3125 Apr, [facility] [place] [facility] [address] [id number] [place] [address]- 2596 Mar, [facility] [place] [facility] [address] [id number] [place] [address]- 2226 Mar, [facility] [place] [facility] [address] [id number] [place] [address]- 5251 Mar, [facility] [place] [facility] [address] [id number] [place] [address]- 4171 Mar, [facility] [place] [facility] [address] [id number] [place] [address]- 7131 Mar, [facility] [place] [facility] [address] [id number] [place] [address]- 6120 Mar, [facility] [place] [facility] [address] [id number] [place] [address]- 0034 Mar, [facility] [place] [facility] [address] [id number] [place] [address]- 8326 Mar, [facility] [place] [facility] [address] [id number] [place] [address]- 3676 Mar, [facility] [place] [facility] [address] [id number] [place] [address]- 7578 Mar, [facility] [place] [facility] [address] [id number] [place] [address]- 8805 Mar, [facility] [place] [facility] [address] [id number] [place] [address]- 1730 Mar, [facility] [place] [facility] [address] [id number] [place] [address]- 3427 Mar, [facility] [place] [facility] [address] [id number] [place] [address]- 4840 Mar, [facility] [place] [facility] [address] [id number] [place] [address]- 1701 Mar, [facility] [place] [facility] [address] [id number] [place] [address]- 4005 Mar, [facility] [place] [facility] [address] [id number] [place] [address]- 8770 February, [facility] [place] [facility] [address] [id number] [place] [address]- 4538 February, [facility] [place] [facility] [address] [id number] [place] [address]- 1553 February, [facility] [place] [facility] [address] [id number] [place] [address]- 9989 February, [facility] [place] [facility] [address] [id number] [place] [address]- 9050 February, [facility] [place] [facility] [address] [id number] [place] [address]- 0938 February, [facility] [place] [facility] [address] [id number] [place] [address]- 9836 February, [facility] [place] [facility] [address] [id number] [place] [address]- 1694 February, [facility] [place] [facility] [address] [id number] [place] [address]- 7824 Jan, [facility] [place] [facility] [address] [id number] [place] [address]- 2990 Jan, [facility] [place] [facility] [address] [id number] [place] [address]- 9126 Dec, [facility] [place] [facility] [address] [id number] [place] [address]- 3894 Dec, [facility] [place] [facility] [address] [id number] [place] [address]- 2336 Dec, [facility] [place] [facility] [address] [id number] [place] [address]- 1734 Dec, [facility] [place] [facility] [address] [id number] [place] [address]- 8686 Dec, [facility] [place] [facility] [address] [id number] [place] [address]- 8507 Dec, [facility] [place] [facility] [address] [id number] [place] [address]- 1539 Dec, [facility] [place] [facility] [address] [id number] [place] [address]- 9980 Dec, [facility] [place] [facility] [address] [id number] [place] [address]- 0108 17 Dec, 2013 [facility] [place] [facility] [address] [id number] [place] [address]- 6016 17 Dec, 2013 [facility] [place] [facility] [address] [id number] [place] [address]- 1464 Dec, [facility] [place] [facility] [address] [id number] [place] [address]- 5411 14 Dec, 2013 [facility] [place] [facility] [address] [id number] [place] [address]- 4915 Dec, [facility] [place] [facility] [address] [id number] [place] [address]- 9630 Dec, [facility] [place] [facility] [address] [id number] [place] [address]- 2849 Nov, [facility] [place] [facility] [address] [id number] [place] [address]- 6688 Nov, [facility] [place] [facility] [address] [id number] [place] [address]- 2224 Oct, [facility] [place] [facility] [address] [id number] [place] [address]- 6812 Oct, [facility] [place] [facility] [address] [id number] [place] [address]- 0326 Oct, [facility] [place] [facility] [address] [id number] [place] [address]- 4485 Oct, [facility] [place] [facility] [address] [id number] [place] [address]- 7970 Oct, [facility] [place] [facility] [address] [id number] [place] [address]- 5621 Oct, [facility] [place] [facility] [address] [id number] [place] [address]- 0637 Oct, [facility] [place] [facility] [address] [id number] [place] [address]- 9031 Sep, [facility] [place] [facility] [address] [id number] [place] [address]- 4766 30 Sep, 2013 [facility] [place] [facility] [address] [id number] [place] [address]- 7712 30 Sep, 2013 [facility] [address] [id number] [place] [address]- 3826 29 Sep, 2013 [facility] [address] [id number] [place] [address]- 8846 Sep, [facility] [address] [id number] [place] [address]- 3666 Sep, [facility] [address] [id number] [place] [address]- 5540 Sep, [facility] [address] [id number] [place] [address]6 Sep, [facility] [address] [id number] [place] [address]- 3385 Sep, [facility] [address] [id number] [place] [address]- 6615 Sep, [facility] [address] [id number] [place] [address]- 2261 Sep, [facility] [address] [id number] [place] [address]- 4408 Sep, [facility] [address] [id number] [place] [address]- 7588 16 Sep, 2013 [facility] [address] [id number] [place] [address]- 254 16 Sep, 2013 [facility] [address] [id number] [place] [address]- 2546 Sep, [facility] [address] [id number] [place] [address]- 8976 Sep, [facility] [address] [id number] [place] [address]16 Sep, [facility] [address] [id number] [place] [address] Sep, [facility] [place] [facility] [address] [id number] [place] [address]- 2413 Sep, [facility] [place] [facility] [address] [id number] [place] [address]- 6798 Aug, [facility] [place] [facility] [address] [id number] [place] [address]- 9753 Aug, [facility] [place] [facility] [address] [id number] [place] [address]- 6305 Aug, [facility] [place] [facility] [address] [id number] [place] [address]- 6116 Aug, [facility] [place] [facility] [address] [id number] [place] [address]- 3634 Aug, [facility] [place] [facility] [address] [id number] [place] [address]- 2254 Aug, [facility] [place] [facility] [address] [id number] [place] [address]- 8714 Aug, [facility] [place] [facility] [address] [id number] [place] [address]- 4105 Aug, [facility] [place] [facility] [address] [id number] [place] [address]- 3806 Aug, [facility] [place] [facility] [address] [id number], [place] [address]- 0995 Aug, [facility] [place] [facility] [address] [id number], [place] [address]- 3696 Aug, [facility] [place] [facility] [address] [id number] [place] [address]- 6602 Aug, [facility] [place] [facility] [address] [id number], [place] [address]- 4157 Aug, [facility] [place] [facility] [address] [id number], [place] [address]- 5755 Aug, [facility] [place] [facility] [address] [id number] [place] [address]- 6286 Aug, 2012 [facility] [place] [facility] [address] [id number] [place] [address]- 8092 Aug, 2012 [facility] [place] [facility] [address] [id number] [place] [address]- 3838 Aug, [facility] [place] [facility] [address] [id number] [place] [address]- 8011 Jul, 2012 [facility] [place] [facility] [address] [id number] [place] [address]- 6218 Jul, 2012 [facility] [place] [facility] [address] [id number] [place] 3862 Jul, 2012 [facility] [place] [facility] [address] [id number] [place] [address]- 0281 Jul, 2012 [facility] [place] [facility] [address] [id number] [place] [address]- 5706 Jul, 2012 [facility] [place] [facility] [address] [id number] [place] [address]- 7211 Jul, [facility] [place] [facility] [address] [id number] [place] [address]- 9934 Jul, [facility] [place] [facility] [address] [id number] [place] [address]- 9232 27 Jun, 2012 [facility] [place] [facility] [address] [id number] [place] [address]- 7918 20 Sep, 2012 [facility] [place] [facility] [address] [id number], [place] [address]- 5171 17 Sep, 2012 [facility] [place] [facility] [address] [id number], [place] [address]- 9977 10 Sep, 2012 [facility] [place] [facility] [address] [id number], [place] [address]- 1618 06 Sep, 2012 [facility] [place] [facility] [address] [id number], [place] [address]- 1709 06 Sep, 2012 [facility] [place] [facility] [id number], [place] [address]- 6089 Jun, [facility] [address] [place] [address]- 3387 Jun, [facility] [address] [address]- 3415 May, [facility] [address] [address]- 3114 May, [facility] [address] [address]- 4341 May, [facility] [address], [place] [address]- 7296 May, [facility] [address] [address]- 3859 May, [facility] [address] [address]- 2825 May, [facility] [address] [address]- 9584 May, [facility] [address] [id number] [address]- 4129 May, IMMUNIZATIONS No Known Immunizations SOCIAL HISTORY Never Assessed REASON FOR VISIT Rx Change PLAN OF CARE VITAL SIGNS MEDICATIONS Medication Instructions Dosage Frequency Start Date End Date Duration Status ProAir HFA 108 (90 Base) MCG/ACT Inhalation every 6 hrs 2 puffs as needed 6h February, Active RESULTS No Results PROCEDURES No Known [...] History Left foot cellulitis, left 2nd toe amputation-[facility] 12/23 Hospitalization History Surgery Hospitalizations
[2018-08-22 09:05] LABS: BASOPHILS % (AUTO) 0 % (0-10); EOSINOPHILS % (AUTO) 0 % (0-10); HEMATOCRIT 34 % (35-52); HEMOGLOBIN 11.6 G/DL (11.5-16.0); LYMPHOCYTES # (AUTO) 1.9 X 10^3 (1.0-4.0); LYMPHOCYTES % (AUTO) 11 % (12-44); MEAN CORPUSCULAR HEMOGLOBIN 30 PG (25-34); MEAN CORPUSCULAR HGB CONC 34 G/DL (32-36); MEAN CORPUSCULAR VOLUME 88 FL (80-99); MEAN PLATELET VOLUME 10.7 FL (7.4-10.4); MONOCYTES # (AUTO) 1.1 X 10^3 (0.0-1.0); MONOCYTES % (AUTO) 6 % (0-12); NEUTROPHILS % (AUTO) 83 % (42-75); PLATELET COUNT 238 10^3/uL (130-400); RED BLOOD COUNT 3.86 10^6/uL (4.35-5.85); RED CELL DISTRIBUTION WIDTH 13.4 % (10.0-14.5)
--- OUTSIDE RECORDS SUMMARY | 2018-08-22 09:05 | XMS REPORT ---
Author Author LUDIVINA STEPHANIE [facility] Address [address] [place] [address] Care Team Providers Care Movie Operator Name Role Phone FARNAZ FLORENCEY Unavailable PROBLEMS Type Condition ICD9-CM Code KGS98-IP Code Onset Dates Condition Status SNOMED Code Problem Subclinical hypothyroidism E03.9 Active 73866654 Problem Hypertriglyceridemia E78.1 Active 258182017 Problem Type 2 diabetes mellitus with diabetic polyneuropathy E11.42 Active 158458339 Problem Type 2 diabetes mellitus with diabetic chronic 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 Active 420234424 Problem Other chronic pain G89.29 Active 62326289 Problem Type 2 diabetes mellitus with other skin complications E11.628 Active 82290638 Problem Pain in left foot M79.672 Active 44588667 Problem Irregular menstrual cycle N92.6 Active 73910930 Problem Pain in right foot M79.671 Active 88775377 Problem Tonsillolith J35.8 Active 8888060 Problem Chronic prescription opiate use Z79.891 Active 351645319 Problem Seasonal allergic rhinitis due to pollen J30.1 Active 46195091 Problem Asthma exacerbation, mild J45.901 Active 214635791 Problem Chronic kidney disease, stage III (moderate) N18.3 Active 655876633 Problem Chronic migraine G43.709 Active 71719443 Problem Moderate persistent asthma without complication J45.40 Active 963972155 Problem Intrinsic eczema L20.84 Active 55217888 Problem Severe episode of recurrent major depressive disorder, without psychotic features F33.2 Active 16730729 Problem Non-pressure chronic ulcer of right heel and midfoot limited to breakdown of skin L97.411 Active 073376256 Problem Ulcer of right heel L97.419 Active 936547905 Problem Obesity E66.9 Active 300855653 Problem Type 2 diabetes mellitus with foot ulcer E11.621 Active 56854140 Problem Essential hypertension I10 Active 95254607 Problem Anxiety disorder, unspecified F41.9 Active 384119641 Problem Type 2 diabetes mellitus with other specified complication E11.69 Active 201226361 Problem Status post amputation of toe of left foot Z89.422 Active 393075779 Problem DM neuro manif type II E11.49 Active 71916753 Problem History of amputation of hallux Z89.419 Active 375719756 ALLERGIES No Information ENCOUNTERS Encounter Location Date Diagnosis [facility] [id number] [place] [address] 22359- 2549 May, [facility] [address] 83288- 0402 May, [facility] [address] 68703- 6669 Apr, [facility] [address] 87160- 4687 Apr, Chronic migraine G43.709 [facility] [address] 34597- 8185 Apr, [facility] [address] 61570- 2246 Mar, Moderate persistent asthma without complication J45.40 [facility] [address] 63257- 8344 Mar, Moderate persistent asthma without complication J45.40 [facility] [id number] [place] [address] 88951- 1830 Mar, [facility] [id number] [place] [address] 86240- 0560 February, Chronic migraine G43.709 [facility] [id number] [place] [address] 98644- 7871 February, Chronic migraine G43.709 [facility] [id number] [place] [address] 30275- 3820 February, [facility] [id number] [place] [address] 91163- 2062 February, [facility] [id number] [place] [address] 14022- 5342 February, Type 2 diabetes mellitus with diabetic polyneuropathy E11.42 ; Moderate persistent asthma without complication J45.40 ; Type 2 diabetes mellitus with foot ulcer E11.621 ; Non-pressure chronic ulcer of right heel and midfoot limited to breakdown of skin L97.411 ; Chronic migraine G43.709 and BMI 60.0-69.9, adult Z68.44 [facility] [place] [address] 03961 -4401 Jan, Asthma exacerbation, mild J45.901 ; Seasonal allergic rhinitis due to pollen J30.1 and BMI 60.0-69.9, adult Z68.44 [place] [address] 58830- 8204 Jan, [place] [address] 20884- 8548 Jan, Other chronic pain G89.29 [place] [address] 92756- 7242 Dec, Type 2 diabetes mellitus with diabetic polyneuropathy E11.42 [place] [address] 30887- 1605 Dec, Type 2 diabetes mellitus with diabetic polyneuropathy E11.42 [place] [id number] [place] [address] 28626- 9399 15 Dec, 2017 [place] [address] 02523- 6811 14 Dec, 2017 [place] [address] 11438- 3283 Dec, Chronic kidney disease, stage III (moderate) N18.3 [facility] [place] [address] 34285 -0532 09 Dec, 2017 Nausea R11.0 and Diarrhea, unspecified type R19.7 [place] [address] [place] [address]- 8899 Dec, Chronic kidney disease, stage III (moderate) N18.3 and Type 2 diabetes mellitus with diabetic polyneuropathy E11.42 [facility] [address] 39367- 5990 Dec, [facility] [address] 71450- 5680 Nov, Ulcer of right heel L97.419 and Type 2 diabetes mellitus with diabetic polyneuropathy E11.42 [facility] [address] [id number] Nov, Dental examination Z01.20 [place] [address] 15880- 3805 Nov, Open wound of right foot, initial encounter S91.301A [facility] [address] 22637 -7969 Nov, Open wound of right foot, initial encounter S91.301A ; Non- intractable vomiting with nausea, unspecified vomiting type R11.2 and BMI 60.0- 69.9, adult Z68.44 [place] [address] 46130- 0303 Nov, [place] [address] 37389- 8437 Nov, Other chronic pain G89.29 [place] [address] 19447- 7912 Oct, Cellulitis of right lower limb L03.115 [place] [address] 07654- 7773 Oct, [place] [address] 91976- 4961 Oct, [place] [address] 72529- 4219 Oct, Cat scratch W55.03XA ; Cellulitis of right lower limb L03.115 ; Acute nasopharyngitis J00 ; BMI 60.0-69.9, adult Z68.44 and Cough R05 [address] 97972- 5647 Oct, Cat scratch W55.03XA ; Cutaneous abscess of right lower extremity L02.415 and Cellulitis of right lower limb L03.115 [place] [address] 52810- 6664 Oct, Type 2 diabetes mellitus with diabetic polyneuropathy E11.[address] 60227- 7813 Oct, Other chronic pain G89.[address] 65892- 5047 Aug, [address] 77004- 3926 Jul, Other chronic pain G89.[address] 79810- 0397 Jul, [address] 66777- 4003 Jul, Chronic kidney disease, stage III (moderate) N18.[address] 90110- 5439 Jul, Type 2 diabetes mellitus with diabetic polyneuropathy E11.42 ; Essential hypertension I10 ; Irregular menstrual cycle N92.6 ; Hypertriglyceridemia E78.1 ; Anxiety disorder, unspecified F41.9 ; Severe episode of recurrent major depressive disorder, without psychotic features F33.2 ; Tonsillolith J35.8 ; Intrinsic eczema L20.84 ; Subclinical hypothyroidism E03.9 ; Viral pharyngitis J02.9 and Encounter for immunization Z23 [address] 88079- 9479 13 Jun, 2017 Essential hypertension I10 [facility] [address] [place] [address] 34333- 6750 08 Jun, 2017 [facility] [id number] [place] [address] 94264- 5803 07 Jun, 2017 [facility] [id number] [place] [address] 05857- 6274 May, Moderate persistent asthma without complication J45.40 [facility] [id number] [place] [address] 35296- 4466 May, Pain in right foot M79.671 ; Pain in left foot M79.672 ; Other chronic pain G89.29 and Chronic prescription opiate use Z79.891 [facility] [id number] [place] [address] 48594- 3778 May, [facility] [id number] [place] [address] 19722- 4012 May, [facility] [id number] [place] [address] 27153- 2805 Apr, [facility] [id number] [place] [address] 12814- 4427 Apr, Chronic migraine G43.709 [facility] [id number] [place] [address] 53674- 6974 Apr, Essential hypertension I10 ; Hypertriglyceridemia E78.1 and Chronic migraine G43.709 [facility] [id number] [place] [address] 29738- 9370 Apr, [facility] [id number] [place] [address] 87423- 6341 Apr, Sore throat J02.9 [facility] [id number] [place] [address] 11084- 6816 Apr, [facility] [id number] [place] [address] 15886- 9156 Mar, Strep pharyngitis J02.0 and Non-intractable vomiting with nausea, unspecified vomiting type R11.2 [place] [id number] [place] [address] 59805- 9247 Mar, [place] [id number] [place] [address] 93769- 4901 Mar, [place] [id number] [place] [address] 76026- 1095 Mar, [place] [id number] [place] [address] 38700- 1498 Mar, Type 2 diabetes mellitus with diabetic polyneuropathy E11.42 ; Moderate persistent asthma without complication J45.40 ; Status post amputation of toe of left foot Z89.422 ; Acute seasonal allergic rhinitis, unspecified trigger J30.2 and Left shoulder pain, unspecified chronicity M25.512 [place] [id number] [place] [address] 94547- 1735 Mar, [place] [id number] [place] [address] 86277- 5941 February, Pre-op evaluation Z01.818 ; Type 2 diabetes mellitus with diabetic polyneuropathy E11.42 and Type 2 diabetes mellitus with foot ulcer E11.621 [place] [id number] [place] [address] 90093- 6080 February, [place] [id number] [place] [address] 74402- 3449 February, [place] [id number] [place] [address] 48993- 1526 February, Toe infection L08.9 and Type 2 diabetes mellitus with other specified complication E11.69 [place] [id number] [place] [address] 18772- 8147 February, [place] [id number] [place] [address] 29527- 3647 Jan, Type 2 diabetes mellitus with diabetic polyneuropathy E11.42 [facility] [id number] [place] [address] 49094- 7909 Jan, [facility] [id number] [place] [address] 46794- 7773 Jan, Right upper quadrant pain R10.11 and Intractable vomiting with nausea, unspecified vomiting type R11.2 [facility] [id number] [place] [address] 98780- 9732 Jan, Hypertriglyceridemia E78.1 and Essential hypertension I10 [facility] [id number] [place] [address] 51263- 1573 Jan, Essential hypertension I10 ; Type 2 diabetes mellitus with diabetic polyneuropathy E11.42 and Hypertriglyceridemia E78.1 [place] [id number] [place] [address] 56537- 6093 16 Dec, 2016 Type 2 diabetes mellitus with diabetic polyneuropathy E11.42 [facility] [id number] [place] [address] 19838- 2580 Dec, Hypertriglyceridemia E78.1 ; Essential hypertension I10 ; Type 2 diabetes mellitus with diabetic polyneuropathy E11.42 ; Anxiety disorder , unspecified F41.9 and Moderate persistent asthma without complication J45.40 [facility] [id number] [place] [address] 61795- 8741 Dec, Type 2 diabetes mellitus with diabetic polyneuropathy E11.42 [facility] [id number] [place] [address] [id number] Dec, [facility] [id number] [place] [address] 54280- 0670 Nov, [facility] [id number] [place] [address] 42383- 6080 Nov, [facility] [id number] [place] [address] 92766- 3687 Nov, [facility] [address] 28709- 5552 Nov, Toe infection L08.9 [facility] [address] [address]- 7118 Nov, [facility] [address] [place] [address] 06352- 6935 Oct, History of amputation of hallux Z89.419 [facility] [id number] [place] [address] 33767- 5099 Oct, Type 2 diabetes mellitus with diabetic polyneuropathy E11.42 [facility] [address] [address]- 0222 17 Oct, 2016 Type 2 diabetes mellitus with diabetic polyneuropathy E11.42 [place] [address] [address]- 4727 Oct, Acute osteomyelitis of left foot M86.172 ; Pre-op exam Z01.818 and Type 2 diabetes mellitus with diabetic polyneuropathy E11.42 [facility] [address] [address]- 0119 Oct, Foot ulcer, left, with unspecified severity L97.529 ; Acute osteomyelitis of left foot M86.172 and Type 2 diabetes mellitus with diabetic polyneuropathy E11.42 [facility] [address] [address]- 2554 Sep, [facility] [address] [address]- 1750 Sep, Intractable vomiting with nausea, unspecified vomiting type R11.2 and Right upper quadrant pain R10.11 [facility] [address] [address]- 2859 Aug, [place] [address] [place] [address] 51318- 9519 Jul, [facility] [address] [address]- 1109 Jul, Preop examination Z01.818 [facility] [address] [address]- 1438 Jul, [facility] [address] [place] [address] 74250- 3386 Jul, [facility] [address] [address]- 2060 Jul, Chronic osteomyelitis of left foot M86.672 and Ulcer of left foot, with unspecified severity L97.529 [facility] [address] [address]- 0047 Jul, Non-pressure chronic ulcer of other part of left foot with unspecified severity L97.529 [facility] [address] [address]- 9156 Jul, [facility] [id number] [place] [address] 72140- 7741 Jul, [facility] [address] [address]- 9988 28 Jun, 2016 [facility] [id number] [place] [address] 65381- 3829 27 Jun, 2016 [facility] [address] [address]- 2541 Jun, [facility] [address] [place] [address] 07917- 6984 21 Jun, 2016 Right upper quadrant pain R10.11 [facility] [address] [address] 2542 20 Jun, 2016 [facility] [id number] [place] [address] 69453- 2545 19 Jun, 2016 Intractable vomiting with nausea, unspecified vomiting type R11.2 [facility] [address] [address]- 7033 13 Jun, 2016 Right upper quadrant pain R10.11 ; Migraine with aura and with status migrainosus, not intractable G43.101 and Intractable vomiting with nausea, unspecified vomiting type R11.2 [place] [address] [place] [address] 49677- 3633 Jun, [place] [address] [place] [address] 08737- 3159 Jun, Gastroenteritis K52.9 [place] [id number] [place] [address] 08388- 1445 May, [place] [id number] [place] [address] 90223- 5259 May, Hypertriglyceridemia E78.1 ; Essential hypertension I10 ; Type 2 diabetes mellitus with diabetic polyneuropathy E11.42 ; Moderate persistent asthma without complication J45.40 ; Type 2 diabetes mellitus with foot ulcer E11.621 ; Other chronic pain G89.29 ; Pain in right leg M79.604 ; Pain of left leg M79.605 ; Rash and nonspecific skin eruption R21 and Anxiety disorder, unspecified F41.9 [place] [id number] [place] [address] 71886- 1629 May, Essential hypertension I10 ; Hypertriglyceridemia E78.1 ; Upper respiratory infection J06.9 ; Subclinical hypothyroidism E03.9 and Type 2 diabetes mellitus with diabetic polyneuropathy E11.42 [place] [address] [place] [address] 37257- 5163 Apr, Hypertriglyceridemia E78.1 ; Subclinical hypothyroidism E03.9 ; Essential hypertension I10 and Type 2 diabetes mellitus with diabetic polyneuropathy E11.42 [place] [address] [address]- 0406 Mar, [place] [id number] [place] [address] 82550- 6399 Mar, Ulcer of right heel L97.419 [address] [place] [address] 84874- 2244 Mar, [place] [address] [address]- 9486 Mar, [facility] [id number] [place] [address] 45880- 3116 February, [facility] [id number] [place] [address] 66874- 2510 February, Ulcer of right heel L97.419 and DM neuro manif type II E11.49 [place] [id number] [place] [address] 80437- 2569 Jan, [place] [id number] [place] [address] 84540- 8892 Jan, Ulcer of right heel L97.419 ; Type 2 diabetes mellitus with foot ulcer E11.621 and Non-pressure chronic ulcer of other part of left foot with unspecified severity L97.529 [place] [id number] [place] [address] 54749- 7690 Jan, [facility] [id number] [place] [address] 59608- 3681 Jan, [place] [id number] [place] [address] 68242- 3543 Jan, Infection of toenail L03.039 [place] [address] [place] [address] 85519- 7685 Jan, Blister of toe of left foot, initial encounter S90.425A and Type 2 diabetes mellitus with diabetic polyneuropathy E11.42 [place] [address] [address]- 2654 Jan, [facility] [id number] [place] [address] 70550 -7832 Jan, Sore throat J02.9 and Strep pharyngitis J02.0 [place] [address] [place] [address] 02273- 7740 Dec, Type 2 diabetes mellitus with diabetic polyneuropathy E11.42 ; Upper respiratory infection J06.9 ; Cough R05 and Asthma exacerbation J45.901 [facility] [id number] [place] [address] 30828- 2268 Oct, [facility] [id number] [place] [address] 10763- 4434 Oct, [facility] [id number] [place] [address] 46666- 2583 Oct, [facility] [id number] [place] [address] 31908- 2656 Oct, [facility] [id number] [place] [address] 80768- 5270 Sep, [facility] [id number] [place] [address] 19110- 2676 Aug, Anxiety disorder, unspecified F41.9 and Obesity E66.9 [place] [id number] [place] [address] 35640- 3776 Aug, Moderate persistent asthma without complication J45.40 [place] [id number] [place] [address] 08453- 1690 Aug, Anxiety disorder, unspecified F41.9 [place] [id number] [place] [address] 56987- 1522 Aug, Encounter for immunization Z23 ; Chronic migraine G43.709 ; Hypertriglyceridemia E78.1 ; Type 2 diabetes mellitus with diabetic polyneuropathy E11.42 ; Moderate persistent asthma without complication J45.40 and Morbid obesity E66.01 [facility] [id number] [place] [address] 16030- 8023 Jul, [facility] [id number] [place] [address] 54294- 5259 Jul, [facility] [id number] [place] [address] 39034- 9621 Jul, [facility] [address] [place] [address]- 8300 Jul, Subclinical hypothyroidism E03.9 [facility] [address] 20430- 7452 Jun, Essential hypertension, benign 401.1 ; Diabetic ulcer of lower extremity 250.80 ; Asthma 493.90 ; Diabetes mellitus type II, uncontrolled 250.02 and Hyperlipidemia associated with type 2 diabetes mellitus 250.80 [facility] [address] 61394- 1367 Jun, [facility] [address] 84961- 6517 Jun, [facility] [address] 38050- 3871 May, [place] [address] 94129- 7262 Apr, [place] [address] 42611- 2559 Apr, Viral upper respiratory infection 465.9 and Asthma 493.90 [place] [address] 55142- 9219 Mar, Abnormal ankle brachial index 796.4 [place] [id number] [place] [address] 17834- 5665 February, [facility] [id number] [place] [address] 65277- 7536 February, Essential hypertension, benign 401.1 [place] [id number] [place] [address] 05347- 8804 February, Diabetic peripheral neuropathy 250.60 ; Ulcer of heel and midfoot 707.14 and Decreased pedal pulses 785.9 [facility] [id number] [place] [address] 08605- 6581 February, [facility] [address] 40507- 3353 February, [facility] [place] [facility] [address] [id number] [place] [address]- 2983 Jan, [facility] [place] [facility] [address] [id number] [place] [address]- 7362 Jan, [facility] [place] [facility] [address] [id number] [place] [address]- 6393 Dec, [facility] [place] [facility] [address] [id number] [place] [address]- 0002 Dec, [facility] [place] [facility] [address] [id number] [place] [address]- 0944 Nov, [facility] [place] [facility] [address] [id number] [place] [address]- 0247 Nov, [facility] [place] [facility] [address] [id number] [place] [address]- 8327 Nov, [facility] [place] [facility] [address] [id number] [place] [address]- 5349 Nov, [facility] [place] [facility] [address] [id number] [place] [address]- 4870 Nov, [facility] [place] [facility] [address] [id number] [place] [address]- 2845 Nov, [facility] [place] [facility] [address] [id number] [place] [address]- 8856 Nov, [facility] [place] [facility] [address] [id number] [place] [address]- 2758 Nov, [facility] [place] [facility] [address] [id number] [place] [address]- 4321 Nov, [facility] [place] [facility] [address] [id number] [place] 6638 Oct, [facility] [place] [facility] [address] [id number] [place] [address]- 3691 Oct, [facility] [place] [facility] [address] [id number] [place] [address]- 6368 Oct, [facility] [address] [id number] [place] [address]- 7871 Oct, [facility] [address] [id number] [place] [address]- 9096 Oct, [facility] [address] [id number] [place] [address]- 1906 Oct, [facility] [address] [id number] [place] [address]- 6995 Oct, [facility] [address] [id number] [place] [address] Oct, [facility] [address] [id number] [place] [address] Oct, [facility] [address] [id number] [place] [address] Oct, [facility] [address] [id number] [place] [address] Oct, [facility] [address] [id number] [place] [address] Oct, [facility] [address] [id number] [place] [address] 134[address] Oct, [facility] [address] [id number] [place] [address] Sep, [facility] [address] [id number] [place] [address] Sep, [facility] [place] [facility] [address] [id number] [place] [address] 76[address] Sep, [facility] [address] [id number] [place] [address] Sep, [facility] [address] [id number] [place] [address] 58[address] Sep, [facility] [place] [facility] [address] [id number] [place] [address] 7410 Sep, [facility] [place] [facility] [address] [id number] [place] [address] 2425 Sep, [facility] [place] [facility] [address] [id number] [place] [address] Sep, [facility] [place] [facility] [address] [id number] [place] [address] 7367 Sep, [facility] [place] [facility] [address] [id number] [place] [address] 5279 Sep, [facility] [place] [facility] [address] [id number] [place] [address] 7369 Sep, [facility] [place] [facility] [address] [id number] [place] [address] 8[address] Sep, [facility] [place] [facility] [address] [id number] [place] [address]- 9869 Sep, [facility] [place] [facility] [address] [id number] [place] [address]- 7333 Sep, [facility] [place] [facility] [address] [id number] [place] [address]- 7161 Sep, [facility] [place] [facility] [address] [id number] [place] [address]- 9035 Sep, [facility] [place] [facility] [address] [id number] [place] [address] 9473 Aug, [facility] [place] [facility] [address] [id number] [place] [address] 4033 Aug, [facility] [place] [facility] [address] [id number] [place] [address]- 5099 Aug, [facility] [place] [facility] [address] [id number] [place] [address] 8041 Aug, [facility] [place] [facility] [address] [id number] [place] [address]- 7800 Aug, [facility] [place] [facility] [address] [id number] [place] [address]- 9233 Aug, [facility] [place] [facility] [address] [id number] [place] [address]- 0036 Aug, [facility] [place] [facility] [address] [id number] [place] [address]- 4874 Aug, [facility] [place] [facility] [address] [id number] [place] [address]- 1335 Jul, [facility] [place] [facility] [address] [id number] [place] [address] 6477 Jul, [facility] [place] [facility] [address] [id number] [place] [address] 1802 Jul, [facility] [place] [facility] [address] [id number] [place] [address]- 4782 Jul, [facility] [place] [facility] [address] [id number] [place] [address]- 7597 Jul, [facility] [place] [facility] [address] [id number] [place] [address]- 8298 Jun, [facility] [place] [facility] [address] [id number] [place] [address] 1386 Jun, [facility] [place] [facility] [address] [id number] [place] [address] 1986 Jun, [facility] [place] [facility] [address] [id number] [address] Jun, [facility] [place] [facility] [address] [id number] [place] [address]- 1172 Jun, [facility] [place] [facility] [address] [id number] [place] [address]- 4817 May, [facility] [place] [facility] [address] [id number] [place] [address]- 0605 May, [facility] [place] [facility] [address] [id number] [place] [address]- 2474 Apr, [facility] [place] [facility] [address] [id number] [place] [address]- 0177 Apr, [facility] [place] [facility] [address] [id number] [place] [address] 5438 Apr, [facility] [place] [facility] [address] [id number] [place] [address]- 3428 Apr, [facility] [place] [facility] [address] [id number] [place] [address]- 7865 Apr, [facility] [place] [facility] [address] [id number] [place] [address]- 1348 Apr, [facility] [place] [facility] [address] [id number] [place] [address]- 5963 Mar, [facility] [place] [facility] [address] [id number] [place] [address]- 3931 Mar, [facility] [place] [facility] [address] [id number] [place] [address]- 9334 Mar, [facility] [place] [facility] [address] [id number] [place] [address]- 6032 Mar, [facility] [place] [facility] [address] [id number] [place] [address]- 8048 Mar, [facility] [place] [facility] [address] [id number] [place] [address] 1921 Mar, [facility] [place] [facility] [address] [id number] [place] [address]- 5794 Mar, [facility] [place] [facility] [address] [id number] [place] [address]- 6646 Mar, [facility] [place] [facility] [address] [id number] [place] [address]- 2547 Mar, [facility] [place] [facility] [address] [id number] [place] [address]- 4479 Mar, [facility] [place] [facility] [address] [id number] [place] [address]- 0427 Mar, [facility] [place] [facility] [address] [id number] [place] [address]- 5017 Mar, [facility] [place] [facility] [address] [id number] [place] [address]- 2011 Mar, [facility] [place] [facility] [address] [id number] [place] [address]- 2989 Mar, [facility] [place] [facility] [address] [id number] [place] [address]- 4477 Mar, [facility] [place] [facility] [address] [id number] [place] [address] 2517 Mar, [facility] [place] [facility] [address] [id number] [place] [address]- 4862 February, [facility] [place] [facility] [address] [id number] [place] [address] 4819 February, [facility] [place] [facility] [address] [id number] [place] [address]- 2669 February, [facility] [place] [facility] [address] [id number] [place] [address]- 4858 February, [facility] [place] [facility] [address] [id number] [place] [address]- 0080 February, [facility] [place] [facility] [address] [id number] [place] [address]- 2951 February, [facility] [place] [facility] [address] [id number] [place] [address]- 6672 February, [facility] [place] [facility] [address] [id number] [place] [address]- 3608 February, [facility] [place] [facility] [address] [id number] [place] [address]- 6298 Jan, [facility] [place] [facility] [address] [id number] [place] [address]- 6789 24 Jan, 2014 [facility] [place] [facility] [address] [id number] [place] [address]- 8594 Dec, [facility] [place] [facility] [address] [id number] [place] [address]- 4216 Dec, [facility] [place] [facility] [address] [id number] [place] [address]- 6853 Dec, [facility] [place] [facility] [address] [id number] [place] [address]- 1345 Dec, [facility] [place] [facility] [address] [id number] [place] [address]- 3297 Dec, [facility] [place] [facility] [address] [id number] [place] [address]- 4856 Dec, [facility] [place] [facility] [address] [id number] [place] [address]- 7124 Dec, [facility] [place] [facility] [address] [id number] [place] [address]- 7864 Dec, [facility] [place] [facility] [address] [id number] [place] [address]- 8890 17 Dec, 2013 [facility] [place] [facility] [address] [id number] [place] [address]- 8727 17 Dec, 2013 [facility] [place] [facility] [address] [id number] [place] [address]- 5853 14 Dec, 2013 [facility] [place] [facility] [address] [id number] [place] [address]- 7832 14 Dec, 2013 [facility] [place] [facility] [address] [id number] [place] [address]- 2880 Dec, [facility] [place] [facility] [address] [id number] [place] [address]- 3781 Dec, [facility] [place] [facility] [address] [id number] [place] [address]- 7366 Nov, [facility] [place] [facility] [address] [id number] [place] [address]- 1773 Nov, [facility] [place] [facility] [address] [id number] [place] [address]- 3758 Oct, [facility] [place] [facility] [address] [id number] [place] [address]- 8725 Oct, [facility] [place] [facility] [address] [id number] [place] [address]- 2709 Oct, [facility] [place] [facility] [address] [id number] [place] [address]- 9040 Oct, [facility] [place] [facility] [address] [id number] [place] [address]- 4211 Oct, [facility] [place] [facility] [address] [id number] [place] [address]- 0964 Oct, [facility] [place] [facility] [address] [id number] [place] [address]- 3068 Oct, [facility] [place] [facility] [address] [id number] [place] [address]- 2297 Sep, [facility] [place] [facility] [address] [id number] [place] [address]- 2974 Sep, [facility] [place] [facility] [address] [id number] [place] [address]- 3484 Sep, [facility] [place] [facility] [address] [id number] [address]- 3862 Sep, [facility] [place] [facility] [address] [id number] [place] [address]- 1608 Sep, [facility] [place] [facility] [address] [id number] [place] [address]- 5335 Sep, [facility] [place] [facility] [address] [id number] [place] [address]- 0783 Sep, [facility] [place] [facility] [address] [id number] [place] [address]- 9247 Sep, [facility] [address] [id number] [place] [address]- 2182 Sep, [facility] [place] [facility] [address] [id number] [place] [address]- 5421 Sep, [facility] [place] [facility] [address] [id number] [place] [address]- 4441 Sep, [facility] [place] [facility] [address] [id number] [place] [address]- 7082 Sep, [facility] [address] [id number] [place] [address]- 3100 Sep, [facility] [place] [facility] [address] [id number] [place] [address]- 1989 Sep, [facility] [address] [id number] [place] [address]- 8385 Sep, [facility] [place] [facility] [address] [id number] [place] [address]- 6435 Sep, [facility] [place] [facility] [address] [id number] [place] [address]- 3961 Sep, [facility] [place] [facility] [address] [facility] [id number] [place] [address]- 0026 Sep, [facility] [place] [facility] [address] [id number] [place] [address]- 9512 Sep, [facility] [place] [facility] [address] [id number] [place] [address]- 1128 Aug, [facility] [place] [facility] [address] [id number] [place] [address]- 8404 Aug, [facility] [place] [facility] [address] [id number] [place] [address]- 7859 Aug, [facility] [place] [facility] [address] [facility] [id number] [place] [address]- 6889 Aug, [facility] [place] [facility] [address] [id number] [place] [address]- 0735 Aug, [facility] [place] [facility] [address] [id number] [place] [address]- 5930 Aug, [facility] [place] [facility] [address] [id number] [place] [address]- 2908 Aug, [facility] [place] [facility] [address] [id number] [place] [address]- 2458 Aug, [facility] [place] [facility] [address] [id number] [place] [address]- 0820 Aug, [facility] [place] [facility] [address] [id number] [place] [address]- 8318 Aug, [facility] [place] [facility] [address] [id number] [place] [address]- 1357 Aug, [facility] [place] [facility] [address] [id number] [place] [address]- 4154 Aug, [facility] [place] [facility] [address] [id number] [place] [address]- 3064 Aug, [facility] [place] [facility] [address] [id number] [place] [address]- 4228 Aug, [facility] [place] [facility] [address] [facility] [id number] [place] [address]- 3680 Aug, [facility] [place] [facility] [address] [id number] [place] [address]- 5971 Aug, [facility] [place] [facility] [address] [id number] [place] [address]- 3678 Aug, [facility] [place] [facility] [address] [id number] [place] [address]- 3627 Jul, [facility] [place] [facility] [address] [id number] [place] [address]- 4634 Jul, [facility] [place] [facility] [address] [id number] [place] [address]- 5496 30 Jul, 2013 [facility] [place] [facility] [address] [id number] [place] [address]- 1617 30 Jul, 2013 [facility] [place] [facility] [address] [id number] [place] [address]- 0075 18 Jul, 2013 [facility] [place] [facility] [address] [id number] [place] [address]- 6672 18 Jul, 2013 [facility] [place] [facility] [address] [id number] [place] [address]- 4221 Jul, [facility] [place] [facility] [address] [id number] [place] [address]- 8243 27 Jun, 2012 [facility] [place] [facility] [address] [id number] [place] [address]- 5521 20 Jun, 2012 [facility] [place] [facility] [address] [id number] [place] [address]- 8816 17 Jun, 2012 [facility] [place] [facility] [address] [id number] [place] [address]- 8413 10 Jun, 2012 [facility] [place] [facility] [address] [id number] [place] [address]- 1025 06 Jun, 2012 [facility] [place] [facility] [address] [id number] [place] [address]- 9402 06 Jun, 2012 [facility] [place] [facility] [address] [id number] [place] [address]- 3512 05 Sep, 2012 [facility] [place] [facility] [address] [id number] [place] [address]- 5979 03 Jun, 2012 [facility] [place] [facility] [address] [id number] [place] [address]- 0935 27 May, 2013 [facility] [place] [facility] [address] [id number] [place] [address]- 6733 22 May, 2013 [facility] [place] [facility] [address] [id number] [place] [address]- 6346 15 May, 2013 [facility] [place] [facility] [address] [facility] [id number] [place] [address]- 2268 May, [facility] [address] [facility] [id number] [place] [address]- 2424 May, [facility] [address] [facility] [id number] [place] [address]- 8906 May, [facility] [address] [facility] [id number] [place] [address]- 8723 May, [facility] [address] [facility] [id number] [place] [address]- 6871 May, IMMUNIZATIONS No Known Immunizations SOCIAL HISTORY [...] History Left foot cellulitis, left 2nd toe amputation-[facility] 12/23 Hospitalization History Surgery Hospitalizations
--- OUTSIDE RECORDS SUMMARY | 2018-08-22 09:05 | XMS REPORT ---
Author Author JUAN PABLO BLOOM Organization [facility] Address [address] [place] [address] Care Team Providers Care Accounts Payable Processor Name Role Phone JUAN PABLO BLOOM Unavailable PROBLEMS Type Condition ICD9-CM Code NBM40-LV Code Onset Dates Condition Status SNOMED Code Problem Subclinical hypothyroidism E03.9 Active 17052777 Problem Hypertriglyceridemia E78.1 Active 613231451 Problem Type 2 diabetes mellitus with diabetic polyneuropathy E11.42 Active 051064000 Problem Type 2 diabetes mellitus with diabetic chronic 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 Active 133845521 Problem Other chronic pain G89.29 Active 19739432 Problem Type 2 diabetes mellitus with other skin complications E11.628 Active 04227354 Problem Pain in left foot M79.672 Active 80395463 Problem Irregular menstrual cycle N92.6 Active 53436427 Problem Pain in right foot M79.671 Active 68660578 Problem Tonsillolith J35.8 Active 7289442 Problem Chronic prescription opiate use Z79.891 Active 047279740 Problem Seasonal allergic rhinitis due to pollen J30.1 Active 17244272 Problem Asthma exacerbation, mild J45.901 Active 968783133 Problem Chronic kidney disease, stage III (moderate) N18.3 Active 372324997 Problem Chronic migraine G43.709 Active 27380029 Problem Moderate persistent asthma without complication J45.40 Active 925058771 Problem Intrinsic eczema L20.84 Active 80273498 Problem Severe episode of recurrent major depressive disorder, without psychotic features F33.2 Active 47419563 Problem Non-pressure chronic ulcer of right heel and midfoot limited to breakdown of skin L97.411 Active 628249862 Problem Ulcer of right heel L97.419 Active 815846699 Problem Obesity E66.9 Active 762568492 Problem Type 2 diabetes mellitus with foot ulcer E11.621 Active 40950804 Problem Essential hypertension I10 Active 26963491 Problem Anxiety disorder, unspecified F41.9 Active 142876421 Problem Type 2 diabetes mellitus with other specified complication E11.69 Active 313386663 Problem Status post amputation of toe of left foot Z89.422 Active 309998832 Problem DM neuro manif type II E11.49 Active 40265941 Problem History of amputation of hallux Z89.419 Active 886683472 ALLERGIES Substance Reaction Event Type Date Status Penicillin V Potassium Unknown Drug Allergy Jan, Active ENCOUNTERS Encounter Location Date Diagnosis [facility] [id number] [place] [address] 37952- 6846 May, [facility] [id number] [place] [address] 38410- 6826 May, [facility] [address] 21133- 1920 Apr, [facility] [address] 41336- 7311 Apr, Chronic migraine G43.709 [facility] [address] 57520- 6830 Apr, [facility] [address] 98580- 0046 Mar, Moderate persistent asthma without complication J45.40 [facility] [id number] [place] [address] 35757- 8942 Mar, Moderate persistent asthma without complication J45.40 [facility] [id number] [place] [address] 62056- 5642 Mar, [facility] [id number] [place] [address] 10814- 2379 February, Chronic migraine G43.709 [facility] [id number] [place] [address] 86448- 5977 February, Chronic migraine G43.709 [facility] [id number] [place] [address] 24892- 0565 February, [facility] [id number] [place] [address] 67642- 9222 February, [facility] [id number] [place] [address] 26195- 0621 February, Type 2 diabetes mellitus with diabetic polyneuropathy E11.42 ; Moderate persistent asthma without complication J45.40 ; Type 2 diabetes mellitus with foot ulcer E11.621 ; Non-pressure chronic ulcer of right heel and midfoot limited to breakdown of skin L97.411 ; Chronic migraine G43.709 and BMI 60.0-69.9, adult Z68.44 [facility] [address] 58737 -[address] Jan, Asthma exacerbation, mild J45.901 ; Seasonal allergic rhinitis due to pollen J30.1 and BMI 60.0-69.9, adult Z68.44 [facility] [address] 18108- 4964 Jan, [facility] [address] 48176- 5578 Jan, Other chronic pain G89.29 [facility] [address] 30143- 9046 Dec, Type 2 diabetes mellitus with diabetic polyneuropathy E11.42 [facility] [id number] [place] [address] 57163- 2266 Dec, Type 2 diabetes mellitus with diabetic polyneuropathy E11.42 [facility] [id number] [place] [address] 57446- 5172 15 Dec, 2017 [facility] [id number] [place] [address] 84577- 7634 Dec, [facility] [address] 40257- 1603 Dec, Chronic kidney disease, stage III (moderate) N18.3 [facility] [id number] [place] [address] 30830 -6613 Dec, Nausea R11.0 and Diarrhea, unspecified type R19.7 [facility] [id number] [place] [address] 49375- 2352 Dec, Chronic kidney disease, stage III (moderate) N18.3 and Type 2 diabetes mellitus with diabetic polyneuropathy E11.42 [facility] [id number] [place] [address] 89491- 1899 Dec, [facility] [address] 65013- 2393 Nov, Ulcer of right heel L97.419 and Type 2 diabetes mellitus with diabetic polyneuropathy E11.42 [facility] [address] [id number] Nov, Dental examination Z01.20 [facility] [id number] [place] [address] 17019- 2363 Nov, Open wound of right foot, initial encounter S91.301A [facility] [id number] [place] [address] 39553 -6184 Nov, Open wound of right foot, initial encounter S91.301A ; Non- intractable vomiting with nausea, unspecified vomiting type R11.2 and BMI 60.0- 69.9, adult Z68.44 [facility] [id number] [place] [address] 78893- 8163 Nov, [facility] [id number] [place] [address] 46955- 3928 Nov, Other chronic pain G89.29 [facility] [address] 86333- 5179 Oct, Cellulitis of right lower limb L03.115 [facility] [address] 80503- 0576 Oct, [facility] [id number] [place] [address] 12568- 1920 Oct, [facility] [address] [place] [address] 5020 Oct, Cat scratch W55.03XA ; Cellulitis of right lower limb L03.115 ; Acute nasopharyngitis J00 ; BMI 60.0-69.9, adult Z68.44 and Cough R05 [facility] [address] 64440- 3563 Oct, Cat scratch W55.03XA ; Cutaneous abscess of right lower extremity L02.415 and Cellulitis of right lower limb L03.115 [facility] [address] 61154- 6900 Oct, Type 2 diabetes mellitus with diabetic polyneuropathy E11.42 [facility] [address] 27450- 2151 Oct, Other chronic pain G89.29 [facility] [address] 46615- 3200 Aug, [facility] [address] 86708- 4793 Jul, Other chronic pain G89.29 [facility] [address] 17431- 1498 Jul, [facility] [address] 16081- 5451 Jul, Chronic kidney disease, stage III (moderate) N18.3 [facility] [address] 25595- 4298 Jul, Type 2 diabetes mellitus with diabetic polyneuropathy E11.42 ; Essential hypertension I10 ; Irregular menstrual cycle N92.6 ; Hypertriglyceridemia E78.1 ; Anxiety disorder, unspecified F41.9 ; Severe episode of recurrent major depressive disorder, without psychotic features F33.2 ; Tonsillolith J35.8 ; Intrinsic eczema L20.84 ; Subclinical hypothyroidism E03.9 ; Viral pharyngitis J02.9 and Encounter for immunization Z23 [facility] [address] [place] [address]- 1466 13 Jun, 2017 Essential hypertension I10 [facility] [id number] [place] [address] 69087- 3830 08 Jun, 2017 [facility] [id number] [place] [address] 49005- 3023 07 Jun, 2017 [facility] [id number] [place] [address] 60728- 5093 May, Moderate persistent asthma without complication J45.40 [facility] [id number] [place] [address] 53989- 7990 17 May, 2017 Pain in right foot M79.671 ; Pain in left foot M79.672 ; Other chronic pain G89.29 and Chronic prescription opiate use Z79.891 [facility] [id number] [place] [address] 03924- 6039 May, [facility] [id number] [place] [address] 96001- 9121 May, [facility] [id number] [place] [address] 27972- 0824 Apr, [facility] [id number] [place] [address] 04136- 9691 Apr, Chronic migraine G43.709 [facility] [id number] [place] [address] 90303- 8571 Apr, Essential hypertension I10 ; Hypertriglyceridemia E78.1 and Chronic migraine G43.709 [facility] [id number] [place] [address] 08230- 5705 Apr, [facility] [id number] [place] [address] 99136- 5620 Apr, Sore throat J02.9 [facility] [id number] [place] [address] 10653- 5443 Apr, [facility] [id number] [place] [address] 47451- 4022 Mar, Strep pharyngitis J02.0 and Non-intractable vomiting with nausea, unspecified vomiting type R11.2 [facility] [id number] [place] [address] 29900- 2666 Mar, [facility] [id number] [place] [address] 82486- 4852 Mar, [facility] [id number] [place] [address] 89246- 9651 Mar, [facility] [id number] [place] [address] 92293- 1651 Mar, Type 2 diabetes mellitus with diabetic polyneuropathy E11.42 ; Moderate persistent asthma without complication J45.40 ; Status post amputation of toe of left foot Z89.422 ; Acute seasonal allergic rhinitis, unspecified trigger J30.2 and Left shoulder pain, unspecified chronicity M25.512 [facility] [address] [place] [address] 69646- 1141 Mar, [facility] [id number] [place] [address] 33704- 3404 February, Pre-op evaluation Z01.818 ; Type 2 diabetes mellitus with diabetic polyneuropathy E11.42 and Type 2 diabetes mellitus with foot ulcer E11.621 [facility] [address] [place] [address] 93866- 8985 February, [facility] [id number] [place] [address] 61201- 9610 February, [facility] [id number] [place] [address] 60939- 9360 February, Toe infection L08.9 and Type 2 diabetes mellitus with other specified complication E11.69 [facility] [id number] [place] [address] 89438- 2296 February, [facility] [id number] [place] [address] 99929- 0710 Jan, Type 2 diabetes mellitus with diabetic polyneuropathy E11.42 [facility] [address] [place] [address] 69270- 1651 Jan, [facility] [id number] [place] [address] 55788- 8132 Jan, Right upper quadrant pain R10.11 and Intractable vomiting with nausea, unspecified vomiting type R11.2 [facility] [id number] [place] [address] 75711- 0026 10 Jan, 2017 Hypertriglyceridemia E78.1 and Essential hypertension I10 [facility] [id number] [place] [address] 34157- 7697 Jan, Essential hypertension I10 ; Type 2 diabetes mellitus with diabetic polyneuropathy E11.42 and Hypertriglyceridemia E78.1 [facility] [id number] [place] [address] 42179- 5811 16 Dec, 2016 Type 2 diabetes mellitus with diabetic polyneuropathy E11.42 [facility] [id number] [place] [address] 79020- 2260 Dec, Hypertriglyceridemia E78.1 ; Essential hypertension I10 ; Type 2 diabetes mellitus with diabetic polyneuropathy E11.42 ; Anxiety disorder , unspecified F41.9 and Moderate persistent asthma without complication J45.40 [facility] [id number] [place] [address] 58995- 8027 Dec, Type 2 diabetes mellitus with diabetic polyneuropathy E11.42 [facility] [id number] [place] [address] [id number] Dec, [facility] [id number] [place] [address] 53702- 2939 Nov, [facility] [id number] [place] [address] 89100- 9643 Nov, [facility] [id number] [place] [address] 47408- 5749 Nov, [facility] [address] [place] [address] 09091- 0509 Nov, Toe infection L08.9 [facility] [id number] [place] [address] 24605- 7947 Nov, [facility] [id number] [place] [address] 12042- 2696 Oct, History of amputation of hallux Z89.419 [facility] [id number] [place] [address] 63348- 2050 Oct, Type 2 diabetes mellitus with diabetic polyneuropathy E11.42 [facility] [id number] [place] [address] 58201- 5381 17 Oct, 2016 Type 2 diabetes mellitus with diabetic polyneuropathy E11.42 [facility] [address] [place] [address] 81985- 5513 Oct, Acute osteomyelitis of left foot M86.172 ; Pre-op exam Z01.818 and Type 2 diabetes mellitus with diabetic polyneuropathy E11.42 [facility] [address] [place] [address] 85071- 6916 Oct, Foot ulcer, left, with unspecified severity L97.529 ; Acute osteomyelitis of left foot M86.172 and Type 2 diabetes mellitus with diabetic polyneuropathy E11.42 [facility] [address] [place] [address] 03908- 8830 Sep, [facility] [id number] [place] [address] 12067- 7712 02 Sep, 2016 Intractable vomiting with nausea, unspecified vomiting type R11.2 and Right upper quadrant pain R10.11 [facility] [id number] [place] [address] 47581- 6425 14 Aug, 2016 [facility] [id number] [place] [address] 12567- 1661 13 Jul, 2016 [facility] [id number] [place] [address] 26529- 8411 Jul, Preop examination Z01.818 [facility] [address] [address]- 5490 Jul, [facility] [address] [place] [address] 08849- 6094 Jul, [facility] [address] [place] [address] 21639- 4790 Jul, Chronic osteomyelitis of left foot M86.672 and Ulcer of left foot, with unspecified severity L97.529 [facility] [address] [place] [address] 04087- 2548 Jul, Non-pressure chronic ulcer of other part of left foot with unspecified severity L97.529 [facility] [address] [place] [address] 84085- 6362 Jul, [facility] [id number] [place] [address] 81889- 5540 Jul, [facility] [address] [place] [address] 56748- 9983 Jun, [facility] [id number] [place] [address] 43116- 4767 Jun, [facility] [address] [address]- 3520 Jun, [facility] [id number] [place] [address] 54389- 8448 Jun, Right upper quadrant pain R10.11 [facility] [address] [address]- 2074 20 Jun, 2016 [facility] [id number] [place] [address] 03826- 4355 19 Jun, 2016 Intractable vomiting with nausea, unspecified vomiting type R11.2 [facility] [address] [place] [address] 39685- 3515 Jun, Right upper quadrant pain R10.11 ; Migraine with aura and with status migrainosus, not intractable G43.101 and Intractable vomiting with nausea, unspecified vomiting type R11.2 [facility] [address] [place] [address] 78856- 9887 Jun, [facility] [address] [place] [address] 75738- 9608 Jun, Gastroenteritis K52.9 [facility] [address] 93119- 3828 May, [address] 99180- 6137 May, Hypertriglyceridemia E78.1 ; Essential hypertension I10 ; Type 2 diabetes mellitus with diabetic polyneuropathy E11.42 ; Moderate persistent asthma without complication J45.40 ; Type 2 diabetes mellitus with foot ulcer E11.621 ; Other chronic pain G89.29 ; Pain in right leg M79.604 ; Pain of left leg M79.605 ; Rash and nonspecific skin eruption R21 and Anxiety disorder, unspecified F41.9 [place] [id number] [place] [address] 47390- 9125 May, Essential hypertension I10 ; Hypertriglyceridemia E78.1 ; Upper respiratory infection J06.9 ; Subclinical hypothyroidism E03.9 and Type 2 diabetes mellitus with diabetic polyneuropathy E11.42 [place] [id number] [place] [address] 49716- 3759 Apr, Hypertriglyceridemia E78.1 ; Subclinical hypothyroidism E03.9 ; Essential hypertension I10 and Type 2 diabetes mellitus with diabetic polyneuropathy E11.42 [place] [id number] [place] [address] 87182- 7414 Mar, [place] [id number] [place] [address] 70092- 3482 Mar, Ulcer of right heel L97.[address] 55331- 3398 Mar, [facility] [address] [address]- 0972 Mar, [facility] [id number] [place] [address] 80747- 3072 February, [facility] [id number] [place] [address] 88323- 9696 February, Ulcer of right heel L97.419 and DM neuro manif type II E11.49 [facility] [id number] [place] [address] 74446- 7436 Jan, [facility] [address] [place] [address] 41395- 9646 Jan, Ulcer of right heel L97.419 ; Type 2 diabetes mellitus with foot ulcer E11.621 and Non-pressure chronic ulcer of other part of left foot with unspecified severity L97.529 [facility] [address] [place] [address] 12065- 4952 Jan, [facility] [id number] [place] [address] 72023- 9634 Jan, [facility] [id number] [place] [address] 26928- 4844 Jan, Infection of toenail L03.039 [facility] [address] [place] [address] 20598- 1204 Jan, Blister of toe of left foot, initial encounter S90.425A and Type 2 diabetes mellitus with diabetic polyneuropathy E11.42 [facility] [address] [address]- 1414 Jan, [facility] [id number] [place] [address] 87688 -8156 Jan, Sore throat J02.9 and Strep pharyngitis J02.0 [facility] [address] [place] [address] 53868- 9883 Dec, Type 2 diabetes mellitus with diabetic polyneuropathy E11.42 ; Upper respiratory infection J06.9 ; Cough R05 and Asthma exacerbation J45.901 [facility] [id number] [place] [address] 63662- 8798 Oct, [facility] [id number] [place] [address] 35006- 4057 Oct, [facility] [id number] [place] [address] 48770- 2809 Oct, [facility] [id number] [place] [address] 24903- 6387 Oct, [facility] [id number] [place] [address] 94839- 4733 Sep, [facility] [id number] [place] [address] 68306- 3466 Aug, Anxiety disorder, unspecified F41.9 and Obesity E66.9 [facility] [id number] [place] [address] 28680- 4074 Aug, Moderate persistent asthma without complication J45.40 [facility] [id number] [place] [address] 02299- 9178 Aug, Anxiety disorder, unspecified F41.9 [facility] [address] [place] [address] 63868- 9820 Aug, Encounter for immunization Z23 ; Chronic migraine G43.709 ; Hypertriglyceridemia E78.1 ; Type 2 diabetes mellitus with diabetic polyneuropathy E11.42 ; Moderate persistent asthma without complication J45.40 and Morbid obesity E66.01 [facility] [place] [address] [place] [address] 01823- 2980 Jul, [facility] [id number] [place] [address] 20909- 9710 Jul, [facility] [place] [id number] [place] [address] 09667- 5280 Jul, [facility] [id number] [place] [address] 72389- 1508 Jul, Subclinical hypothyroidism E03.9 [facility] [id number] [place] [address] 51936- 0680 Jun, Essential hypertension, benign 401.1 ; Diabetic ulcer of lower extremity 250.80 ; Asthma 493.90 ; Diabetes mellitus type II, uncontrolled 250.02 and Hyperlipidemia associated with type 2 diabetes mellitus 250.80 [facility] [id number] [place] [address] 29459- 7542 Jun, [facility] [place] [address] [place] [id number] [place] [address] [id number]- 8574 Jun, [facility] [address] [place] [id number] [place] [address] 73749- 6454 May, [place] [address] [address]- [address] Apr, [facility] [address] [place] [id number] [place] [address] 12108- 7789 Apr, Viral upper respiratory infection 465.9 and Asthma 493.90 [place] [address] [place] [id number] [place] [address] 85486- 6592 Mar, Abnormal ankle brachial index 796.4 [place] [address] [place] [id number] [place] [address] 28295- 2173 February, [facility] [address] [place] [id number] [place] [address] 63363- 0842 February, Essential hypertension, benign 401.1 [facility] [address] [place] [id number] [place] [address] 31412- 9494 February, Diabetic peripheral neuropathy 250.60 ; Ulcer of heel and midfoot 707.14 and Decreased pedal pulses 785.9 [place] [address] [place] [id number] [place] [address] 26788- 0397 February, [facility] [address] [place] [address] February, [facility] [place] [facility] [address] [id number] [place] [address] Jan, [facility] [place] [facility] [address] [id number] [place] [id number] Jan, [facility] [place] [facility] [address] [id number] [place] [address]- 8533 Dec, [facility] [place] [facility] [address] [id number] [place] [address]- 2568 Dec, [facility] [place] [facility] [address] [id number] [place] [address] Nov, [facility] [place] [facility] [address] [id number] [place] [address] Nov, [facility] [place] [facility] [address] [facility] [id number] [place] [address] 24 Nov, 2014 [facility] [place] [facility] [address] [id number] [place] [address] 3072 20 Nov, 2014 [facility] [place] [facility] [address] [id number] [place] [address] 3[address] 18 Nov, 2014 [facility] [place] [facility] [address] [facility] [id number] [place] [address]161 Nov, [facility] [place] [facility] [address] [facility] [id number] [place] [address] Nov, [facility] [place] [facility] [address] [id number] [place] [address] 5523 Nov, [facility] [place] [facility] [address] [id number] [place] [address] 0129 Nov, [facility] [place] [facility] [address] [facility] [id number] [place] [address] 4094 Oct, [facility] [place] [facility] [address] [id number] [place] [address] 4547 Oct, [facility] [place] [facility] [address] [id number] [place] [address] 3178 Oct, [facility] [place] [facility] [address] [id number] [place] [address]- 8064 Oct, [facility] [place] [facility] [address] [id number] [place] [address] 8416 Oct, [facility] [place] [facility] [address] [id number] [place] [address]- 9320 Oct, [facility] [place] [facility] [address] [id number] [place] [address] 2889 Oct, [facility] [place] [facility] [address] [id number] [place] [address]- 1133 Oct, [facility] [place] [facility] [address] [id number] [place] [address]- 0829 Oct, [facility] [place] [facility] [address] [id number] [place] [address] 6144 Oct, [facility] [place] [facility] [address] [id number] [place] [address]- 2597 Oct, [facility] [place] [facility] [address] [id number] [place] [address]- 5405 Oct, [facility] [place] [facility] [address] [id number] [place] [address] 1214 Oct, [facility] [place] [facility] [address] [id number] [place] [address] 90[address] Sep, [facility] [place] [facility] [address] [id number] [place] [address]- 6171 Sep, [facility] [place] [facility] [address] [id number] [place] [address]- 0544 Sep, [facility] [place] [facility] [address] [id number] [place] [address]- 8193 Sep, [facility] [place] [facility] [address] [id number] [place] [address] Sep, [facility] [place] [facility] [address] [id number] [place] [address]- 0215 Sep, [facility] [place] [facility] [address] [id number] [place] [address]- 4906 Sep, [facility] [place] [facility] [address] [id number] [place] [address]- 2226 Sep, [facility] [place] [facility] [address] [id number] [place] [address]- 9374 Sep, [facility] [place] [facility] [address] [id number] [place] [address]- 7635 Sep, [facility] [place] [facility] [address] [id number] [place] [address]- 8825 Sep, [facility] [place] [facility] [address] [id number] [place] [address]- 3204 Sep, [facility] [place] [facility] [address] [id number] [place] [address]- 4752 Sep, [facility] [place] [facility] [address] [id number] [place] [address]- 7198 Sep, [facility] [place] [facility] [address] [facility] [id number] [place] [address]- 8582 Sep, [facility] [place] [facility] [address] [id number] [place] [address] Sep, [facility] [place] [facility] [address] [id number] [place] [address]- 9937 Aug, [facility] [place] [facility] [address] [id number] [place] [address] Aug, [facility] [place] [facility] [address] [id number] [place] [address]- 7942 Aug, [facility] [place] [facility] [address] [id number] [place] [address] Aug, [facility] [place] [facility] [address] [id number] [place] [address]- 5661 Aug, [facility] [place] [facility] [address] [id number] [place] [address]- 6773 Aug, [facility] [place] [facility] [address] [id number] [place] [address]- 0031 Aug, [facility] [place] [facility] [address] [id number] [place] [address]- 9680 Aug, [facility] [place] [facility] [address] [id number] [place] [address]- 2069 Jul, [facility] [place] [facility] [address] [id number] [place] [address]- 9817 Jul, [facility] [place] [facility] [address] [id number] [place] [address]- 4421 Jul, [facility] [place] [facility] [address] [id number] [place] [address]- 2867 Jul, [facility] [place] [facility] [address] [id number] [place] [address]- 0726 Jul, [facility] [place] [facility] [address] [id number] [place] [address]- 4998 Jun, [facility] [place] [facility] [address] [id number] [place] [address]- 4477 Jun, [facility] [place] [facility] [address] [id number] [place] [address]- 0299 Jun, [facility] [place] [facility] [address] [id number] [place] [address]- 7570 Jun, [facility] [place] [facility] [address] [id number] [place] [address]- 6987 Jun, [facility] [place] [facility] [address] [id number] [place] [address]- 5036 May, [facility] [place] [facility] [address] [id number] [place] [address]- 1916 May, [facility] [place] [facility] [address] [id number] [place] [address]- 5744 Apr, [facility] [place] [facility] [address] [id number] [place] [address]- 9926 Apr, [facility] [place] [facility] [address] [id number] [place] [address]- 1339 Apr, [facility] [place] [facility] [address] [id number] [place] [address]- 5210 Apr, [facility] [place] [facility] [address] [id number] [place] [address]- 0212 Apr, [facility] [place] [facility] [address] [id number] [place] [address]- 7938 Apr, [facility] [place] [facility] [address] [id number] [place] [address]- 4804 Mar, [facility] [place] [facility] [address] [id number] [place] [address]- 1849 Mar, [facility] [place] [facility] [address] [id number] [place] [address]- 0589 Mar, [facility] [place] [facility] [address] [id number] [place] [address]- 5165 Mar, [facility] [place] [facility] [address] [id number] [place] [address]- 2932 Mar, [facility] [place] [facility] [address] [id number] [place] [address]- 5265 Mar, [facility] [place] [facility] [address] [id number] [place] [address]- 3876 Mar, [facility] [place] [facility] [address] [id number] [place] [address]- 1199 Mar, [facility] [place] [facility] [address] [id number] [place] [address]- 3497 Mar, [facility] [place] [facility] [address] [id number] [place] [address]- 8492 16 Mar, 2014 [facility] [place] [facility] [address] [id number] [place] [address]- 9487 Mar, [facility] [place] [facility] [address] [id number] [place] [address]- 0338 Mar, [facility] [place] [facility] [address] [id number] [place] [address]- 9816 Mar, [facility] [place] [facility] [address] [id number] [place] [address]- 9167 Mar, [facility] [place] [facility] [address] [id number] [place] [address]- 2446 Mar, [facility] [place] [facility] [address] [id number] [place] [address]- 2841 Mar, [facility] [place] [facility] [address] [id number] [place] [address]- 1183 February, [facility] [place] [facility] [address] [id number] [place] [address]- 9131 February, [facility] [place] [facility] [address] [id number] [place] [address]- 5418 February, [facility] [place] [facility] [address] [id number] [place] [address]- 9006 February, [facility] [place] [facility] [address] [id number] [place] [address]- 9258 February, [facility] [place] [facility] [address] [id number] [place] [address]- 8338 February, [facility] [place] [facility] [address] [id number] [place] [address]- 6001 February, [facility] [place] [facility] [address] [id number] [place] [address]- 5667 February, [facility] [place] [facility] [address] [id number] [place] [address]- 2610 Jan, [facility] [place] [facility] [address] [id number] [place] [address]- 4227 Jan, [facility] [place] [facility] [address] [id number] [place] [address]- 1520 Dec, [facility] [place] [facility] [address] [id number] [place] [address]- 8235 Dec, [facility] [place] [facility] [address] [id number] [place] [address]- 9267 Dec, [facility] [place] [facility] [address] [id number] [place] [address]- 7025 Dec, [facility] [place] [facility] [address] [id number] [place] [address]- 2771 Dec, [facility] [place] [facility] [address] [id number] [place] [address]- 0265 Dec, [facility] [place] [facility] [address] [id number] [place] [address]- 0181 Dec, [facility] [place] [facility] [address] [id number] [place] [address]- 9972 19 Dec, 2013 [facility] [place] [facility] [address] [id number] [place] [address]- 6046 17 Dec, 2013 [facility] [place] [facility] [address] [id number] [place] [address]- 2975 17 Dec, 2013 [facility] [place] [facility] [address] [id number] [place] [address]- 1993 14 Dec, 2013 [facility] [place] [facility] [address] [id number] [place] [address]- 6684 14 Dec, 2013 [facility] [place] [facility] [address] [id number] [place] [address]- 2963 12 Dec, 2013 [facility] [place] [facility] [address] [id number] [place] [address]- 5224 Dec, [facility] [place] [facility] [address] [id number] [place] [address]- 9503 Nov, [facility] [address] [id number] [place] [address]- 4662 Nov, [facility] [address] [id number] [place] [address]- 2600 Oct, [facility] [address] [facility] [id number] [place] [address]- 8873 Oct, [facility] [place] [facility] [address] [id number] [place] [address]- 0769 Oct, [facility] [address] [id number] [place] [address]- 3761 Oct, [facility] [address] [id number] [place] [address]- 7522 Oct, [facility] [address] [facility] [id number] [place] [address]- 8722 Oct, [facility] [address] [facility] [id number] [place] [address]- 4916 Oct, [facility] [address] [id number] [place] [address]- 8324 Sep, [facility] [address] [facility] [id number] [place] [address]- 3423 Sep, [facility] [place] [facility] [address] [id number] [place] [address]- 8271 Sep, [facility] [place] [facility] [address] [id number] [place] [address]- 9560 Sep, [facility] [place] [facility] [address] [id number] [place] [address]- 6020 Sep, [facility] [place] [facility] [address] [facility] [id number] [place] [address]- 8492 Sep, [facility] [place] [facility] [address] [facility] [id number] [place] [address]482 Sep, [facility] [place] [facility] [address] [id number] [place] [address]- 0086 Sep, [facility] [address] [id number] [place] [address]- 4345 Sep, [facility] [place] [facility] [address] [id number] [place] [address]- 1330 Sep, [facility] [place] [facility] [address] [id number] [place] [address]- 4792 Sep, [facility] [place] [facility] [address] [id number] [place] [address]- 4874 Sep, [facility] [place] [facility] [address] [id number] [place] [address]- 0368 Sep, [facility] [place] [facility] [address] [id number] [place] [address]- 2912 Sep, [facility] [place] [facility] [address] [id number] [place] [address]- 9955 Sep, [facility] [place] [facility] [address] [id number] [place] [address]- 1821 Sep, [facility] [place] [facility] [address] [id number] [place] [address]- 1768 Sep, [facility] [place] [facility] [address] [id number] [place] [address]- 3699 Sep, [facility] [place] [facility] [address] [id number] [place] [address]- 2674 Sep, [facility] [place] [facility] [address] [id number] [place] [address]- 2987 Aug, [facility] [place] [facility] [address] [id number] [place] [address]- 9657 Aug, [facility] [place] [facility] [address] [id number] [place] [address]- 1929 Aug, [facility] [place] [facility] [address] [id number] [place] [address]- 8977 Aug, [facility] [place] [facility] [address] [id number] [place] [address]- 9284 Aug, [facility] [place] [facility] [address] [id number] [place] [address]- 8283 Aug, [facility] [place] [facility] [address] [id number] [place] [address]- 7558 Aug, [facility] [place] [facility] [address] [id number] [place] [address]- 8657 Aug, [facility] [place] [facility] [address] [id number] [place] [address]- 3531 Aug, [facility] [place] [facility] [address] [id number] [place] [address]- 1209 Aug, [facility] [place] [facility] [address] [id number] [place] [address]- 1639 Aug, [facility] [place] [facility] [address] [id number] [place] [address]- 4476 Aug, [facility] [place] [facility] [address] [id number] [place] [address]- 1180 Aug, [facility] [place] [facility] [address] [id number] [place] [address]- 6386 Aug, [facility] [place] [facility] [address] [id number] [place] [address]- 5942 Aug, [facility] [place] [facility] [address] [id number] [place] [address]- 8920 Aug, [facility] [place] [facility] [address] [id number] [place] [address]- 4906 Aug, [facility] [place] [facility] [address] [id number] [place] [address]- 5044 Jul, [facility] [place] [facility] [address] [id number] [place] [address]- 9262 Jul, [facility] [place] [facility] [address] [id number] [place] [address]- 7617 30 Jul, 2012 [facility] [address] [id number] [place] [address]- 0790 30 Jul, 2012 [facility] [place] [facility] [address] [id number] [place] [address]- 1473 18 Jul, 2012 [facility] [address] [id number] [place] [address]- 8636 18 Jul, 2012 [facility] [place] [facility] [address] [id number] [place] [address]- 2545 Jul, [facility] [place] [facility] [address] [id number] [place] [address]- 1839 27 Jun, 2012 [facility] [place] [facility] [address] [id number] [place] [address]- 4009 20 Jun, 2012 [facility] [address] [id number] [place] [address]- 9366 17 Jun, 2012 [facility] [address] [id number] [place] [address]- 8390 10 Jun, 2012 [facility] [place] [facility] [address] [id number] [place] [address] 2549 06 Sep, 2012 [facility] [place] [facility] [address] [id number] [place] [address]- 2544 06 Sep, 2012 [facility] [place] [facility] [address] [id number] [place] [address] 2544 05 Sep, 2012 [facility] [place] [facility] [address] [id number] [place] [address]- 254 03 Jun, 2012 [facility] [place] [facility] [address] [id number] [place] [address] 2549 27 May, 2013 [facility] [place] [facility] [address] [id number] [place] [address]- 2544 22 May, 2013 [facility] [place] [facility] [address] [id number] [place] [address]- 3960 May, [facility] [address] [facility] [id number] [place] [address]- 7483 May, [facility] [address] [facility] [id number] [place] [address]- 8364 May, [facility] [address] [facility] [id number] [place] [address]- 7139 May, [facility] [address] [facility] [id number] [place] [address]- 8009 May, [facility] [address] [facility] [id number] [place] [address]- 0581 May, IMMUNIZATIONS No Known Immunizations SOCIAL HISTORY Never Assessed REASON FOR VISIT SOB has been getting worse over the past few weeks. called dr chicas office et was advised to come to [facility] if not better...all according to the pt kbullaveryn PLAN OF CARE Activity Details Follow Up March 02 w/ Dr. Hoskins Reason:chronic management VITAL SIGNS Height 62 in 2018-02-21 Weight 352.8 lbs 2018-02-21 Temperature 97.5 degrees Fahrenheit 2018-02-21 Heart Rate 94 bpm 2018-02-21 Respiratory Rate 22 2018-02-21 Oximetry on room air:98 % 2018-02-21 BMI 64.52 kg/m2 2018-02-21 Blood pressure systolic 128 mmHg 2018-02-21 Blood pressure diastolic 80 mmHg 2018-02-21 MEDICATIONS Medication Instructions Dosage Frequency Start Date End Date Duration Status Metformin HCl 1000 MG Orally 2 times a day 1 tablet with meals 12h 90 days Active Atorvastatin Calcium 80 MG Orally Once a day 1 tablet 24h 30 Active Zofran 8 MG Orally every 8 hours, PRN as directed Dec, Active Loratadine 10 mg Orally Once a day 1 tablet 24h 90 Active Flonase 50 MCG/ACT Nasally Once a day 1 spray in each nostril 24h Jan, 30 day(s) Active Probiotic - Active Lisinopril 40 MG TAKE ONE TABLET BY MOUTH ONCE DAILY 90 Active Albuterol Sulfate 90 mcg/actuation Inhalation every 4-6 hours as needed 2 puffs May, Active Sertraline HCl 100 MG Orally Once a day 1 tablet 24h 90 days Active Hydrocodone-Acetaminophen 5-325 MG Orally every 4- 6 hrs as needed 1 tablet 16 Nov, 2017 Active Excedrin Migraine 250-250-65 MG Orally as directed 2 tablets as needed Active Levemir Flexpen 100 UNIT/ML subcutaneously 2 times a day 50 units 12h Active Fenofibrate 160 MG TAKE ONE TABLET BY MOUTH ONCE DAILY WITH A MEAL 90 Active Pulmicort Flexhaler 90 MCG/ACT INHALE ONE PUFF BY MOUTH TWICE DAILY 30 Active Gabapentin 600 MG Orally 3 times a day 1 capsule 8h 90 days Active Cromolyn Sodium 4 % Ophthalmic 2 times a day 2 drops into affected eye as needed 12h 18 Feb, 2017 Active NovoLog Flexpen 100 UNIT/ML Subcutaneous 3 times a day 30 units 8h Active Hydrochlorothiazide 25 MG TAKE ONE TABLET BY MOUTH ONCE DAILY 90 Active Metoprolol Tartrate 50 MG TAKE ONE TABLET BY MOUTH TWICE DAILY WITH FOOD 90 Active Montelukast Sodium 10 MG TAKE ONE TABLET BY MOUTH ONCE DAILY IN THE EVENING 90 Active Multivitamin 1 Tablet 1 time per day May, Active Rizatriptan Benzoate 10 mg Orally PRN 1 tablet as needed at onset of headache , may repeat in 2 hours x 2 if needed Apr, Active Glucometer One Touch Ultra as directed Dec, Active Test strips One Touch Ultra as directed 6h Dec, Active RESULTS No Results PROCEDURES No Known procedures INSTRUCTIONS MEDICATIONS ADMINISTERED No Known Medications MEDICAL (GENERAL) HISTORY Type Description Date Medical History type I diabetes Medical History hypertension Medical History hyperlipidemia Medical History asthma Medical History migraine headaches Medical History allergic rhinitis Medical History neuropathy Medical History Chronic osteomyelitis, site unspecified Medical History 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 Surgical History appendectomy Davida Antunez 1995 Surgical History salpingectomy Davida Antunez Surgical History bladder surgery-stretch Davida Antunez 2003 Surgical History exploratory laparoscopy [facility], [facility] 1995 Surgical History amputation, toe (R great) Surgical History amputation, (R forefoot) 2015 Surgical History amputation, toe Left second 12/2016 Surgical History amputation, 4th left toe 02/2017 Hospitalization History Left foot cellulitis, left 2nd toe amputation-[facility] 12/23 Hospitalization History Surgery Hospitalizations
--- OUTSIDE RECORDS SUMMARY | 2018-08-22 09:06 | XMS REPORT ---
Author Author LUDIVINA STEPHANIE [facility] Address [address] [place] [address] Care Team Providers Care Gravity Manager Name Role Phone FARNAZ FLORENCEY Unavailable PROBLEMS Type Condition ICD9-CM Code [id number] Code Onset Dates Condition Status SNOMED Code Problem Subclinical hypothyroidism E03.9 Active 31377732 Problem Hypertriglyceridemia E78.1 Active 001830517 Problem Type 2 diabetes mellitus with diabetic polyneuropathy E11.42 Active 846410514 Problem Type 2 diabetes mellitus with diabetic chronic 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 Active 365491133 Problem Other chronic pain G89.29 Active 34147326 Problem Type 2 diabetes mellitus with other skin complications E11.628 Active 42823512 Problem Pain in left foot M79.672 Active 56491489 Problem Irregular menstrual cycle N92.6 Active 82587083 Problem Pain in right foot M79.671 Active 61763039 Problem Tonsillolith J35.8 Active 6775089 Problem Chronic prescription opiate use Z79.891 Active 736866969 Problem Seasonal allergic rhinitis due to pollen J30.1 Active 70372705 Problem Asthma exacerbation, mild J45.901 Active 147486662 Problem Chronic kidney disease, stage III (moderate) N18.3 Active 913320740 Problem Chronic migraine G43.709 Active 03349511 Problem Moderate persistent asthma without complication J45.40 Active 985640622 Problem Intrinsic eczema L20.84 Active 93046537 Problem Severe episode of recurrent major depressive disorder, without psychotic features F33.2 Active 71594611 Problem Non-pressure chronic ulcer of right heel and midfoot limited to breakdown of skin L97.411 Active 666658809 Problem Ulcer of right heel L97.419 Active 755599355 Problem Obesity E66.9 Active 363506542 Problem Type 2 diabetes mellitus with foot ulcer E11.621 Active 41510439 Problem Essential hypertension I10 Active 09857983 Problem Anxiety disorder, unspecified F41.9 Active 083926194 Problem Type 2 diabetes mellitus with other specified complication E11.69 Active 044059556 Problem Status post amputation of toe of left foot Z89.422 Active 029119956 Problem DM neuro manif type II E11.49 Active 98481419 Problem History of amputation of hallux Z89.419 Active 032111527 ALLERGIES No Information ENCOUNTERS Encounter Location Date Diagnosis [facility] [id number] [place] [address] 51493- 1236 Apr, [facility] [address] 14918- 4001 Apr, Chronic migraine G43.709 [facility] [id number] [place] [address] 79418- 3234 Apr, [place] [address] 81318- 9802 Mar, Moderate persistent asthma without complication J45.40 [facility] [address] 57581- 1266 Mar, Moderate persistent asthma without complication J45.40 [facility] [id number] [place] [address] 02362- 4091 Mar, [facility] [id number] [place] [address] 85613- 2555 February, Chronic migraine G43.709 [facility] [id number] [place] [address] 04982- 0265 February, Chronic migraine G43.709 [facility] [id number] [place] [address] 46113- 8497 February, [facility] [id number] [place] [address] 03722- 9997 February, [facility] [id number] [place] [address] 49964- 4984 February, Type 2 diabetes mellitus with diabetic polyneuropathy E11.42 ; Moderate persistent asthma without complication J45.40 ; Type 2 diabetes mellitus with foot ulcer E11.621 ; Non-pressure chronic ulcer of right heel and midfoot limited to breakdown of skin L97.411 ; Chronic migraine G43.709 and BMI 60.0-69.9, adult Z68.44 [facility] [id number] [place] [address] 90138 -9442 Jan, Asthma exacerbation, mild J45.901 ; Seasonal allergic rhinitis due to pollen J30.1 and BMI 60.0-69.9, adult Z68.44 [place] [address] 59582- 1035 Jan, [place] [address] 92356- 6268 Jan, Other chronic pain G89.29 [place] [address] 73377- 1498 30 Dec, 2017 Type 2 diabetes mellitus with diabetic polyneuropathy E11.42 [place] [address] 72521- 9683 Dec, Type 2 diabetes mellitus with diabetic polyneuropathy E11.42 [place] [id number] [place] [address] 73915- 4536 15 Dec, 2017 [place] [id number] [place] [address] 55537- 6768 Dec, [place] [id number] [place] [address] 01142- 2339 Dec, Chronic kidney disease, stage III (moderate) N18.3 [facility] [id number] [place] [address] 27840 -8832 09 Dec, 2017 Nausea R11.0 and Diarrhea, unspecified type R19.7 [place] [address] 37485- 0595 07 Dec, 2017 Chronic kidney disease, stage III (moderate) N18.3 and Type 2 diabetes mellitus with diabetic polyneuropathy E11.42 [place] [address] 17357- 3631 Dec, [facility] [id number] [place] [address] 32404- 4740 Nov, Ulcer of right heel L97.419 and Type 2 diabetes mellitus with diabetic polyneuropathy E11.42 [facility] [address] [place] [address] [id number] Nov, Dental examination Z01.20 [place] [id number] [place] [address] 14101- 7010 Nov, Open wound of right foot, initial encounter S91.301A [facility] [address] 96276 -2668 Nov, Open wound of right foot, initial encounter S91.301A ; Non- intractable vomiting with nausea, unspecified vomiting type R11.2 and BMI 60.0- 69.9, adult Z68.44 [place] [address] 53378- 4802 Nov, [place] [address] 58728- 9191 Nov, Other chronic pain G89.29 [place] [address] 20248- 5531 Oct, Cellulitis of right lower limb L03.115 [place] [id number] [place] [address] 08675- 0014 Oct, [place] [id number] [place] [address] 42236- 4298 Oct, [place] [address] 68615- 6075 Oct, Cat scratch W55.03XA ; Cellulitis of right lower limb L03.115 ; Acute nasopharyngitis J00 ; BMI 60.0-69.9, adult Z68.44 and Cough R05 [place] [address] [place] [address]- 9373 Oct, Cat scratch W55.03XA ; Cutaneous abscess of right lower extremity L02.415 and Cellulitis of right lower limb L03.115 [place] [id number] [place] [address] 22575- 9067 Oct, Type 2 diabetes mellitus with diabetic polyneuropathy E11.42 [place] [address] 99572- 2019 Oct, Other chronic pain G89.29 [place] [address] 14129- 7593 Aug, [place] [address] 35362- 4466 Jul, Other chronic pain G89.29 [place] [address] 80579- 0212 Jul, [place] [address] 59799- 3398 Jul, Chronic kidney disease, stage III (moderate) N18.[address] 66812- 6737 Jul, Type 2 diabetes mellitus with diabetic polyneuropathy E11.42 ; Essential hypertension I10 ; Irregular menstrual cycle N92.6 ; Hypertriglyceridemia E78.1 ; Anxiety disorder, unspecified F41.9 ; Severe episode of recurrent major depressive disorder, without psychotic features F33.2 ; Tonsillolith J35.8 ; Intrinsic eczema L20.84 ; Subclinical hypothyroidism E03.9 ; Viral pharyngitis J02.9 and Encounter for immunization Z23 [address] 39229- 5465 Jun, Essential hypertension I10 [address] 88816- 0701 08 Jun, [address] 99656- 0907 Jun, [facility] [id number] [place] [address] 06058- 3996 May, Moderate persistent asthma without complication J45.40 [facility] [id number] [place] [address] 88880- 1717 May, Pain in right foot M79.671 ; Pain in left foot M79.672 ; Other chronic pain G89.29 and Chronic prescription opiate use Z79.891 [facility] [id number] [place] [address] 42273- 6110 May, [place] [address] 39401- 4964 May, [facility] [id number] [place] [address] 97502- 4553 Apr, [place] [address] 08681- 6925 Apr, Chronic migraine G43.709 [place] [id number] [place] [address] 93530- 5596 Apr, Essential hypertension I10 ; Hypertriglyceridemia E78.1 and Chronic migraine G43.709 [place] [id number] [place] [address] 72717- 2918 Apr, [place] [id number] [place] [address] 58693- 1484 Apr, Sore throat J02.9 [facility] [id number] [place] [address] 02812- 8128 Apr, [facility] [address] 26546- 8266 Mar, Strep pharyngitis J02.0 and Non-intractable vomiting with nausea, unspecified vomiting type R11.2 [place] [id number] [place] [address] 13730- 5393 Mar, [facility] [address] [place] [address]- 9434 Mar, [facility] [id number] [place] [address] 51681- 8622 Mar, [facility] [id number] [place] [address] 17542- 3742 Mar, Type 2 diabetes mellitus with diabetic polyneuropathy E11.42 ; Moderate persistent asthma without complication J45.40 ; Status post amputation of toe of left foot Z89.422 ; Acute seasonal allergic rhinitis, unspecified trigger J30.2 and Left shoulder pain, unspecified chronicity M25.512 [place] [id number] [place] [address] 82369- 2392 Mar, [facility] [id number] [place] [address] 38225- 7080 February, Pre-op evaluation Z01.818 ; Type 2 diabetes mellitus with diabetic polyneuropathy E11.42 and Type 2 diabetes mellitus with foot ulcer E11.621 [facility] [id number] [place] [address] 31499- 7215 February, [facility] [id number] [place] [address] 42116- 1267 February, [facility] [id number] [place] [address] 93484- 1214 February, Toe infection L08.9 and Type 2 diabetes mellitus with other specified complication E11.69 [facility] [address] [address]- 9753 February, [facility] [address] [place] [address] 43999- 9218 Jan, Type 2 diabetes mellitus with diabetic polyneuropathy E11.42 [facility] [address] [address]- 8822 Jan, [facility] [id number] [place] [address] 52398- 8309 Jan, Right upper quadrant pain R10.11 and Intractable vomiting with nausea, unspecified vomiting type R11.2 [facility] [id number] [place] [address] 52174- 4086 10 Jan, 2017 Hypertriglyceridemia E78.1 and Essential hypertension I10 [facility] [id number] [place] [address] 54169- 3698 07 Jan, 2017 Essential hypertension I10 ; Type 2 diabetes mellitus with diabetic polyneuropathy E11.42 and Hypertriglyceridemia E78.1 [facility] [id number] [place] [address] 68527- 3680 16 Dec, 2016 Type 2 diabetes mellitus with diabetic polyneuropathy E11.42 [facility] [id number] [place] [address] 29789- 3751 15 Dec, 2016 Hypertriglyceridemia E78.1 ; Essential hypertension I10 ; Type 2 diabetes mellitus with diabetic polyneuropathy E11.42 ; Anxiety disorder , unspecified F41.9 and Moderate persistent asthma without complication J45.40 [facility] [id number] [place] [address] 30985- 6291 Dec, Type 2 diabetes mellitus with diabetic polyneuropathy E11.42 [facility] [address] [id number] Dec, [facility] [id number] [place] [address] 76317- 9644 Nov, [facility] [id number] [place] [address] 01924- 2906 Nov, [facility] [id number] [place] [address] 80038- 1484 Nov, [facility] [id number] [place] [address] 52758- 0145 Nov, Toe infection L08.9 [facility] [id number] [place] [address] 35361- 2889 Nov, [facility] [address] [address]- 9254 Oct, History of amputation of hallux Z89.419 [facility] [id number] [place] [address] 06532- 9450 18 Oct, 2016 Type 2 diabetes mellitus with diabetic polyneuropathy E11.42 [facility] [address] [place] [address]- 9656 17 Oct, 2016 Type 2 diabetes mellitus with diabetic polyneuropathy E11.42 [facility] [id number] [place] [address] 62964- 6343 Oct, Acute osteomyelitis of left foot M86.172 ; Pre-op exam Z01.818 and Type 2 diabetes mellitus with diabetic polyneuropathy E11.42 [facility] [address] [place] [address] 11135- 3283 Oct, Foot ulcer, left, with unspecified severity L97.529 ; Acute osteomyelitis of left foot M86.172 and Type 2 diabetes mellitus with diabetic polyneuropathy E11.42 [facility] [address] [place] [address] 07681- 3738 Sep, [place] [id number] [place] [address] 62434- 1935 Sep, Intractable vomiting with nausea, unspecified vomiting type R11.2 and Right upper quadrant pain R10.11 [place] [id number] [place] [address] 10367- 4615 Aug, [facility] [id number] [place] [address] 72650- 7278 Jul, [facility] [id number] [place] [address] 32289- 7528 Jul, Preop examination Z01.818 [facility] [address] [place] [address] 71880- 6357 Jul, [facility] [id number] [place] [address] 52597- 4526 Jul, [facility] [address], [place] [address]- 9513 Jul, Chronic osteomyelitis of left foot M86.672 and Ulcer of left foot, with unspecified severity L97.529 [facility] [address] [place] [address]- 2846 Jul, Non-pressure chronic ulcer of other part of left foot with unspecified severity L97.529 [facility] [address] [place] [address]- 3325 Jul, [facility] [id number] [place] [address] 29741- 4043 Jul, [facility] [id number] [place] [address] 79085- 6378 28 Jun, 2016 [facility] [id number] [place] [address] 65526- 2804 Jun, [facility] [address] [place] [address] 33867- 2764 26 Jun, 2016 [facility] [id number] [place] [address] 72199- 7948 21 Jun, 2016 Right upper quadrant pain R10.11 [facility] [address] [address]- 1171 20 Jun, 2016 [facility] [id number] [place] [address] 92828- 1828 19 Jun, 2016 Intractable vomiting with nausea, unspecified vomiting type R11.2 [facility] [address], [place] [address]- 5523 13 Jun, 2016 Right upper quadrant pain R10.11 ; Migraine with aura and with status migrainosus, not intractable G43.101 and Intractable vomiting with nausea, unspecified vomiting type R11.2 [facility] [address], [place] [address]- 5371 12 Jun, 2016 [place] [address] [address]- 3244 Jun, Gastroenteritis K52.9 [facility] [id number] [place] [address] 52233- 2895 May, [place] [id number] [place] [address] 02319- 1147 May, Hypertriglyceridemia E78.1 ; Essential hypertension I10 ; Type 2 diabetes mellitus with diabetic polyneuropathy E11.42 ; Moderate persistent asthma without complication J45.40 ; Type 2 diabetes mellitus with foot ulcer E11.621 ; Other chronic pain G89.29 ; Pain in right leg M79.604 ; Pain of left leg M79.605 ; Rash and nonspecific skin eruption R21 and Anxiety disorder, unspecified F41.9 [place] [address] [place] [address] 62605- 3344 May, Essential hypertension I10 ; Hypertriglyceridemia E78.1 ; Upper respiratory infection J06.9 ; Subclinical hypothyroidism E03.9 and Type 2 diabetes mellitus with diabetic polyneuropathy E11.42 [place] [id number] [place] [address] 29722- 4061 Apr, Hypertriglyceridemia E78.1 ; Subclinical hypothyroidism E03.9 ; Essential hypertension I10 and Type 2 diabetes mellitus with diabetic polyneuropathy E11.42 [place] [address] [address]- 2808 Mar, [place] [id number] [place] [address] 62601- 2286 Mar, Ulcer of right heel L97.419 [place] [id number] [place] [address] 92901- 2055 Mar, [place] [id number] [place] [address] 58725- 0836 Mar, [place] [address] [place] [address]- 4007 February, [place] [id number] [place] [address] 76949- 2809 February, Ulcer of right heel L97.419 and DM neuro manif type II E11.49 [place] [id number] [place] [address] 50168- 4483 Jan, [place] [id number] [place] [address] 77765- 5667 Jan, Ulcer of right heel L97.419 ; Type 2 diabetes mellitus with foot ulcer E11.621 and Non-pressure chronic ulcer of other part of left foot with unspecified severity L97.529 [place] [id number] [place] [address] 92235- 5018 Jan, [place] [id number] [place] [address] 72002- 5938 Jan, [place] [id number] [place] [address] 78281- 6426 Jan, Infection of toenail L03.039 [place] [id number] [place] [address] 03488- 3062 Jan, Blister of toe of left foot, initial encounter S90.425A and Type 2 diabetes mellitus with diabetic polyneuropathy E11.42 [place] [address] [place] [address] 80208- 0156 Jan, [facility] [id number] [place] [address] 33767 -6276 Jan, Sore throat J02.9 and Strep pharyngitis J02.0 [place] [id number] [place] [address] 90419- 5657 Dec, Type 2 diabetes mellitus with diabetic polyneuropathy E11.42 ; Upper respiratory infection J06.9 ; Cough R05 and Asthma exacerbation J45.901 [place] [id number] [place] [address] 77079- 6417 Oct, [place] [address] [place] [address]- 3104 Oct, [facility] [id number] [place] [address] 20271- 8914 Oct, [facility] [id number] [place] [address] 69918- 8325 Oct, [facility] [id number] [place] [address] 28301- 3083 Sep, [facility] [id number] [place] [address] 43279- 9920 Aug, Anxiety disorder, unspecified F41.9 and Obesity E66.9 [place] [address] 35904- 3307 Aug, Moderate persistent asthma without complication J45.40 [id number] [place] [address] 19298- 1646 Aug, Anxiety disorder, unspecified F41.9 [place] [id number] [place] [address] 14086- 2704 Aug, Encounter for immunization Z23 ; Chronic migraine G43.709 ; Hypertriglyceridemia E78.1 ; Type 2 diabetes mellitus with diabetic polyneuropathy E11.42 ; Moderate persistent asthma without complication J45.40 and Morbid obesity E66.01 [place] [address] [place] [address] 61181- 0680 Jul, [place] [id number] [place] [address] 06385- 4974 Jul, [facility] [id number] [place] [address] 23499- 5940 Jul, [place] [id number] [place] [address] 31770- 9459 Jul, Subclinical hypothyroidism E03.9 [facility] [address] [place] [address] 41521- 0471 Jun, Essential hypertension, benign 401.1 ; Diabetic ulcer of lower extremity 250.80 ; Asthma 493.90 ; Diabetes mellitus type II, uncontrolled 250.02 and Hyperlipidemia associated with type 2 diabetes mellitus 250.80 [facility] [address] [place] [address]- 7560 18 Jun, 2015 [facility] [address] [place] [address]- 2366 Jun, [facility] [id number] [place] [address] 41971- 2446 May, [facility] [id number] [place] [address] 15293- 2685 Apr, [facility] [id number] [place] [address] 37486- 9683 Apr, Viral upper respiratory infection 465.9 and Asthma 493.90 [place] [id number] [place] [address] [phone]- [phone] Mar, Abnormal ankle brachial index 796.4 [facility] [id number] [address] February, [facility] [id number] [place] [address] 45488- [phone] February, Essential hypertension, benign 401.1 [facility] [id number] [address] February, Diabetic peripheral neuropathy 250.60 ; Ulcer of heel and midfoot 707.14 and Decreased pedal pulses 785.9 [facility] [id number], [place] [address] February, [facility] [id number] [place] [address] [id number]- [phone] February, [facility] [id number] [address] Jan, [facility] [id number] [place] [address] Jan, [facility] [place] [facility] [address] [id number] [place] [address] 7[address] Dec, [facility] [place] [facility] [address] [id number] [place] [address]- 4784 Dec, [facility] [place] [facility] [address] [id number] [place] [address]- 0988 Nov, [facility] [place] [facility] [address] [id number] [place] [address]- 6528 Nov, [facility] [place] [facility] [address] [id number] [place] [address]- 2954 Nov, [facility] [place] [facility] [address] [id number] [place] [address]- 4623 Nov, [facility] [place] [facility] [address] [id number] [place] [address]- 7084 Nov, [facility] [place] [facility] [address] [id number] [place] [address]- 7742 Nov, [facility] [place] [facility] [address] [id number] [place] [address]- 7771 Nov, [facility] [place] [facility] [address] [id number] [place] [address]- 9164 Nov, [facility] [place] [facility] [address] [id number] [place] [address]- 1892 Nov, [facility] [place] [facility] [address] [id number] [place] [address]- 2219 Oct, [facility] [place] [facility] [address] [id number] [place] [address]- 7300 Oct, [facility] [place] [facility] [address] [id number] [place] [address]- 4907 Oct, [facility] [place] [facility] [address] [id number] [place] [address]- 1862 Oct, [facility] [place] [facility] [address] [id number] [place] [address] 2750 Oct, [facility] [address] [id number] [place] [address]- 9892 Oct, [facility] [address] [id number] [place] [address]- 9316 Oct, [facility] [address] [id number] [place] [address]- 7845 Oct, [facility] [address] [id number] [place] [address]- 6909 Oct, [facility] [address] [id number] [place] [address]- 5840 Oct, [facility] [address] [id number] [place] [address]- 2050 Oct, [facility] [address] [id number] [place] [address]- 6916 Oct, [facility] [address] [id number] [place] [address]- 1828 Oct, [facility] [address] [id number] [place] [address]- 6098 Sep, [facility] [address] [id number] [place] [address]- 6181 Sep, [facility] [address] [id number] [place] [address]- 2039 Sep, [facility] [address] [id number] [place] [address]- 2417 Sep, [facility] [place] [facility] [address] [id number] [place] [address]- 6151 Sep, [facility] [address] [id number] [place] [address]- 0326 Sep, [facility] [address] [id number] [place] [address]- 4804 Sep, [facility] [place] [facility] [address] [id number] [place] [address]- 3859 Sep, [facility] [place] [facility] [address] [id number] [place] [address]- 8906 Sep, [facility] [place] [facility] [address] [id number] [place] [address]- 4151 Sep, [facility] [place] [facility] [address] [id number] [place] [address]- 0663 Sep, [facility] [place] [facility] [address] [id number] [place] [address]- 9187 Sep, [facility] [place] [facility] [address] [id number] [place] [address]- 0933 Sep, [facility] [place] [facility] [address] [id number] [place] [address]- 9476 Sep, [facility] [place] [facility] [address] [id number] [place] [address]- 5839 Sep, [facility] [place] [facility] [address] [id number] [place] [address]- 6304 Sep, [facility] [place] [facility] [address] [id number] [place] [address]- 1132 Aug, [facility] [place] [facility] [address] [id number] [place] [address]- 2734 Aug, [facility] [place] [facility] [address] [id number] [place] [address]- 9312 Aug, [facility] [place] [facility] [address] [id number] [place] [address]- 0771 Aug, [facility] [place] [facility] [address] [id number] [place] [address]- 6877 Aug, [facility] [place] [facility] [address] [id number] [place] [address] Aug, [facility] [place] [facility] [address] [id number] [place] [address]- 3678 Aug, [facility] [place] [facility] [address] [id number] [place] [address]- 7341 Aug, [facility] [place] [facility] [address] [id number] [place] [address] Jul, [facility] [place] [facility] [address] [id number] [place] [address]- 1364 Jul, [facility] [place] [facility] [address] [id number] [place] [address]- 5850 Jul, [facility] [place] [facility] [address] [id number] [place] [address]- 2761 Jul, [facility] [place] [facility] [address] [id number] [place] [address]- 6767 Jul, [facility] [place] [facility] [address] [id number] [place] [address]- 1525 Jun, [facility] [place] [facility] [address] [id number] [place] [address]- 5381 Jun, [facility] [place] [facility] [address] [id number] [place] [address]- 2359 Jun, [facility] [place] [facility] [address] [id number] [place] [address]- 1771 Jun, [facility] [place] [facility] [address] [id number] [place] [address]- 7125 Jun, [facility] [place] [facility] [address] [id number] [place] [address]- 9026 May, [facility] [place] [facility] [address] [id number] [place] [address]- 5737 May, [facility] [place] [facility] [address] [id number] [place] [address]- 7196 Apr, [facility] [place] [facility] [address] [id number] [place] [address]- 5457 Apr, [facility] [place] [facility] [address] [id number] [place] [address]- 3730 Apr, [facility] [place] [facility] [address] [id number] [place] [address]- 2196 Apr, [facility] [place] [facility] [address] [id number] [place] [address]- 0217 Apr, [facility] [place] [facility] [address] [id number] [place] [address]- 7096 Apr, [facility] [place] [facility] [address] [id number] [place] [address]- 8786 Mar, [facility] [place] [facility] [address] [id number] [place] [address]- 9958 Mar, [facility] [place] [facility] [address] [id number] [place] [address]- 6199 Mar, [facility] [place] [facility] [address] [id number] [place] [address]- 1136 Mar, [facility] [place] [facility] [address] [id number] [place] [address]- 2593 Mar, [facility] [place] [facility] [address] [id number] [place] [address]- 7933 Mar, [facility] [place] [facility] [address] [id number] [place] [address]- 0848 Mar, [facility] [place] [facility] [address] [id number] [place] [address]- 0048 Mar, [facility] [place] [facility] [address] [id number] [place] [address]- 9629 Mar, [facility] [place] [facility] [address] [id number] [place] [address]- 1362 Mar, [facility] [place] [facility] [address] [id number] [place] [address]- 7793 Mar, [facility] [place] [facility] [address] [id number] [place] [address]- 0274 Mar, [facility] [place] [facility] [address] [id number] [place] [address]- 1451 Mar, [facility] [place] [facility] [address] [id number] [place] [address]- 9106 Mar, [facility] [place] [facility] [address] [id number] [place] [address]- 4226 Mar, [facility] [place] [facility] [address] [id number] [place] [address]- 3058 Mar, [facility] [place] [facility] [address] [id number] [place] [address]- 2396 February, [facility] [place] [facility] [address] [id number] [place] [address]- 9350 February, [facility] [place] [facility] [address] [id number] [place] [address]- 8231 February, [facility] [place] [facility] [address] [id number] [place] [address]- 1644 February, [facility] [place] [facility] [address] [id number] [place] [address]- 7100 February, [facility] [place] [facility] [address] [id number] [place] [address]- 1536 February, [facility] [place] [facility] [address] [id number] [place] [address]- 6229 February, [facility] [place] [facility] [address] [id number] [place] [address]- 2934 February, [facility] [place] [facility] [address] [id number] [place] [address]- 9662 Jan, [facility] [place] [facility] [address] [id number] [place] [address]- 1138 Jan, [facility] [place] [facility] [address] [id number] [place] [address]- 8328 Dec, [facility] [place] [facility] [address] [id number] [place] [address]- 6367 25 Dec, 2013 [facility] [place] [facility] [address] [id number] [place] [address]- 4224 Dec, [facility] [place] [facility] [address] [id number] [place] [address]- 6529 Dec, [facility] [place] [facility] [address] [id number] [place] [address]- 8114 Dec, [facility] [place] [facility] [address] [id number] [place] [address]- 8516 24 Dec, 2013 [facility] [place] [facility] [address] [id number] [place] [address]- 5638 Dec, [facility] [place] [facility] [address] [id number] [place] [address]- 4498 Dec, [facility] [place] [facility] [address] [id number] [place] [address]- 5165 17 Dec, 2013 [facility] [place] [facility] [address] [id number] [place] [address]- 3644 17 Dec, 2013 [facility] [place] [facility] [address] [id number] [place] [address]- 7023 14 Dec, 2013 [facility] [place] [facility] [address] [id number] [place] [address]- 9815 Dec, [facility] [place] [facility] [address] [id number] [place] [address]- 6936 Dec, [facility] [place] [facility] [address] [id number] [place] [address]- 0924 Dec, [facility] [place] [facility] [address] [id number] [place] [address]- 2438 Nov, [facility] [place] [facility] [address] [id number] [place] [address]- 6287 Nov, [facility] [place] [facility] [address] [id number] [place] [address]- 0638 Oct, [facility] [address] [id number] [place] [address]- 8053 Oct, [facility] [place] [facility] [address] [id number] [place] [address]- 3749 Oct, [facility] [place] [facility] [address] [id number] [place] [address]- 7444 Oct, [facility] [place] [facility] [address] [id number] [place] [address]- 9819 Oct, [facility] [place] [facility] [address] [id number] [place] [address]- 3970 Oct, [facility] [place] [facility] [address] [id number] [place] [address]- 1061 Oct, [facility] [place] [facility] [address] [id number] [place] [address]- 8608 Sep, [facility] [place] [facility] [address] [id number] [place] [address]- 4096 Sep, [facility] [place] [facility] [address] [id number] [place] [address]- 4869 Sep, [facility] [place] [facility] [address] [id number] [place] [address]- 2366 Sep, [facility] [place] [facility] [address] [id number] [place] [address]- 1291 Sep, [facility] [place] [facility] [address] [id number], [place] [address]- 9969 Sep, [facility] [place] [facility] [address] [id number] [place] [address]- 8280 Sep, [facility] [place] [facility] [address] [id number] [place] [address]- 2625 Sep, [facility] [place] [facility] [address] [id number] [place] [address]- 2049 24 Sep, 2013 [facility] [place] [facility] [address] [id number], [place] [address]- 6247 24 Sep, 2013 [facility] [address] [id number] [place] [address]- 3449 Sep, [facility] [place] [facility] [address] [id number] [place] [address]- 3746 Sep, [facility] [place] [facility] [address] [facility] [id number] [place] [address]- 0649 16 Sep, 2013 [facility] [place] [facility] [address] [id number] [place] [address]- 4443 16 Sep, 2013 [facility] [address] [id number] [place] [address]- 8693 Sep, [facility] [place] [facility] [address] [id number] [place] [address]- 0905 Sep, [facility] [address] [facility] [id number] [place] [address]- 3761 Sep, [facility] [place] [facility] [address] [id number] [place] [address]- 9005 Sep, [facility] [place] [facility] [address] [id number] [place] [address]- 3537 Sep, [facility] [place] [facility] [address] [facility] [id number] [place] [address]- 0874 Aug, [facility] [place] [facility] [address] [id number] [place] [address]- 0233 Aug, [facility] [place] [facility] [address] [id number] [place] [address]- 2402 Aug, [facility] [place] [facility] [address] [id number] [place] [address]- 1375 Aug, [facility] [place] [facility] [address] [id number] [place] [address]- 5361 Aug, [facility] [place] [facility] [address] [facility] [id number] [place] [address]- 8467 Aug, [facility] [place] [facility] [address] [id number] [place] [address]- 0605 Aug, [facility] [place] [facility] [address] [id number] [place] [address]- 0733 Aug, [facility] [place] [facility] [address] [id number] [place] [address]- 8631 Aug, [facility] [place] [facility] [address] [id number] [place] [address]- 3615 Aug, [facility] [place] [facility] [address] [id number] [place] [address]- 8447 Aug, [facility] [place] [facility] [address] [id number] [place] [address]- 8411 Aug, [facility] [place] [facility] [address] [id number] [place] [address]- 5715 Aug, [facility] [place] [facility] [address] [id number] [place] [address]- 4689 Aug, [facility] [place] [facility] [address] [id number] [place] [address]- 0002 Aug, [facility] [place] [facility] [address] [id number] [place] [address]- 9498 Aug, [facility] [place] [facility] [address] [id number] [place] [address]- 1611 Aug, [facility] [place] [facility] [address] [id number] [place] [address]- 0949 Jul, [facility] [place] [facility] [address] [id number] [place] [address]- 0850 Jul, [facility] [place] [facility] [address] [id number] [place] [address]- 6833 Jul, [facility] [place] [facility] [address] [id number] [place] [address]- 1714 Jul, [facility] [place] [facility] [address] [id number] [place] [address]- 6522 Jul, [facility] [place] [facility] [address] [id number] [place] [address]- 0904 18 Jul, 2013 [facility] [place] [facility] [address] [id number] [place] [address]- 2618 Jul, [facility] [place] [facility] [address] [id number] [place] [address]- 4137 27 Jun, 2012 [facility] [place] [facility] [address] [id number] [place] [address]- 3684 20 Jun, 2012 [facility] [place] [facility] [address] [id number] [place] [address]- 2259 17 Jun, 2012 [facility] [place] [facility] [address] [id number] [place] [address]- 2692 10 Jun, 2012 [facility] [place] [facility] [address] [id number] [place] [address]- 5274 06 Jun, 2012 [facility] [place] [facility] [address] [id number] [place] [address]- 3102 06 Jun, 2012 [facility] [place] [facility] [address] [id number] [place] [address]- 4498 05 Jun, 2012 [facility] [place] [facility] [address] [id number] [place] [address]- 7978 03 Jun, 2012 [facility] [place] [facility] [address] [id number] [place] [address]- 7846 May, [facility] [place] [facility] [address] [id number], [place] [address]- 5860 May, [facility] [place] [facility] [address] [id number] [place] [address]- 5006 15 May, 2013 [facility] [place] [facility] [address] [id number] [place] [address]- 5994 14 May, 2013 [facility] [place] [facility] [address] [id number] [place] [address]- 5660 May, [facility] [place] [facility] [address] [facility] [id number] [place] [address]- 3294 May, [facility] [address] [facility] [id number] [place] [address]- 7045 May, [facility] [address] [facility] [id number] [place] [address]- 1267 May, IMMUNIZATIONS No Known Immunizations SOCIAL HISTORY Never Assessed REASON FOR VISIT Controlled Med Refill PLAN OF CARE VITAL SIGNS MEDICATIONS Medication Instructions Dosage Frequency Start Date End Date Duration Status Hydrocodone-Acetaminophen 5-325 MG Orally every 4- 6 hrs as needed 1 tablet Nov, Active RESULTS No Results PROCEDURES No Known [...] History Left foot cellulitis, left 2nd toe amputation-[facility] 12/23 Hospitalization History Surgery Hospitalizations
--- OUTSIDE RECORDS SUMMARY | 2018-08-22 09:07 | XMS REPORT ---
Author Author LUDIVINA STEPHANIE [facility] Address [address] [place] [address] Care Team Providers Care Activity Leader Name Role Phone DEE DEE FLORENCEHANY Unavailable PROBLEMS Type Condition ICD9-CM Code TGO37-LV Code Onset Dates Condition Status SNOMED Code Problem Subclinical hypothyroidism E03.9 Active 68415754 Problem Hypertriglyceridemia E78.1 Active 922514066 Problem Type 2 diabetes mellitus with diabetic polyneuropathy E11.42 Active 325274014 Problem Type 2 diabetes mellitus with diabetic chronic 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 Active 253168861 Problem Other chronic pain G89.29 Active 93776485 Problem Type 2 diabetes mellitus with other skin complications E11.628 Active 51808432 Problem Pain in left foot M79.672 Active 73269104 Problem Irregular menstrual cycle N92.6 Active 67553758 Problem Pain in right foot M79.671 Active 64889868 Problem Tonsillolith J35.8 Active 6335074 Problem Chronic prescription opiate use Z79.891 Active 947853252 Problem Seasonal allergic rhinitis due to pollen J30.1 Active 74634819 Problem Asthma exacerbation, mild J45.901 Active 529488075 Problem Chronic kidney disease, stage III (moderate) N18.3 Active 135534899 Problem Chronic migraine G43.709 Active 81722903 Problem Moderate persistent asthma without complication J45.40 Active 877187374 Problem Intrinsic eczema L20.84 Active 04047429 Problem Severe episode of recurrent major depressive disorder, without psychotic features F33.2 Active 61205775 Problem Non-pressure chronic ulcer of right heel and midfoot limited to breakdown of skin L97.411 Active 744158186 Problem Ulcer of right heel L97.419 Active 349684367 Problem Obesity E66.9 Active 574919794 Problem Type 2 diabetes mellitus with foot ulcer E11.621 Active 75925730 Problem Essential hypertension I10 Active 87391289 Problem Anxiety disorder, unspecified F41.9 Active 839064733 Problem Type 2 diabetes mellitus with other specified complication E11.69 Active 259409245 Problem Status post amputation of toe of left foot Z89.422 Active 347183894 Problem DM neuro manif type II E11.49 Active 87290160 Problem History of amputation of hallux Z89.419 Active 946709115 ALLERGIES No Information ENCOUNTERS Encounter Location Date Diagnosis [facility] [place] [address] [address] Apr, [facility] [place] [address] [address]161- 8413 Mar, Moderate persistent asthma without complication J45.40 [place] [address] [address]- 3241 Mar, Moderate persistent asthma without complication J45.40 [facility] [place] [address] 7[address]- 9964 Mar, [facility] [place] [address] 11102- 7127 February, Chronic migraine G43.709 [facility] [place] [address] 25744- 4857 February, Chronic migraine G43.709 [facility] [place] [address] 07623- 7562 February, [facility] [place] [address] [place] [id number] [place] [address] 53893- 3417 February, [facility] [place] [id number] [place] [address] 20694- 2026 February, Type 2 diabetes mellitus with diabetic polyneuropathy E11.42 ; Moderate persistent asthma without complication J45.40 ; Type 2 diabetes mellitus with foot ulcer E11.621 ; Non-pressure chronic ulcer of right heel and midfoot limited to breakdown of skin L97.411 ; Chronic migraine G43.709 and BMI 60.0-69.9, adult Z68.44 [facility] [address] [place] [place] [id number] [place] [address] 99779 -3139 Jan, Asthma exacerbation, mild J45.901 ; Seasonal allergic rhinitis due to pollen J30.1 and BMI 60.0-69.9, adult Z68.44 [facility] [place] [address] 64035- 6894 Jan, [facility] [place] [address] 76424- 9872 Jan, Other chronic pain G89.29 [facility] [place] [address] 04557- 3866 Dec, Type 2 diabetes mellitus with diabetic polyneuropathy E11.42 [place] [address] 58149- 1363 Dec, Type 2 diabetes mellitus with diabetic polyneuropathy E11.42 [place] [address] 05690- 8342 15 Dec, 2017 [facility] [place] [address] 04503- 7793 Dec, [facility] [place] [address] 47179- 1392 Dec, Chronic kidney disease, stage III (moderate) N18.3 [facility] [id number] [place] [address] 72774 -8726 09 Dec, 2017 Nausea R11.0 and Diarrhea, unspecified type R19.7 [facility] [place] [address] [place], [place] [id number] [place] [address] 63627- 1993 Dec, Chronic kidney disease, stage III (moderate) N18.3 and Type 2 diabetes mellitus with diabetic polyneuropathy E11.42 [facility] [place] [address] 76719- 1618 Dec, [facility] [place] [address] [place] [id number] [place] [address] 48466- 4918 Nov, Ulcer of right heel L97.419 and Type 2 diabetes mellitus with diabetic polyneuropathy E11.42 [place] [address] [place] [address] [id number] Nov, Dental examination Z01.20 [place] [address] 12237- 3081 Nov, Open wound of right foot, initial encounter S91.301A [facility] [address] 73701 -7796 Nov, Open wound of right foot, initial encounter S91.301A ; Non- intractable vomiting with nausea, unspecified vomiting type R11.2 and BMI 60.0- 69.9, adult Z68.44 [place] [address] 57923- 3811 Nov, [place] [address] 00095- 2378 Nov, Other chronic pain G89.29 [place] [address] 92310- 9697 Oct, Cellulitis of right lower limb L03.115 [place] [address] 31855- 9994 Oct, [place] [address] 17055- 6882 Oct, [place] [address] 55561- 1353 Oct, Cat scratch W55.03XA ; Cellulitis of right lower limb L03.115 ; Acute nasopharyngitis J00 ; BMI 60.0-69.9, adult Z68.44 and Cough R05 [place] [address] 29841- 5511 Oct, Cat scratch W55.03XA ; Cutaneous abscess of right lower extremity L02.415 and Cellulitis of right lower limb L03.115 [place] [address] 83253- 8799 Oct, Type 2 diabetes mellitus with diabetic polyneuropathy E11.42 [place] [address] [place] [id number] [place] [address] 60260- 1401 Oct, Other chronic pain G89.29 [place] [address] [place] [id number] [place] [address] 22296- 6607 Aug, [place] [address] [place] [id number] [place] [address] 30754- 2908 Jul, Other chronic pain G89.29 [place] [address] [place] [id number] [place] [address] 58256- 5218 Jul, [place] [address] 15824- 2201 Jul, Chronic kidney disease, stage III (moderate) N18.[address] [address]- 1383 Jul, Type 2 diabetes mellitus with diabetic polyneuropathy E11.42 ; Essential hypertension I10 ; Irregular menstrual cycle N92.6 ; Hypertriglyceridemia E78.1 ; Anxiety disorder, unspecified F41.9 ; Severe episode of recurrent major depressive disorder, without psychotic features F33.2 ; Tonsillolith J35.8 ; Intrinsic eczema L20.84 ; Subclinical hypothyroidism E03.9 ; Viral pharyngitis J02.9 and Encounter for immunization Z23 [place] [id number] [place] [address] 16590- 2444 Jun, Essential hypertension I10 [place] [address] [place] [id number] [place] [address] 78848- 1947 08 Jun, 2017 [place] [address] [place] [id number] [place] [address] 95951- 9047 Jun, [place] [address] [place] [id number] [place] [address] 79608- 7593 May, Moderate persistent asthma without complication J45.40 [place] [address] [place] [id number] [place] [address] 28764- 1247 May, Pain in right foot M79.671 ; Pain in left foot M79.672 ; Other chronic pain G89.29 and Chronic prescription opiate use Z79.891 [facility] [place] [id number] [place] [address] 18294- 5387 May, [facility] [place] [id number] [place] [address] 53695- 0085 May, [facility] [place] [id number] [place] [address] 31565- 9159 Apr, [facility] [place] [id number] [place] [address] 98208- 3988 Apr, Chronic migraine G43.709 [facility] [place] [address] [place] [id number] [place] [address] 60298- 2527 Apr, Essential hypertension I10 ; Hypertriglyceridemia E78.1 and Chronic migraine G43.709 [facility] [place] [address] [place] [id number] [place] [address] 73900- 7085 Apr, [facility] [place] [id number] [place] [address] 46166- 5124 Apr, Sore throat J02.9 [facility] [place] [address] [place] [id number] [place] [address] 94060- 3831 Apr, [facility] [place] [id number] [place] [address] 69394- 9780 Mar, Strep pharyngitis J02.0 and Non-intractable vomiting with nausea, unspecified vomiting type R11.2 [facility] [place] [address] [id number] [place] [address] 13773- 1933 Mar, [facility] [place] [address] 25567- 3273 Mar, [facility] [place] [address] [id number] [place] [address] 43875- 2172 Mar, [facility] [place] [address] [place] [address]- 7776 Mar, Type 2 diabetes mellitus with diabetic polyneuropathy E11.42 ; Moderate persistent asthma without complication J45.40 ; Status post amputation of toe of left foot Z89.422 ; Acute seasonal allergic rhinitis, unspecified trigger J30.2 and Left shoulder pain, unspecified chronicity M25.512 [place] [address] [place] [id number] [place] [address] 18271- 0134 Mar, [place] [address] [place] [id number] [place] [address] 81609- 4521 February, Pre-op evaluation Z01.818 ; Type 2 diabetes mellitus with diabetic polyneuropathy E11.42 and Type 2 diabetes mellitus with foot ulcer E11.621 [place] [address] [place] [id number] [place] [address] 46233- 1555 February, [place] [address] [place] [id number] [place] [address] 72051- 9716 February, [place] [address] [place] [id number] [place] [address] 84149- 1630 February, Toe infection L08.9 and Type 2 diabetes mellitus with other specified complication E11.69 [place] [address] [place] [id number] [place] [address] 62731- 2404 February, [place] [address] [place] [id number] [place] [address] 36516- 4931 Jan, Type 2 diabetes mellitus with diabetic polyneuropathy E11.42 [place] [address] [place] [id number] [place] [address] 44912- 4325 Jan, [place] [address] [place] [id number] [place] [address] 04428- 3162 Jan, Right upper quadrant pain R10.11 and Intractable vomiting with nausea, unspecified vomiting type R11.2 [place] [address] [place] [id number] [place] [address] 92599- 2724 Jan, Hypertriglyceridemia E78.1 and Essential hypertension I10 [place] [address] [place] [id number] [place] [address] 22494- 3716 Jan, Essential hypertension I10 ; Type 2 diabetes mellitus with diabetic polyneuropathy E11.42 and Hypertriglyceridemia E78.1 [facility] [place] [address] [id number] [place] [address] 40322- 1580 16 Dec, 2016 Type 2 diabetes mellitus with diabetic polyneuropathy E11.42 [facility] [place] [address] 89722- 4302 Dec, Hypertriglyceridemia E78.1 ; Essential hypertension I10 ; Type 2 diabetes mellitus with diabetic polyneuropathy E11.42 ; Anxiety disorder , unspecified F41.9 and Moderate persistent asthma without complication J45.40 [facility] [place] [address] [place] [id number] [place] [address] 12016- 6572 Dec, Type 2 diabetes mellitus with diabetic polyneuropathy E11.42 [facility] [place] [address] [id number] Dec, [facility] [place] [address] [place] [id number] [place] [address] 85844- 6642 Nov, [facility] [place] [address] 47214- 1991 Nov, [facility] [place] [address] [place] [id number] [place] [address] 24259- 2806 Nov, [facility] [place] [address] [place] [id number] [place] [address] 36802- 8537 Nov, Toe infection L08.9 [facility] [place] [address] [place] [id number] [place] [address] 37203- 5289 Nov, [facility] [place] [address] [place] [id number] [place] [address] 12487- 1003 Oct, History of amputation of hallux Z89.419 [facility] [place] [address] [place] [id number] [place] [address] 94201- 3387 Oct, Type 2 diabetes mellitus with diabetic polyneuropathy E11.42 [facility] [place] [address] [address]- 0770 Oct, Type 2 diabetes mellitus with diabetic polyneuropathy E11.42 [facility] [place] [address] [address]- 5517 Oct, Acute osteomyelitis of left foot M86.172 ; Pre-op exam Z01.818 and Type 2 diabetes mellitus with diabetic polyneuropathy E11.42 [facility] [place] [address] [address]- 0189 13 Oct, 2016 Foot ulcer, left, with unspecified severity L97.529 ; Acute osteomyelitis of left foot M86.172 and Type 2 diabetes mellitus with diabetic polyneuropathy E11.42 [facility] [place] [address] [address]- 2424 Sep, [facility] [place] [address] [place] [id number] [place] [address] 53320- 6768 Sep, Intractable vomiting with nausea, unspecified vomiting type R11.2 and Right upper quadrant pain R10.11 [facility] [place] [address] [address]- 2539 Aug, [facility] [place] [address] [place] [address] 03792- 9448 Jul, [facility] [place] [address] [address]- 0972 Jul, Preop examination Z01.818 [facility] [place] [address] [address]- 9735 Jul, [facility] [place] [address] [place] [address] 32307- 9356 Jul, [facility] [place] [address] [place] [address] 65202- 1676 Jul, Chronic osteomyelitis of left foot M86.672 and Ulcer of left foot, with unspecified severity L97.529 [facility] [place] [address] [address]- 2856 Jul, Non-pressure chronic ulcer of other part of left foot with unspecified severity L97.529 [facility] [place] [address] [address]- 7812 Jul, [facility] [place] [address] [address]- 3758 Jul, [facility] [place] [id number] [place] [address] 76754- 1757 Jun, [facility] [place] [address] [id number] [place] [address] 22571- 1328 Jun, [facility] [place] [id number] [place] [address] 85605- 5085 Jun, [facility] [place] [id number] [place] [address] 41435- 5436 Jun, Right upper quadrant pain R10.11 [facility] [place] [address] [address]- 2920 20 Jun, 2016 [facility] [place] [address] [id number] [place] [address] 29184- 5690 19 Jun, 2016 Intractable vomiting with nausea, unspecified vomiting type R11.2 [facility] [place] [address] [address]- 6920 13 Jun, 2016 Right upper quadrant pain R10.11 ; Migraine with aura and with status migrainosus, not intractable G43.101 and Intractable vomiting with nausea, unspecified vomiting type R11.2 [facility] [place] [address] [address]- 9096 Jun, [facility] [place] [address] [place] [id number] [place] [address] 14154- 4856 06 Jun, 2016 Gastroenteritis K52.9 [facility] [place] [address] [place] [address] 56678- 1345 May, [facility] [place] [address] [id number] [place] [address] 13815- 6551 May, Hypertriglyceridemia E78.1 ; Essential hypertension I10 ; Type 2 diabetes mellitus with diabetic polyneuropathy E11.42 ; Moderate persistent asthma without complication J45.40 ; Type 2 diabetes mellitus with foot ulcer E11.621 ; Other chronic pain G89.29 ; Pain in right leg M79.604 ; Pain of left leg M79.605 ; Rash and nonspecific skin eruption R21 and Anxiety disorder, unspecified F41.9 [place] [address] 22781- 7921 May, Essential hypertension I10 ; Hypertriglyceridemia E78.1 ; Upper respiratory infection J06.9 ; Subclinical hypothyroidism E03.9 and Type 2 diabetes mellitus with diabetic polyneuropathy E11.42 [place] [address] 31260- 6001 Apr, Hypertriglyceridemia E78.1 ; Subclinical hypothyroidism E03.9 ; Essential hypertension I10 and Type 2 diabetes mellitus with diabetic polyneuropathy E11.42 [place] [address] 58910- 1614 Mar, [place] [address] 08481- 1727 Mar, Ulcer of right heel L97.419 [place] [address] [place] [id number] [place] [address] 46505- 5523 Mar, [place] [address] [place] [id number] [place] [address] 16150- 8331 Mar, [place] [address] 17927- 3833 February, [place] [address] 49519- 1663 February, Ulcer of right heel L97.419 and DM neuro manif type II E11.49 [place] [address] 75327- 2168 Jan, [facility] [place] [address] [address]- 8850 Jan, Ulcer of right heel L97.419 ; Type 2 diabetes mellitus with foot ulcer E11.621 and Non-pressure chronic ulcer of other part of left foot with unspecified severity L97.529 [facility] [place] [address] [place] [address] 27705- 1695 Jan, [facility] [place] [address] [place] [id number] [place] [address] 98007- 1420 Jan, [place] [address] [place] [id number] [place] [address] 23151- 8738 Jan, Infection of toenail L03.039 [place] [address] [place] [id number] [place] [address] 87979- 3521 Jan, Blister of toe of left foot, initial encounter S90.425A and Type 2 diabetes mellitus with diabetic polyneuropathy E11.42 [place] [address] [address]- 6025 Jan, [facility] [address] [place] [id number] [place] [address] 79825 -0118 Jan, Sore throat J02.9 and Strep pharyngitis J02.0 [place] [address] [place] [address] 54924- 7224 Dec, Type 2 diabetes mellitus with diabetic polyneuropathy E11.42 ; Upper respiratory infection J06.9 ; Cough R05 and Asthma exacerbation J45.901 [place] [address] [address]- 1187 Oct, [place] [address] [place] [id number] [place] [address] 72710- 1725 Oct, [facility] [place] [address] [id number] [place] [address] 35616- 5631 Oct, [facility] [place] [address] [place] [id number] [place] [address] 85205- 0588 Oct, [facility] [place] [address] [place] [id number] [place] [address] [phone]- [phone] Sep, [place] [id number] [place] [address] 47299- 2452 Aug, Anxiety disorder, unspecified F41.9 and Obesity E66.9 [place] [address] 92280- 1024 Aug, Moderate persistent asthma without complication J45.40 [place] [id number] [place] [address] 19529- 1573 Aug, Anxiety disorder, unspecified F41.9 [place] [id number] [place] [address] 86611- 3050 Aug, Encounter for immunization Z23 ; Chronic migraine G43.709 ; Hypertriglyceridemia E78.1 ; Type 2 diabetes mellitus with diabetic polyneuropathy E11.42 ; Moderate persistent asthma without complication J45.40 and Morbid obesity E66.01 [place] [id number] [place] [address] 26374- 9757 Jul, [place] [address] 75736- 0556 Jul, [place] [id number] [place] [address] 44238- 3198 Jul, [place] [place] [id number] [place] [address] 01001- 0237 Jul, Subclinical hypothyroidism E03.9 [place] [id number] [place] [address] 07639- 4564 Jun, Essential hypertension, benign 401.1 ; Diabetic ulcer of lower extremity 250.80 ; Asthma 493.90 ; Diabetes mellitus type II, uncontrolled 250.02 and Hyperlipidemia associated with type 2 diabetes mellitus 250.80 [place] [id number] [place] [address] 37929- 0241 Jun, [place] [id number] [address] 5[address] Jun, [facility] [place] [facility] [id number] [address] May, [facility] [place] [address] [address] Apr, [facility] [place] [id number] [place] [address] 1[address]49- 2844 Apr, Viral upper respiratory infection 465.9 and Asthma 493.90 [facility] [place] [id number] [place] [address]- 5301 Mar, Abnormal ankle brachial index 796.4 [facility] [place] [id number] [place] [address]- 5315 February, [facility] [place] [id number] [place] [address]- 2414 February, Essential hypertension, benign 401.1 [facility] [place] [id number] [address] February, Diabetic peripheral neuropathy 250.60 ; Ulcer of heel and midfoot 707.14 and Decreased pedal pulses 785.9 [facility] [place] [address] [address]225 February, [facility] [place] [address] [address] 4156 February, [facility] [place] [address] [address] Jan, [facility] [place] [address] [address] 8666 Jan, [facility] [place] [address] [address]61 Dec, [facility] [place] [address] [address] Dec, [facility] [place] [facility] [address] [id number] [place] [address] 7943 Nov, 2014 [facility] [place] [facility] [address] [id number] [place] [address]- 2486 Nov, 2014 [facility] [place] [facility] [address] [id number] [place] [address]- 3354 Nov, 2014 [facility] [place] [facility] [address] [id number] [place] [address]- 8453 Nov, 2014 [facility] [place] [facility] [address] [id number] [place] [address]- 8928 Nov, 2014 [facility] [place] [facility] [address] [id number] [place] [address]- 2233 Nov, 2014 [facility] [place] [facility] [address] [id number] [place] [address]- 8672 Nov, 2014 [facility] [place] [facility] [address] [id number] [place] [address]- 6723 Nov, 2014 [facility] [place] [facility] [address] [id number] [place] [address]- 3561 Nov, [facility] [place] [facility] [address] [facility] [id number] [place] [address]- 6450 Oct, [facility] [place] [facility] [address] [id number] [place] [address]- 5282 Oct, [facility] [place] [facility] [address] [id number] [address]- 8396 Oct, [facility] [place] [facility] [address] [id number] [place] [address]- 4962 Oct, [facility] [place] [facility] [address] [id number] [place] [address]- 7503 Oct, [facility] [place] [facility] [address] [id number] [place] [address]- 5805 Oct, [facility] [place] [facility] [address] [id number] [place] [address]- 2838 Oct, [facility] [address] [id number] [place] [address]- 4376 Oct, [facility] [place] [facility] [address] [id number] [place] [address]- 2126 Oct, [facility] [place] [facility] [address] [id number] [place] [address]- 3921 Oct, [facility] [place] [facility] [address] [id number] [place] [address]- 9131 Oct, [facility] [place] [facility] [address] [id number] [place] [address]- 2242 Oct, [facility] [place] [facility] [address] [id number] [place] [address]- 5404 Oct, [facility] [place] [facility] [address] [id number] [place] [address]- 5217 Sep, [facility] [place] [facility] [address] [id number] [place] [address]- 0837 30 Sep, 2014 [facility] [place] [facility] [address] [id number] [place] [address]- 0093 Sep, [facility] [place] [facility] [address] [id number] [place] [address]- 1621 Sep, [facility] [place] [facility] [address] [id number] [place] [address]- 3573 Sep, [facility] [place] [facility] [address] [id number] [place] [address]- 9745 Sep, [facility] [place] [facility] [address] [id number] [place] [address]- 0269 Sep, [facility] [place] [facility] [address] [id number] [place] [address]- 5348 Sep, [facility] [place] [facility] [address] [id number] [place] [address]- 3624 Sep, [facility] [place] [facility] [address] [id number] [place] [address]- 2923 Sep, [facility] [place] [facility] [address] [id number] [place] [address]- 3227 Sep, [facility] [place] [facility] [address] [id number] [place] Sep, [facility] [place] [facility] [address] [id number] [place] [address]- 2482 Sep, [facility] [place] [facility] [address] [id number] [place] [address]- 6135 Sep, [facility] [place] [facility] [address] [id number] [place] [address]- 2081 Sep, [facility] [place] [facility] [address] [id number] [place] [address]- 5224 Sep, [facility] [place] [facility] [address] [id number] [place] [address]- 1309 Aug, [facility] [place] [facility] [address] [id number] [place] [address]- 4983 Aug, [facility] [place] [facility] [address] [id number] [place] [address]- 6394 Aug, [facility] [place] [facility] [address] [id number] [place] [address]- 3297 Aug, [facility] [place] [facility] [address] [id number] [place] [address]- 8550 Aug, [facility] [place] [facility] [address] [id number] [place] [address]- 8714 Aug, [facility] [place] [facility] [address] [id number] [place] [address]- 1384 Aug, [facility] [place] [facility] [address] [id number] [place] [address]- 1237 Aug, [facility] [place] [facility] [address] [id number] [place] [address]- 8950 Jul, [facility] [place] [facility] [address] [id number] [place] [address]- 9776 31 Jul, 2014 [facility] [place] [facility] [address] [id number] [place] [address]- 5680 30 Jul, 2014 [facility] [place] [facility] [address] [id number] [place] [address]- 9586 Jul, [facility] [place] [facility] [address] [id number] [place] [address]- 2932 15 Jul, 2014 [facility] [place] [facility] [address] [id number] [place] [address]- 2377 Jun, [facility] [place] [facility] [address] [id number] [place] [address]- 2857 Jun, [facility] [place] [facility] [address] [id number] [place] [address]- 8262 Jun, [facility] [place] [facility] [address] [id number] [place] [address]- 9703 Jun, [facility] [place] [facility] [address] [id number] [place] [address]- 7607 Jun, [facility] [place] [facility] [address] [id number] [place] [address]- 4504 May, [facility] [place] [facility] [address] [id number] [place] [address]- 5192 May, [facility] [place] [facility] [address] [id number] [place] [address]- 0487 Apr, [facility] [place] [facility] [address] [id number] [place] [address]- 8592 Apr, [facility] [place] [facility] [address] [id number] [place] [address]- 8571 Apr, [facility] [place] [facility] [address] [id number] [place]50 Apr, [facility] [place] [facility] [address] [id number] [place] [address]- 6795 Apr, [facility] [place] [facility] [address] [id number] [place] [address]- 8566 Apr, [facility] [place] [facility] [address] [id number] [place] [address]- 0347 Mar, [facility] [place] [facility] [address] [id number] [place] [address]- 7586 Mar, [facility] [place] [facility] [address] [id number] [place] [address]- 1918 Mar, [facility] [place] [facility] [address] [id number] [place] [address]- 8685 Mar, [facility] [place] [facility] [address] [id number] [place] [address]- 2467 Mar, [facility] [place] [facility] [address] [id number] [place] [address]- 0213 Mar, [facility] [place] [facility] [address] [id number] [place] [address]- 2171 Mar, [facility] [place] [facility] [address] [id number] [place] [address]- 3505 Mar, [facility] [place] [facility] [address] [id number] [place] [address]- 3114 Mar, [facility] [place] [facility] [address] [id number] [place] [address]- 5417 Mar, [facility] [place] [facility] [address] [id number] [place] [address]- 2510 Mar, [facility] [place] [facility] [address] [id number] [place] [address]- 4388 Mar, [facility] [place] [facility] [address] [id number] [place] [address]- 9395 Mar, [facility] [place] [facility] [address] [id number] [place] [address]- 3993 Mar, [facility] [place] [facility] [address] [id number] [place] [address]- 3971 Mar, [facility] [place] [facility] [address] [id number] [place] [address]- 8122 Mar, [facility] [place] [facility] [address] [id number] [place] [address]- 5459 February, [facility] [place] [facility] [address] [id number] [place] [address]- 4344 February, [facility] [place] [facility] [address] [id number] [place] [address]- 3575 February, [facility] [place] [facility] [address] [id number] [place] [address]- 5732 February, [facility] [place] [facility] [address] [id number] [place] [address]- 5099 February, [facility] [place] [facility] [address] [id number] [place] [address]- 1244 February, [facility] [place] [facility] [address] [id number] [place] [address]- 1732 February, [facility] [place] [facility] [address] [id number] [place] [address]- 7135 February, [facility] [place] [facility] [address] [id number] [place] [address]- 6140 Jan, [facility] [place] [facility] [address] [id number] [place] [address]- 9587 Jan, [facility] [place] [facility] [address] [id number] [place] [address]- 3203 Dec, [facility] [place] [facility] [address] [id number] [place] [address]- 2450 Dec, [facility] [place] [facility] [address] [id number] [place] [address]- 6491 Dec, [facility] [place] [facility] [address] [id number] [place] [address]- 5570 Dec, [facility] [place] [facility] [address] [id number] [place] [address]- 7592 24 Dec, 2013 [facility] [place] [facility] [address] [id number] [place] 24 Dec, 2013 [facility] [place] [facility] [address] [id number] [place] [address]- 4715 19 Dec, 2013 [facility] [place] [facility] [address] [id number] [place] [address]- 7780 19 Dec, 2013 [facility] [place] [facility] [address] [id number] [place] [address]- 4381 17 Dec, 2013 [facility] [place] [facility] [address] [id number] [place] [address]- 6751 17 Dec, 2013 [facility] [place] [facility] [address] [id number] [place] [address]- 9398 14 Dec, 2013 [facility] [place] [facility] [address] [id number] [place] [address]- 3811 14 Dec, 2013 [facility] [place] [facility] [address] [id number] [place] [address]- 1799 Dec, [facility] [place] [facility] [address] [id number] [place] [address]- 3841 Dec, [facility] [place] [facility] [address] [id number] [place] [address]- 7088 Nov, [facility] [place] [facility] [address] [id number] [place] [address]- 2423 Nov, [facility] [place] [facility] [address] [id number] [place] [address]- 2733 Oct, [facility] [place] [facility] [address] [id number] [place] [address]- 8713 Oct, [facility] [place] [facility] [address] [id number] [place] [address]- 1518 Oct, [facility] [place] [facility] [address] [id number] [place] [address]- 7159 16 Oct, 2013 [facility] [place] [facility] [address] [id number] [place] [address]- 5265 Oct, [facility] [place] [facility] [address] [id number] [place] [address]- 1886 Oct, [facility] [place] [facility] [address] [id number] [place] [address]- 5988 Oct, [facility] [place] [facility] [address] [id number] [place] [address]- 8905 Sep, [facility] [place] [facility] [address] [id number] [place] [address]- 5089 Sep, [facility] [place] [facility] [address] [id number] [place] [address]- 9416 Sep, [facility] [place] [facility] [address] [id number] [place] [address]- 6960 Sep, [facility] [place] [facility] [address] [id number] [place] [address]- 3149 Sep, [facility] [place] [facility] [address] [id number] [place] [address]- 7585 Sep, [facility] [place] [facility] [address] [id number] [place] [address]- 3799 Sep, [facility] [place] [facility] [address] [id number] [place] [address]- 8462 Sep, [facility] [place] [facility] [address] [id number] [place] [address] 2548 Sep, [facility] [place] [facility] [address] [id number] [place] [address] 2546 Sep, [facility] [place] [facility] [address] [id number] [place] [address]- 2546 Sep, [facility] [place] [facility] [address] [id number] [place] [address]- 9073 Sep, [facility] [place] [facility] [address] [id number] [place] [address]- 1407 Sep, [facility] [place] [facility] [address] [id number] [place] [address]- 2628 Sep, [facility] [place] [facility] [address] [id number] [place] [address]- 1816 Sep, [facility] [place] [facility] [address] [id number] [place] [address]- 6927 Sep, [facility] [place] [facility] [address] [id number] [place] [address]- 0139 Sep, [facility] [place] [facility] [address] [id number] [place] [address]- 2322 Sep, [facility] [place] [facility] [address] [id number] [place] [address]- 5199 Sep, [facility] [place] [facility] [address] [id number] [place] [address]- 0354 Aug, [facility] [place] [facility] [address] [id number] [place] [address]- 4658 Aug, [facility] [place] [facility] [address] [id number] [place] [address]- 4978 Aug, [facility] [place] [facility] [address] [id number] [place] [address]- 6102 Aug, [facility] [place] [facility] [address] [id number] [place] [address]- 1674 Aug, [facility] [place] [facility] [address] [id number] [place] [address]- 2147 Aug, [facility] [place] [facility] [address] [id number] [place] [address]- 5765 Aug, [facility] [place] [facility] [address] [id number] [place] [address]- 6882 Aug, [facility] [place] [facility] [address] [id number] [place] [address]- 1981 Aug, [facility] [place] [facility] [address] [id number] [place] [address]- 0261 Aug, [facility] [place] [facility] [address] [id number] [place] [address]- 0751 Aug, [facility] [place] [facility] [address] [id number] [place] [address]- 7724 Aug, [facility] [place] [facility] [address] [id number] [place] [address]- 0921 Aug, [facility] [place] [facility] [address] [id number] [place] [address]- 5992 Aug, [facility] [place] [facility] [address] [id number] [place] [address]- 4144 Aug, [facility] [place] [facility] [address] [id number] [place] [address]- 3556 Aug, [facility] [place] [facility] [address] [id number] [place] [address]- 4324 Aug, [facility] [place] [facility] [address] [id number] [place] [address]- 9411 Jul, [facility] [place] [facility] [address] [facility] [id number] [place] [address]- 7318 Jul, [facility] [place] [facility] [address] [id number] [place] [address]- 7750 Jul, [facility] [place] [facility] [address] [id number] [place] [address]- 7700 Jul, [facility] [place] [facility] [address] [id number] [place] [address]- 5645 Jul, [facility] [place] [facility] [address] [facility] [id number] [place] [address]- 2334 Jul, [facility] [place] [facility] [address] [id number] [place] 5344 Jul, [facility] [place] [facility] [address] [id number] [place] [address]- 1469 27 Jun, 2012 [facility] [place] [facility] [address] [id number] [place] [address]- 3928 20 Jun, 2012 [facility] [place] [facility] [address] [id number] [place] [address]- 3577 17 Jun, 2012 [facility] [place] [facility] [address] [id number] [place] [address]- 3307 10 Jun, 2012 [facility] [place] [facility] [address] [id number] [place] [address]- 9738 06 Jun, 2012 [facility] [place] [facility] [address] [id number] [place] [address]- 9264 06 Jun, 2012 [facility] [place] [facility] [address] [id number] [place] [address]- 2561 05 Jun, 2012 [facility] [place] [facility] [address] [id number] [place] [address]- 2501 03 Jun, 2012 [facility] [place] [facility] [address] [id number] [place] [address]- 1884 May, [facility] [place] [facility] [address] [id number] [place] [address]- 8262 22 May, 2013 [facility] [place] [facility] [address] [id number] [place] [address]- 3767 15 May, 2013 [facility] [place] [facility] [address] [id number] [place] [address]- 8003 14 May, 2013 [facility] [place] [facility] [address] [id number] [place] [address]- 6942 May, [facility] [place] [facility] [address] [id number] [place] [address]- 8990 May, [facility] [place] [facility] [address] [id number] [place] [address]- 0128 09 May, 2013 [facility] [place] [facility] [address] [id number] [place] [address]- 8442 May, IMMUNIZATIONS No Known Immunizations SOCIAL HISTORY [...] History Left foot cellulitis, left 2nd toe amputation-[facility] 12/23 Hospitalization History Surgery Hospitalizations
--- OUTSIDE RECORDS SUMMARY | 2018-08-22 09:07 | XMS REPORT ---
Author Author STEPHANIE JERMAIN Organization [facility] Address [address] [place] [address] Care Team Providers Care Restaurant Crew Person Name Role Phone JERMAIN BROWN Unavailable PROBLEMS Type Condition ICD9-CM Code CAC59-OF Code Onset Dates Condition Status SNOMED Code Problem Subclinical hypothyroidism E03.9 Active 93730510 Problem Hypertriglyceridemia E78.1 Active 910285244 Problem Type 2 diabetes mellitus with diabetic polyneuropathy E11.42 Active 140296099 Problem Type 2 diabetes mellitus with diabetic chronic 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 Active 607659788 Problem Other chronic pain G89.29 Active 27305652 Problem Type 2 diabetes mellitus with other skin complications E11.628 Active 48579474 Problem Pain in left foot M79.672 Active 22189707 Problem Irregular menstrual cycle N92.6 Active 60247645 Problem Pain in right foot M79.671 Active 34786639 Problem Tonsillolith J35.8 Active 9579078 Problem Chronic prescription opiate use Z79.891 Active 877304580 Problem Seasonal allergic rhinitis due to pollen J30.1 Active 92617338 Problem Asthma exacerbation, mild J45.901 Active 395194991 Problem Chronic kidney disease, stage III (moderate) N18.3 Active 587932629 Problem Chronic migraine G43.709 Active 86402341 Problem Moderate persistent asthma without complication J45.40 Active 601228789 Problem Intrinsic eczema L20.84 Active 25990097 Problem Severe episode of recurrent major depressive disorder, without psychotic features F33.2 Active 45301454 Problem Non-pressure chronic ulcer of right heel and midfoot limited to breakdown of skin L97.411 Active 870143872 Problem Ulcer of right heel L97.419 Active 370101176 Problem Obesity E66.9 Active 661053034 Problem Type 2 diabetes mellitus with foot ulcer E11.621 Active 59525447 Problem Essential hypertension I10 Active 66385808 Problem Anxiety disorder, unspecified F41.9 Active 914978866 Problem Type 2 diabetes mellitus with other specified complication E11.69 Active 576846103 Problem Status post amputation of toe of left foot Z89.422 Active 583900800 Problem DM neuro manif type II E11.49 Active 27535059 Problem History of amputation of hallux Z89.419 Active 649894513 ALLERGIES No Information ENCOUNTERS Encounter Location Date Diagnosis [facility] [id number] [place] [address] 59566- 6012 18 Apr, 2018 [facility] [address] 29437- 1058 12 Mar, 2018 Moderate persistent asthma without complication J45.40 [facility] [address] 36512- 9782 Mar, Moderate persistent asthma without complication J45.40 [facility] [id number] [place] [address] 41888- 7934 Mar, [facility] [address] 35275- 3494 February, Chronic migraine G43.709 [facility] [id number] [place] [address] 61694- 1221 February, Chronic migraine G43.709 [facility] [id number] [place] [address] 48549- 5579 February, [facility] [id number] [place] [address] 61350- 5602 February, [facility] [id number] [place] [address] 65534- 5742 February, Type 2 diabetes mellitus with diabetic polyneuropathy E11.42 ; Moderate persistent asthma without complication J45.40 ; Type 2 diabetes mellitus with foot ulcer E11.621 ; Non-pressure chronic ulcer of right heel and midfoot limited to breakdown of skin L97.411 ; Chronic migraine G43.709 and BMI 60.0-69.9, adult Z68.44 [facility] [id number] [place] [address] 43423 -8621 Jan, Asthma exacerbation, mild J45.901 ; Seasonal allergic rhinitis due to pollen J30.1 and BMI 60.0-69.9, adult Z68.44 [place] [address] 07457- 6114 Jan, [place] [id number] [place] [address] 51399- 4874 Jan, Other chronic pain G89.29 [place] [address] 09578- 1864 Dec, Type 2 diabetes mellitus with diabetic polyneuropathy E11.[address] 62403- 2178 Dec, Type 2 diabetes mellitus with diabetic polyneuropathy E11.42 [place] [address] 34310- 9721 15 Dec, [address] 38169- 5783 Dec, [place] [id number] [place] [address] 47414- 1837 Dec, Chronic kidney disease, stage III (moderate) N18.3 [facility] [id number] [place] [address] 92465 -2272 09 Dec, 2017 Nausea R11.0 and Diarrhea, unspecified type R19.7 [id number] [place] [address] 68051- 5698 Dec, Chronic kidney disease, stage III (moderate) N18.3 and Type 2 diabetes mellitus with diabetic polyneuropathy E11.42 [facility] [address] [place] [address] 13042- 6106 Dec, [id number] [place] [address] 77130- 8120 Nov, Ulcer of right heel L97.419 and Type 2 diabetes mellitus with diabetic polyneuropathy E11.42 [facility] [id number] [place] [address] [id number] Nov, Dental examination Z01.20 [place] [address] 61333- 0086 Nov, Open wound of right foot, initial encounter S91.301A [facility] [address] 12503 -4131 Nov, Open wound of right foot, initial encounter S91.301A ; Non- intractable vomiting with nausea, unspecified vomiting type R11.2 and BMI 60.0- 69.9, adult Z68.44 [place] [address] 41324- 3400 Nov, [place] [address] 80281- 9054 Nov, Other chronic pain G89.29 [place] [address] 66171- 1061 Oct, Cellulitis of right lower limb L03.115 [place] [address] 85837- 6475 Oct, [place] [address] 79826- 5520 Oct, [place] [address] 98529- 6670 Oct, Cat scratch W55.03XA ; Cellulitis of right lower limb L03.115 ; Acute nasopharyngitis J00 ; BMI 60.0-69.9, adult Z68.44 and Cough R05 [place] [address] 06568- 4941 Oct, Cat scratch W55.03XA ; Cutaneous abscess of right lower extremity L02.415 and Cellulitis of right lower limb L03.115 [place] [address] 92400- 6705 Oct, Type 2 diabetes mellitus with diabetic polyneuropathy E11.42 [place] [id number] [place] [address] 14474- 8885 Oct, Other chronic pain G89.29 [place] [id number] [place] [address] 43363- 3397 Aug, [place] [address] 26938- 8077 Jul, Other chronic pain G89.29 [place] [address] 61188- 9507 Jul, [place] [address] 62307- 9231 Jul, Chronic kidney disease, stage III (moderate) N18.[address] 97672- 9977 Jul, Type 2 diabetes mellitus with diabetic polyneuropathy E11.42 ; Essential hypertension I10 ; Irregular menstrual cycle N92.6 ; Hypertriglyceridemia E78.1 ; Anxiety disorder, unspecified F41.9 ; Severe episode of recurrent major depressive disorder, without psychotic features F33.2 ; Tonsillolith J35.8 ; Intrinsic eczema L20.84 ; Subclinical hypothyroidism E03.9 ; Viral pharyngitis J02.9 and Encounter for immunization Z23 [place] [id number] [place] [address] 69260- 2248 Jun, Essential hypertension I10 [place] [id number] [place] [address] 63477- 5347 Jun, [place] [id number] [place] [address] 99990- 4371 Jun, [place] [id number] [place] [address] 06763- 8969 May, Moderate persistent asthma without complication J45.40 [place] [id number] [place] [address] 33316- 0847 May, Pain in right foot M79.671 ; Pain in left foot M79.672 ; Other chronic pain G89.29 and Chronic prescription opiate use Z79.891 [facility] [id number] [place] [address] 04539- 9330 May, [facility] [id number] [place] [address] 52199- 8422 May, [facility] [id number] [place] [address] 24808- 3445 Apr, [facility] [id number] [place] [address] 29197- 2884 Apr, Chronic migraine G43.709 [facility] [id number] [place] [address] 11629- 0346 Apr, Essential hypertension I10 ; Hypertriglyceridemia E78.1 and Chronic migraine G43.709 [facility] [id number] [place] [address] 44650- 9559 Apr, [facility] [id number] [place] [address] 68124- 9785 Apr, Sore throat J02.9 [facility] [id number] [place] [address] 26487- 9319 Apr, [facility] [id number] [place] [address] 44778- 3607 Mar, Strep pharyngitis J02.0 and Non-intractable vomiting with nausea, unspecified vomiting type R11.2 [facility] [id number] [place] [address] 92883- 5249 Mar, [facility] [id number] [place] [address] 26676- 2073 Mar, [facility] [id number] [place] [address] 77980- 1692 Mar, [facility] [id number] [place] [address] 78471- 2663 Mar, Type 2 diabetes mellitus with diabetic polyneuropathy E11.42 ; Moderate persistent asthma without complication J45.40 ; Status post amputation of toe of left foot Z89.422 ; Acute seasonal allergic rhinitis, unspecified trigger J30.2 and Left shoulder pain, unspecified chronicity M25.512 [place] [id number] [place] [address] 12036- 2181 Mar, [place] [id number] [place] [address] 81655- 0480 February, Pre-op evaluation Z01.818 ; Type 2 diabetes mellitus with diabetic polyneuropathy E11.42 and Type 2 diabetes mellitus with foot ulcer E11.621 [place] [id number] [place] [address] 44000- 4691 February, [place] [id number] [place] [address] 48610- 0737 February, [place] [id number] [place] [address] 14159- 6494 February, Toe infection L08.9 and Type 2 diabetes mellitus with other specified complication E11.69 [place] [id number] [place] [address] 34660- 6813 February, [place] [id number] [place] [address] 62562- 3815 Jan, Type 2 diabetes mellitus with diabetic polyneuropathy E11.42 [place] [id number] [place] [address] 36043- 7971 Jan, [place] [id number] [place] [address] 57224- 8639 Jan, Right upper quadrant pain R10.11 and Intractable vomiting with nausea, unspecified vomiting type R11.2 [place] [id number] [place] [address] 24105- 2626 Jan, Hypertriglyceridemia E78.1 and Essential hypertension I10 [place] [id number] [place] [address] 77655- 3237 Jan, Essential hypertension I10 ; Type 2 diabetes mellitus with diabetic polyneuropathy E11.42 and Hypertriglyceridemia E78.1 [facility] [id number] [place] [address] 74261- 9582 16 Dec, 2016 Type 2 diabetes mellitus with diabetic polyneuropathy E11.42 [facility] [address] 86517- 7474 15 Dec, 2016 Hypertriglyceridemia E78.1 ; Essential hypertension I10 ; Type 2 diabetes mellitus with diabetic polyneuropathy E11.42 ; Anxiety disorder , unspecified F41.9 and Moderate persistent asthma without complication J45.40 [facility] [address] 81854- 8296 Dec, Type 2 diabetes mellitus with diabetic polyneuropathy E11.42 [facility] [address] [id number] Dec, [facility] [address] 39529- 3683 Nov, [facility] [address] 73891- 1561 Nov, [facility] [id number] [place] [address] 94554- 2788 Nov, [facility] [address] 59359- 4105 Nov, Toe infection L08.9 [facility] [address] 72135- 8516 Nov, [facility] [address] 17487- 8161 Oct, History of amputation of hallux Z89.419 [facility] [address] 86375- 0345 Oct, Type 2 diabetes mellitus with diabetic polyneuropathy E11.42 [facility] [address] [address]- 4647 Oct, Type 2 diabetes mellitus with diabetic polyneuropathy E11.42 [facility] [address] [address] 1974 Oct, Acute osteomyelitis of left foot M86.172 ; Pre-op exam Z01.818 and Type 2 diabetes mellitus with diabetic polyneuropathy E11.42 [facility] [address] [address]- 0380 Oct, Foot ulcer, left, with unspecified severity L97.529 ; Acute osteomyelitis of left foot M86.172 and Type 2 diabetes mellitus with diabetic polyneuropathy E11.42 [facility] [address] [address]- 5463 Sep, [facility] [id number] [place] [address] 31930- 1797 Sep, Intractable vomiting with nausea, unspecified vomiting type R11.2 and Right upper quadrant pain R10.11 [facility] [address] [address]- 2336 Aug, [facility] [id number] [address]- 4946 Jul, [facility] [address] [address]- 1597 Jul, Preop examination Z01.818 [facility] [address] [address]- 4181 Jul, [facility] [id number] [place] [address] 70711- 5063 Jul, [facility] [address] [address]- 0990 Jul, Chronic osteomyelitis of left foot M86.672 and Ulcer of left foot, with unspecified severity L97.529 [facility] [id number] [address]- 6114 Jul, Non-pressure chronic ulcer of other part of left foot with unspecified severity L97.529 [facility] [id number] [place] [address] 00344- 3476 Jul, [facility] [address] [address]- 9466 Jul, [facility] [id number] [place] [address] 20894- 0922 Jun, [facility] [id number] [place] [address] 42786- 3612 Jun, [facility] [id number] [place] [address] 61257- 6625 Jun, [facility] [id number] [place] [address] 44843- 6098 Jun, Right upper quadrant pain R10.11 [facility] [address] [address]- 5562 20 Jun, 2016 [facility] [id number] [place] [address] 34502- 9221 19 Jun, 2016 Intractable vomiting with nausea, unspecified vomiting type R11.2 [facility] [address] [address]- 0229 13 Jun, 2016 Right upper quadrant pain R10.11 ; Migraine with aura and with status migrainosus, not intractable G43.101 and Intractable vomiting with nausea, unspecified vomiting type R11.2 [facility] [address] [address]- 3798 12 Jun, 2016 [facility] [id number] [place] [address] 57374- 8809 06 Jun, 2016 Gastroenteritis K52.9 [facility] [address] [address]- 3688 May, [facility] [id number] [place] [address] 26993- 4995 May, Hypertriglyceridemia E78.1 ; Essential hypertension I10 ; Type 2 diabetes mellitus with diabetic polyneuropathy E11.42 ; Moderate persistent asthma without complication J45.40 ; Type 2 diabetes mellitus with foot ulcer E11.621 ; Other chronic pain G89.29 ; Pain in right leg M79.604 ; Pain of left leg M79.605 ; Rash and nonspecific skin eruption R21 and Anxiety disorder, unspecified F41.9 [place] [address] 74406- 6764 May, Essential hypertension I10 ; Hypertriglyceridemia E78.1 ; Upper respiratory infection J06.9 ; Subclinical hypothyroidism E03.9 and Type 2 diabetes mellitus with diabetic polyneuropathy E11.42 [place] [id number] [place] [address] 43045- 5028 Apr, Hypertriglyceridemia E78.1 ; Subclinical hypothyroidism E03.9 ; Essential hypertension I10 and Type 2 diabetes mellitus with diabetic polyneuropathy E11.42 [place] [id number] [place] [address] 35189- 9982 Mar, [place] [address] 13458- 4705 Mar, Ulcer of right heel L97.419 [place] [id number] [place] [address] 07682- 9228 Mar, [place] [id number] [place] [address] 28645- 8025 Mar, [place] [id number] [place] [address] 99905- 0037 February, [place] [address] 90901- 4487 February, Ulcer of right heel L97.419 and DM neuro manif type II E11.49 [place] [id number] [place] [address] 85036- 7005 Jan, [facility] [address] [place] [address] 56976- 8191 Jan, Ulcer of right heel L97.419 ; Type 2 diabetes mellitus with foot ulcer E11.621 and Non-pressure chronic ulcer of other part of left foot with unspecified severity L97.529 [facility] [id number] [place] [address] 16071- 5066 Jan, [facility] [id number] [place] [address] 94104- 3010 Jan, [place] [id number] [place] [address] 56835- 1732 Jan, Infection of toenail L03.039 [place] [id number] [place] [address] 51673- 6718 Jan, Blister of toe of left foot, initial encounter S90.425A and Type 2 diabetes mellitus with diabetic polyneuropathy E11.42 [place] [id number] [place] [address] 36420- 0066 Jan, [facility] [id number] [place] [address] 12257 -3321 Jan, Sore throat J02.9 and Strep pharyngitis J02.0 [place] [id number] [place] [address] 42846- 7447 Dec, Type 2 diabetes mellitus with diabetic polyneuropathy E11.42 ; Upper respiratory infection J06.9 ; Cough R05 and Asthma exacerbation J45.901 [place] [id number] [place] [address] 98160- 7504 Oct, [place] [id number] [place] [address] 18723- 7959 Oct, [facility] [id number] [place] [address] 14762- 8867 Oct, [place] [id number] [place] [address] 00724- 1580 Oct, [facility] [id number] [place] [address] 91235- 1396 Sep, [facility] [id number] [place] [address] 19397- 9834 Aug, Anxiety disorder, unspecified F41.9 and Obesity E66.9 [place] [address] 61141- 2919 Aug, Moderate persistent asthma without complication J45.40 [facility] [id number] [place] [address] 96180- 7495 Aug, Anxiety disorder, unspecified F41.9 [place] [id number] [place] [address] 64298- 4999 Aug, Chronic migraine G43.709 ; Encounter for immunization Z23 ; Hypertriglyceridemia E78.1 ; Type 2 diabetes mellitus with diabetic polyneuropathy E11.42 ; Moderate persistent asthma without complication J45.40 and Morbid obesity E66.01 [place] [id number] [place] [address] 39650- 7090 Jul, [place] [address] 05060- 3962 Jul, [place] [id number] [place] [address] 07532- 8779 Jul, [place] [id number] [place] [address] 46181- 0435 Jul, Subclinical hypothyroidism E03.9 [place] [id number] [place] [address] 99500- 6569 Jun, Essential hypertension, benign 401.1 ; Diabetic ulcer of lower extremity 250.80 ; Asthma 493.90 ; Diabetes mellitus type II, uncontrolled 250.02 and Hyperlipidemia associated with type 2 diabetes mellitus 250.80 [facility] [id number] [place] [address] 12291- 9321 Jun, [facility] [address] [address]- 2996 Jun, [facility] [id number] [place] [address] 50369- 6492 May, [facility] [id number] [place] [address] 77816- 6781 Apr, [facility] [id number] [place] [address] 00510- 3048 Apr, Viral upper respiratory infection 465.9 and Asthma 493.90 [facility] [id number] [place] [address] 00349- 1188 Mar, Abnormal ankle brachial index 796.4 [facility] [id number] [place] [address] 30060- 6703 February, [facility] [id number] [place] [address] 95458- 2791 February, Essential hypertension, benign 401.1 [facility] [id number] [place] [address] 90177- 9900 February, Diabetic peripheral neuropathy 250.60 ; Ulcer of heel and midfoot 707.14 and Decreased pedal pulses 785.9 [facility] [address] [address]- 7986 February, [facility] [address] [place] [address] 84940- 7143 February, [facility] [address] [address]- 1423 Jan, [facility] [id number] [place] [address] 43849- 0613 Jan, [facility] [id number] [place] [address] 07002- 9188 Dec, [facility] [address] [address]- 9780 Dec, [facility] [place] [facility] [address] [id number] [place] [address]- 7149 Nov, 2014 [facility] [place] [facility] [address] [id number] [place] [address]- 6739 Nov, 2014 [facility] [place] [facility] [address] [id number] [place] [address]- 2546 Nov, 2014 [facility] [place] [facility] [address] [id number] [place] [address]- 3479 Nov, 2014 [facility] [place] [facility] [address] [id number] [place] [address]- 7128 18 Nov, 2014 [facility] [place] [facility] [address] [id number] [place] [address]- 7496 Nov, 2014 [facility] [place] [facility] [address] [facility] [id number] [place] [address]- 6059 Nov, 2014 [facility] [place] [facility] [address] [facility] [id number] [place] [address] Nov, 2014 [facility] [place] [facility] [address] [facility] [id number] [place] [address] Nov, [facility] [place] [facility] [address] [facility] [id number] [address] Oct, [facility] [place] [facility] [address] [facility] [id number] [place] [address] Oct, [facility] [place] [facility] [address] [id number] [place] [address] Oct, [facility] [place] [facility] [address] [id number] [place] [address] Oct, [facility] [place] [facility] [address] [id number] [place] [address] Oct, [facility] [place] [facility] [address] [facility] [id number] [place] [address] Oct, [facility] [place] [facility] [address] [id number] [place] [address] Oct, [facility] [address] [id number] [place] [address] Oct, [facility] [place] [facility] [address] [id number] [place] [address] Oct, [facility] [address] [id number] [place] [address] Oct, [facility] [place] [facility] [address] [id number] [place] [address] Oct, [facility] [address] [id number] [place] [address] Oct, [facility] [address] [id number] [place] [address] Oct, [facility] [address] [id number] [place] [address] Sep, [facility] [place] [facility] [address] [id number] [place] [address] Sep, [facility] [address] [id number] [place] [address] Sep, [facility] [place] [facility] [address] [facility] [id number] [place] [address] 5961 Sep, [facility] [address] [id number] [place] [address] Sep, [facility] [place] [facility] [address] [id number] [place] [address] Sep, [facility] [place] [facility] [address] [id number] [place] [address] Sep, [facility] [place] [facility] [address] [id number] [place] [address]761 Sep, [facility] [place] [facility] [address] [id number] [place] [address] 39[address] Sep, [facility] [place] [facility] [address] [id number] [place] [address] 9238 Sep, [facility] [place] [facility] [address] [id number] [place] [address]296 Sep, [facility] [place] [facility] [address] [id number] [place] [address]- 0681 Sep, [facility] [place] [facility] [address] [id number] [place] [address]- 1787 Sep, [facility] [place] [facility] [address] [id number] [place] [address]- [address]269 Sep, [facility] [place] [facility] [address] [id number] [place] [address]- 0825 Sep, [facility] [place] [facility] [address] [id number] [place] [address]- 9026 Sep, [facility] [place] [facility] [address] [id number] [place] [address] 72[address] Aug, [facility] [place] [facility] [address] [id number] [place] [address]- 8074 Aug, [facility] [place] [facility] [address] [id number] [place] [address]- 7990 Aug, [facility] [place] [facility] [address] [id number] [place] [address]- 8088 Aug, [facility] [place] [facility] [address] [id number] [place] [address]- 8629 Aug, [facility] [place] [facility] [address] [id number] [place] [address]- 9233 Aug, [facility] [place] [facility] [address] [id number] [place] [address] 9830 Aug, [facility] [place] [facility] [address] [id number] [place] [address]- 1634 Aug, [facility] [place] [facility] [address] [id number] [place] [address]- 9574 Jul, [facility] [place] [facility] [address] [id number] [place] [address] 8[address] Jul, [facility] [place] [facility] [address] [id number] [place] [address]- 2015 30 Jul, 2014 [facility] [place] [facility] [address] [id number] [place] [address]377 Jul, [facility] [place] [facility] [address] [id number] [place] [address] 5990 Jul, [facility] [place] [facility] [address] [id number] [place] [address] 8594 Jun, [facility] [place] [facility] [address] [id number] [place] [address]- 4024 Jun, [facility] [place] [facility] [address] [id number] [place] [address]- 6640 Jun, [facility] [place] [facility] [address] [id number] [place] [address]- 0483 Jun, [facility] [place] [facility] [address] [id number] [place] [address]- 1637 Jun, [facility] [place] [facility] [address] [id number] [place] [address]- 0063 May, [facility] [place] [facility] [address] [id number] [place] [address]- 7222 May, [facility] [place] [facility] [address] [id number] [address] Apr, [facility] [place] [facility] [address] [id number] [place] [address] 4369 Apr, [facility] [place] [facility] [address] [id number] [place] [address] Apr, [facility] [place] [facility] [address] [id number] [place] [address] Apr, [facility] [place] [facility] [address] [id number] [place] [address]- 5375 Apr, [facility] [place] [facility] [address] [id number] [place] [address]- 4059 Apr, [facility] [place] [facility] [address] [id number] [place] [address]- 4387 Mar, [facility] [place] [facility] [address] [id number] [place] [address]- 3528 Mar, [facility] [place] [facility] [address] [id number] [place] [address] 1954 Mar, [facility] [place] [facility] [address] [id number] [place] [address]- 2176 Mar, [facility] [place] [facility] [address] [id number] [place] [address]- 5184 Mar, [facility] [place] [facility] [address] [id number] [place] [address]- 269[address] Mar, [facility] [place] [facility] [address] [id number] [place] [address]- 6055 Mar, [facility] [place] [facility] [address] [id number] [place] [address]- 0154 Mar, [facility] [place] [facility] [address] [id number] [place] [address] 1979 Mar, [facility] [place] [facility] [address] [id number] [place] [address]- 3538 Mar, [facility] [place] [facility] [address] [id number] [place] [address]- 8807 Mar, [facility] [place] [facility] [address] [id number] [place] [address]- 6519 Mar, [facility] [place] [facility] [address] [id number] [place] [address]- 6925 Mar, [facility] [place] [facility] [address] [id number] [place] [address]- 7298 Mar, [facility] [place] [facility] [address] [id number] [place] [address]- 4357 Mar, [facility] [place] [facility] [address] [id number] [place] [address]- 1859 Mar, [facility] [place] [facility] [address] [id number] [place] [address] February, [facility] [place] [facility] [address] [id number] [place] [address] 8997 February, [facility] [place] [facility] [address] [id number] [place] [address] 1570 February, [facility] [place] [facility] [address] [id number] [place] [address]- 2499 February, [facility] [place] [facility] [address] [id number] [place] [address]- 8908 February, [facility] [place] [facility] [address] [id number] [place] [address]- 3574 February, [facility] [place] [facility] [address] [id number] [place] [address]- 7169 February, [facility] [place] [facility] [address] [id number] [place] [address]- 2969 February, [facility] [place] [facility] [address] [id number] [place] [address]- 7582 Jan, [facility] [place] [facility] [address] [id number] [place] [address]- 7935 Jan, [facility] [place] [facility] [address] [id number] [place] [address]- 2058 Dec, [facility] [place] [facility] [address] [id number] [place] [address]- 0082 Dec, [facility] [place] [facility] [address] [id number] [place] [address]- 3446 Dec, [facility] [place] [facility] [address] [id number] [place] [address]- 2546 Dec, [facility] [place] [facility] [address] [id number] [place] [address]- 1092 24 Dec, 2013 [facility] [place] [facility] [address] [id number] [place] [address]- 8339 24 Dec, 2013 [facility] [place] [facility] [address] [id number] [place] [address]- 6600 19 Dec, 2013 [facility] [place] [facility] [address] [id number] [place] [address]- 7146 19 Dec, 2013 [facility] [place] [facility] [address] [id number] [place] [address]- 7683 17 Dec, 2013 [facility] [place] [facility] [address] [id number] [place] [address]- [address] 17 Dec, 2013 [facility] [place] [facility] [address] [id number] [place] [address]- 9387 14 Dec, 2013 [facility] [place] [facility] [address] [id number] [place] [address]- 8542 14 Dec, 2013 [facility] [place] [facility] [address] [id number] [place] [address]- 5083 Dec, [facility] [place] [facility] [address] [id number] [place] [address]- 1204 Dec, [facility] [place] [facility] [address] [id number] [place] [address]- 1982 Nov, [facility] [place] [facility] [address] [id number] [place] [address]- 1624 Nov, [facility] [place] [facility] [address] [id number] [place] [address]- 4463 Oct, [facility] [place] [facility] [address] [id number] [place] [address] Oct, [facility] [place] [facility] [address] [id number] [place] [address]- 3551 Oct, [facility] [place] [facility] [address] [id number] [place] [address]- 1821 16 Oct, 2013 [facility] [address] [id number] [place] [address]- 2177 Oct, [facility] [address] [id number] [place] [address]- 4546 Oct, [facility] [address] [id number] [place] [address]- 9602 Oct, [facility] [address] [id number] [place] [address]- 2937 Sep, [facility] [address] [id number] [place] [address]- 7680 Sep, [facility] [address] [id number] [place] [address]- 6903 Sep, [facility] [address] [id number] [place] [address]- 0205 Sep, [facility] [address] [id number] [place] [address]- 1428 Sep, [facility] [address] [id number] [place] [address]- 7822 Sep, [facility] [address] [id number] [place] [address]- 2416 Sep, [facility] [place] [facility] [address] [id number] [place] [address]- 6552 Sep, [facility] [address] [id number] [place] [address]- 2545 Sep, [facility] [place] [facility] [address] [id number] [place] [address]- 1079 Sep, [facility] [place] [facility] [address] [id number] [place] [address] Sep, [facility] [place] [facility] [address] [id number] [place] [address]- 9010 Sep, [facility] [address] [id number] [place] [address]- 5776 Sep, [facility] [place] [facility] [address] [id number] [place] [address]- 0653 Sep, [facility] [place] [facility] [address] [id number] [place] [address]- 8571 Sep, [facility] [place] [facility] [address] [id number] [place] [address]- 3370 Sep, [facility] [place] [facility] [address] [id number] [place] [address]- 4941 Sep, [facility] [place] [facility] [address] [id number] [place] [address]- 2383 Sep, [facility] [place] [facility] [address] [id number] [place] [address]- 5235 Sep, [facility] [place] [facility] [address] [id number] [place] [address]- 8976 Aug, [facility] [place] [facility] [address] [id number] [place] [address]- 1359 Aug, [facility] [place] [facility] [address] [id number] [place] [address]- 9455 Aug, [facility] [place] [facility] [address] [id number] [place] [address]- 0450 Aug, [facility] [place] [facility] [address] [id number] [address]- 5368 Aug, [facility] [place] [facility] [address] [id number] [place] [address]- 0576 Aug, [facility] [place] [facility] [address] [id number] [place] [address]- 5504 Aug, [facility] [place] [facility] [address] [id number] [place] [address]- 2589 Aug, [facility] [place] [facility] [address] [id number] [place] [address]- 9229 Aug, [facility] [place] [facility] [address] [id number] [place] [address]- 5117 Aug, [facility] [place] [facility] [address] [id number] [place] [address]- 0016 Aug, [facility] [place] [facility] [address] [id number] [place] [address]- 5734 Aug, [facility] [place] [facility] [address] [id number] [place] [address]- 7349 Aug, [facility] [place] [facility] [address] [id number] [place] [address]- 5003 Aug, [facility] [place] [facility] [address] [id number] [place] [address]- 2718 Aug, [facility] [place] [facility] [address] [id number] [place] [address]- 3189 Aug, [facility] [place] [facility] [address] [id number] [place] [address]- 6745 Aug, [facility] [place] [facility] [address] [id number] [place] [address]- 2032 Jul, [facility] [place] [facility] [address] [facility] [id number] [place] [address]- 1160 Jul, [facility] [place] [facility] [address] [id number] [place] [address]- 9141 Jul, [facility] [place] [facility] [address] [id number] [place] [address]- 1040 Jul, [facility] [place] [facility] [address] [id number] [place] [address]- 9893 Jul, [facility] [place] [facility] [address] [facility] [id number] [place] [address]- 9950 Jul, [facility] [place] [facility] [address] [facility] [id number] [place] [address]186 Jul, [facility] [place] [facility] [address] [id number] [place] [address]- 2545 27 Jun, 2012 [facility] [place] [facility] [address] [id number] [place] [address] 2546 20 Jun, 2012 [facility] [place] [facility] [address] [id number] [place] [address] 2546 17 Jun, 2012 [facility] [place] [facility] [address] [id number] [place] [address] 2546 10 Jun, 2012 [facility] [place] [facility] [address] [id number] [place] [address] 2542 06 Sep, 2012 [facility] [place] [facility] [address] [id number] [place] [address]- 8244 06 Jun, 2012 [facility] [place] [facility] [address] [id number] [place] [address]- 6356 05 Jun, 2012 [facility] [place] [facility] [address] [id number] [place] [address]- 8954 03 Jun, 2012 [facility] [place] [facility] [address] [id number] [place] [address]- 5990 27 May, 2013 [facility] [place] [facility] [address] [id number] [place] [address]- 9062 22 May, 2013 [facility] [place] [facility] [address] [id number] [place] [address]- 0289 15 May, 2013 [facility] [place] [facility] [address] [id number] [place] [address]- 3190 14 May, 2013 [facility] [place] [facility] [address] [id number] [place] [address]- 0593 12 May, 2013 [facility] [place] [facility] [address] [id number] [place] [address]- 2544 May, [facility] [place] [facility] [address] [id number] [place] [address]- 2541 09 May, 2013 [facility] [place] [facility] [address] [id number] [place] [address]- 4889 May, IMMUNIZATIONS No Known Immunizations SOCIAL HISTORY Never Assessed REASON FOR VISIT foot wound. Consult Dr. Brown;Chata RT(R) PLAN OF CARE Activity Details Follow Up 2 Weeks Reason: VITAL SIGNS Height 62 in 2017-12-17 Blood pressure systolic 142 mmHg 2017-12-17 Blood pressure diastolic 88 mmHg 2017-12-17 MEDICATIONS Unknown Medications RESULTS No Results PROCEDURES Procedure Date Ordered Result Body Site DEBRIDE SKIN/TISSUE Dec 17, 2017 INSTRUCTIONS MEDICATIONS ADMINISTERED No Known Medications MEDICAL (GENERAL) HISTORY Type Description Date Medical History type I diabetes Medical History hypertension Medical History hyperlipidemia Medical History asthma Medical History migraine headaches Medical History allergic rhinitis Medical History neuropathy Medical History Chronic osteomyelitis, site unspecified Medical History 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 [facility] Surgical History bladder surgery-stretch [employer] [facility] 2003 Surgical History exploratory laparoscopy [facility] 1995 Surgical History amputation, toe (R great) Surgical History amputation, (R forefoot) 2014 Surgical History amputation, toe Left second 12/2016 Surgical History amputation, 4th left toe 02/2017 Hospitalization History Left foot cellulitis, left 2nd toe amputation-[facility] 12/23 Hospitalization History Surgery Hospitalizations
--- OUTSIDE RECORDS SUMMARY | 2018-08-22 09:08 | XMS REPORT ---
Author Author LUDIVINA STEPHANIE [facility] Address [address] [place] [address] Care Team Providers Care Graphic Artist Name Role Phone FARNAZ FLORENCEY Unavailable PROBLEMS Type Condition ICD9-CM Code VNZ12-TA Code Onset Dates Condition Status SNOMED Code Problem Subclinical hypothyroidism E03.9 Active 80747688 Problem Hypertriglyceridemia E78.1 Active 594904083 Problem Type 2 diabetes mellitus with diabetic polyneuropathy E11.42 Active 870787058 Problem Type 2 diabetes mellitus with diabetic chronic 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 Active 482752718 Problem Other chronic pain G89.29 Active 09160404 Problem Type 2 diabetes mellitus with other skin complications E11.628 Active 12142641 Problem Pain in left foot M79.672 Active 37783737 Problem Irregular menstrual cycle N92.6 Active 63865061 Problem Pain in right foot M79.671 Active 43576128 Problem Tonsillolith J35.8 Active 8440078 Problem Chronic prescription opiate use Z79.891 Active 298600017 Problem Seasonal allergic rhinitis due to pollen J30.1 Active 03311821 Problem Asthma exacerbation, mild J45.901 Active 536638774 Problem Chronic kidney disease, stage III (moderate) N18.3 Active 217347429 Problem Chronic migraine G43.709 Active 58356908 Problem Moderate persistent asthma without complication J45.40 Active 206063900 Problem Intrinsic eczema L20.84 Active 81264614 Problem Severe episode of recurrent major depressive disorder, without psychotic features F33.2 Active 84941777 Problem Non-pressure chronic ulcer of right heel and midfoot limited to breakdown of skin L97.411 Active 055275775 Problem Ulcer of right heel L97.419 Active 091345599 Problem Obesity E66.9 Active 877760627 Problem Type 2 diabetes mellitus with foot ulcer E11.621 Active 23549873 Problem Essential hypertension I10 Active 32482175 Problem Anxiety disorder, unspecified F41.9 Active 185527559 Problem Type 2 diabetes mellitus with other specified complication E11.69 Active 647585429 Problem Status post amputation of toe of left foot Z89.422 Active 940272470 Problem DM neuro manif type II E11.49 Active 51919813 Problem History of amputation of hallux Z89.419 Active 159920418 ALLERGIES No Information ENCOUNTERS Encounter Location Date Diagnosis [facility] [address] [address]- [address] 12 Mar, 2018 Moderate persistent asthma without complication J45.40 [facility] [address] 22624- 1482 07 Mar, 2018 Moderate persistent asthma without complication J45.40 [facility] [address] 29366- 2112 Mar, [facility] [address] 82766- 3355 February, Chronic migraine G43.709 [facility] [address] 13594- 9320 February, Chronic migraine G43.709 [facility] [address] 10126- 0461 February, [facility] [address] 32828- 8617 February, [facility] [address] 39214- 5560 February, Type 2 diabetes mellitus with diabetic polyneuropathy E11.42 ; Moderate persistent asthma without complication J45.40 ; Type 2 diabetes mellitus with foot ulcer E11.621 ; Non-pressure chronic ulcer of right heel and midfoot limited to breakdown of skin L97.411 ; Chronic migraine G43.709 and BMI 60.0-69.9, adult Z68.44 [facility] [id number] [place] [address] 01019 -6284 Jan, 2018 Asthma exacerbation, mild J45.901 ; Seasonal allergic rhinitis due to pollen J30.1 and BMI 60.0-69.9, adult Z68.44 [facility] [id number] [place] [address] 28560- 4650 Jan, [place] [address] 42656- 2668 Jan, Other chronic pain G89.29 [facility] [id number] [place] [address] 24627- 1754 30 Dec, 2017 Type 2 diabetes mellitus with diabetic polyneuropathy E11.42 [facility] [id number] [place] [address] 71752- 7123 Dec, Type 2 diabetes mellitus with diabetic polyneuropathy E11.42 [place] [address] 62135- 8966 15 Dec, 2017 [place] [address] 93326- 8143 14 Dec, 2017 [place] [id number] [place] [address] 00500- 2893 13 Dec, 2017 Chronic kidney disease, stage III (moderate) N18.3 [facility] [id number] [place] [address] 69245 -0060 09 Dec, 2017 Nausea R11.0 and Diarrhea, unspecified type R19.7 [place] [id number] [place] [address] 31654- 7013 07 Dec, 2017 Chronic kidney disease, stage III (moderate) N18.3 and Type 2 diabetes mellitus with diabetic polyneuropathy E11.42 [facility] [id number] [place] [address] 55360- 8269 Dec, [place] [address] 57579- 5043 Nov, Ulcer of right heel L97.419 and Type 2 diabetes mellitus with diabetic polyneuropathy E11.42 [facility] [id number] [place] [address] [id number] Nov, Dental examination Z01.20 [facility] [id number] [place] [address] 29109- 9951 Nov, Open wound of right foot, initial encounter S91.301A [facility] [id number] [place] [address] 25052 -9811 Nov, Open wound of right foot, initial encounter S91.301A ; Non- intractable vomiting with nausea, unspecified vomiting type R11.2 and BMI 60.0- 69.9, adult Z68.44 [facility] [id number] [place] [address] 91284- 9295 Nov, [place] [address] 75853- 2669 Nov, Other chronic pain G89.29 [place] [address] 01672- 8234 Oct, Cellulitis of right lower limb L03.115 [facility] [id number] [place] [address] 20142- 7362 Oct, [place] [address] 60864- 9163 Oct, [place] [id number] [place] [address] 91338- 1620 Oct, Cat scratch W55.03XA ; Cellulitis of right lower limb L03.115 ; Acute nasopharyngitis J00 ; BMI 60.0-69.9, adult Z68.44 and Cough R05 [place] [id number] [place] [address] 40159- 0518 Oct, Cat scratch W55.03XA ; Cutaneous abscess of right lower extremity L02.415 and Cellulitis of right lower limb L03.115 [place] [id number] [place] [address] 80050- 4705 Oct, Type 2 diabetes mellitus with diabetic polyneuropathy E11.42 [place] [address] [place] [address]- 6246 Oct, Other chronic pain G89.29 [place] [id number] [place] [address] 23610- 5764 Aug, [place] [id number] [place] [address] 08993- 5263 Jul, Other chronic pain G89.29 [place] [address] 06098- 4763 Jul, [place] [address] 38334- 4069 Jul, Chronic kidney disease, stage III (moderate) N18.3 [place] [address] 45896- 0367 Jul, Type 2 diabetes mellitus with diabetic polyneuropathy E11.42 ; Essential hypertension I10 ; Irregular menstrual cycle N92.6 ; Hypertriglyceridemia E78.1 ; Anxiety disorder, unspecified F41.9 ; Severe episode of recurrent major depressive disorder, without psychotic features F33.2 ; Tonsillolith J35.8 ; Intrinsic eczema L20.84 ; Subclinical hypothyroidism E03.9 ; Viral pharyngitis J02.9 and Encounter for immunization Z23 [place] [id number] [place] [address] 32949- 4567 13 Jun, 2017 Essential hypertension I10 [place] [id number] [place] [address] 44925- 9748 08 Jun, 2017 [place] [id number] [place] [address] 73063- 9764 Jun, [place] [id number] [place] [address] 09795- 1022 May, Moderate persistent asthma without complication J45.40 [place] [id number] [place] [address] 61324- 5393 May, Pain in right foot M79.671 ; Pain in left foot M79.672 ; Other chronic pain G89.29 and Chronic prescription opiate use Z79.891 [facility] [id number] [place] [address] 78854- 0979 May, [facility] [id number] [place] [address] 69642- 9972 May, [facility] [id number] [place] [address] 96534- 2840 Apr, [facility] [id number] [place] [address] 87600- 1850 Apr, Chronic migraine G43.709 [facility] [address] 62558- 9184 Apr, Essential hypertension I10 ; Hypertriglyceridemia E78.1 and Chronic migraine G43.709 [facility] [id number] [place] [address] 01178- 9071 Apr, [facility] [id number] [place] [address] 80527- 1655 Apr, Sore throat J02.9 [facility] [id number] [place] [address] 20692- 7202 Apr, [facility] [id number] [place] [address] 12356- 3652 Mar, Strep pharyngitis J02.0 and Non-intractable vomiting with nausea, unspecified vomiting type R11.2 [facility] [id number] [place] [address] 06048- 1031 Mar, [facility] [id number] [place] [address] 74104- 6110 Mar, [facility] [id number] [place] [address] 99243- 3287 Mar, [facility] [id number] [place] [address] 53976- 7140 Mar, Type 2 diabetes mellitus with diabetic polyneuropathy E11.42 ; Moderate persistent asthma without complication J45.40 ; Status post amputation of toe of left foot Z89.422 ; Acute seasonal allergic rhinitis, unspecified trigger J30.2 and Left shoulder pain, unspecified chronicity M25.512 [place] [id number] [place] [address] 14563- 1060 Mar, [place] [id number] [place] [address] 66915- 2238 February, Pre-op evaluation Z01.818 ; Type 2 diabetes mellitus with diabetic polyneuropathy E11.42 and Type 2 diabetes mellitus with foot ulcer E11.621 [place] [id number] [place] [address] 30867- 5507 February, [place] [id number] [place] [address] 00280- 9302 February, [place] [id number] [place] [address] 86696- 8245 February, Toe infection L08.9 and Type 2 diabetes mellitus with other specified complication E11.69 [place] [id number] [place] [address] 00518- 9193 February, [place] [id number] [place] [address] 12444- 9796 Jan, Type 2 diabetes mellitus with diabetic polyneuropathy E11.42 [place] [id number] [place] [address] 61862- 8530 Jan, [place] [id number] [place] [address] 62661- 1667 Jan, Right upper quadrant pain R10.11 and Intractable vomiting with nausea, unspecified vomiting type R11.2 [place] [id number] [place] [address] 53119- 5512 Jan, Hypertriglyceridemia E78.1 and Essential hypertension I10 [place] [id number] [place] [address] 36394- 6796 Jan, Essential hypertension I10 ; Type 2 diabetes mellitus with diabetic polyneuropathy E11.42 and Hypertriglyceridemia E78.1 [facility] [id number] [place] [address] 79727- 2358 16 Dec, 2016 Type 2 diabetes mellitus with diabetic polyneuropathy E11.42 [facility] [id number] [place] [address] 89086- 7235 15 Dec, 2016 Hypertriglyceridemia E78.1 ; Essential hypertension I10 ; Type 2 diabetes mellitus with diabetic polyneuropathy E11.42 ; Anxiety disorder , unspecified F41.9 and Moderate persistent asthma without complication J45.40 [facility] [id number] [place] [address] 39219- 6073 Dec, Type 2 diabetes mellitus with diabetic polyneuropathy E11.42 [facility] [place] [id number] [place] [address] [id number] Dec, [facility] [address] 62293- 5466 Nov, [facility] [id number] [place] [address] 99370- 5881 Nov, [facility] [id number] [place] [address] 39408- 3793 Nov, [facility] [id number] [place] [address] 64540- 9196 Nov, Toe infection L08.9 [facility] [id number] [place] [address] 08273- 9188 Nov, [facility] [id number] [place] [address] 02530- 7405 Oct, History of amputation of hallux Z89.419 [facility] [id number] [place] [address] 95915- 8332 Oct, Type 2 diabetes mellitus with diabetic polyneuropathy E11.42 [facility] [id number] [place] [address] 75394- 6250 Oct, Type 2 diabetes mellitus with diabetic polyneuropathy E11.42 [facility] [address] [address]- 7427 Oct, Acute osteomyelitis of left foot M86.172 ; Pre-op exam Z01.818 and Type 2 diabetes mellitus with diabetic polyneuropathy E11.42 [facility] [address] [address]- 4277 Oct, Foot ulcer, left, with unspecified severity L97.529 ; Acute osteomyelitis of left foot M86.172 and Type 2 diabetes mellitus with diabetic polyneuropathy E11.42 [facility] [id number] [place] [address] 83154- 9715 Sep, [facility] [id number] [place] [address] 60932- 3789 Sep, Intractable vomiting with nausea, unspecified vomiting type R11.2 and Right upper quadrant pain R10.11 [facility] [id number] [place] [address] 33082- 8321 Aug, [facility] [id number] [place] [address] 52801- 6569 Jul, [facility] [id number] [place] [address] 50090- 9623 Jul, Preop examination Z01.818 [facility] [id number] [place] [address] 43531- 8466 Jul, [facility] [address] [address]- 5626 Jul, [facility] [id number] [place] [address] 40042- 1835 Jul, Chronic osteomyelitis of left foot M86.672 and Ulcer of left foot, with unspecified severity L97.529 [facility] [address] [address]- 0242 Jul, Non-pressure chronic ulcer of other part of left foot with unspecified severity L97.529 [facility] [address] [address]- 8849 Jul, [facility] [id number] [place] [address] 88350- 4020 Jul, [facility] [id number] [place] [address] 73969- 1491 Jun, [facility] [id number] [place] [address] 29780- 4357 Jun, [facility] [id number] [place] [address] 33962- 9549 Jun, [facility] [id number] [place] [address] 02030- 6431 21 Jun, 2016 Right upper quadrant pain R10.11 [facility] [id number] [place] [address] 42384- 4334 20 Jun, 2016 [facility] [id number] [place] [address] 25902- 6598 19 Jun, 2016 Intractable vomiting with nausea, unspecified vomiting type R11.2 [facility] [id number] [place] [address] 68216- 9673 13 Jun, 2016 Right upper quadrant pain R10.11 ; Migraine with aura and with status migrainosus, not intractable G43.101 and Intractable vomiting with nausea, unspecified vomiting type R11.2 [facility] [address] [place] [address] 62652- 3855 12 Jun, 2016 [facility] [id number] [place] [address] 75551- 0016 Jun, Gastroenteritis K52.9 [facility] [id number] [place] [address] 41461- 2659 May, [facility] [id number] [place] [address] 52494- 9472 May, Hypertriglyceridemia E78.1 ; Essential hypertension I10 ; Type 2 diabetes mellitus with diabetic polyneuropathy E11.42 ; Moderate persistent asthma without complication J45.40 ; Type 2 diabetes mellitus with foot ulcer E11.621 ; Other chronic pain G89.29 ; Pain in right leg M79.604 ; Pain of left leg M79.605 ; Rash and nonspecific skin eruption R21 and Anxiety disorder, unspecified F41.9 [place] [address] 69323- 7812 May, Essential hypertension I10 ; Hypertriglyceridemia E78.1 ; Upper respiratory infection J06.9 ; Subclinical hypothyroidism E03.9 and Type 2 diabetes mellitus with diabetic polyneuropathy E11.42 [place] [address] 64149- 4216 Apr, Hypertriglyceridemia E78.1 ; Subclinical hypothyroidism E03.9 ; Essential hypertension I10 and Type 2 diabetes mellitus with diabetic polyneuropathy E11.42 [place] [address] 36726- 7685 Mar, [place] [address] 78892- 3894 Mar, Ulcer of right heel L97.419 [place] [id number] [place] [address] 33082- 7026 Mar, [place] [id number] [place] [address] 77803- 8840 Mar, [place] [id number] [place] [address] 26686- 3349 February, [place] [address] 65515- 2771 February, Ulcer of right heel L97.419 and DM neuro manif type II E11.49 [place] [id number] [place] [address] 66955- 5120 Jan, [place] [address] 48603- 5310 Jan, Ulcer of right heel L97.419 ; Type 2 diabetes mellitus with foot ulcer E11.621 and Non-pressure chronic ulcer of other part of left foot with unspecified severity L97.529 [facility] [id number] [place] [address] 47892- 7080 Jan, [facility] [id number] [place] [address] 39790- 8984 Jan, [place] [id number] [place] [address] 51398- 5554 Jan, Infection of toenail L03.039 [place] [address] 29912- 5291 Jan, Blister of toe of left foot, initial encounter S90.425A and Type 2 diabetes mellitus with diabetic polyneuropathy E11.42 [place] [id number] [place] [address] 55416- 8171 Jan, [facility] [id number] [place] [address] 78793 -5366 Jan, Sore throat J02.9 and Strep pharyngitis J02.0 [place] [id number] [place] [address] 83992- 0929 Dec, Type 2 diabetes mellitus with diabetic polyneuropathy E11.42 ; Upper respiratory infection J06.9 ; Cough R05 and Asthma exacerbation J45.901 [place] [id number] [place] [address] 31412- 6471 Oct, [place] [id number] [place] [address] 99064- 6341 Oct, [facility] [id number] [place] [address] 45259- 0745 Oct, [facility] [id number] [place] [address] 90579- 0500 Oct, [facility] [id number] [place] [address] 65201- 6704 Sep, [place] [id number] [place] [address] 26870- 1927 Aug, Anxiety disorder, unspecified F41.9 and Obesity E66.9 [place] [id number] [place] [address] 07223- 4494 Aug, Moderate persistent asthma without complication J45.[address] 24923- 2329 Aug, Anxiety disorder, unspecified F41.9 [place] [id number] [place] [address] 33638- 0890 Aug, Chronic migraine G43.709 ; Encounter for immunization Z23 ; Hypertriglyceridemia E78.1 ; Type 2 diabetes mellitus with diabetic polyneuropathy E11.42 ; Moderate persistent asthma without complication J45.40 and Morbid obesity E66.01 [place] [id number] [place] [address] 52238- 7105 Jul, [place] [id number] [place] [address] 82142- 4361 Jul, [place] [id number] [place] [address] 52540- 0518 Jul, [place] [id number] [place] [address] 29558- 8208 Jul, Subclinical hypothyroidism E03.9 [place] [id number] [place] [address] 41148- 8646 Jun, Essential hypertension, benign 401.1 ; Diabetic ulcer of lower extremity 250.80 ; Asthma 493.90 ; Diabetes mellitus type II, uncontrolled 250.02 and Hyperlipidemia associated with type 2 diabetes mellitus 250.80 [place] [id number] [place] [address] 88134- 8719 Jun, [place] [id number] [place] [address] 22345- 5410 Jun, [address] [address]- 3745 May, [facility] [id number] [place] [address] 72557- 8786 Apr, [facility] [id number] [place] [address] 36663- 8809 Apr, Viral upper respiratory infection 465.9 and Asthma 493.90 [facility] [id number] [place] [address] 81894- 8921 Mar, Abnormal ankle brachial index 796.4 [facility] [id number] [place] [address] 68816- 2427 February, [facility] [id number] [place] [address] 79701- 8269 February, Essential hypertension, benign 401.1 [facility] [id number] [place] [address] 42585- 6395 February, Diabetic peripheral neuropathy 250.60 ; Ulcer of heel and midfoot 707.14 and Decreased pedal pulses 785.9 [facility] [id number] [place] [address] 08812- 9493 February, [facility] [id number] [place] [address] 64108- 9946 February, [facility] [id number] [place] [address] 19812- 5344 Jan, [facility] [id number] [place] [address] [id number] Jan, [facility] [id number] [place] [address] [id number] [id number] Dec, [facility] [id number] [place] [address] [id number]- [id number] Dec, [facility] [id number] [address] Nov, [facility] [place] [facility] [address] [id number] [place] [address] Nov, 2014 [facility] [place] [facility] [address] [id number] [place], [place] [address] Nov, 2014 [facility] [place] [facility] [address] [id number] [place] [address] Nov, 2014 [facility] [place] [facility] [address] [id number] [place] [address] 2546 Nov, 2014 [facility] [place] [facility] [address] [id number] [place] [address] Nov, 2014 [facility] [place] [facility] [address] [id number] [place] [address] 3646 Nov, 2014 [facility] [place] [facility] [address] [id number] [place] [address] 5[address] Nov, [facility] [place] [facility] [address] [id number] [place] [address] 6513 Nov, [facility] [place] [facility] [address] [id number] [place] [address] 0040 Oct, [facility] [place] [facility] [address] [id number] [place] [address]- 3857 Oct, [facility] [place] [facility] [address] [id number] [place] [address] 2540 Oct, [facility] [place] [facility] [address] [id number] [place] [address]- 254 Oct, [facility] [place] [facility] [address] [id number] [place] [address] 2548 Oct, [facility] [place] [facility] [address] [id number] [place] [address]- 2543 Oct, [facility] [place] [facility] [address] [id number] [place] [address]- 6453 Oct, [facility] [place] [facility] [address] [id number] [place] [address]- 0729 Oct, [facility] [address] [id number] [place] [address]- 2306 Oct, [facility] [place] [facility] [address] [id number] [place] [address]- 4889 Oct, [facility] [place] [facility] [address] [id number] [place] [address]- 7610 Oct, [facility] [place] [facility] [address] [id number] [place] [address]- 6278 Oct, [facility] [place] [facility] [address] [id number] [place] [address]- 2408 Oct, [facility] [place] [facility] [address] [id number] [place] [address]- 3795 Sep, [facility] [place] [facility] [address] [id number] [place] [address]- 4653 Sep, [facility] [place] [facility] [address] [id number] [place] [address]- 1149 Sep, [facility] [place] [facility] [address] [id number] [place] [address]- 6003 Sep, [facility] [place] [facility] [address] [id number] [place] [address]- 6467 Sep, [facility] [place] [facility] [address] [id number] [place] [address]- 8010 Sep, [facility] [place] [facility] [address] [id number] [place] [address]- 6327 Sep, [facility] [place] [facility] [address] [id number] [place] [address]- 9519 Sep, [facility] [place] [facility] [address] [id number] [place] [address]- 8363 Sep, [facility] [place] [facility] [address] [id number] [place] [address]- 4411 Sep, [facility] [place] [facility] [address] [id number] [place] [address] Sep, [facility] [place] [facility] [address] [id number] [place] [address] Sep, [facility] [place] [facility] [address] [id number] [place] [address]- 0546 Sep, [facility] [place] [facility] [address] [id number] [place] [address] Sep, [facility] [place] [facility] [address] [id number] [place] [address]- 8410 Sep, [facility] [place] [facility] [address] [id number] [place] [address]- 8083 Sep, [facility] [place] [facility] [address] [id number] [place] [address]- 7217 Aug, [facility] [place] [facility] [address] [id number] [place] [address]- 1791 Aug, [facility] [place] [facility] [address] [id number] [place] [address]- 9094 Aug, [facility] [place] [facility] [address] [id number] [place] [address]- 8097 Aug, [facility] [place] [facility] [address] [id number] [place] [address]- 3843 Aug, [facility] [place] [facility] [address] [id number] [place] [address]- 9932 Aug, [facility] [place] [facility] [address] [id number] [place] [address]- 6787 Aug, [facility] [place] [facility] [address] [id number] [place] [address]- 3069 Aug, [facility] [place] [facility] [address] [id number] [place] [address]- 6634 Jul, [facility] [place] [facility] [address] [id number] [place] [address]- 6342 Jul, [facility] [place] [facility] [address] [id number] [place] [address]- 2035 30 Jul, 2014 [facility] [place] [facility] [address] [id number] [place] [address]- 0183 Jul, [facility] [place] [facility] [address] [id number] [place] [address]- 1863 Jul, [facility] [place] [facility] [address] [id number] [place] [address]- 4660 Jun, [facility] [place] [facility] [address] [id number] [place] [address]- 4960 Jun, [facility] [place] [facility] [address] [id number] [place] [address]- 2365 Jun, [facility] [place] [facility] [address] [id number] [place] [address]- 4231 Jun, [facility] [place] [facility] [address] [id number] [place] [address]- 6093 Jun, [facility] [place] [facility] [address] [id number] [place] [address]- 1132 May, [facility] [place] [facility] [address] [id number] [place] [address]- 9754 May, [facility] [place] [facility] [address] [id number] [place] [address]- 3918 Apr, [facility] [place] [facility] [address] [id number] [place] [address]- 3906 Apr, [facility] [place] [facility] [address] [id number] [place] [address]- 6097 Apr, [facility] [place] [facility] [address] [id number] [place] [address]- 3198 Apr, [facility] [place] [facility] [address] [id number] [place] [address] Apr, [facility] [place] [facility] [address] [id number] [place] [address]- 1830 Apr, [facility] [place] [facility] [address] [id number] [place] [address]- 6142 Mar, [facility] [place] [facility] [address] [id number] [place] [address]- 4467 Mar, [facility] [place] [facility] [address] [id number] [place] [address]- 9522 Mar, [facility] [place] [facility] [address] [id number] [place] [address]- 0212 Mar, [facility] [place] [facility] [address] [id number] [place] [address]- 8856 Mar, [facility] [place] [facility] [address] [id number] [place] [address]- 7425 Mar, [facility] [place] [facility] [address] [id number] [place] [address]- 8215 Mar, [facility] [place] [facility] [address] [id number] [place] [address]- 0739 Mar, [facility] [place] [facility] [address] [id number] [place] [address]- 2123 Mar, [facility] [place] [facility] [address] [id number] [place] [address]- 8301 Mar, [facility] [place] [facility] [address] [id number] [place] [address]- 8758 Mar, [facility] [place] [facility] [address] [id number] [place] [address]- 3428 Mar, [facility] [place] [facility] [address] [id number] [place] [address]- 7384 Mar, [facility] [place] [facility] [address] [id number] [place] [address]- 8586 Mar, [facility] [place] [facility] [address] [id number] [place] [address]- 2941 Mar, [facility] [place] [facility] [address] [id number] [place] [address]- 3774 Mar, [facility] [place] [facility] [address] [id number] [place] [address]- 0657 February, [facility] [place] [facility] [address] [id number] [place] [address]- 6942 February, [facility] [place] [facility] [address] [id number] [place] [address]- 3831 February, [facility] [place] [facility] [address] [id number] [place] [address]- 3586 February, [facility] [place] [facility] [address] [id number] [place] [address]- 5833 February, [facility] [place] [facility] [address] [id number] [place] [address]- 4901 February, [facility] [place] [facility] [address] [id number] [place] [address]- 9613 February, [facility] [place] [facility] [address] [id number] [place] [address]- 9349 February, [facility] [place] [facility] [address] [id number] [place] [address]- 5082 Jan, [facility] [place] [facility] [address] [id number] [place] [address]- 2871 Jan, [facility] [place] [facility] [address] [id number] [place] [address]- 3607 Dec, [facility] [place] [facility] [address] [id number] [place] [address]- 1109 Dec, [facility] [place] [facility] [address] [id number] [place] [address]- 6948 Dec, [facility] [place] [facility] [address] [id number] [place] [address]- 3325 Dec, [facility] [place] [facility] [address] [id number] [place] [address]- 8061 24 Dec, 2013 [facility] [place] [facility] [address] [id number] [place] [address]- 6013 24 Dec, 2013 [facility] [place] [facility] [address] [id number] [place] [address]- 5840 Dec, [facility] [place] [facility] [address] [id number] [place] [address]- 3480 Dec, [facility] [place] [facility] [address] [id number] [place] [address]- 3325 17 Dec, 2013 [facility] [place] [facility] [address] [id number] [place] [address]- 5075 17 Dec, 2013 [facility] [place] [facility] [address] [id number] [place] [address]- 0195 Dec, [facility] [place] [facility] [address] [id number] [place] [address]- 6043 Dec, [facility] [place] [facility] [address] [id number] [place] [address]- 2176 Dec, [facility] [place] [facility] [address] [id number] [place] [address]- 6500 Dec, [facility] [place] [facility] [address] [id number] [place] [address]- 6725 Nov, [facility] [place] [facility] [address] [id number] [place] [address]- 5316 Nov, [facility] [place] [facility] [address] [id number] [place] [address]- 7770 Oct, [facility] [place] [facility] [address] [id number] [place] [address]- 9724 Oct, [facility] [place] [facility] [address] [id number] [place] [address]- 6541 Oct, [facility] [place] [facility] [address] [id number] [place] [address]- 2467 Oct, [facility] [place] [facility] [address] [id number] [place] [address]- 2784 16 Oct, 2013 [facility] [place] [facility] [address] [id number] [place] [address]- 1878 Oct, [facility] [place] [facility] [address] [id number] [place] [address]- 5926 Oct, [facility] [place] [facility] [address] [id number] [place] [address]- 7652 31 Sep, 2013 [facility] [place] [facility] [address] [id number] [place] [address]- 2578 30 Sep, 2013 [facility] [place] [facility] [address] [id number] [place] [address]- 1886 30 Sep, 2013 [facility] [place] [facility] [address] [id number] [place] [address]- 1843 Sep, [facility] [place] [facility] [address] [id number] [place] [address]- 1480 Sep, [facility] [place] [facility] [address] [id number] [place] [address]- 2632 Sep, [facility] [place] [facility] [address] [id number] [place] [address]- 4384 Sep, [facility] [place] [facility] [address] [id number] [place] [address]- 9235 Sep, [facility] [place] [facility] [address] [id number] [place] [address]- 2670 Sep, [facility] [place] [facility] [address] [id number] [place] [address] 2548 Sep, [facility] [place] [facility] [address] [id number] [place] [address]- 2846 Sep, [facility] [place] [facility] [address] [id number] [place] [address]- 6286 Sep, [facility] [place] [facility] [address] [id number] [place] [address]- 6749 Sep, [facility] [place] [facility] [address] [id number] [place] [address]- 8946 16 Sep, 2013 [facility] [place] [facility] [address] [id number] [place] [address]- 4808 Sep, [facility] [place] [facility] [address] [id number] [place] [address]- 0605 Sep, [facility] [place] [facility] [address] [id number] [place] [address]- 9888 Sep, [facility] [place] [facility] [address] [id number] [place] [address]- 2155 Sep, [facility] [place] [facility] [address] [id number] [place] [address]- 4096 Sep, [facility] [place] [facility] [address] [id number] [place] [address]- 7540 Aug, [facility] [place] [facility] [address] [id number] [place] [address]- 7401 Aug, [facility] [place] [facility] [address] [id number] [place] [address]- 0634 Aug, [facility] [place] [facility] [address] [id number] [place] [address]- 1376 Aug, [facility] [place] [facility] [address] [id number], [place] [address]- 9119 Aug, [facility] [place] [facility] [address] [id number] [address]- 7414 Aug, [facility] [place] [facility] [address] [id number] [place] [address]- 5377 Aug, [facility] [place] [facility] [address] [id number], [place] [address]- 3757 Aug, [facility] [place] [facility] [address] [id number], [place] [address]- 5588 Aug, [facility] [place] [facility] [address] [id number] [place] [address]- 2199 Aug, [facility] [place] [facility] [address] [id number] [place] [address]- 1064 Aug, [facility] [place] [facility] [address] [id number] [place] [address]- 9746 Aug, [facility] [place] [facility] [address] [id number] [place] [address]- 9547 Aug, [facility] [place] [facility] [address] [id number] [place] [address]- 2945 Aug, [facility] [place] [facility] [address] [id number] [place] [address]- 8346 Aug, [facility] [place] [facility] [address] [id number] [place] [address]- 6913 Aug, [facility] [place] [facility] [address] [facility] [id number] [place] [address]- 0307 Aug, [facility] [place] [facility] [address] [id number] [place] [address]- 2797 Jul, [facility] [place] [facility] [address] [id number] [place] [address]- 6969 Jul, [facility] [place] [facility] [address] [facility] [id number] [place] [address]- 0961 Jul, [facility] [place] [facility] [address] [id number] [place] [address]- 4446 Jul, [facility] [place] [facility] [address] [id number], [place] [address]- 1807 Jul, [facility] [place] [facility] [address] [id number] [place] [address]- 8798 Jul, [facility] [place] [facility] [address] [facility] [id number] [place] 9118 Jul, [facility] [place] [facility] [address] [id number][place] [address]75 Jun, [facility] [address] [id number], [place] [address]- 4144 20 Jun, 2012 [facility] [address] [id number] [place] [address]- 0616 17 Jun, 2012 [facility] [address] [facility] [id number], [place] [address]- 4237 10 Jun, 2012 [facility] [address] [id number] [place] [address]- 0583 06 Jun, 2012 [facility] [address] [id number] [place] [address]- 6993 06 Jun, 2012 [facility] [address] [id number] [place] [address]- 8511 05 Jun, 2012 [facility] [address] [facility] [id number] [place] [address]- 8534 03 Jun, 2012 [facility] [address] [facility] [id number], [place] [address]- 8016 May, [facility] [address] [facility] [id number], [place] [address]- 3817 May, [facility] [address] [id number], [place] [address]- 9457 15 May, 2013 [facility] [address] [id number], [place] [address]- 0964 May, [facility] [address] [id number], [place] [address]- 8208 May, [facility] [address] [facility] [id number], [place] [address]- 4090 May, [facility] [address] [facility] [id number], [place] [address]- 8081 May, [facility] [address] [facility] [id number], [place] [address]- 4207 May, IMMUNIZATIONS No Known Immunizations SOCIAL HISTORY Never Assessed REASON FOR VISIT Requests return call PLAN OF CARE VITAL SIGNS MEDICATIONS Medication Instructions Dosage Frequency Start Date End Date Duration Status Test strips One Touch Ultra as directed [...] History Left foot cellulitis, left 2nd toe amputation-[facility] 12/23 Hospitalization History Surgery Hospitalizations
--- OUTSIDE RECORDS SUMMARY | 2018-08-22 09:09 | XMS REPORT ---
Author Author LUDIVINA STEPHANIE [facility] Address [address] [place] [address] Care Team Providers Care Ui Engineer Name Role Phone FARNAZ FLORENCEY Unavailable PROBLEMS Type Condition ICD9-CM Code MSU31-RK Code Onset Dates Condition Status SNOMED Code Problem Subclinical hypothyroidism E03.9 Active 38551544 Problem Hypertriglyceridemia E78.1 Active 252692843 Problem Type 2 diabetes mellitus with diabetic polyneuropathy E11.42 Active 775132042 Problem Type 2 diabetes mellitus with diabetic chronic 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 Active 350436542 Problem Other chronic pain G89.29 Active 19687410 Problem Type 2 diabetes mellitus with other skin complications E11.628 Active 33161945 Problem Pain in left foot M79.672 Active 75020412 Problem Irregular menstrual cycle N92.6 Active 27059021 Problem Pain in right foot M79.671 Active 13722583 Problem Tonsillolith J35.8 Active 7956659 Problem Chronic prescription opiate use Z79.891 Active 159629409 Problem Seasonal allergic rhinitis due to pollen J30.1 Active 70011990 Problem Asthma exacerbation, mild J45.901 Active 934758455 Problem Chronic kidney disease, stage III (moderate) N18.3 Active 833459429 Problem Chronic migraine G43.709 Active 95222097 Problem Moderate persistent asthma without complication J45.40 Active 533538494 Problem Intrinsic eczema L20.84 Active 96297226 Problem Severe episode of recurrent major depressive disorder, without psychotic features F33.2 Active 70141114 Problem Non-pressure chronic ulcer of right heel and midfoot limited to breakdown of skin L97.411 Active 940108236 Problem Ulcer of right heel L97.419 Active 716608547 Problem Obesity E66.9 Active 203035985 Problem Type 2 diabetes mellitus with foot ulcer E11.621 Active 23977718 Problem Essential hypertension I10 Active 24497704 Problem Anxiety disorder, unspecified F41.9 Active 554735364 Problem Type 2 diabetes mellitus with other specified complication E11.69 Active 235420421 Problem Status post amputation of toe of left foot Z89.422 Active 534251353 Problem DM neuro manif type II E11.49 Active 30683038 Problem History of amputation of hallux Z89.419 Active 968965070 ALLERGIES No Information ENCOUNTERS Encounter Location Date Diagnosis [facility] [address] [address] 12 Mar, 2018 Moderate persistent asthma without complication J45.40 [facility] [address] 64379- 2944 07 Mar, 2018 Moderate persistent asthma without complication J45.40 [facility] [address] 55644- 3463 Mar, [facility] [address] 60479- 6281 February, Chronic migraine G43.709 [facility] [address] 47107- 8730 February, Chronic migraine G43.709 [facility] [address] 80592- 7683 February, [facility] [address] 5[address]20- 3027 February, [facility] [address] 11603- 8259 February, Type 2 diabetes mellitus with diabetic polyneuropathy E11.42 ; Moderate persistent asthma without complication J45.40 ; Type 2 diabetes mellitus with foot ulcer E11.621 ; Non-pressure chronic ulcer of right heel and midfoot limited to breakdown of skin L97.411 ; Chronic migraine G43.709 and BMI 60.0-69.9, adult Z68.44 [facility] [id number] [place] [address] 32225 -3036 Jan, 2018 Asthma exacerbation, mild J45.901 ; Seasonal allergic rhinitis due to pollen J30.1 and BMI 60.0-69.9, adult Z68.44 [facility] [id number] [place] [address] 80319- 2370 Jan, [place] [facility] [address] 46966- 9891 Jan, Other chronic pain G89.29 [facility] [id number] [place] [address] 98438- 9002 30 Dec, 2017 Type 2 diabetes mellitus with diabetic polyneuropathy E11.42 [facility] [id number] [place] [address] 98608- 7752 Dec, Type 2 diabetes mellitus with diabetic polyneuropathy E11.42 [facility] [address] 21770- 0985 15 Dec, 2017 [place] [address] 54341- 6340 14 Dec, 2017 [facility] [id number] [place] [address] 27562- 0057 13 Dec, 2017 Chronic kidney disease, stage III (moderate) N18.3 [facility] [id number] [place] [address] 32793 -7312 09 Dec, 2017 Nausea R11.0 and Diarrhea, unspecified type R19.7 [facility] [id number] [place] [address] 08702- 4270 07 Dec, 2017 Chronic kidney disease, stage III (moderate) N18.3 and Type 2 diabetes mellitus with diabetic polyneuropathy E11.42 [facility] [id number] [place] [address] 57134- 1692 Dec, [place] [address] 50746- 0513 Nov, Ulcer of right heel L97.419 and Type 2 diabetes mellitus with diabetic polyneuropathy E11.42 [facility] [id number] [place] [address] [id number] Nov, Dental examination Z01.20 [facility] [id number] [place] [address] 04252- 4015 Nov, Open wound of right foot, initial encounter S91.301A [facility] [id number] [place] [address] 15718 -6166 Nov, Open wound of right foot, initial encounter S91.301A ; Non- intractable vomiting with nausea, unspecified vomiting type R11.2 and BMI 60.0- 69.9, adult Z68.44 [facility] [id number] [place] [address] 67153- 4044 Nov, [place] [address] 38995- 3360 Nov, Other chronic pain G89.29 [place] [address] 56886- 9922 Oct, Cellulitis of right lower limb L03.115 [facility] [id number] [place] [address] 44329- 7775 Oct, [place] [address] 14206- 2474 Oct, [facility] [id number] [place] [address] 13555- 3274 Oct, Cat scratch W55.03XA ; Cellulitis of right lower limb L03.115 ; Acute nasopharyngitis J00 ; BMI 60.0-69.9, adult Z68.44 and Cough R05 [facility] [id number] [place] [address] 18403- 5504 Oct, Cat scratch W55.03XA ; Cutaneous abscess of right lower extremity L02.415 and Cellulitis of right lower limb L03.115 [facility] [id number] [place] [address] 16878- 2806 Oct, Type 2 diabetes mellitus with diabetic polyneuropathy E11.42 [facility] [address] [place] [address]- 9008 Oct, Other chronic pain G89.29 [facility] [id number] [place] [address] 32361- 5909 Aug, [facility] [id number] [place] [address] 69447- 5906 Jul, Other chronic pain G89.29 [facility] [place] [address] 14800- 4737 Jul, [place] [address] 84079- 4021 Jul, Chronic kidney disease, stage III (moderate) N18.3 [place] [address] 08493- 1302 Jul, Type 2 diabetes mellitus with diabetic polyneuropathy E11.42 ; Essential hypertension I10 ; Irregular menstrual cycle N92.6 ; Hypertriglyceridemia E78.1 ; Anxiety disorder, unspecified F41.9 ; Severe episode of recurrent major depressive disorder, without psychotic features F33.2 ; Tonsillolith J35.8 ; Intrinsic eczema L20.84 ; Subclinical hypothyroidism E03.9 ; Viral pharyngitis J02.9 and Encounter for immunization Z23 [facility] [id number] [place] [address] 11682- 7007 13 Jun, 2017 Essential hypertension I10 [facility] [id number] [place] [address] 66574- 5297 08 Jun, 2017 [facility] [id number] [place] [address] 05226- 1392 Jun, [facility] [id number] [place] [address] 06662- 6298 May, Moderate persistent asthma without complication J45.40 [facility] [id number] [place] [address] 99391- 6125 May, Pain in right foot M79.671 ; Pain in left foot M79.672 ; Other chronic pain G89.29 and Chronic prescription opiate use Z79.891 [facility] [id number] [place] [address] 49348- 6434 May, [facility] [id number] [place] [address] 11396- 9448 May, [facility] [id number] [place] [address] 22073- 8721 Apr, [facility] [id number] [place] [address] 30106- 9042 Apr, Chronic migraine G43.709 [facility] [address] 53581- 8938 Apr, Essential hypertension I10 ; Hypertriglyceridemia E78.1 and Chronic migraine G43.709 [facility] [id number] [place] [address] 59038- 8579 Apr, [facility] [id number] [place] [address] 29343- 2058 Apr, Sore throat J02.9 [facility] [id number] [place] [address] 87447- 5760 Apr, [facility] [id number] [place] [address] 55195- 7335 Mar, Strep pharyngitis J02.0 and Non-intractable vomiting with nausea, unspecified vomiting type R11.2 [facility] [id number] [place] [address] 45626- 1324 Mar, [facility] [id number] [place] [address] 57904- 8595 Mar, [facility] [id number] [place] [address] 40074- 7178 Mar, [facility] [id number] [place] [address] 98669- 5887 Mar, Type 2 diabetes mellitus with diabetic polyneuropathy E11.42 ; Moderate persistent asthma without complication J45.40 ; Status post amputation of toe of left foot Z89.422 ; Acute seasonal allergic rhinitis, unspecified trigger J30.2 and Left shoulder pain, unspecified chronicity M25.512 [facility] [id number] [place] [address] 59278- 3208 Mar, [facility] [id number] [place] [address] 81471- 7329 February, Pre-op evaluation Z01.818 ; Type 2 diabetes mellitus with diabetic polyneuropathy E11.42 and Type 2 diabetes mellitus with foot ulcer E11.621 [facility] [id number] [place] [address] 01801- 8780 February, [facility] [id number] [place] [address] 90059- 5614 February, [facility] [id number] [place] [address] 81658- 0866 February, Toe infection L08.9 and Type 2 diabetes mellitus with other specified complication E11.69 [facility] [id number] [place] [address] 10086- 4797 February, [facility] [id number] [place] [address] 89413- 7901 Jan, Type 2 diabetes mellitus with diabetic polyneuropathy E11.42 [facility] [id number] [place] [address] 26395- 4740 Jan, [facility] [place] [id number] [place] [address] 56312- 7562 Jan, Right upper quadrant pain R10.11 and Intractable vomiting with nausea, unspecified vomiting type R11.2 [facility] [id number] [place] [address] 48427- 6869 Jan, Hypertriglyceridemia E78.1 and Essential hypertension I10 [facility] [id number] [place] [address] 20622- 4824 Jan, Essential hypertension I10 ; Type 2 diabetes mellitus with diabetic polyneuropathy E11.42 and Hypertriglyceridemia E78.1 [facility] [id number] [place] [address] 50718- 4984 16 Dec, 2016 Type 2 diabetes mellitus with diabetic polyneuropathy E11.42 [facility] [id number] [place] [address] 23936- 5269 15 Dec, 2016 Hypertriglyceridemia E78.1 ; Essential hypertension I10 ; Type 2 diabetes mellitus with diabetic polyneuropathy E11.42 ; Anxiety disorder , unspecified F41.9 and Moderate persistent asthma without complication J45.40 [facility] [id number] [place] [address] 00391- 8877 Dec, Type 2 diabetes mellitus with diabetic polyneuropathy E11.42 [facility] [id number] [place] [address] [id number] Dec, [facility] [address] 41826- 8396 Nov, [facility] [id number] [place] [address] 47586- 1701 Nov, [facility] [id number] [place] [address] 14880- 8170 Nov, [facility] [id number] [place] [address] 88427- 7349 Nov, Toe infection L08.9 [facility] [id number] [place] [address] 27181- 7123 Nov, [facility] [id number] [place] [address] 08959- 7810 Oct, History of amputation of hallux Z89.419 [facility] [id number] [place] [address] 25110- 6514 Oct, Type 2 diabetes mellitus with diabetic polyneuropathy E11.42 [facility] [id number] [place] [address] 36531- 5262 Oct, Type 2 diabetes mellitus with diabetic polyneuropathy E11.42 [facility] [address] [address]- 3611 Oct, Acute osteomyelitis of left foot M86.172 ; Pre-op exam Z01.818 and Type 2 diabetes mellitus with diabetic polyneuropathy E11.42 [facility] [address] [address]- 2467 Oct, Foot ulcer, left, with unspecified severity L97.529 ; Acute osteomyelitis of left foot M86.172 and Type 2 diabetes mellitus with diabetic polyneuropathy E11.42 [facility] [id number] [place] [address] 90495- 7757 Sep, [facility] [id number] [place] [address] 34253- 0262 Sep, Intractable vomiting with nausea, unspecified vomiting type R11.2 and Right upper quadrant pain R10.11 [facility] [id number] [place] [address] 52732- 3148 Aug, [facility] [id number] [place] [address] 20444- 4018 Jul, [facility] [id number] [place] [address] 53326- 9914 Jul, Preop examination Z01.818 [facility] [id number] [place] [address] 21573- 9227 Jul, [facility] [address] [address]- 6131 Jul, [facility] [id number] [place] [address] 87538- 0508 Jul, Chronic osteomyelitis of left foot M86.672 and Ulcer of left foot, with unspecified severity L97.529 [facility] [address] [place] [address]- 0664 Jul, Non-pressure chronic ulcer of other part of left foot with unspecified severity L97.529 [facility] [address] [place] [address]- 1083 Jul, [facility] [id number] [place] [address] 56004- 1961 Jul, [facility] [id number] [place] [address] 13930- 7636 Jun, [facility] [id number] [place] [address] 57247- 2810 Jun, [facility] [id number] [place] [address] 47464- 7278 Jun, [facility] [id number] [place] [address] 68370- 7437 21 Jun, 2016 Right upper quadrant pain R10.11 [facility] [id number] [place] [address] 00399- 2402 20 Jun, 2016 [facility] [id number] [place] [address] 75947- 2582 19 Jun, 2016 Intractable vomiting with nausea, unspecified vomiting type R11.2 [facility] [id number] [place] [address] 07054- 2645 13 Jun, 2016 Right upper quadrant pain R10.11 ; Migraine with aura and with status migrainosus, not intractable G43.101 and Intractable vomiting with nausea, unspecified vomiting type R11.2 [facility] [id number] [place] [address] 00693- 1386 12 Jun, 2016 [facility] [id number] [place] [address] 98020- 1507 Jun, Gastroenteritis K52.9 [facility] [id number] [place] [address] 38546- 0291 May, [facility] [id number] [place] [address] 66816- 8707 May, Hypertriglyceridemia E78.1 ; Essential hypertension I10 ; Type 2 diabetes mellitus with diabetic polyneuropathy E11.42 ; Moderate persistent asthma without complication J45.40 ; Type 2 diabetes mellitus with foot ulcer E11.621 ; Other chronic pain G89.29 ; Pain in right leg M79.604 ; Pain of left leg M79.605 ; Rash and nonspecific skin eruption R21 and Anxiety disorder, unspecified F41.9 [facility] [facility] [address] 61146- 7698 May, Essential hypertension I10 ; Hypertriglyceridemia E78.1 ; Upper respiratory infection J06.9 ; Subclinical hypothyroidism E03.9 and Type 2 diabetes mellitus with diabetic polyneuropathy E11.42 [place] [address] 46087- 4963 Apr, Hypertriglyceridemia E78.1 ; Subclinical hypothyroidism E03.9 ; Essential hypertension I10 and Type 2 diabetes mellitus with diabetic polyneuropathy E11.42 [facility] [address] 35508- 1156 Mar, [place] [address] 40968- 4606 Mar, Ulcer of right heel L97.419 [facility] [id number] [place] [address] 76728- 8862 Mar, [facility] [id number] [place] [address] 48504- 8967 Mar, [facility] [id number] [place] [address] 80608- 8510 February, [place] [facility] [address] 36572- 8241 February, Ulcer of right heel L97.419 and DM neuro manif type II E11.49 [facility] [id number] [place] [address] 78537- 3236 Jan, [place] [facility] [address] 99570- 9053 Jan, Ulcer of right heel L97.419 ; Type 2 diabetes mellitus with foot ulcer E11.621 and Non-pressure chronic ulcer of other part of left foot with unspecified severity L97.529 [facility] [id number] [place] [address] 25194- 4867 Jan, [facility] [id number] [place] [address] 55437- 8594 Jan, [facility] [place] [id number] [place] [address] 93659- 9333 Jan, Infection of toenail L03.039 [place] [address] 18665- 4778 Jan, Blister of toe of left foot, initial encounter S90.425A and Type 2 diabetes mellitus with diabetic polyneuropathy E11.42 [facility] [id number] [place] [address] 46944- 0586 Jan, [facility] [id number] [place] [address] 88363 -5021 Jan, Sore throat J02.9 and Strep pharyngitis J02.0 [facility] [place] [id number] [place] [address] 55556- 3815 Dec, Type 2 diabetes mellitus with diabetic polyneuropathy E11.42 ; Upper respiratory infection J06.9 ; Cough R05 and Asthma exacerbation J45.901 [facility] [id number] [place] [address] 95133- 4933 Oct, [place] [id number] [place] [address] 97915- 5520 Oct, [facility] [id number] [place] [address] 67482- 3700 Oct, [facility] [id number] [place] [address] 26098- 1789 Oct, [facility] [id number] [place] [address] 35649- 8821 Sep, [place] [id number] [place] [address] 35202- 6915 Aug, Anxiety disorder, unspecified F41.9 and Obesity E66.9 [facility] [id number] [place] [address] 30801- 2685 Aug, Moderate persistent asthma without complication J45.[address] 09614- 9683 Aug, Anxiety disorder, unspecified F41.9 [place] [id number] [place] [address] 33261- 4217 Aug, Chronic migraine G43.709 ; Encounter for immunization Z23 ; Hypertriglyceridemia E78.1 ; Type 2 diabetes mellitus with diabetic polyneuropathy E11.42 ; Moderate persistent asthma without complication J45.40 and Morbid obesity E66.01 [place] [id number] [place] [address] 58497- 2975 Jul, [facility] [id number] [place] [address] 84502- 3306 Jul, [place] [id number] [place] [address] 27589- 0501 Jul, [facility] [id number] [place] [address] 10990- 7402 Jul, Subclinical hypothyroidism E03.9 [place] [id number] [place] [address] 85854- 9243 Jun, Essential hypertension, benign 401.1 ; Diabetic ulcer of lower extremity 250.80 ; Asthma 493.90 ; Diabetes mellitus type II, uncontrolled 250.02 and Hyperlipidemia associated with type 2 diabetes mellitus 250.80 [place] [id number] [place] [address] 48785- 7279 Jun, [facility] [place] [id number] [place] [address] 13760- 0860 Jun, [address], [place] [address]- 2719 May, [facility] [id number] [place] [address] 12581- 7903 Apr, [facility] [id number] [place] [address] 44946- 4174 Apr, Viral upper respiratory infection 465.9 and Asthma 493.90 [facility] [id number] [place] [address] 84979- 7232 Mar, Abnormal ankle brachial index 796.4 [facility] [id number] [place] [address] 77567- 8182 February, [facility] [id number] [place] [address] 91228- 6943 February, Essential hypertension, benign 401.1 [facility] [id number] [place] [address] 66600- 0189 February, Diabetic peripheral neuropathy 250.60 ; Ulcer of heel and midfoot 707.14 and Decreased pedal pulses 785.9 [facility] [id number] [place] [address] 61811- 6597 February, [facility] [id number] [place] [address] 70798- 0143 February, [facility] [id number] [place] [address] 79276- 1659 Jan, [facility] [id number] [place] [address] 59577- 0665 Jan, [facility] [id number] [place] [address] 41698- 4129 Dec, [facility] [id number] [place] [address] 07189- 0520 Dec, [facility] [address] [place] [address]- 9989 Nov, [facility] [place] [facility] [address] [id number] [place] [address]- 6157 Nov, 2014 [facility] [place] [facility] [address] [id number] [place] [address]- 3156 Nov, 2014 [facility] [place] [facility] [address] [id number] [place] [address]- 5686 Nov, 2014 [facility] [place] [facility] [address] [id number] [place] [address] 2546 Nov, 2014 [facility] [place] [facility] [address] [id number] [place] [address]- 7874 Nov, 2014 [facility] [place] [facility] [address] [id number] [place] [address]- 6116 Nov, 2014 [facility] [place] [facility] [address] [id number] [place] [address]- 6399 Nov, [facility] [place] [facility] [address] [id number] [place] [address] Nov, [facility] [place] [facility] [address] [id number] [place] [address] Oct, [facility] [place] [facility] [address] [id number] [place] [address] Oct, [facility] [place] [facility] [address] [id number] [place] [address] 2542 Oct, [facility] [place] [facility] [address] [id number] [place] [address] 2549 Oct, [facility] [place] [facility] [address] [id number] [place] [address] 2549 Oct, [facility] [place] [facility] [address] [id number] [place] [address]40 Oct, [facility] [place] [facility] [address] [id number] [place] [address] 8600 Oct, [facility] [place] [facility] [address] [id number] [place] [address] 4747 Oct, [facility] [address] [id number] [place] [address]- 7675 Oct, [facility] [place] [facility] [address] [id number] [place] [address]- 1692 Oct, [facility] [place] [facility] [address] [id number] [place] [address]- 7283 Oct, [facility] [place] [facility] [address] [id number] [place] [address]- 5597 Oct, [facility] [place] [facility] [address] [id number] [place] [address]- 7997 Oct, [facility] [place] [facility] [address] [id number] [place] [address]- 7886 Sep, [facility] [place] [facility] [address] [id number] [place] [address]- 0322 Sep, [facility] [place] [facility] [address] [id number] [place] [address]- 2190 Sep, [facility] [place] [facility] [address] [id number] [place] [address]- 6576 Sep, [facility] [place] [facility] [address] [id number] [place] [address]- 1708 Sep, [facility] [place] [facility] [address] [id number] [place] [address]- 8418 Sep, [facility] [place] [facility] [address] [id number] [place] [address]- 2477 Sep, [facility] [place] [facility] [address] [id number] [place] [address]- 2925 Sep, [facility] [place] [facility] [address] [id number] [place] [address]- 9583 Sep, [facility] [place] [facility] [address] [id number] [place] [address]- 6564 Sep, [facility] [place] [facility] [address] [id number] [place] [address] Sep, [facility] [place] [facility] [address] [id number] [place] [address] Sep, [facility] [place] [facility] [address] [id number] [place] [address]- 1602 Sep, [facility] [place] [facility] [address] [id number] [place] [address] Sep, [facility] [place] [facility] [address] [id number] [place] [address]- 9460 Sep, [facility] [place] [facility] [address] [id number] [place] [address]- 0159 Sep, [facility] [place] [facility] [address] [id number] [place] [address]- 1739 Aug, [facility] [place] [facility] [address] [id number] [place] [address]- 9097 Aug, [facility] [place] [facility] [address] [id number] [place] [address]- 3505 Aug, [facility] [place] [facility] [address] [id number] [place] [address]- 1392 Aug, [facility] [place] [facility] [address] [id number] [place] [address]- 6118 Aug, [facility] [place] [facility] [address] [id number] [place] [address]- 9027 Aug, [facility] [place] [facility] [address] [id number] [place] [address]- 1668 Aug, [facility] [place] [facility] [address] [id number] [place] [address]- 6812 Aug, [facility] [place] [facility] [address] [id number] [place] [address]- 1099 Jul, [facility] [place] [facility] [address] [id number] [place] [address]- 8616 Jul, [facility] [place] [facility] [address] [id number] [place] [address]- 4041 30 Jul, 2014 [facility] [place] [facility] [address] [id number] [place] [address]- 4081 Jul, [facility] [place] [facility] [address] [id number] [place] [address]- 7796 Jul, [facility] [place] [facility] [address] [id number] [place] [address]- 8238 Jun, [facility] [place] [facility] [address] [id number] [place] [address]- 5497 Jun, [facility] [place] [facility] [address] [id number] [place] [address]- 8855 Jun, [facility] [place] [facility] [address] [id number] [place] [address]- 8433 Jun, [facility] [place] [facility] [address] [id number] [place] [address]- 2141 Jun, [facility] [place] [facility] [address] [id number] [place] [address]- 4056 May, [facility] [place] [facility] [address] [id number] [place] [address]- 4434 May, [facility] [place] [facility] [address] [id number] [place] [address]- 8455 Apr, [facility] [place] [facility] [address] [id number] [place] [address]- 0759 Apr, [facility] [place] [facility] [address] [id number] [place] [address]- 4309 Apr, [facility] [place] [facility] [address] [id number] [place] [address]- 3754 Apr, [facility] [place] [facility] [address] [id number] [place] [address] Apr, [facility] [place] [facility] [address] [id number] [place] [address]- 4754 Apr, [facility] [place] [facility] [address] [id number] [place] [address]- 9531 Mar, [facility] [place] [facility] [address] [id number] [place] [address]- 2631 Mar, [facility] [place] [facility] [address] [id number] [place] [address]- 8782 Mar, [facility] [place] [facility] [address] [id number] [place] [address]- 6224 Mar, [facility] [place] [facility] [address] [id number] [place] [address]- 0334 Mar, [facility] [place] [facility] [address] [id number] [place] [address]- 3944 Mar, [facility] [place] [facility] [address] [id number] [place] [address]- 0118 Mar, [facility] [place] [facility] [address] [id number] [place] [address]- 8288 Mar, [facility] [place] [facility] [address] [id number] [place] [address]- 5867 Mar, [facility] [place] [facility] [address] [id number] [place] [address]- 9929 Mar, [facility] [place] [facility] [address] [id number] [place] [address]- 6870 Mar, [facility] [place] [facility] [address] [id number] [place] [address]- 6047 Mar, [facility] [place] [facility] [address] [id number] [place] [address]- 7980 Mar, [facility] [place] [facility] [address] [id number] [place] [address]- 4910 Mar, [facility] [place] [facility] [address] [id number] [place] [address]- 1654 Mar, [facility] [place] [facility] [address] [id number] [place] [address]- 6926 Mar, [facility] [place] [facility] [address] [id number] [place] [address]- 1611 February, [facility] [place] [facility] [address] [id number] [place] [address]- 7777 February, [facility] [place] [facility] [address] [id number] [place] [address]- 5021 February, [facility] [place] [facility] [address] [id number] [place] [address]- 4517 February, [facility] [place] [facility] [address] [id number] [place] [address]- 6363 February, [facility] [place] [facility] [address] [id number] [place] [address]- 5573 February, [facility] [place] [facility] [address] [id number] [place] [address]- 4154 February, [facility] [place] [facility] [address] [id number] [place] [address]- 9787 February, [facility] [place] [facility] [address] [id number] [place] [address]- 1676 Jan, [facility] [place] [facility] [address] [id number] [place] [address]- 8258 Jan, [facility] [place] [facility] [address] [id number] [place] [address]- 3182 Dec, [facility] [place] [facility] [address] [id number] [place] [address]- 1820 Dec, [facility] [place] [facility] [address] [id number] [place] [address]- 2565 Dec, [facility] [place] [facility] [address] [id number] [place] [address]- 5572 Dec, [facility] [place] [facility] [address] [id number] [place] [address]- 0221 24 Dec, 2013 [facility] [place] [facility] [address] [id number] [place] [address]- 9776 24 Dec, 2013 [facility] [place] [facility] [address] [id number] [place] [address]- 8249 Dec, [facility] [place] [facility] [address] [id number] [place] [address]- 7873 Dec, [facility] [place] [facility] [address] [id number] [place] [address]- 9343 17 Dec, 2013 [facility] [place] [facility] [address] [id number] [place] [address]- 5262 17 Dec, 2013 [facility] [place] [facility] [address] [id number] [place] [address]- 6699 Dec, [facility] [place] [facility] [address] [id number] [place] [address]- 6445 Dec, [facility] [place] [facility] [address] [id number] [place] [address]- 9503 Dec, [facility] [place] [facility] [address] [id number] [place] [address]- 9918 Dec, [facility] [place] [facility] [address] [id number] [place] [address]- 3453 Nov, [facility] [place] [facility] [address] [id number] [place] [address]- 0965 Nov, [facility] [place] [facility] [address] [id number] [place] [address]- 9592 Oct, [facility] [place] [facility] [address] [id number] [place] [address]- 6026 Oct, [facility] [place] [facility] [address] [id number] [place] [address]- 7123 Oct, [facility] [place] [facility] [address] [id number] [place] [address]- 5611 Oct, [facility] [place] [facility] [address] [id number] [place] [address]- 6434 16 Oct, 2013 [facility] [place] [facility] [address] [id number] [place] [address]- 5239 Oct, [facility] [place] [facility] [address] [id number] [place] [address]- 3736 Oct, [facility] [place] [facility] [address] [id number] [place] [address]- 8420 31 Sep, 2013 [facility] [place] [facility] [address] [id number] [place] [address]- 6167 30 Sep, 2013 [facility] [place] [facility] [address] [id number] [place] [address]- 0199 30 Sep, 2013 [facility] [place] [facility] [address] [id number] [place] [address]- 9467 Sep, [facility] [place] [facility] [address] [id number] [place] [address]- 9078 Sep, [facility] [place] [facility] [address] [id number] [place] [address]- 1628 Sep, [facility] [place] [facility] [address] [id number] [place] [address]- 1395 Sep, [facility] [place] [facility] [address] [id number] [place] [address]- 3407 Sep, [facility] [place] [facility] [address] [id number] [place] [address]- 4028 Sep, [facility] [place] [facility] [address] [id number] [place] [address] 2544 Sep, [facility] [place] [facility] [address] [id number] [place] [address]- 1476 Sep, [facility] [place] [facility] [address] [id number] [place] [address]- 9446 Sep, [facility] [place] [facility] [address] [id number] [place] [address]- 0015 Sep, [facility] [place] [facility] [address] [id number] [place] [address]- 8658 16 Sep, 2013 [facility] [place] [facility] [address] [id number] [place] [address]- 9991 Sep, [facility] [place] [facility] [address] [id number] [place] [address]- 9616 Sep, [facility] [place] [facility] [address] [id number] [place] [address]- 7590 Sep, [facility] [place] [facility] [address] [id number] [place] [address]- 5748 Sep, [facility] [place] [facility] [address] [id number] [place] [address]- 8493 Sep, [facility] [place] [facility] [address] [id number] [place] [address]- 5473 Aug, [facility] [place] [facility] [address] [id number] [place] [address]- 6751 Aug, [facility] [place] [facility] [address] [id number] [place] [address]- 8401 Aug, [facility] [place] [facility] [address] [id number] [place] [address]- 5019 Aug, [facility] [place] [facility] [address] [id number], [place] [address]- 3467 Aug, [facility] [place] [facility] [address] [id number], [place] [address]- 6586 Aug, [facility] [place] [facility] [address] [id number] [place] [address]- 1514 Aug, [facility] [place] [facility] [address] [id number][place] [address]- 4149 Aug, [facility] [place] [facility] [address] [id number], [place] [address]- 9922 Aug, [facility] [place] [facility] [address] [id number] [place] [address]- 6968 Aug, [facility] [place] [facility] [address] [id number] [place] [address]- 9452 Aug, [facility] [place] [facility] [address] [id number] [place] [address]- 6694 Aug, [facility] [place] [facility] [address] [id number] [place] [address]- 8075 Aug, [facility] [place] [facility] [address] [id number] [place] [address]- 6734 Aug, [facility] [place] [facility] [address] [id number] [place] [address]- 7975 Aug, [facility] [place] [facility] [address] [id number] [place] [address]- 6983 Aug, [facility] [place] [facility] [address] [facility] [id number] [place] [address]- 8818 Aug, [facility] [place] [facility] [address] [id number] [place] [address]- 7243 Jul, [facility] [place] [facility] [address] [id number] [place] [address]- 6724 Jul, [facility] [place] [facility] [address] [facility] [id number] [place] [address]- 5591 Jul, [facility] [place] [facility] [address] [id number] [place] [address]- 3103 Jul, [facility] [place] [facility] [address] [id number], [place] [address]- 6297 Jul, [facility] [place] [facility] [address] [id number] [place] [address]- 7241 Jul, [facility] [place] [facility] [address] [facility] [id number] [place] [address]200 Jul, [facility] [place] [facility] [address] [id number] [address]99 Jun, [facility] [address] [id number], [place] [address]- 2923 20 Jun, 2012 [facility] [address] [id number] [place] [address]- 2866 17 Jun, 2012 [facility] [address] [id number], [place] [address]- 9616 10 Jun, 2012 [facility] [address] [id number] [place] [address]- 1479 06 Jun, 2012 [facility] [address] [id number] [place] [address]- 0701 06 Jun, 2012 [facility] [address] [id number] [place] [address]- 1604 05 Jun, 2012 [facility] [address] [facility] [id number] [place] [address]- 6124 03 Jun, 2012 [facility] [address] [facility] [id number], [place] [address]- 4475 May, [facility] [address] [facility] [id number], [place] [address]- 0465 May, [facility] [address] [facility] [id number], [place] [address]- 3959 15 May, 2013 [facility] [address] [facility] [id number], [place] [address]- 8625 May, [facility] [address] [id number], [place] [address]- 6735 May, [facility] [address] [facility] [id number], [place] [address]- 7740 May, [facility] [address] [facility] [id number], [place] [address]- 4742 May, [facility] [address] [facility] [id number], [place] [address]- 1190 May, IMMUNIZATIONS No Known Immunizations SOCIAL HISTORY Never Assessed REASON FOR VISIT Rx from previous encounter PLAN OF CARE VITAL SIGNS MEDICATIONS Medication [...] [facility] 1995 Surgical History salpingectomy Davida Antunez Surgical History bladder surgery-stretch [facility] 2003 Surgical History exploratory laparoscopy Davida Walsh [facility] 1995 Surgical History amputation, toe (R great) Surgical History amputation, (R forefoot) 2014 Surgical History amputation, toe Left second 12/2016 Surgical History amputation, 4th left toe 02/2017 Hospitalization History Left foot cellulitis, left 2nd toe amputation-[facility] 12/23 Hospitalization History Surgery Hospitalizations
--- OUTSIDE RECORDS SUMMARY | 2018-08-22 09:10 | XMS REPORT ---
Author Author LUDIVINA STEPHANIE [facility] Address [address] [place] [address] Care Team Providers Care Nuclear Control Room Operator Name Role Phone FARNAZ FLORENCEY Unavailable PROBLEMS Type Condition ICD9-CM Code NHF89-SZ Code Onset Dates Condition Status SNOMED Code Problem Subclinical hypothyroidism E03.9 Active 84263232 Problem Hypertriglyceridemia E78.1 Active 482486897 Problem Type 2 diabetes mellitus with diabetic polyneuropathy E11.42 Active 318505524 Problem Type 2 diabetes mellitus with diabetic chronic 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 Active 221736658 Problem Other chronic pain G89.29 Active 57970540 Problem Type 2 diabetes mellitus with other skin complications E11.628 Active 50416886 Problem Pain in left foot M79.672 Active 21491421 Problem Irregular menstrual cycle N92.6 Active 23650722 Problem Pain in right foot M79.671 Active 34407569 Problem Tonsillolith J35.8 Active 0982531 Problem Chronic prescription opiate use Z79.891 Active 905625499 Problem Seasonal allergic rhinitis due to pollen J30.1 Active 04285743 Problem Asthma exacerbation, mild J45.901 Active 037613173 Problem Chronic kidney disease, stage III (moderate) N18.3 Active 731596649 Problem Chronic migraine G43.709 Active 25950111 Problem Moderate persistent asthma without complication J45.40 Active 161824129 Problem Intrinsic eczema L20.84 Active 70261412 Problem Severe episode of recurrent major depressive disorder, without psychotic features F33.2 Active 68862957 Problem Non-pressure chronic ulcer of right heel and midfoot limited to breakdown of skin L97.411 Active 952225761 Problem Ulcer of right heel L97.419 Active 548948977 Problem Obesity E66.9 Active 689061309 Problem Type 2 diabetes mellitus with foot ulcer E11.621 Active 39723259 Problem Essential hypertension I10 Active 45141939 Problem Anxiety disorder, unspecified F41.9 Active 556368528 Problem Type 2 diabetes mellitus with other specified complication E11.69 Active 995180496 Problem Status post amputation of toe of left foot Z89.422 Active 559636157 Problem DM neuro manif type II E11.49 Active 78324979 Problem History of amputation of hallux Z89.419 Active 566047057 ALLERGIES No Information ENCOUNTERS Encounter Location Date Diagnosis [facility] [address] [address] 12 Mar, 2018 Moderate persistent asthma without complication J45.40 [facility] [address] [address]- [address] 07 Mar, 2018 Moderate persistent asthma without complication J45.40 [facility] [address] [address]- 6271 Mar, [facility] [address] 31543- 0808 February, Chronic migraine G43.709 [facility] [address] [address]- 4463 February, Chronic migraine G43.709 [facility] [address] 0[address]- 1387 February, [facility] [address] [address]- 1360 February, [facility] [address] 12[address]- 8981 February, Type 2 diabetes mellitus with diabetic polyneuropathy E11.42 ; Moderate persistent asthma without complication J45.40 ; Type 2 diabetes mellitus with foot ulcer E11.621 ; Non-pressure chronic ulcer of right heel and midfoot limited to breakdown of skin L97.411 ; Chronic migraine G43.709 and BMI 60.0-69.9, adult Z68.44 [facility] [id number] [place] [address]37 -1636 Jan, 2018 Asthma exacerbation, mild J45.901 ; Seasonal allergic rhinitis due to pollen J30.1 and BMI 60.0-69.9, adult Z68.44 [facility] [id number] [place] [address] 16096- 8641 Jan, [place] [address] 07[address]- 4212 Jan, Other chronic pain G89.29 [facility] [id number] [place] [address] 21577- 8263 30 Dec, 2017 Type 2 diabetes mellitus with diabetic polyneuropathy E11.42 [facility] [id number] [place] [address] 14920- 7451 Dec, Type 2 diabetes mellitus with diabetic polyneuropathy E11.42 [facility] [address] [address]- 8358 15 Dec, 2017 [place] [address] 08250- 7822 14 Dec, 2017 [facility] [id number] [place] [address] 17411- 2968 13 Dec, 2017 Chronic kidney disease, stage III (moderate) N18.3 [facility] [id number] [place] [address] 51558 -9303 09 Dec, 2017 Nausea R11.0 and Diarrhea, unspecified type R19.7 [facility] [id number] [place] [address] 26022- 4510 07 Dec, 2017 Chronic kidney disease, stage III (moderate) N18.3 and Type 2 diabetes mellitus with diabetic polyneuropathy E11.42 [facility] [id number] [place] [address] 41665- 1242 Dec, [place] [address] 73742- 3269 Nov, Ulcer of right heel L97.419 and Type 2 diabetes mellitus with diabetic polyneuropathy E11.42 [facility] [id number] [place] [address] [id number] Nov, Dental examination Z01.20 [facility] [id number] [place] [address] 35047- 0523 Nov, Open wound of right foot, initial encounter S91.301A [facility] [id number] [place] [address] 42422 -7921 Nov, Open wound of right foot, initial encounter S91.301A ; Non- intractable vomiting with nausea, unspecified vomiting type R11.2 and BMI 60.0- 69.9, adult Z68.44 [facility] [id number] [place] [address] 13405- 4987 Nov, [place] [address] 31728- 7749 Nov, Other chronic pain G89.29 [facility] [address] 45710- 0222 Oct, Cellulitis of right lower limb L03.115 [facility] [id number] [place] [address] 01741- 4190 Oct, [facility] [address] 74934- 9812 Oct, [facility] [id number] [place] [address] 06712- 2694 Oct, Cat scratch W55.03XA ; Cellulitis of right lower limb L03.115 ; Acute nasopharyngitis J00 ; BMI 60.0-69.9, adult Z68.44 and Cough R05 [facility] [id number] [place] [address] 32814- 0544 Oct, Cat scratch W55.03XA ; Cutaneous abscess of right lower extremity L02.415 and Cellulitis of right lower limb L03.115 [facility] [id number] [place] [address] 75084- 4402 Oct, Type 2 diabetes mellitus with diabetic polyneuropathy E11.42 [facility] [place] [address] [place] [address] 0191 Oct, Other chronic pain G89.29 [facility] [id number] [place] [address] 54554- 4500 Aug, [facility] [id number] [place] [address] 71374- 1444 Jul, Other chronic pain G89.29 [facility] [address] 89649- 4282 Jul, [place] [address] 26969- 1583 Jul, Chronic kidney disease, stage III (moderate) N18.3 [facility] [place] [address] 35878- 8017 Jul, Type 2 diabetes mellitus with diabetic polyneuropathy E11.42 ; Essential hypertension I10 ; Irregular menstrual cycle N92.6 ; Hypertriglyceridemia E78.1 ; Anxiety disorder, unspecified F41.9 ; Severe episode of recurrent major depressive disorder, without psychotic features F33.2 ; Tonsillolith J35.8 ; Intrinsic eczema L20.84 ; Subclinical hypothyroidism E03.9 ; Viral pharyngitis J02.9 and Encounter for immunization Z23 [facility] [id number] [place] [address] 15732- 0112 13 Jun, 2017 Essential hypertension I10 [facility] [id number] [place] [address] 82744- 6248 08 Jun, 2017 [facility] [id number] [place] [address] 59587- 6571 Jun, [facility] [id number] [place] [address] 75239- 5700 May, Moderate persistent asthma without complication J45.40 [facility] [id number] [place] [address] 71682- 9069 May, Pain in right foot M79.671 ; Pain in left foot M79.672 ; Other chronic pain G89.29 and Chronic prescription opiate use Z79.891 [facility] [id number] [place] [address] 29546- 6859 May, [facility] [id number] [place] [address] 20547- 6250 May, [facility] [id number] [place] [address] 67940- 0496 Apr, [facility] [id number] [place] [address] 96970- 2732 Apr, Chronic migraine G43.709 [facility] [address] 74002- 5817 Apr, Essential hypertension I10 ; Hypertriglyceridemia E78.1 and Chronic migraine G43.709 [facility] [id number] [place] [address] 73605- 0726 Apr, [facility] [id number] [place] [address] 33070- 2063 Apr, Sore throat J02.9 [facility] [id number] [place] [address] 09854- 4838 Apr, [facility] [id number] [place] [address] 88298- 8141 Mar, Strep pharyngitis J02.0 and Non-intractable vomiting with nausea, unspecified vomiting type R11.2 [facility] [id number] [place] [address] 24715- 9905 Mar, [facility] [id number] [place] [address] 95942- 2418 Mar, [facility] [id number] [place] [address] 56432- 0493 Mar, [facility] [id number] [place] [address] 76500- 9564 Mar, Type 2 diabetes mellitus with diabetic polyneuropathy E11.42 ; Moderate persistent asthma without complication J45.40 ; Status post amputation of toe of left foot Z89.422 ; Acute seasonal allergic rhinitis, unspecified trigger J30.2 and Left shoulder pain, unspecified chronicity M25.512 [facility] [id number] [place] [address] 97257- 6109 Mar, [facility] [place] [id number] [place] [address] 47301- 4452 February, Pre-op evaluation Z01.818 ; Type 2 diabetes mellitus with diabetic polyneuropathy E11.42 and Type 2 diabetes mellitus with foot ulcer E11.621 [facility] [id number] [place] [address] 40974- 6371 February, [facility] [id number] [place] [address] 70801- 9289 February, [facility] [id number] [place] [address] 31372- 3258 February, Toe infection L08.9 and Type 2 diabetes mellitus with other specified complication E11.69 [facility] [id number] [place] [address] 90806- 4380 February, [facility] [id number] [place] [address] 41621- 8301 Jan, Type 2 diabetes mellitus with diabetic polyneuropathy E11.42 [facility] [id number] [place] [address] 28753- 0470 Jan, [facility] [place] [id number] [place] [address] 92784- 3197 Jan, Right upper quadrant pain R10.11 and Intractable vomiting with nausea, unspecified vomiting type R11.2 [facility] [id number] [place] [address] 30974- 1705 Jan, Hypertriglyceridemia E78.1 and Essential hypertension I10 [facility] [id number] [place] [address] 28329- 7761 Jan, Essential hypertension I10 ; Type 2 diabetes mellitus with diabetic polyneuropathy E11.42 and Hypertriglyceridemia E78.1 [facility] [id number] [place] [address] 20779- 4886 16 Dec, 2016 Type 2 diabetes mellitus with diabetic polyneuropathy E11.42 [facility] [id number] [place] [address] 83993- 8950 15 Dec, 2016 Hypertriglyceridemia E78.1 ; Essential hypertension I10 ; Type 2 diabetes mellitus with diabetic polyneuropathy E11.42 ; Anxiety disorder , unspecified F41.9 and Moderate persistent asthma without complication J45.40 [facility] [id number] [place] [address] 81435- 8422 Dec, Type 2 diabetes mellitus with diabetic polyneuropathy E11.42 [facility] [id number] [place] [address] [id number] Dec, [facility] [address] 66459- 7559 Nov, [facility] [id number] [place] [address] 80065- 2832 Nov, [facility] [id number] [place] [address] 21457- 4289 Nov, [facility] [id number] [place] [address] 66516- 5666 Nov, Toe infection L08.9 [facility] [id number] [place] [address] 57003- 9790 Nov, [facility] [id number] [place] [address] 45694- 2492 Oct, History of amputation of hallux Z89.419 [facility] [id number] [place] [address] 66639- 7167 Oct, Type 2 diabetes mellitus with diabetic polyneuropathy E11.42 [facility] [id number] [place] [address] 92547- 2126 Oct, Type 2 diabetes mellitus with diabetic polyneuropathy E11.42 [facility] [address] [address]- 7475 Oct, Acute osteomyelitis of left foot M86.172 ; Pre-op exam Z01.818 and Type 2 diabetes mellitus with diabetic polyneuropathy E11.42 [facility] [address] [address]- 3878 Oct, Foot ulcer, left, with unspecified severity L97.529 ; Acute osteomyelitis of left foot M86.172 and Type 2 diabetes mellitus with diabetic polyneuropathy E11.42 [facility] [id number] [place] [address] 28686- 3679 Sep, [facility] [id number] [place] [address] 39072- 9494 Sep, Intractable vomiting with nausea, unspecified vomiting type R11.2 and Right upper quadrant pain R10.11 [facility] [id number] [place] [address] 27052- 1900 Aug, [facility] [id number] [place] [address] 44846- 1113 Jul, [facility] [id number] [place] [address] 69783- 6867 Jul, Preop examination Z01.818 [facility] [id number] [place] [address] 00797- 3510 Jul, [facility] [address] [address]- 8415 Jul, [facility] [id number] [place] [address] 16223- 7624 Jul, Chronic osteomyelitis of left foot M86.672 and Ulcer of left foot, with unspecified severity L97.529 [facility] [address] [address]- 3881 Jul, Non-pressure chronic ulcer of other part of left foot with unspecified severity L97.529 [facility] [address] [address]- 8074 Jul, [facility] [id number] [place] [address] 94983- 4657 Jul, [facility] [id number] [place] [address] 81925- 6601 Jun, [facility] [id number] [place] [address] 97980- 2863 Jun, [facility] [id number] [place] [address] 20268- 7648 Jun, [facility] [id number] [place] [address] 16582- 7374 21 Jun, 2016 Right upper quadrant pain R10.11 [facility] [id number] [place] [address] 70857- 3885 20 Jun, 2016 [facility] [id number] [place] [address] 43954- 9156 19 Jun, 2016 Intractable vomiting with nausea, unspecified vomiting type R11.2 [facility] [id number] [place] [address] 24216- 8662 13 Jun, 2016 Right upper quadrant pain R10.11 ; Migraine with aura and with status migrainosus, not intractable G43.101 and Intractable vomiting with nausea, unspecified vomiting type R11.2 [facility] [address] [place] [address] 80654- 9007 12 Jun, 2016 [facility] [id number] [place] [address] 48334- 9555 Jun, Gastroenteritis K52.9 [facility] [id number] [place] [address] 32197- 1709 May, [facility] [id number] [place] [address] 87990- 4570 May, Hypertriglyceridemia E78.1 ; Essential hypertension I10 ; Type 2 diabetes mellitus with diabetic polyneuropathy E11.42 ; Moderate persistent asthma without complication J45.40 ; Type 2 diabetes mellitus with foot ulcer E11.621 ; Other chronic pain G89.29 ; Pain in right leg M79.604 ; Pain of left leg M79.605 ; Rash and nonspecific skin eruption R21 and Anxiety disorder, unspecified F41.9 [place] [address] 92264- 5973 May, Essential hypertension I10 ; Hypertriglyceridemia E78.1 ; Upper respiratory infection J06.9 ; Subclinical hypothyroidism E03.9 and Type 2 diabetes mellitus with diabetic polyneuropathy E11.42 [place] [address] 72896- 6486 Apr, Hypertriglyceridemia E78.1 ; Subclinical hypothyroidism E03.9 ; Essential hypertension I10 and Type 2 diabetes mellitus with diabetic polyneuropathy E11.42 [facility] [address] 52361- 6602 Mar, [place] [address] 94895- 5137 Mar, Ulcer of right heel L97.419 [facility] [id number] [place] [address] 04588- 9335 Mar, [facility] [place] [id number] [place] [address] 39330- 6529 Mar, [facility] [id number] [place] [address] 20727- 0860 February, [place] [address] 86655- 5707 February, Ulcer of right heel L97.419 and DM neuro manif type II E11.49 [facility] [id number] [place] [address] 17974- 0900 Jan, [place] [address] 38564- 7890 Jan, Ulcer of right heel L97.419 ; Type 2 diabetes mellitus with foot ulcer E11.621 and Non-pressure chronic ulcer of other part of left foot with unspecified severity L97.529 [facility] [id number] [place] [address] 34455- 2581 Jan, [facility] [id number] [place] [address] 52409- 9436 Jan, [facility] [id number] [place] [address] 88298- 3868 Jan, Infection of toenail L03.039 [place] [address] 29989- 4373 Jan, Blister of toe of left foot, initial encounter S90.425A and Type 2 diabetes mellitus with diabetic polyneuropathy E11.42 [facility] [id number] [place] [address] 97501- 3697 Jan, [facility] [id number] [place] [address] 08439 -5833 Jan, Sore throat J02.9 and Strep pharyngitis J02.0 [facility] [id number] [place] [address] 87037- 7878 Dec, Type 2 diabetes mellitus with diabetic polyneuropathy E11.42 ; Upper respiratory infection J06.9 ; Cough R05 and Asthma exacerbation J45.901 [facility] [id number] [place] [address] 89033- 6160 Oct, [facility] [id number] [place] [address] 51497- 0911 Oct, [facility] [id number] [place] [address] 64587- 7020 Oct, [facility] [id number] [place] [address] 51472- 9487 Oct, [facility] [id number] [place] [address] 81417- 0080 Sep, [facility] [place] [id number] [place] [address] 77057- 9223 Aug, Anxiety disorder, unspecified F41.9 and Obesity E66.9 [facility] [id number] [place] [address] 23697- 7284 Aug, Moderate persistent asthma without complication J45.[address] 14083- 9197 Aug, Anxiety disorder, unspecified F41.9 [place] [id number] [place] [address] 54674- 4968 Aug, Chronic migraine G43.709 ; Encounter for immunization Z23 ; Hypertriglyceridemia E78.1 ; Type 2 diabetes mellitus with diabetic polyneuropathy E11.42 ; Moderate persistent asthma without complication J45.40 and Morbid obesity E66.01 [place] [id number] [place] [address] 37432- 0095 Jul, [facility] [id number] [place] [address] 86144- 3468 Jul, [place] [id number] [place] [address] 41146- 4688 Jul, [facility] [id number] [place] [address] 01875- 6045 Jul, Subclinical hypothyroidism E03.9 [place] [id number] [place] [address] 16434- 1667 Jun, Essential hypertension, benign 401.1 ; Diabetic ulcer of lower extremity 250.80 ; Asthma 493.90 ; Diabetes mellitus type II, uncontrolled 250.02 and Hyperlipidemia associated with type 2 diabetes mellitus 250.80 [facility] [id number] [place] [address] 45589- 4958 Jun, [facility] [address] [address] [id number] [place] [address] [phone] Jun, [id number] [address]84 May, [facility] [id number] [place] [address] [phone] Apr, [facility] [id number] [place] [address] [id number] [phone] Apr, Viral upper respiratory infection 465.9 and Asthma 493.90 [facility] [id number] [place] [address] [id number]- [phone] Mar, Abnormal ankle brachial index 796.4 [facility] [id number] [place] [address] [id number]- [phone] February, [facility] [id number] [place] [address] [phone]- [phone] February, Essential hypertension, benign 401.1 [facility] [id number] [place] [address] [id number]- [phone] February, Diabetic peripheral neuropathy 250.60 ; Ulcer of heel and midfoot 707.14 and Decreased pedal pulses 785.9 [facility] [id number] [place] [address] 01526- 2485 February, [facility] [id number] [place] [address] [phone]- [phone] February, [facility] [id number] [place] [address] [phone] Jan, [facility] [id number] [place] [address] [id number]- [phone] Jan, [facility] [id number] [place] [address]43 Dec, [facility] [place] [facility] [id number] [place] [address]- 5433 Dec, [facility] [place] [facility] [id number] [address] Nov, [facility] [place] [facility] [address] [id number] [place] [address] Nov, 2014 [facility] [place] [facility] [address] [id number] [place] [address]- 7316 Nov, 2014 [facility] [place] [facility] [address] [id number] [place] [address] 7156 Nov, 2014 [facility] [place] [facility] [address] [id number] [place] [address] 2546 Nov, 2014 [facility] [place] [facility] [address] [id number] [place] [address]- 7253 Nov, 2014 [facility] [place] [facility] [address] [id number] [place] [address]- 4136 Nov, 2014 [facility] [place] [facility] [address] [id number] [place] [address]- 1167 Nov, [facility] [place] [facility] [address] [id number] [place] [address]- 9211 Nov, [facility] [place] [facility] [address] [id number] [place] [address]- 2415 Oct, [facility] [place] [facility] [address] [id number] [place] [address]- 8256 Oct, [facility] [place] [facility] [address] [id number] [place] [address] 2541 Oct, [facility] [place] [facility] [address] [id number] [place] [address]- 2548 Oct, [facility] [place] [facility] [address] [id number] [place] [address] 2544 Oct, [facility] [place] [facility] [address] [id number] [place] [address]- 2549 Oct, [facility] [place] [facility] [address] [id number] [place] [address]- 7448 Oct, [facility] [place] [facility] [address] [id number] [place] [address]- 3517 Oct, [facility] [address] [id number] [place] [address]- 1262 Oct, [facility] [place] [facility] [address] [id number] [place] [address]- 1576 Oct, [facility] [place] [facility] [address] [id number] [place] [address]- 1063 Oct, [facility] [place] [facility] [address] [id number] [place] [address]- 3205 Oct, [facility] [place] [facility] [address] [id number] [place] [address]- 3541 Oct, [facility] [place] [facility] [address] [id number] [place] [address]- 2337 Sep, [facility] [place] [facility] [address] [id number] [place] [address]- 2350 Sep, [facility] [place] [facility] [address] [id number] [place] [address]- 7122 Sep, [facility] [place] [facility] [address] [id number] [place] [address]- 6334 Sep, [facility] [place] [facility] [address] [id number] [place] [address]- 1185 Sep, [facility] [place] [facility] [address] [id number] [place] [address]- 7556 Sep, [facility] [place] [facility] [address] [id number] [place] [address]- 5199 Sep, [facility] [place] [facility] [address] [id number] [place] [address]- 1811 Sep, [facility] [place] [facility] [address] [id number] [place] [address]- 7573 Sep, [facility] [place] [facility] [address] [id number] [place] [address]- 5517 Sep, [facility] [place] [facility] [address] [id number] [place] 6671 Sep, [facility] [place] [facility] [address] [id number] [place] 4464 Sep, [facility] [place] [facility] [address] [id number] [place] [address]- 2620 Sep, [facility] [place] [facility] [address] [id number] [place] [address]174 Sep, [facility] [place] [facility] [address] [id number] [place] [address]- 5816 Sep, [facility] [place] [facility] [address] [id number] [place] [address]- 8751 Sep, [facility] [place] [facility] [address] [id number] [place] [address]- 6784 Aug, [facility] [place] [facility] [address] [id number] [place] [address]- 0618 Aug, [facility] [place] [facility] [address] [id number] [place] [address]- 4790 Aug, [facility] [place] [facility] [address] [id number] [place] [address]- 0981 Aug, [facility] [place] [facility] [address] [id number] [place] [address]- 8018 Aug, [facility] [place] [facility] [address] [id number] [place] [address]- 0296 Aug, [facility] [place] [facility] [address] [id number] [place] [address]- 3376 Aug, [facility] [place] [facility] [address] [id number] [place] [address]- 8672 Aug, [facility] [place] [facility] [address] [id number] [place] [address]- 3773 Jul, [facility] [place] [facility] [address] [id number] [place] [address]- 4278 Jul, [facility] [place] [facility] [address] [id number] [place] [address]- 6326 30 Jul, 2014 [facility] [place] [facility] [address] [id number] [place] [address]- 8876 Jul, [facility] [place] [facility] [address] [id number] [place] [address]- 8272 Jul, [facility] [place] [facility] [address] [id number] [place] [address]- 6214 Jun, [facility] [place] [facility] [address] [id number] [place] [address]- 8309 Jun, [facility] [place] [facility] [address] [id number] [place] [address]- 5192 Jun, [facility] [place] [facility] [address] [id number] [place] [address]- 4950 Jun, [facility] [place] [facility] [address] [id number] [place] [address]- 9429 Jun, [facility] [place] [facility] [address] [id number] [place] [address]- 4139 May, [facility] [place] [facility] [address] [id number] [place] [address]- 5704 May, [facility] [place] [facility] [address] [id number] [place] [address]- 8953 Apr, [facility] [place] [facility] [address] [id number] [place] [address]- 3023 Apr, [facility] [place] [facility] [address] [id number] [place] [address]- 0608 Apr, [facility] [place] [facility] [address] [id number] [place] [address]- 4177 Apr, [facility] [place] [facility] [address] [id number] [place] 4618 Apr, [facility] [place] [facility] [address] [id number] [place] [address]- 3164 Apr, [facility] [place] [facility] [address] [id number] [place] [address]- 4135 Mar, [facility] [place] [facility] [address] [id number] [place] [address]- 3000 Mar, [facility] [place] [facility] [address] [id number] [place] [address]- 8398 Mar, [facility] [place] [facility] [address] [id number] [place] [address]- 2217 Mar, [facility] [place] [facility] [address] [id number] [place] [address]- 2878 Mar, [facility] [place] [facility] [address] [id number] [place] [address]- 2192 Mar, [facility] [place] [facility] [address] [id number] [place] [address]- 1094 Mar, [facility] [place] [facility] [address] [id number] [place] [address]- 8948 Mar, [facility] [place] [facility] [address] [id number] [place] [address]- 8663 Mar, [facility] [place] [facility] [address] [id number] [place] [address]- 5678 Mar, [facility] [place] [facility] [address] [id number] [place] [address]- 8636 Mar, [facility] [place] [facility] [address] [id number] [place] [address]- 9450 Mar, [facility] [place] [facility] [address] [id number] [place] [address]- 6460 Mar, [facility] [place] [facility] [address] [id number] [place] [address]- 9908 Mar, [facility] [place] [facility] [address] [id number] [place] [address]- 8210 Mar, [facility] [place] [facility] [address] [id number] [place] [address]- 7395 Mar, [facility] [place] [facility] [address] [id number] [place] [address]- 0220 February, [facility] [place] [facility] [address] [id number] [place] [address]- 8713 February, [facility] [place] [facility] [address] [id number] [place] [address]- 8752 February, [facility] [place] [facility] [address] [id number] [place] [address]- 6405 February, [facility] [place] [facility] [address] [id number] [place] [address]- 5818 February, [facility] [place] [facility] [address] [id number] [place] [address]- 3965 February, [facility] [place] [facility] [address] [id number] [place] [address]- 6891 February, [facility] [place] [facility] [address] [id number] [place] [address]- 5602 February, [facility] [place] [facility] [address] [id number] [place] [address]- 4680 Jan, [facility] [place] [facility] [address] [id number] [place] [address]- 0454 Jan, [facility] [place] [facility] [address] [id number] [place] [address]- 9044 Dec, [facility] [place] [facility] [address] [id number] [place] [address]- 7951 Dec, [facility] [place] [facility] [address] [id number] [place] [address]- 4871 Dec, [facility] [place] [facility] [address] [id number] [place] [address]- 5467 Dec, [facility] [place] [facility] [address] [id number] [place] [address]- 1069 24 Dec, 2013 [facility] [place] [facility] [address] [id number] [place] [address]- 6314 24 Dec, 2013 [facility] [place] [facility] [address] [id number] [place] [address]- 0331 Dec, [facility] [place] [facility] [address] [id number] [place] [address]- 7426 Dec, [facility] [place] [facility] [address] [id number] [place] [address]- 9800 17 Dec, 2013 [facility] [place] [facility] [address] [id number] [place] [address]- 2686 17 Dec, 2013 [facility] [place] [facility] [address] [id number] [place] [address]- 6816 Dec, [facility] [place] [facility] [address] [id number] [place] [address]- 6842 Dec, [facility] [place] [facility] [address] [id number] [place] [address]- 1489 Dec, [facility] [place] [facility] [address] [id number] [place] [address]- 1123 Dec, [facility] [place] [facility] [address] [id number] [place] [address]- 8981 Nov, [facility] [place] [facility] [address] [id number] [place] [address]- 0945 Nov, [facility] [place] [facility] [address] [id number] [place] [address]- 3818 Oct, [facility] [place] [facility] [address] [id number] [place] [address]- 9630 Oct, [facility] [place] [facility] [address] [id number] [place] [address]- 5615 Oct, [facility] [place] [facility] [address] [id number] [place] [address]- 6793 Oct, [facility] [place] [facility] [address] [id number] [place] [address]- 1860 16 Oct, 2013 [facility] [place] [facility] [address] [id number] [place] [address]- 8232 Oct, [facility] [place] [facility] [address] [id number] [place] [address]- 2586 Oct, [facility] [place] [facility] [address] [id number] [place] [address]- 7984 31 Sep, 2013 [facility] [place] [facility] [address] [id number] [place] [address]- 7884 30 Sep, 2013 [facility] [place] [facility] [address] [id number] [place] [address]- 3662 30 Sep, 2013 [facility] [place] [facility] [address] [id number] [place] [address]- 4620 Sep, [facility] [place] [facility] [address] [id number] [place] [address]- 2342 Sep, [facility] [place] [facility] [address] [id number] [place] [address]- 8612 Sep, [facility] [place] [facility] [address] [id number] [place] [address]- 5036 Sep, [facility] [place] [facility] [address] [id number] [place] [address]- 2277 Sep, [facility] [place] [facility] [address] [id number] [place] [address]- 9991 Sep, [facility] [place] [facility] [address] [id number] [place] [address] 2549 Sep, [facility] [place] [facility] [address] [id number] [place] [address]- 6506 Sep, [facility] [place] [facility] [address] [id number] [place] [address]- 5006 Sep, [facility] [place] [facility] [address] [id number] [place] [address]- 6668 Sep, [facility] [place] [facility] [address] [id number] [place] [address]- 1866 16 Sep, 2013 [facility] [place] [facility] [address] [id number] [place] [address]- 6249 Sep, [facility] [place] [facility] [address] [id number] [place] [address]- 7577 Sep, [facility] [place] [facility] [address] [id number] [place] [address]- 0660 Sep, [facility] [place] [facility] [address] [id number] [place] [address]- 4582 Sep, [facility] [place] [facility] [address] [id number] [place] [address]- 6440 Sep, [facility] [place] [facility] [address] [id number] [place] [address]- 5536 Aug, [facility] [place] [facility] [address] [id number] [place] [address]- 0174 Aug, [facility] [place] [facility] [address] [id number] [place] [address]- 2097 Aug, [facility] [place] [facility] [address] [id number] [place] [address]- 2372 Aug, [facility] [place] [facility] [address] [id number], [place] [address]- 7320 Aug, [facility] [place] [facility] [address] [id number], [place] [address]- 3509 Aug, [facility] [place] [facility] [address] [id number] [place] [address]- 4352 Aug, [facility] [place] [facility] [address] [id number], [place] [address]- 6704 Aug, [facility] [place] [facility] [address] [id number], [place] [address]- 4299 Aug, [facility] [place] [facility] [address] [id number] [place] [address]- 7695 Aug, [facility] [place] [facility] [address] [id number] [place] [address]- 5704 Aug, [facility] [place] [facility] [address] [id number] [place] [address]- 4704 Aug, [facility] [place] [facility] [address] [id number] [place] [address]- 3926 Aug, [facility] [place] [facility] [address] [id number] [place] [address]- 3092 Aug, [facility] [place] [facility] [address] [id number] [place] [address]- 7002 Aug, [facility] [place] [facility] [address] [id number] [place] [address]- 5059 Aug, [facility] [place] [facility] [address] [facility] [id number] [place] [address]- 3050 Aug, [facility] [place] [facility] [address] [id number] [place] [address]- 3712 Jul, [facility] [place] [facility] [address] [id number] [place] [address]- 5152 Jul, [facility] [place] [facility] [address] [facility] [id number] [place] [address]- 3890 Jul, [facility] [place] [facility] [address] [id number] [place] [address]- 0452 Jul, [facility] [place] [facility] [address] [id number], [place] [address]- 9659 Jul, [facility] [place] [facility] [address] [id number] [place] [address]- 9307 Jul, [facility] [place] [facility] [address] [facility] [id number] [place] 0547 Jul, [facility] [place] [facility] [address] [id number] [address]008 Jun, [facility] [place] [facility] [address] [id number] [place] [address]- 6850 20 Jun, 2012 [facility] [place] [facility] [address] [id number] [place] [address]- 2123 17 Jun, 2012 [facility] [place] [facility] [address] [id number] [place] [address]- 7378 10 Jun, 2012 [facility] [place] [facility] [address] [id number] [place] [address]- 2182 06 Jun, 2012 [facility] [place] [facility] [address] [id number] [place] [address]- 2914 06 Jun, 2012 [facility] [place] [facility] [address] [id number] [place] [address]- 3623 05 Jun, 2012 [facility] [place] [facility] [address] [facility] [id number] [place] [address]- 5726 03 Jun, 2012 [facility] [place] [facility] [address] [facility] [id number], [place] [address]- 6936 May, [facility] [place] [facility] [address] [facility] [id number] [place] [address]- 6024 May, [facility] [place] [facility] [address] [id number], [place] [address] 9809 15 May, 2013 [facility] [place] [facility] [address] [id number], [place] [address]- 0826 May, [facility] [place] [facility] [address] [facility] [id number], [place] [address]- 1910 May, [facility] [place] [facility] [address] [facility] [id number], [place] [address]- 1933 May, [facility] [place] [facility] [address] [facility] [id number], [place] [address]- 3884 May, [facility] [place] [facility] [address] [facility] [id number], [place] [address]- 0421 May, IMMUNIZATIONS No Known Immunizations SOCIAL HISTORY Never Assessed REASON FOR VISIT MTM (Medication Therapy Management) PLAN OF CARE VITAL SIGNS MEDICATIONS Medication [...] of feet Surgical History appendectomy Davida Walsh [facility] 1995 Surgical History salpingectomy [facility] Surgical History bladder surgery-stretch [facility] 1995 Surgical History amputation, toe (R great) Surgical History amputation, (R forefoot) 2014 Surgical History amputation, toe Left second 12/2016 Surgical History amputation, 4th left toe 02/2017 Hospitalization History Left foot cellulitis, left 2nd toe amputation-[facility] 12/23 Hospitalization History Surgery Hospitalizations
--- OUTSIDE RECORDS SUMMARY | 2018-08-22 09:11 | XMS REPORT ---
Author Author LUDIVINA STEPHANIE [facility] Address [address] [place] [address] Care Team Providers Care Aviation Safety Officer Name Role Phone FARNAZ FLORENCEY Unavailable PROBLEMS Type Condition ICD9-CM Code [id number] Code Onset Dates Condition Status SNOMED Code Problem Subclinical hypothyroidism E03.9 Active 55485259 Problem Hypertriglyceridemia E78.1 Active 267716784 Problem Type 2 diabetes mellitus with diabetic polyneuropathy E11.42 Active 683919553 Problem Type 2 diabetes mellitus with diabetic chronic 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 Active 525137749 Problem Other chronic pain G89.29 Active 09091827 Problem Type 2 diabetes mellitus with other skin complications E11.628 Active 74789653 Problem Pain in left foot M79.672 Active 50823932 Problem Irregular menstrual cycle N92.6 Active 41882635 Problem Pain in right foot M79.671 Active 36442228 Problem Tonsillolith J35.8 Active 1955302 Problem Chronic prescription opiate use Z79.891 Active 740292554 Problem Seasonal allergic rhinitis due to pollen J30.1 Active 57607479 Problem Asthma exacerbation, mild J45.901 Active 341180091 Problem Chronic kidney disease, stage III (moderate) N18.3 Active 680143876 Problem Chronic migraine G43.709 Active 30974851 Problem Moderate persistent asthma without complication J45.40 Active 742916298 Problem Intrinsic eczema L20.84 Active 25480110 Problem Severe episode of recurrent major depressive disorder, without psychotic features F33.2 Active 51796016 Problem Non-pressure chronic ulcer of right heel and midfoot limited to breakdown of skin L97.411 Active 533647360 Problem Ulcer of right heel L97.419 Active 970680613 Problem Obesity E66.9 Active 485585857 Problem Type 2 diabetes mellitus with foot ulcer E11.621 Active 42013974 Problem Essential hypertension I10 Active 85296657 Problem Anxiety disorder, unspecified F41.9 Active 284171293 Problem Type 2 diabetes mellitus with other specified complication E11.69 Active 863549881 Problem Status post amputation of toe of left foot Z89.422 Active 528946958 Problem DM neuro manif type II E11.49 Active 12285339 Problem History of amputation of hallux Z89.419 Active 841824812 ALLERGIES No Information ENCOUNTERS Encounter Location Date Diagnosis [facility] [address] [address] 12 Mar, 2018 Moderate persistent asthma without complication J45.40 [facility] [address] [address]- 5603 07 Mar, 2018 Moderate persistent asthma without complication J45.40 [facility] [address] [address]- 2129 Mar, [facility] [address] 6[address]- 8707 February, Chronic migraine G43.709 [facility] [address] 61791- 3696 February, Chronic migraine G43.709 [facility] [address] 67561- 7004 February, [facility] [address] [address]- [address]01 February, [facility] [address] 6[address]- 3062 February, Type 2 diabetes mellitus with diabetic polyneuropathy E11.42 ; Moderate persistent asthma without complication J45.40 ; Type 2 diabetes mellitus with foot ulcer E11.621 ; Non-pressure chronic ulcer of right heel and midfoot limited to breakdown of skin L97.411 ; Chronic migraine G43.709 and BMI 60.0-69.9, adult Z68.44 [facility] [id number] [place] [address] -[address]74 Jan, 2018 Asthma exacerbation, mild J45.901 ; Seasonal allergic rhinitis due to pollen J30.1 and BMI 60.0-69.9, adult Z68.44 [facility] [id number] [place] [address] 40938- 9643 Jan, [place] [address] 9[address]51- 9838 Jan, Other chronic pain G89.29 [facility] [id number] [place] [address] 82780- 0881 30 Dec, 2017 Type 2 diabetes mellitus with diabetic polyneuropathy E11.42 [facility] [id number] [place] [address] 41151- 8106 Dec, Type 2 diabetes mellitus with diabetic polyneuropathy E11.42 [place] [address] 02342- 0831 15 Dec, 2017 [place] [address] 48221- 6317 14 Dec, 2017 [place] [id number] [place] [address] 69222- 1039 13 Dec, 2017 Chronic kidney disease, stage III (moderate) N18.3 [facility] [id number] [place] [address] 64722 -4688 09 Dec, 2017 Nausea R11.0 and Diarrhea, unspecified type R19.7 [place] [id number] [place] [address] 32794- 7121 07 Dec, 2017 Chronic kidney disease, stage III (moderate) N18.3 and Type 2 diabetes mellitus with diabetic polyneuropathy E11.42 [facility] [id number] [place] [address] 56820- 4608 Dec, [place] [address] 85427- 3075 Nov, Ulcer of right heel L97.419 and Type 2 diabetes mellitus with diabetic polyneuropathy E11.42 [facility] [id number] [place] [address] [id number] Nov, Dental examination Z01.20 [facility] [id number] [place] [address] 40042- 2181 Nov, Open wound of right foot, initial encounter S91.301A [facility] [id number] [place] [address] 56067 -5632 Nov, Open wound of right foot, initial encounter S91.301A ; Non- intractable vomiting with nausea, unspecified vomiting type R11.2 and BMI 60.0- 69.9, adult Z68.44 [facility] [id number] [place] [address] 76972- 5526 Nov, [place] [address] 93869- 8911 Nov, Other chronic pain G89.29 [place] [address] 33473- 2523 Oct, Cellulitis of right lower limb L03.115 [facility] [id number] [place] [address] 96990- 5245 Oct, [place] [address] 75610- 5625 Oct, [place] [id number] [place] [address] 00600- 7470 Oct, Cat scratch W55.03XA ; Cellulitis of right lower limb L03.115 ; Acute nasopharyngitis J00 ; BMI 60.0-69.9, adult Z68.44 and Cough R05 [place] [id number] [place] [address] 84869- 5643 Oct, Cat scratch W55.03XA ; Cutaneous abscess of right lower extremity L02.415 and Cellulitis of right lower limb L03.115 [place] [id number] [place] [address] 24452- 9082 Oct, Type 2 diabetes mellitus with diabetic polyneuropathy E11.42 [place] [address] [place] [address] 2123 Oct, Other chronic pain G89.29 [place] [id number] [place] [address] 66995- 2278 Aug, [place] [id number] [place] [address] 41970- 8455 Jul, Other chronic pain G89.29 [place] [address] 03456- 5181 Jul, [place] [address] 30506- 3748 Jul, Chronic kidney disease, stage III (moderate) N18.3 [place] [address] 08406- 5941 Jul, Type 2 diabetes mellitus with diabetic polyneuropathy E11.42 ; Essential hypertension I10 ; Irregular menstrual cycle N92.6 ; Hypertriglyceridemia E78.1 ; Anxiety disorder, unspecified F41.9 ; Severe episode of recurrent major depressive disorder, without psychotic features F33.2 ; Tonsillolith J35.8 ; Intrinsic eczema L20.84 ; Subclinical hypothyroidism E03.9 ; Viral pharyngitis J02.9 and Encounter for immunization Z23 [place] [id number] [place] [address] 28560- 0240 13 Jun, 2017 Essential hypertension I10 [place] [id number] [place] [address] 62226- 8189 08 Jun, 2017 [place] [id number] [place] [address] 57569- 8105 Jun, [place] [id number] [place] [address] 19858- 7110 May, Moderate persistent asthma without complication J45.40 [place] [id number] [place] [address] 62586- 4222 May, Pain in right foot M79.671 ; Pain in left foot M79.672 ; Other chronic pain G89.29 and Chronic prescription opiate use Z79.891 [facility] [id number] [place] [address] 79068- 6761 May, [facility] [id number] [place] [address] 87427- 1054 May, [facility] [id number] [place] [address] 77685- 4287 Apr, [facility] [id number] [place] [address] 81922- 3113 Apr, Chronic migraine G43.709 [facility] [address] 48660- 8406 Apr, Essential hypertension I10 ; Hypertriglyceridemia E78.1 and Chronic migraine G43.709 [facility] [id number] [place] [address] 77990- 7149 Apr, [facility] [id number] [place] [address] 54230- 4660 Apr, Sore throat J02.9 [facility] [id number] [place] [address] 17142- 7539 Apr, [facility] [id number] [place] [address] 32782- 2901 Mar, Strep pharyngitis J02.0 and Non-intractable vomiting with nausea, unspecified vomiting type R11.2 [facility] [id number] [place] [address] 80837- 8635 Mar, [facility] [id number] [place] [address] 61313- 6343 Mar, [facility] [id number] [place] [address] 71796- 4756 Mar, [facility] [id number] [place] [address] 87187- 7853 Mar, Type 2 diabetes mellitus with diabetic polyneuropathy E11.42 ; Moderate persistent asthma without complication J45.40 ; Status post amputation of toe of left foot Z89.422 ; Acute seasonal allergic rhinitis, unspecified trigger J30.2 and Left shoulder pain, unspecified chronicity M25.512 [place] [id number] [place] [address] 06936- 8693 Mar, [place] [id number] [place] [address] 44851- 5095 February, Pre-op evaluation Z01.818 ; Type 2 diabetes mellitus with diabetic polyneuropathy E11.42 and Type 2 diabetes mellitus with foot ulcer E11.621 [place] [id number] [place] [address] 68176- 6759 February, [place] [id number] [place] [address] 25919- 9983 February, [place] [id number] [place] [address] 94687- 5091 February, Toe infection L08.9 and Type 2 diabetes mellitus with other specified complication E11.69 [place] [id number] [place] [address] 32692- 1822 February, [place] [id number] [place] [address] 90065- 0799 Jan, Type 2 diabetes mellitus with diabetic polyneuropathy E11.42 [place] [id number] [place] [address] 35230- 9620 Jan, [place] [id number] [place] [address] 39695- 7352 Jan, Right upper quadrant pain R10.11 and Intractable vomiting with nausea, unspecified vomiting type R11.2 [place] [id number] [place] [address] 34669- 8574 Jan, Hypertriglyceridemia E78.1 and Essential hypertension I10 [place] [id number] [place] [address] 68418- 6615 Jan, Essential hypertension I10 ; Type 2 diabetes mellitus with diabetic polyneuropathy E11.42 and Hypertriglyceridemia E78.1 [facility] [id number] [place] [address] 27406- 5429 16 Dec, 2016 Type 2 diabetes mellitus with diabetic polyneuropathy E11.42 [facility] [id number] [place] [address] 19068- 2561 15 Dec, 2016 Hypertriglyceridemia E78.1 ; Essential hypertension I10 ; Type 2 diabetes mellitus with diabetic polyneuropathy E11.42 ; Anxiety disorder , unspecified F41.9 and Moderate persistent asthma without complication J45.40 [facility] [id number] [place] [address] 64523- 3717 Dec, Type 2 diabetes mellitus with diabetic polyneuropathy E11.42 [facility] [id number] [place] [address] [id number] Dec, [facility] [address] 17323- 7346 Nov, [facility] [id number] [place] [address] 01594- 7510 Nov, [facility] [id number] [place] [address] 69328- 9706 Nov, [facility] [id number] [place] [address] 46444- 9859 Nov, Toe infection L08.9 [facility] [id number] [place] [address] 37693- 3566 Nov, [facility] [id number] [place] [address] 58340- 5763 Oct, History of amputation of hallux Z89.419 [facility] [id number] [place] [address] 67099- 4154 Oct, Type 2 diabetes mellitus with diabetic polyneuropathy E11.42 [facility] [id number] [place] [address] 72447- 1641 Oct, Type 2 diabetes mellitus with diabetic polyneuropathy E11.42 [facility] [address] [address]- 3380 Oct, Acute osteomyelitis of left foot M86.172 ; Pre-op exam Z01.818 and Type 2 diabetes mellitus with diabetic polyneuropathy E11.42 [facility] [address] [place] [address]- 8725 Oct, Foot ulcer, left, with unspecified severity L97.529 ; Acute osteomyelitis of left foot M86.172 and Type 2 diabetes mellitus with diabetic polyneuropathy E11.42 [facility] [id number] [place] [address] 41576- 1307 Sep, [facility] [id number] [place] [address] 40221- 4826 Sep, Intractable vomiting with nausea, unspecified vomiting type R11.2 and Right upper quadrant pain R10.11 [facility] [id number] [place] [address] 16426- 5010 Aug, [facility] [id number] [place] [address] 87909- 7358 Jul, [facility] [id number] [place] [address] 39851- 0630 Jul, Preop examination Z01.818 [facility] [id number] [place] [address] 28941- 4978 Jul, [facility] [address] [place] [address]- 1048 Jul, [facility] [id number] [place] [address] 93920- 4425 Jul, Chronic osteomyelitis of left foot M86.672 and Ulcer of left foot, with unspecified severity L97.529 [facility] [address] [place] [address]- 3944 Jul, Non-pressure chronic ulcer of other part of left foot with unspecified severity L97.529 [facility] [address] [place] [address]- 1001 Jul, [facility] [id number] [place] [address] 59416- 7034 Jul, [facility] [id number] [place] [address] 30616- 7090 Jun, [facility] [id number] [place] [address] 19084- 6141 Jun, [facility] [id number] [place] [address] 70929- 8463 Jun, [facility] [id number] [place] [address] 40279- 2104 21 Jun, 2016 Right upper quadrant pain R10.11 [facility] [id number] [place] [address] 29410- 5645 20 Jun, 2016 [facility] [id number] [place] [address] 27638- 6916 19 Jun, 2016 Intractable vomiting with nausea, unspecified vomiting type R11.2 [facility] [id number] [place] [address] 08721- 0932 13 Jun, 2016 Right upper quadrant pain R10.11 ; Migraine with aura and with status migrainosus, not intractable G43.101 and Intractable vomiting with nausea, unspecified vomiting type R11.2 [facility] [id number] [place] [address] 17730- 2616 12 Jun, 2016 [facility] [id number] [place] [address] 58290- 1090 Jun, Gastroenteritis K52.9 [facility] [id number] [place] [address] 66679- 5126 May, [facility] [id number] [place] [address] 96090- 2118 May, Hypertriglyceridemia E78.1 ; Essential hypertension I10 ; Type 2 diabetes mellitus with diabetic polyneuropathy E11.42 ; Moderate persistent asthma without complication J45.40 ; Type 2 diabetes mellitus with foot ulcer E11.621 ; Other chronic pain G89.29 ; Pain in right leg M79.604 ; Pain of left leg M79.605 ; Rash and nonspecific skin eruption R21 and Anxiety disorder, unspecified F41.9 [place] [address] 55233- 5255 May, Essential hypertension I10 ; Hypertriglyceridemia E78.1 ; Upper respiratory infection J06.9 ; Subclinical hypothyroidism E03.9 and Type 2 diabetes mellitus with diabetic polyneuropathy E11.42 [place] [address] 78334- 4658 Apr, Hypertriglyceridemia E78.1 ; Subclinical hypothyroidism E03.9 ; Essential hypertension I10 and Type 2 diabetes mellitus with diabetic polyneuropathy E11.42 [place] [address] 55344- 0276 Mar, [place] [address] 41894- 6375 Mar, Ulcer of right heel L97.419 [place] [id number] [place] [address] 25506- 6161 Mar, [place] [id number] [place] [address] 82998- 5959 Mar, [place] [id number] [place] [address] 08115- 6523 February, [place] [address] 76050- 9857 February, Ulcer of right heel L97.419 and DM neuro manif type II E11.49 [place] [id number] [place] [address] 86430- 2493 Jan, [place] [address] 23919- 1553 Jan, Ulcer of right heel L97.419 ; Type 2 diabetes mellitus with foot ulcer E11.621 and Non-pressure chronic ulcer of other part of left foot with unspecified severity L97.529 [facility] [id number] [place] [address] 09729- 0343 Jan, [facility] [id number] [place] [address] 16144- 7355 Jan, [place] [id number] [place] [address] 60768- 6107 Jan, Infection of toenail L03.039 [place] [address] 40385- 9081 Jan, Blister of toe of left foot, initial encounter S90.425A and Type 2 diabetes mellitus with diabetic polyneuropathy E11.42 [place] [id number] [place] [address] 57889- 7863 Jan, [facility] [id number] [place] [address] 29084 -7347 Jan, Sore throat J02.9 and Strep pharyngitis J02.0 [place] [id number] [place] [address] 65454- 2630 Dec, Type 2 diabetes mellitus with diabetic polyneuropathy E11.42 ; Upper respiratory infection J06.9 ; Cough R05 and Asthma exacerbation J45.901 [place] [id number] [place] [address] 15735- 1800 Oct, [place] [id number] [place] [address] 16483- 1417 Oct, [facility] [id number] [place] [address] 41396- 5481 Oct, [facility] [id number] [place] [address] 45525- 8735 Oct, [facility] [id number] [place] [address] 30626- 0161 Sep, [place] [id number] [place] [address] 09695- 7138 Aug, Anxiety disorder, unspecified F41.9 and Obesity E66.9 [place] [id number] [place] [address] 97044- 0551 Aug, Moderate persistent asthma without complication J45.[address] 57430- 4759 Aug, Anxiety disorder, unspecified F41.9 [place] [id number] [place] [address] 80618- 7175 Aug, Chronic migraine G43.709 ; Encounter for immunization Z23 ; Hypertriglyceridemia E78.1 ; Type 2 diabetes mellitus with diabetic polyneuropathy E11.42 ; Moderate persistent asthma without complication J45.40 and Morbid obesity E66.01 [place] [id number] [place] [address] 31793- 4564 Jul, [place] [id number] [place] [address] 18222- 7461 Jul, [place] [id number] [place] [address] 01614- 7395 Jul, [place] [id number] [place] [address] 67644- 3259 Jul, Subclinical hypothyroidism E03.9 [place] [id number] [place] [address] 28425- 7728 Jun, Essential hypertension, benign 401.1 ; Diabetic ulcer of lower extremity 250.80 ; Asthma 493.90 ; Diabetes mellitus type II, uncontrolled 250.02 and Hyperlipidemia associated with type 2 diabetes mellitus 250.80 [place] [id number] [place] [address] 40549- 1705 Jun, [place] [id number] [place] [address] [phone]- [phone] Jun, [id number], [place] [address] May, [facility] [id number] [place] [address] [phone]- 4244 Apr, [facility] [id number] [place] [address] [phone]- [phone] Apr, Viral upper respiratory infection 465.9 and Asthma 493.90 [facility] [id number] [place] [address] [phone]- [phone] Mar, Abnormal ankle brachial index 796.4 [facility] [id number] [place] [address] [phone]- [phone] February, [facility] [id number] [place] [address] [id number]- 8412 February, Essential hypertension, benign 401.1 [facility] [id number] [place] [address] 89585- 2318 February, Diabetic peripheral neuropathy 250.60 ; Ulcer of heel and midfoot 707.14 and Decreased pedal pulses 785.9 [facility] [id number] [place] [address] [id number]- 0067 February, [facility] [id number] [place] [address] 10532- 5279 February, [facility] [id number] [place] [address] [phone]- 3888 Jan, [facility] [id number] [place] [address] 27637- 3725 Jan, [facility] [id number] [place] [address] [phone]- 9837 Dec, [facility] [id number] [place] [address] [phone]- [phone] Dec, [facility] [id number] [address] Nov, [facility] [place] [facility] [address] [id number] [place] [address]694 Nov, 2014 [facility] [place] [facility] [address] [id number] [place] [address] 3746 Nov, 2014 [facility] [place] [facility] [address] [id number] [place] [address] 8536 Nov, 2014 [facility] [place] [facility] [address] [id number] [place] [address] 2546 Nov, 2014 [facility] [place] [facility] [address] [id number] [place] [address] 8218 Nov, 2014 [facility] [place] [facility] [address] [id number] [place] [address]- 1996 Nov, 2014 [facility] [place] [facility] [address] [id number] [place] [address]- 3377 Nov, [facility] [place] [facility] [address] [id number] [place] [address]- 0[address] Nov, [facility] [place] [facility] [address] [id number] [place] [address]- 4265 Oct, [facility] [place] [facility] [address] [id number] [place] [address]- 4992 Oct, [facility] [place] [facility] [address] [id number] [place] [address] 2542 Oct, [facility] [place] [facility] [address] [id number] [place] [address]- 254 Oct, [facility] [place] [facility] [address] [id number] [place] [address] 2543 Oct, [facility] [place] [facility] [address] [id number] [place] [address]- 2542 Oct, [facility] [place] [facility] [address] [id number] [place] [address]- 0368 Oct, [facility] [place] [facility] [address] [id number] [place] [address]- 3816 Oct, [facility] [address] [id number] [place] [address]- 9029 Oct, [facility] [place] [facility] [address] [id number] [place] [address]- 9797 Oct, [facility] [place] [facility] [address] [id number] [place] [address]- 1779 Oct, [facility] [place] [facility] [address] [id number] [place] [address]- 6589 Oct, [facility] [place] [facility] [address] [id number] [place] [address]- 3763 Oct, [facility] [place] [facility] [address] [id number] [place] [address]- 3907 Sep, [facility] [place] [facility] [address] [id number] [place] [address]- 4082 Sep, [facility] [place] [facility] [address] [id number] [place] [address]- 8248 Sep, [facility] [place] [facility] [address] [id number] [place] [address]- 1741 Sep, [facility] [place] [facility] [address] [id number] [place] [address]- 9839 Sep, [facility] [place] [facility] [address] [id number] [place] [address]- 1416 Sep, [facility] [place] [facility] [address] [id number] [place] [address]- 1619 Sep, [facility] [place] [facility] [address] [id number] [place] [address]- 8184 Sep, [facility] [place] [facility] [address] [id number] [place] [address]- 4364 Sep, [facility] [place] [facility] [address] [id number] [place] [address]- 4435 Sep, [facility] [place] [facility] [address] [id number] [place] 9536 Sep, [facility] [place] [facility] [address] [id number] [place] [address] Sep, [facility] [place] [facility] [address] [id number] [place] [address]- 4609 Sep, [facility] [place] [facility] [address] [id number] [place] [address] Sep, [facility] [place] [facility] [address] [id number] [place] [address]- 2331 Sep, [facility] [place] [facility] [address] [id number] [place] [address]- 5817 Sep, [facility] [place] [facility] [address] [id number] [place] [address]- 5067 Aug, [facility] [place] [facility] [address] [id number] [place] [address]- 1792 Aug, [facility] [place] [facility] [address] [id number] [place] [address]- 0873 Aug, [facility] [place] [facility] [address] [id number] [place] [address]- 4028 Aug, [facility] [place] [facility] [address] [id number] [place] [address]- 1150 Aug, [facility] [place] [facility] [address] [id number] [place] [address]- 9596 Aug, [facility] [place] [facility] [address] [id number] [place] [address]- 8825 Aug, [facility] [place] [facility] [address] [id number] [place] [address]- 2046 Aug, [facility] [place] [facility] [address] [id number] [place] [address]- 4123 Jul, [facility] [place] [facility] [address] [id number] [place] [address]- 2383 Jul, [facility] [place] [facility] [address] [id number] [place] [address]- 8979 30 Jul, 2014 [facility] [place] [facility] [address] [id number] [place] [address]- 5926 Jul, [facility] [place] [facility] [address] [id number] [place] [address]- 4823 Jul, [facility] [place] [facility] [address] [id number] [place] [address]- 1506 Jun, [facility] [place] [facility] [address] [id number] [place] [address]- 6126 Jun, [facility] [place] [facility] [address] [id number] [place] [address]- 5416 Jun, [facility] [place] [facility] [address] [id number] [place] [address]- 5820 Jun, [facility] [place] [facility] [address] [id number] [place] [address]- 5586 Jun, [facility] [place] [facility] [address] [id number] [place] [address]- 7152 May, [facility] [place] [facility] [address] [id number] [place] [address]- 9657 May, [facility] [place] [facility] [address] [id number] [place] [address]- 9149 Apr, [facility] [place] [facility] [address] [id number] [place] [address]- 0697 Apr, [facility] [place] [facility] [address] [id number] [place] [address]- 0911 Apr, [facility] [place] [facility] [address] [id number] [place] [address]- 6938 Apr, [facility] [place] [facility] [address] [id number] [place] [address] Apr, [facility] [place] [facility] [address] [id number] [place] [address]- 3433 Apr, [facility] [place] [facility] [address] [id number] [place] [address]- 3755 Mar, [facility] [place] [facility] [address] [id number] [place] [address]- 6913 Mar, [facility] [place] [facility] [address] [id number] [place] [address]- 5808 Mar, [facility] [place] [facility] [address] [id number] [place] [address]- 9572 Mar, [facility] [place] [facility] [address] [id number] [place] [address]- 7931 Mar, [facility] [place] [facility] [address] [id number] [place] [address]- 4289 Mar, [facility] [place] [facility] [address] [id number] [place] [address]- 9470 Mar, [facility] [place] [facility] [address] [id number] [place] [address]- 4267 Mar, [facility] [place] [facility] [address] [id number] [place] [address]- 4590 Mar, [facility] [place] [facility] [address] [id number] [place] [address]- 1777 Mar, [facility] [place] [facility] [address] [id number] [place] [address]- 0282 Mar, [facility] [place] [facility] [address] [id number] [place] [address]- 6342 Mar, [facility] [place] [facility] [address] [id number] [place] [address]- 6242 Mar, [facility] [place] [facility] [address] [id number] [place] [address]- 0203 Mar, [facility] [place] [facility] [address] [id number] [place] [address]- 7243 Mar, [facility] [place] [facility] [address] [id number] [place] [address]- 0885 Mar, [facility] [place] [facility] [address] [id number] [place] [address]- 4687 February, [facility] [place] [facility] [address] [id number] [place] [address]- 2711 February, [facility] [place] [facility] [address] [id number] [place] [address]- 0826 February, [facility] [place] [facility] [address] [id number] [place] [address]- 7145 February, [facility] [place] [facility] [address] [id number] [place] [address]- 0509 February, [facility] [place] [facility] [address] [id number] [place] [address]- 6980 February, [facility] [place] [facility] [address] [id number] [place] [address]- 7116 February, [facility] [place] [facility] [address] [id number] [place] [address]- 5248 February, [facility] [place] [facility] [address] [id number] [place] [address]- 6215 Jan, [facility] [place] [facility] [address] [id number] [place] [address]- 8808 Jan, [facility] [place] [facility] [address] [id number] [place] [address]- 6694 Dec, [facility] [place] [facility] [address] [id number] [place] [address]- 8545 Dec, [facility] [place] [facility] [address] [id number] [place] [address]- 3446 Dec, [facility] [place] [facility] [address] [id number] [place] [address]- 8921 Dec, [facility] [place] [facility] [address] [id number] [place] [address]- 6439 24 Dec, 2013 [facility] [place] [facility] [address] [id number] [place] [address]- 0841 24 Dec, 2013 [facility] [place] [facility] [address] [id number] [place] [address]- 6385 Dec, [facility] [place] [facility] [address] [id number] [place] [address]- 9429 Dec, [facility] [place] [facility] [address] [id number] [place] [address]- 3878 17 Dec, 2013 [facility] [place] [facility] [address] [id number] [place] [address]- 1916 17 Dec, 2013 [facility] [place] [facility] [address] [id number] [place] [address]- 4004 Dec, [facility] [place] [facility] [address] [id number] [place] [address]- 5619 Dec, [facility] [place] [facility] [address] [id number] [place] [address]- 5579 Dec, [facility] [place] [facility] [address] [id number] [place] [address]- 5320 Dec, [facility] [place] [facility] [address] [id number] [place] [address]- 3744 Nov, [facility] [place] [facility] [address] [id number] [place] [address]- 5892 Nov, [facility] [place] [facility] [address] [id number] [place] [address]- 2105 Oct, [facility] [place] [facility] [address] [id number] [place] [address]- 8981 Oct, [facility] [place] [facility] [address] [id number] [place] [address]- 0793 Oct, [facility] [place] [facility] [address] [id number] [place] [address]- 8844 Oct, [facility] [place] [facility] [address] [id number] [place] [address]- 8286 16 Oct, 2013 [facility] [place] [facility] [address] [id number] [place] [address]- 2794 Oct, [facility] [place] [facility] [address] [id number] [place] [address]- 9856 Oct, [facility] [place] [facility] [address] [id number] [place] [address]- 1083 31 Sep, 2013 [facility] [place] [facility] [address] [id number] [place] [address]- 9061 30 Sep, 2013 [facility] [place] [facility] [address] [id number] [place] [address]- 8901 30 Sep, 2013 [facility] [place] [facility] [address] [id number] [place] [address]- 9485 Sep, [facility] [place] [facility] [address] [id number] [place] [address]- 0713 Sep, [facility] [place] [facility] [address] [id number] [place] [address]- 0368 Sep, [facility] [place] [facility] [address] [id number] [place] [address]- 2671 Sep, [facility] [place] [facility] [address] [id number] [place] [address]- 5646 Sep, [facility] [place] [facility] [address] [id number] [place] [address]- 1921 Sep, [facility] [place] [facility] [address] [id number] [place] [address] 2549 Sep, [facility] [place] [facility] [address] [id number] [place] [address]- 3056 Sep, [facility] [place] [facility] [address] [id number] [place] [address]- 2176 Sep, [facility] [place] [facility] [address] [id number] [place] [address]- 8979 Sep, [facility] [place] [facility] [address] [id number] [place] [address]- 4050 16 Sep, 2013 [facility] [place] [facility] [address] [id number] [place] [address]- 4246 Sep, [facility] [place] [facility] [address] [id number] [place] [address]- 4005 Sep, [facility] [place] [facility] [address] [id number] [place] [address]- 1386 Sep, [facility] [place] [facility] [address] [id number] [place] [address]- 5916 Sep, [facility] [place] [facility] [address] [id number] [place] [address]- 8520 Sep, [facility] [place] [facility] [address] [id number] [place] [address]- 1121 Aug, [facility] [place] [facility] [address] [id number] [place] [address]- 1978 Aug, [facility] [place] [facility] [address] [id number] [place] [address]- 3401 Aug, [facility] [place] [facility] [address] [id number] [place] [address]- 1728 Aug, [facility] [place] [facility] [address] [id number], [place] [address]- 1627 Aug, [facility] [place] [facility] [address] [id number], [place] [address]- 9177 Aug, [facility] [place] [facility] [address] [id number] [place] [address]- 6030 Aug, [facility] [place] [facility] [address] [id number], [place] [address]- 3883 Aug, [facility] [place] [facility] [address] [id number], [place] [address]- 9875 Aug, [facility] [place] [facility] [address] [id number] [place] [address]- 5242 Aug, [facility] [place] [facility] [address] [id number] [place] [address]- 3613 Aug, [facility] [place] [facility] [address] [id number] [place] [address]- 9763 Aug, [facility] [place] [facility] [address] [id number] [place] [address]- 5240 Aug, [facility] [place] [facility] [address] [id number] [place] [address]- 2621 Aug, [facility] [place] [facility] [address] [id number] [place] [address]- 6896 Aug, [facility] [place] [facility] [address] [id number] [place] [address]- 4368 Aug, [facility] [place] [facility] [address] [facility] [id number] [place] [address]- 9793 Aug, [facility] [place] [facility] [address] [id number] [place] [address]- 9712 Jul, [facility] [place] [facility] [address] [id number] [place] [address]- 3567 Jul, [facility] [place] [facility] [address] [facility] [id number] [place] [address]- 2465 Jul, [facility] [place] [facility] [address] [id number] [place] [address]- 0250 Jul, [facility] [place] [facility] [address] [id number], [place] [address]- 8443 Jul, [facility] [place] [facility] [address] [id number] [place] [address]- 9330 Jul, [facility] [place] [facility] [address] [facility] [id number] [place] 2752 Jul, [facility] [place] [facility] [address] [id number][place] [address]307 Jun, [facility] [address] [id number], [place] [address]- 0763 20 Jun, 2012 [facility] [address] [id number], [place] [address]- 2404 17 Jun, 2012 [facility] [address] [facility] [id number], [place] [address]- 1789 10 Jun, 2012 [facility] [address] [id number], [place] [address]- 8493 06 Jun, 2012 [facility] [address] [id number] [place] [address]- 6230 06 Jun, 2012 [facility] [address] [id number] [place] [address]- 7667 05 Jun, 2012 [facility] [address] [facility] [id number], [place] [address]- 4626 03 Jun, 2012 [facility] [address] [id number], [place] [address]- 8863 May, [facility] [address] [facility] [id number], [place] [address]- 7301 May, [facility] [id number], [place] [address]- 9401 15 May, 2013 [facility] [address] [id number], [place] [address]- 1316 May, [facility] [address] [facility] [id number], [place] [address]- 7427 May, [facility] [address] [facility] [id number], [place] [address]- 5933 May, [facility] [address] [facility] [id number], [place] [address]- 0861 May, [facility] [address] [facility] [id number], [place] [address]- 1268 May, IMMUNIZATIONS No Known Immunizations SOCIAL HISTORY Never Assessed REASON FOR VISIT Nephrology Referral PLAN OF CARE VITAL SIGNS MEDICATIONS Unknown [...] [facility] [place] Surgical History bladder surgery-stretch [facility] 2003 Surgical History exploratory laparoscopy [facility] [place] 1995 Surgical History amputation, toe (R great) Surgical History amputation, (R forefoot) 2015 Surgical History amputation, toe Left second 12/2016 Surgical History amputation, 4th left toe 02/2017 Hospitalization History Left foot cellulitis, left 2nd toe amputation-[facility] 12/23 Hospitalization History Surgery Hospitalizations
--- OUTSIDE RECORDS SUMMARY | 2018-08-22 09:12 | XMS REPORT ---
Author Author LUDIVINA STEPHANIE [facility] Address [address] [place] [address] Care Team Providers Care Component Assembler Supervisor Name Role Phone DEE DEE FLORENCEHANY Unavailable PROBLEMS Type Condition ICD9-CM Code [id number] Code Onset Dates Condition Status SNOMED Code Problem Subclinical hypothyroidism E03.9 Active 44159248 Problem Hypertriglyceridemia E78.1 Active 609878018 Problem Type 2 diabetes mellitus with diabetic polyneuropathy E11.42 Active 705910046 Problem Type 2 diabetes mellitus with diabetic chronic 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 Active 051158734 Problem Other chronic pain G89.29 Active 14039236 Problem Type 2 diabetes mellitus with other skin complications E11.628 Active 48824126 Problem Pain in left foot M79.672 Active 42259468 Problem Irregular menstrual cycle N92.6 Active 38935197 Problem Pain in right foot M79.671 Active 43365541 Problem Tonsillolith J35.8 Active 6239148 Problem Chronic prescription opiate use Z79.891 Active 753943535 Problem Seasonal allergic rhinitis due to pollen J30.1 Active 06173451 Problem Asthma exacerbation, mild J45.901 Active 301459602 Problem Chronic kidney disease, stage III (moderate) N18.3 Active 614598282 Problem Chronic migraine G43.709 Active 07667446 Problem Moderate persistent asthma without complication J45.40 Active 673238181 Problem Intrinsic eczema L20.84 Active 77950376 Problem Severe episode of recurrent major depressive disorder, without psychotic features F33.2 Active 83619344 Problem Non-pressure chronic ulcer of right heel and midfoot limited to breakdown of skin L97.411 Active 657558935 Problem Ulcer of right heel L97.419 Active 062144125 Problem Obesity E66.9 Active 865860674 Problem Type 2 diabetes mellitus with foot ulcer E11.621 Active 83218459 Problem Essential hypertension I10 Active 15670617 Problem Anxiety disorder, unspecified F41.9 Active 150695752 Problem Type 2 diabetes mellitus with other specified complication E11.69 Active 020872356 Problem Status post amputation of toe of left foot Z89.422 Active 498352718 Problem DM neuro manif type II E11.49 Active 93346334 Problem History of amputation of hallux Z89.419 Active 013525024 ALLERGIES No Information ENCOUNTERS Encounter Location Date Diagnosis [facility] [address] [address] 12 Mar, 2018 Moderate persistent asthma without complication J45.40 [facility] [address] [address]- [address] 07 Mar, 2018 Moderate persistent asthma without complication J45.40 [facility] [address] 4[address]- 3828 Mar, [facility] [address] [address]31- 4623 February, Chronic migraine G43.709 [facility] [address] 9[address]- 6930 February, Chronic migraine G43.709 [facility] [address] 41756- 0227 February, [facility] [address] [address]- [address] February, [facility] [address] [address]- 6672 February, Type 2 diabetes mellitus with diabetic polyneuropathy E11.42 ; Moderate persistent asthma without complication J45.40 ; Type 2 diabetes mellitus with foot ulcer E11.621 ; Non-pressure chronic ulcer of right heel and midfoot limited to breakdown of skin L97.411 ; Chronic migraine G43.709 and BMI 60.0-69.9, adult Z68.44 [facility] [id number] [place] [address]110 -7926 Jan, 2018 Asthma exacerbation, mild J45.901 ; Seasonal allergic rhinitis due to pollen J30.1 and BMI 60.0-69.9, adult Z68.44 [facility] [id number] [place] [address] 32079- 7614 Jan, [facility] [address] 8[address]- 7824 Jan, Other chronic pain G89.29 [facility] [id number] [place] [address] 59695- 8366 30 Dec, 2017 Type 2 diabetes mellitus with diabetic polyneuropathy E11.42 [facility] [id number] [place] [address] 01067- 7695 Dec, Type 2 diabetes mellitus with diabetic polyneuropathy E11.42 [facility] [address] 77949- 1075 15 Dec, 2017 [facility] [address] 43740- 8088 14 Dec, 2017 [facility] [id number] [place] [address] 44106- 5008 13 Dec, 2017 Chronic kidney disease, stage III (moderate) N18.3 [facility] [id number] [place] [address] 05094 -4582 09 Dec, 2017 Nausea R11.0 and Diarrhea, unspecified type R19.7 [facility] [id number] [place] [address] 40366- 6788 07 Dec, 2017 Chronic kidney disease, stage III (moderate) N18.3 and Type 2 diabetes mellitus with diabetic polyneuropathy E11.42 [facility] [id number] [place] [address] 43341- 8305 Dec, [facility] [address] 56928- 4791 Nov, Ulcer of right heel L97.419 and Type 2 diabetes mellitus with diabetic polyneuropathy E11.42 [facility] [id number] [place] [address] [id number] Nov, Dental examination Z01.20 [facility] [id number] [place] [address] 92900- 9701 Nov, Open wound of right foot, initial encounter S91.301A [facility] [id number] [place] [address] 08010 -1205 Nov, Open wound of right foot, initial encounter S91.301A ; Non- intractable vomiting with nausea, unspecified vomiting type R11.2 and BMI 60.0- 69.9, adult Z68.44 [facility] [id number] [place] [address] 45287- 0221 Nov, [facility] [address] 20463- 5093 Nov, Other chronic pain G89.29 [facility] [address] 02060- 5275 Oct, Cellulitis of right lower limb L03.115 [facility] [id number] [place] [address] 15526- 9549 Oct, [facility] [address] 81297- 7523 Oct, [facility] [id number] [place] [address] 86242- 5284 Oct, Cat scratch W55.03XA ; Cellulitis of right lower limb L03.115 ; Acute nasopharyngitis J00 ; BMI 60.0-69.9, adult Z68.44 and Cough R05 [facility] [id number] [place] [address] 08634- 2823 Oct, Cat scratch W55.03XA ; Cutaneous abscess of right lower extremity L02.415 and Cellulitis of right lower limb L03.115 [facility] [id number] [place] [address] 17421- 8220 Oct, Type 2 diabetes mellitus with diabetic polyneuropathy E11.42 [facility] [address] [place] [address] 7507 Oct, Other chronic pain G89.29 [facility] [id number] [place] [address] 26833- 7002 Aug, [facility] [id number] [place] [address] 12386- 1110 Jul, Other chronic pain G89.29 [facility] [address] 04808- 2144 Jul, [facility] [address] 32925- 6262 Jul, Chronic kidney disease, stage III (moderate) N18.3 [facility] [address] 02302- 7084 Jul, Type 2 diabetes mellitus with diabetic polyneuropathy E11.42 ; Essential hypertension I10 ; Irregular menstrual cycle N92.6 ; Hypertriglyceridemia E78.1 ; Anxiety disorder, unspecified F41.9 ; Severe episode of recurrent major depressive disorder, without psychotic features F33.2 ; Tonsillolith J35.8 ; Intrinsic eczema L20.84 ; Subclinical hypothyroidism E03.9 ; Viral pharyngitis J02.9 and Encounter for immunization Z23 [facility] [id number] [place] [address] 75251- 8309 13 Jun, 2017 Essential hypertension I10 [facility] [id number] [place] [address] 12297- 1011 08 Jun, 2017 [facility] [id number] [place] [address] 46254- 4967 Jun, [facility] [id number] [place] [address] 01098- 0925 May, Moderate persistent asthma without complication J45.40 [facility] [id number] [place] [address] 24532- 4314 May, Pain in right foot M79.671 ; Pain in left foot M79.672 ; Other chronic pain G89.29 and Chronic prescription opiate use Z79.891 [facility] [id number] [place] [address] 86175- 0498 May, [facility] [id number] [place] [address] 50560- 0700 May, [facility] [id number] [place] [address] 92030- 1755 Apr, [facility] [id number] [place] [address] 47497- 9008 Apr, Chronic migraine G43.709 [facility] [address] 23940- 9563 Apr, Essential hypertension I10 ; Hypertriglyceridemia E78.1 and Chronic migraine G43.709 [facility] [id number] [place] [address] 62526- 4827 Apr, [facility] [id number] [place] [address] 59996- 9329 Apr, Sore throat J02.9 [facility] [id number] [place] [address] 31196- 3998 Apr, [facility] [id number] [place] [address] 92618- 2686 Mar, Strep pharyngitis J02.0 and Non-intractable vomiting with nausea, unspecified vomiting type R11.2 [facility] [id number] [place] [address] 42326- 2617 Mar, [facility] [id number] [place] [address] 29108- 8005 Mar, [facility] [id number] [place] [address] 09468- 7833 Mar, [facility] [id number] [place] [address] 24440- 4570 Mar, Type 2 diabetes mellitus with diabetic polyneuropathy E11.42 ; Moderate persistent asthma without complication J45.40 ; Status post amputation of toe of left foot Z89.422 ; Acute seasonal allergic rhinitis, unspecified trigger J30.2 and Left shoulder pain, unspecified chronicity M25.512 [facility] [id number] [place] [address] 61270- 0625 Mar, [facility] [id number] [place] [address] 49918- 3076 February, Pre-op evaluation Z01.818 ; Type 2 diabetes mellitus with diabetic polyneuropathy E11.42 and Type 2 diabetes mellitus with foot ulcer E11.621 [facility] [id number] [place] [address] 88858- 6687 February, [facility] [id number] [place] [address] 44600- 1133 February, [facility] [id number] [place] [address] 94781- 1721 February, Toe infection L08.9 and Type 2 diabetes mellitus with other specified complication E11.69 [facility] [id number] [place] [address] 65630- 5121 February, [facility] [id number] [place] [address] 62742- 3685 Jan, Type 2 diabetes mellitus with diabetic polyneuropathy E11.42 [facility] [id number] [place] [address] 22051- 1256 Jan, [facility] [id number] [place] [address] 86812- 6431 Jan, Right upper quadrant pain R10.11 and Intractable vomiting with nausea, unspecified vomiting type R11.2 [facility] [id number] [place] [address] 83939- 3914 Jan, Hypertriglyceridemia E78.1 and Essential hypertension I10 [facility] [id number] [place] [address] 05151- 4524 Jan, Essential hypertension I10 ; Type 2 diabetes mellitus with diabetic polyneuropathy E11.42 and Hypertriglyceridemia E78.1 [facility] [id number] [place] [address] 39118- 1013 16 Dec, 2016 Type 2 diabetes mellitus with diabetic polyneuropathy E11.42 [facility] [id number] [place] [address] 01079- 3261 15 Dec, 2016 Hypertriglyceridemia E78.1 ; Essential hypertension I10 ; Type 2 diabetes mellitus with diabetic polyneuropathy E11.42 ; Anxiety disorder , unspecified F41.9 and Moderate persistent asthma without complication J45.40 [facility] [id number] [place] [address] 89153- 9002 Dec, Type 2 diabetes mellitus with diabetic polyneuropathy E11.42 [facility] [id number] [place] [address] [id number] Dec, [facility] [address] 62993- 1465 Nov, [facility] [id number] [place] [address] 96631- 6660 Nov, [facility] [id number] [place] [address] 43679- 4788 Nov, [facility] [id number] [place] [address] 78825- 0784 Nov, Toe infection L08.9 [facility] [id number] [place] [address] 54708- 2345 Nov, [facility] [id number] [place] [address] 72646- 2331 Oct, History of amputation of hallux Z89.419 [facility] [id number] [place] [address] 63438- 9856 Oct, Type 2 diabetes mellitus with diabetic polyneuropathy E11.42 [facility] [id number] [place] [address] 80900- 9428 Oct, Type 2 diabetes mellitus with diabetic polyneuropathy E11.42 [facility] [address] [address]- 2203 Oct, Acute osteomyelitis of left foot M86.172 ; Pre-op exam Z01.818 and Type 2 diabetes mellitus with diabetic polyneuropathy E11.42 [facility] [address] [address]- 2274 Oct, Foot ulcer, left, with unspecified severity L97.529 ; Acute osteomyelitis of left foot M86.172 and Type 2 diabetes mellitus with diabetic polyneuropathy E11.42 [facility] [id number] [place] [address] 92187- 1121 Sep, [facility] [id number] [place] [address] 06102- 1697 Sep, Intractable vomiting with nausea, unspecified vomiting type R11.2 and Right upper quadrant pain R10.11 [facility] [id number] [place] [address] 35630- 9131 Aug, [facility] [id number] [place] [address] 74565- 4138 Jul, [facility] [id number] [place] [address] 43114- 1991 Jul, Preop examination Z01.818 [facility] [id number] [place] [address] 63293- 4153 Jul, [facility] [address] [address]- 8967 Jul, [facility] [id number] [place] [address] 67959- 2532 Jul, Chronic osteomyelitis of left foot M86.672 and Ulcer of left foot, with unspecified severity L97.529 [facility] [address] [address]- 5688 Jul, Non-pressure chronic ulcer of other part of left foot with unspecified severity L97.529 [facility] [address] [address]- 0492 Jul, [facility] [id number] [place] [address] 11202- 3129 Jul, [facility] [id number] [place] [address] 12450- 7925 Jun, [facility] [id number] [place] [address] 38795- 3695 Jun, [facility] [id number] [place] [address] 81527- 0739 Jun, [facility] [id number] [place] [address] 73574- 3906 21 Jun, 2016 Right upper quadrant pain R10.11 [facility] [id number] [place] [address] 23279- 6360 20 Jun, 2016 [facility] [id number] [place] [address] 54566- 7214 19 Jun, 2016 Intractable vomiting with nausea, unspecified vomiting type R11.2 [facility] [id number] [place] [address] 60825- 7999 13 Jun, 2016 Right upper quadrant pain R10.11 ; Migraine with aura and with status migrainosus, not intractable G43.101 and Intractable vomiting with nausea, unspecified vomiting type R11.2 [facility] [address] [place] [address] 48450- 3934 12 Jun, 2016 [facility] [id number] [place] [address] 44981- 0679 Jun, Gastroenteritis K52.9 [facility] [id number] [place] [address] 82532- 0326 May, [facility] [id number] [place] [address] 30790- 4892 May, Hypertriglyceridemia E78.1 ; Essential hypertension I10 ; Type 2 diabetes mellitus with diabetic polyneuropathy E11.42 ; Moderate persistent asthma without complication J45.40 ; Type 2 diabetes mellitus with foot ulcer E11.621 ; Other chronic pain G89.29 ; Pain in right leg M79.604 ; Pain of left leg M79.605 ; Rash and nonspecific skin eruption R21 and Anxiety disorder, unspecified F41.9 [facility] [address] 82149- 2050 May, Essential hypertension I10 ; Hypertriglyceridemia E78.1 ; Upper respiratory infection J06.9 ; Subclinical hypothyroidism E03.9 and Type 2 diabetes mellitus with diabetic polyneuropathy E11.42 [facility] [address] 36398- 2355 Apr, Hypertriglyceridemia E78.1 ; Subclinical hypothyroidism E03.9 ; Essential hypertension I10 and Type 2 diabetes mellitus with diabetic polyneuropathy E11.42 [facility] [address] 98642- 5219 Mar, [facility] [address] 82719- 5733 Mar, Ulcer of right heel L97.419 [facility] [id number] [place] [address] 77086- 7719 Mar, [facility] [id number] [place] [address] 28627- 7721 Mar, [facility] [id number] [place] [address] 04983- 5676 February, [facility] [address] 74356- 7345 February, Ulcer of right heel L97.419 and DM neuro manif type II E11.49 [facility] [id number] [place] [address] 70780- 2891 Jan, [facility] [address] 16240- 1098 Jan, Ulcer of right heel L97.419 ; Type 2 diabetes mellitus with foot ulcer E11.621 and Non-pressure chronic ulcer of other part of left foot with unspecified severity L97.529 [facility] [id number] [place] [address] 08385- 4431 Jan, [facility] [id number] [place] [address] 85128- 0226 Jan, [facility] [id number] [place] [address] 17097- 8038 Jan, Infection of toenail L03.039 [facility] [address] 38184- 4293 Jan, Blister of toe of left foot, initial encounter S90.425A and Type 2 diabetes mellitus with diabetic polyneuropathy E11.42 [facility] [id number] [place] [address] 64152- 0537 Jan, [facility] [id number] [place] [address] 89131 -2111 Jan, Sore throat J02.9 and Strep pharyngitis J02.0 [facility] [id number] [place] [address] 77760- 1074 Dec, Type 2 diabetes mellitus with diabetic polyneuropathy E11.42 ; Upper respiratory infection J06.9 ; Cough R05 and Asthma exacerbation J45.901 [facility] [id number] [place] [address] 74690- 3614 Oct, [facility] [id number] [place] [address] 22724- 0042 Oct, [facility] [id number] [place] [address] 54368- 5910 Oct, [facility] [id number] [place] [address] 18291- 1069 Oct, [facility] [id number] [place] [address] 58202- 0380 Sep, [facility] [id number] [place] [address] 77208- 9767 Aug, Anxiety disorder, unspecified F41.9 and Obesity E66.9 [facility] [id number] [place] [address] 68541- 4876 Aug, Moderate persistent asthma without complication J45.[address] 32846- 7567 Aug, Anxiety disorder, unspecified F41.9 [place] [id number] [place] [address] 07881- 0684 Aug, Encounter for immunization Z23 ; Chronic migraine G43.709 ; Hypertriglyceridemia E78.1 ; Type 2 diabetes mellitus with diabetic polyneuropathy E11.42 ; Moderate persistent asthma without complication J45.40 and Morbid obesity E66.01 [place] [id number] [place] [address] 03742- 0487 Jul, [place] [id number] [place] [address] 80080- 0374 Jul, [place] [id number] [place] [address] 92798- 3267 Jul, [facility] [id number] [place] [address] 58049- 3135 Jul, Subclinical hypothyroidism E03.9 [place] [id number] [place] [address] 15593- 8024 Jun, Essential hypertension, benign 401.1 ; Diabetic ulcer of lower extremity 250.80 ; Asthma 493.90 ; Diabetes mellitus type II, uncontrolled 250.02 and Hyperlipidemia associated with type 2 diabetes mellitus 250.80 [facility] [id number] [place] [address] 79829- 4880 Jun, [place] [id number] [place] [address] 83979- 5458 Jun, [address] [address]- 8158 May, [facility] [id number] [place] [address] 61184- 4627 Apr, [facility] [id number] [place] [address] 68137- 6568 Apr, Viral upper respiratory infection 465.9 and Asthma 493.90 [facility] [id number] [place] [address] 36862- 0900 Mar, Abnormal ankle brachial index 796.4 [facility] [id number] [place] [address] 19707- 4478 February, [facility] [id number] [place] [address] 90690- 0172 February, Essential hypertension, benign 401.1 [facility] [id number] [place] [address] 12695- 1151 February, Diabetic peripheral neuropathy 250.60 ; Ulcer of heel and midfoot 707.14 and Decreased pedal pulses 785.9 [facility] [id number] [place] [address] 86013- 6521 February, [facility] [id number] [place] [address] 32321- 3693 February, [facility] [id number] [place] [address] 51824- 0986 Jan, [facility] [id number] [place] [address] 79472- 3054 Jan, [facility] [id number] [place] [id number] [id number] Dec, [facility] [id number] [place] [id number] [id number] Dec, [facility] [id number] [address] Nov, [facility] [place] [facility] [address] [id number] [place] [address] Nov, 2014 [facility] [place] [facility] [address] [id number] [place] [address] Nov, 2014 [facility] [place] [facility] [address] [id number] [place] [address] Nov, 2014 [facility] [place] [facility] [address] [id number] [place] [address] Nov, 2014 [facility] [place] [facility] [address] [id number] [place] [address] Nov, 2014 [facility] [place] [facility] [address] [address] [id number] [place] [address] Nov, 2014 [facility] [place] [facility] [address] [id number] [place] [address] Nov, [facility] [place] [facility] [address] [id number] [place] [address] Nov, [facility] [place] [facility] [address] [id number] [place] [address] 97[address] Oct, [facility] [place] [facility] [address] [id number] [place] [address] 8872 Oct, [facility] [place] [facility] [address] [id number] [place] [address] 2545 Oct, [facility] [place] [facility] [address] [id number] [place] [address] 2544 Oct, [facility] [place] [facility] [address] [id number] [place] [address] 2549 Oct, [facility] [place] [facility] [address] [id number] [place] [address] 2543 Oct, [facility] [place] [facility] [address] [id number] [place] [address]- 7984 Oct, [facility] [place] [facility] [address] [id number] [place] [address] 4[address] Oct, [facility] [address] [id number] [place] [address] 9670 Oct, [facility] [place] [facility] [address] [id number] [place] [address]- 4255 Oct, [facility] [place] [facility] [address] [id number] [place] [address]- 1030 Oct, [facility] [place] [facility] [address] [id number] [place] [address]- 0623 Oct, [facility] [place] [facility] [address] [id number] [place] [address]- 7925 Oct, [facility] [place] [facility] [address] [id number] [place] [address]- 3903 Sep, [facility] [place] [facility] [address] [id number] [place] [address]- 0060 Sep, [facility] [place] [facility] [address] [id number] [place] [address]- 8892 Sep, [facility] [place] [facility] [address] [id number] [place] [address]- 5922 Sep, [facility] [place] [facility] [address] [id number] [place] [address]- 3867 Sep, [facility] [place] [facility] [address] [id number] [place] [address]- 1436 Sep, [facility] [place] [facility] [address] [id number] [place] [address]- 9928 Sep, [facility] [place] [facility] [address] [id number] [place] [address]- 5867 Sep, [facility] [place] [facility] [address] [id number] [place] [address]- 9566 Sep, [facility] [place] [facility] [address] [id number] [place] [address]- 5161 Sep, [facility] [place] [facility] [address] [id number] [place] [address] Sep, [facility] [place] [facility] [address] [id number] [place] [address] Sep, [facility] [place] [facility] [address] [id number] [place] [address]- 5622 Sep, [facility] [place] [facility] [address] [id number] [place] [address] Sep, [facility] [place] [facility] [address] [id number] [place] [address]- 1394 Sep, [facility] [place] [facility] [address] [id number] [place] [address]- 0920 Sep, [facility] [place] [facility] [address] [id number] [place] [address]- 0028 Aug, [facility] [place] [facility] [address] [id number] [place] [address]- 2817 Aug, [facility] [place] [facility] [address] [id number] [place] [address]- 8301 Aug, [facility] [place] [facility] [address] [id number] [place] [address]- 0067 Aug, [facility] [place] [facility] [address] [id number] [place] [address]- 7465 Aug, [facility] [place] [facility] [address] [id number] [place] [address]- 7416 Aug, [facility] [place] [facility] [address] [id number] [place] [address]- 1007 Aug, [facility] [place] [facility] [address] [id number] [place] [address]- 8935 Aug, [facility] [place] [facility] [address] [id number] [place] [address]- 3191 Jul, [facility] [place] [facility] [address] [id number] [place] [address]- 5583 Jul, [facility] [place] [facility] [address] [id number] [place] [address]- 6069 30 Jul, 2014 [facility] [place] [facility] [address] [id number] [place] [address]- 4168 Jul, [facility] [place] [facility] [address] [id number] [place] [address]- 4532 Jul, [facility] [place] [facility] [address] [id number] [place] [address]- 0696 Jun, [facility] [place] [facility] [address] [id number] [place] [address]- 3723 Jun, [facility] [place] [facility] [address] [id number] [place] [address]- 1191 Jun, [facility] [place] [facility] [address] [id number] [place] [address]- 3023 Jun, [facility] [place] [facility] [address] [id number] [place] [address]- 4608 Jun, [facility] [place] [facility] [address] [id number] [place] [address]- 2949 May, [facility] [place] [facility] [address] [id number] [place] [address]- 4608 May, [facility] [place] [facility] [address] [id number] [place] [address]- 6482 Apr, [facility] [place] [facility] [address] [id number] [place] [address]- 2742 Apr, [facility] [place] [facility] [address] [id number] [place] [address]- 6717 Apr, [facility] [place] [facility] [address] [id number] [place] [address]- 3965 Apr, [facility] [place] [facility] [address] [id number] [place] [address] Apr, [facility] [place] [facility] [address] [id number] [place] [address]- 0385 Apr, [facility] [place] [facility] [address] [id number] [place] [address]- 0810 Mar, [facility] [place] [facility] [address] [id number] [place] [address]- 9222 Mar, [facility] [place] [facility] [address] [id number] [place] [address]- 1152 Mar, [facility] [place] [facility] [address] [id number] [place] [address]- 7895 Mar, [facility] [place] [facility] [address] [id number] [place] [address]- 1977 Mar, [facility] [place] [facility] [address] [id number] [place] [address]- 9355 Mar, [facility] [place] [facility] [address] [id number] [place] [address]- 3953 Mar, [facility] [place] [facility] [address] [id number] [place] [address]- 1177 Mar, [facility] [place] [facility] [address] [id number] [place] [address]- 7775 Mar, [facility] [place] [facility] [address] [id number] [place] [address]- 3782 Mar, [facility] [place] [facility] [address] [id number] [place] [address]- 5521 Mar, [facility] [place] [facility] [address] [id number] [place] [address]- 3289 Mar, [facility] [place] [facility] [address] [id number] [place] [address]- 4790 Mar, [facility] [place] [facility] [address] [id number] [place] [address]- 9724 Mar, [facility] [place] [facility] [address] [id number] [place] [address]- 3897 Mar, [facility] [place] [facility] [address] [id number] [place] [address]- 3586 Mar, [facility] [place] [facility] [address] [id number] [place] [address]- 6033 February, [facility] [place] [facility] [address] [id number] [place] [address]- 6086 February, [facility] [place] [facility] [address] [id number] [place] [address]- 8382 February, [facility] [place] [facility] [address] [id number] [place] [address]- 9124 February, [facility] [place] [facility] [address] [id number] [place] [address]- 7315 February, [facility] [place] [facility] [address] [id number] [place] [address]- 0940 February, [facility] [place] [facility] [address] [id number] [place] [address]- 6576 February, [facility] [place] [facility] [address] [id number] [place] [address]- 6136 February, [facility] [place] [facility] [address] [id number] [place] [address]- 4429 Jan, [facility] [place] [facility] [address] [id number] [place] [address]- 1941 Jan, [facility] [place] [facility] [address] [id number] [place] [address]- 9784 Dec, [facility] [place] [facility] [address] [id number] [place] [address]- 0594 Dec, [facility] [place] [facility] [address] [id number] [place] [address]- 7248 Dec, [facility] [place] [facility] [address] [id number] [place] [address]- 5274 Dec, [facility] [place] [facility] [address] [id number] [place] [address]- 6914 24 Dec, 2013 [facility] [place] [facility] [address] [id number] [place] [address]- 0606 24 Dec, 2013 [facility] [place] [facility] [address] [id number] [place] [address]- 2937 Dec, [facility] [place] [facility] [address] [id number] [place] [address]- 4019 Dec, [facility] [place] [facility] [address] [id number] [place] [address]- 0322 17 Dec, 2013 [facility] [place] [facility] [address] [id number] [place] [address]- 5166 17 Dec, 2013 [facility] [place] [facility] [address] [id number] [place] [address]- 8029 Dec, [facility] [place] [facility] [address] [id number] [place] [address]- 2546 Dec, [facility] [place] [facility] [address] [id number] [place] [address]- 2662 Dec, [facility] [place] [facility] [address] [id number] [place] [address]- 6116 Dec, [facility] [place] [facility] [address] [id number] [place] [address]- 3713 Nov, [facility] [place] [facility] [address] [id number] [place] [address]- 3307 Nov, [facility] [place] [facility] [address] [id number] [place] [address]- 4308 Oct, [facility] [place] [facility] [address] [id number] [place] [address]- 5866 Oct, [facility] [place] [facility] [address] [id number] [place] [address]- 2066 Oct, [facility] [place] [facility] [address] [id number] [place] [address]- 7004 Oct, [facility] [place] [facility] [address] [id number] [place] [address]- 8299 16 Oct, 2013 [facility] [place] [facility] [address] [id number] [place] [address]- 4702 Oct, [facility] [place] [facility] [address] [id number] [place] [address]- 0776 Oct, [facility] [place] [facility] [address] [id number] [place] [address]- 3615 31 Sep, 2013 [facility] [place] [facility] [address] [id number] [place] [address]- 3522 30 Sep, 2013 [facility] [place] [facility] [address] [id number] [place] [address]- 6218 30 Sep, 2013 [facility] [place] [facility] [address] [id number] [place] [address]- 2127 Sep, [facility] [place] [facility] [address] [id number] [place] [address]- 0844 Sep, [facility] [place] [facility] [address] [id number] [place] [address]- 1657 Sep, [facility] [place] [facility] [address] [id number] [place] [address]- 4622 Sep, [facility] [place] [facility] [address] [id number] [place] [address]- 3187 Sep, [facility] [place] [facility] [address] [id number] [place] [address]- 0965 Sep, [facility] [place] [facility] [address] [id number] [place] [address] 2544 Sep, [facility] [place] [facility] [address] [id number] [place] [address]- 7486 Sep, [facility] [place] [facility] [address] [id number] [place] [address]- 0126 Sep, [facility] [place] [facility] [address] [id number] [place] [address]- 3993 Sep, [facility] [place] [facility] [address] [id number] [place] [address]- 1289 16 Sep, 2013 [facility] [place] [facility] [address] [id number] [place] [address]- 9252 Sep, [facility] [place] [facility] [address] [id number] [place] [address]- 3297 Sep, [facility] [place] [facility] [address] [id number] [place] [address]- 5028 Sep, [facility] [place] [facility] [address] [id number] [place] [address]- 9135 Sep, [facility] [place] [facility] [address] [id number] [place] [address]- 1938 Sep, [facility] [place] [facility] [address] [id number] [place] [address]- 4209 Aug, [facility] [place] [facility] [address] [id number] [place] [address]- 2204 Aug, [facility] [place] [facility] [address] [id number] [place] [address]- 4708 Aug, [facility] [place] [facility] [address] [id number] [place] [address]- 3220 Aug, [facility] [place] [facility] [address] [id number], [place] [address]- 4968 Aug, [facility] [place] [facility] [address] [id number], [place] [address]- 7000 Aug, [facility] [place] [facility] [address] [id number] [place] [address]- 6986 Aug, [facility] [place] [facility] [address] [id number], [place] [address]- 4568 Aug, [facility] [place] [facility] [address] [id number], [place] [address]- 0306 Aug, [facility] [place] [facility] [address] [id number] [place] [address]- 3786 Aug, [facility] [place] [facility] [address] [id number] [place] [address]- 1575 Aug, [facility] [place] [facility] [address] [id number] [place] [address]- 8772 Aug, [facility] [place] [facility] [address] [id number] [place] [address]- 3343 Aug, [facility] [place] [facility] [address] [id number] [place] [address]- 7149 Aug, [facility] [place] [facility] [address] [id number] [place] [address]- 1959 Aug, [facility] [place] [facility] [address] [id number] [place] [address]- 7365 Aug, [facility] [place] [facility] [address] [facility] [id number] [place] [address]- 4493 Aug, [facility] [place] [facility] [address] [id number] [place] [address]- 8244 Jul, [facility] [place] [facility] [address] [id number] [place] [address]- 4759 Jul, [facility] [place] [facility] [address] [facility] [id number] [place] [address]- 4458 Jul, [facility] [place] [facility] [address] [id number] [place] [address]- 8358 Jul, [facility] [place] [facility] [address] [id number], [place] [address]- 2609 Jul, [facility] [place] [facility] [address] [id number] [place] [address]- 2881 Jul, [facility] [place] [facility] [address] [facility] [id number] [place] [address] Jul, [facility] [place] [facility] [address] [id number][place] [address] Jun, [facility] [address] [id number] [place] [address]- 3764 20 Jun, 2012 [facility] [address] [id number] [place] [address]- 4672 17 Jun, 2012 [facility] [address] [id number] [place] [address]- 7229 10 Jun, 2012 [facility] [address] [id number] [place] [address]- 0482 06 Jun, 2012 [facility] [address] [id number] [place] [address]- 5866 06 Jun, 2012 [facility] [address] [id number] [place] [address]- 6917 05 Jun, 2012 [facility] [address] [facility] [id number] [place] [address]- 7420 03 Jun, 2012 [facility] [address] [facility] [id number], [place] [address]- 3212 27 May, 2013 [facility] [address] [facility] [id number], [place] [address]- 2104 May, [facility] [address] [facility] [id number], [place] [address]- 4080 15 May, 2013 [facility] [address] [facility] [id number], [place] [address]- 0879 14 May, 2013 [facility] [address] [id number], [place] [address]- 9364 May, [facility] [address] [facility] [id number], [place] [address]- 4599 May, [facility] [address] [facility] [id number], [place] [address]- 8721 May, [facility] [address] [facility] [id number], [place] [address]- 4058 May, IMMUNIZATIONS No Known Immunizations SOCIAL HISTORY Never Assessed REASON FOR VISIT Lab (walk-in) PLAN OF CARE VITAL SIGNS MEDICATIONS Unknown Medications RESULTS Name Result Date Reference Range A1C (IN HOUSE) 2017-12-29 A1C IN HOUSE 6.9 4.3 - 5.6 % Previous A1c 6.5 Lot 0812 Exp date 08/2019 URINE PROTEIN TO CREATININE RATIO 2017-12-29 CREATININE, RANDOM URINE 65 20-320 PROTEIN/CREATININE RATIO 354 21-161 PROTEIN, TOTAL, RANDOM UR 23 5-24 UA W/ MICROSCOPY 2017-12-29 COLOR YELLOW YELLOW APPEARANCE CLEAR CLEAR SPECIFIC GRAVITY 1.015 1.001-1.035 PH < OR=5.0 5.0-8.0 GLUCOSE NEGATIVE NEGATIVE BILIRUBIN NEGATIVE NEGATIVE KETONES NEGATIVE NEGATIVE OCCULT BLOOD NEGATIVE NEGATIVE PROTEIN NEGATIVE NEGATIVE NITRITE NEGATIVE NEGATIVE LEUKOCYTE ESTERASE NEGATIVE NEGATIVE WBC 0-5 < OR=5 RBC 0-2 < OR=2 SQUAMOUS EPITHELIAL CELLS 0-5 < OR=5 BACTERIA NONE SEEN NONE SEEN HYALINE CAST NONE SEEN NONE SEEN PROCEDURES Procedure Date Ordered Result Body Site LAB NOT BILLED BY [employer] December 29, 2017 GLYCATED HEMOGLOBIN TEST December 29, 2017 INSTRUCTIONS MEDICATIONS ADMINISTERED No Known Medications [...] History Left foot cellulitis, left 2nd toe amputation-[facility] 12/23 Hospitalization History Surgery Hospitalizations
--- OUTSIDE RECORDS SUMMARY | 2018-08-22 09:12 | XMS REPORT ---
Author Author [facility] Address [address] [place] [address] Care Team Providers Care Grant Writer Name Role Phone RIVERA FER MCCARTHY Unavailable PROBLEMS Type Condition ICD9-CM Code [id number] Code Onset Dates Condition Status SNOMED Code Problem Subclinical hypothyroidism E03.9 Active 99573850 Problem Hypertriglyceridemia E78.1 Active 433025090 Problem Type 2 diabetes mellitus with diabetic polyneuropathy E11.42 Active 824016799 Problem Type 2 diabetes mellitus with diabetic chronic 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 Active 884845638 Problem Other chronic pain G89.29 Active 00995770 Problem Type 2 diabetes mellitus with other skin complications E11.628 Active 77564696 Problem Pain in left foot M79.672 Active 70257269 Problem Irregular menstrual cycle N92.6 Active 88268130 Problem Pain in right foot M79.671 Active 98401463 Problem Tonsillolith J35.8 Active 1803940 Problem Chronic prescription opiate use Z79.891 Active 376881415 Problem Seasonal allergic rhinitis due to pollen J30.1 Active 77836520 Problem Asthma exacerbation, mild J45.901 Active 839426818 Problem Chronic kidney disease, stage III (moderate) N18.3 Active 617563580 Problem Chronic migraine G43.709 Active 34911301 Problem Moderate persistent asthma without complication J45.40 Active 998377660 Problem Intrinsic eczema L20.84 Active 53533321 Problem Severe episode of recurrent major depressive disorder, without psychotic features F33.2 Active 33794038 Problem Non-pressure chronic ulcer of right heel and midfoot limited to breakdown of skin L97.411 Active 215823102 Problem Ulcer of right heel L97.419 Active 716021978 Problem Obesity E66.9 Active 396536515 Problem Type 2 diabetes mellitus with foot ulcer E11.621 Active 10899359 Problem Essential hypertension I10 Active 93982931 Problem Anxiety disorder, unspecified F41.9 Active 036967694 Problem Type 2 diabetes mellitus with other specified complication E11.69 Active 226732291 Problem Status post amputation of toe of left foot Z89.422 Active 830167400 Problem DM neuro manif type II E11.49 Active 59893174 Problem History of amputation of hallux Z89.419 Active 710779127 ALLERGIES Substance Reaction Event Type Date Status Penicillin V Potassium Unknown Drug Allergy Dec, Active ENCOUNTERS Encounter Location Date Diagnosis [facility] [address] [address] 12 Mar, 2018 Moderate persistent asthma without complication J45.40 [facility] [address] 7[address]- 6744 Mar, Moderate persistent asthma without complication J45.40 [facility] [address] 13949- 9772 Mar, [facility] [address] 58502- 6160 February, Chronic migraine G43.709 [facility] [id number] [place] [address] 59336- 2440 February, Chronic migraine G43.709 [facility] [address] 57315- 5671 February, [facility] [id number] [place] [address] 49902- 0454 February, [facility] [address] 48247- 4676 February, Type 2 diabetes mellitus with diabetic polyneuropathy E11.42 ; Moderate persistent asthma without complication J45.40 ; Type 2 diabetes mellitus with foot ulcer E11.621 ; Non-pressure chronic ulcer of right heel and midfoot limited to breakdown of skin L97.411 ; Chronic migraine G43.709 and BMI 60.0-69.9, adult Z68.44 [facility] [id number] [place] [address] 65499 -8908 Jan, Asthma exacerbation, mild J45.901 ; Seasonal allergic rhinitis due to pollen J30.1 and BMI 60.0-69.9, adult Z68.44 [facility] [id number] [place] [address] 92610- 6635 Jan, [facility] [address] 18578- 7834 Jan, Other chronic pain G89.29 [facility] [address] 16511- 2607 Dec, Type 2 diabetes mellitus with diabetic polyneuropathy E11.42 [facility] [id number] [place] [address] 20025- 1433 Dec, Type 2 diabetes mellitus with diabetic polyneuropathy E11.42 [facility] [address] 13800- 9338 15 Dec, 2017 [place] [address] 53368- 0142 Dec, [facility] [id number] [place] [address] 56660- 1022 Dec, Chronic kidney disease, stage III (moderate) N18.3 [facility] [id number] [place] [address] 97680 -3596 09 Dec, 2017 Nausea R11.0 and Diarrhea, unspecified type R19.7 [facility] [id number] [place] [address] 09707- 7944 Dec, Chronic kidney disease, stage III (moderate) N18.3 and Type 2 diabetes mellitus with diabetic polyneuropathy E11.42 [facility] [id number] [place] [address] 07741- 3948 Dec, [place] [address] 72420- 1811 Nov, Ulcer of right heel L97.419 and Type 2 diabetes mellitus with diabetic polyneuropathy E11.42 [facility] [id number] [place] [address] [id number] Nov, Dental examination Z01.20 [facility] [address] [place] [address] 50749- 4761 Nov, Open wound of right foot, initial encounter S91.301A [facility] [address] [place] [address] 39611 -2336 Nov, Open wound of right foot, initial encounter S91.301A ; Non- intractable vomiting with nausea, unspecified vomiting type R11.2 and BMI 60.0- 69.9, adult Z68.44 [place] [id number] [place] [address] 57450- 7263 Nov, [place] [id number] [place] [address] 01703- 7814 Nov, Other chronic pain G89.29 [place] [id number] [place] [address] 38237- 5114 Oct, Cellulitis of right lower limb L03.115 [facility] [id number] [place] [address] 80708- 7237 Oct, [place] [id number] [place] [address] 98037- 7139 Oct, [place] [id number] [place] [address] 42425- 0901 Oct, Cat scratch W55.03XA ; Cellulitis of right lower limb L03.115 ; Acute nasopharyngitis J00 ; BMI 60.0-69.9, adult Z68.44 and Cough R05 [place] [id number] [place] [address] 58787- 4683 Oct, Cat scratch W55.03XA ; Cutaneous abscess of right lower extremity L02.415 and Cellulitis of right lower limb L03.115 [place] [address] [place] [address] 90739- 2103 Oct, Type 2 diabetes mellitus with diabetic polyneuropathy E11.42 [place] [address] [address] 3120 Oct, Other chronic pain G89.29 [place] [id number] [place] [address] 69015- 3774 Aug, [place] [id number] [place] [address] 39908- 6972 Jul, Other chronic pain G89.29 [place] [id number] [place] [address] 71533- 8317 Jul, [place] [id number] [place] [address] 81755- 9720 Jul, Chronic kidney disease, stage III (moderate) N18.3 [place] [id number] [place] [address] 77626- 7025 Jul, Type 2 diabetes mellitus with diabetic polyneuropathy E11.42 ; Essential hypertension I10 ; Irregular menstrual cycle N92.6 ; Hypertriglyceridemia E78.1 ; Anxiety disorder, unspecified F41.9 ; Severe episode of recurrent major depressive disorder, without psychotic features F33.2 ; Tonsillolith J35.8 ; Intrinsic eczema L20.84 ; Subclinical hypothyroidism E03.9 ; Viral pharyngitis J02.9 and Encounter for immunization Z23 [place] [address] [place] [address] 44329- 2032 13 Jun, 2017 Essential hypertension I10 [place] [id number] [place] [address] 79953- 5715 08 Jun, 2017 [place] [id number] [place] [address] 35107- 8640 Jun, [place] [id number] [place] [address] 18679- 4053 May, Moderate persistent asthma without complication J45.40 [place] [address] [place] [address] 39098- 3540 May, Pain in right foot M79.671 ; Pain in left foot M79.672 ; Other chronic pain G89.29 and Chronic prescription opiate use Z79.891 [facility] [id number] [place] [address] 12455- 2344 May, [facility] [id number] [place] [address] 21875- 6795 May, [facility] [address] 63882- 8558 Apr, [facility] [address] 50189- 0010 Apr, Chronic migraine G43.709 [facility] [address] 63240- 6121 Apr, Essential hypertension I10 ; Hypertriglyceridemia E78.1 and Chronic migraine G43.709 [facility] [address] 81209- 0851 Apr, [facility] [id number] [place] [address] 49106- 7474 Apr, Sore throat J02.9 [facility] [id number] [place] [address] 96785- 1449 Apr, [facility] [id number] [place] [address] 60921- 9075 Mar, Strep pharyngitis J02.0 and Non-intractable vomiting with nausea, unspecified vomiting type R11.2 [facility] [id number] [place] [address] 35379- 9346 Mar, [facility] [address] 55836- 0177 Mar, [facility] [id number] [place] [address] 58240- 3179 Mar, [facility] [address] 35189- 8849 Mar, Type 2 diabetes mellitus with diabetic polyneuropathy E11.42 ; Moderate persistent asthma without complication J45.40 ; Status post amputation of toe of left foot Z89.422 ; Acute seasonal allergic rhinitis, unspecified trigger J30.2 and Left shoulder pain, unspecified chronicity M25.512 [place] [id number] [place] [address] 55917- 1271 Mar, [place] [address] 23001- 1088 February, Pre-op evaluation Z01.818 ; Type 2 diabetes mellitus with diabetic polyneuropathy E11.42 and Type 2 diabetes mellitus with foot ulcer E11.621 [place] [id number] [place] [address] 94371- 4293 February, [place] [address] 04539- 5217 February, [place] [address] 91404- 0246 February, Toe infection L08.9 and Type 2 diabetes mellitus with other specified complication E11.69 [place] [address] 07367- 9216 February, [place] [id number] [place] [address] 14961- 6283 Jan, Type 2 diabetes mellitus with diabetic polyneuropathy E11.42 [place] [id number] [place] [address] 66034- 0093 Jan, [place] [id number] [place] [address] 82247- 3091 Jan, Right upper quadrant pain R10.11 and Intractable vomiting with nausea, unspecified vomiting type R11.2 [place] [id number] [place] [address] 25674- 7170 Jan, Hypertriglyceridemia E78.1 and Essential hypertension I10 [place] [address] 34793- 5388 Jan, Essential hypertension I10 ; Type 2 diabetes mellitus with diabetic polyneuropathy E11.42 and Hypertriglyceridemia E78.1 [facility] [id number] [place] [address] 51466- 7081 Dec, Type 2 diabetes mellitus with diabetic polyneuropathy E11.42 [facility] [id number] [place] [address] 91351- 5806 Dec, Hypertriglyceridemia E78.1 ; Essential hypertension I10 ; Type 2 diabetes mellitus with diabetic polyneuropathy E11.42 ; Anxiety disorder , unspecified F41.9 and Moderate persistent asthma without complication J45.40 [facility] [id number] [place] [address] 31444- 7655 Dec, Type 2 diabetes mellitus with diabetic polyneuropathy E11.42 [facility] [id number] [place] [address] [id number] Dec, [facility] [id number] [place] [address] 92661- 1958 Nov, [facility] [id number] [place] [address] 08533- 7927 Nov, [facility] [id number] [place] [address] 51969- 8081 Nov, [facility] [address] [place] [address] 80901- 4197 Nov, Toe infection L08.9 [facility] [id number] [place] [address] 12797- 3046 Nov, [facility] [id number] [place] [address] 45216- 1434 Oct, History of amputation of hallux Z89.419 [facility] [address] [place] [address] 69125- 1902 Oct, Type 2 diabetes mellitus with diabetic polyneuropathy E11.42 [facility] [address] [address]- 8093 17 Oct, 2016 Type 2 diabetes mellitus with diabetic polyneuropathy E11.42 [facility] [id number] [place] [address] 06808- 6376 Oct, Acute osteomyelitis of left foot M86.172 ; Pre-op exam Z01.818 and Type 2 diabetes mellitus with diabetic polyneuropathy E11.42 [facility] [id number] [place] [address] 69526- 5210 Oct, Foot ulcer, left, with unspecified severity L97.529 ; Acute osteomyelitis of left foot M86.172 and Type 2 diabetes mellitus with diabetic polyneuropathy E11.42 [facility] [id number] [place] [address] 32972- 7897 Sep, [facility] [id number] [place] [address] 17641- 6208 Sep, Intractable vomiting with nausea, unspecified vomiting type R11.2 and Right upper quadrant pain R10.11 [facility] [address] [place] [address] 52100- 2463 Aug, [facility] [id number] [place] [address] 39918- 7374 Jul, [facility] [address] [place] [address] 47928- 3060 Jul, Preop examination Z01.818 [facility] [address] [place] [address] 98631- 3341 Jul, [facility] [address] [place] [address] 67353- 9351 Jul, [facility] [id number] [place] [address] 95831- 6048 Jul, Chronic osteomyelitis of left foot M86.672 and Ulcer of left foot, with unspecified severity L97.529 [facility] [id number] [place] [address] 22253- 4709 Jul, Non-pressure chronic ulcer of other part of left foot with unspecified severity L97.529 [facility] [id number] [place] [address] 25910- 4279 Jul, [facility] [id number] [place] [address] 04788- 4119 Jul, [facility] [id number] [place] [address] 29484- 8182 Jun, [facility] [id number] [place] [address] 12881- 1243 Jun, [facility] [id number] [place] [address] 52536- 8221 Jun, [facility] [id number] [place] [address] 00532- 2543 Jun, Right upper quadrant pain R10.11 [facility] [id number] [place] [address] 95454- 4083 20 Jun, 2016 [facility] [id number] [place] [address] 16976- 3286 19 Jun, 2016 Intractable vomiting with nausea, unspecified vomiting type R11.2 [facility] [address] [place] [address] 13320- 6473 13 Jun, 2016 Right upper quadrant pain R10.11 ; Migraine with aura and with status migrainosus, not intractable G43.101 and Intractable vomiting with nausea, unspecified vomiting type R11.2 [facility] [address] [place] [address] 48830- 8564 12 Jun, 2016 [facility] [id number] [place] [address] 83335- 6893 06 Jun, 2016 Gastroenteritis K52.9 [facility] [id number] [place] [address] 86713- 3310 May, [facility] [id number] [place] [address] 77752- 1426 May, Hypertriglyceridemia E78.1 ; Essential hypertension I10 ; Type 2 diabetes mellitus with diabetic polyneuropathy E11.42 ; Moderate persistent asthma without complication J45.40 ; Type 2 diabetes mellitus with foot ulcer E11.621 ; Other chronic pain G89.29 ; Pain in right leg M79.604 ; Pain of left leg M79.605 ; Rash and nonspecific skin eruption R21 and Anxiety disorder, unspecified F41.9 [place] [address] 69506- 7317 May, Essential hypertension I10 ; Hypertriglyceridemia E78.1 ; Upper respiratory infection J06.9 ; Subclinical hypothyroidism E03.9 and Type 2 diabetes mellitus with diabetic polyneuropathy E11.42 [place] [address] 13217- 8359 Apr, Hypertriglyceridemia E78.1 ; Subclinical hypothyroidism E03.9 ; Essential hypertension I10 and Type 2 diabetes mellitus with diabetic polyneuropathy E11.42 [place] [address] 68450- 3034 Mar, [place] [address] 36517- 7703 Mar, Ulcer of right heel L97.419 [place] [address] 28392- 5087 Mar, [place] [address] 52909- 6132 Mar, [place] [address] 62394- 6946 February, [place] [address] 50826- 9739 February, Ulcer of right heel L97.419 and DM neuro manif type II E11.49 [place] [address] 34566- 9906 Jan, [place] [address] [place] [address]- 1438 Jan, Ulcer of right heel L97.419 ; Type 2 diabetes mellitus with foot ulcer E11.621 and Non-pressure chronic ulcer of other part of left foot with unspecified severity L97.529 [facility] [id number] [place] [address] 10083- 6297 Jan, [facility] [id number] [place] [address] 22818- 1147 Jan, [place] [id number] [place] [address] 77366- 3390 Jan, Infection of toenail L03.039 [place] [id number] [place] [address] 82690- 5620 Jan, Blister of toe of left foot, initial encounter S90.425A and Type 2 diabetes mellitus with diabetic polyneuropathy E11.42 [place] [id number] [place] [address] 13158- 4507 Jan, [facility] [id number] [place] [address] 46268 -3493 Jan, Sore throat J02.9 and Strep pharyngitis J02.0 [place] [address] [place] [address] 23875- 3220 Dec, Type 2 diabetes mellitus with diabetic polyneuropathy E11.42 ; Upper respiratory infection J06.9 ; Cough R05 and Asthma exacerbation J45.901 [place] [address] [place] [address] 01999- 2246 Oct, [place] [id number] [place] [address] 62326- 4342 Oct, [facility] [id number] [place] [address] 23748- 2473 Oct, [place] [id number] [place] [address] 49577- 6945 Oct, [place] [address] [place] [address] 31431- 6322 Sep, [place] [id number] [place] [address] 02473- 4301 Aug, Anxiety disorder, unspecified F41.9 and Obesity E66.9 [place] [id number] [place] [address] 84532- 9977 Aug, Moderate persistent asthma without complication J45.40 [place] [id number] [place] [address] 48252- 6777 Aug, Anxiety disorder, unspecified F41.[address] 95147- 6083 Aug, Chronic migraine G43.709 ; Encounter for immunization Z23 ; Hypertriglyceridemia E78.1 ; Type 2 diabetes mellitus with diabetic polyneuropathy E11.42 ; Moderate persistent asthma without complication J45.40 and Morbid obesity E66.01 [place] [id number] [place] [address] 93927- 5189 Jul, [address] 20264- 6927 Jul, [place] [id number] [place] [address] 22404- 0840 Jul, [place] [id number] [place] [address] 00792- 3287 Jul, Subclinical hypothyroidism E03.9 [place] [id number] [place] [address] 52865- 3243 Jun, Essential hypertension, benign 401.1 ; Diabetic ulcer of lower extremity 250.80 ; Asthma 493.90 ; Diabetes mellitus type II, uncontrolled 250.02 and Hyperlipidemia associated with type 2 diabetes mellitus 250.80 [place] [id number] [place] [address] 35380- 7100 Jun, [place] [address] 43617- 8668 Jun, [facility] [address] [address]- 9385 May, [facility] [address] 8997 Apr, [facility] [id number] [place] [address] 015760- 4557 Apr, Viral upper respiratory infection 465.9 and Asthma 493.90 [facility] [id number] [address]- 7760 Mar, Abnormal ankle brachial index 796.4 [facility] [id number] [place] [address] 66491- 6177 February, [facility] [id number] [place] [address] 68510- 1689 February, Essential hypertension, benign 401.1 [facility] [address] [place] [address] 72740- 9653 February, Diabetic peripheral neuropathy 250.60 ; Ulcer of heel and midfoot 707.14 and Decreased pedal pulses 785.9 [facility] [address] [address]- 5706 February, [facility] [address] [address]- 6453 February, [facility] [address] [address]- 5659 Jan, [facility] [facility] [id number] [address] Jan, [facility] [address] [id number] Dec, [facility] [id number] [address] Dec, [facility] [id number] [place] [address]269 Nov, 2014 [facility] [place] [facility] [address] [id number] [place] [address] 5306 Nov, 2014 [facility] [place] [facility] [address] [id number] [place] [address] 4676 Nov, 2014 [facility] [place] [facility] [address] [facility] [id number] [place] [address] 7156 Nov, 2014 [facility] [place] [facility] [address] [id number] [place] [address]- 0267 Nov, 2014 [facility] [place] [facility] [address] [id number] [place] [address]- 0506 Nov, 2014 [facility] [place] [facility] [address] [facility] [id number] [place] [address] 4106 Nov, 2014 [facility] [place] [facility] [address] [facility] [id number] [place] [address] 2770 Nov, [facility] [place] [facility] [address] [facility] [id number] [place] [address]- 6838 Nov, [facility] [place] [facility] [address] [id number] [address] 6858 Oct, [facility] [place] [facility] [address] [facility] [id number] [place] [address]- 1823 Oct, [facility] [place] [facility] [address] [facility] [id number] [place] [address] 2540 Oct, [facility] [place] [facility] [address] [facility] [id number] [place] [address]- 2542 Oct, [facility] [place] [facility] [address] [id number] [place] [address]- 9289 Oct, [facility] [place] [facility] [address] [facility] [id number] [place] [address]- 8530 Oct, [facility] [place] [facility] [address] [facility] [id number] [place] [address]- 9328 Oct, [facility] [address] [id number] [place] [address] 1990 Oct, [facility] [place] [facility] [address] [id number] [place] [address]- 3920 Oct, [facility] [place] [facility] [address] [id number] [place] [address]- 8637 Oct, [facility] [place] [facility] [address] [id number] [place] [address]- 3083 Oct, [facility] [place] [facility] [address] [id number] [place] [address]- 9198 Oct, [facility] [place] [facility] [address] [id number] [place] [address]- 5103 Oct, [facility] [place] [facility] [address] [id number] [place] [address]- 5808 Sep, [facility] [place] [facility] [address] [id number] [place] [address]- 5834 Sep, [facility] [place] [facility] [address] [id number] [place] [address]- 7116 Sep, [facility] [place] [facility] [address] [id number] [place] [address]- 5598 Sep, [facility] [place] [facility] [address] [id number] [place] [address]- 5493 Sep, [facility] [place] [facility] [address] [id number] [place] [address]- 0970 Sep, [facility] [place] [facility] [address] [id number] [place] [address]- 8318 Sep, [facility] [place] [facility] [address] [id number] [place] [address]- 9485 Sep, [facility] [place] [facility] [address] [id number] [place] [address] Sep, [facility] [place] [facility] [address] [id number] [address]- 8653 Sep, [facility] [place] [facility] [address] [id number] [place] [address]- 2533 Sep, [facility] [place] [facility] [address] [id number] [place] [address]- 9891 Sep, [facility] [place] [facility] [address] [facility] [id number] [place] [address]- 8321 Sep, [facility] [place] [facility] [address] [id number] [place] [address]- 1201 Sep, [facility] [place] [facility] [address] [id number] [place] [address]- 0987 Sep, [facility] [place] [facility] [address] [id number] [place] [address]- 4826 Sep, [facility] [place] [facility] [address] [facility] [id number] [place] [address]- 4198 Aug, [facility] [place] [facility] [address] [id number] [place] [address]- 5565 Aug, [facility] [place] [facility] [address] [facility] [id number] [place] [address]- 0742 Aug, [facility] [place] [facility] [address] [facility] [id number] [place] [address]- 5545 Aug, [facility] [place] [facility] [address] [facility] [id number] [address]- 7739 Aug, [facility] [place] [facility] [address] [id number] [address]- 2642 Aug, [facility] [place] [facility] [address] [id number] [place] [address]- 8382 Aug, [facility] [place] [facility] [address] [facility] [id number] [place] [address]- 3990 Aug, [facility] [place] [facility] [address] [facility] [id number] [place] [address]- 1275 Jul, [facility] [place] [facility] [address] [id number] [place] [address]- 6156 31 Jul, 2014 [facility] [place] [facility] [address] [id number] [place] [address]- 4112 30 Jul, 2014 [facility] [place] [facility] [address] [id number] [place] [address]- 2586 Jul, [facility] [place] [facility] [address] [id number] [place] [address]- 8686 15 Jul, 2014 [facility] [place] [facility] [address] [id number] [place] [address]- 2323 Jun, [facility] [place] [facility] [address] [id number] [place] [address]- 6780 Jun, [facility] [place] [facility] [address] [id number] [place] [address]- 9505 Jun, [facility] [place] [facility] [address] [id number] [place] [address]- 2221 Jun, [facility] [place] [facility] [address] [id number] [place] [address]- 8106 Jun, [facility] [place] [facility] [address] [id number] [place] [address]- 2687 May, [facility] [place] [facility] [address] [id number] [place] [address]- 8872 May, [facility] [place] [facility] [address] [id number] [place] [address]- 3084 Apr, [facility] [place] [facility] [address] [id number] [place] [address]- 7966 Apr, [facility] [place] [facility] [address] [id number] [place] [address]- 9163 Apr, [facility] [place] [facility] [address] [id number] [place] [address]- 4876 Apr, [facility] [place] [facility] [address] [id number] [place] [address]- 4151 Apr, [facility] [place] [facility] [address] [id number] [place] [address]- 7090 Apr, [facility] [place] [facility] [address] [id number] [place] [address]- 4426 Mar, [facility] [place] [facility] [address] [id number] [place] [address]- 5364 Mar, [facility] [place] [facility] [address] [id number] [place] [address]- 3828 Mar, [facility] [place] [facility] [address] [id number] [place] [address]- 1978 Mar, [facility] [place] [facility] [address] [id number] [place] [address]- 5255 Mar, [facility] [place] [facility] [address] [id number] [place] [address]- 4354 Mar, [facility] [place] [facility] [address] [id number] [place] [address]- 7392 Mar, [facility] [place] [facility] [address] [id number] [place] [address]- 8671 Mar, [facility] [place] [facility] [address] [id number] [place] [address]- 6437 Mar, [facility] [place] [facility] [address] [id number] [address]- 5902 Mar, [facility] [place] [facility] [address] [id number] [place] [address]- 6516 Mar, [facility] [place] [facility] [address] [id number] [place] [address]- 8980 Mar, [facility] [place] [facility] [address] [id number] [place] [address]- 1309 Mar, [facility] [place] [facility] [address] [id number] [place] [address]- 7969 Mar, [facility] [place] [facility] [address] [id number] [place] [address]- 4181 Mar, [facility] [place] [facility] [address] [id number] [place] [address]- 9054 Mar, [facility] [place] [facility] [address] [id number] [place] [address]- 6160 February, [facility] [place] [facility] [address] [id number] [place] [address]- 2527 February, [facility] [place] [facility] [address] [id number] [place] [address]- 8911 February, [facility] [place] [facility] [address] [id number] [place] [address]- 8198 February, [facility] [place] [facility] [address] [id number] [place] [address]- 0063 February, [facility] [place] [facility] [address] [id number] [place] [address]- 3194 February, [facility] [place] [facility] [address] [id number] [place] [address]- 1302 February, [facility] [place] [facility] [address] [id number] [place] [address]- 5203 February, [facility] [place] [facility] [address] [id number] [place] [address]- 2186 Jan, [facility] [place] [facility] [address] [id number] [place] [address]- 8401 Jan, [facility] [place] [facility] [address] [id number] [place] [address]- 5737 Dec, [facility] [place] [facility] [address] [id number] [place] [address]- 5888 Dec, [facility] [place] [facility] [address] [id number] [place] [address]- 7161 Dec, [facility] [place] [facility] [address] [id number] [place] [address]- 8607 Dec, [facility] [place] [facility] [address] [id number] [place] [address]- 2353 24 Dec, 2013 [facility] [place] [facility] [address] [id number] [place] [address]- 4901 24 Dec, 2013 [facility] [place] [facility] [address] [id number] [place] [address]- 2061 19 Dec, 2013 [facility] [place] [facility] [address] [id number] [place] [address]- 4740 19 Dec, 2013 [facility] [place] [facility] [address] [id number] [place] [address]- 4229 17 Dec, 2013 [facility] [place] [facility] [address] [id number] [place] [address]- 6487 17 Dec, 2013 [facility] [place] [facility] [address] [id number] [place] [address]- 6502 14 Dec, 2013 [facility] [place] [facility] [address] [id number] [place] [address]- 2543 14 Dec, 2013 [facility] [place] [facility] [address] [id number] [place] [address]- 5891 Dec, [facility] [place] [facility] [address] [id number] [place] [address]- 5775 Dec, [facility] [place] [facility] [address] [id number] [place] [address]- 0424 Nov, [facility] [place] [facility] [address] [id number] [place] [address]- 7771 Nov, [facility] [place] [facility] [address] [id number] [place] [address]- 7107 Oct, [facility] [place] [facility] [address] [id number] [place] [address]- 4159 Oct, [facility] [place] [facility] [address] [id number] [place] [address]- 3234 Oct, [facility] [place] [facility] [address] [id number] [place] [address]- 2765 Oct, [facility] [address] [id number] [place] [address]- 0168 Oct, [facility] [place] [facility] [address] [id number] [place] [address]- 7910 Oct, [facility] [place] [facility] [address] [id number] [place] [address]- 4243 Oct, [facility] [place] [facility] [address] [id number] [place] [address]- 1060 Sep, [facility] [place] [facility] [address] [id number] [place] [address]- 8055 Sep, [facility] [place] [facility] [address] [id number] [place] [address]- 0873 Sep, [facility] [place] [facility] [address] [id number] [place] [address]- 8915 Sep, [facility] [place] [facility] [address] [id number] [place] [address]- 4183 Sep, [facility] [place] [facility] [address] [id number] [place] [address]- 1025 Sep, [facility] [place] [facility] [address] [id number] [place] [address]- 6019 Sep, [facility] [place] [facility] [address] [id number] [place] [address]- 5603 Sep, [facility] [place] [facility] [address] [id number] [place] [address]- 3503 Sep, [facility] [place] [facility] [address] [id number] [place] [address]- 9194 Sep, [facility] [place] [facility] [address] [id number] [place] [address]- 9119 Sep, [facility] [place] [facility] [address] [id number] [place] [address]- 4170 Sep, [facility] [place] [facility] [address] [id number] [place] [address]- 7376 16 Sep, 2013 [facility] [address] [id number] [place] [address]- 0581 16 Sep, 2013 [facility] [address] [id number] [place] [address]- 3272 Sep, [facility] [address] [id number] [place] [address]- 9372 Sep, [facility] [address] [id number] [place] [address]- 4599 Sep, [facility] [address] [id number] [place] [address]- 9934 Sep, [facility] [address] [id number] [place] [address]- 7034 Sep, [facility] [address] [id number] [place] [address]- 2913 Aug, [facility] [address] [id number] [place] [address]- 6068 Aug, [facility] [address] [id number] [place] [address]- 9412 Aug, [facility] [address] [id number] [place] [address]- 8924 Aug, [facility] [address] [id number] [place] [address]- 8850 Aug, [facility] [address] [id number] [place] [address]- 2541 Aug, [facility] [place] [facility] [address] [id number] [place] [address]- 6122 Aug, [facility] [address] [id number] [place] [address]- 7577 Aug, [facility] [address] [id number] [place] [address]- 5330 Aug, [facility] [place] [facility] [address] [id number] [place] [address]- 5929 Aug, [facility] [place] [facility] [address] [id number] [place] [address]- 0395 Aug, [facility] [place] [facility] [address] [id number] [place] [address]- 7788 Aug, [facility] [place] [facility] [address] [id number] [place] [address]- 5585 Aug, [facility] [place] [facility] [address] [id number] [place] [address]- 2001 Aug, [facility] [place] [facility] [address] [id number] [place] [address]- 4881 Aug, [facility] [place] [facility] [address] [id number] [place] [address]- 4239 Aug, [facility] [place] [facility] [address] [id number] [place] [address]- 9287 Aug, [facility] [place] [facility] [address] [id number] [place] [address]- 8427 Jul, [facility] [place] [facility] [address] [id number] [address]- 2132 Jul, [facility] [place] [facility] [address] [id number] [place] [address]- 3361 Jul, [facility] [place] [facility] [address] [id number] [place] [address]- 4687 Jul, [facility] [place] [facility] [address] [id number] [place] [address]- 1934 Jul, [facility] [place] [facility] [address] [id number] [place] [address]- 2378 Jul, [facility] [place] [facility] [address] [id number] [place] 9427 Jul, [facility] [place] [facility] [address] [id number] [place] [address]- 5883 27 Sep, 2012 [facility] [address] [id number] [place] [address] 2546 20 Sep, 2012 [facility] [address] [id number] [place] [address] 2546 17 Sep, 2012 [facility] [address] [id number] [place] [address] 2546 10 Sep, 2012 [facility] [address] [id number] [place] [address] 2546 06 Sep, 2012 [facility] [address] [id number] [place] [address]- 1532 06 Sep, 2012 [facility] [address] [id number] [place] [address]- 4020 05 Sep, 2012 [facility] [address] [facility] [id number] [place] [address]- 6201 03 Jun, 2012 [facility] [address] [id number] [place] [address]- 4812 27 May, 2012 [facility] [address] [id number] [place] [address]- 9951 22 May, 2013 [facility] [address] [facility] [id number] [place] [address]- 0383 15 May, 2013 [facility] [address] [facility] [id number] [address]- 8988 14 May, 2013 [facility] [address] [id number] [place] [address]- 2541 12 May, 2013 [facility] [address] [id number] [place] [address]- 8333 11 May, 2013 [facility] [address] [facility] [id number] [place] [address]- 2424 09 May, 2013 [facility] [address] [facility] [id number] [place] [address]- 4206 08 May, 2013 IMMUNIZATIONS No Known Immunizations SOCIAL HISTORY Never Assessed REASON FOR VISIT N/V/D that started last kbullardrn PLAN OF CARE Activity Details Follow Up prn Reason: VITAL SIGNS Height 62 in 2017-12-31 Weight 347.8 lbs 2017-12-31 Temperature 97.6 degrees Fahrenheit 2017-12-31 Heart Rate 90 bpm 2017-12-31 Respiratory Rate 20 2017-12-31 BMI 63.61 kg/m2 2017-12-31 Blood pressure systolic 130 mmHg 2017-12-31 Blood pressure diastolic 82 mmHg 2017-12-31 MEDICATIONS Medication Instructions Dosage Frequency Start Date End Date Duration Status Albuterol Sulfate 90 mcg/actuation Inhalation every 4-6 hours as needed 2 puffs May, Active Hydrochlorothiazide 25 MG TAKE ONE TABLET BY MOUTH ONCE DAILY 90 Active Bactrim DS 800-160 MG Orally Twice a day 1 tablet 12h Oct, 10 day(s) Not-Taking Gabapentin 300 MG TAKE ONE CAPSULE BY MOUTH THREE TIMES DAILY 90 Active Metformin HCl 1000 MG Orally 2 times a day 1 tablet with meals 12h 90 days Active NovoLog Flexpen 100 UNIT/ML Subcutaneous 3 times a day 30 units 8h Active Levemir Flexpen 100 UNIT/ML subcutaneously 2 times a day 50 units 12h Active Montelukast Sodium 10 MG TAKE ONE TABLET BY MOUTH ONCE DAILY IN THE EVENING 90 Active Nystatin 016325 unit/gm apply to the affected area(s) by Topical route 4- 8 times per day as needed Jun, Active Cromolyn Sodium 4 % Ophthalmic 2 times a day 2 drops into affected eye as needed 12h 18 Feb, 2017 Active Multivitamin 1 Tablet 1 time per day May, Active Test strips One Touch Ultra as directed 6h Dec, Active Zofran 8 MG Orally every 8 hours, PRN as directed Dec, Active Promethazine HCl 25 MG Orally every 4 hours 1 tablet as needed 4h 20 Jun, 2016 Active Wheelchair DX Diabetic Foot Ulcers Sep, Not-Taking Fenofibrate 160 MG TAKE ONE TABLET BY MOUTH ONCE DAILY WITH A MEAL 90 Active Triamcinolone Acetonide 0.1 % Externally Twice a day 1 application to affected area 12h Jul, 14 days Active Sertraline HCl 100 MG Orally Once a day 1 tablet 24h 90 days Active Rizatriptan Benzoate 10 mg Orally PRN 1 tablet as needed at onset of headache , may repeat in 2 hours x 2 if needed Apr, Active Lisinopril 40 MG TAKE ONE TABLET BY MOUTH ONCE DAILY 90 Active Probiotic - Active Clindamycin HCl 300 MG Orally every 8 hrs take along with 150mg capsule 1 capsule Nov, 14 days Not-Taking Loratadine 10 mg Orally Once a day 1 tablet 24h 90 Active Atorvastatin Calcium 80 MG Orally Once a day 1 tablet 24h 30 Active Zofran ODT 8 MG as directed Nov, Not-Taking Ibuprofen 200 mg Orally 3 times a day 4 tablet as needed 8h Not- Taking Hydrocodone-Acetaminophen 5-325 MG Orally every 4- 6 hrs as needed 1 tablet Nov, Not-Taking Metoprolol Tartrate 50 MG TAKE ONE TABLET BY MOUTH TWICE DAILY WITH FOOD 90 Active Pulmicort Flexhaler 90 MCG/ACT INHALE ONE PUFF BY MOUTH TWICE DAILY 30 Active Tessalon Perles 100 MG Orally Three times a day,PRN 1 capsule as needed Oct, Active Excedrin Migraine 250-250-65 MG Orally as directed 2 tablets as needed Active Proventil HFA 108 (90 Base) MCG/ACT INHALE TWO PUFFS BY MOUTH EVERY 4 TO 6 HOURS NEEDED 17 Not-Taking Phenergan 25 MG Rectal every 4-6 hours as needed 1 suppository as needed Sep, Not-Taking Glucometer One Touch Ultra as directed Dec, Active RESULTS No Results [...] heel of feet Surgical History appendectomy [facility] 1995 Surgical History salpingectomy [facility] Surgical History bladder surgery-stretch [facility] 2003 Surgical History exploratory laparoscopy [facility] 1995 Surgical History amputation, toe (R great) Surgical History amputation, (R forefoot) 2014 Surgical History amputation, toe Left second 12/2016 Surgical History amputation, 4th left toe 02/2017 Hospitalization History Left foot cellulitis, left 2nd toe amputation-[facility] 12/23 Hospitalization History Surgery Hospitalizations
--- OUTSIDE RECORDS SUMMARY | 2018-08-22 09:13 | XMS REPORT ---
Author Author LUDIVINA STEPHNAIE [facility] Address [address] [place] [address] Care Team Providers Care Indirect Sales Exec Name Role Phone DEE DEE FLORENCEHANY Unavailable PROBLEMS Type Condition ICD9-CM Code [id number] Code Onset Dates Condition Status SNOMED Code Problem Subclinical hypothyroidism E03.9 Active 80097234 Problem Hypertriglyceridemia E78.1 Active 602622690 Problem Type 2 diabetes mellitus with diabetic polyneuropathy E11.42 Active 843586988 Problem Type 2 diabetes mellitus with diabetic chronic 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 Active 638873497 Problem Other chronic pain G89.29 Active 18094510 Problem Type 2 diabetes mellitus with other skin complications E11.628 Active 67130604 Problem Pain in left foot M79.672 Active 90764862 Problem Irregular menstrual cycle N92.6 Active 38049564 Problem Pain in right foot M79.671 Active 51771526 Problem Tonsillolith J35.8 Active 1571738 Problem Chronic prescription opiate use Z79.891 Active 205326586 Problem Seasonal allergic rhinitis due to pollen J30.1 Active 61511332 Problem Asthma exacerbation, mild J45.901 Active 178289043 Problem Chronic kidney disease, stage III (moderate) N18.3 Active 359233550 Problem Chronic migraine G43.709 Active 00977376 Problem Moderate persistent asthma without complication J45.40 Active 399506653 Problem Intrinsic eczema L20.84 Active 65665109 Problem Severe episode of recurrent major depressive disorder, without psychotic features F33.2 Active 58397469 Problem Non-pressure chronic ulcer of right heel and midfoot limited to breakdown of skin L97.411 Active 330865935 Problem Ulcer of right heel L97.419 Active 190361121 Problem Obesity E66.9 Active 983881907 Problem Type 2 diabetes mellitus with foot ulcer E11.621 Active 39583167 Problem Essential hypertension I10 Active 65920656 Problem Anxiety disorder, unspecified F41.9 Active 959764196 Problem Type 2 diabetes mellitus with other specified complication E11.69 Active 181884731 Problem Status post amputation of toe of left foot Z89.422 Active 827217260 Problem DM neuro manif type II E11.49 Active 53248310 Problem History of amputation of hallux Z89.419 Active 336441801 ALLERGIES No Information ENCOUNTERS Encounter Location Date Diagnosis [facility] [address] [address] 12 Mar, 2018 Moderate persistent asthma without complication J45.40 [facility] [address] [address]- [address] 07 Mar, 2018 Moderate persistent asthma without complication J45.40 [facility] [address] 7[address]- [address] Mar, [facility] [address] 8[address]- [address]34 February, Chronic migraine G43.709 [facility] [address] [address]- 2847 February, Chronic migraine G43.709 [facility] [address] 08778- 7755 February, [facility] [address] 8[address]- 3[address] February, [facility] [address] 23879- 96[address] February, Type 2 diabetes mellitus with diabetic polyneuropathy E11.42 ; Moderate persistent asthma without complication J45.40 ; Type 2 diabetes mellitus with foot ulcer E11.621 ; Non-pressure chronic ulcer of right heel and midfoot limited to breakdown of skin L97.411 ; Chronic migraine G43.709 and BMI 60.0-69.9, adult Z68.44 [facility] [id number] [place] [address]119 -[address]56 Jan, 2018 Asthma exacerbation, mild J45.901 ; Seasonal allergic rhinitis due to pollen J30.1 and BMI 60.0-69.9, adult Z68.44 [facility] [id number] [place] [address] 29330- 4113 Jan, [place] [address] [address]25- 7140 Jan, Other chronic pain G89.29 [facility] [id number] [place] [address] 99591- 2522 30 Dec, 2017 Type 2 diabetes mellitus with diabetic polyneuropathy E11.42 [facility] [id number] [place] [address] 05365- 0516 Dec, Type 2 diabetes mellitus with diabetic polyneuropathy E11.42 [place] [address] 18032- 6795 15 Dec, 2017 [place] [address] 29195- 6472 14 Dec, 2017 [place] [id number] [place] [address] 30782- 7815 13 Dec, 2017 Chronic kidney disease, stage III (moderate) N18.3 [facility] [id number] [place] [address] 65325 -5539 09 Dec, 2017 Nausea R11.0 and Diarrhea, unspecified type R19.7 [place] [id number] [place] [address] 14662- 4495 07 Dec, 2017 Chronic kidney disease, stage III (moderate) N18.3 and Type 2 diabetes mellitus with diabetic polyneuropathy E11.42 [facility] [id number] [place] [address] 57912- 3108 Dec, [place] [address] 17700- 3093 Nov, Ulcer of right heel L97.419 and Type 2 diabetes mellitus with diabetic polyneuropathy E11.42 [facility] [id number] [place] [address] [id number] Nov, Dental examination Z01.20 [facility] [address] [place] [address] 22755- 6618 Nov, Open wound of right foot, initial encounter S91.301A [facility] [id number] [place] [address] 92651 -1804 Nov, Open wound of right foot, initial encounter S91.301A ; Non- intractable vomiting with nausea, unspecified vomiting type R11.2 and BMI 60.0- 69.9, adult Z68.44 [facility] [id number] [place] [address] 87969- 7077 Nov, [place] [address] 68123- 7314 Nov, Other chronic pain G89.29 [place] [address] 35596- 8739 Oct, Cellulitis of right lower limb L03.115 [facility] [id number] [place] [address] 11223- 7188 Oct, [place] [address] 41748- 0605 Oct, [place] [id number] [place] [address] 75637- 7767 Oct, Cat scratch W55.03XA ; Cellulitis of right lower limb L03.115 ; Acute nasopharyngitis J00 ; BMI 60.0-69.9, adult Z68.44 and Cough R05 [place] [id number] [place] [address] 83094- 8939 Oct, Cat scratch W55.03XA ; Cutaneous abscess of right lower extremity L02.415 and Cellulitis of right lower limb L03.115 [place] [id number] [place] [address] 51498- 1687 Oct, Type 2 diabetes mellitus with diabetic polyneuropathy E11.42 [place] [address] [place] [address] 5811 Oct, Other chronic pain G89.29 [place] [id number] [place] [address] 03353- 7388 Aug, [place] [id number] [place] [address] 30653- 4177 Jul, Other chronic pain G89.29 [place] [address] 00052- 7463 Jul, [place] [address] 51205- 5621 Jul, Chronic kidney disease, stage III (moderate) N18.3 [place] [address] 64270- 2822 Jul, Type 2 diabetes mellitus with diabetic polyneuropathy E11.42 ; Essential hypertension I10 ; Irregular menstrual cycle N92.6 ; Hypertriglyceridemia E78.1 ; Anxiety disorder, unspecified F41.9 ; Severe episode of recurrent major depressive disorder, without psychotic features F33.2 ; Tonsillolith J35.8 ; Intrinsic eczema L20.84 ; Subclinical hypothyroidism E03.9 ; Viral pharyngitis J02.9 and Encounter for immunization Z23 [place] [id number] [place] [address] 59843- 8037 13 Jun, 2017 Essential hypertension I10 [place] [id number] [place] [address] 54856- 6518 08 Jun, 2017 [place] [id number] [place] [address] 01214- 3199 Jun, [place] [id number] [place] [address] 52241- 1817 May, Moderate persistent asthma without complication J45.40 [place] [id number] [place] [address] 77572- 7928 May, Pain in right foot M79.671 ; Pain in left foot M79.672 ; Other chronic pain G89.29 and Chronic prescription opiate use Z79.891 [facility] [id number] [place] [address] 82227- 4719 May, [facility] [id number] [place] [address] 66075- 5869 May, [facility] [id number] [place] [address] 74822- 1377 Apr, [facility] [id number] [place] [address] 07764- 0948 Apr, Chronic migraine G43.709 [facility] [address] 40376- 0120 Apr, Essential hypertension I10 ; Hypertriglyceridemia E78.1 and Chronic migraine G43.709 [facility] [id number] [place] [address] 26673- 6105 Apr, [facility] [id number] [place] [address] 53225- 2340 Apr, Sore throat J02.9 [facility] [id number] [place] [address] 24152- 2092 Apr, [facility] [id number] [place] [address] 11040- 0255 Mar, Strep pharyngitis J02.0 and Non-intractable vomiting with nausea, unspecified vomiting type R11.2 [facility] [id number] [place] [address] 42019- 8725 Mar, [facility] [id number] [place] [address] 51174- 5545 Mar, [facility] [id number] [place] [address] 98210- 1309 Mar, [facility] [id number] [place] [address] 70893- 2241 Mar, Type 2 diabetes mellitus with diabetic polyneuropathy E11.42 ; Moderate persistent asthma without complication J45.40 ; Status post amputation of toe of left foot Z89.422 ; Acute seasonal allergic rhinitis, unspecified trigger J30.2 and Left shoulder pain, unspecified chronicity M25.512 [place] [id number] [place] [address] 80689- 6471 Mar, [place] [id number] [place] [address] 20832- 6619 February, Pre-op evaluation Z01.818 ; Type 2 diabetes mellitus with diabetic polyneuropathy E11.42 and Type 2 diabetes mellitus with foot ulcer E11.621 [place] [id number] [place] [address] 58433- 9909 February, [place] [id number] [place] [address] 16104- 3701 February, [place] [id number] [place] [address] 81178- 4812 February, Toe infection L08.9 and Type 2 diabetes mellitus with other specified complication E11.69 [place] [id number] [place] [address] 55323- 0232 February, [place] [id number] [place] [address] 66810- 2179 Jan, Type 2 diabetes mellitus with diabetic polyneuropathy E11.42 [place] [id number] [place] [address] 82937- 0297 Jan, [place] [id number] [place] [address] 26121- 3319 Jan, Right upper quadrant pain R10.11 and Intractable vomiting with nausea, unspecified vomiting type R11.2 [place] [id number] [place] [address] 67878- 0273 Jan, Hypertriglyceridemia E78.1 and Essential hypertension I10 [place] [id number] [place] [address] 16254- 0109 Jan, Essential hypertension I10 ; Type 2 diabetes mellitus with diabetic polyneuropathy E11.42 and Hypertriglyceridemia E78.1 [facility] [id number] [place] [address] 61833- 0496 16 Dec, 2016 Type 2 diabetes mellitus with diabetic polyneuropathy E11.42 [facility] [id number] [place] [address] 83999- 2697 15 Dec, 2016 Hypertriglyceridemia E78.1 ; Essential hypertension I10 ; Type 2 diabetes mellitus with diabetic polyneuropathy E11.42 ; Anxiety disorder , unspecified F41.9 and Moderate persistent asthma without complication J45.40 [facility] [id number] [place] [address] 98599- 0237 Dec, Type 2 diabetes mellitus with diabetic polyneuropathy E11.42 [facility] [id number] [place] [address] [id number] Dec, [facility] [address] 94031- 3596 Nov, [facility] [id number] [place] [address] 21906- 5145 Nov, [facility] [id number] [place] [address] 33443- 1212 Nov, [facility] [id number] [place] [address] 04713- 9470 Nov, Toe infection L08.9 [facility] [id number] [place] [address] 05091- 4036 Nov, [facility] [id number] [place] [address] 76508- 0869 Oct, History of amputation of hallux Z89.419 [facility] [id number] [place] [address] 15920- 6936 Oct, Type 2 diabetes mellitus with diabetic polyneuropathy E11.42 [facility] [id number] [place] [address] 92724- 2584 Oct, Type 2 diabetes mellitus with diabetic polyneuropathy E11.42 [facility] [address] [address]- 7663 Oct, Acute osteomyelitis of left foot M86.172 ; Pre-op exam Z01.818 and Type 2 diabetes mellitus with diabetic polyneuropathy E11.42 [facility] [address] [address]- 1900 Oct, Foot ulcer, left, with unspecified severity L97.529 ; Acute osteomyelitis of left foot M86.172 and Type 2 diabetes mellitus with diabetic polyneuropathy E11.42 [facility] [id number] [place] [address] 52993- 8146 Sep, [facility] [id number] [place] [address] 20087- 1105 Sep, Intractable vomiting with nausea, unspecified vomiting type R11.2 and Right upper quadrant pain R10.11 [facility] [id number] [place] [address] 21539- 1261 Aug, [facility] [id number] [place] [address] 70532- 6210 Jul, [facility] [id number] [place] [address] 98747- 9238 Jul, Preop examination Z01.818 [facility] [address] [place] [address] 14634- 5486 Jul, [facility] [address] [address]- 7195 Jul, [facility] [id number] [place] [address] 78707- 0810 Jul, Chronic osteomyelitis of left foot M86.672 and Ulcer of left foot, with unspecified severity L97.529 [facility] [address] [address]- 0646 Jul, Non-pressure chronic ulcer of other part of left foot with unspecified severity L97.529 [facility] [address] [address]- 3107 Jul, [facility] [id number] [place] [address] 98934- 8890 Jul, [facility] [id number] [place] [address] 91849- 6289 Jun, [facility] [id number] [place] [address] 35878- 6705 Jun, [facility] [id number] [place] [address] 37098- 5093 Jun, [facility] [id number] [place] [address] 84193- 2626 21 Jun, 2016 Right upper quadrant pain R10.11 [facility] [id number] [place] [address] 47962- 3741 20 Jun, 2016 [facility] [id number] [place] [address] 27025- 8566 19 Jun, 2016 Intractable vomiting with nausea, unspecified vomiting type R11.2 [facility] [id number] [place] [address] 80433- 2611 13 Jun, 2016 Right upper quadrant pain R10.11 ; Migraine with aura and with status migrainosus, not intractable G43.101 and Intractable vomiting with nausea, unspecified vomiting type R11.2 [facility] [address] [place] [address] 07927- 2306 12 Jun, 2016 [facility] [id number] [place] [address] 68151- 2994 Jun, Gastroenteritis K52.9 [facility] [id number] [place] [address] 34385- 6497 May, [facility] [id number] [place] [address] 43752- 1581 May, Hypertriglyceridemia E78.1 ; Essential hypertension I10 ; Type 2 diabetes mellitus with diabetic polyneuropathy E11.42 ; Moderate persistent asthma without complication J45.40 ; Type 2 diabetes mellitus with foot ulcer E11.621 ; Other chronic pain G89.29 ; Pain in right leg M79.604 ; Pain of left leg M79.605 ; Rash and nonspecific skin eruption R21 and Anxiety disorder, unspecified F41.9 [place] [address] 51664- 5761 May, Essential hypertension I10 ; Hypertriglyceridemia E78.1 ; Upper respiratory infection J06.9 ; Subclinical hypothyroidism E03.9 and Type 2 diabetes mellitus with diabetic polyneuropathy E11.42 [place] [address] 74600- 2940 Apr, Hypertriglyceridemia E78.1 ; Subclinical hypothyroidism E03.9 ; Essential hypertension I10 and Type 2 diabetes mellitus with diabetic polyneuropathy E11.42 [place] [address] 73146- 2133 Mar, [place] [address] 96217- 4664 Mar, Ulcer of right heel L97.419 [place] [id number] [place] [address] 80337- 7180 Mar, [place] [id number] [place] [address] 87499- 6483 Mar, [place] [id number] [place] [address] 21331- 9435 February, [place] [address] 42364- 5457 February, Ulcer of right heel L97.419 and DM neuro manif type II E11.49 [place] [id number] [place] [address] 33650- 5756 Jan, [place] [address] 02244- 3034 Jan, Ulcer of right heel L97.419 ; Type 2 diabetes mellitus with foot ulcer E11.621 and Non-pressure chronic ulcer of other part of left foot with unspecified severity L97.529 [facility] [id number] [place] [address] 56060- 0346 Jan, [facility] [id number] [place] [address] 78652- 9437 Jan, [place] [id number] [place] [address] 65179- 7018 Jan, Infection of toenail L03.039 [place] [address] 98894- 0834 Jan, Blister of toe of left foot, initial encounter S90.425A and Type 2 diabetes mellitus with diabetic polyneuropathy E11.42 [place] [id number] [place] [address] 93253- 9149 Jan, [facility] [id number] [place] [address] 53417 -1864 Jan, Sore throat J02.9 and Strep pharyngitis J02.0 [place] [id number] [place] [address] 37464- 8178 Dec, Type 2 diabetes mellitus with diabetic polyneuropathy E11.42 ; Upper respiratory infection J06.9 ; Cough R05 and Asthma exacerbation J45.901 [place] [id number] [place] [address] 61407- 9492 Oct, [place] [id number] [place] [address] 00161- 8404 Oct, [facility] [id number] [place] [address] 16308- 2493 Oct, [facility] [id number] [place] [address] 13631- 5935 Oct, [facility] [id number] [place] [address] 70706- 2364 Sep, [place] [address] [place] [address] 05808- 6194 Aug, Anxiety disorder, unspecified F41.9 and Obesity E66.9 [place] [id number] [place] [address] 28551- 1384 Aug, Moderate persistent asthma without complication J45.[address] 77311- 3850 Aug, Anxiety disorder, unspecified F41.9 [place] [id number] [place] [address] 74100- 9927 Aug, Encounter for immunization Z23 ; Chronic migraine G43.709 ; Hypertriglyceridemia E78.1 ; Type 2 diabetes mellitus with diabetic polyneuropathy E11.42 ; Moderate persistent asthma without complication J45.40 and Morbid obesity E66.01 [place] [id number] [place] [address] 75783- 4772 Jul, [place] [id number] [place] [address] 56689- 6406 Jul, [place] [id number] [place] [address] 36296- 9406 Jul, [place] [id number] [place] [address] 64352- 8542 Jul, Subclinical hypothyroidism E03.9 [place] [id number] [place] [address] 47141- 0785 Jun, Essential hypertension, benign 401.1 ; Diabetic ulcer of lower extremity 250.80 ; Asthma 493.90 ; Diabetes mellitus type II, uncontrolled 250.02 and Hyperlipidemia associated with type 2 diabetes mellitus 250.80 [place] [id number] [place] [address] 16457- 0628 Jun, [place] [id number] [place] [address] 35574- 6796 Jun, [address] [address]- 2120 May, [facility] [id number] [place] [address] 56910- 3222 Apr, [facility] [id number] [place] [address] 88682- 8999 Apr, Viral upper respiratory infection 465.9 and Asthma 493.90 [facility] [id number] [place] [address] 75114- 3198 Mar, Abnormal ankle brachial index 796.4 [facility] [id number] [place] [address] 29336- 7834 February, [facility] [id number] [place] [address] 50944- 5906 February, Essential hypertension, benign 401.1 [facility] [id number] [place] [address] 71526- 7848 February, Diabetic peripheral neuropathy 250.60 ; Ulcer of heel and midfoot 707.14 and Decreased pedal pulses 785.9 [facility] [id number] [place] [address] 52363- 8454 February, [facility] [id number] [place] [address] 60006- 3847 February, [facility] [id number] [place] [address] 45176- 1686 Jan, [facility] [id number] [place] [address] 25574- 1099 Jan, [facility] [id number] [place] [address] 28347- 1605 Dec, [facility] [id number] [place] [address] 19328- 9589 Dec, [facility] [id number] [address] Nov, [facility] [place] [facility] [address] [id number] [place] [address] Nov, 2014 [facility] [place] [facility] [address] [id number] [place] [address] Nov, 2014 [facility] [place] [facility] [address] [id number] [place] [address] Nov, 2014 [facility] [place] [facility] [address] [id number] [place] [address] 2546 Nov, 2014 [facility] [place] [facility] [address] [id number] [place] [address] Nov, 2014 [facility] [place] [facility] [address] [id number] [place] [address] Nov, 2014 [facility] [facility] [address] [id number] [place] [address] Nov, [facility] [place] [facility] [address] [id number] [place] [address] Nov, [facility] [place] [facility] [address] [id number] [place] [address] Oct, [facility] [place] [facility] [address] [id number] [place] [address]285 Oct, [facility] [place] [facility] [address] [id number] [place] [address] 2541 Oct, [facility] [place] [facility] [address] [id number] [place] [address] 2549 Oct, [facility] [place] [facility] [address] [id number] [place] [address] 2540 Oct, [facility] [place] [facility] [address] [id number] [place] [address] 2545 Oct, [facility] [place] [facility] [address] [id number] [place] [address] 0165 Oct, [facility] [place] [facility] [address] [id number] [place] [address]- 7982 Oct, [facility] [address] [id number] [place] [address] 7723 Oct, [facility] [place] [facility] [address] [id number] [place] [address] 6607 Oct, [facility] [place] [facility] [address] [id number] [place] [address]- 9220 Oct, [facility] [place] [facility] [address] [id number] [place] [address] 6370 Oct, [facility] [place] [facility] [address] [id number] [place] [address]- 5894 Oct, [facility] [place] [facility] [address] [id number] [place] [address]- 9535 Sep, [facility] [place] [facility] [address] [id number] [place] [address]- 5421 Sep, [facility] [place] [facility] [address] [id number] [place] [address]- 8301 Sep, [facility] [place] [facility] [address] [id number] [place] [address]- 2443 Sep, [facility] [place] [facility] [address] [id number] [place] [address]- 1784 Sep, [facility] [place] [facility] [address] [id number] [place] [address]- 7191 Sep, [facility] [place] [facility] [address] [id number] [place] [address]- 9868 Sep, [facility] [place] [facility] [address] [id number] [place] [address]- 5709 Sep, [facility] [place] [facility] [address] [id number] [place] [address]- 2849 Sep, [facility] [place] [facility] [address] [id number] [place] [address]- 0210 Sep, [facility] [place] [facility] [address] [id number] [place] [address] Sep, [facility] [place] [facility] [address] [id number] [place] Sep, [facility] [place] [facility] [address] [id number] [place] [address]- 2299 Sep, [facility] [place] [facility] [address] [id number] [place] [address] Sep, [facility] [place] [facility] [address] [id number] [place] [address]- 7608 Sep, [facility] [place] [address] [id number] [place] [address]- 0923 Sep, [facility] [place] [facility] [address] [id number] [place] [address]- 2155 Aug, [facility] [place] [facility] [address] [id number] [place] [address]- 4704 Aug, [facility] [address] [id number] [place] [address]- 9909 Aug, [facility] [address] [id number] [place] [address]- 7930 Aug, [facility] [address] [id number] [place] [address]- 2466 Aug, [facility] [address] [id number] [place] [address]- 6689 Aug, [facility] [place] [address] [id number] [place] [address]- 1995 Aug, [facility] [facility] [address] [id number] [place] [address]- 4812 Aug, [facility] [address] [id number] [place] [address]- 8226 Jul, [facility] [place] [address] [id number] [place] [address]- 6607 Jul, [facility] [place] [address] [id number] [place] [address]- 4059 30 Jul, 2014 [facility] [address] [id number] [place] [address]- 1456 Jul, [facility] [address] [id number] [place] [address]- 7297 Jul, [facility] [address] [id number] [place] [address]- 1197 Jun, [facility] [address] [id number] [place] [address]- 6692 Jun, [facility] [address] [id number] [place] [address]- 4397 Jun, [facility] [address] [id number] [place] [address]- 8785 Jun, [facility] [address] [id number] [place] [address]- 4682 Jun, [facility] [address] [id number] [place] [address]- 0036 May, [facility] [address] [id number] [place] [address]- 1737 May, [facility] [address] [id number] [place] [address]- 0642 Apr, [facility] [address] [id number] [place] [address]- 0069 Apr, [facility] [address] [id number] [place] [address]- 6847 Apr, [facility] [address] [id number] [place] [address]- 3958 Apr, [facility] [address] [id number] [place] [address] Apr, [facility] [address] [id number] [place] [address]- 3230 Apr, [facility] [address] [id number] [place] [address]- 0257 Mar, [facility] [address] [id number] [place] [address]- 8834 Mar, [facility] [address] [id number] [place] [address]- 8353 Mar, [facility] [address] [id number] [place] [address]- 0650 Mar, [facility] [address] [id number] [place] [address]- 4030 Mar, [facility] [address] [id number] [place] [address]- 8399 Mar, [facility] [address] [id number] [place] [address]- 2978 Mar, [facility] [address] [id number] [place] [address]- 4569 Mar, [facility] [address] [id number] [place] [address]- 9189 Mar, [facility] [address] [id number] [place] [address]- 4499 Mar, [facility] [address] [id number] [place] [address]- 8297 Mar, [facility] [address] [id number] [place] [address]- 9629 Mar, [facility] [address] [id number] [place] [address]- 9142 Mar, [facility] [address] [id number] [place] [address]- 3009 Mar, [facility] [address] [id number] [place] [address]- 7469 Mar, [facility] [address] [id number] [place] [address]- 0073 Mar, [facility] [address] [id number] [place] [address]- 0595 February, [facility] [address] [id number] [place] [address]- 3875 February, [facility] [address] [id number] [place] [address]- 9047 February, [facility] [address] [id number] [place] [address]- 8741 February, [facility] [address] [id number] [place] [address]- 4668 February, [facility] [address] [id number] [place] [address]- 9841 February, [facility] [address] [id number] [place] [address]- 3718 February, [facility] [address] [id number] [place] [address]- 5273 February, [facility] [address] [id number] [place] [address]- 3684 Jan, [facility] [address] [id number] [place] [address]- 2425 Jan, [facility] [address] [id number] [place] [address]- 5229 Dec, [facility] [address] [id number] [place] [address]- 6533 Dec, [facility] [address] [id number] [place] [address]- 4206 Dec, [facility] [address] [id number] [place] [address]- 9309 Dec, [facility] [address] [id number] [place] [address]- 5181 24 Dec, 2013 [facility] [address] [id number] [place] [address]- 1530 24 Dec, 2013 [facility] [address] [id number] [place] [address]- 6198 Dec, [facility] [address] [id number] [place] [address]- 2448 Dec, [facility] [address] [id number] [place] [address]- 6979 17 Dec, 2013 [facility] [address] [id number] [place] [address]- 3004 17 Dec, 2013 [facility] [address] [id number] [place] [address]- 3197 Dec, [facility] [address] [id number] [place] [address]- 9101 Dec, [facility] [address] [id number] [place] [address]- 7676 Dec, [facility] [address] [id number] [place] [address]- 5670 Dec, [facility] [address] [id number] [place] [address]- 6563 Nov, [facility] [address] [id number] [place] [address]- 8888 Nov, [facility] [address] [id number] [place] [address]- 7299 Oct, [facility] [address] [id number] [place] [address]- 1116 Oct, [facility] [address] [id number] [place] [address]- 3100 Oct, [facility] [address] [id number] [place] [address]- 3856 Oct, [facility] [address] [id number] [place] [address]- 1779 16 Oct, 2013 [facility] [address] [id number] [place] [address]- 9028 Oct, [facility] [address] [id number] [place] [address]- 5156 Oct, [facility] [address] [id number] [place] [address]- 2841 31 Sep, 2013 [facility] [address] [id number] [place] [address]- 1135 30 Sep, 2013 [facility] [address] [id number] [place] [address]- 0472 30 Sep, 2013 [facility] [address] [id number] [place] [address]- 7621 Sep, [facility] [address] [id number] [place] [address]- 5206 Sep, [facility] [address] [id number] [place] [address]- 0024 Sep, [facility] [address] [id number] [place] [address]- 5207 Sep, [facility] [address] [id number] [place] [address]- 7253 Sep, [facility] [address] [id number] [place] [address]- 5056 Sep, [facility] [address] [id number] [place] [address] 2540 Sep, [facility] [address] [id number] [place] [address]- 5746 Sep, [facility] [address] [id number] [place] [address]- 8576 Sep, [facility] [address] [id number] [place] [address]- 3549 Sep, [facility] [address] [id number] [place] [address]- 9087 16 Sep, 2013 [facility] [address] [id number] [place] [address]- 5848 Sep, [facility] [address] [id number] [place] [address]- 9918 Sep, [facility] [address] [id number] [place] [address]- 2308 Sep, [facility] [address] [id number] [place] [address]- 1102 Sep, [facility] [address] [id number] [place] [address]- 9113 Sep, [facility] [address] [id number] [place] [address]- 2414 Aug, [facility] [address] [id number] [place] [address]- 9673 Aug, [facility] [address] [id number] [place] [address]- 5220 Aug, [facility] [address] [id number] [place] [address]- 1642 Aug, [facility] [address] [id number], [place] [address]- 9534 Aug, [facility] [address] [id number], [place] [address]- 5375 Aug, [facility] [address] [id number] [place] [address]- 3159 Aug, [facility] [address] [id number], [place] [address]- 4478 Aug, [facility] [address] [id number], [place] [address]- 6440 Aug, [facility] [address] [id number] [place] [address]- 9847 Aug, [facility] [facility] [address] [id number] [place] [address]- 9957 Aug, [facility] [facility] [address] [id number] [place] [address]- 5051 Aug, [facility] [place] [facility] [address] [id number] [place] [address]- 7121 Aug, [facility] [place] [facility] [address] [id number] [place] [address]- 7752 Aug, [facility] [address] [id number] [place] [address]- 3723 Aug, [facility] [place] [facility] [address] [id number] [place] [address]- 9020 Aug, [facility] [address] [facility] [id number] [place] [address]- 9272 Aug, [facility] [place] [facility] [address] [id number] [place] [address]- 4948 Jul, [facility] [place] [facility] [address] [id number] [place] [address]- 3620 Jul, [facility] [facility] [address] [facility] [id number] [place] [address]- 5189 Jul, [facility] [place] [facility] [address] [id number] [place] [address]- 3300 Jul, [facility] [address] [id number], [place] [address]- 1267 Jul, [facility] [place] [facility] [address] [id number] [place] [address]- 6740 Jul, [facility] [place] [facility] [address] [facility] [id number] [place] [address] Jul, [facility] [place] [facility] [address] [id number] [address]84 Jun, [facility] [address] [id number], [place] [address]- 5397 20 Jun, 2012 [facility] [address] [id number] [place] [address]- 1899 17 Jun, 2012 [facility] [address] [facility] [id number], [place] [address]- 5535 10 Jun, 2012 [facility] [address] [id number] [place] [address]- 9916 06 Jun, 2012 [facility] [address] [id number] [place] [address]- 0066 06 Jun, 2012 [facility] [address] [id number] [place] [address]- 5198 05 Jun, 2012 [facility] [address] [facility] [id number] [place] [address]- 4522 03 Jun, 2012 [facility] [address] [facility] [id number], [place] [address]- 3129 May, [facility] [address] [facility] [id number], [place] [address]- 7067 May, [facility] [address] [id number], [place] [address]- 3612 15 May, 2013 [facility] [address] [id number], [place] [address]- 4135 May, [facility] [address] [id number], [place] [address]- 6989 May, [facility] [address] [facility] [id number], [place] [address]- 2005 May, [facility] [address] [facility] [id number], [place] [address]- 0018 May, [facility] [address] [facility] [id number], [place] [address]- 3349 May, IMMUNIZATIONS No Known Immunizations SOCIAL HISTORY Never Assessed REASON FOR VISIT Requests return call PLAN OF CARE VITAL SIGNS MEDICATIONS Medication Instructions Dosage Frequency Start Date End Date Duration Status Metformin HCl 1000 MG Orally 2 times a day 1 tablet with meals 12h 90 days Active RESULTS No Results PROCEDURES [...] of feet Surgical History appendectomy Davida Walsh [facility] 1995 Surgical History salpingectomy Davida Walsh [facility] Surgical History bladder surgery-stretch Davida Antunez 2003 Surgical History exploratory laparoscopy [facility] 1995 Surgical History amputation, toe (R great) Surgical History amputation, (R forefoot) 2014 Surgical History amputation, toe Left second 12/2016 Surgical History amputation, 4th left toe 02/2017 Hospitalization History Left foot cellulitis, left 2nd toe amputation-[facility] 12/23 Hospitalization History Surgery Hospitalizations
--- OUTSIDE RECORDS SUMMARY | 2018-08-22 09:14 | XMS REPORT ---
Author Author LUDIVINA STEPHANIE [facility] Address [address] [place] [address] Care Team Providers Care Building Rental Manager Name Role Phone FARNAZ FLORENCEY Unavailable PROBLEMS Type Condition ICD9-CM Code WFX83-CI Code Onset Dates Condition Status SNOMED Code Problem Subclinical hypothyroidism E03.9 Active 25783586 Problem Hypertriglyceridemia E78.1 Active 530564862 Problem Type 2 diabetes mellitus with diabetic polyneuropathy E11.42 Active 450373237 Problem Type 2 diabetes mellitus with diabetic chronic 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 Active 283044186 Problem Other chronic pain G89.29 Active 80092867 Problem Type 2 diabetes mellitus with other skin complications E11.628 Active 06821318 Problem Pain in left foot M79.672 Active 99087182 Problem Irregular menstrual cycle N92.6 Active 96798917 Problem Pain in right foot M79.671 Active 89154218 Problem Tonsillolith J35.8 Active 0547350 Problem Chronic prescription opiate use Z79.891 Active 094396676 Problem Seasonal allergic rhinitis due to pollen J30.1 Active 88763690 Problem Asthma exacerbation, mild J45.901 Active 748056109 Problem Chronic kidney disease, stage III (moderate) N18.3 Active 898158409 Problem Chronic migraine G43.709 Active 92972234 Problem Moderate persistent asthma without complication J45.40 Active 560276399 Problem Intrinsic eczema L20.84 Active 31667774 Problem Severe episode of recurrent major depressive disorder, without psychotic features F33.2 Active 30371513 Problem Non-pressure chronic ulcer of right heel and midfoot limited to breakdown of skin L97.411 Active 461103929 Problem Ulcer of right heel L97.419 Active 131358587 Problem Obesity E66.9 Active 012118613 Problem Type 2 diabetes mellitus with foot ulcer E11.621 Active 54478774 Problem Essential hypertension I10 Active 19349512 Problem Anxiety disorder, unspecified F41.9 Active 242924912 Problem Type 2 diabetes mellitus with other specified complication E11.69 Active 009456773 Problem Status post amputation of toe of left foot Z89.422 Active 988748183 Problem DM neuro manif type II E11.49 Active 64842857 Problem History of amputation of hallux Z89.419 Active 116177415 ALLERGIES No Information ENCOUNTERS Encounter Location Date Diagnosis [facility] [id number] [place] [address] 81438- 2051 February, [facility] [address] 95127- 3546 February, [place] [address] 67258- 9312 February, Type 2 diabetes mellitus with diabetic polyneuropathy E11.42 ; Moderate persistent asthma without complication J45.40 ; Type 2 diabetes mellitus with foot ulcer E11.621 ; Non-pressure chronic ulcer of right heel and midfoot limited to breakdown of skin L97.411 ; Chronic migraine G43.709 and BMI 60.0-69.9, adult Z68.44 [facility] [address] [address] Jan, Asthma exacerbation, mild J45.901 ; Seasonal allergic rhinitis due to pollen J30.1 and BMI 60.0-69.9, adult Z68.44 [facility] [id number] [place] [address] 13038- 4286 Jan, [facility] [address] 22771- 0628 Jan, Other chronic pain G89.29 [facility] [address] 74582- 3022 Dec, Type 2 diabetes mellitus with diabetic polyneuropathy E11.42 [facility] [id number] [place] [address] 10729- 0229 Dec, Type 2 diabetes mellitus with diabetic polyneuropathy E11.42 [facility] [address] 67558- 0509 Dec, [place] [id number] [place] [address] 99536- 5253 14 Dec, 2017 [place] [id number] [place] [address] 64442- 0947 13 Dec, 2017 Chronic kidney disease, stage III (moderate) N18.3 [facility] [place] [id number] [place] [address] 81268 -7050 09 Dec, 2017 Nausea R11.0 and Diarrhea, unspecified type R19.7 [place] [address] 9[address]88- 1997 07 Dec, 2017 Chronic kidney disease, stage III (moderate) N18.3 and Type 2 diabetes mellitus with diabetic polyneuropathy E11.42 [place] [id number] [place] [address] 21445- 1252 06 Dec, 2017 [place] [address] 83073- 4351 Nov, Ulcer of right heel L97.419 and Type 2 diabetes mellitus with diabetic polyneuropathy E11.42 [facility] [address] [id number] Nov, Dental examination Z01.20 [place] [id number] [place] [address] 88634- 5625 Nov, Open wound of right foot, initial encounter S91.301A [facility] [place] [id number] [place] [address] 74725 -2699 Nov, Open wound of right foot, initial encounter S91.301A ; Non- intractable vomiting with nausea, unspecified vomiting type R11.2 and BMI 60.0- 69.9, adult Z68.44 [place] [id number] [place] [address] 69306- 4391 Nov, [place] [id number] [place] [address] 29871- 4712 16 Nov, 2017 Other chronic pain G89.29 [place] [address] [place] [address] 35084- 1351 Oct, Cellulitis of right lower limb L03.115 [place] [id number] [place] [address] 20182- 0759 Oct, [place] [id number] [place] [address] 45643- 3065 Oct, [place] [address] 03536- 7851 Oct, Cat scratch W55.03XA ; Cellulitis of right lower limb L03.115 ; Acute nasopharyngitis J00 ; BMI 60.0-69.9, adult Z68.44 and Cough R05 [place] [id number] [place] [address] 75275- 0766 Oct, Cat scratch W55.03XA ; Cutaneous abscess of right lower extremity L02.415 and Cellulitis of right lower limb L03.115 [place] [id number] [place] [address] 64547- 3044 Oct, Type 2 diabetes mellitus with diabetic polyneuropathy E11.42 [place] [id number] [place] [address] 47264- 4280 Oct, Other chronic pain G89.29 [place] [id number] [place] [address] 19972- 2186 Aug, [place] [id number] [place] [address] 70982- 3386 Jul, Other chronic pain G89.29 [place] [id number] [place] [address] 66111- 5153 Jul, [place] [id number] [place] [address] 51241- 3535 Jul, Chronic kidney disease, stage III (moderate) N18.3 [place] [address] 91595- 1661 Jul, Type 2 diabetes mellitus with diabetic polyneuropathy E11.42 ; Essential hypertension I10 ; Irregular menstrual cycle N92.6 ; Hypertriglyceridemia E78.1 ; Anxiety disorder, unspecified F41.9 ; Severe episode of recurrent major depressive disorder, without psychotic features F33.2 ; Tonsillolith J35.8 ; Intrinsic eczema L20.84 ; Subclinical hypothyroidism E03.9 ; Viral pharyngitis J02.9 and Encounter for immunization Z23 [place] [address] 43841- 6530 13 Jun, 2017 Essential hypertension I10 [place] [address] 91317- 5888 08 Jun, 2017 [place] [address] 04690- 8291 Jun, [place] [address] 89600- 3174 May, Moderate persistent asthma without complication J45.40 [place] [address] 48236- 3869 17 May, 2017 Pain in right foot M79.671 ; Pain in left foot M79.672 ; Other chronic pain G89.29 and Chronic prescription opiate use Z79.891 [place] [id number] [place] [address] 29573- 1473 May, [place] [address] 45645- 8574 May, [place] [id number] [place] [address] 03222- 0054 Apr, [place] [address] 57554- 3900 Apr, Chronic migraine G43.709 [place] [address] 23152- 0737 Apr, Essential hypertension I10 ; Hypertriglyceridemia E78.1 and Chronic migraine G43.709 [place] [address] [place] [address] 70025- 2077 Apr, [place] [id number] [place] [address] 07450- 9767 Apr, Sore throat J02.9 [place] [id number] [place] [address] 98351- 4308 Apr, [place] [address] 24434- 6246 Mar, Strep pharyngitis J02.0 and Non-intractable vomiting with nausea, unspecified vomiting type R11.2 [place] [address] 43412- 0644 Mar, [place] [address] 25530- 7308 Mar, [place] [id number] [place] [address] 18616- 0468 Mar, [place] [id number] [place] [address] 63662- 7030 Mar, Type 2 diabetes mellitus with diabetic polyneuropathy E11.42 ; Moderate persistent asthma without complication J45.40 ; Status post amputation of toe of left foot Z89.422 ; Acute seasonal allergic rhinitis, unspecified trigger J30.2 and Left shoulder pain, unspecified chronicity M25.512 [place] [id number] [place] [address] 22052- 2974 Mar, [place] [id number] [place] [address] 31909- 4241 February, Pre-op evaluation Z01.818 ; Type 2 diabetes mellitus with diabetic polyneuropathy E11.42 and Type 2 diabetes mellitus with foot ulcer E11.621 [place] [id number] [place] [address] 85327- 0087 February, [place] [address] [place] [address]- 4981 February, [place] [id number] [place] [address] 40440- 2245 February, Toe infection L08.9 and Type 2 diabetes mellitus with other specified complication E11.69 [place] [id number] [place] [address] 87226- 2989 February, [place] [address] 42713- 1500 Jan, Type 2 diabetes mellitus with diabetic polyneuropathy E11.42 [place] [id number] [place] [address] 04577- 6115 Jan, [place] [id number] [place] [address] 44513- 3954 11 Jan, 2017 Right upper quadrant pain R10.11 and Intractable vomiting with nausea, unspecified vomiting type R11.2 [place] [id number] [place] [address] 06867- 4514 Jan, Hypertriglyceridemia E78.1 and Essential hypertension I10 [place] [id number] [place] [address] 23009- 8650 07 Jan, 2017 Essential hypertension I10 ; Type 2 diabetes mellitus with diabetic polyneuropathy E11.42 and Hypertriglyceridemia E78.1 [place] [id number] [place] [address] 72208- 1662 16 Dec, 2016 Type 2 diabetes mellitus with diabetic polyneuropathy E11.42 [place] [id number] [place] [address] 09773- 3102 15 Dec, 2016 Hypertriglyceridemia E78.1 ; Essential hypertension I10 ; Type 2 diabetes mellitus with diabetic polyneuropathy E11.42 ; Anxiety disorder , unspecified F41.9 and Moderate persistent asthma without complication J45.40 [place] [id number] [place] [address] 28149- 0980 15 Dec, 2016 Type 2 diabetes mellitus with diabetic polyneuropathy E11.42 [place] [id number] [address] Dec, [facility] [address] [place] [address] 73199- 9922 Nov, [facility] [address] [address]- 3347 Nov, [facility] [address] [place] [address] 27169- 4845 Nov, [facility] [address] [place] [address] 22326- 9957 Nov, Toe infection L08.9 [facility] [id number] [place] [address] 38399- 1130 Nov, [facility] [address] [place] [address] 14982- 7510 Oct, History of amputation of hallux Z89.419 [facility] [address] [place] [address] 27233- 0484 Oct, Type 2 diabetes mellitus with diabetic polyneuropathy E11.42 [facility] [address] [place] [address] 19879- 2738 17 Oct, 2016 Type 2 diabetes mellitus with diabetic polyneuropathy E11.42 [facility] [address] [address]- 2190 Oct, Acute osteomyelitis of left foot M86.172 ; Pre-op exam Z01.818 and Type 2 diabetes mellitus with diabetic polyneuropathy E11.42 [facility] [id number] [address]- 7762 Oct, Foot ulcer, left, with unspecified severity L97.529 ; Acute osteomyelitis of left foot M86.172 and Type 2 diabetes mellitus with diabetic polyneuropathy E11.42 [facility] [address] [address]- 1447 Sep, [facility] [address] [address]- 7347 Sep, Intractable vomiting with nausea, unspecified vomiting type R11.2 and Right upper quadrant pain R10.11 [facility] [id number] [place] [address] 36384- 7338 Aug, [facility] [id number] [place] [address] 81900- 9774 Jul, [facility] [id number] [place] [address] 62869- 0194 Jul, Preop examination Z01.818 [facility] [id number] [place] [address] 88894- 6290 Jul, [facility] [id number] [place] [address] 11055- 0088 Jul, [facility] [id number] [place] [address] 94282- 9733 Jul, Chronic osteomyelitis of left foot M86.672 and Ulcer of left foot, with unspecified severity L97.529 [facility] [address] [place] [address] 80046- 1627 Jul, Non-pressure chronic ulcer of other part of left foot with unspecified severity L97.529 [facility] [address] [address]- 7668 Jul, [facility] [address] [place] [address] 00943- 3802 Jul, [facility] [address] [place] [address] 73672- 5159 Jun, [facility] [id number] [place] [address] 23245- 8423 Jun, [facility] [address] [place] [address] 88930- 1260 Jun, [facility] [id number] [place] [address] 53710- 2731 Jun, Right upper quadrant pain R10.11 [place] [id number] [place] [address] 30294- 8931 Jun, [place] [id number] [place] [address] 04889- 6993 19 Jun, 2016 Intractable vomiting with nausea, unspecified vomiting type R11.2 [place] [id number] [place] [address] 15450- 5550 13 Jun, 2016 Right upper quadrant pain R10.11 ; Migraine with aura and with status migrainosus, not intractable G43.101 and Intractable vomiting with nausea, unspecified vomiting type R11.2 [place] [id number] [place] [address] 69017- 1646 12 Jun, 2016 [place] [id number] [place] [address] 56833- 8998 Jun, Gastroenteritis K52.9 [place] [id number] [place] [address] 25991- 5346 May, [place] [id number] [place] [address] 34799- 2282 May, Hypertriglyceridemia E78.1 ; Essential hypertension I10 ; Type 2 diabetes mellitus with diabetic polyneuropathy E11.42 ; Moderate persistent asthma without complication J45.40 ; Type 2 diabetes mellitus with foot ulcer E11.621 ; Other chronic pain G89.29 ; Pain in right leg M79.604 ; Pain of left leg M79.605 ; Rash and nonspecific skin eruption R21 and Anxiety disorder, unspecified F41.9 [place] [address] [place] [address] 85152- 6030 May, Essential hypertension I10 ; Hypertriglyceridemia E78.1 ; Upper respiratory infection J06.9 ; Subclinical hypothyroidism E03.9 and Type 2 diabetes mellitus with diabetic polyneuropathy E11.42 [place] [id number] [place] [address] 53164- 0292 21 Lev, 2016 Hypertriglyceridemia E78.1 ; Subclinical hypothyroidism E03.9 ; Essential hypertension I10 and Type 2 diabetes mellitus with diabetic polyneuropathy E11.42 [place] [id number] [place] [address] 78944- 2717 Mar, [facility] [address] [place] [address] 51137- 6420 Mar, Ulcer of right heel L97.419 [place] [id number] [place] [address] 64176- 3091 Mar, [place] [id number] [place] [address] 31896- 5548 Mar, [place] [id number] [place] [address] 28639- 6709 February, [place] [id number] [place] [address] 45633- 7295 February, Ulcer of right heel L97.419 and DM neuro manif type II E11.49 [place] [address] [place] [address] 46303- 2064 Jan, [place] [id number] [place] [address] 02032- 1943 Jan, Ulcer of right heel L97.419 ; Type 2 diabetes mellitus with foot ulcer E11.621 and Non-pressure chronic ulcer of other part of left foot with unspecified severity L97.529 [place] [address] [address]- 0222 Jan, [place] [address], [place] [address]- 5564 Jan, [place] [address] [place] [address] 07313- 9514 Jan, Infection of toenail L03.039 [place] [address], [place] [address]- 6153 Jan, Blister of toe of left foot, initial encounter S90.425A and Type 2 diabetes mellitus with diabetic polyneuropathy E11.42 [facility] [id number] [place] [address] 20456- 7427 Jan, [facility] [id number] [place] [address] 96013 -7680 Jan, Sore throat J02.9 and Strep pharyngitis J02.0 [facility] [address] 74111- 2733 Dec, Type 2 diabetes mellitus with diabetic polyneuropathy E11.42 ; Upper respiratory infection J06.9 ; Cough R05 and Asthma exacerbation J45.901 [place] [address] 62821- 4259 Oct, [place] [address] 73515- 0580 Oct, [facility] [id number] [place] [address] 12224- 7974 Oct, [facility] [id number] [place] [address] 49965- 3331 Oct, [place] [id number] [place] [address] 62875- 0701 Sep, [facility] [id number] [place] [address] 28008- 3483 Aug, Anxiety disorder, unspecified F41.9 and Obesity E66.9 [facility] [id number] [place] [address] 76599- 4514 Aug, Moderate persistent asthma without complication J45.40 [place] [address] 23293- 2621 Aug, Anxiety disorder, unspecified F41.9 [place] [id number] [place] [address] 65811- 8071 Aug, Chronic migraine G43.709 ; Encounter for immunization Z23 ; Hypertriglyceridemia E78.1 ; Type 2 diabetes mellitus with diabetic polyneuropathy E11.42 ; Moderate persistent asthma without complication J45.40 and Morbid obesity E66.01 [place] [address] 85413- 8308 Jul, [facility] [address] 17959- 1282 Jul, [place] [address] 46582- 9297 Jul, [place] [address] 81349- 3581 Jul, Subclinical hypothyroidism E03.[address] 39727- 0617 Jun, Essential hypertension, benign 401.1 ; Diabetic ulcer of lower extremity 250.80 ; Asthma 493.90 ; Diabetes mellitus type II, uncontrolled 250.02 and Hyperlipidemia associated with type 2 diabetes mellitus 250.80 [place] [id number] [place] [address] 64651- 9356 Jun, [place] [address] 04988- 1498 Jun, [place] [address] 73015- 9376 May, [address] 46253- 5267 Apr, [facility] [address] 34317- 2180 Apr, Viral upper respiratory infection 465.9 and Asthma 493.[address] 83466- 3804 Mar, Abnormal ankle brachial index 796.[address] 11470- 8160 February, [facility] [address] 34970- 3145 February, Essential hypertension, benign 401.1 [facility] [address] [place] [address] 53795- 6053 February, Diabetic peripheral neuropathy 250.60 ; Ulcer of heel and midfoot 707.14 and Decreased pedal pulses 785.9 [facility] [address] [address]- 3486 February, [facility] [id number] [place] [address] 53948- 2943 February, [facility] [id number] [place] [address] 39848- 7951 Jan, [facility] [id number] [place] [address] 17347- 1545 Jan, [facility] [id number] [place] [address] 64750- 8488 Dec, [facility] [address] [place] [address] 11413- 6194 Dec, [facility] [id number] [place] [address] 30565- 6672 Nov, [facility] [address] [address]- 1409 Nov, [facility] [address] [place] [address] 92863- 5304 Nov, [facility] [address] [address]- 6633 Nov, [facility] [id number] [place] [address] 89922- 6572 Nov, [facility] [address], [place] [address]- 9559 Nov, [facility] [address], [place] [address]- 9309 Nov, [facility] [place] [facility] [address] [id number] [place] [address]- 0290 Nov, [facility] [place] [facility] [address] [id number] [place] [address]- 2266 Nov, [facility] [place] [facility] [address] [id number] [place] [address]- 7485 Oct, [facility] [place] [facility] [address] [id number] [place] [address]- 8290 Oct, [facility] [place] [facility] [address] [id number] [place] [address]- 5031 Oct, [facility] [place] [facility] [address] [id number] [place] [address]- 8220 Oct, [facility] [place] [facility] [address] [id number] [place] [address]- 3196 Oct, [facility] [place] [facility] [address] [id number] [place] [address]- 5297 Oct, [facility] [place] [facility] [address] [id number] [place] [address] Oct, [facility] [place] [facility] [address] [id number] [place] [address] Oct, [facility] [place] [facility] [address] [id number] [place] [address] Oct, [facility] [place] [facility] [address] [id number], [place] [address] Oct, [facility] [place] [facility] [address] [id number] [place] [address] Oct, [facility] [place] [facility] [address] [id number], [place] [address] Oct, [facility] [place] [facility] [address] [id number] [place] [address] Oct, [facility] [place] [facility] [address] [id number] [place] [address] 30 Sep, 2014 [facility] [place] [facility] [address] [id number] [place] [address] Sep, [facility] [place] [facility] [address] [id number] [place] [address] Sep, [facility] [place] [facility] [address] [id number] [place] [address] Sep, [facility] [place] [facility] [address] [id number] [place] [address] Sep, [facility] [place] [facility] [address] [id number] [place] [address] Sep, [facility] [place] [facility] [address] [id number] [place] [address] 76[address] Sep, [facility] [place] [facility] [address] [id number] [place] [address] 7084 Sep, [facility] [place] [facility] [address] [id number] [place] [address] 9[address] Sep, [facility] [place] [facility] [address] [id number] [place] [address] 18[address] Sep, [facility] [place] [facility] [address] [id number] [place] [address] 07[address] Sep, [facility] [place] [facility] [address] [id number] [place] [address] 99[address] Sep, [facility] [place] [facility] [address] [id number] [place] [address] 3551 Sep, [facility] [place] [facility] [address] [id number] [place] [address] 9114 Sep, [facility] [place] [facility] [address] [id number] [place] [address] Sep, [facility] [place] [facility] [address] [id number] [place] [address] 7046 Sep, [facility] [place] [facility] [address] [id number] [place] [address] 6643 Aug, [facility] [place] [facility] [address] [id number] [place] [address]- 9285 Aug, [facility] [place] [facility] [address] [id number] [place] [address]- 2151 Aug, [facility] [place] [facility] [address] [id number] [place] [address]- 3660 Aug, [facility] [place] [facility] [address] [id number] [place] [address]- 7664 Aug, [facility] [place] [facility] [address] [id number] [place] [address]- 4868 Aug, [facility] [place] [facility] [address] [id number] [place] [address]- 8704 Aug, [facility] [place] [facility] [address] [id number] [place] [address] 6140 Aug, [facility] [place] [facility] [address] [id number] [place] [address] 3253 Jul, [facility] [place] [facility] [address] [id number] [place] [address]- 2496 Jul, [facility] [place] [facility] [address] [id number] [place] [address] 8[address] 30 Jul, 2014 [facility] [place] [facility] [address] [id number] [place] [address]- 4365 15 Jul, 2014 [facility] [place] [facility] [address] [id number] [place] [address]- 3997 15 Jul, 2014 [facility] [place] [facility] [address] [id number] [place] [address]- 7060 Jun, [facility] [place] [facility] [address] [id number] [place] [address]- 65[address] 25 Jun, 2014 [facility] [place] [facility] [address] [id number] [place] [address]- 2763 Jun, [facility] [place] [facility] [address] [id number] [place] [address]- 9360 Jun, [facility] [place] [facility] [address] [id number] [place] [address]- 4867 Jun, [facility] [place] [facility] [address] [id number] [place] [address]- 4261 May, [facility] [place] [facility] [address] [id number] [place] [address]- 0671 May, [facility] [place] [facility] [address] [id number] [place] [address]- 7457 Apr, [facility] [place] [facility] [address] [id number] [place] [address]- 3805 Apr, [facility] [place] [facility] [address] [id number] [place] [address]- 4736 Apr, [facility] [place] [facility] [address] [id number] [place] [address]- 8727 Apr, [facility] [place] [facility] [address] [id number] [place] [address]- 8947 Apr, [facility] [place] [facility] [address] [id number] [place] [address]- 4432 Apr, [facility] [place] [facility] [address] [id number] [place] [address] 4918 Mar, [facility] [place] [facility] [address] [id number] [place] [address] 4419 Mar, [facility] [place] [facility] [address] [id number] [place] [address]- 9363 Mar, [facility] [place] [facility] [address] [id number] [place] [address]- 1230 Mar, [facility] [place] [facility] [address] [id number] [place] [address] 8913 Mar, [facility] [place] [facility] [address] [id number] [place] [address]- 2579 Mar, [facility] [place] [facility] [address] [id number] [place] [address]- 6438 Mar, [facility] [place] [facility] [address] [id number] [place] [address]- 5661 Mar, [facility] [place] [facility] [address] [id number] [place] [address]- 4997 Mar, [facility] [place] [facility] [address] [id number] [place] [address]- 6508 Mar, [facility] [place] [facility] [address] [id number] [place] [address]- 2050 Mar, [facility] [place] [facility] [address] [id number] [place] [address]- 7440 Mar, [facility] [place] [facility] [address] [id number] [place] [address]- 7893 Mar, [facility] [place] [facility] [address] [id number] [place] [address]- 8780 Mar, [facility] [place] [facility] [address] [id number] [place] [address]- 9656 Mar, [facility] [place] [facility] [address] [id number] [place] [address]- 4135 Mar, [facility] [place] [facility] [address] [id number] [place] [address]- 2483 February, [facility] [place] [facility] [address] [id number] [place] [address]- 0587 February, [facility] [place] [facility] [address] [id number] [place] [address] 3670 February, [facility] [place] [facility] [address] [id number] [place] [address]- 4571 February, [facility] [place] [facility] [address] [id number] [place] [address]- 9311 February, [facility] [place] [facility] [address] [id number] [place] [address]- 1610 February, [facility] [place] [facility] [address] [id number] [place] [address]- 6520 February, [facility] [place] [facility] [address] [id number] [place] [address] 9424 February, [facility] [place] [facility] [address] [id number] [place] [address]- 6162 Jan, [facility] [place] [facility] [address] [id number] [place] [address]- 8414 Jan, [facility] [place] [facility] [address] [id number] [place] [address]- 3477 Dec, [facility] [place] [facility] [address] [id number] [place] [address]- 6175 Dec, [facility] [place] [facility] [address] [id number] [place] [address]- 4135 Dec, [facility] [place] [facility] [address] [id number] [place] [address]- 6654 Dec, [facility] [place] [facility] [address] [id number] [place] [address]- 2303 Dec, [facility] [place] [facility] [address] [id number] [place] [address]- 7401 Dec, [facility] [place] [facility] [address] [id number] [place] [address]- 8520 Dec, [facility] [place] [facility] [address] [id number] [place] [address]- 9621 Dec, [facility] [place] [facility] [address] [id number] [place] [address]- 3674 Dec, [facility] [place] [facility] [address] [id number] [place] [address] Dec, [facility] [place] [facility] [address] [id number] [place] [address]- 8215 14 Dec, 2013 [facility] [place] [facility] [address] [id number] [place] [address]- 4024 14 Dec, 2013 [facility] [place] [facility] [address] [id number] [place] [address]- 2207 Dec, [facility] [place] [facility] [address] [id number] [place] [address]- 0961 Dec, [facility] [place] [facility] [address] [id number] [place] [address]- 4446 Nov, [facility] [place] [facility] [address] [id number] [place] [address]- 5504 Nov, [facility] [place] [facility] [address] [id number] [place] [address]- 1239 Oct, [facility] [place] [facility] [address] [id number] [place] [address]- 0714 Oct, [facility] [place] [facility] [address] [id number] [place] [address]- 8865 Oct, [facility] [place] [facility] [address] [id number] [place] [address]- 4351 Oct, [facility] [place] [facility] [address] [id number] [place] [address]- 3477 Oct, [facility] [place] [facility] [address] [id number] [place] [address]- 3726 Oct, [facility] [place] [facility] [address] [id number] [place] [address]- 9926 Oct, [facility] [place] [facility] [address] [id number] [place] [address]- 3531 Sep, [facility] [place] [facility] [address] [id number] [place] [address]- 3804 Sep, [facility] [place] [facility] [address] [id number] [place] [address]- 4894 Sep, [facility] [place] [facility] [address] [id number] [place] [address]- 2907 Sep, [facility] [place] [facility] [address] [id number] [place] [address]- 6756 Sep, [facility] [place] [facility] [address] [id number] [place] [address]- 0606 Sep, [facility] [place] [facility] [address] [id number] [place] [address]- 4576 Sep, [facility] [place] [facility] [address] [id number] [place] [address]- 1115 Sep, [facility] [place] [facility] [address] [id number] [place] [address]- 9156 Sep, [facility] [place] [facility] [address] [id number] [place] [address]- 9550 Sep, [facility] [place] [facility] [address] [id number] [place] [address]- 9759 Sep, [facility] [place] [facility] [address] [id number] [place] [address]- 7494 Sep, [facility] [place] [facility] [address] [id number] [place] [address]- 8108 Sep, [facility] [place] [facility] [address] [id number] [place] [address]- 5775 16 Sep, 2013 [facility] [place] [facility] [address] [id number] [place] [address]- 9402 Sep, [facility] [place] [facility] [address] [id number] [place] [address]- 8936 Sep, [facility] [place] [facility] [address] [id number] [place] [address]- 3056 Sep, [facility] [place] [facility] [address] [id number] [place] [address] Sep, [facility] [place] [facility] [address] [id number] [place] [address]- 3270 Sep, [facility] [place] [facility] [address] [id number] [place] [address]- 2460 Aug, [facility] [place] [facility] [address] [id number] [place] [address]- 9617 Aug, [facility] [place] [facility] [address] [id number] [place] [address]- 6435 Aug, [facility] [place] [facility] [address] [id number] [place] [address]- 7578 Aug, [facility] [place] [facility] [address] [id number] [place] [address]- 7270 Aug, [facility] [place] [facility] [address] [id number] [place] [address]- 4587 Aug, [facility] [place] [facility] [address] [id number] [place] [address]- 7010 Aug, [facility] [place] [facility] [address] [id number], [place] [address]- 4652 Aug, [facility] [place] [facility] [address] [id number], [place] [address]- 4731 Aug, [facility] [place] [facility] [address] [id number], [place] [address]- 7624 Aug, [facility] [place] [facility] [address] [id number], [place] [address]- 9468 Aug, [facility] [place] [facility] [address] [id number], [place] [address]- 4513 Aug, [facility] [place] [facility] [address] [id number], [place] [address]- 5036 Aug, [facility] [place] [facility] [address] [id number][place] [address]- 4936 Aug, [facility] [place] [facility] [address] [id number], [place] [address]- 6861 Aug, [facility] [place] [facility] [address] [id number] [place] [address]- 5691 05 Aug, 2012 [facility] [place] [facility] [address] [id number] [place] [address]- 9498 05 Aug, 2012 [facility] [place] [facility] [address] [id number] [place] [address] Jul, 2012 [facility] [place] [facility] [address] [id number] [place] [address]- 1957 Jul, 2012 [facility] [place] [facility] [address] [id number] [place] [address]- 3031 Jul, 2012 [facility] [place] [facility] [address] [id number] [place] [address]- 9425 Jul, 2012 [facility] [place] [facility] [address] [id number] [place] [address]- 7050 Jul, [facility] [place] [facility] [address] [id number] [place] [address]- 9688 Jul, 2012 [facility] [place] [facility] [address] [id number] [place] [address]- 9060 Jul, [facility] [place] [facility] [address] [id number] [place] [address]- 8336 27 Sep, 2012 [facility] [place] [facility] [address] [facility] [id number] [place] [address]- 6660 20 Sep, 2012 [facility] [place] [facility] [address] [id number] [place] [address] 2546 17 Sep, 2012 [facility] [place] [facility] [address] [id number] [place] [address]- 2542 10 Sep, 2012 [facility] [place] [facility] [address] [id number] [place] [address] 254 06 Sep, 2012 [facility] [place] [facility] [address] [id number] [place] [address]- 2546 06 Sep, 2012 [facility] [place] [facility] [address] [id number] [place] [address] 2543 05 Jun, 2013 [facility] [address] [id number] [address]- [address]287 Jun, [facility] [address] [id number], [place] [address]- 9707 May, [facility] [id number], [place] [address]- 3590 May, [facility] [id number], [place] [address]- 8937 May, [facility] [id number], [place] [address]- 2936 May, [facility] [address], [place] [address]- 6481 May, [facility] [address], [place] [address]- 5471 May, [facility] [address], [place] [address]- 6759 May, [facility] [address] [id number], [place] [address]- 5470 May, IMMUNIZATIONS No Known Immunizations SOCIAL HISTORY Never Assessed REASON FOR VISIT US result PLAN OF CARE VITAL SIGNS MEDICATIONS Unknown [...] History Left foot cellulitis, left 2nd toe amputation-[facility] 12/23 Hospitalization History Surgery Hospitalizations
--- OUTSIDE RECORDS SUMMARY | 2018-08-22 09:15 | XMS REPORT ---
Author Author LUDIVINA STEPHANIE [facility] Address [address] [place] [address] Care Team Providers Care Referral Manager Name Role Phone LUDIVINADEE DEE FAIRCHILDHANY Unavailable PROBLEMS Type Condition ICD9-CM Code GAL19-NO Code Onset Dates Condition Status SNOMED Code Problem Type 2 diabetes mellitus with other specified complication E11.69 Active 339621602 Problem Other chronic pain G89.29 Active 24089138 Problem Status post amputation of toe of left foot Z89.422 Active 178733014 Problem Intrinsic eczema L20.84 Active 68543624 Problem Type 2 diabetes mellitus with other skin complications E11.628 Active 90048996 Problem Severe episode of recurrent major depressive disorder, without psychotic features F33.2 Active 73151119 Problem Type 2 diabetes mellitus with diabetic chronic 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 Active 367233454 Problem Type 2 diabetes mellitus with diabetic polyneuropathy E11.42 Active 053199750 Problem Pain in right foot M79.671 Active 07858920 Problem Pain in left foot M79.672 Active 34104611 Problem Tonsillolith J35.8 Active 4113703 Problem Chronic prescription opiate use Z79.891 Active 793102566 Problem Chronic migraine G43.709 Active 24862590 Problem Chronic kidney disease, stage III (moderate) N18.3 Active 838512427 Problem Irregular menstrual cycle N92.6 Active 98847053 Problem Moderate persistent asthma without complication J45.40 Active 657637066 Problem Obesity E66.9 Active 512208905 Problem Type 2 diabetes mellitus with foot ulcer E11.621 Active 09715364 Problem Subclinical hypothyroidism E03.9 Active 85327918 Problem Essential hypertension I10 Active 38152042 Problem DM neuro manif type II E11.49 Active 35830674 Problem Hypertriglyceridemia E78.1 Active 523440774 Problem Anxiety disorder, unspecified F41.9 Active 615391408 Problem History of amputation of hallux Z89.419 Active [id number] ALLERGIES No Information SOCIAL HISTORY Never Assessed PLAN OF CARE VITAL SIGNS MEDICATIONS Unknown Medications RESULTS No Results PROCEDURES No Known procedures IMMUNIZATIONS No Known Immunizations MEDICAL (GENERAL) HISTORY Type Description Date Medical History type I diabetes Medical History hypertension Medical History hyperlipidemia Medical History asthma Medical History migraine headaches Medical History allergic rhinitis Medical History neuropathy Medical History Chronic osteomyelitis, site unspecified [facility] History [facility] Surgical History bladder surgery-stretch [facility] 2003 Surgical History exploratory laparoscopy [facility] 1995 Surgical History amputation, toe (R great) Surgical History amputation, (R forefoot) 2014 Surgical History amputation, toe Left second 12/2016 Surgical History amputation, 4th left toe 02/2017 Hospitalization History Left foot cellulitis, left 2nd toe amputation-[facility] 12/23
--- OUTSIDE RECORDS SUMMARY | 2018-08-22 09:15 | XMS REPORT ---
Author Author LUDIVINA STEPHANIE [facility] Address [address] [place] [address] Care Team Providers Care Infirmary Attendant Name Role Phone LUDIVINADEE DEE FAIRCHILDHANY Unavailable PROBLEMS Type Condition ICD9-CM Code WKT10-NV Code Onset Dates Condition Status SNOMED Code Problem Type 2 diabetes mellitus with other specified complication E11.69 Active 193328451 Problem Other chronic pain G89.29 Active 26467152 Problem Status post amputation of toe of left foot Z89.422 Active 375049516 Problem Intrinsic eczema L20.84 Active 12584544 Problem Type 2 diabetes mellitus with other skin complications E11.628 Active 04283716 Problem Severe episode of recurrent major depressive disorder, without psychotic features F33.2 Active 45528316 Problem Type 2 diabetes mellitus with diabetic chronic 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 Active 642755591 Problem Type 2 diabetes mellitus with diabetic polyneuropathy E11.42 Active 647097011 Problem Pain in right foot M79.671 Active 73781105 Problem Pain in left foot M79.672 Active 93057611 Problem Tonsillolith J35.8 Active 8104014 Problem Chronic prescription opiate use Z79.891 Active 817049450 Problem Chronic migraine G43.709 Active 39554556 Problem Chronic kidney disease, stage III (moderate) N18.3 Active 761381314 Problem Irregular menstrual cycle N92.6 Active 25825982 Problem Moderate persistent asthma without complication J45.40 Active 936203396 Problem Obesity E66.9 Active 621335589 Problem Type 2 diabetes mellitus with foot ulcer E11.621 Active 17515037 Problem Subclinical hypothyroidism E03.9 Active 02577514 Problem Essential hypertension I10 Active 47646431 Problem DM neuro manif type II E11.49 Active 57081858 Problem Hypertriglyceridemia E78.1 Active 065550547 Problem Anxiety disorder, unspecified F41.9 Active 375098381 Problem History of amputation of hallux Z89.419 Active 929214421 ALLERGIES No Information SOCIAL HISTORY Never Assessed [...] Chronic osteomyelitis, site unspecified [facility] History [facility] Surgical History bladder surgery-stretch [facility] 2003 Surgical History exploratory laparoscopy [facility] 1995 Surgical History amputation, toe (R great) Surgical History amputation, (R forefoot) 2014 Surgical History amputation, toe Left second 12/2016 Surgical History amputation, 4th left toe 02/2017 Hospitalization History Left foot cellulitis, left 2nd toe amputation-[facility] 12/23
--- OUTSIDE RECORDS SUMMARY | 2018-08-22 09:15 | XMS REPORT ---
Author Author DOMITILA UMANA Organization [facility] Address [address] [place] [address] Care Team Providers Care Freight Service Inspector Name Role Phone DOMITILA UMANA Unavailable PROBLEMS Type Condition ICD9-CM Code EVA63-FN Code Onset Dates Condition Status SNOMED Code Problem Subclinical hypothyroidism E03.9 Active 00694389 Problem Hypertriglyceridemia E78.1 Active 010475857 Problem Type 2 diabetes mellitus with diabetic polyneuropathy E11.42 Active 469874829 Problem Type 2 diabetes mellitus with diabetic chronic 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 Active 956764179 Problem Other chronic pain G89.29 Active 91065742 Problem Type 2 diabetes mellitus with other skin complications E11.628 Active 38818487 Problem Pain in left foot M79.672 Active 68718835 Problem Irregular menstrual cycle N92.6 Active 79464896 Problem Pain in right foot M79.671 Active 70631223 Problem Tonsillolith J35.8 Active 1451074 Problem Chronic prescription opiate use Z79.891 Active 272817045 Problem Seasonal allergic rhinitis due to pollen J30.1 Active 17289529 Problem Asthma exacerbation, mild J45.901 Active 729947302 Problem Chronic kidney disease, stage III (moderate) N18.3 Active 073423057 Problem Chronic migraine G43.709 Active 98563714 Problem Moderate persistent asthma without complication J45.40 Active 847334941 Problem Intrinsic eczema L20.84 Active 27798141 Problem Severe episode of recurrent major depressive disorder, without psychotic features F33.2 Active 64291853 Problem Non-pressure chronic ulcer of right heel and midfoot limited to breakdown of skin L97.411 Active 374652669 Problem Ulcer of right heel L97.419 Active 357671488 Problem Obesity E66.9 Active 662117955 Problem Type 2 diabetes mellitus with foot ulcer E11.621 Active 93552703 Problem Essential hypertension I10 Active 58085422 Problem Anxiety disorder, unspecified F41.9 Active 547663072 Problem Type 2 diabetes mellitus with other specified complication E11.69 Active 443389815 Problem Status post amputation of toe of left foot Z89.422 Active 318451620 Problem DM neuro manif type II E11.49 Active 03195649 Problem History of amputation of hallux 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 Active 511675939 ALLERGIES No Information ENCOUNTERS Encounter Location Date Diagnosis [facility] [id number] [place] [address] 28292- 2297 12 Mar, 2018 Moderate persistent asthma without complication J45.40 [facility] [address] 32076- 3619 Mar, Moderate persistent asthma without complication J45.40 [facility] [address] 31565- 8791 Mar, [facility] [address] 44883- 8912 February, Chronic migraine G43.709 [facility] [address] 05030- 6193 February, Chronic migraine G43.709 [facility] [address] 22981- 1589 February, [facility] [address] 79803- 8329 February, [facility] [id number] [place] [address] 12680- 2631 February, Type 2 diabetes mellitus with diabetic polyneuropathy E11.42 ; Moderate persistent asthma without complication J45.40 ; Type 2 diabetes mellitus with foot ulcer E11.621 ; Non-pressure chronic ulcer of right heel and midfoot limited to breakdown of skin L97.411 ; Chronic migraine G43.709 and BMI 60.0-69.9, adult Z68.44 [facility] [id number] [place] [address] 79132 -0160 Jan, 2018 Asthma exacerbation, mild J45.901 ; Seasonal allergic rhinitis due to pollen J30.1 and BMI 60.0-69.9, adult Z68.44 [facility] [id number] [place] [address] 13262- 2876 Jan, [facility] [address] 42789- 1770 Jan, Other chronic pain G89.29 [facility] [id number] [place] [address] 35627- 4205 30 Dec, 2017 Type 2 diabetes mellitus with diabetic polyneuropathy E11.42 [facility] [id number] [place] [address] 41731- 0223 19 Dec, 2017 Type 2 diabetes mellitus with diabetic polyneuropathy E11.42 [facility] [id number] [place] [address] 08320- 2796 15 Dec, 2017 [facility] [id number] [place] [address] 69422- 1885 14 Dec, 2017 [facility] [id number] [place] [address] 33217- 0383 13 Dec, 2017 Chronic kidney disease, stage III (moderate) N18.3 [facility] [id number] [place] [address] 63205 -7930 09 Dec, 2017 Nausea R11.0 and Diarrhea, unspecified type R19.7 [facility] [id number] [place] [address] 36695- 1740 07 Dec, 2017 Chronic kidney disease, stage III (moderate) N18.3 and Type 2 diabetes mellitus with diabetic polyneuropathy E11.42 [facility] [address] [place] [address] 83735- 8666 Dec, [facility] [address] 92996- 4686 23 Nov, 2017 Ulcer of right heel L97.419 and Type 2 diabetes mellitus with diabetic polyneuropathy E11.42 [facility] [address] [place] [address] [id number] Nov, Dental examination Z01.20 [facility] [place] [id number] [place] [address] 97840- 7118 Nov, Open wound of right foot, initial encounter S91.301A [facility] [id number] [place] [address] 60357 -0683 Nov, Open wound of right foot, initial encounter S91.301A ; Non- intractable vomiting with nausea, unspecified vomiting type R11.2 and BMI 60.0- 69.9, adult Z68.44 [facility] [id number] [place] [address] 24614- 6853 Nov, [facility] [place] [address] 76487- 9841 Nov, Other chronic pain G89.29 [facility] [address] 67099- 9279 Oct, Cellulitis of right lower limb L03.115 [facility] [id number] [place] [address] 03162- 8705 Oct, [facility] [address] 32238- 0242 Oct, [facility] [id number] [place] [address] 22854- 8662 Oct, Cat scratch W55.03XA ; Cellulitis of right lower limb L03.115 ; Acute nasopharyngitis J00 ; BMI 60.0-69.9, adult Z68.44 and Cough R05 [facility] [id number] [place] [address] 63096- 2537 Oct, Cat scratch W55.03XA ; Cutaneous abscess of right lower extremity L02.415 and Cellulitis of right lower limb L03.115 [facility] [id number] [place] [address] 22778- 8788 Oct, Type 2 diabetes mellitus with diabetic polyneuropathy E11.42 [facility] [address] [place] [address]- 7538 Oct, Other chronic pain G89.29 [facility] [address] 57864- 7366 Aug, [facility] [id number] [place] [address] 98312- 4386 Jul, Other chronic pain G89.29 [facility] [address] 71375- 6253 Jul, [facility] [address] 04906- 7020 Jul, Chronic kidney disease, stage III (moderate) N18.3 [facility] [address] 75127- 2243 Jul, Type 2 diabetes mellitus with diabetic polyneuropathy E11.42 ; Essential hypertension I10 ; Irregular menstrual cycle N92.6 ; Hypertriglyceridemia E78.1 ; Anxiety disorder, unspecified F41.9 ; Severe episode of recurrent major depressive disorder, without psychotic features F33.2 ; Tonsillolith J35.8 ; Intrinsic eczema L20.84 ; Subclinical hypothyroidism E03.9 ; Viral pharyngitis J02.9 and Encounter for immunization Z23 [facility] [id number] [place] [address] 75995- 2769 13 Jun, 2017 Essential hypertension I10 [address] 45862- 4254 08 Jun, 2017 [facility] [id number] [place] [address] 31413- 2749 Jun, [facility] [address] 08689- 4895 May, Moderate persistent asthma without complication J45.40 [place] [id number] [place] [address] 99211- 9382 May, Pain in right foot M79.671 ; Pain in left foot M79.672 ; Other chronic pain G89.29 and Chronic prescription opiate use Z79.891 [facility] [address] [address]- 0678 May, [facility] [id number] [place] [address] 43558- 7073 May, [facility] [id number] [place] [address] 97961- 4136 Apr, [facility] [id number] [place] [address] 54598- 1705 Apr, Chronic migraine G43.709 [facility] [id number] [place] [address] 52185- 3688 Apr, Essential hypertension I10 ; Hypertriglyceridemia E78.1 and Chronic migraine G43.709 [facility] [id number] [place] [address] 63200- 0539 Apr, [facility] [id number] [place] [address] 31597- 4064 Apr, Sore throat J02.9 [facility] [id number] [place] [address] 36222- 8877 Apr, [facility] [id number] [place] [address] 06635- 0673 Mar, Strep pharyngitis J02.0 and Non-intractable vomiting with nausea, unspecified vomiting type R11.2 [facility] [id number] [place] [address] 80275- 1194 Mar, [facility] [id number] [place] [address] 54449- 4142 Mar, [facility] [id number] [place] [address] 64858- 9652 Mar, [facility] [id number] [place] [address] 11117- 0213 Mar, Type 2 diabetes mellitus with diabetic polyneuropathy E11.42 ; Moderate persistent asthma without complication J45.40 ; Status post amputation of toe of left foot Z89.422 ; Acute seasonal allergic rhinitis, unspecified trigger J30.2 and Left shoulder pain, unspecified chronicity M25.512 [facility] [id number] [place] [address] 74572- 1149 Mar, [facility] [id number] [place] [address] 32198- 1995 February, Pre-op evaluation Z01.818 ; Type 2 diabetes mellitus with diabetic polyneuropathy E11.42 and Type 2 diabetes mellitus with foot ulcer E11.621 [facility] [id number] [place] [address] 72650- 4706 February, [facility] [id number] [place] [address] 08078- 4905 February, [facility] [id number] [place] [address] 69689- 0042 February, Toe infection L08.9 and Type 2 diabetes mellitus with other specified complication E11.69 [facility] [id number] [place] [address] 63809- 9343 February, [facility] [id number] [place] [address] 96303- 7283 Jan, Type 2 diabetes mellitus with diabetic polyneuropathy E11.42 [facility] [id number] [place] [address] 07091- 7911 Jan, [facility] [id number] [place] [address] 40869- 8295 Jan, Right upper quadrant pain R10.11 and Intractable vomiting with nausea, unspecified vomiting type R11.2 [facility] [id number] [place] [address] 29146- 2200 Jan, Hypertriglyceridemia E78.1 and Essential hypertension I10 [facility] [id number] [place] [address] 92339- 6668 Jan, Essential hypertension I10 ; Type 2 diabetes mellitus with diabetic polyneuropathy E11.42 and Hypertriglyceridemia E78.1 [facility] [id number] [place] [address] 32259- 9113 16 Dec, 2016 Type 2 diabetes mellitus with diabetic polyneuropathy E11.42 [facility] [id number] [place] [address] 70110- 7576 15 Dec, 2016 Hypertriglyceridemia E78.1 ; Essential hypertension I10 ; Type 2 diabetes mellitus with diabetic polyneuropathy E11.42 ; Anxiety disorder , unspecified F41.9 and Moderate persistent asthma without complication J45.40 [facility] [id number] [place] [address] 75266- 9446 Dec, Type 2 diabetes mellitus with diabetic polyneuropathy E11.42 [facility] [id number] [place] [address] [id number] Dec, [facility] [address] 95021- 0847 Nov, [facility] [id number] [place] [address] 95383- 3897 Nov, [facility] [address] 28167- 0691 Nov, [facility] [id number] [place] [address] 11995- 8476 Nov, Toe infection L08.9 [facility] [id number] [place] [address] 70265- 1851 Nov, [facility] [id number] [place] [address] 86326- 9971 Oct, History of amputation of hallux Z89.419 [facility] [id number] [place] [address] 94413- 3848 Oct, Type 2 diabetes mellitus with diabetic polyneuropathy E11.42 [facility] [id number] [place] [address] 13639- 1941 Oct, Type 2 diabetes mellitus with diabetic polyneuropathy E11.42 [facility] [address] [address]- 7358 Oct, Acute osteomyelitis of left foot M86.172 ; Pre-op exam Z01.818 and Type 2 diabetes mellitus with diabetic polyneuropathy E11.42 [facility] [address] [address]- 8110 Oct, Foot ulcer, left, with unspecified severity L97.529 ; Acute osteomyelitis of left foot M86.172 and Type 2 diabetes mellitus with diabetic polyneuropathy E11.42 [facility] [address] [address]- 3026 Sep, [facility] [id number] [place] [address] 55744- 2221 Sep, Intractable vomiting with nausea, unspecified vomiting type R11.2 and Right upper quadrant pain R10.11 [facility] [address] [address]- 4861 Aug, [facility] [id number] [address]- 3342 Jul, [facility] [id number] [address]- 7921 Jul, Preop examination Z01.818 [facility] [address] [address]- 7306 Jul, [facility] [address] [address]- 7757 Jul, [facility] [address] [address]- 1983 Jul, Chronic osteomyelitis of left foot M86.672 and Ulcer of left foot, with unspecified severity L97.529 [facility] [address], [place] [address]- 1770 Jul, Non-pressure chronic ulcer of other part of left foot with unspecified severity L97.529 [facility] [address], [place] [address]- 0128 Jul, [facility] [id number] [place] [address] 43541- 9000 Jul, [facility] [id number] [place] [address] 77307- 0182 Jun, [facility] [id number] [place] [address] 59737- 7238 27 Jun, 2016 [facility] [id number] [place] [address] 61306- 7773 Jun, [facility] [id number] [place] [address] 81527- 2104 21 Jun, 2016 Right upper quadrant pain R10.11 [facility] [id number] [place] [address] 90500- 7269 20 Jun, 2016 [facility] [id number] [place] [address] 78316- 9628 19 Jun, 2016 Intractable vomiting with nausea, unspecified vomiting type R11.2 [facility] [id number] [place] [address] 81913- 5204 13 Jun, 2016 Right upper quadrant pain R10.11 ; Migraine with aura and with status migrainosus, not intractable G43.101 and Intractable vomiting with nausea, unspecified vomiting type R11.2 [facility] [address] [place] [address] 72341- 3765 12 Jun, 2016 [facility] [id number] [place] [address] 57889- 1126 Jun, Gastroenteritis K52.9 [facility] [id number] [place] [address] 44033- 0170 May, [facility] [id number] [place] [address] 91773- 6695 May, Hypertriglyceridemia E78.1 ; Essential hypertension I10 ; Type 2 diabetes mellitus with diabetic polyneuropathy E11.42 ; Moderate persistent asthma without complication J45.40 ; Type 2 diabetes mellitus with foot ulcer E11.621 ; Other chronic pain G89.29 ; Pain in right leg M79.604 ; Pain of left leg M79.605 ; Rash and nonspecific skin eruption R21 and Anxiety disorder, unspecified F41.9 [facility] [id number] [place] [address] 73943- 5939 May, Essential hypertension I10 ; Hypertriglyceridemia E78.1 ; Upper respiratory infection J06.9 ; Subclinical hypothyroidism E03.9 and Type 2 diabetes mellitus with diabetic polyneuropathy E11.42 [facility] [address] 40315- 2910 Apr, Hypertriglyceridemia E78.1 ; Subclinical hypothyroidism E03.9 ; Essential hypertension I10 and Type 2 diabetes mellitus with diabetic polyneuropathy E11.42 [facility] [id number] [place] [address] 45298- 6949 Mar, [facility] [place] [id number] [place] [address] 25000- 2588 Mar, Ulcer of right heel L97.419 [facility] [id number] [place] [address] 98593- 6327 Mar, [facility] [place] [id number] [place] [address] 39013- 5960 Mar, [facility] [id number] [place] [address] 77213- 5615 February, [facility] [place] [id number] [place] [address] 46236- 9537 February, Ulcer of right heel L97.419 and DM neuro manif type II E11.49 [facility] [id number] [place] [address] 56066- 2941 Jan, [facility] [place] [id number] [place] [address] 54609- 7251 Jan, Ulcer of right heel L97.419 ; Type 2 diabetes mellitus with foot ulcer E11.621 and Non-pressure chronic ulcer of other part of left foot with unspecified severity L97.529 [facility] [id number] [place] [address] 46261- 1687 Jan, [facility] [id number] [place] [address] 34614- 1759 Jan, [facility] [address] 19258- 3640 Jan, Infection of toenail L03.039 [facility] [address] 68657- 2914 Jan, Blister of toe of left foot, initial encounter S90.425A and Type 2 diabetes mellitus with diabetic polyneuropathy E11.42 [facility] [place] [address] 55310- 2151 Jan, [facility] [id number] [place] [address] 16501 -4728 Jan, Sore throat J02.9 and Strep pharyngitis J02.0 [facility] [place] [id number] [place] [address] 20316- 2323 Dec, Type 2 diabetes mellitus with diabetic polyneuropathy E11.42 ; Upper respiratory infection J06.9 ; Cough R05 and Asthma exacerbation J45.901 [facility] [id number] [place] [address] 40640- 6709 Oct, [facility] [id number] [place] [address] 18660- 0181 Oct, [facility] [address] 37538- 6509 Oct, [facility] [id number] [place] [address] 17912- 3468 Oct, [facility] [address] 01085- 2637 Sep, [facility] [place] [id number] [place] [address] 23360- 2560 Aug, Anxiety disorder, unspecified F41.9 and Obesity E66.9 [facility] [place] [id number] [place] [address] 05318- 0899 Aug, Moderate persistent asthma without complication J45.40 [facility] [place] [address] 02030- 4715 Aug, Anxiety disorder, unspecified F41.9 [facility] [id number] [place] [address] 20386- 0512 Aug, Chronic migraine G43.709 ; Encounter for immunization Z23 ; Hypertriglyceridemia E78.1 ; Type 2 diabetes mellitus with diabetic polyneuropathy E11.42 ; Moderate persistent asthma without complication J45.40 and Morbid obesity E66.[address] 54036- 6181 Jul, [facility] [id number] [place] [address] 43171- 3072 Jul, [address] 87404- 2080 Jul, [facility] [id number] [place] [address] 48409- 9980 Jul, Subclinical hypothyroidism E03.9 [facility] [id number] [place] [address] 12250- 1360 Jun, Essential hypertension, benign 401.1 ; Diabetic ulcer of lower extremity 250.80 ; Asthma 493.90 ; Diabetes mellitus type II, uncontrolled 250.02 and Hyperlipidemia associated with type 2 diabetes mellitus 250.80 [facility] [id number] [place] [address] 80380- 8699 Jun, [facility] [id number] [place] [address] 21956- 3199 Jun, [address] [id number] [address]- 2737 May, [facility] [id number] [place] [address] 51929- 2617 Apr, [facility] [id number] [place] [address] 56398- 0725 Apr, Viral upper respiratory infection 465.9 and Asthma 493.90 [facility] [id number] [place] [address] 29838- 0558 Mar, Abnormal ankle brachial index 796.4 [facility] [id number] [place] [address] 44160- 3812 February, [facility] [id number] [place] [address] 33204- 9370 February, Essential hypertension, benign 401.1 [facility] [id number] [place] [address] 23552- 3549 February, Diabetic peripheral neuropathy 250.60 ; Ulcer of heel and midfoot 707.14 and Decreased pedal pulses 785.9 [facility] [id number] [place] [address] 43044- 0049 February, [facility] [id number] [place] [address] 53001- 1267 February, [facility] [id number] [place] [address] 37069- 8215 Jan, [facility] [id number] [place] [address] [id number]- [id number] Jan, [facility] [id number] [place] [address] [id number]- [id number] Dec, [facility] [id number] [place] [address] [id number] Dec, [facility] [id number] [place] [address] [id number]- [id number] Nov, [facility] [place] [facility] [address] [id number] [place] [id number] Nov, 2014 [facility] [place] [facility] [address] [address] [id number] [place] [address] Nov, 2014 [facility] [place] [facility] [address] [id number] [place] [address] 99[address] Nov, 2014 [facility] [place] [facility] [address] [id number] [place] [address] 7797 Nov, 2014 [facility] [place] [facility] [address] [id number] [place] [address] 2882 Nov, 2014 [facility] [place] [facility] [address] [id number] [place] [address] 8836 Nov, 2014 [facility] [place] [facility] [address] [facility] [id number] [place] [address] 8827 Nov, [facility] [place] [facility] [address] [id number] [place] [address] 8783 Nov, [facility] [place] [facility] [address] [id number] [place] [address]- 2018 Oct, [facility] [place] [facility] [address] [facility] [id number] [place] [address] 8267 Oct, [facility] [place] [facility] [address] [facility] [id number], [place] [address] Oct, [facility] [place] [facility] [address] [id number], [place] [address] 39[address] Oct, [facility] [place] [facility] [address] [id number] [place] [address] 2540 Oct, [facility] [place] [facility] [address] [id number] [place] [address]- 4013 Oct, [facility] [place] [facility] [address] [facility] [id number], [place] [address]7 Oct, [facility] [place] [facility] [address] [id number], [place] [address] Oct, [facility] [address] [id number] [place] [address]- 9234 Oct, [facility] [place] [facility] [address] [id number] [place] [address]- 9942 Oct, [facility] [address] [id number] [place] [address]- 6614 Oct, [facility] [place] [facility] [address] [id number] [place] [address]- 9667 Oct, [facility] [address] [id number] [place] [address]- 9238 Oct, [facility] [address] [id number] [place] [address]- 5702 Sep, [facility] [address] [id number] [place] [address]- 4044 Sep, [facility] [place] [facility] [address] [id number] [place] [address] 0811 Sep, [facility] [address] [id number] [place] [address]- 4617 Sep, [facility] [place] [facility] [address] [facility] [id number] [place] [address]- 1816 Sep, [facility] [address] [id number] [place] [address]- 9147 Sep, [facility] [place] [facility] [address] [id number] [place] [address]- 9984 Sep, [facility] [place] [facility] [address] [id number] [place] [address]- 8796 Sep, [facility] [place] [facility] [address] [id number] [place] [address]- 7815 Sep, [facility] [place] [facility] [address] [id number] [place] [address]- 7913 Sep, [facility] [place] [facility] [address] [id number] [place] [address]- 6187 Sep, [facility] [place] [facility] [address] [id number] [place] [address]- 3617 Sep, [facility] [place] [facility] [address] [id number] [place] [address]- 7713 Sep, [facility] [place] [facility] [address] [id number] [place] [address]- 1591 Sep, [facility] [place] [facility] [address] [id number] [place] [address]- 0667 Sep, [facility] [place] [facility] [address] [id number] [place] [address]- 3779 Sep, [facility] [place] [facility] [address] [id number] [place] [address]- 5936 Aug, [facility] [place] [facility] [address] [id number] [place] [address]- 2902 Aug, [facility] [place] [facility] [address] [id number] [place] [address]- 1742 Aug, [facility] [place] [facility] [address] [id number] [place] [address]- 9581 Aug, [facility] [place] [facility] [address] [id number] [place] [address]- 7685 Aug, [facility] [place] [facility] [address] [id number] [place] [address]- 3574 Aug, [facility] [place] [facility] [address] [id number] [place] [address]- 6972 Aug, [facility] [place] [facility] [address] [id number] [place] [address] Aug, [facility] [place] [facility] [address] [id number] [place] [address]- 9731 Jul, [facility] [place] [facility] [address] [id number] [place] [address]- 9283 Jul, [facility] [place] [facility] [address] [id number] [place] [address]- 8877 30 Jul, 2014 [facility] [place] [facility] [address] [id number] [place] [address]- 4972 Jul, [facility] [place] [facility] [address] [id number] [place] [address]- 4461 Jul, [facility] [place] [facility] [address] [id number] [place] [address]- 7119 Jun, [facility] [place] [facility] [address] [id number] [place] [address]- 5054 Jun, [facility] [place] [facility] [address] [id number] [place] [address]- 2499 Jun, [facility] [place] [facility] [address] [id number] [place] [address]- 8657 Jun, [facility] [place] [facility] [address] [id number] [place] [address]- 5674 Jun, [facility] [place] [facility] [address] [id number] [place] [address]- 9307 May, [facility] [place] [facility] [address] [id number] [place] [address]- 1827 May, [facility] [place] [facility] [address] [id number] [place] [address]- 5963 Apr, [facility] [place] [facility] [address] [id number], [place] [address] 9900 Apr, [facility] [place] [facility] [address] [id number] [place] [address]- 6467 Apr, [facility] [place] [facility] [address] [id number] [place] [address]- 8898 Apr, [facility] [place] [facility] [address] [id number] [place] [address]- 3861 Apr, [facility] [place] [facility] [address] [id number] [place] [address]- 4468 Apr, [facility] [place] [facility] [address] [id number] [place] [address]- 8820 Mar, [facility] [place] [facility] [address] [id number] [place] [address]- 8263 Mar, [facility] [place] [facility] [address] [id number] [place] [address]- 1900 Mar, [facility] [place] [facility] [address] [id number] [place] [address]- 5818 Mar, [facility] [place] [facility] [address] [id number] [place] [address]- 4026 Mar, [facility] [place] [facility] [address] [id number] [place] [address]- 1618 Mar, [facility] [place] [facility] [address] [id number] [place] [address]- 2059 Mar, [facility] [place] [facility] [address] [id number] [place] [address]- 9208 Mar, [facility] [place] [facility] [address] [id number] [place] [address]- 2911 Mar, [facility] [place] [facility] [address] [id number] [place] [address]- 3980 Mar, [facility] [place] [facility] [address] [id number] [place] [address]- 2164 Mar, [facility] [place] [facility] [address] [id number] [place] [address]- 1544 Mar, [facility] [place] [facility] [address] [id number] [place] [address]- 9129 Mar, [facility] [place] [facility] [address] [id number] [place] [address]- 7458 Mar, [facility] [place] [facility] [address] [id number] [place] [address]- 7064 Mar, [facility] [place] [facility] [address] [id number] [place] [address]- 4615 Mar, [facility] [place] [facility] [address] [id number] [place] [address]- 6048 February, [facility] [place] [facility] [address] [id number] [place] [address]- 3985 February, [facility] [place] [facility] [address] [id number] [place] [address]- 4228 February, [facility] [place] [facility] [address] [id number] [place] [address]- 8278 February, [facility] [place] [facility] [address] [id number] [place] [address]- 2658 February, [facility] [place] [facility] [address] [id number] [place] [address]- 4900 February, [facility] [place] [facility] [address] [id number] [place] [address]- 2743 February, [facility] [place] [facility] [address] [id number] [place] [address]- 8342 February, [facility] [place] [facility] [address] [id number] [place] [address]- 8890 Jan, [facility] [place] [facility] [address] [id number] [place] [address]- 3526 Jan, [facility] [place] [facility] [address] [id number] [place] [address]- 9143 Dec, [facility] [place] [facility] [address] [id number] [place] [address]- 0187 Dec, [facility] [place] [facility] [address] [id number] [place] [address]- 2042 Dec, [facility] [place] [facility] [address] [id number] [place] [address]- 5402 Dec, [facility] [place] [facility] [address] [id number] [place] [address]- 2546 24 Dec, 2013 [facility] [place] [facility] [address] [id number] [place] [address]- 5358 24 Dec, 2013 [facility] [place] [facility] [address] [id number] [place] [address]- 7726 Dec, [facility] [place] [facility] [address] [id number] [place] [address]- 8049 Dec, [facility] [place] [facility] [address] [id number] [place] [address]- 8159 17 Dec, 2013 [facility] [place] [facility] [address] [id number] [place] [address]- 7147 17 Dec, 2013 [facility] [place] [facility] [address] [id number] [place] [address]- 0407 Dec, [facility] [place] [facility] [address] [id number] [place] [address]- 6259 Dec, [facility] [place] [facility] [address] [id number] [place] [address]- 3024 Dec, [facility] [place] [facility] [address] [id number] [place] [address]- 8898 Dec, [facility] [place] [facility] [address] [id number] [place] [address]- 1040 Nov, [facility] [place] [facility] [address] [id number] [place] [address]- 6597 Nov, [facility] [place] [facility] [address] [id number] [place] [address]- 0577 Oct, [facility] [place] [facility] [address] [id number] [place] [address]- 3994 Oct, [facility] [place] [facility] [address] [id number] [place] [address]- 4593 Oct, [facility] [place] [facility] [address] [id number] [place] [address]- 7944 Oct, [facility] [place] [facility] [address] [id number] [place] [address]- 1529 16 Oct, 2013 [facility] [address] [id number] [place] [address]- 6696 Oct, [facility] [address] [id number] [place] [address]- 5406 Oct, [facility] [address] [id number] [place] [address]- 9646 31 Sep, 2013 [facility] [address] [id number] [place] [address]- 7820 Sep, [facility] [address] [id number] [place] [address]- 7167 Sep, [facility] [address] [id number] [place] [address]- 5081 29 Sep, 2013 [facility] [address] [id number] [place] [address]- 5826 Sep, [facility] [address] [id number] [place] [address]- 0472 Sep, [facility] [address] [id number] [place] [address]- 0421 Sep, [facility] [address] [id number] [place] [address]- 9049 Sep, [facility] [address] [id number] [place] [address]- 6818 Sep, [facility] [address] [id number] [place] [address]- 4303 Sep, [facility] [place] [facility] [address] [id number] [place] [address]- 6403 Sep, [facility] [place] [facility] [address] [id number] [place] [address]- 0926 Sep, [facility] [place] [facility] [address] [id number] [place] [address]- 6086 Sep, [facility] [place] [facility] [address] [id number] [place] [address]- 4372 Sep, [facility] [place] [facility] [address] [id number] [place] [address]- 4123 Sep, [facility] [place] [facility] [address] [id number] [place] [address]- 3705 Sep, [facility] [place] [facility] [address] [id number] [place] [address]- 6177 Sep, [facility] [place] [facility] [address] [id number] [place] [address]- 8662 Sep, [facility] [place] [facility] [address] [id number] [place] [address]- 1332 Sep, [facility] [place] [facility] [address] [id number] [place] [address]- 0900 Aug, [facility] [place] [facility] [address] [id number] [place] [address]- 0584 Aug, [facility] [place] [facility] [address] [id number] [place] [address]- 3075 Aug, [facility] [place] [facility] [address] [id number] [place] [address]- 4208 Aug, [facility] [place] [facility] [address] [id number] [place] [address]- 9242 Aug, [facility] [place] [facility] [address] [id number], [place] [address]- 4496 Aug, [facility] [place] [facility] [address] [id number] [place] [address]- 4169 Aug, [facility] [place] [facility] [address] [id number] [place] [address]- 3383 Aug, [facility] [place] [facility] [address] [id number] [place] [address]- 2073 Aug, [facility] [place] [facility] [address] [id number] [place] [address]- 4149 Aug, [facility] [place] [facility] [address] [id number] [place] [address]- 1278 Aug, [facility] [place] [facility] [address] [id number] [place] [address]- 0340 Aug, [facility] [place] [facility] [address] [id number] [place] [address]- 9963 Aug, [facility] [place] [facility] [address] [id number] [place] [address]- 4694 Aug, [facility] [place] [facility] [address] [id number] [place] [address]- 3999 Aug, [facility] [place] [facility] [address] [id number] [place] [address]- 8383 Aug, [facility] [place] [facility] [address] [id number] [place] [address]- 4301 Aug, [facility] [place] [facility] [address] [id number] [place] [address]- 6498 Jul, [facility] [place] [facility] [address] [id number] [place] [address]- 0766 Jul, [facility] [place] [facility] [address] [facility] [id number] [place] [address]- 4351 Jul, [facility] [place] [facility] [address] [id number] [place] [address]- 8422 Jul, [facility] [place] [facility] [address] [id number], [place] [address]- 0039 Jul, [facility] [place] [facility] [address] [id number] [place] [address]- 4841 Jul, [facility] [place] [facility] [address] [facility] [id number] [place] [address]- 7443 Jul, [facility] [place] [facility] [address] [facility] [id number], [place] [address]- 4882 Jun, [facility] [place] [facility] [address] [id number] [place] [address]- 8251 20 Jun, 2012 [facility] [address] [facility] [id number] [place] [address]- 1661 17 Jun, 2012 [facility] [address] [facility] [id number] [place] [address]- 1861 10 Jun, 2012 [facility] [address] [facility] [id number] [place] [address]- 2832 06 Jun, 2012 [facility] [address] [id number] [place] [address]- 8006 06 Jun, 2012 [facility] [address] [facility] [id number] [place] [address]- 6159 05 Jun, 2012 [facility] [address] [facility] [id number] [place] [address]- 1292 03 Jun, 2012 [facility] [id number] [place] [address]- 4411 27 May, 2013 [facility] [address] [id number] [place] [address]- 6809 May, [facility] [id number], [place] [address]- 2216 15 May, 2013 [facility] [address] [id number], [place] [address]- 3113 14 May, 2013 [facility] [id number], [place] [address]- 0460 May, [facility] [address] [facility] [id number], [place] [address]- 4419 May, [facility] [address] [facility] [id number], [place] [address]- 9109 May, [facility] [address] [facility] [id number], [place] [address]- [address] May, IMMUNIZATIONS No Known Immunizations SOCIAL HISTORY Never Assessed REASON FOR VISIT cough medication PLAN OF CARE VITAL SIGNS MEDICATIONS Medication Instructions Dosage Frequency Start Date End Date Duration Status Freeman Perles 100 MG Orally Three times a day,PRN 1 capsule as needed Oct, Active RESULTS No Results PROCEDURES No Known procedures INSTRUCTIONS MEDICATIONS ADMINISTERED No Known Medications MEDICAL (GENERAL) HISTORY Type Description Date Medical History type I diabetes Medical History hypertension Medical History hyperlipidemia Medical History asthma Medical History migraine headaches Medical History allergic rhinitis Medical History neuropathy Medical History Chronic osteomyelitis, site unspecified Medical History 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 Surgical History appendectomy [facility] 1995 Surgical History salpingectomy [facility] Surgical History bladder surgery-stretch [facility] 2003 Surgical History exploratory laparoscopy [facility] 1995 Surgical History amputation, toe (R great) Surgical History amputation, (R forefoot) 2014 Surgical History amputation, toe Left second 12/2016 Surgical History amputation, 4th left toe 02/2017 Hospitalization History Left foot cellulitis, left 2nd toe amputation-[facility] 12/23 Hospitalization History Surgery Hospitalizations
--- OUTSIDE RECORDS SUMMARY | 2018-08-22 09:16 | XMS REPORT ---
Author Author LUDIVINA STEPHANIE [facility] Address [address] [place] [address] Care Team Providers Care Accounting Policy Consultant Name Role Phone LUDIVINADEE DEE FAIRCHIL[place] Unavailable PROBLEMS Type Condition ICD9-CM Code SUL86-QE Code Onset Dates Condition Status SNOMED Code Problem Subclinical hypothyroidism E03.9 Active 25168386 Problem History of amputation of hallux Z89.419 Active 690546703 Problem Hypertriglyceridemia E78.1 Active 594249704 Problem Type 2 diabetes mellitus with other specified complication E11.69 Active 038296710 Problem Type 2 diabetes mellitus with diabetic polyneuropathy E11.42 Active 549975638 Problem Status post amputation of toe of left foot Z89.422 Active 421878556 Problem Pain in left foot M79.672 Active 92437594 Problem Other chronic pain G89.29 Active 54000308 Problem Ulcer of right heel L97.419 Active 464969121 Problem Intrinsic eczema L20.84 Active 92434196 Problem Irregular menstrual cycle N92.6 Active 69048016 Problem Type 2 diabetes mellitus with other skin complications E11.628 Active 98831111 Problem Type 2 diabetes mellitus with diabetic chronic 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 Active 582649552 Problem Chronic prescription opiate use Z79.891 Active 276157237 Problem Pain in right foot M79.671 Active 31011293 Problem Severe episode of recurrent major depressive disorder, without psychotic features F33.2 Active 78442519 Problem Tonsillolith J35.8 Active 5043236 Problem Chronic kidney disease, stage III (moderate) N18.3 Active 767695227 Problem Essential hypertension I10 Active 91913208 Problem Moderate persistent asthma without complication J45.40 Active 114174708 Problem Chronic migraine G43.709 Active 54611273 Problem Type 2 diabetes mellitus with foot ulcer E11.621 Active 14725209 Problem DM neuro manif type II E11.49 Active 44274870 Problem Anxiety disorder, unspecified F41.9 Active 742302289 Problem Obesity E66.9 Active 224046374 ALLERGIES No Information ENCOUNTERS Encounter Location Date Diagnosis [facility] [id number] [place] [address] 55788- 2279 February, [facility] [address] 08362- 4026 Jan, [facility] [address] 75552- 3253 30 Dec, 2017 Type 2 diabetes mellitus with diabetic polyneuropathy E11.42 [facility] [address] 00223- 6779 Dec, Type 2 diabetes mellitus with diabetic polyneuropathy E11.42 [facility] [address] 65705- 0270 15 Dec, 2017 [facility] [address] 00050- 2309 14 Dec, 2017 [facility] [id number] [place] [address] 58907- 1429 Dec, Chronic kidney disease, stage III (moderate) N18.3 [facility] [address] 92326 -6290 09 Dec, 2017 Nausea R11.0 and Diarrhea, unspecified type R19.7 [facility] [id number] [place] [address] 61655- 8240 Dec, Chronic kidney disease, stage III (moderate) N18.3 and Type 2 diabetes mellitus with diabetic polyneuropathy E11.42 [facility] [id number] [place] [address] 94586- 8837 Dec, [facility] [address] 26169- 0987 Nov, Ulcer of right heel L97.419 and Type 2 diabetes mellitus with diabetic polyneuropathy E11.42 [facility] [id number] [place] [address] [id number] Nov, Dental examination Z01.20 [facility] [address] [address] 85[address] Nov, Open wound of right foot, initial encounter S91.301A [facility] [id number] [place] [address] 48649 -2902 Nov, Open wound of right foot, initial encounter S91.301A ; Non- intractable vomiting with nausea, unspecified vomiting type R11.2 and BMI 60.0- 69.9, adult Z68.44 [facility] [id number] [place] [address] 33990- 6796 Nov, [facility] [id number] [place] [address] 40553- 0874 16 Nov, 2017 Other chronic pain G89.29 [facility] [id number] [place] [address] 71160- 1827 Oct, Cellulitis of right lower limb L03.115 [facility] [id number] [place] [address] 24280- 3866 Oct, [facility] [place] [id number] [place] [address] 09539- 9458 Oct, [facility] [place] [address] [place] [address] 82007- 3556 Oct, Cat scratch W55.03XA ; Cellulitis of right lower limb L03.115 ; Acute nasopharyngitis J00 ; BMI 60.0-69.9, adult Z68.44 and Cough R05 [facility] [id number] [place] [address] 53298- 8451 Oct, Cat scratch W55.03XA ; Cutaneous abscess of right lower extremity L02.415 and Cellulitis of right lower limb L03.115 [facility] [id number] [place] [address] 31912- 2047 Oct, Type 2 diabetes mellitus with diabetic polyneuropathy E11.42 [facility] [id number] [place] [address] 82671- 3958 Oct, Other chronic pain G89.29 [facility] [id number] [place] [address] 79200- 6161 Aug, [facility] [id number] [place] [address] 83477- 7055 Jul, Other chronic pain G89.29 [facility] [address] 68925- 8294 Jul, [facility] [id number] [place] [address] 22170- 7331 Jul, Chronic kidney disease, stage III (moderate) N18.3 [facility] [id number] [place] [address] 34985- 1360 Jul, Type 2 diabetes mellitus with diabetic polyneuropathy E11.42 ; Essential hypertension I10 ; Irregular menstrual cycle N92.6 ; Hypertriglyceridemia E78.1 ; Anxiety disorder, unspecified F41.9 ; Severe episode of recurrent major depressive disorder, without psychotic features F33.2 ; Tonsillolith J35.8 ; Intrinsic eczema L20.84 ; Subclinical hypothyroidism E03.9 ; Viral pharyngitis J02.9 and Encounter for immunization Z23 [facility] [id number] [place] [address] 63233- 1789 13 Jun, 2017 Essential hypertension I10 [place] [id number] [place] [address] 62285- 3937 08 Jun, 2017 [facility] [place] [id number] [place] [address] 96798- 9462 Jun, [facility] [id number] [place] [address] 81502- 2850 May, Moderate persistent asthma without complication J45.40 [place] [id number] [place] [address] 61893- 4663 May, Pain in right foot M79.671 ; Pain in left foot M79.672 ; Other chronic pain G89.29 and Chronic prescription opiate use Z79.891 [facility] [id number] [place] [address] 39249- 9389 May, [facility] [address] 24325- 6655 May, [facility] [id number] [place] [address] 11119- 1483 Apr, [facility] [address] 99606- 0570 Apr, Chronic migraine G43.709 [facility] [address] 03124- 1654 Apr, Essential hypertension I10 ; Hypertriglyceridemia E78.1 and Chronic migraine G43.709 [facility] [address] 86540- 5977 Apr, [facility] [id number] [place] [address] 37533- 1713 Apr, Sore throat J02.9 [facility] [id number] [place] [address] 46201- 9226 Apr, [facility] [id number] [place] [address] 81604- 3952 Mar, Strep pharyngitis J02.0 and Non-intractable vomiting with nausea, unspecified vomiting type R11.2 [facility] [id number] [place] [address] 41558- 6649 Mar, [facility] [id number] [place] [address] 75843- 1405 Mar, [facility] [id number] [place] [address] 13522- 5266 Mar, [facility] [id number] [place] [address] 82086- 2434 Mar, Type 2 diabetes mellitus with diabetic polyneuropathy E11.42 ; Moderate persistent asthma without complication J45.40 ; Status post amputation of toe of left foot Z89.422 ; Acute seasonal allergic rhinitis, unspecified trigger J30.2 and Left shoulder pain, unspecified chronicity M25.512 [facility] [place] [id number] [place] [address] 00388- 9643 Mar, [facility] [id number] [place] [address] 18509- 8165 February, Pre-op evaluation Z01.818 ; Type 2 diabetes mellitus with diabetic polyneuropathy E11.42 and Type 2 diabetes mellitus with foot ulcer E11.621 [place] [address] 01419- 5593 February, [place] [address] 76446- 0192 February, [place] [address] 45332- 1869 February, Toe infection L08.9 and Type 2 diabetes mellitus with other specified complication E11.69 [facility] [id number] [place] [address] 37456- 7359 February, [facility] [place] [id number] [place] [address] 69972- 3634 Jan, Type 2 diabetes mellitus with diabetic polyneuropathy E11.42 [facility] [place] [id number] [place] [address] 67401- 5999 Jan, [facility] [place] [id number] [place] [address] 62178- 5687 Jan, Right upper quadrant pain R10.11 and Intractable vomiting with nausea, unspecified vomiting type R11.2 [facility] [place] [id number] [place] [address] 36572- 3369 Jan, Hypertriglyceridemia E78.1 and Essential hypertension I10 [place] [address] 89442- 9748 Jan, Essential hypertension I10 ; Type 2 diabetes mellitus with diabetic polyneuropathy E11.42 and Hypertriglyceridemia E78.1 [facility] [address] 20463- 8863 Dec, Type 2 diabetes mellitus with diabetic polyneuropathy E11.42 [facility] [id number] [place] [address] 28950- 3782 Dec, Hypertriglyceridemia E78.1 ; Essential hypertension I10 ; Type 2 diabetes mellitus with diabetic polyneuropathy E11.42 ; Anxiety disorder , unspecified F41.9 and Moderate persistent asthma without complication J45.40 [facility] [address] 60438- 9868 Dec, Type 2 diabetes mellitus with diabetic polyneuropathy E11.42 [facility] [address] [id number] Dec, [facility] [address] 49756- 7318 Nov, [facility] [address] 63352- 6979 Nov, [facility] [address] 83202- 7446 Nov, [facility] [id number] [place] [address] 59179- 8949 Nov, Toe infection L08.9 [facility] [address] 87982- 1416 Nov, [facility] [address] 38802- 1058 Oct, History of amputation of hallux Z89.419 [facility] [address] 15369- 1829 Oct, Type 2 diabetes mellitus with diabetic polyneuropathy E11.42 [facility] [address] 74720- 2422 Oct, Type 2 diabetes mellitus with diabetic polyneuropathy E11.42 [facility] [address] [address]- 3117 Oct, Acute osteomyelitis of left foot M86.172 ; Pre-op exam Z01.818 and Type 2 diabetes mellitus with diabetic polyneuropathy E11.42 [facility] [address] [place] [address] 08561- 5569 Oct, Foot ulcer, left, with unspecified severity L97.529 ; Acute osteomyelitis of left foot M86.172 and Type 2 diabetes mellitus with diabetic polyneuropathy E11.42 [facility] [id number] [place] [address] 35922- 0189 Sep, [facility] [id number] [place] [address] 93672- 2323 Sep, Intractable vomiting with nausea, unspecified vomiting type R11.2 and Right upper quadrant pain R10.11 [facility] [id number] [place] [address] 65282- 1975 Aug, [facility] [id number] [place] [address] 67214- 4087 Jul, [facility] [id number] [place] [address] 18895- 6201 Jul, Preop examination Z01.818 [facility] [id number] [place] [address] 38554- 1022 Jul, [facility] [id number] [place] [address] 13272- 2168 Jul, [facility] [id number] [place] [address] 42712- 3818 Jul, Chronic osteomyelitis of left foot M86.672 and Ulcer of left foot, with unspecified severity L97.529 [facility] [address] [place] [address] 94735- 3638 Jul, Non-pressure chronic ulcer of other part of left foot with unspecified severity L97.529 [facility] [id number] [place] [address] 39183- 4387 Jul, [facility] [id number] [place] [address] 68197- 2338 Jul, [facility] [id number] [place] [address] 58598- 1996 Jun, [facility] [id number] [place] [address] 15942- 0344 Jun, [facility] [id number] [place] [address] 64852- 4807 Jun, [facility] [id number] [place] [address] 54504- 7894 Jun, Right upper quadrant pain R10.11 [facility] [id number] [place] [address] 40397- 3688 Jun, [facility] [id number] [place] [address] 38176- 2485 Jun, Intractable vomiting with nausea, unspecified vomiting type R11.2 [facility] [id number] [place] [address] 97083- 1096 13 Jun, 2016 Right upper quadrant pain R10.11 ; Migraine with aura and with status migrainosus, not intractable G43.101 and Intractable vomiting with nausea, unspecified vomiting type R11.2 [facility] [id number] [place] [address] 40221- 6293 Jun, [facility] [id number] [place] [address] 08408- 8692 Jun, Gastroenteritis K52.9 [facility] [id number] [place] [address] 48668- 9718 May, [facility] [id number] [place] [address] 51373- 0803 May, Hypertriglyceridemia E78.1 ; Essential hypertension I10 ; Type 2 diabetes mellitus with diabetic polyneuropathy E11.42 ; Moderate persistent asthma without complication J45.40 ; Type 2 diabetes mellitus with foot ulcer E11.621 ; Other chronic pain G89.29 ; Pain in right leg M79.604 ; Pain of left leg M79.605 ; Rash and nonspecific skin eruption R21 and Anxiety disorder, unspecified F41.[address] 77172- 4103 May, Essential hypertension I10 ; Hypertriglyceridemia E78.1 ; Upper respiratory infection J06.9 ; Subclinical hypothyroidism E03.9 and Type 2 diabetes mellitus with diabetic polyneuropathy E11.[address] 48214- 7559 Apr, Hypertriglyceridemia E78.1 ; Subclinical hypothyroidism E03.9 ; Essential hypertension I10 and Type 2 diabetes mellitus with diabetic polyneuropathy E11.42 [place] [address] 12053- 6392 Mar, [place] [address] 73250- 4415 Mar, Ulcer of right heel L97.419 [place] [address] 08690- 8246 Mar, [place] [id number] [place] [address] 18222- 1361 Mar, [place] [address] 18678- 9084 February, [place] [address] 07634- 2261 February, Ulcer of right heel L97.419 and DM neuro manif type II E11.49 [place] [address] 98534- 4044 Jan, [place] [address] 82197- 6396 Jan, Ulcer of right heel L97.419 ; Type 2 diabetes mellitus with foot ulcer E11.621 and Non-pressure chronic ulcer of other part of left foot with unspecified severity L97.529 [facility] [id number] [place] [address] 90383- 5529 Jan, [facility] [id number] [place] [address] 99932- 5780 Jan, [place] [address] 82679- 1184 Jan, Infection of toenail L03.039 [place] [address] 19858- 7337 Jan, Blister of toe of left foot, initial encounter S90.425A and Type 2 diabetes mellitus with diabetic polyneuropathy E11.42 [place] [address] 07534- 2739 Jan, [facility] [id number] [place] [address] 67365 -0193 Jan, Sore throat J02.9 and Strep pharyngitis J02.0 [place] [id number] [place] [address] 75583- 1790 Dec, Type 2 diabetes mellitus with diabetic polyneuropathy E11.42 ; Upper respiratory infection J06.9 ; Cough R05 and Asthma exacerbation J45.901 [place] [id number] [place] [address] 86449- 0585 Oct, [place] [id number] [place] [address] 37314- 5876 Oct, [facility] [id number] [place] [address] 70913- 3021 Oct, [facility] [id number] [place] [address] 12885- 0605 Oct, [facility] [address] [place] [address]- 7345 Sep, [place] [id number] [place] [address] 09867- 1893 Aug, Anxiety disorder, unspecified F41.9 and Obesity E66.9 [place] [address] 10385- 0612 Aug, Moderate persistent asthma without complication J45.40 [place] [address] 98965- 6471 Aug, Anxiety disorder, unspecified F41.9 [place] [address] 33795- 9204 Aug, Chronic migraine G43.709 ; Encounter for immunization Z23 ; Hypertriglyceridemia E78.1 ; Type 2 diabetes mellitus with diabetic polyneuropathy E11.42 ; Moderate persistent asthma without complication J45.40 and Morbid obesity E66.01 [place] [address] 63685- 0613 Jul, [place] [address] 70792- 2881 Jul, [place] [address] 57165- 0591 Jul, [place] [id number] [place] [address] 41211- 5610 Jul, Subclinical hypothyroidism E03.9 [place] [address] 56809- 0872 Jun, Essential hypertension, benign 401.1 ; Diabetic ulcer of lower extremity 250.80 ; Asthma 493.90 ; Diabetes mellitus type II, uncontrolled 250.02 and Hyperlipidemia associated with type 2 diabetes mellitus 250.80 [place] [id number] [place] [address] 63601- 8566 Jun, [place] [address] 28416- 8392 Jun, [facility] [address] [address]- 9366 May, [facility] [id number] [place] [address] 30890- 3026 Apr, [facility] [id number] [place] [address] 51414- 7478 Apr, Viral upper respiratory infection 465.9 and Asthma 493.90 [facility] [id number] [place] [address] 13045- 0463 Mar, Abnormal ankle brachial index 796.4 [facility] [id number] [place] [address] 35450- 2733 February, [facility] [id number] [place] [address] 50005- 4157 February, Essential hypertension, benign 401.1 [facility] [id number] [place] [address] 22188- 0765 February, Diabetic peripheral neuropathy 250.60 ; Ulcer of heel and midfoot 707.14 and Decreased pedal pulses 785.9 [facility] [id number] [place] [address] 55795- 8511 February, [facility] [id number] [place] [address] 84466- 1173 February, [facility] [address] [address]- 5349 Jan, [facility] [address] [address]- 5654 Jan, [facility] [id number] [place] [address] 00516- 1765 Dec, [facility] [address] [address]- 4146 Dec, [facility] [id number] [place] [address] 63606- 9643 Nov, [facility] [place] [facility] [address] [id number] [place] [address]- 2838 Nov, 2014 [facility] [place] [facility] [address] [id number] [place] [address]- 0756 Nov, 2014 [facility] [place] [facility] [address] [id number] [place] [address]- 5908 Nov, 2014 [facility] [place] [facility] [address] [id number] [place] [address]- 5818 Nov, 2014 [facility] [place] [facility] [address] [id number] [place] [address]- 8800 Nov, [facility] [place] [facility] [address] [id number] [place] [address]- 7627 Nov, [facility] [place] [facility] [address] [id number] [place] [address]- 0994 Nov, [facility] [place] [facility] [address] [id number] [place] [address]- 1081 Nov, [facility] [place] [facility] [address] [id number] [place] [address]- 9211 Oct, [facility] [place] [facility] [address] [id number] [place] [address]- 6615 Oct, [facility] [place] [facility] [address] [id number] [place] [address]- 9195 Oct, [facility] [place] [facility] [address] [id number] [place] [address]- 7998 Oct, [facility] [place] [facility] [address] [id number] [place] [address]- 5647 Oct, [facility] [place] [facility] [address] [id number] [place] [address] Oct, [facility] [place] [facility] [address] [id number] [place] [address] Oct, [facility] [place] [facility] [address] [id number] [place] [address] Oct, [facility] [address] [id number] [place] [address] Oct, [facility] [address] [id number] [place] [address] Oct, [facility] [address] [id number] [place] [address] Oct, [facility] [address] [id number] [place] [address] Oct, [facility] [address] [id number] [place] [address] Oct, [facility] [address] [id number] [place] [address] Sep, [facility] [address] [id number] [place] [address] Sep, [facility] [address] [id number] [place] [address] Sep, [facility] [address] [id number] [place] [address] Sep, [facility] [address] [id number] [place] [address] Sep, [facility] [address] [id number] [place] [address] Sep, [facility] [address] [id number] [place] [address] Sep, [facility] [place] [facility] [address] [id number] [place] [address] Sep, [facility] [address] [id number] [place] [address] Sep, [facility] [address] [id number] [place] [address] Sep, [facility] [place] [facility] [address] [id number] [place] [address] Sep, [facility] [place] [facility] [address] [id number] [place] [address] Sep, [facility] [facility] [address] [id number] [place] [address] Sep, [facility] [place] [facility] [address] [id number] [place] [address] Sep, [facility] [place] [facility] [address] [id number] [place] [address] Sep, [facility] [place] [facility] [address] [id number] [place] [address] Sep, [facility] [place] [facility] [address] [id number] [place] [address] 9869 Aug, [facility] [place] [facility] [address] [id number] [place] [address] 7065 Aug, [facility] [place] [facility] [address] [id number] [place] [address] 389[address] Aug, [facility] [place] [facility] [address] [id number] [place] [address] 7352 Aug, [facility] [place] [facility] [address] [id number] [place] [address]- 3656 Aug, [facility] [place] [facility] [address] [id number] [place] [address] Aug, [facility] [place] [facility] [address] [id number] [place] [address] 2253 Aug, [facility] [place] [facility] [address] [id number] [place] [address] 4[address] Aug, [facility] [place] [facility] [address] [id number] [place] [address] Jul, [facility] [place] [facility] [address] [id number] [place] [address] Jul, [facility] [place] [facility] [address] [id number] [place] [address] 7189 30 Jul, 2014 [facility] [place] [facility] [address] [id number] [place] [address]- 6149 Jul, [facility] [place] [facility] [address] [id number] [place] [address] 8097 Jul, [facility] [place] [facility] [address] [id number] [place] [address]- 0554 Jun, [facility] [place] [facility] [address] [id number] [place] [address] 9710 Jun, [facility] [place] [facility] [address] [id number] [place] [address]- 0141 Jun, [facility] [place] [facility] [address] [id number] [place] [address]- 1045 Jun, [facility] [place] [facility] [address] [id number] [place] [address]- 2690 Jun, [facility] [place] [facility] [address] [id number] [place] [address]- 2590 May, [facility] [place] [facility] [address] [id number] [place] [address]- 0671 May, [facility] [place] [facility] [address] [id number] [place] [address]- 0850 Apr, [facility] [place] [facility] [address] [id number] [place] [address]- 2593 Apr, [facility] [place] [facility] [address] [id number] [place] [address]- 1167 Apr, [facility] [place] [facility] [address] [id number] [place] [address]- 6810 Apr, [facility] [place] [facility] [address] [id number] [place] [address]- 1178 Apr, [facility] [place] [address] [id number] [place] [address]- 7429 Apr, [facility] [place] [facility] [address] [id number] [place] [address] 6744 Mar, [facility] [place] [address] [id number] [place] [address] 3304 Mar, [facility] [address] [id number] [place] [address]- 2316 Mar, [facility] [address] [id number] [place] [address]- 1523 Mar, [facility] [address] [id number] [place] [address]- 6137 Mar, [facility] [address] [id number] [place] [address]- 7091 Mar, [facility] [place] [facility] [address] [id number] [place] [address]- 0717 Mar, [facility] [place] [facility] [address] [id number] [place] [address] 5096 Mar, [facility] [place] [address] [id number] [place] [address]- 9627 Mar, [facility] [place] [address] [id number] [place] [address] 8328 Mar, [facility] [address] [id number] [place] [address]- 9631 Mar, [facility] [address] [id number] [place] [address]- 6096 Mar, [facility] [address] [id number] [place] [address]- 6891 Mar, [facility] [address] [id number] [place] [address] 2876 Mar, [facility] [address] [id number] [place] [address] 8992 Mar, [facility] [address] [id number] [place] [address] 4231 Mar, [facility] [address] [id number] [place] [address] 9026 February, [facility] [address] [id number] [place] [address] 8343 February, [facility] [address] [id number] [place] [address]- 0708 February, [facility] [address] [id number] [place] [address]- 9155 February, [facility] [address] [id number] [place] [address]- 3193 February, [facility] [address] [id number] [place] [address]- 1166 February, [facility] [address] [id number] [place] [address]- 7532 February, [facility] [address] [id number] [place] [address]- 0711 February, [facility] [address] [id number] [place] [address]- 9300 Jan, [facility] [address] [id number] [place] [address] 4942 Jan, [facility] [address] [id number] [place] [address]- 9811 Dec, [facility] [address] [id number] [place] [address] 1024 Dec, [facility] [address] [id number] [place] [address]- 5561 Dec, [facility] [address] [id number] [place] [address] 1904 Dec, [facility] [address] [id number] [place] [address]- 9941 24 Dec, 2013 [facility] [address] [id number] [place] [address]- 5102 24 Dec, 2013 [facility] [address] [id number] [place] [address]- 7784 19 Dec, 2013 [facility] [address] [id number] [place] [address]- 2175 19 Dec, 2013 [facility] [address] [id number] [place] [address]- 8885 17 Dec, 2013 [facility] [address] [id number] [place] [address]- 4504 17 Dec, 2013 [facility] [address] [id number] [place] [address]- 3848 14 Dec, 2013 [facility] [address] [id number] [place] [address]- 3612 14 Dec, 2013 [facility] [address] [id number] [place] [address]- 3743 Dec, [facility] [address] [id number] [place] [address]- 6496 Dec, [facility] [address] [id number] [place] [address]- 5577 Nov, [facility] [address] [id number] [place] [address]- 3215 Nov, [facility] [address] [id number] [place] [address]- 2377 Oct, [facility] [address] [id number] [place] [address]- 3565 Oct, [facility] [address] [id number] [place] [address]- 4814 Oct, [facility] [address] [id number] [place] [address]- 3817 Oct, [facility] [address] [id number] [place] [address]- 9984 Oct, [facility] [address] [id number] [place] [address]- 6311 Oct, [facility] [address] [id number] [place] [address]- 3199 Oct, [facility] [address] [id number] [place] [address]- 8521 Sep, [facility] [address] [id number] [place] [address]- 9891 Sep, [facility] [address] [id number] [place] [address]- 4669 Sep, [facility] [address] [id number] [place] [address]- 2183 Sep, [facility] [address] [id number] [place] [address]- 1356 Sep, [facility] [address] [id number] [place] [address]- 4330 Sep, [facility] [address] [id number] [place] [address]- 9942 Sep, [facility] [address] [id number] [place] [address]- 9176 Sep, [facility] [address] [id number] [place] [address]- 6653 Sep, [facility] [address] [id number] [place] [address]- 2906 Sep, [facility] [address] [id number] [place] [address]- 3978 Sep, [facility] [address] [id number] [place] [address]- 6103 Sep, [facility] [address] [id number] [place] [address]- 7211 Sep, [facility] [address] [id number] [place] [address]- 1337 16 Sep, 2013 [facility] [address] [id number] [place] [address]- 7438 Sep, [facility] [address] [id number] [place] [address]- 9183 Sep, [facility] [address] [id number] [place] [address]- 9243 Sep, [facility] [address] [id number] [place] [address]- 1094 Sep, [facility] [address] [id number] [place] [address]- 8258 Sep, [facility] [address] [id number] [place] [address]- 4399 Aug, [facility] [address] [id number] [place] [address]- 5690 Aug, [facility] [address] [id number] [place] [address]- 4062 Aug, [facility] [address] [id number] [place] [address]- 9166 Aug, [facility] [address] [id number] [place] [address]- 4849 Aug, [facility] [address] [id number] [place] [address]- 4261 Aug, [facility] [address] [id number] [place] [address]- 1546 Aug, [facility] [address] [id number] [place] [address]- 0031 Aug, [facility] [address] [id number] [place] [address]- 1983 Aug, [facility] [address] [id number] [place] [address]- 2579 Aug, [facility] [address] [id number] [place] [address]- 6298 Aug, [facility] [address] [id number] [place] [address]- 7271 Aug, [facility] [address] [id number] [place] [address]- 0781 Aug, [facility] [address] [id number] [place] [address]- 0167 Aug, [facility] [address] [id number] [place] [address]- 4132 Aug, [facility] [facility] [address] [id number] [place] [address]- 9129 Aug, [facility] [address] [id number] [place] [address]- 8382 Aug, [facility] [address] [id number] [place] [address]- 6038 Jul, [facility] [facility] [address] [id number] [place] [address]- 1122 Jul, [facility] [address] [facility] [id number] [place] [address]- 6513 Jul, [facility] [address] [id number] [place] [address]- 1241 Jul, [facility] [place] [facility] [address] [id number] [place] [address]- 2501 Jul, [facility] [address] [id number] [place] [address]- 0051 Jul, [facility] [address] [facility] [id number] [place] [address]- 0761 Jul, [facility] [place] [facility] [address] [id number] [place] [address] Jun, [facility] [address] [id number] [place] [address]- 3433 20 Jun, 2012 [facility] [address] [id number] [place] [address]- 6327 17 Jun, 2012 [facility] [address] [id number] [place] [address]- 2891 10 Jun, 2012 [facility] [address] [id number] [place] [address]- 1405 06 Jun, 2012 [facility] [address] [id number] [place] [address]- 3065 06 Jun, 2012 [facility] [address] [id number] [place] [address]- 2869 05 Jun, 2012 [facility] [address] [facility] [id number] [place] [address]- 5015 03 Jun, 2012 [facility] [address] [id number] [place] [address]- 0314 27 May, 2013 [facility] [address] [id number] [place] [address]- 1370 May, [facility] [address] [facility] [id number] [place] [address]- 5044 15 May, 2013 [facility] [address] [facility] [id number] [place] [address]- 2241 14 May, 2013 [facility] [address] [id number] [place] [address]- 7552 May, [facility] [address] [id number] [place] [address]- 2848 May, [facility] [address] [facility] [id number] [place] [address]- 6503 09 May, 2013 [facility] [address] [facility] [id number] [place] [address]- 9703 May, IMMUNIZATIONS No Known Immunizations SOCIAL HISTORY Never Assessed REASON FOR VISIT Refill Request PLAN OF CARE VITAL SIGNS MEDICATIONS Medication Instructions Dosage Frequency Start Date End Date Duration Status Pulmicort Flexhaler 90 MCG/ACT Inhalation Twice a day 1 puff 12h 25 Jun, 2015 Active RESULTS No Results PROCEDURES No Known [...] appendectomy FtDavida Antunez 1995 Surgical History salpingectomy Davida Antunez Surgical History bladder surgery-stretch Davida Antunez 2003 Surgical History exploratory laparoscopy Davida Walsh [facility] 1995 Surgical History amputation, toe (R great) Surgical History amputation, (R forefoot) 2014 Surgical History amputation, toe Left second 12/2016 Surgical History amputation, 4th left toe 02/2017 Hospitalization History Left foot cellulitis, left 2nd toe amputation-[facility] 12/23 Hospitalization History Surgery Hospitalizations
--- OUTSIDE RECORDS SUMMARY | 2018-08-22 09:17 | XMS REPORT ---
Author Author LUDIVINA STEPHANIE [facility] Address [address] [place] [address] Care Team Providers Care Fondant Puff Maker Name Role Phone FARNAZ FLORENCEY Unavailable PROBLEMS Type Condition ICD9-CM Code [id number] Code Onset Dates Condition Status SNOMED Code Problem Subclinical hypothyroidism E03.9 Active 72059032 Problem Hypertriglyceridemia E78.1 Active 487089275 Problem Type 2 diabetes mellitus with diabetic polyneuropathy E11.42 Active 938376661 Problem Type 2 diabetes mellitus with diabetic chronic 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 Active 223395296 Problem Other chronic pain G89.29 Active 95758990 Problem Type 2 diabetes mellitus with other skin complications E11.628 Active 77996832 Problem Pain in left foot M79.672 Active 61882574 Problem Irregular menstrual cycle N92.6 Active 90058274 Problem Pain in right foot M79.671 Active 80447531 Problem Tonsillolith J35.8 Active 1464486 Problem Chronic prescription opiate use Z79.891 Active 039191852 Problem Seasonal allergic rhinitis due to pollen J30.1 Active 96272977 Problem Asthma exacerbation, mild J45.901 Active 978886460 Problem Chronic kidney disease, stage III (moderate) N18.3 Active 787729684 Problem Chronic migraine G43.709 Active 53836073 Problem Moderate persistent asthma without complication J45.40 Active 794613008 Problem Intrinsic eczema L20.84 Active 32073060 Problem Severe episode of recurrent major depressive disorder, without psychotic features F33.2 Active 20729254 Problem Non-pressure chronic ulcer of right heel and midfoot limited to breakdown of skin L97.411 Active 353925112 Problem Ulcer of right heel L97.419 Active 626604313 Problem Obesity E66.9 Active 675565412 Problem Type 2 diabetes mellitus with foot ulcer E11.621 Active 01399412 Problem Essential hypertension I10 Active 22274437 Problem Anxiety disorder, unspecified F41.9 Active 410196825 Problem Type 2 diabetes mellitus with other specified complication E11.69 Active 160572358 Problem Status post amputation of toe of left foot Z89.422 Active 379831685 Problem DM neuro manif type II E11.49 Active 88340544 Problem History of amputation of hallux Z89.419 Active 878146945 ALLERGIES No Information ENCOUNTERS Encounter Location Date Diagnosis [facility] [id number] [place] [address] 67666- 4501 February, [facility] [address] 14158- 5988 February, [place] [id number] [address]71- 3209 February, Type 2 diabetes mellitus with diabetic polyneuropathy E11.42 ; Moderate persistent asthma without complication J45.40 ; Type 2 diabetes mellitus with foot ulcer E11.621 ; Non-pressure chronic ulcer of right heel and midfoot limited to breakdown of skin L97.411 ; Chronic migraine G43.709 and BMI 60.0-69.9, adult Z68.44 [facility] [address] [address] Jan, Asthma exacerbation, mild J45.901 ; Seasonal allergic rhinitis due to pollen J30.1 and BMI 60.0-69.9, adult Z68.44 [facility] [id number] [place] [address] 43364- 7058 Jan, [facility] [address] 18688- 7538 Jan, Other chronic pain G89.29 [facility] [address] 57719- 7725 Dec, Type 2 diabetes mellitus with diabetic polyneuropathy E11.42 [facility] [id number] [place] [address] 19339- 8210 Dec, Type 2 diabetes mellitus with diabetic polyneuropathy E11.42 [facility] [address] 64019- 7499 Dec, [place] [id number] [place] [address] 22740- 8849 14 Dec, 2017 [place] [id number] [place] [address] 29422- 5066 13 Dec, 2017 Chronic kidney disease, stage III (moderate) N18.3 [facility] [place] [id number] [place] [address] 85418 -7979 09 Dec, 2017 Nausea R11.0 and Diarrhea, unspecified type R19.7 [place] [address] 90307- 5192 07 Dec, 2017 Chronic kidney disease, stage III (moderate) N18.3 and Type 2 diabetes mellitus with diabetic polyneuropathy E11.42 [place] [id number] [place] [address] 25082- 8474 06 Dec, 2017 [place] [address] 32811- 8670 Nov, Ulcer of right heel L97.419 and Type 2 diabetes mellitus with diabetic polyneuropathy E11.42 [facility] [address] [id number] Nov, Dental examination Z01.20 [place] [id number] [place] [address] 16217- 0925 Nov, Open wound of right foot, initial encounter S91.301A [facility] [place] [id number] [place] [address] 87293 -9127 Nov, Open wound of right foot, initial encounter S91.301A ; Non- intractable vomiting with nausea, unspecified vomiting type R11.2 and BMI 60.0- 69.9, adult Z68.44 [place] [id number] [place] [address] 85781- 2605 Nov, [place] [id number] [place] [address] 15088- 7750 16 Nov, 2017 Other chronic pain G89.29 [place] [id number] [place] [address] 91641- 9286 Oct, Cellulitis of right lower limb L03.115 [place] [id number] [place] [address] 30920- 2968 Oct, [place] [id number] [place] [address] 43649- 5340 Oct, [place] [address] 50396- 5735 Oct, Cat scratch W55.03XA ; Cellulitis of right lower limb L03.115 ; Acute nasopharyngitis J00 ; BMI 60.0-69.9, adult Z68.44 and Cough R05 [place] [id number] [place] [address] 97223- 6981 Oct, Cat scratch W55.03XA ; Cutaneous abscess of right lower extremity L02.415 and Cellulitis of right lower limb L03.115 [place] [id number] [place] [address] 03635- 2295 Oct, Type 2 diabetes mellitus with diabetic polyneuropathy E11.42 [place] [id number] [place] [address] 65732- 4785 Oct, Other chronic pain G89.29 [place] [id number] [place] [address] 43776- 3553 Aug, [place] [id number] [place] [address] 07885- 2361 Jul, Other chronic pain G89.29 [place] [id number] [place] [address] 65924- 9286 Jul, [place] [id number] [place] [address] 64698- 6445 Jul, Chronic kidney disease, stage III (moderate) N18.3 [place] [address] 97917- 1440 Jul, Type 2 diabetes mellitus with diabetic polyneuropathy E11.42 ; Essential hypertension I10 ; Irregular menstrual cycle N92.6 ; Hypertriglyceridemia E78.1 ; Anxiety disorder, unspecified F41.9 ; Severe episode of recurrent major depressive disorder, without psychotic features F33.2 ; Tonsillolith J35.8 ; Intrinsic eczema L20.84 ; Subclinical hypothyroidism E03.9 ; Viral pharyngitis J02.9 and Encounter for immunization Z23 [place] [address] 12599- 6311 13 Jun, 2017 Essential hypertension I10 [place] [address] 07484- 7482 08 Jun, 2017 [place] [address] 73684- 5412 Jun, [place] [address] 07240- 9071 May, Moderate persistent asthma without complication J45.40 [place] [address] 68438- 7724 17 May, 2017 Pain in right foot M79.671 ; Pain in left foot M79.672 ; Other chronic pain G89.29 and Chronic prescription opiate use Z79.891 [place] [id number] [place] [address] 54427- 8347 May, [place] [address] 38258- 8523 May, [place] [id number] [place] [address] 57622- 5988 Apr, [place] [address] 59901- 2114 Apr, Chronic migraine G43.709 [place] [address] 64383- 7173 Apr, Essential hypertension I10 ; Hypertriglyceridemia E78.1 and Chronic migraine G43.709 [place] [id number] [place] [address] 87458- 7615 Apr, [place] [id number] [place] [address] 86861- 8572 Apr, Sore throat J02.9 [place] [id number] [place] [address] 89676- 9877 Apr, [place] [address] 81727- 0537 Mar, Strep pharyngitis J02.0 and Non-intractable vomiting with nausea, unspecified vomiting type R11.2 [place] [address] 62418- 7628 Mar, [place] [address] 40380- 1644 Mar, [place] [id number] [place] [address] 83083- 5193 Mar, [place] [id number] [place] [address] 77677- 7841 Mar, Type 2 diabetes mellitus with diabetic polyneuropathy E11.42 ; Moderate persistent asthma without complication J45.40 ; Status post amputation of toe of left foot Z89.422 ; Acute seasonal allergic rhinitis, unspecified trigger J30.2 and Left shoulder pain, unspecified chronicity M25.512 [place] [id number] [place] [address] 44251- 1107 Mar, [place] [id number] [place] [address] 30608- 8624 February, Pre-op evaluation Z01.818 ; Type 2 diabetes mellitus with diabetic polyneuropathy E11.42 and Type 2 diabetes mellitus with foot ulcer E11.621 [place] [id number] [place] [address] 45252- 0974 February, [place] [address] [place] [address]- 7971 February, [place] [id number] [place] [address] 63143- 7188 February, Toe infection L08.9 and Type 2 diabetes mellitus with other specified complication E11.69 [place] [id number] [place] [address] 93410- 1178 February, [place] [address] 55087- 3969 Jan, Type 2 diabetes mellitus with diabetic polyneuropathy E11.42 [place] [id number] [place] [address] 03880- 3306 Jan, [place] [id number] [place] [address] 93566- 0247 11 Jan, 2017 Right upper quadrant pain R10.11 and Intractable vomiting with nausea, unspecified vomiting type R11.2 [place] [id number] [place] [address] 96771- 0608 Jan, Hypertriglyceridemia E78.1 and Essential hypertension I10 [place] [id number] [place] [address] 61744- 7096 07 Jan, 2017 Essential hypertension I10 ; Type 2 diabetes mellitus with diabetic polyneuropathy E11.42 and Hypertriglyceridemia E78.1 [place] [id number] [place] [address] 54576- 7942 16 Dec, 2016 Type 2 diabetes mellitus with diabetic polyneuropathy E11.42 [place] [id number] [place] [address] 71665- 1015 15 Dec, 2016 Hypertriglyceridemia E78.1 ; Essential hypertension I10 ; Type 2 diabetes mellitus with diabetic polyneuropathy E11.42 ; Anxiety disorder , unspecified F41.9 and Moderate persistent asthma without complication J45.40 [place] [id number] [place] [address] 33915- 8469 15 Dec, 2016 Type 2 diabetes mellitus with diabetic polyneuropathy E11.42 [place] [id number] [address] Dec, [facility] [id number] [place] [address] 27168- 0946 Nov, [facility] [address] [address]- 6844 Nov, [facility] [id number] [place] [address] 17033- 9149 Nov, [facility] [id number] [place] [address] 83300- 5999 Nov, Toe infection L08.9 [facility] [id number] [place] [address] 52376- 0727 Nov, [facility] [id number] [place] [address] 16868- 3913 Oct, History of amputation of hallux Z89.419 [facility] [id number] [place] [address] 97498- 8593 Oct, Type 2 diabetes mellitus with diabetic polyneuropathy E11.42 [facility] [id number] [place] [address] 60756- 4574 17 Oct, 2016 Type 2 diabetes mellitus with diabetic polyneuropathy E11.42 [facility] [address] [address]- 5490 Oct, Acute osteomyelitis of left foot M86.172 ; Pre-op exam Z01.818 and Type 2 diabetes mellitus with diabetic polyneuropathy E11.42 [facility] [id number] [address]- 8810 Oct, Foot ulcer, left, with unspecified severity L97.529 ; Acute osteomyelitis of left foot M86.172 and Type 2 diabetes mellitus with diabetic polyneuropathy E11.42 [facility] [address] [address]- 7864 Sep, [facility] [address] [address]- 8837 Sep, Intractable vomiting with nausea, unspecified vomiting type R11.2 and Right upper quadrant pain R10.11 [facility] [id number] [place] [address] 36721- 4077 Aug, [facility] [id number] [place] [address] 37806- 6051 Jul, [facility] [id number] [place] [address] 67807- 1136 Jul, Preop examination Z01.818 [facility] [id number] [place] [address] 58593- 5173 Jul, [facility] [id number] [place] [address] 19270- 4554 Jul, [facility] [id number] [place] [address] 51831- 2424 Jul, Chronic osteomyelitis of left foot M86.672 and Ulcer of left foot, with unspecified severity L97.529 [facility] [id number] [place] [address] 53879- 2625 Jul, Non-pressure chronic ulcer of other part of left foot with unspecified severity L97.529 [facility] [address], [place] [address]- 9857 Jul, [facility] [id number] [place] [address] 47219- 2620 Jul, [facility] [id number] [place] [address] 15564- 2506 Jun, [facility] [id number] [place] [address] 81057- 3790 Jun, [facility] [id number] [place] [address] 16979- 2747 Jun, [facility] [id number] [place] [address] 14767- 8780 Jun, Right upper quadrant pain R10.11 [place] [id number] [place] [address] 15291- 7787 Jun, [place] [id number] [place] [address] 45943- 4050 19 Jun, 2016 Intractable vomiting with nausea, unspecified vomiting type R11.2 [place] [id number] [place] [address] 26921- 7699 13 Jun, 2016 Right upper quadrant pain R10.11 ; Migraine with aura and with status migrainosus, not intractable G43.101 and Intractable vomiting with nausea, unspecified vomiting type R11.2 [place] [id number] [place] [address] 71082- 5976 12 Jun, 2016 [place] [id number] [place] [address] 84008- 6596 Jun, Gastroenteritis K52.9 [place] [id number] [place] [address] 78646- 7621 May, [place] [id number] [place] [address] 74067- 9953 May, Hypertriglyceridemia E78.1 ; Essential hypertension I10 ; Type 2 diabetes mellitus with diabetic polyneuropathy E11.42 ; Moderate persistent asthma without complication J45.40 ; Type 2 diabetes mellitus with foot ulcer E11.621 ; Other chronic pain G89.29 ; Pain in right leg M79.604 ; Pain of left leg M79.605 ; Rash and nonspecific skin eruption R21 and Anxiety disorder, unspecified F41.9 [place] [id number] [place] [address] 98397- 8482 May, Essential hypertension I10 ; Hypertriglyceridemia E78.1 ; Upper respiratory infection J06.9 ; Subclinical hypothyroidism E03.9 and Type 2 diabetes mellitus with diabetic polyneuropathy E11.42 [place] [id number] [place] [address] 47271- 7721 21 Lev, 2016 Hypertriglyceridemia E78.1 ; Subclinical hypothyroidism E03.9 ; Essential hypertension I10 and Type 2 diabetes mellitus with diabetic polyneuropathy E11.42 [place] [id number] [place] [address] 60715- 1417 Mar, [facility] [id number] [place] [address] 18664- 3552 Mar, Ulcer of right heel L97.419 [place] [id number] [place] [address] 26217- 6543 Mar, [place] [id number] [place] [address] 75418- 9796 Mar, [place] [id number] [place] [address] 90802- 2990 February, [place] [id number] [place] [address] 20206- 5941 February, Ulcer of right heel L97.419 and DM neuro manif type II E11.49 [place] [id number] [place] [address] 72220- 7930 Jan, [place] [id number] [place] [address] 06013- 3437 Jan, Ulcer of right heel L97.419 ; Type 2 diabetes mellitus with foot ulcer E11.621 and Non-pressure chronic ulcer of other part of left foot with unspecified severity L97.529 [place] [address], [place] [address]- 4794 Jan, [place] [address], [place] [address]- 0194 Jan, [place] [id number] [place] [address] 15509- 4041 Jan, Infection of toenail L03.039 [place] [address], [place] [address]- 1964 Jan, Blister of toe of left foot, initial encounter S90.425A and Type 2 diabetes mellitus with diabetic polyneuropathy E11.42 [facility] [id number] [place] [address] 03196- 4489 Jan, [facility] [id number] [place] [address] 62919 -0576 Jan, Sore throat J02.9 and Strep pharyngitis J02.0 [facility] [address] 68252- 7154 Dec, Type 2 diabetes mellitus with diabetic polyneuropathy E11.42 ; Upper respiratory infection J06.9 ; Cough R05 and Asthma exacerbation J45.901 [place] [address] 54364- 4336 Oct, [place] [address] 82325- 9821 Oct, [facility] [id number] [place] [address] 60667- 8413 Oct, [facility] [id number] [place] [address] 38052- 4557 Oct, [place] [id number] [place] [address] 49106- 9410 Sep, [facility] [id number] [place] [address] 92340- 9154 Aug, Anxiety disorder, unspecified F41.9 and Obesity E66.9 [facility] [id number] [place] [address] 87791- 1771 Aug, Moderate persistent asthma without complication J45.40 [place] [address] 07957- 6954 Aug, Anxiety disorder, unspecified F41.9 [place] [id number] [place] [address] 79916- 0665 Aug, Chronic migraine G43.709 ; Encounter for immunization Z23 ; Hypertriglyceridemia E78.1 ; Type 2 diabetes mellitus with diabetic polyneuropathy E11.42 ; Moderate persistent asthma without complication J45.40 and Morbid obesity E66.01 [place] [address] 82937- 3600 Jul, [facility] [address] 45364- 5656 Jul, [place] [address] 56838- 6577 Jul, [place] [address] 25135- 4167 Jul, Subclinical hypothyroidism E03.[address] 72171- 5777 Jun, Essential hypertension, benign 401.1 ; Diabetic ulcer of lower extremity 250.80 ; Asthma 493.90 ; Diabetes mellitus type II, uncontrolled 250.02 and Hyperlipidemia associated with type 2 diabetes mellitus 250.80 [place] [id number] [place] [address] 42862- 7554 Jun, [place] [address] 02052- 6359 Jun, [place] [address] 73680- 1548 May, [address] 67366- 9518 Apr, [facility] [address] 47590- 5920 Apr, Viral upper respiratory infection 465.9 and Asthma 493.[address] 12790- 0197 Mar, Abnormal ankle brachial index 796.[address] 19327- 7521 February, [facility] [address] 31231- 8325 February, Essential hypertension, benign 401.1 [facility] [id number] [place] [address] 37197- 6365 February, Diabetic peripheral neuropathy 250.60 ; Ulcer of heel and midfoot 707.14 and Decreased pedal pulses 785.9 [facility] [address], [place] [address]- 4404 February, [facility] [id number] [place] [address] 14970- 6040 February, [facility] [id number] [place] [address] 55174- 7740 Jan, [facility] [id number] [place] [address] 16615- 3235 Jan, [facility] [id number] [place] [address] 70267- 5940 Dec, [facility] [id number] [place] [address] 43678- 2837 Dec, [facility] [id number] [place] [address] 71886- 6847 Nov, [facility] [address], [place] [address]- 5447 Nov, [facility] [id number] [place] [address] 45172- 0169 Nov, [facility] [address], [place] [address]- 9854 Nov, [facility] [id number] [place] [address] 46902- 6614 Nov, [facility] [id number] [address] Nov, [facility] [id number] [address] Nov, [facility] [place] [facility] [address] [id number] [place] [address] Nov, [facility] [place] [facility] [address] [id number] [place] [address] Nov, [facility] [place] [facility] [address] [id number] [place] [address] Oct, [facility] [place] [facility] [address] [id number] [place] [address] Oct, [facility] [place] [facility] [address] [id number] [place] [address] Oct, [facility] [place] [facility] [address] [id number] [place] [address] Oct, [facility] [place] [facility] [address] [id number] [place] [address] Oct, [facility] [place] [facility] [address] [id number] [place] [address] Oct, [facility] [place] [facility] [address] [id number] [place] [address] Oct, [facility] [place] [facility] [address] [id number] [place] [address] Oct, [facility] [place] [facility] [address] [id number] [place] [address] Oct, [facility] [place] [facility] [address] [id number] [address] Oct, [facility] [place] [facility] [address] [address] [id number] [place] [address] Oct, [facility] [place] [facility] [address] [id number], [place] [address] Oct, [facility] [place] [facility] [address] [id number] [place] [address] Oct, [facility] [place] [facility] [address] [id number] [place] [address] 30 Sep, 2014 [facility] [place] [facility] [address] [id number] [place] [address]26 Sep, [facility] [place] [facility] [address] [id number] [place] [address] Sep, [facility] [place] [facility] [address] [id number] [place] [address] 1896 Sep, [facility] [place] [facility] [address] [id number] [place] [address] Sep, [facility] [place] [facility] [address] [id number] [place] [address] 7347 Sep, [facility] [place] [facility] [address] [id number] [place] [address] 1231 Sep, [facility] [place] [facility] [address] [id number] [place] [address] 2764 Sep, [facility] [place] [facility] [address] [id number] [place] [address] 3368 Sep, [facility] [place] [facility] [address] [id number] [place] [address] 8269 Sep, [facility] [place] [facility] [address] [id number] [place] [address]- 4533 Sep, [facility] [place] [facility] [address] [id number] [place] [address]- 7565 Sep, [facility] [place] [facility] [address] [id number] [place] [address]- 3179 Sep, [facility] [place] [facility] [address] [id number] [place] [address]- 9945 Sep, [facility] [place] [facility] [address] [id number] [place] [address] Sep, [facility] [place] [facility] [address] [id number] [place] [address]- 1816 Sep, [facility] [place] [facility] [address] [id number] [place] [address]- 6544 Aug, [facility] [place] [facility] [address] [id number] [place] [address]- 1094 Aug, [facility] [place] [facility] [address] [id number] [place] [address]- 7735 Aug, [facility] [place] [facility] [address] [id number] [place] [address]- 5518 Aug, [facility] [place] [facility] [address] [id number] [place] [address]- 3004 Aug, [facility] [place] [facility] [address] [id number] [place] [address]- 0622 Aug, [facility] [place] [facility] [address] [id number] [place] [address]- 8913 Aug, [facility] [place] [facility] [address] [id number] [place] [address]- 8777 Aug, [facility] [place] [facility] [address] [id number] [place] [address]- 2000 Jul, [facility] [place] [facility] [address] [id number] [place] [address]- 8679 Jul, [facility] [place] [facility] [address] [id number] [place] [address]- [address] 30 Jul, 2014 [facility] [place] [facility] [address] [id number] [place] [address]- 3350 15 Jul, 2014 [facility] [place] [facility] [address] [id number] [place] [address]- 9220 15 Jul, 2014 [facility] [place] [facility] [address] [id number] [place] [address]- 1608 Jun, [facility] [place] [facility] [address] [id number] [place] [address]- 3551 25 Jun, 2014 [facility] [place] [facility] [address] [id number] [place] [address]- 9075 Jun, [facility] [place] [facility] [address] [id number] [place] [address]- 3163 Jun, [facility] [place] [facility] [address] [id number] [place] [address]- 1838 Jun, [facility] [place] [facility] [address] [id number] [place] [address]- 9081 May, [facility] [place] [facility] [address] [id number] [place] [address]- 1016 May, [facility] [place] [facility] [address] [id number] [place] [address]- 5811 Apr, [facility] [place] [facility] [address] [id number] [place] [address]- 9443 Apr, [facility] [place] [facility] [address] [id number] [place] [address]- 3277 Apr, [facility] [place] [facility] [address] [id number] [place] [address] 1916 Apr, [facility] [place] [facility] [address] [id number] [place] [address]- 5022 Apr, [facility] [place] [facility] [address] [id number] [place] [address]- 8456 Apr, [facility] [place] [facility] [address] [id number] [place] [address]- 3100 Mar, [facility] [place] [facility] [address] [id number] [place] [address]- 9448 Mar, [facility] [place] [facility] [address] [id number] [place] [address] 5864 Mar, [facility] [place] [facility] [address] [id number] [place] [address]- 3080 Mar, [facility] [place] [facility] [address] [id number] [place] [address]- 1185 Mar, [facility] [place] [facility] [address] [id number] [place] [address]- 6606 Mar, [facility] [place] [facility] [address] [id number] [place] [address]- 3412 Mar, [facility] [place] [facility] [address] [id number] [place] [address]- 2093 Mar, [facility] [place] [facility] [address] [id number] [place] [address]- 7117 Mar, [facility] [place] [facility] [address] [id number] [place] [address]- 0122 Mar, [facility] [place] [facility] [address] [id number] [place] [address]- 3783 Mar, [facility] [place] [facility] [address] [id number] [place] [address]- 6483 Mar, [facility] [place] [facility] [address] [id number] [place] [address]- 7736 Mar, [facility] [place] [facility] [address] [id number] [place] [address]- 3195 Mar, [facility] [place] [facility] [address] [id number] [place] [address]- 5464 Mar, [facility] [place] [facility] [address] [id number] [place] [address]- 9750 Mar, [facility] [place] [facility] [address] [id number] [place] [address]- 3242 February, [facility] [place] [facility] [address] [id number] [place] [address]- 9070 February, [facility] [place] [facility] [address] [id number] [place] [address]- 6558 February, [facility] [place] [facility] [address] [id number] [place] [address]- 9052 February, [facility] [place] [facility] [address] [id number] [place] [address]- 1159 February, [facility] [place] [facility] [address] [id number] [place] [address]- 0287 February, [facility] [place] [facility] [address] [id number] [place] [address]- 3807 February, [facility] [place] [facility] [address] [id number] [place] [address]- 1786 February, [facility] [place] [facility] [address] [id number] [place] [address]- 9852 Jan, [facility] [place] [facility] [address] [id number] [place] [address]- 4977 Jan, [facility] [place] [facility] [address] [id number] [place] [address]- 6951 Dec, [facility] [place] [facility] [address] [id number] [place] [address]- 3171 Dec, [facility] [place] [facility] [address] [id number] [place] [address]- 2112 Dec, [facility] [place] [facility] [address] [id number] [place] [address]- 7997 Dec, [facility] [place] [facility] [address] [id number] [place] [address]- 9136 Dec, [facility] [place] [facility] [address] [id number] [place] [address]- 8240 Dec, [facility] [place] [facility] [address] [id number] [place] [address]- 1116 Dec, [facility] [place] [facility] [address] [id number] [place] [address]- 5599 Dec, [facility] [place] [facility] [address] [id number] [place] [address]- 6306 Dec, [facility] [place] [facility] [address] [id number] [place] [address] Dec, [facility] [place] [facility] [address] [id number] [place] [address]- 8509 14 Dec, 2013 [facility] [place] [facility] [address] [id number] [place] [address]- 5994 14 Dec, 2013 [facility] [place] [facility] [address] [id number] [place] [address]- 8695 Dec, [facility] [place] [facility] [address] [id number] [place] [address]- 2717 Dec, [facility] [place] [facility] [address] [id number] [place] [address]- 9487 Nov, [facility] [place] [facility] [address] [id number] [place] [address]- 3668 Nov, [facility] [place] [facility] [address] [id number] [place] [address]- 7894 Oct, [facility] [place] [facility] [address] [id number] [place] [address]- 7330 Oct, [facility] [place] [facility] [address] [id number] [place] [address]- 5588 Oct, [facility] [place] [facility] [address] [id number] [place] [address]- 7564 Oct, [facility] [place] [facility] [address] [id number] [place] [address]- 1026 Oct, [facility] [place] [facility] [address] [id number] [place] [address]- 5407 Oct, [facility] [place] [facility] [address] [id number] [place] [address]- 3044 Oct, [facility] [place] [facility] [address] [id number] [place] [address]- 3567 Sep, [facility] [place] [facility] [address] [id number] [place] [address]- 0210 Sep, [facility] [place] [facility] [address] [id number] [place] [address]- 7913 Sep, [facility] [place] [facility] [address] [id number] [place] [address]- 2376 Sep, [facility] [place] [facility] [address] [id number] [place] [address]- 0196 Sep, [facility] [place] [facility] [address] [id number] [place] [address]- 9226 Sep, [facility] [place] [facility] [address] [id number] [place] [address]- 6146 Sep, [facility] [place] [facility] [address] [id number] [place] [address]- 6508 Sep, [facility] [place] [facility] [address] [id number] [place] [address]- 0716 Sep, [facility] [place] [facility] [address] [id number] [place] [address]- 3620 Sep, [facility] [place] [facility] [address] [id number] [place] [address]- 1264 Sep, [facility] [place] [facility] [address] [id number] [place] [address]- 0179 Sep, [facility] [place] [facility] [address] [id number] [place] [address]- 8342 Sep, [facility] [place] [facility] [address] [id number] [place] [address]- 4965 16 Sep, 2013 [facility] [place] [facility] [address] [id number] [place] [address]- 9364 Sep, [facility] [place] [facility] [address] [id number] [place] [address]- 2426 Sep, [facility] [place] [facility] [address] [id number] [place] [address]- 2256 Sep, [facility] [place] [facility] [address] [id number] [place] [address] Sep, [facility] [place] [facility] [address] [id number] [place] [address]- 6256 Sep, [facility] [place] [facility] [address] [id number] [place] [address]- 3405 Aug, [facility] [place] [facility] [address] [id number] [place] [address]- 6542 Aug, [facility] [place] [facility] [address] [id number] [place] [address]- 3967 Aug, [facility] [place] [facility] [address] [id number] [place] [address]- 2937 Aug, [facility] [place] [facility] [address] [id number] [place] [address]- 1405 Aug, [facility] [place] [facility] [address] [id number] [place] [address]- 4026 Aug, [facility] [place] [facility] [address] [id number] [place] [address]- 4041 Aug, [facility] [place] [facility] [address] [id number], [place] [address]- 3610 Aug, [facility] [place] [facility] [address] [id number], [place] [address]- 9066 Aug, [facility] [place] [facility] [address] [id number], [place] [address]- 0999 Aug, [facility] [place] [facility] [address] [id number], [place] [address]- 4642 Aug, [facility] [place] [facility] [address] [id number], [place] [address]- 3768 Aug, [facility] [place] [facility] [address] [id number], [place] [address]- 0231 Aug, [facility] [place] [facility] [address] [id number], [place] [address]- 7567 Aug, [facility] [place] [facility] [address] [id number], [place] [address]- 9127 Aug, [facility] [place] [facility] [address] [id number] [place] [address]- 7956 05 Aug, 2012 [facility] [place] [facility] [address] [id number] [place] [address]- 9906 05 Aug, 2012 [facility] [place] [facility] [address] [id number] [place] [address]289 Jul, 2012 [facility] [place] [facility] [address] [id number] [place] [address]- 5963 Jul, 2012 [facility] [place] [facility] [address] [id number] [place] [address]- 9439 Jul, 2012 [facility] [place] [facility] [address] [id number] [place] [address]- 8483 Jul, 2012 [facility] [place] [facility] [address] [id number] [place] [address]- 1516 Jul, [facility] [place] [facility] [address] [id number] [place] [address]- 9294 Jul, 2012 [facility] [place] [facility] [address] [id number] [place] [address]- 0007 Jul, [facility] [place] [facility] [address] [id number] [place] [address]- 3398 27 Sep, 2012 [facility] [place] [facility] [address] [facility] [id number] [place] [address]- 8548 20 Sep, 2012 [facility] [place] [facility] [address] [id number] [place] [address] 2546 17 Sep, 2012 [facility] [place] [facility] [address] [id number] [place] [address]- 2542 10 Sep, 2012 [facility] [place] [facility] [address] [id number] [place] [address] 2544 06 Sep, 2012 [facility] [place] [facility] [address] [id number] [place] [address]- 2546 06 Sep, 2012 [facility] [place] [facility] [address] [id number] [place] [address] 2543 Jun, [facility] [address] [id number], [place] [address]- 9320 Jun, [facility] [address], [place] [address]- 6085 May, [facility] [address], [place] [address]- 6286 May, [facility] [address]65[address], [place] [address]- 6521 May, [facility] [address], [place] [address]- 1683 May, [facility] [address], [place] [address]- 3859 May, [facility] [address], [place] [address]- 9115 May, [facility] [address], [place] [address]- 4575 May, [facility] [address] [id number], [place] [address]- 4471 May, IMMUNIZATIONS No Known Immunizations SOCIAL HISTORY Never Assessed REASON FOR VISIT Controlled Medication Refill PLAN OF CARE VITAL SIGNS MEDICATIONS Medication Instructions Dosage Frequency Start Date End Date Duration Status Hydrocodone-Acetaminophen 5-325 MG Orally every 4- 6 hrs as needed 1 tablet May, Active RESULTS No Results PROCEDURES No [...] History Left foot cellulitis, left 2nd toe amputation-[facility] 12/23 Hospitalization History Surgery Hospitalizations
--- OUTSIDE RECORDS SUMMARY | 2018-08-22 09:17 | XMS REPORT ---
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.422 Active 938708499 Problem Intrinsic eczema L20.84 Active 79487719 Problem Irregular menstrual cycle N92.6 Active 81695439 Problem Severe episode of recurrent major depressive disorder, without psychotic features F33.2 Active 83325843 Problem Essential hypertension I10 Active 44573525 Problem Type 2 diabetes mellitus with diabetic polyneuropathy E11.42 Active 264159238 Problem Other chronic pain G89.29 Active 17858448 Problem Pain in right foot M79.671 Active 41721485 Problem Tonsillolith J35.8 Active 9413628 Problem Chronic prescription opiate use Z79.891 Active 336170904 Problem Subclinical hypothyroidism E03.9 Active 24842688 Problem Hypertriglyceridemia E78.1 Active 686773764 Problem Moderate persistent asthma without complication J45.40 Active 720222314 Problem Chronic migraine G43.709 Active 66380797 Problem Obesity E66.9 Active 835257487 Problem Type 2 diabetes mellitus with foot ulcer E11.621 Active 73357700 Problem Type 2 diabetes mellitus with other skin complications E11.628 Active 56070503 Problem DM neuro manif type II E11.49 Active 02570284 Problem Anxiety disorder, unspecified F41.9 Active 512080565 Problem History of amputation of hallux Z89.419 Active 290141947 ALLERGIES No Information SOCIAL HISTORY Never Assessed PLAN OF CARE VITAL SIGNS MEDICATIONS Medication Instructions Dosage Frequency Start Date End Date Duration Status Glucometer glucometer as directed Dec, Active Test strips Test Strips as directed 6h Dec, Active RESULTS No Results PROCEDURES No Known procedures IMMUNIZATIONS No Known Immunizations MEDICAL (GENERAL) HISTORY Type Description Date Medical History type I diabetes Medical History hypertension Medical History hyperlipidemia Medical History asthma Medical History migraine headaches Medical History allergic rhinitis Medical History neuropathy Medical History Chronic osteomyelitis, site unspecified Surgical History appendectomy [facility] 1995 Surgical History salpingectomy [facility] Surgical History bladder surgery-stretch [facility] 2003 Surgical History exploratory laparoscopy [facility] 1995 Surgical History amputation, toe (R great) Surgical History amputation, (R forefoot) 2014 Surgical History amputation, toe Left second 12/2016 Surgical History amputation, 4th left toe 02/2017 Hospitalization History Left foot cellulitis, left 2nd toe amputation-[facility] 12/23
--- OUTSIDE RECORDS SUMMARY | 2018-08-22 09:18 | XMS REPORT ---
Author Author DOMITILA UMANA Organization [facility] Address [address] [place] [address] Care Team Providers Care Manager Financial Reporting Name Role Phone DOMITILA UMANA Unavailable PROBLEMS Type Condition ICD9-CM Code YHW80-YS Code Onset Dates Condition Status SNOMED Code Problem Subclinical hypothyroidism E03.9 Active 84351658 Problem History of amputation of hallux Z89.419 Active 073063933 Problem Hypertriglyceridemia E78.1 Active 941368083 Problem Type 2 diabetes mellitus with other specified complication E11.69 Active 609507753 Problem Type 2 diabetes mellitus with diabetic polyneuropathy E11.42 Active 915175959 Problem Status post amputation of toe of left foot Z89.422 Active 042649429 Problem Pain in left foot M79.672 Active 07418257 Problem Other chronic pain G89.29 Active 25220514 Problem Ulcer of right heel L97.419 Active 602362681 Problem Intrinsic eczema L20.84 Active 86449980 Problem Irregular menstrual cycle N92.6 Active 48676555 Problem Type 2 diabetes mellitus with other skin complications E11.628 Active 43128648 Problem Type 2 diabetes mellitus with diabetic chronic 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 Active 896720268 Problem Chronic prescription opiate use Z79.891 Active 018399360 Problem Pain in right foot M79.671 Active 54466691 Problem Severe episode of recurrent major depressive disorder, without psychotic features F33.2 Active 17527153 Problem Tonsillolith J35.8 Active 7369189 Problem Chronic kidney disease, stage III (moderate) N18.3 Active 312575870 Problem Essential hypertension I10 Active 19875269 Problem Moderate persistent asthma without complication J45.40 Active 294030884 Problem Chronic migraine G43.709 Active 90512493 Problem Type 2 diabetes mellitus with foot ulcer E11.621 Active 85104372 Problem DM neuro manif type II E11.49 Active 06214870 Problem Anxiety disorder, unspecified F41.9 Active 072857923 Problem Obesity E66.9 Active 342568715 ALLERGIES Substance Reaction Event Type Date Status Penicillin V Potassium Unknown Drug Allergy Mar, Active ENCOUNTERS Encounter Location Date Diagnosis [facility] [address] [address]- [address] February, [facility] [id number] [place] [address] 18505- 6199 Dec, Type 2 diabetes mellitus with diabetic polyneuropathy E11.42 [facility] [address] 61635- 8348 Dec, Type 2 diabetes mellitus with diabetic polyneuropathy E11.42 [place] [address] 39117- 3599 15 Dec, 2017 [place] [address] 85660- 0763 14 Dec, 2017 [place] [address] 08240- 4270 13 Dec, 2017 Chronic kidney disease, stage III (moderate) N18.3 [facility] [id number] [place] [address] 41236 -2823 09 Dec, 2017 Nausea R11.0 and Diarrhea, unspecified type R19.7 [facility] [id number] [place] [address] 13473- 3087 Dec, Chronic kidney disease, stage III (moderate) N18.3 and Type 2 diabetes mellitus with diabetic polyneuropathy E11.42 [facility] [id number] [place] [address] 18235- 6875 Dec, [facility] [id number] [place] [address] 91458- 8465 Nov, Ulcer of right heel L97.419 and Type 2 diabetes mellitus with diabetic polyneuropathy E11.42 [facility] [id number] [place] [address] [id number] Nov, Dental examination Z01.20 [facility] [address] [place] [address] 3597 Nov, Open wound of right foot, initial encounter S91.301A [facility] [address] [address] -1169 Nov, Open wound of right foot, initial encounter S91.301A ; Non- intractable vomiting with nausea, unspecified vomiting type R11.2 and BMI 60.0- 69.9, adult Z68.44 [place] [address] 39409- 4530 Nov, [place] [address] 70241- 0601 Nov, Other chronic pain G89.29 [place] [address] 24525- 7563 Oct, Cellulitis of right lower limb L03.115 [place] [address] 38548- 7736 Oct, [place] [address] 84851- 5153 Oct, [place] [id number] [place] [address] 01194- 9199 Oct, Cat scratch W55.03XA ; Cellulitis of right lower limb L03.115 ; Acute nasopharyngitis J00 ; BMI 60.0-69.9, adult Z68.44 and Cough R05 [place] [id number] [place] [address] 47112- 8216 Oct, Cat scratch W55.03XA ; Cutaneous abscess of right lower extremity L02.415 and Cellulitis of right lower limb L03.115 [place] [id number] [place] [address] 91858- 6142 Oct, Type 2 diabetes mellitus with diabetic polyneuropathy E11.42 [place] [address] 95736- 7300 Oct, Other chronic pain G89.29 [place] [id number] [place] [address] 70994- 7397 Aug, [place] [id number] [place] [address] 61272- 0578 Jul, Other chronic pain G89.29 [place] [address] 31874- 0363 Jul, [place] [address] 56614- 0513 Jul, Chronic kidney disease, stage III (moderate) N18.[address] 56134- 2603 04 Jul, 2017 Type 2 diabetes mellitus with diabetic polyneuropathy E11.42 ; Essential hypertension I10 ; Irregular menstrual cycle N92.6 ; Hypertriglyceridemia E78.1 ; Anxiety disorder, unspecified F41.9 ; Severe episode of recurrent major depressive disorder, without psychotic features F33.2 ; Tonsillolith J35.8 ; Intrinsic eczema L20.84 ; Subclinical hypothyroidism E03.9 ; Viral pharyngitis J02.9 and Encounter for immunization Z23 [place] [id number] [place] [address] 65586- 4250 13 Jun, 2017 Essential hypertension I10 [place] [id number] [place] [address] 92537- 6918 08 Jun, 2017 [place] [id number] [place] [address] 53895- 8101 07 Jun, 2017 [place] [id number] [place] [address] 59101- 0783 May, Moderate persistent asthma without complication J45.40 [place] [id number] [place] [address] 28641- 5959 May, Pain in right foot M79.671 ; Pain in left foot M79.672 ; Other chronic pain G89.29 and Chronic prescription opiate use Z79.891 [place] [address] [address]- 6[address] May, [facility] [id number] [place] [address] 01726- 8427 May, [facility] [id number] [place] [address] 22558- 9967 Apr, [facility] [id number] [place] [address] 13076- 6976 Apr, Chronic migraine G43.709 [facility] [id number] [place] [address] 80006- 5641 Apr, Essential hypertension I10 ; Hypertriglyceridemia E78.1 and Chronic migraine G43.709 [facility] [id number] [place] [address] 15271- 3364 Apr, [facility] [id number] [place] [address] 86480- 6637 Apr, Sore throat J02.9 [facility] [id number] [place] [address] 17503- 8855 Apr, [facility] [id number] [place] [address] 21360- 4274 Mar, Strep pharyngitis J02.0 and Non-intractable vomiting with nausea, unspecified vomiting type R11.2 [facility] [id number] [place] [address] 98844- 8745 Mar, [facility] [address] [address]- 4900 Mar, [facility] [id number] [place] [address] 86939- 6592 Mar, [facility] [id number] [place] [address] 21384- 6376 Mar, Type 2 diabetes mellitus with diabetic polyneuropathy E11.42 ; Moderate persistent asthma without complication J45.40 ; Status post amputation of toe of left foot Z89.422 ; Acute seasonal allergic rhinitis, unspecified trigger J30.2 and Left shoulder pain, unspecified chronicity M25.512 [place] [id number] [place] [address] 20839- 2803 Mar, [place] [id number] [place] [address] 05941- 5352 February, Pre-op evaluation Z01.818 ; Type 2 diabetes mellitus with diabetic polyneuropathy E11.42 and Type 2 diabetes mellitus with foot ulcer E11.621 [place] [id number] [place] [address] 48940- 4265 February, [place] [id number] [place] [address] 66481- 5038 February, [place] [id number] [place] [address] 02942- 3342 February, Toe infection L08.9 and Type 2 diabetes mellitus with other specified complication E11.69 [place] [id number] [place] [address] 60605- 9657 February, [place] [id number] [place] [address] 08986- 7098 Jan, Type 2 diabetes mellitus with diabetic polyneuropathy E11.42 [place] [id number] [place] [address] 52360- 9138 Jan, [place] [id number] [place] [address] 63551- 8715 Jan, Right upper quadrant pain R10.11 and Intractable vomiting with nausea, unspecified vomiting type R11.2 [place] [id number] [place] [address] 47073- 4395 Jan, Hypertriglyceridemia E78.1 and Essential hypertension I10 [place] [id number] [place] [address] 16393- 5039 07 Jan, 2017 Essential hypertension I10 ; Type 2 diabetes mellitus with diabetic polyneuropathy E11.42 and Hypertriglyceridemia E78.1 [facility] [id number] [place] [address] 50162- 7398 16 Dec, 2016 Type 2 diabetes mellitus with diabetic polyneuropathy E11.42 [facility] [id number] [place] [address] 92293- 8497 15 Dec, 2016 Hypertriglyceridemia E78.1 ; Essential hypertension I10 ; Type 2 diabetes mellitus with diabetic polyneuropathy E11.42 ; Anxiety disorder , unspecified F41.9 and Moderate persistent asthma without complication J45.40 [facility] [id number] [place] [address] 35806- 0492 15 Dec, 2016 Type 2 diabetes mellitus with diabetic polyneuropathy E11.42 [facility] [address] [id number] Dec, [facility] [id number] [place] [address] 00916- 5803 Nov, [facility] [id number] [place] [address] 20003- 9920 Nov, [facility] [id number] [place] [address] 28393- 9700 Nov, [facility] [id number] [place] [address] 73190- 9127 Nov, Toe infection L08.9 [facility] [id number] [place] [address] 59864- 2778 Nov, [facility] [id number] [place] [address] 57752- 3579 Oct, History of amputation of hallux Z89.419 [facility] [id number] [place] [address] 34159- 7374 Oct, Type 2 diabetes mellitus with diabetic polyneuropathy E11.42 [facility] [id number] [place] [address] 99214- 8435 Oct, Type 2 diabetes mellitus with diabetic polyneuropathy E11.42 [facility] [address], [place] [address]- 1772 Oct, Acute osteomyelitis of left foot M86.172 ; Pre-op exam Z01.818 and Type 2 diabetes mellitus with diabetic polyneuropathy E11.42 [facility] [address], [place] [address]- 9914 Oct, Foot ulcer, left, with unspecified severity L97.529 ; Acute osteomyelitis of left foot M86.172 and Type 2 diabetes mellitus with diabetic polyneuropathy E11.42 [facility] [id number] [place] [address] 72750- 3864 Sep, [facility] [id number] [place] [address] 89916- 5106 Sep, Intractable vomiting with nausea, unspecified vomiting type R11.2 and Right upper quadrant pain R10.11 [facility] [id number] [place] [address] 17811- 2199 Aug, [facility] [id number] [place] [address] 67574- 8791 Jul, [facility] [id number] [place] [address] 58714- 5011 Jul, Preop examination Z01.818 [facility] [address] [address]- 8903 Jul, [facility] [id number] [place] [address] 13357- 6241 Jul, [facility] [address] [place] [address] 28552- 7736 Jul, Chronic osteomyelitis of left foot M86.672 and Ulcer of left foot, with unspecified severity L97.529 [facility] [id number] [place] [address] 63959- 5095 Jul, Non-pressure chronic ulcer of other part of left foot with unspecified severity L97.529 [place] [address] [address]- 8887 Jul, [facility] [id number] [place] [address] 31154- 4736 Jul, [facility] [id number] [place] [address] 56958- 1460 28 Jun, 2016 [facility] [id number] [place] [address] 42807- 9124 Jun, [facility] [id number] [place] [address] 49061- 1008 Jun, [facility] [id number] [place] [address] 27935- 6709 21 Jun, 2016 Right upper quadrant pain R10.11 [facility] [id number] [place] [address] 93334- 0987 20 Jun, 2016 [facility] [id number] [place] [address] 46483- 8810 19 Jun, 2016 Intractable vomiting with nausea, unspecified vomiting type R11.2 [facility] [id number] [place] [address] 54022- 9580 13 Jun, 2016 Right upper quadrant pain R10.11 ; Migraine with aura and with status migrainosus, not intractable G43.101 and Intractable vomiting with nausea, unspecified vomiting type R11.2 [facility] [id number] [place] [address] 81164- 4788 Jun, [facility] [id number] [place] [address] 54592- 3339 Jun, Gastroenteritis K52.9 [facility] [id number] [place] [address] 49069- 5908 May, [facility] [id number] [place] [address] 06206- 8082 May, Hypertriglyceridemia E78.1 ; Essential hypertension I10 ; Type 2 diabetes mellitus with diabetic polyneuropathy E11.42 ; Moderate persistent asthma without complication J45.40 ; Type 2 diabetes mellitus with foot ulcer E11.621 ; Other chronic pain G89.29 ; Pain in right leg M79.604 ; Pain of left leg M79.605 ; Rash and nonspecific skin eruption R21 and Anxiety disorder, unspecified F41.9 [place] [id number] [place] [address] 63136- 3244 May, 2016 Essential hypertension I10 ; Hypertriglyceridemia E78.1 ; Upper respiratory infection J06.9 ; Subclinical hypothyroidism E03.9 and Type 2 diabetes mellitus with diabetic polyneuropathy E11.42 [place] [address] 45120- 6122 Apr, 2016 Hypertriglyceridemia E78.1 ; Subclinical hypothyroidism E03.9 ; Essential hypertension I10 and Type 2 diabetes mellitus with diabetic polyneuropathy E11.42 [place] [id number] [place] [address] 05050- 3357 Mar, [place] [address] 06617- 4172 Mar, Ulcer of right heel L97.419 [place] [address] 32554- 8459 Mar, [place] [id number] [place] [address] 55901- 3573 Mar, [place] [id number] [place] [address] 46795- 8242 February, [place] [id number] [place] [address] 25374- 3492 February, Ulcer of right heel L97.419 and DM neuro manif type II E11.49 [place] [id number] [place] [address] 61890- 0552 Jan, [place] [id number] [place] [address] 88418- 2185 Jan, Ulcer of right heel L97.419 ; Type 2 diabetes mellitus with foot ulcer E11.621 and Non-pressure chronic ulcer of other part of left foot with unspecified severity L97.529 [facility] [id number] [place] [address] 77967- 2183 Jan, [facility] [id number] [place] [address] 79557- 9660 Jan, [facility] [id number] [place] [address] 23947- 7371 Jan, Infection of toenail L03.039 [facility] [id number] [place] [address] 01295- 1108 Jan, Blister of toe of left foot, initial encounter S90.425A and Type 2 diabetes mellitus with diabetic polyneuropathy E11.42 [facility] [id number] [place] [address] 27691- 1545 Jan, [facility] [id number] [place] [address] 91555 -9881 Jan, Sore throat J02.9 and Strep pharyngitis J02.0 [facility] [id number] [place] [address] 57292- 6412 Dec, Type 2 diabetes mellitus with diabetic polyneuropathy E11.42 ; Upper respiratory infection J06.9 ; Cough R05 and Asthma exacerbation J45.901 [place] [id number] [place] [address] 44809- 9652 Oct, [facility] [id number] [place] [address] 89069- 6560 Oct, [facility] [id number] [place] [address] 30691- 2920 Oct, [facility] [id number] [place] [address] 00872- 6554 Oct, [facility] [id number] [place] [address] 82311- 0072 Sep, [place] [id number] [place] [address] 01694- 8709 Aug, Anxiety disorder, unspecified F41.9 and Obesity E66.9 [place] [id number] [place] [address] 71225- 0967 Aug, Moderate persistent asthma without complication J45.[address] 35405- 2279 Aug, Anxiety disorder, unspecified F41.[address] 74195- 3694 Aug, Encounter for immunization Z23 ; Chronic migraine G43.709 ; Hypertriglyceridemia E78.1 ; Type 2 diabetes mellitus with diabetic polyneuropathy E11.42 ; Moderate persistent asthma without complication J45.40 and Morbid obesity E66.[address] 29038- 4774 Jul, [address] 71100- 9064 Jul, [address] 53697- 0010 Jul, [place] [id number] [place] [address] 15480- 0999 Jul, Subclinical hypothyroidism E03.[address] 64494- 0153 Jun, Essential hypertension, benign 401.1 ; Diabetic ulcer of lower extremity 250.80 ; Asthma 493.90 ; Diabetes mellitus type II, uncontrolled 250.02 and Hyperlipidemia associated with type 2 diabetes mellitus [address] 22016- 7456 Jun, [address] 41630- 1925 Jun, [address] 27132- 2267 May, [facility] [address], [place] [address]- 7733 Apr, [facility] [id number] [place] [address] 90535- 5861 Apr, Viral upper respiratory infection 465.9 and Asthma 493.90 [facility] [id number] [place] [address] 13725- 3727 Mar, Abnormal ankle brachial index 796.4 [facility] [id number] [place] [address] 29975- 8147 February, [facility] [id number] [place] [address] 50485- 3187 February, Essential hypertension, benign 401.1 [facility] [id number] [place] [address] 47663- 5287 February, Diabetic peripheral neuropathy 250.60 ; Ulcer of heel and midfoot 707.14 and Decreased pedal pulses 785.9 [facility] [address] [address]- 6763 February, [facility] [id number] [place] [address] 16972- 9308 February, [facility] [address], [place] [address]- 1933 Jan, [facility] [id number] [place] [address] 14423- 3938 Jan, [facility] [address], [place] [address]- 5841 Dec, [facility] [id number] [place] [address] 66199- 5835 Dec, [facility] [address] 0353 Nov, [facility] [id number] [place] [address] 59602- 6401 Nov, 2014 [facility] [place] [facility] [address] [id number] [place] [address]- 0146 Nov, 2014 [facility] [place] [facility] [address] [id number] [place] 5126 Nov, 2014 [facility] [place] [facility] [address] [id number] [place] [address]- 8096 Nov, 2014 [facility] [place] [facility] [address] [id number] [place] [address] 2546 Nov, 2014 [facility] [place] [facility] [address] [id number] [place] [address]- 8186 Nov, 2014 [facility] [place] [facility] [address] [facility] [id number] [place] [address]- 2546 Nov, [facility] [place] [facility] [address] [place] [id number] [address]- 5440 Nov, [facility] [place] [facility] [address] [facility] [id number] [place] [address]- 9507 Oct, [facility] [place] [facility] [address] [facility] [id number] [place] [address]- 9268 Oct, [facility] [place] [facility] [address] [facility] [id number] [place] [address]- 2367 Oct, [facility] [place] [facility] [address] [facility] [id number] [place] [address] 2549 Oct, [facility] [place] [facility] [address] [id number] [place] [address]- 2540 Oct, [facility] [place] [facility] [address] [id number] [place] [address]- 0199 Oct, [facility] [place] [facility] [address] [facility] [id number] [place] [address]- 3374 Oct, [facility] [place] [facility] [address] [facility] [id number] [place] [address] Oct, [facility] [address] [id number] [place] [address] Oct, [facility] [place] [facility] [address] [id number] [place] [address] Oct, [facility] [place] [facility] [address] [id number] [place] [address] Oct, [facility] [place] [facility] [address] [id number] [place] [address] Oct, [facility] [place] [facility] [address] [id number] [place] [address] Oct, [facility] [place] [facility] [address] [id number] [place] [address] Sep, [facility] [place] [facility] [address] [id number] [place] [address] Sep, [facility] [place] [facility] [address] [id number] [place] [address] Sep, [facility] [place] [facility] [address] [id number] [place] [address] Sep, [facility] [place] [facility] [address] [id number] [place] [address] Sep, [facility] [place] [facility] [address] [id number] [place] [address] Sep, [facility] [place] [facility] [address] [id number] [place] [address] Sep, [facility] [place] [facility] [address] [id number] [place] [address] Sep, [facility] [place] [facility] [address] [id number] [place] [address] Sep, [facility] [place] [facility] [address] [id number] [place] [address] Sep, [facility] [place] [facility] [address] [id number], [place] [address] Sep, [facility] [place] [facility] [address] [id number] [place] [address] Sep, [facility] [place] [facility] [address] [id number] [place] [address] Sep, [facility] [place] [facility] [address] [facility] [id number] [place] [address] Sep, [facility] [place] [facility] [address] [id number] [place] [address] Sep, [facility] [place] [facility] [address] [id number] [place] [address] Sep, [facility] [place] [facility] [address] [id number] [place] [address] Aug, [facility] [place] [facility] [address] [facility] [id number] [place] [address]- 47[address] Aug, [facility] [place] [facility] [address] [facility] [id number] [place] [address] Aug, [facility] [place] [facility] [address] [facility] [id number] [place] [address] Aug, [facility] [place] [facility] [address] [facility] [id number] [place] [address]- [address] Aug, [facility] [place] [facility] [address] [facility] [id number], [place] [address] Aug, [facility] [place] [facility] [address] [id number], [place] [address] Aug, [facility] [place] [facility] [address] [id number] [place] [address]- 8396 Aug, [facility] [place] [facility] [address] [facility] [id number] [place] [address]- 1436 Jul, [facility] [place] [facility] [address] [facility] [id number] [place] [address]- [address] Jul, [facility] [place] [facility] [address] [id number] [place] [address]15 30 Jul, 2014 [facility] [place] [facility] [address] [id number] [place] [address]- 3910 Jul, [facility] [place] [facility] [address] [id number] [place] [address]- 4[address] Jul, [facility] [place] [facility] [address] [id number] [place] [address]- 6786 Jun, [facility] [place] [facility] [address] [id number] [place] [address]- 1804 Jun, [facility] [place] [facility] [address] [id number] [place] [address]- 1273 Jun, [facility] [place] [facility] [address] [id number] [place] [address]- 9772 Jun, [facility] [place] [facility] [address] [id number] [place] [address]- 8[address] Jun, [facility] [place] [facility] [address] [id number] [place] [address]- 1430 May, [facility] [place] [facility] [address] [id number] [place] [address]- 4588 May, [facility] [place] [facility] [address] [id number] [place] [address]- 9096 Apr, [facility] [place] [facility] [address] [id number] [place] [address]- 2031 Apr, [facility] [place] [facility] [address] [id number] [place] [address]- 7739 Apr, [facility] [place] [facility] [address] [id number] [place] [address]- 8283 Apr, [facility] [place] [facility] [address] [id number] [place] [address]- 1636 Apr, [facility] [place] [facility] [address] [id number] [place] [address]- 1094 Apr, [facility] [place] [facility] [address] [id number] [place] [address]- 7042 Mar, [facility] [place] [facility] [address] [id number] [place] [address]- 9457 Mar, [facility] [place] [facility] [address] [id number] [place] [address]- 5327 Mar, [facility] [place] [facility] [address] [id number] [place] [address]- 8137 Mar, [facility] [place] [facility] [address] [id number] [place] [address]- 8611 Mar, [facility] [place] [facility] [address] [id number] [place] [address]- 0117 Mar, [facility] [place] [facility] [address] [id number] [place] [address]- 0626 Mar, [facility] [place] [facility] [address] [id number] [place] [address] 7437 Mar, [facility] [place] [facility] [address] [id number] [place] [address]- 5053 Mar, [facility] [place] [facility] [address] [id number] [place] [address]- 4336 Mar, [facility] [place] [facility] [address] [id number], [place] [address] 2031 Mar, [facility] [place] [facility] [address] [id number], [place] [address] Mar, [facility] [place] [facility] [address] [id number] [place] [address]- 4484 Mar, [facility] [place] [facility] [address] [id number] [place] [address]- 1455 Mar, [facility] [place] [facility] [address] [id number] [place] [address] 8608 Mar, [facility] [place] [facility] [address] [id number] [place] [address]- 1969 Mar, [facility] [place] [facility] [address] [id number] [place] [address]- 7435 February, [facility] [place] [facility] [address] [id number] [place] [address]- 2124 February, [facility] [place] [facility] [address] [id number] [place] [address]- 8209 February, [facility] [place] [facility] [address] [id number] [place] [address]- 0835 February, [facility] [place] [facility] [address] [id number] [place] [address] February, [facility] [place] [facility] [address] [id number] [place] [address]- 3039 February, [facility] [place] [facility] [address] [id number] [place] [address]- 0928 February, [facility] [place] [facility] [address] [id number] [place] [address]- 4891 February, [facility] [place] [facility] [address] [id number] [place] [address]- 5691 Jan, [facility] [place] [facility] [address] [id number] [place] [address]- 1107 Jan, [facility] [place] [facility] [address] [id number] [place] [address]- 4047 Dec, [facility] [place] [facility] [address] [id number] [place] [address] 3303 Dec, [facility] [place] [facility] [address] [id number] [place] [address]- 8771 Dec, [facility] [place] [facility] [address] [id number] [place] [address]- 7447 Dec, [facility] [place] [facility] [address] [id number] [place] [address]- 4611 Dec, [facility] [place] [facility] [address] [id number] [place] [address]- 9227 24 Dec, 2013 [facility] [place] [facility] [address] [id number] [place] [address]- 5333 19 Dec, 2013 [facility] [place] [facility] [address] [id number] [place] [address]- 7904 19 Dec, 2013 [facility] [place] [facility] [address] [id number] [place] [address]- 3839 17 Dec, 2013 [facility] [place] [facility] [address] [id number] [place] [address]- 2266 17 Dec, 2013 [facility] [place] [facility] [address] [id number] [place] [address]- 6971 14 Dec, 2013 [facility] [place] [facility] [address] [id number] [place] [address]- 8815 14 Dec, 2013 [facility] [place] [facility] [address] [id number] [place] [address]- 5045 Dec, [facility] [place] [facility] [address] [id number] [place] [address]- 6244 Dec, [facility] [place] [facility] [address] [id number] [place] [address]- 9700 Nov, [facility] [place] [facility] [address] [id number] [place] [address]- 0566 Nov, [facility] [place] [facility] [address] [id number] [place] [address]- 2608 Oct, [facility] [place] [facility] [address] [id number] [place] [address]- 2169 Oct, [facility] [place] [facility] [address] [id number] [place] [address]- 3101 Oct, [facility] [place] [facility] [address] [id number] [place] [address]- 8852 16 Oct, 2013 [facility] [place] [facility] [address] [id number] [place] [address]- 5157 Oct, [facility] [address] [id number] [place] [address]- 3817 Oct, [facility] [place] [facility] [address] [id number] [place] [address]- 4977 Oct, [facility] [address] [id number] [place] [address]- 6815 31 Sep, 2013 [facility] [place] [facility] [address] [id number] [place] [address]- 6469 30 Sep, 2013 [facility] [address] [id number] [place] [address]- 9909 30 Sep, 2013 [facility] [place] [facility] [address] [id number] [place] [address]- 1272 29 Sep, 2013 [facility] [address] [id number] [place] [address]- 0980 Sep, [facility] [place] [facility] [address] [id number] [place] [address]- 8015 Sep, [facility] [address] [id number] [place] [address]- 2808 Sep, [facility] [place] [facility] [address] [id number] [place] [address]- 3030 Sep, [facility] [place] [facility] [address] [id number] [place] [address]- 3119 24 Sep, 2013 [facility] [place] [facility] [address] [id number] [place] [address]- 6770 24 Sep, 2013 [facility] [place] [facility] [address] [id number] [place] [address]- 6789 Sep, [facility] [place] [facility] [address] [id number] [place] [address]- 9190 Sep, [facility] [place] [facility] [address] [id number] [place] [address]- 8584 16 Sep, 2013 [facility] [place] [facility] [address] [id number] [place] [address]- 5741 16 Sep, 2013 [facility] [address] [id number] [place] [address]- 7180 Sep, [facility] [address] [id number] [place] [address]- 2682 Sep, [facility] [address] [id number] [place] [address]- 0879 Sep, [facility] [address] [id number] [place] [address]- 8979 Sep, [facility] [address] [id number] [place] [address]- 2969 Sep, [facility] [address] [id number] [place] [address]- 0599 Aug, [facility] [address] [id number] [place] [address]- 5472 Aug, [facility] [address] [id number] [place] [address]- 1766 Aug, [facility] [address] [id number] [place] [address]- 0672 Aug, [facility] [address] [id number] [place] [address]- 7155 Aug, [facility] [address] [id number] [place] [address]- 0157 Aug, [facility] [address] [id number] [place] [address]- 4972 Aug, [facility] [place] [facility] [address] [id number] [place] [address]- 5652 Aug, [facility] [address] [id number] [place] [address]- 5614 Aug, [facility] [address] [id number] [place] [address]- 6423 Aug, [facility] [place] [facility] [address] [id number] [place] [address]- 9538 Aug, [facility] [place] [facility] [address] [id number] [place] [address]- 5671 Aug, [facility] [place] [facility] [address] [id number] [place] [address]- 1670 Aug, [facility] [place] [facility] [address] [id number] [place] [address]- 4653 Aug, [facility] [place] [facility] [address] [id number] [place] [address]- 5534 Aug, [facility] [place] [facility] [address] [id number] [place] [address]- 8026 Aug, [facility] [place] [facility] [address] [id number] [place] [address]- 1960 Aug, [facility] [place] [facility] [address] [id number], [place] [address]- 9319 Jul, [facility] [place] [facility] [address] [id number] [place] [address]- 6736 Jul, [facility] [place] [facility] [address] [id number], [place] [address]- 1671 Jul, [facility] [place] [facility] [address] [id number], [place] [address]- 6284 Jul, [facility] [place] [facility] [address] [id number], [place] [address]- 1478 Jul, [facility] [place] [facility] [address] [id number] [place] [address]- 9331 Jul, [facility] [place] [facility] [address] [id number], [place] [address]- 4730 Jul, [facility] [place] [facility] [address] [id number] [address]32 Jun, [facility] [place] [facility] [address] [id number], [place] [address]- 6308 20 Jun, 2012 [facility] [address] [facility] [id number], [place] [address]- 0576 17 Jun, 2012 [facility] [id number], [place] [address]- 2483 10 Jun, 2012 [facility] [id number], [place] [address]- 6240 06 Jun, 2012 [facility] [id number], [place] [address]- 3726 06 Jun, 2012 [facility] [id number], [place] [address]- 9242 05 Jun, 2012 [facility] [id number], [place] [address]- 8007 03 Jun, 2012 [facility] [id number], [place] [address]- 5316 27 May, 2013 [facility] [id number], [place] [address]- 2351 May, [facility] [id number], [place] [address]- 8970 15 May, 2013 [facility] [id number], [place] [address]- 8225 14 May, 2013 [facility] [id number], [place] [address]- 5709 May, [facility] [address] [id number], [place] [address]- 8725 May, [facility] [id number], [place] [address]- 3713 May, [facility] [id number], [place] [address]- 3674 May, IMMUNIZATIONS Vaccine Route Administration Date Status PHENERGAN (IM) 12.5 MG (25 MG/ML) IM Intramuscular April 22, 2017 Administered SOCIAL HISTORY Never Assessed REASON FOR VISIT Sore throat/Congestion/cough x2 days. No known fever but feels hot. C/o of body aches -[place] Jj, Vomiting here in clinic. PLAN OF CARE Activity Details Follow Up prn [place]ato Reason: VITAL SIGNS Height 62 in 2017-04-22 Weight 335 lbs 2017-04-22 Temperature 98.8 degrees Fahrenheit 2017-04-22 Heart Rate 100 bpm 2017-04-22 Respiratory Rate 20 2017-04-22 BMI 61.27 kg/m2 2017-04-22 Blood pressure systolic 100 mmHg 2017-04-22 Blood pressure diastolic 60 mmHg 2017-04-22 MEDICATIONS Medication Instructions Dosage Frequency Start Date End Date Duration Status Ibuprofen 200 mg Orally 3 times a day 4 tablet as needed 8h Active Fenofibrate 160 MG TAKE ONE TABLET BY MOUTH ONCE DAILY WITH A MEAL 90 Active Atorvastatin Calcium 80 MG Orally Once a day 1 tablet 24h Aug, 90 days Active Excedrin Migraine 250-250-65 MG Orally as directed 2 tablets as needed Active Metformin HCl 1000 MG TAKE ONE TABLET BY MOUTH TWICE DAILY WITH MEALS 90 Active Nystatin 100,000 unit/gram apply to the affected area(s) by Topical route 4-8 times per day as needed Jun, Active Lisinopril 40 mg Orally Once a day 1 tablet 24h Jul, 90 days Active Hydrochlorothiazide 25 MG TAKE ONE TABLET BY MOUTH ONCE DAILY 90 Active Cromolyn Sodium 4 % Ophthalmic 2 times a day 2 drops into affected eye as needed 12h 18 Feb, 2017 Active Loratadine 10 mg Orally Once a day 1 tablet 24h Mar, Aug, 30 day(s) Active Promethazine HCl 25 MG Orally every 4 hours 1 tablet as needed 4h Jun, Active Sertraline HCl 50 mg Orally Once a day 1 tablet 24h 90 days Active Glucometer One Touch Ultra as directed Dec, Active Test strips One Touch Ultra as directed 6h Dec, Active Montelukast Sodium 10 MG TAKE ONE TABLET BY MOUTH ONCE DAILY IN THE EVENING 90 Active Levemir Flexpen 100 UNIT/ML subcutaneously 2 times a day 50 units 12h 90 days Active Albuterol Sulfate 90 mcg/actuation Inhalation every 4-6 hours as needed 2 puffs May, Active Multivitamin 1 Tablet 1 time per day May, Active Hydrocodone-Acetaminophen 5-325 MG Orally every 4- 6 hrs as needed 1 tablet February, Active Metoprolol Tartrate 50 MG TAKE ONE TABLET BY MOUTH TWICE DAILY WITH FOOD 90 Active Gabapentin 300 MG TAKE ONE CAPSULE BY MOUTH THREE TIMES DAILY 90 Active Cefdinir 300 MG Orally every 12 hrs 1 capsule 12h 29 Mar, 2017 Apr, 05 days Active NovoLog Flexpen 100 UNIT/ML Subcutaneous 3 times a day 30 units 8h 30 Active RESULTS No Results PROCEDURES Procedure Date Ordered Result Body Site PHENERGAN (IM) 12.5 MG (25 MG/ML) April 22, 2017 THER/PROPH/DIAG INJ, SC/IM April 22, 2017 INSTRUCTIONS MEDICATIONS ADMINISTERED No Known Medications [...]
--- OUTSIDE RECORDS SUMMARY | 2018-08-22 09:19 | XMS REPORT ---
Author Author LUDIVINASTEPHANIE FAIRCHILD Organization [facility] Address [address] [place] [address] Care Team Providers Care Chief Dietitian Name Role Phone FARNAZ FLORENCEY Unavailable PROBLEMS Type Condition ICD9-CM Code JER99-WE Code Onset Dates Condition Status SNOMED Code Problem Subclinical hypothyroidism E03.9 Active 53620119 Problem Hypertriglyceridemia E78.1 Active 519078981 Problem Type 2 diabetes mellitus with diabetic polyneuropathy E11.42 Active 421054109 Problem Status post amputation of toe of left foot Z89.422 Active 479870976 Problem Type 2 diabetes mellitus with diabetic chronic 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 Active 477552060 Problem Other chronic pain G89.29 Active 71528339 Problem Type 2 diabetes mellitus with other skin complications E11.628 Active 71501685 Problem Pain in left foot M79.672 Active 75586408 Problem Chronic prescription opiate use Z79.891 Active 945379027 Problem Pain in right foot M79.671 Active 51886988 Problem Seasonal allergic rhinitis due to pollen J30.1 Active 47125647 Problem Asthma exacerbation, mild J45.901 Active 847113365 Problem Chronic migraine G43.709 Active 94795910 Problem Moderate persistent asthma without complication J45.40 Active 817424957 Problem Irregular menstrual cycle N92.6 Active 45971652 Problem Severe episode of recurrent major depressive disorder, without psychotic features F33.2 Active 52301566 Problem Tonsillolith J35.8 Active 8322728 Problem Ulcer of right heel L97.419 Active 453488100 Problem Intrinsic eczema L20.84 Active 97215815 Problem Anxiety disorder, unspecified F41.9 Active 415256103 Problem Obesity E66.9 Active 221561559 Problem Chronic kidney disease, stage III (moderate) N18.3 Active 602279788 Problem Essential hypertension I10 Active 06893732 Problem History of amputation of hallux Z89.419 Active 872937506 Problem Type 2 diabetes mellitus with other specified complication E11.69 Active 458783152 Problem Type 2 diabetes mellitus with foot ulcer E11.621 Active 51662904 Problem DM neuro manif type II E11.49 Active 69270335 ALLERGIES Substance Reaction Event Type Date Status Penicillin V Potassium Unknown Drug Allergy Jul, Active ENCOUNTERS Encounter Location Date Diagnosis [facility] [id number] [place] [address] 06664- 1001 February, [facility] [address] [address] Jan, Asthma exacerbation, mild J45.901 ; Seasonal allergic rhinitis due to pollen J30.1 and BMI 60.0-69.9, adult Z68.44 [place] [address] 32513- 1588 Jan, [place] [address] 94330- 2198 Jan, Other chronic pain G89.29 [place] [address] 70369- 1503 30 Dec, 2017 Type 2 diabetes mellitus with diabetic polyneuropathy E11.42 [place] [address] 96060- 9175 19 Dec, 2017 Type 2 diabetes mellitus with diabetic polyneuropathy E11.42 [place] [id number] [place] [address] 61684- 1302 15 Dec, 2017 [place] [address] 44683- 7718 14 Dec, 2017 [place] [id number] [place] [address] 64247- 0795 13 Dec, 2017 Chronic kidney disease, stage III (moderate) N18.3 [facility] [id number] [place] [address] 17482 -8570 09 Dec, 2017 Nausea R11.0 and Diarrhea, unspecified type R19.7 [place] [address] 68587- 1482 Dec, Chronic kidney disease, stage III (moderate) N18.3 and Type 2 diabetes mellitus with diabetic polyneuropathy E11.42 [facility] [address] 58023- 3189 Dec, [place] [address] 07073- 8826 Nov, Ulcer of right heel L97.419 and Type 2 diabetes mellitus with diabetic polyneuropathy E11.42 [facility] [address] [id number] Nov, Dental examination Z01.20 [place] [address] 12940- 6915 Nov, Open wound of right foot, initial encounter S91.301A [facility] [address] 14[address]7294 Nov, Open wound of right foot, initial encounter S91.301A ; Non- intractable vomiting with nausea, unspecified vomiting type R11.2 and BMI 60.0- 69.9, adult Z68.44 [place] [address] 31628- 0304 Nov, [place] [address] 60050- 5289 Nov, Other chronic pain G89.29 [place] [address] 98393- 7906 Oct, Cellulitis of right lower limb L03.115 [place] [address] 45918- 0209 Oct, [place] [address] 43990- 2763 Oct, [place] [address] 00764- 4749 Oct, Cat scratch W55.03XA ; Cellulitis of right lower limb L03.115 ; Acute nasopharyngitis J00 ; BMI 60.0-69.9, adult Z68.44 and Cough R05 [address] 56508- 5371 Oct, Cat scratch W55.03XA ; Cutaneous abscess of right lower extremity L02.415 and Cellulitis of right lower limb L03.[address] 61611- 6267 Oct, Type 2 diabetes mellitus with diabetic polyneuropathy E11.[address] 35008- 3662 Oct, Other chronic pain G89.[address] 06588- 1056 Aug, [address] 16527- 0109 Jul, Other chronic pain G89.[address] 07105- 5782 Jul, [address] 54561- 1890 Jul, Chronic kidney disease, stage III (moderate) N18.[address] 73641- 4085 Jul, Type 2 diabetes mellitus with diabetic polyneuropathy E11.42 ; Essential hypertension I10 ; Irregular menstrual cycle N92.6 ; Hypertriglyceridemia E78.1 ; Anxiety disorder, unspecified F41.9 ; Severe episode of recurrent major depressive disorder, without psychotic features F33.2 ; Tonsillolith J35.8 ; Intrinsic eczema L20.84 ; Subclinical hypothyroidism E03.9 ; Viral pharyngitis J02.9 and Encounter for immunization Z23 [address] 59092- 4571 Jun, Essential hypertension I10 [id number] [place] [address] 29355- 6195 08 Jun, 2017 [facility] [id number] [place] [address] 42232- 1231 Jun, [facility] [id number] [place] [address] 61469- 4430 May, Moderate persistent asthma without complication J45.40 [place] [address] 22672- 1102 May, Pain in right foot M79.671 ; Pain in left foot M79.672 ; Other chronic pain G89.29 and Chronic prescription opiate use Z79.891 [place] [id number] [place] [address] 77343- 1089 May, [place] [id number] [place] [address] 07371- 1171 May, [facility] [id number] [place] [address] 32303- 2570 Apr, [facility] [id number] [place] [address] 58622- 6188 Apr, Chronic migraine G43.709 [place] [id number] [place] [address] 89632- 6142 Apr, Essential hypertension I10 ; Hypertriglyceridemia E78.1 and Chronic migraine G43.709 [place] [id number] [place] [address] 04045- 4262 Apr, [facility] [id number] [place] [address] 43792- 3678 Apr, Sore throat J02.9 [place] [address] 27066- 0191 Apr, [facility] [id number] [place] [address] 25741- 4534 Mar, Strep pharyngitis J02.0 and Non-intractable vomiting with nausea, unspecified vomiting type R11.2 [place] [address] [address] 8077 Mar, [place] [id number] [place] [address] 76155- 5632 Mar, [place] [id number] [place] [address] 08529- 7935 Mar, [place] [id number] [place] [address] 59901- 9082 Mar, Type 2 diabetes mellitus with diabetic polyneuropathy E11.42 ; Moderate persistent asthma without complication J45.40 ; Status post amputation of toe of left foot Z89.422 ; Acute seasonal allergic rhinitis, unspecified trigger J30.2 and Left shoulder pain, unspecified chronicity M25.512 [place] [id number] [place] [address] 21803- 3914 Mar, [place] [id number] [place] [address] 83847- 2874 February, Pre-op evaluation Z01.818 ; Type 2 diabetes mellitus with diabetic polyneuropathy E11.42 and Type 2 diabetes mellitus with foot ulcer E11.621 [place] [id number] [place] [address] 52110- 8734 February, [place] [address], [place] [address]- 7780 February, [place] [id number] [place] [address] 45454- 3857 February, Toe infection L08.9 and Type 2 diabetes mellitus with other specified complication E11.69 [place] [id number] [place] [address] 70387- 9120 February, [place] [address] [place] [address] 93331- 9681 Jan, Type 2 diabetes mellitus with diabetic polyneuropathy E11.42 [place] [id number] [place] [address] 34318- 5059 Jan, [place] [id number] [place] [address] 60938- 8380 Jan, Right upper quadrant pain R10.11 and Intractable vomiting with nausea, unspecified vomiting type R11.2 [place] [id number] [place] [address] 79358- 2296 10 Jan, 2017 Hypertriglyceridemia E78.1 and Essential hypertension I10 [place] [address] 78711- 6695 07 Jan, 2017 Essential hypertension I10 ; Type 2 diabetes mellitus with diabetic polyneuropathy E11.42 and Hypertriglyceridemia E78.1 [place] [address] 37974- 1353 16 Dec, 2016 Type 2 diabetes mellitus with diabetic polyneuropathy E11.42 [place] [address] 61003- 6306 15 Dec, 2016 Hypertriglyceridemia E78.1 ; Essential hypertension I10 ; Type 2 diabetes mellitus with diabetic polyneuropathy E11.42 ; Anxiety disorder , unspecified F41.9 and Moderate persistent asthma without complication J45.40 [place] [id number] [place] [address] 65805- 7218 Dec, Type 2 diabetes mellitus with diabetic polyneuropathy E11.42 [place] [id number] [place] [address] [id number] Dec, [place] [id number] [place] [address] 80953- 1175 Nov, [place] [id number] [place] [address] 95970- 2552 Nov, [place] [id number] [place] [address] 84314- 5626 Nov, [place] [id number] [place] [address] 74604- 6669 Nov, Toe infection L08.9 [facility] [address], [place] [address]- 3274 Nov, [facility] [id number] [place] [address] 89696- 6821 Oct, History of amputation of hallux Z89.419 [place] [id number] [place] [address] 83085- 6573 Oct, Type 2 diabetes mellitus with diabetic polyneuropathy E11.42 [facility] [id number] [place] [address] 48535- 3826 Oct, Type 2 diabetes mellitus with diabetic polyneuropathy E11.42 [place] [id number] [place] [address] 12970- 6940 Oct, Acute osteomyelitis of left foot M86.172 ; Pre-op exam Z01.818 and Type 2 diabetes mellitus with diabetic polyneuropathy E11.42 [place] [address] [place] [address] 64474- 8764 Oct, Foot ulcer, left, with unspecified severity L97.529 ; Acute osteomyelitis of left foot M86.172 and Type 2 diabetes mellitus with diabetic polyneuropathy E11.42 [place] [address], [place] [address]- 9939 Sep, [place] [address] [place] [address] 91462- 9446 Sep, Intractable vomiting with nausea, unspecified vomiting type R11.2 and Right upper quadrant pain R10.11 [facility] [address], [place] [address]- 5093 Aug, [place] [id number] [place] [address] 54189- 9625 Jul, [place] [address], [place] [address]- 6779 Jul, Preop examination Z01.818 [place] [address], [place] [address]- 6364 Jul, [facility] [id number] [place] [address] 39643- 7840 Jul, [facility] [id number] [place] [address] 16291- 8174 Jul, Chronic osteomyelitis of left foot M86.672 and Ulcer of left foot, with unspecified severity L97.529 [facility] [id number] [place] [address] 75801- 3425 Jul, Non-pressure chronic ulcer of other part of left foot with unspecified severity L97.529 [facility] [id number] [place] [address] 67922- 4132 Jul, [facility] [id number] [place] [address] 88569- 3132 Jul, [facility] [id number] [place] [address] 26094- 5735 Jun, [facility] [id number] [place] [address] 44514- 1585 27 Jun, 2016 [facility] [address] [place] [address] 29952- 6568 Jun, [facility] [address] [place] [address] 06916- 6182 Jun, Right upper quadrant pain R10.11 [facility] [address], [place] [address]- 1408 20 Jun, 2016 [facility] [id number] [place] [address] 43193- 5661 19 Jun, 2016 Intractable vomiting with nausea, unspecified vomiting type R11.2 [facility] [address], [place] [address]- 9571 13 Jun, 2016 Right upper quadrant pain R10.11 ; Migraine with aura and with status migrainosus, not intractable G43.101 and Intractable vomiting with nausea, unspecified vomiting type R11.2 [place] [id number] [place] [address] 08563- 6192 Jun, [place] [id number] [place] [address] 56359- 2719 Jun, Gastroenteritis K52.9 [place] [id number] [place] [address] 02717- 8359 May, [place] [address] 77230- 3804 May, Hypertriglyceridemia E78.1 ; Essential hypertension I10 ; Type 2 diabetes mellitus with diabetic polyneuropathy E11.42 ; Moderate persistent asthma without complication J45.40 ; Type 2 diabetes mellitus with foot ulcer E11.621 ; Other chronic pain G89.29 ; Pain in right leg M79.604 ; Pain of left leg M79.605 ; Rash and nonspecific skin eruption R21 and Anxiety disorder, unspecified F41.9 [place] [id number] [place] [address] 60169- 1752 May, Essential hypertension I10 ; Hypertriglyceridemia E78.1 ; Upper respiratory infection J06.9 ; Subclinical hypothyroidism E03.9 and Type 2 diabetes mellitus with diabetic polyneuropathy E11.42 [place] [id number] [place] [address] 84502- 8882 Apr, Hypertriglyceridemia E78.1 ; Subclinical hypothyroidism E03.9 ; Essential hypertension I10 and Type 2 diabetes mellitus with diabetic polyneuropathy E11.42 [place] [id number] [place] [address] 45476- 8675 Mar, [place] [address] 81872- 5636 Mar, Ulcer of right heel L97.419 [id number] [place] [address] 97277- 2978 Mar, [place] [address] 98475- 9080 Mar, [place] [id number] [place] [address] 85166- 1025 February, [place] [id number] [place] [address] 80350- 8355 February, Ulcer of right heel L97.419 and DM neuro manif type II E11.49 [place] [id number] [place] [address] 56750- 7730 Jan, [place] [id number] [place] [address] 60372- 7446 Jan, Ulcer of right heel L97.419 ; Type 2 diabetes mellitus with foot ulcer E11.621 and Non-pressure chronic ulcer of other part of left foot with unspecified severity L97.529 [place] [id number] [place] [address] 25116- 7427 Jan, [place] [id number] [place] [address] 19829- 6575 Jan, [place] [id number] [place] [address] 15845- 3420 Jan, Infection of toenail L03.039 [place] [id number] [place] [address] 89132- 8334 Jan, Blister of toe of left foot, initial encounter S90.425A and Type 2 diabetes mellitus with diabetic polyneuropathy E11.42 [place] [id number] [place] [address] 07559- 7122 Jan, [facility] [address] [place] [address] 14215 -7351 Jan, Sore throat J02.9 and Strep pharyngitis J02.0 [place] [address] [place] [address] 15432- 6943 Dec, Type 2 diabetes mellitus with diabetic polyneuropathy E11.42 ; Upper respiratory infection J06.9 ; Cough R05 and Asthma exacerbation J45.901 [facility] [address] [place] [address] 56626- 9927 Oct, [facility] [id number] [place] [address] 37349- 2701 Oct, [facility] [id number] [place] [address] 09934- 1949 Oct, [facility] [address] 99906- 5292 Oct, [facility] [id number] [place] [address] 31604- 1078 Sep, [facility] [id number] [place] [address] 80642- 8645 Aug, Anxiety disorder, unspecified F41.9 and Obesity E66.9 [facility] [address] 96063- 2720 Aug, Moderate persistent asthma without complication J45.40 [facility] [id number] [place] [address] 81920- 4222 Aug, Anxiety disorder, unspecified F41.9 [facility] [id number] [place] [address] 96712- 8122 Aug, Chronic migraine G43.709 ; Encounter for immunization Z23 ; Hypertriglyceridemia E78.1 ; Type 2 diabetes mellitus with diabetic polyneuropathy E11.42 ; Moderate persistent asthma without complication J45.40 and Morbid obesity E66.01 [facility] [id number] [place] [address] 38315- 8249 Jul, [facility] [id number] [place] [address] 04917- 5070 Jul, [facility] [id number] [place] [address] 53572- 8967 Jul, [facility] [id number] [place] [address] 45414- 1217 Jul, Subclinical hypothyroidism E03.9 [facility] [address], [place] [address]- 6389 Jun, Essential hypertension, benign 401.1 ; Diabetic ulcer of lower extremity 250.80 ; Asthma 493.90 ; Diabetes mellitus type II, uncontrolled 250.02 and Hyperlipidemia associated with type 2 diabetes mellitus 250.80 [facility] [id number] [place] [address] 20078- 3061 Jun, [facility] [id number] [place] [address] 79729- 7646 Jun, [facility] [id number] [place] [address] 91676- 6097 May, [facility] [id number] [place] [address] 60659- 9508 Apr, [facility] [id number] [place] [address] 01491- 9350 Apr, Viral upper respiratory infection 465.9 and Asthma 493.90 [facility] [id number] [place] [address] 33049- 9869 Mar, Abnormal ankle brachial index 796.4 [facility] [id number] [place] [address] 43770- 7764 February, [facility] [address] [place] [address] 82221- 0649 February, Essential hypertension, benign 401.1 [facility] [id number] [place] [address] 63390- 4925 February, Diabetic peripheral neuropathy 250.60 ; Ulcer of heel and midfoot 707.14 and Decreased pedal pulses 785.9 [facility] [address], [place] [address]- 1392 February, [facility] [address], [place] [address]- 0400 February, [facility] [address] [place] [address]- 4830 14 Jan, 2015 [facility] [place] [facility] [address] [id number] [place] [address]- 0023 Jan, [facility] [place] [facility] [address] [id number] [place] [address]- 2077 Dec, [facility] [place] [facility] [address] [id number] [place] [address]- 3595 Dec, [facility] [place] [facility] [address] [id number] [place] [address]- 4140 Nov, [facility] [place] [facility] [address] [id number] [place] 9816 Nov, [facility] [place] [facility] [address] [facility] [id number] [place] [address]- 3086 24 Nov, 2014 [facility] [place] [facility] [address] [id number] [place] [address]- 5432 Nov, [facility] [place] [facility] [address] [id number] [place] [address]- 5761 18 Nov, 2014 [facility] [place] [facility] [address] [facility] [id number] [place] [address]- 4414 Nov, [facility] [place] [facility] [address] [facility] [id number] [place] [address]- 8475 Nov, [facility] [place] [facility] [address] [id number], [place] [address]- 2452 Nov, [facility] [place] [facility] [address] [id number] [place] [address]- 0481 Nov, [facility] [place] [facility] [address] [id number] [place] [address]- 8758 Oct, [facility] [place] [facility] [address] [id number] [place] [address]- 7024 Oct, [facility] [place] [facility] [address] [facility] [id number] [place] [address]- 0542 Oct, [facility] [address] [id number] [place] [address]- 9435 Oct, [facility] [place] [facility] [address] [id number] [place] [address]- 3915 Oct, [facility] [place] [facility] [address] [id number] [place] [address] Oct, [facility] [place] [facility] [address] [id number] [place] [address] Oct, [facility] [place] [facility] [address] [id number] [place] [address] Oct, [facility] [place] [facility] [address] [id number] [place] [address] Oct, [facility] [place] [facility] [address] [id number] [place] [address] Oct, [facility] [place] [facility] [address] [id number] [place] [address] Oct, [facility] [place] [facility] [address] [id number] [place] [address] Oct, [facility] [place] [facility] [address] [id number] [place] [address] Oct, [facility] [place] [facility] [address] [id number] [place] [address] Sep, [facility] [place] [facility] [address] [id number] [place] [address] Sep, [facility] [place] [facility] [address] [id number] [place] [address] Sep, [facility] [place] [facility] [address] [id number] [place] [address] Sep, [facility] [place] [facility] [address] [id number] [place] [address] Sep, [facility] [place] [facility] [address] [id number] [place] [address] Sep, [facility] [address] [id number] [place] [address] Sep, [facility] [place] [facility] [address] [address] [id number] [place] [address] Sep, [facility] [place] [facility] [address] [id number] [place] [address] Sep, [facility] [place] [facility] [address] [id number] [place] [address] 44[address] Sep, [facility] [place] [facility] [address] [id number] [place] [address] Sep, [facility] [place] [facility] [address] [id number] [place] [address] 86[address] Sep, [facility] [place] [facility] [address] [id number] [place] [address]26 Sep, [facility] [address] [id number] [place] [address] 2427 Sep, [facility] [place] [facility] [address] [id number] [place] [address] Sep, [facility] [place] [facility] [address] [id number] [place] [address] Sep, [facility] [place] [facility] [address] [id number] [place] [address] Aug, [facility] [place] [facility] [address] [id number] [place] [address] 5[address] Aug, [facility] [place] [facility] [address] [id number] [place] [address] 2283 Aug, [facility] [place] [facility] [address] [id number] [place] [address] 8991 Aug, [facility] [place] [facility] [address] [id number] [place] [address] 1729 Aug, [facility] [place] [facility] [address] [id number] [place] [address] 4577 Aug, [facility] [place] [facility] [address] [id number] [place] [address] 2146 Aug, [facility] [place] [facility] [address] [id number] [place] [address]- 7956 Aug, [facility] [place] [facility] [address] [id number] [place] [address] 8770 Jul, [facility] [place] [facility] [address] [id number] [place] [address] 9500 Jul, [facility] [place] [facility] [address] [id number] [place] [address] 5538 Jul, [facility] [place] [facility] [address] [id number] [place] [address]- 4532 Jul, [facility] [place] [facility] [address] [id number] [place] [address] 0760 Jul, [facility] [place] [facility] [address] [id number] [place] [address] 5689 Jun, [facility] [place] [facility] [address] [id number] [place] [address]- 4011 Jun, [facility] [place] [facility] [address] [id number] [place] [address]- 4646 Jun, [facility] [place] [facility] [address] [id number] [place] [address]- 9299 Jun, [facility] [place] [facility] [address] [id number] [place] [address] 8132 Jun, [facility] [place] [facility] [address] [id number] [place] [address]- 6286 May, [facility] [place] [facility] [address] [id number] [place] [address]- 7042 May, [facility] [place] [facility] [address] [id number] [place] [address] 4355 Apr, [facility] [place] [facility] [address] [id number] [place] [address] 5181 Apr, [facility] [place] [facility] [address] [id number] [place] [address] 6509 Apr, [facility] [place] [facility] [address] [id number] [place] [address] 6216 Apr, [facility] [place] [facility] [address] [id number] [place] [address] 3566 Apr, [facility] [place] [facility] [address] [id number] [place] [address] 0464 Apr, [facility] [place] [facility] [address] [id number] [place] [address] 8924 Mar, [facility] [place] [facility] [address] [id number] [place] [address] 2090 Mar, [facility] [place] [facility] [address] [id number] [place] [address] 0558 Mar, [facility] [place] [facility] [address] [id number] [place] [address] 0025 Mar, [facility] [place] [facility] [address] [id number] [place] [address]- 0705 Mar, [facility] [place] [facility] [address] [id number] [place] [address]- 5523 Mar, [facility] [place] [facility] [address] [id number] [place] [address] 6120 Mar, [facility] [place] [facility] [address] [id number] [place] [address] 9908 Mar, [facility] [place] [facility] [address] [id number] [place] [address] 9889 Mar, [facility] [place] [facility] [address] [id number] [place] [address] 2282 Mar, [facility] [place] [facility] [address] [id number] [place] [address]- 8091 Mar, [facility] [place] [facility] [address] [id number] [place] [address]- 4035 Mar, [facility] [place] [facility] [address] [id number] [place] [address] 395[address] Mar, [facility] [place] [facility] [address] [id number] [place] [address] 1356 Mar, [facility] [place] [facility] [address] [id number] [place] [address]- 5826 Mar, [facility] [place] [facility] [address] [id number] [place] [address] 2880 Mar, [facility] [place] [facility] [address] [id number] [place] [address] 5367 February, [facility] [place] [facility] [address] [id number] [place] [address] 2462 February, [facility] [place] [facility] [address] [id number] [place] [address] 8029 February, [facility] [place] [facility] [address] [id number] [place] [address]- 8372 February, [facility] [place] [facility] [address] [id number] [place] [address]- 3762 February, [facility] [place] [facility] [address] [id number] [place] [address] 6419 February, [facility] [place] [facility] [address] [id number] [place] [address]- 7280 February, [facility] [place] [facility] [address] [id number] [place] [address]- 1535 February, [facility] [place] [facility] [address] [id number] [place] [address]- 5011 Jan, [facility] [place] [facility] [address] [id number] [place] [address]- 2529 Jan, [facility] [place] [facility] [address] [id number] [place] [address]- 2233 Dec, [facility] [place] [facility] [address] [id number] [place] [address]- 8716 Dec, [facility] [place] [facility] [address] [id number] [place] [address]- 9599 Dec, [facility] [place] [facility] [address] [id number] [place] [address] 3904 Dec, [facility] [place] [facility] [address] [id number] [place] [address]- 6934 Dec, [facility] [place] [facility] [address] [id number] [place] [address]- 0015 Dec, [facility] [place] [facility] [address] [id number] [place] [address]- 2617 Dec, [facility] [place] [facility] [address] [id number] [place] [address]- 7294 19 Dec, 2013 [facility] [place] [facility] [address] [id number] [place] [address]- 7586 17 Dec, 2013 [facility] [place] [facility] [address] [id number] [place] [address]- 8351 17 Dec, 2013 [facility] [place] [facility] [address] [id number] [place] [address]- 6027 14 Dec, 2013 [facility] [place] [facility] [address] [id number] [place] [address]- 0497 14 Dec, 2013 [facility] [place] [facility] [address] [id number] [place] [address]- 7669 Dec, [facility] [place] [facility] [address] [id number] [place] [address]- 9723 Dec, [facility] [place] [facility] [address] [id number] [place] [address]- 4744 Nov, [facility] [place] [facility] [address] [id number] [place] [address]- 4364 Nov, [facility] [address] [id number] [place] [address]- 4489 Oct, [facility] [address] [id number] [place] [address]- 8212 Oct, [facility] [address] [id number] [place] [address]- 8273 Oct, [facility] [address] [id number] [place] [address]- 8959 Oct, [facility] [address] [id number] [place] [address]- 9566 Oct, [facility] [address] [id number] [place] [address]- 1382 Oct, [facility] [address] [id number] [place] [address]- 4071 Oct, [facility] [address] [id number] [place] [address]- 7598 Sep, [facility] [address] [id number] [place] [address]- 7840 Sep, [facility] [address] [id number] [place] [address]- 4873 Sep, [facility] [address] [id number] [place] [address]- 5320 Sep, [facility] [address] [id number] [place] [address]- 8030 Sep, [facility] [address] [id number] [place] [address]- 7108 Sep, [facility] [address] [id number] [place] [address]- 5616 Sep, [facility] [address] [id number] [place] [address]- 5075 Sep, [facility] [address] [id number] [place] [address]- 4183 Sep, [facility] [place] [facility] [address] [id number] [place] [address]- 5066 Sep, [facility] [place] [facility] [address] [id number] [place] [address]- 5506 Sep, [facility] [place] [facility] [address] [id number] [place] [address]- 8076 Sep, [facility] [place] [facility] [address] [id number] [place] [address]- 2930 Sep, [facility] [place] [facility] [address] [id number] [place] [address]- 9054 Sep, [facility] [place] [facility] [address] [id number] [place] [address]- 1703 Sep, [facility] [place] [facility] [address] [id number] [place] [address]- 7707 Sep, [facility] [place] [facility] [address] [id number] [place] [address]- 8973 Sep, [facility] [place] [facility] [address] [id number] [place] [address]- 4630 Sep, [facility] [place] [facility] [address] [id number] [place] [address]- 5849 Sep, [facility] [place] [facility] [address] [id number], [place] [address]- 7423 Aug, [facility] [place] [facility] [address] [id number] [place] [address]- 2551 Aug, [facility] [place] [facility] [address] [id number] [place] [address]- 6997 Aug, [facility] [place] [facility] [address] [id number], [place] [address]- 1609 Aug, [facility] [place] [facility] [address] [id number], [place] [address]- 7534 Aug, [facility] [place] [facility] [address] [id number] [place] [address]- 7833 Aug, [facility] [place] [facility] [address] [id number] [place] [address]- 2031 Aug, [facility] [place] [facility] [address] [facility] [id number] [place] [address]- 1965 Aug, [facility] [place] [facility] [address] [id number] [place] [address]- 4854 Aug, [facility] [place] [facility] [address] [id number] [place] [address]- 0581 Aug, [facility] [place] [facility] [address] [id number] [place] [address]- 5233 Aug, [facility] [place] [facility] [address] [facility] [id number], [place] [address]- 0401 Aug, [facility] [place] [facility] [address] [id number] [place] [address]- 4143 Aug, [facility] [place] [facility] [address] [facility] [id number], [place] [address]- 4176 Aug, [facility] [place] [facility] [address] [facility] [id number], [place] [address]- 7923 Aug, [facility] [place] [facility] [address] [facility] [id number], [place] [address]- 2388 Aug, [facility] [place] [facility] [address] [id number], [place] [address]- 1902 Aug, [facility] [place] [facility] [address] [id number], [place] [address]- 2893 Jul, [facility] [place] [facility] [address] [facility] [id number], [place] [address]- 0637 Jul, [facility] [place] [facility] [address] [facility] [id number], [place] [address]- 4857 Jul, [facility] [place] [facility] [address] [id number] [place] [address]- 7525 30 Jul, 2012 [facility] [place] [facility] [address] [id number] [place] [address]- 1599 18 Jul, 2012 [facility] [place] [facility] [address] [id number] [place] [address]- 9686 18 Jul, 2013 [facility] [place] [facility] [address] [id number] [place] [address]- 8191 Jul, 2012 [facility] [place] [facility] [address] [id number] [place] [address]- 8880 27 Jun, 2012 [facility] [place] [facility] [address] [id number] [place] [address]- 3866 20 Jun, 2012 [facility] [place] [facility] [address] [id number] [place] [address]- 1508 17 Jun, 2012 [facility] [place] [facility] [address] [id number] [place] [address]- 7608 10 Jun, 2012 [facility] [place] [facility] [address] [id number] [place] [address] 2542 06 Jun, 2012 [facility] [place] [facility] [address] [id number] [place] [address] 2545 06 Jun, 2012 [facility] [place] [facility] [address] [id number] [place] [address]- 9975 05 Jun, 2012 [facility] [place] [facility] [address] [id number] [place] [address]- 2543 03 Jun, 2012 [facility] [place] [facility] [address] [id number] [place] [address] 2549 27 May, 2012 [facility] [place] [facility] [address] [id number] [place] [address]- 4450 22 May, 2013 [facility] [place] [facility] [address] [id number] [place] [address]- 1129 15 May, 2013 [facility] [place] [facility] [address] [id number] [place] [address]- 6805 May, [facility] [address] [facility] [id number], [place] [address]- 8436 May, [facility] [address] [facility] [id number], [place] [address]- 4856 May, [facility] [address] [facility] [id number], [place] [address] 2546 May, [facility] [address] [facility] [id number], [place] [address]- 4[address] May, IMMUNIZATIONS Vaccine Route Administration Date Status FLUARIX QUAD (3 AND UP) 2016 IM Intramuscular Jul 28, 2017 Administered SOCIAL HISTORY Never Assessed REASON FOR VISIT DM FU--tcuppettRN, -Sore throat, runny nose, congestion, and body aches. PLAN OF CARE Activity Details Follow Up 3 Months Reason:DMII VITAL SIGNS Height 62 in 2017-07-28 Weight 339.5 lbs 2017-07-28 Temperature 98.0 degrees Fahrenheit 2017-07-28 Heart Rate 88 bpm 2017-07-28 Respiratory Rate 20 2017-07-28 BMI 62.09 kg/m2 2017-07-28 Blood pressure systolic 130 mmHg 2017-07-28 Blood pressure diastolic 84 mmHg 2017-07-28 MEDICATIONS Medication Instructions Dosage Frequency Start Date End Date Duration Status Triamcinolone Acetonide 0.1 % Externally Twice a day 1 application to affected area 12h Jul, 14 days Active Fenofibrate 160 MG TAKE ONE TABLET BY MOUTH ONCE DAILY WITH A MEAL Active Lisinopril 40 mg Orally Once a day 1 tablet 24h Jul, Active NovoLog Flexpen 100 UNIT/ML Subcutaneous 3 times a day 30 units 8h Active Albuterol Sulfate 90 mcg/actuation Inhalation every 4-6 hours as needed 2 puffs May, Active Levemir Flexpen 100 UNIT/ML subcutaneously 2 times a day 50 units 12h Active Nystatin 044914 unit/gm apply to the affected area(s) by Topical route 4- 8 times per day as needed Jun, Active Atorvastatin Calcium 80 MG Orally Once a day 1 tablet 24h Aug, Active Cromolyn Sodium 4 % Ophthalmic 2 times a day 2 drops into affected eye as needed 12h February, Active Metoprolol Tartrate 50 MG TAKE ONE TABLET BY MOUTH TWICE DAILY WITH FOOD Active Multivitamin 1 Tablet 1 time per day May, Active Sertraline HCl 100 MG Orally Once a day 1 tablet 24h 90 days Active Rizatriptan Benzoate 10 mg Orally PRN 1 tablet as needed at onset of headache , may repeat in 2 hours x 2 if needed Apr, Active Hydrocodone-Acetaminophen 5-325 MG Orally every 4- 6 hrs as needed 1 tablet May, Active Hydrochlorothiazide 25 MG TAKE ONE TABLET BY MOUTH ONCE DAILY Active Loratadine 10 mg Orally Once a day 1 tablet 24h Mar, Aug, 30 day(s) Active Gabapentin 300 MG TAKE ONE CAPSULE BY MOUTH THREE TIMES DAILY Active Metformin HCl 1000 MG TAKE ONE TABLET BY MOUTH TWICE DAILY WITH MEALS Active Promethazine HCl 25 MG Orally every 4 hours 1 tablet as needed 4h Jun, Active Montelukast Sodium 10 MG TAKE ONE TABLET BY MOUTH ONCE DAILY IN THE EVENING 90 Active Excedrin Migraine 250-250-65 MG Orally as directed 2 tablets as needed Active Glucometer One Touch Ultra as directed Dec, Active Test strips One Touch Ultra as directed 6h Dec, Active Pulmicort Flexhaler 90 MCG/ACT Inhalation Twice a day 1 puff 12h Jun, Active RESULTS Name Result Date Reference Range A1C (IN HOUSE) 2017-07-28 A1C IN HOUSE 6.5 4.3 - 5.6 % Previous A1c 5.6 Lot 0726 Exp date 01/2019 TSH 2017-07-28 TSH 3.020 0.450-4.500 CBC 2017-07-28 WBC 8.8 3.4-10.8 RBC 4.43 3.77-5.28 Hemoglobin 13.1 11.1-15.9 Hematocrit 39.1 34.0-46.6 MCV 88 79-97 MCH 29.6 26.6-33.0 MCHC 33.5 31.5-35.7 RDW 13.7 12.3-15.4 Platelets 380 150-379 Neutrophils 66 Not Estab. Lymphs 24 Not Estab. Monocytes 6 Not Estab. Eos 3 Not Estab. Basos 1 Not Estab. Neutrophils (Absolute) 5.8 1.4-7.0 Lymphs (Absolute) 2.1 0.7-3.1 Monocytes(Absolute) 0.5 0.1-0.9 Eos (Absolute) 0.3 0.0-0.4 Baso (Absolute) 0.1 0.0-0.2 Immature Granulocytes 0 Not Estab. Immature Grans (Abs) 0.0 0.0-0.1 LIPID PANEL 2017-07-28 Cholesterol, Total 176 100-199 Triglycerides 294 0-149 HDL Cholesterol 34 >39 VLDL Cholesterol Shahbaz 59 5-40 LDL Cholesterol Calc 83 0-99 Comment: CMP 2017-07-28 Glucose, Serum 139 65-99 BUN 32 6-24 Creatinine, Serum 1.17 0.57-1.00 eGFR If NonAfricn Am 57 >59 eGFR If Africn Am 66 >59 BUN/Creatinine Ratio 27 9-23 Sodium, Serum 139 134-144 Potassium, Serum 5.2 3.5-5.2 Chloride, Serum 100 96-106 Carbon Dioxide, Total 19 18-29 Calcium, Serum 8.8 8.7-10.2 Protein, Total, Serum 7.9 6.0-8.5 Albumin, Serum 4.1 3.5-5.5 Globulin, Total 3.8 1.5-4.5 A/G Ratio 1.1 1.2-2.2 Bilirubin, Total 0.3 0.0-1.2 Alkaline Phosphatase, S 52 39-117 AST (SGOT) 16 0-40 ALT (SGPT) 20 0-32 PROCEDURES Procedure Date Ordered Result Body Site GLYCATED HEMOGLOBIN TEST Jul 28, 2017 VENIPUNCT, ROUTINE* Jul 28, 2017 LAB NOT BILLED BY [facility] Jul 28, 2017 SINGLE IMMUNIZATION ADMIN Jul 28, 2017 FLUARIX QUAD (3 & UP)-[id number] 28, 2017 INSTRUCTIONS MEDICATIONS ADMINISTERED No Known Medications [...] History Left foot cellulitis, left 2nd toe amputation-[facility] 12/23 Hospitalization History Surgery Hospitalizations
--- OUTSIDE RECORDS SUMMARY | 2018-08-22 09:20 | XMS REPORT ---
Author Author LUDIVINA STEPHANIE [facility] Address [address] [place] [address] Care Team Providers Care Production Statistical Clerk Name Role Phone FARNAZ FLORENCEY Unavailable PROBLEMS Type Condition ICD9-CM Code EGR57-GM Code Onset Dates Condition Status SNOMED Code Problem Subclinical hypothyroidism E03.9 Active 87798598 Problem Hypertriglyceridemia E78.1 Active 878432454 Problem Type 2 diabetes mellitus with diabetic polyneuropathy E11.42 Active 422882514 Problem Type 2 diabetes mellitus with diabetic chronic 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 Active 068132160 Problem Other chronic pain G89.29 Active 60064239 Problem Type 2 diabetes mellitus with other skin complications E11.628 Active 82447746 Problem Pain in left foot M79.672 Active 89070135 Problem Irregular menstrual cycle N92.6 Active 22031861 Problem Pain in right foot M79.671 Active 57655098 Problem Tonsillolith J35.8 Active 0733634 Problem Chronic prescription opiate use Z79.891 Active 717017314 Problem Seasonal allergic rhinitis due to pollen J30.1 Active 98888052 Problem Asthma exacerbation, mild J45.901 Active 797785656 Problem Chronic kidney disease, stage III (moderate) N18.3 Active 235031716 Problem Chronic migraine G43.709 Active 19580338 Problem Moderate persistent asthma without complication J45.40 Active 488454386 Problem Intrinsic eczema L20.84 Active 99617083 Problem Severe episode of recurrent major depressive disorder, without psychotic features F33.2 Active 70103886 Problem Non-pressure chronic ulcer of right heel and midfoot limited to breakdown of skin L97.411 Active 893933458 Problem Ulcer of right heel L97.419 Active 760165096 Problem Obesity E66.9 Active 957288652 Problem Type 2 diabetes mellitus with foot ulcer E11.621 Active 92478629 Problem Essential hypertension I10 Active 08641057 Problem Anxiety disorder, unspecified F41.9 Active 843554999 Problem Type 2 diabetes mellitus with other specified complication E11.69 Active 072516190 Problem Status post amputation of toe of left foot Z89.422 Active 901490213 Problem DM neuro manif type II E11.49 Active 59814091 Problem History of amputation of hallux Z89.419 Active 310826001 ALLERGIES No Information ENCOUNTERS Encounter Location Date Diagnosis [facility] [address] [address]- [address] 12 Mar, 2018 Moderate persistent asthma without complication J45.40 [facility] [address] 42618- 5730 07 Mar, 2018 Moderate persistent asthma without complication J45.40 [facility] [address] 17217- 8607 Mar, [facility] [address] 84322- 3589 February, Chronic migraine G43.709 [facility] [address] 72907- 3261 February, Chronic migraine G43.709 [facility] [address] 22892- 0306 February, [facility] [address] 41527- 2407 February, [facility] [address] 37557- 5073 February, Type 2 diabetes mellitus with diabetic polyneuropathy E11.42 ; Moderate persistent asthma without complication J45.40 ; Type 2 diabetes mellitus with foot ulcer E11.621 ; Non-pressure chronic ulcer of right heel and midfoot limited to breakdown of skin L97.411 ; Chronic migraine G43.709 and BMI 60.0-69.9, adult Z68.44 [facility] [id number] [place] [address] 68977 -6958 Jan, 2018 Asthma exacerbation, mild J45.901 ; Seasonal allergic rhinitis due to pollen J30.1 and BMI 60.0-69.9, adult Z68.44 [facility] [id number] [place] [address] 85773- 8569 Jan, [place] [address] 88389- 5672 Jan, Other chronic pain G89.29 [facility] [id number] [place] [address] 03101- 9999 30 Dec, 2017 Type 2 diabetes mellitus with diabetic polyneuropathy E11.42 [facility] [id number] [place] [address] 77389- 6516 Dec, Type 2 diabetes mellitus with diabetic polyneuropathy E11.42 [facility] [address] 66048- 2825 15 Dec, 2017 [place] [address] 61466- 6221 14 Dec, 2017 [facility] [id number] [place] [address] 37286- 7929 13 Dec, 2017 Chronic kidney disease, stage III (moderate) N18.3 [facility] [id number] [place] [address] 13711 -7472 09 Dec, 2017 Nausea R11.0 and Diarrhea, unspecified type R19.7 [facility] [id number] [place] [address] 93459- 0229 07 Dec, 2017 Chronic kidney disease, stage III (moderate) N18.3 and Type 2 diabetes mellitus with diabetic polyneuropathy E11.42 [facility] [id number] [place] [address] 01468- 3086 Dec, [place] [address] 47809- 2612 Nov, Ulcer of right heel L97.419 and Type 2 diabetes mellitus with diabetic polyneuropathy E11.42 [facility] [address] [place] [address] [id number] Nov, Dental examination Z01.20 [facility] [address] [place] [address] 03443- 9205 Nov, Open wound of right foot, initial encounter S91.301A [facility] [id number] [place] [address] 95130 -4827 Nov, Open wound of right foot, initial encounter S91.301A ; Non- intractable vomiting with nausea, unspecified vomiting type R11.2 and BMI 60.0- 69.9, adult Z68.44 [facility] [id number] [place] [address] 89534- 6798 Nov, [place] [address] 54705- 3536 Nov, Other chronic pain G89.29 [place] [address] 21367- 7724 Oct, Cellulitis of right lower limb L03.115 [facility] [id number] [place] [address] 28614- 8403 Oct, [place] [address] 98325- 8359 Oct, [facility] [id number] [place] [address] 03906- 9954 Oct, Cat scratch W55.03XA ; Cellulitis of right lower limb L03.115 ; Acute nasopharyngitis J00 ; BMI 60.0-69.9, adult Z68.44 and Cough R05 [facility] [id number] [place] [address] 57472- 1506 Oct, Cat scratch W55.03XA ; Cutaneous abscess of right lower extremity L02.415 and Cellulitis of right lower limb L03.115 [facility] [id number] [place] [address] 11373- 3650 Oct, Type 2 diabetes mellitus with diabetic polyneuropathy E11.42 [facility] [address] [place] [address] 3486 Oct, Other chronic pain G89.29 [facility] [id number] [place] [address] 60882- 3127 Aug, [facility] [id number] [place] [address] 85384- 8098 Jul, Other chronic pain G89.29 [facility] [address] 07363- 3483 Jul, [place] [address] 34325- 0891 Jul, Chronic kidney disease, stage III (moderate) N18.3 [facility] [address] 77876- 4170 Jul, Type 2 diabetes mellitus with diabetic polyneuropathy E11.42 ; Essential hypertension I10 ; Irregular menstrual cycle N92.6 ; Hypertriglyceridemia E78.1 ; Anxiety disorder, unspecified F41.9 ; Severe episode of recurrent major depressive disorder, without psychotic features F33.2 ; Tonsillolith J35.8 ; Intrinsic eczema L20.84 ; Subclinical hypothyroidism E03.9 ; Viral pharyngitis J02.9 and Encounter for immunization Z23 [facility] [id number] [place] [address] 81187- 3123 13 Jun, 2017 Essential hypertension I10 [facility] [id number] [place] [address] 93207- 7112 08 Jun, 2017 [facility] [id number] [place] [address] 60709- 6036 Jun, [facility] [id number] [place] [address] 34908- 2991 May, Moderate persistent asthma without complication J45.40 [facility] [id number] [place] [address] 64318- 7179 May, Pain in right foot M79.671 ; Pain in left foot M79.672 ; Other chronic pain G89.29 and Chronic prescription opiate use Z79.891 [facility] [id number] [place] [address] 76178- 3818 May, [facility] [id number] [place] [address] 16248- 0419 May, [facility] [id number] [place] [address] 23120- 0718 Apr, [facility] [id number] [place] [address] 18674- 1414 Apr, Chronic migraine G43.709 [facility] [address] 07128- 6474 Apr, Essential hypertension I10 ; Hypertriglyceridemia E78.1 and Chronic migraine G43.709 [facility] [id number] [place] [address] 42710- 8517 Apr, [facility] [id number] [place] [address] 56280- 9603 Apr, Sore throat J02.9 [facility] [id number] [place] [address] 87207- 1089 Apr, [facility] [id number] [place] [address] 86409- 7619 Mar, Strep pharyngitis J02.0 and Non-intractable vomiting with nausea, unspecified vomiting type R11.2 [facility] [id number] [place] [address] 34048- 9439 Mar, [facility] [id number] [place] [address] 70686- 7512 Mar, [facility] [id number] [place] [address] 63262- 1720 Mar, [facility] [id number] [place] [address] 93765- 3644 Mar, Type 2 diabetes mellitus with diabetic polyneuropathy E11.42 ; Moderate persistent asthma without complication J45.40 ; Status post amputation of toe of left foot Z89.422 ; Acute seasonal allergic rhinitis, unspecified trigger J30.2 and Left shoulder pain, unspecified chronicity M25.512 [facility] [id number] [place] [address] 37843- 9358 Mar, [facility] [facility] [id number] [place] [address] 62762- 0405 February, Pre-op evaluation Z01.818 ; Type 2 diabetes mellitus with diabetic polyneuropathy E11.42 and Type 2 diabetes mellitus with foot ulcer E11.621 [facility] [id number] [place] [address] 63134- 1303 February, [facility] [id number] [place] [address] 52766- 4178 February, [facility] [id number] [place] [address] 35330- 0992 February, Toe infection L08.9 and Type 2 diabetes mellitus with other specified complication E11.69 [facility] [id number] [place] [address] 47654- 3108 February, [facility] [id number] [place] [address] 52084- 9665 Jan, Type 2 diabetes mellitus with diabetic polyneuropathy E11.42 [facility] [id number] [place] [address] 72341- 0669 Jan, [facility] [id number] [place] [address] 76075- 4237 Jan, Right upper quadrant pain R10.11 and Intractable vomiting with nausea, unspecified vomiting type R11.2 [facility] [id number] [place] [address] 31425- 9294 Jan, Hypertriglyceridemia E78.1 and Essential hypertension I10 [facility] [id number] [place] [address] 24695- 9917 Jan, Essential hypertension I10 ; Type 2 diabetes mellitus with diabetic polyneuropathy E11.42 and Hypertriglyceridemia E78.1 [facility] [id number] [place] [address] 55579- 4679 16 Dec, 2016 Type 2 diabetes mellitus with diabetic polyneuropathy E11.42 [facility] [id number] [place] [address] 14408- 4107 15 Dec, 2016 Hypertriglyceridemia E78.1 ; Essential hypertension I10 ; Type 2 diabetes mellitus with diabetic polyneuropathy E11.42 ; Anxiety disorder , unspecified F41.9 and Moderate persistent asthma without complication J45.40 [facility] [id number] [place] [address] 94382- 6491 Dec, Type 2 diabetes mellitus with diabetic polyneuropathy E11.42 [facility] [place] [id number] [place] [address] [id number] Dec, [facility] [address] 57426- 3592 Nov, [facility] [id number] [place] [address] 44703- 3915 Nov, [facility] [id number] [place] [address] 68862- 1732 Nov, [facility] [id number] [place] [address] 18119- 0460 Nov, Toe infection L08.9 [facility] [id number] [place] [address] 12322- 3314 Nov, [facility] [id number] [place] [address] 84847- 0293 Oct, History of amputation of hallux Z89.419 [facility] [id number] [place] [address] 76050- 6126 Oct, Type 2 diabetes mellitus with diabetic polyneuropathy E11.42 [facility] [id number] [place] [address] 47629- 3007 Oct, Type 2 diabetes mellitus with diabetic polyneuropathy E11.42 [facility] [address] [place] [address]- 0066 Oct, Acute osteomyelitis of left foot M86.172 ; Pre-op exam Z01.818 and Type 2 diabetes mellitus with diabetic polyneuropathy E11.42 [facility] [address] [place] [address]- 2495 Oct, Foot ulcer, left, with unspecified severity L97.529 ; Acute osteomyelitis of left foot M86.172 and Type 2 diabetes mellitus with diabetic polyneuropathy E11.42 [facility] [id number] [place] [address] 25477- 9362 Sep, [facility] [id number] [place] [address] 40133- 7053 Sep, Intractable vomiting with nausea, unspecified vomiting type R11.2 and Right upper quadrant pain R10.11 [facility] [id number] [place] [address] 87693- 5420 Aug, [facility] [id number] [place] [address] 83820- 8899 Jul, [facility] [id number] [place] [address] 02340- 9107 Jul, Preop examination Z01.818 [facility] [address] [place] [address] 49438- 3998 Jul, [facility] [address] [place] [address]- 9165 Jul, [facility] [id number] [place] [address] 22167- 8106 Jul, Chronic osteomyelitis of left foot M86.672 and Ulcer of left foot, with unspecified severity L97.529 [facility] [address] [place] [address]- 6978 Jul, Non-pressure chronic ulcer of other part of left foot with unspecified severity L97.529 [facility] [address] [place] [address]- 1461 Jul, [facility] [id number] [place] [address] 94251- 0221 Jul, [facility] [id number] [place] [address] 68895- 7304 Jun, [facility] [id number] [place] [address] 12994- 1641 Jun, [facility] [id number] [place] [address] 12488- 9361 Jun, [facility] [id number] [place] [address] 64946- 9354 21 Jun, 2016 Right upper quadrant pain R10.11 [facility] [id number] [place] [address] 19263- 4719 20 Jun, 2016 [facility] [id number] [place] [address] 55771- 1232 19 Jun, 2016 Intractable vomiting with nausea, unspecified vomiting type R11.2 [facility] [id number] [place] [address] 21125- 1121 13 Jun, 2016 Right upper quadrant pain R10.11 ; Migraine with aura and with status migrainosus, not intractable G43.101 and Intractable vomiting with nausea, unspecified vomiting type R11.2 [facility] [address] [place] [address] 92861- 0678 12 Jun, 2016 [facility] [id number] [place] [address] 96015- 6509 Jun, Gastroenteritis K52.9 [facility] [id number] [place] [address] 27953- 8409 May, [facility] [id number] [place] [address] 80413- 9270 May, Hypertriglyceridemia E78.1 ; Essential hypertension I10 ; Type 2 diabetes mellitus with diabetic polyneuropathy E11.42 ; Moderate persistent asthma without complication J45.40 ; Type 2 diabetes mellitus with foot ulcer E11.621 ; Other chronic pain G89.29 ; Pain in right leg M79.604 ; Pain of left leg M79.605 ; Rash and nonspecific skin eruption R21 and Anxiety disorder, unspecified F41.9 [place] [address] 60532- 4743 May, Essential hypertension I10 ; Hypertriglyceridemia E78.1 ; Upper respiratory infection J06.9 ; Subclinical hypothyroidism E03.9 and Type 2 diabetes mellitus with diabetic polyneuropathy E11.42 [place] [address] 25390- 4935 Apr, Hypertriglyceridemia E78.1 ; Subclinical hypothyroidism E03.9 ; Essential hypertension I10 and Type 2 diabetes mellitus with diabetic polyneuropathy E11.42 [place] [address] 36487- 2228 Mar, [place] [address] 29563- 0623 Mar, Ulcer of right heel L97.419 [facility] [id number] [place] [address] 59905- 9173 Mar, [facility] [id number] [place] [address] 20554- 6210 Mar, [facility] [id number] [place] [address] 15669- 6068 February, [place] [address] 96401- 3809 February, Ulcer of right heel L97.419 and DM neuro manif type II E11.49 [facility] [id number] [place] [address] 10284- 1320 Jan, [place] [address] 54931- 5615 Jan, Ulcer of right heel L97.419 ; Type 2 diabetes mellitus with foot ulcer E11.621 and Non-pressure chronic ulcer of other part of left foot with unspecified severity L97.529 [facility] [id number] [place] [address] 14109- 8663 Jan, [facility] [id number] [place] [address] 69045- 4936 Jan, [facility] [id number] [place] [address] 48721- 1348 Jan, Infection of toenail L03.039 [place] [address] 94326- 4683 Jan, Blister of toe of left foot, initial encounter S90.425A and Type 2 diabetes mellitus with diabetic polyneuropathy E11.42 [facility] [id number] [place] [address] 34615- 6018 Jan, [facility] [id number] [place] [address] 34456 -1600 Jan, Sore throat J02.9 and Strep pharyngitis J02.0 [facility] [id number] [place] [address] 91033- 9453 Dec, Type 2 diabetes mellitus with diabetic polyneuropathy E11.42 ; Upper respiratory infection J06.9 ; Cough R05 and Asthma exacerbation J45.901 [facility] [id number] [place] [address] 51389- 7278 Oct, [facility] [id number] [place] [address] 92910- 1648 Oct, [facility] [id number] [place] [address] 60510- 9718 Oct, [facility] [id number] [place] [address] 95587- 5256 Oct, [facility] [id number] [place] [address] 31766- 8112 Sep, [place] [address] [place] [address] 03382- 9048 Aug, Anxiety disorder, unspecified F41.9 and Obesity E66.9 [facility] [id number] [place] [address] 17994- 1247 Aug, Moderate persistent asthma without complication J45.[address] 27177- 4643 Aug, Anxiety disorder, unspecified F41.9 [place] [id number] [place] [address] 43393- 6392 Aug, Encounter for immunization Z23 ; Chronic migraine G43.709 ; Hypertriglyceridemia E78.1 ; Type 2 diabetes mellitus with diabetic polyneuropathy E11.42 ; Moderate persistent asthma without complication J45.40 and Morbid obesity E66.01 [place] [id number] [place] [address] 63368- 0197 Jul, [place] [id number] [place] [address] 17503- 7785 Jul, [place] [id number] [place] [address] 66164- 5788 Jul, [facility] [id number] [place] [address] 70988- 3671 Jul, Subclinical hypothyroidism E03.9 [place] [id number] [place] [address] 17931- 2594 Jun, Essential hypertension, benign 401.1 ; Diabetic ulcer of lower extremity 250.80 ; Asthma 493.90 ; Diabetes mellitus type II, uncontrolled 250.02 and Hyperlipidemia associated with type 2 diabetes mellitus 250.80 [facility] [id number] [place] [address] 38939- 1371 Jun, [place] [id number] [place] [address] 66137- 4942 Jun, [address] [place] [address]- 3944 May, [facility] [id number] [place] [address] 58093- 7484 Apr, [facility] [id number] [place] [address] 01738- 7119 Apr, Viral upper respiratory infection 465.9 and Asthma 493.90 [facility] [id number] [place] [address] 48690- 6883 Mar, Abnormal ankle brachial index 796.4 [facility] [id number] [place] [address] 57606- 4476 February, [facility] [id number] [place] [address] 41328- 5437 February, Essential hypertension, benign 401.1 [facility] [id number] [place] [address] 33836- 8689 February, Diabetic peripheral neuropathy 250.60 ; Ulcer of heel and midfoot 707.14 and Decreased pedal pulses 785.9 [facility] [id number] [place] [address] [id number] [id number] February, [facility] [id number] [place] [address] [id number] February, [facility] [id number] [place] [address] [phone] Jan, [facility] [id number] [place] [address] [phone] Jan, [facility] [id number] [place] [address] [phone] Dec, [facility] [id number] [place] [address] [address] Dec, [facility] [id number] [address] Nov, [facility] [place] [facility] [address] [id number] [place] [address] Nov, 2014 [facility] [place] [facility] [address] [id number] [place] [address] Nov, 2014 [facility] [place] [facility] [address] [id number] [place] [address] 2776 Nov, 2014 [facility] [place] [facility] [address] [id number] [place] [address] 2546 Nov, 2014 [facility] [place] [facility] [address] [id number] [place] [address]344 Nov, 2014 [facility] [place] [facility] [address] [id number] [place] [address]- 1786 Nov, 2014 [facility] [place] [facility] [address] [id number] [place] [address] 4614 Nov, [facility] [place] [facility] [address] [id number] [place] [address]- 6605 Nov, [facility] [place] [facility] [address] [id number] [place] [address]- 8831 Oct, [facility] [place] [facility] [address] [id number] [place] [address] 3628 Oct, [facility] [place] [facility] [address] [id number] [place] [address] 2540 Oct, [facility] [place] [facility] [address] [id number] [place] [address]- 2545 Oct, [facility] [place] [facility] [address] [id number] [place] [address] 2542 Oct, [facility] [place] [facility] [address] [id number] [place] [address]- 2544 Oct, [facility] [place] [facility] [address] [id number] [place] [address]- 9626 Oct, [facility] [place] [facility] [address] [id number] [place] [address]- 3040 Oct, [facility] [address] [id number] [place] [address]- 1499 Oct, [facility] [place] [facility] [address] [id number] [place] [address]- 3839 Oct, [facility] [place] [facility] [address] [id number] [place] [address]- 2936 Oct, [facility] [place] [facility] [address] [id number] [place] [address]- 1078 Oct, [facility] [place] [facility] [address] [id number] [place] [address]- 2378 Oct, [facility] [place] [facility] [address] [id number] [place] [address]- 8059 Sep, [facility] [place] [facility] [address] [id number] [place] [address]- 8695 Sep, [facility] [place] [facility] [address] [id number] [place] [address]- 6499 Sep, [facility] [place] [facility] [address] [id number] [place] [address]- 2780 Sep, [facility] [place] [facility] [address] [id number] [place] [address]- 5152 Sep, [facility] [place] [facility] [address] [id number] [place] [address]- 5502 Sep, [facility] [place] [facility] [address] [id number] [place] [address]- 0324 Sep, [facility] [place] [facility] [address] [id number] [place] [address]- 5889 Sep, [facility] [place] [facility] [address] [id number] [place] [address]- 7734 Sep, [facility] [place] [facility] [address] [id number] [place] [address]- 2948 Sep, [facility] [place] [facility] [address] [id number] [place] [address] Sep, [facility] [place] [facility] [address] [id number] [place] [address] Sep, [facility] [place] [facility] [address] [id number] [place] [address]- 5545 Sep, [facility] [place] [facility] [address] [id number] [place] [address] Sep, [facility] [place] [facility] [address] [id number] [place] [address]- 6305 Sep, [facility] [place] [facility] [address] [id number] [place] [address]- 9181 Sep, [facility] [place] [facility] [address] [id number] [place] [address]- 9678 Aug, [facility] [place] [facility] [address] [id number] [place] [address]- 3811 Aug, [facility] [place] [facility] [address] [id number] [place] [address]- 5983 Aug, [facility] [place] [facility] [address] [id number] [place] [address]- 6329 Aug, [facility] [place] [facility] [address] [id number] [place] [address]- 9799 Aug, [facility] [place] [facility] [address] [id number] [place] [address]- 8608 Aug, [facility] [place] [facility] [address] [id number] [place] [address]- 6569 Aug, [facility] [place] [facility] [address] [id number] [place] [address]- 3029 Aug, [facility] [place] [facility] [address] [id number] [place] [address]- 7704 Jul, [facility] [place] [facility] [address] [id number] [place] [address]- 4511 Jul, [facility] [place] [facility] [address] [id number] [place] [address]- 2853 30 Jul, 2014 [facility] [place] [facility] [address] [id number] [place] [address]- 8671 Jul, [facility] [place] [facility] [address] [id number] [place] [address]- 9279 Jul, [facility] [place] [facility] [address] [id number] [place] [address]- 2089 Jun, [facility] [place] [facility] [address] [id number] [place] [address]- 4935 Jun, [facility] [place] [facility] [address] [id number] [place] [address]- 5600 Jun, [facility] [place] [facility] [address] [id number] [place] [address]- 2286 Jun, [facility] [place] [facility] [address] [id number] [place] [address]- 3052 Jun, [facility] [place] [facility] [address] [id number] [place] [address]- 7626 May, [facility] [place] [facility] [address] [id number] [place] [address]- 7129 May, [facility] [place] [facility] [address] [id number] [place] [address]- 9983 Apr, [facility] [place] [facility] [address] [id number] [place] [address]- 2441 Apr, [facility] [place] [facility] [address] [id number] [place] [address]- 8059 Apr, [facility] [place] [facility] [address] [id number] [place] [address]- 8159 Apr, [facility] [place] [facility] [address] [id number] [place] [address] Apr, [facility] [place] [facility] [address] [id number] [place] [address]- 3391 Apr, [facility] [place] [facility] [address] [id number] [place] [address]- 3292 Mar, [facility] [place] [facility] [address] [id number] [place] [address]- 7330 Mar, [facility] [place] [facility] [address] [id number] [place] [address]- 1436 Mar, [facility] [place] [facility] [address] [id number] [place] [address]- 5800 Mar, [facility] [place] [facility] [address] [id number] [place] [address]- 6823 Mar, [facility] [place] [facility] [address] [id number] [place] [address]- 8112 Mar, [facility] [place] [facility] [address] [id number] [place] [address]- 3768 Mar, [facility] [place] [facility] [address] [id number] [place] [address]- 5888 Mar, [facility] [place] [facility] [address] [id number] [place] [address]- 5559 Mar, [facility] [place] [facility] [address] [id number] [place] [address]- 9464 Mar, [facility] [place] [facility] [address] [id number] [place] [address]- 2700 Mar, [facility] [place] [facility] [address] [id number] [place] [address]- 1585 Mar, [facility] [place] [facility] [address] [id number] [place] [address]- 7523 Mar, [facility] [place] [facility] [address] [id number] [place] [address]- 3892 Mar, [facility] [place] [facility] [address] [id number] [place] [address]- 5351 Mar, [facility] [place] [facility] [address] [id number] [place] [address]- 2154 Mar, [facility] [place] [facility] [address] [id number] [place] [address]- 5405 February, [facility] [place] [facility] [address] [id number] [place] [address]- 4692 February, [facility] [place] [facility] [address] [id number] [place] [address]- 1240 February, [facility] [place] [facility] [address] [id number] [place] [address]- 9206 February, [facility] [place] [facility] [address] [id number] [place] [address]- 1569 February, [facility] [place] [facility] [address] [id number] [place] [address]- 3501 February, [facility] [place] [facility] [address] [id number] [place] [address]- 0657 February, [facility] [place] [facility] [address] [id number] [place] [address]- 8655 February, [facility] [place] [facility] [address] [id number] [place] [address]- 7083 Jan, [facility] [place] [facility] [address] [id number] [place] [address]- 8705 Jan, [facility] [place] [facility] [address] [id number] [place] [address]- 7397 Dec, [facility] [place] [facility] [address] [id number] [place] [address]- 6800 Dec, [facility] [place] [facility] [address] [id number] [place] [address]- 1614 Dec, [facility] [place] [facility] [address] [id number] [place] [address]- 6604 Dec, [facility] [place] [facility] [address] [id number] [place] [address]- 4561 24 Dec, 2013 [facility] [place] [facility] [address] [id number] [place] [address]- 1110 24 Dec, 2013 [facility] [place] [facility] [address] [id number] [place] [address]- 0033 Dec, [facility] [place] [facility] [address] [id number] [place] [address]- 0654 Dec, [facility] [place] [facility] [address] [id number] [place] [address]- 4538 17 Dec, 2013 [facility] [place] [facility] [address] [id number] [place] [address]- 1215 17 Dec, 2013 [facility] [place] [facility] [address] [id number] [place] [address]- 7140 Dec, [facility] [place] [facility] [address] [id number] [place] [address]- 4447 Dec, [facility] [place] [facility] [address] [id number] [place] [address]- 5846 Dec, [facility] [place] [facility] [address] [id number] [place] [address]- 4361 Dec, [facility] [place] [facility] [address] [id number] [place] [address]- 7256 Nov, [facility] [place] [facility] [address] [id number] [place] [address]- 3918 Nov, [facility] [place] [facility] [address] [id number] [place] [address]- 0735 Oct, [facility] [place] [facility] [address] [id number] [place] [address]- 8243 Oct, [facility] [place] [facility] [address] [id number] [place] [address]- 3470 Oct, [facility] [place] [facility] [address] [id number] [place] [address]- 7209 Oct, [facility] [place] [facility] [address] [id number] [place] [address]- 7909 16 Oct, 2013 [facility] [place] [facility] [address] [id number] [place] [address]- 4395 Oct, [facility] [place] [facility] [address] [id number] [place] [address]- 4466 Oct, [facility] [place] [facility] [address] [id number] [place] [address]- 0073 31 Sep, 2013 [facility] [place] [facility] [address] [id number] [place] [address]- 9093 30 Sep, 2013 [facility] [place] [facility] [address] [id number] [place] [address]- 5542 30 Sep, 2013 [facility] [place] [facility] [address] [id number] [place] [address]- 3017 Sep, [facility] [place] [facility] [address] [id number] [place] [address]- 1638 Sep, [facility] [place] [facility] [address] [id number] [place] [address]- 4211 Sep, [facility] [place] [facility] [address] [id number] [place] [address]- 3077 Sep, [facility] [place] [facility] [address] [id number] [place] [address]- 6768 Sep, [facility] [place] [facility] [address] [id number] [place] [address]- 0760 Sep, [facility] [place] [facility] [address] [id number] [place] [address] 2548 Sep, [facility] [place] [facility] [address] [id number] [place] [address]- 6176 Sep, [facility] [place] [facility] [address] [id number] [place] [address]- 1806 Sep, [facility] [place] [facility] [address] [id number] [place] [address]- 4433 Sep, [facility] [place] [facility] [address] [id number] [place] [address]- 6957 16 Sep, 2013 [facility] [place] [facility] [address] [id number] [place] [address]- 2809 Sep, [facility] [place] [facility] [address] [id number] [place] [address]- 6915 Sep, [facility] [place] [facility] [address] [id number] [place] [address]- 6482 Sep, [facility] [place] [facility] [address] [id number] [place] [address]- 2966 Sep, [facility] [place] [facility] [address] [id number] [place] [address]- 3030 Sep, [facility] [place] [facility] [address] [id number] [place] [address]- 1186 Aug, [facility] [place] [facility] [address] [id number] [place] [address]- 1493 Aug, [facility] [place] [facility] [address] [id number] [place] [address]- 6571 Aug, [facility] [place] [facility] [address] [id number] [place] [address]- 9900 Aug, [facility] [place] [facility] [address] [id number], [place] [address]- 8206 Aug, [facility] [place] [facility] [address] [id number], [place] [address]- 8748 Aug, [facility] [place] [facility] [address] [id number] [place] [address]- 6048 Aug, [facility] [place] [facility] [address] [id number], [place] [address]- 6543 Aug, [facility] [place] [facility] [address] [id number], [place] [address]- 4148 Aug, [facility] [place] [facility] [address] [id number] [place] [address]- 3916 Aug, [facility] [place] [facility] [address] [id number] [place] [address]- 9612 Aug, [facility] [place] [facility] [address] [id number] [place] [address]- 4377 Aug, [facility] [place] [facility] [address] [id number] [place] [address]- 3292 Aug, [facility] [place] [facility] [address] [id number] [place] [address]- 4296 Aug, [facility] [place] [facility] [address] [id number] [place] [address]- 6048 Aug, [facility] [place] [facility] [address] [id number] [place] [address]- 0716 Aug, [facility] [place] [facility] [address] [facility] [id number] [place] [address]- 7645 Aug, [facility] [place] [facility] [address] [id number] [place] [address]- 2161 Jul, [facility] [place] [facility] [address] [id number] [place] [address]- 0250 Jul, [facility] [place] [facility] [address] [facility] [id number] [place] [address]- 4365 Jul, [facility] [place] [facility] [address] [id number] [place] [address]- 2041 Jul, [facility] [place] [facility] [address] [id number], [place] [address]- 9457 Jul, [facility] [place] [facility] [address] [id number] [place] [address]- 7058 Jul, [facility] [place] [facility] [address] [facility] [id number] [place] 0128 Jul, [facility] [place] [facility] [address] [id number] [address]16 Jun, [facility] [address] [id number], [place] [address]- 9519 20 Jun, 2012 [facility] [address] [id number] [place] [address]- 9237 17 Jun, 2012 [facility] [address] [facility] [id number], [place] [address]- 6733 10 Jun, 2012 [facility] [address] [id number] [place] [address]- 1537 06 Jun, 2012 [facility] [address] [id number] [place] [address]- 2451 06 Jun, 2012 [facility] [address] [id number] [place] [address]- 1254 05 Jun, 2012 [facility] [address] [facility] [id number] [place] [address]- 7715 03 Jun, 2012 [facility] [address] [facility] [id number], [place] [address]- 4671 May, [facility] [address] [facility] [id number], [place] [address] May, [facility] [address] [id number], [place] [address]- 9361 15 May, 2013 [facility] [address] [id number], [place] [address]- 0570 May, [facility] [address] [id number], [place] [address]- 7299 May, [facility] [address] [facility] [id number], [place] [address]- 5465 May, [facility] [address] [facility] [id number], [place] [address]- 4518 May, [facility] [address] [facility] [id number], [place] [address]- 5678 May, IMMUNIZATIONS No Known Immunizations SOCIAL HISTORY Never Assessed REASON FOR VISIT Requests return call PLAN OF CARE VITAL SIGNS MEDICATIONS Medication Instructions Dosage Frequency Start Date End Date Duration Status Promethazine HCl 25 MG Orally every 4 hours 1 tablet as needed 4h 20 Jun, 2016 Active RESULTS No Results PROCEDURES No Known procedures INSTRUCTIONS MEDICATIONS ADMINISTERED No Known Medications MEDICAL (GENERAL) HISTORY Type Description Date Medical History type I diabetes Medical History hypertension Medical History hyperlipidemia Medical History asthma Medical History migraine headaches Medical History allergic rhinitis Medical History neuropathy Medical History Chronic osteomyelitis, site unspecified Medical History 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 [facility] Surgical History bladder surgery-stretch Davida Antunez 2003 Surgical History exploratory laparoscopy [facility] 1995 Surgical History amputation, toe (R great) Surgical History amputation, (R forefoot) 2015 Surgical History amputation, toe Left second 12/2016 Surgical History amputation, 4th left toe 02/2017 Hospitalization History Left foot cellulitis, left 2nd toe amputation-[facility] 12/23 Hospitalization History Surgery Hospitalizations
--- OUTSIDE RECORDS SUMMARY | 2018-08-22 09:20 | XMS REPORT ---
Author Author LUDIVINA STEPHANIE [facility] Address [address] [place] [address] Care Team Providers Care Fisher Pot Name Role Phone FARNAZ FLORENCEY Unavailable PROBLEMS Type Condition ICD9-CM Code [id number] Code Onset Dates Condition Status SNOMED Code Problem Subclinical hypothyroidism E03.9 Active 97476918 Problem Hypertriglyceridemia E78.1 Active 399250590 Problem Type 2 diabetes mellitus with diabetic polyneuropathy E11.42 Active 364115154 Problem Type 2 diabetes mellitus with diabetic chronic 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 Active 106546139 Problem Other chronic pain G89.29 Active 47985803 Problem Type 2 diabetes mellitus with other skin complications E11.628 Active 30103402 Problem Pain in left foot M79.672 Active 65294159 Problem Irregular menstrual cycle N92.6 Active 52956587 Problem Pain in right foot M79.671 Active 50844667 Problem Tonsillolith J35.8 Active 9684921 Problem Chronic prescription opiate use Z79.891 Active 637358022 Problem Seasonal allergic rhinitis due to pollen J30.1 Active 43937797 Problem Asthma exacerbation, mild J45.901 Active 110458426 Problem Chronic kidney disease, stage III (moderate) N18.3 Active 927211712 Problem Chronic migraine G43.709 Active 37487523 Problem Moderate persistent asthma without complication J45.40 Active 306778360 Problem Intrinsic eczema L20.84 Active 21509935 Problem Severe episode of recurrent major depressive disorder, without psychotic features F33.2 Active 43444031 Problem Non-pressure chronic ulcer of right heel and midfoot limited to breakdown of skin L97.411 Active 010101783 Problem Ulcer of right heel L97.419 Active 945875691 Problem Obesity E66.9 Active 737272458 Problem Type 2 diabetes mellitus with foot ulcer E11.621 Active 03380267 Problem Essential hypertension I10 Active 86281663 Problem Anxiety disorder, unspecified F41.9 Active 094170342 Problem Type 2 diabetes mellitus with other specified complication E11.69 Active 268720418 Problem Status post amputation of toe of left foot Z89.422 Active 877010939 Problem DM neuro manif type II E11.49 Active 10560862 Problem History of amputation of hallux Z89.419 Active 075347912 ALLERGIES No Information ENCOUNTERS Encounter Location Date Diagnosis [facility] [address] [address] 12 Mar, 2018 Moderate persistent asthma without complication J45.40 [facility] [address] [address]- [address] 07 Mar, 2018 Moderate persistent asthma without complication J45.40 [facility] [address] [address]- 3[address] Mar, [facility] [address] [address]- [address]88 February, Chronic migraine G43.709 [facility] [address] 12784- 2752 February, Chronic migraine G43.709 [facility] [address] 81971- 5722 February, [facility] [address] [address]- 3[address] February, [facility] [address] 28[address]- 7257 February, Type 2 diabetes mellitus with diabetic polyneuropathy E11.42 ; Moderate persistent asthma without complication J45.40 ; Type 2 diabetes mellitus with foot ulcer E11.621 ; Non-pressure chronic ulcer of right heel and midfoot limited to breakdown of skin L97.411 ; Chronic migraine G43.709 and BMI 60.0-69.9, adult Z68.44 [facility] [id number] [place] [address] 36730 -1246 Jan, 2018 Asthma exacerbation, mild J45.901 ; Seasonal allergic rhinitis due to pollen J30.1 and BMI 60.0-69.9, adult Z68.44 [facility] [id number] [place] [address] 76287- 4600 Jan, [place] [address] 75016- 7748 Jan, Other chronic pain G89.29 [facility] [id number] [place] [address] 20430- 1692 30 Dec, 2017 Type 2 diabetes mellitus with diabetic polyneuropathy E11.42 [facility] [id number] [place] [address] 25442- 3678 Dec, Type 2 diabetes mellitus with diabetic polyneuropathy E11.42 [place] [address] 91136- 1239 15 Dec, 2017 [place] [address] 05910- 3167 14 Dec, 2017 [place] [id number] [place] [address] 57235- 3526 13 Dec, 2017 Chronic kidney disease, stage III (moderate) N18.3 [facility] [id number] [place] [address] 59387 -0561 09 Dec, 2017 Nausea R11.0 and Diarrhea, unspecified type R19.7 [place] [id number] [place] [address] 22923- 3632 07 Dec, 2017 Chronic kidney disease, stage III (moderate) N18.3 and Type 2 diabetes mellitus with diabetic polyneuropathy E11.42 [facility] [id number] [place] [address] 68319- 5537 Dec, [place] [address] 48491- 3756 Nov, Ulcer of right heel L97.419 and Type 2 diabetes mellitus with diabetic polyneuropathy E11.42 [facility] [id number] [place] [address] [id number] Nov, Dental examination Z01.20 [facility] [address] [place] [address] 29031- 6199 Nov, Open wound of right foot, initial encounter S91.301A [facility] [id number] [place] [address] 89672 -7400 Nov, Open wound of right foot, initial encounter S91.301A ; Non- intractable vomiting with nausea, unspecified vomiting type R11.2 and BMI 60.0- 69.9, adult Z68.44 [facility] [id number] [place] [address] 09701- 3669 Nov, [place] [address] 01634- 8644 Nov, Other chronic pain G89.29 [place] [address] 12295- 5075 Oct, Cellulitis of right lower limb L03.115 [facility] [id number] [place] [address] 65628- 2639 Oct, [place] [address] 13308- 2887 Oct, [place] [id number] [place] [address] 50907- 6504 Oct, Cat scratch W55.03XA ; Cellulitis of right lower limb L03.115 ; Acute nasopharyngitis J00 ; BMI 60.0-69.9, adult Z68.44 and Cough R05 [place] [id number] [place] [address] 60997- 9965 Oct, Cat scratch W55.03XA ; Cutaneous abscess of right lower extremity L02.415 and Cellulitis of right lower limb L03.115 [place] [id number] [place] [address] 94969- 7965 Oct, Type 2 diabetes mellitus with diabetic polyneuropathy E11.42 [place] [address] [place] [address] Oct, Other chronic pain G89.29 [place] [id number] [place] [address] 14373- 8105 Aug, [place] [id number] [place] [address] 44271- 1869 Jul, Other chronic pain G89.29 [place] [address] 96508- 8327 Jul, [place] [address] 08342- 8108 Jul, Chronic kidney disease, stage III (moderate) N18.3 [place] [address] 05408- 1209 Jul, Type 2 diabetes mellitus with diabetic polyneuropathy E11.42 ; Essential hypertension I10 ; Irregular menstrual cycle N92.6 ; Hypertriglyceridemia E78.1 ; Anxiety disorder, unspecified F41.9 ; Severe episode of recurrent major depressive disorder, without psychotic features F33.2 ; Tonsillolith J35.8 ; Intrinsic eczema L20.84 ; Subclinical hypothyroidism E03.9 ; Viral pharyngitis J02.9 and Encounter for immunization Z23 [place] [id number] [place] [address] 38283- 6753 13 Jun, 2017 Essential hypertension I10 [place] [id number] [place] [address] 92770- 2579 08 Jun, 2017 [place] [id number] [place] [address] 42335- 6242 Jun, [place] [id number] [place] [address] 33511- 3232 May, Moderate persistent asthma without complication J45.40 [place] [id number] [place] [address] 32730- 1958 May, Pain in right foot M79.671 ; Pain in left foot M79.672 ; Other chronic pain G89.29 and Chronic prescription opiate use Z79.891 [facility] [id number] [place] [address] 56413- 5702 May, [facility] [id number] [place] [address] 01256- 7909 May, [facility] [id number] [place] [address] 13539- 2202 Apr, [facility] [id number] [place] [address] 19204- 5661 Apr, Chronic migraine G43.709 [facility] [address] 87020- 7820 Apr, Essential hypertension I10 ; Hypertriglyceridemia E78.1 and Chronic migraine G43.709 [facility] [id number] [place] [address] 15756- 0471 Apr, [facility] [id number] [place] [address] 49521- 7896 Apr, Sore throat J02.9 [facility] [id number] [place] [address] 55535- 0173 Apr, [facility] [id number] [place] [address] 35331- 8112 Mar, Strep pharyngitis J02.0 and Non-intractable vomiting with nausea, unspecified vomiting type R11.2 [facility] [id number] [place] [address] 46098- 2398 Mar, [facility] [id number] [place] [address] 83313- 9673 Mar, [facility] [id number] [place] [address] 50445- 2930 Mar, [facility] [id number] [place] [address] 11707- 5464 Mar, Type 2 diabetes mellitus with diabetic polyneuropathy E11.42 ; Moderate persistent asthma without complication J45.40 ; Status post amputation of toe of left foot Z89.422 ; Acute seasonal allergic rhinitis, unspecified trigger J30.2 and Left shoulder pain, unspecified chronicity M25.512 [place] [id number] [place] [address] 59576- 2463 Mar, [place] [id number] [place] [address] 13950- 6512 February, Pre-op evaluation Z01.818 ; Type 2 diabetes mellitus with diabetic polyneuropathy E11.42 and Type 2 diabetes mellitus with foot ulcer E11.621 [place] [id number] [place] [address] 61157- 0492 February, [place] [id number] [place] [address] 37966- 9188 February, [place] [id number] [place] [address] 02321- 1807 February, Toe infection L08.9 and Type 2 diabetes mellitus with other specified complication E11.69 [place] [id number] [place] [address] 93627- 6426 February, [place] [id number] [place] [address] 93687- 1470 Jan, Type 2 diabetes mellitus with diabetic polyneuropathy E11.42 [place] [id number] [place] [address] 75629- 4344 Jan, [place] [id number] [place] [address] 00061- 0624 Jan, Right upper quadrant pain R10.11 and Intractable vomiting with nausea, unspecified vomiting type R11.2 [place] [id number] [place] [address] 18296- 6900 Jan, Hypertriglyceridemia E78.1 and Essential hypertension I10 [place] [id number] [place] [address] 89691- 1625 Jan, Essential hypertension I10 ; Type 2 diabetes mellitus with diabetic polyneuropathy E11.42 and Hypertriglyceridemia E78.1 [facility] [id number] [place] [address] 15531- 8830 16 Dec, 2016 Type 2 diabetes mellitus with diabetic polyneuropathy E11.42 [facility] [id number] [place] [address] 81389- 4433 15 Dec, 2016 Hypertriglyceridemia E78.1 ; Essential hypertension I10 ; Type 2 diabetes mellitus with diabetic polyneuropathy E11.42 ; Anxiety disorder , unspecified F41.9 and Moderate persistent asthma without complication J45.40 [facility] [id number] [place] [address] 62492- 4423 Dec, Type 2 diabetes mellitus with diabetic polyneuropathy E11.42 [facility] [id number] [place] [address] [id number] Dec, [facility] [address] 19149- 9769 Nov, [facility] [id number] [place] [address] 63333- 7487 Nov, [facility] [id number] [place] [address] 29443- 8288 Nov, [facility] [id number] [place] [address] 02568- 8015 Nov, Toe infection L08.9 [facility] [id number] [place] [address] 65862- 1560 Nov, [facility] [id number] [place] [address] 07710- 5131 Oct, History of amputation of hallux Z89.419 [facility] [id number] [place] [address] 40205- 9496 Oct, Type 2 diabetes mellitus with diabetic polyneuropathy E11.42 [facility] [id number] [place] [address] 39388- 1027 Oct, Type 2 diabetes mellitus with diabetic polyneuropathy E11.42 [facility] [address] [address]- 3687 Oct, Acute osteomyelitis of left foot M86.172 ; Pre-op exam Z01.818 and Type 2 diabetes mellitus with diabetic polyneuropathy E11.42 [facility] [address] [address]- 8944 Oct, Foot ulcer, left, with unspecified severity L97.529 ; Acute osteomyelitis of left foot M86.172 and Type 2 diabetes mellitus with diabetic polyneuropathy E11.42 [facility] [id number] [place] [address] 56111- 7826 Sep, [facility] [id number] [place] [address] 56549- 6544 Sep, Intractable vomiting with nausea, unspecified vomiting type R11.2 and Right upper quadrant pain R10.11 [facility] [id number] [place] [address] 89330- 5815 Aug, [facility] [id number] [place] [address] 77083- 4064 Jul, [facility] [id number] [place] [address] 66905- 0567 Jul, Preop examination Z01.818 [facility] [address] [place] [address] 07887- 1542 Jul, [facility] [address] [address]- 0801 Jul, [facility] [id number] [place] [address] 24553- 8575 Jul, Chronic osteomyelitis of left foot M86.672 and Ulcer of left foot, with unspecified severity L97.529 [facility] [address] [address]- 1362 Jul, Non-pressure chronic ulcer of other part of left foot with unspecified severity L97.529 [facility] [address] [address]- 0132 Jul, [facility] [id number] [place] [address] 57872- 3692 Jul, [facility] [id number] [place] [address] 62754- 1967 Jun, [facility] [id number] [place] [address] 65167- 6906 Jun, [facility] [id number] [place] [address] 73081- 1825 Jun, [facility] [id number] [place] [address] 12199- 0631 21 Jun, 2016 Right upper quadrant pain R10.11 [facility] [id number] [place] [address] 99660- 4173 20 Jun, 2016 [facility] [id number] [place] [address] 59260- 5335 19 Jun, 2016 Intractable vomiting with nausea, unspecified vomiting type R11.2 [facility] [id number] [place] [address] 58287- 7205 13 Jun, 2016 Right upper quadrant pain R10.11 ; Migraine with aura and with status migrainosus, not intractable G43.101 and Intractable vomiting with nausea, unspecified vomiting type R11.2 [facility] [address] [place] [address] 58982- 6984 12 Jun, 2016 [facility] [id number] [place] [address] 53847- 4282 Jun, Gastroenteritis K52.9 [facility] [id number] [place] [address] 74382- 9286 May, [facility] [id number] [place] [address] 78444- 9874 May, Hypertriglyceridemia E78.1 ; Essential hypertension I10 ; Type 2 diabetes mellitus with diabetic polyneuropathy E11.42 ; Moderate persistent asthma without complication J45.40 ; Type 2 diabetes mellitus with foot ulcer E11.621 ; Other chronic pain G89.29 ; Pain in right leg M79.604 ; Pain of left leg M79.605 ; Rash and nonspecific skin eruption R21 and Anxiety disorder, unspecified F41.9 [place] [address] 43473- 0798 May, Essential hypertension I10 ; Hypertriglyceridemia E78.1 ; Upper respiratory infection J06.9 ; Subclinical hypothyroidism E03.9 and Type 2 diabetes mellitus with diabetic polyneuropathy E11.42 [place] [address] 28908- 1855 Apr, Hypertriglyceridemia E78.1 ; Subclinical hypothyroidism E03.9 ; Essential hypertension I10 and Type 2 diabetes mellitus with diabetic polyneuropathy E11.42 [place] [address] 54391- 6065 Mar, [place] [address] 71292- 4605 Mar, Ulcer of right heel L97.419 [place] [id number] [place] [address] 77060- 9506 Mar, [place] [id number] [place] [address] 22361- 9938 Mar, [place] [id number] [place] [address] 70143- 4331 February, [place] [address] 97603- 9159 February, Ulcer of right heel L97.419 and DM neuro manif type II E11.49 [place] [id number] [place] [address] 32752- 1033 Jan, [place] [address] 37540- 1736 Jan, Ulcer of right heel L97.419 ; Type 2 diabetes mellitus with foot ulcer E11.621 and Non-pressure chronic ulcer of other part of left foot with unspecified severity L97.529 [facility] [id number] [place] [address] 91145- 6810 Jan, [facility] [id number] [place] [address] 14014- 1749 Jan, [place] [id number] [place] [address] 82763- 6649 Jan, Infection of toenail L03.039 [place] [address] 04402- 3055 Jan, Blister of toe of left foot, initial encounter S90.425A and Type 2 diabetes mellitus with diabetic polyneuropathy E11.42 [place] [id number] [place] [address] 44852- 7535 Jan, [facility] [id number] [place] [address] 22580 -9905 Jan, Sore throat J02.9 and Strep pharyngitis J02.0 [place] [id number] [place] [address] 24814- 5514 Dec, Type 2 diabetes mellitus with diabetic polyneuropathy E11.42 ; Upper respiratory infection J06.9 ; Cough R05 and Asthma exacerbation J45.901 [place] [address] [place] [address] 01743- 7371 Oct, [place] [id number] [place] [address] 35213- 6803 Oct, [facility] [id number] [place] [address] 25300- 8611 Oct, [facility] [id number] [place] [address] 14823- 8455 Oct, [facility] [id number] [place] [address] 13286- 4980 Sep, [place] [address] [place] [address] 58250- 4220 Aug, Anxiety disorder, unspecified F41.9 and Obesity E66.9 [place] [id number] [place] [address] 17583- 2107 Aug, Moderate persistent asthma without complication J45.[address] 73494- 7344 Aug, Anxiety disorder, unspecified F41.9 [place] [id number] [place] [address] 42705- 8815 Aug, Chronic migraine G43.709 ; Encounter for immunization Z23 ; Hypertriglyceridemia E78.1 ; Type 2 diabetes mellitus with diabetic polyneuropathy E11.42 ; Moderate persistent asthma without complication J45.40 and Morbid obesity E66.01 [place] [id number] [place] [address] 03614- 3371 Jul, [place] [id number] [place] [address] 20146- 7771 Jul, [place] [id number] [place] [address] 20763- 4948 Jul, [place] [id number] [place] [address] 81341- 9123 Jul, Subclinical hypothyroidism E03.9 [place] [id number] [place] [address] 25992- 5593 Jun, Essential hypertension, benign 401.1 ; Diabetic ulcer of lower extremity 250.80 ; Asthma 493.90 ; Diabetes mellitus type II, uncontrolled 250.02 and Hyperlipidemia associated with type 2 diabetes mellitus 250.80 [place] [id number] [place] [address] 78928- 6932 Jun, [place] [id number] [place] [address] 44179- 2611 Jun, [address] [address]- 3839 May, [facility] [id number] [place] [address] 99176- 6833 Apr, [facility] [id number] [place] [address] 78923- 0741 Apr, Viral upper respiratory infection 465.9 and Asthma 493.90 [facility] [id number] [place] [address] 31225- 9626 Mar, Abnormal ankle brachial index 796.4 [facility] [id number] [place] [address] 99857- 5003 February, [facility] [id number] [place] [address] 25611- 2613 February, Essential hypertension, benign 401.1 [facility] [id number] [place] [address] 13276- 5912 February, Diabetic peripheral neuropathy 250.60 ; Ulcer of heel and midfoot 707.14 and Decreased pedal pulses 785.9 [facility] [id number] [place] [address] [id number]- [id number] February, [facility] [id number] [place] [address] [id number]- [id number] February, [facility] [id number] [place] [address] [id number]- [id number] Jan, [facility] [id number] [place] [address] [id number] Jan, [facility] [id number] [place] [address] [id number]- [id number] Dec, [facility] [id number] [place] [address] [id number]- [id number] Dec, [facility] [id number] [address] Nov, [facility] [place] [facility] [address] [id number] [place] [address] Nov, 2014 [facility] [place] [facility] [address] [id number] [place] [address]66 Nov, 2014 [facility] [place] [facility] [address] [id number] [place] [address] 75[address] Nov, 2014 [facility] [place] [facility] [address] [id number] [place] [address] 2546 Nov, 2014 [facility] [place] [facility] [address] [id number] [place] [address] 8525 Nov, 2014 [facility] [place] [facility] [address] [id number] [place] [address] 8876 Nov, 2014 [facility] [place] [facility] [address] [id number] [place] [address] 5489 Nov, [facility] [place] [facility] [address] [id number] [place] [address] 3898 Nov, [facility] [place] [facility] [address] [id number] [place] [address] 1424 Oct, [facility] [place] [facility] [address] [id number] [place] [address] 9264 Oct, [facility] [place] [facility] [address] [id number] [place] [address] 2541 Oct, [facility] [place] [facility] [address] [id number] [place] [address]- 2544 Oct, [facility] [place] [facility] [address] [id number] [place] [address] 2543 Oct, [facility] [place] [facility] [address] [id number] [place] [address]- 2548 Oct, [facility] [place] [facility] [address] [id number] [place] [address] Oct, [facility] [place] [facility] [address] [id number] [place] [address]- 6068 Oct, [facility] [address] [id number] [place] [address]- 7438 Oct, [facility] [place] [facility] [address] [id number] [place] [address]- 5700 Oct, [facility] [place] [facility] [address] [id number] [place] [address]- 7157 Oct, [facility] [place] [facility] [address] [id number] [place] [address]- 9066 Oct, [facility] [place] [facility] [address] [id number] [place] [address]- 6633 Oct, [facility] [place] [facility] [address] [id number] [place] [address]- 8917 Sep, [facility] [place] [facility] [address] [id number] [place] [address]- 1229 Sep, [facility] [place] [facility] [address] [id number] [place] [address]- 7926 Sep, [facility] [place] [facility] [address] [id number] [place] [address]- 6772 Sep, [facility] [place] [facility] [address] [id number] [place] [address]- 0230 Sep, [facility] [place] [facility] [address] [id number] [place] [address]- 5657 Sep, [facility] [place] [facility] [address] [id number] [place] [address]- 1375 Sep, [facility] [place] [facility] [address] [id number] [place] [address]- 4695 Sep, [facility] [place] [facility] [address] [id number] [place] [address]- 4078 Sep, [facility] [place] [facility] [address] [id number] [place] [address]- 0279 Sep, [facility] [place] [facility] [address] [id number] [place] [address] Sep, [facility] [place] [facility] [address] [id number] [place] [address] Sep, [facility] [place] [facility] [address] [id number] [place] [address]- 1016 Sep, [facility] [place] [facility] [address] [id number] [place] [address] Sep, [facility] [place] [facility] [address] [id number] [place] [address]- 4205 Sep, [facility] [place] [facility] [address] [id number] [place] [address]- 8103 Sep, [facility] [place] [facility] [address] [id number] [place] [address]- 4140 Aug, [facility] [place] [facility] [address] [id number] [place] [address]- 3769 Aug, [facility] [place] [facility] [address] [id number] [place] [address]- 8956 Aug, [facility] [place] [facility] [address] [id number] [place] [address]- 1538 Aug, [facility] [place] [facility] [address] [id number] [place] [address]- 2455 Aug, [facility] [place] [facility] [address] [id number] [place] [address]- 8761 Aug, [facility] [place] [facility] [address] [id number] [place] [address]- 4318 Aug, [facility] [place] [facility] [address] [id number] [place] [address]- 3608 Aug, [facility] [place] [facility] [address] [id number] [place] [address]- 9133 Jul, [facility] [place] [facility] [address] [id number] [place] [address]- 5823 Jul, [facility] [place] [facility] [address] [id number] [place] [address]- 2044 30 Jul, 2014 [facility] [place] [facility] [address] [id number] [place] [address]- 4344 Jul, [facility] [place] [facility] [address] [id number] [place] [address]- 8265 Jul, [facility] [place] [facility] [address] [id number] [place] [address]- 2422 Jun, [facility] [place] [facility] [address] [id number] [place] [address]- 3440 Jun, [facility] [place] [facility] [address] [id number] [place] [address]- 2635 Jun, [facility] [place] [facility] [address] [id number] [place] [address]- 4506 Jun, [facility] [place] [facility] [address] [id number] [place] [address]- 5351 Jun, [facility] [place] [facility] [address] [id number] [place] [address]- 0872 May, [facility] [place] [facility] [address] [id number] [place] [address]- 3273 May, [facility] [place] [facility] [address] [id number] [place] [address]- 1607 Apr, [facility] [place] [facility] [address] [id number] [place] [address]- 2429 Apr, [facility] [place] [facility] [address] [id number] [place] [address]- 4318 Apr, [facility] [place] [facility] [address] [id number] [place] [address]- 0594 Apr, [facility] [place] [facility] [address] [id number] [place] [address] Apr, [facility] [place] [facility] [address] [id number] [place] [address]- 1287 Apr, [facility] [place] [facility] [address] [id number] [place] [address]- 0478 Mar, [facility] [place] [facility] [address] [id number] [place] [address]- 6286 Mar, [facility] [place] [facility] [address] [id number] [place] [address]- 5849 Mar, [facility] [place] [facility] [address] [id number] [place] [address]- 4962 Mar, [facility] [place] [facility] [address] [id number] [place] [address]- 8583 Mar, [facility] [place] [facility] [address] [id number] [place] [address]- 9408 Mar, [facility] [place] [facility] [address] [id number] [place] [address]- 5582 Mar, [facility] [place] [facility] [address] [id number] [place] [address]- 2094 Mar, [facility] [place] [facility] [address] [id number] [place] [address]- 4517 Mar, [facility] [place] [facility] [address] [id number] [place] [address]- 6843 Mar, [facility] [place] [facility] [address] [id number] [place] [address]- 0810 Mar, [facility] [place] [facility] [address] [id number] [place] [address]- 2075 Mar, [facility] [place] [facility] [address] [id number] [place] [address]- 0237 Mar, [facility] [place] [facility] [address] [id number] [place] [address]- 9865 Mar, [facility] [place] [facility] [address] [id number] [place] [address]- 7724 Mar, [facility] [place] [facility] [address] [id number] [place] [address]- 2989 Mar, [facility] [place] [facility] [address] [id number] [place] [address]- 5544 February, [facility] [place] [facility] [address] [id number] [place] [address]- 4751 February, [facility] [place] [facility] [address] [id number] [place] [address]- 3583 February, [facility] [place] [facility] [address] [id number] [place] [address]- 2200 February, [facility] [place] [facility] [address] [id number] [place] [address]- 3018 February, [facility] [place] [facility] [address] [id number] [place] [address]- 8711 February, [facility] [place] [facility] [address] [id number] [place] [address]- 1119 February, [facility] [place] [facility] [address] [id number] [place] [address]- 6894 February, [facility] [place] [facility] [address] [id number] [place] [address]- 3137 Jan, [facility] [place] [facility] [address] [id number] [place] [address]- 9068 Jan, [facility] [place] [facility] [address] [id number] [place] [address]- 3960 Dec, [facility] [place] [facility] [address] [id number] [place] [address]- 0981 Dec, [facility] [place] [facility] [address] [id number] [place] [address]- 7383 Dec, [facility] [place] [facility] [address] [id number] [place] [address]- 5042 Dec, [facility] [place] [facility] [address] [id number] [place] [address]- 7867 24 Dec, 2013 [facility] [place] [facility] [address] [id number] [place] [address]- 2663 24 Dec, 2013 [facility] [place] [facility] [address] [id number] [place] [address]- 2160 Dec, [facility] [place] [facility] [address] [id number] [place] [address]- 0796 Dec, [facility] [place] [facility] [address] [id number] [place] [address]- 2772 17 Dec, 2013 [facility] [place] [facility] [address] [id number] [place] [address]- 4066 17 Dec, 2013 [facility] [place] [facility] [address] [id number] [place] [address]- 6282 Dec, [facility] [place] [facility] [address] [id number] [place] [address]- 8244 Dec, [facility] [place] [facility] [address] [id number] [place] [address]- 7667 Dec, [facility] [place] [facility] [address] [id number] [place] [address]- 6223 Dec, [facility] [place] [facility] [address] [id number] [place] [address]- 0632 Nov, [facility] [place] [facility] [address] [id number] [place] [address]- 1460 Nov, [facility] [place] [facility] [address] [id number] [place] [address]- 4001 Oct, [facility] [place] [facility] [address] [id number] [place] [address]- 2405 Oct, [facility] [place] [facility] [address] [id number] [place] [address]- 3929 Oct, [facility] [place] [facility] [address] [id number] [place] [address]- 0318 Oct, [facility] [place] [facility] [address] [id number] [place] [address]- 7019 16 Oct, 2013 [facility] [place] [facility] [address] [id number] [place] [address]- 2831 Oct, [facility] [place] [facility] [address] [id number] [place] [address]- 9166 Oct, [facility] [place] [facility] [address] [id number] [place] [address]- 1541 31 Sep, 2013 [facility] [place] [facility] [address] [id number] [place] [address]- 5011 30 Sep, 2013 [facility] [place] [facility] [address] [id number] [place] [address]- 0259 30 Sep, 2013 [facility] [place] [facility] [address] [id number] [place] [address]- 6279 Sep, [facility] [place] [facility] [address] [id number] [place] [address]- 2149 Sep, [facility] [place] [facility] [address] [id number] [place] [address]- 3115 Sep, [facility] [place] [facility] [address] [id number] [place] [address]- 9761 Sep, [facility] [place] [facility] [address] [id number] [place] [address]- 2091 Sep, [facility] [place] [facility] [address] [id number] [place] [address]- 3867 Sep, [facility] [place] [facility] [address] [id number] [place] [address] 2540 Sep, [facility] [place] [facility] [address] [id number] [place] [address]- 1816 Sep, [facility] [place] [facility] [address] [id number] [place] [address]- 6116 Sep, [facility] [place] [facility] [address] [id number] [place] [address]- 9774 Sep, [facility] [place] [facility] [address] [id number] [place] [address]- 3903 16 Sep, 2013 [facility] [place] [facility] [address] [id number] [place] [address]- 4783 Sep, [facility] [place] [facility] [address] [id number] [place] [address]- 9690 Sep, [facility] [place] [facility] [address] [id number] [place] [address]- 5898 Sep, [facility] [place] [facility] [address] [id number] [place] [address]- 9572 Sep, [facility] [place] [facility] [address] [id number] [place] [address]- 3153 Sep, [facility] [place] [facility] [address] [id number] [place] [address]- 3119 Aug, [facility] [place] [facility] [address] [id number] [place] [address]- 9839 Aug, [facility] [place] [facility] [address] [id number] [place] [address]- 7980 Aug, [facility] [place] [facility] [address] [id number] [place] [address]- 5755 Aug, [facility] [place] [facility] [address] [id number] [address]- 3878 Aug, [facility] [place] [facility] [address] [id number] [place] [address]- 0610 Aug, [facility] [place] [facility] [address] [id number] [place] [address]- 7711 Aug, [facility] [place] [facility] [address] [id number] [place] [address]- 5770 Aug, [facility] [place] [facility] [address] [id number] [place] [address]- 4540 Aug, [facility] [place] [facility] [address] [id number] [place] [address]- 2086 Aug, [facility] [place] [facility] [address] [id number] [place] [address]- 0999 Aug, [facility] [place] [facility] [address] [id number] [place] [address]- 4460 Aug, [facility] [place] [facility] [address] [id number] [place] [address]- 7786 Aug, [facility] [place] [facility] [address] [id number] [place] [address]- 8290 Aug, [facility] [place] [facility] [address] [id number] [place] [address]- 2155 Aug, [facility] [place] [facility] [address] [id number] [place] [address]- 4499 Aug, [facility] [place] [facility] [address] [facility] [id number] [place] [address]- 4879 Aug, [facility] [place] [facility] [address] [id number] [place] [address]- 3525 Jul, [facility] [place] [facility] [address] [id number] [place] [address]- 8680 Jul, [facility] [place] [facility] [address] [facility] [id number] [place] [address]- 2665 Jul, [facility] [place] [facility] [address] [id number] [place] [address]- 9304 Jul, [facility] [place] [facility] [address] [id number] [address]- 6850 Jul, [facility] [place] [facility] [address] [id number] [place] [address]- 9615 Jul, [facility] [place] [facility] [address] [facility] [id number] [place] 9029 Jul, [facility] [place] [facility] [address] [id number] [place] [address] Jun, [facility] [address] [id number] [place] [address]- 2908 20 Jun, 2012 [facility] [address] [id number] [place] [address]- 0579 17 Jun, 2012 [facility] [address] [id number] [place] [address]- 2510 10 Jun, 2012 [facility] [address] [id number] [place] [address]- 6132 06 Jun, 2012 [facility] [address] [id number] [place] [address]- 2811 06 Jun, 2012 [facility] [address] [id number] [place] [address]- 3594 05 Jun, 2012 [facility] [address] [facility] [id number] [place] [address]- 0374 03 Jun, 2012 [facility] [address] [facility] [id number] [place] [address]- 2289 27 May, 2013 [facility] [address] [facility] [id number] [place] [address]- 6877 May, [facility] [address] [id number] [address]- 1471 15 May, 2013 [facility] [address] [facility] [id number] [place] [address]- 8858 14 May, 2013 [facility] [address] [id number] [place] [address]- 2961 May, [facility] [address] [facility] [id number] [place] [address]- 6782 May, [facility] [address] [facility] [id number] [place] [address]- 3898 May, [facility] [address] [facility] [id number] [place] [address]- 8035 May, IMMUNIZATIONS No Known Immunizations SOCIAL HISTORY Never Assessed REASON FOR VISIT edison PLAN OF CARE VITAL SIGNS MEDICATIONS Unknown [...] in heel of feet Surgical History appendectomy [facility] 1995 Surgical History salpingectomy [facility] Surgical History bladder surgery-stretch [facility] 2003 Surgical History exploratory laparoscopy [facility] 1995 Surgical History amputation, toe (R great) Surgical History amputation, (R forefoot) 2014 Surgical History amputation, toe Left second 12/2016 Surgical History amputation, 4th left toe 02/2017 Hospitalization History Left foot cellulitis, left 2nd toe amputation-[facility] 12/23 Hospitalization History Surgery Hospitalizations
--- OUTSIDE RECORDS SUMMARY | 2018-08-22 09:21 | XMS REPORT ---
Author Author DOMITILA UMANA Organization [facility] Address [address] [place] [address] Care Team Providers Care Milking Machine Technician Name Role Phone DOMITILA UMANA Unavailable PROBLEMS Type Condition ICD9-CM Code CFH87-SY Code Onset Dates Condition Status SNOMED Code Problem Subclinical hypothyroidism E03.9 Active 14698485 Problem Hypertriglyceridemia E78.1 Active 529717104 Problem Type 2 diabetes mellitus with diabetic polyneuropathy E11.42 Active 875558294 Problem Type 2 diabetes mellitus with diabetic chronic 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 Active 241005483 Problem Other chronic pain G89.29 Active 65443426 Problem Type 2 diabetes mellitus with other skin complications E11.628 Active 01469690 Problem Pain in left foot M79.672 Active 04334795 Problem Irregular menstrual cycle N92.6 Active 49950381 Problem Pain in right foot M79.671 Active 63080395 Problem Tonsillolith J35.8 Active 6997211 Problem Chronic prescription opiate use Z79.891 Active 829358621 Problem Seasonal allergic rhinitis due to pollen J30.1 Active 57056293 Problem Asthma exacerbation, mild J45.901 Active 450454522 Problem Chronic kidney disease, stage III (moderate) N18.3 Active 853527904 Problem Chronic migraine G43.709 Active 25821127 Problem Moderate persistent asthma without complication J45.40 Active 560298798 Problem Intrinsic eczema L20.84 Active 74287667 Problem Severe episode of recurrent major depressive disorder, without psychotic features F33.2 Active 49997891 Problem Non-pressure chronic ulcer of right heel and midfoot limited to breakdown of skin L97.411 Active 453028360 Problem Ulcer of right heel L97.419 Active 661855587 Problem Obesity E66.9 Active 609071218 Problem Type 2 diabetes mellitus with foot ulcer E11.621 Active 65126302 Problem Essential hypertension I10 Active 29630741 Problem Anxiety disorder, unspecified F41.9 Active 349930028 Problem Type 2 diabetes mellitus with other specified complication E11.69 Active 068976242 Problem Status post amputation of toe of left foot Z89.422 Active 791678378 Problem DM neuro manif type II E11.49 Active 37197092 Problem History of amputation of hallux Z89.419 Active 382212600 ALLERGIES Substance Reaction Event Type Date Status Penicillin V Potassium Unknown Drug Allergy Oct, Active ENCOUNTERS Encounter Location Date Diagnosis [place] [id number] [place] [address] 51665- 3612 Mar, [facility] [address] 74991- 2315 Mar, Moderate persistent asthma without complication J45.40 [facility] [address] 52180- 2253 Mar, [facility] [id number] [place] [address] 53110- 4795 February, Chronic migraine G43.709 [facility] [address] 34050- 2205 February, Chronic migraine G43.709 [facility] [id number] [place] [address] 15229- 3975 February, [facility] [id number] [place] [address] 60035- 0129 February, [facility] [id number] [place] [address] 68190- 0559 February, Type 2 diabetes mellitus with diabetic polyneuropathy E11.42 ; Moderate persistent asthma without complication J45.40 ; Type 2 diabetes mellitus with foot ulcer E11.621 ; Non-pressure chronic ulcer of right heel and midfoot limited to breakdown of skin L97.411 ; Chronic migraine G43.709 and BMI 60.0-69.9, adult Z68.44 [facility] [id number] [place] [address] 25404 -9183 Jan, Asthma exacerbation, mild J45.901 ; Seasonal allergic rhinitis due to pollen J30.1 and BMI 60.0-69.9, adult Z68.44 [facility] [id number] [place] [address] 91320- 9012 Jan, [facility] [address] 65043- 9077 Jan, Other chronic pain G89.29 [facility] [address] 84806- 0232 Dec, Type 2 diabetes mellitus with diabetic polyneuropathy E11.42 [facility] [id number] [place] [address] 80571- 8279 Dec, Type 2 diabetes mellitus with diabetic polyneuropathy E11.42 [place] [address] 94461- 6868 Dec, [place] [id number] [place] [address] 12487- 8793 Dec, [facility] [id number] [place] [address] 31024- 9787 Dec, Chronic kidney disease, stage III (moderate) N18.3 [facility] [id number] [place] [address] 70008 -5068 09 Dec, 2017 Nausea R11.0 and Diarrhea, unspecified type R19.7 [facility] [id number] [place] [address] 57332- 0834 Dec, Chronic kidney disease, stage III (moderate) N18.3 and Type 2 diabetes mellitus with diabetic polyneuropathy E11.42 [facility] [id number] [place] [address] 07761- 2062 Dec, [facility] [address] 87157- 9445 Nov, Ulcer of right heel L97.419 and Type 2 diabetes mellitus with diabetic polyneuropathy E11.42 [facility] [id number] [place] [address] [id number] Nov, Dental examination Z01.20 [facility] [address] [address] 20[address] Nov, Open wound of right foot, initial encounter S91.301A [facility] [id number] [place] [address] 29840 -9799 Nov, Open wound of right foot, initial encounter S91.301A ; Non- intractable vomiting with nausea, unspecified vomiting type R11.2 and BMI 60.0- 69.9, adult Z68.44 [facility] [id number] [place] [address] 07560- 5337 Nov, [place] [id number] [place] [address] 74856- 8203 16 Nov, 2017 Other chronic pain G89.29 [place] [id number] [place] [address] 23035- 1050 Oct, Cellulitis of right lower limb L03.115 [facility] [id number] [place] [address] 64753- 1377 Oct, [place] [id number] [place] [address] 96511- 2311 Oct, [place] [address] [place] [address] 19893- 6258 Oct, Cat scratch W55.03XA ; Cellulitis of right lower limb L03.115 ; Acute nasopharyngitis J00 ; BMI 60.0-69.9, adult Z68.44 and Cough R05 [facility] [address] [place] [address] 93361- 2853 Oct, Cat scratch W55.03XA ; Cutaneous abscess of right lower extremity L02.415 and Cellulitis of right lower limb L03.115 [place] [address] [place] [address] 78781- 9602 Oct, Type 2 diabetes mellitus with diabetic polyneuropathy E11.42 [place] [id number] [place] [address] 70423- 7605 Oct, Other chronic pain G89.29 [place] [id number] [place] [address] 05271- 0111 Aug, [place] [id number] [place] [address] 95397- 0052 Jul, Other chronic pain G89.29 [place] [address] 54301- 7287 Jul, [place] [id number] [place] [address] 01284- 7825 Jul, Chronic kidney disease, stage III (moderate) N18.3 [place] [id number] [place] [address] 06576- 4459 Jul, Type 2 diabetes mellitus with diabetic polyneuropathy E11.42 ; Essential hypertension I10 ; Irregular menstrual cycle N92.6 ; Hypertriglyceridemia E78.1 ; Anxiety disorder, unspecified F41.9 ; Severe episode of recurrent major depressive disorder, without psychotic features F33.2 ; Tonsillolith J35.8 ; Intrinsic eczema L20.84 ; Subclinical hypothyroidism E03.9 ; Viral pharyngitis J02.9 and Encounter for immunization Z23 [place] [id number] [place] [address] 45951- 5753 13 Jun, 2017 Essential hypertension I10 [place] [id number] [place] [address] 94388- 9359 08 Jun, 2017 [place] [id number] [place] [address] 02439- 3181 Jun, [place] [id number] [place] [address] 83446- 0481 May, Moderate persistent asthma without complication J45.40 [place] [id number] [place] [address] 48970- 7591 May, Pain in right foot M79.671 ; Pain in left foot M79.672 ; Other chronic pain G89.29 and Chronic prescription opiate use Z79.891 [facility] [id number] [place] [address] 75710- 5031 May, [facility] [address] 80661- 3277 May, [facility] [id number] [place] [address] 91769- 3417 Apr, [facility] [address] 33970- 9719 Apr, Chronic migraine G43.709 [facility] [address] 10721- 4954 Apr, Essential hypertension I10 ; Hypertriglyceridemia E78.1 and Chronic migraine G43.709 [facility] [address] 09862- 9685 Apr, [facility] [id number] [place] [address] 42890- 1547 Apr, Sore throat J02.9 [facility] [id number] [place] [address] 55982- 5352 Apr, [facility] [id number] [place] [address] 16493- 9946 Mar, Strep pharyngitis J02.0 and Non-intractable vomiting with nausea, unspecified vomiting type R11.2 [facility] [id number] [place] [address] 54778- 2449 Mar, [facility] [id number] [place] [address] 40779- 1873 Mar, [facility] [id number] [place] [address] 04987- 2779 Mar, [facility] [id number] [place] [address] 84676- 4186 Mar, Type 2 diabetes mellitus with diabetic polyneuropathy E11.42 ; Moderate persistent asthma without complication J45.40 ; Status post amputation of toe of left foot Z89.422 ; Acute seasonal allergic rhinitis, unspecified trigger J30.2 and Left shoulder pain, unspecified chronicity M25.512 [place] [id number] [place] [address] 83362- 6502 Mar, [place] [id number] [place] [address] 11608- 0111 February, Pre-op evaluation Z01.818 ; Type 2 diabetes mellitus with diabetic polyneuropathy E11.42 and Type 2 diabetes mellitus with foot ulcer E11.621 [place] [address] 48033- 3927 February, [place] [address] 84052- 1972 February, [place] [address] 98304- 1441 February, Toe infection L08.9 and Type 2 diabetes mellitus with other specified complication E11.69 [place] [id number] [place] [address] 83671- 3989 February, [place] [id number] [place] [address] 04719- 0977 Jan, Type 2 diabetes mellitus with diabetic polyneuropathy E11.42 [place] [id number] [place] [address] 21275- 6686 Jan, [place] [id number] [place] [address] 86907- 1103 Jan, Right upper quadrant pain R10.11 and Intractable vomiting with nausea, unspecified vomiting type R11.2 [place] [id number] [place] [address] 99818- 8362 Jan, Hypertriglyceridemia E78.1 and Essential hypertension I10 [place] [address] 78493- 2938 Jan, Essential hypertension I10 ; Type 2 diabetes mellitus with diabetic polyneuropathy E11.42 and Hypertriglyceridemia E78.1 [facility] [address] 51779- 7972 Dec, Type 2 diabetes mellitus with diabetic polyneuropathy E11.42 [facility] [id number] [place] [address] 24414- 5016 Dec, Hypertriglyceridemia E78.1 ; Essential hypertension I10 ; Type 2 diabetes mellitus with diabetic polyneuropathy E11.42 ; Anxiety disorder , unspecified F41.9 and Moderate persistent asthma without complication J45.40 [facility] [address] 96756- 1860 Dec, Type 2 diabetes mellitus with diabetic polyneuropathy E11.42 [facility] [address] [id number] Dec, [facility] [address] 52959- 5526 Nov, [facility] [address] 27076- 8132 Nov, [facility] [address] 64725- 6238 Nov, [facility] [id number] [place] [address] 27728- 8864 Nov, Toe infection L08.9 [facility] [address] 59391- 6641 Nov, [facility] [address] 36509- 6645 Oct, History of amputation of hallux Z89.419 [facility] [address] 59477- 3704 Oct, Type 2 diabetes mellitus with diabetic polyneuropathy E11.42 [facility] [address] 28037- 7701 Oct, Type 2 diabetes mellitus with diabetic polyneuropathy E11.42 [facility] [address] [address]- 6383 Oct, Acute osteomyelitis of left foot M86.172 ; Pre-op exam Z01.818 and Type 2 diabetes mellitus with diabetic polyneuropathy E11.42 [facility] [address] [place] [address] 95739- 6375 Oct, Foot ulcer, left, with unspecified severity L97.529 ; Acute osteomyelitis of left foot M86.172 and Type 2 diabetes mellitus with diabetic polyneuropathy E11.42 [facility] [id number] [place] [address] 42980- 9687 Sep, [facility] [id number] [place] [address] 20046- 2937 Sep, Intractable vomiting with nausea, unspecified vomiting type R11.2 and Right upper quadrant pain R10.11 [facility] [id number] [place] [address] 44019- 0538 Aug, [facility] [id number] [place] [address] 23085- 9851 Jul, [facility] [id number] [place] [address] 51673- 8779 Jul, Preop examination Z01.818 [facility] [id number] [place] [address] 60003- 9445 Jul, [facility] [address] [place] [address] 83264- 3954 Jul, [facility] [id number] [place] [address] 98732- 3040 Jul, Chronic osteomyelitis of left foot M86.672 and Ulcer of left foot, with unspecified severity L97.529 [facility] [address] [place] [address] 15608- 1483 Jul, Non-pressure chronic ulcer of other part of left foot with unspecified severity L97.529 [facility] [id number] [place] [address] 63765- 7212 Jul, [facility] [id number] [place] [address] 59510- 2466 Jul, [facility] [id number] [place] [address] 31805- 2844 Jun, [facility] [id number] [place] [address] 40272- 4645 Jun, [facility] [id number] [place] [address] 87353- 1083 Jun, [facility] [id number] [place] [address] 65324- 9196 Jun, Right upper quadrant pain R10.11 [facility] [id number] [place] [address] 39469- 9040 Jun, [facility] [id number] [place] [address] 70191- 9272 Jun, Intractable vomiting with nausea, unspecified vomiting type R11.2 [facility] [id number] [place] [address] 44986- 7599 13 Jun, 2016 Right upper quadrant pain R10.11 ; Migraine with aura and with status migrainosus, not intractable G43.101 and Intractable vomiting with nausea, unspecified vomiting type R11.2 [facility] [id number] [place] [address] 21859- 3256 Jun, [facility] [id number] [place] [address] 05031- 3196 Jun, Gastroenteritis K52.9 [facility] [id number] [place] [address] 13736- 3545 May, [facility] [id number] [place] [address] 72690- 6716 May, Hypertriglyceridemia E78.1 ; Essential hypertension I10 ; Type 2 diabetes mellitus with diabetic polyneuropathy E11.42 ; Moderate persistent asthma without complication J45.40 ; Type 2 diabetes mellitus with foot ulcer E11.621 ; Other chronic pain G89.29 ; Pain in right leg M79.604 ; Pain of left leg M79.605 ; Rash and nonspecific skin eruption R21 and Anxiety disorder, unspecified F41.[address] 96426- 1751 May, Essential hypertension I10 ; Hypertriglyceridemia E78.1 ; Upper respiratory infection J06.9 ; Subclinical hypothyroidism E03.9 and Type 2 diabetes mellitus with diabetic polyneuropathy E11.[address] 63170- 7929 Apr, Hypertriglyceridemia E78.1 ; Subclinical hypothyroidism E03.9 ; Essential hypertension I10 and Type 2 diabetes mellitus with diabetic polyneuropathy E11.42 [place] [address] 52153- 7177 Mar, [place] [address] 02213- 8777 Mar, Ulcer of right heel L97.419 [place] [address] 56665- 8597 Mar, [place] [id number] [place] [address] 24838- 4040 Mar, [place] [address] 86245- 0527 February, [place] [address] 22874- 1132 February, Ulcer of right heel L97.419 and DM neuro manif type II E11.49 [place] [address] 92339- 8592 Jan, [place] [address] 17441- 6694 Jan, Ulcer of right heel L97.419 ; Type 2 diabetes mellitus with foot ulcer E11.621 and Non-pressure chronic ulcer of other part of left foot with unspecified severity L97.529 [facility] [id number] [place] [address] 19067- 1125 Jan, [facility] [id number] [place] [address] 43465- 4272 Jan, [place] [address] 67773- 9232 Jan, Infection of toenail L03.039 [place] [address] 34149- 2162 Jan, Blister of toe of left foot, initial encounter S90.425A and Type 2 diabetes mellitus with diabetic polyneuropathy E11.42 [place] [address] 54835- 7740 Jan, [facility] [id number] [place] [address] 58203 -0503 Jan, Sore throat J02.9 and Strep pharyngitis J02.0 [place] [id number] [place] [address] 30464- 7685 Dec, Type 2 diabetes mellitus with diabetic polyneuropathy E11.42 ; Upper respiratory infection J06.9 ; Cough R05 and Asthma exacerbation J45.901 [place] [id number] [place] [address] 58199- 5272 Oct, [place] [id number] [place] [address] 86163- 4277 Oct, [facility] [id number] [place] [address] 18906- 6169 Oct, [facility] [id number] [place] [address] 44531- 4636 Oct, [facility] [address] [place] [address]- 2218 Sep, [place] [id number] [place] [address] 71764- 9156 Aug, Anxiety disorder, unspecified F41.9 and Obesity E66.9 [place] [address] 07259- 8943 Aug, Moderate persistent asthma without complication J45.40 [place] [address] 62795- 4430 Aug, Anxiety disorder, unspecified F41.9 [place] [address] 54156- 9771 Aug, Chronic migraine G43.709 ; Encounter for immunization Z23 ; Hypertriglyceridemia E78.1 ; Type 2 diabetes mellitus with diabetic polyneuropathy E11.42 ; Moderate persistent asthma without complication J45.40 and Morbid obesity E66.01 [place] [address] 00777- 9528 Jul, [place] [address] 33120- 3430 Jul, [place] [address] 79419- 1885 Jul, [place] [id number] [place] [address] 87714- 7787 Jul, Subclinical hypothyroidism E03.9 [place] [address] 61277- 3608 Jun, Essential hypertension, benign 401.1 ; Diabetic ulcer of lower extremity 250.80 ; Asthma 493.90 ; Diabetes mellitus type II, uncontrolled 250.02 and Hyperlipidemia associated with type 2 diabetes mellitus 250.80 [place] [id number] [place] [address] 11053- 0952 Jun, [place] [address] 10613- 7250 Jun, [facility] [address] [address]- 8142 May, [facility] [id number] [place] [address] 45077- 5653 Apr, [facility] [id number] [place] [address] 97389- 6893 Apr, Viral upper respiratory infection 465.9 and Asthma 493.90 [facility] [id number] [place] [address] 25666- 4545 Mar, Abnormal ankle brachial index 796.4 [facility] [id number] [place] [address] 85625- 6236 February, [facility] [id number] [place] [address] 18321- 2709 February, Essential hypertension, benign 401.1 [facility] [id number] [place] [address] 72510- 6199 February, Diabetic peripheral neuropathy 250.60 ; Ulcer of heel and midfoot 707.14 and Decreased pedal pulses 785.9 [facility] [address] [place] [address] 30703- 4429 February, [facility] [id number] [place] [address] 01474- 0968 February, [facility] [address] [address]- 0682 Jan, [facility] [address] [address]- 5166 Jan, [facility] [id number] [place] [address] 86755- 0285 Dec, [facility] [address] [address]- 2054 Dec, [facility] [id number] [place] [address] 05458- 4762 Nov, [facility] [place] [facility] [address] [id number] [place] [address]- 7106 Nov, 2014 [facility] [place] [facility] [address] [id number] [place] [address]- 1886 Nov, 2014 [facility] [place] [facility] [address] [id number] [place] [address]- 5422 Nov, 2014 [facility] [place] [facility] [address] [id number] [place] [address]- 7987 Nov, 2014 [facility] [place] [facility] [address] [id number] [place] [address]- 6260 Nov, [facility] [place] [facility] [address] [id number] [place] [address]- 6312 Nov, [facility] [place] [facility] [address] [id number] [place] [address]- 7589 Nov, [facility] [place] [facility] [address] [id number] [place] [address]- 6244 Nov, [facility] [place] [facility] [address] [id number] [place] [address]- 0185 Oct, [facility] [place] [facility] [address] [id number] [place] [address]- 9604 Oct, [facility] [place] [facility] [address] [id number] [place] [address] Oct, [facility] [place] [facility] [address] [id number] [place] [address] Oct, [facility] [place] [facility] [address] [id number] [place] [address] Oct, [facility] [place] [facility] [address] [id number] [place] [address] Oct, [facility] [place] [facility] [address] [id number] [place] [address] Oct, [facility] [place] [facility] [address] [id number] [place] [address] Oct, [facility] [address] [id number] [place] [address] Oct, [facility] [address] [id number] [place] [address] Oct, [facility] [address] [id number] [place] [address] Oct, [facility] [address] [id number] [place] [address] Oct, [facility] [facility] [address] [id number] [place] [address] Oct, [facility] [address] [id number] [place] [address] Sep, [facility] [address] [id number] [place] [address] 8332 Sep, [facility] [address] [id number] [place] [address] 7020 Sep, [facility] [address] [id number] [place] [address] 8170 Sep, [facility] [address] [id number] [place] [address] 2875 Sep, [facility] [address] [id number] [place] [address] 4530 Sep, [facility] [address] [id number] [place] [address] Sep, [facility] [place] [facility] [address] [id number] [place] [address]359 Sep, [facility] [address] [id number] [place] [address] 7074 Sep, [facility] [address] [id number] [place] [address] 2188 Sep, [facility] [place] [facility] [address] [id number] [place] [address] Sep, [facility] [place] [facility] [address] [id number] [place] [address]- 6295 Sep, [facility] [place] [facility] [address] [id number] [place] [address]- 8001 Sep, [facility] [place] [facility] [address] [id number] [place] [address]- 1221 Sep, [facility] [place] [facility] [address] [id number] [place] [address] Sep, [facility] [place] [facility] [address] [id number] [place] [address]- 2492 Sep, [facility] [place] [facility] [address] [id number] [place] [address]- 8043 Aug, [facility] [place] [facility] [address] [id number] [place] [address]- 7165 Aug, [facility] [place] [facility] [address] [id number] [place] [address]- 8692 Aug, [facility] [place] [facility] [address] [id number] [place] [address]- 6181 Aug, [facility] [place] [facility] [address] [id number] [place] [address]- 0340 Aug, [facility] [place] [facility] [address] [id number] [address] Aug, [facility] [place] [facility] [address] [id number] [place] [address]- 6069 Aug, [facility] [place] [facility] [address] [id number] [place] [address]- 5677 Aug, [facility] [place] [facility] [address] [id number] [place] [address] Jul, [facility] [place] [facility] [address] [id number] [address] Jul, [facility] [place] [facility] [address] [id number] [place] [address]- 2791 30 Jul, 2014 [facility] [place] [facility] [address] [id number] [place] [address]- 8414 Jul, [facility] [place] [facility] [address] [id number] [place] [address] 1962 Jul, [facility] [place] [facility] [address] [id number] [place] [address]- 7199 Jun, [facility] [place] [facility] [address] [id number] [place] [address]- 0293 Jun, [facility] [place] [facility] [address] [id number] [place] [address]- 7327 Jun, [facility] [place] [facility] [address] [id number] [place] [address]- 1556 Jun, [facility] [place] [facility] [address] [id number] [place] [address]- 4958 Jun, [facility] [place] [facility] [address] [id number] [place] [address]- 5988 May, [facility] [place] [facility] [address] [id number] [place] [address]- 8060 May, [facility] [place] [facility] [address] [id number] [place] [address]- 9709 Apr, [facility] [place] [facility] [address] [id number] [place] [address]- 5072 Apr, [facility] [place] [facility] [address] [id number] [place] [address]- 1007 Apr, [facility] [place] [facility] [address] [id number] [place] [address]- 2476 Apr, [facility] [place] [facility] [address] [id number] [place] [address]- 0712 Apr, [facility] [place] [facility] [address] [id number] [place] [address]- 3860 Apr, [facility] [place] [facility] [address] [id number] [place] [address]- 5735 Mar, [facility] [place] [facility] [address] [id number] [place] [address]- 7178 Mar, [facility] [place] [facility] [address] [id number] [place] [address]- 5548 Mar, [facility] [place] [facility] [address] [id number] [place] [address]- 2504 Mar, [facility] [place] [facility] [address] [id number] [place] [address]- 4723 Mar, [facility] [place] [facility] [address] [id number] [place] [address]- 3201 Mar, [facility] [place] [facility] [address] [id number] [place] [address]- 9966 Mar, [facility] [place] [facility] [address] [id number] [place] [address]- 7363 Mar, [facility] [place] [facility] [address] [id number] [place] [address]- 9155 Mar, [facility] [place] [facility] [address] [id number] [place] [address]- 4835 Mar, [facility] [place] [facility] [address] [id number] [place] [address]- 4308 Mar, [facility] [place] [facility] [address] [id number] [place] [address]- 3569 Mar, [facility] [place] [facility] [address] [id number] [place] [address]- 3306 Mar, [facility] [place] [facility] [address] [id number] [place] [address]- 2505 Mar, [facility] [place] [facility] [address] [id number] [place] [address]- 0985 Mar, [facility] [place] [facility] [address] [id number] [place] [address]- 3511 Mar, [facility] [place] [facility] [address] [id number] [place] [address]- 2496 February, [facility] [place] [facility] [address] [id number] [place] [address]- 2623 February, [facility] [place] [facility] [address] [id number] [place] [address]- 5871 February, [facility] [place] [facility] [address] [id number] [place] [address]- 6901 February, [facility] [place] [facility] [address] [id number] [place] [address]- 7266 February, [facility] [place] [facility] [address] [id number] [place] [address]- 1348 February, [facility] [place] [facility] [address] [id number] [place] [address]- 9317 February, [facility] [place] [facility] [address] [id number] [place] [address]- 3567 February, [facility] [place] [facility] [address] [id number] [place] [address]- 9761 Jan, [facility] [place] [facility] [address] [id number] [place] [address]- 7722 Jan, [facility] [place] [facility] [address] [id number] [place] [address] Dec, [facility] [place] [facility] [address] [id number] [place] [address]- 0353 Dec, [facility] [place] [facility] [address] [id number] [place] [address]- 8290 Dec, [facility] [place] [facility] [address] [id number] [place] [address]- 3014 Dec, [facility] [place] [facility] [address] [id number] [place] [address]- 3367 24 Dec, 2013 [facility] [place] [facility] [address] [id number] [place] [address]- 7113 24 Dec, 2013 [facility] [place] [facility] [address] [id number] [place] [address]- 1270 19 Dec, 2013 [facility] [place] [facility] [address] [id number] [place] [address]- 2591 19 Dec, 2013 [facility] [place] [facility] [address] [id number] [place] [address]- 7725 17 Dec, 2013 [facility] [place] [facility] [address] [id number] [place] [address]- 2558 17 Dec, 2013 [facility] [place] [facility] [address] [id number] [place] [address]- 8357 14 Dec, 2013 [facility] [place] [facility] [address] [id number] [place] [address]- 3317 14 Dec, 2013 [facility] [place] [facility] [address] [id number] [place] [address]- 6628 Dec, [facility] [place] [facility] [address] [id number] [place] [address]- 9919 Dec, [facility] [place] [facility] [address] [id number] [place] [address]- 9725 Nov, [facility] [place] [facility] [address] [id number] [place] [address]- 0503 Nov, [facility] [place] [facility] [address] [id number] [place] [address]- 5471 Oct, [facility] [place] [facility] [address] [id number] [place] [address]- 4691 Oct, [facility] [place] [facility] [address] [id number] [place] [address]- 4615 Oct, [facility] [place] [facility] [address] [id number] [place] [address]- 8192 Oct, [facility] [place] [facility] [address] [id number] [place] [address]- 6131 Oct, [facility] [address] [id number] [place] [address]- 7109 Oct, [facility] [address] [id number] [place] [address]- 3959 Oct, [facility] [address] [id number] [place] [address]- 8007 Sep, [facility] [address] [id number] [place] [address]- 5092 Sep, [facility] [address] [id number] [place] [address]- 5419 Sep, [facility] [address] [id number] [place] [address]- [address] Sep, [facility] [address] [id number] [place] [address]- 3229 Sep, [facility] [address] [id number] [place] [address]- 9567 Sep, [facility] [address] [id number] [place] [address]- 7557 Sep, [facility] [address] [id number] [place] [address]- [address]167 Sep, [facility] [address] [id number] [place] [address]- 9435 Sep, [facility] [address] [id number] [place] [address]- 1424 Sep, [facility] [place] [facility] [address] [id number] [place] [address]- 3200 Sep[facility] [place] [facility] [address] [id number] [place] [address]- 8300 Sep, [facility] [address] [id number] [place] [address]- 9939 Sep, [facility] [place] [facility] [address] [id number] [place] [address]- 4429 16 Sep, 2013 [facility] [place] [facility] [address] [id number] [place] [address]- 4956 Sep, [facility] [place] [facility] [address] [id number] [place] [address]- 6564 Sep, [facility] [place] [facility] [address] [id number] [place] [address]- 3438 Sep, [facility] [place] [facility] [address] [id number] [place] [address]- 8443 Sep, [facility] [place] [facility] [address] [id number] [place] [address]- 7396 Sep, [facility] [place] [facility] [address] [id number] [place] [address]- 6405 Aug, [facility] [place] [facility] [address] [id number] [place] [address]- 3670 Aug, [facility] [place] [facility] [address] [id number] [place] [address]- 3636 Aug, [facility] [place] [facility] [address] [id number] [place] [address]- 1182 Aug, [facility] [place] [facility] [address] [id number] [place] [address]- 7219 Aug, [facility] [place] [facility] [address] [id number] [place] [address]- 7775 Aug, [facility] [place] [facility] [address] [id number] [place] [address]- 9610 Aug, [facility] [place] [facility] [address] [id number] [place] [address]- 4407 Aug, [facility] [place] [facility] [address] [id number] [place] [address]- 8655 Aug, [facility] [place] [facility] [address] [id number] [place] [address]- 2657 Aug, [facility] [place] [facility] [address] [id number] [place] [address]- 1896 Aug, [facility] [place] [facility] [address] [id number] [place] [address]- 0644 Aug, [facility] [place] [facility] [address] [id number] [place] [address]- 6737 Aug, [facility] [place] [facility] [address] [id number] [place] [address]- 3066 Aug, [facility] [place] [facility] [address] [id number] [place] [address]- 5637 Aug, [facility] [place] [facility] [address] [id number] [place] [address]- 5023 Aug, [facility] [place] [facility] [address] [id number] [place] [address]- 6252 Aug, [facility] [place] [facility] [address] [id number] [place] [address]- 7840 Jul, [facility] [place] [facility] [address] [id number] [place] [address]- 4536 Jul, [facility] [place] [facility] [address] [facility] [id number] [place] [address]- 9374 Jul, [facility] [place] [facility] [address] [id number] [place] [address]- 5632 Jul, [facility] [place] [facility] [address] [id number] [place] [address]- 4508 Jul, [facility] [place] [facility] [address] [id number] [place] [address]- 1008 Jul, [facility] [place] [facility] [address] [facility] [id number] [place] [address]- 9837 Jul, [facility] [place] [facility] [address] [id number] [place] [address] Jun, [facility] [address] [id number] [place] [address]- 9059 20 Jun, 2012 [facility] [address] [id number] [place] [address]- 3511 17 Jun, 2012 [facility] [address] [facility] [id number] [place] [address]- 3338 10 Jun, 2012 [facility] [address] [id number] [place] [address]- 4828 06 Jun, 2012 [facility] [address] [id number] [place] [address]- 9257 06 Jun, 2012 [facility] [address] [id number] [place] [address]- 4044 05 Jun, 2012 [facility] [address] [facility] [id number] [place] [address]- 2402 03 Jun, 2012 [facility] [address] [facility] [id number] [address]- 2395 27 May, 2013 [facility] [address] [facility] [id number] [place] [address]- 9025 May, [facility] [address] [facility] [id number] [address]- 1730 15 May, 2013 [facility] [address] [facility] [id number], [place] [address]- 8277 14 May, 2013 [facility] [address] [facility] [id number], [place] [address]- 9942 May, [facility] [address] [facility] [id number] [address]- 2587 May, [facility] [address] [facility] [id number], [place] [address]- 6236 09 May, 2013 [facility] [address] [facility] [id number] [address]- 6126 May, IMMUNIZATIONS No Known Immunizations SOCIAL HISTORY Never Assessed REASON FOR VISIT possible infection--tcuppettRN, -Cat sctratched pts right lower leg this weekend and now area is infected. PLAN OF CARE Activity Details Follow Up 2 - 3 Days with Gato f/u cellulitis Reason: VITAL SIGNS Height 62 in 2017-11-01 Weight 348.3 lbs 2017-11-01 Temperature 98.2 degrees Fahrenheit 2017-11-01 Heart Rate 76 bpm 2017-11-01 Respiratory Rate 20 2017-11-01 BMI 63.70 kg/m2 2017-11-01 Blood pressure systolic 130 mmHg 2017-11-01 Blood pressure diastolic 88 mmHg 2017-11-01 MEDICATIONS Medication Instructions Dosage Frequency Start Date End Date Duration Status Test strips One Touch Ultra as directed 6h Dec, Active Lisinopril 40 mg Orally Once a day 1 tablet 24h 90 Active Loratadine 10 mg Orally Once a day 1 tablet 24h 90 Active Atorvastatin Calcium 80 MG Orally Once a day 1 tablet 24h 30 Active Hydrocodone-Acetaminophen 5-325 MG Orally every 4- 6 hrs as needed 1 tablet May, Active Levemir Flexpen 100 UNIT/ML subcutaneously 2 times a day 50 units 12h Active Rizatriptan Benzoate 10 mg Orally PRN 1 tablet as needed at onset of headache , may repeat in 2 hours x 2 if needed Apr, Active Probiotic - Not-Taking Promethazine HCl 25 MG Orally every 4 hours 1 tablet as needed 4h Jun, Active Cromolyn Sodium 4 % Ophthalmic 2 times a day 2 drops into affected eye as needed 12h 18 Feb, 2017 Active Glucometer One Touch Ultra as directed Dec, Active Albuterol Sulfate 90 mcg/actuation Inhalation every 4-6 hours as needed 2 puffs May, Active Hydrochlorothiazide 25 MG TAKE ONE TABLET BY MOUTH ONCE DAILY 90 Active Montelukast Sodium 10 MG TAKE ONE TABLET BY MOUTH ONCE DAILY IN THE EVENING 90 Active Triamcinolone Acetonide 0.1 % Externally Twice a day 1 application to affected area 12h Jul, 14 days Active Sertraline HCl 100 MG Orally Once a day 1 tablet 24h 90 days Active Nystatin 702551 unit/gm apply to the affected area(s) by Topical route 4- 8 times per day as needed Jun, Active Phenergan 25 MG Rectal every 4-6 hours as needed 1 suppository as needed Sep, Not-Taking Metoprolol Tartrate 50 MG TAKE ONE TABLET BY MOUTH TWICE DAILY WITH FOOD 90 Active Bactrim DS 800-160 MG Orally Twice a day 1 tablet 12h 08 Oct, 2017Oct 10 day(s) Active Gabapentin 300 MG TAKE ONE CAPSULE BY MOUTH THREE TIMES DAILY 90 Active Metformin HCl 1000 MG TAKE ONE TABLET BY MOUTH TWICE DAILY WITH MEALS 90 Active Proventil HFA 108 (90 Base) MCG/ACT INHALE TWO PUFFS BY MOUTH EVERY 4 TO 6 HOURS NEEDED 17 Not-Taking Ibuprofen 200 mg Orally 3 times a day 4 tablet as needed 8h Not- Taking Pulmicort Flexhaler 90 MCG/ACT Inhalation Twice a day 1 puff 12h 30 Active NovoLog Flexpen 100 UNIT/ML Subcutaneous 3 times a day 30 units 8h Active Wheelchair DX Diabetic Foot Ulcers Sep, Not-Taking Fenofibrate 160 MG TAKE ONE TABLET BY MOUTH ONCE DAILY WITH A MEAL 90 Active Excedrin Migraine 250-250-65 MG Orally as directed 2 tablets as needed Active Clindamycin HCl 300 MG Orally every 8 hrs take along with 150mg capsule 1 capsule Nov, 14 days Not-Taking Multivitamin 1 Tablet 1 time per day May, Active RESULTS No Results PROCEDURES No [...] Davida Antunez 2003 Surgical History exploratory laparoscopy [facility] 1995 Surgical History amputation, toe (R great) Surgical History amputation, (R forefoot) 2014 Surgical History amputation, toe Left second 12/2016 Surgical History amputation, 4th left toe 02/2017 Hospitalization History Left foot cellulitis, left 2nd toe amputation-[facility] 12/23 Hospitalization History Surgery Hospitalizations
[2018-08-22 09:22] LABS: INR 1.3 (0.8-1.4); PROTHROMBIN TIME PATIENT 16.4 SEC (12.2-14.7)
--- OUTSIDE RECORDS SUMMARY | 2018-08-22 09:22 | XMS REPORT ---
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 Role Phone LUDIVINADEE DEE FAIRCHILDHANY Unavailable PROBLEMS Type Condition ICD9-CM Code AMU43-WA Code Onset Dates Condition Status SNOMED Code Problem Subclinical hypothyroidism E03.9 Active 05242466 Problem History of amputation of hallux Z89.419 Active 821993855 Problem Hypertriglyceridemia E78.1 Active 581955055 Problem Type 2 diabetes mellitus with other specified complication E11.69 Active 278967058 Problem Type 2 diabetes mellitus with diabetic polyneuropathy E11.42 Active 241146838 Problem Status post amputation of toe of left foot Z89.422 Active 733280409 Problem Pain in left foot M79.672 Active 86677376 Problem Other chronic pain G89.29 Active 01153952 Problem Ulcer of right heel L97.419 Active 850088940 Problem Intrinsic eczema L20.84 Active 96489035 Problem Irregular menstrual cycle N92.6 Active 43901550 Problem Type 2 diabetes mellitus with other skin complications E11.628 Active 31658894 Problem Type 2 diabetes mellitus with diabetic chronic 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 Active 420181199 Problem Chronic prescription opiate use Z79.891 Active 931185208 Problem Pain in right foot M79.671 Active 19024048 Problem Severe episode of recurrent major depressive disorder, without psychotic features F33.2 Active 45284154 Problem Tonsillolith J35.8 Active 1604344 Problem Chronic kidney disease, stage III (moderate) N18.3 Active 901962569 Problem Essential hypertension I10 Active 47483834 Problem Moderate persistent asthma without complication J45.40 Active 445032249 Problem Chronic migraine G43.709 Active 16765779 Problem Type 2 diabetes mellitus with foot ulcer E11.621 Active 06300290 Problem DM neuro manif type II E11.49 Active 36186717 Problem Anxiety disorder, unspecified F41.9 Active 271810074 Problem Obesity E66.9 Active 610482981 ALLERGIES No Information ENCOUNTERS Encounter Location Date Diagnosis [place] [address] [address] February, [place] [address] 41997- 4547 19 Dec, 2017 Type 2 diabetes mellitus with diabetic polyneuropathy E11.42 [place] [address] 15139- 5145 15 Dec, 2017 [place] [address] 55710- 8743 14 Dec, 2017 [place] [address] 36166- 8616 13 Dec, 2017 Chronic kidney disease, stage III (moderate) N18.3 [facility] [place] [address] 55[address]64 09 Dec, 2017 Nausea R11.0 and Diarrhea, unspecified type R19.7 [place] [address] 09067- 2289 07 Dec, 2017 Chronic kidney disease, stage III (moderate) N18.3 and Type 2 diabetes mellitus with diabetic polyneuropathy E11.42 [place] [address] [place] [id number] [place] [address] 67955- 0572 06 Dec, 2017 [place] [address] 26701- 7386 23 Nov, 2017 Ulcer of right heel L97.419 and Type 2 diabetes mellitus with diabetic polyneuropathy E11.42 [facility] [address] [place] [id number] [place] [id number] Nov, Dental examination Z01.20 [place] [address] 32048- 8303 22 Nov, 2017 Open wound of right foot, initial encounter S91.301A [facility] [address] [address]69 Nov, Open wound of right foot, initial encounter S91.301A ; Non- intractable vomiting with nausea, unspecified vomiting type R11.2 and BMI 60.0- 69.9, adult Z68.44 [place] [address] [place] [id number] [place] [address] 49290- 0929 Nov, [place] [address] 51326- 1822 Nov, Other chronic pain G89.29 [place] [address] 25069- 4968 Oct, Cellulitis of right lower limb L03.115 [place] [address] 15542- 8839 Oct, [place] [address] 14126- 4831 Oct, [place] [address] 10837- 2882 Oct, Cat scratch W55.03XA ; Cellulitis of right lower limb L03.115 ; Acute nasopharyngitis J00 ; BMI 60.0-69.9, adult Z68.44 and Cough R05 [place] [address] [place] [id number] [place] [address] 66258- 9218 Oct, Cat scratch W55.03XA ; Cutaneous abscess of right lower extremity L02.415 and Cellulitis of right lower limb L03.115 [place] [address] [place] [id number] [place] [address] 56498- 0658 Oct, Type 2 diabetes mellitus with diabetic polyneuropathy E11.42 [place] [address] 37161- 8573 Oct, Other chronic pain G89.29 [place] [address] [place] [id number] [place] [address] 08617- 5548 Aug, [place] [address] 23907- 4365 Jul, Other chronic pain G89.29 [place] [address] 19067- 7947 Jul, [place] [address] 50421- 4405 Jul, Chronic kidney disease, stage III (moderate) N18.3 [place] [address] 79110- 8848 04 Jul, 2017 Type 2 diabetes mellitus with diabetic polyneuropathy E11.42 ; Essential hypertension I10 ; Irregular menstrual cycle N92.6 ; Hypertriglyceridemia E78.1 ; Anxiety disorder, unspecified F41.9 ; Severe episode of recurrent major depressive disorder, without psychotic features F33.2 ; Tonsillolith J35.8 ; Intrinsic eczema L20.84 ; Subclinical hypothyroidism E03.9 ; Viral pharyngitis J02.9 and Encounter for immunization Z23 [place] [address] 20497- 9662 13 Jun, 2017 Essential hypertension I10 [address] 23777- 7406 08 Jun, 2017 [place] [address] 55900- 0508 Jun, [place] [address] 12007- 1350 May, Moderate persistent asthma without complication J45.[address] 62629- 5022 17 May, 2017 Pain in right foot M79.671 ; Pain in left foot M79.672 ; Other chronic pain G89.29 and Chronic prescription opiate use Z79.891 [place] [address] 78439- 5176 May, [place] [address] 01536- 3102 May, [place] [address] [place] [id number] [place] [address] 99796- 1449 Apr, [place] [address] [place] [id number] [place] [address] 89460- 4854 Apr, Chronic migraine G43.709 [place] [address] [place] [id number] [place] [address] 20572- 4055 Apr, Essential hypertension I10 ; Hypertriglyceridemia E78.1 and Chronic migraine G43.709 [place] [address] 97488- 9176 Apr, [place] [address] 81908- 9758 Apr, Sore throat J02.[address] 56984- 5382 Apr, [place] [address] 71852- 7166 Mar, Strep pharyngitis J02.0 and Non-intractable vomiting with nausea, unspecified vomiting type R11.2 [place] [id number] [place] [address] 39410- 3572 Mar, [place] [address] [place] [id number] [place] [address] 07622- 6456 Mar, [place] [address] [place] [id number] [place] [address] 25260- 2738 Mar, [place] [address] [place] [id number] [place] [address] 19350- 2157 Mar, Type 2 diabetes mellitus with diabetic polyneuropathy E11.42 ; Moderate persistent asthma without complication J45.40 ; Status post amputation of toe of left foot Z89.422 ; Acute seasonal allergic rhinitis, unspecified trigger J30.2 and Left shoulder pain, unspecified chronicity M25.512 [place] [id number] [place] [address] 99376- 9061 Mar, [facility] [address] [address] February, Pre-op evaluation Z01.818 ; Type 2 diabetes mellitus with diabetic polyneuropathy E11.42 and Type 2 diabetes mellitus with foot ulcer E11.621 [place] [address] [address] February, [facility] [address] [place] [id number] [place] [address] 48347- 5257 February, [facility] [address] [place] [id number] [place] [address] 83613- 3977 February, Toe infection L08.9 and Type 2 diabetes mellitus with other specified complication E11.69 [place] [address] [place] [id number] [place] [address] 41929- 3080 February, [place] [address] [place] [id number] [place] [address] 48317- 5305 Jan, Type 2 diabetes mellitus with diabetic polyneuropathy E11.42 [place] [address] [place] [id number] [place] [address] 53815- 5838 Jan, [place] [address] [place] [id number] [place] [address] 55054- 2634 Jan, Right upper quadrant pain R10.11 and Intractable vomiting with nausea, unspecified vomiting type R11.2 [place] [address] [place] [id number] [place] [address] 93060- 9392 Jan, Hypertriglyceridemia E78.1 and Essential hypertension I10 [place] [address] [place] [id number] [place] [address] 71318- 3103 Jan, Essential hypertension I10 ; Type 2 diabetes mellitus with diabetic polyneuropathy E11.42 and Hypertriglyceridemia E78.1 [place] [address] [address]- 2450 Dec, Type 2 diabetes mellitus with diabetic polyneuropathy E11.42 [facility] [place] [address] [place] [id number] [place] [address] 73748- 3669 15 Dec, 2016 Hypertriglyceridemia E78.1 ; Essential hypertension I10 ; Type 2 diabetes mellitus with diabetic polyneuropathy E11.42 ; Anxiety disorder , unspecified F41.9 and Moderate persistent asthma without complication J45.40 [place] [address] [place] [id number] [place] [address] 51625- 9014 Dec, Type 2 diabetes mellitus with diabetic polyneuropathy E11.42 [facility] [address] [place] [id number] [place] [address] [id number] Dec, [place] [address] [place] [id number] [place] [address] 17067- 7265 Nov, [place] [address] [place] [id number] [place] [address] 61059- 3212 Nov, [place] [address] [place] [id number] [place] [address] 20381- 0957 Nov, [facility] [place] [address] [place] [id number] [place] [address] 12378- 5865 Nov, Toe infection L08.9 [place] [address] [place] [id number] [place] [address] 02336- 5317 Nov, [place] [address] [place] [id number] [place] [address] 17217- 7624 Oct, History of amputation of hallux Z89.419 [place] [address] [place] [address] 67309- 7673 Oct, Type 2 diabetes mellitus with diabetic polyneuropathy E11.42 [place] [address] [place] [address] 60608- 5755 Oct, Type 2 diabetes mellitus with diabetic polyneuropathy E11.42 [place] [address] [place] [address] 52713- 0235 Oct, Acute osteomyelitis of left foot M86.172 ; Pre-op exam Z01.818 and Type 2 diabetes mellitus with diabetic polyneuropathy E11.42 [facility] [address] [place] [address] 14104- 5204 Oct, Foot ulcer, left, with unspecified severity L97.529 ; Acute osteomyelitis of left foot M86.172 and Type 2 diabetes mellitus with diabetic polyneuropathy E11.42 [facility] [address] [place] [id number] [place] [address] 64527- 5218 Sep, [facility] [address] [place] [id number] [place] [address] 86835- 9648 Sep, Intractable vomiting with nausea, unspecified vomiting type R11.2 and Right upper quadrant pain R10.11 [facility] [address] [place] [id number] [place] [address] 75478- 0058 Aug, [facility] [address] [place] [id number] [place] [address] 30528- 7049 Jul, [facility] [address] [place] [id number] [place] [address] 11225- 5418 Jul, Preop examination Z01.818 [facility] [place] [address] [place] [id number] [place] [address] 46415- 9210 Jul, [facility] [place] [address] [place] [id number] [place] [address] 68594- 0845 Jul, [facility] [address] [place] [id number] [place] [address] 34398- 8242 Jul, Chronic osteomyelitis of left foot M86.672 and Ulcer of left foot, with unspecified severity L97.529 [facility] [place] [address] [place] [address] 28300- 7632 Jul, Non-pressure chronic ulcer of other part of left foot with unspecified severity L97.529 [facility] [place] [address] [place] [id number] [place] [address] 56438- 2386 Jul, [facility] [address] [place] [id number] [place] [address] 40257- 3674 Jul, [facility] [place] [address] [address]- 3858 Jun, [facility] [place] [address] [place] [id number] [place] [address] 60472- 9677 Jun, [facility] [address] [place] [id number] [place] [address] 07734- 9551 Jun, [facility] [place] [address] [place] [id number] [place] [address] 65763- 2168 Jun, Right upper quadrant pain R10.11 [facility] [address] [place] [id number] [place] [address] 37707- 4895 Jun, [place] [address] [place] [id number] [place] [address] 93665- 9490 Jun, Intractable vomiting with nausea, unspecified vomiting type R11.2 [place] [address] [place] [id number] [place] [address] 01381- 9336 13 Jun, 2016 Right upper quadrant pain R10.11 ; Migraine with aura and with status migrainosus, not intractable G43.101 and Intractable vomiting with nausea, unspecified vomiting type R11.2 [place] [address] [place] [id number] [place] [address] 32393- 6859 Jun, [place] [address] [place] [id number] [place] [address] 16333- 8770 Jun, Gastroenteritis K52.9 [place] [id number] [place] [address] 74645- 6205 May, [facility] [address] [place] [id number] [place] [address] 59085- 7348 May, Hypertriglyceridemia E78.1 ; Essential hypertension I10 ; Type 2 diabetes mellitus with diabetic polyneuropathy E11.42 ; Moderate persistent asthma without complication J45.40 ; Type 2 diabetes mellitus with foot ulcer E11.621 ; Other chronic pain G89.29 ; Pain in right leg M79.604 ; Pain of left leg M79.605 ; Rash and nonspecific skin eruption R21 and Anxiety disorder, unspecified F41.9 [facility] [place] [address] [place] [id number] [place] [address] 78208- 3876 May, Essential hypertension I10 ; Hypertriglyceridemia E78.1 ; Upper respiratory infection J06.9 ; Subclinical hypothyroidism E03.9 and Type 2 diabetes mellitus with diabetic polyneuropathy E11.42 [facility] [place] [address] [place] [id number] [place] [address] 66361- 3368 Apr, Hypertriglyceridemia E78.1 ; Subclinical hypothyroidism E03.9 ; Essential hypertension I10 and Type 2 diabetes mellitus with diabetic polyneuropathy E11.42 [place] [address] [place] [id number] [place] [address] 88740- 0493 Mar, [place] [address] [place] [id number] [place] [address] 69420- 2396 Mar, Ulcer of right heel L97.419 [place] [address] [place] [id number] [place] [address] 32109- 1669 Mar, [place] [address] [place] [id number] [place] [address] 34128- 3337 Mar, [place] [address] [place] [id number] [place] [address] 81219- 5846 February, [place] [address] [place] [id number] [place] [address] 08851- 8492 February, Ulcer of right heel L97.419 and DM neuro manif type II E11.49 [facility] [place] [address] [place] [id number] [place] [address] 48085- 0235 Jan, [facility] [place] [address] [place] [id number] [place] [address] 03970- 3903 Jan, Ulcer of right heel L97.419 ; Type 2 diabetes mellitus with foot ulcer E11.621 and Non-pressure chronic ulcer of other part of left foot with unspecified severity L97.529 [facility] [place] [address] [place] [id number] [place] [address] 22599- 8449 Jan, [facility] [address] [address]- 1052 Jan, [facility] [place] [address] [place] [id number] [place] [address] 61175- 7942 Jan, Infection of toenail L03.039 [facility] [address] [place] [id number] [place] [address] 27004- 4681 Jan, Blister of toe of left foot, initial encounter S90.425A and Type 2 diabetes mellitus with diabetic polyneuropathy E11.42 [facility] [address] [place] [id number] [place] [address] 47099- 1537 Jan, [facility] [address] [place] [id number] [place] [address] 63359 -3188 Jan, Sore throat J02.9 and Strep pharyngitis J02.0 [facility] [address] [place] [id number] [place] [address] 40385- 1490 Dec, Type 2 diabetes mellitus with diabetic polyneuropathy E11.42 ; Upper respiratory infection J06.9 ; Cough R05 and Asthma exacerbation J45.901 [facility] [place] [address] [place] [id number] [place] [address] 91091- 9865 Oct, [facility] [place] [address] [place] [id number] [place] [address] 82221- 3746 Oct, [facility] [address] [place] [id number] [place] [address] 20879- 2197 Oct, [facility] [place] [id number] [place] [address] 34938- 3377 Oct, [facility] [place] [address] [place] [id number] [place] [address] 14045- 4049 Sep, [facility] [address] [place] [id number] [place] [address] 49689- 6927 24 Aug, 2015 Anxiety disorder, unspecified F41.9 and Obesity E66.9 [facility] [place] [address] [place] [id number] [place] [address] 37291- 4305 Aug, Moderate persistent asthma without complication J45.40 [facility] [place] [address] [place] [id number] [place] [address] 72969- 2238 Aug, Anxiety disorder, unspecified F41.9 [facility] [place] [address] [place] [id number] [place] [address] 98221- 0631 Aug, Chronic migraine G43.709 ; Encounter for immunization Z23 ; Hypertriglyceridemia E78.1 ; Type 2 diabetes mellitus with diabetic polyneuropathy E11.42 ; Moderate persistent asthma without complication J45.40 and Morbid obesity E66.01 [facility] [place] [address] 54533- 9311 Jul, [facility] [address] [place] [id number] [place] [address] 57750- 2647 Jul, [facility] [address] 68578- 8424 Jul, [facility] [address] [place] [id number] [place] [address] 23451- 6697 Jul, Subclinical hypothyroidism E03.9 [facility] [place] [address] [place] [id number] [place] [address] 36279- 3729 Jun, Essential hypertension, benign 401.1 ; Diabetic ulcer of lower extremity 250.80 ; Asthma 493.90 ; Diabetes mellitus type II, uncontrolled 250.02 and Hyperlipidemia associated with type 2 diabetes mellitus 250.80 [facility] [address] [place] [id number] [place] [address] 63936- 0029 Jun, [facility] [address] [place] [id number] [place] [address] 92525- 2222 Jun, [facility] [address] [place] [id number] [place] [address] 19631- 5865 May, [facility] [address] [place] [id number] [place] [address] 92943- 6688 Apr, [facility] [address] [place] [address]- 4300 Apr, Viral upper respiratory infection 465.9 and Asthma 493.90 [facility] [address] [id number] [place] [address] 94054- 6557 Mar, Abnormal ankle brachial index 796.4 [facility] [id number] [place] [address] 60255- 6991 February, [facility] [address] [id number] [place] [address] 85904- 8552 February, Essential hypertension, benign 401.1 [facility] [place] [id number] [place] [address] 62782- 1920 February, Diabetic peripheral neuropathy 250.60 ; Ulcer of heel and midfoot 707.14 and Decreased pedal pulses 785.9 [facility] [id number] [place] [address] 10024- 3266 February, [facility] [id number] [place] [address] 93447- 2953 February, [facility] [id number] [place] [address] 81064- 0595 Jan, [facility] [id number] [place] [address] 67986- 6756 Jan, [facility] [address] [address]- 0450 Dec, [facility] [id number] [place] [address] 82056- 1691 Dec, [facility] [address] [address]- 7989 Nov, [facility] [id number] [place] [id number] Nov, [facility] [place] [id number] [address] Nov, [facility] [place] [id number] [place] [address] Nov, [facility] [place] [facility] [address] [id number] [place] [address] Nov, 2014 [facility] [place] [facility] [address] [id number] [place] [address] Nov, 2014 [facility] [place] [facility] [address] [id number] [place] [address] Nov, 2014 [facility] [place] [facility] [address] [id number] [place] [address] Nov, [facility] [place] [facility] [address] [id number] [place] [address] Nov, [facility] [place] [facility] [address] [id number] [place] [address] Oct, [facility] [place] [facility] [address] [id number] [place] [address] Oct, [facility] [place] [facility] [address] [id number] [place] [address] Oct, [facility] [place] [facility] [address] [id number] [place] [address] Oct, [facility] [place] [facility] [address] [id number] [place] [address] Oct, [facility] [place] [facility] [address] [id number] [place] [address] Oct, [facility] [place] [facility] [address] [id number] [place] [address] Oct, [facility] [place] [facility] [address] [id number] [place] [address] Oct, [facility] [place] [facility] [address] [id number] [place] [address] Oct, [facility] [place] [facility] [address] [id number] [place] [address] Oct, [facility] [place] [facility] [address] [id number] [place] [address] Oct, [facility] [place] [facility] [address] [id number] [place] [address] 93[address] Oct, [facility] [place] [facility] [address] [id number] [place] [address]57 Oct, [facility] [place] [facility] [address] [id number] [place] [address] Sep, [facility] [place] [facility] [address] [id number] [place] [address] Sep, [facility] [place] [facility] [address] [id number] [place] [address] 4807 Sep, [facility] [place] [facility] [address] [id number] [place] [address] 7958 Sep, [facility] [place] [facility] [address] [id number] [place] [address] 2561 Sep, [facility] [place] [facility] [address] [id number] [place] [address] 5755 Sep, [facility] [place] [facility] [address] [id number] [place] [address] 3160 Sep, [facility] [place] [facility] [address] [id number] [place] [address] 7270 Sep, [facility] [place] [facility] [address] [id number] [place] [address] 8628 Sep, [facility] [place] [facility] [address] [id number] [place] [address] Sep, [facility] [place] [facility] [address] [id number] [place] [address] 8295 Sep, [facility] [place] [facility] [address] [id number] [place] [address] 0709 Sep, [facility] [place] [facility] [address] [id number] [place] [address] 2788 Sep, [facility] [place] [facility] [address] [id number] [place] [address]- 9499 Sep, [facility] [place] [facility] [address] [id number] [place] [address] Sep, [facility] [place] [facility] [address] [id number] [place] [address] Sep, [facility] [place] [facility] [address] [id number] [place] [address] 2867 Aug, [facility] [place] [facility] [address] [id number] [place] [address] 3673 Aug, [facility] [place] [facility] [address] [id number] [place] [address]- 7281 Aug, [facility] [place] [facility] [address] [id number] [place] [address] 4491 Aug, [facility] [place] [facility] [address] [id number] [place] [address] 6338 Aug, [facility] [place] [facility] [address] [id number] [place] [address] 0104 Aug, [facility] [place] [facility] [address] [facility] [id number] [place] [address]- 4562 Aug, [facility] [place] [facility] [address] [id number] [place] [address]- 2141 Aug, [facility] [place] [facility] [address] [id number] [place] [address]- 5892 Jul, [facility] [place] [facility] [address] [id number] [place] [address]- 0087 Jul, [facility] [place] [facility] [address] [id number] [place] [address] 1605 30 Jul, 2014 [facility] [place] [facility] [address] [id number] [place] [address]- 7[address] 15 Jul, 2014 [facility] [place] [facility] [address] [id number] [place] [address] 9396 Jul, [facility] [place] [facility] [address] [id number] [place] [address] 3494 Jun, [facility] [place] [facility] [address] [id number] [place] [address] 5716 Jun, [facility] [place] [facility] [address] [id number] [place] [address]- 5076 Jun, [facility] [place] [facility] [address] [id number] [place] [address]- 2321 Jun, [facility] [place] [facility] [address] [id number] [place] [address]- 6973 Jun, [facility] [place] [facility] [address] [id number] [place] [address]- 0861 May, [facility] [place] [facility] [address] [id number] [place] [address] 2119 May, [facility] [place] [facility] [address] [id number] [place] [address]- 6282 Apr, [facility] [place] [facility] [address] [id number] [place] [address]- 2774 Apr, [facility] [place] [facility] [address] [id number] [place] [address] 1977 Apr, [facility] [place] [facility] [address] [id number] [place] [address]- 4605 Apr, [facility] [place] [facility] [address] [id number] [place] [address]- 0088 Apr, [facility] [place] [facility] [address] [id number] [place] [address]- 9520 Apr, [facility] [place] [facility] [address] [id number] [place] [address] Mar, [facility] [place] [facility] [address] [id number] [place] [address]- 1789 Mar, [facility] [place] [facility] [address] [id number] [place] [address]- 4937 Mar, [facility] [place] [facility] [address] [id number] [place] [address]- 1481 Mar, [facility] [place] [facility] [address] [id number] [place] [address]- 8380 Mar, [facility] [place] [facility] [address] [id number] [place] [address]- 6873 Mar, [facility] [place] [facility] [address] [id number] [place] [address]- 4905 Mar, [facility] [place] [facility] [address] [id number] [place] [address]- 4792 Mar, [facility] [place] [facility] [address] [id number] [place] [address]- 8196 Mar, [facility] [place] [facility] [address] [id number] [place] [address]- 8285 Mar, [facility] [place] [facility] [address] [id number] [place] [address]- 8969 Mar, [facility] [place] [facility] [address] [id number] [place] [address]- 3564 Mar, [facility] [place] [facility] [address] [id number] [place] [address]- 6114 Mar, [facility] [place] [facility] [address] [id number] [place] [address]- 2022 Mar, [facility] [place] [facility] [address] [id number] [place] [address]- 8614 Mar, [facility] [place] [facility] [address] [id number] [place] [address]- 6360 Mar, [facility] [place] [facility] [address] [id number] [place] [address]- 2665 February, [facility] [place] [facility] [address] [id number] [place] [address]- 6151 February, [facility] [address] [id number] [place] [address] 7333 February, [facility] [place] [facility] [address] [id number] [place] [address]- 0795 February, [facility] [place] [facility] [address] [id number] [place] [address] 4000 February, [facility] [place] [facility] [address] [id number] [place] [address]- 3393 February, [facility] [place] [facility] [address] [id number] [place] [address]- 4218 February, [facility] [place] [facility] [address] [id number] [place] [address]- 4449 February, [facility] [place] [facility] [address] [id number] [place] [address]- 7172 Jan, [facility] [place] [facility] [address] [id number] [place] [address]- 1961 Jan, [facility] [place] [facility] [address] [id number] [place] [address]- 5736 Dec, [facility] [place] [facility] [address] [id number] [place] [address]- 9770 Dec, [facility] [place] [facility] [address] [id number] [place] [address]- [address]659 Dec, [facility] [place] [facility] [address] [id number] [place] [address]- 5700 Dec, [facility] [place] [facility] [address] [id number] [place] [address]- 8614 Dec, [facility] [place] [facility] [address] [id number] [place] [address]- 2613 Dec, [facility] [place] [facility] [address] [id number] [place] [address]- 3726 Dec, [facility] [place] [facility] [address] [id number] [place] [address]- 3958 19 Dec, 2013 [facility] [place] [facility] [address] [id number] [place] [address]- 4746 17 Dec, 2013 [facility] [place] [facility] [address] [id number] [place] [address]- 8412 17 Dec, 2013 [facility] [place] [facility] [address] [id number] [place] [address]- 0165 14 Dec, 2013 [facility] [place] [facility] [address] [id number] [place] [address]- 5915 Dec, [facility] [place] [facility] [address] [id number] [place] [address]- 4782 Dec, [facility] [place] [facility] [address] [id number] [place] [address]- 3747 Dec, [facility] [place] [facility] [address] [id number] [place] [address]- 5089 Nov, [facility] [place] [facility] [address] [id number] [place] [address]- 1401 Nov, [facility] [place] [facility] [address] [id number] [place] [address]- 5676 Oct, [facility] [place] [facility] [address] [id number] [place] [address]- 8619 Oct, [facility] [place] [facility] [address] [id number] [place] [address]- 2856 Oct, [facility] [place] [facility] [address] [id number] [place] [address]- 3048 Oct, [facility] [place] [facility] [address] [id number] [place] [address]- 7466 Oct, [facility] [place] [facility] [address] [id number] [place] [address]- 7803 Oct, [facility] [place] [facility] [address] [id number] [place] [address]- 1180 06 Oct, 2013 [facility] [address] [id number] [place] [address]- 2912 31 Sep, 2013 [facility] [address] [id number] [place] [address]- 2096 30 Sep, 2013 [facility] [address] [id number] [place] [address]- 3586 30 Sep, 2013 [facility] [place] [facility] [address] [id number] [place] [address]- 0416 29 Sep, 2013 [facility] [address] [id number] [place] [address]- 4667 Sep, [facility] [address] [id number] [place] [address]- 3667 Sep, [facility] [address] [id number] [place] [address]- 3375 Sep, [facility] [address] [id number] [place] [address]- 4788 Sep, [facility] [address] [id number] [place] [address]- 8794 24 Sep, 2013 [facility] [address] [id number] [place] [address]- 5897 24 Sep, 2013 [facility] [address] [id number] [place] [address]- 7826 2013 [facility] [place] [facility] [address] [id number] [place] [address] 2544 2013 [facility] [place] [facility] [address] [id number] [place] [address]- 9792 16 Sep, 2013 [facility] [place] [facility] [address] [id number] [place] [address]- 2546 16 Sep, 2013 [facility] [address] [id number] [place] [address] Sep, [facility] [place] [facility] [address] [id number] [place] [address]- 8137 Sep, [facility] [address] [id number] [place] [address]- 2301 Sep, [facility] [place] [facility] [address] [id number] [place] [address]- 3276 Sep, [facility] [address] [id number] [place] [address]- 2372 Sep, [facility] [address] [id number] [place] [address]- 7668 Aug, [facility] [place] [facility] [address] [id number] [place] [address]- 1132 Aug, [facility] [address] [id number] [place] [address]- 1031 Aug, [facility] [address] [id number] [place] [address]- 0198 Aug, [facility] [address] [id number] [place] [address]- 0315 Aug, [facility] [address] [id number] [place] [address]- 1944 Aug, [facility] [place] [facility] [address] [id number] [place] [address]- 1864 Aug, [facility] [place] [facility] [address] [id number] [place] [address]- 7370 Aug, [facility] [place] [facility] [address] [id number] [place] [address]- 7496 Aug, [facility] [place] [facility] [address] [id number] [place] [address]- 3876 Aug, [facility] [place] [facility] [address] [id number] [place] [address]- 0229 Aug, [facility] [place] [facility] [address] [id number] [place] [address]- 2546 Aug, [facility] [place] [facility] [address] [id number] [place] [address]- 8159 Aug, [facility] [place] [facility] [address] [id number] [place] [address]- 5663 Aug, [facility] [place] [facility] [address] [id number] [place] [address]- 9768 Aug, [facility] [place] [facility] [address] [id number] [place] [address]- 0534 Aug, [facility] [place] [facility] [address] [id number] [place] [address]- 2750 Aug, [facility] [place] [facility] [address] [id number] [place] [address]- 4783 Jul, [facility] [place] [facility] [address] [id number] [place] [address]- 2284 Jul, [facility] [place] [facility] [address] [id number] [place] [address]- 8923 Jul, [facility] [place] [facility] [address] [id number] [place] [address]- 1749 Jul, [facility] [place] [facility] [address] [id number] [place] [address]- 0745 Jul, [facility] [place] [facility] [address] [id number] [address]- 2982 Jul, [facility] [place] [facility] [address] [id number] [address]- 3070 Jul, [facility] [place] [facility] [address] [id number] [place] [address]683 27 Jun, 2013 [facility] [place] [facility] [address] [id number] [place] [address]130 20 Jun, 2013 [facility] [place] [facility] [address] [id number] [place] [address] 17 Jun, 2013 [facility] [place] [facility] [id number] [address]- 5054 10 Jun, 2013 [facility] [id number] [address]- 8206 Jun, [facility] [id number] [address]- 0867 Jun, [facility] [id number] [address]- 7364 05 Jun, 2013 [facility] [id number] [address]- 7163 Jun, [facility] [place] [id number], [place] [address]- 1715 May, [facility] [place] [address], [place] [address]- 8450 May, [facility] [place] [address], [place] [address]- 2869 May, [facility] [address], [place] [address]- 3774 May, [facility] [address], [place] [address]- 7645 May, [facility] [place] [address] [address]- 2124 May, [facility] [address] [address]- 4150 May, [facility] [id number] [address]- 5482 May, IMMUNIZATIONS No Known Immunizations SOCIAL HISTORY [...] [facility] Surgical History salpingectomy [facility] Surgical History bladder surgery-stretch [facility] 2003 Surgical History exploratory laparoscopy [facility] 1995 Surgical History amputation, toe (R great) Surgical History amputation, (R forefoot) 2015 Surgical History amputation, toe Left second 12/2016 Surgical History amputation, 4th left toe 02/2017 Hospitalization History Left foot cellulitis, left 2nd toe amputation-[facility] 12/23 Hospitalization History Surgery Hospitalizations
--- OUTSIDE RECORDS SUMMARY | 2018-08-22 09:22 | XMS REPORT ---
Author Author LUDIVINA STEPHANIE [facility] Address [address] [place] [address] Care Team Providers Care Honing Machine Set Up Operator Name Role Phone LUDIVINADEE DEESTEPHANIE Unavailable PROBLEMS Type Condition ICD9-CM Code [id number] Code Onset Dates Condition Status SNOMED Code Problem Type 2 diabetes mellitus with foot ulcer E11.621 Active 86558223 Problem History of amputation of hallux Z89.419 Active 108244901 Problem DM neuro manif type II E11.49 Active 06698612 Problem Pain in right foot M79.671 Active 93472377 Problem Pain in left foot M79.672 Active 09918214 Problem Status post amputation of toe of left foot Z89.422 Active 869076444 Problem Type 2 diabetes mellitus with other specified complication E11.69 Active 357050595 Problem Other chronic pain G89.29 Active 24059296 Problem Chronic prescription opiate use Z79.891 Active 678972339 Problem Irregular menstrual cycle N92.6 Active 43218452 Problem Moderate persistent asthma without complication J45.40 Active 181244870 Problem Essential hypertension I10 Active 48161750 Problem Type 2 diabetes mellitus with diabetic polyneuropathy E11.42 Active 638756076 Problem Hypertriglyceridemia E78.1 Active 166090788 Problem Type 2 diabetes mellitus with other skin complications E11.628 Active 05565289 Problem Chronic migraine G43.709 Active 97640665 Problem Anxiety disorder, unspecified F41.9 Active 509993742 Problem Subclinical hypothyroidism E03.9 Active 80167951 Problem Obesity E66.9 Active 810281556 ALLERGIES Substance Reaction Event Type Date Status Penicillin V Potassium Unknown Drug Allergy Nov, Active SOCIAL HISTORY Never Assessed PLAN OF CARE Activity Details Follow Up prn Reason: VITAL SIGNS Height 62 in 2016-12-15 Weight 335.4 lbs 2016-12-15 Temperature 97.5 degrees Fahrenheit 2016-12-15 Heart Rate 84 bpm 2016-12-15 Respiratory Rate 20 2016-12-15 BMI 61.34 kg/m2 2016-12-15 Blood pressure systolic 133 mmHg 2016-12-15 Blood pressure diastolic 83 mmHg 2016-12-15 MEDICATIONS Medication Instructions Dosage Frequency Start Date End Date Duration Status Hydrochlorothiazide 25 MG Orally Once a day 1 tablet 24h 90 days Active Atorvastatin Calcium 40 MG Orally Once a day 1 tablet 24h Aug, 90 days Active Sertraline HCl 50 mg Orally Once a day 1 tablet 24h 90 days Active Gabapentin 300 MG Orally 3 times a day 1 capsule 8h Aug, 90 days Active NovoLog Flexpen 100 UNIT/ML Subcutaneous 3 times a day 30 units 8h Jan, 90 days Active Pulmicort Flexhaler 90 MCG/ACT Inhalation Twice a day 1 puff 12h Jun, Active Montelukast Sodium 10 mg Orally Once a day 1 tablet in the evening 24h 90 days Active Nystatin 100,000 unit/gram apply to the affected area(s) by Topical route 4-8 times per day as needed Jun, Active Phenergan 25 MG Rectal every 4-6 hours as needed 1 suppository as needed Sep, Active Levemir Flexpen 100 UNIT/ML subcutaneously 2 times a day 50 units 12h 90 days Active Promethazine HCl 25 MG Orally every 4 hours 1 tablet as needed 4h 20 Jun, 2016 Active Clindamycin HCl 300 MG Orally every 8 hrs take along with 150mg capsule 1 capsule Nov, Dec, 10 days Active Lisinopril 40 mg Orally Once a day 1 tablet 24h Jul, 90 days Active Metformin HCl 1000 MG Orally Twice a day 1 tablet with meals 12h May, 90 days Active cromolyn 4 % instill 2 drops into affected eye(s) by Ophthalmic route 2 times per day Jun, Active Probiotic - Active Albuterol Sulfate 90 mcg/actuation Inhalation every 4-6 hours as needed 2 puffs May, Active Metoprolol Tartrate 50 mg Orally Twice a day 1 tablet with food 12h 90 days Active Clindamycin HCl 150 MG Orally every 8 hrs. Take along with 300mg capsule 1 capsule Nov, Dec, 10 days Active Fenofibrate 160 MG Orally Once a day 1 tablet with a meal 24h May, 90 days Active Multivitamin 1 Tablet 1 time per day May, Active Hydrocodone-Acetaminophen 5-325 MG Orally every 4- 6 hrs as needed 1 tablet February, Active RESULTS Name Result Date Reference Range Xray : Foot, Left 2 views (IN HOUSE) 2016-12-15 PROCEDURES Procedure Date Ordered Result Body Site X-RAY EXAM OF FOOT Dec 15, 2016 IMMUNIZATIONS No Known Immunizations MEDICAL (GENERAL) HISTORY Type Description Date Medical History type I diabetes Medical History hypertension Medical History hyperlipidemia Medical History asthma Medical History migraine headaches Medical History allergic rhinitis Medical History neuropathy Medical History Chronic osteomyelitis, site unspecified Surgical History [facility]ectomy [facility] 1995 Surgical History salpingectomy [facility] Surgical History bladder surgery-stretch [facility] 2003 Surgical History exploratory laparoscopy [facility] 1995 Surgical History amputation, toe (R great) Surgical History amputation, (R forefoot) 2014 Surgical History amputation, toe Left second 12/2016 Surgical History amputation, 4th left toe 02/2017 Hospitalization History Left foot cellulitis, left 2nd toe amputation-[facility] 12/23
--- OUTSIDE RECORDS SUMMARY | 2018-08-22 09:23 | XMS REPORT ---
Author Author NIÑOHUONG Gaspar Organization [facility] Address [address] [place] [address] Care Team Providers Care Hatchery Manager Name Role Phone HUONG NIÑO Unavailable PROBLEMS Type Condition ICD9-CM Code [id number] Code Onset Dates Condition Status SNOMED Code Problem Subclinical hypothyroidism E03.9 Active 22605058 Problem Hypertriglyceridemia E78.1 Active 126653879 Problem Type 2 diabetes mellitus with diabetic polyneuropathy E11.42 Active 102624949 Problem Type 2 diabetes mellitus with diabetic chronic 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 Active 382015552 Problem Other chronic pain G89.29 Active 93680704 Problem Type 2 diabetes mellitus with other skin complications E11.628 Active 71062020 Problem Pain in left foot M79.672 Active 85975247 Problem Irregular menstrual cycle N92.6 Active 70076390 Problem Pain in right foot M79.671 Active 58567606 Problem Tonsillolith J35.8 Active 5623506 Problem Chronic prescription opiate use Z79.891 Active 531558019 Problem Seasonal allergic rhinitis due to pollen J30.1 Active 75631049 Problem Asthma exacerbation, mild J45.901 Active 616557564 Problem Chronic kidney disease, stage III (moderate) N18.3 Active 750076751 Problem Chronic migraine G43.709 Active 13458830 Problem Moderate persistent asthma without complication J45.40 Active 641469934 Problem Intrinsic eczema L20.84 Active 33367393 Problem Severe episode of recurrent major depressive disorder, without psychotic features F33.2 Active 00745964 Problem Non-pressure chronic ulcer of right heel and midfoot limited to breakdown of skin L97.411 Active 379020742 Problem Ulcer of right heel L97.419 Active 573309940 Problem Obesity E66.9 Active 862883498 Problem Type 2 diabetes mellitus with foot ulcer E11.621 Active 02728518 Problem Essential hypertension I10 Active 77062609 Problem Anxiety disorder, unspecified F41.9 Active 153670043 Problem Type 2 diabetes mellitus with other specified complication E11.69 Active 196180994 Problem Status post amputation of toe of left foot Z89.422 Active 944029538 Problem DM neuro manif type II E11.49 Active 65053423 Problem History of amputation of hallux Z89.419 Active 919386785 ALLERGIES No Information ENCOUNTERS Encounter Location Date Diagnosis [facility] [id number] [place] [address] 64503- 4822 12 Mar, 2018 Moderate persistent asthma without complication J45.40 [facility] [address] 75533- 0175 Mar, Moderate persistent asthma without complication J45.40 [facility] [address] 17467- 2229 Mar, [facility] [address] 71835- 5544 February, Chronic migraine G43.709 [facility] [address] 45331- 1288 February, Chronic migraine G43.709 [facility] [address] 23056- 3136 February, [facility] [address] 09517- 3852 February, [facility] [id number] [place] [address] 13006- 2287 February, Type 2 diabetes mellitus with diabetic polyneuropathy E11.42 ; Moderate persistent asthma without complication J45.40 ; Type 2 diabetes mellitus with foot ulcer E11.621 ; Non-pressure chronic ulcer of right heel and midfoot limited to breakdown of skin L97.411 ; Chronic migraine G43.709 and BMI 60.0-69.9, adult Z68.44 [facility] [id number] [place] [address] 22467 -2126 Jan, 2018 Asthma exacerbation, mild J45.901 ; Seasonal allergic rhinitis due to pollen J30.1 and BMI 60.0-69.9, adult Z68.44 [facility] [id number] [place] [address] 66316- 3711 Jan, [facility] [address] 86907- 7863 Jan, Other chronic pain G89.29 [facility] [id number] [place] [address] 29884- 8421 30 Dec, 2017 Type 2 diabetes mellitus with diabetic polyneuropathy E11.42 [facility] [id number] [place] [address] 17432- 1996 19 Dec, 2017 Type 2 diabetes mellitus with diabetic polyneuropathy E11.42 [facility] [id number] [place] [address] 31679- 5474 15 Dec, 2017 [facility] [id number] [place] [address] 98238- 0891 14 Dec, 2017 [facility] [id number] [place] [address] 10242- 3885 13 Dec, 2017 Chronic kidney disease, stage III (moderate) N18.3 [facility] [id number] [place] [address] 23266 -4303 09 Dec, 2017 Nausea R11.0 and Diarrhea, unspecified type R19.7 [facility] [id number] [place] [address] 04039- 4321 07 Dec, 2017 Chronic kidney disease, stage III (moderate) N18.3 and Type 2 diabetes mellitus with diabetic polyneuropathy E11.42 [facility] [address] [place] [address] 91045- 9398 Dec, [facility] [address] 04572- 2777 23 Nov, 2017 Ulcer of right heel L97.419 and Type 2 diabetes mellitus with diabetic polyneuropathy E11.42 [facility] [address] [place] [address] [id number] Nov, Dental examination Z01.20 [place] [id number] [place] [address] 98236- 2622 Nov, Open wound of right foot, initial encounter S91.301A [facility] [id number] [place] [address] 22496 -9251 Nov, Open wound of right foot, initial encounter S91.301A ; Non- intractable vomiting with nausea, unspecified vomiting type R11.2 and BMI 60.0- 69.9, adult Z68.44 [facility] [id number] [place] [address] 02064- 2466 Nov, [place] [address] 08534- 9663 Nov, Other chronic pain G89.29 [place] [address] 92022- 6956 Oct, Cellulitis of right lower limb L03.115 [facility] [id number] [place] [address] 64035- 1430 Oct, [place] [address] 73881- 6643 Oct, [facility] [id number] [place] [address] 18422- 6946 Oct, Cat scratch W55.03XA ; Cellulitis of right lower limb L03.115 ; Acute nasopharyngitis J00 ; BMI 60.0-69.9, adult Z68.44 and Cough R05 [place] [id number] [place] [address] 07654- 4674 Oct, Cat scratch W55.03XA ; Cutaneous abscess of right lower extremity L02.415 and Cellulitis of right lower limb L03.115 [facility] [id number] [place] [address] 87153- 8753 Oct, Type 2 diabetes mellitus with diabetic polyneuropathy E11.42 [place] [address] [place] [address]- 8897 Oct, Other chronic pain G89.29 [place] [address] 06900- 3393 Aug, [facility] [id number] [place] [address] 51794- 6190 Jul, Other chronic pain G89.29 [place] [address] 88706- 4344 Jul, [place] [address] 25379- 4237 Jul, Chronic kidney disease, stage III (moderate) N18.3 [place] [address] 91474- 3915 Jul, Type 2 diabetes mellitus with diabetic polyneuropathy E11.42 ; Essential hypertension I10 ; Irregular menstrual cycle N92.6 ; Hypertriglyceridemia E78.1 ; Anxiety disorder, unspecified F41.9 ; Severe episode of recurrent major depressive disorder, without psychotic features F33.2 ; Tonsillolith J35.8 ; Intrinsic eczema L20.84 ; Subclinical hypothyroidism E03.9 ; Viral pharyngitis J02.9 and Encounter for immunization Z23 [place] [id number] [place] [address] 13604- 8236 13 Jun, 2017 Essential hypertension I10 [address] 25463- 0736 08 Jun, 2017 [place] [id number] [place] [address] 72700- 5257 Jun, [place] [address] 47655- 2910 May, Moderate persistent asthma without complication J45.40 [id number] [place] [address] 81054- 3326 May, Pain in right foot M79.671 ; Pain in left foot M79.672 ; Other chronic pain G89.29 and Chronic prescription opiate use Z79.891 [facility] [address], [place] [address]- 4092 May, [facility] [id number] [place] [address] 35662- 3590 May, [facility] [id number] [place] [address] 23191- 9054 Apr, [facility] [id number] [place] [address] 10564- 8328 Apr, Chronic migraine G43.709 [facility] [id number] [place] [address] 22899- 8916 Apr, Essential hypertension I10 ; Hypertriglyceridemia E78.1 and Chronic migraine G43.709 [facility] [id number] [place] [address] 70661- 5014 Apr, [facility] [id number] [place] [address] 16638- 6902 Apr, Sore throat J02.9 [facility] [id number] [place] [address] 41967- 5306 Apr, [facility] [id number] [place] [address] 94968- 9927 Mar, Strep pharyngitis J02.0 and Non-intractable vomiting with nausea, unspecified vomiting type R11.2 [facility] [id number] [place] [address] 61636- 8455 Mar, [facility] [id number] [place] [address] 99340- 7904 Mar, [facility] [id number] [place] [address] 22124- 9033 Mar, [facility] [id number] [place] [address] 38371- 5961 Mar, Type 2 diabetes mellitus with diabetic polyneuropathy E11.42 ; Moderate persistent asthma without complication J45.40 ; Status post amputation of toe of left foot Z89.422 ; Acute seasonal allergic rhinitis, unspecified trigger J30.2 and Left shoulder pain, unspecified chronicity M25.512 [place] [id number] [place] [address] 43071- 3902 Mar, [place] [id number] [place] [address] 37864- 7129 February, Pre-op evaluation Z01.818 ; Type 2 diabetes mellitus with diabetic polyneuropathy E11.42 and Type 2 diabetes mellitus with foot ulcer E11.621 [place] [id number] [place] [address] 39908- 1538 February, [place] [id number] [place] [address] 31777- 0160 February, [place] [id number] [place] [address] 25409- 7760 February, Toe infection L08.9 and Type 2 diabetes mellitus with other specified complication E11.69 [place] [id number] [place] [address] 22368- 0652 February, [place] [id number] [place] [address] 80296- 5860 Jan, Type 2 diabetes mellitus with diabetic polyneuropathy E11.42 [place] [id number] [place] [address] 02892- 4096 Jan, [place] [id number] [place] [address] 96438- 5350 Jan, Right upper quadrant pain R10.11 and Intractable vomiting with nausea, unspecified vomiting type R11.2 [place] [id number] [place] [address] 65269- 7121 Jan, Hypertriglyceridemia E78.1 and Essential hypertension I10 [place] [id number] [place] [address] 77372- 5345 Jan, Essential hypertension I10 ; Type 2 diabetes mellitus with diabetic polyneuropathy E11.42 and Hypertriglyceridemia E78.1 [facility] [id number] [place] [address] 38187- 2719 16 Dec, 2016 Type 2 diabetes mellitus with diabetic polyneuropathy E11.42 [facility] [id number] [place] [address] 53681- 1798 15 Dec, 2016 Hypertriglyceridemia E78.1 ; Essential hypertension I10 ; Type 2 diabetes mellitus with diabetic polyneuropathy E11.42 ; Anxiety disorder , unspecified F41.9 and Moderate persistent asthma without complication J45.40 [facility] [id number] [place] [address] 72748- 6684 Dec, Type 2 diabetes mellitus with diabetic polyneuropathy E11.42 [facility] [id number] [place] [address] [id number] Dec, [facility] [address] 95316- 4252 Nov, [facility] [id number] [place] [address] 06319- 1987 Nov, [facility] [address] 79835- 2302 Nov, [facility] [id number] [place] [address] 04905- 2581 Nov, Toe infection L08.9 [facility] [id number] [place] [address] 80995- 2385 Nov, [facility] [id number] [place] [address] 12564- 5427 Oct, History of amputation of hallux Z89.419 [facility] [id number] [place] [address] 98403- 6402 Oct, Type 2 diabetes mellitus with diabetic polyneuropathy E11.42 [facility] [id number] [place] [address] 60666- 5055 Oct, Type 2 diabetes mellitus with diabetic polyneuropathy E11.42 [facility] [address], [place] [address]- 5753 Oct, Acute osteomyelitis of left foot M86.172 ; Pre-op exam Z01.818 and Type 2 diabetes mellitus with diabetic polyneuropathy E11.42 [facility] [address], [place] [address]- 8653 Oct, Foot ulcer, left, with unspecified severity L97.529 ; Acute osteomyelitis of left foot M86.172 and Type 2 diabetes mellitus with diabetic polyneuropathy E11.42 [facility] [address], [place] [address]- 8519 Sep, [facility] [id number] [place] [address] 75293- 9546 Sep, Intractable vomiting with nausea, unspecified vomiting type R11.2 and Right upper quadrant pain R10.11 [facility] [address], [place] [address]- 6106 Aug, [facility] [address] [address]- 0509 Jul, [facility] [address] [address]- 1751 Jul, Preop examination Z01.818 [facility] [address], [place] [address]- 8506 Jul, [facility] [address], [place] [address]- 2648 Jul, [facility] [address], [place] [address]- 2797 Jul, Chronic osteomyelitis of left foot M86.672 and Ulcer of left foot, with unspecified severity L97.529 [facility] [address], [place] [address]- 9341 Jul, Non-pressure chronic ulcer of other part of left foot with unspecified severity L97.529 [facility] [address], [place] [address]- 7992 Jul, [facility] [id number] [place] [address] 72861- 3117 Jul, [facility] [id number] [place] [address] 14334- 3835 Jun, [facility] [id number] [place] [address] 89830- 4343 27 Jun, 2016 [facility] [id number] [place] [address] 16015- 4440 Jun, [facility] [id number] [place] [address] 12932- 3493 21 Jun, 2016 Right upper quadrant pain R10.11 [facility] [id number] [place] [address] 21003- 8471 20 Jun, 2016 [facility] [id number] [place] [address] 67803- 3520 19 Jun, 2016 Intractable vomiting with nausea, unspecified vomiting type R11.2 [facility] [id number] [place] [address] 25727- 6102 13 Jun, 2016 Right upper quadrant pain R10.11 ; Migraine with aura and with status migrainosus, not intractable G43.101 and Intractable vomiting with nausea, unspecified vomiting type R11.2 [facility] [address] [place] [address] 93823- 4862 12 Jun, 2016 [facility] [id number] [place] [address] 38118- 7512 Jun, Gastroenteritis K52.9 [facility] [id number] [place] [address] 33516- 8690 May, [facility] [id number] [place] [address] 45386- 9987 May, Hypertriglyceridemia E78.1 ; Essential hypertension I10 ; Type 2 diabetes mellitus with diabetic polyneuropathy E11.42 ; Moderate persistent asthma without complication J45.40 ; Type 2 diabetes mellitus with foot ulcer E11.621 ; Other chronic pain G89.29 ; Pain in right leg M79.604 ; Pain of left leg M79.605 ; Rash and nonspecific skin eruption R21 and Anxiety disorder, unspecified F41.9 [place] [id number] [place] [address] 15650- 1272 May, Essential hypertension I10 ; Hypertriglyceridemia E78.1 ; Upper respiratory infection J06.9 ; Subclinical hypothyroidism E03.9 and Type 2 diabetes mellitus with diabetic polyneuropathy E11.42 [place] [address] 69411- 2647 Apr, Hypertriglyceridemia E78.1 ; Subclinical hypothyroidism E03.9 ; Essential hypertension I10 and Type 2 diabetes mellitus with diabetic polyneuropathy E11.42 [place] [id number] [place] [address] 26660- 8188 Mar, [place] [id number] [place] [address] 97819- 4289 Mar, Ulcer of right heel L97.419 [place] [id number] [place] [address] 26691- 5941 Mar, [place] [id number] [place] [address] 66703- 7655 Mar, [place] [id number] [place] [address] 36415- 5467 February, [place] [id number] [place] [address] 47746- 6675 February, Ulcer of right heel L97.419 and DM neuro manif type II E11.49 [place] [id number] [place] [address] 75053- 6216 Jan, [place] [id number] [place] [address] 14391- 0933 Jan, Ulcer of right heel L97.419 ; Type 2 diabetes mellitus with foot ulcer E11.621 and Non-pressure chronic ulcer of other part of left foot with unspecified severity L97.529 [facility] [id number] [place] [address] 09236- 0132 Jan, [facility] [id number] [place] [address] 84614- 6908 Jan, [facility] [address] 51184- 3384 Jan, Infection of toenail L03.039 [place] [address] 77301- 1659 Jan, Blister of toe of left foot, initial encounter S90.425A and Type 2 diabetes mellitus with diabetic polyneuropathy E11.42 [place] [address] 16211- 7694 Jan, [facility] [id number] [place] [address] 63393 -6543 Jan, Sore throat J02.9 and Strep pharyngitis J02.0 [place] [id number] [place] [address] 79055- 9611 Dec, Type 2 diabetes mellitus with diabetic polyneuropathy E11.42 ; Upper respiratory infection J06.9 ; Cough R05 and Asthma exacerbation J45.901 [place] [id number] [place] [address] 56902- 6641 Oct, [facility] [id number] [place] [address] 49867- 9356 Oct, [facility] [address] 41728- 6338 Oct, [facility] [id number] [place] [address] 40219- 4483 Oct, [facility] [address] 99336- 7612 Sep, [place] [id number] [place] [address] 65316- 9128 Aug, Anxiety disorder, unspecified F41.9 and Obesity E66.9 [place] [id number] [place] [address] 27165- 9299 Aug, Moderate persistent asthma without complication J45.40 [place] [address] 94642- 2179 Aug, Anxiety disorder, unspecified F41.9 [place] [id number] [place] [address] 76910- 1002 Aug, Chronic migraine G43.709 ; Encounter for immunization Z23 ; Hypertriglyceridemia E78.1 ; Type 2 diabetes mellitus with diabetic polyneuropathy E11.42 ; Moderate persistent asthma without complication J45.40 and Morbid obesity E66.[address] 99983- 1244 Jul, [place] [id number] [place] [address] 64613- 5616 Jul, [address] 89597- 2928 Jul, [place] [id number] [place] [address] 05032- 5311 Jul, Subclinical hypothyroidism E03.9 [place] [id number] [place] [address] 78095- 0143 Jun, Essential hypertension, benign 401.1 ; Diabetic ulcer of lower extremity 250.80 ; Asthma 493.90 ; Diabetes mellitus type II, uncontrolled 250.02 and Hyperlipidemia associated with type 2 diabetes mellitus 250.80 [place] [id number] [place] [address] 35287- 9905 Jun, [place] [id number] [place] [address] 40725- 7869 Jun, [address] [id number] [address]- 5329 May, [facility] [id number] [place] [address] 25614- 7814 Apr, [facility] [id number] [place] [address] 23154- 2123 Apr, Viral upper respiratory infection 465.9 and Asthma 493.90 [facility] [id number] [place] [address] 16981- 3019 Mar, Abnormal ankle brachial index 796.4 [facility] [id number] [place] [address] [id number] [id number] February, [facility] [id number] [place] [address] [id number]- [id number] February, Essential hypertension, benign 401.1 [facility] [id number] [place] [address] [id number]- [id number] February, Diabetic peripheral neuropathy 250.60 ; Ulcer of heel and midfoot 707.14 and Decreased pedal pulses 785.9 [facility] [id number] [place] [address] [id number]- [id number] February, [facility] [id number] [place] [address] [id number]- [id number] February, [facility] [id number] [place] [address] [id number]- [id number] Jan, [facility] [id number] [place] [address] [id number] [id number] Jan, [facility] [id number] [place] [address]1243- 7490 Dec, [facility] [id number] [place] [address] 83571- 3336 Dec, [facility] [id number] [place] [address] 35537- 0751 Nov, [facility] [place] [facility] [address] [id number] [place] [address]- 9054 Nov, 2014 [facility] [place] [facility] [address] [id number] [place] [address]- 9616 Nov, 2014 [facility] [place] [facility] [address] [id number] [place] [address]- 8482 Nov, 2014 [facility] [place] [facility] [address] [id number] [place] [address]- 9465 Nov, 2014 [facility] [place] [facility] [address] [id number] [place] [address]- 6484 Nov, 2014 [facility] [place] [facility] [address] [id number] [place] [address]- 8966 Nov, 2014 [facility] [place] [facility] [address] [facility] [id number] [place] [address]- 9172 Nov, [facility] [place] [facility] [address] [id number] [place] [address]- 3344 Nov, [facility] [place] [facility] [address] [id number] [place] [address]- 9134 Oct, [facility] [place] [facility] [address] [facility] [id number] [place] [address]- 9355 Oct, [facility] [place] [facility] [address] [facility] [id number], [place] [address]- 7787 Oct, [facility] [place] [facility] [address] [id number], [place] [address]- 4978 Oct, [facility] [place] [facility] [address] [id number] [place] [address] 2540 Oct, [facility] [place] [facility] [address] [id number] [place] [address]- 7987 Oct, [facility] [place] [facility] [address] [facility] [id number], [place] [address]- 8146 Oct, [facility] [place] [facility] [address] [id number], [place] [address]- 9256 Oct, [facility] [address] [id number] [place] [address]- 7836 Oct, [facility] [place] [facility] [address] [id number] [place] [address]- 0612 Oct, [facility] [address] [id number] [place] [address]- 4647 Oct, [facility] [place] [facility] [address] [id number] [place] [address]- 8142 Oct, [facility] [address] [id number] [place] [address]- 7993 Oct, [facility] [address] [id number] [place] [address]- 4749 Sep, [facility] [address] [id number] [place] [address]- 2908 Sep, [facility] [place] [facility] [address] [id number] [place] [address]- 1466 Sep, [facility] [address] [id number] [place] [address]- 1265 Sep, [facility] [place] [facility] [address] [facility] [id number] [place] [address]- 2518 Sep, [facility] [address] [id number] [place] [address]- 8425 Sep, [facility] [place] [facility] [address] [id number] [place] [address]- 8861 Sep, [facility] [place] [facility] [address] [id number] [place] [address]- 5474 Sep, [facility] [place] [facility] [address] [id number] [place] [address]- 0608 Sep, [facility] [place] [facility] [address] [id number] [place] [address]- 2099 Sep, [facility] [place] [facility] [address] [id number] [place] [address]- 7201 Sep, [facility] [place] [facility] [address] [id number] [place] [address]- 3563 Sep, [facility] [place] [facility] [address] [id number] [place] [address]- 3367 Sep, [facility] [place] [facility] [address] [id number] [place] [address]- 2237 Sep, [facility] [place] [facility] [address] [id number] [place] [address]- 1015 Sep, [facility] [place] [facility] [address] [id number] [place] [address]- 6536 Sep, [facility] [place] [facility] [address] [id number] [place] [address]- 9657 Aug, [facility] [place] [facility] [address] [id number] [place] [address]- 4067 Aug, [facility] [place] [facility] [address] [id number] [place] [address]- 9922 Aug, [facility] [place] [facility] [address] [id number] [place] [address]- 9195 Aug, [facility] [place] [facility] [address] [id number] [place] [address]- 9244 Aug, [facility] [place] [facility] [address] [id number] [place] [address]- 0428 Aug, [facility] [place] [facility] [address] [id number] [place] [address]- 5376 Aug, [facility] [place] [facility] [address] [id number] [place] 0684 Aug, [facility] [place] [facility] [address] [id number] [place] [address]- 4368 Jul, [facility] [place] [facility] [address] [id number] [place] [address]- 6906 Jul, [facility] [place] [facility] [address] [id number] [place] [address]- 5276 30 Jul, 2014 [facility] [place] [facility] [address] [id number] [place] [address]- 7040 Jul, [facility] [place] [facility] [address] [id number] [place] [address]- 8470 Jul, [facility] [place] [facility] [address] [id number] [place] [address]- 9636 Jun, [facility] [place] [facility] [address] [id number] [place] [address]- 7474 Jun, [facility] [place] [facility] [address] [id number] [place] [address]- 8517 Jun, [facility] [place] [facility] [address] [id number] [place] [address]- 7095 Jun, [facility] [place] [facility] [address] [id number] [place] [address]- 5559 Jun, [facility] [place] [facility] [address] [id number] [place] [address]- 4380 May, [facility] [place] [facility] [address] [id number] [place] [address]- 2879 May, [facility] [place] [facility] [address] [id number] [place] [address]- 2581 Apr, [facility] [place] [facility] [address] [id number], [place] [address]- 9591 Apr, [facility] [place] [facility] [address] [id number] [place] [address]- 0774 Apr, [facility] [place] [facility] [address] [id number] [place] [address]- 1084 Apr, [facility] [place] [facility] [address] [id number] [place] [address]- 9344 Apr, [facility] [place] [facility] [address] [id number] [place] [address]- 5702 Apr, [facility] [place] [facility] [address] [id number] [place] [address]- 3722 Mar, [facility] [place] [facility] [address] [id number] [place] [address]- 5792 Mar, [facility] [place] [facility] [address] [id number] [place] [address]- 4409 Mar, [facility] [place] [facility] [address] [id number] [place] [address]- 6177 Mar, [facility] [place] [facility] [address] [id number] [place] [address]- 1650 Mar, [facility] [place] [facility] [address] [id number] [place] [address]- 6136 Mar, [facility] [place] [facility] [address] [id number] [place] [address]- 2608 Mar, [facility] [place] [facility] [address] [id number] [place] [address]- 4980 Mar, [facility] [place] [facility] [address] [id number] [place] [address]- 8019 Mar, [facility] [place] [facility] [address] [id number] [place] [address]- 2393 Mar, [facility] [place] [facility] [address] [id number] [place] [address]- 5744 Mar, [facility] [place] [facility] [address] [id number] [place] [address]- 7040 Mar, [facility] [place] [facility] [address] [id number] [place] [address]- 7272 Mar, [facility] [place] [facility] [address] [id number] [place] [address]- 6140 Mar, [facility] [place] [facility] [address] [id number] [place] [address]- 6451 Mar, [facility] [place] [facility] [address] [id number] [place] [address]- 4927 Mar, [facility] [place] [facility] [address] [id number] [place] [address]- 7762 February, [facility] [place] [facility] [address] [id number] [place] [address]- 1315 February, [facility] [place] [facility] [address] [id number] [place] [address]- 0170 February, [facility] [place] [facility] [address] [id number] [place] [address]- 8418 February, [facility] [place] [facility] [address] [id number] [place] [address]- 5278 February, [facility] [place] [facility] [address] [id number] [place] [address]- 0290 February, [facility] [place] [facility] [address] [id number] [place] [address]- 6599 February, [facility] [place] [facility] [address] [id number] [place] [address]- 4109 February, [facility] [place] [facility] [address] [id number] [place] [address]- 1973 Jan, [facility] [place] [facility] [address] [id number] [place] [address]- 4401 Jan, [facility] [place] [facility] [address] [id number] [place] [address]- 2028 Dec, [facility] [place] [facility] [address] [id number] [place] [address]- 2669 Dec, [facility] [place] [facility] [address] [id number] [place] [address]- 2022 Dec, [facility] [place] [facility] [address] [id number] [place] [address]- 3338 Dec, [facility] [place] [facility] [address] [id number] [place] [address]- 2546 24 Dec, 2013 [facility] [place] [facility] [address] [id number] [place] [address]- 9427 24 Dec, 2013 [facility] [place] [facility] [address] [id number] [place] [address]- 0714 Dec, [facility] [place] [facility] [address] [id number] [place] [address]- 1316 Dec, [facility] [place] [facility] [address] [id number] [place] [address]- 9175 17 Dec, 2013 [facility] [place] [facility] [address] [id number] [place] [address]- 4148 17 Dec, 2013 [facility] [place] [facility] [address] [id number] [place] [address]- 2466 Dec, [facility] [place] [facility] [address] [id number] [place] [address]- 2466 Dec, [facility] [place] [facility] [address] [id number] [place] [address]- 1601 Dec, [facility] [place] [facility] [address] [id number] [place] [address]- 9452 Dec, [facility] [place] [facility] [address] [id number] [place] [address]- 6537 Nov, [facility] [place] [facility] [address] [id number] [place] [address]- 9403 Nov, [facility] [place] [facility] [address] [id number] [place] [address]- 3893 Oct, [facility] [place] [facility] [address] [id number] [place] [address]- 2755 Oct, [facility] [place] [facility] [address] [id number] [place] [address]- 9748 Oct, [facility] [place] [facility] [address] [id number] [place] [address]- 4136 Oct, [facility] [place] [facility] [address] [id number] [place] [address]- 0559 16 Oct, 2013 [facility] [address] [id number] [place] [address]- 1703 Oct, [facility] [address] [id number] [place] [address]- 7446 Oct, [facility] [address] [id number] [place] [address]- 7117 31 Sep, 2013 [facility] [address] [id number] [place] [address]- 3042 Sep, [facility] [address] [id number] [place] [address]- 3808 Sep, [facility] [address] [id number] [place] [address]- 4110 29 Sep, 2013 [facility] [address] [id number] [place] [address]- 2745 Sep, [facility] [address] [id number] [place] [address]- 1891 Sep, [facility] [address] [id number] [place] [address]- 8159 Sep, [facility] [address] [id number] [place] [address]- 1411 Sep, [facility] [address] [id number] [place] [address]- 3624 Sep, [facility] [address] [id number] [place] [address]- 2044 Sep, [facility] [place] [facility] [address] [id number] [place] [address]- 6923 Sep, [facility] [place] [facility] [address] [id number] [place] [address]- 9876 Sep, [facility] [place] [facility] [address] [id number] [place] [address]- 8621 Sep, [facility] [place] [facility] [address] [id number] [place] [address]- 6415 Sep, [facility] [place] [facility] [address] [id number] [place] [address]- 4764 Sep, [facility] [place] [facility] [address] [id number] [place] [address]- 0999 Sep, [facility] [place] [facility] [address] [id number] [place] [address]- 4805 Sep, [facility] [place] [facility] [address] [id number] [place] [address]- 4354 Sep, [facility] [place] [facility] [address] [id number] [place] [address]- 4690 Sep, [facility] [place] [facility] [address] [id number] [place] [address]- 7678 Aug, [facility] [place] [facility] [address] [id number] [place] [address]- 5506 Aug, [facility] [place] [facility] [address] [id number] [place] [address]- 5002 Aug, [facility] [place] [facility] [address] [id number] [place] [address]- 3343 Aug, [facility] [place] [facility] [address] [id number] [place] [address]- 7189 Aug, [facility] [place] [facility] [address] [id number], [place] [address]- 6631 Aug, [facility] [place] [facility] [address] [id number] [place] [address]- 1754 Aug, [facility] [place] [facility] [address] [id number] [place] [address]- 6059 Aug, [facility] [place] [facility] [address] [id number] [place] [address]- 5758 Aug, [facility] [place] [facility] [address] [id number] [place] [address]- 9042 Aug, [facility] [place] [facility] [address] [id number] [place] [address]- 4889 Aug, [facility] [place] [facility] [address] [id number] [place] [address]- 7514 Aug, [facility] [place] [facility] [address] [id number] [place] [address]- 2557 Aug, [facility] [place] [facility] [address] [id number] [place] [address]- 5601 Aug, [facility] [place] [facility] [address] [id number] [place] [address]- 5658 Aug, [facility] [place] [facility] [address] [id number] [place] [address]- 2168 Aug, [facility] [place] [facility] [address] [id number] [place] [address]- 7923 Aug, [facility] [place] [facility] [address] [id number] [place] [address]- 5478 Jul, [facility] [place] [facility] [address] [id number] [place] [address]- 9208 Jul, [facility] [place] [facility] [address] [facility] [id number] [place] [address]- 7095 Jul, [facility] [place] [facility] [address] [id number] [place] [address]- 6135 Jul, [facility] [place] [facility] [address] [id number], [place] [address]- 1052 Jul, [facility] [place] [facility] [address] [id number] [place] [address]- 3291 Jul, [facility] [place] [facility] [address] [facility] [id number] [place] [address]- 8524 Jul, [facility] [place] [facility] [address] [facility] [id number], [place] [address]- 7819 Jun, [facility] [place] [facility] [address] [id number], [place] [address]- 3051 20 Jun, 2012 [facility] [address] [id number] [place] [address]- 9769 17 Jun, 2012 [facility] [address] [id number], [place] [address]- 1898 10 Jun, 2012 [facility] [address] [id number] [place] [address]- 6165 06 Jun, 2012 [facility] [address] [id number] [place] [address]- 0842 06 Jun, 2012 [facility] [address] [id number] [place] [address]- 3932 05 Jun, 2012 [facility] [address] [facility] [id number], [place] [address]- 1910 03 Jun, 2012 [facility] [address] [facility] [id number], [place] [address]- 8484 27 May, 2013 [facility] [address] [facility] [id number], [place] [address]- 1677 May, [facility] [address] [facility] [id number], [place] [address]- 7022 15 May, 2013 [facility] [address] [facility] [id number], [place] [address]- 1843 14 May, 2013 [facility] [address] [facility] [id number], [place] [address]- 4439 May, [facility] [address] [facility] [id number], [place] [address]- 9340 May, [facility] [address] [facility] [id number], [place] [address]- 0965 May, [facility] [address] [facility] [id number], [place] [address]- 8381 08 May, 2013 IMMUNIZATIONS No Known Immunizations SOCIAL HISTORY Never Assessed REASON FOR VISIT Controlled Medication Refill/Dental concerns PLAN OF CARE VITAL SIGNS MEDICATIONS Medication [...] of feet Surgical History appendectomy Davida Walsh [facility] 1995 Surgical History salpingectomy [facility] Surgical History bladder surgery-stretch [facility] Surgical History exploratory laparoscopy [facility] 1995 Surgical History amputation, toe (R great) Surgical History amputation, (R forefoot) 2014 Surgical History amputation, toe Left second 12/2016 Surgical History amputation, 4th left toe 02/2017 Hospitalization History Left foot cellulitis, left 2nd toe amputation-[facility] 12/23 Hospitalization History Surgery Hospitalizations
--- OUTSIDE RECORDS SUMMARY | 2018-08-22 09:23 | XMS REPORT ---
Author Author LUDIVINA STEPHANIE [facility] Address [address] [place] [address] Care Team Providers Care Sub Plant Manager Name Role Phone LUDIVINADEE DEESTEPHANIE Unavailable PROBLEMS Type Condition ICD9-CM Code NHB26-LD Code Onset Dates Condition Status SNOMED Code Problem Type 2 diabetes mellitus with foot ulcer E11.621 Active 72614038 Problem History of amputation of hallux Z89.419 Active 444578256 Problem DM neuro manif type II E11.49 Active 26034724 Problem Pain in right foot M79.671 Active 92058953 Problem Pain in left foot M79.672 Active 68410040 Problem Status post amputation of toe of left foot Z89.422 Active 472967594 Problem Type 2 diabetes mellitus with other specified complication E11.69 Active 349451401 Problem Other chronic pain G89.29 Active 75741414 Problem Chronic prescription opiate use Z79.891 Active 161156934 Problem Irregular menstrual cycle N92.6 Active 72854330 Problem Moderate persistent asthma without complication J45.40 Active 811755451 Problem Essential hypertension I10 Active 57582803 Problem Type 2 diabetes mellitus with diabetic polyneuropathy E11.42 Active 094606742 Problem Hypertriglyceridemia E78.1 Active 829340613 Problem Type 2 diabetes mellitus with other skin complications E11.628 Active 15518320 Problem Chronic migraine G43.709 Active 37527721 Problem Anxiety disorder, unspecified F41.9 Active 959716238 Problem Subclinical hypothyroidism E03.9 Active 29007937 Problem Obesity E66.9 Active 164353871 ALLERGIES No Information SOCIAL HISTORY Never Assessed PLAN OF CARE VITAL SIGNS MEDICATIONS Medication Instructions Dosage Frequency Start Date End Date Duration Status Hydrocodone-Acetaminophen 5-325 MG Orally every 4- 6 hrs as needed 1 tablet February, Active RESULTS No Results PROCEDURES No Known procedures IMMUNIZATIONS No Known Immunizations MEDICAL (GENERAL) HISTORY Type Description Date Medical History type I diabetes Medical History hypertension Medical History hyperlipidemia Medical History asthma Medical History migraine headaches Medical History allergic rhinitis Medical History neuropathy Medical History Chronic osteomyelitis, site unspecified Surgical History appendectomy [facility] 1995 Surgical History salpingectomy [facility] Surgical History bladder surgery-stretch [facility] 2003 Surgical History exploratory laparoscopy [facility] 1995 Surgical History amputation, toe (R great) Surgical History amputation, (R forefoot) 2014 Surgical History amputation, toe Left second 12/2016 Surgical History amputation, 4th left toe 02/2017 Hospitalization History Left foot cellulitis, left 2nd toe amputation-[facility] 12/23
--- OUTSIDE RECORDS SUMMARY | 2018-08-22 09:23 | XMS REPORT ---
Author Author DOMITILA UMANA Organization [facility] Address [address] [place] [address] Care Team Providers Care Terminal Superintendent Name Role Phone DOMITILA UMANA Unavailable PROBLEMS Type Condition ICD9-CM Code [id number] Code Onset Dates Condition Status SNOMED Code Problem Type 2 diabetes mellitus with foot ulcer E11.621 Active 23304494 Problem History of amputation of hallux Z89.419 Active 585537657 Problem DM neuro manif type II E11.49 Active 39627041 Problem Pain in right foot M79.671 Active 25623910 Problem Pain in left foot M79.672 Active 50634738 Problem Status post amputation of toe of left foot Z89.422 Active 994214846 Problem Type 2 diabetes mellitus with other specified complication E11.69 Active 135216184 Problem Other chronic pain G89.29 Active 25095008 Problem Chronic prescription opiate use Z79.891 Active 282554417 Problem Irregular menstrual cycle N92.6 Active 64803305 Problem Moderate persistent asthma without complication J45.40 Active 368019739 Problem Essential hypertension I10 Active 21066175 Problem Type 2 diabetes mellitus with diabetic polyneuropathy E11.42 Active 547549537 Problem Hypertriglyceridemia E78.1 Active 822644967 Problem Type 2 diabetes mellitus with other skin complications E11.628 Active 15551362 Problem Chronic migraine G43.709 Active 49777209 Problem Anxiety disorder, unspecified F41.9 Active 021166834 Problem Subclinical hypothyroidism E03.9 Active 17074661 Problem Obesity E66.9 Active 161380922 ALLERGIES No Information SOCIAL HISTORY Never Assessed PLAN OF CARE VITAL SIGNS MEDICATIONS Medication Instructions Dosage Frequency Start Date End Date Duration Status Metformin HCl 1000 MG Orally Twice a day 1 tablet with meals 12h May, 90 days Active Pulmicort Flexhaler 90 MCG/ACT Inhalation Twice a day 1 puff 12h Jun, Active Hydrocodone-Acetaminophen 5-325 MG Orally every 4- 6 hrs as needed 1 tablet February, Active Promethazine HCl 25 MG Orally every 4 hours 1 tablet as needed 4h 20 Jun, 2016 Active Hydrochlorothiazide 25 MG Orally Once a day 1 tablet 24h 90 days Active NovoLog Flexpen 100 UNIT/ML Subcutaneous 3 times a day 30 units 8h Jan, 90 days Active Clindamycin HCl 150 MG Orally 3 times a day 1 capsule 8h Dec, Dec, Active Albuterol Sulfate 90 mcg/actuation Inhalation every 4-6 hours as needed 2 puffs May, Active Atorvastatin Calcium 40 MG Orally Once a day 1 tablet 24h Aug, 90 days Active Metoprolol Tartrate 50 mg Orally Twice a day 1 tablet with food 12h 90 days Active Multivitamin 1 Tablet 1 time per day May, Active Levemir Flexpen 100 UNIT/ML subcutaneously 2 times a day 50 units 12h 90 days Active Ibuprofen 200 mg Orally 3 times a day 4 tablet as needed 8h Active Nystatin 100,000 unit/gram apply to the affected area(s) by Topical route 4-8 times per day as needed Jun, Active Montelukast Sodium 10 mg Orally Once a day 1 tablet in the evening 24h 90 days Active Fenofibrate 160 MG Orally Once a day 1 tablet with a meal 24h May, 90 days Active Phenergan 25 MG Rectal every 4-6 hours as needed 1 suppository as needed Sep, Active Sertraline HCl 50 mg Orally Once a day 1 tablet 24h 90 days Active Excedrin Migraine 250-250-65 MG Orally as directed 2 tablets as needed Active Gabapentin 300 MG Orally 3 times a day 1 capsule 8h Aug, 90 days Active Lisinopril 40 mg Orally Once a day 1 tablet 24h Jul, 90 days Active cromolyn 4 % instill 2 drops into affected eye(s) by Ophthalmic route 2 times per day Jun, Active RESULTS No Results PROCEDURES No Known procedures IMMUNIZATIONS No Known Immunizations MEDICAL (GENERAL) HISTORY Type Description Date Medical History type I diabetes Medical History hypertension Medical History hyperlipidemia Medical History asthma Medical History migraine headaches Medical History allergic rhinitis Medical History neuropathy Medical History Chronic osteomyelitis, site unspecified Surgical History appendectomy [facility] 1995 Surgical History salpingectomy [facility] Surgical History bladder surgery-stretch [facility] 2003 Surgical History exploratory laparoscopy [facility] 1995 Surgical History amputation, toe (R great) Surgical History amputation, (R forefoot) 2014 Surgical History amputation, toe Left second 12/2016 Surgical History amputation, 4th left toe 02/2017 Hospitalization History Left foot cellulitis, left 2nd toe amputation-[facility] 12/23
--- OUTSIDE RECORDS SUMMARY | 2018-08-22 09:24 | XMS REPORT ---
Author Author LUDIVINA STEPHANIE [facility] Address [address] [place] [address] Care Team Providers Care Policy Change Clerk Name Role Phone LUDIVINADEE DEE FAIRCHILDHANY Unavailable PROBLEMS Type Condition ICD9-CM Code BBB44-BF Code Onset Dates Condition Status SNOMED Code Problem Subclinical hypothyroidism E03.9 Active 84173491 Problem History of amputation of hallux Z89.419 Active 117386062 Problem Hypertriglyceridemia E78.1 Active 663332544 Problem Type 2 diabetes mellitus with other specified complication E11.69 Active 691967014 Problem Type 2 diabetes mellitus with diabetic polyneuropathy E11.42 Active 034059680 Problem Status post amputation of toe of left foot Z89.422 Active 896814350 Problem Pain in left foot M79.672 Active 61401306 Problem Other chronic pain G89.29 Active 54254276 Problem Ulcer of right heel L97.419 Active 811076604 Problem Intrinsic eczema L20.84 Active 10110103 Problem Irregular menstrual cycle N92.6 Active 87591973 Problem Type 2 diabetes mellitus with other skin complications E11.628 Active 70579748 Problem Type 2 diabetes mellitus with diabetic chronic 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 Active 181856184 Problem Chronic prescription opiate use Z79.891 Active 248435575 Problem Pain in right foot M79.671 Active 37816319 Problem Severe episode of recurrent major depressive disorder, without psychotic features F33.2 Active 80703917 Problem Tonsillolith J35.8 Active 7578962 Problem Chronic kidney disease, stage III (moderate) N18.3 Active 821727025 Problem Essential hypertension I10 Active 55521543 Problem Moderate persistent asthma without complication J45.40 Active 821585347 Problem Chronic migraine G43.709 Active 37253441 Problem Type 2 diabetes mellitus with foot ulcer E11.621 Active 81841349 Problem DM neuro manif type II E11.49 Active 13807766 Problem Anxiety disorder, unspecified F41.9 Active 998302577 Problem Obesity E66.9 Active 625594965 ALLERGIES No Information ENCOUNTERS Encounter Location Date Diagnosis [facility] [id number] [place] [address] 26132- 9270 February, [facility] [id number] [place] [address] 42900- 4352 Dec, Type 2 diabetes mellitus with diabetic polyneuropathy E11.42 [facility] [address] 94628- 0208 Dec, Type 2 diabetes mellitus with diabetic polyneuropathy E11.42 [place] [address] 54972- 6844 15 Dec, 2017 [place] [address] 32328- 9441 Dec, [facility] [address] 70630- 5902 Dec, Chronic kidney disease, stage III (moderate) N18.3 [facility] [id number] [place] [address] 22963 -2417 09 Dec, 2017 Nausea R11.0 and Diarrhea, unspecified type R19.7 [place] [facility] [id number] [place] [address] 81898- 3357 Dec, Chronic kidney disease, stage III (moderate) N18.3 and Type 2 diabetes mellitus with diabetic polyneuropathy E11.42 [facility] [id number] [place] [address] 08262- 6129 Dec, [facility] [id number] [place] [address] 98561- 3788 Nov, Ulcer of right heel L97.419 and Type 2 diabetes mellitus with diabetic polyneuropathy E11.42 [facility] [id number] [place] [address] [id number] Nov, Dental examination Z01.20 [facility] [id number] [place] [address] 89773- 0665 Nov, Open wound of right foot, initial encounter S91.301A [facility] [id number] [place] [address] 10288 -1378 Nov, Open wound of right foot, initial encounter S91.301A ; Non- intractable vomiting with nausea, unspecified vomiting type R11.2 and BMI 60.0- 69.9, adult Z68.44 [facility] [address] 77353- 7064 Nov, [place] [address] 52227- 3015 Nov, Other chronic pain G89.29 [place] [address] 75216- 4848 Oct, Cellulitis of right lower limb L03.115 [place] [address] 28358- 3604 Oct, [place] [address] 84373- 7152 Oct, [place] [address] 46508- 5312 Oct, Cat scratch W55.03XA ; Cellulitis of right lower limb L03.115 ; Acute nasopharyngitis J00 ; BMI 60.0-69.9, adult Z68.44 and Cough R05 [facility] [facility] [id number] [place] [address] 65880- 8092 Oct, Cat scratch W55.03XA ; Cutaneous abscess of right lower extremity L02.415 and Cellulitis of right lower limb L03.115 [place] [address] 25526- 9158 Oct, Type 2 diabetes mellitus with diabetic polyneuropathy E11.42 [place] [address] 13704- 1601 Oct, Other chronic pain G89.29 [place] [facility] [id number] [place] [address] 86474- 5840 Aug, [place] [address] 22412- 2241 Jul, Other chronic pain G89.29 [place] [address] 77099- 9874 Jul, [place] [address] 04940- 5487 Jul, Chronic kidney disease, stage III (moderate) N18.[address] 88577- 1246 Jul, Type 2 diabetes mellitus with diabetic polyneuropathy E11.42 ; Essential hypertension I10 ; Irregular menstrual cycle N92.6 ; Hypertriglyceridemia E78.1 ; Anxiety disorder, unspecified F41.9 ; Severe episode of recurrent major depressive disorder, without psychotic features F33.2 ; Tonsillolith J35.8 ; Intrinsic eczema L20.84 ; Subclinical hypothyroidism E03.9 ; Viral pharyngitis J02.9 and Encounter for immunization Z23 [place] [address] 56947- 9371 13 Jun, 2017 Essential hypertension I10 [place] [address] 71918- 8020 08 Jun, 2017 [place] [address] 26810- 8612 07 Jun, 2017 [place] [address] 82666- 9670 May, Moderate persistent asthma without complication J45.[address] 86551- 3211 17 May, 2017 Pain in right foot M79.671 ; Pain in left foot M79.672 ; Other chronic pain G89.29 and Chronic prescription opiate use Z79.891 [place] [address] [place] [address]- 5195 May, [place] [id number] [place] [address] 00272- 8501 May, [place] [id number] [place] [address] 52915- 9443 Apr, [place] [address] 96851- 2864 Apr, Chronic migraine G43.709 [place] [address] 42986- 4255 Apr, Essential hypertension I10 ; Hypertriglyceridemia E78.1 and Chronic migraine G43.709 [place] [address] 80865- 4534 Apr, [place] [address] 19130- 3169 Apr, Sore throat J02.9 [place] [id number] [place] [address] 66526- 0256 Apr, [place] [address] 22405- 4031 Mar, Strep pharyngitis J02.0 and Non-intractable vomiting with nausea, unspecified vomiting type R11.2 [facility] [facility] [id number] [place] [address] 43841- 7790 Mar, [facility] [id number] [place] [address] 52103- 4761 Mar, [place] [id number] [place] [address] 08799- 4885 Mar, [place] [id number] [place] [address] 60775- 2827 Mar, Type 2 diabetes mellitus with diabetic polyneuropathy E11.42 ; Moderate persistent asthma without complication J45.40 ; Status post amputation of toe of left foot Z89.422 ; Acute seasonal allergic rhinitis, unspecified trigger J30.2 and Left shoulder pain, unspecified chronicity M25.512 [place] [address] [address]- 0025 Mar, [facility] [facility] [id number] [place] [address] 46458- 3122 February, Pre-op evaluation Z01.818 ; Type 2 diabetes mellitus with diabetic polyneuropathy E11.42 and Type 2 diabetes mellitus with foot ulcer E11.621 [place] [id number] [place] [address] 81371- 8116 February, [place] [id number] [place] [address] 25978- 9713 February, [place] [id number] [place] [address] 16220- 5590 February, Toe infection L08.9 and Type 2 diabetes mellitus with other specified complication E11.69 [place] [id number] [place] [address] 88619- 4859 February, [place] [id number] [place] [address] 39646- 7384 Jan, Type 2 diabetes mellitus with diabetic polyneuropathy E11.42 [place] [id number] [place] [address] 09971- 3751 Jan, [place] [id number] [place] [address] 31125- 8449 Jan, Right upper quadrant pain R10.11 and Intractable vomiting with nausea, unspecified vomiting type R11.2 [place] [address], [place] [address]- 7811 Jan, Hypertriglyceridemia E78.1 and Essential hypertension I10 [place] [id number] [place] [address] 60249- 1885 07 Jan, 2017 Essential hypertension I10 ; Type 2 diabetes mellitus with diabetic polyneuropathy E11.42 and Hypertriglyceridemia E78.1 [place] [id number] [place] [address] 34890- 1105 16 Dec, 2016 Type 2 diabetes mellitus with diabetic polyneuropathy E11.42 [facility] [id number] [place] [address] 07756- 9893 15 Dec, 2016 Hypertriglyceridemia E78.1 ; Essential hypertension I10 ; Type 2 diabetes mellitus with diabetic polyneuropathy E11.42 ; Anxiety disorder , unspecified F41.9 and Moderate persistent asthma without complication J45.40 [facility] [id number] [place] [address] 11344- 8419 15 Dec, 2016 Type 2 diabetes mellitus with diabetic polyneuropathy E11.42 [facility] [address] [id number] Dec, [facility] [id number] [place] [address] 03729- 2427 Nov, [facility] [id number] [place] [address] 59302- 5542 Nov, [facility] [id number] [place] [address] 56998- 6700 Nov, [facility] [id number] [place] [address] 25924- 5646 Nov, Toe infection L08.9 [facility] [id number] [place] [address] 81989- 6238 Nov, [facility] [id number] [place] [address] 11095- 7489 Oct, History of amputation of hallux Z89.419 [facility] [id number] [place] [address] 15892- 1290 Oct, Type 2 diabetes mellitus with diabetic polyneuropathy E11.42 [facility] [id number] [place] [address] 64980- 0713 17 Oct, 2016 Type 2 diabetes mellitus with diabetic polyneuropathy E11.42 [facility] [id number] [address]- 5949 13 Oct, 2016 Acute osteomyelitis of left foot M86.172 ; Pre-op exam Z01.818 and Type 2 diabetes mellitus with diabetic polyneuropathy E11.42 [facility] [id number] [place] [address] 50741- 5808 Oct, Foot ulcer, left, with unspecified severity L97.529 ; Acute osteomyelitis of left foot M86.172 and Type 2 diabetes mellitus with diabetic polyneuropathy E11.42 [facility] [id number] [place] [address] 55198- 0784 Sep, [facility] [id number] [place] [address] 65518- 2309 Sep, Intractable vomiting with nausea, unspecified vomiting type R11.2 and Right upper quadrant pain R10.11 [place] [id number] [place] [address] 73689- 6676 Aug, [facility] [id number] [place] [address] 13197- 1850 Jul, [facility] [id number] [place] [address] 49003- 6118 Jul, Preop examination Z01.818 [facility] [id number] [place] [address] 49642- 8866 Jul, [facility] [id number] [place] [address] 85292- 1287 Jul, [facility] [id number] [place] [address] 98388- 4950 Jul, Chronic osteomyelitis of left foot M86.672 and Ulcer of left foot, with unspecified severity L97.529 [facility] [id number] [place] [address] 96899- 5336 Jul, Non-pressure chronic ulcer of other part of left foot with unspecified severity L97.529 [facility] [id number] [place] [address] 35775- 0881 Jul, [facility] [id number] [place] [address] 95499- 4416 Jul, [facility] [id number] [place] [address] 62070- 4989 Jun, [facility] [id number] [place] [address] 60964- 7396 Jun, [facility] [id number] [place] [address] 08011- 0738 Jun, [facility] [id number] [place] [address] 33808- 4814 Jun, Right upper quadrant pain R10.11 [facility] [id number] [place] [address] 53308- 3010 Jun, [facility] [id number] [place] [address] 92263- 3805 19 Jun, 2016 Intractable vomiting with nausea, unspecified vomiting type R11.2 [facility] [id number] [place] [address] 20900- 0181 13 Jun, 2016 Right upper quadrant pain R10.11 ; Migraine with aura and with status migrainosus, not intractable G43.101 and Intractable vomiting with nausea, unspecified vomiting type R11.2 [facility] [id number] [place] [address] 56777- 1496 Jun, [facility] [id number] [place] [address] 07762- 0847 Jun, Gastroenteritis K52.9 [facility] [id number] [place] [address] 52209- 8580 May, [facility] [id number] [place] [address] 22193- 1204 May, Hypertriglyceridemia E78.1 ; Essential hypertension I10 ; Type 2 diabetes mellitus with diabetic polyneuropathy E11.42 ; Moderate persistent asthma without complication J45.40 ; Type 2 diabetes mellitus with foot ulcer E11.621 ; Other chronic pain G89.29 ; Pain in right leg M79.604 ; Pain of left leg M79.605 ; Rash and nonspecific skin eruption R21 and Anxiety disorder, unspecified F41.9 [facility] [id number] [place] [address] 07290- 3707 May, Essential hypertension I10 ; Hypertriglyceridemia E78.1 ; Upper respiratory infection J06.9 ; Subclinical hypothyroidism E03.9 and Type 2 diabetes mellitus with diabetic polyneuropathy E11.42 [place] [id number] [place] [address] 00368- 0032 Apr, Hypertriglyceridemia E78.1 ; Subclinical hypothyroidism E03.9 ; Essential hypertension I10 and Type 2 diabetes mellitus with diabetic polyneuropathy E11.42 [place] [id number] [place] [address] 19070- 1376 Mar, [place] [id number] [place] [address] 38357- 9610 Mar, Ulcer of right heel L97.419 [place] [id number] [place] [address] 93095- 1992 Mar, [place] [id number] [place] [address] 79034- 4247 Mar, [place] [id number] [place] [address] 29861- 4031 February, [place] [id number] [place] [address] 85307- 4392 February, Ulcer of right heel L97.419 and DM neuro manif type II E11.49 [facility] [address] 22125- 4040 Jan, [place] [id number] [place] [address] 77180- 1026 Jan, Ulcer of right heel L97.419 ; Type 2 diabetes mellitus with foot ulcer E11.621 and Non-pressure chronic ulcer of other part of left foot with unspecified severity L97.529 [facility] [address], [place] [address]- 1321 Jan, [facility] [id number] [place] [address] 44124- 7426 Jan, [facility] [address], [place] [address]- 8764 Jan, Infection of toenail L03.039 [facility] [id number] [address]- 9752 Jan, Blister of toe of left foot, initial encounter S90.425A and Type 2 diabetes mellitus with diabetic polyneuropathy E11.42 [facility] [address], [place] [address]- 6205 Jan, [facility] [address], [place] [address] -8845 Jan, Sore throat J02.9 and Strep pharyngitis J02.0 [facility] [address], [place] [address]- 8284 Dec, Type 2 diabetes mellitus with diabetic polyneuropathy E11.42 ; Upper respiratory infection J06.9 ; Cough R05 and Asthma exacerbation J45.901 [facility] [address], [place] [address]- 6926 Oct, [facility] [address] [address]- 0337 Oct, [facility] [address] [address]- 8180 Oct, [facility] [id number] [place] [address] 14649- 0265 Oct, [facility] [address] [address]- 6740 Sep, [facility] [id number] [place] [address] 16532- 0052 Aug, Anxiety disorder, unspecified F41.9 and Obesity E66.9 [place] [address] 41352- 3703 Aug, Moderate persistent asthma without complication J45.40 [place] [address] 16127- 1460 Aug, Anxiety disorder, unspecified F41.9 [place] [address] 49377- 8228 Aug, Chronic migraine G43.709 ; Encounter for immunization Z23 ; Hypertriglyceridemia E78.1 ; Type 2 diabetes mellitus with diabetic polyneuropathy E11.42 ; Moderate persistent asthma without complication J45.40 and Morbid obesity E66.[address] 66519- 5395 Jul, [address] 43832- 2125 Jul, [place] [address] 50576- 1614 Jul, [address] 59682- 0827 Jul, Subclinical hypothyroidism E03.9 [place] [id number] [place] [address] 99671- 1886 Jun, Essential hypertension, benign 401.1 ; Diabetic ulcer of lower extremity 250.80 ; Asthma 493.90 ; Diabetes mellitus type II, uncontrolled 250.02 and Hyperlipidemia associated with type 2 diabetes mellitus [address] 32094- 3719 Jun, [facility] [address] 94020- 5047 Jun, [place] [address] 79759- 1091 May, [facility] [address], [place] [address]- 0635 Apr, [facility] [id number] [place] [address] 31773- 9807 Apr, Viral upper respiratory infection 465.9 and Asthma 493.90 [facility] [id number] [place] [address] 34500- 2584 Mar, Abnormal ankle brachial index 796.4 [facility] [id number] [place] [address] 43975- 9540 February, [facility] [id number] [place] [address] 37246- 3495 February, Essential hypertension, benign 401.1 [facility] [id number] [place] [address] 07577- 9318 February, Diabetic peripheral neuropathy 250.60 ; Ulcer of heel and midfoot 707.14 and Decreased pedal pulses 785.9 [facility] [address], [place] [address]- 8005 February, [facility] [id number] [place] [address] 19654- 0999 February, [facility] [address], [place] [address]- 2773 Jan, [facility] [address], [place] [address]- 5902 Jan, [facility] [address], [place] [address]- 3715 Dec, [facility] [address], [place] [address]- 3033 Dec, [facility] [address], [place] [address]- 6711 Nov, [facility] [address], [place] [address]- 6849 Nov, [facility] [place] [facility] [address] [id number] [place] [address]- 1479 Nov, [facility] [place] [facility] [address] [id number] [place] [address]- 7326 Nov, [facility] [place] [facility] [address] [id number] [place] [address]- 8499 Nov, [facility] [place] [facility] [address] [id number] [place] [address]- 6559 Nov, 2014 [facility] [place] [facility] [address] [id number] [place] [address]- 7916 Nov, [facility] [place] [facility] [address] [id number] [place] [address]- 9308 Nov, [facility] [place] [facility] [address] [id number] [place] [address]- 0995 Nov, [facility] [place] [facility] [address] [id number] [place] [address]- 4003 Oct, [facility] [place] [facility] [address] [id number] [place] [address]- 1454 Oct, [facility] [place] [facility] [address] [id number] [place] [address]- 7664 Oct, [facility] [place] [facility] [address] [id number] [place] [address]- 6604 Oct, [facility] [place] [facility] [address] [id number] [place] [address]- 7352 Oct, [facility] [place] [facility] [address] [id number] [place] [address]- 7709 Oct, [facility] [place] [facility] [address] [id number] [place] [address]- 8876 Oct, [facility] [place] [facility] [address] [id number] [place] [address]- 8397 Oct, [facility] [place] [facility] [address] [id number] [place] [address]- 7697 13 Oct, 2014 [facility] [address] [id number] [place] [address]- 7333 Oct, [facility] [address] [id number] [place] [address]- 3133 Oct, [facility] [address] [id number] [place] [address]- 9089 Oct, [facility] [address] [id number] [place] [address]- 9926 Oct, [facility] [address] [id number] [place] [address]- 2310 Sep, [facility] [address] [id number] [place] [address]- [address] Sep, [facility] [address] [id number] [place] [address]- [address] Sep, [facility] [address] [id number] [place] [address]- [address] Sep, [facility] [address] [id number] [place] [address] [address] Sep, [facility] [address] [id number] [place] [address] [address] Sep, [facility] [address] [id number] [place] [address] [address] Sep, [facility] [address] [id number] [place] [address] Sep, [facility] [place] [facility] [address] [id number] [place] [address] [address] Sep, [facility] [place] [facility] [address] [id number] [place] [address] [address] Sep, [facility] [address] [id number] [place] [address] Sep, [facility] [place] [facility] [address] [id number] [place] [address] Sep, [facility] [place] [facility] [address] [id number] [place] [address] Sep, [facility] [place] [facility] [address] [id number] [place] [address] Sep, [facility] [place] [facility] [address] [id number] [place] [address] Sep, [facility] [place] [facility] [address] [id number] [place] Sep, [facility] [place] [facility] [address] [id number] [place] [address] Aug, [facility] [place] [facility] [address] [id number] [place] [address] Aug, [facility] [place] [facility] [address] [address] [id number] [place] [address] Aug, [facility] [place] [facility] [address] [id number] [place] [address] Aug, [facility] [place] [facility] [address] [id number] [place] [address] 1443 Aug, [facility] [place] [facility] [address] [id number] [place] [address] Aug, [facility] [place] [facility] [address] [id number] [address] Aug, [facility] [place] [facility] [address] [id number] [place] [address] 6078 Aug, [facility] [place] [facility] [address] [id number] [place] [address] 9948 Jul, [facility] [place] [facility] [address] [id number], [place] [address] Jul, [facility] [place] [facility] [address] [id number][place] [address] Jul, [facility] [place] [facility] [address] [id number] [place] [address]99 Jul, [facility] [place] [facility] [address] [id number] [place] [address] 27[address] Jul, [facility] [place] [facility] [address] [id number] [place] [address]366 Jun, [facility] [place] [facility] [address] [id number] [place] [address] 1314 Jun, [facility] [place] [facility] [address] [id number] [place] [address]- 7548 Jun, [facility] [place] [facility] [address] [id number] [place] [address]- 3141 Jun, [facility] [place] [facility] [address] [id number] [place] [address]- 9590 Jun, [facility] [place] [facility] [address] [id number] [place] [address] 3343 May, [facility] [place] [facility] [address] [id number] [place] [address] 0000 May, [facility] [place] [facility] [address] [id number] [place] [address] 3350 Apr, [facility] [place] [facility] [address] [id number] [place] [address] 0619 Apr, [facility] [place] [facility] [address] [id number] [place] [address]- 5171 Apr, [facility] [place] [facility] [address] [id number] [place] [address]- 5513 Apr, [facility] [place] [facility] [address] [id number] [place] [address] 3441 Apr, [facility] [place] [facility] [address] [id number] [place] [address] Apr, [facility] [place] [facility] [address] [id number] [place] [address] 8617 Mar, [facility] [place] [facility] [address] [id number] [place] [address]- 6856 Mar, [facility] [place] [facility] [address] [id number] [place] [address]- 8666 Mar, [facility] [place] [facility] [address] [id number] [place] [address]- 9325 Mar, [facility] [place] [facility] [address] [id number] [place] [address]- 3452 Mar, [facility] [place] [facility] [address] [id number] [place] [address] 3243 Mar, [facility] [place] [facility] [address] [id number] [place] [address] 43[address] Mar, [facility] [place] [facility] [address] [id number] [place] [address] 8377 Mar, [facility] [place] [facility] [address] [id number] [place] [address] 3840 Mar, [facility] [place] [facility] [address] [id number] [place] [address] 3462 Mar, [facility] [place] [facility] [address] [id number] [place] [address] 3020 Mar, [facility] [place] [facility] [address] [id number] [place] [address] 7520 Mar, [facility] [place] [facility] [address] [id number] [place] [address] 9401 Mar, [facility] [place] [facility] [address] [id number] [place] [address] 3415 Mar, [facility] [place] [facility] [address] [id number] [place] [address]- 9268 07 Mar, 2014 [facility] [place] [facility] [address] [id number] [place] [address] 6922 Mar, [facility] [place] [facility] [address] [id number] [place] [address] 4290 February, [facility] [place] [facility] [address] [id number] [place] [address]- 2671 February, [facility] [place] [facility] [address] [id number] [place] [address]- 6422 February, [facility] [place] [facility] [address] [id number] [place] [address] 9072 February, [facility] [place] [facility] [address] [id number] [place] [address] 0867 February, [facility] [place] [facility] [address] [id number] [place] [address]- 3794 February, [facility] [place] [facility] [address] [id number] [place] [address] 3587 February, [facility] [place] [facility] [address] [id number] [place] [address] 6049 February, [facility] [place] [facility] [address] [id number] [place] [address]- 3028 Jan, [facility] [place] [facility] [address] [id number] [place] [address] 3026 Jan, [facility] [place] [facility] [address] [id number] [place] [address]- 7120 Dec, [facility] [place] [facility] [address] [id number] [place] [address]- 8153 Dec, [facility] [place] [facility] [address] [id number] [place] [address]- 2244 Dec, [facility] [place] [facility] [address] [id number] [place] [address] 1928 Dec, [facility] [place] [facility] [address] [id number] [place] [address]- 3031 Dec, [facility] [place] [facility] [address] [id number] [place] [address]- 5111 24 Dec, 2013 [facility] [place] [facility] [address] [id number] [place] [address]- 3217 19 Dec, 2013 [facility] [place] [facility] [address] [id number] [place] [address]- 9111 19 Dec, 2013 [facility] [place] [facility] [address] [id number] [place] [address]- 1536 17 Dec, 2013 [facility] [place] [facility] [address] [id number] [place] [address]- 9294 17 Dec, 2013 [facility] [place] [facility] [address] [id number] [place] [address]- 6413 14 Dec, 2013 [facility] [place] [facility] [address] [id number] [place] [address]- 1542 14 Dec, 2013 [facility] [place] [facility] [address] [id number] [place] [address]- 4008 Dec, [facility] [place] [facility] [address] [id number] [place] [address]- 3135 Dec, [facility] [place] [facility] [address] [id number] [place] [address]- 7777 Nov, [facility] [place] [facility] [address] [id number] [place] [address]- 8742 Nov, [facility] [place] [facility] [address] [id number] [place] [address]- 5823 Oct, [facility] [place] [facility] [address] [id number] [place] [address]- 6181 Oct, [facility] [place] [facility] [address] [id number] [place] [address]- 2307 Oct, [facility] [place] [facility] [address] [id number] [place] [address]- 5333 Oct, [facility] [place] [facility] [address] [id number] [place] [address]- 1854 Oct, [facility] [place] [facility] [address] [id number] [place] [address]- 9310 Oct, [facility] [address] [id number] [place] [address]- 2224 Oct, [facility] [address] [id number] [place] [address]- 6275 31 Sep, 2013 [facility] [address] [id number] [place] [address]- 6886 Sep, [facility] [address] [id number] [place] [address]- 1958 Sep, [facility] [address] [id number] [place] [address]- [address] Sep, [facility] [address] [id number] [place] [address]- 4373 Sep, [facility] [address] [id number] [place] [address]- [address] Sep, [facility] [address] [id number] [place] [address]- 8169 Sep, [facility] [address] [id number] [place] [address]- [address] Sep, [facility] [address] [id number] [place] [address]- 1556 Sep, [facility] [address] [id number] [place] [address]- 4174 Sep, [facility] [address] [id number] [place] [address]- 4594 Sep, [facility] [place] [facility] [address] [id number] [place] [address]- 0217 Sep, [facility] [address] [id number] [place] [address]- 8251 16 Sep, 2013 [facility] [address] [id number] [place] [address]- 8872 16 Sep, 2013 [facility] [place] [facility] [address] [id number] [place] [address]- 2747 Sep, [facility] [place] [facility] [address] [id number] [place] [address]- 2591 Sep, [facility] [place] [facility] [address] [id number] [place] [address]- 4545 Sep, [facility] [place] [facility] [address] [id number] [place] [address]- 9236 Sep, [facility] [place] [facility] [address] [id number] [place] [address]- 7169 Sep, [facility] [place] [facility] [address] [id number] [place] [address]- 8845 Aug, [facility] [place] [facility] [address] [id number] [place] [address]- 2855 Aug, [facility] [place] [facility] [address] [id number] [place] [address]- 1273 Aug, [facility] [place] [facility] [address] [id number] [place] [address]- 5975 Aug, [facility] [place] [facility] [address] [id number] [place] [address]- 0180 Aug, [facility] [place] [facility] [address] [id number], [place] [address]- 0050 Aug, [facility] [place] [facility] [address] [id number] [place] [address]- 8957 Aug, [facility] [place] [facility] [address] [id number] [place] [address]- 2133 Aug, [facility] [place] [facility] [address] [id number] [place] [address]- 3000 Aug, [facility] [place] [facility] [address] [id number] [place] [address]- 2508 Aug, [facility] [place] [facility] [address] [id number] [place] [address]- 5123 Aug, [facility] [place] [facility] [address] [id number] [place] [address]- 7756 Aug, [facility] [place] [facility] [address] [id number] [place] [address]- 3242 Aug, [facility] [place] [facility] [address] [id number] [place] [address]- 1148 Aug, [facility] [place] [facility] [address] [id number] [place] [address]- 5439 Aug, [facility] [place] [facility] [address] [id number] [place] [address]- 6817 Aug, [facility] [place] [facility] [address] [id number] [place] [address]- 0620 Aug, [facility] [place] [facility] [address] [id number] [place] [address]- 7650 Jul, [facility] [place] [facility] [address] [id number] [place] [address]- 5925 Jul, [facility] [place] [facility] [address] [id number] [place] [address]- 6838 Jul, [facility] [place] [facility] [address] [facility] [id number] [place] [address]- 4570 Jul, [facility] [place] [facility] [address] [id number] [place] [address]- 9351 Jul, [facility] [place] [facility] [address] [id number] [place] [address]- 2150 Jul, [facility] [place] [facility] [address] [id number] [place] [address]- 2239 Jul, [facility] [place] [facility] [address] [id number] [place] [address]- 2110 Jun, [facility] [place] [facility] [address] [id number] [place] [address] 20 Jun, 2013 [facility] [address] [facility] [id number][place] [address]- 3949 17 Jun, 2013 [facility] [address] [facility] [id number], [place] [address]- 8126 10 Jun, 2013 [facility] [address] [facility] [id number], [place] [address]- 1663 06 Jun, 2013 [facility] [address] [facility] [id number], [place] [address]- 6254 06 Jun, 2013 [facility] [address] [facility] [id number], [place] [address]- 2595 05 Jun, 2013 [facility] [address] [facility] [id number][place] [address]- 2811 Jun, [facility] [address] [facility] [id number], [place] [address]- 1464 May, [facility] [address] [facility] [id number], [place] [address]- 9115 May, [facility] [address] [facility] [id number], [place] [address]- 1244 May, [facility] [address] [facility] [id number], [place] [address]- 9475 May, [facility] [address] [facility] [id number], [place] [address]- 9835 May, [facility] [address] [facility] [id number], [place] [address]- 9129 May, [facility] [address] [facility] [id number], [place] [address]- 2737 May, [facility] [address] [facility] [id number], [place] [address]- 7519 May, IMMUNIZATIONS No Known Immunizations SOCIAL HISTORY Never Assessed REASON FOR VISIT Refill Request PLAN OF CARE VITAL SIGNS MEDICATIONS Medication Instructions Dosage Frequency Start Date End Date Duration Status Hydrochlorothiazide 25 MG TAKE ONE TABLET BY MOUTH ONCE DAILY 90 Active Lisinopril 40 mg Orally Once a day 1 tablet 24h Jul, 90 days Active RESULTS No Results PROCEDURES [...] 2003 [facility] History amputation, toe (R great) Surgical History amputation, (R forefoot) 2014 Surgical History amputation, toe Left second 12/2016 Surgical History amputation, 4th left toe 02/2017 Hospitalization History Left foot cellulitis, left 2nd toe amputation-[facility] 12/23 Hospitalization History Surgery Hospitalizations
--- OUTSIDE RECORDS SUMMARY | 2018-08-22 09:25 | XMS REPORT ---
Author Author DOMITILA UMANA Organization [facility] Address [address] [place] [address] Care Team Providers Care Insurance Defense Paralegal Name Role Phone DOMITILA UMANA Unavailable PROBLEMS Type Condition ICD9-CM Code [id number] Code Onset Dates Condition Status SNOMED Code Problem Subclinical hypothyroidism E03.9 Active 90042517 Problem Hypertriglyceridemia E78.1 Active 352962250 Problem Type 2 diabetes mellitus with diabetic polyneuropathy E11.42 Active 552982283 Problem Type 2 diabetes mellitus with diabetic chronic 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 Active 328094507 Problem Other chronic pain G89.29 Active 72760615 Problem Type 2 diabetes mellitus with other skin complications E11.628 Active 82016161 Problem Pain in left foot M79.672 Active 70335057 Problem Irregular menstrual cycle N92.6 Active 27154813 Problem Pain in right foot M79.671 Active 47471912 Problem Tonsillolith J35.8 Active 6307149 Problem Chronic prescription opiate use Z79.891 Active 786622736 Problem Seasonal allergic rhinitis due to pollen J30.1 Active 56185476 Problem Asthma exacerbation, mild J45.901 Active 685360340 Problem Chronic kidney disease, stage III (moderate) N18.3 Active 983699725 Problem Chronic migraine G43.709 Active 35956942 Problem Moderate persistent asthma without complication J45.40 Active 207161973 Problem Intrinsic eczema L20.84 Active 25088188 Problem Severe episode of recurrent major depressive disorder, without psychotic features F33.2 Active 13686593 Problem Non-pressure chronic ulcer of right heel and midfoot limited to breakdown of skin L97.411 Active 173455540 Problem Ulcer of right heel L97.419 Active 667177052 Problem Obesity E66.9 Active 327932135 Problem Type 2 diabetes mellitus with foot ulcer E11.621 Active 89489815 Problem Essential hypertension I10 Active 43652367 Problem Anxiety disorder, unspecified F41.9 Active 758658698 Problem Type 2 diabetes mellitus with other specified complication E11.69 Active 780620383 Problem Status post amputation of toe of left foot Z89.422 Active 127056171 Problem DM neuro manif type II E11.49 Active 99672764 Problem History of amputation of hallux Z89.419 Active 839561732 ALLERGIES No Information ENCOUNTERS Encounter Location Date Diagnosis [facility] [id number] [place] [address] 38371- 2073 Mar, [facility] [address] 0[address]- 8686 Mar, Moderate persistent asthma without complication J45.40 [facility] [address] 24337- 5307 Mar, [facility] [address] 11032- 3741 February, Chronic migraine G43.709 [facility] [address] 36522- 5525 February, Chronic migraine G43.709 [facility] [address] 92706- 7215 February, [facility] [address] 77853- 4545 February, [facility] [id number] [place] [address] 58581- 0291 February, Type 2 diabetes mellitus with diabetic polyneuropathy E11.42 ; Moderate persistent asthma without complication J45.40 ; Type 2 diabetes mellitus with foot ulcer E11.621 ; Non-pressure chronic ulcer of right heel and midfoot limited to breakdown of skin L97.411 ; Chronic migraine G43.709 and BMI 60.0-69.9, adult Z68.44 [facility] [id number] [place] [address] 35618 -9710 Jan, 2018 Asthma exacerbation, mild J45.901 ; Seasonal allergic rhinitis due to pollen J30.1 and BMI 60.0-69.9, adult Z68.44 [facility] [address] [address] 6761 Jan, [place] [id number] [place] [address] 66591- 3211 Jan, Other chronic pain G89.29 [place] [facility] [id number] [place] [address] 91300- 1729 30 Dec, 2017 Type 2 diabetes mellitus with diabetic polyneuropathy E11.42 [facility] [id number] [place] [address] 99797- 0059 Dec, Type 2 diabetes mellitus with diabetic polyneuropathy E11.42 [facility] [facility] [id number] [place] [address] 74722- 6245 15 Dec, 2017 [place] [id number] [place] [address] 14269- 5788 14 Dec, 2017 [place] [id number] [place] [address] 39601- 6460 13 Dec, 2017 Chronic kidney disease, stage III (moderate) N18.3 [facility] [id number] [place] [address] 33566 -8580 09 Dec, 2017 Nausea R11.0 and Diarrhea, unspecified type R19.7 [place] [id number] [place] [address] 62713- 3250 07 Dec, 2017 Chronic kidney disease, stage III (moderate) N18.3 and Type 2 diabetes mellitus with diabetic polyneuropathy E11.42 [facility] [id number] [place] [address] 45469- 5293 Dec, [place] [id number] [place] [address] 62139- 4179 Nov, Ulcer of right heel L97.419 and Type 2 diabetes mellitus with diabetic polyneuropathy E11.42 [facility] [id number] [place] [address] [id number] Nov, Dental examination Z01.20 [place] [id number] [place] [address] 35382- 9590 Nov, Open wound of right foot, initial encounter S91.301A [facility] [id number] [place] [address] 68006 -5846 Nov, Open wound of right foot, initial encounter S91.301A ; Non- intractable vomiting with nausea, unspecified vomiting type R11.2 and BMI 60.0- 69.9, adult Z68.44 [place] [id number] [place] [address] 70839- 9090 Nov, [place] [facility] [address] 29819- 2834 Nov, Other chronic pain G89.29 [place] [facility] [address] 24648- 7798 Oct, Cellulitis of right lower limb L03.115 [place] [facility] [address] 17550- 6078 Oct, [place] [facility] [address] 32002- 0591 Oct, [place] [facility] [address] 88188- 4318 Oct, Cat scratch W55.03XA ; Cellulitis of right lower limb L03.115 ; Acute nasopharyngitis J00 ; BMI 60.0-69.9, adult Z68.44 and Cough R05 [place] [id number] [place] [address] 27916- 3484 Oct, Cat scratch W55.03XA ; Cutaneous abscess of right lower extremity L02.415 and Cellulitis of right lower limb L03.115 [place] [id number] [place] [address] 93953- 2527 Oct, Type 2 diabetes mellitus with diabetic polyneuropathy E11.42 [place] [facility] [address] 22764- 1186 Oct, Other chronic pain G89.29 [facility] [id number] [place] [address] 43075- 7982 Aug, [facility] [id number] [place] [address] 30700- 2472 Jul, Other chronic pain G89.29 [place] [facility] [address] 75983- 2436 Jul, [place] [facility] [address] 16333- 5634 Jul, Chronic kidney disease, stage III (moderate) N18.[address] 12122- 5539 04 Jul, 2017 Type 2 diabetes mellitus with diabetic polyneuropathy E11.42 ; Essential hypertension I10 ; Irregular menstrual cycle N92.6 ; Hypertriglyceridemia E78.1 ; Anxiety disorder, unspecified F41.9 ; Severe episode of recurrent major depressive disorder, without psychotic features F33.2 ; Tonsillolith J35.8 ; Intrinsic eczema L20.84 ; Subclinical hypothyroidism E03.9 ; Viral pharyngitis J02.9 and Encounter for immunization Z23 [place] [id number] [place] [address] 23888- 0667 13 Jun, 2017 Essential hypertension I10 [place] [id number] [place] [address] 57823- 7748 08 Jun, 2017 [place] [id number] [place] [address] 16607- 8603 Jun, [place] [facility] [id number] [place] [address] 63005- 6652 May, Moderate persistent asthma without complication J45.40 [place] [id number] [place] [address] 93710- 6406 May, Pain in right foot M79.671 ; Pain in left foot M79.672 ; Other chronic pain G89.29 and Chronic prescription opiate use Z79.891 [facility] [address] [place] [address] 91296- 0597 May, [facility] [id number] [place] [address] 96524- 4212 May, [facility] [id number] [place] [address] 30323- 2818 Apr, [facility] [id number] [place] [address] 83074- 7566 Apr, Chronic migraine G43.709 [facility] [id number] [place] [address] 35836- 7002 Apr, Essential hypertension I10 ; Hypertriglyceridemia E78.1 and Chronic migraine G43.709 [facility] [id number] [place] [address] 08791- 6233 Apr, [facility] [id number] [place] [address] 96742- 9936 Apr, Sore throat J02.9 [facility] [id number] [place] [address] 74932- 3090 Apr, [facility] [id number] [place] [address] 94625- 9514 Mar, Strep pharyngitis J02.0 and Non-intractable vomiting with nausea, unspecified vomiting type R11.2 [facility] [id number] [place] [address] 06472- 8822 Mar, [facility] [id number] [place] [address] 07613- 8121 Mar, [facility] [id number] [place] [address] 02036- 8088 Mar, [facility] [address] [place] [address] 64113- 5545 Mar, Type 2 diabetes mellitus with diabetic polyneuropathy E11.42 ; Moderate persistent asthma without complication J45.40 ; Status post amputation of toe of left foot Z89.422 ; Acute seasonal allergic rhinitis, unspecified trigger J30.2 and Left shoulder pain, unspecified chronicity M25.512 [place] [id number] [place] [address] 39975- 6416 Mar, [place] [id number] [place] [address] 52997- 1547 February, Pre-op evaluation Z01.818 ; Type 2 diabetes mellitus with diabetic polyneuropathy E11.42 and Type 2 diabetes mellitus with foot ulcer E11.621 [place] [id number] [place] [address] 11513- 2352 February, [place] [id number] [place] [address] 56767- 6037 February, [place] [id number] [place] [address] 04044- 0476 February, Toe infection L08.9 and Type 2 diabetes mellitus with other specified complication E11.69 [place] [id number] [place] [address] 12904- 0256 February, [place] [id number] [place] [address] 24279- 1948 Jan, Type 2 diabetes mellitus with diabetic polyneuropathy E11.42 [place] [id number] [place] [address] 50747- 8382 Jan, [place] [id number] [place] [address] 40616- 4614 Jan, Right upper quadrant pain R10.11 and Intractable vomiting with nausea, unspecified vomiting type R11.2 [place] [id number] [place] [address] 65090- 4829 Jan, Hypertriglyceridemia E78.1 and Essential hypertension I10 [place] [id number] [place] [address] 56740- 5692 Jan, Essential hypertension I10 ; Type 2 diabetes mellitus with diabetic polyneuropathy E11.42 and Hypertriglyceridemia E78.1 [facility] [id number] [place] [address] 26183- 5608 16 Dec, 2016 Type 2 diabetes mellitus with diabetic polyneuropathy E11.42 [facility] [id number] [place] [address] 71664- 5910 15 Dec, 2016 Hypertriglyceridemia E78.1 ; Essential hypertension I10 ; Type 2 diabetes mellitus with diabetic polyneuropathy E11.42 ; Anxiety disorder , unspecified F41.9 and Moderate persistent asthma without complication J45.40 [facility] [id number] [place] [address] 38758- 2265 15 Dec, 2016 Type 2 diabetes mellitus with diabetic polyneuropathy E11.42 [facility] [address] [id number] Dec, [facility] [id number] [place] [address] 19226- 8948 Nov, [facility] [id number] [place] [address] 70939- 2510 Nov, [facility] [address] 54251- 2913 Nov, [facility] [id number] [place] [address] 72655- 6574 Nov, Toe infection L08.9 [facility] [id number] [place] [address] 76756- 1578 Nov, [facility] [id number] [place] [address] 50269- 2204 Oct, History of amputation of hallux Z89.419 [facility] [id number] [place] [address] 24891- 8531 Oct, Type 2 diabetes mellitus with diabetic polyneuropathy E11.42 [facility] [id number] [place] [address] 11639- 6694 Oct, Type 2 diabetes mellitus with diabetic polyneuropathy E11.42 [facility] [address], [place] [address]- 0884 Oct, Acute osteomyelitis of left foot M86.172 ; Pre-op exam Z01.818 and Type 2 diabetes mellitus with diabetic polyneuropathy E11.42 [facility] [address], [place] [address]- 6072 Oct, Foot ulcer, left, with unspecified severity L97.529 ; Acute osteomyelitis of left foot M86.172 and Type 2 diabetes mellitus with diabetic polyneuropathy E11.42 [facility] [address], [place] [address]- 3937 Sep, [facility] [id number] [place] [address] 58416- 2950 Sep, Intractable vomiting with nausea, unspecified vomiting type R11.2 and Right upper quadrant pain R10.11 [facility] [id number] [place] [address] 52391- 6901 Aug, [facility] [id number] [place] [address] 14556- 5265 Jul, [facility] [id number] [place] [address] 95527- 2977 Jul, Preop examination Z01.818 [facility] [address], [place] [address]- 7553 Jul, [facility] [address] [place] [address] 09215- 1170 Jul, [facility] [address], [place] [address]- 0015 Jul, Chronic osteomyelitis of left foot M86.672 and Ulcer of left foot, with unspecified severity L97.529 [facility] [address], [place] [address]- 9363 Jul, Non-pressure chronic ulcer of other part of left foot with unspecified severity L97.529 [facility] [address], [place] [address]- 4192 Jul, [facility] [id number] [place] [address] 64487- 3533 Jul, [facility] [id number] [place] [address] 76391- 4050 Jun, [facility] [id number] [place] [address] 92103- 7092 Jun, [facility] [id number] [place] [address] 65508- 1754 Jun, [facility] [id number] [place] [address] 51690- 0442 21 Jun, 2016 Right upper quadrant pain R10.11 [facility] [id number] [place] [address] 34530- 7261 20 Jun, 2016 [facility] [id number] [place] [address] 28796- 2730 19 Jun, 2016 Intractable vomiting with nausea, unspecified vomiting type R11.2 [facility] [id number] [place] [address] 01294- 1453 13 Jun, 2016 Right upper quadrant pain R10.11 ; Migraine with aura and with status migrainosus, not intractable G43.101 and Intractable vomiting with nausea, unspecified vomiting type R11.2 [facility] [address] [place] [address] 74053- 6522 Jun, [facility] [id number] [place] [address] 51540- 2131 Jun, Gastroenteritis K52.9 [facility] [id number] [place] [address] 92497- 3803 May, [facility] [address] [place] [address] 67765- 8351 May, Hypertriglyceridemia E78.1 ; Essential hypertension I10 ; Type 2 diabetes mellitus with diabetic polyneuropathy E11.42 ; Moderate persistent asthma without complication J45.40 ; Type 2 diabetes mellitus with foot ulcer E11.621 ; Other chronic pain G89.29 ; Pain in right leg M79.604 ; Pain of left leg M79.605 ; Rash and nonspecific skin eruption R21 and Anxiety disorder, unspecified F41.9 [facility] [id number] [place] [address] 92324- 8314 May, 2016 Essential hypertension I10 ; Hypertriglyceridemia E78.1 ; Upper respiratory infection J06.9 ; Subclinical hypothyroidism E03.9 and Type 2 diabetes mellitus with diabetic polyneuropathy E11.42 [place] [id number] [place] [address] 07510- 0911 Apr, 2016 Hypertriglyceridemia E78.1 ; Subclinical hypothyroidism E03.9 ; Essential hypertension I10 and Type 2 diabetes mellitus with diabetic polyneuropathy E11.42 [place] [id number] [place] [address] 29491- 8200 Mar, [place] [id number] [place] [address] 34448- 2876 Mar, Ulcer of right heel L97.419 [place] [id number] [place] [address] 48210- 6465 Mar, [place] [id number] [place] [address] 63498- 4368 Mar, [place] [id number] [place] [address] 27777- 9045 February, [place] [id number] [place] [address] 51701- 6179 February, Ulcer of right heel L97.419 and DM neuro manif type II E11.49 [facility] [id number] [place] [address] 62105- 7514 Jan, [place] [id number] [place] [address] 49866- 7769 Jan, Ulcer of right heel L97.419 ; Type 2 diabetes mellitus with foot ulcer E11.621 and Non-pressure chronic ulcer of other part of left foot with unspecified severity L97.529 [facility] [id number] [place] [address] 84376- 6048 Jan, [facility] [id number] [place] [address] 30229- 3526 Jan, [facility] [address] 35511- 8423 Jan, Infection of toenail L03.039 [place] [id number] [place] [address] 64654- 3020 Jan, Blister of toe of left foot, initial encounter S90.425A and Type 2 diabetes mellitus with diabetic polyneuropathy E11.42 [facility] [id number] [place] [address] 30137- 9475 Jan, [facility] [id number] [place] [address] 38621 -4953 Jan, Sore throat J02.9 and Strep pharyngitis J02.0 [place] [id number] [place] [address] 23852- 6018 Dec, Type 2 diabetes mellitus with diabetic polyneuropathy E11.42 ; Upper respiratory infection J06.9 ; Cough R05 and Asthma exacerbation J45.901 [place] [id number] [place] [address] 75729- 4479 Oct, [facility] [id number] [place] [address] 59109- 6698 Oct, [facility] [id number] [place] [address] 63987- 7147 Oct, [facility] [id number] [place] [address] 65210- 0609 Oct, [place] [id number] [place] [address] 49622- 9173 Sep, [place] [id number] [place] [address] 62580- 2596 Aug, Anxiety disorder, unspecified F41.9 and Obesity E66.9 [place] [id number] [place] [address] 15547- 4217 Aug, Moderate persistent asthma without complication J45.[address] 61879- 2415 Aug, Anxiety disorder, unspecified F41.9 [place] [address] 41021- 0905 Aug, Chronic migraine G43.709 ; Encounter for immunization Z23 ; Hypertriglyceridemia E78.1 ; Type 2 diabetes mellitus with diabetic polyneuropathy E11.42 ; Moderate persistent asthma without complication J45.40 and Morbid obesity E66.[address] 61453- 4126 Jul, [place] [address] 71966- 1771 Jul, [address] 98327- 8318 Jul, [place] [id number] [place] [address] 54831- 5894 Jul, Subclinical hypothyroidism E03.[address] 09084- 7357 Jun, Essential hypertension, benign 401.1 ; Diabetic ulcer of lower extremity 250.80 ; Asthma 493.90 ; Diabetes mellitus type II, uncontrolled 250.02 and Hyperlipidemia associated with type 2 diabetes mellitus 250.80 [place] [address] 91369- 8193 Jun, [place] [address] 73977- 2430 Jun, [place] [address] [place] [address]- 7024 May, [facility] [id number] [place] [address] 56646- 5448 Apr, [facility] [id number] [place] [address] 75389- 0934 Apr, Viral upper respiratory infection 465.9 and Asthma 493.90 [facility] [id number] [place] [address] 06041- 1478 Mar, Abnormal ankle brachial index 796.4 [facility] [id number] [place] [address] 45091- 5425 February, [facility] [id number] [place] [address] 35411- 1186 February, Essential hypertension, benign 401.1 [facility] [id number] [place] [address] 08739- 8897 February, Diabetic peripheral neuropathy 250.60 ; Ulcer of heel and midfoot 707.14 and Decreased pedal pulses 785.9 [facility] [id number] [place] [address] 03313- 5729 February, [facility] [id number] [place] [address] 36408- 1754 February, [facility] [id number] [place] [address] 56070- 3317 Jan, [facility] [id number] [place] [address] 06884- 6676 Jan, [facility] [id number] [place] [address] 85967- 2485 Dec, [facility] [id number] [place] [address] 66910- 5616 Dec, [facility] [id number] [place] [address] 70438- 2655 Nov, [facility] [id number] [place] [address]- 1224 Nov, 2014 [facility] [place] [facility] [address] [id number] [place] [address]- 4816 Nov, 2014 [facility] [place] [facility] [address] [id number] [place] [address] 2546 Nov, 2014 [facility] [place] [facility] [address] [id number] [place] [address] 2546 Nov, 2014 [facility] [place] [facility] [address] [id number] [place] [address] 2546 Nov, 2014 [facility] [place] [facility] [address] [id number] [place] [address]- 8726 Nov, 2014 [facility] [place] [facility] [address] [facility] [id number] [place] [address] 2546 Nov, 2014 [facility] [place] [facility] [address] [facility] [id number] [place] [address] 2549 Nov, [facility] [place] [facility] [address] [id number] [place] [address]- 8570 Oct, [facility] [place] [facility] [address] [facility] [id number] [place] [address]- 2542 Oct, [facility] [place] [facility] [address] [facility] [id number] [place] [address]- 2542 Oct, [facility] [place] [facility] [address] [facility] [id number] [place] [address] 254 Oct, [facility] [place] [facility] [address] [id number] [place] [address] 2542 Oct, [facility] [place] [facility] [address] [id number] [place] [address] 2546 Oct, [facility] [place] [facility] [address] [facility] [id number] [place] [address] 2546 Oct, [facility] [place] [facility] [address] [facility] [id number] [place] [address] 8080 Oct, [facility] [place] [facility] [address] [id number] [place] [address] 2620 Oct, [facility] [place] [facility] [address] [id number] [place] [address]- 4297 Oct, [facility] [place] [facility] [address] [id number] [place] [address] 7508 Oct, [facility] [place] [facility] [address] [id number] [place] [address] 6399 Oct, [facility] [place] [facility] [address] [id number] [place] [address]- 1281 Oct, [facility] [place] [facility] [address] [id number] [place] [address]- 7323 Sep, [facility] [place] [facility] [address] [id number] [place] [address]- 5180 Sep, [facility] [place] [facility] [address] [id number] [place] [address]- 7466 Sep, [facility] [place] [facility] [address] [id number] [place] [address]- 9981 Sep, [facility] [place] [facility] [address] [id number] [place] [address]- 6276 Sep, [facility] [place] [facility] [address] [id number] [place] [address]- 4404 Sep, [facility] [place] [facility] [address] [id number] [place] [address]- 0526 Sep, [facility] [place] [facility] [address] [id number] [place] [address]- 4697 Sep, [facility] [place] [facility] [address] [id number] [place] [address]- 8356 Sep, [facility] [place] [facility] [address] [id number] [place] [address]- 6103 Sep, [facility] [place] [facility] [address] [id number] [place] [address] Sep, [facility] [place] [facility] [address] [id number] [place] [address]- 4446 Sep, [facility] [place] [facility] [address] [id number] [place] [address] Sep, [facility] [place] [facility] [address] [id number] [place] [address]- 2930 Sep, [facility] [place] [facility] [address] [id number] [place] [address]- 2815 Sep, [facility] [place] [facility] [address] [id number] [place] [address]- 8177 Sep, [facility] [place] [facility] [address] [id number] [place] [address]- 8192 Aug, [facility] [place] [facility] [address] [id number] [place] [address]- 9403 Aug, [facility] [place] [facility] [address] [id number] [place] [address]- 5176 Aug, [facility] [place] [facility] [address] [id number] [place] [address]- 6886 Aug, [facility] [place] [facility] [address] [facility] [id number] [place] [address]- 2786 Aug, [facility] [place] [facility] [address] [id number] [place] [address]- 3777 Aug, [facility] [place] [facility] [address] [id number], [place] [address]- 4271 Aug, [facility] [place] [facility] [address] [id number] [place] [address]- 2874 Aug, [facility] [place] [facility] [address] [id number] [place] [address]- 3251 Jul, [facility] [place] [facility] [address] [id number] [place] [address] Jul, [facility] [place] [facility] [address] [id number] [place] [address]- 1770 Jul, [facility] [place] [facility] [address] [id number] [place] [address]- 0799 Jul, [facility] [place] [facility] [address] [id number] [place] [address]- 8935 Jul, [facility] [place] [facility] [address] [id number] [place] [address]- 8018 Jun, [facility] [place] [facility] [address] [id number] [place] [address]- 2748 Jun, [facility] [place] [facility] [address] [id number] [place] [address]- 6033 Jun, [facility] [place] [facility] [address] [id number] [place] [address]- 2070 Jun, [facility] [place] [facility] [address] [id number] [place] [address]- 7743 Jun, [facility] [place] [facility] [address] [id number] [place] [address]- 2996 May, [facility] [place] [facility] [address] [id number] [place] [address]- 0822 May, [facility] [place] [facility] [address] [id number] [place] [address]- 2564 Apr, [facility] [place] [facility] [address] [id number] [place] [address]- 7005 Apr, [facility] [place] [facility] [address] [id number] [place] [address]- 9087 Apr, [facility] [place] [facility] [address] [id number] [place] [address]- 4302 Apr, [facility] [place] [facility] [address] [id number] [place] [address]- 3606 Apr, [facility] [place] [facility] [address] [id number] [place] [address]- 2110 Apr, [facility] [place] [facility] [address] [id number] [place] [address]- 9405 Mar, [facility] [place] [facility] [address] [id number] [place] [address]- 2799 Mar, [facility] [place] [facility] [address] [id number] [place] [address]- 7499 Mar, [facility] [place] [facility] [address] [id number] [place] [address]- 9931 Mar, [facility] [place] [facility] [address] [id number] [place] [address]- 4593 Mar, [facility] [place] [facility] [address] [id number] [place] [address]- 4752 Mar, [facility] [place] [facility] [address] [id number] [place] [address]- 3502 Mar, [facility] [place] [facility] [address] [id number] [place] [address]- 8770 Mar, [facility] [place] [facility] [address] [id number] [place] [address]- 1114 Mar, [facility] [place] [facility] [address] [id number] [place] [address]- 7316 Mar, [facility] [place] [facility] [address] [id number], [place] [address]- 4104 Mar, [facility] [place] [facility] [address] [id number], [place] [address]- 6210 Mar, [facility] [place] [facility] [address] [id number] [place] [address]- 7915 Mar, [facility] [place] [facility] [address] [id number] [place] [address]- 4418 Mar, [facility] [place] [facility] [address] [id number] [place] [address]- 0236 Mar, [facility] [place] [facility] [address] [id number] [place] [address]- 2810 Mar, [facility] [address] [id number] [place] [address]- 1688 February, [facility] [address] [id number] [place] [address]- 7903 February, [facility] [address] [id number] [place] [address]- 7394 February, [facility] [address] [id number] [place] [address]- 3093 February, [facility] [address] [id number] [place] [address]- 3897 February, [facility] [address] [id number] [place] [address]- 4949 February, [facility] [address] [id number] [place] [address]- 7630 February, [facility] [address] [id number] [place] [address]- 4090 February, [facility] [address] [id number] [place] [address]- 6948 Jan, [facility] [address] [id number] [place] [address]- 9419 Jan, [facility] [place] [facility] [address] [id number] [place] [address]- 3256 Dec, [facility] [place] [facility] [address] [id number] [place] [address]- 0173 Dec, [facility] [place] [facility] [address] [id number] [place] [address]- 3969 Dec, [facility] [place] [facility] [address] [id number] [place] [address]- 7491 Dec, [facility] [place] [facility] [address] [id number] [place] [address]- 8001 Dec, [facility] [place] [facility] [address] [id number] [place] [address]- 8510 24 Dec, 2013 [facility] [place] [facility] [address] [id number] [place] [address]- 7250 19 Dec, 2013 [facility] [place] [facility] [address] [id number] [place] [address]- 9886 19 Dec, 2013 [facility] [place] [facility] [address] [id number] [place] [address]- 6526 17 Dec, 2013 [facility] [place] [facility] [address] [id number] [place] [address]- 7159 17 Dec, 2013 [facility] [place] [facility] [address] [id number] [place] [address]- 7691 14 Dec, 2013 [facility] [place] [facility] [address] [id number] [place] [address]- 5421 Dec, [facility] [place] [facility] [address] [id number] [place] [address]- 3480 Dec, [facility] [place] [facility] [address] [id number] [place] [address]- 9000 Dec, [facility] [place] [facility] [address] [id number] [place] [address]- 0502 Nov, [facility] [place] [facility] [address] [id number] [place] [address]- 2748 Nov, [facility] [place] [facility] [address] [id number] [place] [address]- 5977 Oct, [facility] [place] [facility] [address] [id number] [place] [address]- 3241 Oct, [facility] [place] [facility] [address] [id number] [place] [address]- 6576 Oct, [facility] [place] [facility] [address] [id number] [place] [address]- 8251 16 Oct, 2013 [facility] [place] [facility] [address] [id number] [place] [address]- 8597 16 Oct, 2013 [facility] [address] [id number] [place] [address]- 4217 Oct, [facility] [address] [id number] [place] [address]- 1436 Oct, [facility] [address] [id number] [place] [address]- 5237 31 Sep, 2013 [facility] [address] [id number] [place] [address]- 5688 30 Sep, 2013 [facility] [address] [id number] [place] [address]- 4309 30 Sep, 2013 [facility] [address] [id number] [place] [address]- 1111 29 Sep, 2013 [facility] [address] [id number] [place] [address]- 7438 Sep, [facility] [address] [id number] [place] [address]- 5469 Sep, [facility] [address] [id number] [place] [address]- 2641 Sep, [facility] [address] [id number] [place] [address]- 4430 Sep, [facility] [address] [id number] [place] [address]- 6006 Sep, [facility] [place] [facility] [address] [id number] [place] [address]- 3120 24 Sep, 2013 [facility] [place] [facility] [address] [id number] [place] [address]- 0438 Sep, [facility] [place] [facility] [address] [id number] [place] [address]- 0093 Sep, [facility] [place] [facility] [address] [id number] [place]598 16 Sep, 2013 [facility] [place] [facility] [address] [id number] [place] [address]- 2789 16 Sep, 2013 [facility] [place] [facility] [address] [id number] [place] [address]- 3756 Sep, [facility] [place] [facility] [address] [id number] [place] [address]- 2027 Sep, [facility] [place] [facility] [address] [id number] [place] [address]- 5053 Sep, [facility] [place] [facility] [address] [id number] [place] [address]- 4709 Sep, [facility] [place] [facility] [address] [id number] [place] [address]- 0319 Sep, [facility] [place] [facility] [address] [id number] [place] [address]- 4562 Aug, [facility] [place] [facility] [address] [id number] [place] [address]- 7386 Aug, [facility] [place] [facility] [address] [id number] [place] [address]- 1729 Aug, [facility] [place] [facility] [address] [id number] [place] [address]- 6628 Aug, [facility] [place] [facility] [address] [id number] [place] [address]- 8006 Aug, [facility] [place] [facility] [address] [id number] [place] [address]- 2929 Aug, [facility] [place] [facility] [address] [id number] [place] [address]- 0560 Aug, [facility] [place] [facility] [address] [id number] [place] [address] 2548 Aug, [facility] [place] [facility] [address] [id number] [place] [address]- 2545 Aug, [facility] [place] [facility] [address] [id number] [place] [address]- 4245 Aug, [facility] [place] [facility] [address] [id number] [place] [address]- 4520 Aug, [facility] [place] [facility] [address] [id number], [place] [address]- 0733 Aug, [facility] [place] [facility] [address] [facility] [id number] [place] [address]- 9988 Aug, [facility] [place] [facility] [address] [id number], [place] [address]- 3813 Aug, [facility] [place] [facility] [address] [id number] [place] [address]- 7442 Aug, [facility] [place] [facility] [address] [id number], [place] [address]- 0160 Aug, [facility] [place] [facility] [address] [id number], [place] [address]- 8512 Aug, [facility] [place] [facility] [address] [id number], [place] [address]- 6336 Jul, [facility] [place] [facility] [address] [id number], [place] [address]- 0022 Jul, [facility] [place] [facility] [address] [id number], [place] [address]- 5433 Jul, [facility] [place] [facility] [address] [id number], [place] [address]- 7579 Jul, [facility] [place] [facility] [address] [id number], [place] [address]- 3627 Jul, [facility] [place] [facility] [address] [id number], [place] [address]- 3827 Jul, [facility] [place] [facility] [address] [facility] [id number], [place] [address]- 1981 Jul, [facility] [place] [facility] [address] [id number], [place] [address]- 8752 Jun, [facility] [place] [facility] [address] [facility] [id number], [place] [address]- 9325 20 Jun, 2012 [facility] [address] [facility] [id number], [place] [address]- 5197 17 Jun, 2012 [facility] [address] [facility] [id number], [place] [address]- 2545 10 Jun, 2012 [facility] [address] [facility] [id number], [place] [address]- 1118 06 Jun, 2012 [facility] [address] [facility] [id number], [place] [address]- 3311 06 Jun, 2012 [facility] [address] [facility] [id number], [place] [address]- 6038 05 Jun, 2012 [facility] [address] [facility] [id number], [place] [address]- 6500 03 Jun, 2013 [facility] [id number], [place] [address]- 7029 27 May, 2013 [facility] [address] [facility] [id number], [place] [address]- 5673 22 May, 2013 [facility] [id number], [place] [address]- 2114 15 May, 2013 [facility] [address] [id number], [place] [address]- 0890 14 May, 2013 [facility] [id number], [place] [address]- 1202 May, [facility] [address] [facility] [id number], [place] [address]- 0466 May, [facility] [address] [facility] [id number], [place] [address]- 0468 May, [facility] [id number], [place] [address]- 1123 May, IMMUNIZATIONS No Known Immunizations SOCIAL HISTORY Never Assessed REASON FOR VISIT Controlled Medication Refill PLAN OF CARE VITAL SIGNS MEDICATIONS Medication Instructions Dosage Frequency Start Date End Date Duration Status Hydrocodone-Acetaminophen 5-325 MG Orally every 4- 6 hrs as needed 1 tablet Oct, Active RESULTS No Results PROCEDURES No [...] History Left foot cellulitis, left 2nd toe amputation-[facility] 12/23 Hospitalization History Surgery Hospitalizations
--- OUTSIDE RECORDS SUMMARY | 2018-08-22 09:26 | XMS REPORT ---
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 Role Phone FARNAZ FLORENCEY Unavailable PROBLEMS Type Condition ICD9-CM Code [id number] Code Onset Dates Condition Status SNOMED Code Problem Subclinical hypothyroidism E03.9 Active 18068253 Problem Hypertriglyceridemia E78.1 Active 806769624 Problem Type 2 diabetes mellitus with diabetic polyneuropathy E11.42 Active 284278868 Problem Type 2 diabetes mellitus with diabetic chronic 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 Active 044344050 Problem Other chronic pain G89.29 Active 74216046 Problem Type 2 diabetes mellitus with other skin complications E11.628 Active 71715869 Problem Pain in left foot M79.672 Active 18206466 Problem Irregular menstrual cycle N92.6 Active 08222240 Problem Pain in right foot M79.671 Active 37101277 Problem Tonsillolith J35.8 Active 0241528 Problem Chronic prescription opiate use Z79.891 Active 328857282 Problem Seasonal allergic rhinitis due to pollen J30.1 Active 01495431 Problem Asthma exacerbation, mild J45.901 Active 371921070 Problem Chronic kidney disease, stage III (moderate) N18.3 Active 752430513 Problem Chronic migraine G43.709 Active 38300006 Problem Moderate persistent asthma without complication J45.40 Active 773381416 Problem Intrinsic eczema L20.84 Active 03353379 Problem Severe episode of recurrent major depressive disorder, without psychotic features F33.2 Active 58982190 Problem Non-pressure chronic ulcer of right heel and midfoot limited to breakdown of skin L97.411 Active 568581761 Problem Ulcer of right heel L97.419 Active 022883601 Problem Obesity E66.9 Active 280980995 Problem Type 2 diabetes mellitus with foot ulcer E11.621 Active 13310165 Problem Essential hypertension I10 Active 63549732 Problem Anxiety disorder, unspecified F41.9 Active 445288691 Problem Type 2 diabetes mellitus with other specified complication E11.69 Active 673550739 Problem Status post amputation of toe of left foot Z89.422 Active 290251036 Problem DM neuro manif type II E11.49 Active 87440329 Problem History of amputation of hallux Z89.419 Active 827397339 ALLERGIES No Information ENCOUNTERS Encounter Location Date Diagnosis [place] [id number] [address]- [address] Mar, [facility] [address] [address]- [address] Mar, Moderate persistent asthma without complication J45.40 [facility] [address] 7[address]60- 0356 Mar, [place] [address] 16532- 8421 February, Chronic migraine G43.709 [facility] [address] 12196- 9350 February, Chronic migraine G43.709 [facility] [address] 02000- 7263 February, [place] [address] 36277- 6949 February, [facility] [address] 27424- 2548 February, Type 2 diabetes mellitus with diabetic polyneuropathy E11.42 ; Moderate persistent asthma without complication J45.40 ; Type 2 diabetes mellitus with foot ulcer E11.621 ; Non-pressure chronic ulcer of right heel and midfoot limited to breakdown of skin L97.411 ; Chronic migraine G43.709 and BMI 60.0-69.9, adult Z68.44 [facility] [address] [place] [id number] [place] [address] 20043 -3042 Jan, 2018 Asthma exacerbation, mild J45.901 ; Seasonal allergic rhinitis due to pollen J30.1 and BMI 60.0-69.9, adult Z68.44 [facility] [address] [place] [id number] [place] [address] 95692- 0399 Jan, [place] [address] [place] [id number] [place] [address] 35042- 7182 Jan, Other chronic pain G89.29 [place] [address] [place] [id number] [place] [address] 51737- 8339 30 Dec, 2017 Type 2 diabetes mellitus with diabetic polyneuropathy E11.42 [facility] [address] [place] [id number] [place] [address] 38593- 9454 Dec, Type 2 diabetes mellitus with diabetic polyneuropathy E11.42 [place] [address] 16991- 2015 15 Dec, 2017 [place] [address] [place] [id number] [place] [address] 81449- 2695 14 Dec, 2017 [place] [address] 23974- 5496 13 Dec, 2017 Chronic kidney disease, stage III (moderate) N18.3 [facility] [address] [place] [id number] [place] [address] 87113 -2009 09 Dec, 2017 Nausea R11.0 and Diarrhea, unspecified type R19.7 [place] [address] [place] [id number] [place] [address] 14408- 8853 07 Dec, 2017 Chronic kidney disease, stage III (moderate) N18.3 and Type 2 diabetes mellitus with diabetic polyneuropathy E11.42 [facility] [address] [place] [id number] [place] [address] 08245- 3107 Dec, [place] [address] [place] [id number] [place] [address] 21794- 7761 Nov, Ulcer of right heel L97.419 and Type 2 diabetes mellitus with diabetic polyneuropathy E11.42 [facility] [address] [place] [id number] [place] [address] [id number] Nov, Dental examination Z01.20 [facility] [address] [place] [id number] [place] [address] 31737- 1093 Nov, Open wound of right foot, initial encounter S91.301A [facility] [address] 73[address] -[address]44 Nov, Open wound of right foot, initial encounter S91.301A ; Non- intractable vomiting with nausea, unspecified vomiting type R11.2 and BMI 60.0- 69.9, adult Z68.44 [place] [address] [place] [id number] [place] [address] 33161- 3324 Nov, [place] [address] 07819- 6138 Nov, Other chronic pain G89.29 [place] [address] 98395- 7648 Oct, Cellulitis of right lower limb L03.115 [place] [address] [place] [id number] [place] [address] 23918- 5282 Oct, [place] [address] 91609- 8102 Oct, [place] [address] 15727- 4030 Oct, Cat scratch W55.03XA ; Cellulitis of right lower limb L03.115 ; Acute nasopharyngitis J00 ; BMI 60.0-69.9, adult Z68.44 and Cough R05 [place] [address] [place] [id number] [place] [address] 35943- 2483 Oct, Cat scratch W55.03XA ; Cutaneous abscess of right lower extremity L02.415 and Cellulitis of right lower limb L03.115 [place] [address] [place] [id number] [place] [address] 60165- 7982 Oct, Type 2 diabetes mellitus with diabetic polyneuropathy E11.42 [place] [address] 92167- 0802 Oct, Other chronic pain G89.29 [place] [address] [place] [id number] [place] [address] 06136- 7851 Aug, [place] [address] [place] [id number] [place] [address] 05293- 2850 Jul, Other chronic pain G89.29 [place] [address] 65466- 6049 Jul, [place] [address] 37123- 3828 Jul, Chronic kidney disease, stage III (moderate) N18.3 [place] [address] 90685- 6499 04 Jul, 2017 Type 2 diabetes mellitus with diabetic polyneuropathy E11.42 ; Essential hypertension I10 ; Irregular menstrual cycle N92.6 ; Hypertriglyceridemia E78.1 ; Anxiety disorder, unspecified F41.9 ; Severe episode of recurrent major depressive disorder, without psychotic features F33.2 ; Tonsillolith J35.8 ; Intrinsic eczema L20.84 ; Subclinical hypothyroidism E03.9 ; Viral pharyngitis J02.9 and Encounter for immunization Z23 [place] [address] [place] [id number] [place] [address] 02294- 5246 13 Jun, 2017 Essential hypertension I10 [place] [id number] [place] [address] 88938- 7791 08 Jun, 2017 [place] [address] 11731- 1056 Jun, [place] [address] [place] [id number] [place] [address] 72404- 3330 May, Moderate persistent asthma without complication J45.40 [place] [address] [place] [id number] [place] [address] 94201- 1186 May, Pain in right foot M79.671 ; Pain in left foot M79.672 ; Other chronic pain G89.29 and Chronic prescription opiate use Z79.891 [facility] [address] [address] 2251 May, [facility] [address] [place] [id number] [place] [address] 42018- 7961 May, [facility] [address] [place] [id number] [place] [address] 99733- 1500 Apr, [facility] [address] [place] [id number] [place] [address] 01547- 3285 Apr, Chronic migraine G43.709 [facility] [address] [place] [id number] [place] [address] 65532- 6758 Apr, Essential hypertension I10 ; Hypertriglyceridemia E78.1 and Chronic migraine G43.709 [facility] [address] [place] [id number] [place] [address] 03514- 9225 Apr, [facility] [address] [place] [id number] [place] [address] 58826- 6576 Apr, Sore throat J02.9 [facility] [address] [place] [id number] [place] [address] 11015- 2129 Apr, [facility] [address] [place] [id number] [place] [address] 22312- 3836 Mar, Strep pharyngitis J02.0 and Non-intractable vomiting with nausea, unspecified vomiting type R11.2 [facility] [address] [place] [id number] [place] [address] 68386- 0186 Mar, [facility] [address] [place] [id number] [place] [address] 27308- 9553 Mar, [facility] [address] [place] [id number] [place] [address] 95525- 2677 Mar, [facility] [address] [place] [id number] [place] [address] 08536- 0031 Mar, Type 2 diabetes mellitus with diabetic polyneuropathy E11.42 ; Moderate persistent asthma without complication J45.40 ; Status post amputation of toe of left foot Z89.422 ; Acute seasonal allergic rhinitis, unspecified trigger J30.2 and Left shoulder pain, unspecified chronicity M25.512 [place] [address] [place] [id number] [place] [address] 41108- 6780 Mar, [place] [address] [place] [id number] [place] [address] 79516- 2997 February, Pre-op evaluation Z01.818 ; Type 2 diabetes mellitus with diabetic polyneuropathy E11.42 and Type 2 diabetes mellitus with foot ulcer E11.621 [place] [address] [place] [id number] [place] [address] 25742- 4836 February, [place] [address] [place] [id number] [place] [address] 67858- 1579 February, [place] [address] [place] [id number] [place] [address] 47465- 1548 February, Toe infection L08.9 and Type 2 diabetes mellitus with other specified complication E11.69 [place] [address] [place] [id number] [place] [address] 53877- 7869 February, [place] [address] [place] [id number] [place] [address] 25667- 6023 Jan, Type 2 diabetes mellitus with diabetic polyneuropathy E11.42 [place] [address] [place] [id number] [place] [address] 81691- 5758 Jan, [place] [address] [place] [id number] [place] [address] 21607- 9126 Jan, Right upper quadrant pain R10.11 and Intractable vomiting with nausea, unspecified vomiting type R11.2 [place] [address] [place] [id number] [place] [address] 00153- 4995 Jan, Hypertriglyceridemia E78.1 and Essential hypertension I10 [place] [address] [place] [id number] [place] [address] 58529- 9666 Jan, Essential hypertension I10 ; Type 2 diabetes mellitus with diabetic polyneuropathy E11.42 and Hypertriglyceridemia E78.1 [facility] [address] [place] [id number] [place] [address] 57232- 9329 16 Dec, 2016 Type 2 diabetes mellitus with diabetic polyneuropathy E11.42 [facility] [address] [place] [id number] [place] [address] 15020- 3200 15 Dec, 2016 Hypertriglyceridemia E78.1 ; Essential hypertension I10 ; Type 2 diabetes mellitus with diabetic polyneuropathy E11.42 ; Anxiety disorder , unspecified F41.9 and Moderate persistent asthma without complication J45.40 [facility] [address] [place] [id number] [place] [address] 02967- 5279 Dec, Type 2 diabetes mellitus with diabetic polyneuropathy E11.42 [facility] [address] [place] [id number] [place] [address] [id number] Dec, [facility] [address] [place] [id number] [place] [address] 80874- 5948 Nov, [facility] [address] [place] [id number] [place] [address] 67992- 6081 Nov, [facility] [address] [place] [id number] [place] [address] 72066- 7183 Nov, [facility] [address] [place] [id number] [place] [address] 69911- 7292 Nov, Toe infection L08.9 [facility] [address] [place] [id number] [place] [address] 52599- 2539 Nov, [facility] [address] [place] [id number] [place] [address] 56227- 1056 Oct, History of amputation of hallux Z89.419 [facility] [address] [place] [id number] [place] [address] 87982- 5713 Oct, Type 2 diabetes mellitus with diabetic polyneuropathy E11.42 [facility] [address] [place] [id number] [place] [address] 86481- 9549 Oct, Type 2 diabetes mellitus with diabetic polyneuropathy E11.42 [facility] [address] [address]- 3064 13 Oct, 2016 Acute osteomyelitis of left foot M86.172 ; Pre-op exam Z01.818 and Type 2 diabetes mellitus with diabetic polyneuropathy E11.42 [facility] [address] [address]- 0037 13 Oct, 2016 Foot ulcer, left, with unspecified severity L97.529 ; Acute osteomyelitis of left foot M86.172 and Type 2 diabetes mellitus with diabetic polyneuropathy E11.42 [facility] [address] [address]- 6805 Sep, [facility] [address] [place] [id number] [place] [address] 29416- 6264 Sep, Intractable vomiting with nausea, unspecified vomiting type R11.2 and Right upper quadrant pain R10.11 [facility] [id number] [place] [address] 69165- 7115 Aug, [facility] [address] [place] [id number] [place] [address] 86517- 7373 Jul, [facility] [address] [place] [id number] [place] [address] 65469- 4505 Jul, Preop examination Z01.818 [facility] [address] [address]- 0798 Jul, [facility] [id number] [place] [address] 57950- 2197 Jul, [facility] [address] [address]- 4157 Jul, Chronic osteomyelitis of left foot M86.672 and Ulcer of left foot, with unspecified severity L97.529 [facility] [address] [address]- 2472 Jul, Non-pressure chronic ulcer of other part of left foot with unspecified severity L97.529 [facility] [address] [place] [address] [address]- 1875 Jul, [facility] [address] [place] [id number] [place] [address] 32611- 4810 Jul, [facility] [address] [place] [id number] [place] [address] 97759- 4526 Jun, [facility] [address] [place] [id number] [place] [address] 07839- 7451 Jun, [facility] [address] [place] [id number] [place] [address] 52769- 6575 Jun, [facility] [address] [place] [id number] [place] [address] 23192- 3693 21 Jun, 2016 Right upper quadrant pain R10.11 [facility] [address] [place] [id number] [place] [address] 32568- 8765 20 Jun, 2016 [facility] [address] [place] [id number] [place] [address] 90416- 0623 19 Jun, 2016 Intractable vomiting with nausea, unspecified vomiting type R11.2 [facility] [address] [place] [id number] [place] [address] 96994- 3616 13 Jun, 2016 Right upper quadrant pain R10.11 ; Migraine with aura and with status migrainosus, not intractable G43.101 and Intractable vomiting with nausea, unspecified vomiting type R11.2 [facility] [id number] [place] [address] 63472- 5046 12 Jun, 2016 [facility] [address] [place] [id number] [place] [address] 86348- 2613 Jun, Gastroenteritis K52.9 [facility] [address] [place] [id number] [place] [address] 39001- 8612 May, [facility] [address] [place] [id number] [place] [address] 13236- 8007 May, Hypertriglyceridemia E78.1 ; Essential hypertension I10 ; Type 2 diabetes mellitus with diabetic polyneuropathy E11.42 ; Moderate persistent asthma without complication J45.40 ; Type 2 diabetes mellitus with foot ulcer E11.621 ; Other chronic pain G89.29 ; Pain in right leg M79.604 ; Pain of left leg M79.605 ; Rash and nonspecific skin eruption R21 and Anxiety disorder, unspecified F41.9 [place] [address] [place] [id number] [place] [address] 74234- 4316 May, 2016 Essential hypertension I10 ; Hypertriglyceridemia E78.1 ; Upper respiratory infection J06.9 ; Subclinical hypothyroidism E03.9 and Type 2 diabetes mellitus with diabetic polyneuropathy E11.42 [place] [address] 92921- 7896 Apr, Hypertriglyceridemia E78.1 ; Subclinical hypothyroidism E03.9 ; Essential hypertension I10 and Type 2 diabetes mellitus with diabetic polyneuropathy E11.42 [place] [address] [place] [id number] [place] [address] 42757- 9833 Mar, [place] [address] [place] [id number] [place] [address] 07965- 8648 Mar, Ulcer of right heel L97.419 [place] [address] [place] [id number] [place] [address] 62988- 1604 Mar, [place] [address] [place] [id number] [place] [address] 05226- 3556 Mar, [place] [address] [place] [id number] [place] [address] 13967- 8766 February, [place] [address] [place] [id number] [place] [address] 93605- 7982 February, Ulcer of right heel L97.419 and DM neuro manif type II E11.49 [facility] [address] [place] [id number] [place] [address] 78790- 3311 Jan, [place] [address] [place] [id number] [place] [address] 72883- 2616 Jan, Ulcer of right heel L97.419 ; Type 2 diabetes mellitus with foot ulcer E11.621 and Non-pressure chronic ulcer of other part of left foot with unspecified severity L97.529 [facility] [address] [place] [id number] [place] [address] 09795- 4706 Jan, [facility] [address] [place] [id number] [place] [address] 60423- 4563 Jan, [facility] [address] [place] [id number] [place] [address] 36496- 3704 Jan, Infection of toenail L03.039 [facility] [address] [place] [id number] [place] [address] 08369- 7549 Jan, Blister of toe of left foot, initial encounter S90.425A and Type 2 diabetes mellitus with diabetic polyneuropathy E11.42 [facility] [address] [place] [id number] [place] [address] 05291- 0988 Jan, [facility] [address] [place] [id number] [place] [address] 84796 -0921 Jan, Sore throat J02.9 and Strep pharyngitis J02.0 [place] [address] [place] [id number] [place] [address] 28495- 4622 Dec, Type 2 diabetes mellitus with diabetic polyneuropathy E11.42 ; Upper respiratory infection J06.9 ; Cough R05 and Asthma exacerbation J45.901 [place] [address] [place] [id number] [place] [address] 99648- 8833 Oct, [facility] [address] [place] [id number] [place] [address] 44165- 2092 Oct, [facility] [address] [place] [id number] [place] [address] 65915- 9840 Oct, [facility] [address] [place] [id number] [place] [address] 87337- 9553 Oct, [facility] [address] [id number] [place] [address] 48920- 7958 Sep, [place] [address] [place] [id number] [place] [address] 52317- 5123 Aug, Anxiety disorder, unspecified F41.9 and Obesity E66.9 [place] [address] [place] [id number] [place] [address] 33754- 2482 Aug, Moderate persistent asthma without complication J45.[address] 23442- 5475 Aug, Anxiety disorder, unspecified F41.9 [place] [address] [place] [id number] [place] [address] 34036- 8274 Aug, Chronic migraine G43.709 ; Encounter for immunization Z23 ; Hypertriglyceridemia E78.1 ; Type 2 diabetes mellitus with diabetic polyneuropathy E11.42 ; Moderate persistent asthma without complication J45.40 and Morbid obesity E66.[address] 03911- 8939 Jul, [address] 27007- 3303 Jul, [address] 98189- 5443 Jul, [address] 00704- 9612 Jul, Subclinical hypothyroidism E03.9 [place] [id number] [place] [address] 53304- 9313 Jun, Essential hypertension, benign 401.1 ; Diabetic ulcer of lower extremity 250.80 ; Asthma 493.90 ; Diabetes mellitus type II, uncontrolled 250.02 and Hyperlipidemia associated with type 2 diabetes mellitus 250.80 [place] [address] 43836- 4817 18 Jun, 2015 [place] [address] 51524- 1352 Jun, [place] [address] [place] [address]- 4055 May, [facility] [id number] [place] [address] 75051- 9539 Apr, [facility] [address] [address] [id number] [place] [address] 23242- 8896 Apr, Viral upper respiratory infection 465.9 and Asthma 493.90 [facility] [id number] [place] [address] 21954- 6407 Mar, Abnormal ankle brachial index 796.4 [facility] [address] [address] [id number] [place] [address] [id number] February, [facility] [id number] [place] [address] [id number] February, Essential hypertension, benign 401.1 [facility] [id number] [place] [address] [phone] [phone] February, Diabetic peripheral neuropathy 250.60 ; Ulcer of heel and midfoot 707.14 and Decreased pedal pulses 785.9 [facility] [id number] [place] [address] [phone] February, [facility] [id number] [place] [address] [id number]- [phone] February, [facility] [address] [address] Jan, [facility] [id number] [place] [address] 2[address]- 2679 Jan, [facility] [id number] [place] [address]83- 0157 Dec, [facility] [id number] [place] [address]- 9858 Dec, [facility] [id number] [address] Nov, [facility] [address] [address] [place] [address] 2546 Nov, 2014 [facility] [place] [facility] [address] [id number] [place] [address] 2546 Nov, 2014 [facility] [place] [facility] [address] [id number] [place] [address] 2546 Nov, 2014 [facility] [place] [facility] [address] [id number] [place] [address] 2546 Nov, 2014 [facility] [place] [facility] [address] [id number] [place] [address] 2546 Nov, 2014 [facility] [place] [facility] [address] [id number] [place] [address] 2546 Nov, 2014 [facility] [place] [facility] [address] [facility] [id number] [place] [address] 2546 Nov, [facility] [place] [facility] [address] [facility] [id number] [place] [address]- 2548 Nov, [facility] [place] [facility] [address] [facility] [id number] [place] [address]- 5417 Oct, [facility] [place] [facility] [address] [facility] [id number] [place] [address] 2542 Oct, [facility] [place] [facility] [address] [facility] [id number] [place] [address] 2547 Oct, [facility] [place] [facility] [address] [facility] [id number] [place] [address] 2547 Oct, [facility] [place] [facility] [address] [id number] [place] [address] 2546 Oct, [facility] [place] [facility] [address] [id number] [place] [address] 2546 Oct, [facility] [place] [facility] [address] [facility] [id number] [place] [address] 2546 Oct, [facility] [place] [facility] [address] [id number] [place] [address]- 6848 Oct, [facility] [address] [id number] [place] [address]- 0270 Oct, [facility] [place] [facility] [address] [id number] [place] [address]- 8366 Oct, [facility] [place] [facility] [address] [id number] [place] [address]- 4242 Oct, [facility] [place] [facility] [address] [id number] [place] [address]- 4284 Oct, [facility] [place] [facility] [address] [id number] [place] [address]- 4568 Oct, [facility] [place] [facility] [address] [id number] [place] [address]- 5049 Sep, [facility] [place] [facility] [address] [id number] [place] [address]- 2473 Sep, [facility] [place] [facility] [address] [id number] [place] [address]- 6816 Sep, [facility] [place] [facility] [address] [id number] [place] [address]- 9514 Sep, [facility] [place] [facility] [address] [id number] [place] [address]- 2355 Sep, [facility] [place] [facility] [address] [id number] [place] [address]- 7244 Sep, [facility] [place] [facility] [address] [id number] [place] [address]- 3542 Sep, [facility] [place] [facility] [address] [id number] [place] [address]- 5845 Sep, [facility] [place] [facility] [address] [id number] [place] [address]- 6418 Sep, [facility] [place] [facility] [address] [id number] [place] 9663 Sep, [facility] [place] [facility] [address] [id number] [place] [address] Sep, [facility] [place] [facility] [address] [id number] [place] 5796 Sep, [facility] [place] [facility] [address] [id number] [place] 6210 Sep, [facility] [place] [facility] [address] [id number] [place] [address]- 5339 Sep, [facility] [place] [facility] [address] [id number] [place] 1233 Sep, [facility] [place] [facility] [address] [id number] [place] 9839 Sep, [facility] [place] [facility] [address] [id number] [place] [address]- 2777 Aug, [facility] [place] [facility] [address] [id number] [place] [address]- 5013 Aug, [facility] [place] [facility] [address] [id number] [place] [address]- 7436 Aug, [facility] [place] [facility] [address] [id number] [place] [address]- 0975 Aug, [facility] [place] [facility] [address] [facility] [id number] [place] [address]- 0124 Aug, [facility] [place] [facility] [address] [id number] [place] [address]- 4970 Aug, [facility] [place] [facility] [address] [id number] [place] [address]- 8881 Aug, [facility] [place] [facility] [address] [id number] [place] 6111 Aug, [facility] [place] [facility] [address] [id number] [place] [address]- 0867 Jul, [facility] [place] [facility] [address] [id number] [place] 3440 Jul, [facility] [place] [facility] [address] [id number] [place] [address]- 5970 30 Jul, 2014 [facility] [place] [facility] [address] [id number] [place] [address]- 3584 Jul, [facility] [place] [facility] [address] [id number] [place] [address]- 3016 Jul, [facility] [place] [facility] [address] [id number] [place] [address]- 7617 Jun, [facility] [place] [facility] [address] [id number] [place] [address]- 1013 Jun, [facility] [place] [facility] [address] [id number] [place] [address]- 6324 Jun, [facility] [place] [facility] [address] [id number] [place] [address]- 5663 Jun, [facility] [place] [facility] [address] [id number] [place] [address]- 0017 Jun, [facility] [place] [facility] [address] [id number] [place] [address]- 6374 May, [facility] [place] [facility] [address] [id number] [place] [address]- 9533 May, [facility] [place] [facility] [address] [id number] [place] [address]- 4103 Apr, [facility] [place] [facility] [address] [id number] [place] [address]- 9496 Apr, [facility] [place] [facility] [address] [id number] [place] [address]- 3317 Apr, [facility] [place] [facility] [address] [id number] [place] [address]- 3735 Apr, [facility] [place] [facility] [address] [id number] [place] [address]- 7799 Apr, [facility] [place] [facility] [address] [id number] [place] [address]- 2898 Apr, [facility] [place] [facility] [address] [id number] [place] [address]- 6708 Mar, [facility] [place] [facility] [address] [id number] [place] [address]- 0722 Mar, [facility] [place] [facility] [address] [id number] [place] [address]- 9765 Mar, [facility] [place] [facility] [address] [id number] [place] [address]- 9640 Mar, [facility] [place] [facility] [address] [id number] [place] [address]- 5294 Mar, [facility] [place] [facility] [address] [id number] [place] [address]- 1613 Mar, [facility] [place] [facility] [address] [id number] [place] [address]- 7875 Mar, [facility] [place] [facility] [address] [id number] [place] [address]- 4511 Mar, [facility] [place] [facility] [address] [id number] [place] [address]- 2883 Mar, [facility] [place] [facility] [address] [id number] [place] [address]- 8785 Mar, [facility] [place] [facility] [address] [id number] [place] [address]- 3139 Mar, [facility] [place] [facility] [address] [id number] [place] [address]- 0763 Mar, [facility] [place] [facility] [address] [id number] [place] [address]- 5577 Mar, [facility] [place] [facility] [address] [id number] [place] [address]- 4296 Mar, [facility] [place] [facility] [address] [id number] [place] [address]- 5422 Mar, [facility] [place] [facility] [address] [id number] [place] [address]- 3596 Mar, [facility] [address] [id number] [place] [address]- 1818 February, [facility] [place] [facility] [address] [id number] [place] [address]- 3833 February, [facility] [address] [id number] [place] [address]- 7962 February, [facility] [place] [facility] [address] [id number] [place] [address]- 0210 February, [facility] [address] [id number] [place] [address]- 5409 February, [facility] [place] [facility] [address] [id number] [place] [address]- 3817 February, [facility] [address] [id number] [place] [address]- 5818 February, [facility] [address] [id number] [place] [address]- 0998 February, [facility] [place] [facility] [address] [id number] [place] [address]- 2418 Jan, [facility] [address] [id number] [place] [address]- 4452 Jan, [facility] [place] [facility] [address] [id number] [place] [address]- 3663 Dec, [facility] [place] [facility] [address] [id number] [place] [address]- 1672 Dec, [facility] [place] [facility] [address] [id number] [place] [address]- 5511 Dec, [facility] [place] [facility] [address] [id number] [place] [address]- 2915 Dec, [facility] [place] [facility] [address] [id number] [place] [address]- 1998 Dec, [facility] [place] [facility] [address] [id number] [place] [address]- 2333 24 Dec, 2013 [facility] [place] [facility] [address] [id number] [place] [address]- 6128 19 Dec, 2013 [facility] [place] [facility] [address] [id number] [place] [address]- 0233 19 Dec, 2013 [facility] [place] [facility] [address] [id number] [place] [address]- 6193 17 Dec, 2013 [facility] [place] [facility] [address] [id number] [place] [address]- 1400 17 Dec, 2013 [facility] [place] [facility] [address] [id number] [place] [address]- 1822 14 Dec, 2013 [facility] [place] [facility] [address] [id number] [place] [address]- 4662 Dec, [facility] [place] [facility] [address] [id number] [place] [address]- 7729 Dec, [facility] [place] [facility] [address] [id number] [place] [address]- 9439 Dec, [facility] [place] [facility] [address] [id number] [place] [address]- 0298 Nov, [facility] [place] [facility] [address] [id number] [place] [address]- 4938 Nov, [facility] [place] [facility] [address] [id number] [place] [address]- 0780 Oct, [facility] [place] [facility] [address] [id number] [place] [address]- 9933 Oct, [facility] [place] [facility] [address] [id number] [place] [address]- 0171 Oct, [facility] [place] [facility] [address] [id number] [place] [address]- 8074 16 Oct, 2013 [facility] [place] [facility] [address] [id number] [place] [address]- 9415 16 Oct, 2013 [facility] [address] [id number] [place] [address]- 2578 Oct, [facility] [address] [id number] [place] [address]- 3502 Oct, [facility] [address] [id number] [place] [address]- 1228 31 Sep, 2013 [facility] [address] [id number] [place] [address]- 3788 30 Sep, 2013 [facility] [address] [id number] [place] [address]- 2023 30 Sep, 2013 [facility] [address] [id number] [place] [address]- 6086 29 Sep, 2013 [facility] [address] [id number] [place] [address]- 5939 Sep, [facility] [address] [id number] [place] [address]- 3398 27 Sep, 2013 [facility] [address] [id number] [place] [address]- 4511 Sep, [facility] [address] [id number] [place] [address]- 7404 Sep, [facility] [address] [id number] [place] [address]- 4497 24 Sep, 2013 [facility] [place] [facility] [address] [id number] [place] [address]- 2541 24 Sep, 2013 [facility] [place] [facility] [address] [id number] [place] [address]- 8530 Sep, [facility] [place] [facility] [address] [id number] [place] [address]- 3091 2013 [facility] [place] [facility] [address] [id number] [place] 3804 16 Sep, 2013 [facility] [place] [facility] [address] [id number] [place] [address]- 9024 16 Sep, 2013 [facility] [place] [facility] [address] [id number] [place] [address]- 2711 Sep, [facility] [place] [facility] [address] [id number] [place] [address]- 9059 Sep, [facility] [place] [facility] [address] [id number] [place] [address]- 2478 Sep, [facility] [place] [facility] [address] [id number] [place] [address]- 1843 Sep, [facility] [place] [facility] [address] [id number] [place] [address]- 0124 Sep, [facility] [place] [facility] [address] [id number] [place] [address]- 1749 Aug, [facility] [place] [facility] [address] [id number] [place] [address]- 1958 Aug, [facility] [place] [facility] [address] [id number] [place] [address]- 4926 Aug, [facility] [place] [facility] [address] [id number] [place] [address]- 9108 Aug, [facility] [place] [facility] [address] [id number] [place] [address]- 0023 Aug, [facility] [place] [facility] [address] [id number] [place] [address]- 2244 Aug, [facility] [place] [facility] [address] [id number] [place] [address]- 2974 Aug, [facility] [place] [facility] [address] [id number] [place] [address]- 3380 Aug, [facility] [place] [facility] [address] [id number] [place] [address]- 1044 Aug, [facility] [place] [facility] [address] [id number], [place] [address]- 6471 Aug, [facility] [place] [facility] [address] [id number] [place] [address]- 0198 Aug, [facility] [place] [facility] [address] [id number] [place] 0308 Aug, [facility] [place] [facility] [address] [facility] [id number] [place] [address]- 2962 Aug, [facility] [place] [facility] [address] [id number], [place] [address]- 0727 Aug, [facility] [place] [facility] [address] [id number] [place] [address]- 3896 Aug, [facility] [place] [facility] [address] [id number], [place] [address]- 3412 Aug, [facility] [place] [facility] [address] [id number], [place] [address]- 6293 Aug, [facility] [place] [facility] [address] [id number], [place] [address]- 0939 Jul, [facility] [place] [facility] [address] [id number], [place] [address]- 3930 Jul, [facility] [place] [facility] [address] [id number], [place] [address]- 7101 Jul, [facility] [place] [facility] [address] [id number], [place] [address]- 7589 Jul, [facility] [place] [facility] [address] [id number], [place] [address]- 8597 Jul, [facility] [place] [facility] [address] [id number] [place] [address]- 8197 Jul, [facility] [place] [facility] [address] [facility] [id number], [place] [address]- 8188 Jul, [facility] [place] [facility] [address] [id number], [place] [address]- 0769 Jun, [facility] [place] [facility] [address] [facility] [id number], [place] [address]- 9456 20 Jun, 2012 [facility] [address] [facility] [id number], [place] [address]- 9322 17 Jun, 2012 [facility] [address] [facility] [id number], [place] [address]- 3563 10 Jun, 2012 [facility] [address] [facility] [id number], [place] [address]- 8908 06 Jun, 2012 [facility] [address] [facility] [id number], [place] [address]- 9964 06 Jun, 2012 [facility] [address] [facility] [id number], [place] [address]- 0347 05 Jun, 2012 [facility] [address] [facility] [id number], [place] [address]- 4541 03 Jun, 2013 [facility] [id number], [place] [address]- 3436 27 May, 2013 [facility] [address] [id number], [place] [address]- 5701 22 May, 2013 [facility] [id number], [place] [address]- 7771 15 May, 2013 [facility] [address]00565[address], [place] [address]- 5515 14 May, 2013 [facility] [address]65[address], [place] [address]- 8625 May, [facility] [address] [facility] [id number], [place] [address]- 4654 May, [facility] [address]65[address], [place] [address]- 4729 09 May, 2013 [facility] [address]65[address], [place] [address]- 2152 May, IMMUNIZATIONS No Known Immunizations SOCIAL HISTORY Never Assessed REASON FOR VISIT Refill Request PLAN OF CARE VITAL SIGNS MEDICATIONS Medication Instructions Dosage Frequency Start Date End Date Duration Status NovoLog Flexpen 100 UNIT/ML Subcutaneous 3 times a day 30 units 8h Active Levemir Flexpen 100 UNIT/ML subcutaneously 2 times a day 50 units 12h Active RESULTS No Results PROCEDURES No Known procedures INSTRUCTIONS MEDICATIONS ADMINISTERED No Known Medications MEDICAL (GENERAL) HISTORY Type Description Date Medical History type I diabetes Medical History hypertension Medical History hyperlipidemia Medical History asthma Medical History migraine headaches Medical History allergic rhinitis Medical History neuropathy Medical History Chronic osteomyelitis, site unspecified Medical History 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 Surgical History appendectomy [facility] 1995 Surgical History salpingectomy [facility] Surgical History bladder surgery-stretch [facility] 2003 Surgical History exploratory laparoscopy [facility] 1995 Surgical History amputation, toe (R great) Surgical History amputation, (R forefoot) 2014 Surgical History amputation, toe Left second 12/2016 Surgical History amputation, 4th left toe 02/2017 Hospitalization History Left foot cellulitis, left 2nd toe amputation-[facility] 12/23 Hospitalization History Surgery Hospitalizations
--- OUTSIDE RECORDS SUMMARY | 2018-08-22 09:26 | XMS REPORT ---
Author Author LUDIVINA STEPHANIE [facility] Address [address] [place] [address] Care Team Providers Care Division Merchandise Manager Name Role Phone DEE DEE FLORENCEHANY Unavailable PROBLEMS Type Condition ICD9-CM Code [id number] Code Onset Dates Condition Status SNOMED Code Problem Type 2 diabetes mellitus with foot ulcer E11.621 Active 70927453 Problem History of amputation of hallux Z89.419 Active 219723980 Problem DM neuro manif type II E11.49 Active 25669975 Problem Pain in right foot M79.671 Active 21392880 Problem Pain in left foot M79.672 Active 33094685 Problem Status post amputation of toe of left foot Z89.422 Active 389631159 Problem Type 2 diabetes mellitus with other specified complication E11.69 Active 734441573 Problem Other chronic pain G89.29 Active 48824143 Problem Chronic prescription opiate use Z79.891 Active 893161744 Problem Irregular menstrual cycle N92.6 Active 96037252 Problem Moderate persistent asthma without complication J45.40 Active 161945668 Problem Essential hypertension I10 Active 36442584 Problem Type 2 diabetes mellitus with diabetic polyneuropathy E11.42 Active 416307006 Problem Hypertriglyceridemia E78.1 Active 860106878 Problem Type 2 diabetes mellitus with other skin complications E11.628 Active 20633226 Problem Chronic migraine G43.709 Active 00080474 Problem Anxiety disorder, unspecified F41.9 Active 431620662 Problem Subclinical hypothyroidism E03.9 Active 49392508 Problem Obesity E66.9 Active 160063302 ALLERGIES No Information SOCIAL HISTORY Never Assessed [...] N[facility] Antunez [facility] 1995 Surgical History amputation, toe (R great) Surgical History amputation, (R forefoot) 2014 Surgical History amputation, toe Left second 12/2016 Surgical History amputation, 4th left toe 02/2017 Hospitalization History Left foot cellulitis, left 2nd toe amputation-[facility] 12/23
--- OUTSIDE RECORDS SUMMARY | 2018-08-22 09:27 | XMS REPORT ---
Author Author LUDIVINA STEPHANIE [facility] Address [address] [place] [address] Care Team Providers Care Quality Control Industrial Engineer Name Role Phone LUDIVINADEE DEE FAIRCHILDHANY Unavailable PROBLEMS Type Condition ICD9-CM Code ARF25-AU Code Onset Dates Condition Status SNOMED Code Problem Type 2 diabetes mellitus with other specified complication E11.69 Active 428432741 Problem Pain in left foot M79.672 Active 59645781 Problem Status post amputation of toe of left foot Z89.422 Active 613165404 Problem Intrinsic eczema L20.84 Active 74529634 Problem Irregular menstrual cycle N92.6 Active 20505552 Problem Severe episode of recurrent major depressive disorder, without psychotic features F33.2 Active 11893248 Problem Essential hypertension I10 Active 60107987 Problem Type 2 diabetes mellitus with diabetic polyneuropathy E11.42 Active 721792865 Problem Other chronic pain G89.29 Active 03420225 Problem Pain in right foot M79.671 Active 47984981 Problem Tonsillolith J35.8 Active 1124856 Problem Chronic prescription opiate use Z79.891 Active 372000732 Problem Subclinical hypothyroidism E03.9 Active 29764284 Problem Hypertriglyceridemia E78.1 Active 559463466 Problem Moderate persistent asthma without complication J45.40 Active 722265992 Problem Chronic migraine G43.709 Active 25748752 Problem Obesity E66.9 Active 116622288 Problem Type 2 diabetes mellitus with foot ulcer E11.621 Active 70097516 Problem Type 2 diabetes mellitus with other skin complications E11.628 Active 30135465 Problem DM neuro manif type II E11.49 Active 99511783 Problem Anxiety disorder, unspecified F41.9 Active 373266057 Problem History of amputation of hallux Z89.419 Active 990465720 ALLERGIES No Information SOCIAL HISTORY Never Assessed PLAN OF CARE VITAL SIGNS MEDICATIONS Medication Instructions Dosage Frequency Start Date End Date Duration Status Montelukast Sodium 10 mg Orally Once a day 1 tablet in the evening 24h 90 days Active Sertraline HCl 50 mg Orally Once a day 1 tablet 24h 90 days Active Metformin HCl 1000 MG Orally Twice a day 1 tablet with meals 12h May, 90 days Active Fenofibrate 160 MG Orally Once a day 1 tablet with a meal 24h May, 90 days Active Metoprolol Tartrate 50 mg Orally Twice a day 1 tablet with food 12h 90 days Active Gabapentin 300 MG Orally 3 times a day 1 capsule 8h Aug, 90 days Active Atorvastatin Calcium 40 mg Orally Once a day 1 tablet 24h Aug, 90 days Active Hydrochlorothiazide 25 MG Orally Once a day 1 tablet 24h 90 days Active RESULTS No Results PROCEDURES [...] History Left foot cellulitis, left 2nd toe amputation-[facility] 12/23
--- OUTSIDE RECORDS SUMMARY | 2018-08-22 09:27 | XMS REPORT ---
Author Author LUDIVINA STEPHANIE [facility] Address [address] [place] [address] Care Team Providers Care Chief Fishery Division Name Role Phone LUDIVINADEE DEE FAIRCHILDHANY Unavailable PROBLEMS Type Condition ICD9-CM Code [id number] Code Onset Dates Condition Status SNOMED Code Problem Type 2 diabetes mellitus with foot ulcer E11.621 Active 88194348 Problem History of amputation of hallux Z89.419 Active 847544923 Problem DM neuro manif type II E11.49 Active 82481621 Problem Pain in right foot M79.671 Active 76065669 Problem Pain in left foot M79.672 Active 94773192 Problem Status post amputation of toe of left foot Z89.422 Active 546355431 Problem Type 2 diabetes mellitus with other specified complication E11.69 Active 005904734 Problem Other chronic pain G89.29 Active 57533810 Problem Chronic prescription opiate use Z79.891 Active 651730877 Problem Irregular menstrual cycle N92.6 Active 33417732 Problem Moderate persistent asthma without complication J45.40 Active 082196179 Problem Essential hypertension I10 Active 92433626 Problem Type 2 diabetes mellitus with diabetic polyneuropathy E11.42 Active 868639826 Problem Hypertriglyceridemia E78.1 Active 917379143 Problem Type 2 diabetes mellitus with other skin complications E11.628 Active 42050393 Problem Chronic migraine G43.709 Active 94214187 Problem Anxiety disorder, unspecified F41.9 Active 062751330 Problem Subclinical hypothyroidism E03.9 Active 17589545 Problem Obesity E66.9 Active 586482402 ALLERGIES Substance Reaction Event Type Date Status Penicillin V Potassium Unknown Drug Allergy Oct, Active SOCIAL HISTORY No smoking Hx information available PLAN OF CARE Activity Details Follow Up 2 Weeks Reason:DMII VITAL SIGNS Height 62 in 2016-11-06 Weight 335.4 lbs 2016-11-06 Temperature 97.1 degrees Fahrenheit 2016-11-06 Heart Rate 76 bpm 2016-11-06 Respiratory Rate 20 2016-11-06 BMI 61.34 kg/m2 2016-11-06 Blood pressure systolic 116 mmHg 2016-11-06 Blood pressure diastolic 72 mmHg 2016-11-06 MEDICATIONS Medication Instructions Dosage Frequency Start Date End Date Duration Status Fenofibrate 160 MG Orally Once a day 1 tablet with a meal 24h May, 90 days Active Probiotic - Active Hydrochlorothiazide 25 MG Orally Once a day 1 tablet 24h 90 days Active cromolyn 4 % instill 2 drops into affected eye(s) by Ophthalmic route 2 times per day Jun, Active Nystatin 100,000 unit/gram apply to the affected area(s) by Topical route 4-8 times per day as needed Jun, Active Metoprolol Tartrate 50 mg Orally Twice a day 1 tablet with food 12h 90 days Active Hydrocodone-Acetaminophen 5-325 MG Orally every 4- 6 hrs as needed 1 tablet February, Active Gabapentin 300 MG Orally 3 times a day 1 capsule 8h Aug, 90 days Active Montelukast Sodium 10 mg Orally Once a day 1 tablet in the evening 24h 90 days Active Atorvastatin Calcium 40 MG Orally Once a day 1 tablet 24h Aug, 90 days Active NovoLog Flexpen 100 UNIT/ML Subcutaneous 3 times a day 30 units 8h Jan, 90 days Active Levemir Flexpen 100 UNIT/ML subcutaneously 2 times a day 40 units 12h 90 days Active Phenergan 25 MG Rectal every 4-6 hours as needed 1 suppository as needed Sep, Active Sertraline HCl 50 mg Orally Once a day 1 tablet 24h 90 days Active Multivitamin 1 Tablet 1 time per day May, Active Lisinopril 40 mg Orally Once a day 1 tablet 24h Jul, 90 days Active Pulmicort Flexhaler 90 MCG/ACT Inhalation Twice a day 1 puff 12h 25 Jun, 2015 Active Metformin HCl 1000 MG Orally Twice a day 1 tablet with meals 12h May, 90 days Active Promethazine HCl 25 MG Orally every 4 hours 1 tablet as needed 4h Jun, Active Albuterol Sulfate 90 mcg/actuation Inhalation every 4-6 hours as needed 2 puffs May, Active RESULTS Name Result Date Reference Range A1C (IN HOUSE) 2016-11-06 A1C IN HOUSE 8.1 4.3 - 5.6 % Previous A1c 8.6 Lot [id number] Exp date 06/2018 PROCEDURES Procedure Date Ordered Related Diagnosis Body Site GLYCATED HEMOGLOBIN TEST Nov 06, 2016 Office Visit, Est Pt., Level 3 Nov 06, 2016 IMMUNIZATIONS No Known Immunizations
--- OUTSIDE RECORDS SUMMARY | 2018-08-22 09:27 | XMS REPORT ---
Author Author STEPHANIE FLORENCE [facility] Address [address] [place] [address] Care Team Providers Care Roll Picker Name Role Phone LUDIVINADEE DEE FAIRCHILDHANY Unavailable PROBLEMS Type Condition ICD9-CM Code [id number] Code Onset Dates Condition Status SNOMED Code Problem Type 2 diabetes mellitus with foot ulcer E11.621 Active 00710474 Problem History of amputation of hallux Z89.419 Active 995037557 Problem DM neuro manif type II E11.49 Active 22285117 Problem Pain in right foot M79.671 Active 96859045 Problem Pain in left foot M79.672 Active 43915405 Problem Status post amputation of toe of left foot Z89.422 Active 533109586 Problem Type 2 diabetes mellitus with other specified complication E11.69 Active 522619968 Problem Other chronic pain G89.29 Active 42939973 Problem Chronic prescription opiate use Z79.891 Active 027526882 Problem Irregular menstrual cycle N92.6 Active 49900758 Problem Moderate persistent asthma without complication J45.40 Active 376404278 Problem Essential hypertension I10 Active 13293491 Problem Type 2 diabetes mellitus with diabetic polyneuropathy E11.42 Active 757078808 Problem Hypertriglyceridemia E78.1 Active 707191135 Problem Type 2 diabetes mellitus with other skin complications E11.628 Active 64208346 Problem Chronic migraine G43.709 Active 34501974 Problem Anxiety disorder, unspecified F41.9 Active 911904704 Problem Subclinical hypothyroidism E03.9 Active 84628071 Problem Obesity E66.9 Active 422360612 ALLERGIES No Information SOCIAL HISTORY Never Assessed PLAN OF CARE VITAL SIGNS MEDICATIONS Medication Instructions Dosage Frequency Start Date End Date Duration Status Nystatin 100,000 unit/gram apply to the affected area(s) by Topical route 4-8 times per day as needed Jun, Active RESULTS No Results PROCEDURES No Known procedures IMMUNIZATIONS No Known Immunizations MEDICAL (GENERAL) HISTORY Type Description Date Medical History type I diabetes Medical History hypertension Medical History hyperlipidemia Medical History asthma Medical History migraine headaches Medical History allergic rhinitis Medical History neuropathy Medical History Chronic osteomyelitis, site unspecified Surgical History appendectomy [facility] 1995 Surgical History salpingectomy [facility] Surgical History bladder surgery-stretch [facility] 2003 Surgical History exploratory laparoscopy [facility] 1995 Surgical History amputation, toe (R great) Surgical History amputation, (R forefoot) 2014 Surgical History amputation, toe Left second 12/2016 Surgical History amputation, 4th left toe 02/2017 Hospitalization History Left foot cellulitis, left 2nd toe amputation-[facility] 12/23
--- OUTSIDE RECORDS SUMMARY | 2018-08-22 09:27 | XMS REPORT ---
Author Author JERMAIN BROWN Organization [facility] Address [address] [place] [address] Care Team Providers Care Housekeeping Room Attendant Name Role Phone JERMAIN BROWN Unavailable PROBLEMS Type Condition ICD9-CM Code [id number] Code Onset Dates Condition Status SNOMED Code Problem Type 2 diabetes mellitus with foot ulcer E11.621 Active 11443757 Problem History of amputation of hallux Z89.419 Active 798134194 Problem DM neuro manif type II E11.49 Active 80385905 Problem Pain in right foot M79.671 Active 25734390 Problem Pain in left foot M79.672 Active 39331955 Problem Status post amputation of toe of left foot Z89.422 Active 763606537 Problem Type 2 diabetes mellitus with other specified complication E11.69 Active 556385990 Problem Other chronic pain G89.29 Active 87354420 Problem Chronic prescription opiate use Z79.891 Active 838579119 Problem Irregular menstrual cycle N92.6 Active 10109391 Problem Moderate persistent asthma without complication J45.40 Active 596406551 Problem Essential hypertension I10 Active 67916995 Problem Type 2 diabetes mellitus with diabetic polyneuropathy E11.42 Active 090580301 Problem Hypertriglyceridemia E78.1 Active 071565801 Problem Type 2 diabetes mellitus with other skin complications E11.628 Active 82672615 Problem Chronic migraine G43.709 Active 97711781 Problem Anxiety disorder, unspecified F41.9 Active 207577485 Problem Subclinical hypothyroidism E03.9 Active 56210565 Problem Obesity E66.9 Active 074742560 ALLERGIES No Information SOCIAL HISTORY Never Assessed PLAN OF CARE Activity Details Follow Up 4 Weeks Reason: VITAL SIGNS Height 62 in 2016-11-20 Blood pressure systolic 130 mmHg 2016-11-20 Blood pressure diastolic 90 mmHg 2016-11-20 MEDICATIONS Unknown Medications RESULTS No Results PROCEDURES No Known procedures IMMUNIZATIONS No Known Immunizations MEDICAL (GENERAL) HISTORY Type Description Date Medical History type I diabetes Medical History hypertension Medical History hyperlipidemia Medical History asthma Medical History migraine headaches Medical History allergic rhinitis Medical History neuropathy Medical History Chronic osteomyelitis, site unspecified Surgical History appendectomy [facility] [address] [facility] Surgical History bladder surgery-stretch [facility] 2003 Surgical History exploratory laparoscopy [facility] 1995 Surgical History amputation, toe (R great) Surgical History amputation, (R forefoot) 2014 Surgical History amputation, toe Left second 12/2016 Surgical History amputation, 4th left toe 02/2017 Hospitalization History Left foot cellulitis, left 2nd toe amputation-[facility] 12/23
--- OUTSIDE RECORDS SUMMARY | 2018-08-22 09:28 | XMS REPORT ---
Author Author LUDIVINASTEPHANIE FAIRCHILD Organization [facility] Address [address] [place] [address] Care Team Providers Care Director [employer] Name Role Phone FARNAZ FLORENCEY Unavailable PROBLEMS Type Condition ICD9-CM Code OGB16-WG Code Onset Dates Condition Status SNOMED Code Problem Subclinical hypothyroidism E03.9 Active 72697703 Problem Hypertriglyceridemia E78.1 Active 363749467 Problem Type 2 diabetes mellitus with diabetic polyneuropathy E11.42 Active 798275750 Problem Status post amputation of toe of left foot Z89.422 Active 577088666 Problem Type 2 diabetes mellitus with diabetic chronic 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 Active 747536980 Problem Other chronic pain G89.29 Active 09819909 Problem Type 2 diabetes mellitus with other skin complications E11.628 Active 01571204 Problem Pain in left foot M79.672 Active 98356791 Problem Chronic prescription opiate use Z79.891 Active 076052866 Problem Pain in right foot M79.671 Active 49048224 Problem Seasonal allergic rhinitis due to pollen J30.1 Active 05531538 Problem Asthma exacerbation, mild J45.901 Active 000286237 Problem Chronic migraine G43.709 Active 31603480 Problem Moderate persistent asthma without complication J45.40 Active 534402976 Problem Irregular menstrual cycle N92.6 Active 51566749 Problem Severe episode of recurrent major depressive disorder, without psychotic features F33.2 Active 04132894 Problem Tonsillolith J35.8 Active 5898032 Problem Ulcer of right heel L97.419 Active 587983094 Problem Intrinsic eczema L20.84 Active 71260015 Problem Anxiety disorder, unspecified F41.9 Active 131821626 Problem Obesity E66.9 Active 219487280 Problem Chronic kidney disease, stage III (moderate) N18.3 Active 169872559 Problem Essential hypertension I10 Active 00681908 Problem History of amputation of hallux Z89.419 Active 679158645 Problem Type 2 diabetes mellitus with other specified complication E11.69 Active 492546957 Problem Type 2 diabetes mellitus with foot ulcer E11.621 Active 18906190 Problem DM neuro manif type II E11.49 Active 24673181 ALLERGIES No Information ENCOUNTERS Encounter Location Date Diagnosis [facility] [id number] [place] [address] 48166- 5577 February, [facility] [address] 15[address] -[address]73 Jan, Asthma exacerbation, mild J45.901 ; Seasonal allergic rhinitis due to pollen J30.1 and BMI 60.0-69.9, adult Z68.44 [facility] [address] 37908- 4708 Jan, [place] [address] 54197- 7757 Jan, Other chronic pain G89.29 [place] [address] 46605- 9763 30 Dec, 2017 Type 2 diabetes mellitus with diabetic polyneuropathy E11.42 [place] [id number] [place] [address] 82180- 1239 19 Dec, 2017 Type 2 diabetes mellitus with diabetic polyneuropathy E11.42 [place] [id number] [place] [address] 58255- 1106 15 Dec, 2017 [place] [id number] [place] [address] 81895- 5651 14 Dec, 2017 [place] [id number] [place] [address] 28938- 6601 Dec, Chronic kidney disease, stage III (moderate) N18.3 [facility] [id number] [place] [address] 13213 -1663 09 Dec, 2017 Nausea R11.0 and Diarrhea, unspecified type R19.7 [place] [id number] [place] [address] 75247- 3096 Dec, Chronic kidney disease, stage III (moderate) N18.3 and Type 2 diabetes mellitus with diabetic polyneuropathy E11.42 [facility] [id number] [place] [address] 54779- 9105 Dec, [facility] [address] 42379- 7975 23 Nov, 2017 Ulcer of right heel L97.419 and Type 2 diabetes mellitus with diabetic polyneuropathy E11.42 [facility] [id number] [place] [address] [id number] Nov, Dental examination Z01.20 [facility] [address] 09954- 5319 Nov, Open wound of right foot, initial encounter S91.301A [facility] [id number] [place] [address] 10430 -0513 Nov, Open wound of right foot, initial encounter S91.301A ; Non- intractable vomiting with nausea, unspecified vomiting type R11.2 and BMI 60.0- 69.9, adult Z68.44 [place] [id number] [place] [address] 04930- 2554 Nov, [facility] [id number] [place] [address] 34861- 4926 Nov, Other chronic pain G89.29 [place] [id number] [place] [address] 40375- 9117 Oct, Cellulitis of right lower limb L03.115 [facility] [id number] [place] [address] 00000- 3852 Oct, [place] [address] 36210- 4916 Oct, [facility] [id number] [place] [address] 59688- 1092 Oct, Cat scratch W55.03XA ; Cellulitis of right lower limb L03.115 ; Acute nasopharyngitis J00 ; BMI 60.0-69.9, adult Z68.44 and Cough R05 [address] 94580- 1633 Oct, Cat scratch W55.03XA ; Cutaneous abscess of right lower extremity L02.415 and Cellulitis of right lower limb L03.[address] 20932- 5574 Oct, Type 2 diabetes mellitus with diabetic polyneuropathy E11.42 [place] [address] 10937- 3248 Oct, Other chronic pain G89.[address] 38105- 5064 Aug, [address] 15358- 8968 Jul, Other chronic pain G89.29 [place] [address] 07470- 2769 Jul, [address] 71474- 6797 Jul, Chronic kidney disease, stage III (moderate) N18.[address] 83454- 8416 04 Jul, 2017 Type 2 diabetes mellitus with diabetic polyneuropathy E11.42 ; Essential hypertension I10 ; Irregular menstrual cycle N92.6 ; Hypertriglyceridemia E78.1 ; Anxiety disorder, unspecified F41.9 ; Severe episode of recurrent major depressive disorder, without psychotic features F33.2 ; Tonsillolith J35.8 ; Intrinsic eczema L20.84 ; Subclinical hypothyroidism E03.9 ; Viral pharyngitis J02.9 and Encounter for immunization Z23 [place] [id number] [place] [address] 75440- 9119 13 Jun, 2017 Essential hypertension I10 [address] 58070- 1853 Jun, [facility] [id number] [place] [address] 04236- 8030 Jun, [facility] [id number] [place] [address] 53112- 3151 May, Moderate persistent asthma without complication J45.40 [facility] [id number] [place] [address] 99786- 2745 May, Pain in right foot M79.671 ; Pain in left foot M79.672 ; Other chronic pain G89.29 and Chronic prescription opiate use Z79.891 [facility] [address] 66673- 5875 May, [facility] [id number] [place] [address] 53992- 0547 May, [facility] [id number] [place] [address] 28774- 4183 Apr, [facility] [id number] [place] [address] 95151- 1114 Apr, Chronic migraine G43.709 [facility] [id number] [place] [address] 54220- 2011 Apr, Essential hypertension I10 ; Hypertriglyceridemia E78.1 and Chronic migraine G43.709 [facility] [id number] [place] [address] 09813- 4055 Apr, [facility] [id number] [place] [address] 27384- 8923 Apr, Sore throat J02.9 [facility] [id number] [place] [address] 42080- 0374 Apr, [facility] [id number] [place] [address] 85618- 4603 Mar, Strep pharyngitis J02.0 and Non-intractable vomiting with nausea, unspecified vomiting type R11.2 [place] [id number] [place] [address] 49755- 1560 Mar, [place] [id number] [place] [address] 30240- 1016 Mar, [place] [id number] [place] [address] 00388- 8505 Mar, [place] [id number] [place] [address] 45357- 9607 Mar, Type 2 diabetes mellitus with diabetic polyneuropathy E11.42 ; Moderate persistent asthma without complication J45.40 ; Status post amputation of toe of left foot Z89.422 ; Acute seasonal allergic rhinitis, unspecified trigger J30.2 and Left shoulder pain, unspecified chronicity M25.512 [place] [id number] [place] [address] 49795- 6907 Mar, [place] [id number] [place] [address] 67976- 2930 February, Pre-op evaluation Z01.818 ; Type 2 diabetes mellitus with diabetic polyneuropathy E11.42 and Type 2 diabetes mellitus with foot ulcer E11.621 [place] [id number] [place] [address] 71015- 6214 February, [place] [id number] [place] [address] 70284- 9213 February, [place] [id number] [place] [address] 43281- 0213 February, Toe infection L08.9 and Type 2 diabetes mellitus with other specified complication E11.69 [place] [id number] [place] [address] 75277- 2647 February, [place] [id number] [place] [address] 44888- 8414 Jan, Type 2 diabetes mellitus with diabetic polyneuropathy E11.42 [place] [id number] [place] [address] 91531- 7383 Jan, [facility] [id number] [place] [address] 05165- 2377 Jan, Right upper quadrant pain R10.11 and Intractable vomiting with nausea, unspecified vomiting type R11.2 [facility] [id number] [place] [address] 54110- 7939 10 Jan, 2017 Hypertriglyceridemia E78.1 and Essential hypertension I10 [place] [address] 18554- 7233 Jan, Essential hypertension I10 ; Type 2 diabetes mellitus with diabetic polyneuropathy E11.42 and Hypertriglyceridemia E78.1 [place] [id number] [place] [address] 88467- 1399 16 Dec, 2016 Type 2 diabetes mellitus with diabetic polyneuropathy E11.42 [place] [id number] [place] [address] 46714- 9697 Dec, Hypertriglyceridemia E78.1 ; Essential hypertension I10 ; Type 2 diabetes mellitus with diabetic polyneuropathy E11.42 ; Anxiety disorder , unspecified F41.9 and Moderate persistent asthma without complication J45.40 [place] [id number] [place] [address] 00380- 0788 Dec, Type 2 diabetes mellitus with diabetic polyneuropathy E11.42 [facility] [id number] [place] [address] [id number] Dec, [facility] [id number] [place] [address] 48116- 7138 Nov, [facility] [id number] [place] [address] 30937- 3262 Nov, [facility] [id number] [place] [address] 54896- 2280 Nov, [facility] [id number] [place] [address] 05212- 5501 Nov, Toe infection L08.9 [facility] [id number] [place] [address] 69399- 9051 Nov, [facility] [id number] [place] [address] 97259- 2734 Oct, History of amputation of hallux Z89.419 [place] [id number] [place] [address] 76913- 0150 Oct, Type 2 diabetes mellitus with diabetic polyneuropathy E11.42 [facility] [id number] [place] [address] 92236- 9258 Oct, Type 2 diabetes mellitus with diabetic polyneuropathy E11.42 [place] [id number] [place] [address] 30061- 2043 Oct, Acute osteomyelitis of left foot M86.172 ; Pre-op exam Z01.818 and Type 2 diabetes mellitus with diabetic polyneuropathy E11.42 [place] [id number] [place] [address] 34559- 8780 Oct, Foot ulcer, left, with unspecified severity L97.529 ; Acute osteomyelitis of left foot M86.172 and Type 2 diabetes mellitus with diabetic polyneuropathy E11.42 [place] [id number] [place] [address] 10109- 0365 Sep, [place] [id number] [place] [address] 68423- 0016 Sep, Intractable vomiting with nausea, unspecified vomiting type R11.2 and Right upper quadrant pain R10.11 [place] [id number] [place] [address] 67405- 4460 Aug, [place] [id number] [place] [address] 41488- 7666 Jul, [place] [id number] [place] [address] 52872- 1165 13 Jul, 2016 Preop examination Z01.818 [place] [id number] [place] [address] 66056- 4300 Jul, [facility] [address] [address]- 2986 Jul, [facility] [id number] [place] [address] 13929- 8935 Jul, Chronic osteomyelitis of left foot M86.672 and Ulcer of left foot, with unspecified severity L97.529 [facility] [id number] [place] [address] 06438- 7088 Jul, Non-pressure chronic ulcer of other part of left foot with unspecified severity L97.529 [facility] [id number] [place] [address] 85236- 6009 Jul, [facility] [id number] [place] [address] 26101- 9211 Jul, [facility] [id number] [place] [address] 20851- 0526 Jun, [facility] [id number] [place] [address] 56403- 7425 Jun, [facility] [id number] [place] [address] 49398- 0887 Jun, [facility] [id number] [place] [address] 19181- 4511 Jun, Right upper quadrant pain R10.11 [facility] [id number] [place] [address] 36863- 9004 20 Jun, 2016 [facility] [id number] [place] [address] 22558- 3011 19 Jun, 2016 Intractable vomiting with nausea, unspecified vomiting type R11.2 [facility] [address] [place] [address] 95186- 9261 13 Jun, 2016 Right upper quadrant pain R10.11 ; Migraine with aura and with status migrainosus, not intractable G43.101 and Intractable vomiting with nausea, unspecified vomiting type R11.2 [place] [id number] [place] [address] 51644- 8953 Jun, [place] [address] 35864- 2387 Jun, Gastroenteritis K52.9 [place] [id number] [place] [address] 27000- 0683 May, [place] [address] 11256- 3063 May, Hypertriglyceridemia E78.1 ; Essential hypertension I10 ; Type 2 diabetes mellitus with diabetic polyneuropathy E11.42 ; Moderate persistent asthma without complication J45.40 ; Type 2 diabetes mellitus with foot ulcer E11.621 ; Other chronic pain G89.29 ; Pain in right leg M79.604 ; Pain of left leg M79.605 ; Rash and nonspecific skin eruption R21 and Anxiety disorder, unspecified F41.[address] 97654- 1260 May, Essential hypertension I10 ; Hypertriglyceridemia E78.1 ; Upper respiratory infection J06.9 ; Subclinical hypothyroidism E03.9 and Type 2 diabetes mellitus with diabetic polyneuropathy E11.42 [place] [id number] [place] [address] 08867- 1304 Apr, Hypertriglyceridemia E78.1 ; Subclinical hypothyroidism E03.9 ; Essential hypertension I10 and Type 2 diabetes mellitus with diabetic polyneuropathy E11.42 [place] [id number] [place] [address] 41213- 1510 Mar, [place] [id number] [place] [address] 88832- 7930 Mar, Ulcer of right heel L97.419 [place] [id number] [place] [address] 83325- 8852 Mar, [place] [id number] [place] [address] 27346- 4453 Mar, [place] [id number] [place] [address] 12032- 9368 February, [place] [id number] [place] [address] 66498- 7284 February, Ulcer of right heel L97.419 and DM neuro manif type II E11.49 [place] [id number] [place] [address] 08123- 4759 Jan, [place] [id number] [place] [address] 66506- 3714 Jan, Ulcer of right heel L97.419 ; Type 2 diabetes mellitus with foot ulcer E11.621 and Non-pressure chronic ulcer of other part of left foot with unspecified severity L97.529 [place] [id number] [place] [address] 39070- 2278 Jan, [place] [id number] [place] [address] 85833- 1429 Jan, [place] [id number] [place] [address] 63308- 0010 Jan, Infection of toenail L03.039 [place] [id number] [place] [address] 55430- 4694 Jan, Blister of toe of left foot, initial encounter S90.425A and Type 2 diabetes mellitus with diabetic polyneuropathy E11.42 [place] [id number] [place] [address] 90521- 8904 Jan, [facility] [id number] [place] [address] 97951 -2825 Jan, Sore throat J02.9 and Strep pharyngitis J02.0 [place] [address] [place] [address] 00934- 9369 Dec, Type 2 diabetes mellitus with diabetic polyneuropathy E11.42 ; Upper respiratory infection J06.9 ; Cough R05 and Asthma exacerbation J45.901 [place] [address] [address]- 5465 Oct, [facility] [id number] [place] [address] 89793- 3659 Oct, [facility] [id number] [place] [address] 28286- 7598 Oct, [facility] [id number] [place] [address] 36006- 4333 Oct, [facility] [id number] [place] [address] 43481- 7240 Sep, [facility] [address] 92947- 4664 Aug, Anxiety disorder, unspecified F41.9 and Obesity E66.9 [place] [id number] [place] [address] 27993- 0945 Aug, Moderate persistent asthma without complication J45.40 [facility] [id number] [place] [address] 13029- 2628 Aug, Anxiety disorder, unspecified F41.9 [facility] [id number] [place] [address] 02017- 2582 Aug, Chronic migraine G43.709 ; Encounter for immunization Z23 ; Hypertriglyceridemia E78.1 ; Type 2 diabetes mellitus with diabetic polyneuropathy E11.42 ; Moderate persistent asthma without complication J45.40 and Morbid obesity E66.01 [facility] [id number] [place] [address] 70138- 2916 Jul, [facility] [id number] [place] [address] 66542- 3849 Jul, [facility] [id number] [place] [address] 18878- 0833 Jul, [facility] [id number] [place] [address] 37796- 4520 Jul, Subclinical hypothyroidism E03.9 [place] [address] [address]- 8906 25 Jun, 2015 Essential hypertension, benign 401.1 ; Diabetic ulcer of lower extremity 250.80 ; Asthma 493.90 ; Diabetes mellitus type II, uncontrolled 250.02 and Hyperlipidemia associated with type 2 diabetes mellitus 250.80 [facility] [id number] [place] [address] 10662- 8403 18 Jun, 2015 [facility] [id number] [place] [address] 82021- 2281 Jun, [facility] [id number] [place] [address] 98390- 1265 May, [facility] [id number] [place] [address] 66238- 9904 Apr, [facility] [id number] [place] [address] 30339- 4635 Apr, Viral upper respiratory infection 465.9 and Asthma 493.90 [facility] [id number] [place] [address] 95678- 3626 Mar, Abnormal ankle brachial index 796.4 [facility] [id number] [place] [address] 55531- 1776 February, [facility] [id number] [place] [address] 36217- 0035 February, Essential hypertension, benign 401.1 [facility] [id number] [place] [address] 83652- 7651 February, Diabetic peripheral neuropathy 250.60 ; Ulcer of heel and midfoot 707.14 and Decreased pedal pulses 785.9 [facility] [id number] [place] [address] 47229- 4909 February, [facility] [id number] [place] [address] 96570- 7364 February, [facility] [id number] [place] [address] 52449- 5000 14 Jan, 2015 [facility] [place] [facility] [address] [id number] [place] [address]- 4550 Jan, [facility] [place] [facility] [address] [id number] [place] [address]- 8717 Dec, [facility] [place] [facility] [address] [facility] [id number] [place] [address]- 8230 Dec, [facility] [place] [facility] [address] [id number] [place] [address]- 4156 Nov, [facility] [place] [facility] [address] [id number] [place] [address]- 9224 Nov, [facility] [place] [facility] [address] [facility] [id number] [place] [address]- 1867 24 Nov, 2014 [facility] [place] [facility] [address] [facility] [id number] [place] [address] Nov, [facility] [place] [facility] [address] [facility] [id number] [place] [address] Nov, [facility] [place] [facility] [address] [facility] [id number] [place] [address] Nov, [facility] [place] [facility] [address] [facility] [id number] [place] [address] Nov, [facility] [place] [facility] [address] [facility] [id number] [place] [address] Nov, [facility] [place] [facility] [address] [facility] [id number] [address] Nov, [facility] [place] [facility] [address] [facility] [id number] [place] [address] Oct, [facility] [place] [facility] [address] [facility] [id number] [place] [address] Oct, [facility] [place] [facility] [address] [facility] [id number] [place] [address] Oct, [facility] [place] [facility] [address] [id number] [place] [address] Oct, [facility] [place] [facility] [address] [id number] [place] [address] Oct, [facility] [place] [facility] [address] [id number] [place] [address] 2561 Oct, [facility] [place] [facility] [address] [id number] [place] [address] 8182 Oct, [facility] [place] [facility] [address] [id number] [place] [address]111 Oct, [facility] [place] [facility] [address] [id number] [place] [address] 1661 Oct, [facility] [place] [facility] [address] [id number] [place] [address] 9963 Oct, [facility] [place] [facility] [address] [id number] [place] [address] 48[address] Oct, [facility] [place] [facility] [address] [id number] [place] [address] 3724 Oct, [facility] [place] [facility] [address] [id number] [place] [address] Oct, [facility] [place] [facility] [address] [id number] [place] [address] 6[address] Sep, [facility] [place] [facility] [address] [id number] [place] [address]- 0963 Sep, [facility] [place] [facility] [address] [id number] [place] [address] 2163 Sep, [facility] [place] [facility] [address] [id number] [place] [address] 6464 Sep, [facility] [place] [facility] [address] [id number] [place] [address] 5572 Sep, [facility] [place] [facility] [address] [id number] [place] [address]- 7276 Sep, [facility] [place] [facility] [address] [id number] [place] [address]- 5837 Sep, [facility] [place] [facility] [address] [id number] [place] [address] Sep, [facility] [place] [facility] [address] [id number] [place] [address] 7303 Sep, [facility] [place] [facility] [address] [id number] [place] [address]- 0273 Sep, [facility] [place] [facility] [address] [id number] [place] [address]- 1296 Sep, [facility] [place] [facility] [address] [id number] [place] [address]- 7541 Sep, [facility] [place] [facility] [address] [id number] [place] [address]- 6451 Sep, [facility] [place] [facility] [address] [id number] [place] [address]- 7759 Sep, [facility] [place] [facility] [address] [id number] [place] [address]- 4381 Sep, [facility] [place] [facility] [address] [id number] [place] [address]- 4415 Sep, [facility] [place] [facility] [address] [id number] [place] [address]- 0745 Aug, [facility] [place] [facility] [address] [id number] [address]- 4682 Aug, [facility] [place] [facility] [address] [id number] [place] [address]- 8146 Aug, [facility] [place] [facility] [address] [id number] [place] [address]- 3239 Aug, [facility] [place] [facility] [address] [id number] [place] [address]- 4284 Aug, [facility] [place] [facility] [address] [id number] [place] [address]- 5531 Aug, [facility] [place] [facility] [address] [id number] [place] [address]- 4043 Aug, [facility] [place] [facility] [address] [id number] [place] [address]- 8027 Aug, [facility] [place] [facility] [address] [id number] [place] [address]- 9570 Jul, [facility] [place] [facility] [address] [id number] [place] [address]- 6100 Jul, [facility] [place] [facility] [address] [id number] [place] [address]- 7324 30 Jul, 2014 [facility] [place] [facility] [address] [id number] [place] [address]- 4949 Jul, [facility] [place] [facility] [address] [id number] [place] [address]- 5068 Jul, [facility] [place] [facility] [address] [id number] [place] [address]- 2070 Jun, [facility] [place] [facility] [address] [id number] [place] [address]- 0966 Jun, [facility] [place] [facility] [address] [id number] [place] [address]- 2943 Jun, [facility] [place] [facility] [address] [id number] [place] [address]- 6500 Jun, [facility] [place] [facility] [address] [id number] [place] [address]- 7535 Jun, [facility] [place] [facility] [address] [id number] [place] [address]- 0038 May, [facility] [place] [facility] [address] [id number] [place] [address]- 0260 May, [facility] [place] [facility] [address] [id number] [place] [address]- 9592 Apr, [facility] [place] [facility] [address] [id number] [place] [address]- 9192 Apr, [facility] [place] [facility] [address] [id number] [place] [address]- 9499 Apr, [facility] [place] [facility] [address] [id number] [place] [address]- 4236 Apr, [facility] [place] [facility] [address] [id number] [place] [address]- 0540 Apr, [facility] [place] [facility] [address] [id number] [place] [address]- 5905 Apr, [facility] [place] [facility] [address] [id number] [place] [address]- 3733 Mar, [facility] [place] [facility] [address] [id number] [place] [address]- 5021 Mar, [facility] [place] [facility] [address] [id number] [place] [address]- 0095 Mar, [facility] [place] [facility] [address] [id number] [place] [address]- 2171 Mar, [facility] [place] [facility] [address] [id number] [place] [address]- 0420 Mar, [facility] [place] [facility] [address] [id number] [place] [address]- 0459 Mar, [facility] [place] [facility] [address] [id number] [place] [address]- 1261 Mar, [facility] [place] [facility] [address] [id number] [place] [address]- 8197 Mar, [facility] [place] [facility] [address] [id number] [place] [address]- 4610 Mar, [facility] [place] [facility] [address] [id number] [place] [address]- 3790 Mar, [facility] [place] [facility] [address] [id number] [place] [address]- 4678 Mar, [facility] [place] [facility] [address] [id number] [place] [address]- 9149 Mar, [facility] [place] [facility] [address] [id number] [place] [address]- 9230 Mar, [facility] [place] [facility] [address] [id number] [place] [address]- 2400 Mar, [facility] [place] [facility] [address] [id number] [place] [address]- 8452 Mar, [facility] [place] [facility] [address] [id number] [place] [address]- 6196 Mar, [facility] [place] [facility] [address] [id number] [place] [address]- 0472 February, [facility] [place] [facility] [address] [id number] [place] [address]- 4685 February, [facility] [place] [facility] [address] [id number] [place] [address]- 4836 February, [facility] [place] [facility] [address] [id number] [place] [address]- 4674 February, [facility] [place] [facility] [address] [id number] [place] [address]- 0372 February, [facility] [place] [facility] [address] [id number] [place] [address]- 6623 February, [facility] [place] [facility] [address] [id number] [place] [address]- 0205 February, [facility] [place] [facility] [address] [id number] [place] [address]- 1279 February, [facility] [place] [facility] [address] [id number] [place] [address]- 8306 Jan, [facility] [place] [facility] [address] [id number] [place] [address]- 0424 Jan, [facility] [place] [facility] [address] [id number] [place] [address]- 5134 25 Dec, 2013 [facility] [place] [facility] [address] [id number] [place] [address]- 0514 Dec, [facility] [place] [facility] [address] [id number] [place] [address]- 5576 Dec, [facility] [place] [facility] [address] [id number] [place] [address]- 4681 Dec, [facility] [place] [facility] [address] [id number] [place] [address]- 2874 Dec, [facility] [place] [facility] [address] [id number] [place] [address]- 0986 Dec, [facility] [place] [facility] [address] [id number] [place] [address]- 5263 Dec, [facility] [place] [facility] [address] [id number] [place] [address]- 6915 Dec, [facility] [place] [facility] [address] [id number] [place] [address]- 1396 17 Dec, 2013 [facility] [place] [facility] [address] [id number] [place] [address]- 6474 17 Dec, 2013 [facility] [place] [facility] [address] [id number] [place] [address]- 0170 14 Dec, 2013 [facility] [place] [facility] [address] [id number] [place] [address]- 6265 14 Dec, 2013 [facility] [place] [facility] [address] [id number] [place] [address]- 4021 Dec, [facility] [place] [facility] [address] [id number] [place] [address]- 2210 Dec, [facility] [place] [facility] [address] [id number] [place] [address]- 0383 Nov, [facility] [place] [facility] [address] [id number] [place] [address]- 4927 Nov, [facility] [place] [facility] [address] [id number] [place] [address]- 0739 Oct, [facility] [place] [facility] [address] [id number] [place] [address]- 9659 Oct, [facility] [place] [facility] [address] [id number] [place] [address]- 3041 Oct, [facility] [place] [facility] [address] [id number] [place] [address]- 1370 Oct, [facility] [place] [facility] [address] [id number] [place] [address]- 9084 Oct, [facility] [place] [facility] [address] [id number] [place] [address]- 9360 Oct, [facility] [place] [facility] [address] [id number] [place] [address]- 3528 Oct, [facility] [place] [facility] [address] [id number] [place] [address]- 3191 Sep, [facility] [place] [facility] [address] [id number] [place] [address]- 9640 Sep, [facility] [place] [facility] [address] [id number] [place] [address]- 6095 Sep, [facility] [place] [facility] [address] [id number] [place] [address]- 1208 Sep, [facility] [place] [facility] [address] [id number] [place] [address]- 1346 Sep, [facility] [place] [facility] [address] [id number] [place] [address]- 6922 Sep, [facility] [place] [facility] [address] [id number] [place] [address]- 0139 Sep, [facility] [place] [facility] [address] [id number] [place] [address]- 1624 Sep, [facility] [place] [facility] [address] [id number] [place] [address]- 3977 24 Sep, 2013 [facility] [address] [id number] [place] [address]- 0694 24 Sep, 2013 [facility] [place] [facility] [address] [id number] [place] [address]- 4946 Sep, [facility] [address] [id number] [place] [address]- 6092 Sep, [facility] [place] [facility] [address] [id number] [place] [address]- 4184 Sep, [facility] [address] [id number] [place] [address]- 4579 Sep, [facility] [place] [facility] [address] [id number] [place] [address]- 8083 Sep, [facility] [address] [id number] [place] [address]- 8001 Sep, [facility] [place] [facility] [address] [id number] [place] [address]- 4259 Sep, [facility] [place] [facility] [address] [id number] [place] [address]- 8748 Sep, [facility] [place] [facility] [address] [facility] [id number] [place] [address]- 9991 Sep, [facility] [place] [facility] [address] [id number] [place] [address]- 3927 Aug, [facility] [place] [facility] [address] [id number] [place] [address]- 2543 Aug, [facility] [place] [facility] [address] [id number] [place] [address]- 0426 Aug, [facility] [place] [facility] [address] [id number] [place] [address]- 7731 Aug, [facility] [place] [facility] [address] [id number] [place] [address]37 Aug, [facility] [place] [facility] [address] [id number] [place] [address]- 0819 Aug, [facility] [place] [facility] [address] [id number] [place] [address]- 4359 Aug, [facility] [place] [facility] [address] [id number] [place] [address]- 3499 Aug, [facility] [place] [facility] [address] [id number] [place] [address]- 3788 Aug, [facility] [place] [facility] [address] [id number] [place] [address]- 1130 Aug, [facility] [place] [facility] [address] [id number] [place] [address]- 4983 Aug, [facility] [place] [facility] [address] [id number] [place] [address]- 6608 Aug, [facility] [place] [facility] [address] [id number] [place] [address]- 3696 Aug, [facility] [place] [facility] [address] [id number] [place] [address]- 6706 Aug, [facility] [place] [facility] [address] [id number] [place] [address]- 6748 Aug, [facility] [place] [facility] [address] [id number] [place] [address]- 8661 Aug, [facility] [place] [facility] [address] [id number] [place] [address]- 1109 Aug, [facility] [place] [facility] [address] [id number] [place] [address]- 1990 Jul, [facility] [place] [facility] [address] [id number] [place] [address]- 2697 Jul, [facility] [place] [facility] [address] [id number] [place] [address]- 9137 Jul, [facility] [place] [facility] [address] [id number] [place] [address]- 0698 30 Jul, 2013 [facility] [place] [facility] [address] [id number] [place] [address]- 8265 18 Jul, 2013 [facility] [place] [facility] [address] [id number] [place] [address]- 5656 18 Jul, 2013 [facility] [place] [facility] [address] [id number] [place] [address]- 5166 Jul, [facility] [place] [facility] [address] [id number] [place] [address]- 4251 27 Jun, 2012 [facility] [place] [facility] [address] [id number] [place] [address]- 9619 20 Jun, 2012 [facility] [place] [facility] [address] [id number] [place] [address]- 7258 17 Jun, 2012 [facility] [place] [facility] [address] [id number] [place] [address]- 1338 10 Jun, 2012 [facility] [place] [facility] [address] [id number] [place] [address]- 3975 06 Jun, 2012 [facility] [place] [facility] [address] [id number] [place] [address]- 2302 06 Jun, 2012 [facility] [place] [facility] [address] [id number] [place] [address]- 3782 05 Jun, 2012 [facility] [place] [facility] [address] [id number] [place] [address]- 5420 03 Jun, 2012 [facility] [place] [facility] [address] [id number] [place] [address]- 6779 27 May, 2013 [facility] [place] [facility] [address] [id number] [place] [address]- 3962 22 May, 2013 [facility] [place] [facility] [address] [id number] [place] [address]- 1235 15 May, 2013 [facility] [place] [facility] [address] [id number] [place] [address]- 5034 14 May, 2013 [facility] [place] [facility] [address] [facility] [id number] [place] [address]- 6679 May, [facility] [address] [facility] [id number] [place] [address]- 3867 May, [facility] [address] [facility] [id number] [place] [address]- 3353 May, [facility] [address] [facility] [id number] [place] [address]- 6123 May, IMMUNIZATIONS No Known Immunizations SOCIAL HISTORY Never Assessed REASON FOR VISIT Lab results PLAN OF CARE VITAL SIGNS MEDICATIONS Unknown Medications RESULTS Name Result Date Reference Range Ultrasound : Renal, COMPLETE 2017-08-12 PROCEDURES No Known procedures INSTRUCTIONS MEDICATIONS ADMINISTERED [...] History Left foot cellulitis, left 2nd toe amputation-[facility] 12/23 Hospitalization History Surgery Hospitalizations
[2018-08-22 09:29] LABS: ALBUMIN 3.4 GM/DL (3.2-4.5); BILIRUBIN,TOTAL 0.8 MG/DL (0.1-1.0); CALCIUM 9.1 MG/DL (8.5-10.1); CREATININE SERUM 1.77 MG/DL (0.60-1.30); TOTAL PROTEIN 7.8 GM/DL (6.4-8.2)
--- OUTSIDE RECORDS SUMMARY | 2018-08-22 09:29 | XMS REPORT ---
Author Author LUDIVINA STEPHANIE [facility] Address [address] [place] [address] Care Team Providers Care Waterfront Director Name Role Phone FARNAZ FLORENCEY Unavailable PROBLEMS Type Condition ICD9-CM Code [id number] Code Onset Dates Condition Status SNOMED Code Problem Subclinical hypothyroidism E03.9 Active 18706302 Problem Hypertriglyceridemia E78.1 Active 574616885 Problem Type 2 diabetes mellitus with diabetic polyneuropathy E11.42 Active 453617380 Problem Type 2 diabetes mellitus with diabetic chronic 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 Active 311799335 Problem Other chronic pain G89.29 Active 99290783 Problem Type 2 diabetes mellitus with other skin complications E11.628 Active 67097130 Problem Pain in left foot M79.672 Active 22072674 Problem Irregular menstrual cycle N92.6 Active 91348172 Problem Pain in right foot M79.671 Active 09218770 Problem Tonsillolith J35.8 Active 1386151 Problem Chronic prescription opiate use Z79.891 Active 632313649 Problem Seasonal allergic rhinitis due to pollen J30.1 Active 40695410 Problem Asthma exacerbation, mild J45.901 Active 771150846 Problem Chronic kidney disease, stage III (moderate) N18.3 Active 252087833 Problem Chronic migraine G43.709 Active 93098464 Problem Moderate persistent asthma without complication J45.40 Active 944143107 Problem Intrinsic eczema L20.84 Active 01618200 Problem Severe episode of recurrent major depressive disorder, without psychotic features F33.2 Active 55893381 Problem Non-pressure chronic ulcer of right heel and midfoot limited to breakdown of skin L97.411 Active 962357985 Problem Ulcer of right heel L97.419 Active 281812655 Problem Obesity E66.9 Active 879308561 Problem Type 2 diabetes mellitus with foot ulcer E11.621 Active 80811466 Problem Essential hypertension I10 Active 61827613 Problem Anxiety disorder, unspecified F41.9 Active 252897201 Problem Type 2 diabetes mellitus with other specified complication E11.69 Active 617992769 Problem Status post amputation of toe of left foot Z89.422 Active 468130343 Problem DM neuro manif type II E11.49 Active 50279269 Problem History of amputation of hallux Z89.419 Active 282544337 ALLERGIES No Information ENCOUNTERS Encounter Location Date Diagnosis [facility] [address] [address] 12 Mar, 2018 Moderate persistent asthma without complication J45.40 [facility] [address] [address]- [address] 07 Mar, 2018 Moderate persistent asthma without complication J45.40 [facility] [address] [address]- 2854 Mar, [facility] [address] [address]- [address]393 February, Chronic migraine G43.709 [facility] [address] 93083- 9897 February, Chronic migraine G43.709 [facility] [address] 9[address]17- 0455 February, [facility] [address] [address]56- 3024 February, [facility] [address] 8[address]- 1057 February, Type 2 diabetes mellitus with diabetic polyneuropathy E11.42 ; Moderate persistent asthma without complication J45.40 ; Type 2 diabetes mellitus with foot ulcer E11.621 ; Non-pressure chronic ulcer of right heel and midfoot limited to breakdown of skin L97.411 ; Chronic migraine G43.709 and BMI 60.0-69.9, adult Z68.44 [facility] [id number] [place] [address]01 -9653 Jan, 2018 Asthma exacerbation, mild J45.901 ; Seasonal allergic rhinitis due to pollen J30.1 and BMI 60.0-69.9, adult Z68.44 [facility] [id number] [place] [address] 20322- 5472 Jan, [place] [address] 9[address]- 4068 Jan, Other chronic pain G89.29 [facility] [id number] [place] [address] 60472- 2802 30 Dec, 2017 Type 2 diabetes mellitus with diabetic polyneuropathy E11.42 [facility] [id number] [place] [address] 60561- 4238 Dec, Type 2 diabetes mellitus with diabetic polyneuropathy E11.42 [place] [address] 38694- 3037 15 Dec, 2017 [place] [address] 93182- 9822 14 Dec, 2017 [place] [id number] [place] [address] 69945- 2980 13 Dec, 2017 Chronic kidney disease, stage III (moderate) N18.3 [facility] [id number] [place] [address] 02168 -5294 09 Dec, 2017 Nausea R11.0 and Diarrhea, unspecified type R19.7 [place] [id number] [place] [address] 77322- 1389 07 Dec, 2017 Chronic kidney disease, stage III (moderate) N18.3 and Type 2 diabetes mellitus with diabetic polyneuropathy E11.42 [facility] [id number] [place] [address] 75107- 2998 Dec, [place] [address] 94311- 6197 Nov, Ulcer of right heel L97.419 and Type 2 diabetes mellitus with diabetic polyneuropathy E11.42 [facility] [id number] [place] [address] [id number] Nov, Dental examination Z01.20 [facility] [address] [place] [address] 49559- 2074 Nov, Open wound of right foot, initial encounter S91.301A [facility] [id number] [place] [address] 46639 -3775 Nov, Open wound of right foot, initial encounter S91.301A ; Non- intractable vomiting with nausea, unspecified vomiting type R11.2 and BMI 60.0- 69.9, adult Z68.44 [facility] [id number] [place] [address] 15715- 7264 Nov, [place] [address] 41534- 2215 Nov, Other chronic pain G89.29 [place] [address] 73696- 9569 Oct, Cellulitis of right lower limb L03.115 [facility] [id number] [place] [address] 73562- 2515 Oct, [place] [address] 91958- 9582 Oct, [place] [id number] [place] [address] 21076- 2838 Oct, Cat scratch W55.03XA ; Cellulitis of right lower limb L03.115 ; Acute nasopharyngitis J00 ; BMI 60.0-69.9, adult Z68.44 and Cough R05 [place] [id number] [place] [address] 87450- 1509 Oct, Cat scratch W55.03XA ; Cutaneous abscess of right lower extremity L02.415 and Cellulitis of right lower limb L03.115 [place] [id number] [place] [address] 20055- 1956 Oct, Type 2 diabetes mellitus with diabetic polyneuropathy E11.42 [place] [address] [place] [address] 5789 Oct, Other chronic pain G89.29 [place] [id number] [place] [address] 56456- 8892 Aug, [place] [id number] [place] [address] 55006- 7543 Jul, Other chronic pain G89.29 [place] [address] 23651- 8327 Jul, [place] [address] 19546- 3519 Jul, Chronic kidney disease, stage III (moderate) N18.3 [place] [address] 09377- 7943 Jul, Type 2 diabetes mellitus with diabetic polyneuropathy E11.42 ; Essential hypertension I10 ; Irregular menstrual cycle N92.6 ; Hypertriglyceridemia E78.1 ; Anxiety disorder, unspecified F41.9 ; Severe episode of recurrent major depressive disorder, without psychotic features F33.2 ; Tonsillolith J35.8 ; Intrinsic eczema L20.84 ; Subclinical hypothyroidism E03.9 ; Viral pharyngitis J02.9 and Encounter for immunization Z23 [place] [id number] [place] [address] 85688- 3835 13 Jun, 2017 Essential hypertension I10 [place] [id number] [place] [address] 71008- 5442 08 Jun, 2017 [place] [id number] [place] [address] 21232- 4421 Jun, [place] [id number] [place] [address] 10147- 0022 May, Moderate persistent asthma without complication J45.40 [place] [id number] [place] [address] 70987- 7306 May, Pain in right foot M79.671 ; Pain in left foot M79.672 ; Other chronic pain G89.29 and Chronic prescription opiate use Z79.891 [facility] [id number] [place] [address] 22932- 6053 May, [facility] [id number] [place] [address] 20901- 8057 May, [facility] [id number] [place] [address] 78681- 2425 Apr, [facility] [id number] [place] [address] 83047- 2075 Apr, Chronic migraine G43.709 [facility] [address] 89395- 1583 Apr, Essential hypertension I10 ; Hypertriglyceridemia E78.1 and Chronic migraine G43.709 [facility] [id number] [place] [address] 92859- 2254 Apr, [facility] [id number] [place] [address] 58887- 6007 Apr, Sore throat J02.9 [facility] [id number] [place] [address] 98565- 3185 Apr, [facility] [id number] [place] [address] 68348- 1345 Mar, Strep pharyngitis J02.0 and Non-intractable vomiting with nausea, unspecified vomiting type R11.2 [facility] [id number] [place] [address] 23282- 4848 Mar, [facility] [id number] [place] [address] 08935- 0745 Mar, [facility] [id number] [place] [address] 71294- 3156 Mar, [facility] [id number] [place] [address] 42625- 9219 Mar, Type 2 diabetes mellitus with diabetic polyneuropathy E11.42 ; Moderate persistent asthma without complication J45.40 ; Status post amputation of toe of left foot Z89.422 ; Acute seasonal allergic rhinitis, unspecified trigger J30.2 and Left shoulder pain, unspecified chronicity M25.512 [place] [id number] [place] [address] 66514- 6728 Mar, [place] [id number] [place] [address] 67845- 8579 February, Pre-op evaluation Z01.818 ; Type 2 diabetes mellitus with diabetic polyneuropathy E11.42 and Type 2 diabetes mellitus with foot ulcer E11.621 [place] [id number] [place] [address] 33812- 5084 February, [place] [id number] [place] [address] 81800- 6552 February, [place] [id number] [place] [address] 47037- 8806 February, Toe infection L08.9 and Type 2 diabetes mellitus with other specified complication E11.69 [place] [id number] [place] [address] 13497- 7516 February, [place] [id number] [place] [address] 27334- 4826 Jan, Type 2 diabetes mellitus with diabetic polyneuropathy E11.42 [place] [id number] [place] [address] 69028- 6199 Jan, [place] [id number] [place] [address] 33856- 0427 Jan, Right upper quadrant pain R10.11 and Intractable vomiting with nausea, unspecified vomiting type R11.2 [place] [id number] [place] [address] 28345- 9892 Jan, Hypertriglyceridemia E78.1 and Essential hypertension I10 [place] [id number] [place] [address] 26946- 6210 Jan, Essential hypertension I10 ; Type 2 diabetes mellitus with diabetic polyneuropathy E11.42 and Hypertriglyceridemia E78.1 [facility] [id number] [place] [address] 35727- 0748 16 Dec, 2016 Type 2 diabetes mellitus with diabetic polyneuropathy E11.42 [facility] [id number] [place] [address] 87831- 3156 15 Dec, 2016 Hypertriglyceridemia E78.1 ; Essential hypertension I10 ; Type 2 diabetes mellitus with diabetic polyneuropathy E11.42 ; Anxiety disorder , unspecified F41.9 and Moderate persistent asthma without complication J45.40 [facility] [id number] [place] [address] 09148- 9386 Dec, Type 2 diabetes mellitus with diabetic polyneuropathy E11.42 [facility] [id number] [place] [address] [id number] Dec, [facility] [address] 41493- 9815 Nov, [facility] [id number] [place] [address] 06370- 1432 Nov, [facility] [id number] [place] [address] 29350- 5353 Nov, [facility] [id number] [place] [address] 21372- 2890 Nov, Toe infection L08.9 [facility] [id number] [place] [address] 33569- 4975 Nov, [facility] [id number] [place] [address] 35326- 1651 Oct, History of amputation of hallux Z89.419 [facility] [id number] [place] [address] 35293- 8764 Oct, Type 2 diabetes mellitus with diabetic polyneuropathy E11.42 [facility] [id number] [place] [address] 63099- 1289 Oct, Type 2 diabetes mellitus with diabetic polyneuropathy E11.42 [facility] [address] [address]- 4553 Oct, Acute osteomyelitis of left foot M86.172 ; Pre-op exam Z01.818 and Type 2 diabetes mellitus with diabetic polyneuropathy E11.42 [facility] [address] [address]- 7280 Oct, Foot ulcer, left, with unspecified severity L97.529 ; Acute osteomyelitis of left foot M86.172 and Type 2 diabetes mellitus with diabetic polyneuropathy E11.42 [facility] [id number] [place] [address] 85917- 2894 Sep, [facility] [id number] [place] [address] 19644- 2715 Sep, Intractable vomiting with nausea, unspecified vomiting type R11.2 and Right upper quadrant pain R10.11 [facility] [id number] [place] [address] 39990- 2576 Aug, [facility] [id number] [place] [address] 83304- 9478 Jul, [facility] [id number] [place] [address] 20453- 7525 Jul, Preop examination Z01.818 [facility] [address] [place] [address] 31508- 9245 Jul, [facility] [address] [address]- 8463 Jul, [facility] [id number] [place] [address] 84822- 2958 Jul, Chronic osteomyelitis of left foot M86.672 and Ulcer of left foot, with unspecified severity L97.529 [facility] [address] [address]- 9576 Jul, Non-pressure chronic ulcer of other part of left foot with unspecified severity L97.529 [facility] [address] [address]- 1141 Jul, [facility] [id number] [place] [address] 13148- 8650 Jul, [facility] [id number] [place] [address] 45893- 8778 Jun, [facility] [id number] [place] [address] 49099- 3846 Jun, [facility] [id number] [place] [address] 11933- 7254 Jun, [facility] [id number] [place] [address] 22819- 2160 21 Jun, 2016 Right upper quadrant pain R10.11 [facility] [id number] [place] [address] 69562- 5308 20 Jun, 2016 [facility] [id number] [place] [address] 04154- 2237 19 Jun, 2016 Intractable vomiting with nausea, unspecified vomiting type R11.2 [facility] [id number] [place] [address] 08045- 6918 13 Jun, 2016 Right upper quadrant pain R10.11 ; Migraine with aura and with status migrainosus, not intractable G43.101 and Intractable vomiting with nausea, unspecified vomiting type R11.2 [facility] [address] [place] [address] 01432- 1915 12 Jun, 2016 [facility] [id number] [place] [address] 94490- 9373 Jun, Gastroenteritis K52.9 [facility] [id number] [place] [address] 07342- 1375 May, [facility] [id number] [place] [address] 77571- 8186 May, Hypertriglyceridemia E78.1 ; Essential hypertension I10 ; Type 2 diabetes mellitus with diabetic polyneuropathy E11.42 ; Moderate persistent asthma without complication J45.40 ; Type 2 diabetes mellitus with foot ulcer E11.621 ; Other chronic pain G89.29 ; Pain in right leg M79.604 ; Pain of left leg M79.605 ; Rash and nonspecific skin eruption R21 and Anxiety disorder, unspecified F41.9 [place] [address] 64631- 5093 May, Essential hypertension I10 ; Hypertriglyceridemia E78.1 ; Upper respiratory infection J06.9 ; Subclinical hypothyroidism E03.9 and Type 2 diabetes mellitus with diabetic polyneuropathy E11.42 [place] [address] 00321- 1150 Apr, Hypertriglyceridemia E78.1 ; Subclinical hypothyroidism E03.9 ; Essential hypertension I10 and Type 2 diabetes mellitus with diabetic polyneuropathy E11.42 [place] [address] 49397- 6357 Mar, [place] [address] 72314- 2764 Mar, Ulcer of right heel L97.419 [place] [id number] [place] [address] 78054- 9095 Mar, [place] [id number] [place] [address] 23396- 1294 Mar, [place] [id number] [place] [address] 93173- 0017 February, [place] [address] 06907- 2371 February, Ulcer of right heel L97.419 and DM neuro manif type II E11.49 [place] [id number] [place] [address] 18693- 4027 Jan, [place] [address] 57973- 8845 Jan, Ulcer of right heel L97.419 ; Type 2 diabetes mellitus with foot ulcer E11.621 and Non-pressure chronic ulcer of other part of left foot with unspecified severity L97.529 [facility] [id number] [place] [address] 92032- 3484 Jan, [facility] [id number] [place] [address] 26873- 3812 Jan, [place] [id number] [place] [address] 75594- 5606 Jan, Infection of toenail L03.039 [place] [address] 96915- 0557 Jan, Blister of toe of left foot, initial encounter S90.425A and Type 2 diabetes mellitus with diabetic polyneuropathy E11.42 [place] [id number] [place] [address] 58885- 1142 Jan, [facility] [id number] [place] [address] 00717 -6554 Jan, Sore throat J02.9 and Strep pharyngitis J02.0 [place] [id number] [place] [address] 83431- 3052 Dec, Type 2 diabetes mellitus with diabetic polyneuropathy E11.42 ; Upper respiratory infection J06.9 ; Cough R05 and Asthma exacerbation J45.901 [place] [id number] [place] [address] 66098- 5321 Oct, [place] [id number] [place] [address] 37323- 7261 Oct, [facility] [id number] [place] [address] 88504- 4162 Oct, [facility] [id number] [place] [address] 90437- 6365 Oct, [facility] [id number] [place] [address] 61560- 0099 Sep, [place] [address] [place] [address] 43275- 7924 Aug, Anxiety disorder, unspecified F41.9 and Obesity E66.9 [place] [id number] [place] [address] 84861- 3401 Aug, Moderate persistent asthma without complication J45.[address] 51433- 8043 Aug, Anxiety disorder, unspecified F41.9 [place] [id number] [place] [address] 33199- 4968 Aug, Chronic migraine G43.709 ; Encounter for immunization Z23 ; Hypertriglyceridemia E78.1 ; Type 2 diabetes mellitus with diabetic polyneuropathy E11.42 ; Moderate persistent asthma without complication J45.40 and Morbid obesity E66.01 [place] [id number] [place] [address] 03377- 0055 Jul, [place] [id number] [place] [address] 07666- 8501 Jul, [place] [id number] [place] [address] 26613- 2257 Jul, [place] [id number] [place] [address] 05960- 9848 Jul, Subclinical hypothyroidism E03.9 [place] [id number] [place] [address] 06924- 0723 Jun, Essential hypertension, benign 401.1 ; Diabetic ulcer of lower extremity 250.80 ; Asthma 493.90 ; Diabetes mellitus type II, uncontrolled 250.02 and Hyperlipidemia associated with type 2 diabetes mellitus 250.80 [place] [id number] [place] [address] 98818- 2233 Jun, [place] [id number] [place] [address] 03003- 1406 Jun, [address] [address]- 7530 May, [facility] [id number] [place] [address] 21627- 6345 Apr, [facility] [id number] [place] [address] 79792- 9249 Apr, Viral upper respiratory infection 465.9 and Asthma 493.90 [facility] [id number] [place] [address] [id number]- 8008 Mar, Abnormal ankle brachial index 796.4 [facility] [id number] [address] 81432- 2463 February, [facility] [id number] [place] [address] 38962- 6655 February, Essential hypertension, benign 401.1 [facility] [id number] [place] [address] 16606- 2755 February, Diabetic peripheral neuropathy 250.60 ; Ulcer of heel and midfoot 707.14 and Decreased pedal pulses 785.9 [facility] [id number] [place] [address] 56385- 7584 February, [facility] [id number] [place] [address] 42366- 6907 February, [facility] [id number] [place] [address] [id number]- 2892 Jan, [facility] [id number] [place] [address] 70584- 7466 Jan, [facility] [id number] [place] [address] 12708- 3021 Dec, [facility] [id number] [place] [address] 21716- 2647 Dec, [facility] [id number] [address] Nov, [facility] [place] [facility] [address] [id number] [id number]- 4918 Nov, 2014 [facility] [place] [facility] [address] [id number] [place] [address] Nov, 2014 [facility] [place] [facility] [address] [id number] [place] [address]226 Nov, 2014 [facility] [place] [facility] [address] [id number] [place] [address] 2546 Nov, 2014 [facility] [place] [facility] [address] [id number] [place] [address] 9272 Nov, 2014 [facility] [place] [facility] [address] [id number] [place] [address] 6[address] Nov, 2014 [facility] [place] [facility] [address] [id number] [place] [address] Nov, [facility] [place] [facility] [address] [id number] [place] [address] 6412 Nov, [facility] [place] [facility] [address] [id number] [place] [address] 1173 Oct, [facility] [place] [facility] [address] [id number] [place] [address] 1617 Oct, [facility] [place] [facility] [address] [id number] [place] [address] 2541 Oct, [facility] [place] [facility] [address] [id number] [place] [address]- 2543 Oct, [facility] [place] [facility] [address] [id number] [place] [address] 2542 Oct, [facility] [place] [facility] [address] [id number] [place] [address]- 2543 Oct, [facility] [place] [facility] [address] [id number] [place] [address] 5554 Oct, [facility] [place] [facility] [address] [id number] [place] [address]- 9918 Oct, [facility] [address] [id number] [place] [address]- 6828 Oct, [facility] [place] [facility] [address] [id number] [place] [address]- 7449 Oct, [facility] [place] [facility] [address] [id number] [place] [address]- 1026 Oct, [facility] [place] [facility] [address] [id number] [place] [address]- 0966 Oct, [facility] [place] [facility] [address] [id number] [place] [address]- 1589 Oct, [facility] [place] [facility] [address] [id number] [place] [address]- 0980 Sep, [facility] [place] [facility] [address] [id number] [place] [address]- 5046 Sep, [facility] [place] [facility] [address] [id number] [place] [address]- 1322 Sep, [facility] [place] [facility] [address] [id number] [place] [address]- 0478 Sep, [facility] [place] [facility] [address] [id number] [place] [address]- 5349 Sep, [facility] [place] [facility] [address] [id number] [place] [address]- 3585 Sep, [facility] [place] [facility] [address] [id number] [place] [address]- 0232 Sep, [facility] [place] [facility] [address] [id number] [place] [address]- 6896 Sep, [facility] [place] [facility] [address] [id number] [place] [address]- 9164 Sep, [facility] [place] [facility] [address] [id number] [place] [address]- 1502 Sep, [facility] [place] [facility] [address] [id number] [place] Sep, [facility] [place] [facility] [address] [id number] [place] Sep, [facility] [place] [facility] [address] [id number] [place] [address]- 9421 Sep, [facility] [place] [facility] [address] [id number] [place] Sep, [facility] [place] [facility] [address] [id number] [place] [address]- 6365 Sep, [facility] [place] [facility] [address] [id number] [place] [address]- 4466 Sep, [facility] [place] [facility] [address] [id number] [place] [address]- 2243 Aug, [facility] [place] [facility] [address] [id number] [place] [address]- 4184 Aug, [facility] [place] [facility] [address] [id number] [place] [address]- 6021 Aug, [facility] [place] [facility] [address] [id number] [place] [address]- 9608 Aug, [facility] [place] [facility] [address] [id number] [place] [address]- 5131 Aug, [facility] [place] [facility] [address] [id number] [place] [address]- 3563 Aug, [facility] [place] [facility] [address] [id number] [place] [address]- 7988 Aug, [facility] [place] [facility] [address] [id number] [place] [address]- 1462 Aug, [facility] [place] [facility] [address] [id number] [place] [address]- 1712 Jul, [facility] [place] [facility] [address] [id number] [place] [address]- 6451 Jul, [facility] [place] [facility] [address] [id number] [place] [address]- 5997 30 Jul, 2014 [facility] [place] [facility] [address] [id number] [place] [address]- 3379 Jul, [facility] [place] [facility] [address] [id number] [place] [address]- 0267 Jul, [facility] [place] [facility] [address] [id number] [place] [address]- 5335 Jun, [facility] [place] [facility] [address] [id number] [place] [address]- 4948 Jun, [facility] [place] [facility] [address] [id number] [place] [address]- 2744 Jun, [facility] [place] [facility] [address] [id number] [place] [address]- 8677 Jun, [facility] [place] [facility] [address] [id number] [place] [address]- 7284 Jun, [facility] [place] [facility] [address] [id number] [place] [address]- 6211 May, [facility] [place] [facility] [address] [id number] [place] [address]- 2690 May, [facility] [place] [facility] [address] [id number] [place] [address]- 1161 Apr, [facility] [place] [facility] [address] [id number] [place] [address]- 8606 Apr, [facility] [place] [facility] [address] [id number] [place] [address]- 2510 Apr, [facility] [place] [facility] [address] [id number] [place] [address]- 2554 Apr, [facility] [place] [facility] [address] [id number] [place] [address] Apr, [facility] [place] [facility] [address] [id number] [place] [address]- 0754 Apr, [facility] [place] [facility] [address] [id number] [place] [address]- 1489 Mar, [facility] [place] [facility] [address] [id number] [place] [address]- 1201 Mar, [facility] [place] [facility] [address] [id number] [place] [address]- 8176 Mar, [facility] [place] [facility] [address] [id number] [place] [address]- 7253 Mar, [facility] [place] [facility] [address] [id number] [place] [address]- 9956 Mar, [facility] [place] [facility] [address] [id number] [place] [address]- 6005 Mar, [facility] [place] [facility] [address] [id number] [place] [address]- 4929 Mar, [facility] [place] [facility] [address] [id number] [place] [address]- 6790 Mar, [facility] [place] [facility] [address] [id number] [place] [address]- 5545 Mar, [facility] [place] [facility] [address] [id number] [place] [address]- 3249 Mar, [facility] [place] [facility] [address] [id number] [place] [address]- 2521 Mar, [facility] [place] [facility] [address] [id number] [place] [address]- 7069 Mar, [facility] [place] [facility] [address] [id number] [place] [address]- 8101 Mar, [facility] [place] [facility] [address] [id number] [place] [address]- 6190 Mar, [facility] [place] [facility] [address] [id number] [place] [address]- 0101 Mar, [facility] [place] [facility] [address] [id number] [place] [address]- 2453 Mar, [facility] [place] [facility] [address] [id number] [place] [address]- 0726 February, [facility] [place] [facility] [address] [id number] [place] [address]- 8048 February, [facility] [place] [facility] [address] [id number] [place] [address]- 3565 February, [facility] [place] [facility] [address] [id number] [place] [address]- 5564 February, [facility] [place] [facility] [address] [id number] [place] [address]- 5717 February, [facility] [place] [facility] [address] [id number] [place] [address]- 2064 February, [facility] [place] [facility] [address] [id number] [place] [address]- 1082 February, [facility] [place] [facility] [address] [id number] [place] [address]- 7877 February, [facility] [place] [facility] [address] [id number] [place] [address]- 2158 Jan, [facility] [place] [facility] [address] [id number] [place] [address]- 8656 Jan, [facility] [place] [facility] [address] [id number] [place] [address]- 4459 Dec, [facility] [place] [facility] [address] [id number] [place] [address]- 7780 Dec, [facility] [place] [facility] [address] [id number] [place] [address]- 4771 Dec, [facility] [place] [facility] [address] [id number] [place] [address]- 3327 Dec, [facility] [place] [facility] [address] [id number] [place] [address]- 7730 24 Dec, 2013 [facility] [place] [facility] [address] [id number] [place] [address]- 0567 24 Dec, 2013 [facility] [place] [facility] [address] [id number] [place] [address]- 9491 Dec, [facility] [place] [facility] [address] [id number] [place] [address]- 8833 Dec, [facility] [place] [facility] [address] [id number] [place] [address]- 2196 17 Dec, 2013 [facility] [place] [facility] [address] [id number] [place] [address]- 1763 17 Dec, 2013 [facility] [place] [facility] [address] [id number] [place] [address]- 4765 Dec, [facility] [place] [facility] [address] [id number] [place] [address]- 3389 Dec, [facility] [place] [facility] [address] [id number] [place] [address]- 1547 Dec, [facility] [place] [facility] [address] [id number] [place] [address]- 7595 Dec, [facility] [place] [facility] [address] [id number] [place] [address]- 1089 Nov, [facility] [place] [facility] [address] [id number] [place] [address]- 5117 Nov, [facility] [place] [facility] [address] [id number] [place] [address]- 3466 Oct, [facility] [place] [facility] [address] [id number] [place] [address]- 4454 Oct, [facility] [place] [facility] [address] [id number] [place] [address]- 3062 Oct, [facility] [place] [facility] [address] [id number] [place] [address]- 6878 Oct, [facility] [place] [facility] [address] [id number] [place] [address]- 0095 16 Oct, 2013 [facility] [place] [facility] [address] [id number] [place] [address]- 3411 Oct, [facility] [place] [facility] [address] [id number] [place] [address]- 1356 Oct, [facility] [place] [facility] [address] [id number] [place] [address]- 4073 31 Sep, 2013 [facility] [place] [facility] [address] [id number] [place] [address]- 1281 30 Sep, 2013 [facility] [place] [facility] [address] [id number] [place] [address]- 5956 30 Sep, 2013 [facility] [place] [facility] [address] [id number] [place] [address]- 3331 Sep, [facility] [place] [facility] [address] [id number] [place] [address]- 9501 Sep, [facility] [place] [facility] [address] [id number] [place] [address]- 7585 Sep, [facility] [place] [facility] [address] [id number] [place] [address]- 6109 Sep, [facility] [place] [facility] [address] [id number] [place] [address]- 9100 Sep, [facility] [place] [facility] [address] [id number] [place] [address]- 6544 Sep, [facility] [place] [facility] [address] [id number] [place] [address] 2540 Sep, [facility] [place] [facility] [address] [id number] [place] [address]- 5606 Sep, [facility] [place] [facility] [address] [id number] [place] [address]- 6456 Sep, [facility] [place] [facility] [address] [id number] [place] [address]- 8196 Sep, [facility] [place] [facility] [address] [id number] [place] [address]- 6604 16 Sep, 2013 [facility] [place] [facility] [address] [id number] [place] [address]- 4331 Sep, [facility] [place] [facility] [address] [id number] [place] [address]- 8204 Sep, [facility] [place] [facility] [address] [id number] [place] [address]- 3577 Sep, [facility] [place] [facility] [address] [id number] [place] [address]- 0775 Sep, [facility] [place] [facility] [address] [id number] [place] [address]- 5411 Sep, [facility] [place] [facility] [address] [id number] [place] [address]- 8824 Aug, [facility] [place] [facility] [address] [id number] [place] [address]- 7988 Aug, [facility] [place] [facility] [address] [id number] [place] [address]- 6608 Aug, [facility] [place] [facility] [address] [id number] [place] [address]- 3569 Aug, [facility] [place] [facility] [address] [id number] [address]- 6851 Aug, [facility] [place] [facility] [address] [id number] [place] [address]- 8692 Aug, [facility] [place] [facility] [address] [id number] [place] [address]- 2738 Aug, [facility] [place] [facility] [address] [id number] [place] [address]- 0255 Aug, [facility] [place] [facility] [address] [id number] [place] [address]- 6433 Aug, [facility] [place] [facility] [address] [id number] [place] [address]- 3661 Aug, [facility] [place] [facility] [address] [id number] [place] [address]- 3073 Aug, [facility] [place] [facility] [address] [id number] [place] [address]- 9676 Aug, [facility] [place] [facility] [address] [id number] [place] [address]- 0220 Aug, [facility] [place] [facility] [address] [id number] [place] [address]- 0723 Aug, [facility] [place] [facility] [address] [id number] [place] [address]- 8939 Aug, [facility] [place] [facility] [address] [id number] [place] [address]- 7029 Aug, [facility] [place] [facility] [address] [facility] [id number] [place] [address]- 7581 Aug, [facility] [place] [facility] [address] [id number] [place] [address]- 3367 Jul, [facility] [place] [facility] [address] [id number] [place] [address]- 3275 Jul, [facility] [place] [facility] [address] [facility] [id number] [place] [address]- 0025 Jul, [facility] [place] [facility] [address] [id number] [place] [address]- 2378 Jul, [facility] [place] [facility] [address] [id number] [place] [address]- 5964 Jul, [facility] [place] [facility] [address] [id number] [place] [address]- 9691 Jul, [facility] [place] [facility] [address] [facility] [id number] [place] [address] Jul, [facility] [place] [facility] [address] [id number] [address] Jun, [facility] [address] [id number] [place] [address]- 9989 20 Jun, 2012 [facility] [address] [id number] [place] [address]- 6240 17 Jun, 2012 [facility] [address] [id number] [place] [address]- 5002 10 Jun, 2012 [facility] [address] [id number] [place] [address]- 6413 06 Jun, 2012 [facility] [address] [id number] [place] [address]- 6158 06 Jun, 2012 [facility] [address] [id number] [place] [address]- 2356 05 Jun, 2012 [facility] [address] [facility] [id number] [place] [address]- 9914 03 Jun, 2012 [facility] [address] [facility] [id number] [place] [address] 7959 27 May, 2013 [facility] [address] [facility] [id number] [place] [address]- 7113 May, [facility] [address] [facility] [id number] [place] [address]- 4327 15 May, 2013 [facility] [address] [facility] [id number] [place] [address]- 9120 14 May, 2013 [facility] [address] [facility] [id number] [place] [address]- 6794 May, [facility] [address] [facility] [id number] [place] [address]- 7072 May, [facility] [address] [facility] [id number] [place] [address]- 3770 09 May, 2013 [facility] [address] [facility] [id number] [place] [address]- 1312 May, IMMUNIZATIONS No Known Immunizations SOCIAL HISTORY Never Assessed REASON FOR VISIT triage--tcuppettRN PLAN OF CARE VITAL SIGNS MEDICATIONS Medication Instructions Dosage Frequency Start Date End Date Duration Status Bactrim DS 800-160 MG Orally Twice a day 1 tablet 12h Oct, 10 day(s) Active RESULTS No Results PROCEDURES No Known procedures INSTRUCTIONS MEDICATIONS ADMINISTERED No Known Medications MEDICAL (GENERAL) HISTORY Type Description Date Medical History type I diabetes Medical History hypertension Medical History hyperlipidemia Medical History asthma Medical History migraine headaches Medical History allergic rhinitis Medical History neuropathy Medical History Chronic osteomyelitis, site unspecified Medical History 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 [facility] History [facility] Surgical History bladder surgery-stretch [facility] 2003 Surgical History exploratory laparoscopy [facility] 1995 Surgical History amputation, toe (R great) Surgical History amputation, (R forefoot) 2014 Surgical History amputation, toe Left second 12/2016 Surgical History amputation, 4th left toe 02/2017 Hospitalization History Left foot cellulitis, left 2nd toe amputation-[facility] 12/23 Hospitalization History Surgery Hospitalizations
--- OUTSIDE RECORDS SUMMARY | 2018-08-22 09:30 | XMS REPORT ---
Author Author LUDIVINA STEPHANIE [facility] Address [address] [place] [address] Care Team Providers Care [place] Worker Name Role Phone FARNAZ FLORENCEY Unavailable PROBLEMS Type Condition ICD9-CM Code DML99-KT Code Onset Dates Condition Status SNOMED Code Problem Subclinical hypothyroidism E03.9 Active 39909648 Problem Hypertriglyceridemia E78.1 Active 054628841 Problem Type 2 diabetes mellitus with diabetic polyneuropathy E11.42 Active 299451488 Problem Type 2 diabetes mellitus with diabetic chronic 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 Active 462785365 Problem Other chronic pain G89.29 Active 29970616 Problem Type 2 diabetes mellitus with other skin complications E11.628 Active 45903021 Problem Pain in left foot M79.672 Active 13201511 Problem Irregular menstrual cycle N92.6 Active 19675038 Problem Pain in right foot M79.671 Active 40114213 Problem Tonsillolith J35.8 Active 1369517 Problem Chronic prescription opiate use Z79.891 Active 691237936 Problem Seasonal allergic rhinitis due to pollen J30.1 Active 48249098 Problem Asthma exacerbation, mild J45.901 Active 100264812 Problem Chronic kidney disease, stage III (moderate) N18.3 Active 855325704 Problem Chronic migraine G43.709 Active 71737236 Problem Moderate persistent asthma without complication J45.40 Active 978097075 Problem Intrinsic eczema L20.84 Active 96160471 Problem Severe episode of recurrent major depressive disorder, without psychotic features F33.2 Active 09436712 Problem Non-pressure chronic ulcer of right heel and midfoot limited to breakdown of skin L97.411 Active 918653647 Problem Ulcer of right heel L97.419 Active 774896311 Problem Obesity E66.9 Active 855697321 Problem Type 2 diabetes mellitus with foot ulcer E11.621 Active 46467656 Problem Essential hypertension I10 Active 83519808 Problem Anxiety disorder, unspecified F41.9 Active 235168501 Problem Type 2 diabetes mellitus with other specified complication E11.69 Active 397831743 Problem Status post amputation of toe of left foot Z89.422 Active 679481494 Problem DM neuro manif type II E11.49 Active 25234749 Problem History of amputation of hallux Z89.419 Active 228751147 ALLERGIES No Information ENCOUNTERS Encounter Location Date Diagnosis [facility] [address] [address]- [address]89 12 Mar, 2018 Moderate persistent asthma without complication J45.40 [facility] [address] 97538- 8928 07 Mar, 2018 Moderate persistent asthma without complication J45.40 [facility] [address] 47963- 1148 Mar, [facility] [address] 79366- 8082 February, Chronic migraine G43.709 [facility] [address] 92065- 3770 February, Chronic migraine G43.709 [facility] [address] 97910- 0111 February, [facility] [address] 94311- 9981 February, [facility] [address] 03420- 3029 February, Type 2 diabetes mellitus with diabetic polyneuropathy E11.42 ; Moderate persistent asthma without complication J45.40 ; Type 2 diabetes mellitus with foot ulcer E11.621 ; Non-pressure chronic ulcer of right heel and midfoot limited to breakdown of skin L97.411 ; Chronic migraine G43.709 and BMI 60.0-69.9, adult Z68.44 [facility] [id number] [place] [address] 60465 -4409 Jan, 2018 Asthma exacerbation, mild J45.901 ; Seasonal allergic rhinitis due to pollen J30.1 and BMI 60.0-69.9, adult Z68.44 [facility] [id number] [place] [address] 49691- 9844 Jan, [place] [address] 71734- 9166 Jan, Other chronic pain G89.29 [facility] [id number] [place] [address] 44931- 6937 30 Dec, 2017 Type 2 diabetes mellitus with diabetic polyneuropathy E11.42 [facility] [id number] [place] [address] 07769- 5321 Dec, Type 2 diabetes mellitus with diabetic polyneuropathy E11.42 [place] [address] 23389- 8591 15 Dec, 2017 [place] [address] 89127- 8249 14 Dec, 2017 [place] [id number] [place] [address] 22783- 6665 13 Dec, 2017 Chronic kidney disease, stage III (moderate) N18.3 [facility] [id number] [place] [address] 50334 -7084 09 Dec, 2017 Nausea R11.0 and Diarrhea, unspecified type R19.7 [place] [id number] [place] [address] 12263- 6449 07 Dec, 2017 Chronic kidney disease, stage III (moderate) N18.3 and Type 2 diabetes mellitus with diabetic polyneuropathy E11.42 [facility] [id number] [place] [address] 81728- 5896 Dec, [place] [address] 16670- 8822 Nov, Ulcer of right heel L97.419 and Type 2 diabetes mellitus with diabetic polyneuropathy E11.42 [facility] [address] [place] [address] [id number] Nov, Dental examination Z01.20 [facility] [address] [place] [address] 55307- 4734 Nov, Open wound of right foot, initial encounter S91.301A [facility] [id number] [place] [address] 69890 -3951 Nov, Open wound of right foot, initial encounter S91.301A ; Non- intractable vomiting with nausea, unspecified vomiting type R11.2 and BMI 60.0- 69.9, adult Z68.44 [facility] [id number] [place] [address] 47075- 6707 Nov, [place] [address] 92398- 4016 Nov, Other chronic pain G89.29 [place] [address] 92290- 8096 Oct, Cellulitis of right lower limb L03.115 [facility] [id number] [place] [address] 09577- 7569 Oct, [place] [address] 87139- 2024 Oct, [place] [id number] [place] [address] 44397- 7315 Oct, Cat scratch W55.03XA ; Cellulitis of right lower limb L03.115 ; Acute nasopharyngitis J00 ; BMI 60.0-69.9, adult Z68.44 and Cough R05 [place] [id number] [place] [address] 85468- 8946 Oct, Cat scratch W55.03XA ; Cutaneous abscess of right lower extremity L02.415 and Cellulitis of right lower limb L03.115 [place] [id number] [place] [address] 13229- 6349 Oct, Type 2 diabetes mellitus with diabetic polyneuropathy E11.42 [place] [address] [place] [address]- 8601 Oct, Other chronic pain G89.29 [place] [id number] [place] [address] 13161- 0734 Aug, [place] [id number] [place] [address] 01701- 1123 Jul, Other chronic pain G89.29 [place] [address] 79269- 4024 Jul, [place] [address] 02740- 5573 Jul, Chronic kidney disease, stage III (moderate) N18.3 [place] [address] 61582- 9612 Jul, Type 2 diabetes mellitus with diabetic polyneuropathy E11.42 ; Essential hypertension I10 ; Irregular menstrual cycle N92.6 ; Hypertriglyceridemia E78.1 ; Anxiety disorder, unspecified F41.9 ; Severe episode of recurrent major depressive disorder, without psychotic features F33.2 ; Tonsillolith J35.8 ; Intrinsic eczema L20.84 ; Subclinical hypothyroidism E03.9 ; Viral pharyngitis J02.9 and Encounter for immunization Z23 [place] [id number] [place] [address] 36746- 3224 13 Jun, 2017 Essential hypertension I10 [place] [id number] [place] [address] 47225- 7708 08 Jun, 2017 [place] [id number] [place] [address] 69165- 0592 Jun, [place] [id number] [place] [address] 95339- 9882 May, Moderate persistent asthma without complication J45.40 [place] [id number] [place] [address] 12243- 8835 May, Pain in right foot M79.671 ; Pain in left foot M79.672 ; Other chronic pain G89.29 and Chronic prescription opiate use Z79.891 [facility] [id number] [place] [address] 85898- 3733 May, [facility] [id number] [place] [address] 12816- 9481 May, [facility] [id number] [place] [address] 66252- 9198 Apr, [facility] [id number] [place] [address] 75926- 9936 Apr, Chronic migraine G43.709 [facility] [address] 24814- 6705 Apr, Essential hypertension I10 ; Hypertriglyceridemia E78.1 and Chronic migraine G43.709 [facility] [id number] [place] [address] 04743- 7333 Apr, [facility] [id number] [place] [address] 16467- 5966 Apr, Sore throat J02.9 [facility] [id number] [place] [address] 96977- 8211 Apr, [facility] [id number] [place] [address] 83859- 9384 Mar, Strep pharyngitis J02.0 and Non-intractable vomiting with nausea, unspecified vomiting type R11.2 [facility] [id number] [place] [address] 37250- 2903 Mar, [facility] [id number] [place] [address] 02307- 4339 Mar, [facility] [id number] [place] [address] 19142- 8472 Mar, [facility] [id number] [place] [address] 34769- 2222 Mar, Type 2 diabetes mellitus with diabetic polyneuropathy E11.42 ; Moderate persistent asthma without complication J45.40 ; Status post amputation of toe of left foot Z89.422 ; Acute seasonal allergic rhinitis, unspecified trigger J30.2 and Left shoulder pain, unspecified chronicity M25.512 [place] [id number] [place] [address] 49089- 4705 Mar, [place] [id number] [place] [address] 29742- 8969 February, Pre-op evaluation Z01.818 ; Type 2 diabetes mellitus with diabetic polyneuropathy E11.42 and Type 2 diabetes mellitus with foot ulcer E11.621 [place] [id number] [place] [address] 63723- 6935 February, [place] [id number] [place] [address] 85898- 1981 February, [place] [id number] [place] [address] 85017- 3139 February, Toe infection L08.9 and Type 2 diabetes mellitus with other specified complication E11.69 [place] [id number] [place] [address] 04740- 4473 February, [place] [id number] [place] [address] 19685- 3455 Jan, Type 2 diabetes mellitus with diabetic polyneuropathy E11.42 [place] [id number] [place] [address] 88521- 3752 Jan, [place] [id number] [place] [address] 33146- 1765 Jan, Right upper quadrant pain R10.11 and Intractable vomiting with nausea, unspecified vomiting type R11.2 [place] [id number] [place] [address] 90518- 1620 Jan, Hypertriglyceridemia E78.1 and Essential hypertension I10 [place] [id number] [place] [address] 60041- 4128 Jan, Essential hypertension I10 ; Type 2 diabetes mellitus with diabetic polyneuropathy E11.42 and Hypertriglyceridemia E78.1 [facility] [id number] [place] [address] 26509- 9307 16 Dec, 2016 Type 2 diabetes mellitus with diabetic polyneuropathy E11.42 [facility] [id number] [place] [address] 10776- 7147 15 Dec, 2016 Hypertriglyceridemia E78.1 ; Essential hypertension I10 ; Type 2 diabetes mellitus with diabetic polyneuropathy E11.42 ; Anxiety disorder , unspecified F41.9 and Moderate persistent asthma without complication J45.40 [facility] [id number] [place] [address] 34634- 1914 Dec, Type 2 diabetes mellitus with diabetic polyneuropathy E11.42 [facility] [id number] [place] [address] [id number] Dec, [facility] [address] 29517- 8030 Nov, [facility] [id number] [place] [address] 78336- 0530 Nov, [facility] [id number] [place] [address] 88062- 8959 Nov, [facility] [id number] [place] [address] 16166- 2088 Nov, Toe infection L08.9 [facility] [id number] [place] [address] 33450- 5595 Nov, [facility] [id number] [place] [address] 51709- 1707 Oct, History of amputation of hallux Z89.419 [facility] [id number] [place] [address] 81519- 5028 Oct, Type 2 diabetes mellitus with diabetic polyneuropathy E11.42 [facility] [id number] [place] [address] 24851- 3522 Oct, Type 2 diabetes mellitus with diabetic polyneuropathy E11.42 [facility] [address] [address]- 8326 Oct, Acute osteomyelitis of left foot M86.172 ; Pre-op exam Z01.818 and Type 2 diabetes mellitus with diabetic polyneuropathy E11.42 [facility] [address] [address]- 4635 Oct, Foot ulcer, left, with unspecified severity L97.529 ; Acute osteomyelitis of left foot M86.172 and Type 2 diabetes mellitus with diabetic polyneuropathy E11.42 [facility] [id number] [place] [address] 04060- 3581 Sep, [facility] [id number] [place] [address] 00450- 3378 Sep, Intractable vomiting with nausea, unspecified vomiting type R11.2 and Right upper quadrant pain R10.11 [facility] [id number] [place] [address] 86439- 4000 Aug, [facility] [id number] [place] [address] 17108- 6639 Jul, [facility] [id number] [place] [address] 16460- 5150 Jul, Preop examination Z01.818 [facility] [address] [place] [address] 73347- 5123 Jul, [facility] [address] [address]- 2551 Jul, [facility] [id number] [place] [address] 11068- 6429 Jul, Chronic osteomyelitis of left foot M86.672 and Ulcer of left foot, with unspecified severity L97.529 [facility] [address] [address]- 3087 Jul, Non-pressure chronic ulcer of other part of left foot with unspecified severity L97.529 [facility] [address] [address]- 0346 Jul, [facility] [id number] [place] [address] 46506- 3621 Jul, [facility] [id number] [place] [address] 80340- 0330 Jun, [facility] [id number] [place] [address] 83211- 8645 Jun, [facility] [id number] [place] [address] 01256- 6914 Jun, [facility] [id number] [place] [address] 71743- 3937 21 Jun, 2016 Right upper quadrant pain R10.11 [facility] [id number] [place] [address] 09679- 9478 20 Jun, 2016 [facility] [id number] [place] [address] 96511- 8528 19 Jun, 2016 Intractable vomiting with nausea, unspecified vomiting type R11.2 [facility] [id number] [place] [address] 76946- 0594 13 Jun, 2016 Right upper quadrant pain R10.11 ; Migraine with aura and with status migrainosus, not intractable G43.101 and Intractable vomiting with nausea, unspecified vomiting type R11.2 [facility] [address] [place] [address] 47154- 8896 12 Jun, 2016 [facility] [id number] [place] [address] 50623- 2085 Jun, Gastroenteritis K52.9 [facility] [id number] [place] [address] 56548- 8216 May, [facility] [id number] [place] [address] 19798- 1030 May, Hypertriglyceridemia E78.1 ; Essential hypertension I10 ; Type 2 diabetes mellitus with diabetic polyneuropathy E11.42 ; Moderate persistent asthma without complication J45.40 ; Type 2 diabetes mellitus with foot ulcer E11.621 ; Other chronic pain G89.29 ; Pain in right leg M79.604 ; Pain of left leg M79.605 ; Rash and nonspecific skin eruption R21 and Anxiety disorder, unspecified F41.9 [place] [address] 43439- 1881 May, Essential hypertension I10 ; Hypertriglyceridemia E78.1 ; Upper respiratory infection J06.9 ; Subclinical hypothyroidism E03.9 and Type 2 diabetes mellitus with diabetic polyneuropathy E11.42 [place] [address] 44172- 2587 Apr, Hypertriglyceridemia E78.1 ; Subclinical hypothyroidism E03.9 ; Essential hypertension I10 and Type 2 diabetes mellitus with diabetic polyneuropathy E11.42 [place] [address] 88716- 6172 Mar, [place] [address] 94731- 0564 Mar, Ulcer of right heel L97.419 [place] [id number] [place] [address] 85468- 6018 Mar, [place] [id number] [place] [address] 84366- 0602 Mar, [place] [id number] [place] [address] 35901- 3523 February, [place] [address] 65428- 2537 February, Ulcer of right heel L97.419 and DM neuro manif type II E11.49 [place] [id number] [place] [address] 03857- 8375 Jan, [place] [address] 49645- 3486 Jan, Ulcer of right heel L97.419 ; Type 2 diabetes mellitus with foot ulcer E11.621 and Non-pressure chronic ulcer of other part of left foot with unspecified severity L97.529 [facility] [id number] [place] [address] 77330- 4708 Jan, [facility] [id number] [place] [address] 83450- 7011 Jan, [place] [id number] [place] [address] 26146- 1964 Jan, Infection of toenail L03.039 [place] [address] 98974- 1141 Jan, Blister of toe of left foot, initial encounter S90.425A and Type 2 diabetes mellitus with diabetic polyneuropathy E11.42 [place] [id number] [place] [address] 98545- 2173 Jan, [facility] [id number] [place] [address] 90312 -9475 Jan, Sore throat J02.9 and Strep pharyngitis J02.0 [place] [id number] [place] [address] 51599- 0489 Dec, Type 2 diabetes mellitus with diabetic polyneuropathy E11.42 ; Upper respiratory infection J06.9 ; Cough R05 and Asthma exacerbation J45.901 [place] [id number] [place] [address] 99122- 0093 Oct, [place] [id number] [place] [address] 45644- 5845 Oct, [facility] [id number] [place] [address] 10545- 4805 Oct, [facility] [id number] [place] [address] 91551- 1193 Oct, [facility] [id number] [place] [address] 49165- 8099 Sep, [place] [address] [place] [address] 16945- 4482 Aug, Anxiety disorder, unspecified F41.9 and Obesity E66.9 [place] [id number] [place] [address] 29427- 5892 Aug, Moderate persistent asthma without complication J45.[address] 02982- 0373 Aug, Anxiety disorder, unspecified F41.9 [place] [id number] [place] [address] 46079- 4881 Aug, Chronic migraine G43.709 ; Encounter for immunization Z23 ; Hypertriglyceridemia E78.1 ; Type 2 diabetes mellitus with diabetic polyneuropathy E11.42 ; Moderate persistent asthma without complication J45.40 and Morbid obesity E66.01 [place] [id number] [place] [address] 84452- 8412 Jul, [place] [id number] [place] [address] 40267- 0521 Jul, [place] [id number] [place] [address] 99497- 6745 Jul, [place] [id number] [place] [address] 96927- 1906 Jul, Subclinical hypothyroidism E03.9 [place] [id number] [place] [address] 21086- 4554 Jun, Essential hypertension, benign 401.1 ; Diabetic ulcer of lower extremity 250.80 ; Asthma 493.90 ; Diabetes mellitus type II, uncontrolled 250.02 and Hyperlipidemia associated with type 2 diabetes mellitus 250.80 [place] [id number] [place] [address] 20132- 0318 Jun, [place] [id number] [place] [address] 85105- 9921 Jun, [address] [address]- 3723 May, [facility] [id number] [place] [address] 54798- 3562 Apr, [facility] [id number] [place] [address] 43731- 2257 Apr, Viral upper respiratory infection 465.9 and Asthma 493.90 [facility] [id number] [place] [address] 42679- 0070 Mar, Abnormal ankle brachial index 796.4 [facility] [id number] [place] [address] 47125- 2776 February, [facility] [id number] [place] [address] 21994- 3381 February, Essential hypertension, benign 401.1 [facility] [id number] [place] [address] 77034- 4604 February, Diabetic peripheral neuropathy 250.60 ; Ulcer of heel and midfoot 707.14 and Decreased pedal pulses 785.9 [facility] [id number] [place] [address] 59297- 7646 February, [facility] [id number] [place] [address] 04448- 3047 February, [facility] [address] [place] [address] 27794- 9816 Jan, [facility] [id number] [place] [address] 51815- 5493 Jan, [facility] [id number] [place] [address] 02678- 6387 Dec, [facility] [id number] [place] [address] 32599- 0272 Dec, [facility] [id number], [place] [address]- 2850 Nov, [facility] [place] [facility] [address] [id number] [place] [address] Nov, 2014 [facility] [place] [facility] [address] [id number] [place] [address] Nov, 2014 [facility] [place] [facility] [address] [id number] [place] [address] Nov, 2014 [facility] [place] [facility] [address] [id number] [place] [address] Nov, 2014 [facility] [place] [facility] [address] [id number] [place] [address] Nov, 2014 [facility] [place] [facility] [address] [id number] [place] [address] Nov, 2014 [facility] [place] [facility] [address] [id number] [place] [address] Nov, [facility] [place] [facility] [address] [id number] [place] [address] Nov, [facility] [place] [facility] [address] [id number] [place] [address] Oct, [facility] [place] [facility] [address] [id number] [place] [address] Oct, [facility] [place] [facility] [address] [id number] [place] [address] 2542 Oct, [facility] [place] [facility] [address] [id number] [place] [address] 2544 Oct, [facility] [place] [facility] [address] [id number] [place] [address] 2543 Oct, [facility] [place] [facility] [address] [id number] [place] [address] 2549 Oct, [facility] [place] [facility] [address] [id number] [place] [address] 5741 Oct, [facility] [place] [facility] [address] [id number] [place] [address]- 6973 Oct, [facility] [address] [id number] [place] [address] 49[address] Oct, [facility] [place] [facility] [address] [id number] [place] [address]- 7125 Oct, [facility] [place] [facility] [address] [id number] [place] [address]- 5707 Oct, [facility] [place] [facility] [address] [id number] [place] [address]- 2608 Oct, [facility] [place] [facility] [address] [id number] [place] [address] 4382 Oct, [facility] [place] [facility] [address] [id number] [place] [address]- 1487 Sep, [facility] [place] [facility] [address] [id number] [place] [address]- 2706 Sep, [facility] [place] [facility] [address] [id number] [place] [address]- 1037 Sep, [facility] [place] [facility] [address] [id number] [place] [address]- 7965 Sep, [facility] [place] [facility] [address] [id number] [place] [address]- 1655 Sep, [facility] [place] [facility] [address] [id number] [place] [address]- 7787 Sep, [facility] [place] [facility] [address] [id number] [place] [address]- 0812 Sep, [facility] [place] [facility] [address] [id number] [place] [address]- 1219 Sep, [facility] [place] [facility] [address] [id number] [place] [address]- 1638 Sep, [facility] [place] [facility] [address] [id number] [place] [address]- 3614 Sep, [facility] [place] [facility] [address] [id number] [place] [address] Sep, [facility] [place] [facility] [address] [id number] [place] [address] Sep, [facility] [place] [facility] [address] [id number] [place] [address]- 9213 Sep, [facility] [place] [facility] [address] [id number] [place] [address] Sep, [facility] [place] [facility] [address] [id number] [place] [address]- 9428 Sep, [facility] [place] [facility] [address] [id number] [place] [address]- 6440 Sep, [facility] [place] [facility] [address] [id number] [place] [address]- 0718 Aug, [facility] [place] [facility] [address] [id number] [place] [address]- 4498 Aug, [facility] [place] [facility] [address] [id number] [place] [address]- 1247 Aug, [facility] [place] [facility] [address] [id number] [place] [address]- 6449 Aug, [facility] [place] [facility] [address] [id number] [place] [address]- 2940 Aug, [facility] [place] [facility] [address] [id number] [place] [address]- 6664 Aug, [facility] [place] [facility] [address] [id number] [place] [address]- 6530 Aug, [facility] [place] [facility] [address] [id number] [place] [address]- 0323 Aug, [facility] [place] [facility] [address] [id number] [place] [address]- 6342 Jul, [facility] [place] [facility] [address] [id number] [place] [address]- 0644 Jul, [facility] [place] [facility] [address] [id number] [place] [address]- 6786 30 Jul, 2014 [facility] [place] [facility] [address] [id number] [place] [address]- 0743 Jul, [facility] [place] [facility] [address] [id number] [place] [address]- 9305 Jul, [facility] [place] [facility] [address] [id number] [place] [address]- 4935 Jun, [facility] [place] [facility] [address] [id number] [place] [address]- 9003 Jun, [facility] [place] [facility] [address] [id number] [place] [address]- 9117 Jun, [facility] [place] [facility] [address] [id number] [place] [address]- 8995 Jun, [facility] [place] [facility] [address] [id number] [place] [address]- 6048 Jun, [facility] [place] [facility] [address] [id number] [place] [address]- 7289 May, [facility] [place] [facility] [address] [id number] [place] [address]- 4144 May, [facility] [place] [facility] [address] [id number] [place] [address]- 9419 Apr, [facility] [place] [facility] [address] [id number] [place] [address]- 4746 Apr, [facility] [place] [facility] [address] [id number] [place] [address]- 8386 Apr, [facility] [place] [facility] [address] [id number] [place] [address]- 3661 Apr, [facility] [place] [facility] [address] [id number] [place] [address] Apr, [facility] [place] [facility] [address] [id number] [place] [address]- 4861 Apr, [facility] [place] [facility] [address] [id number] [place] [address]- 9347 Mar, [facility] [place] [facility] [address] [id number] [place] [address]- 7962 Mar, [facility] [place] [facility] [address] [id number] [place] [address]- 4829 Mar, [facility] [place] [facility] [address] [id number] [place] [address]- 1406 Mar, [facility] [place] [facility] [address] [id number] [place] [address]- 7473 Mar, [facility] [place] [facility] [address] [id number] [place] [address]- 9311 Mar, [facility] [place] [facility] [address] [id number] [place] [address]- 8628 Mar, [facility] [place] [facility] [address] [id number] [place] [address]- 7874 Mar, [facility] [place] [facility] [address] [id number] [place] [address]- 9480 Mar, [facility] [place] [facility] [address] [id number] [place] [address]- 9701 Mar, [facility] [place] [facility] [address] [id number] [place] [address]- 1562 Mar, [facility] [place] [facility] [address] [id number] [place] [address]- 3165 Mar, [facility] [place] [facility] [address] [id number] [place] [address]- 4986 Mar, [facility] [place] [facility] [address] [id number] [place] [address]- 3902 Mar, [facility] [place] [facility] [address] [id number] [place] [address]- 2857 Mar, [facility] [place] [facility] [address] [id number] [place] [address]- 5574 Mar, [facility] [place] [facility] [address] [id number] [place] [address]- 8728 February, [facility] [place] [facility] [address] [id number] [place] [address]- 0502 February, [facility] [place] [facility] [address] [id number] [place] [address]- 4220 February, [facility] [place] [facility] [address] [id number] [place] [address]- 9658 February, [facility] [place] [facility] [address] [id number] [place] [address]- 7853 February, [facility] [place] [facility] [address] [id number] [place] [address]- 0629 February, [facility] [place] [facility] [address] [id number] [place] [address]- 3037 February, [facility] [place] [facility] [address] [id number] [place] [address]- 9782 February, [facility] [place] [facility] [address] [id number] [place] [address]- 9519 Jan, [facility] [place] [facility] [address] [id number] [place] [address]- 0567 Jan, [facility] [place] [facility] [address] [id number] [place] [address]- 2443 Dec, [facility] [place] [facility] [address] [id number] [place] [address]- 3850 Dec, [facility] [place] [facility] [address] [id number] [place] [address]- 1176 Dec, [facility] [place] [facility] [address] [id number] [place] [address]- 7643 Dec, [facility] [place] [facility] [address] [id number] [place] [address]- 4928 24 Dec, 2013 [facility] [place] [facility] [address] [id number] [place] [address]- 2055 24 Dec, 2013 [facility] [place] [facility] [address] [id number] [place] [address]- 6088 Dec, [facility] [place] [facility] [address] [id number] [place] [address]- 0112 Dec, [facility] [place] [facility] [address] [id number] [place] [address]- 1480 17 Dec, 2013 [facility] [place] [facility] [address] [id number] [place] [address]- 8508 17 Dec, 2013 [facility] [place] [facility] [address] [id number] [place] [address]- 0304 Dec, [facility] [place] [facility] [address] [id number] [place] [address]- 5281 Dec, [facility] [place] [facility] [address] [id number] [place] [address]- 3845 Dec, [facility] [place] [facility] [address] [id number] [place] [address]- 9325 Dec, [facility] [place] [facility] [address] [id number] [place] [address]- 9662 Nov, [facility] [place] [facility] [address] [id number] [place] [address]- 4062 Nov, [facility] [place] [facility] [address] [id number] [place] [address]- 5456 Oct, [facility] [place] [facility] [address] [id number] [place] [address]- 5990 Oct, [facility] [place] [facility] [address] [id number] [place] [address]- 4534 Oct, [facility] [place] [facility] [address] [id number] [place] [address]- 6748 Oct, [facility] [place] [facility] [address] [id number] [place] [address]- 1382 16 Oct, 2013 [facility] [place] [facility] [address] [id number] [place] [address]- 7335 Oct, [facility] [place] [facility] [address] [id number] [place] [address]- 1616 Oct, [facility] [place] [facility] [address] [id number] [place] [address]- 8384 31 Sep, 2013 [facility] [place] [facility] [address] [id number] [place] [address]- 0602 30 Sep, 2013 [facility] [place] [facility] [address] [id number] [place] [address]- 0373 30 Sep, 2013 [facility] [place] [facility] [address] [id number] [place] [address]- 4025 Sep, [facility] [place] [facility] [address] [id number] [place] [address]- 9032 Sep, [facility] [place] [facility] [address] [id number] [place] [address]- 9369 Sep, [facility] [place] [facility] [address] [id number] [place] [address]- 3186 Sep, [facility] [place] [facility] [address] [id number] [place] [address]- 0632 Sep, [facility] [place] [facility] [address] [id number] [place] [address]- 2660 Sep, [facility] [place] [facility] [address] [id number] [place] [address] 2541 Sep, [facility] [place] [facility] [address] [id number] [place] [address]- 4726 Sep, [facility] [place] [facility] [address] [id number] [place] [address]- 0096 Sep, [facility] [place] [facility] [address] [id number] [place] [address]- 6788 Sep, [facility] [place] [facility] [address] [id number] [place] [address]- 0474 16 Sep, 2013 [facility] [place] [facility] [address] [id number] [place] [address]- 7207 Sep, [facility] [place] [facility] [address] [id number] [place] [address]- 2395 Sep, [facility] [place] [facility] [address] [id number] [place] [address]- 8989 Sep, [facility] [place] [facility] [address] [id number] [place] [address]- 0264 Sep, [facility] [place] [facility] [address] [id number] [place] [address]- 1869 Sep, [facility] [place] [facility] [address] [id number] [place] [address]- 0727 Aug, [facility] [place] [facility] [address] [id number] [place] [address]- 5785 Aug, [facility] [place] [facility] [address] [id number] [place] [address]- 2819 Aug, [facility] [place] [facility] [address] [id number] [place] [address]- 8759 Aug, [facility] [place] [facility] [address] [id number] [address]- 1125 Aug, [facility] [place] [facility] [address] [id number], [place] [address]- 8505 Aug, [facility] [place] [facility] [address] [id number] [place] [address]- 5234 Aug, [facility] [place] [facility] [address] [id number] [address]- 5682 Aug, [facility] [place] [facility] [address] [id number], [place] [address]- 5979 Aug, [facility] [place] [facility] [address] [id number] [place] [address]- 9040 Aug, [facility] [place] [facility] [address] [id number] [place] [address]- 2369 Aug, [facility] [place] [facility] [address] [id number] [place] [address]- 6147 Aug, [facility] [place] [facility] [address] [id number] [place] [address]- 7158 Aug, [facility] [place] [facility] [address] [id number] [place] [address]- 3699 Aug, [facility] [place] [facility] [address] [id number] [place] [address]- 0584 Aug, [facility] [place] [facility] [address] [id number] [place] [address]- 8648 Aug, [facility] [place] [facility] [address] [facility] [id number] [place] [address]- 6103 Aug, [facility] [place] [facility] [address] [id number] [place] [address]- 4865 Jul, [facility] [place] [facility] [address] [id number] [place] [address]- 5058 Jul, [facility] [place] [facility] [address] [facility] [id number] [place] [address]- 4276 Jul, [facility] [place] [facility] [address] [id number] [place] [address]- 5741 Jul, [facility] [place] [facility] [address] [id number], [place] [address]- 4876 Jul, [facility] [place] [facility] [address] [id number] [place] [address]- 8446 Jul, [facility] [place] [facility] [address] [facility] [id number] [place] 7133 Jul, [facility] [place] [facility] [address] [id number] [address] Jun, [facility] [address] [id number], [place] [address]- 0754 20 Jun, 2012 [facility] [address] [id number] [place] [address]- 5178 17 Jun, 2012 [facility] [address] [id number], [place] [address]- 2737 10 Jun, 2012 [facility] [address] [id number] [place] [address]- 0119 06 Jun, 2012 [facility] [address] [id number] [place] [address]- 8112 06 Jun, 2012 [facility] [address] [id number] [place] [address]- 5336 05 Jun, 2012 [facility] [address] [facility] [id number] [place] [address]- 8896 03 Jun, 2013 [facility] [address] [facility] [id number][place] [address]- 5343 May, [facility] [address] [facility] [id number], [place] [address]- 2783 May, [facility] [address] [facility] [id number], [place] [address]- 8138 15 May, 2013 [facility] [address] [facility] [id number] [address]- 0576 May, [facility] [address] [id number], [place] [address]- 1874 May, [facility] [address] [facility] [id number], [place] [address]- 5059 May, [facility] [address] [facility] [id number], [place] [address]- 2651 May, [facility] [address] [facility] [id number], [place] [address]- 5469 May, IMMUNIZATIONS No Known Immunizations SOCIAL HISTORY Never Assessed REASON FOR VISIT Patient Call PLAN OF CARE VITAL SIGNS MEDICATIONS Unknown [...] in heel of feet Surgical History appendectomy [facility] 1995 Surgical History salpingectomy [facility] Surgical History bladder surgery-stretch [facility] 2003 Surgical History exploratory laparoscopy [facility] 1995 Surgical History amputation, toe (R great) Surgical History amputation, (R forefoot) 2014 Surgical History amputation, toe Left second 12/2016 Surgical History amputation, 4th left toe 02/2017 Hospitalization History Left foot cellulitis, left 2nd toe amputation-[facility] 12/23 Hospitalization History Surgery Hospitalizations
--- OUTSIDE RECORDS SUMMARY | 2018-08-22 09:31 | XMS REPORT ---
Author Author LUDIVINA STEPHANIE [facility] Address [address] [place] [address] Care Team Providers Care Rn Chronic Name Role Phone LUDIVINADEE DEE FAIRCHILDHANY Unavailable PROBLEMS Type Condition ICD9-CM Code ZAG36-DC Code Onset Dates Condition Status SNOMED Code Problem Subclinical hypothyroidism E03.9 Active 59936042 Problem History of amputation of hallux Z89.419 Active 349885996 Problem Hypertriglyceridemia E78.1 Active 063332316 Problem Type 2 diabetes mellitus with other specified complication E11.69 Active 144081212 Problem Type 2 diabetes mellitus with diabetic polyneuropathy E11.42 Active 087643681 Problem Status post amputation of toe of left foot Z89.422 Active 587987296 Problem Pain in left foot M79.672 Active 19222515 Problem Other chronic pain G89.29 Active 30747847 Problem Ulcer of right heel L97.419 Active 833143202 Problem Intrinsic eczema L20.84 Active 90715628 Problem Irregular menstrual cycle N92.6 Active 09156723 Problem Type 2 diabetes mellitus with other skin complications E11.628 Active 15978981 Problem Type 2 diabetes mellitus with diabetic chronic 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 Active 328887628 Problem Chronic prescription opiate use Z79.891 Active 657321438 Problem Pain in right foot M79.671 Active 78104217 Problem Severe episode of recurrent major depressive disorder, without psychotic features F33.2 Active 53650235 Problem Tonsillolith J35.8 Active 0733080 Problem Chronic kidney disease, stage III (moderate) N18.3 Active 741964031 Problem Essential hypertension I10 Active 95866796 Problem Moderate persistent asthma without complication J45.40 Active 141404283 Problem Chronic migraine G43.709 Active 09205541 Problem Type 2 diabetes mellitus with foot ulcer E11.621 Active 05114557 Problem DM neuro manif type II E11.49 Active 61331139 Problem Anxiety disorder, unspecified F41.9 Active 956584451 Problem Obesity E66.9 Active 025588691 ALLERGIES No Information ENCOUNTERS Encounter Location Date Diagnosis [place] [address] [address] February, [place] [address] 53495- 0353 19 Dec, 2017 Type 2 diabetes mellitus with diabetic polyneuropathy E11.42 [place] [address] 84444- 0797 15 Dec, 2017 [place] [address] 84908- 6726 14 Dec, 2017 [place] [address] 45854- 2188 13 Dec, 2017 Chronic kidney disease, stage III (moderate) N18.3 [facility] [place] [address] [address] 09 Dec, 2017 Nausea R11.0 and Diarrhea, unspecified type R19.7 [place] [address] 11231- 0615 07 Dec, 2017 Chronic kidney disease, stage III (moderate) N18.3 and Type 2 diabetes mellitus with diabetic polyneuropathy E11.42 [place] [address] [place] [id number] [place] [address] 45881- 0622 06 Dec, 2017 [place] [address] 23209- 8443 23 Nov, 2017 Ulcer of right heel L97.419 and Type 2 diabetes mellitus with diabetic polyneuropathy E11.42 [facility] [address] [place] [id number] [place] [address] [id number] Nov, Dental examination Z01.20 [place] [address] 5[address]00- 3869 22 Nov, 2017 Open wound of right foot, initial encounter S91.301A [facility] [address] [address] Nov, Open wound of right foot, initial encounter S91.301A ; Non- intractable vomiting with nausea, unspecified vomiting type R11.2 and BMI 60.0- 69.9, adult Z68.44 [place] [address] [place] [id number] [place] [address] 51481- 8151 Nov, [place] [address] 50939- 1520 Nov, Other chronic pain G89.29 [place] [address] 72067- 0349 Oct, Cellulitis of right lower limb L03.115 [place] [address] 28879- 2856 Oct, [place] [address] 53220- 9807 Oct, [place] [address] 51093- 7411 Oct, Cat scratch W55.03XA ; Cellulitis of right lower limb L03.115 ; Acute nasopharyngitis J00 ; BMI 60.0-69.9, adult Z68.44 and Cough R05 [place] [address] [place] [id number] [place] [address] 63530- 8773 Oct, Cat scratch W55.03XA ; Cutaneous abscess of right lower extremity L02.415 and Cellulitis of right lower limb L03.115 [place] [address] [place] [id number] [place] [address] 12099- 9041 Oct, Type 2 diabetes mellitus with diabetic polyneuropathy E11.42 [place] [address] 50347- 7297 Oct, Other chronic pain G89.29 [place] [address] [place] [id number] [place] [address] 10871- 5463 Aug, [place] [address] 91564- 6001 Jul, Other chronic pain G89.29 [place] [address] 96932- 7015 Jul, [place] [address] 57429- 0130 Jul, Chronic kidney disease, stage III (moderate) N18.3 [place] [address] 76575- 6281 04 Jul, 2017 Type 2 diabetes mellitus with diabetic polyneuropathy E11.42 ; Essential hypertension I10 ; Irregular menstrual cycle N92.6 ; Hypertriglyceridemia E78.1 ; Anxiety disorder, unspecified F41.9 ; Severe episode of recurrent major depressive disorder, without psychotic features F33.2 ; Tonsillolith J35.8 ; Intrinsic eczema L20.84 ; Subclinical hypothyroidism E03.9 ; Viral pharyngitis J02.9 and Encounter for immunization Z23 [place] [address] 61320- 9871 13 Jun, 2017 Essential hypertension I10 [address] [address]74- 0613 08 Jun, 2017 [place] [address] 69184- 5115 Jun, [place] [address] 42046- 0897 May, Moderate persistent asthma without complication J45.[address] 63147- 2270 17 May, 2017 Pain in right foot M79.671 ; Pain in left foot M79.672 ; Other chronic pain G89.29 and Chronic prescription opiate use Z79.891 [place] [address] 90832- 7309 May, [place] [address] 21603- 4839 May, [place] [address] [place] [id number] [place] [address] 19504- 9426 Apr, [place] [address] [place] [id number] [place] [address] 29814- 6136 Apr, Chronic migraine G43.709 [place] [address] [place] [id number] [place] [address] 49091- 6824 Apr, Essential hypertension I10 ; Hypertriglyceridemia E78.1 and Chronic migraine G43.709 [place] [address] 07230- 6092 Apr, [place] [address] 94007- 0709 Apr, Sore throat J02.[address] 90954- 2164 Apr, [place] [address] 58369- 4683 Mar, Strep pharyngitis J02.0 and Non-intractable vomiting with nausea, unspecified vomiting type R11.2 [place] [id number] [place] [address] 78919- 3639 Mar, [place] [address] [place] [id number] [place] [address] 93192- 0346 Mar, [place] [address] [place] [id number] [place] [address] 91935- 7701 Mar, [place] [address] [place] [id number] [place] [address] 42592- 7293 Mar, Type 2 diabetes mellitus with diabetic polyneuropathy E11.42 ; Moderate persistent asthma without complication J45.40 ; Status post amputation of toe of left foot Z89.422 ; Acute seasonal allergic rhinitis, unspecified trigger J30.2 and Left shoulder pain, unspecified chronicity M25.512 [place] [id number] [place] [address] 78669- 7017 Mar, [facility] [address] [address] February, Pre-op evaluation Z01.818 ; Type 2 diabetes mellitus with diabetic polyneuropathy E11.42 and Type 2 diabetes mellitus with foot ulcer E11.621 [place] [address] [address] 8[address] February, [facility] [address] [place] [id number] [place] [address] 64269- 8731 February, [facility] [address] [place] [id number] [place] [address] 34450- 7430 February, Toe infection L08.9 and Type 2 diabetes mellitus with other specified complication E11.69 [place] [address] [place] [id number] [place] [address] 63307- 9227 February, [place] [address] [place] [id number] [place] [address] 98606- 9590 Jan, Type 2 diabetes mellitus with diabetic polyneuropathy E11.42 [place] [address] [place] [id number] [place] [address] 98792- 1346 Jan, [place] [address] [place] [id number] [place] [address] 04261- 3439 Jan, Right upper quadrant pain R10.11 and Intractable vomiting with nausea, unspecified vomiting type R11.2 [place] [address] [place] [id number] [place] [address] 64427- 7655 Jan, Hypertriglyceridemia E78.1 and Essential hypertension I10 [place] [address] [place] [id number] [place] [address] 63886- 1058 Jan, Essential hypertension I10 ; Type 2 diabetes mellitus with diabetic polyneuropathy E11.42 and Hypertriglyceridemia E78.1 [place] [address] [address]- 9455 Dec, Type 2 diabetes mellitus with diabetic polyneuropathy E11.42 [facility] [address] [place] [id number] [place] [address] 61329- 4444 15 Dec, 2016 Hypertriglyceridemia E78.1 ; Essential hypertension I10 ; Type 2 diabetes mellitus with diabetic polyneuropathy E11.42 ; Anxiety disorder , unspecified F41.9 and Moderate persistent asthma without complication J45.40 [place] [address] [place] [id number] [place] [address] 73825- 1205 Dec, Type 2 diabetes mellitus with diabetic polyneuropathy E11.42 [facility] [address] [place] [id number] [place] [address] [id number] Dec, [place] [address] [place] [id number] [place] [address] 08571- 1129 Nov, [place] [address] [place] [id number] [place] [address] 72503- 5424 Nov, [place] [address] [place] [id number] [place] [address] 31840- 3288 Nov, [facility] [address] [place] [id number] [place] [address] 79673- 1420 Nov, Toe infection L08.9 [place] [address] [place] [id number] [place] [address] 02799- 3445 Nov, [place] [address] [place] [id number] [place] [address] 06435- 4455 Oct, History of amputation of hallux Z89.419 [place] [address] [place] [address] 11428- 7099 Oct, Type 2 diabetes mellitus with diabetic polyneuropathy E11.42 [place] [address] [place] [address] 48839- 1169 Oct, Type 2 diabetes mellitus with diabetic polyneuropathy E11.42 [place] [address] [place] [address] 09185- 2555 Oct, Acute osteomyelitis of left foot M86.172 ; Pre-op exam Z01.818 and Type 2 diabetes mellitus with diabetic polyneuropathy E11.42 [facility] [address] [place] [address] 23556- 9100 Oct, Foot ulcer, left, with unspecified severity L97.529 ; Acute osteomyelitis of left foot M86.172 and Type 2 diabetes mellitus with diabetic polyneuropathy E11.42 [facility] [address] [place] [id number] [place] [address] 37259- 9906 Sep, [facility] [address] [place] [id number] [place] [address] 96912- 6324 Sep, Intractable vomiting with nausea, unspecified vomiting type R11.2 and Right upper quadrant pain R10.11 [facility] [address] [place] [id number] [place] [address] 87735- 5319 Aug, [facility] [address] [place] [id number] [place] [address] 95128- 3866 Jul, [facility] [address] [place] [id number] [place] [address] 45350- 2538 Jul, Preop examination Z01.818 [facility] [address] [place] [id number] [place] [address] 70349- 3582 Jul, [facility] [address] [place] [id number] [place] [address] 28464- 3753 Jul, [facility] [address] [place] [id number] [place] [address] 85071- 2014 Jul, Chronic osteomyelitis of left foot M86.672 and Ulcer of left foot, with unspecified severity L97.529 [facility] [address] [place] [address] 47188- 0463 Jul, Non-pressure chronic ulcer of other part of left foot with unspecified severity L97.529 [facility] [address] [place] [id number] [place] [address] 68808- 6353 Jul, [facility] [address] [place] [id number] [place] [address] 54021- 7909 Jul, [facility] [address] [address]- 5194 Jun, [facility] [address] [place] [id number] [place] [address] 60683- 1113 Jun, [facility] [address] [place] [id number] [place] [address] 53853- 8151 Jun, [facility] [address] [place] [id number] [place] [address] 73023- 2076 Jun, Right upper quadrant pain R10.11 [facility] [address] [place] [id number] [place] [address] 35390- 1863 Jun, [place] [address] [place] [id number] [place] [address] 22257- 0563 Jun, Intractable vomiting with nausea, unspecified vomiting type R11.2 [place] [address] [place] [id number] [place] [address] 80911- 2293 13 Jun, 2016 Right upper quadrant pain R10.11 ; Migraine with aura and with status migrainosus, not intractable G43.101 and Intractable vomiting with nausea, unspecified vomiting type R11.2 [place] [address] [place] [id number] [place] [address] 29844- 8200 Jun, [place] [address] [place] [id number] [place] [address] 99590- 9428 Jun, Gastroenteritis K52.9 [place] [address] [place] [address] 45317- 9376 May, [facility] [address] [place] [id number] [place] [address] 01340- 2512 May, Hypertriglyceridemia E78.1 ; Essential hypertension I10 ; Type 2 diabetes mellitus with diabetic polyneuropathy E11.42 ; Moderate persistent asthma without complication J45.40 ; Type 2 diabetes mellitus with foot ulcer E11.621 ; Other chronic pain G89.29 ; Pain in right leg M79.604 ; Pain of left leg M79.605 ; Rash and nonspecific skin eruption R21 and Anxiety disorder, unspecified F41.9 [facility] [address] [place] [id number] [place] [address] 58924- 0517 May, Essential hypertension I10 ; Hypertriglyceridemia E78.1 ; Upper respiratory infection J06.9 ; Subclinical hypothyroidism E03.9 and Type 2 diabetes mellitus with diabetic polyneuropathy E11.42 [facility] [address] [place] [id number] [place] [address] 75575- 1653 Apr, Hypertriglyceridemia E78.1 ; Subclinical hypothyroidism E03.9 ; Essential hypertension I10 and Type 2 diabetes mellitus with diabetic polyneuropathy E11.42 [place] [address] [place] [id number] [place] [address] 37196- 3395 Mar, [place] [address] [place] [id number] [place] [address] 62334- 6747 Mar, Ulcer of right heel L97.419 [place] [address] [place] [id number] [place] [address] 01027- 8396 Mar, [place] [address] [place] [id number] [place] [address] 63900- 8388 Mar, [place] [address] [place] [id number] [place] [address] 72079- 7207 February, [place] [address] [place] [id number] [place] [address] 61476- 0744 February, Ulcer of right heel L97.419 and DM neuro manif type II E11.49 [facility] [address] [place] [id number] [place] [address] 05170- 3422 Jan, [facility] [address] [place] [id number] [place] [address] 98152- 0685 Jan, Ulcer of right heel L97.419 ; Type 2 diabetes mellitus with foot ulcer E11.621 and Non-pressure chronic ulcer of other part of left foot with unspecified severity L97.529 [facility] [address] [place] [id number] [place] [address] 59917- 1049 Jan, [facility] [address], [place] [address]- 4732 Jan, [facility] [address] [place] [id number] [place] [address] 92243- 9172 Jan, Infection of toenail L03.039 [facility] [address] [place] [id number] [place] [address] 50587- 5310 Jan, Blister of toe of left foot, initial encounter S90.425A and Type 2 diabetes mellitus with diabetic polyneuropathy E11.42 [facility] [address] [place] [id number] [place] [address] 93131- 3924 Jan, [facility] [address] [place] [id number] [place] [address] 58743 -8037 Jan, Sore throat J02.9 and Strep pharyngitis J02.0 [facility] [address] [place] [id number] [place] [address] 45180- 5663 Dec, Type 2 diabetes mellitus with diabetic polyneuropathy E11.42 ; Upper respiratory infection J06.9 ; Cough R05 and Asthma exacerbation J45.901 [facility] [address] [place] [id number] [place] [address] 66201- 7781 Oct, [facility] [address] [place] [id number] [place] [address] 15329- 9363 Oct, [facility] [address] [place] [id number] [place] [address] 71917- 9334 Oct, [facility] [address] [place] [address] 09021- 8360 Oct, [facility] [address] [place] [id number] [place] [address] 45203- 3503 Sep, [facility] [address] [place] [id number] [place] [address] 14868- 2518 24 Aug, 2015 Anxiety disorder, unspecified F41.9 and Obesity E66.9 [facility] [address] [place] [id number] [place] [address] 81593- 6706 Aug, Moderate persistent asthma without complication J45.40 [facility] [address] [place] [id number] [place] [address] 62895- 9278 Aug, Anxiety disorder, unspecified F41.9 [facility] [address] [place] [id number] [place] [address] 11587- 7032 Aug, Encounter for immunization Z23 ; Chronic migraine G43.709 ; Hypertriglyceridemia E78.1 ; Type 2 diabetes mellitus with diabetic polyneuropathy E11.42 ; Moderate persistent asthma without complication J45.40 and Morbid obesity E66.01 [facility] [address] 73847- 0739 Jul, [facility] [address] [place] [id number] [place] [address] 55521- 6389 Jul, [facility] [address] 28277- 4119 Jul, [facility] [address] [place] [id number] [place] [address] 48508- 3580 Jul, Subclinical hypothyroidism E03.9 [facility] [address] [place] [id number] [place] [address] 69109- 2207 Jun, Essential hypertension, benign 401.1 ; Diabetic ulcer of lower extremity 250.80 ; Asthma 493.90 ; Diabetes mellitus type II, uncontrolled 250.02 and Hyperlipidemia associated with type 2 diabetes mellitus 250.80 [facility] [address] [place] [id number] [place] [address] 82975- 2388 Jun, [facility] [address] [place] [id number] [place] [address] 22435- 9169 Jun, [facility] [address] [place] [id number] [place] [address] 46413- 3733 May, [facility] [address] [place] [id number] [place] [address] 84631- 7934 Apr, [facility] [address] [place] [address]- 7415 Apr, Viral upper respiratory infection 465.9 and Asthma 493.90 [facility] [address] [place] [id number] [place] [address] 76824- 5751 Mar, Abnormal ankle brachial index 796.4 [facility] [address] [place] [id number] [place] [address] 45193- 7055 February, [facility] [address] [place] [id number] [place] [address] 86730- 8179 February, Essential hypertension, benign 401.1 [facility] [address] [place] [id number] [place] [address] 53373- 7925 February, Diabetic peripheral neuropathy 250.60 ; Ulcer of heel and midfoot 707.14 and Decreased pedal pulses 785.9 [facility] [address] [place] [id number] [place] [address] 26306- 8813 February, [facility] [address] [place] [id number] [place] [address] 29583- 9368 February, [facility] [address] [place] [id number] [place] [address] 80952- 3736 Jan, [facility] [address] [place] [id number] [place] [address] 30608- 5049 Jan, [facility] [address], [place] [address]- 3906 Dec, [facility] [address] [place] [id number] [place] [address] 13891- 9140 Dec, [facility] [address], [place] [address]- 9034 Nov, [facility] [address] [place] [id number] [place] [address] 554179- 4583 Nov, [facility] [address], [place] [address]- 9394 Nov, [facility] [address] [address]- 7753 Nov, [facility] [place] [facility] [address] [id number] [place] [address]- 0356 Nov, 2014 [facility] [place] [facility] [address] [id number] [place] [address]- 2546 Nov, 2014 [facility] [place] [facility] [address] [id number] [place] [address]- 8336 Nov, 2014 [facility] [place] [facility] [address] [id number] [place] [address]- 2549 Nov, [facility] [place] [facility] [address] [id number] [place] [address]- 5167 Nov, [facility] [place] [facility] [address] [id number] [place] [address]- 9974 Oct, [facility] [place] [facility] [address] [id number] [place] [address]- 5080 Oct, [facility] [place] [facility] [address] [id number] [place] [address]- 5198 Oct, [facility] [place] [facility] [address] [id number] [place] [address] Oct, [facility] [place] [facility] [address] [id number] [place] [address] Oct, [facility] [place] [facility] [address] [id number] [place] [address] Oct, [facility] [place] [facility] [address] [id number] [place] [address] Oct, [facility] [place] [facility] [address] [id number] [place] [address] Oct, [facility] [place] [facility] [address] [id number] [place] [address] Oct, [facility] [place] [facility] [address] [id number] [place] [address] Oct, [facility] [place] [facility] [address] [id number] [place] [address] Oct, [facility] [place] [facility] [address] [id number] [place] [address] Oct, [facility] [place] [facility] [address] [id number] [place] [address] Oct, [facility] [place] [facility] [address] [id number] [place] [address] Sep, [facility] [place] [facility] [address] [id number] [place] [address] Sep, [facility] [place] [facility] [address] [id number] [place] [address] Sep, [facility] [place] [facility] [address] [id number] [place] [address] 1493 Sep, [facility] [place] [facility] [address] [id number] [place] [address] Sep, [facility] [place] [facility] [address] [id number] [place] [address] 44[address] Sep, [facility] [place] [facility] [address] [id number] [place] [address] 6577 Sep, [facility] [place] [facility] [address] [id number] [place] [address] 6[address] Sep, [facility] [place] [facility] [address] [id number] [place] [address] 1982 Sep, [facility] [place] [facility] [address] [id number] [place] [address]- 9312 Sep, [facility] [place] [facility] [address] [id number] [place] [address] 9581 Sep, [facility] [place] [facility] [address] [id number] [place] [address] 1395 Sep, [facility] [place] [facility] [address] [id number] [place] [address]- 6776 Sep, [facility] [place] [facility] [address] [id number] [place] [address]- 5699 Sep, [facility] [place] [facility] [address] [id number] [place] [address] Sep, [facility] [place] [facility] [address] [id number] [place] [address] Sep, [facility] [place] [facility] [address] [id number] [place] [address]- 5535 Aug, [facility] [place] [facility] [address] [id number] [place] [address]- 0961 Aug, [facility] [place] [facility] [address] [id number] [place] [address] 8309 Aug, [facility] [place] [facility] [address] [id number] [place] [address]- 9364 Aug, [facility] [place] [facility] [address] [id number] [place] [address]- 0835 Aug, [facility] [place] [facility] [address] [id number] [place] [address] 5916 Aug, [facility] [place] [facility] [address] [facility] [id number] [place] [address]- 2106 Aug, [facility] [place] [facility] [address] [id number] [place] [address]- 2421 Aug, [facility] [place] [facility] [address] [id number] [place] [address]- 7947 Jul, [facility] [place] [facility] [address] [id number] [place] [address]- 0196 Jul, [facility] [place] [facility] [address] [id number] [place] [address]- 5820 30 Jul, 2014 [facility] [place] [facility] [address] [id number] [place] [address]- 1771 15 Jul, 2014 [facility] [place] [facility] [address] [id number] [place] [address]- 6572 Jul, [facility] [place] [facility] [address] [id number] [place] [address]- 6520 Jun, [facility] [place] [facility] [address] [id number] [place] [address]- 6072 Jun, [facility] [place] [facility] [address] [id number] [place] [address]- 2992 Jun, [facility] [place] [facility] [address] [id number] [place] [address]- 9024 Jun, [facility] [place] [facility] [address] [id number] [place] [address]- 1684 Jun, [facility] [place] [facility] [address] [id number] [place] [address]- 3394 May, [facility] [place] [facility] [address] [id number] [place] [address]- 2055 May, [facility] [place] [facility] [address] [id number] [place] [address]- 1399 Apr, [facility] [place] [facility] [address] [id number] [place] [address]- 3862 Apr, [facility] [place] [facility] [address] [id number] [place] [address]- 1690 Apr, [facility] [place] [facility] [address] [id number] [place] [address]- 0442 Apr, [facility] [place] [facility] [address] [id number] [place] [address]- 5649 Apr, [facility] [place] [facility] [address] [id number] [place] [address]- 0311 Apr, [facility] [place] [facility] [address] [id number] [place] [address] Mar, [facility] [place] [facility] [address] [id number] [place] [address]- 3128 Mar, [facility] [place] [facility] [address] [id number] [place] [address]- 0225 Mar, [facility] [place] [facility] [address] [id number] [place] [address]- 0695 Mar, [facility] [place] [facility] [address] [id number] [place] [address]- 4733 Mar, [facility] [place] [facility] [address] [id number] [place] [address]- 2297 Mar, [facility] [place] [facility] [address] [id number] [place] [address]- 4869 Mar, [facility] [place] [facility] [address] [id number] [place] [address]- 3120 Mar, [facility] [place] [facility] [address] [id number] [place] [address]- 6059 Mar, [facility] [place] [facility] [address] [id number] [place] [address]- 3920 Mar, [facility] [place] [facility] [address] [id number] [place] [address]- 5550 Mar, [facility] [place] [facility] [address] [id number] [place] [address]- 9374 Mar, [facility] [place] [facility] [address] [id number] [place] [address]- 2609 Mar, [facility] [place] [facility] [address] [id number] [place] [address]- 1121 Mar, [facility] [place] [facility] [address] [id number] [place] [address]- 3854 Mar, [facility] [place] [facility] [address] [id number] [place] [address]- 2767 Mar, [facility] [place] [facility] [address] [id number] [place] [address]- 1705 February, [facility] [place] [facility] [address] [id number] [place] [address]- 1653 February, [facility] [address] [id number] [place] [address]- 7677 February, [facility] [place] [facility] [address] [id number] [place] [address] 3495 February, [facility] [place] [facility] [address] [id number] [place] [address]- 2449 February, [facility] [place] [facility] [address] [id number] [place] [address]- 9720 February, [facility] [place] [facility] [address] [id number] [place] [address]- 2900 February, [facility] [place] [facility] [address] [id number] [place] [address]- 8715 February, [facility] [place] [facility] [address] [id number] [place] [address]- 7572 Jan, [facility] [place] [facility] [address] [id number] [place] [address]- 7524 Jan, [facility] [place] [facility] [address] [id number] [place] [address]- 2649 Dec, [facility] [place] [facility] [address] [id number] [place] [address]- 9333 Dec, [facility] [place] [facility] [address] [id number] [place] [address]- 8714 Dec, [facility] [place] [facility] [address] [id number] [place] [address]- 4662 Dec, [facility] [place] [facility] [address] [id number] [place] [address]- 3279 Dec, [facility] [place] [facility] [address] [id number] [place] [address]- 4786 Dec, [facility] [place] [facility] [address] [id number] [place] [address]- 7569 Dec, [facility] [place] [facility] [address] [id number] [place] [address]- 2236 19 Dec, 2013 [facility] [place] [facility] [address] [id number] [place] [address]- 3955 17 Dec, 2013 [facility] [place] [facility] [address] [id number] [place] [address]- 4342 17 Dec, 2013 [facility] [place] [facility] [address] [id number] [place] [address]- 4839 14 Dec, 2013 [facility] [place] [facility] [address] [id number] [place] [address]- 9149 Dec, [facility] [place] [facility] [address] [id number] [place] [address]- 5345 Dec, [facility] [place] [facility] [address] [id number] [place] [address]- 9810 Dec, [facility] [place] [facility] [address] [id number] [place] [address]- 9045 Nov, [facility] [place] [facility] [address] [id number] [place] [address]- 7967 Nov, [facility] [place] [facility] [address] [id number] [place] [address]- 9857 Oct, [facility] [place] [facility] [address] [id number] [place] [address]- 4165 Oct, [facility] [place] [facility] [address] [id number] [place] [address]- 2808 Oct, [facility] [place] [facility] [address] [id number] [place] [address]- 8840 Oct, [facility] [place] [facility] [address] [id number] [place] [address]- 9893 Oct, [facility] [place] [facility] [address] [id number] [place] [address]- 7129 Oct, [facility] [place] [facility] [address] [id number] [place] [address]- 2582 06 Oct, 2013 [facility] [address] [id number] [place] [address]- 8292 31 Sep, 2013 [facility] [address] [id number] [place] [address]- 5806 30 Sep, 2013 [facility] [address] [id number] [place] [address]- 5066 30 Sep, 2013 [facility] [place] [facility] [address] [id number] [place] [address]- 3333 29 Sep, 2013 [facility] [address] [id number] [place] [address]- 0927 Sep, [facility] [address] [id number] [place] [address]- 6259 Sep, [facility] [address] [id number] [place] [address]- 9547 Sep, [facility] [address] [id number] [place] [address]- 3512 Sep, [facility] [address] [id number] [place] [address]- 5558 24 Sep, 2013 [facility] [address] [id number] [place] [address]- 9792 24 Sep, 2013 [facility] [address] [id number] [place] [address]- 8196 2013 [facility] [place] [facility] [address] [id number] [place] [address] 254 2013 [facility] [place] [facility] [address] [id number] [place] [address]- 8010 16 Sep, 2013 [facility] [place] [facility] [address] [id number] [place] [address]- 2546 16 Sep, 2013 [facility] [address] [id number] [place] [address] Sep, [facility] [place] [facility] [address] [id number] [place] [address]- 4683 Sep, [facility] [address] [id number] [place] [address]- 4351 Sep, [facility] [place] [facility] [address] [id number] [place] [address]- 8598 Sep, [facility] [address] [id number] [place] [address]- 1468 Sep, [facility] [address] [id number] [place] [address]- 2684 Aug, [facility] [place] [facility] [address] [id number] [place] [address]- 0017 Aug, [facility] [address] [id number] [place] [address]- 4863 Aug, [facility] [address] [id number] [place] [address]- 6973 Aug, [facility] [address] [id number] [place] [address]- 4217 Aug, [facility] [address] [id number] [place] [address]- 6258 Aug, [facility] [place] [facility] [address] [id number] [place] [address]- 2686 Aug, [facility] [place] [facility] [address] [id number] [place] [address]- 9354 Aug, [facility] [place] [facility] [address] [id number] [place] [address]- 3230 Aug, [facility] [place] [facility] [address] [id number] [place] [address]- 8380 Aug, [facility] [place] [facility] [address] [id number] [place] [address]- 0348 Aug, [facility] [place] [facility] [address] [id number] [place] [address]- 2546 Aug, [facility] [place] [facility] [address] [id number] [place] [address]- 1555 Aug, [facility] [place] [facility] [address] [id number] [place] [address]- 7311 Aug, [facility] [place] [facility] [address] [id number] [place] [address]- 4417 Aug, [facility] [place] [facility] [address] [id number] [place] [address]- 5215 Aug, [facility] [place] [facility] [address] [id number] [place] [address]- 5328 Aug, [facility] [place] [facility] [address] [id number] [place] [address]- 6322 Jul, [facility] [place] [facility] [address] [id number] [place] [address]- 9529 Jul, [facility] [place] [facility] [address] [id number] [place] [address]- 5683 Jul, [facility] [place] [facility] [address] [id number] [place] [address]- 2308 Jul, [facility] [place] [facility] [address] [id number] [place] [address]- 3059 Jul, [facility] [place] [facility] [address] [id number] [address] 5330 Jul, [facility] [place] [facility] [address] [id number], [place] [address]- 6215 Jul, [facility] [place] [facility] [address] [id number] [place] 27 Jun, 2013 [facility] [place] [facility] [address] [id number] [place]70 20 Jun, 2013 [facility] [place] [facility] [address] [id number] [place] 1484 17 Jun, 2013 [facility] [place] [facility] [id number], [place] [address]- 8135 10 Jun, 2013 [facility] [id number], [place] [address]- 7425 Jun, [facility] [id number], [place] [address]- 7011 Jun, [facility] [id number], [place] [address]- 4700 05 Jun, 2013 [facility] [id number], [place] [address]- 3729 Jun, [facility] [id number], [place] [address]- 1623 May, [facility] [address], [place] [address]- 6291 May, [facility] [address], [place] [address]- 7458 May, [facility] [address], [place] [address]- 2488 May, [facility] [address], [place] [address]- 6790 May, [facility] [address], [place] [address]- 2900 May, [facility] [address], [place] [address] 1985 May, [facility] [id number], [place] [address] 8121 May, IMMUNIZATIONS No Known Immunizations SOCIAL HISTORY [...] [facility] [address] [facility] Surgical History bladder surgery-stretch [facility] 2003 Surgical History exploratory laparoscopy [facility] 1995 Surgical History amputation, toe (R great) Surgical History amputation, (R forefoot) 2015 Surgical History amputation, toe Left second 12/2016 Surgical History amputation, 4th left toe 02/2017 Hospitalization History Left foot cellulitis, left 2nd toe amputation-[facility] 12/23 Hospitalization History Surgery Hospitalizations
--- OUTSIDE RECORDS SUMMARY | 2018-08-22 09:32 | XMS REPORT ---
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 Professor Name Role Phone DOMITILA UMANA Unavailable PROBLEMS Type Condition ICD9-CM Code ACR03-UB Code Onset Dates Condition Status SNOMED Code Problem Type 2 diabetes mellitus with other specified complication E11.69 Active 176324314 Problem Other chronic pain G89.29 Active 01125577 Problem Status post amputation of toe of left foot Z89.422 Active 889334456 Problem Intrinsic eczema L20.84 Active 36693694 Problem Type 2 diabetes mellitus with other skin complications E11.628 Active 40142817 Problem Severe episode of recurrent major depressive disorder, without psychotic features F33.2 Active 86477982 Problem Type 2 diabetes mellitus with diabetic chronic 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 Active 273053768 Problem Type 2 diabetes mellitus with diabetic polyneuropathy E11.42 Active 193542239 Problem Pain in right foot M79.671 Active 58858494 Problem Pain in left foot M79.672 Active 08483572 Problem Tonsillolith J35.8 Active 4422316 Problem Chronic prescription opiate use Z79.891 Active 149138688 Problem Chronic migraine G43.709 Active 93926792 Problem Chronic kidney disease, stage III (moderate) N18.3 Active 536324085 Problem Irregular menstrual cycle N92.6 Active 72587446 Problem Moderate persistent asthma without complication J45.40 Active 507740741 Problem Obesity E66.9 Active 636387041 Problem Type 2 diabetes mellitus with foot ulcer E11.621 Active 74412506 Problem Subclinical hypothyroidism E03.9 Active 94013914 Problem Essential hypertension I10 Active 68474571 Problem DM neuro manif type II E11.49 Active 08029165 Problem Hypertriglyceridemia E78.1 Active 028349944 Problem Anxiety disorder, unspecified F41.9 Active 735335012 Problem History of amputation of hallux Z89.419 Active 014784134 ALLERGIES Substance Reaction Event Type Date Status Penicillin V Potassium Unknown Drug Allergy 15 May, 2017 Active SOCIAL HISTORY Never Assessed PLAN OF CARE Activity Details Follow Up [address] Hoskins after seeing Dr Rodriguez Reason: VITAL SIGNS Height 62 in 2017-03-08 Weight 336.1 lbs 2017-03-08 Temperature 98.4 degrees Fahrenheit 2017-03-08 Heart Rate 90 bpm 2017-03-08 Respiratory Rate 20 2017-03-08 BMI 61.47 kg/m2 2017-03-08 Blood pressure systolic 134 mmHg 2017-03-08 Blood pressure diastolic 80 mmHg 2017-03-08 MEDICATIONS Medication Instructions Dosage Frequency Start Date End Date Duration Status NovoLog Flexpen 100 UNIT/ML Subcutaneous 3 times a day 30 units 8h 30 Active Glucometer One Touch Ultra as directed Dec, Active cromolyn 4 % instill 2 drops into affected eye(s) by Ophthalmic route 2 times per day prn Jun, Active Clindamycin HCl 300 MG Orally every 8 hrs take along with 150mg capsule 1 capsule Nov, 14 days Active Metoprolol Tartrate 50 mg Orally Twice a day 1 tablet with food 12h Active Levemir Flexpen 100 UNIT/ML subcutaneously 2 times a day 50 units 12h 90 days Active Nystatin 100,000 unit/gram apply to the affected area(s) by Topical route 4-8 times per day as needed Jun, Active Metformin HCl 1000 MG Orally Twice a day 1 tablet with meals 12h May, Active Ibuprofen 200 mg Orally 3 times a day 4 tablet as needed 8h Active Lisinopril 40 mg Orally Once a day 1 tablet 24h Jul, 90 days Active Fenofibrate 160 MG Orally Once a day 1 tablet with a meal 24h May, 90 days Active Phenergan 25 MG Rectal every 4-6 hours as needed 1 suppository as needed Sep, Active Multivitamin 1 Tablet 1 time per day May, Active Albuterol Sulfate 90 mcg/actuation Inhalation every 4-6 hours as needed 2 puffs May, Active Hydrochlorothiazide 25 MG Orally Once a day 1 tablet 24h Active Sertraline HCl 50 mg Orally Once a day 1 tablet 24h 90 days Active Hydrocodone-Acetaminophen 5-325 MG Orally every 4- 6 hrs as needed 1 tablet February, Active Atorvastatin Calcium 80 MG Orally Once a day 1 tablet 24h Aug, 90 days Active Excedrin Migraine 250-250-65 MG Orally as directed 2 tablets as needed Active Test strips One Touch Ultra as directed 6h 15 Dec, 2016 Active Promethazine HCl 25 MG Orally every 4 hours 1 tablet as needed 4h 20 Jun, 2016 Active Montelukast Sodium 10 mg Orally Once a day 1 tablet in the evening 24h 90 days Active Gabapentin 300 MG Orally 3 times a day 1 capsule 8h Aug, 90 days Active RESULTS Name Result Date Reference Range Xray : Foot, Left 3 views (IN HOUSE) 2017-03-08 PROCEDURES Procedure Date Ordered Result Body Site X-RAY EXAM OF FOOT March 08, 2017 IMMUNIZATIONS No Known Immunizations MEDICAL (GENERAL) HISTORY [...] 2003 Surgical History exploratory laparoscopy [facility] [place] 1995 Surgical History amputation, toe (R great) Surgical History amputation, (R forefoot) 2014 Surgical History amputation, toe Left second 12/2016 Surgical History amputation, 4th left toe 02/2017 Hospitalization History Left foot cellulitis, left 2nd toe amputation-[facility] 12/23
--- OUTSIDE RECORDS SUMMARY | 2018-08-22 09:32 | XMS REPORT ---
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 Name Role Phone LUDIVINADEE DEE FAIRCHILDHANY Unavailable PROBLEMS Type Condition ICD9-CM Code HWG54-EM Code Onset Dates Condition Status SNOMED Code Problem Subclinical hypothyroidism E03.9 Active 95979834 Problem History of amputation of hallux Z89.419 Active 897711538 Problem Hypertriglyceridemia E78.1 Active 430178315 Problem Type 2 diabetes mellitus with other specified complication E11.69 Active 929720120 Problem Type 2 diabetes mellitus with diabetic polyneuropathy E11.42 Active 371244545 Problem Status post amputation of toe of left foot Z89.422 Active 262534222 Problem Pain in left foot M79.672 Active 81351187 Problem Other chronic pain G89.29 Active 14711250 Problem Ulcer of right heel L97.419 Active 953164928 Problem Intrinsic eczema L20.84 Active 59848574 Problem Irregular menstrual cycle N92.6 Active 83363303 Problem Type 2 diabetes mellitus with other skin complications E11.628 Active 18165427 Problem Type 2 diabetes mellitus with diabetic chronic 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 Active 811277244 Problem Chronic prescription opiate use Z79.891 Active 851449857 Problem Pain in right foot M79.671 Active 17581142 Problem Severe episode of recurrent major depressive disorder, without psychotic features F33.2 Active 22739278 Problem Tonsillolith J35.8 Active 7761838 Problem Chronic kidney disease, stage III (moderate) N18.3 Active 612977287 Problem Essential hypertension I10 Active 43590505 Problem Moderate persistent asthma without complication J45.40 Active 586111309 Problem Chronic migraine G43.709 Active 82966097 Problem Type 2 diabetes mellitus with foot ulcer E11.621 Active 11228223 Problem DM neuro manif type II E11.49 Active 32113050 Problem Anxiety disorder, unspecified F41.9 Active 807427854 Problem Obesity E66.9 Active 013828135 ALLERGIES No Information ENCOUNTERS Encounter Location Date Diagnosis [facility] [id number] [place] [address] 81516- 9417 February, [facility] [address] 25414- 7958 Jan, [facility] [address] 29202- 7475 30 Dec, 2017 Type 2 diabetes mellitus with diabetic polyneuropathy E11.42 [facility] [address] 47702- 8625 Dec, Type 2 diabetes mellitus with diabetic polyneuropathy E11.42 [place] [address] 86066- 1578 15 Dec, 2017 [place] [address] 10492- 7976 14 Dec, 2017 [facility] [id number] [place] [address] 29034- 4498 Dec, Chronic kidney disease, stage III (moderate) N18.3 [facility] [address] 29[address] -0296 09 Dec, 2017 Nausea R11.0 and Diarrhea, unspecified type R19.7 [facility] [id number] [place] [address] 10954- 3354 Dec, Chronic kidney disease, stage III (moderate) N18.3 and Type 2 diabetes mellitus with diabetic polyneuropathy E11.42 [facility] [id number] [place] [address] 55169- 6881 Dec, [facility] [address] 55540- 3989 Nov, Ulcer of right heel L97.419 and Type 2 diabetes mellitus with diabetic polyneuropathy E11.42 [facility] [id number] [place] [address] [id number] Nov, Dental examination Z01.20 [facility] [address] [address] Nov, Open wound of right foot, initial encounter S91.301A [facility] [id number] [place] [address] 93229 -4803 Nov, Open wound of right foot, initial encounter S91.301A ; Non- intractable vomiting with nausea, unspecified vomiting type R11.2 and BMI 60.0- 69.9, adult Z68.44 [facility] [id number] [place] [address] 85848- 1886 Nov, [place] [id number] [place] [address] 31668- 5214 16 Nov, 2017 Other chronic pain G89.29 [facility] [id number] [place] [address] 96760- 1044 Oct, Cellulitis of right lower limb L03.115 [facility] [id number] [place] [address] 57078- 5056 Oct, [place] [id number] [place] [address] 38152- 5379 Oct, [place] [address] [place] [address] 71738- 3390 Oct, Cat scratch W55.03XA ; Cellulitis of right lower limb L03.115 ; Acute nasopharyngitis J00 ; BMI 60.0-69.9, adult Z68.44 and Cough R05 [facility] [address] [place] [address] 31058- 7807 Oct, Cat scratch W55.03XA ; Cutaneous abscess of right lower extremity L02.415 and Cellulitis of right lower limb L03.115 [place] [address] [place] [address] 83673- 8154 Oct, Type 2 diabetes mellitus with diabetic polyneuropathy E11.42 [place] [id number] [place] [address] 54504- 8872 Oct, Other chronic pain G89.29 [place] [id number] [place] [address] 39890- 7806 Aug, [place] [id number] [place] [address] 24603- 6009 Jul, Other chronic pain G89.29 [place] [address] 23519- 5696 Jul, [place] [id number] [place] [address] 35281- 8909 Jul, Chronic kidney disease, stage III (moderate) N18.3 [place] [id number] [place] [address] 84276- 6054 Jul, Type 2 diabetes mellitus with diabetic polyneuropathy E11.42 ; Essential hypertension I10 ; Irregular menstrual cycle N92.6 ; Hypertriglyceridemia E78.1 ; Anxiety disorder, unspecified F41.9 ; Severe episode of recurrent major depressive disorder, without psychotic features F33.2 ; Tonsillolith J35.8 ; Intrinsic eczema L20.84 ; Subclinical hypothyroidism E03.9 ; Viral pharyngitis J02.9 and Encounter for immunization Z23 [place] [id number] [place] [address] 24710- 8817 13 Jun, 2017 Essential hypertension I10 [place] [id number] [place] [address] 72395- 2173 08 Jun, 2017 [place] [id number] [place] [address] 83621- 5685 Jun, [place] [id number] [place] [address] 52319- 5396 May, Moderate persistent asthma without complication J45.40 [place] [id number] [place] [address] 83557- 5161 May, Pain in right foot M79.671 ; Pain in left foot M79.672 ; Other chronic pain G89.29 and Chronic prescription opiate use Z79.891 [facility] [id number] [place] [address] 60228- 4264 May, [facility] [address] 10645- 7178 May, [facility] [id number] [place] [address] 20213- 8378 Apr, [facility] [address] 72659- 5448 Apr, Chronic migraine G43.709 [facility] [address] 73590- 8983 Apr, Essential hypertension I10 ; Hypertriglyceridemia E78.1 and Chronic migraine G43.709 [facility] [address] 04907- 0313 Apr, [facility] [id number] [place] [address] 82702- 1539 Apr, Sore throat J02.9 [facility] [id number] [place] [address] 50155- 9580 Apr, [facility] [id number] [place] [address] 46571- 0395 Mar, Strep pharyngitis J02.0 and Non-intractable vomiting with nausea, unspecified vomiting type R11.2 [facility] [id number] [place] [address] 65203- 0365 Mar, [facility] [id number] [place] [address] 71557- 1161 Mar, [facility] [id number] [place] [address] 14217- 0649 Mar, [facility] [id number] [place] [address] 37312- 6903 Mar, Type 2 diabetes mellitus with diabetic polyneuropathy E11.42 ; Moderate persistent asthma without complication J45.40 ; Status post amputation of toe of left foot Z89.422 ; Acute seasonal allergic rhinitis, unspecified trigger J30.2 and Left shoulder pain, unspecified chronicity M25.512 [place] [id number] [place] [address] 50379- 2207 Mar, [place] [id number] [place] [address] 66439- 4149 February, Pre-op evaluation Z01.818 ; Type 2 diabetes mellitus with diabetic polyneuropathy E11.42 and Type 2 diabetes mellitus with foot ulcer E11.621 [place] [address] 69429- 0954 February, [place] [address] 03672- 6443 February, [place] [address] 61178- 2735 February, Toe infection L08.9 and Type 2 diabetes mellitus with other specified complication E11.69 [place] [id number] [place] [address] 74567- 9450 February, [place] [id number] [place] [address] 01250- 3193 Jan, Type 2 diabetes mellitus with diabetic polyneuropathy E11.42 [place] [id number] [place] [address] 24693- 4801 Jan, [place] [id number] [place] [address] 37040- 2247 Jan, Right upper quadrant pain R10.11 and Intractable vomiting with nausea, unspecified vomiting type R11.2 [place] [id number] [place] [address] 01545- 2253 Jan, Hypertriglyceridemia E78.1 and Essential hypertension I10 [place] [address] 51182- 1742 Jan, Essential hypertension I10 ; Type 2 diabetes mellitus with diabetic polyneuropathy E11.42 and Hypertriglyceridemia E78.1 [facility] [address] 10339- 7534 Dec, Type 2 diabetes mellitus with diabetic polyneuropathy E11.42 [facility] [id number] [place] [address] 82364- 7078 Dec, Hypertriglyceridemia E78.1 ; Essential hypertension I10 ; Type 2 diabetes mellitus with diabetic polyneuropathy E11.42 ; Anxiety disorder , unspecified F41.9 and Moderate persistent asthma without complication J45.40 [facility] [address] 77604- 3008 Dec, Type 2 diabetes mellitus with diabetic polyneuropathy E11.42 [facility] [address] [id number] Dec, [facility] [address] 71858- 5786 Nov, [facility] [address] 11481- 8480 Nov, [facility] [address] 23296- 2532 Nov, [facility] [id number] [place] [address] 76694- 7135 Nov, Toe infection L08.9 [facility] [address] 65840- 0843 Nov, [facility] [address] 34764- 9490 Oct, History of amputation of hallux Z89.419 [facility] [address] 69646- 2329 Oct, Type 2 diabetes mellitus with diabetic polyneuropathy E11.42 [facility] [address] 42288- 0996 Oct, Type 2 diabetes mellitus with diabetic polyneuropathy E11.42 [facility] [address] [address]- 7770 Oct, Acute osteomyelitis of left foot M86.172 ; Pre-op exam Z01.818 and Type 2 diabetes mellitus with diabetic polyneuropathy E11.42 [facility] [address] [place] [address] 97107- 3696 Oct, Foot ulcer, left, with unspecified severity L97.529 ; Acute osteomyelitis of left foot M86.172 and Type 2 diabetes mellitus with diabetic polyneuropathy E11.42 [facility] [id number] [place] [address] 06522- 6641 Sep, [facility] [id number] [place] [address] 34832- 5480 Sep, Intractable vomiting with nausea, unspecified vomiting type R11.2 and Right upper quadrant pain R10.11 [facility] [id number] [place] [address] 55297- 5261 Aug, [facility] [id number] [place] [address] 79897- 4146 Jul, [facility] [id number] [place] [address] 21244- 3780 Jul, Preop examination Z01.818 [facility] [id number] [place] [address] 86441- 0736 Jul, [facility] [address] [place] [address] 65509- 0019 Jul, [facility] [id number] [place] [address] 85943- 7414 Jul, Chronic osteomyelitis of left foot M86.672 and Ulcer of left foot, with unspecified severity L97.529 [facility] [address] [place] [address] 42679- 0548 Jul, Non-pressure chronic ulcer of other part of left foot with unspecified severity L97.529 [facility] [id number] [place] [address] 85944- 4071 Jul, [facility] [id number] [place] [address] 82783- 1573 Jul, [facility] [id number] [place] [address] 49048- 8151 Jun, [facility] [id number] [place] [address] 35208- 7308 Jun, [facility] [id number] [place] [address] 01881- 8784 Jun, [facility] [id number] [place] [address] 06478- 2119 Jun, Right upper quadrant pain R10.11 [facility] [id number] [place] [address] 29277- 3466 Jun, [facility] [id number] [place] [address] 05978- 8876 Jun, Intractable vomiting with nausea, unspecified vomiting type R11.2 [facility] [id number] [place] [address] 50966- 4642 13 Jun, 2016 Right upper quadrant pain R10.11 ; Migraine with aura and with status migrainosus, not intractable G43.101 and Intractable vomiting with nausea, unspecified vomiting type R11.2 [facility] [id number] [place] [address] 58865- 2869 Jun, [facility] [id number] [place] [address] 56885- 9083 Jun, Gastroenteritis K52.9 [facility] [id number] [place] [address] 29210- 0324 May, [facility] [id number] [place] [address] 98211- 9596 May, Hypertriglyceridemia E78.1 ; Essential hypertension I10 ; Type 2 diabetes mellitus with diabetic polyneuropathy E11.42 ; Moderate persistent asthma without complication J45.40 ; Type 2 diabetes mellitus with foot ulcer E11.621 ; Other chronic pain G89.29 ; Pain in right leg M79.604 ; Pain of left leg M79.605 ; Rash and nonspecific skin eruption R21 and Anxiety disorder, unspecified F41.[address] 81467- 7169 May, Essential hypertension I10 ; Hypertriglyceridemia E78.1 ; Upper respiratory infection J06.9 ; Subclinical hypothyroidism E03.9 and Type 2 diabetes mellitus with diabetic polyneuropathy E11.[address] 94126- 6413 Apr, Hypertriglyceridemia E78.1 ; Subclinical hypothyroidism E03.9 ; Essential hypertension I10 and Type 2 diabetes mellitus with diabetic polyneuropathy E11.42 [place] [address] 09008- 8558 Mar, [place] [address] 03312- 3230 Mar, Ulcer of right heel L97.419 [place] [address] 61978- 3309 Mar, [place] [id number] [place] [address] 52551- 4929 Mar, [place] [address] 05916- 1195 February, [place] [address] 97343- 7885 February, Ulcer of right heel L97.419 and DM neuro manif type II E11.49 [place] [address] 54257- 6961 Jan, [place] [address] 89228- 2406 Jan, Ulcer of right heel L97.419 ; Type 2 diabetes mellitus with foot ulcer E11.621 and Non-pressure chronic ulcer of other part of left foot with unspecified severity L97.529 [facility] [id number] [place] [address] 63054- 3254 Jan, [facility] [id number] [place] [address] 75855- 5021 Jan, [place] [address] 46783- 3329 Jan, Infection of toenail L03.039 [place] [address] 66603- 4393 Jan, Blister of toe of left foot, initial encounter S90.425A and Type 2 diabetes mellitus with diabetic polyneuropathy E11.42 [place] [address] 02414- 4823 Jan, [facility] [id number] [place] [address] 32360 -6944 Jan, Sore throat J02.9 and Strep pharyngitis J02.0 [place] [id number] [place] [address] 56274- 8252 Dec, Type 2 diabetes mellitus with diabetic polyneuropathy E11.42 ; Upper respiratory infection J06.9 ; Cough R05 and Asthma exacerbation J45.901 [place] [id number] [place] [address] 35811- 5386 Oct, [place] [id number] [place] [address] 11122- 0190 Oct, [facility] [id number] [place] [address] 05970- 9917 Oct, [facility] [id number] [place] [address] 27706- 5773 Oct, [facility] [address] [place] [address]- 2085 Sep, [place] [id number] [place] [address] 11125- 8140 Aug, Anxiety disorder, unspecified F41.9 and Obesity E66.9 [place] [address] 37882- 4427 Aug, Moderate persistent asthma without complication J45.40 [place] [address] 37687- 6470 Aug, Anxiety disorder, unspecified F41.[address] 17769- 0953 Aug, Encounter for immunization Z23 ; Chronic migraine G43.709 ; Hypertriglyceridemia E78.1 ; Type 2 diabetes mellitus with diabetic polyneuropathy E11.42 ; Moderate persistent asthma without complication J45.40 and Morbid obesity E66.01 [place] [address] 82119- 8955 Jul, [place] [address] 78773- 7338 Jul, [place] [address] 17519- 0346 Jul, [place] [id number] [place] [address] 70615- 7274 Jul, Subclinical hypothyroidism E03.9 [place] [address] 80901- 6986 Jun, Essential hypertension, benign 401.1 ; Diabetic ulcer of lower extremity 250.80 ; Asthma 493.90 ; Diabetes mellitus type II, uncontrolled 250.02 and Hyperlipidemia associated with type 2 diabetes mellitus 250.80 [place] [id number] [place] [address] 56046- 2112 Jun, [place] [address] 53911- 6274 Jun, [facility] [address] [address]- 4402 May, [facility] [id number] [place] [address] 60305- 9162 Apr, [facility] [id number] [place] [address] 82286- 8556 Apr, Viral upper respiratory infection 465.9 and Asthma 493.90 [facility] [id number] [place] [address] 18618- 6689 Mar, Abnormal ankle brachial index 796.4 [facility] [id number] [place] [address] 65299- 0804 February, [facility] [id number] [place] [address] 78054- 6129 February, Essential hypertension, benign 401.1 [facility] [id number] [place] [address] 36243- 3496 February, Diabetic peripheral neuropathy 250.60 ; Ulcer of heel and midfoot 707.14 and Decreased pedal pulses 785.9 [facility] [id number] [place] [address] 75525- 0969 February, [facility] [id number] [place] [address] 62383- 7726 February, [facility] [address] [address]- 0832 Jan, [facility] [address] [address]- 2971 Jan, [facility] [id number] [place] [address] 99293- 6339 Dec, [facility] [address] [address]- 1630 Dec, [facility] [id number] [place] [address] 93966- 1638 Nov, [facility] [place] [facility] [address] [id number] [place] [address]- 4235 Nov, 2014 [facility] [place] [facility] [address] [id number] [place] [address]- 1996 Nov, 2014 [facility] [place] [facility] [address] [id number] [place] [address]- 4037 Nov, 2014 [facility] [place] [facility] [address] [id number] [place] [address]- 3258 Nov, 2014 [facility] [place] [facility] [address] [id number] [place] [address]- 5703 Nov, [facility] [place] [facility] [address] [id number] [place] [address]- 9859 Nov, [facility] [place] [facility] [address] [id number] [place] [address]- 0887 Nov, [facility] [place] [facility] [address] [id number] [place] [address]- 8209 Nov, [facility] [place] [facility] [address] [id number] [place] [address]- 8243 Oct, [facility] [place] [facility] [address] [id number] [place] [address]- 0755 Oct, [facility] [place] [facility] [address] [id number] [place] [address]- 8192 Oct, [facility] [place] [facility] [address] [id number] [place] [address]- 0982 Oct, [facility] [place] [facility] [address] [id number] [place] [address]- 9877 Oct, [facility] [place] [facility] [address] [id number] [place] [address]- 2507 Oct, [facility] [place] [facility] [address] [id number] [place] [address] Oct, [facility] [place] [facility] [address] [id number] [place] [address] Oct, [facility] [address] [id number] [place] [address] Oct, [facility] [address] [id number] [place] [address] Oct, [facility] [address] [id number] [place] [address] Oct, [facility] [address] [id number] [place] [address] Oct, [facility] [address] [id number] [place] [address] Oct, [facility] [address] [id number] [place] [address] Sep, [facility] [address] [id number] [place] [address] Sep, [facility] [address] [id number] [place] [address] Sep, [facility] [address] [id number] [place] [address] Sep, [facility] [address] [id number] [place] [address] Sep, [facility] [address] [id number] [place] [address] Sep, [facility] [address] [id number] [place] [address] Sep, [facility] [place] [facility] [address] [id number] [place] [address] Sep, [facility] [address] [id number] [place] [address] Sep, [facility] [address] [id number] [place] [address] Sep, [facility] [place] [facility] [address] [id number] [place] [address] Sep, [facility] [place] [facility] [address] [id number] [place] [address] 2340 Sep, [facility] [place] [facility] [address] [id number] [place] [address]113 Sep, [facility] [place] [facility] [address] [id number] [place] [address] Sep, [facility] [place] [facility] [address] [id number] [place] [address] Sep, [facility] [place] [facility] [address] [id number] [place] [address]991 Sep, [facility] [place] [facility] [address] [id number] [place] [address] 1686 Aug, [facility] [place] [facility] [address] [id number] [place] [address] 8395 Aug, [facility] [place] [facility] [address] [id number] [place] [address]- 1275 Aug, [facility] [place] [facility] [address] [id number] [place] [address]- 0832 Aug, [facility] [place] [facility] [address] [id number] [place] [address]- 6732 Aug, [facility] [place] [facility] [address] [id number] [address] Aug, [facility] [place] [facility] [address] [id number] [place] [address]- 8513 Aug, [facility] [place] [facility] [address] [id number] [place] [address]- 7980 Aug, [facility] [place] [facility] [address] [id number] [place] [address] Jul, [facility] [place] [facility] [address] [id number] [address] Jul, [facility] [place] [facility] [address] [id number] [place] [address]- 1073 30 Jul, 2014 [facility] [place] [facility] [address] [id number] [place] [address]- 2595 Jul, [facility] [place] [facility] [address] [id number] [place] [address]- 0301 Jul, [facility] [place] [facility] [address] [id number] [place] [address]- 4815 Jun, [facility] [place] [facility] [address] [id number] [place] [address]- 0905 Jun, [facility] [place] [facility] [address] [id number] [place] [address]- 7457 Jun, [facility] [place] [facility] [address] [id number] [place] [address]- 0878 Jun, [facility] [place] [facility] [address] [id number] [place] [address]- 3631 Jun, [facility] [place] [facility] [address] [id number] [place] [address]- 1055 May, [facility] [place] [facility] [address] [id number] [place] [address]- 3401 May, [facility] [place] [facility] [address] [id number] [place] [address]- 7559 Apr, [facility] [place] [facility] [address] [id number] [place] [address]- 2039 Apr, [facility] [place] [facility] [address] [id number] [place] [address]- 5987 Apr, [facility] [place] [facility] [address] [id number] [place] [address]- 1939 Apr, [facility] [place] [facility] [address] [id number] [place] [address]- 9828 Apr, [facility] [place] [facility] [address] [id number] [place] [address]- 2742 Apr, [facility] [place] [facility] [address] [id number] [place] [address]- 1760 Mar, [facility] [place] [facility] [address] [id number] [place] [address]- 2282 Mar, [facility] [place] [facility] [address] [id number] [place] [address]- 9227 Mar, [facility] [place] [facility] [address] [id number] [place] [address]- 3622 Mar, [facility] [place] [facility] [address] [id number] [place] [address]- 4968 Mar, [facility] [place] [facility] [address] [id number] [place] [address]- 7353 Mar, [facility] [place] [facility] [address] [id number] [place] [address]- 2594 Mar, [facility] [place] [facility] [address] [id number] [place] [address]- 6421 Mar, [facility] [place] [facility] [address] [id number] [place] [address]- 4006 Mar, [facility] [place] [facility] [address] [id number] [place] [address]- 6438 Mar, [facility] [place] [facility] [address] [id number] [place] [address]- 0781 Mar, [facility] [place] [facility] [address] [id number] [place] [address]- 4630 Mar, [facility] [place] [facility] [address] [id number] [place] [address]- 7166 Mar, [facility] [place] [facility] [address] [id number] [place] [address]- 8485 Mar, [facility] [place] [facility] [address] [id number] [place] [address]- 0567 Mar, [facility] [place] [facility] [address] [id number] [place] [address]- 6687 Mar, [facility] [place] [facility] [address] [id number] [place] [address]- 5325 February, [facility] [place] [facility] [address] [id number] [place] [address]- 7203 February, [facility] [place] [facility] [address] [id number] [place] [address]- 3004 February, [facility] [place] [facility] [address] [id number] [place] [address]- 8448 February, [facility] [place] [facility] [address] [id number] [place] [address]- 6480 February, [facility] [place] [facility] [address] [id number] [place] [address]- 8362 February, [facility] [place] [facility] [address] [id number] [place] [address]- 3816 February, [facility] [place] [facility] [address] [id number] [place] [address]- 4825 February, [facility] [place] [facility] [address] [id number] [place] [address]- 1404 Jan, [facility] [place] [facility] [address] [id number] [place] [address]- 6732 Jan, [facility] [place] [facility] [address] [id number] [place] [address]- 8426 Dec, [facility] [place] [facility] [address] [id number] [place] [address]- 1277 Dec, [facility] [place] [facility] [address] [id number] [place] [address]- 2598 Dec, [facility] [place] [facility] [address] [id number] [place] [address]- 7919 Dec, [facility] [place] [facility] [address] [id number] [place] [address]- 0692 24 Dec, 2013 [facility] [place] [facility] [address] [id number] [place] [address]- 0441 24 Dec, 2013 [facility] [place] [facility] [address] [id number] [place] [address]- 7058 19 Dec, 2013 [facility] [place] [facility] [address] [id number] [place] [address]- 8046 19 Dec, 2013 [facility] [place] [facility] [address] [id number] [place] [address]- 0608 17 Dec, 2013 [facility] [place] [facility] [address] [id number] [place] [address]- 1042 17 Dec, 2013 [facility] [place] [facility] [address] [id number] [place] [address]- 9164 14 Dec, 2013 [facility] [place] [facility] [address] [id number] [place] [address]- 2544 14 Dec, 2013 [facility] [place] [facility] [address] [id number] [place] [address]- 7608 Dec, [facility] [place] [facility] [address] [id number] [place] [address]- 5672 Dec, [facility] [place] [facility] [address] [id number] [place] [address]- 7969 Nov, [facility] [place] [facility] [address] [id number] [place] [address]- 8182 Nov, [facility] [place] [facility] [address] [id number] [place] [address]- 2585 Oct, [facility] [place] [facility] [address] [id number] [place] [address]- 3429 Oct, [facility] [place] [facility] [address] [id number] [place] [address]- 9892 Oct, [facility] [place] [facility] [address] [id number] [place] [address]- 8910 Oct, [facility] [place] [facility] [address] [id number] [place] [address]- 0609 Oct, [facility] [address] [id number] [place] [address]- 6965 Oct, [facility] [address] [id number] [place] [address]- 3523 Oct, [facility] [address] [id number] [place] [address]- 6992 Sep, [facility] [address] [id number] [place] [address]- 3848 Sep, [facility] [address] [id number] [place] [address]- 2141 Sep, [facility] [address] [id number] [place] [address]- 5298 Sep, [facility] [address] [id number] [place] [address]- 0747 Sep, [facility] [address] [id number] [place] [address]- 7020 Sep, [facility] [address] [id number] [place] [address]- 5731 Sep, [facility] [address] [id number] [place] [address]- 5601 Sep, [facility] [address] [id number] [place] [address]- 5858 Sep, [facility] [address] [id number] [place] [address]- 9183 Sep, [facility] [place] [facility] [address] [id number] [place] [address]- 3152 Sep, [facility] [place] [facility] [address] [id number] [place] [address]- 6280 Sep, [facility] [address] [id number] [place] [address]- 4555 Sep, [facility] [place] [facility] [address] [id number] [place] [address]- 1806 16 Sep, 2013 [facility] [place] [facility] [address] [id number] [place] [address]- 9087 Sep, [facility] [place] [facility] [address] [id number] [place] [address]- 0978 Sep, [facility] [place] [facility] [address] [id number] [place] [address]- 9830 Sep, [facility] [place] [facility] [address] [id number] [place] [address]- 9401 Sep, [facility] [place] [facility] [address] [id number] [place] [address]- 0550 Sep, [facility] [place] [facility] [address] [id number] [place] [address]- 1836 Aug, [facility] [place] [facility] [address] [id number] [place] [address]- 2204 Aug, [facility] [place] [facility] [address] [id number] [place] [address]- 5428 Aug, [facility] [place] [facility] [address] [id number] [place] [address]- 0750 Aug, [facility] [place] [facility] [address] [id number] [place] [address]- 9579 Aug, [facility] [place] [facility] [address] [id number] [place] [address]- 7203 Aug, [facility] [place] [facility] [address] [id number] [place] [address]- 4466 Aug, [facility] [place] [facility] [address] [id number] [place] [address]- 6583 Aug, [facility] [place] [facility] [address] [id number] [place] [address]- 8543 Aug, [facility] [place] [facility] [address] [id number] [place] [address]- 1084 Aug, [facility] [place] [facility] [address] [id number] [place] [address]- 6927 Aug, [facility] [place] [facility] [address] [id number] [place] [address]- 2452 Aug, [facility] [place] [facility] [address] [id number] [place] [address]- 5062 Aug, [facility] [place] [facility] [address] [id number] [place] [address]- 3896 Aug, [facility] [place] [facility] [address] [id number] [place] [address]- 4584 Aug, [facility] [place] [facility] [address] [id number] [place] [address]- 8649 Aug, [facility] [place] [facility] [address] [id number] [place] [address]- 0267 Aug, [facility] [place] [facility] [address] [id number] [place] [address]- 0732 Jul, [facility] [place] [facility] [address] [id number] [place] [address]- 1942 Jul, [facility] [place] [facility] [address] [facility] [id number] [place] [address]- 7051 Jul, [facility] [place] [facility] [address] [id number] [place] [address]- 4599 Jul, [facility] [place] [facility] [address] [id number] [place] [address]- 9855 Jul, [facility] [place] [facility] [address] [id number] [place] [address]- 8674 Jul, [facility] [place] [facility] [address] [facility] [id number] [place] [address]- 4223 Jul, [facility] [place] [facility] [address] [id number] [place] [address] Jun, [facility] [address] [id number] [place] [address]- 4797 20 Jun, 2012 [facility] [address] [id number] [place] [address]- 8893 17 Jun, 2012 [facility] [address] [facility] [id number] [place] [address]- 7844 10 Jun, 2012 [facility] [address] [id number] [place] [address]- 3278 06 Jun, 2012 [facility] [address] [id number] [place] [address]- 8389 06 Jun, 2012 [facility] [address] [id number] [place] [address]- 0179 05 Jun, 2012 [facility] [address] [facility] [id number] [place] [address]- 8872 03 Jun, 2012 [facility] [address] [facility] [id number], [place] [address]- 2331 27 May, 2013 [facility] [address] [facility] [id number] [address]- 0446 May, [facility] [address] [facility] [id number], [place] [address]- 8285 15 May, 2013 [facility] [address] [facility] [id number], [place] [address]- 7195 14 May, 2013 [facility] [address] [facility] [id number], [place] [address]- 7480 May, [facility] [address] [facility] [id number], [place] [address]- 1378 May, [facility] [address] [facility] [id number], [place] [address]- 4915 09 May, 2013 [facility] [address] [facility] [id number], [place] [address]- 1518 08 May, 2013 IMMUNIZATIONS No Known Immunizations SOCIAL HISTORY Never Assessed REASON FOR VISIT PA- Sumitriptan -CLogiudiciRN PLAN OF CARE VITAL SIGNS MEDICATIONS Medication Instructions Dosage Frequency Start Date End Date Duration Status Rizatriptan Benzoate 10 mg Orally PRN 1 tablet as needed at onset of headache , may repeat in 2 hours x 2 if needed Apr, Active RESULTS No Results PROCEDURES [...] appendectomy [facility] 1995 Surgical History salpingectomy [facility] Surgical History bladder surgery-stretch [facility] 2003 Surgical History exploratory laparoscopy [facility] 1995 Surgical History amputation, toe (R great) Surgical History amputation, (R forefoot) 2015 Surgical History amputation, toe Left second 12/2016 Surgical History amputation, 4th left toe 02/2017 Hospitalization History Left foot cellulitis, left 2nd toe amputation-[facility] 12/23 Hospitalization History Surgery Hospitalizations
--- NOTE | 2018-08-22 09:33 | Diagnostic Imaging Report ---
INDICATION: Calf swelling. EXAMINATION: Portable chest at 9:06 AM. FINDINGS: The heart size and pulmonary vascularity are normal. The lungs are clear. There are no effusions or pneumothoraces. IMPRESSION: Negative chest. Dictated by: Dictated on workstation # [id number]
--- OUTSIDE RECORDS SUMMARY | 2018-08-22 09:33 | XMS REPORT ---
Author Author LUDIVINA STEPHANIE [facility] Address [address] [place] [address] Care Team Providers Care Heating Element Builder Name Role Phone DEE DEE FLORENCEHANY Unavailable PROBLEMS Type Condition ICD9-CM Code [id number] Code Onset Dates Condition Status SNOMED Code Problem Type 2 diabetes mellitus with foot ulcer E11.621 Active 97928300 Problem History of amputation of hallux Z89.419 Active 084067590 Problem DM neuro manif type II E11.49 Active 12466326 Problem Pain in right foot M79.671 Active 52149879 Problem Pain in left foot M79.672 Active 25066619 Problem Status post amputation of toe of left foot Z89.422 Active 763008560 Problem Type 2 diabetes mellitus with other specified complication E11.69 Active 980247697 Problem Other chronic pain G89.29 Active 62869814 Problem Chronic prescription opiate use Z79.891 Active 460997708 Problem Irregular menstrual cycle N92.6 Active 33115632 Problem Moderate persistent asthma without complication J45.40 Active 393361220 Problem Essential hypertension I10 Active 16182302 Problem Type 2 diabetes mellitus with diabetic polyneuropathy E11.42 Active 925139708 Problem Hypertriglyceridemia E78.1 Active 087690846 Problem Type 2 diabetes mellitus with other skin complications E11.628 Active 97326753 Problem Chronic migraine G43.709 Active 07650754 Problem Anxiety disorder, unspecified F41.9 Active 328330152 Problem Subclinical hypothyroidism E03.9 Active 85244644 Problem Obesity E66.9 Active 140395034 ALLERGIES No Information SOCIAL HISTORY Never Assessed [...] [facility] exploratory laparoscopy [facility] 1995 Surgical History amputation, toe (R great) Surgical History amputation, (R forefoot) 2014 Surgical History amputation, toe Left second 12/2016 Surgical History amputation, 4th left toe 02/2017 Hospitalization History Left foot cellulitis, left 2nd toe amputation-[facility] 12/23
--- OUTSIDE RECORDS SUMMARY | 2018-08-22 09:33 | XMS REPORT ---
Author Author JERMAIN BROWN Organization [facility] Address [address] [place] [address] Care Team Providers Care Juice Bar Team Member Name Role Phone JERMAIN BROWN Unavailable PROBLEMS Type Condition ICD9-CM Code CPR56-CA Code Onset Dates Condition Status SNOMED Code Problem Type 2 diabetes mellitus with foot ulcer E11.621 Active 97521906 Problem History of amputation of hallux Z89.419 Active 460810666 Problem DM neuro manif type II E11.49 Active 75860263 Problem Pain in right foot M79.671 Active 43252463 Problem Pain in left foot M79.672 Active 75312467 Problem Status post amputation of toe of left foot Z89.422 Active 583158967 Problem Type 2 diabetes mellitus with other specified complication E11.69 Active 675160137 Problem Other chronic pain G89.29 Active 37677882 Problem Chronic prescription opiate use Z79.891 Active 313160851 Problem Irregular menstrual cycle N92.6 Active 55583901 Problem Moderate persistent asthma without complication J45.40 Active 883700302 Problem Essential hypertension I10 Active 65120349 Problem Type 2 diabetes mellitus with diabetic polyneuropathy E11.42 Active 825371346 Problem Hypertriglyceridemia E78.1 Active 515208303 Problem Type 2 diabetes mellitus with other skin complications E11.628 Active 07079336 Problem Chronic migraine G43.709 Active 70534346 Problem Anxiety disorder, unspecified F41.9 Active 705692274 Problem Subclinical hypothyroidism E03.9 Active 11668051 Problem Obesity E66.9 Active 877289951 ALLERGIES Unknown Allergies SOCIAL HISTORY No smoking Hx information available PLAN OF CARE Activity Details Follow Up 2 Weeks Reason: VITAL SIGNS Height 62 in 2016-11-06 Blood pressure systolic 116 mmHg 2016-11-06 Blood pressure diastolic 72 mmHg 2016-11-06 MEDICATIONS Unknown Medications RESULTS Name Result Date Reference Range Xray : Foot, Left 3 views (IN HOUSE) 2016-11-06 PROCEDURES Procedure Date Ordered Related Diagnosis Body Site DEBRIDE SKIN/TISSUE Nov 06, 2016 Office Visit, Est Pt., Level 3 Nov 06, 2016 X-RAY EXAM OF FOOT Nov 06, 2016 IMMUNIZATIONS No Known Immunizations
--- OUTSIDE RECORDS SUMMARY | 2018-08-22 09:33 | XMS REPORT ---
Author Author DOMITILA UMANA Organization [facility] Address [address] [place] [address] Care Team Providers Care Estimation Manager Name Role Phone DOMITILA UMANA Unavailable PROBLEMS Type Condition ICD9-CM Code WUH97-AM Code Onset Dates Condition Status SNOMED Code Problem Type 2 diabetes mellitus with other specified complication E11.69 Active 616301972 Problem Other chronic pain G89.29 Active 42263867 Problem Status post amputation of toe of left foot Z89.422 Active 072383109 Problem Intrinsic eczema L20.84 Active 73083847 Problem Type 2 diabetes mellitus with other skin complications E11.628 Active 11272148 Problem Severe episode of recurrent major depressive disorder, without psychotic features F33.2 Active 87563482 Problem Type 2 diabetes mellitus with diabetic chronic 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 Active 178059589 Problem Type 2 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 Active 844685249 Problem Pain in right foot M79.671 Active 67650516 Problem Pain in left foot M79.672 Active 96059557 Problem Tonsillolith J35.8 Active 4983172 Problem Chronic prescription opiate use Z79.891 Active 584151139 Problem Chronic migraine G43.709 Active 42063956 Problem Chronic kidney disease, stage III (moderate) N18.3 Active 611537148 Problem Irregular menstrual cycle N92.6 Active 91807017 Problem Moderate persistent asthma without complication J45.40 Active 287265855 Problem Obesity E66.9 Active 567172548 Problem Type 2 diabetes mellitus with foot ulcer E11.621 Active 50959585 Problem Subclinical hypothyroidism E03.9 Active 57501075 Problem Essential hypertension I10 Active 01271751 Problem DM neuro manif type II E11.49 Active 42530301 Problem Hypertriglyceridemia E78.1 Active 680299938 Problem Anxiety disorder, unspecified F41.9 Active 676324710 Problem History of amputation of hallux Z89.419 Active 714311915 ALLERGIES Substance Reaction Event Type Date Status Penicillin V Potassium Unknown Drug Allergy 06 [place], 2017 Active SOCIAL HISTORY Never Assessed PLAN OF CARE Activity Details Follow Up 2 Weeks with PCP [place] Reason: VITAL SIGNS Height 62 in 2017-03-30 Weight 336.7 lbs 2017-03-30 Temperature 98.6 degrees Fahrenheit 2017-03-30 Heart Rate 88 bpm 2017-03-30 Respiratory Rate 20 2017-03-30 BMI 61.58 kg/m2 2017-03-30 Blood pressure systolic 118 mmHg 2017-03-30 Blood pressure diastolic 70 mmHg 2017-03-30 MEDICATIONS Medication Instructions Dosage Frequency Start Date End Date Duration Status Glucometer One Touch Ultra as directed Dec, Active Ibuprofen 200 mg Orally 3 times a day 4 tablet as needed 8h Active Atorvastatin Calcium 80 MG Orally Once a day 1 tablet 24h Aug, 90 days Active Gabapentin 300 MG Orally 3 times a day 1 capsule 8h Aug, 90 days Active Phenergan 25 MG Rectal every 4-6 hours as needed 1 suppository as needed Sep, Active Test strips One Touch Ultra as directed 6h Dec, Active Lisinopril 40 mg Orally Once a day 1 tablet 24h Jul, 90 days Active Excedrin Migraine 250-250-65 MG Orally as directed 2 tablets as needed Active Levemir Flexpen 100 UNIT/ML subcutaneously 2 times a day 50 units 12h 90 days Active Albuterol Sulfate 90 mcg/actuation Inhalation every 4-6 hours as needed 2 puffs May, Active Promethazine HCl 25 MG Orally every 4 hours 1 tablet as needed 4h 20 Jun, 2016 Active Metoprolol Tartrate 50 mg Orally Twice a day 1 tablet with food 12h Active Hydrocodone-Acetaminophen 5-325 MG Orally every 4- 6 hrs as needed 1 tablet February, Active Hydrochlorothiazide 25 MG Orally Once a day 1 tablet 24h Active Fenofibrate 160 MG Orally Once a day 1 tablet with a meal 24h May, 90 days Active Cromolyn Sodium 4 % Ophthalmic 2 times a day 2 drops into affected eye as needed 12h February, Active Metformin HCl 1000 MG Orally Twice a day 1 tablet with meals 12h May, Active Sertraline HCl 50 mg Orally Once a day 1 tablet 24h 90 days Active NovoLog Flexpen 100 UNIT/ML Subcutaneous 3 times a day 30 units 8h 30 Active Nystatin 100,000 unit/gram apply to the affected area(s) by Topical route 4-8 times per day as needed Jun, Active Montelukast Sodium 10 mg Orally Once a day 1 tablet in the evening 24h 90 days Active Multivitamin 1 Tablet 1 time per day May, Active Loratadine 10 mg Orally Once a day 1 tablet 24h Mar, Aug, 30 day(s) Active RESULTS No Results PROCEDURES No [...] Left foot cellulitis, left 2nd toe amputation-[facility] 12/23
--- OUTSIDE RECORDS SUMMARY | 2018-08-22 09:33 | XMS REPORT ---
Author Author LUDIVINA STEPHANIE [facility] Address [address] [place] [address] Care Team Providers Care Temperature Regulator Pyrometer Name Role Phone LUDIVINADEE DEE FAIRCHILDHANY Unavailable PROBLEMS Type Condition ICD9-CM Code [id number] Code Onset Dates Condition Status SNOMED Code Problem Subclinical hypothyroidism E03.9 Active 77215880 Problem History of amputation of hallux Z89.419 Active 696654117 Problem Hypertriglyceridemia E78.1 Active 382452775 Problem Type 2 diabetes mellitus with other specified complication E11.69 Active 120424472 Problem Type 2 diabetes mellitus with diabetic polyneuropathy E11.42 Active 259501235 Problem Status post amputation of toe of left foot Z89.422 Active 995655660 Problem Pain in left foot M79.672 Active 98612031 Problem Other chronic pain G89.29 Active 00666192 Problem Ulcer of right heel L97.419 Active 765681272 Problem Intrinsic eczema L20.84 Active 95738271 Problem Irregular menstrual cycle N92.6 Active 70104381 Problem Type 2 diabetes mellitus with other skin complications E11.628 Active 22732078 Problem Type 2 diabetes mellitus with diabetic chronic 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 Active 347525426 Problem Chronic prescription opiate use Z79.891 Active 057950701 Problem Pain in right foot M79.671 Active 61787682 Problem Severe episode of recurrent major depressive disorder, without psychotic features F33.2 Active 61421019 Problem Tonsillolith J35.8 Active 8778459 Problem Chronic kidney disease, stage III (moderate) N18.3 Active 216059479 Problem Essential hypertension I10 Active 07377707 Problem Moderate persistent asthma without complication J45.40 Active 441702920 Problem Chronic migraine G43.709 Active 42955457 Problem Type 2 diabetes mellitus with foot ulcer E11.621 Active 05387848 Problem DM neuro manif type II E11.49 Active 72142580 Problem Anxiety disorder, unspecified F41.9 Active 117366842 Problem Obesity E66.9 Active 725333236 ALLERGIES No Information ENCOUNTERS Encounter Location Date Diagnosis [facility], [place] [id number] [place] [address] 53220- 8116 February, [facility], [place] [address] 00825- 2872 Dec, [facility], [place] [address] 48214- 9877 Dec, Type 2 diabetes mellitus with diabetic polyneuropathy E11.42 [facility], [place] [address] 51294- 6550 15 Dec, 2017 [place] [address] 90055- 2193 14 Dec, 2017 [place] [address] 00928- 4339 13 Dec, 2017 Chronic kidney disease, stage III (moderate) N18.3 [facility] [id number] [place] [address] 26089 -2783 Dec, Nausea R11.0 and Diarrhea, unspecified type R19.7 [facility], [place] [address] 54027- 7311 07 Dec, 2017 Chronic kidney disease, stage III (moderate) N18.3 and Type 2 diabetes mellitus with diabetic polyneuropathy E11.42 [facility], [place] [id number] [place] [address] 90809- 0554 Dec, [facility], [place] [id number] [place] [address] 74201- 1900 Nov, Ulcer of right heel L97.419 and Type 2 diabetes mellitus with diabetic polyneuropathy E11.42 [facility] [id number] [place] [address] [id number] Nov, Dental examination Z01.20 [facility], [place] [id number] [place] [address] 81999- 4235 Nov, Open wound of right foot, initial encounter S91.301A [facility] [address] [place] [address] 13984 -1646 Nov, Open wound of right foot, initial encounter S91.301A ; Non- intractable vomiting with nausea, unspecified vomiting type R11.2 and BMI 60.0- 69.9, adult Z68.44 [facility], [place] [id number] [place] [address] 41172- 8322 Nov, [facility], [place] [id number] [place] [address] 97297- 2202 Nov, Other chronic pain G89.29 [place] [address] 71810- 6653 Oct, Cellulitis of right lower limb L03.115 [place] [id number] [place] [address] 02631- 7020 Oct, [place] [id number] [place] [address] 66160- 3309 Oct, [place] [id number] [place] [address] 18343- 5718 Oct, Cat scratch W55.03XA ; Cellulitis of right lower limb L03.115 ; Acute nasopharyngitis J00 ; BMI 60.0-69.9, adult Z68.44 and Cough R05 [place] [id number] [place] [address] 58743- 5091 Oct, Cat scratch W55.03XA ; Cutaneous abscess of right lower extremity L02.415 and Cellulitis of right lower limb L03.115 [place] [id number] [place] [address] 12114- 1009 Oct, Type 2 diabetes mellitus with diabetic polyneuropathy E11.42 [place] [id number] [place] [address] 31394- 8782 Oct, Other chronic pain G89.29 [place] [address] 08848- 2513 Aug, [place] [address] 18394- 7443 Jul, Other chronic pain G89.29 [place] [address] 49608- 3728 Jul, [place] [address] 34042- 8818 Jul, Chronic kidney disease, stage III (moderate) N18.3 [place] [address] 80988- 0980 Jul, Type 2 diabetes mellitus with diabetic polyneuropathy E11.42 ; Essential hypertension I10 ; Irregular menstrual cycle N92.6 ; Hypertriglyceridemia E78.1 ; Anxiety disorder, unspecified F41.9 ; Severe episode of recurrent major depressive disorder, without psychotic features F33.2 ; Tonsillolith J35.8 ; Intrinsic eczema L20.84 ; Subclinical hypothyroidism E03.9 ; Viral pharyngitis J02.9 and Encounter for immunization Z23 [place] [address] 02898- 7948 13 Jun, 2017 Essential hypertension I10 [place] [address] 18812- 7637 08 Jun, 2017 [place] [address] 52992- 1705 Jun, [place] [address] 03779- 5091 May, Moderate persistent asthma without complication J45.40 [place] [address] 71633- 8714 May, Pain in right foot M79.671 ; Pain in left foot M79.672 ; Other chronic pain G89.29 and Chronic prescription opiate use Z79.891 [place] [address] 09569- 0209 May, [facility], [place] [id number] [place] [address] 89130- 5726 May, [facility], [place] [id number] [place] [address] 00412- 9062 Apr, [facility], [place] [id number] [place] [address] 66628- 7759 Apr, Chronic migraine G43.709 [place] [id number] [place] [address] 21922- 2800 Apr, Essential hypertension I10 ; Hypertriglyceridemia E78.1 and Chronic migraine G43.709 [place] [address] 88039- 6539 Apr, [place] [id number] [place] [address] 51449- 8939 Apr, Sore throat J02.9 [place] [id number] [place] [address] 29185- 4348 Apr, [facility], [place] [id number] [place] [address] 82938- 6525 Mar, Strep pharyngitis J02.0 and Non-intractable vomiting with nausea, unspecified vomiting type R11.2 [place] [id number] [place] [address] 69381- 9453 Mar, [place] [id number] [place] [address] 14318- 6282 Mar, [facility], [place] [id number] [place] [address] 18964- 5305 Mar, [place] [id number] [place] [address] 69663- 6086 Mar, Type 2 diabetes mellitus with diabetic polyneuropathy E11.42 ; Moderate persistent asthma without complication J45.40 ; Status post amputation of toe of left foot Z89.422 ; Acute seasonal allergic rhinitis, unspecified trigger J30.2 and Left shoulder pain, unspecified chronicity M25.512 [facility], [place] [address] [address]- 4180 Mar, [facility], [place] [id number] [place] [address] 40520- 9122 February, Pre-op evaluation Z01.818 ; Type 2 diabetes mellitus with diabetic polyneuropathy E11.42 and Type 2 diabetes mellitus with foot ulcer E11.621 [place] [id number] [place] [address] 20797- 8125 February, [place] [id number] [place] [address] 51246- 1822 February, [place] [id number] [place] [address] 29811- 2969 February, Toe infection L08.9 and Type 2 diabetes mellitus with other specified complication E11.69 [place] [id number] [place] [address] 66469- 3990 February, [place] [id number] [place] [address] 12486- 4607 Jan, Type 2 diabetes mellitus with diabetic polyneuropathy E11.42 [place] [id number] [place] [address] 02759- 2194 Jan, [place] [id number] [place] [address] 08595- 8124 Jan, Right upper quadrant pain R10.11 and Intractable vomiting with nausea, unspecified vomiting type R11.2 [place] [id number] [place] [address] 73225- 1492 Jan, Hypertriglyceridemia E78.1 and Essential hypertension I10 [place] [id number] [place] [address] 04976- 0282 07 Jan, 2017 Essential hypertension I10 ; Type 2 diabetes mellitus with diabetic polyneuropathy E11.42 and Hypertriglyceridemia E78.1 [place] [id number] [place] [address] 69870- 2811 16 Dec, 2016 Type 2 diabetes mellitus with diabetic polyneuropathy E11.42 [facility], [place] [id number] [place] [address] 75211- 7396 Dec, Hypertriglyceridemia E78.1 ; Essential hypertension I10 ; Type 2 diabetes mellitus with diabetic polyneuropathy E11.42 ; Anxiety disorder , unspecified F41.9 and Moderate persistent asthma without complication J45.40 [facility], [place] [id number] [place] [address] 87655- 6878 Dec, Type 2 diabetes mellitus with diabetic polyneuropathy E11.42 [facility] [id number] [place] [address] [id number] Dec, [facility], [place] [id number] [place] [address] 29421- 7527 Nov, [facility], [place] [id number] [place] [address] 89188- 7007 Nov, [facility], [place] [id number] [place] [address] 96049- 5675 Nov, [facility], [place] [id number] [place] [address] 19104- 0027 Nov, Toe infection L08.9 [facility], [place] [id number] [place] [address] 66495- 4843 Nov, [facility], [place] [id number] [place] [address] 54964- 0386 Oct, History of amputation of hallux Z89.419 [facility], [place] [address] [place] [address] 63549- 8997 Oct, Type 2 diabetes mellitus with diabetic polyneuropathy E11.42 [facility], [place] [id number] [place] [address] 66611- 0376 17 Oct, 2016 Type 2 diabetes mellitus with diabetic polyneuropathy E11.42 [facility], [place] [id number] [place] [address] 49389- 3026 Oct, Acute osteomyelitis of left foot M86.172 ; Pre-op exam Z01.818 and Type 2 diabetes mellitus with diabetic polyneuropathy E11.42 [facility], [place] [id number] [place] [address] 26131- 8948 Oct, Foot ulcer, left, with unspecified severity L97.529 ; Acute osteomyelitis of left foot M86.172 and Type 2 diabetes mellitus with diabetic polyneuropathy E11.42 [facility], [place] [id number] [place] [address] 08382- 8038 Sep, [facility], [place] [id number] [place] [address] 99424- 6520 Sep, Intractable vomiting with nausea, unspecified vomiting type R11.2 and Right upper quadrant pain R10.11 [place] [id number] [place] [address] 86409- 9373 Aug, [place] [id number] [place] [address] 21780- 8926 Jul, [facility], [place] [id number] [place] [address] 62874- 0514 Jul, Preop examination Z01.818 [facility], [place] [id number] [place] [address] 12470- 5145 Jul, [facility], [place] [address] [place] [address] 69297- 0090 Jul, [facility], [place] [id number] [place] [address] 94837- 2309 Jul, Chronic osteomyelitis of left foot M86.672 and Ulcer of left foot, with unspecified severity L97.529 [place] [address] [place] [address] 78383- 0051 Jul, Non-pressure chronic ulcer of other part of left foot with unspecified severity L97.529 [place] [id number] [place] [address] 04932- 1931 Jul, [facility], [place] [address] [address]- 0139 Jul, [facility], [place] [id number] [place] [address] 10217- 4211 Jun, [facility], [place] [id number] [place] [address] 71328- 8920 Jun, [facility], [place] [id number] [place] [address] 44153- 2372 Jun, [facility], [place] [id number] [place] [address] 59687- 4334 Jun, Right upper quadrant pain R10.11 [facility], [place] [id number] [place] [address] 75745- 7727 Jun, [facility], [place] [id number] [place] [address] 32154- 8238 Jun, Intractable vomiting with nausea, unspecified vomiting type R11.2 [facility], [place] [id number] [place] [address] 64667- 0655 13 Jun, 2016 Right upper quadrant pain R10.11 ; Migraine with aura and with status migrainosus, not intractable G43.101 and Intractable vomiting with nausea, unspecified vomiting type R11.2 [facility], [place] [id number] [place] [address] 24814- 4210 Jun, [facility], [place] [address] [place] [address] 94424- 5813 Jun, Gastroenteritis K52.9 [facility], [place] [address] [place] [address] 98597- 9329 May, [facility], [place] [id number] [place] [address] 34871- 6804 May, Hypertriglyceridemia E78.1 ; Essential hypertension I10 ; Type 2 diabetes mellitus with diabetic polyneuropathy E11.42 ; Moderate persistent asthma without complication J45.40 ; Type 2 diabetes mellitus with foot ulcer E11.621 ; Other chronic pain G89.29 ; Pain in right leg M79.604 ; Pain of left leg M79.605 ; Rash and nonspecific skin eruption R21 and Anxiety disorder, unspecified F41.9 [place] [address] [place] [address] 84244- 5529 May, Essential hypertension I10 ; Hypertriglyceridemia E78.1 ; Upper respiratory infection J06.9 ; Subclinical hypothyroidism E03.9 and Type 2 diabetes mellitus with diabetic polyneuropathy E11.42 [place] [address] [place] [address] 23000- 4016 Apr, Hypertriglyceridemia E78.1 ; Subclinical hypothyroidism E03.9 ; Essential hypertension I10 and Type 2 diabetes mellitus with diabetic polyneuropathy E11.42 [place] [address] [place] [address] 36611- 6749 Mar, [place] [address] 41251- 2694 Mar, Ulcer of right heel L97.419 [place] [id number] [place] [address] 71142- 1229 Mar, [place] [address] [place] [address] 04998- 0309 Mar, [place] [address] [place] [address] 66166- 7279 February, [place] [id number] [place] [address] 61111- 8037 February, Ulcer of right heel L97.419 and DM neuro manif type II E11.49 [place] [id number] [place] [address] 28894- 6511 Jan, [place] [address] [place] [address] 78294- 7012 Jan, Ulcer of right heel L97.419 ; Type 2 diabetes mellitus with foot ulcer E11.621 and Non-pressure chronic ulcer of other part of left foot with unspecified severity L97.529 [facility], [place] [address] [address]- 0331 Jan, [facility], [place] [id number] [place] [address] 49927- 7151 Jan, [facility], [place] [address] [place] [address] 13601- 1557 Jan, Infection of toenail L03.039 [facility], [place] [id number] [place] [address] 42787- 6224 Jan, Blister of toe of left foot, initial encounter S90.425A and Type 2 diabetes mellitus with diabetic polyneuropathy E11.42 [facility], [place] [id number] [place] [address] 44083- 8073 Jan, [facility] [address] [place] [address] 02451 -7535 Jan, Sore throat J02.9 and Strep pharyngitis J02.0 [facility], [place] [address] [place] [address] 51328- 7618 Dec, Type 2 diabetes mellitus with diabetic polyneuropathy E11.42 ; Upper respiratory infection J06.9 ; Cough R05 and Asthma exacerbation J45.901 [facility], [place] [address] [address]- 7530 Oct, [facility], [place] [id number] [place] [address] 56131- 1404 Oct, [facility], [place] [address] [place] [address] 27948- 8567 Oct, [facility], [place] [id number] [place] [address] 32282- 1564 Oct, [facility], [place] [id number] [place] [address] 56290- 1890 Sep, [facility], [place] [id number] [place] [address] 69550- 0875 Aug, Anxiety disorder, unspecified F41.9 and Obesity E66.9 [facility], [place] [id number] [place] [address] 91661- 0546 Aug, Moderate persistent asthma without complication J45.40 [facility], [place] [id number] [place] [address] 15619- 9614 Aug, Anxiety disorder, unspecified F41.9 [place] [address] 25725- 3196 Aug, Chronic migraine G43.709 ; Encounter for immunization Z23 ; Hypertriglyceridemia E78.1 ; Type 2 diabetes mellitus with diabetic polyneuropathy E11.42 ; Moderate persistent asthma without complication J45.40 and Morbid obesity E66.01 [place] [id number] [place] [address] 53258- 0583 Jul, [address] 86164- 6894 Jul, [facility], [place] [id number] [place] [address] 43205- 2380 Jul, [address] 49961- 6751 Jul, Subclinical hypothyroidism E03.9 [place] [id number] [place] [address] 19528- 9512 Jun, Essential hypertension, benign 401.1 ; Diabetic ulcer of lower extremity 250.80 ; Asthma 493.90 ; Diabetes mellitus type II, uncontrolled 250.02 and Hyperlipidemia associated with type 2 diabetes mellitus 250.80 [place] [id number] [place] [address] 96356- 7131 Jun, [place] [address] 15253- 9460 Jun, [facility], [place] [id number] [place] [address] 93278- 9383 May, [facility] [place] [address] [place] [address]- 1071 Apr, [facility], [place] [address] [address]- 6389 Apr, Viral upper respiratory infection 465.9 and Asthma 493.90 [facility], [place] [address] [address]- 5934 Mar, Abnormal ankle brachial index 796.4 [facility], [place] [id number] [place] [address] February, [facility], [place] [id number] [place] [address] February, Essential hypertension, benign 401.1 [facility], [place] [id number] [place] [address] February, Diabetic peripheral neuropathy 250.60 ; Ulcer of heel and midfoot 707.14 and Decreased pedal pulses 785.9 [facility], [place] [id number] [place] [address] February, [facility], [place] [id number] [place] [id number] February, [facility], [place] [id number] [address] Jan, [facility], [place] [id number] [address] Jan, [facility], [place] [id number] [address] Dec, [facility], [place] [id number] [address] Dec, [facility], [place] [id number] [address] Nov, [facility], [place] [id number] [address] Nov, [facility], [place] [id number] [place] [address] Nov, 2014 [facility] [place] [facility] [address] [id number] [place] [address] Nov, 2014 [facility] [place] [facility] [address] [id number] [place] [address] Nov, 2014 [facility] [place] [facility] [address] [id number] [place] [address] 2546 Nov, 2014 [facility] [place] [facility] [address] [id number] [place] [address] Nov, 2014 [facility] [place] [facility] [address] [id number] [place] [address] Nov, [facility] [place] [facility] [address] [id number] [place] [address] Nov, [facility] [place] [facility] [address] [id number] [place] [address] Oct, [facility] [place] [facility] [address] [id number] [place] [address] 1792 Oct, [facility] [place] [facility] [address] [id number] [place] [address]- 1113 Oct, [facility] [place] [facility] [address] [id number] [place] [address]- 0181 Oct, [facility] [place] [facility] [address] [id number] [place] [address]- 2543 Oct, [facility] [place] [facility] [address] [id number] [place] [address]- 0034 Oct, [facility] [place] [facility] [address] [id number] [place] [address]- 2549 Oct, [facility] [place] [facility] [address] [id number] [place] [address]- 254 Oct, [facility] [place] [facility] [address] [id number] [place] [address]- 7437 Oct, [facility] [place] [facility] [address] [id number] [place] [address]- 2888 Oct, [facility] [place] [facility] [address] [id number] [place] [address]- 0971 Oct, [facility] [place] [facility] [address] [id number] [place] [address]- 3227 Oct, [facility] [place] [facility] [address] [id number] [place] [address]- 2486 Oct, [facility] [place] [facility] [address] [id number] [place] [address]- 7475 Sep, [facility] [place] [facility] [address] [id number] [place] [address]- 9058 Sep, [facility] [place] [facility] [address] [id number] [place] [address]- 9411 Sep, [facility] [place] [facility] [address] [id number] [place] [address]- 1746 Sep, [facility] [place] [facility] [address] [id number] [place] [address]- 0301 Sep, [facility] [place] [facility] [address] [id number] [place] [address]- 3289 Sep, [facility] [place] [facility] [address] [id number] [place] [address]- 0998 Sep, [facility] [place] [facility] [address] [id number] [place] [address]- 7266 Sep, [facility] [place] [facility] [address] [id number] [place] [address]- 9921 Sep, [facility] [place] [facility] [address] [id number] [place] [address]- 6213 Sep, [facility] [place] [facility] [address] [id number] [place] [address] Sep, [facility] [place] [facility] [address] [id number] [place] [address]- 2992 Sep, [facility] [place] [facility] [address] [id number] [place] [address] Sep, [facility] [place] [facility] [address] [id number] [place] [address] Sep, [facility] [place] [facility] [address] [id number] [place] [address]- 5378 Sep, [facility] [place] [facility] [address] [id number] [place] [address]- 5886 Sep, [facility] [place] [facility] [address] [id number] [place] [address]- 7792 Aug, [facility] [place] [facility] [address] [id number] [place] [address]- 1190 Aug, [facility] [place] [facility] [address] [id number] [place] [address]- 2489 Aug, [facility] [place] [facility] [address] [id number] [place] [address]- 7613 Aug, [facility] [place] [facility] [address] [id number] [place] [address]- 7118 Aug, [facility] [place] [facility] [address] [facility] [id number] [place] [address]- 6646 Aug, [facility] [place] [facility] [address] [id number] [place] [address]- 8829 Aug, [facility] [place] [facility] [address] [id number] [place] [address]- 3811 Aug, [facility] [place] [facility] [address] [id number] [place] [address]- 0414 Jul, [facility] [place] [facility] [address] [id number] [place] [address]- 0487 Jul, [facility] [place] [facility] [address] [id number] [place] [address]- 2446 30 Jul, 2014 [facility] [place] [facility] [address] [id number] [place] [address]- 5634 Jul, [facility] [place] [facility] [address] [id number] [place] [address]- 7171 Jul, [facility] [place] [facility] [address] [id number] [place] [address]- 8128 Jun, [facility] [place] [facility] [address] [id number] [place] [address]- 3086 Jun, [facility] [place] [facility] [address] [id number] [place] [address]- 3307 Jun, [facility] [place] [facility] [address] [id number] [place] [address]- 3833 Jun, [facility] [place] [facility] [address] [id number] [place] [address]- 6799 Jun, [facility] [place] [facility] [address] [id number] [place] [address]- 0335 May, [facility] [place] [facility] [address] [id number] [place] [address]- 6562 May, [facility] [place] [facility] [address] [id number] [place] [address]- 4200 Apr, [facility] [place] [facility] [address] [id number] [place] [address]- 5125 Apr, [facility] [place] [facility] [address] [id number] [place] [address]- 1240 Apr, [facility] [place] [facility] [address] [id number] [place] [address]- 2277 Apr, [facility] [place] [facility] [address] [id number] [place] [address]- 3939 Apr, [facility] [place] [facility] [address] [id number] [place] [address] Apr, [facility] [place] [facility] [address] [id number] [place] [address]- 0713 Mar, [facility] [place] [facility] [address] [id number] [place] [address]- 0653 Mar, [facility] [place] [facility] [address] [id number] [place] [address]- 0317 Mar, [facility] [place] [facility] [address] [id number] [place] [address]- 5399 Mar, [facility] [place] [facility] [address] [id number] [place] [address]- 3873 Mar, [facility] [place] [facility] [address] [id number] [place] [address]- 5237 Mar, [facility] [place] [facility] [address] [id number] [place] [address]- 5115 Mar, [facility] [place] [facility] [address] [id number] [place] [address]- 6275 Mar, [facility] [place] [facility] [address] [id number] [place] [address]- 0480 Mar, [facility] [place] [facility] [address] [id number] [place] [address]- 4664 Mar, [facility] [place] [facility] [address] [id number] [place] [address]- 5227 Mar, [facility] [place] [facility] [address] [id number] [place] [address]- 8951 Mar, [facility] [place] [facility] [address] [id number] [place] [address]- 7042 Mar, [facility] [place] [facility] [address] [id number] [place] [address]- 2687 Mar, [facility] [place] [facility] [address] [id number] [place] [address]- 3753 Mar, [facility] [place] [facility] [address] [id number] [place] [address]- 7871 Mar, [facility] [place] [facility] [address] [id number] [place] [address]- 2464 February, [facility] [address] [id number] [place] [address]- 8416 February, [facility] [place] [facility] [address] [id number] [place] [address]- 4826 February, [facility] [place] [facility] [address] [id number] [place] [address]- 7884 February, [facility] [place] [facility] [address] [id number] [place] [address]- 5134 February, [facility] [place] [facility] [address] [id number] [place] [address]- 2226 February, [facility] [place] [facility] [address] [id number] [place] [address]- 8191 February, [facility] [place] [facility] [address] [id number] [place] [address]- 3949 February, [facility] [address] [id number] [place] [address]- 9764 Jan, [facility] [place] [facility] [address] [id number] [place] [address]- 3602 Jan, [facility] [place] [facility] [address] [id number] [place] [address]- 8938 Dec, [facility] [place] [facility] [address] [id number] [place] [address]- 6494 Dec, [facility] [place] [facility] [address] [id number] [place] [address]- 8598 Dec, [facility] [place] [facility] [address] [id number] [place] [address]- 3501 Dec, [facility] [place] [facility] [address] [id number] [place] [address]- 0487 Dec, [facility] [place] [facility] [address] [id number] [place] [address]- 8630 Dec, [facility] [place] [facility] [address] [id number] [place] [address]- 8145 19 Dec, 2013 [facility] [place] [facility] [address] [id number] [place] [address]- 3106 19 Dec, 2013 [facility] [place] [facility] [address] [id number] [place] [address]- 8117 17 Dec, 2013 [facility] [place] [facility] [address] [id number] [place] [address]- 2368 17 Dec, 2013 [facility] [place] [facility] [address] [id number] [place] [address]- 6515 14 Dec, 2013 [facility] [place] [facility] [address] [id number] [place] [address]- 3626 14 Dec, 2013 [facility] [place] [facility] [address] [id number] [place] [address]- 5445 Dec, [facility] [place] [facility] [address] [id number] [place] [address]- 1842 Dec, [facility] [place] [facility] [address] [id number] [place] [address]- 0118 Nov, [facility] [place] [facility] [address] [id number] [place] [address]- 7691 Nov, [facility] [place] [facility] [address] [id number] [place] [address]- 4990 Oct, [facility] [place] [facility] [address] [id number] [place] [address]- 4358 Oct, [facility] [place] [facility] [address] [id number] [place] [address]- 6354 Oct, [facility] [place] [facility] [address] [id number] [place] [address]- 3740 Oct, [facility] [place] [facility] [address] [id number] [place] [address]- 4901 Oct, [facility] [place] [facility] [address] [id number] [place] [address]- 2752 06 Oct, 2013 [facility] [address] [id number] [place] [address]- 1332 Oct, [facility] [address] [id number] [place] [address]- 3026 31 Sep, 2013 [facility] [address] [id number] [place] [address]- 8196 30 Sep, 2013 [facility] [place] [facility] [address] [id number] [place] [address]- 4474 30 Sep, 2013 [facility] [address] [id number] [place] [address]- 9757 29 Sep, 2013 [facility] [address] [id number] [place] [address]- 7511 Sep, [facility] [address] [id number] [place] [address]- 8272 27 Sep, 2013 [facility] [address] [id number] [place] [address]- 6478 Sep, [facility] [address] [id number] [place] [address]- 3792 Sep, [facility] [address] [id number] [place] [address]- 4241 24 Sep, 2013 [facility] [address] [id number] [place] [address]- 0156 24 Sep, 2013 [facility] [place] [facility] [address] [id number] [place] [address] 2548 2013 [facility] [place] [facility] [address] [id number] [place] [address] 2541 2013 [facility] [place] [facility] [address] [id number] [place] [address]- 2546 16 Sep, 2013 [facility] [place] [facility] [address] [id number] [place] [address]- 9804 16 Sep, 2013 [facility] [place] [facility] [address] [id number] [place] [address]- 8959 Sep, [facility] [address] [id number] [place] [address]- 0510 Sep, [facility] [place] [facility] [address] [id number] [place] [address]- 4585 Sep, [facility] [address] [id number] [place] [address]- 9704 Sep, [facility] [address] [id number] [place] [address]- 3250 Sep, [facility] [address] [id number] [place] [address]- 8584 Aug, [facility] [address] [id number] [place] [address]- 7364 Aug, [facility] [address] [id number] [place] [address]- 2216 Aug, [facility] [address] [id number] [place] [address]- 8500 Aug, [facility] [address] [id number] [place] [address]- 5272 Aug, [facility] [place] [facility] [address] [id number] [place] [address]- 3819 Aug, [facility] [place] [facility] [address] [id number] [place] [address]- 4854 Aug, [facility] [place] [facility] [address] [id number] [place] [address]- 3120 Aug, [facility] [place] [facility] [address] [id number] [place] [address]- 9552 Aug, [facility] [place] [facility] [address] [id number] [place] [address]- 6780 Aug, [facility] [place] [facility] [address] [id number] [place] [address]- 7963 Aug, [facility] [place] [facility] [address] [id number] [place] [address]- 3830 Aug, [facility] [place] [facility] [address] [id number] [place] [address] Aug, [facility] [place] [facility] [address] [id number] [place] [address]- 9178 Aug, [facility] [place] [facility] [address] [id number] [place] [address]- 5184 Aug, [facility] [place] [facility] [address] [id number] [place] [address]- 8643 Aug, [facility] [place] [facility] [address] [id number] [place] [address]- 2208 Aug, [facility] [place] [facility] [address] [id number] [place] [address]- 8738 Jul, [facility] [place] [facility] [address] [id number] [place] [address]- 5244 Jul, [facility] [place] [facility] [address] [id number] [place] [address]- 8929 Jul, [facility] [place] [facility] [address] [id number] [place] [address]- 3319 Jul, [facility] [place] [facility] [address] [id number] [address]- 6376 Jul, [facility] [place] [facility] [address] [id number], [place] [address]- 2165 Jul, [facility] [place] [facility] [address] [id number] [place] [address]377 Jul, [facility] [place] [facility] [address] [id number], [place] [address]- 4593 Jun, [facility] [place] [facility] [address] [id number] [place] [address]- 8993 20 Jun, 2013 [facility] [place] [facility] [id number] [address]- 8652 17 Jun, 2013 [facility] [place] [address] [facility] [id number], [place] [address]- 2518 10 Jun, 2013 [facility] [place] [id number] [address]- 0459 Jun, [facility] [place] [id number], [place] [address]- 2127 06 Jun, 2013 [facility] [place] [address] [facility] [id number], [place] [address]- 3601 05 Jun, 2013 [facility] [place] [id number], [place] [address]- 6456 Jun, [facility] [place] [id number], [place] [address]- 1416 May, [facility] [place] [id number] [address]- 3662 May, [facility] [place] [id number], [place] [address]- 6225 May, [facility] [place] [id number], [place] [address]- 4118 May, [facility] [place] [id number], [place] [address]- 2696 May, [facility] [place] [address] [id number], [place] [address]- 8233 May, [facility] [place] [address] [id number], [place] [address]- 6593 May, [facility] [place] [address] [id number], [place] [address]- 4201 May, IMMUNIZATIONS No Known Immunizations SOCIAL HISTORY Never Assessed REASON FOR VISIT requesting a returned call PLAN OF CARE VITAL SIGNS MEDICATIONS [...] in heel of feet Surgical History appendectomy [facility] 1995 Surgical History salpingectomy [facility] Surgical History bladder surgery-stretch [facility] 2003 Surgical History exploratory laparoscopy [facility] 1995 Surgical History amputation, toe (R great) Surgical History amputation, (R forefoot) 2015 Surgical History amputation, toe Left second 12/2016 Surgical History amputation, 4th left toe 02/2017 Hospitalization History Left foot cellulitis, left 2nd toe amputation-[facility] 12/23 Hospitalization History Surgery Hospitalizations
[2018-08-22 09:34] LABS: BAND NEUTROPHILS 16 %; LYMPHOCYTES % (MANUAL) 10 %; MONOCYTES % (MANUAL) 8 %; NEUTROPHILS % (MANUAL) 66 %; POLYCHROMASIA SLIGHT
--- NOTE | 2018-08-22 09:34 | Diagnostic Imaging Report ---
INDICATION: Right foot pain 3 views of the right foot show postop changes from transmetatarsal amputation. Bones have healed. There is no evidence of osteoarthritis. There is no fracture or dislocation. IMPRESSION: Postop changes from transmetatarsal amputation of the right foot. No acute abnormality seen. Dictated by: Dictated on workstation # [id number]
--- OUTSIDE RECORDS SUMMARY | 2018-08-22 09:35 | XMS REPORT ---
Author Author LUDIVINA STEPHANIE [facility] Address [address] [place] [address] Care Team Providers Care Collector Name Role Phone LUDIVINADEE DEE FAIRCHILDHANY Unavailable PROBLEMS Type Condition ICD9-CM Code [id number] Code Onset Dates Condition Status SNOMED Code Problem Subclinical hypothyroidism E03.9 Active 09865292 Problem History of amputation of hallux Z89.419 Active 064450734 Problem Hypertriglyceridemia E78.1 Active 085819061 Problem Type 2 diabetes mellitus with other specified complication E11.69 Active 305392260 Problem Type 2 diabetes mellitus with diabetic polyneuropathy E11.42 Active 523582909 Problem Status post amputation of toe of left foot Z89.422 Active 968656940 Problem Pain in left foot M79.672 Active 90254762 Problem Other chronic pain G89.29 Active 09707853 Problem Ulcer of right heel L97.419 Active 938059535 Problem Intrinsic eczema L20.84 Active 25773737 Problem Irregular menstrual cycle N92.6 Active 06222079 Problem Type 2 diabetes mellitus with other skin complications E11.628 Active 55783617 Problem Type 2 diabetes mellitus with diabetic chronic 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 Active 737259420 Problem Chronic prescription opiate use Z79.891 Active 543979375 Problem Pain in right foot M79.671 Active 29780430 Problem Severe episode of recurrent major depressive disorder, without psychotic features F33.2 Active 93451086 Problem Tonsillolith J35.8 Active 0664649 Problem Chronic kidney disease, stage III (moderate) N18.3 Active 659962237 Problem Essential hypertension I10 Active 71713749 Problem Moderate persistent asthma without complication J45.40 Active 178510501 Problem Chronic migraine G43.709 Active 73407316 Problem Type 2 diabetes mellitus with foot ulcer E11.621 Active 62365764 Problem DM neuro manif type II E11.49 Active 91720821 Problem Anxiety disorder, unspecified F41.9 Active 554468535 Problem Obesity E66.9 Active 631204995 ALLERGIES No Information ENCOUNTERS Encounter Location Date Diagnosis [facility] [place] [id number] [place] [address] 04082- 8448 February, [facility], [place] [address] 95397- 2971 Jan, [facility], [place] [address] 35121- 9244 30 Dec, 2017 Type 2 diabetes mellitus with diabetic polyneuropathy E11.42 [facility] [place] [address] 63280- 2710 Dec, Type 2 diabetes mellitus with diabetic polyneuropathy E11.42 [place] [address] 01865- 1309 15 Dec, 2017 [place] [address] 48343- 5267 14 Dec, 2017 [facility], [place] [id number] [place] [address] 50609- 9950 Dec, Chronic kidney disease, stage III (moderate) N18.3 [facility] [address] 36240 -3071 09 Dec, 2017 Nausea R11.0 and Diarrhea, unspecified type R19.7 [facility], [place] [id number] [place] [address] 57288- 6340 Dec, Chronic kidney disease, stage III (moderate) N18.3 and Type 2 diabetes mellitus with diabetic polyneuropathy E11.42 [facility] [place] [id number] [place] [address] 20901- 7076 Dec, [facility], [place] [address] 93853- 5829 Nov, Ulcer of right heel L97.419 and Type 2 diabetes mellitus with diabetic polyneuropathy E11.42 [facility] [id number] [place] [address] [id number] Nov, Dental examination Z01.20 [facility], [place] [address] [address] Nov, Open wound of right foot, initial encounter S91.301A [facility] [address] [place] [address] 35630 -7727 Nov, Open wound of right foot, initial encounter S91.301A ; Non- intractable vomiting with nausea, unspecified vomiting type R11.2 and BMI 60.0- 69.9, adult Z68.44 [facility], [place] [id number] [place] [address] 11783- 6339 Nov, [place] [id number] [place] [address] 25947- 3052 16 Nov, 2017 Other chronic pain G89.29 [place] [id number] [place] [address] 41981- 6611 Oct, Cellulitis of right lower limb L03.115 [facility], [place] [id number] [place] [address] 84236- 8630 Oct, [place] [id number] [place] [address] 16595- 3606 Oct, [place] [address] [place] [address] 62911- 2951 Oct, Cat scratch W55.03XA ; Cellulitis of right lower limb L03.115 ; Acute nasopharyngitis J00 ; BMI 60.0-69.9, adult Z68.44 and Cough R05 [facility], [place] [address] [place] [address] 95590- 1502 Oct, Cat scratch W55.03XA ; Cutaneous abscess of right lower extremity L02.415 and Cellulitis of right lower limb L03.115 [place] [address] [place] [address] 99047- 1324 Oct, Type 2 diabetes mellitus with diabetic polyneuropathy E11.42 [place] [id number] [place] [address] 90933- 4113 Oct, Other chronic pain G89.29 [place] [id number] [place] [address] 27076- 3402 Aug, [place] [id number] [place] [address] 07147- 1036 Jul, Other chronic pain G89.29 [place] [address] 02652- 3627 Jul, [place] [id number] [place] [address] 80751- 9646 Jul, Chronic kidney disease, stage III (moderate) N18.3 [place] [id number] [place] [address] 56094- 2038 Jul, Type 2 diabetes mellitus with diabetic polyneuropathy E11.42 ; Essential hypertension I10 ; Irregular menstrual cycle N92.6 ; Hypertriglyceridemia E78.1 ; Anxiety disorder, unspecified F41.9 ; Severe episode of recurrent major depressive disorder, without psychotic features F33.2 ; Tonsillolith J35.8 ; Intrinsic eczema L20.84 ; Subclinical hypothyroidism E03.9 ; Viral pharyngitis J02.9 and Encounter for immunization Z23 [place] [id number] [place] [address] 13558- 9764 13 Jun, 2017 Essential hypertension I10 [place] [id number] [place] [address] 12418- 6329 08 Jun, 2017 [place] [id number] [place] [address] 85483- 0679 Jun, [place] [id number] [place] [address] 02276- 6439 May, Moderate persistent asthma without complication J45.40 [place] [id number] [place] [address] 25333- 3839 May, Pain in right foot M79.671 ; Pain in left foot M79.672 ; Other chronic pain G89.29 and Chronic prescription opiate use Z79.891 [facility], [place] [id number] [place] [address] 61215- 8632 May, [facility], [place] [address] 06566- 6095 May, [facility], [place] [id number] [place] [address] 01772- 6606 Apr, [facility], [place] [address] 03832- 7020 Apr, Chronic migraine G43.709 [facility], [place] [address] 46100- 8015 Apr, Essential hypertension I10 ; Hypertriglyceridemia E78.1 and Chronic migraine G43.709 [facility], [place] [address] 60405- 6920 Apr, [facility], [place] [id number] [place] [address] 69326- 1454 Apr, Sore throat J02.9 [facility], [place] [id number] [place] [address] 72663- 1815 Apr, [facility], [place] [id number] [place] [address] 57132- 2442 Mar, Strep pharyngitis J02.0 and Non-intractable vomiting with nausea, unspecified vomiting type R11.2 [facility] [place] [id number] [place] [address] 05155- 9909 Mar, [facility] [place] [id number] [place] [address] 87410- 0301 Mar, [facility], [place] [id number] [place] [address] 68633- 9154 Mar, [facility], [place] [id number] [place] [address] 24466- 9965 Mar, Type 2 diabetes mellitus with diabetic polyneuropathy E11.42 ; Moderate persistent asthma without complication J45.40 ; Status post amputation of toe of left foot Z89.422 ; Acute seasonal allergic rhinitis, unspecified trigger J30.2 and Left shoulder pain, unspecified chronicity M25.512 [place] [id number] [place] [address] 37334- 0074 Mar, [place] [id number] [place] [address] 81067- 1593 February, Pre-op evaluation Z01.818 ; Type 2 diabetes mellitus with diabetic polyneuropathy E11.42 and Type 2 diabetes mellitus with foot ulcer E11.621 [place] [address] 73661- 9490 February, [place] [address] 17381- 7110 February, [place] [address] 54247- 3448 February, Toe infection L08.9 and Type 2 diabetes mellitus with other specified complication E11.69 [place] [id number] [place] [address] 25561- 4185 February, [place] [id number] [place] [address] 91589- 8260 Jan, Type 2 diabetes mellitus with diabetic polyneuropathy E11.42 [place] [id number] [place] [address] 04621- 8990 Jan, [place] [id number] [place] [address] 35664- 7712 Jan, Right upper quadrant pain R10.11 and Intractable vomiting with nausea, unspecified vomiting type R11.2 [place] [id number] [place] [address] 56937- 6424 Jan, Hypertriglyceridemia E78.1 and Essential hypertension I10 [place] [address] 94814- 6006 Jan, Essential hypertension I10 ; Type 2 diabetes mellitus with diabetic polyneuropathy E11.42 and Hypertriglyceridemia E78.1 [facility], [place] [address] 06111- 8030 Dec, Type 2 diabetes mellitus with diabetic polyneuropathy E11.42 [facility] [place] [id number] [place] [address] 43184- 7501 Dec, Hypertriglyceridemia E78.1 ; Essential hypertension I10 ; Type 2 diabetes mellitus with diabetic polyneuropathy E11.42 ; Anxiety disorder , unspecified F41.9 and Moderate persistent asthma without complication J45.40 [facility], [place] [address] 22104- 7038 Dec, Type 2 diabetes mellitus with diabetic polyneuropathy E11.42 [facility] [address] [id number] Dec, [facility], [place] [address] 75587- 9755 Nov, [facility], [place] [address] 01259- 6159 Nov, [facility], [place] [address] 01699- 4666 Nov, [facility], [place] [id number] [place] [address] 94746- 2503 Nov, Toe infection L08.9 [facility], [place] [address] 08632- 4750 Nov, [facility], [place] [address] 53572- 7806 Oct, History of amputation of hallux Z89.419 [facility], [place] [address] 45007- 2807 Oct, Type 2 diabetes mellitus with diabetic polyneuropathy E11.42 [facility] [place] [address] 28950- 1456 Oct, Type 2 diabetes mellitus with diabetic polyneuropathy E11.42 [facility], [place] [address] [address]- 0089 Oct, Acute osteomyelitis of left foot M86.172 ; Pre-op exam Z01.818 and Type 2 diabetes mellitus with diabetic polyneuropathy E11.42 [facility], [place] [address] [place] [address] 59161- 8634 Oct, Foot ulcer, left, with unspecified severity L97.529 ; Acute osteomyelitis of left foot M86.172 and Type 2 diabetes mellitus with diabetic polyneuropathy E11.42 [facility], [place] [id number] [place] [address] 16019- 1089 Sep, [facility], [place] [id number] [place] [address] 04221- 8709 Sep, Intractable vomiting with nausea, unspecified vomiting type R11.2 and Right upper quadrant pain R10.11 [facility], [place] [id number] [place] [address] 19037- 4975 Aug, [facility], [place] [id number] [place] [address] 40460- 8355 Jul, [facility], [place] [id number] [place] [address] 55033- 2838 Jul, Preop examination Z01.818 [facility], [place] [id number] [place] [address] 86735- 7913 Jul, [facility], [place] [address] [place] [address] 45852- 5342 Jul, [facility], [place] [id number] [place] [address] 66943- 3979 Jul, Chronic osteomyelitis of left foot M86.672 and Ulcer of left foot, with unspecified severity L97.529 [facility], [place] [address] [place] [address] 42619- 9604 Jul, Non-pressure chronic ulcer of other part of left foot with unspecified severity L97.529 [facility], [place] [id number] [place] [address] 18987- 4139 Jul, [facility] [place] [id number] [place] [address] 66269- 5794 Jul, [facility], [place] [id number] [place] [address] 91606- 2332 Jun, [facility], [place] [id number] [place] [address] 92220- 2300 Jun, [facility], [place] [id number] [place] [address] 83659- 6220 Jun, [facility], [place] [id number] [place] [address] 48591- 3531 Jun, Right upper quadrant pain R10.11 [facility], [place] [id number] [place] [address] 41227- 7598 Jun, [facility], [place] [id number] [place] [address] 51074- 6608 Jun, Intractable vomiting with nausea, unspecified vomiting type R11.2 [facility], [place] [id number] [place] [address] 30143- 5943 13 Jun, 2016 Right upper quadrant pain R10.11 ; Migraine with aura and with status migrainosus, not intractable G43.101 and Intractable vomiting with nausea, unspecified vomiting type R11.2 [facility], [place] [id number] [place] [address] 11381- 5266 Jun, [facility], [place] [id number] [place] [address] 25588- 0606 Jun, Gastroenteritis K52.9 [facility], [place] [id number] [place] [address] 23845- 3339 May, [facility], [place] [id number] [place] [address] 19694- 0913 May, Hypertriglyceridemia E78.1 ; Essential hypertension I10 ; Type 2 diabetes mellitus with diabetic polyneuropathy E11.42 ; Moderate persistent asthma without complication J45.40 ; Type 2 diabetes mellitus with foot ulcer E11.621 ; Other chronic pain G89.29 ; Pain in right leg M79.604 ; Pain of left leg M79.605 ; Rash and nonspecific skin eruption R21 and Anxiety disorder, unspecified F41.[address] 13840- 5493 May, Essential hypertension I10 ; Hypertriglyceridemia E78.1 ; Upper respiratory infection J06.9 ; Subclinical hypothyroidism E03.9 and Type 2 diabetes mellitus with diabetic polyneuropathy E11.[address] 21137- 0595 Apr, Hypertriglyceridemia E78.1 ; Subclinical hypothyroidism E03.9 ; Essential hypertension I10 and Type 2 diabetes mellitus with diabetic polyneuropathy E11.42 [place] [address] 12124- 5142 Mar, [place] [address] 44805- 9999 Mar, Ulcer of right heel L97.419 [place] [address] 93091- 0037 Mar, [place] [id number] [place] [address] 08027- 3726 Mar, [place] [address] 26294- 6163 February, [place] [address] 41042- 2939 February, Ulcer of right heel L97.419 and DM neuro manif type II E11.49 [place] [address] 50095- 1120 Jan, [place] [address] 65572- 1738 Jan, Ulcer of right heel L97.419 ; Type 2 diabetes mellitus with foot ulcer E11.621 and Non-pressure chronic ulcer of other part of left foot with unspecified severity L97.529 [facility], [place] [id number] [place] [address] 54846- 2009 Jan, [facility], [place] [id number] [place] [address] 20986- 9228 Jan, [place] [address] 90444- 2764 Jan, Infection of toenail L03.039 [place] [address] 77042- 3847 Jan, Blister of toe of left foot, initial encounter S90.425A and Type 2 diabetes mellitus with diabetic polyneuropathy E11.42 [place] [address] 93371- 5355 Jan, [facility] [id number] [place] [address] 26054 -7533 Jan, Sore throat J02.9 and Strep pharyngitis J02.0 [place] [id number] [place] [address] 81486- 9740 Dec, Type 2 diabetes mellitus with diabetic polyneuropathy E11.42 ; Upper respiratory infection J06.9 ; Cough R05 and Asthma exacerbation J45.901 [place] [id number] [place] [address] 93527- 4095 Oct, [place] [id number] [place] [address] 38449- 9954 Oct, [facility], [place] [id number] [place] [address] 97126- 9625 Oct, [facility], [place] [id number] [place] [address] 47700- 8147 Oct, [facility], [place] [address] [place] [address]- 2294 Sep, [place] [id number] [place] [address] 93153- 1303 Aug, Anxiety disorder, unspecified F41.9 and Obesity E66.9 [place] [address] 21994- 7630 Aug, Moderate persistent asthma without complication J45.40 [place] [address] 31522- 4089 Aug, Anxiety disorder, unspecified F41.9 [place] [address] 89523- 2522 Aug, Chronic migraine G43.709 ; Encounter for immunization Z23 ; Hypertriglyceridemia E78.1 ; Type 2 diabetes mellitus with diabetic polyneuropathy E11.42 ; Moderate persistent asthma without complication J45.40 and Morbid obesity E66.01 [place] [address] 15293- 6611 Jul, [place] [address] 48669- 4909 Jul, [place] [address] 86365- 3502 Jul, [place] [id number] [place] [address] 20001- 2419 Jul, Subclinical hypothyroidism E03.9 [place] [address] 76555- 1675 Jun, Essential hypertension, benign 401.1 ; Diabetic ulcer of lower extremity 250.80 ; Asthma 493.90 ; Diabetes mellitus type II, uncontrolled 250.02 and Hyperlipidemia associated with type 2 diabetes mellitus 250.80 [place] [id number] [place] [address] 33227- 3032 Jun, [place] [address] 99744- 5349 Jun, [facility], [place] [address] [address]- 8700 May, [facility] [place] [id number] [place] [address] 32725- 7678 Apr, [facility] [place] [id number] [place] [address] 44827- 9094 Apr, Viral upper respiratory infection 465.9 and Asthma 493.90 [facility] [place] [id number] [place] [address] 26216- 3019 Mar, Abnormal ankle brachial index 796.4 [facility] [place] [id number] [place] [address] 48048- 6467 February, [facility] [place] [id number] [place] [address] 70982- 5674 February, Essential hypertension, benign 401.1 [facility] [place] [id number] [place] [address] 55278- 7973 February, Diabetic peripheral neuropathy 250.60 ; Ulcer of heel and midfoot 707.14 and Decreased pedal pulses 785.9 [facility] [place] [address] [place] [address] 61327- 7080 February, [facility] [place] [address] [place] [address] 77611- 4585 February, [facility] [place] [address] [address]- 9579 Jan, [facility], [place] [address] [address]- 0740 Jan, [facility] [place] [id number] [place] [address] 74969- 5705 Dec, [facility] [place] [address] [address]- 4853 Dec, [facility] [place] [address] [place] [address] 35727- 6950 Nov, [facility] [place] [facility] [address] [id number] [place] [address]- 4657 Nov, 2014 [facility] [place] [facility] [address] [id number] [place] [address]- 3586 Nov, 2014 [facility] [place] [facility] [address] [id number] [place] [address] Nov, 2014 [facility] [place] [facility] [address] [id number] [place] [address] Nov, 2014 [facility] [place] [facility] [address] [id number] [place] [address] Nov, [facility] [place] [facility] [address] [id number] [place] [address] Nov, [facility] [place] [facility] [address] [id number] [place] [address] Nov, [facility] [place] [facility] [address] [id number] [place] [address] Nov, [facility] [place] [facility] [address] [id number] [place] [address] Oct, [facility] [place] [facility] [address] [id number] [place] [address] Oct, [facility] [place] [facility] [address] [id number] [place] [address] Oct, [facility] [place] [facility] [address] [id number] [place] [address] Oct, [facility] [place] [facility] [address] [id number] [place] [address] Oct, [facility] [place] [facility] [address] [id number] [place] [address] Oct, [facility] [place] [facility] [address] [id number] [place] [address] Oct, [facility] [place] [facility] [address] [id number] [place] [address] Oct, [facility] [address] [id number] [place] [address] Oct, [facility] [address] [id number] [place] [address] Oct, [facility] [address] [id number] [place] [address] 8[address] Oct, [facility] [address] [id number] [place] [address] Oct, [facility] [address] [id number] [place] [address] Oct, [facility] [address] [id number] [place] [address] Sep, [facility] [address] [id number] [place] [address] 6[address] Sep, [facility] [address] [id number] [place] [address] 8555 Sep, [facility] [address] [id number] [place] [address] Sep, [facility] [address] [id number] [place] [address]- 5625 Sep, [facility] [address] [id number] [place] [address]- 0779 Sep, [facility] [address] [id number] [place] [address] 3184 Sep, [facility] [place] [facility] [address] [id number] [place] [address]- 0450 Sep, [facility] [address] [id number] [place] [address]- 0708 Sep, [facility] [address] [id number] [place] [address]- 6621 Sep, [facility] [place] [facility] [address] [id number] [place] [address] Sep, [facility] [place] [facility] [address] [id number] [place] [address]- 8667 Sep, [facility] [place] [facility] [address] [id number] [place] [address]- 5452 Sep, [facility] [place] [facility] [address] [id number] [place] [address]- 9341 Sep, [facility] [place] [facility] [address] [id number] [place] [address] Sep, [facility] [place] [facility] [address] [id number] [place] [address]- 0928 Sep, [facility] [place] [facility] [address] [id number] [place] [address]- 4843 Aug, [facility] [place] [facility] [address] [id number] [place] [address]- 6582 Aug, [facility] [place] [facility] [address] [id number] [place] [address]- 7302 Aug, [facility] [place] [facility] [address] [id number] [place] [address]- 4373 Aug, [facility] [place] [facility] [address] [id number] [place] [address]- 6651 Aug, [facility] [place] [facility] [address] [id number], [place] [address] 1659 Aug, [facility] [place] [facility] [address] [id number] [place] [address]- 7205 Aug, [facility] [place] [facility] [address] [id number] [place] [address]- 7303 Aug, [facility] [place] [facility] [address] [id number] [place] [address] Jul, [facility] [place] [facility] [address] [id number], [place] [address] 0469 Jul, [facility] [place] [facility] [address] [id number] [place] [address]- 7797 30 Jul, 2014 [facility] [place] [facility] [address] [id number] [place] [address]- 5813 Jul, [facility] [place] [facility] [address] [id number] [place] [address]- 0411 Jul, [facility] [place] [facility] [address] [id number] [place] [address]- 6329 Jun, [facility] [place] [facility] [address] [id number] [place] [address]- 2446 Jun, [facility] [place] [facility] [address] [id number] [place] [address]- 2750 Jun, [facility] [place] [facility] [address] [id number] [place] [address]- 2959 Jun, [facility] [place] [facility] [address] [id number] [place] [address]- 0236 Jun, [facility] [place] [facility] [address] [id number] [place] [address]- 5669 May, [facility] [place] [facility] [address] [id number] [place] [address]- 1759 May, [facility] [place] [facility] [address] [id number] [place] [address]- 1484 Apr, [facility] [place] [facility] [address] [id number] [place] [address]- 0290 Apr, [facility] [place] [facility] [address] [id number] [place] [address]- 9540 Apr, [facility] [place] [facility] [address] [id number] [place] [address]- 8865 Apr, [facility] [place] [facility] [address] [id number] [place] [address]- 9565 Apr, [facility] [place] [facility] [address] [id number] [place] [address]- 7984 Apr, [facility] [place] [facility] [address] [id number] [place] [address]- 2128 Mar, [facility] [place] [facility] [address] [id number] [place] [address]- 5944 Mar, [facility] [place] [facility] [address] [id number] [place] [address]- 2315 Mar, [facility] [place] [facility] [address] [id number] [place] [address]- 9276 Mar, [facility] [place] [facility] [address] [id number] [place] [address]- 7890 Mar, [facility] [place] [facility] [address] [id number] [place] [address]- 9744 Mar, [facility] [place] [facility] [address] [id number] [place] [address]- 0949 Mar, [facility] [place] [facility] [address] [id number] [place] [address]- 0379 Mar, [facility] [place] [facility] [address] [id number] [place] [address]- 0390 Mar, [facility] [place] [facility] [address] [id number] [place] [address]- 8212 Mar, [facility] [place] [facility] [address] [id number] [place] [address]- 1947 Mar, [facility] [place] [facility] [address] [id number] [place] [address]- 2368 Mar, [facility] [place] [facility] [address] [id number] [place] [address]- 6731 Mar, [facility] [place] [facility] [address] [id number] [place] [address]- 4159 Mar, [facility] [place] [facility] [address] [id number] [place] [address]- 4973 Mar, [facility] [place] [facility] [address] [id number] [place] [address]- 2981 Mar, [facility] [place] [facility] [address] [id number] [place] [address]- 8784 February, [facility] [place] [facility] [address] [id number] [place] [address]- 6621 February, [facility] [place] [facility] [address] [id number] [place] [address]- 5572 February, [facility] [place] [facility] [address] [id number] [place] [address]- 7436 February, [facility] [place] [facility] [address] [id number] [place] [address]- 2322 February, [facility] [place] [facility] [address] [id number] [place] [address]- 0941 February, [facility] [place] [facility] [address] [id number] [place] [address]- 8616 February, [facility] [place] [facility] [address] [id number] [place] [address]- 4174 February, [facility] [place] [facility] [address] [id number] [place] [address]- 9173 Jan, [facility] [place] [facility] [address] [id number] [place] [address]- 1216 Jan, [facility] [place] [facility] [address] [id number] [place] [address]- 7523 Dec, [facility] [place] [facility] [address] [id number] [place] [address]- 6986 Dec, [facility] [place] [facility] [address] [id number] [place] [address]- 2593 Dec, [facility] [place] [facility] [address] [id number] [place] [address]- 1228 Dec, [facility] [place] [facility] [address] [id number] [place] [address]- 6598 24 Dec, 2013 [facility] [place] [facility] [address] [id number] [place] [address]- 0532 24 Dec, 2013 [facility] [place] [facility] [address] [id number] [place] [address]- 5026 19 Dec, 2013 [facility] [place] [facility] [address] [id number] [place] [address]- 1683 19 Dec, 2013 [facility] [place] [facility] [address] [id number] [place] [address]- 9761 17 Dec, 2013 [facility] [place] [facility] [address] [id number] [place] [address]- 2243 17 Dec, 2013 [facility] [place] [facility] [address] [id number] [place] [address]- 6717 14 Dec, 2013 [facility] [place] [facility] [address] [id number] [place] [address]- 1914 14 Dec, 2013 [facility] [place] [facility] [address] [id number] [place] [address]- 2050 Dec, [facility] [place] [facility] [address] [id number] [place] [address]- 0586 Dec, [facility] [place] [facility] [address] [id number] [place] [address]- 8811 Nov, [facility] [place] [facility] [address] [id number] [place] [address]- 1310 Nov, [facility] [place] [facility] [address] [id number] [place] [address]- 4302 Oct, [facility] [place] [facility] [address] [id number] [place] [address]- 7543 Oct, [facility] [place] [facility] [address] [id number] [place] [address]- 6391 Oct, [facility] [place] [facility] [address] [id number] [place] [address]- 2320 Oct, [facility] [place] [facility] [address] [id number] [place] [address]- 8797 Oct, [facility] [address] [id number] [place] [address]- 0703 Oct, [facility] [address] [id number] [place] [address]- 4773 Oct, [facility] [address] [id number] [place] [address]- 7664 Sep, [facility] [address] [id number] [place] [address]- 7554 Sep, [facility] [address] [id number] [place] [address]- 5541 Sep, [facility] [address] [id number] [place] [address]- 6644 Sep, [facility] [address] [id number] [place] [address]- 1496 Sep, [facility] [address] [id number] [place] [address]- 3275 Sep, [facility] [address] [id number] [place] [address]- 0695 Sep, [facility] [address] [id number] [place] [address]- 8990 Sep, [facility] [address] [id number] [place] [address]- 1759 Sep, [facility] [address] [id number] [place] [address]- 4622 Sep, [facility] [place] [facility] [address] [id number] [place] [address]- 0215 Sep, [facility] [place] [facility] [address] [id number] [place] [address]- 5839 Sep, [facility] [address] [id number] [place] [address]- 0471 Sep, [facility] [place] [facility] [address] [id number] [place] [address]- 4449 16 Sep, 2013 [facility] [place] [facility] [address] [id number] [place] [address]- 1107 Sep, [facility] [place] [facility] [address] [id number] [place] [address]- 0481 Sep, [facility] [place] [facility] [address] [id number] [place] [address]- 7705 Sep, [facility] [place] [facility] [address] [id number] [place] [address]- 0960 Sep, [facility] [place] [facility] [address] [id number] [place] [address]- 0651 Sep, [facility] [place] [facility] [address] [id number] [place] [address]- 6549 Aug, [facility] [place] [facility] [address] [id number] [place] [address]- 4350 Aug, [facility] [place] [facility] [address] [id number] [place] [address]- 1827 Aug, [facility] [place] [facility] [address] [id number] [place] [address]- 9987 Aug, [facility] [place] [facility] [address] [id number] [place] [address]- 3767 Aug, [facility] [place] [facility] [address] [id number] [place] [address]- 2364 Aug, [facility] [place] [facility] [address] [id number] [place] [address]- 8269 Aug, [facility] [place] [facility] [address] [id number] [place] [address]- 5979 Aug, [facility] [place] [facility] [address] [id number] [place] [address]- 0827 Aug, [facility] [place] [facility] [address] [id number] [place] [address]- 1070 Aug, [facility] [place] [facility] [address] [id number] [place] [address]- 6295 Aug, [facility] [place] [facility] [address] [id number] [place] [address]- 5344 Aug, [facility] [place] [facility] [address] [id number] [place] [address]- 0108 Aug, [facility] [place] [facility] [address] [id number] [place] [address]- 2096 Aug, [facility] [place] [facility] [address] [id number] [place] [address]- 5239 Aug, [facility] [place] [facility] [address] [id number] [place] [address]- 4144 Aug, [facility] [place] [facility] [address] [id number] [place] [address]- 4570 Aug, [facility] [place] [facility] [address] [id number] [place] [address]- 6277 Jul, [facility] [place] [facility] [address] [id number] [place] [address]- 3654 Jul, [facility] [place] [facility] [address] [facility] [id number] [place] [address]- 6502 Jul, [facility] [place] [facility] [address] [id number] [place] [address]- 4154 Jul, [facility] [place] [facility] [address] [id number] [place] [address]- 3727 Jul, [facility] [place] [facility] [address] [id number] [place] [address]- 7300 Jul, [facility] [place] [facility] [address] [facility] [id number] [place] [address]- 8520 Jul, [facility] [place] [facility] [address] [id number] [place] [address] Jun, [facility] [place] [address] [id number] [place] [address]- 9934 20 Jun, 2012 [facility] [place] [address] [id number] [place] [address]- 7846 17 Jun, 2012 [facility] [place] [address] [facility] [id number], [place] [address]- 3989 10 Jun, 2012 [facility] [place] [address] [id number] [place] [address]- 7957 06 Jun, 2012 [facility] [place] [address] [id number] [place] [address]- 8066 06 Jun, 2012 [facility] [place] [address] [id number] [place] [address]- 5751 05 Jun, 2012 [facility] [place] [address] [facility] [id number] [place] [address]- 1705 03 Jun, 2012 [facility] [place] [address] [id number], [place] [address]- 0967 27 May, 2013 [facility] [place] [address] [facility] [id number], [place] [address]- 3774 May, [facility] [place] [address] [facility] [id number], [place] [address]- 8420 15 May, 2013 [facility] [place] [address] [facility] [id number], [place] [address]- 0148 14 May, 2013 [facility] [place] [address] [id number], [place] [address]- 4375 May, [facility] [place] [address] [facility] [id number], [place] [address]- 5142 May, [facility] [place] [address] [facility] [id number], [place] [address]- 3586 09 May, 2013 [facility] [place] [address] [facility] [id number], [place] [address]- 9190 May, IMMUNIZATIONS No Known Immunizations SOCIAL HISTORY Never Assessed REASON FOR VISIT Requests return call PLAN OF CARE VITAL SIGNS MEDICATIONS Medication Instructions Dosage Frequency Start Date End Date Duration Status Nystatin 206624 unit/gm apply to the affected area(s) by [...] heel of feet Surgical History appendectomy [facility] 1995 Surgical History salpingectomy [facility] Surgical History bladder surgery-stretch [facility] 2003 Surgical History exploratory laparoscopy [facility] 1995 Surgical History amputation, toe (R great) Surgical History amputation, (R forefoot) 2014 Surgical History amputation, toe Left second 12/2016 Surgical History amputation, 4th left toe 02/2017 Hospitalization History Left foot cellulitis, left 2nd toe amputation-[facility] 12/23 Hospitalization History Surgery Hospitalizations
--- OUTSIDE RECORDS SUMMARY | 2018-08-22 09:37 | XMS REPORT ---
Author Author LUDIVINA STEPHANIE [facility] Address [address] [place] [address] Care Team Providers Care Newspaper Manager Name Role Phone LUDIVINADEE DEE [place] Unavailable PROBLEMS Type Condition ICD9-CM Code NWT53-WK Code Onset Dates Condition Status SNOMED Code Problem Subclinical hypothyroidism E03.9 Active 21705073 Problem History of amputation of hallux Z89.419 Active 279943598 Problem Hypertriglyceridemia E78.1 Active 840526030 Problem Type 2 diabetes mellitus with other specified complication E11.69 Active 832847453 Problem Type 2 diabetes mellitus with diabetic polyneuropathy E11.42 Active 818809996 Problem Status post amputation of toe of left foot Z89.422 Active 209963417 Problem Pain in left foot M79.672 Active 15704226 Problem Other chronic pain G89.29 Active 19473942 Problem Ulcer of right heel L97.419 Active 657992460 Problem Intrinsic eczema L20.84 Active 40529896 Problem Irregular menstrual cycle N92.6 Active 69557976 Problem Type 2 diabetes mellitus with other skin complications E11.628 Active 16031811 Problem Type 2 diabetes mellitus with diabetic chronic 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 Active 634317824 Problem Chronic prescription opiate use Z79.891 Active 991614780 Problem Pain in right foot M79.671 Active 09177557 Problem Severe episode of recurrent major depressive disorder, without psychotic features F33.2 Active 16701759 Problem Tonsillolith J35.8 Active 1448154 Problem Chronic kidney disease, stage III (moderate) N18.3 Active 081067727 Problem Essential hypertension I10 Active 02575435 Problem Moderate persistent asthma without complication J45.40 Active 889388747 Problem Chronic migraine G43.709 Active 23123420 Problem Type 2 diabetes mellitus with foot ulcer E11.621 Active 49572094 Problem DM neuro manif type II E11.49 Active 61817780 Problem Anxiety disorder, unspecified F41.9 Active 494819822 Problem Obesity E66.9 Active 786705296 ALLERGIES No Information ENCOUNTERS Encounter Location Date Diagnosis [facility] [id number] [place] [address] 33169- 9674 February, [facility] [address] 67278- 2725 Jan, [facility] [address] 81180- 6085 30 Dec, 2017 Type 2 diabetes mellitus with diabetic polyneuropathy E11.42 [facility] [address] 34917- 0785 Dec, Type 2 diabetes mellitus with diabetic polyneuropathy E11.42 [place] [address] 85048- 4750 15 Dec, 2017 [place] [address] 11301- 3594 14 Dec, 2017 [facility] [id number] [place] [address] 07611- 8862 Dec, Chronic kidney disease, stage III (moderate) N18.3 [facility] [address] 0[address]63 -[address]4 09 Dec, 2017 Nausea R11.0 and Diarrhea, unspecified type R19.7 [facility] [id number] [place] [address] 44800- 5284 Dec, Chronic kidney disease, stage III (moderate) N18.3 and Type 2 diabetes mellitus with diabetic polyneuropathy E11.42 [facility] [id number] [place] [address] 92320- 7005 Dec, [facility] [address] 22962- 2758 Nov, Ulcer of right heel L97.419 and Type 2 diabetes mellitus with diabetic polyneuropathy E11.42 [facility] [id number] [place] [address] [id number] Nov, Dental examination Z01.20 [facility] [address] [address] Nov, Open wound of right foot, initial encounter S91.301A [facility] [address] [place] [address] 17340 -2099 Nov, Open wound of right foot, initial encounter S91.301A ; Non- intractable vomiting with nausea, unspecified vomiting type R11.2 and BMI 60.0- 69.9, adult Z68.44 [facility] [id number] [place] [address] 00932- 6488 Nov, [place] [id number] [place] [address] 24191- 1138 16 Nov, 2017 Other chronic pain G89.29 [place] [id number] [place] [address] 10393- 6703 Oct, Cellulitis of right lower limb L03.115 [facility] [id number] [place] [address] 10877- 0069 Oct, [place] [id number] [place] [address] 52419- 2709 Oct, [place] [address] [place] [address] 92101- 2264 Oct, Cat scratch W55.03XA ; Cellulitis of right lower limb L03.115 ; Acute nasopharyngitis J00 ; BMI 60.0-69.9, adult Z68.44 and Cough R05 [facility] [address] [place] [address] 94476- 5829 Oct, Cat scratch W55.03XA ; Cutaneous abscess of right lower extremity L02.415 and Cellulitis of right lower limb L03.115 [place] [address] [place] [address] 55123- 8111 Oct, Type 2 diabetes mellitus with diabetic polyneuropathy E11.42 [place] [id number] [place] [address] 84991- 3598 Oct, Other chronic pain G89.29 [place] [id number] [place] [address] 86722- 4760 Aug, [place] [id number] [place] [address] 35660- 6262 Jul, Other chronic pain G89.29 [place] [address] 00151- 2679 Jul, [place] [id number] [place] [address] 76924- 4916 Jul, Chronic kidney disease, stage III (moderate) N18.3 [place] [id number] [place] [address] 58152- 6966 Jul, Type 2 diabetes mellitus with diabetic polyneuropathy E11.42 ; Essential hypertension I10 ; Irregular menstrual cycle N92.6 ; Hypertriglyceridemia E78.1 ; Anxiety disorder, unspecified F41.9 ; Severe episode of recurrent major depressive disorder, without psychotic features F33.2 ; Tonsillolith J35.8 ; Intrinsic eczema L20.84 ; Subclinical hypothyroidism E03.9 ; Viral pharyngitis J02.9 and Encounter for immunization Z23 [place] [id number] [place] [address] 51320- 1948 13 Jun, 2017 Essential hypertension I10 [place] [id number] [place] [address] 30538- 2622 08 Jun, 2017 [place] [id number] [place] [address] 72611- 2410 Jun, [place] [id number] [place] [address] 95860- 6359 May, Moderate persistent asthma without complication J45.40 [place] [id number] [place] [address] 72548- 6945 May, Pain in right foot M79.671 ; Pain in left foot M79.672 ; Other chronic pain G89.29 and Chronic prescription opiate use Z79.891 [facility] [id number] [place] [address] 93807- 7348 May, [facility] [address] 53417- 5627 May, [facility] [id number] [place] [address] 58006- 4644 Apr, [facility] [address] 99934- 9020 Apr, Chronic migraine G43.709 [facility] [address] 11095- 4256 Apr, Essential hypertension I10 ; Hypertriglyceridemia E78.1 and Chronic migraine G43.709 [facility] [address] 92419- 3292 Apr, [facility] [id number] [place] [address] 62998- 7780 Apr, Sore throat J02.9 [facility] [id number] [place] [address] 17809- 8538 Apr, [facility] [id number] [place] [address] 75624- 4220 Mar, Strep pharyngitis J02.0 and Non-intractable vomiting with nausea, unspecified vomiting type R11.2 [facility] [id number] [place] [address] 67494- 0476 Mar, [facility] [id number] [place] [address] 10462- 2862 Mar, [facility] [id number] [place] [address] 39073- 2330 Mar, [facility] [address] [place] [address] 62815- 8680 Mar, Type 2 diabetes mellitus with diabetic polyneuropathy E11.42 ; Moderate persistent asthma without complication J45.40 ; Status post amputation of toe of left foot Z89.422 ; Acute seasonal allergic rhinitis, unspecified trigger J30.2 and Left shoulder pain, unspecified chronicity M25.512 [place] [id number] [place] [address] 40483- 5974 Mar, [place] [id number] [place] [address] 69820- 4963 February, Pre-op evaluation Z01.818 ; Type 2 diabetes mellitus with diabetic polyneuropathy E11.42 and Type 2 diabetes mellitus with foot ulcer E11.621 [place] [address] 19193- 3817 February, [place] [address] 45322- 8780 February, [place] [address] 48274- 8488 February, Toe infection L08.9 and Type 2 diabetes mellitus with other specified complication E11.69 [place] [id number] [place] [address] 81935- 0448 February, [place] [id number] [place] [address] 11550- 6165 Jan, Type 2 diabetes mellitus with diabetic polyneuropathy E11.42 [place] [id number] [place] [address] 16437- 7616 Jan, [place] [id number] [place] [address] 96896- 3647 Jan, Right upper quadrant pain R10.11 and Intractable vomiting with nausea, unspecified vomiting type R11.2 [place] [id number] [place] [address] 82331- 0972 Jan, Hypertriglyceridemia E78.1 and Essential hypertension I10 [place] [address] 68356- 2034 Jan, Essential hypertension I10 ; Type 2 diabetes mellitus with diabetic polyneuropathy E11.42 and Hypertriglyceridemia E78.1 [facility] [address] 38125- 4472 Dec, Type 2 diabetes mellitus with diabetic polyneuropathy E11.42 [facility] [id number] [place] [address] 73723- 7503 Dec, Hypertriglyceridemia E78.1 ; Essential hypertension I10 ; Type 2 diabetes mellitus with diabetic polyneuropathy E11.42 ; Anxiety disorder , unspecified F41.9 and Moderate persistent asthma without complication J45.40 [facility] [address] 94589- 2903 Dec, Type 2 diabetes mellitus with diabetic polyneuropathy E11.42 [facility] [address] [id number] Dec, [facility] [address] 04851- 3205 Nov, [facility] [address] 66840- 5969 Nov, [facility] [address] 74876- 8664 Nov, [facility] [id number] [place] [address] 75729- 6830 Nov, Toe infection L08.9 [facility] [address] 10523- 5651 Nov, [facility] [address] 95095- 9676 Oct, History of amputation of hallux Z89.419 [facility] [address] 58171- 4219 Oct, Type 2 diabetes mellitus with diabetic polyneuropathy E11.42 [facility] [address] 36004- 9359 Oct, Type 2 diabetes mellitus with diabetic polyneuropathy E11.42 [facility] [address] [address]- 9417 Oct, Acute osteomyelitis of left foot M86.172 ; Pre-op exam Z01.818 and Type 2 diabetes mellitus with diabetic polyneuropathy E11.42 [facility] [address] [place] [address] 42121- 6297 Oct, Foot ulcer, left, with unspecified severity L97.529 ; Acute osteomyelitis of left foot M86.172 and Type 2 diabetes mellitus with diabetic polyneuropathy E11.42 [facility] [id number] [place] [address] 68897- 0904 Sep, [facility] [id number] [place] [address] 54092- 0855 Sep, Intractable vomiting with nausea, unspecified vomiting type R11.2 and Right upper quadrant pain R10.11 [facility] [id number] [place] [address] 89565- 1366 Aug, [facility] [id number] [place] [address] 33777- 7410 Jul, [facility] [id number] [place] [address] 21737- 4069 Jul, Preop examination Z01.818 [facility] [id number] [place] [address] 69847- 2747 Jul, [facility] [address] [place] [address] 71773- 2347 Jul, [facility] [address] [place] [address] 88732- 9911 Jul, Chronic osteomyelitis of left foot M86.672 and Ulcer of left foot, with unspecified severity L97.529 [facility] [address] [place] [address] 03064- 2208 Jul, Non-pressure chronic ulcer of other part of left foot with unspecified severity L97.529 [facility] [id number] [place] [address] 83627- 3106 Jul, [facility] [id number] [place] [address] 62994- 0254 Jul, [facility] [id number] [place] [address] 19782- 1352 Jun, [facility] [id number] [place] [address] 83365- 4510 Jun, [facility] [id number] [place] [address] 20981- 0156 Jun, [facility] [address] [place] [address] 95585- 9636 Jun, Right upper quadrant pain R10.11 [facility] [id number] [place] [address] 87528- 4881 Jun, [facility] [id number] [place] [address] 50818- 3982 Jun, Intractable vomiting with nausea, unspecified vomiting type R11.2 [facility] [id number] [place] [address] 88837- 7757 13 Jun, 2016 Right upper quadrant pain R10.11 ; Migraine with aura and with status migrainosus, not intractable G43.101 and Intractable vomiting with nausea, unspecified vomiting type R11.2 [facility] [id number] [place] [address] 63824- 9424 Jun, [facility] [id number] [place] [address] 05416- 3404 Jun, Gastroenteritis K52.9 [facility] [id number] [place] [address] 27931- 6115 May, [facility] [id number] [place] [address] 11022- 2808 May, Hypertriglyceridemia E78.1 ; Essential hypertension I10 ; Type 2 diabetes mellitus with diabetic polyneuropathy E11.42 ; Moderate persistent asthma without complication J45.40 ; Type 2 diabetes mellitus with foot ulcer E11.621 ; Other chronic pain G89.29 ; Pain in right leg M79.604 ; Pain of left leg M79.605 ; Rash and nonspecific skin eruption R21 and Anxiety disorder, unspecified F41.[address] 99373- 9248 May, Essential hypertension I10 ; Hypertriglyceridemia E78.1 ; Upper respiratory infection J06.9 ; Subclinical hypothyroidism E03.9 and Type 2 diabetes mellitus with diabetic polyneuropathy E11.[address] 87318- 1400 Apr, Hypertriglyceridemia E78.1 ; Subclinical hypothyroidism E03.9 ; Essential hypertension I10 and Type 2 diabetes mellitus with diabetic polyneuropathy E11.42 [place] [address] 37552- 2898 Mar, [place] [address] 42843- 7639 Mar, Ulcer of right heel L97.419 [place] [address] 78754- 8600 Mar, [place] [id number] [place] [address] 11895- 9133 Mar, [place] [address] 87269- 6380 February, [place] [address] 02851- 2210 February, Ulcer of right heel L97.419 and DM neuro manif type II E11.49 [place] [address] 89092- 4271 Jan, [place] [address] 04924- 3405 Jan, Ulcer of right heel L97.419 ; Type 2 diabetes mellitus with foot ulcer E11.621 and Non-pressure chronic ulcer of other part of left foot with unspecified severity L97.529 [facility] [id number] [place] [address] 59493- 5877 Jan, [facility] [id number] [place] [address] 09647- 4183 Jan, [place] [address] 41134- 8647 Jan, Infection of toenail L03.039 [place] [address] 85067- 4810 Jan, Blister of toe of left foot, initial encounter S90.425A and Type 2 diabetes mellitus with diabetic polyneuropathy E11.42 [place] [address] 09366- 3699 Jan, [facility] [id number] [place] [address] 51344 -2630 Jan, Sore throat J02.9 and Strep pharyngitis J02.0 [place] [address] [place] [address] 78288- 3940 Dec, Type 2 diabetes mellitus with diabetic polyneuropathy E11.42 ; Upper respiratory infection J06.9 ; Cough R05 and Asthma exacerbation J45.901 [place] [id number] [place] [address] 43784- 1681 Oct, [place] [address] [place] [address] 23004- 3026 Oct, [facility] [id number] [place] [address] 48972- 7871 Oct, [facility] [id number] [place] [address] 67596- 5037 Oct, [facility] [address] [place] [address]- 2620 Sep, [place] [address] [place] [address] 21711- 2664 Aug, Anxiety disorder, unspecified F41.9 and Obesity E66.9 [place] [address] 19056- 1861 Aug, Moderate persistent asthma without complication J45.40 [place] [address] 24202- 0537 Aug, Anxiety disorder, unspecified F41.[address] 27396- 2394 Aug, Encounter for immunization Z23 ; Chronic migraine G43.709 ; Hypertriglyceridemia E78.1 ; Type 2 diabetes mellitus with diabetic polyneuropathy E11.42 ; Moderate persistent asthma without complication J45.40 and Morbid obesity E66.01 [place] [address] 56087- 9828 Jul, [place] [address] 83626- 3882 Jul, [place] [address] 15065- 5446 Jul, [place] [id number] [place] [address] 01520- 3789 Jul, Subclinical hypothyroidism E03.9 [place] [address] 99066- 4543 Jun, Essential hypertension, benign 401.1 ; Diabetic ulcer of lower extremity 250.80 ; Asthma 493.90 ; Diabetes mellitus type II, uncontrolled 250.02 and Hyperlipidemia associated with type 2 diabetes mellitus 250.80 [place] [address] [place] [address] 38198- 7137 Jun, [place] [address] 19182- 1280 Jun, [facility] [address] [address]- 0003 May, [facility] [id number] [place] [address] 59136- 4352 Apr, [facility] [id number] [place] [address] 20077- 3114 Apr, Viral upper respiratory infection 465.9 and Asthma 493.90 [facility] [id number] [place] [address] 20371- 5293 Mar, Abnormal ankle brachial index 796.4 [facility] [id number] [place] [address] 03400- 5458 February, [facility] [id number] [place] [address] 89097- 2492 February, Essential hypertension, benign 401.1 [facility] [id number] [place] [address] 09696- 1822 February, Diabetic peripheral neuropathy 250.60 ; Ulcer of heel and midfoot 707.14 and Decreased pedal pulses 785.9 [facility] [address] [place] [address] 60611- 3375 February, [facility] [address] [place] [address] 47819- 8604 February, [facility] [address] [address]- 4916 Jan, [facility] [address] [address]- 0324 Jan, [facility] [id number] [place] [address] 06452- 9324 Dec, [facility] [address] [address]- 2830 Dec, [facility] [id number] [place] [address] 98363- 9437 Nov, [facility] [place] [facility] [address] [id number] [place] [address]- 7514 Nov, 2014 [facility] [place] [facility] [address] [id number] [place] [address]- 0666 Nov, 2014 [facility] [place] [facility] [address] [id number] [place] [address]- 4709 Nov, 2014 [facility] [place] [facility] [address] [id number] [place] [address]- 3831 Nov, 2014 [facility] [place] [facility] [address] [id number] [place] [address]- 0510 Nov, [facility] [place] [facility] [address] [id number] [place] [address]- 9624 Nov, [facility] [place] [facility] [address] [id number] [place] [address]- 4018 Nov, [facility] [place] [facility] [address] [id number] [place] [address]- 1730 Nov, [facility] [place] [facility] [address] [id number] [place] [address]- 9479 Oct, [facility] [place] [facility] [address] [id number] [place] [address]- 5965 Oct, [facility] [place] [facility] [address] [id number] [place] [address]- 1804 Oct, [facility] [place] [facility] [address] [id number] [place] [address]- 5194 Oct, [facility] [place] [facility] [address] [id number] [place] [address]- 3789 Oct, [facility] [place] [facility] [address] [id number] [place] [address]- 1170 Oct, [facility] [place] [facility] [address] [id number] [place] [address]- [address] Oct, [facility] [place] [facility] [address] [id number] [place] [address] Oct, [facility] [address] [id number] [place] [address] Oct, [facility] [address] [id number] [place] [address] Oct, [facility] [address] [id number] [place] [address] Oct, [facility] [address] [id number] [place] [address] Oct, [facility] [address] [id number] [place] [address] Oct, [facility] [address] [id number] [place] [address] Sep, [facility] [address] [id number] [place] [address] Sep, [facility] [address] [id number] [place] [address] Sep, [facility] [address] [id number] [place] [address] Sep, [facility] [address] [id number] [place] [address] Sep, [facility] [address] [id number] [place] [address] Sep, [facility] [address] [id number] [place] [address] Sep, [facility] [place] [facility] [address] [id number] [place] [address] Sep, [facility] [address] [id number] [place] [address] Sep, [facility] [address] [id number] [place] [address] Sep, [facility] [place] [facility] [address] [id number] [place] Sep, [facility] [place] [facility] [address] [id number] [place] [address] Sep, [facility] [place] [facility] [address] [id number] [place] [address] Sep, [facility] [place] [facility] [address] [id number] [place] [address] Sep, [facility] [facility] [address] [id number] [place] [address] Sep, [facility] [place] [facility] [address] [id number] [place] [address] Sep, [facility] [place] [facility] [address] [id number] [place] [address]293 Aug, [facility] [place] [facility] [address] [id number] [place] [address] Aug, [facility] [place] [facility] [address] [id number] [place] [address] 62[address] Aug, [facility] [place] [facility] [address] [id number] [place] [address] 8472 Aug, [facility] [place] [facility] [address] [id number] [place] [address] 0515 Aug, [facility] [place] [facility] [address] [id number], [place] [address] Aug, [facility] [place] [facility] [address] [id number] [place] [address] 0088 Aug, [facility] [place] [facility] [address] [id number] [place] [address] 6[address] Aug, [facility] [place] [facility] [address] [id number] [place] [address] Jul, [facility] [place] [facility] [address] [id number], [place] [address] Jul, [facility] [place] [facility] [address] [id number] [place] [address]686 30 Jul, 2014 [facility] [place] [facility] [address] [id number] [place] [address] 4787 Jul, [facility] [place] [facility] [address] [id number] [place] [address]- 5695 Jul, [facility] [place] [facility] [address] [id number] [place] [address]- 1126 Jun, [facility] [place] [facility] [address] [id number] [place] [address]- 7829 Jun, [facility] [place] [facility] [address] [id number] [place] [address]- 0012 Jun, [facility] [place] [facility] [address] [id number] [place] [address]- 5145 Jun, [facility] [place] [facility] [address] [id number] [place] [address] 1984 Jun, [facility] [place] [facility] [address] [id number] [place] [address] 9120 May, [facility] [place] [facility] [address] [id number] [place] [address]- 9046 May, [facility] [place] [facility] [address] [id number] [place] [address]- 3657 Apr, [facility] [place] [facility] [address] [id number] [place] [address]- 7516 Apr, [facility] [place] [facility] [address] [id number] [place] [address]- 6041 Apr, [facility] [place] [facility] [address] [id number] [place] [address]- 0462 Apr, [facility] [place] [facility] [address] [id number] [place] [address]- 7237 Apr, [facility] [place] [facility] [address] [id number] [place] [address]- 3231 Apr, [facility] [place] [facility] [address] [id number] [place] [address]- 137[address] Mar, [facility] [place] [facility] [address] [id number] [place] [address]- 2726 Mar, [facility] [place] [facility] [address] [id number] [place] [address]- 1089 Mar, [facility] [place] [facility] [address] [id number] [place] [address]- 2963 Mar, [facility] [place] [facility] [address] [id number] [place] [address]- 9767 Mar, [facility] [place] [address] [id number] [place] [address]- 6726 Mar, [facility] [place] [facility] [address] [id number] [place] [address]- 5807 Mar, [facility] [place] [facility] [address] [id number] [place] [address]- 8288 Mar, [facility] [place] [address] [id number] [place] [address]- 8881 Mar, [facility] [place] [facility] [address] [id number] [place] [address]- 5[address] Mar, [facility] [place] [facility] [address] [id number] [place] [address]- 7487 Mar, [facility] [place] [facility] [address] [id number] [place] [address]- 1209 Mar, [facility] [place] [facility] [address] [id number] [place] [address]- 2960 Mar, [facility] [place] [facility] [address] [id number] [place] [address]- 5159 Mar, [facility] [address] [id number] [place] [address]- 7179 Mar, [facility] [address] [id number] [place] [address]- 6224 Mar, [facility] [place] [address] [id number] [place] [address]- 3404 February, [facility] [address] [id number] [place] [address]- 6017 February, [facility] [address] [id number] [place] [address]- 0032 February, [facility] [address] [id number] [place] [address]- 0123 February, [facility] [address] [id number] [place] [address]- 0357 February, [facility] [address] [id number] [place] [address]- 8310 February, [facility] [address] [id number] [place] [address]- 4820 February, [facility] [address] [id number] [place] [address]- 8808 February, [facility] [address] [id number] [place] [address]- 1459 Jan, [facility] [facility] [address] [id number] [place] [address]- 9862 Jan, [facility] [address] [id number] [place] [address]- 1135 Dec, [facility] [address] [id number] [place] [address]- 9590 Dec, [facility] [facility] [address] [id number] [place] [address]- 6457 Dec, [facility] [address] [id number] [place] [address]- 0490 Dec, [facility] [address] [id number] [place] [address]- 2306 24 Dec, 2013 [facility] [place] [facility] [address] [id number] [place] [address]- 6665 24 Dec, 2013 [facility] [address] [id number] [place] [address]- 7246 19 Dec, 2013 [facility] [address] [id number] [place] [address]- 2667 19 Dec, 2013 [facility] [address] [id number] [place] [address]- 1560 17 Dec, 2013 [facility] [address] [id number] [place] [address]- 6386 17 Dec, 2013 [facility] [address] [id number] [place] [address]- 0713 14 Dec, 2013 [facility] [address] [id number] [place] [address]- 2121 14 Dec, 2013 [facility] [address] [id number] [place] [address]- 1110 Dec, [facility] [address] [id number] [place] [address]- 7874 Dec, [facility] [address] [id number] [place] [address]- 1720 Nov, [facility] [address] [id number] [place] [address]- 9938 Nov, [facility] [address] [id number] [place] [address]- 5656 Oct, [facility] [address] [id number] [place] [address]- 5008 Oct, [facility] [address] [id number] [place] [address]- 6275 Oct, [facility] [address] [id number] [place] [address]- 9879 Oct, [facility] [address] [id number] [place] [address]- 9051 Oct, [facility] [address] [id number] [place] [address]- 8874 Oct, [facility] [address] [id number] [place] [address]- 5043 Oct, [facility] [address] [id number] [place] [address]- 0522 Sep, [facility] [address] [id number] [place] [address]- 8225 Sep, [facility] [address] [id number] [place] [address]- 6434 Sep, [facility] [address] [id number] [place] [address]- 6065 Sep, [facility] [address] [id number] [place] [address]- 4324 Sep, [facility] [address] [id number] [place] [address]- 2718 Sep, [facility] [address] [id number] [place] [address]- 8352 Sep, [facility] [address] [id number] [place] [address]- 9039 Sep, [facility] [address] [id number] [place] [address]- 6704 Sep, [facility] [address] [id number] [place] [address]- 4306 Sep, [facility] [address] [id number] [place] [address]- 5267 Sep, [facility] [address] [id number] [place] [address]- 8334 Sep, [facility] [address] [id number] [place] [address]- 2506 Sep, [facility] [address] [id number] [place] [address]- 3621 16 Sep, 2013 [facility] [address] [id number] [place] [address]- 1010 Sep, [facility] [address] [id number] [place] [address]- 2606 Sep, [facility] [address] [id number] [place] [address]- 4393 Sep, [facility] [address] [id number] [place] [address]- 7885 Sep, [facility] [address] [id number] [place] [address]- 0445 Sep, [facility] [address] [id number] [place] [address]- 5498 Aug, [facility] [address] [id number] [place] [address]- 7804 Aug, [facility] [address] [id number] [place] [address]- 7780 Aug, [facility] [address] [id number] [place] [address]- 7566 Aug, [facility] [address] [id number] [place] [address]- 8589 Aug, [facility] [address] [id number] [place] [address]- 1556 Aug, [facility] [address] [id number] [place] [address]- 7171 Aug, [facility] [address] [id number] [place] [address]- 7300 Aug, [facility] [address] [id number] [place] [address]- 2190 Aug, [facility] [address] [id number] [place] [address]- 5201 Aug, [facility] [address] [id number] [place] [address]- 6782 Aug, [facility] [address] [id number] [place] [address]- 5565 Aug, [facility] [address] [id number] [place] [address]- 8067 Aug, [facility] [address] [id number] [place] [address]- 4533 Aug, [facility] [place] [facility] [address] [id number] [place] [address]- 4795 Aug, [facility] [place] [address] [id number] [place] [address]- 8219 Aug, [facility] [address] [id number] [place] [address]- 0929 Aug, [facility] [address] [id number] [place] [address]- 3199 Jul, [facility] [address] [id number] [place] [address]- 9717 Jul, [facility] [address] [facility] [id number] [place] [address]- 7139 Jul, [facility] [place] [facility] [address] [id number] [place] [address]- 1745 Jul, [facility] [address] [id number] [place] [address]- 0473 Jul, [facility] [address] [id number] [place] [address]- 5883 Jul, [facility] [address] [facility] [id number] [place] [address]- 3754 Jul, [facility] [place] [facility] [address] [id number] [place] [address] Jun, [facility] [address] [id number] [place] [address]- 7944 20 Jun, 2012 [facility] [address] [id number] [place] [address]- 7490 17 Jun, 2012 [facility] [address] [facility] [id number], [place] [address]- 8285 10 Jun, 2012 [facility] [address] [id number] [place] [address]- 9361 06 Jun, 2012 [facility] [address] [id number] [place] [address]- 1203 06 Jun, 2012 [facility] [address] [id number] [place] [address]- 9883 05 Jun, 2012 [facility] [address] [facility] [id number] [place] [address]- 3898 03 Jun, 2012 [facility] [address] [id number], [place] [address]- 4141 27 May, 2013 [facility] [address] [facility] [id number], [place] [address]- 0712 May, [facility] [address] [facility] [id number], [place] [address]- 6978 15 May, 2013 [facility] [address] [facility] [id number], [place] [address]- 2718 14 May, 2013 [facility] [address] [id number], [place] [address]- 8759 May, [facility] [address] [facility] [id number], [place] [address]- 1755 May, [facility] [address] [facility] [id number], [place] [address]- 9575 09 May, 2013 [facility] [address] [facility] [id number], [place] [address]- 6981 May, IMMUNIZATIONS No Known Immunizations SOCIAL HISTORY [...] Davida Antunez 2003 Surgical History exploratory laparoscopy [facility] 1995 Surgical History amputation, toe (R great) Surgical History amputation, (R forefoot) 2015 Surgical History amputation, toe Left second 12/2016 Surgical History amputation, 4th left toe 02/2017 Hospitalization History Left foot cellulitis, left 2nd toe amputation-[facility] 12/23 Hospitalization History Surgery Hospitalizations
--- NOTE | 2018-08-22 09:38 | Diagnostic Imaging Report ---
INDICATION: Right calf swelling and redness. Time of exam 9:09 AM Frontal and lateral views of the tibia and fibula on the right were obtained. Alignment at the knee and ankle appears normal. Tibia and fibula appear intact. No fracture or bony destructive changes are seen. The soft tissues are unremarkable. IMPRESSION: No acute abnormality is identified. Dictated by: Dictated on workstation # [id number]
--- OUTSIDE RECORDS SUMMARY | 2018-08-22 09:38 | XMS REPORT ---
Author Author LUDIVINA STEPHANIE [facility] Address [address] [place] [address] Care Team Providers Care Manager Local Name Role Phone LUDIVINADEE DEE FAIRCHILDHANY Unavailable PROBLEMS Type Condition ICD9-CM Code ETC49-OG Code Onset Dates Condition Status SNOMED Code Problem Subclinical hypothyroidism E03.9 Active 78977159 Problem History of amputation of hallux Z89.419 Active 341078956 Problem Hypertriglyceridemia E78.1 Active 741297847 Problem Type 2 diabetes mellitus with other specified complication E11.69 Active 508299002 Problem Type 2 diabetes mellitus with diabetic polyneuropathy E11.42 Active 778819266 Problem Status post amputation of toe of left foot Z89.422 Active 817005931 Problem Pain in left foot M79.672 Active 64662766 Problem Other chronic pain G89.29 Active 04732875 Problem Ulcer of right heel L97.419 Active 335656064 Problem Intrinsic eczema L20.84 Active 99401277 Problem Irregular menstrual cycle N92.6 Active 15105974 Problem Type 2 diabetes mellitus with other skin complications E11.628 Active 28078972 Problem Type 2 diabetes mellitus with diabetic chronic 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 Active 085158472 Problem Chronic prescription opiate use Z79.891 Active 965305633 Problem Pain in right foot M79.671 Active 60697676 Problem Severe episode of recurrent major depressive disorder, without psychotic features F33.2 Active 18825247 Problem Tonsillolith J35.8 Active 6429887 Problem Chronic kidney disease, stage III (moderate) N18.3 Active 215214929 Problem Essential hypertension I10 Active 40419660 Problem Moderate persistent asthma without complication J45.40 Active 322589757 Problem Chronic migraine G43.709 Active 93668639 Problem Type 2 diabetes mellitus with foot ulcer E11.621 Active 68750165 Problem DM neuro manif type II E11.49 Active 46892622 Problem Anxiety disorder, unspecified F41.9 Active 484474562 Problem Obesity E66.9 Active 077339815 ALLERGIES No Information ENCOUNTERS Encounter Location Date Diagnosis [facility] [id number] [place] [address] 61676- 3379 February, [facility] [id number] [place] [address] 60408- 5885 Dec, Type 2 diabetes mellitus with diabetic polyneuropathy E11.42 [facility] [address] 43259- 3871 Dec, Type 2 diabetes mellitus with diabetic polyneuropathy E11.42 [facility] [address] 97707- 9519 15 Dec, 2017 [facility] [facility] [address] 23851- 0838 Dec, [facility] [address] 08609- 2212 Dec, Chronic kidney disease, stage III (moderate) N18.3 [facility] [id number] [place] [address] 00982 -7431 09 Dec, 2017 Nausea R11.0 and Diarrhea, unspecified type R19.7 [facility] [id number] [place] [address] 06664- 9311 Dec, Chronic kidney disease, stage III (moderate) N18.3 and Type 2 diabetes mellitus with diabetic polyneuropathy E11.42 [facility] [id number] [place] [address] 91023- 5311 Dec, [facility] [id number] [place] [address] 84142- 3542 Nov, Ulcer of right heel L97.419 and Type 2 diabetes mellitus with diabetic polyneuropathy E11.42 [facility] [id number] [place] [address] [id number] Nov, Dental examination Z01.20 [facility] [id number] [place] [address] 48805- 7233 Nov, Open wound of right foot, initial encounter S91.301A [facility] [id number] [place] [address] 17719 -3877 Nov, Open wound of right foot, initial encounter S91.301A ; Non- intractable vomiting with nausea, unspecified vomiting type R11.2 and BMI 60.0- 69.9, adult Z68.44 [facility] [address] 68269- 0319 Nov, [facility] [address] 65108- 3804 Nov, Other chronic pain G89.29 [facility] [address] 16222- 6163 Oct, Cellulitis of right lower limb L03.115 [facility] [address] 59446- 3179 Oct, [facility] [address] 63106- 9990 Oct, [facility] [address] 76095- 1273 Oct, Cat scratch W55.03XA ; Cellulitis of right lower limb L03.115 ; Acute nasopharyngitis J00 ; BMI 60.0-69.9, adult Z68.44 and Cough R05 [facility] [id number] [place] [address] 06989- 3561 Oct, Cat scratch W55.03XA ; Cutaneous abscess of right lower extremity L02.415 and Cellulitis of right lower limb L03.115 [facility] [address] 41382- 6125 Oct, Type 2 diabetes mellitus with diabetic polyneuropathy E11.42 [facility] [address] 72127- 6418 Oct, Other chronic pain G89.29 [facility] [id number] [place] [address] 66032- 6278 Aug, [facility] [address] 44594- 8220 Jul, Other chronic pain G89.29 [facility] [address] 06821- 2939 Jul, [facility] [address] 41323- 0846 Jul, Chronic kidney disease, stage III (moderate) N18.[address] 65063- 1845 Jul, Type 2 diabetes mellitus with diabetic polyneuropathy E11.42 ; Essential hypertension I10 ; Irregular menstrual cycle N92.6 ; Hypertriglyceridemia E78.1 ; Anxiety disorder, unspecified F41.9 ; Severe episode of recurrent major depressive disorder, without psychotic features F33.2 ; Tonsillolith J35.8 ; Intrinsic eczema L20.84 ; Subclinical hypothyroidism E03.9 ; Viral pharyngitis J02.9 and Encounter for immunization Z23 [facility] [address] 17172- 2133 13 Jun, 2017 Essential hypertension I10 [facility] [address] 06786- 8233 08 Jun, 2017 [facility] [address] 80457- 4970 07 Jun, 2017 [facility] [address] 63426- 5209 May, Moderate persistent asthma without complication J45.[address] 59477- 2697 17 May, 2017 Pain in right foot M79.671 ; Pain in left foot M79.672 ; Other chronic pain G89.29 and Chronic prescription opiate use Z79.891 [facility] [address] [place] [address]- 7426 May, [facility] [id number] [place] [address] 19978- 3431 May, [facility] [id number] [place] [address] 66152- 2620 Apr, [facility] [address] 80606- 4522 Apr, Chronic migraine G43.709 [facility] [address] 15859- 9699 Apr, Essential hypertension I10 ; Hypertriglyceridemia E78.1 and Chronic migraine G43.709 [facility] [address] 76690- 4938 Apr, [facility] [address] 28437- 9714 Apr, Sore throat J02.9 [facility] [id number] [place] [address] 64590- 0686 Apr, [facility] [address] 54617- 7632 Mar, Strep pharyngitis J02.0 and Non-intractable vomiting with nausea, unspecified vomiting type R11.2 [facility] [id number] [place] [address] 02212- 9436 Mar, [facility] [id number] [place] [address] 44726- 3181 Mar, [facility] [id number] [place] [address] 34624- 0505 Mar, [facility] [id number] [place] [address] 90677- 7914 Mar, Type 2 diabetes mellitus with diabetic polyneuropathy E11.42 ; Moderate persistent asthma without complication J45.40 ; Status post amputation of toe of left foot Z89.422 ; Acute seasonal allergic rhinitis, unspecified trigger J30.2 and Left shoulder pain, unspecified chronicity M25.512 [facility] [address] [address]- 4733 Mar, [facility] [id number] [place] [address] 71541- 3812 February, Pre-op evaluation Z01.818 ; Type 2 diabetes mellitus with diabetic polyneuropathy E11.42 and Type 2 diabetes mellitus with foot ulcer E11.621 [facility] [id number] [place] [address] 38556- 4091 February, [facility] [id number] [place] [address] 78628- 5281 February, [facility] [id number] [place] [address] 73637- 7771 February, Toe infection L08.9 and Type 2 diabetes mellitus with other specified complication E11.69 [facility] [id number] [place] [address] 80917- 1179 February, [facility] [id number] [place] [address] 24162- 8048 Jan, Type 2 diabetes mellitus with diabetic polyneuropathy E11.42 [facility] [id number] [place] [address] 71658- 4612 Jan, [facility] [id number] [place] [address] 40894- 9045 Jan, Right upper quadrant pain R10.11 and Intractable vomiting with nausea, unspecified vomiting type R11.2 [facility] [address] [address]- 8102 Jan, Hypertriglyceridemia E78.1 and Essential hypertension I10 [facility] [id number] [place] [address] 37770- 2657 07 Jan, 2017 Essential hypertension I10 ; Type 2 diabetes mellitus with diabetic polyneuropathy E11.42 and Hypertriglyceridemia E78.1 [facility] [id number] [place] [address] 10665- 1248 16 Dec, 2016 Type 2 diabetes mellitus with diabetic polyneuropathy E11.42 [facility] [id number] [place] [address] 63155- 0202 15 Dec, 2016 Hypertriglyceridemia E78.1 ; Essential hypertension I10 ; Type 2 diabetes mellitus with diabetic polyneuropathy E11.42 ; Anxiety disorder , unspecified F41.9 and Moderate persistent asthma without complication J45.40 [facility] [id number] [place] [address] 95374- 3238 15 Dec, 2016 Type 2 diabetes mellitus with diabetic polyneuropathy E11.42 [facility] [address] [id number] Dec, [facility] [id number] [place] [address] 37071- 7014 Nov, [facility] [id number] [place] [address] 52785- 5366 Nov, [facility] [id number] [place] [address] 04246- 0884 Nov, [facility] [id number] [place] [address] 69041- 6061 Nov, Toe infection L08.9 [facility] [id number] [place] [address] 20882- 2298 Nov, [facility] [id number] [place] [address] 54743- 8403 Oct, History of amputation of hallux Z89.419 [facility] [id number] [place] [address] 12111- 6551 Oct, Type 2 diabetes mellitus with diabetic polyneuropathy E11.42 [facility] [id number] [place] [address] 19066- 7867 17 Oct, 2016 Type 2 diabetes mellitus with diabetic polyneuropathy E11.42 [facility] [address] [address]- 8936 13 Oct, 2016 Acute osteomyelitis of left foot M86.172 ; Pre-op exam Z01.818 and Type 2 diabetes mellitus with diabetic polyneuropathy E11.42 [facility] [address] [place] [address] 46235- 7862 Oct, Foot ulcer, left, with unspecified severity L97.529 ; Acute osteomyelitis of left foot M86.172 and Type 2 diabetes mellitus with diabetic polyneuropathy E11.42 [facility] [id number] [place] [address] 87201- 1887 Sep, [facility] [id number] [place] [address] 51126- 4960 Sep, Intractable vomiting with nausea, unspecified vomiting type R11.2 and Right upper quadrant pain R10.11 [facility] [id number] [place] [address] 75259- 5020 Aug, [facility] [id number] [place] [address] 62301- 6625 Jul, [facility] [id number] [place] [address] 22004- 2766 Jul, Preop examination Z01.818 [facility] [address] [place] [address] 40590- 6941 Jul, [facility] [id number] [place] [address] 09987- 3464 Jul, [facility] [id number] [place] [address] 03581- 8864 Jul, Chronic osteomyelitis of left foot M86.672 and Ulcer of left foot, with unspecified severity L97.529 [facility] [id number] [place] [address] 71905- 5558 Jul, Non-pressure chronic ulcer of other part of left foot with unspecified severity L97.529 [facility] [id number] [place] [address] 83222- 9034 Jul, [facility] [id number] [place] [address] 78008- 2745 Jul, [facility] [id number] [place] [address] 31554- 2006 Jun, [facility] [id number] [place] [address] 71138- 0717 Jun, [facility] [id number] [place] [address] 65014- 3190 Jun, [facility] [id number] [place] [address] 34459- 6920 Jun, Right upper quadrant pain R10.11 [facility] [id number] [place] [address] 93128- 4849 Jun, [facility] [id number] [place] [address] 81617- 1695 19 Jun, 2016 Intractable vomiting with nausea, unspecified vomiting type R11.2 [facility] [id number] [place] [address] 03996- 1731 13 Jun, 2016 Right upper quadrant pain R10.11 ; Migraine with aura and with status migrainosus, not intractable G43.101 and Intractable vomiting with nausea, unspecified vomiting type R11.2 [facility] [address] [place] [address] 52627- 2561 Jun, [facility] [id number] [place] [address] 51336- 9262 Jun, Gastroenteritis K52.9 [facility] [id number] [place] [address] 92757- 2535 May, [facility] [id number] [place] [address] 92906- 1115 May, Hypertriglyceridemia E78.1 ; Essential hypertension I10 ; Type 2 diabetes mellitus with diabetic polyneuropathy E11.42 ; Moderate persistent asthma without complication J45.40 ; Type 2 diabetes mellitus with foot ulcer E11.621 ; Other chronic pain G89.29 ; Pain in right leg M79.604 ; Pain of left leg M79.605 ; Rash and nonspecific skin eruption R21 and Anxiety disorder, unspecified F41.9 [facility] [id number] [place] [address] 22944- 7350 May, Essential hypertension I10 ; Hypertriglyceridemia E78.1 ; Upper respiratory infection J06.9 ; Subclinical hypothyroidism E03.9 and Type 2 diabetes mellitus with diabetic polyneuropathy E11.42 [facility] [id number] [place] [address] 84441- 6956 Apr, Hypertriglyceridemia E78.1 ; Subclinical hypothyroidism E03.9 ; Essential hypertension I10 and Type 2 diabetes mellitus with diabetic polyneuropathy E11.42 [facility] [id number] [place] [address] 69031- 2718 Mar, [facility] [id number] [place] [address] 35692- 1216 Mar, Ulcer of right heel L97.419 [facility] [id number] [place] [address] 43628- 6515 Mar, [facility] [id number] [place] [address] 56099- 1028 Mar, [facility] [id number] [place] [address] 60369- 6699 February, [facility] [id number] [place] [address] 40472- 7124 February, Ulcer of right heel L97.419 and DM neuro manif type II E11.49 [facility] [address] 78507- 7085 Jan, [facility] [id number] [place] [address] 55879- 9678 Jan, Ulcer of right heel L97.419 ; Type 2 diabetes mellitus with foot ulcer E11.621 and Non-pressure chronic ulcer of other part of left foot with unspecified severity L97.529 [facility] [address] [place] [address]- 9133 Jan, [facility] [address] [place] [address] 37384- 1471 Jan, [facility] [address], [place] [address]- 7632 Jan, Infection of toenail L03.039 [facility] [address] [address]- 1496 Jan, Blister of toe of left foot, initial encounter S90.425A and Type 2 diabetes mellitus with diabetic polyneuropathy E11.42 [facility] [address] [address]- 3197 Jan, [facility] [address], [place] [address] -8860 Jan, Sore throat J02.9 and Strep pharyngitis J02.0 [facility] [address] [address]- 3428 Dec, Type 2 diabetes mellitus with diabetic polyneuropathy E11.42 ; Upper respiratory infection J06.9 ; Cough R05 and Asthma exacerbation J45.901 [facility] [address], [place] [address]- 0738 Oct, [facility] [address], [place] [address]- 9453 Oct, [facility] [address], [place] [address]- 6027 Oct, [facility] [address] [place] [address] 03907- 0497 Oct, [facility] [address], [place] [address]- 4795 Sep, [facility] [id number] [place] [address] 47253- 4753 Aug, Anxiety disorder, unspecified F41.9 and Obesity E66.9 [facility] [address] 15707- 3648 Aug, Moderate persistent asthma without complication J45.40 [facility] [facility] [address] 70268- 6439 Aug, Anxiety disorder, unspecified F41.9 [facility] [facility] [address] 18796- 5482 Aug, Encounter for immunization Z23 ; Chronic migraine G43.709 ; Hypertriglyceridemia E78.1 ; Type 2 diabetes mellitus with diabetic polyneuropathy E11.42 ; Moderate persistent asthma without complication J45.40 and Morbid obesity E66.[address] 09934- 4599 Jul, [address] 74578- 2041 Jul, [facility] [facility] [address] 74408- 1286 Jul, [address] 99775- 7576 Jul, Subclinical hypothyroidism E03.9 [place] [id number] [place] [address] 98092- 9726 Jun, Essential hypertension, benign 401.1 ; Diabetic ulcer of lower extremity 250.80 ; Asthma 493.90 ; Diabetes mellitus type II, uncontrolled 250.02 and Hyperlipidemia associated with type 2 diabetes mellitus [address] 19924- 1571 Jun, [facility] [address] 99244- 2752 Jun, [facility] [facility] [address] 69513- 8266 May, [facility] [address], [place] [address]- 4559 Apr, [facility] [id number] [place] [address] 59543- 1779 Apr, Viral upper respiratory infection 465.9 and Asthma 493.90 [facility] [id number] [place] [address] 32814- 8342 Mar, Abnormal ankle brachial index 796.4 [facility] [id number] [place] [address] 01190- 5204 February, [facility] [id number] [place] [address] 43817- 4856 February, Essential hypertension, benign 401.1 [facility] [id number] [place] [address] 94708- 1008 February, Diabetic peripheral neuropathy 250.60 ; Ulcer of heel and midfoot 707.14 and Decreased pedal pulses 785.9 [facility] [address], [place] [address]- 3171 February, [facility] [id number] [place] [address] 22842- 8294 February, [facility] [address], [place] [address]- 2196 Jan, [facility] [address], [place] [address]- 4894 Jan, [facility] [address], [place] [address]- 4762 Dec, [facility] [address], [place] [address]- 6398 Dec, [facility] [address], [place] [address]- 0993 Nov, [facility] [address], [place] [address]- 7272 Nov, [facility] [place] [facility] [address] [id number] [place] [address]- 5849 Nov, [facility] [place] [facility] [address] [id number] [place] [address]- 9356 Nov, [facility] [place] [facility] [address] [id number] [place] [address]- 1056 Nov, [facility] [place] [facility] [address] [id number] [place] [address]- 6335 Nov, 2014 [facility] [place] [facility] [address] [id number] [place] [address]- 2035 Nov, [facility] [place] [facility] [address] [id number] [place] [address]- 6541 Nov, [facility] [place] [facility] [address] [id number] [place] [address]- 6054 Nov, [facility] [place] [facility] [address] [id number] [place] [address]- 7423 Oct, [facility] [place] [facility] [address] [id number] [place] [address]- 1191 Oct, [facility] [place] [facility] [address] [id number] [place] [address]- 2176 Oct, [facility] [place] [facility] [address] [id number] [place] [address]- 7018 Oct, [facility] [place] [facility] [address] [id number] [place] [address]- 8170 Oct, [facility] [place] [facility] [address] [id number] [place] [address]- 0198 Oct, [facility] [place] [facility] [address] [id number] [place] [address]- 6638 Oct, [facility] [place] [facility] [address] [id number] [place] [address]- 4286 Oct, [facility] [place] [facility] [address] [id number] [place] [address]- 7652 13 Oct, 2014 [facility] [address] [id number] [place] [address]- 7191 Oct, [facility] [address] [id number] [place] [address]- 8914 Oct, [facility] [address] [id number] [place] [address] Oct, [facility] [address] [id number] [place] [address] Oct, [facility] [address] [id number] [place] [address] Sep, [facility] [address] [id number] [place] [address] Sep, [facility] [address] [id number] [place] [address] Sep, [facility] [address] [id number] [place] [address] Sep, [facility] [address] [id number] [place] [address] Sep, [facility] [address] [id number] [place] [address] Sep, [facility] [address] [id number] [place] [address] Sep, [facility] [address] [id number] [place] [address] Sep, [facility] [place] [facility] [address] [id number] [place] [address] Sep, [facility] [place] [facility] [address] [id number] [place] [address] Sep, [facility] [address] [id number] [place] [address] Sep, [facility] [place] [facility] [address] [id number] [place] [address] Sep, [facility] [place] [facility] [address] [id number] [place] [address] Sep, [facility] [place] [facility] [address] [id number] [place] [address] Sep, [facility] [place] [facility] [address] [id number] [place] [address] Sep, [facility] [facility] [address] [id number] [place] [address] Sep, [facility] [place] [facility] [address] [id number] [place] [address] Aug, [facility] [place] [facility] [address] [id number] [place] [address]284 Aug, [facility] [place] [facility] [address] [id number] [place] [address]48 Aug, [facility] [place] [facility] [address] [id number] [place] [address]150 Aug, [facility] [place] [facility] [address] [id number] [place] [address] 9807 Aug, [facility] [place] [facility] [address] [id number] [place] [address] 3980 Aug, [facility] [address] [id number], [place] [address] Aug, [facility] [address] [id number] [place] [address] 5395 Aug, [facility] [place] [facility] [address] [id number] [place] [address]- 1538 Jul, [facility] [address] [id number], [place] [address] Jul, [facility] [address] [id number], [place] [address] Jul, [facility] [address] [id number] [place] [address]- 7091 Jul, [facility] [address] [id number] [place] [address]- 9757 Jul, [facility] [address] [id number] [place] [address]- 0406 Jun, [facility] [address] [id number] [place] [address]- 2363 Jun, [facility] [address] [id number] [place] [address]- 8682 Jun, [facility] [address] [id number] [place] [address]- 2036 Jun, [facility] [address] [id number] [place] [address]- 5640 Jun, [facility] [address] [id number] [place] [address]- 9694 May, [facility] [address] [id number] [place] [address] 2174 May, [facility] [address] [id number] [place] [address]- 3726 Apr, [facility] [address] [id number] [place] [address]- 3431 Apr, [facility] [address] [id number] [place] [address]- 6770 Apr, [facility] [address] [id number] [place] [address]- 2212 Apr, [facility] [address] [id number] [place] [address]- 2961 Apr, [facility] [address] [id number] [place] [address]- 7230 Apr, [facility] [address] [id number] [place] [address]- 4380 Mar, [facility] [address] [id number] [place] [address]- 7980 Mar, [facility] [address] [id number] [place] [address]- 8652 Mar, [facility] [address] [id number] [place] [address]- 1714 Mar, [facility] [address] [id number] [place] [address]- 2461 Mar, [facility] [address] [id number] [place] [address] 1000 Mar, [facility] [address] [id number] [place] [address]- 8645 Mar, [facility] [address] [id number] [place] [address]- 2060 Mar, [facility] [address] [id number] [place] [address]- 1622 Mar, [facility] [address] [id number] [place] [address]- 8052 Mar, [facility] [address] [id number] [place] [address]- 7589 Mar, [facility] [address] [id number] [place] [address]- 6933 Mar, [facility] [address] [id number] [place] [address]- 7485 Mar, [facility] [address] [id number] [place] [address]- 9828 Mar, [facility] [address] [id number] [place] [address]- [address]253 07 Mar, 2014 [facility] [address] [id number] [place] [address] 8024 Mar, [facility] [address] [id number] [place] [address]- 6793 February, [facility] [address] [id number] [place] [address]- 6442 February, [facility] [address] [id number] [place] [address]- 4674 February, [facility] [address] [id number] [place] [address]- 7676 February, [facility] [address] [id number] [place] [address]- 3434 February, [facility] [address] [id number] [place] [address]- 3597 February, [facility] [address] [id number] [place] [address]- 4781 February, [facility] [address] [id number] [place] [address]- 8258 February, [facility] [address] [id number] [place] [address]- 8003 Jan, [facility] [address] [id number] [place] [address]- 6502 Jan, [facility] [address] [id number] [place] [address]- 9594 Dec, [facility] [address] [id number] [place] [address]- 2157 Dec, [facility] [address] [id number] [place] [address]- 3729 Dec, [facility] [address] [id number] [place] [address]- 8664 Dec, [facility] [address] [id number] [place] [address]- 3149 Dec, [facility] [address] [id number] [place] [address]- 3128 24 Dec, 2013 [facility] [address] [id number] [place] [address]- 4508 19 Dec, 2013 [facility] [address] [id number] [place] [address]- 4618 19 Dec, 2013 [facility] [address] [id number] [place] [address]- 6616 17 Dec, 2013 [facility] [address] [id number] [place] [address]- 9460 17 Dec, 2013 [facility] [address] [id number] [place] [address]- 0674 14 Dec, 2013 [facility] [address] [id number] [place] [address]- 3093 14 Dec, 2013 [facility] [address] [id number] [place] [address]- 1475 Dec, [facility] [address] [id number] [place] [address]- 4897 Dec, [facility] [address] [id number] [place] [address]- 0910 Nov, [facility] [address] [id number] [place] [address]- 1117 Nov, [facility] [address] [id number] [place] [address]- 0934 Oct, [facility] [address] [id number] [place] [address]- 0582 Oct, [facility] [address] [id number] [place] [address]- 9047 Oct, [facility] [address] [id number] [place] [address]- 8271 Oct, [facility] [address] [id number] [place] [address]- 8991 Oct, [facility] [address] [id number] [place] [address]- 5564 Oct, [facility] [address] [id number] [place] [address]- 3045 Oct, [facility] [address] [id number] [place] [address]- 2520 31 Sep, 2013 [facility] [address] [id number] [place] [address]- 1362 Sep, [facility] [address] [id number] [place] [address]- 7534 Sep, [facility] [address] [id number] [place] [address]- 8796 Sep, [facility] [address] [id number] [place] [address]- 9885 Sep, [facility] [address] [id number] [place] [address]- 7913 Sep, [facility] [address] [id number] [place] [address]- 9593 Sep, [facility] [address] [id number] [place] [address]- 4844 Sep, [facility] [address] [id number] [place] [address]- 9406 Sep, [facility] [address] [id number] [place] [address]- 0114 Sep, [facility] [address] [id number] [place] [address]- 1872 Sep, [facility] [address] [id number] [place] [address]- 3571 Sep, [facility] [address] [id number] [place] [address]- 8739 16 Sep, 2013 [facility] [address] [id number] [place] [address]- 7257 16 Sep, 2013 [facility] [address] [id number] [place] [address]- 0885 Sep, [facility] [address] [id number] [place] [address]- 7094 Sep, [facility] [address] [id number] [place] [address]- 1397 Sep, [facility] [address] [id number] [place] [address]- 0859 Sep, [facility] [address] [id number] [place] [address]- 6205 Sep, [facility] [address] [id number] [place] [address]- 4999 Aug, [facility] [address] [id number] [place] [address]- 3970 Aug, [facility] [address] [id number] [place] [address]- 8374 Aug, [facility] [address] [id number] [place] [address]- 7422 Aug, [facility] [address] [id number] [place] [address]- 3740 Aug, [facility] [address] [id number], [place] [address]- 7545 Aug, [facility] [address] [id number] [place] [address]- 9284 Aug, [facility] [address] [id number] [place] [address]- 9857 Aug, [facility] [address] [id number] [place] [address]- 4440 Aug, [facility] [address] [id number] [place] [address]- 9030 Aug, [facility] [address] [id number] [place] [address]- 2292 Aug, [facility] [address] [id number] [place] [address]- 5642 Aug, [facility] [address] [id number] [place] [address]- 5629 Aug, [facility] [address] [id number] [place] [address]- 0982 Aug, [facility] [address] [id number] [place] [address]- 4567 Aug, [facility] [address] [id number] [place] [address]- 4158 Aug, [facility] [address] [id number] [place] [address]- 8866 Aug, [facility] [address] [id number] [place] [address]- 1931 Jul, [facility] [address] [id number] [place] [address]- 2742 Jul, [facility] [address] [id number] [place] [address]- 2752 Jul, [facility] [address] [facility] [id number] [place] [address]- 7290 Jul, [facility] [address] [id number] [place] [address]- 5694 Jul, [facility] [address] [id number] [place] [address]- 4355 Jul, [facility] [address] [id number] [place] [address]- 4612 Jul, [facility] [address] [id number] [place] [address]- 4470 Jun, [facility] [address] [id number] [place] [address]76 20 Jun, 2013 [facility] [address] [facility] [id number], [place] [address]- 5190 17 Jun, 2013 [facility] [address] [facility] [id number], [place] [address]- 7774 10 Jun, 2013 [facility] [address] [facility] [id number], [place] [address]- 5825 06 Jun, 2013 [facility] [address] [facility] [id number], [place] [address]- 1188 06 Jun, 2013 [facility] [address] [facility] [id number], [place] [address]- 5839 05 Jun, 2013 [facility] [address] [facility] [id number], [place] [address]- 6754 Jun, [facility] [id number], [place] [address]- 5402 May, [facility] [id number], [place] [address]- 4310 May, [facility] [address]00565[address], [place] [address]- 3599 May, [facility] [address]005[address], [place] [address]- 1230 May, [facility] [address] [id number], [place] [address]- 6199 May, [facility] [address] [id number], [place] [address]- 6171 May, [facility] [address] [id number], [place] [address]- 1683 May, [facility] [address] [id number], [place] [address]- 5755 May, IMMUNIZATIONS No Known Immunizations SOCIAL HISTORY Never Assessed REASON FOR VISIT Refill request PLAN OF CARE VITAL SIGNS MEDICATIONS Unknown [...] in heel of feet Surgical History appendectomy [facility] 1995 Surgical History salpingectomy [facility] Surgical History bladder surgery-stretch [facility] 2003 Surgical History exploratory laparoscopy [facility] 1995 Surgical History amputation, toe (R great) Surgical History amputation, (R forefoot) 2014 Surgical History amputation, toe Left second 12/2016 Surgical History amputation, 4th left toe 02/2017 Hospitalization History Left foot cellulitis, left 2nd toe amputation-[facility] 12/23 Hospitalization History Surgery Hospitalizations
--- OUTSIDE RECORDS SUMMARY | 2018-08-22 09:39 | XMS REPORT ---
Author Author LUDIVINA STEPHANIE Organization [facility] Address [address] [place] [address] Care Team Providers Care Food Service Worker Name Role Phone STEPHANIE FLORENCE Unavailable PROBLEMS Type Condition ICD9-CM Code [id number] Code Onset Dates Condition Status SNOMED Code Problem Type 2 diabetes mellitus with foot ulcer E11.621 Active 03592704 Problem History of amputation of hallux Z89.419 Active 467454101 Problem DM neuro manif type II E11.49 Active 64645179 Problem Pain in right foot M79.671 Active 22619627 Problem Pain in left foot M79.672 Active 91742232 Problem Status post amputation of toe of left foot Z89.422 Active 010325730 Problem Type 2 diabetes mellitus with other specified complication E11.69 Active 332300814 Problem Other chronic pain G89.29 Active 55262094 Problem Chronic prescription opiate use Z79.891 Active 806484702 Problem Irregular menstrual cycle N92.6 Active 52921324 Problem Moderate persistent asthma without complication J45.40 Active 413823573 Problem Essential hypertension I10 Active 84489716 Problem Type 2 diabetes mellitus with diabetic polyneuropathy E11.42 Active 381969244 Problem Hypertriglyceridemia E78.1 Active 368683418 Problem Type 2 diabetes mellitus with other skin complications E11.628 Active 53014114 Problem Chronic migraine G43.709 Active 77279671 Problem Anxiety disorder, unspecified F41.9 Active 759304397 Problem Subclinical hypothyroidism E03.9 Active 91478953 Problem Obesity E66.9 Active 212522055 ALLERGIES Unknown Allergies SOCIAL HISTORY No smoking Hx information available PLAN OF CARE VITAL SIGNS MEDICATIONS Medication Instructions Dosage Frequency Start Date End Date Duration Status NovoLog Flexpen 100 UNIT/ML Subcutaneous 3 times a day 30 units 8h Jan, 90 days Active Levemir Flexpen 100 UNIT/ML subcutaneously 2 times a day 50 units 12h 90 days Active RESULTS No Results PROCEDURES No Known procedures IMMUNIZATIONS No Known Immunizations
--- OUTSIDE RECORDS SUMMARY | 2018-08-22 09:39 | XMS REPORT ---
Author Author LUDIVINA STEPHANIE [facility] Address [address] [place] [address] Care Team Providers Care Emergency Vehicle Technician Name Role Phone LUDIVINADEE DEE FAIRCHILDHANY Unavailable PROBLEMS Type Condition ICD9-CM Code [id number] Code Onset Dates Condition Status SNOMED Code Problem Type 2 diabetes mellitus with other specified complication E11.69 Active 593707809 Problem Other chronic pain G89.29 Active 69103817 Problem Status post amputation of toe of left foot Z89.422 Active 358598131 Problem Intrinsic eczema L20.84 Active 19376187 Problem Type 2 diabetes mellitus with other skin complications E11.628 Active 03553795 Problem Severe episode of recurrent major depressive disorder, without psychotic features F33.2 Active 79953111 Problem Type 2 diabetes mellitus with diabetic chronic 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 Active 981763031 Problem Type 2 diabetes mellitus with diabetic polyneuropathy E11.42 Active 778311807 Problem Pain in right foot M79.671 Active 10405660 Problem Pain in left foot M79.672 Active 40193861 Problem Tonsillolith J35.8 Active 6424297 Problem Chronic prescription opiate use Z79.891 Active 560103679 Problem Chronic migraine G43.709 Active 04581100 Problem Chronic kidney disease, stage III (moderate) N18.3 Active 433397940 Problem Irregular menstrual cycle N92.6 Active 50899735 Problem Moderate persistent asthma without complication J45.40 Active 294029287 Problem Obesity E66.9 Active 542668547 Problem Type 2 diabetes mellitus with foot ulcer E11.621 Active 20575991 Problem Subclinical hypothyroidism E03.9 Active 14953473 Problem Essential hypertension I10 Active 49963656 Problem DM neuro manif type II E11.49 Active 65571347 Problem Hypertriglyceridemia E78.1 Active 143413554 Problem Anxiety disorder, unspecified F41.9 Active 552587994 Problem History of amputation of hallux Z89.419 Active 000266496 ALLERGIES No Information SOCIAL HISTORY Never Assessed [...] osteomyelitis, site unspecified [facility] Surgical History bladder surgery-stretch [facility] 2003 Surgical History exploratory laparoscopy [facility] 1995 Surgical History amputation, toe (R great) Surgical History amputation, (R forefoot) 2014 Surgical History amputation, toe Left second 12/2016 Surgical History amputation, 4th left toe 02/2017 Hospitalization History Left foot cellulitis, left 2nd toe amputation-[facility] 12/23
--- OUTSIDE RECORDS SUMMARY | 2018-08-22 09:39 | XMS REPORT ---
Author Author LUDIVINA STEPHANIE [facility] Address [address] [place] [address] Care Team Providers Care Results Engineer Name Role Phone LUDIVINADEE DEE FAIRCHILDHANY Unavailable PROBLEMS Type Condition ICD9-CM Code ZCR37-LQ Code Onset Dates Condition Status SNOMED Code Problem Subclinical hypothyroidism E03.9 Active 06632852 Problem History of amputation of hallux Z89.419 Active 061677576 Problem Hypertriglyceridemia E78.1 Active 645510229 Problem Type 2 diabetes mellitus with other specified complication E11.69 Active 225867078 Problem Type 2 diabetes mellitus with diabetic polyneuropathy E11.42 Active 875303766 Problem Status post amputation of toe of left foot Z89.422 Active 174116137 Problem Pain in left foot M79.672 Active 15225960 Problem Other chronic pain G89.29 Active 27364104 Problem Ulcer of right heel L97.419 Active 409961515 Problem Intrinsic eczema L20.84 Active 98444489 Problem Irregular menstrual cycle N92.6 Active 82131862 Problem Type 2 diabetes mellitus with other skin complications E11.628 Active 84857475 Problem Type 2 diabetes mellitus with diabetic chronic 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 Active 994050945 Problem Chronic prescription opiate use Z79.891 Active 925703744 Problem Pain in right foot M79.671 Active 50757392 Problem Severe episode of recurrent major depressive disorder, without psychotic features F33.2 Active 43213310 Problem Tonsillolith J35.8 Active 0978689 Problem Chronic kidney disease, stage III (moderate) N18.3 Active 233128834 Problem Essential hypertension I10 Active 73283588 Problem Moderate persistent asthma without complication J45.40 Active 390435049 Problem Chronic migraine G43.709 Active 82600440 Problem Type 2 diabetes mellitus with foot ulcer E11.621 Active 83999067 Problem DM neuro manif type II E11.49 Active 48673967 Problem Anxiety disorder, unspecified F41.9 Active 272312455 Problem Obesity E66.9 Active 477215256 ALLERGIES No Information ENCOUNTERS Encounter Location Date Diagnosis [facility] [id number] [place] [address] 78205- 8220 February, [facility] [id number] [place] [address] 32480- 7396 Dec, Type 2 diabetes mellitus with diabetic polyneuropathy E11.42 [facility] [address] 70153- 1604 Dec, Type 2 diabetes mellitus with diabetic polyneuropathy E11.42 [facility] [address] 10038- 8592 15 Dec, 2017 [place] [address] 97874- 5552 Dec, [facility] [address] 37574- 9168 Dec, Chronic kidney disease, stage III (moderate) N18.3 [facility] [id number] [place] [address] 97691 -8602 09 Dec, 2017 Nausea R11.0 and Diarrhea, unspecified type R19.7 [facility] [id number] [place] [address] 90609- 5201 Dec, Chronic kidney disease, stage III (moderate) N18.3 and Type 2 diabetes mellitus with diabetic polyneuropathy E11.42 [facility] [id number] [place] [address] 46808- 3601 Dec, [facility] [id number] [place] [address] 63292- 5118 Nov, Ulcer of right heel L97.419 and Type 2 diabetes mellitus with diabetic polyneuropathy E11.42 [facility] [id number] [place] [address] [id number] Nov, Dental examination Z01.20 [facility] [id number] [place] [address] 83428- 7142 Nov, Open wound of right foot, initial encounter S91.301A [facility] [id number] [place] [address] 49874 -6225 Nov, Open wound of right foot, initial encounter S91.301A ; Non- intractable vomiting with nausea, unspecified vomiting type R11.2 and BMI 60.0- 69.9, adult Z68.44 [facility] [address] 72261- 6042 Nov, [place] [address] 01920- 8238 Nov, Other chronic pain G89.29 [place] [address] 60359- 4076 Oct, Cellulitis of right lower limb L03.115 [place] [address] 80412- 8529 Oct, [place] [address] 03357- 8090 Oct, [place] [address] 35725- 1807 Oct, Cat scratch W55.03XA ; Cellulitis of right lower limb L03.115 ; Acute nasopharyngitis J00 ; BMI 60.0-69.9, adult Z68.44 and Cough R05 [facility] [id number] [place] [address] 83671- 9485 Oct, Cat scratch W55.03XA ; Cutaneous abscess of right lower extremity L02.415 and Cellulitis of right lower limb L03.115 [place] [address] 75823- 4034 Oct, Type 2 diabetes mellitus with diabetic polyneuropathy E11.42 [facility] [address] 36697- 7537 Oct, Other chronic pain G89.29 [facility] [id number] [place] [address] 55442- 0101 Aug, [facility] [address] 76906- 6870 Jul, Other chronic pain G89.29 [place] [address] 70243- 5870 Jul, [place] [address] 93802- 9097 Jul, Chronic kidney disease, stage III (moderate) N18.[address] 52644- 1918 Jul, Type 2 diabetes mellitus with diabetic polyneuropathy E11.42 ; Essential hypertension I10 ; Irregular menstrual cycle N92.6 ; Hypertriglyceridemia E78.1 ; Anxiety disorder, unspecified F41.9 ; Severe episode of recurrent major depressive disorder, without psychotic features F33.2 ; Tonsillolith J35.8 ; Intrinsic eczema L20.84 ; Subclinical hypothyroidism E03.9 ; Viral pharyngitis J02.9 and Encounter for immunization Z23 [place] [address] 08037- 0139 13 Jun, 2017 Essential hypertension I10 [place] [address] 93022- 8164 08 Jun, 2017 [place] [address] 94067- 6743 07 Jun, 2017 [place] [address] 04074- 2154 May, Moderate persistent asthma without complication J45.[address] 71577- 7159 17 May, 2017 Pain in right foot M79.671 ; Pain in left foot M79.672 ; Other chronic pain G89.29 and Chronic prescription opiate use Z79.891 [place] [address] [place] [address]- 7128 May, [facility] [id number] [place] [address] 14439- 3435 May, [facility] [id number] [place] [address] 93762- 8668 Apr, [facility] [address] 92227- 8612 Apr, Chronic migraine G43.709 [place] [address] 43999- 0954 Apr, Essential hypertension I10 ; Hypertriglyceridemia E78.1 and Chronic migraine G43.709 [place] [address] 15600- 6354 Apr, [place] [address] 35937- 4960 Apr, Sore throat J02.9 [facility] [id number] [place] [address] 48753- 0438 Apr, [facility] [address] 27982- 5781 Mar, Strep pharyngitis J02.0 and Non-intractable vomiting with nausea, unspecified vomiting type R11.2 [facility] [id number] [place] [address] 23904- 5695 Mar, [facility] [id number] [place] [address] 97897- 3264 Mar, [facility] [id number] [place] [address] 76566- 2303 Mar, [facility] [id number] [place] [address] 96864- 2446 Mar, Type 2 diabetes mellitus with diabetic polyneuropathy E11.42 ; Moderate persistent asthma without complication J45.40 ; Status post amputation of toe of left foot Z89.422 ; Acute seasonal allergic rhinitis, unspecified trigger J30.2 and Left shoulder pain, unspecified chronicity M25.512 [place] [address] [address]- 3244 Mar, [facility] [id number] [place] [address] 94116- 1437 February, Pre-op evaluation Z01.818 ; Type 2 diabetes mellitus with diabetic polyneuropathy E11.42 and Type 2 diabetes mellitus with foot ulcer E11.621 [facility] [facility] [id number] [place] [address] 13088- 5199 February, [facility] [id number] [place] [address] 56298- 4294 February, [facility] [id number] [place] [address] 29057- 2025 February, Toe infection L08.9 and Type 2 diabetes mellitus with other specified complication E11.69 [facility] [id number] [place] [address] 44525- 6656 February, [facility] [id number] [place] [address] 68115- 4283 Jan, Type 2 diabetes mellitus with diabetic polyneuropathy E11.42 [facility] [id number] [place] [address] 43507- 2112 Jan, [facility] [id number] [place] [address] 91644- 1539 Jan, Right upper quadrant pain R10.11 and Intractable vomiting with nausea, unspecified vomiting type R11.2 [place] [address] [address]- 4514 Jan, Hypertriglyceridemia E78.1 and Essential hypertension I10 [facility] [id number] [place] [address] 78682- 3573 07 Jan, 2017 Essential hypertension I10 ; Type 2 diabetes mellitus with diabetic polyneuropathy E11.42 and Hypertriglyceridemia E78.1 [facility] [id number] [place] [address] 63204- 9266 16 Dec, 2016 Type 2 diabetes mellitus with diabetic polyneuropathy E11.42 [facility] [id number] [place] [address] 41749- 6673 15 Dec, 2016 Hypertriglyceridemia E78.1 ; Essential hypertension I10 ; Type 2 diabetes mellitus with diabetic polyneuropathy E11.42 ; Anxiety disorder , unspecified F41.9 and Moderate persistent asthma without complication J45.40 [facility] [id number] [place] [address] 27119- 3648 15 Dec, 2016 Type 2 diabetes mellitus with diabetic polyneuropathy E11.42 [facility] [address] [id number] Dec, [facility] [id number] [place] [address] 63864- 7585 Nov, [facility] [id number] [place] [address] 26883- 1757 Nov, [facility] [id number] [place] [address] 56427- 6340 Nov, [facility] [id number] [place] [address] 47235- 1075 Nov, Toe infection L08.9 [facility] [id number] [place] [address] 95791- 1147 Nov, [facility] [id number] [place] [address] 58468- 5913 Oct, History of amputation of hallux Z89.419 [facility] [id number] [place] [address] 02281- 6976 Oct, Type 2 diabetes mellitus with diabetic polyneuropathy E11.42 [facility] [id number] [place] [address] 90924- 8441 17 Oct, 2016 Type 2 diabetes mellitus with diabetic polyneuropathy E11.42 [facility] [id number] [address]- 1946 13 Oct, 2016 Acute osteomyelitis of left foot M86.172 ; Pre-op exam Z01.818 and Type 2 diabetes mellitus with diabetic polyneuropathy E11.42 [facility] [address] [place] [address] 85972- 9837 Oct, Foot ulcer, left, with unspecified severity L97.529 ; Acute osteomyelitis of left foot M86.172 and Type 2 diabetes mellitus with diabetic polyneuropathy E11.42 [facility] [id number] [place] [address] 80734- 3495 Sep, [facility] [id number] [place] [address] 70599- 5012 Sep, Intractable vomiting with nausea, unspecified vomiting type R11.2 and Right upper quadrant pain R10.11 [facility] [id number] [place] [address] 66834- 9188 Aug, [facility] [id number] [place] [address] 82399- 3528 Jul, [facility] [id number] [place] [address] 52670- 3229 Jul, Preop examination Z01.818 [facility] [id number] [place] [address] 18051- 5074 Jul, [facility] [id number] [place] [address] 60660- 4712 Jul, [facility] [id number] [place] [address] 13580- 8329 Jul, Chronic osteomyelitis of left foot M86.672 and Ulcer of left foot, with unspecified severity L97.529 [facility] [id number] [place] [address] 67148- 6817 Jul, Non-pressure chronic ulcer of other part of left foot with unspecified severity L97.529 [facility] [id number] [place] [address] 43698- 5018 Jul, [facility] [id number] [place] [address] 30205- 0878 Jul, [facility] [id number] [place] [address] 01828- 5465 Jun, [facility] [id number] [place] [address] 18176- 3278 Jun, [facility] [id number] [place] [address] 76852- 7530 Jun, [facility] [id number] [place] [address] 82710- 1063 Jun, Right upper quadrant pain R10.11 [facility] [id number] [place] [address] 93896- 1753 Jun, [facility] [id number] [place] [address] 80723- 7175 19 Jun, 2016 Intractable vomiting with nausea, unspecified vomiting type R11.2 [facility] [id number] [place] [address] 10190- 9370 13 Jun, 2016 Right upper quadrant pain R10.11 ; Migraine with aura and with status migrainosus, not intractable G43.101 and Intractable vomiting with nausea, unspecified vomiting type R11.2 [facility] [id number] [place] [address] 43760- 3991 Jun, [facility] [id number] [place] [address] 86433- 4046 Jun, Gastroenteritis K52.9 [facility] [id number] [place] [address] 99453- 2371 May, [facility] [id number] [place] [address] 91360- 9910 May, Hypertriglyceridemia E78.1 ; Essential hypertension I10 ; Type 2 diabetes mellitus with diabetic polyneuropathy E11.42 ; Moderate persistent asthma without complication J45.40 ; Type 2 diabetes mellitus with foot ulcer E11.621 ; Other chronic pain G89.29 ; Pain in right leg M79.604 ; Pain of left leg M79.605 ; Rash and nonspecific skin eruption R21 and Anxiety disorder, unspecified F41.9 [facility] [id number] [place] [address] 07269- 6289 May, Essential hypertension I10 ; Hypertriglyceridemia E78.1 ; Upper respiratory infection J06.9 ; Subclinical hypothyroidism E03.9 and Type 2 diabetes mellitus with diabetic polyneuropathy E11.42 [facility] [facility] [id number] [place] [address] 53208- 8414 Apr, Hypertriglyceridemia E78.1 ; Subclinical hypothyroidism E03.9 ; Essential hypertension I10 and Type 2 diabetes mellitus with diabetic polyneuropathy E11.42 [facility] [id number] [place] [address] 72862- 8327 Mar, [facility] [facility] [id number] [place] [address] 62105- 8342 Mar, Ulcer of right heel L97.419 [facility] [id number] [place] [address] 04785- 5232 Mar, [facility] [id number] [place] [address] 55849- 5155 Mar, [facility] [id number] [place] [address] 28116- 3372 February, [facility] [id number] [place] [address] 72319- 2509 February, Ulcer of right heel L97.419 and DM neuro manif type II E11.49 [facility] [address] 78145- 8676 Jan, [place] [id number] [place] [address] 00787- 4568 Jan, Ulcer of right heel L97.419 ; Type 2 diabetes mellitus with foot ulcer E11.621 and Non-pressure chronic ulcer of other part of left foot with unspecified severity L97.529 [facility] [address] [address]- 7575 Jan, [facility] [address] [place] [address] 88105- 2901 Jan, [facility] [address] [address]- 7440 Jan, Infection of toenail L03.039 [facility] [id number] [address]- 3461 Jan, Blister of toe of left foot, initial encounter S90.425A and Type 2 diabetes mellitus with diabetic polyneuropathy E11.42 [facility] [address], [place] [address]- 5683 Jan, [facility] [address], [place] [address] -4865 Jan, Sore throat J02.9 and Strep pharyngitis J02.0 [facility] [address] [address]- 7131 Dec, Type 2 diabetes mellitus with diabetic polyneuropathy E11.42 ; Upper respiratory infection J06.9 ; Cough R05 and Asthma exacerbation J45.901 [facility] [address], [place] [address]- 7397 Oct, [facility] [address], [place] [address]- 7188 Oct, [facility] [address], [place] [address]- 0655 Oct, [facility] [address] [place] [address] 77465- 1802 Oct, [facility] [address], [place] [address]- 2243 Sep, [facility] [id number] [place] [address] 38492- 5786 Aug, Anxiety disorder, unspecified F41.9 and Obesity E66.9 [place] [address] 11670- 6657 Aug, Moderate persistent asthma without complication J45.40 [place] [address] 34476- 6955 Aug, Anxiety disorder, unspecified F41.9 [place] [address] 89588- 1079 Aug, Encounter for immunization Z23 ; Chronic migraine G43.709 ; Hypertriglyceridemia E78.1 ; Type 2 diabetes mellitus with diabetic polyneuropathy E11.42 ; Moderate persistent asthma without complication J45.40 and Morbid obesity E66.[address] 50131- 6334 Jul, [address] 62986- 0917 Jul, [place] [address] 56571- 8508 Jul, [address] 92727- 5988 Jul, Subclinical hypothyroidism E03.9 [place] [id number] [place] [address] 91594- 7514 Jun, Essential hypertension, benign 401.1 ; Diabetic ulcer of lower extremity 250.80 ; Asthma 493.90 ; Diabetes mellitus type II, uncontrolled 250.02 and Hyperlipidemia associated with type 2 diabetes mellitus [address] 65727- 2601 Jun, [facility] [address] 94451- 9721 Jun, [place] [address] 07044- 3864 May, [facility] [address], [place] [address]- 0650 Apr, [facility] [id number] [place] [address] 24775- 1742 Apr, Viral upper respiratory infection 465.9 and Asthma 493.90 [facility] [id number] [place] [address] 83259- 3378 Mar, Abnormal ankle brachial index 796.4 [facility] [id number] [place] [address] 36213- 0483 February, [facility] [id number] [place] [address] 60052- 3777 February, Essential hypertension, benign 401.1 [facility] [id number] [place] [address] 79851- 5573 February, Diabetic peripheral neuropathy 250.60 ; Ulcer of heel and midfoot 707.14 and Decreased pedal pulses 785.9 [facility] [address], [place] [address]- 6864 February, [facility] [id number] [place] [address] 03961- 8424 February, [facility] [address], [place] [address]- 4242 Jan, [facility] [address], [place] [address]- 8198 Jan, [facility] [address], [place] [address]- 5695 Dec, [facility] [address], [place] [address]- 2436 Dec, [facility] [address], [place] [address]- 3073 Nov, [facility] [address], [place] [address]- 5159 Nov, [facility] [place] [facility] [address] [id number] [place] [address]- 5333 Nov, [facility] [place] [facility] [address] [id number] [place] [address]- 8816 Nov, [facility] [place] [facility] [address] [id number] [place] [address]- 4728 Nov, [facility] [place] [facility] [address] [id number] [place] [address]- 8155 Nov, 2014 [facility] [place] [facility] [address] [id number] [place] [address]- 2289 Nov, [facility] [place] [facility] [address] [id number] [place] [address]- 0431 Nov, [facility] [place] [facility] [address] [id number] [place] [address]- 4610 Nov, [facility] [place] [facility] [address] [id number] [place] [address]- 0517 Oct, [facility] [place] [facility] [address] [id number] [place] [address]- 3500 Oct, [facility] [place] [facility] [address] [id number] [place] [address]- 5502 Oct, [facility] [place] [facility] [address] [id number] [place] [address]- 1429 Oct, [facility] [place] [facility] [address] [id number] [place] [address]- 9757 Oct, [facility] [place] [facility] [address] [id number] [place] [address]- 2303 Oct, [facility] [place] [facility] [address] [id number] [place] [address]- 2485 Oct, [facility] [place] [facility] [address] [id number] [place] [address]- 2509 Oct, [facility] [place] [facility] [address] [id number] [place] [address]- 0050 13 Oct, 2014 [facility] [address] [id number] [place] [address]- 9869 Oct, [facility] [address] [id number] [place] [address]- 6982 Oct, [facility] [address] [id number] [place] [address] Oct, [facility] [address] [id number] [place] [address] Oct, [facility] [address] [id number] [place] [address] Sep, [facility] [address] [id number] [place] [address] Sep, [facility] [address] [id number] [place] [address] Sep, [facility] [address] [id number] [place] [address] Sep, [facility] [address] [id number] [place] [address] Sep, [facility] [address] [id number] [place] [address] Sep, [facility] [address] [id number] [place] [address] Sep, [facility] [address] [id number] [place] [address] Sep, [facility] [place] [facility] [address] [id number] [place] [id number] Sep, [facility] [place] [facility] [address] [id number] [place] [address] Sep, [facility] [address] [id number] [place] [address] Sep, [facility] [place] [facility] [address] [id number] [place] [address] Sep, [facility] [place] [facility] [address] [id number] [place] [address] Sep, [facility] [place] [facility] [address] [id number] [place] [address] Sep, [facility] [place] [facility] [address] [id number] [place] [address] 2895 Sep, [facility] [place] [facility] [address] [id number] [place] [address] Sep, [facility] [place] [facility] [address] [id number] [place] [address] 1283 Aug, [facility] [place] [facility] [address] [id number] [place] [address] 1419 Aug, [facility] [place] [facility] [address] [id number] [place] [address] 2293 Aug, [facility] [place] [facility] [address] [id number] [place] [address] 4382 Aug, [facility] [place] [facility] [address] [id number] [place] [address]102 Aug, [facility] [place] [facility] [address] [id number] [place] [address] 8770 Aug, [facility] [place] [facility] [address] [id number] [address] Aug, [facility] [place] [facility] [address] [id number] [place] [address] 3077 Aug, [facility] [place] [facility] [address] [id number] [place] [address] 5140 Jul, [facility] [place] [facility] [address] [id number], [place] [address] Jul, [facility] [place] [facility] [address] [id number], [place] [address] 137[address] Jul, [facility] [place] [facility] [address] [id number] [place] [address] 8727 Jul, [facility] [place] [facility] [address] [id number] [place] [address]- 9159 Jul, [facility] [place] [facility] [address] [id number] [place] [address] 8996 Jun, [facility] [place] [facility] [address] [id number] [place] [address]- 9066 Jun, [facility] [place] [facility] [address] [id number] [place] [address]- 6284 Jun, [facility] [place] [facility] [address] [id number] [place] [address]- 1072 Jun, [facility] [place] [facility] [address] [id number] [place] [address] 6514 Jun, [facility] [place] [facility] [address] [id number] [place] [address]- 6130 May, [facility] [place] [facility] [address] [id number] [place] [address]- 2524 May, [facility] [place] [facility] [address] [id number] [place] [address]- 7776 Apr, [facility] [place] [facility] [address] [id number] [place] [address]- 2233 Apr, [facility] [place] [facility] [address] [id number] [place] [address]- 0201 Apr, [facility] [place] [facility] [address] [id number] [place] [address]- 6387 Apr, [facility] [place] [facility] [address] [id number] [place] [address]- 0200 Apr, [facility] [place] [facility] [address] [id number] [place] [address]- 8737 Apr, [facility] [place] [facility] [address] [id number] [place] [address] 2349 Mar, [facility] [place] [facility] [address] [id number] [place] [address]- 5024 Mar, [facility] [place] [facility] [address] [id number] [place] [address]- 4021 Mar, [facility] [place] [facility] [address] [id number] [place] [address]- 1181 Mar, [facility] [place] [facility] [address] [id number] [place] [address]- 4410 Mar, [facility] [place] [facility] [address] [id number] [place] [address]- 3903 Mar, [facility] [place] [facility] [address] [id number] [place] [address] 6108 Mar, [facility] [place] [facility] [address] [id number] [place] [address]- 6345 Mar, [facility] [place] [facility] [address] [id number] [place] [address]- 2739 Mar, [facility] [place] [facility] [address] [id number] [place] [address]- 7896 Mar, [facility] [place] [facility] [address] [id number] [place] [address]- 4352 Mar, [facility] [place] [facility] [address] [id number] [place] [address]- 0311 Mar, [facility] [place] [facility] [address] [id number] [place] [address]- 8558 Mar, [facility] [place] [facility] [address] [id number] [place] [address]- 5136 Mar, [facility] [place] [facility] [address] [id number] [place] [address] 1037 07 Mar, 2014 [facility] [place] [facility] [address] [id number] [place] [address] 0290 Mar, [facility] [place] [facility] [address] [id number] [place] [address] 3502 February, [facility] [place] [facility] [address] [id number] [place] [address] 3191 February, [facility] [place] [facility] [address] [id number] [place] [address]- 3550 February, [facility] [place] [facility] [address] [id number] [place] [address] 8480 February, [facility] [place] [facility] [address] [id number] [place] [address]- 6770 February, [facility] [place] [facility] [address] [id number] [place] [address]- 4854 February, [facility] [place] [facility] [address] [id number] [place] [address]- 2184 February, [facility] [place] [facility] [address] [id number] [place] [address] 2114 February, [facility] [place] [facility] [address] [id number] [place] [address]- 1624 Jan, [facility] [place] [facility] [address] [id number] [place] [address] 0674 Jan, [facility] [place] [facility] [address] [id number] [place] [address]- 5160 Dec, [facility] [place] [facility] [address] [id number] [place] [address]- 7374 Dec, [facility] [place] [facility] [address] [id number] [place] [address] 3012 Dec, [facility] [place] [facility] [address] [id number] [place] [address]- 0798 Dec, [facility] [place] [facility] [address] [id number] [place] [address]- 8548 Dec, [facility] [place] [facility] [address] [id number] [place] [address]- 5517 24 Dec, 2013 [facility] [place] [facility] [address] [id number] [place] [address] 1034 19 Dec, 2013 [facility] [place] [facility] [address] [id number] [place] [address] 8767 19 Dec, 2013 [facility] [place] [facility] [address] [id number] [place] [address] 8276 17 Dec, 2013 [facility] [place] [facility] [address] [id number] [place] [address]- 5593 17 Dec, 2013 [facility] [place] [facility] [address] [id number] [place] [address]- 5779 14 Dec, 2013 [facility] [place] [facility] [address] [id number] [place] [address]- 6862 14 Dec, 2013 [facility] [place] [facility] [address] [id number] [place] [address] 8558 Dec, [facility] [place] [facility] [address] [id number] [place] [address]- 4777 Dec, [facility] [place] [facility] [address] [id number] [place] [address]- 0655 Nov, [facility] [place] [facility] [address] [id number] [place] [address]- 4563 Nov, [facility] [place] [facility] [address] [id number] [place] [address]- 4079 Oct, [facility] [place] [facility] [address] [id number] [place] [address]- 9968 Oct, [facility] [place] [facility] [address] [id number] [place] [address]- 7970 Oct, [facility] [place] [facility] [address] [id number] [place] [address]- 6173 Oct, [facility] [place] [facility] [address] [id number] [place] [address]- 4213 Oct, [facility] [place] [facility] [address] [id number] [place] [address]- 8345 Oct, [facility] [address] [id number] [place] [address]- 0255 Oct, [facility] [address] [id number] [place] [address]- 0245 31 Sep, 2013 [facility] [address] [id number] [place] [address]- 9365 Sep, [facility] [address] [id number] [place] [address]- 9760 Sep, [facility] [address] [id number] [place] [address]- 4227 Sep, [facility] [address] [id number] [place] [address]- 1829 Sep, [facility] [address] [id number] [place] [address]- 3778 Sep, [facility] [address] [id number] [place] [address]- 3442 Sep, [facility] [address] [id number] [place] [address]- 0611 Sep, [facility] [address] [id number] [place] [address]- 3505 Sep, [facility] [address] [id number] [place] [address]- 4051 Sep, [facility] [address] [id number] [place] [address]- 7513 Sep, [facility] [place] [facility] [address] [id number] [place] [address]- 0389 Sep, [facility] [address] [id number] [place] [address]- 7479 16 Sep, 2013 [facility] [address] [id number] [place] [address]- 5409 16 Sep, 2013 [facility] [place] [facility] [address] [id number] [place] [address]- 0906 Sep, [facility] [place] [facility] [address] [id number] [place] [address]- 6561 Sep, [facility] [place] [facility] [address] [id number] [place] [address]- 4515 Sep, [facility] [place] [facility] [address] [id number] [place] [address]- 0614 Sep, [facility] [place] [facility] [address] [id number] [place] [address]- 4614 Sep, [facility] [place] [facility] [address] [id number] [place] [address]- 5132 Aug, [facility] [place] [facility] [address] [id number] [place] [address]- 0870 Aug, [facility] [place] [facility] [address] [id number] [place] [address]- 1845 Aug, [facility] [place] [facility] [address] [id number] [place] [address]- 6196 Aug, [facility] [place] [facility] [address] [id number] [place] [address]- 8252 Aug, [facility] [place] [facility] [address] [id number], [place] [address]- 5060 Aug, [facility] [place] [facility] [address] [id number] [place] [address]- 5835 Aug, [facility] [place] [facility] [address] [id number] [place] [address]- 4623 Aug, [facility] [place] [facility] [address] [id number] [place] [address]- 0957 Aug, [facility] [place] [facility] [address] [id number] [place] [address]- 9486 Aug, [facility] [place] [facility] [address] [id number] [place] [address]- 3914 Aug, [facility] [place] [facility] [address] [id number] [place] [address]- 5297 Aug, [facility] [place] [facility] [address] [id number] [place] [address]- 0955 Aug, [facility] [place] [facility] [address] [id number] [place] [address]- 2157 Aug, [facility] [place] [facility] [address] [id number] [place] [address]- 4234 Aug, [facility] [place] [facility] [address] [id number] [place] [address]- 3523 Aug, [facility] [place] [facility] [address] [id number] [place] [address]- 9512 Aug, [facility] [place] [facility] [address] [id number] [place] [address]- 3410 Jul, [facility] [place] [facility] [address] [id number] [place] [address]- 0257 Jul, [facility] [place] [facility] [address] [id number] [place] [address]- 3783 Jul, [facility] [place] [facility] [address] [facility] [id number] [place] [address]- 1270 Jul, [facility] [place] [facility] [address] [id number] [place] [address]- 7050 Jul, [facility] [place] [facility] [address] [id number] [place] [address]- 3560 Jul, [facility] [place] [facility] [address] [id number] [place] [address]- 8594 Jul, [facility] [place] [facility] [address] [id number] [place] [address]- 4105 Jun, [facility] [place] [facility] [address] [id number] [place] [address]687 20 Jun, 2013 [facility] [address] [facility] [id number], [place] [address]- 9807 17 Jun, 2013 [facility] [address] [facility] [id number], [place] [address]- 7169 Jun, [facility] [address] [facility] [id number], [place] [address]- 9182 06 Jun, 2013 [facility] [address] [facility] [id number], [place] [address]- 8471 06 Jun, 2013 [facility] [address] [facility] [id number], [place] [address]- 9318 05 Jun, 2013 [facility] [address] [facility] [id number], [place] [address]- 4500 Jun, [facility] [id number], [place] [address]- 6594 May, [facility] [id number], [place] [address]- 6094 May, [facility] [id number], [place] [address]- 5556 May, [facility] [address] [id number], [place] [address]- 4691 May, [facility] [address] [id number], [place] [address]- 1366 May, [facility] [address] [id number], [place] [address]- 6005 May, [facility] [address] [id number], [place] [address]- 5613 May, [facility] [address] [id number], [place] [address]- 5888 May, IMMUNIZATIONS No Known Immunizations SOCIAL HISTORY [...] heel of feet Surgical History appendectomy [facility] 1995 Surgical History salpingectomy [facility] Surgical History bladder surgery-stretch [facility] 2003 Surgical History exploratory laparoscopy [facility] 1995 Surgical History amputation, toe (R great) Surgical History amputation, (R forefoot) 2014 Surgical History amputation, toe Left second 12/2016 Surgical History amputation, 4th left toe 02/2017 Hospitalization History Left foot cellulitis, left 2nd toe amputation-[facility] 12/23 Hospitalization History Surgery Hospitalizations
--- OUTSIDE RECORDS SUMMARY | 2018-08-22 09:40 | XMS REPORT ---
Author Author [facility] Address [address] [place] [address] Care Team Providers Care S[employer]r Name Role Phone LUDIVINADEE DEE FAIR[place] Unavailable PROBLEMS Type Condition ICD9-CM Code CQY86-AS Code Onset Dates Condition Status SNOMED Code Problem Subclinical hypothyroidism E03.9 Active 65554580 Problem History of amputation of hallux Z89.419 Active 243663726 Problem Hypertriglyceridemia E78.1 Active 548281985 Problem Type 2 diabetes mellitus with other specified complication E11.69 Active 218622316 Problem Type 2 diabetes mellitus with diabetic polyneuropathy E11.42 Active 195703683 Problem Status post amputation of toe of left foot Z89.422 Active 402439661 Problem Pain in left foot M79.672 Active 29859869 Problem Other chronic pain G89.29 Active 13562053 Problem Ulcer of right heel L97.419 Active 914835577 Problem Intrinsic eczema L20.84 Active 12143972 Problem Irregular menstrual cycle N92.6 Active 81857092 Problem Type 2 diabetes mellitus with other skin complications E11.628 Active 01956179 Problem Type 2 diabetes mellitus with diabetic chronic 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 Active 823035228 Problem Chronic prescription opiate use Z79.891 Active 090413503 Problem Pain in right foot M79.671 Active 93569171 Problem Severe episode of recurrent major depressive disorder, without psychotic features F33.2 Active 38615847 Problem Tonsillolith J35.8 Active 2939987 Problem Chronic kidney disease, stage III (moderate) N18.3 Active 827750452 Problem Essential hypertension I10 Active 96571210 Problem Moderate persistent asthma without complication J45.40 Active 007780661 Problem Chronic migraine G43.709 Active 39037750 Problem Type 2 diabetes mellitus with foot ulcer E11.621 Active 15310825 Problem DM neuro manif type II E11.49 Active 81473636 Problem Anxiety disorder, unspecified F41.9 Active 603116246 Problem Obesity E66.9 Active 543457947 ALLERGIES No Information ENCOUNTERS Encounter Location Date Diagnosis [place] [address] [address] February, [place] [address] [address] 19 Dec, 2017 Type 2 diabetes mellitus with diabetic polyneuropathy E11.42 [place] [address] 81022- 3641 15 Dec, 2017 [place] [address] 44414- 2416 14 Dec, 2017 [place] [address] 30237- 0544 13 Dec, 2017 Chronic kidney disease, stage III (moderate) N18.3 [facility] [place] [address] [address] 09 Dec, 2017 Nausea R11.0 and Diarrhea, unspecified type R19.7 [place] [address] 04112- 7318 07 Dec, 2017 Chronic kidney disease, stage III (moderate) N18.3 and Type 2 diabetes mellitus with diabetic polyneuropathy E11.42 [place] [address] [place] [id number] [place] [address] 25052- 9570 06 Dec, 2017 [place] [address] 54995- 3340 23 Nov, 2017 Ulcer of right heel L97.419 and Type 2 diabetes mellitus with diabetic polyneuropathy E11.42 [facility] [address] [place] [id number] [place] [address] [id number] Nov, Dental examination Z01.20 [place] [address] 65927- 7411 22 Nov, 2017 Open wound of right foot, initial encounter S91.301A [facility] [address] [address] Nov, Open wound of right foot, initial encounter S91.301A ; Non- intractable vomiting with nausea, unspecified vomiting type R11.2 and BMI 60.0- 69.9, adult Z68.44 [place] [address] [place] [id number] [place] [address] 97533- 3965 Nov, [place] [address] 72141- 8646 Nov, Other chronic pain G89.29 [place] [address] 84319- 8412 Oct, Cellulitis of right lower limb L03.115 [place] [address] 56025- 3200 Oct, [place] [address] 19354- 8320 Oct, [place] [address] 39372- 8472 Oct, Cat scratch W55.03XA ; Cellulitis of right lower limb L03.115 ; Acute nasopharyngitis J00 ; BMI 60.0-69.9, adult Z68.44 and Cough R05 [place] [address] [place] [id number] [place] [address] 46409- 1854 Oct, Cat scratch W55.03XA ; Cutaneous abscess of right lower extremity L02.415 and Cellulitis of right lower limb L03.115 [place] [address] [place] [id number] [place] [address] 57702- 3139 Oct, Type 2 diabetes mellitus with diabetic polyneuropathy E11.42 [place] [address] 75823- 2924 Oct, Other chronic pain G89.29 [place] [address] [place] [id number] [place] [address] 33981- 4639 Aug, [place] [address] 11749- 0912 Jul, Other chronic pain G89.29 [place] [address] 90473- 3187 Jul, [place] [address] 30926- 1827 Jul, Chronic kidney disease, stage III (moderate) N18.3 [place] [address] 97204- 0870 04 Jul, 2017 Type 2 diabetes mellitus with diabetic polyneuropathy E11.42 ; Essential hypertension I10 ; Irregular menstrual cycle N92.6 ; Hypertriglyceridemia E78.1 ; Anxiety disorder, unspecified F41.9 ; Severe episode of recurrent major depressive disorder, without psychotic features F33.2 ; Tonsillolith J35.8 ; Intrinsic eczema L20.84 ; Subclinical hypothyroidism E03.9 ; Viral pharyngitis J02.9 and Encounter for immunization Z23 [place] [address] 90708- 5591 13 Jun, 2017 Essential hypertension I10 [address] [address]- 4[address] 08 Jun, 2017 [place] [address] 80388- 8809 Jun, [place] [address] 46889- 3956 May, Moderate persistent asthma without complication J45.[address] 17976- 0742 17 May, 2017 Pain in right foot M79.671 ; Pain in left foot M79.672 ; Other chronic pain G89.29 and Chronic prescription opiate use Z79.891 [place] [address] 53053- 5670 May, [place] [address] 54898- 6492 May, [place] [address] [place] [id number] [place] [address] 32404- 5402 Apr, [place] [address] [place] [id number] [place] [address] 41505- 0084 Apr, Chronic migraine G43.709 [place] [address] [place] [id number] [place] [address] 81053- 0133 Apr, Essential hypertension I10 ; Hypertriglyceridemia E78.1 and Chronic migraine G43.709 [place] [address] 71977- 7896 Apr, [place] [address] 09738- 1006 Apr, Sore throat J02.[address] 25049- 1909 Apr, [place] [address] 25277- 1292 Mar, Strep pharyngitis J02.0 and Non-intractable vomiting with nausea, unspecified vomiting type R11.2 [place] [id number] [place] [address] 46090- 9727 Mar, [place] [address] [place] [id number] [place] [address] 16281- 2620 Mar, [place] [address] [place] [id number] [place] [address] 72078- 9031 Mar, [place] [address] [place] [id number] [place] [address] 00162- 5687 Mar, Type 2 diabetes mellitus with diabetic polyneuropathy E11.42 ; Moderate persistent asthma without complication J45.40 ; Status post amputation of toe of left foot Z89.422 ; Acute seasonal allergic rhinitis, unspecified trigger J30.2 and Left shoulder pain, unspecified chronicity M25.512 [place] [id number] [place] [address] 04838- 9176 Mar, [facility] [address] [address] February, Pre-op evaluation Z01.818 ; Type 2 diabetes mellitus with diabetic polyneuropathy E11.42 and Type 2 diabetes mellitus with foot ulcer E11.621 [place] [address], [place] [address] February, [facility] [address] [place] [id number] [place] [address] 28618- 1754 February, [facility] [address] [place] [id number] [place] [address] 80098- 4318 February, Toe infection L08.9 and Type 2 diabetes mellitus with other specified complication E11.69 [place] [address] [place] [id number] [place] [address] 19252- 1726 February, [place] [address] [place] [id number] [place] [address] 92848- 9955 Jan, Type 2 diabetes mellitus with diabetic polyneuropathy E11.42 [place] [address] [place] [id number] [place] [address] 88916- 4115 Jan, [place] [address] [place] [id number] [place] [address] 41086- 9544 Jan, Right upper quadrant pain R10.11 and Intractable vomiting with nausea, unspecified vomiting type R11.2 [place] [address] [place] [id number] [place] [address] 32404- 9150 Jan, Hypertriglyceridemia E78.1 and Essential hypertension I10 [place] [address] [place] [id number] [place] [address] 41792- 1131 Jan, Essential hypertension I10 ; Type 2 diabetes mellitus with diabetic polyneuropathy E11.42 and Hypertriglyceridemia E78.1 [place] [address] [address]- 6893 Dec, Type 2 diabetes mellitus with diabetic polyneuropathy E11.42 [facility] [address] [place] [id number] [place] [address] 14068- 8990 15 Dec, 2016 Hypertriglyceridemia E78.1 ; Essential hypertension I10 ; Type 2 diabetes mellitus with diabetic polyneuropathy E11.42 ; Anxiety disorder , unspecified F41.9 and Moderate persistent asthma without complication J45.40 [place] [address] [place] [id number] [place] [address] 41482- 9601 Dec, Type 2 diabetes mellitus with diabetic polyneuropathy E11.42 [facility] [address] [place] [id number] [place] [address] [id number] Dec, [place] [address] [place] [id number] [place] [address] 65667- 0281 Nov, [place] [address] [place] [id number] [place] [address] 46918- 0143 Nov, [place] [address] [place] [id number] [place] [address] 85843- 5257 Nov, [facility] [address] [place] [id number] [place] [address] 05107- 9561 Nov, Toe infection L08.9 [place] [address] [place] [id number] [place] [address] 74101- 4949 Nov, [place] [address] [place] [id number] [place] [address] 04687- 2285 Oct, History of amputation of hallux Z89.419 [place] [address] [place] [address] 36803- 8158 Oct, Type 2 diabetes mellitus with diabetic polyneuropathy E11.42 [place] [address] [place] [address] 55949- 0234 Oct, Type 2 diabetes mellitus with diabetic polyneuropathy E11.42 [place] [address] [place] [address] 45459- 0350 Oct, Acute osteomyelitis of left foot M86.172 ; Pre-op exam Z01.818 and Type 2 diabetes mellitus with diabetic polyneuropathy E11.42 [facility] [address] [place] [address] 89008- 7414 Oct, Foot ulcer, left, with unspecified severity L97.529 ; Acute osteomyelitis of left foot M86.172 and Type 2 diabetes mellitus with diabetic polyneuropathy E11.42 [facility] [address] [place] [id number] [place] [address] 44001- 4277 Sep, [facility] [address] [place] [id number] [place] [address] 92187- 6600 Sep, Intractable vomiting with nausea, unspecified vomiting type R11.2 and Right upper quadrant pain R10.11 [facility] [address] [place] [id number] [place] [address] 24222- 6555 Aug, [facility] [address] [place] [id number] [place] [address] 89454- 0311 Jul, [facility] [address] [place] [id number] [place] [address] 48842- 9166 Jul, Preop examination Z01.818 [facility] [address] [place] [id number] [place] [address] 29938- 0509 Jul, [facility] [address] [place] [id number] [place] [address] 43943- 2922 Jul, [facility] [address] [place] [id number] [place] [address] 17215- 2160 Jul, Chronic osteomyelitis of left foot M86.672 and Ulcer of left foot, with unspecified severity L97.529 [facility] [address] [place] [address] 75453- 0862 Jul, Non-pressure chronic ulcer of other part of left foot with unspecified severity L97.529 [facility] [address] [place] [id number] [place] [address] 76750- 0898 Jul, [facility] [address] [place] [id number] [place] [address] 43905- 6525 Jul, [facility] [address], [place] [address]- 9208 Jun, [facility] [address] [place] [id number] [place] [address] 02796- 8477 Jun, [facility] [address] [place] [id number] [place] [address] 86434- 0259 Jun, [facility] [address] [place] [id number] [place] [address] 22969- 9946 Jun, Right upper quadrant pain R10.11 [facility] [address] [place] [id number] [place] [address] 82566- 6325 Jun, [place] [address] [place] [id number] [place] [address] 42975- 5902 Jun, Intractable vomiting with nausea, unspecified vomiting type R11.2 [place] [address] [place] [id number] [place] [address] 55244- 5564 13 Jun, 2016 Right upper quadrant pain R10.11 ; Migraine with aura and with status migrainosus, not intractable G43.101 and Intractable vomiting with nausea, unspecified vomiting type R11.2 [place] [address] [place] [id number] [place] [address] 48836- 7953 Jun, [place] [address] [place] [id number] [place] [address] 85310- 1323 Jun, Gastroenteritis K52.9 [place] [address] [place] [address] 67294- 1512 May, [facility] [address] [place] [id number] [place] [address] 19234- 6114 May, Hypertriglyceridemia E78.1 ; Essential hypertension I10 ; Type 2 diabetes mellitus with diabetic polyneuropathy E11.42 ; Moderate persistent asthma without complication J45.40 ; Type 2 diabetes mellitus with foot ulcer E11.621 ; Other chronic pain G89.29 ; Pain in right leg M79.604 ; Pain of left leg M79.605 ; Rash and nonspecific skin eruption R21 and Anxiety disorder, unspecified F41.9 [facility] [address] [place] [id number] [place] [address] 35726- 5455 May, Essential hypertension I10 ; Hypertriglyceridemia E78.1 ; Upper respiratory infection J06.9 ; Subclinical hypothyroidism E03.9 and Type 2 diabetes mellitus with diabetic polyneuropathy E11.42 [facility] [address] [place] [id number] [place] [address] 96156- 5489 Apr, Hypertriglyceridemia E78.1 ; Subclinical hypothyroidism E03.9 ; Essential hypertension I10 and Type 2 diabetes mellitus with diabetic polyneuropathy E11.42 [place] [address] [place] [id number] [place] [address] 27144- 5721 Mar, [place] [address] [place] [id number] [place] [address] 48658- 7654 Mar, Ulcer of right heel L97.419 [place] [address] [place] [id number] [place] [address] 94408- 8528 Mar, [place] [address] [place] [id number] [place] [address] 92726- 1491 Mar, [place] [address] [place] [id number] [place] [address] 89818- 7535 February, [place] [address] [place] [id number] [place] [address] 83127- 4199 February, Ulcer of right heel L97.419 and DM neuro manif type II E11.49 [facility] [address] [place] [id number] [place] [address] 14803- 3434 Jan, [facility] [address] [place] [id number] [place] [address] 48417- 9290 Jan, Ulcer of right heel L97.419 ; Type 2 diabetes mellitus with foot ulcer E11.621 and Non-pressure chronic ulcer of other part of left foot with unspecified severity L97.529 [facility] [address] [place] [id number] [place] [address] 76400- 7003 Jan, [facility] [address], [place] [address]- 7298 Jan, [facility] [address] [place] [id number] [place] [address] 91488- 5665 Jan, Infection of toenail L03.039 [facility] [address] [place] [id number] [place] [address] 82856- 3644 Jan, Blister of toe of left foot, initial encounter S90.425A and Type 2 diabetes mellitus with diabetic polyneuropathy E11.42 [facility] [address] [place] [id number] [place] [address] 49188- 7075 Jan, [facility] [address] [place] [id number] [place] [address] 90475 -3209 Jan, Sore throat J02.9 and Strep pharyngitis J02.0 [facility] [address] [place] [id number] [place] [address] 35144- 0223 Dec, Type 2 diabetes mellitus with diabetic polyneuropathy E11.42 ; Upper respiratory infection J06.9 ; Cough R05 and Asthma exacerbation J45.901 [facility] [address] [place] [id number] [place] [address] 04544- 6329 Oct, [facility] [address] [place] [id number] [place] [address] 48788- 6702 Oct, [facility] [address] [place] [id number] [place] [address] 81878- 7645 Oct, [facility] [address] [place] [address] 94498- 9609 Oct, [facility] [address] [place] [id number] [place] [address] 29870- 5357 Sep, [facility] [address] [place] [id number] [place] [address] 25084- 3377 24 Aug, 2015 Anxiety disorder, unspecified F41.9 and Obesity E66.9 [facility] [address] [place] [id number] [place] [address] 87529- 0625 Aug, Moderate persistent asthma without complication J45.40 [facility] [address] [place] [id number] [place] [address] 03829- 1119 Aug, Anxiety disorder, unspecified F41.9 [facility] [address] [place] [id number] [place] [address] 65727- 3452 Aug, Chronic migraine G43.709 ; Encounter for immunization Z23 ; Hypertriglyceridemia E78.1 ; Type 2 diabetes mellitus with diabetic polyneuropathy E11.42 ; Moderate persistent asthma without complication J45.40 and Morbid obesity E66.01 [facility] [address] 14059- 5960 Jul, [facility] [address] [place] [id number] [place] [address] 92794- 6421 Jul, [facility] [address] 18475- 1734 Jul, [facility] [address] [place] [id number] [place] [address] 56315- 2259 Jul, Subclinical hypothyroidism E03.9 [facility] [address] [place] [id number] [place] [address] 15712- 7676 Jun, Essential hypertension, benign 401.1 ; Diabetic ulcer of lower extremity 250.80 ; Asthma 493.90 ; Diabetes mellitus type II, uncontrolled 250.02 and Hyperlipidemia associated with type 2 diabetes mellitus 250.80 [facility] [address] [place] [id number] [place] [address] 78721- 1841 Jun, [facility] [address] [place] [id number] [place] [address] 75878- 0851 Jun, [facility] [address] [place] [id number] [place] [address] 74846- 7106 May, [facility] [address] [place] [id number] [place] [address] 61155- 3183 Apr, [facility] [address] [place] [address]- 0463 Apr, Viral upper respiratory infection 465.9 and Asthma 493.90 [facility] [address] [place] [id number] [place] [address] 50696- 7481 Mar, Abnormal ankle brachial index 796.4 [facility] [address] [place] [id number] [place] [address] 29943- 3686 February, [facility] [address] [place] [id number] [place] [address] 72935- 1265 February, Essential hypertension, benign 401.1 [facility] [address] [place] [id number] [place] [address] 26208- 7000 February, Diabetic peripheral neuropathy 250.60 ; Ulcer of heel and midfoot 707.14 and Decreased pedal pulses 785.9 [facility] [address] [place] [id number] [place] [address] 69484- 7876 February, [facility] [address] [place] [id number] [place] [address] 00987- 0668 February, [facility] [address] [place] [id number] [place] [address] 01434- 5637 Jan, [facility] [address] [place] [id number] [place] [address] 14946- 4036 Jan, [facility] [address], [place] [address]- 7926 Dec, [facility] [address] [place] [id number] [place] [address] 31941- 7639 Dec, [facility] [address], [place] [address]- 5282 Nov, [facility] [address] [place] [id number] [place] [address] 636979- 2350 Nov, [facility] [address], [place] [address]- 6304 Nov, [facility] [address] [place] [address]- 2880 Nov, [facility] [place] [facility] [address] [id number] [place] [address]- 6866 Nov, 2014 [facility] [place] [facility] [address] [id number] [place] [address]- 2546 Nov, 2014 [facility] [place] [facility] [address] [id number] [place] [address]- 5936 Nov, 2014 [facility] [place] [facility] [address] [id number] [place] [address]- 2547 Nov, [facility] [place] [facility] [address] [id number] [place] [address]- 2805 Nov, [facility] [place] [facility] [address] [id number] [place] [address]- 7343 Oct, [facility] [place] [facility] [address] [id number] [place] [address]- 4228 Oct, [facility] [place] [facility] [address] [id number] [place] [address]- 6949 Oct, [facility] [place] [facility] [address] [id number] [place] [address]- 4495 Oct, [facility] [place] [facility] [address] [id number] [place] [address]- 9017 Oct, [facility] [place] [facility] [address] [id number] [place] [address] Oct, [facility] [place] [facility] [address] [id number] [place] [address] Oct, [facility] [place] [facility] [address] [id number] [place] [address] Oct, [facility] [place] [facility] [address] [id number] [place] [address] Oct, [facility] [place] [facility] [address] [id number] [place] [address] Oct, [facility] [place] [facility] [address] [id number] [place] [address] Oct, [facility] [place] [facility] [address] [id number] [place] [address] Oct, [facility] [place] [facility] [address] [id number] [place] [address] Oct, [facility] [place] [facility] [address] [id number] [place] [address] Sep, [facility] [place] [facility] [address] [id number] [place] [address] Sep, [facility] [place] [facility] [address] [id number] [place] [address] Sep, [facility] [place] [facility] [address] [id number] [place] [address] Sep, [facility] [place] [facility] [address] [id number] [place] [address] Sep, [facility] [place] [facility] [address] [id number] [place] [address] Sep, [facility] [place] [facility] [address] [id number] [place] [address] Sep, [facility] [place] [facility] [address] [id number] [place] [address] Sep, [facility] [place] [facility] [address] [id number] [place] [address] Sep, [facility] [place] [facility] [address] [id number] [place] [address] Sep, [facility] [place] [facility] [address] [address] [id number] [place] [address] Sep, [facility] [place] [facility] [address] [id number] [place] [address] Sep, [facility] [place] [facility] [address] [id number] [place] [address] Sep, [facility] [place] [facility] [address] [id number] [place] [address] 3232 Sep, [facility] [place] [facility] [address] [id number] [place] [address] Sep, [facility] [place] [facility] [address] [id number] [place] [address] Sep, [facility] [place] [facility] [address] [id number] [place] [address] Aug, [facility] [place] [facility] [address] [id number] [place] [address] Aug, [facility] [place] [facility] [address] [id number] [place] [address] 9361 Aug, [facility] [place] [facility] [address] [id number] [place] [address] 1173 Aug, [facility] [place] [facility] [address] [id number] [place] [address] 06[address] Aug, [facility] [place] [facility] [address] [id number] [place] [address] 3364 Aug, [facility] [place] [facility] [address] [facility] [id number] [place] [address] 8273 Aug, [facility] [place] [facility] [address] [id number] [place] [address] 8943 Aug, [facility] [place] [facility] [address] [id number] [place] [address] 4757 Jul, [facility] [place] [facility] [address] [id number] [place] [address] 7731 Jul, [facility] [place] [facility] [address] [id number] [place] [address]- 8837 30 Jul, 2014 [facility] [place] [facility] [address] [id number] [place] [address]- 9131 15 Jul, 2014 [facility] [place] [facility] [address] [id number] [place] [address] 0878 Jul, [facility] [place] [facility] [address] [id number] [place] [address] 0632 Jun, [facility] [place] [facility] [address] [id number] [place] [address]- 7976 Jun, [facility] [place] [facility] [address] [id number] [place] [address]- 6058 Jun, [facility] [place] [facility] [address] [id number] [place] [address]- 0482 Jun, [facility] [place] [facility] [address] [id number] [place] [address]- 7360 Jun, [facility] [place] [facility] [address] [id number] [place] [address]- 2126 May, [facility] [place] [facility] [address] [id number] [place] [address]- 6389 May, [facility] [place] [facility] [address] [id number] [place] [address] 5496 Apr, [facility] [place] [facility] [address] [id number] [place] [address]- 3095 Apr, [facility] [place] [facility] [address] [id number] [place] [address]- 5098 Apr, [facility] [place] [facility] [address] [id number] [place] [address]- 8535 Apr, [facility] [place] [facility] [address] [id number] [place] [address]- 8671 Apr, [facility] [place] [facility] [address] [id number] [place] [address]- 6333 Apr, [facility] [place] [facility] [address] [id number] [place] [address] Mar, [facility] [place] [facility] [address] [id number] [place] [address]- 3132 Mar, [facility] [place] [facility] [address] [id number] [place] [address]- 0786 Mar, [facility] [place] [facility] [address] [id number] [place] [address]- 9498 Mar, [facility] [place] [facility] [address] [id number] [place] [address]- 6863 Mar, [facility] [place] [facility] [address] [id number] [place] [address]- 3247 Mar, [facility] [place] [facility] [address] [id number] [place] [address] 4665 Mar, [facility] [place] [facility] [address] [id number] [place] [address]- 6819 Mar, [facility] [place] [facility] [address] [id number] [place] [address]- 7672 Mar, [facility] [place] [facility] [address] [id number] [place] [address]- 5510 Mar, [facility] [place] [facility] [address] [id number] [place] [address]- 9350 Mar, [facility] [place] [facility] [address] [id number] [place] [address]- 6872 Mar, [facility] [place] [facility] [address] [id number] [place] [address]- 0698 Mar, [facility] [place] [facility] [address] [id number] [place] [address]- 5815 Mar, [facility] [place] [facility] [address] [id number] [place] [address]- 4298 Mar, [facility] [place] [facility] [address] [id number] [place] [address]- 4575 Mar, [facility] [place] [facility] [address] [id number] [place] [address] 3872 February, [facility] [place] [facility] [address] [id number] [place] [address]- 6985 February, [facility] [address] [id number] [place] [address] 4852 February, [facility] [place] [facility] [address] [id number] [place] [address] 6922 February, [facility] [place] [facility] [address] [id number] [place] [address] 4702 February, [facility] [place] [facility] [address] [id number] [place] [address] 265[address] February, [facility] [place] [facility] [address] [id number] [place] [address]- 7569 February, [facility] [place] [facility] [address] [id number] [place] [address] 4160 February, [facility] [place] [facility] [address] [id number] [place] [address] 3542 Jan, [facility] [place] [facility] [address] [id number] [place] [address]- 9751 Jan, [facility] [place] [facility] [address] [id number] [place] [address]- 6311 Dec, [facility] [place] [facility] [address] [id number] [place] [address]- 7247 Dec, [facility] [place] [facility] [address] [id number] [place] [address]- 8028 Dec, [facility] [place] [facility] [address] [id number] [place] [address]- 7371 Dec, [facility] [place] [facility] [address] [id number] [place] [address]- 6414 Dec, [facility] [place] [facility] [address] [id number] [place] [address]- 6429 Dec, [facility] [place] [facility] [address] [id number] [place] [address]- 0871 Dec, [facility] [place] [facility] [address] [id number] [place] [address]- 6705 19 Dec, 2013 [facility] [place] [facility] [address] [id number] [place] [address]- 9370 17 Dec, 2013 [facility] [place] [facility] [address] [id number] [place] [address]- 4753 17 Dec, 2013 [facility] [place] [facility] [address] [id number] [place] [address]- 3552 14 Dec, 2013 [facility] [place] [facility] [address] [id number] [place] [address]- 2116 Dec, [facility] [place] [facility] [address] [id number] [place] [address]- 8645 Dec, [facility] [place] [facility] [address] [id number] [place] [address]- 8900 Dec, [facility] [place] [facility] [address] [id number] [place] [address]- 7025 Nov, [facility] [place] [facility] [address] [id number] [place] [address]- 3830 Nov, [facility] [place] [facility] [address] [id number] [place] [address]- 3314 Oct, [facility] [place] [facility] [address] [id number] [place] [address]- 3452 Oct, [facility] [place] [facility] [address] [id number] [place] [address]- 8321 Oct, [facility] [place] [facility] [address] [id number] [place] [address]- 5275 Oct, [facility] [place] [facility] [address] [id number] [place] [address]- 1396 Oct, [facility] [place] [facility] [address] [id number] [place] [address]- 5105 Oct, [facility] [place] [facility] [address] [id number] [place] [address]- 2178 06 Oct, 2013 [facility] [address] [id number] [place] [address]- 6800 31 Sep, 2013 [facility] [address] [id number] [place] [address]- 3296 30 Sep, 2013 [facility] [address] [id number] [place] [address]- 9966 30 Sep, 2013 [facility] [place] [facility] [address] [id number] [place] [address]- 2716 29 Sep, 2013 [facility] [address] [id number] [place] [address]- 4210 Sep, [facility] [address] [id number] [place] [address]- 8635 Sep, [facility] [address] [id number] [place] [address]- 7630 Sep, [facility] [address] [id number] [place] [address]- 6456 Sep, [facility] [address] [id number] [place] [address]- 9976 24 Sep, 2013 [facility] [address] [id number] [place] [address]- 2563 24 Sep, 2013 [facility] [address] [id number] [place] [address]- 0536 2013 [facility] [place] [facility] [address] [id number] [place] [address] 2543 2013 [facility] [place] [facility] [address] [id number] [place] [address]- 0616 16 Sep, 2013 [facility] [place] [facility] [address] [id number] [place] [address]- 2546 16 Sep, 2013 [facility] [address] [id number] [place] [address] Sep, [facility] [place] [facility] [address] [id number] [place] [address]- 2820 Sep, [facility] [address] [id number] [place] [address]- 4622 Sep, [facility] [place] [facility] [address] [id number] [place] [address]- 2866 Sep, [facility] [address] [id number] [place] [address]- 2779 Sep, [facility] [address] [id number] [place] [address]- 3345 Aug, [facility] [place] [facility] [address] [id number] [place] [address]- 0036 Aug, [facility] [address] [id number] [place] [address]- 4438 Aug, [facility] [address] [id number] [place] [address]- 3197 Aug, [facility] [address] [id number] [place] [address]- 6234 Aug, [facility] [address] [id number] [place] [address]- 8613 Aug, [facility] [place] [facility] [address] [id number] [place] [address]- 1499 Aug, [facility] [place] [facility] [address] [id number] [place] [address]- 9975 Aug, [facility] [place] [facility] [address] [id number] [place] [address]- 5607 Aug, [facility] [place] [facility] [address] [id number] [place] [address]- 4057 Aug, [facility] [place] [facility] [address] [id number] [place] [address]- 6394 Aug, [facility] [place] [facility] [address] [id number] [place] [address]- 2546 Aug, [facility] [place] [facility] [address] [id number] [place] [address]- 9772 Aug, [facility] [place] [facility] [address] [id number] [place] [address]- 8047 Aug, [facility] [place] [facility] [address] [id number] [place] [address]- 1983 Aug, [facility] [place] [facility] [address] [id number] [place] [address]- 8513 Aug, [facility] [place] [facility] [address] [id number] [place] [address]- 5232 Aug, [facility] [place] [facility] [address] [id number] [place] [address]- 4977 Jul, [facility] [place] [facility] [address] [id number] [place] [address]- 3969 Jul, [facility] [place] [facility] [address] [id number] [place] [address]- 7334 Jul, [facility] [place] [facility] [address] [id number] [place] [address]- 8858 Jul, [facility] [place] [facility] [address] [id number] [place] [address]- 6823 Jul, [facility] [place] [facility] [address] [id number] [address]- 8704 Jul, [facility] [place] [facility] [address] [id number], [place] [address]- 2259 Jul, [facility] [place] [facility] [address] [id number] [place] 4827 27 Jun, 2013 [facility] [place] [facility] [address] [id number] [place] [address]13 20 Jun, 2013 [facility] [place] [facility] [address] [id number] [place] [address]101 17 Jun, 2013 [facility] [place] [facility] [address], [place] [address] 10 Jun, 2013 [facility] [address], [place] [address]- 3033 Jun, [facility] [address], [place] [address]- 3944 Jun, [facility] [address], [place] [address]- 9822 05 Jun, 2013 [facility] [address], [place] [address]- 4630 Jun, [facility] [address], [place] [address]- 0837 May, [facility] [address], [place] [address]- 0724 May, [facility] [address], [place] [address]- 7363 May, [facility] [address], [place] [address]- 9823 May, [facility] [address], [place] [address]- 2573 May, [facility] [address], [place] [address]- 4493 May, [facility] [address], [place] [address]- 4875 May, [facility] [id number] [address] 4218 May, IMMUNIZATIONS No Known Immunizations SOCIAL HISTORY [...] [facility] 1995 Surgical History salpingectomy [facility] Surgical History bladder surgery-stretch [facility] 2003 Surgical History exploratory laparoscopy [facility] 1995 Surgical History amputation, toe (R great) Surgical History amputation, (R forefoot) 2015 Surgical History amputation, toe Left second 12/2016 Surgical History amputation, 4th left toe 02/2017 Hospitalization History Left foot cellulitis, left 2nd toe amputation-[facility] 12/23 Hospitalization History Surgery Hospitalizations
--- OUTSIDE RECORDS SUMMARY | 2018-08-22 09:40 | XMS REPORT ---
Author Author LUDIVINA STEPHANIE [facility] Address [address] [place] [address] Care Team Providers Care Pharmacy Technology Instructor Name Role Phone LUDIVINADEE DEE FAIRCHILDHANY Unavailable PROBLEMS Type Condition ICD9-CM Code [id number] Code Onset Dates Condition Status SNOMED Code Problem Type 2 diabetes mellitus with other specified complication E11.69 Active 005899637 Problem Other chronic pain G89.29 Active 54842422 Problem Status post amputation of toe of left foot Z89.422 Active 937215183 Problem Intrinsic eczema L20.84 Active 00766637 Problem Type 2 diabetes mellitus with other skin complications E11.628 Active 46019974 Problem Severe episode of recurrent major depressive disorder, without psychotic features F33.2 Active 14533872 Problem Type 2 diabetes mellitus with diabetic chronic 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 Active 149536912 Problem Type 2 diabetes mellitus with diabetic polyneuropathy E11.42 Active 664809749 Problem Pain in right foot M79.671 Active 02363990 Problem Pain in left foot M79.672 Active 83522199 Problem Tonsillolith J35.8 Active 0422974 Problem Chronic prescription opiate use Z79.891 Active 968331234 Problem Chronic migraine G43.709 Active 47790906 Problem Chronic kidney disease, stage III (moderate) N18.3 Active 314002052 Problem Irregular menstrual cycle N92.6 Active 24729610 Problem Moderate persistent asthma without complication J45.40 Active 689405342 Problem Obesity E66.9 Active 070841641 Problem Type 2 diabetes mellitus with foot ulcer E11.621 Active 62723657 Problem Subclinical hypothyroidism E03.9 Active 65053778 Problem Essential hypertension I10 Active 41607925 Problem DM neuro manif type II E11.49 Active 68977084 Problem Hypertriglyceridemia E78.1 Active 222142735 Problem Anxiety disorder, unspecified F41.9 Active 848350275 Problem History of amputation of hallux Z89.419 Active 077438867 ALLERGIES No Information SOCIAL HISTORY Never Assessed [...] osteomyelitis, site unspecified Surgical History appendectomy [facility] 1995 Surgical History salpingectomy [facility] Surgical History bladder surgery-stretch [facility] Surgical History exploratory laparoscopy [facility] 1995 Surgical History amputation, toe (R great) Surgical History amputation, (R forefoot) 2014 Surgical History amputation, toe Left second 12/2016 Surgical History amputation, 4th left toe 02/2017 Hospitalization History Left foot cellulitis, left 2nd toe amputation-[facility] 12/23
--- OUTSIDE RECORDS SUMMARY | 2018-08-22 09:41 | XMS REPORT ---
Author Author LUDIVINA STEPHANIE [facility] Address [address] [place] [address] Care Team Providers Care Instrumentation Chemist Name Role Phone LUDIVINADEE DEE FAIRCHILDHANY Unavailable PROBLEMS Type Condition ICD9-CM Code GAL03-NO Code Onset Dates Condition Status SNOMED Code Problem Type 2 diabetes mellitus with foot ulcer E11.621 Active 33654107 Problem History of amputation of hallux Z89.419 Active 494577227 Problem DM neuro manif type II E11.49 Active 59386821 Problem Pain in right foot M79.671 Active 71784793 Problem Pain in left foot M79.672 Active 68716396 Problem Status post amputation of toe of left foot Z89.422 Active 649769564 Problem Type 2 diabetes mellitus with other specified complication E11.69 Active 083974807 Problem Other chronic pain G89.29 Active 02455573 Problem Chronic prescription opiate use Z79.891 Active 191111591 Problem Irregular menstrual cycle N92.6 Active 85937601 Problem Moderate persistent asthma without complication J45.40 Active 221654723 Problem Essential hypertension I10 Active 56481096 Problem Type 2 diabetes mellitus with diabetic polyneuropathy E11.42 Active 810482645 Problem Hypertriglyceridemia E78.1 Active 748988190 Problem Type 2 diabetes mellitus with other skin complications E11.628 Active 33776740 Problem Chronic migraine G43.709 Active 07161198 Problem Anxiety disorder, unspecified F41.9 Active 639260070 Problem Subclinical hypothyroidism E03.9 Active 55505074 Problem Obesity E66.9 Active 942093955 ALLERGIES Unknown Allergies SOCIAL HISTORY No smoking Hx information available PLAN OF CARE VITAL SIGNS MEDICATIONS Medication Instructions Dosage Frequency Start Date End Date Duration Status Metoprolol Tartrate 50 mg Orally Twice a day 1 tablet with food 12h 90 days Active Hydrochlorothiazide 25 MG Orally Once a day 1 tablet 24h 90 days Active Sertraline HCl 50 mg Orally Once a day 1 tablet 24h 90 days Active NovoLog Flexpen 100 UNIT/ML Subcutaneous 3 times a day 30 units 8h Jan, 90 days Active Hydrocodone-Acetaminophen 5-325 MG Orally every 4- 6 hrs as needed 1 tablet February, Active Metformin HCl 1000 MG Orally Twice a day 1 tablet with meals 12h May, 90 days Active Atorvastatin Calcium 40 MG Orally Once a day 1 tablet 24h Aug, 90 days Active Probiotic - Active Phenergan 25 MG Rectal every 4-6 hours as needed 1 suppository as needed Sep, Active Gabapentin 300 MG Orally 3 times a day 1 capsule 8h Aug, 90 days Active Montelukast Sodium 10 mg Orally Once a day 1 tablet in the evening 24h 90 days Active Albuterol Sulfate 90 mcg/actuation Inhalation every 4-6 hours as needed 2 puffs May, Active Fenofibrate 160 MG Orally Once a day 1 tablet with a meal 24h May, 90 days Active Lisinopril 40 mg Orally Once a day 1 tablet 24h Jul, 90 days Active Levemir Flexpen 100 UNIT/ML subcutaneously 2 times a day 50 units 12h Active Nystatin 100,000 unit/gram apply to the affected area(s) by Topical route 4-8 times per day as needed Jun, Active Pulmicort Flexhaler 90 MCG/ACT Inhalation Twice a day 1 puff 12h Jun, Active Multivitamin 1 Tablet 1 time per day May, Active cromolyn 4 % instill 2 drops into affected eye(s) by Ophthalmic route 2 times per day Jun, Active Promethazine HCl 25 MG Orally every 4 hours 1 tablet as needed 4h 20 Jun, 2016 Active RESULTS No Results PROCEDURES No Known procedures IMMUNIZATIONS No Known Immunizations
[2018-08-22] MEDS ORDERED: VANCOMYCIN INJECTION 1,000 MG in NS (IVPB) 250 ML IV ONE (10:00)
[2018-08-22] MEDS ORDERED: CLINDAMYCIN 900 MG/50 ML IVPB 50 ML IV ONE (10:00)
[2018-08-22] MEDS ORDERED: CEFEPIME INJECTION 2,000 MG in NS (IVPB) 50 ML IV ONE (11:15)
--- NOTE | 2018-08-22 11:22 | ED General ---
General Chief Complaint: Lower Extremity Stated Complaint: LEG SWELLING Nursing Triage Note: PT PRESENTS TO ER WITH COMPLAINT OF RIGHT CALF SWELLING AND REDNESS. PT STATES THE REDNESS AND OOZING STARTED TODAY. HAS BEEN RECIEVING TREATMENT FOR ULCER IN RIGHT FOOT. Nursing Sepsis Screen: No Definite Risk History of Present Illness Date Seen by Provider: Aug 22, 2018 Time Seen by Provider: 08:33 Initial Comments This 42-year-old woman presents to emergency room with swelling, discoloration, and weeping of the right lower extremity. She first noticed the symptoms this morning. It is quite painful. She has a diabetic ulcer on the right heel as well. She previously received wound care for this ulcer but was dismissed from the wound care clinic due to missing appointments. She is afebrile at this time but is markedly tachycardic. Sepsis is presumed. Patient is an insulin- dependent diabetic as well. She has prior amputations of the right toes. Allergies and Home Medications Allergies Coded Allergies: Penicillins (Unverified Allergy, Severe, ANAPHYLAXIS, 06/08/13) Home Medications Albuterol Sulfate 6.7 Gm Hfa.aer.ad, 2 PUFF INH Q4H PRN for SHORTNESS OF BREATH, (Reported) Aspirin/Acetaminophen/Caffeine 1 Tab Tablet, 2 TAB PO DAILY PRN for MIGRAINE, ( Reported) ALTERNATES WITH IBUPROFEN Atorvastatin Calcium 40 Mg Tablet, 40 MG PO HS, (Reported) Budesonide 90 Mcg Aer.pow.ba, 1 PUFF INH BID, (Reported) Cromolyn Sodium 10 Ml Drops, 2 DROPS OU DAILY PRN for ALLERGIES, (Reported) Fenofibrate 160 Mg Tablet, 160 MG PO HS, (Reported) Gabapentin 300 Mg Capsule, 300 MG PO TID, (Reported) Hydrochlorothiazide 25 Mg Tablet, 25 MG PO DAILY, (Reported) Hydrocodone Bit/Acetaminophen 1 Each Tablet, 1 TAB PO Q4H PRN for SEVERE PAIN, ( Reported) Hydrocodone Bit/Acetaminophen 1 Each Tablet, 1-2 TAB PO Q4-6HR PRN for PAIN PRN PAIN Prescribed by: JERMAIN BROWN on 03/19/17 1337 Ibuprofen 200 Mg Tablet, 800 MG PO TID PRN for MIGRAINE, (Reported) TAKES 4 (200MG) TABLETS - ALTERNATES WITH IBUPROFEN Insulin Aspart 300 Units/3 Ml Solution, SQ SLIDING/SCALE PRN for HIGH BLOOD SUGAR, (Reported) Insulin Aspart 300 Units/3 Ml Solution, 30 UNITS SC AC, (Reported) Insulin Detemir 100 Unit/1 Ml Insuln.pen, 50 UNITS SC BID, (Reported) Lisinopril 40 Mg Tablet, 40 MG PO DAILY, (Reported) Metformin HCl 1,000 Mg Tablet, 1,000 MG PO BID, (Reported) Metoprolol Tartrate 50 Mg Tablet, 50 MG PO BID, (Reported) Montelukast Sodium 10 Mg Tablet, 10 MG PO HS, (Reported) Multivitamin 1 Each Tablet, 1 TAB PO DAILY, (Reported) Nystatin 15 Gm Cream.gm., TP BID PRN for RASH, (Reported) Promethazine HCl 25 Mg Tablet, 25 MG PO TID PRN for NAUSEA/VOMITING, (Reported) Promethazine HCl 25 Mg Supp.rect, 25 MG RC Q4H PRN for NAUSEA/VOMITING, ( Reported) Sertraline HCl 50 Mg Tablet, 50 MG PO DAILY, (Reported) Patient Home Medication List Home Medication List Reviewed: Yes Review of Systems Review of Systems Constitutional: no symptoms reported EENTM: no symptoms reported Respiratory: no symptoms reported Cardiovascular: see HPI Gastrointestinal: no symptoms reported Genitourinary: no symptoms reported : No Musculoskeletal: see HPI Skin: see HPI Psychiatric/Neurological: No Symptoms Reported Hematologic/Lymphatic: No Symptoms Reported Immunological/Allergic: no symptoms reported Past Axnfkkb-Lsgspx-Zmsbgg Hx Past Med/Social Hx: Reviewed and Corrections made Patient Social History Alcohol Use: Denies Use Recreational Drug Use: No Smoking Status: Never a Smoker Recent Foreign Travel: No Contact w/Someone Who Travel: No Recent Infectious Disease Expo: No Recent Hopitalizations: No Immunizations Up To Date Tetanus Booster (TDap): Less than 5yrs Date of Pneumonia Vaccine: Jul 25, 2015 Seasonal Allergies Seasonal Allergies: Yes Past Medical History Surgeries: Yes (FALLOPIAN TUBE REMOVAL, I&D OF LT BUTTOCK WOUND, WISDOM TEETH, RT FOOT x2) Amputation (right distal foot), Appendectomy, Orthopedic Respiratory: Yes (HARD TO BREATH WHEN LYING FLAT ON BACK) Asthma Currently Using CPAP: No Currently Using BIPAP: No Cardiac: Yes High Cholesterol, Hypertension Neurological: Yes Headaches /Migraines, Neuropathy Reproductive Disorders: No Genitourinary: Yes Kidney Stones, UTI-Chronic Gastrointestinal: No (APPY) Gall Bladder Disease Musculoskeletal: Yes (OSTEOMYELITIS, DIABETIC NEUROPATHY, ARTHRITIS IN HANDS) Amputee Endocrine: Yes Diabetes, Insulin dep Loss of Vision: Denies Hearing Impairment: Denies Cancer: No Psychosocial: No Integumentary: No Blood Disorders: No Adverse Reaction/Blood Tranf: No Family Medical History Coronary thrombosis 19 MOTHER Diabetes mellitus 19 MOTHER Glaucoma 19 MOTHER Hypertension 19 MOTHER Retinal detachment Physical Exam-Suspected Sepsis Physical Exam Vital Signs Vital Signs - First Documented 08/22/18 08:32 Temp 99.9 Pulse 121 Resp 17 B/P (MAP) 101/78 (86) Pulse Ox 99 O2 Delivery Room Air Capillary Refill : Less Than 3 Seconds Blood Pressure Mean: 86 Height, Weight, BMI Height: 5'6.00" Weight: 345lbs. 0.0oz. 156.506856xc; 53.6 BMI Method:Stated General Appearance: WD/WN, Mild Distress, Obese HEENT: PERRL/EOMI, Normal ENT Inspection Neck: Normal Inspection Respiratory: Lungs Clear, Normal Breath Sounds, No Accessory Muscle Use, No Respiratory Distress Cardiovascular: No Murmur, Tachycardia Gastrointestinal: Normal Bowel Sounds, Non Tender, Soft Extremity: Normal Capillary Refill, Other (marketed blotchy erythema of the right lower extremity below the knee. Distal foot has been amputated. Capillary refill is still breast. There is serous weeping from multiple breaks in the skin. 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 Norm as Tested Skin: other (see extremity exam above) Focused Exam Sepsis Stage: Severe Sepsis Possible Source: Skin/Soft Tissue Lactate Level 08/22/18 08:45: Lactic Acid Level 1.51 Time of Focused Exam: 11:05 Respiratory: Lungs Clear, Normal Breath Sounds, No Accessory Muscle Use, No Respiratory Distress Cardiovascular: No Murmur, Normal Peripheral Pulses, Tachycardia Capillary Refill: Less Than 3 Seconds Skin: other (erythema and weeping of the right lower extremity) Lactic Acid Level Within 3hrs of presentation: Admin 30ml/kg IBW due to BMI>30, Admin ABX, Blood cultures prior to ABX's, Focus exam, Lactate level Progress/Results/Core Measures Suspected Sepsis Recent Fever Within 48 Hours: No Infection Criteria Present: None New/Unexplained Altered Menta: No Sepsis Screen: No Definite Risk SIRS Temperature:99.9 Pulse: 121 Respiratory Rate: 17 Laboratory Tests 08/22/18 08:45: White Blood Count 18.0H Blood Pressure 101 /78 Mean: 86 08/22/18 08:45: Lactic Acid Level 1.51 Laboratory Tests 08/22/18 08:45: Creatinine 1.77H, INR Comment 1.3, Platelet Count 238, Total Bilirubin 0.8 Results/Orders Lab Results Laboratory Tests Test 08/22/18 08:45 Range/Units White Blood Count 18.0 H 4.3-11.0 10^3/uL Red Blood Count 3.86 L 4.35-5.85 10^6/uL Hemoglobin 11.6 11.5-16.0 G/DL Hematocrit 34 L 35-52 % Mean Corpuscular Volume 88 80-99 FL Mean Corpuscular Hemoglobin 30 25-34 PG Mean Corpuscular Hemoglobin Concent 34 32-36 G/DL Red Cell Distribution Width 13.4 10.0-14.5 % Platelet Count 238 130-400 10^3/uL Mean Platelet Volume 10.7 H 7.4-10.4 FL Neutrophils (%) (Auto) 83 H 42-75 % Lymphocytes (%) (Auto) 11 L 12-44 % Monocytes (%) (Auto) 6 0-12 % Eosinophils (%) (Auto) 0 0-10 % Basophils (%) (Auto) 0 0-10 % Neutrophils # (Auto) 15.0 H 1.8-7.8 X 10^3 Lymphocytes # (Auto) 1.9 1.0-4.0 X 10^3 Monocytes # (Auto) 1.1 H 0.0-1.0 X 10^3 Eosinophils # (Auto) 0.0 0.0-0.3 10^3/uL Basophils # (Auto) 0.0 0.0-0.1 10^3/uL Neutrophils % (Manual) 66 % Lymphocytes % (Manual) 10 % Monocytes % (Manual) 8 % Band Neutrophils 16 % Polychromasia SLIGHT Prothrombin Time 16.4 H 12.2-14.7 SEC INR Comment 1.3 0.8-1.4 Activated Partial Thromboplast Time 32 24-35 SEC Sodium Level 131 L 135-145 MMOL/L Potassium Level 4.0 3.6-5.0 MMOL/L Chloride Level 99 98-107 MMOL/L Carbon Dioxide Level 20 L 21-32 MMOL/L Anion Gap 12 5-14 MMOL/L Blood Urea Nitrogen 39 H 7-18 MG/DL Creatinine 1.77 H 0.60-1.30 MG/DL Estimat Glomerular Filtration Rate 31 BUN/Creatinine Ratio 22 Glucose Level 244 H 70-105 MG/DL Lactic Acid Level 1.51 0.50-2.00 MMOL/L Calcium Level 9.1 8.5-10.1 MG/DL Corrected Calcium 9.6 8.5-10.1 MG/DL Total Bilirubin 0.8 0.1-1.0 MG/DL Aspartate Amino Transf (AST/SGOT) 107 H 5-34 U/L Alanine Aminotransferase (ALT/SGPT) 41 0-55 U/L Alkaline Phosphatase 52 40-136 U/L Total Protein 7.8 6.4-8.2 GM/DL Albumin 3.4 3.2-4.5 GM/DL My Orders Orders - ARDEN SALDAÑA MD Cbc With Automated Diff (08/22/18 08:39) Comprehensive Metabolic Panel (08/22/18 08:39) Blood Culture (08/22/18 08:39) Sputum Culture (08/22/18 08:39) Urinalysis (08/22/18 08:39) Urine Culture (08/22/18 08:39) Protime With Inr (08/22/18 08:39) Partial Thromboplastin Time (08/22/18 08:39) Chest 1 View, Ap/Pa Only (08/22/18 08:39) Saline Lock/Iv-Start (08/22/18 08:39) Saline Lock/Iv-Start (08/22/18 08:39) Vital Signs Adult Sepsis Patie Q15M (08/22/18 08:39) O2 (08/22/18 08:39) Remove Rings In Anticipation O (08/22/18 08:39) Lactic Acid Analyzer (08/22/18 08:39) Ns Iv 1000 Ml (Sodium Chloride 0.9%) (08/22/18 08:39) Fentanyl Injection (Sublimaze Injection (08/22/18 08:45) Saline Lock/Iv-Start (08/22/18 08:39) Ns Iv 1000 Ml (Sodium Chloride 0.9%) (08/22/18 08:39) Tibia/Fibula, Right, 2 Views (08/22/18 08:45) Foot, Right, 3 View (08/22/18 08:45) Us Right Low Ext [id number] (08/22/18 08:45) Us Venous Lower Ext Rt (08/22/18 08:45) Wound Culture (08/22/18 08:55) Wound Culture (08/22/18 08:55) Manual Differential (08/22/18 08:45) Clindamycin 900 Mg/50 Ml Ivpb (Cleocin P (08/22/18 10:00) Vancomycin Injection (Vancomycin Injecti (08/22/18 10:00) Cefepime Injection (Maxipime Injection) (08/22/18 11:15) Cho 60g/M 3snack (16-2000 Shahbaz) (08/22/18 Lunch) Medications Given in ED Current Medications Medications Dose Ordered Sig/Isabella Route Start Time Stop Time Status Last Admin Dose Admin Clindamycin Phosphate/Dextrose 50 ml @ 100 mls/hr ONCE ONCE IV 08/22/18 10:00 08/22/18 10:29 DC 08/22/18 10:32 100 MLS/HR Fentanyl Citrate 50 mcg ONCE ONCE IVP 08/22/18 08:45 08/22/18 08:46 DC 08/22/18 08:58 50 MCG Sodium Chloride 1,000 ml @ 0 mls/hr Q0M ONCE IV 08/22/18 08:39 08/22/18 08:46 DC 08/22/18 09:23 1,000 MLS/HR Vancomycin HCl 1000 mg/Sodium Chloride 250 ml @ 250 mls/hr ONCE ONCE IV 08/22/18 10:00 08/22/18 10:59 DC 08/22/18 11:11 250 MLS/HR Vital Signs/I&O 08/22/18 08:32 Temp 99.9 Pulse 121 Resp 17 B/P (MAP) 101/78 (86) Pulse Ox 99 O2 Delivery Room Air Capillary Refill : Less Than 3 Seconds Blood Pressure Mean: 86 Progress Note : Time: 11:24 Progress Note Septic workup was pursued. Patient received 2 L of IVF in the emergency room. This did improve her heart rate. Blood cultures were obtained. Clindamycin and vancomycin were initiated in the ER. Clindamycin was selected as the initial antibiotic due to penicillin allergy in the presence of skin infection. Vancomycin was started as well. Cefepime was considered but patient stated an anaphylactic reaction to penicillin. After further consideration meropenem will be selected as the next antibiotic to give as soon as the vancomycin is finished infusing. Patient received fentanyl for pain. Cultures of the leg drainage and the chronic right heel wound were obtained. Case was discussed with Dr. Winter who requested consultation with Dr. Harrington. Ultrasounds of the right lower extremity were pending at the time of admission. X-rays were obtained of the right foot and right tib-fib to rule out osteomyelitis. X-rays were unremarkable for acute problems. A 30 ML per kilogram fluid bolus was initiated in the ER and will be finished in the ICU as ordered. Diagnostic Imaging Diagonstic Imaging: Xray Plain Films/CT/US/NM/MRI: other (right foot) Comments NAME: JEANMARIE MATUTE [facility] REC#: [id number] PT STATUS: REG ER : 1975 PHYSICIAN: ARDEN SALDAÑA MD ADMIT DATE: 08/22/18/ER Signed Date of Exam: 08/22/18 FOOT, RIGHT, 3 VIEW INDICATION: Right foot pain 3 views of the right foot show postop changes from transmetatarsal amputation. Bones have healed. There is no evidence of osteoarthritis. There is no fracture or dislocation. IMPRESSION: Postop changes from transmetatarsal amputation of the right foot. No acute abnormality seen. Dictated by: Dictated on workstation # [id number] Dict: 08/22/18931 Trans: 08/22/18933 Interpreted by: AMADOU VELEZ MD Electronically signed by: AMADOU VELEZ MD 08/22/18933 Diagonstic Imaging: Xray Plain Films/CT/US/NM/MRI: leg Comments NAME: JEANMARIE MATUTE [facility] REC#: [id number] PT STATUS: REG ER : 1975 PHYSICIAN: ARDEN SALDAÑA MD ADMIT DATE: 08/22/18/ER Draft Date of Exam:08/22/18 TIBIA/FIBULA, RIGHT, 2 VIEWS INDICATION: Right calf swelling and redness. Time of exam 9:09 AM Frontal and lateral views of the tibia and fibula on the right were obtained. Alignment at the knee and ankle appears normal. Tibia and fibula appear intact. No fracture or bony destructive changes are seen. The soft tissues are unremarkable. IMPRESSION: No acute abnormality is identified. Dictated on workstation # [id number] Dict: 08/22/18931 Trans: 08/22/18937 [facility] [id number] Interpreted by: AUSTYN AGUDELO MD Diagonstic Imaging: Xray Plain Films/CT/US/NM/MRI: chest Comments NAME: JEANMARIE MATUTE [facility] REC#: [id number] PT STATUS: REG ER : 1975 PHYSICIAN: ARDEN SALDAÑA MD ADMIT DATE: 08/22/18/ER Signed Date of Exam: 08/22/18 CHEST 1 VIEW, AP/PA ONLY INDICATION: Calf swelling. EXAMINATION: Portable chest at 9:06 AM. FINDINGS: The heart size and pulmonary vascularity are normal. The lungs are clear. There are no effusions or pneumothoraces. IMPRESSION: Negative chest. Dictated by: Dictated on workstation # [id number] Dict: 08/22/18930 Trans: 08/22/18933 Interpreted by: AMADOU VELEZ MD Electronically signed by: AMADOU VELEZ MD 08/22/18933 Diagonstic Imaging: Ultrasound Plain Films/CT/US/NM/MRI: leg Comments NAME: JEANMARIE MATUTE [facility] REC#: [id number] PT STATUS: ADM IN : 1975 PHYSICIAN: ARDEN SALDAÑA MD ADMIT DATE: 08/22/18/ICU Signed Date of Exam: 08/22/18 US RIGHT LOW EXT [id number] INDICATION: Diabetic, weeping wounds on the right lower leg. Arterial Doppler right lower extremity. Duplex ultrasound done with grayscale, spectral waveform and color Doppler flow analysis. The patient has monophasic wave patterns throughout the right leg. Velocities appear normal. There is no occlusion or hemodynamically significant stenosis. IMPRESSION: Patient has monophasic wave pattern in the right leg with normal but adequate velocities. This could represent some aortoiliac vascular disease. Dictated by: Dictated on workstation # [id number] Dict: 08/22/18 1127 Trans: 08/22/181155 Interpreted by: AMADOU VELEZ MD Electronically signed by: AMADOU VELEZ MD 08/22/18 1156 NAME: JEANMARIE MATUTE [facility] REC#: [id number] PT STATUS: ADM IN : 1975 PHYSICIAN: ARDEN SALDAÑA MD ADMIT DATE: 08/22/18/ICU Signed Date of Exam: 08/22/18 US VENOUS LOWER EXT RT PROCEDURE: US right lower extremity venous. TECHNIQUE: Multiple Real-time grayscale images were obtained over the right lower extremity in various projections. Additional duplex Doppler and color Doppler images were also obtained. INDICATION: Right leg swelling. FINDINGS: The veins in the right leg have good color flow and compressibility. There is normal spontaneous and augmented flow. IMPRESSION: Negative venous Doppler right leg. Dictated by: Dictated on workstation # [id number] Dict: 08/22/18 1124 Trans: 08/22/181155 Interpreted by: AMADOU VELEZ MD Electronically signed by: AMADOU VELEZ MD 08/22/18 1156 Departure Communication (Admissions) Time/Spoke to Admitting Phy: 10:55 Dr. Winter Time/Spoke to Consulting Phy: 11:05 Dr. Harrington Impression Primary Impression: Severe sepsis Additional Impressions: Cellulitis of right lower extremity Acute renal failure Qualified Codes: N17.9 - Acute kidney failure, unspecified Diabetic ulcer of right foot Qualified Codes: E11.621 - Type 2 diabetes mellitus with foot ulcer; L97.419 - Non-pressure chronic ulcer of right heel and midfoot with unspecified severity Disposition: ADMITTED INPATIENT Condition: Improved Admissions Decision to Admit Reason: Admit from ER (General) Decision to Admit/Date: Aug 22, 2018 Time/Decision to Admit Time: 08:40 Departure-Patient Inst. Referrals: STEPHANIE FLORENCE MD (PCP/Family) Primary Care Physician ARDEN SALDAÑA MD Aug 22, 2018 11:22
--- NOTE | 2018-08-22 11:29 | Diagnostic Imaging Report ---
PROCEDURE: US right lower extremity venous. TECHNIQUE: Multiple Real-time grayscale images were obtained over the right lower extremity in various projections. Additional duplex Doppler and color Doppler images were also obtained. INDICATION: Right leg swelling. FINDINGS: The veins in the right leg have good color flow and compressibility. There is normal spontaneous and augmented flow. IMPRESSION: Negative venous Doppler right leg. Dictated by: Dictated on workstation # [id number]
[2018-08-22] MEDS ORDERED: PHARMACY TO DOSE IV SCH (11:45)
--- NOTE | 2018-08-22 11:47 | Pulmonary Consultation ---
History of Present Illness History of Present Illness Date of Consultation 08/22/18 11:41 Date of Admission Allergies and Home Medications Allergies Coded Allergies: Penicillins (Unverified Allergy, Severe, ANAPHYLAXIS, 06/08/13) Home Medications Albuterol Sulfate 1 Puff Puff, 2 PUFF IH Q4H PRN for SHORTNESS OF BREATH, ( Reported) 1 PUFF = 90 MCG Aspirin/Acetaminophen/Caffeine 1 Each Tablet, 1 TAB PO DAILY PRN for MIGRAINE, ( Reported) Atorvastatin Calcium 80 Mg Tablet, 80 MG PO HS, (Reported) Budesonide 180 Mcg Aer.pow.ba, 1 PUFF INH BID, (Reported) Cetirizine HCl 10 Mg Tablet, 10 MG PO DAILY, (Reported) Cromolyn Sodium 10 Ml Drops, 2 DROPS OU DAILY PRN for ALLERGIES, (Reported) Fenofibrate 160 Mg Tablet, 160 MG PO DAILY, (Reported) Gabapentin 800 Mg Tablet, 800 MG PO TID, (Reported) Hydrochlorothiazide 25 Mg Tablet, 25 MG PO DAILY, (Reported) Hydrocodone Bit/Acetaminophen 1 Each Tablet, 1 TAB PO Q4H PRN for PAIN-MODERATE, (Reported) Ibuprofen 200 Mg Tablet, 800 MG PO TID PRN for PAIN-MILD, (Reported) Insulin Aspart 300 Units/3 Ml Solution, SQ AC PRN for SLIDING SCALE, (Reported) Insulin Aspart 300 Units/3 Ml Solution, 35 UNITS SC TIDAC, (Reported) Insulin Detemir 100 Unit/1 Ml Insuln.pen, 50 UNITS SC BID, (Reported) Lisinopril 40 Mg Tablet, 40 MG PO DAILY, (Reported) Metformin HCl 1,000 Mg Tablet, 1,000 MG PO BID WITH MEALS, (Reported) Metoprolol Tartrate 50 Mg Tablet, 50 MG PO BID, (Reported) Montelukast Sodium 10 Mg Tablet, 10 MG PO HS, (Reported) Multivitamin 1 Each Tablet, 1 TAB PO DAILY, (Reported) Nystatin 15 Gm Cream..g., TP BID PRN for RASH, (Reported) Ondansetron HCl 8 Mg Tablet, 8 MG PO TID PRN for NAUSEA/VOMITING-1ST LINE, ( Reported) Sertraline HCl 100 Mg Tablet, 100 MG PO DAILY, (Reported) Past Cgbzaoe-Yoighg-Ghgvcj Hx Patient Social History Alcohol Use: Denies Use Recreational Drug Use: No Smoking Status: Never a Smoker Recent Foreign Travel: No Contact w/Someone Who Travel: No Recent Infectious Disease Expo: No Recent Hopitalizations: No Immunizations Up To Date Tetanus Booster (TDap): Less than 5yrs Date of Pneumonia Vaccine: Jul 25, 2015 Seasonal Allergies Seasonal Allergies: Yes Past Medical History Surgeries: Yes (FALLOPIAN TUBE REMOVAL, I&D OF LT BUTTOCK WOUND, WISDOM TEETH, RT FOOT x2) Appendectomy, Orthopedic Respiratory: Yes (HARD TO BREATH WHEN LYING FLAT ON BACK) Asthma Currently Using CPAP: No Currently Using BIPAP: No Cardiac: Yes High Cholesterol, Hypertension Neurological: Yes Headaches /Migraines, Neuropathy Reproductive Disorders: No Genitourinary: Yes Kidney Stones, UTI-Chronic Gastrointestinal: No (APPY) Gall Bladder Disease Musculoskeletal: Yes (OSTEOMYELITIS, DIABETIC NEUROPATHY, ARTHRITIS IN HANDS) Amputee Endocrine: Yes Diabetes, Insulin dep Loss of Vision: Denies Hearing Impairment: Denies Cancer: No Psychosocial: No Integumentary: No Blood Disorders: No Adverse Reaction/Blood Tranf: No Family Medical History Coronary thrombosis 19 MOTHER Diabetes mellitus 19 MOTHER Glaucoma 19 MOTHER Hypertension 19 MOTHER Retinal detachment Sepsis Event Evaluation Height, Weight, BMI Height: 5'6.00" Weight: 345lbs. 0.0oz. 156.466529dh; 53.6 BMI Method:Stated Exam Exam Vital Signs Date Time Temp Pulse Resp B/P (MAP) Pulse Ox O2 Delivery O2 Flow Rate FiO2 08/22/18 08:32 99.9 121 17 101/78 (86) 99 Room Air Height & Weight Height: 5'6.00" Weight: 345lbs. 0.0oz. 156.239312ah; 53.6 BMI Method:Stated Respiratory: Lungs Clear, Normal Breath Sounds, No Accessory Muscle Use, No Respiratory Distress Cardiovascular: No Murmur, Normal Peripheral Pulses, Tachycardia Capillary Refill: Less Than 3 Seconds Results Lab Laboratory Tests 08/22/18 08:45 Assessment/Plan Assessment/Plan Severe sepsis with cellulitis r/o osteomyelitis -Coffey cultures pending -IVF -vancomycin, cefepime, clindamycin, vancomycin Acute renal failure -IVF and monitor Morbid obesity SHERON BARRY DO Aug 22, 2018 11:47
--- NOTE | 2018-08-22 11:48 | Diagnostic Imaging Report ---
INDICATION: Diabetic, weeping wounds on the right lower leg. Arterial Doppler right lower extremity. Duplex ultrasound done with grayscale, spectral waveform and color Doppler flow analysis. The patient has monophasic wave patterns throughout the right leg. Velocities appear normal. There is no occlusion or hemodynamically significant stenosis. IMPRESSION: Patient has monophasic wave pattern in the right leg with normal but adequate velocities. This could represent some aortoiliac vascular disease. Dictated by: Dictated on workstation # [id number]
[2018-08-22] MEDS ORDERED: VANCOMYCIN 1500 MG/NS 500 ML IVPB IV NR ×2 (12:30)
--- NOTE | 2018-08-22 13:17 | History & Physical-Hospitalist ---
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 She reports that he right leg became painful and red yesterday and became feverish and nauseated so her brought her to the ER and was found to have a significantly elevated lactic acid and signs c/w severe sepsis so she is undergoing IVF aggressively along with abx coverage per her allergy profile and sepsis source. Dr Harrington and Dr Kam have been consulted and their expertise is appreciated. Source: patient, family, RN/MD Exam Limitations: no limitations Date Seen 08/22/18 Time Seen by a Provider: 12:45 Attending Physician Brigid Jackson DO PCP Sushma Hoskins MD Referring Physician Date of Admission Aug 22, 2018 at 11:30 Home Medications & Allergies Home Medications Reviewed patient Home Medication Reconciliation performed by pharmacy medication reconciliations biology specimen technician and/or nursing. Patients Allergies have been reviewed. Allergies Allergies Coded Allergies Penicillins (Unverified Allergy, Severe, ANAPHYLAXIS, 06/08/13) Past Zxewmal-Kpajqo-Htnvzy Hx Past Med/Social Hx: Reviewed Nursing Past Med/Soc Hx, Reviewed and Corrections made Patient Social History Marrital Status: Alcohol Use: Occasionally Uses Alcohol Beverage of Choice: Beer Recreational Drug Use: No Smoking Status: Never a Smoker Recent Foreign Travel: No Contact w/other who traveled: No Recent Hopitalizations: No Recent Infectious Disease Expo: No Immunizations Up To Date Tetanus Booster (TDap): Less than 5yrs Date of Pneumonia Vaccine: Jul 25, 2015 Seasonal Allergies Seasonal Allergies: Yes Past Medical History Surgeries: Amputation (right distal foot), Appendectomy, Orthopedic Respiratory: Asthma Currently Using CPAP: No Currently Using BIPAP: No Cardiac: High Cholesterol, Hypertension Neurological: Headaches /Migraines, Neuropathy Reproductive: No Genitourinary: Bladder Infection, Kidney Stones, UTI-Chronic Gastrointestinal: Gall Bladder Disease Musculoskeletal: Amputee Endocrine: Diabetes, Insulin dep Loss of Vision: Denies Hearing Impairment: Denies History of Blood Disorders: No Adverse Reaction to Blood Jasmine: No Family History Coronary thrombosis 19 MOTHER Diabetes mellitus 19 MOTHER Glaucoma 19 MOTHER Hypertension 19 MOTHER Retinal detachment Diabetes Review of Systems Constitutional: see HPI, chills, dizziness, fever, weakness EENTM: no symptoms reported Respiratory: no symptoms reported Cardiovascular: no symptoms reported Gastrointestinal: loss of appetite, nausea Genitourinary: decreased output Musculoskeletal: back pain, muscle cramps Skin: change in color, lesions, rash Psychiatric/Neurological: Anxiety All Other Systems Reviewed Negative Unless Noted: Yes Physical Exam Physical Exam Vital Signs Vital Signs - First Documented 08/22/18 08:32 Temp 99.9 Pulse 121 Resp 17 B/P (MAP) 101/78 (86) Pulse Ox 99 O2 Delivery Room Air Capillary Refill : Less Than 3 Seconds Height, Weight, BMI Height: 5'6.00" Weight: 345lbs. 0.0oz. 156.292946tv; 53.6 BMI Method:Stated General Appearance: WD/WN, Chronically ill, Moderate Distress, Obese Eyes: Bilateral Eye Normal Inspection, Bilateral Eye PERRL HEENT: PERRL/EOMI, Normal ENT Inspection, Pharynx Normal Neck: Full Range of Motion, Normal Inspection, Non Tender, Supple, Carotid Bruit Respiratory: Chest Non Tender, Lungs Clear, Normal Breath Sounds, No Accessory Muscle Use, No Respiratory Distress Cardiovascular: No Edema, No Gallop, No JVD, No Murmur, Normal Peripheral Pulses, Tachycardia Gastrointestinal: Normal Bowel Sounds, No Organomegaly, No Pulsatile Mass, Non Tender, Soft Back: Normal Inspection, No CVA Tenderness, No Vertebral Tenderness Extremity: Normal Capillary Refill, Normal Inspection, Normal Range of Motion, Non Tender, No Calf Tenderness, Pedal Edema Neurologic/Psychiatric: Alert, Oriented x3, No Motor/Sensory Deficits, Normal Mood/Affect Skin: Normal Color, Warm/Dry, Rash (right leg erythema and blistered and edematous) Lymphatic: No Adenopathy Results Results/Procedures Labs Laboratory Tests 08/22/18 08:45 Patient resulted labs reviewed. Assessment/Plan Admission Diagnosis Assessment: Severe sepsis Right leg cellulitis All 10 toes amputated in the past per Dr Brown [facility] Obesity Plan: IVF Abx Dr Kam and Roberto Harrington consultation are appreciated Admission Status: Inpatient Order (span 2 midnights) Reason for Inpatient Admission: Severe sepsis due to right le cellulitis in O will require 3 days of aggressive IVF and abx Diagnosis/Problems Diagnosis/Problems (1) Severe sepsis Status: Acute (2) Diabetes mellitus Status: Chronic Qualifiers: Diabetes mellitus type: type 2 Diabetes mellitus alf insulin use: with lace tearing supervisor use Diabetes mellitus complication status: with unspecified complications Qualified Codes: E11.8 - Type 2 diabetes mellitus with unspecified complications; Z79.4 - exchange administrator (current) use of insulin (3) Obesity Status: Chronic Qualifiers: Obesity type: due to excess calories Obesity classification: adult class 3 (BMI >= 40) Serious obesity comorbidity presence: with serious comorbidity Body mass index: BMI 50.0-59.9 Qualified Codes: E66.01 - Morbid (severe) obesity due to excess calories; Z68.43 - Body mass index (BMI) 50-59.9, adult (4) Leukocytosis Status: Acute Qualifiers: Leukocytosis type: leukemoid reaction Qualified Codes: D72.823 - Leukemoid reaction (5) Hyponatremia Status: Acute (6) Cellulitis of right lower extremity Status: Acute (7) Acute renal failure Status: Acute Qualifiers: Acute renal failure type: unspecified Qualified Codes: N17.9 - Acute kidney failure, unspecified ARDEN BERUMEN MED STUDENT 08/22/18 1645: History of Present Illness HPI/Chief Complaint CC: Cellulitis, Sepsis HPI: The patient is a 42 y/o female who presented to [facility] ED this morning with a complaint of a painful right lower leg. She is a Type I diabetic that has multiple amputations of toes on both feet. Her stated that she began acting strange on Wednesday morning and slept most of the day with loss of appetite. He described her leg as having a bluish bruised appearance that resembled a sprained ankle. The patient denies any recent injury but does have an ulcer that she has been treating. On Wednesday she did eat a few jello cups but was still not feeling well. This morning she said that the pain in her leg had become unbearable and asked her to take her to the ER. He stated that the leg was looking much worse with a deep red and purplish color. She states that she is currently in pain but feeling somewhat better and was going to attempt to eat dinner. Home Medications & Allergies Home Medications Albuterol Sulfate 6.7 Gm Hfa.aer.ad, 2 PUFF INH Q4H PRN for SHORTNESS OF BREATH, (Reported) Aspirin/Acetaminophen/Caffeine 1 Tab Tablet, 2 TAB PO DAILY PRN for MIGRAINE, ( Reported) ALTERNATES WITH IBUPROFEN Atorvastatin Calcium 40 Mg Tablet, 40 MG PO HS, (Reported) Budesonide 90 Mcg Aer.pow.ba, 1 PUFF INH BID, (Reported) Cromolyn Sodium 10 Ml Drops, 2 DROPS OU DAILY PRN for ALLERGIES, (Reported) Fenofibrate 160 Mg Tablet, 160 MG PO HS, (Reported) Gabapentin 300 Mg Capsule, 300 MG PO TID, (Reported) Hydrochlorothiazide 25 Mg Tablet, 25 MG PO DAILY, (Reported) Hydrocodone Bit/Acetaminophen 1 Each Tablet, 1 TAB PO Q4H PRN for SEVERE PAIN, ( Reported) Hydrocodone Bit/Acetaminophen 1 Each Tablet, 1-2 TAB PO Q4-6HR PRN for PAIN PRN PAIN Prescribed by: JERMAIN BROWN on 03/19/17 1337 Ibuprofen 200 Mg Tablet, 800 MG PO TID PRN for MIGRAINE, (Reported) TAKES 4 (200MG) TABLETS - ALTERNATES WITH IBUPROFEN Insulin Aspart 300 Units/3 Ml Solution, SQ SLIDING/SCALE PRN for HIGH BLOOD SUGAR, (Reported) Insulin Aspart 300 Units/3 Ml Solution, 30 UNITS SC AC, (Reported) Insulin Detemir 100 Unit/1 Ml Insuln.pen, 50 UNITS SC BID, (Reported) Lisinopril 40 Mg Tablet, 40 MG PO DAILY, (Reported) Metformin HCl 1,000 Mg Tablet, 1,000 MG PO BID, (Reported) Metoprolol Tartrate 50 Mg Tablet, 50 MG PO BID, (Reported) Montelukast Sodium 10 Mg Tablet, 10 MG PO HS, (Reported) Multivitamin 1 Each Tablet, 1 TAB PO DAILY, (Reported) Nystatin 15 Gm Cream.gm., TP BID PRN for RASH, (Reported) Promethazine HCl 25 Mg Tablet, 25 MG PO TID PRN for NAUSEA/VOMITING, (Reported) Promethazine HCl 25 Mg Supp.rect, 25 MG RC Q4H PRN for NAUSEA/VOMITING, ( Reported) Sertraline HCl 50 Mg Tablet, 50 MG PO DAILY, (Reported) Allergies Penicillins Past Rsxfqba-Tuktfc-Gzsbdx Hx Patient Social History Marrital Status: Alcohol Use: Occasionally Uses Alcohol Beverage of Choice: Beer Recreational Drug Use: No Smoking Status: Never a Smoker Past Medical History Surgeries: Amputation (right distal foot), Appendectomy, Orthopedic Respiratory: Asthma Currently Using CPAP: No Currently Using BIPAP: No Cardiac: High Cholesterol, Hypertension Neurological: Headaches /Migraines, Neuropathy Genitourinary: Kidney Stones, UTI-Chronic Gastrointestinal: Gall Bladder Disease Musculoskeletal: Amputee Endocrine: Diabetes, Insulin dep Loss of Vision: Denies Hearing Impairment: Denies Family History Coronary thrombosis 19 MOTHER Diabetes mellitus 19 MOTHER Glaucoma 19 MOTHER Hypertension 19 MOTHER Retinal detachment Review of Systems EENTM: no symptoms reported Respiratory: no symptoms reported Cardiovascular: no symptoms reported Skin: change in color, lesions Physical Exam Physical Exam General Appearance: No Apparent Distress, WD/WN HEENT: PERRL/EOMI, TMs Normal, Normal ENT Inspection, Pharynx Normal Respiratory: Chest Non Tender, Lungs Clear, Normal Breath Sounds, No Accessory Muscle Use, No Respiratory Distress Cardiovascular: Regular Rate, Rhythm, No Edema, No Gallop, No JVD, No Murmur, Normal Peripheral Pulses Neurologic/Psychiatric: Alert, Oriented x3, No Motor/Sensory Deficits, Normal Mood/Affect Assessment/Plan Admission Diagnosis Assessment: 1) Cellulitis 2) Sepsis 3) Diabetes Mellitus Plan: 1) admit to ICU 2) IV antibiotics BRIGID JACKSON DO Aug 22, 2018 13:17 ARDEN BERUMEN MED STUDENT Aug 22, 2018 16:45
[2018-08-22] MEDS ORDERED: ONDANSETRON 4 MG/2 ML (SDV) Z0FRAN IV PRN (13:30)
[2018-08-22] MEDS ORDERED: EPINEPHrine 1 MG INJECTION 5 MG in NS (IVPB) 250 ML IV SCH (13:30)
[2018-08-22] MEDS ORDERED: NS IV ONE (13:30)
[2018-08-22] MEDS: VASOPRESSIN INJECTION 20 UNIT in NS (IVPB) 100 ML IV SCH ×2 (13:32→23:32)
[2018-08-22] MEDS: NOREPINEPHRINE 4 MG in NS (IVPB) 250 ML IV SCH (13:32)
[2018-08-22] MEDS ORDERED: MULT-351 PO (14:11)
[2018-08-22] MEDS ORDERED: ONDA8TAB12 PO (14:12)
[2018-08-22] MEDS ORDERED: RT-ALBUINH IH (14:12)
[2018-08-22] MEDS ORDERED: ATOR80TA76 PO (14:12)
[2018-08-22] MEDS ORDERED: IBUP-2055 PO (14:12)
[2018-08-22] MEDS ORDERED: GABA800T2 PO (14:12)
[2018-08-22] MEDS ORDERED: ASPI-789 PO (14:12)
[2018-08-22] MEDS ORDERED: BUDE180A INH (14:12)
[2018-08-22] MEDS ORDERED: CETI10TA17 PO (14:12)
[2018-08-22] MEDS ORDERED: SERT100T8 PO (14:12)
[2018-08-22] MEDS ORDERED: NYST15CR TP (14:12)
[2018-08-22] MEDS: inSUlin ASPART (NovoLOG) 1 UNIT/0.01 ML (CHARGE PER UNIT) SC SCH ×3 (17:22→20:15)
[2018-08-22] MEDS ORDERED: LOPERAMIDE 2 MG (IMODIUM) CAP PO PRN (18:00)
--- NOTE | 2018-08-22 18:11 | Consultation ---
History of Present Illness History of Present Illness Patient Consulted On(corey/time) 08/22/18 18:07 Date Seen by Provider: Aug 22, 2018 Time Seen by Provider: 17:30 Reason for Visit: pain, swelling and blistering of right leg History of Present Illness pain, redness and swelling of the right anterior leg over 36 hour period with mental status changes and worsening of her symptoms over the leg early this morning, leading to an ER visit and subsequent admission. Allergies and Home Medications Allergies Coded Allergies: Penicillins (Unverified Allergy, Severe, ANAPHYLAXIS, 06/08/13) Home Medications Albuterol Sulfate 1 Puff Puff, 2 PUFF IH Q4H PRN for SHORTNESS OF BREATH, ( Reported) 1 PUFF = 90 MCG Aspirin/Acetaminophen/Caffeine 1 Each Tablet, 1 TAB PO DAILY PRN for MIGRAINE, ( Reported) Atorvastatin Calcium 80 Mg Tablet, 80 MG PO HS, (Reported) Budesonide 180 Mcg Aer.pow.ba, 1 PUFF INH BID, (Reported) Cetirizine HCl 10 Mg Tablet, 10 MG PO DAILY, (Reported) Cromolyn Sodium 10 Ml Drops, 2 DROPS OU DAILY PRN for ALLERGIES, (Reported) Fenofibrate 160 Mg Tablet, 160 MG PO DAILY, (Reported) Gabapentin 800 Mg Tablet, 800 MG PO TID, (Reported) Hydrochlorothiazide 25 Mg Tablet, 25 MG PO DAILY, (Reported) Hydrocodone Bit/Acetaminophen 1 Each Tablet, 1 TAB PO Q4H PRN for PAIN-MODERATE, (Reported) Ibuprofen 200 Mg Tablet, 800 MG PO TID PRN for PAIN-MILD, (Reported) Insulin Aspart 300 Units/3 Ml Solution, SQ AC PRN for SLIDING SCALE, (Reported) Insulin Aspart 300 Units/3 Ml Solution, 35 UNITS SC TIDAC, (Reported) Insulin Detemir 100 Unit/1 Ml Insuln.pen, 50 UNITS SC BID, (Reported) Lisinopril 40 Mg Tablet, 40 MG PO DAILY, (Reported) Metformin HCl 1,000 Mg Tablet, 1,000 MG PO BID WITH MEALS, (Reported) Metoprolol Tartrate 50 Mg Tablet, 50 MG PO BID, (Reported) Montelukast Sodium 10 Mg Tablet, 10 MG PO HS, (Reported) Multivitamin 1 Each Tablet, 1 TAB PO DAILY, (Reported) Nystatin 15 Gm Cream..g., TP BID PRN for RASH, (Reported) Ondansetron HCl 8 Mg Tablet, 8 MG PO TID PRN for NAUSEA/VOMITING-1ST LINE, ( Reported) Sertraline HCl 100 Mg Tablet, 100 MG PO DAILY, (Reported) Patient Home Medication List Home Medication List Reviewed: Yes Past Zsfgcnn-Frubym-Gbnuvh Hx Past Med/Social Hx: Reviewed and Corrections made Patient Social History Alcohol Use: Occasionally Uses Alcohol Beverage of Choice: Beer Recreational Drug Use: No Smoking Status: Never a Smoker Recent Foreign Travel: No Contact w/Someone Who Travel: No Recent Infectious Disease Expo: No Recent Hopitalizations: No Immunizations Up To Date Tetanus Booster (TDap): Less than 5yrs Date of Pneumonia Vaccine: Jul 25, 2015 Date of Influenza Vaccine: Aug 16, 2018 Seasonal Allergies Seasonal Allergies: Yes Past Medical History Surgeries: Yes (FALLOPIAN TUBE REMOVAL, I&D OF LT BUTTOCK WOUND, WISDOM TEETH, RT FOOT x2) Amputation (right distal foot), Appendectomy, Orthopedic Respiratory: Yes (HARD TO BREATH WHEN LYING FLAT ON BACK) Asthma Currently Using CPAP: No Currently Using BIPAP: No Cardiac: Yes High Cholesterol, Hypertension Neurological: Yes Headaches /Migraines, Neuropathy Reproductive Disorders: No Genitourinary: Yes Kidney Stones, UTI-Chronic Gastrointestinal: No (APPY) Gall Bladder Disease Musculoskeletal: Yes (OSTEOMYELITIS, DIABETIC NEUROPATHY, ARTHRITIS IN HANDS) Amputee Endocrine: Yes Diabetes, Insulin dep Loss of Vision: Denies Hearing Impairment: Denies Cancer: No Psychosocial: No Integumentary: No Blood Disorders: No Adverse Reaction/Blood Tranf: No Family Medical History Coronary thrombosis 19 MOTHER Diabetes mellitus 19 MOTHER Glaucoma 19 MOTHER Hypertension 19 MOTHER Retinal detachment Review of Systems-General Constitutional: chills, dizziness, fever, malaise, weakness Respiratory: no symptoms reported Cardiovascular: no symptoms reported Gastrointestinal: no symptoms reported Genitourinary: see HPI Musculoskeletal: see HPI Skin: see HPI Psychiatric/Neurological: No Symptoms Reported Physical Exam-General Problems Physical Exam Vital Signs Vital Signs - First Documented 08/22/18 08:32 Temp 99.9 Pulse 121 Resp 17 B/P (MAP) 101/78 (86) Pulse Ox 99 O2 Delivery Room Air Capillary Refill : Less Than 3 Seconds General Appearance: no apparent distress Respiratory: lungs clear Cardiovascular: regular rate, rhythm Gastrointestinal: non tender, soft Extremities: inflammation, other Neurologic/Psychiatric: oriented x 3 Skin: other Comments evidence of transmetatarsal amputation of the right foot and amputation of digits on the left. Blistering and erythema along the anterior aspect of the right leg with edema. Vascular studies satisfactory with no evidence of acute arterial insufficiency our venous thrombosis. Assessment/Plan Assessment/Plan Admission Diagnosis/Plan lady with acute cellulitis of the right lower extremity. Type I diabetes. Previous amputations. Reasonable to continue antibiotics to target Streptococcus Staphylococcus and anaerobes. Sliding scale of insulin for optimizing hypoglycemia. Would follow along. Admission Status: Inpatient Order (span 2 midnights) Reason for Inpatient Admission: management expected to last longer than 2 days Clinical Quality Measures DVT/VTE Risk/Contraindication: Risk Factor Score Per Nursin RFS Level Per Nursing on Admit: 4+=Very High BINDU QUILES MD Aug 22, 2018 18:11
[2018-08-22] MEDS: CLINDAMYCIN 600 MG/50 ML IVPB 50 ML IV SCH (18:15)
[2018-08-22] MEDS: CEFEPIME INJECTION 2,000 MG in NS (IVPB) 50 ML IV SCH (20:07)
[2018-08-22] MEDS: NS IV 1000 ML 1,000 ML IV SCH (20:07)
[2018-08-22] MEDS: inSUlin DETERMIR 1 UNIT/0.01 ML (LEVEMIR) CHARGE PER UNIT SQ SCH (20:16)
[2018-08-22] MEDS: fentaNYL INJECTION 100 MCG/2 ML AMP IV PRN (20:26)
[2018-08-22] MEDS ORDERED: NON-FORMULARY MEDICATION 1 EA EA (Insulin Detemir (Levemir Flextouch) 50 UNITS) SC SCH (21:00)
[2018-08-22] MEDS: VANCOMYCIN 2000 MG/NS 500 ML IVPB IV SCH ×2 (23:40)
[2018-08-23] VITALS (10 sets, daily range): BP systolic 100–119; BP diastolic 27–75
[2018-08-23] MEDS: NOREPINEPHRINE 4 MG in NS (IVPB) 250 ML IV SCH (02:38)
[2018-08-23] MEDS: CLINDAMYCIN 600 MG/50 ML IVPB 50 ML IV SCH ×3 (03:35→17:17)
[2018-08-23] MEDS: fentaNYL INJECTION 100 MCG/2 ML AMP IV PRN ×4 (03:39→23:47)
[2018-08-23 03:54] LABS: BASOPHILS % (AUTO) 0 % (0-10); EOSINOPHILS # (AUTO) 0.1 10^3/uL (0.0-0.3); EOSINOPHILS % (AUTO) 1 % (0-10); HEMATOCRIT 28 % (35-52); HEMOGLOBIN 9.6 G/DL (11.5-16.0); LYMPHOCYTES # (AUTO) 1.6 X 10^3 (1.0-4.0); LYMPHOCYTES % (AUTO) 12 % (12-44); MEAN CORPUSCULAR HGB CONC 34 G/DL (32-36); MEAN CORPUSCULAR VOLUME 90 FL (80-99); MEAN PLATELET VOLUME 10.3 FL (7.4-10.4); MONOCYTES # (AUTO) 0.8 X 10^3 (0.0-1.0); MONOCYTES % (AUTO) 6 % (0-12); NEUTROPHILS # (AUTO) 10.6 X 10^3 (1.8-7.8); NEUTROPHILS % (AUTO) 80 % (42-75); PLATELET COUNT 229 10^3/uL (130-400); RED BLOOD COUNT 3.15 10^6/uL (4.35-5.85); RED CELL DISTRIBUTION WIDTH 13.8 % (10.0-14.5); WHITE BLOOD COUNT 13.2 10^3/uL (4.3-11.0)
[2018-08-23 03:57] LABS: MEAN CORPUSCULAR HEMOGLOBIN 30 PG (25-34)
[2018-08-23 04:16] LABS: CALCIUM 8.3 MG/DL (8.5-10.1); CREATININE SERUM 1.15 MG/DL (0.60-1.30); PHOSPHORUS 2.1 MG/DL (2.3-4.7); POTASSIUM 3.5 MMOL/L (3.6-5.0)
[2018-08-23] MEDS: MAGNESIUM 1 GM/100 ML IVPB 100 ML IV SCH ×6 (04:29→10:07)
[2018-08-23] MEDS ORDERED: POTASSIUM PHOSPHATE INJ 30 MM in NS (IVPB) 250 ML IV ONE (05:00)
--- NOTE | 2018-08-23 05:05 | Pulmonary Progress Note ---
Sepsis Event Evaluation Height, Weight, BMI Height: 5'6.00" Weight: 354lbs. 1.0oz. 160.088160xc; 57.2 BMI Method:Stated Focused Exam Lactate Level 08/22/18 08:45: Lactic Acid Level 1.51 Time of Focused Exam: 11:05 Exam Exam Vital Signs Date Time Temp Pulse Resp B/P (MAP) Pulse Ox O2 Delivery O2 Flow Rate FiO2 08/23/18 04:00 98 Room Air 08/23/18 02:00 102 17 106/27 (53) 99 Room Air 08/23/18 01:00 100 25 119/50 (73) 100 Room Air 08/23/18 00:55 99 08/23/18 00:00 98 Room Air 08/23/18 00:00 98 24 119/74 (89) 100 Room Air 08/22/18 23:00 108 19 136/72 (93) 100 Room Air 08/22/18 22:00 106 21 156/97 (116) 96 Room Air 08/22/18 21:00 105 25 141/96 (111) 99 Room Air 08/22/18 20:00 111 20 131/74 (93) 98 Room Air 08/22/18 20:00 98 Room Air 08/22/18 19:00 103 08/22/18 19:00 105 20 105/52 (69) 96 Room Air 08/22/18 18:00 114 13 119/74 (89) 100 Room Air 08/22/18 17:00 105 22 112/76 (88) 100 Room Air 08/22/18 16:00 100 Room Air 08/22/18 16:00 109 11 123/85 (98) 100 Room Air 08/22/18 15:00 105 21 92/39 (56) 96 Room Air 08/22/18 14:00 103 23 103/68 (80) 99 Room Air 08/22/18 13:11 112 08/22/18 13:00 98.7 113 22 134/82 (99) 100 Room Air 08/22/18 13:00 Room Air 08/22/18 12:52 108 16 115/56 (75) 100 Room Air 08/22/18 08:32 99.9 121 17 101/78 (86) 99 Room Air I & O 08/23/18 07:00 Intake Total 8234.67 ml Output Total 3600 ml Balance 4634.67 ml Height & Weight Height: 5'6.00" Weight: 354lbs. 1.0oz. 160.589429ym; 57.2 BMI Method:Stated General Appearance: WD/WN, Chronically ill, Moderate Distress, Obese HEENT: PERRL/EOMI, Normal ENT Inspection, Pharynx Normal Neck: Full Range of Motion, Normal Inspection, Non Tender, Supple, Carotid Bruit Respiratory: Lungs Clear, Normal Breath Sounds, No Accessory Muscle Use, No Respiratory Distress Cardiovascular: No Murmur, Normal Peripheral Pulses, Tachycardia Capillary Refill: Less Than 3 Seconds Gastrointestinal: non tender, soft Extremity: Normal Capillary Refill, Normal Inspection, Normal Range of Motion, Non Tender, No Calf Tenderness, Pedal Edema Neurologic/Psychiatric: Alert, Oriented x3, No Motor/Sensory Deficits, Normal Mood/Affect Skin: Normal Color, Warm/Dry, Rash (right leg erythema and blistered and edematous) Lymphatic: No Adenopathy Results Lab Laboratory Tests 08/22/18 08:45 08/23/18 03:50 Assessment/Plan Assessment/Plan Severe sepsis with cellulitis r/o osteomyelitis -Coffey cultures pending -IVF -vancomycin, cefepime, clindamycin, vancomycin Acute renal failure -IVF and monitor Morbid obesity SHERON BARRY DO Aug 23, 2018 05:04
[2018-08-23] MEDS ORDERED: KCL 20 MEQ TAB (K-DUR) PO SCH (06:00)
[2018-08-23] MEDS ORDERED: KCL 20 MEQ TAB (K-DUR) PO ONE (06:00)
[2018-08-23] MEDS ORDERED: POTASSIUM CL 10MEQ/50ML IVPB 50 ML IV SCH (06:00)
[2018-08-23] MEDS ORDERED: MAGNESIUM 1 GM/100 ML IVPB 100 ML IV SCH (06:00)
[2018-08-23] MEDS ORDERED: INSULIN ASPART 35 UNIT SC SCH (06:00)
[2018-08-23] MEDS: NS IV 1000 ML 1,000 ML IV SCH ×5 (06:32→13:27)
[2018-08-23] MEDS: inSUlin ASPART (NovoLOG) 1 UNIT/0.01 ML (CHARGE PER UNIT) SC SCH ×7 (06:36→20:47)
[2018-08-23] MEDS: VASOPRESSIN INJECTION 20 UNIT in NS (IVPB) 100 ML IV SCH (06:37)
--- NOTE | 2018-08-23 07:31 | Diagnostic Imaging Report ---
CHEST 1 VIEW, AP/PA ONLY Indication: Dyspnea Comparison: 08/22/2018 at 9:06 AM Findings: No focal airspace disease in the visualized lungs. Please note that the posterior lower lobes are poorly evaluated by portable radiography. No pleural effusion or pneumothorax. Normal cardiomediastinal silhouette. Impression: No acute cardiopulmonary process by portable radiography. Dictated by: Dictated on workstation # [id number]
[2018-08-23] MEDS: CEFEPIME INJECTION 2,000 MG in NS (IVPB) 50 ML IV SCH ×2 (08:55→21:08)
[2018-08-23] MEDS: inSUlin DETERMIR 1 UNIT/0.01 ML (LEVEMIR) CHARGE PER UNIT SQ SCH ×2 (09:13→21:10)
[2018-08-23] MEDS ORDERED: TROUGH ORDER-PHARMACY XX NR (10:00)
--- NOTE | 2018-08-23 10:31 | Progress Note-Hospitalist ---
AZIZA JACKSON DO 08/23/18 1031: Subjective HPI/CC On Admission Date Seen by Provider: Aug 23, 2018 Time Seen by Provider: 09:30 CC: Right leg cellulitis with severe sepsis HPI: This is a 42yoWF clinic patient of [facility] w/h/o all toes amputated due to progressive DM complications who presented to the ER w/right leg cellulitis and severe sepsis. She reports that he right leg became painful and red yesterday and became feverish and nauseated so her brought her to the ER and was found to have a significantly elevated lactic acid and signs c/w severe sepsis so she is undergoing IVF aggressively along with abx coverage per her allergy profile and sepsis source. Dr Harrington and Dr Kam have been consulted and their expertise is appreciated. Subjective/Events-last exam Blister formation on the right leg will likely burst spontaneously Pain controlled when meds are taken IVF will be DC since she is eating and drinking well Overall has much improved since admit Review of Systems Musculoskeletal: leg pain Focused Exam Lactate Level 08/22/18 08:45: Lactic Acid Level 1.51 08/23/18 05:30: Lactic Acid Level 0.79 Time of Focused Exam: 11:05 Objective Exam Vital Signs Vital Signs Date Time Temp Pulse Resp B/P (MAP) Pulse Ox O2 Delivery O2 Flow Rate FiO2 08/23/18 20:02 97.0 91 20 114/52 (72) 94 Room Air Capillary Refill : Less Than 3 Seconds General Appearance: No Apparent Distress, WD/WN, Chronically ill, Obese Respiratory: Chest Non Tender, Lungs Clear, Normal Breath Sounds, No Accessory Muscle Use, No Respiratory Distress Cardiovascular: Regular Rate, Rhythm, No Edema, No Gallop, No JVD, No Murmur, Normal Peripheral Pulses Extremity: Inflammation, Swelling, Other (right leg blister large lateral lower ) Neurologic/Psychiatric: Alert, Oriented x3, No Motor/Sensory Deficits, Normal Mood/Affect Results/Procedures Lab Laboratory Tests 08/23/18 03:50 Patient resulted labs reviewed. Assessment/Plan Assessment and Plan Assess & Plan/Chief Complaint Assessment: Severe sepsis Right leg cellulitis with bullous formation DM OOC Obesity Plan: HLIVF Pain control Abx Dr Kam help is appreciated Diagnosis/Problems Diagnosis/Problems (1) Cellulitis of right lower extremity Status: Acute (2) Severe sepsis Status: Resolved (3) Diabetes mellitus Status: Chronic Qualifiers: Diabetes mellitus type: type 2 Diabetes mellitus snf insulin use: with middle or intermediate school principal use Diabetes mellitus complication status: with unspecified complications Qualified Codes: E11.8 - Type 2 diabetes mellitus with unspecified complications; Z79.4 - MCC (current) use of insulin (4) Obesity Status: Chronic Qualifiers: Obesity type: due to excess calories Obesity classification: adult class 3 (BMI >= 40) Serious obesity comorbidity presence: with serious comorbidity Body mass index: BMI 50.0-59.9 Qualified Codes: E66.01 - Morbid (severe) obesity due to excess calories; Z68.43 - Body mass index (BMI) 50-59.9, adult (5) Leukocytosis Status: Acute Qualifiers: Leukocytosis type: leukemoid reaction Qualified Codes: D72.823 - Leukemoid reaction (6) Hyponatremia Status: Acute (7) Acute renal failure Status: Acute Qualifiers: Acute renal failure type: unspecified Qualified Codes: N17.9 - Acute kidney failure, unspecified (8) Bullous eruption Status: Acute Clinical Quality Measures DVT/VTE Risk/Contraindication: Risk Factor Score Per Nursin RFS Level Per Nursing on Admit: 4+=Very High ARDEN BERUMEN MED STUDENT 08/23/18 1425: Subjective Subjective/Events-last exam Feeling a little better today Leg pain is 9/10 Pt. is experiencing diarrhea Little nauseated w/ no vomiting Bowels are moving well Did not sleep well IV came out overnight Objective Exam General Appearance: No Apparent Distress, WD/WN Respiratory: Chest Non Tender, Lungs Clear, Normal Breath Sounds, No Accessory Muscle Use, No Respiratory Distress Cardiovascular: Regular Rate, Rhythm, No Edema, No Gallop, No JVD, No Murmur, Normal Peripheral Pulses Extremity: Inflammation, Swelling Neurologic/Psychiatric: Alert, Oriented x3, No Motor/Sensory Deficits, Normal Mood/Affect Comments Pt has develop a large bullae on her anterior right lower leg Assessment/Plan Assessment and Plan Assess & Plan/Chief Complaint Assessment: 1) Cellulitis 2) Sepsis 3) Diabetes melitis Plan: 1) Admit to 4th floor 2) continue IV antibiotics 3) discontinue IVF AZIZA JACKSON DO Aug 23, 2018 10:31 ARDEN BERUMEN MED STUDENT Aug 23, 2018 14:25
[2018-08-23] MEDS: VANCOMYCIN 2000 MG/NS 500 ML IVPB IV SCH ×4 (12:12→23:20)
--- NOTE | 2018-08-23 14:39 | Progress Note (SOAP) ---
Subjective Date Seen by a Provider: Aug 23, 2018 Time Seen by a Provider: 13:50 Subjective/Events-last exam systemic symptoms have improved and she is able to maintain normotension. White cell count decreased to 13,000. Electrolytes being replaced. Increased blisters over the right anterior distal leg Review of Systems General: Chills HEENT: No Head Aches, No Eye Pain, No Ear Pain, No Dysphasia, No Sinus Congestion, No Post Nasal Drip, No Sore Throat Pulmonary: No Dyspnea, No Cough, No Pleuritic Chest Pain Cardiovascular: No: Chest Pain, Palpitations, Orthopnea, Paroxysmal Noc. Dyspnea, Edema, Lt Headedness Gastrointestinal: No: Nausea, Vomiting, Abdominal Pain, Diarrhea, Constipation , Melena, Hematochezia Genitourinary: No Dysuria, No Frequency, No Incontinence, No Hematuria, No Retention Musculoskeletal: leg pain, foot pain Neurological: No: Weakness, Numbness, Incoordination, Change in speech, Confusion, Seizures, Other Focused Exam Lactate Level 08/22/18 08:45: Lactic Acid Level 1.51 08/23/18 05:30: Lactic Acid Level 0.79 Time of Focused Exam: 11:05 Objective Exam Vital Signs Date Time Temp Pulse Resp B/P (MAP) Pulse Ox O2 Delivery O2 Flow Rate FiO2 08/23/18 13:01 99.3 96 18 115/62 (79) 98 Room Air 08/23/18 09:02 98.2 Room Air 08/23/18 08:00 104 32 97 Room Air 08/23/18 08:00 Room Air 08/23/18 07:00 101 08/23/18 07:00 101 13 97 Room Air 08/23/18 06:00 96 14 100/60 (73) 94 Room Air 08/23/18 05:00 96 23 102/68 (79) 93 Room Air 08/23/18 04:00 96 23 114/75 (88) 93 Room Air 08/23/18 04:00 98 Room Air 08/23/18 03:00 101 28 110/65 (80) 95 Room Air 08/23/18 02:00 102 17 106/27 (53) 99 Room Air 08/23/18 01:00 100 25 119/50 (73) 100 Room Air 08/23/18 00:55 99 08/23/18 00:00 98 Room Air 08/23/18 00:00 98 24 119/74 (89) 100 Room Air 08/22/18 23:00 108 19 136/72 (93) 100 Room Air 08/22/18 22:00 106 21 156/97 (116) 96 Room Air 08/22/18 21:00 105 25 141/96 (111) 99 Room Air 08/22/18 20:00 111 20 131/74 (93) 98 Room Air 08/22/18 20:00 98 Room Air 08/22/18 19:00 103 08/22/18 19:00 105 20 105/52 (69) 96 Room Air 08/22/18 18:00 114 13 119/74 (89) 100 Room Air 08/22/18 17:00 105 22 112/76 (88) 100 Room Air 08/22/18 16:00 100 Room Air 08/22/18 16:00 109 11 123/85 (98) 100 Room Air 08/22/18 15:00 105 21 92/39 (56) 96 Room Air I & O 08/23/18 07:00 Intake Total 9398.67 ml Output Total 3600 ml Balance 5798.67 ml Capillary Refill : Less Than 3 Seconds General Appearance: No Apparent Distress Neck: Normal Inspection Cardiovascular: Regular Rate, Rhythm Extremity: Other Neurologic/Psychiatric: Alert, Oriented x3 Skin: Other Other comments cellulitis involving the right into the leg contained with no progression. Hemostasis along the distal right anterior leg. Results Lab Laboratory Tests 08/22/18 17:18: Glucometer 269H 08/22/18 20:04: Glucometer 338H 08/23/18 03:50: White Blood Count 13.2H, Red Blood Count 3.15L, Hemoglobin 9.6L, Hematocrit 28L , Mean Corpuscular Volume 90, Mean Corpuscular Hemoglobin 30, Mean Corpuscular Hemoglobin Concent 34, Red Cell Distribution Width 13.8, Platelet Count 229, Mean Platelet Volume 10.3, Neutrophils (%) (Auto) 80H, Lymphocytes (%) (Auto) 12 , Monocytes (%) (Auto) 6, Eosinophils (%) (Auto) 1, Basophils (%) (Auto) 0, Neutrophils # (Auto) 10.6H, Lymphocytes # (Auto) 1.6, Monocytes # (Auto) 0.8, Eosinophils # (Auto) 0.1, Basophils # (Auto) 0.0, Sodium Level 135, Potassium Level 3.5L, Chloride Level 109H, Carbon Dioxide Level 15L, Anion Gap 11, Blood Urea Nitrogen 22H, Creatinine 1.15, Estimat Glomerular Filtration Rate 51, BUN/ Creatinine Ratio 19, Glucose Level 186H, Calcium Level 8.3L, Phosphorus Level 2.1L, Magnesium Level 1.0*L 08/23/18 05:30: Lactic Acid Level 0.79 08/23/18 10:01: Vancomycin Level Trough 19.1 08/23/18 10:55: Glucometer 256H Microbiology 08/22/18 Blood Culture - Preliminary, Resulted Probable Coag Negative Staph See Comments 08/22/18 Gram Stain - Final, Resulted 08/22/18 Wound Culture - Preliminary, Resulted Culture In Progress Assessment/Plan Assessment/Plan Assess & Plan/Chief Complaint lady with acute cellulitis of the right lower extremity. Type I diabetes. Previous amputations. Reasonable to continue antibiotics to target Streptococcus Staphylococcus and anaerobes. Sliding scale of insulin for optimizing hypoglycemia. Would follow along. lady with cellulitis of the right leg. Insulin-requiring diabetes. Heart anemia, being replaced. Hypomagnesemia, being addressed. We will continue antibiotics. Reasonable not to interfere with the blisters, allowing spontaneous solution. Final Diagnosis cellulitis of the right leg. Clinical Quality Measures DVT/VTE Risk/Contraindication: Risk Factor Score Per Nursin RFS Level Per Nursing on Admit: 4+=Very High BINDU QUILES MD Aug 23, 2018 14:39
[2018-08-23] MEDS: NEO/POLY/BAC (NEOSPORIN) OINT 15 GM TUBE TOP SCH ×2 (17:17→21:09)
[2018-08-24] VITALS (7 sets, daily range): BP systolic 114–135; BP diastolic 58–81
[2018-08-24] MEDS: CLINDAMYCIN 600 MG/50 ML IVPB 50 ML IV SCH ×3 (02:16→19:07)
[2018-08-24] MEDS ORDERED: POTASSIUM PHOSPHATE MM IV NR ×2 (05:00)
[2018-08-24] MEDS ORDERED: NS IV NR ×2 (05:00)
[2018-08-24] MEDS: fentaNYL INJECTION 100 MCG/2 ML AMP IV PRN (05:29)
[2018-08-24] MEDS: inSUlin ASPART (NovoLOG) 1 UNIT/0.01 ML (CHARGE PER UNIT) SC SCH ×7 (05:48→22:22)
--- NOTE | 2018-08-24 06:42 | Pulmonary Progress Note ---
Subjective Time Seen by a Provider: 06:42 Subjective/Events-last exam No complications noted. Sepsis Event Evaluation Height, Weight, BMI Height: 5'6.00" Weight: 362lbs. 5.0oz. [id number]; 57.2 BMI Method:Stated Focused Exam Lactate Level 08/22/18 08:45: Lactic Acid Level 1.51 08/23/18 05:30: Lactic Acid Level 0.79 Time of Focused Exam: 11:05 Exam Exam Vital Signs Date Time Temp Pulse Resp B/P (MAP) Pulse Ox O2 Delivery O2 Flow Rate FiO2 08/24/18 04:00 97.1 78 20 116/64 (81) 94 Room Air 08/24/18 00:01 97.6 88 20 114/59 (77) 96 Room Air 08/23/18 20:02 97.0 91 20 114/52 (72) 94 Room Air 08/23/18 20:00 Room Air 08/23/18 15:58 98.6 97 20 113/62 (79) 97 Room Air 08/23/18 13:01 99.3 96 18 115/62 (79) 98 Room Air 08/23/18 09:02 98.2 Room Air 08/23/18 08:00 104 32 97 Room Air 08/23/18 08:00 Room Air 08/23/18 07:00 101 08/23/18 07:00 101 13 97 Room Air I & O 08/24/18 07:00 Intake Total 6020 ml Output Total 900 ml Balance 5120 ml Height & Weight Height: 5'6.00" Weight: 362lbs. 5.0oz. [id number]; 57.2 BMI Method:Stated General Appearance: No Apparent Distress, WD/WN, Chronically ill, Obese HEENT: PERRL/EOMI, Normal ENT Inspection, Pharynx Normal Neck: Normal Inspection Respiratory: Chest Non Tender, Lungs Clear, Normal Breath Sounds, No Accessory Muscle Use, No Respiratory Distress Cardiovascular: Regular Rate, Rhythm, No Edema, No Gallop, No JVD, No Murmur, Normal Peripheral Pulses Capillary Refill: Less Than 3 Seconds Gastrointestinal: non tender, soft Extremity: Inflammation, Swelling, Other (right leg blister large lateral lower ) Neurologic/Psychiatric: Alert, Oriented x3, No Motor/Sensory Deficits, Normal Mood/Affect Skin: Other Lymphatic: No Adenopathy Results Lab Laboratory Tests 08/22/18 08:45 08/23/18 03:50 Assessment/Plan Assessment/Plan Severe sepsis with cellulitis r/o osteomyelitis -Coffey cultures pending -IVF -Dr. Kam following -Abx therapy Acute renal failure -IVF and monitor Morbid obesity with probable BEHZAD r/o OHS -will check ABG r/o OHS -Will have pt do out patient testing SHERON BARRY DO Aug 24, 2018 06:42
[2018-08-24] MEDS: NEO/POLY/BAC (NEOSPORIN) OINT 15 GM TUBE TOP SCH ×2 (08:25→21:05)
[2018-08-24] MEDS: inSUlin DETERMIR 1 UNIT/0.01 ML (LEVEMIR) CHARGE PER UNIT SQ SCH ×2 (08:25→22:30)
[2018-08-24 09:01] LABS: BUN/CREATININE RATIO 16; CALCIUM 8.8 MG/DL (8.5-10.1); CARBON DIOXIDE 19 MMOL/L (21-32); CHLORIDE 109 MMOL/L (98-107); CREATININE SERUM 0.89 MG/DL (0.60-1.30); GFR ESTIMATED > 60; GLUCOSE 132 MG/DL (70-105); MAGNESIUM 1.5 MG/DL (1.8-2.4); PHOSPHORUS 4.6 MG/DL (2.3-4.7); POTASSIUM 4.1 MMOL/L (3.6-5.0); SODIUM 138 MMOL/L (135-145)
[2018-08-24 09:27] LABS: BILIRUBIN,URINE NEGATIVE (NEGATIVE); CLARITY,URINE CLEAR; COLOR,URINE YELLOW; GLUCOSE, URINE (UA) NEGATIVE (NEGATIVE); KETONES,URINE NEGATIVE (NEGATIVE); LEUKOCYTE ESTERASE ,URINE 1+ (NEGATIVE); NITRITE,URINE NEGATIVE (NEGATIVE); PH,URINE 5 (5-9); PROTEIN,URINE 1+ (NEGATIVE); UROBILINOGEN,URINE NORMAL (NORMAL)
[2018-08-24 09:40] LABS: AMORPHOUS SEDIMENT,UR FEW AMOR URATES /LPF; BACTERIA,URINE FEW /HPF; URIC ACID CRYSTALS,URINE FEW /LPF; WBC,URINE 0-2 /HPF
[2018-08-24] MEDS: ENOXAPARIN 60 MG/0.6 ML (LOVENOX) SYR SC SCH ×2 (09:48→21:01)
[2018-08-24] MEDS: CEFEPIME INJECTION 2,000 MG in NS (IVPB) 50 ML IV SCH ×2 (09:48→21:44)
[2018-08-24 09:54] LABS: ABG BASE EXCESS -4.8 MMOL/L (-2.5-2.5); ABG OXYGEN SATURATION 96 % (94-100); ABG PCO2 32 MMHG (35-45); ABG PO2 70 MMHG (79-93); ABG TCO2 20.3 MMOL/L (21.0-31.0)
[2018-08-24 10:00] LABS: ALLENS TEST YES-POS; INSPIRED O2 ROOM AIR; PATIENT TEMP 97.7; VENTILATOR NO
--- NOTE | 2018-08-24 14:43 | Progress Note (SOAP) ---
Subjective Subjective/Events-last exam Pt reports feeling somewhat improved. LE still uncomfortable. Had some drainage from the bulla last night. Review of Systems Date Seen by Provider: Aug 24, 2018 Time Seen by Provider: 10:10 Focused Exam Lactate Level 08/22/18 08:45: Lactic Acid Level 1.51 08/23/18 05:30: Lactic Acid Level 0.79 Time of Focused Exam: 11:05 Objective Exam Last Set of Vital Signs Vital Signs Date Time Temp Pulse Resp B/P (MAP) Pulse Ox O2 Delivery O2 Flow Rate FiO2 08/24/18 12:00 97.6 84 20 125/73 (90) 100 Room Air Capillary Refill : Less Than 3 Seconds I&O Intake and Output 08/24/18 00:00 Intake Total 5754 ml Output Total 1600 ml Balance 4154 ml Intake Oral 3274 ml IV Total 2480 ml Output Urine Total 1600 ml # Voids 6 # Bowel Movements 1 General: Alert, Oriented X3, Cooperative Skin: Other (Erythema to the RLE; bulla with serous fluid) Psych/Mental Status: Mood NL Results/Procedures Lab Laboratory Tests 08/23/18 15:21: Glucometer 206H 08/23/18 20:19: Glucometer 134H 08/24/18 05:44: Glucometer 100 08/24/18 08:35: Sodium Level 138, Potassium Level 4.1, Chloride Level 109H, Carbon Dioxide Level 19L, Anion Gap 10, Blood Urea Nitrogen 14, Creatinine 0.89, Estimat Glomerular Filtration Rate > 60, BUN/Creatinine Ratio 16, Glucose Level 132H, Calcium Level 8.8, Phosphorus Level 4.6, Magnesium Level 1.5L 08/24/18 09:00: Urine Color YELLOW, Urine Clarity CLEAR, Urine pH 5, Urine Specific [place] 1.025H, Urine Protein 1+H, Urine Glucose (UA) NEGATIVE, Urine Ketones NEGATIVE, Urine Nitrite NEGATIVE, Urine Bilirubin NEGATIVE, Urine Urobilinogen NORMAL, Urine Leukocyte Esterase 1+H, Urine RBC (Auto) 2+H, Urine RBC 5-10H, Urine WBC 0 -2, Urine Squamous Epithelial Cells 5-10, Urine Crystals PRESENTH, Urine Uric Acid Crystals FEWH, Urine Amorphous Sediment FEW WES URATESH, Urine Bacteria FEWH, Urine Casts NONE, Urine Mucus SMALLH, Urine Culture Indicated YES 08/24/18 09:46: Blood Gas Puncture Site LT RAD, Blood Gas Patient Temperature 97.7, Arterial Blood pH 7.40, Arterial Blood Partial Pressure CO2 32L, Arterial Blood Partial Pressure O2 70L, Arterial Blood HCO3 19L, Arterial Blood Total CO2 20.3L, Arterial Blood Oxygen Saturation 96, Arterial Blood Base Excess -4.8L, Ras Test YES-POS, Blood Gas Ventilator Setting NO, Blood Gas Inspired Oxygen ROOM AIR 08/24/18 11:04: Glucometer 188H Microbiology 08/22/18 Blood Culture - Preliminary, Resulted Staph, Coag Neg (EXPLOITATION ANALYST) See Comments 08/22/18 Gram Stain - Final, Resulted 08/22/18 Wound Culture - Preliminary, Resulted See Comments Assessment/Plan Assessment/Plan Assessment & Plan Severe sepsis -HLIVF RESOLVED Right leg cellulitis with bullous formation - foot x-ray neg, LE venous doppler neg; arterial doppler wnl -Pain control -Abx: Vanc, Cefepime, Clinda -Dr Kam consulted, recommend allowing bulla to spontaneously resolve DM Type 2 uncontrolled - resumed home meds - Novolog 35U WM, Levemir 50U BID, Metformin 1000mg BID Morbid obesity with probable BEHZAD r/o OHS -will check ABG r/o OHS -Will have pt do out patient testing SHARMIN - initial Cr 1.77, down to 0.89 08/24/18 after IVF RESOLVED 08/24/18 - resumed home meds Clinical Quality Measures DVT/VTE Risk/Contraindication: Risk Factor Score Per Nursin RFS Level Per Nursing on Admit: 4+=Very High DALE LOPEZ DO Aug 24, 2018 14:43
--- NOTE | 2018-08-24 14:56 | Progress Note (SOAP) ---
Subjective Date Seen by a Provider: Aug 24, 2018 Time Seen by a Provider: 14:55 Subjective/Events-last exam iMPROVING. bLISTERS OPENED UP Review of Systems General: No Chills, No Night Sweats, No Fatigue, No Malaise HEENT: No Head Aches, No Eye Pain, No Ear Pain, No Dysphasia, No Sinus Congestion, No Post Nasal Drip, No Sore Throat Pulmonary: No Dyspnea, No Cough, No Pleuritic Chest Pain Cardiovascular: No: Chest Pain, Palpitations, Orthopnea, Paroxysmal Noc. Dyspnea, Edema, Lt Headedness Gastrointestinal: No: Nausea, Vomiting, Abdominal Pain, Diarrhea, Constipation , Melena, Hematochezia Genitourinary: No Dysuria, No Frequency, No Incontinence, No Hematuria, No Retention Musculoskeletal: foot pain Neurological: No: Weakness, Numbness, Incoordination, Change in speech, Confusion, Seizures, Other Focused Exam Lactate Level 08/22/18 08:45: Lactic Acid Level 1.51 08/23/18 05:30: Lactic Acid Level 0.79 Time of Focused Exam: 11:05 Objective Exam Vital Signs Date Time Temp Pulse Resp B/P (MAP) Pulse Ox O2 Delivery O2 Flow Rate FiO2 08/24/18 12:00 97.6 84 20 125/73 (90) 100 Room Air 08/24/18 08:42 97.5 78 20 118/73 (88) 94 Room Air 08/24/18 08:00 Room Air 08/24/18 04:00 97.1 78 20 116/64 (81) 94 Room Air 08/24/18 00:01 97.6 88 20 114/59 (77) 96 Room Air 08/23/18 20:02 97.0 91 20 114/52 (72) 94 Room Air 08/23/18 20:00 Room Air 08/23/18 15:58 98.6 97 20 113/62 (79) 97 Room Air I & O 08/24/18 07:00 Intake Total 6020 ml Output Total 900 ml Balance 5120 ml Capillary Refill : Less Than 3 Seconds General Appearance: Anxious Cardiovascular: Regular Rate, Rhythm Gastrointestinal: non tender, soft Extremity: Other Skin: Other Other comments Cellulitis of right leg, contained and improving Results Lab Laboratory Tests 08/23/18 15:21: Glucometer 206H 08/23/18 20:19: Glucometer 134H 08/24/18 05:44: Glucometer 100 08/24/18 08:35: Sodium Level 138, Potassium Level 4.1, Chloride Level 109H, Carbon Dioxide Level 19L, Anion Gap 10, Blood Urea Nitrogen 14, Creatinine 0.89, Estimat Glomerular Filtration Rate > 60, BUN/Creatinine Ratio 16, Glucose Level 132H, Calcium Level 8.8, Phosphorus Level 4.6, Magnesium Level 1.5L 08/24/18 09:00: Urine Color YELLOW, Urine Clarity CLEAR, Urine pH 5, Urine Specific [place] 1.025H, Urine Protein 1+H, Urine Glucose (UA) NEGATIVE, Urine Ketones NEGATIVE, Urine Nitrite NEGATIVE, Urine Bilirubin NEGATIVE, Urine Urobilinogen NORMAL, Urine Leukocyte Esterase 1+H, Urine RBC (Auto) 2+H, Urine RBC 5-10H, Urine WBC 0 -2, Urine Squamous Epithelial Cells 5-10, Urine Crystals PRESENTH, Urine Uric Acid Crystals FEWH, Urine Amorphous Sediment FEW WES URATESH, Urine Bacteria FEWH, Urine Casts NONE, Urine Mucus SMALLH, Urine Culture Indicated YES 08/24/18 09:46: Blood Gas Puncture Site LT RAD, Blood Gas Patient Temperature 97.7, Arterial Blood pH 7.40, Arterial Blood Partial Pressure CO2 32L, Arterial Blood Partial Pressure O2 70L, Arterial Blood HCO3 19L, Arterial Blood Total CO2 20.3L, Arterial Blood Oxygen Saturation 96, Arterial Blood Base Excess -4.8L, Ras Test YES-POS, Blood Gas Ventilator Setting NO, Blood Gas Inspired Oxygen ROOM AIR 08/24/18 11:04: Glucometer 188H Microbiology 08/22/18 Blood Culture - Preliminary, Resulted Staph, Coag Neg (JACQUARD LOOM WEAVER) See Comments 08/22/18 Gram Stain - Final, Resulted 08/22/18 Wound Culture - Preliminary, Resulted See Comments Assessment/Plan Assessment/Plan Assess & Plan/Chief Complaint lady with acute cellulitis of the right lower extremity. Type I diabetes. Previous amputations. Reasonable to continue antibiotics to target Streptococcus Staphylococcus and anaerobes. Sliding scale of insulin for optimizing hypoglycemia. Would follow along. lady with cellulitis of the right leg. Insulin-requiring diabetes. Heart anemia, being replaced. Hypomagnesemia, being addressed. We will continue antibiotics. Reasonable not to interfere with the blisters, allowing spontaneous solution. Cellulitis of right leg, improving Final Diagnosis Cellulitis of right leg Clinical Quality Measures DVT/VTE Risk/Contraindication: Risk Factor Score Per Nursin RFS Level Per Nursing on Admit: 4+=Very High BINDU QUILES MD Aug 24, 2018 14:56
[2018-08-24] MEDS ORDERED: CROMOLYN SODIUM OU PRN (15:00)
[2018-08-24] MEDS ORDERED: RT-ALBUTEROL SULF 2.5 MG/3 ML PRE-MIX VIAL IH PRN (15:00)
[2018-08-24] MEDS: VANCOMYCIN 2000 MG/NS 500 ML IVPB IV SCH ×2 (15:00)
[2018-08-24] MEDS ORDERED: NON-FORMULARY MEDICATION 1 EA EA (Metformin HCl 1,000 MG) PO SCH (17:00)
[2018-08-24] MEDS: MAGNESIUM 1 GM/100 ML IVPB 100 ML IV SCH ×3 (17:46→20:24)
[2018-08-24] MEDS: HYDROcodone/APAP 5 MG/325 MG (LORTAB) TAB PO PRN ×2 (17:50→22:29)
[2018-08-24] MEDS: metFORMIN 500 MG (GLUCOPHAGE) TAB PO SCH (17:54)
[2018-08-24] MEDS ORDERED: MONTELUKAST 10 MG (SINGULAIR) TAB PO SCH (21:00)
[2018-08-24] MEDS ORDERED: ATORVASTATIN 80 MG (LIPITOR) TABLET PO SCH (21:00)
[2018-08-24] MEDS ORDERED: NON-FORMULARY MEDICATION 1 EA EA (Gabapentin 800 MG) PO SCH (21:00)
[2018-08-24] MEDS ORDERED: BUDESONIDE INH SCH (21:00)
[2018-08-24] MEDS: GABAPENTIN 400 MG (NEURONTIN) CAP PO SCH (21:01)
[2018-08-24] MEDS: meTOprolol TARTRATE 50 MG (LOPRESSOR) TAB PO SCH (21:02)
[2018-08-24] MEDS: RT-BUDESONIDE NEBS 0.5 MG/2ML (PULMICORT) AMP INH SCH (23:01)
[2018-08-25] VITALS: BP 119/83
[2018-08-25] MEDS: CLINDAMYCIN 600 MG/50 ML IVPB 50 ML IV SCH ×2 (02:20→10:19)
[2018-08-25] MEDS: VANCOMYCIN 2000 MG/NS 500 ML IVPB IV SCH ×2 (02:49)
[2018-08-25 04:11] VITALS: BP 128/77
[2018-08-25] MEDS: HYDROcodone/APAP 5 MG/325 MG (LORTAB) TAB PO PRN ×2 (04:29→12:14)
[2018-08-25] MEDS: inSUlin ASPART (NovoLOG) 1 UNIT/0.01 ML (CHARGE PER UNIT) SC SCH ×6 (06:00→16:07)
[2018-08-25] MEDS: metFORMIN 500 MG (GLUCOPHAGE) TAB PO SCH (06:49)
[2018-08-25 07:06] LABS: BASOPHILS % (AUTO) 0 % (0-10); EOSINOPHILS # (AUTO) 0.3 10^3/uL (0.0-0.3); EOSINOPHILS % (AUTO) 4 % (0-10); HEMATOCRIT 29 % (35-52); HEMOGLOBIN 9.7 G/DL (11.5-16.0); LYMPHOCYTES # (AUTO) 1.8 X 10^3 (1.0-4.0); LYMPHOCYTES % (AUTO) 21 % (12-44); MEAN CORPUSCULAR HEMOGLOBIN 30 PG (25-34); MEAN CORPUSCULAR HGB CONC 33 G/DL (32-36); MEAN CORPUSCULAR VOLUME 91 FL (80-99); MEAN PLATELET VOLUME 9.9 FL (7.4-10.4); MONOCYTES # (AUTO) 0.4 X 10^3 (0.0-1.0); MONOCYTES % (AUTO) 5 % (0-12); NEUTROPHILS # (AUTO) 5.9 X 10^3 (1.8-7.8); NEUTROPHILS % (AUTO) 70 % (42-75); PLATELET COUNT 311 10^3/uL (130-400); RED CELL DISTRIBUTION WIDTH 14.3 % (10.0-14.5); WHITE BLOOD COUNT 8.4 10^3/uL (4.3-11.0)
[2018-08-25 07:51] LABS: BUN/CREATININE RATIO 16; CALCIUM 8.9 MG/DL (8.5-10.1); CARBON DIOXIDE 21 MMOL/L (21-32); CHLORIDE 108 MMOL/L (98-107); CREATININE SERUM 0.94 MG/DL (0.60-1.30); GFR ESTIMATED > 60; GLUCOSE 130 MG/DL (70-105); POTASSIUM 4.1 MMOL/L (3.6-5.0); SODIUM 138 MMOL/L (135-145)
--- NOTE | 2018-08-25 08:15 | Progress Note (SOAP) ---
Subjective Date Seen by a Provider: Aug 25, 2018 Time Seen by a Provider: 07:45 Subjective/Events-last exam afebrile. Ambulating to her baseline status. Serous drainage from the blisters continues. White cell count back to normal. Review of Systems General: No Chills, No Night Sweats, No Fatigue, No Malaise HEENT: No Head Aches, No Eye Pain, No Ear Pain, No Dysphasia, No Sinus Congestion, No Post Nasal Drip, No Sore Throat Pulmonary: No Dyspnea, No Cough, No Pleuritic Chest Pain Cardiovascular: No: Chest Pain, Palpitations, Orthopnea, Paroxysmal Noc. Dyspnea, Edema, Lt Headedness Gastrointestinal: No: Nausea, Vomiting, Abdominal Pain, Diarrhea, Constipation , Melena, Hematochezia Genitourinary: No Dysuria, No Frequency, No Incontinence, No Hematuria, No Retention Musculoskeletal: leg pain Neurological: Other Focused Exam Lactate Level 08/22/18 08:45: Lactic Acid Level 1.51 08/23/18 05:30: Lactic Acid Level 0.79 Time of Focused Exam: 11:05 Objective Exam Vital Signs Date Time Temp Pulse Resp B/P (MAP) Pulse Ox O2 Delivery O2 Flow Rate FiO2 08/25/18 04:46 97.2 08/25/18 04:11 96.5 73 18 128/77 (94) 98 Room Air 08/25/18 00:00 97.3 78 18 119/83 (95) 94 Room Air 08/24/18 21:09 74 122/68 (86) 08/24/18 20:00 98.2 87 18 116/58 (77) 96 Room Air 08/24/18 20:00 Room Air 08/24/18 16:25 96.2 82 18 135/81 (99) 98 Room Air 08/24/18 12:00 97.6 84 20 125/73 (90) 100 Room Air 08/24/18 08:42 97.5 78 20 118/73 (88) 94 Room Air I & O 08/25/18 06:59 Intake Total 2365 ml Output Total 1200 ml Balance 1165 ml Capillary Refill : Less Than 3 Seconds General Appearance: Anxious Neck: Normal Inspection Respiratory: Lungs Clear Cardiovascular: Regular Rate, Rhythm Extremity: Other Neurologic/Psychiatric: Alert, Oriented x3 Other comments blistering along the right anterior distal leg. Cellulitis contained. Results Lab Laboratory Tests 08/24/18 08:35: Sodium Level 138, Potassium Level 4.1, Chloride Level 109H, Carbon Dioxide Level 19L, Anion Gap 10, Blood Urea Nitrogen 14, Creatinine 0.89, Estimat Glomerular Filtration Rate > 60, BUN/Creatinine Ratio 16, Glucose Level 132H, Calcium Level 8.8, Phosphorus Level 4.6, Magnesium Level 1.5L 08/24/18 09:00: Urine Color YELLOW, Urine Clarity CLEAR, Urine pH 5, Urine Specific [place] 1.025H, Urine Protein 1+H, Urine Glucose (UA) NEGATIVE, Urine Ketones NEGATIVE, Urine Nitrite NEGATIVE, Urine Bilirubin NEGATIVE, Urine Urobilinogen NORMAL, Urine Leukocyte Esterase 1+H, Urine RBC (Auto) 2+H, Urine RBC 5-10H, Urine WBC 0 -2, Urine Squamous Epithelial Cells 5-10, Urine Crystals PRESENTH, Urine Uric Acid Crystals FEWH, Urine Amorphous Sediment FEW WES URATESH, Urine Bacteria FEWH, Urine Casts NONE, Urine Mucus SMALLH, Urine Culture Indicated YES 08/24/18 09:46: Blood Gas Puncture Site LT RAD, Blood Gas Patient Temperature 97.7, Arterial Blood pH 7.40, Arterial Blood Partial Pressure CO2 32L, Arterial Blood Partial Pressure O2 70L, Arterial Blood HCO3 19L, Arterial Blood Total CO2 20.3L, Arterial Blood Oxygen Saturation 96, Arterial Blood Base Excess -4.8L, Ras Test YES-POS, Blood Gas Ventilator Setting NO, Blood Gas Inspired Oxygen ROOM AIR 08/24/18 11:04: Glucometer 188H 08/24/18 16:43: Glucometer 120H 08/24/18 22:20: Glucometer 118H 08/25/18 05:21: Glucometer 137H 08/25/18 06:55: White Blood Count 8.4, Red Blood Count 3.20L, Hemoglobin 9.7L, Hematocrit 29L, Mean Corpuscular Volume 91, Mean Corpuscular Hemoglobin 30, Mean Corpuscular Hemoglobin Concent 33, Red Cell Distribution Width 14.3, Platelet Count 311, Mean Platelet Volume 9.9, Neutrophils (%) (Auto) 70, Lymphocytes (%) (Auto) 21, Monocytes (%) (Auto) 5, Eosinophils (%) (Auto) 4, Basophils (%) (Auto) 0, Neutrophils # (Auto) 5.9, Lymphocytes # (Auto) 1.8, Monocytes # (Auto) 0.4, Eosinophils # (Auto) 0.3, Basophils # (Auto) 0.0, Sodium Level 138, Potassium Level 4.1, Chloride Level 108H, Carbon Dioxide Level 21, Anion Gap 9, Blood Urea Nitrogen 15, Creatinine 0.94, Estimat Glomerular Filtration Rate > 60, BUN/ Creatinine Ratio 16, Glucose Level 130H, Calcium Level 8.9 Microbiology 08/22/18 Blood Culture - Preliminary, Resulted Staph, Coag Neg (HIDE SPREADER) See Comments 08/22/18 Gram Stain - Final, Resulted 08/22/18 Wound Culture - Preliminary, Resulted See Comments Assessment/Plan Assessment/Plan Assess & Plan/Chief Complaint lady with acute cellulitis of the right lower extremity. Type I diabetes. Previous amputations. Reasonable to continue antibiotics to target Streptococcus Staphylococcus and anaerobes. Sliding scale of insulin for optimizing hypoglycemia. Would follow along. lady with cellulitis of the right leg. Insulin-requiring diabetes. Heart anemia, being replaced. Hypomagnesemia, being addressed. We will continue antibiotics. Reasonable not to interfere with the blisters, allowing spontaneous solution. Cellulitis of right leg, improving. cellulitis of the right leg with pre-existing chronic lymphedema. Suspect that is an element of lymphangitis as well. Would benefit from compression dressings since arterial infusion is reasonable. Could be discharged with arrangements for outpatient IV antibiotics for a week. Final Diagnosis cellulitis of the right leg. Insulin-requiring diabetes Clinical Quality Measures DVT/VTE Risk/Contraindication: Risk Factor Score Per Nursin RFS Level Per Nursing on Admit: 4+=Very High BINDU QUILES MD Aug 25, 2018 08:15
[2018-08-25] MEDS: CEFEPIME INJECTION 2,000 MG in NS (IVPB) 50 ML IV SCH (08:18)
[2018-08-25] MEDS: meTOprolol TARTRATE 50 MG (LOPRESSOR) TAB PO SCH (08:19)
[2018-08-25] MEDS: GABAPENTIN 400 MG (NEURONTIN) CAP PO SCH ×2 (08:19→15:02)
[2018-08-25] MEDS: ENOXAPARIN 60 MG/0.6 ML (LOVENOX) SYR SC SCH (08:20)
[2018-08-25] MEDS: inSUlin DETERMIR 1 UNIT/0.01 ML (LEVEMIR) CHARGE PER UNIT SQ SCH (08:20)
[2018-08-25 08:22] VITALS: BP 136/88
[2018-08-25] MEDS: NEO/POLY/BAC (NEOSPORIN) OINT 15 GM TUBE TOP SCH (08:25)
[2018-08-25] MEDS ORDERED: NON-FORMULARY MEDICATION 1 EA EA (Fenofibrate 160 MG) PO SCH (09:00)
[2018-08-25] MEDS ORDERED: SERTRALINE 100 MG (ZOLOFT) TAB PO SCH (09:00)
[2018-08-25] MEDS ORDERED: HYDROCHLOROTHIAZIDE 25 MG (HCTZ) TAB PO SCH (09:00)
[2018-08-25] MEDS ORDERED: lisINopril 40 MG (PRINIVIL) TABLET PO SCH (09:00)
[2018-08-25] MEDS ORDERED: FENOFIBRATE 134 MG (LOFIBRA) CAPSULE PO SCH (09:00)
[2018-08-25] MEDS ORDERED: NON-FORMULARY MEDICATION 1 EA EA (Cetirizine HCl 10 MG) PO SCH (09:00)
[2018-08-25] MEDS ORDERED: LORATADINE (CLARITIN) 10 MG TAB PO SCH (09:00)
[2018-08-25] MEDS ORDERED: NON-FORMULARY MEDICATION 1 EA EA (Hydrochlorothiazide 25 MG) PO SCH (09:00)
[2018-08-25] MEDS: RT-BUDESONIDE NEBS 0.5 MG/2ML (PULMICORT) AMP INH SCH (10:13)
[2018-08-25] MEDS ORDERED: CLIN300C11 PO (10:36)
[2018-08-25] MEDS ORDERED: CEFT2VIA12 IV (10:36)
--- NOTE | 2018-08-25 10:47 | D/C HH Face to Face Order ---
D/C Face to Face Orders Instructions for Patient Via [facility], Patient Instructions/FollowUp: Follow-up with Dr. Hoskins 08/31/18 at 1:20pm Physician to follow Patient: Dr. Hoskins Discharge Diet for Home: ADA Diet Patient Data-Allergies,Ht & Wt Patient Allergies: Coded Allergies: Penicillins (Unverified Allergy, Severe, ANAPHYLAXIS, 06/08/13) Height (Feet): 5 Height (Inches): 6.00 Weight (Pounds): 362 Weight (Ounces): 5.0 Home Health Need/Face to Face Date of Face to Face: Aug 25, 2018 Clinical Findings: Wound infection, Non-healing wound I have seen Pt [id number]: Yes Discharged To: Home Diagnosis/Conditions: see diagnosis below Problems/Diagnosis/Condition: (1) Cellulitis of right lower extremity (2) Diabetic ulcer of right foot (3) Diabetes mellitus (4) Obesity (5) Bullous eruption Patient is Homebound due to: Pain w/ambulation Homebound Status Due to the above stated illness, injury or surgical procedure (medical condition or diagnosis) and associated clinical findings, the patient is homebound because of his/her inability to leave home except with aid of a supportive device and/or person AND leaving the home requires a considerable and taxing effort or is medically contraindicated. Pt req the following assistanc: [facility] Nursing Orders Home Health Services Order: Nursing Services, Wound Care-Eval/Treat Wound care - per Dr. Kam "Cellulitis of the right leg with pre-existing chronic lymphedema. Suspect that is an element of lymphangitis as well. Would benefit from compression dressings since arterial infusion is reasonable." Home Health Infusion Therapy Line Start Date: Aug 24, 2018 Line Start Time: 1445 Line Type: Midline Line Location: Right Site Location: Arm-Upper Name of Medication and Dosage: Ceftriaxone 2g IV Frequency and Duration: q24h x7 days Certify Stmt I certify that this patient is under my care and that I, a nurse practitioner or a physician; a financial sales assistant working with me, had a face to face encounter that - meets the physician face to face encounter requirements with this patient as dated. DALE LOPEZ DO Aug 25, 2018 10:44
--- NOTE | 2018-08-25 10:48 | Discharge Instructions ---
Discharge [facility] Discharge Medications New, Converted or Re-Newed RX: RX on Chart New Medications: Ceftriaxone Sodium (Ceftriaxone) 2 Gm/Vial Soln 2 GM IV Q24H for 7 Days, #7 EA 0 Refills Clindamycin HCl (Clindamycin HCl) 300 Mg Capsule 300 MG PO TID for 7 Days, #21 CAP 0 Refills Continued Medications: Albuterol Sulfate (Proair Hfa) 1 Puff Puff 2 PUFF IH Q4H PRN for SHORTNESS OF BREATH, INHALER 1 PUFF = 90 MCG Aspirin/Acetaminophen/Caffeine (Excedrin Migraine Caplet) 1 Each Tablet 1 TAB PO DAILY PRN for MIGRAINE, TAB Atorvastatin Calcium (Atorvastatin Calcium) 80 Mg Tablet 80 MG PO HS, TAB Budesonide (Pulmicort Flexhaler) 180 Mcg Aer.pow.ba 1 PUFF INH BID, INHALER Cetirizine HCl (Cetirizine HCl) 10 Mg Tablet 10 MG PO DAILY, TAB Cromolyn Sodium (Cromolyn Sodium) 10 Ml Drops 2 DROPS OU DAILY PRN for ALLERGIES, DROPS Fenofibrate (Fenofibrate) 160 Mg Tablet 160 MG PO DAILY, TAB Gabapentin (Gabapentin) 800 Mg Tablet 800 MG PO TID, TAB Hydrochlorothiazide (Hydrochlorothiazide) 25 Mg Tablet 25 MG PO DAILY, TAB Hydrocodone Bit/Acetaminophen (Hydrocodone/Acetaminophen 5/325mg Tablet) 1 Each Tablet 1 TAB PO Q4H PRN for PAIN-MODERATE, TAB Ibuprofen (Ibuprofen) 200 Mg Tablet 800 MG PO TID PRN for PAIN-MILD, TAB Insulin Aspart (Novolog Flexpen) 300 Units/3 Ml Solution 35 UNITS SC TIDAC, EA Insulin Detemir (Levemir Flextouch) 100 Unit/1 Ml Insuln.pen 50 UNITS SC BID, EA Lisinopril (Lisinopril) 40 Mg Tablet 40 MG PO DAILY, TAB Metformin HCl (Metformin HCl) 1,000 Mg Tablet 1000 MG PO BID WITH MEALS, TAB Metoprolol Tartrate (Metoprolol Tartrate) 50 Mg Tablet 50 MG PO BID, TAB Montelukast Sodium (Montelukast Sodium) 10 Mg Tablet 10 MG PO HS, TAB Multivitamin (Daily Vitamin Formula) 1 Each Tablet 1 TAB PO DAILY, TAB Nystatin (Nystatin) 15 Gm Cream..g. TP BID PRN for RASH, TUBE Ondansetron HCl (Ondansetron HCl) 8 Mg Tablet 8 MG PO TID PRN for NAUSEA/VOMITING-1ST LINE, TAB Sertraline HCl (Sertraline HCl) 100 Mg Tablet 100 MG PO DAILY, TAB Patient Instructions Goal/Follow Up Appt: Dr. Hoskins 08/31/18 1:20pm Home Health for wound care and home infusion of ceftriaxone Activity & Diet Discharge Diet: ADA Diet DALE LOPEZ DO Aug 25, 2018 10:48
--- NOTE | 2018-08-25 10:53 | Discharge Summary ---
Diagnosis/Chief Complaint Date of Admission Aug 22, 2018 at 11:30 Date of Discharge Aug 25, 2018 Admission Diagnosis Admission Diagnosis 1) Cellulitis 2) Sepsis 3) Diabetes Mellitus Discharge Diagnosis Severe sepsis -HLIVF RESOLVED Right leg cellulitis with bullous formation - foot x-ray neg, LE venous doppler neg; arterial doppler wnl -Pain control -Abx: Vanc, Cefepime, Clinda -Dr Kam consulted, recommend allowing bulla to spontaneously resolve 08/25 - DC home with IV ceftrixone home infusion x7 d; po clindamycin; Home Health for wound care DM Type 2 uncontrolled - resumed home meds - Novolog 35U WM, Levemir 50U BID, Metformin 1000mg BID Morbid obesity with probable BEHZAD r/o OHS -will check ABG r/o [facility] -Will have pt do out patient testing SHARMIN - initial Cr 1.77, down to 0.89 08/24/18 after IVF RESOLVED 08/24/18 - resumed home meds Discharge Summary-Simple/Stand Consultations Discharge Physical Examination Allergies: Coded Allergies: Penicillins (Unverified Allergy, Severe, ANAPHYLAXIS, 06/08/13) Vitals & I&Os Vital Sign - Last 12Hours Date Time Temp Pulse Resp B/P (MAP) Pulse Ox O2 Delivery O2 Flow Rate FiO2 08/25/18 10:22 98 Room Air 08/25/18 08:22 96.9 73 20 136/88 (104) Intake and Output 08/25/18 00:00 Intake Total 1620 ml Output Total 1100 ml Balance 520 ml General Appearance: Alert, Oriented X3, Cooperative Skin: Other (erythema RLE improving w bulla draining serous fluid; lymphedema) Psych/Mental Status: Mood NL Hospital Course See final discharge diagnosis. Discharge Instructions to patient/family D/C Face to Face Orders Instructions for Patient Via [employer], Patient Instructions/FollowUp: Follow-up with Dr. Hoskins 08/31/18 at 1:20pm Physician to follow Patient: Dr. Hoskins Discharge Diet for Home: ADA Diet Patient Data-Allergies,Ht & Wt Patient Allergies: Coded Allergies: Penicillins (Unverified Allergy, Severe, ANAPHYLAXIS, 06/08/13) Height (Feet): 5 Height (Inches): 6.00 Weight (Pounds): 362 Weight (Ounces): 5.0 Home Health Need/Face to Face Date of Face to Face: Aug 25, 2018 Clinical Findings: Wound infection, Non-healing wound I have seen Pt [id number]: Yes Discharged To: Home Diagnosis/Conditions: see diagnosis below Problems/Diagnosis/Condition: (1) Cellulitis of right lower extremity (2) Diabetic ulcer of right foot (3) Diabetes mellitus (4) Obesity (5) Bullous eruption Patient is Homebound due to: Pain w/ambulation Homebound Status Due to the above stated illness, injury or surgical procedure (medical condition or diagnosis) and associated clinical findings, the patient is homebound because of his/her inability to leave home except with aid of a supportive device and/or person AND leaving the home requires a considerable and taxing effort or is medically contraindicated. Pt req the following assistanc: [facility] Nursing Orders Home Health Services Order: Nursing Services, Wound Care-Eval/Treat Wound care - per Dr. Kam "Cellulitis of the right leg with pre-existing chronic lymphedema. Suspect that is an element of lymphangitis as well. Would benefit from compression dressings since arterial infusion is reasonable." Home Health Infusion Therapy Line Start Date: Aug 24, 2018 Line Start Time: 1445 Line Type: Midline Line Location: Right Site Location: Arm-Upper Name of Medication and Dosage: Ceftriaxone 2g IV Frequency and Duration: q24h x7 days Certify Stmt I certify that this patient is under my care and that I, a nurse practitioner or a physician; a medical support assistant working with me, had a face to face encounter that - meets the physician face to face encounter requirements with this patient as dated. Discharge Medications Reviewed and agree with Discharge Medication list on patient's Discharge Instruction sheet Discharge Medications New, Converted or Re-Newed RX: RX on Chart New Medications: Ceftriaxone Sodium (Ceftriaxone) 2 Gm/Vial Soln 2 GM IV Q24H for 7 Days, #7 EA 0 Refills Clindamycin HCl (Clindamycin HCl) 300 Mg Capsule 300 MG PO TID for 7 Days, #21 CAP 0 Refills Continued Medications: Albuterol Sulfate (Proair Hfa) 1 Puff Puff 2 PUFF IH Q4H PRN for SHORTNESS OF BREATH, INHALER 1 PUFF = 90 MCG Aspirin/Acetaminophen/Caffeine (Excedrin Migraine Caplet) 1 Each Tablet 1 TAB PO DAILY PRN for MIGRAINE, TAB Atorvastatin Calcium (Atorvastatin Calcium) 80 Mg Tablet 80 MG PO HS, TAB Budesonide (Pulmicort Flexhaler) 180 Mcg Aer.pow.ba 1 PUFF INH BID, INHALER Cetirizine HCl (Cetirizine HCl) 10 Mg Tablet 10 MG PO DAILY, TAB Cromolyn Sodium (Cromolyn Sodium) 10 Ml Drops 2 DROPS OU DAILY PRN for ALLERGIES, DROPS Fenofibrate (Fenofibrate) 160 Mg Tablet 160 MG PO DAILY, TAB Gabapentin (Gabapentin) 800 Mg Tablet 800 MG PO TID, TAB Hydrochlorothiazide (Hydrochlorothiazide) 25 Mg Tablet 25 MG PO DAILY, TAB Hydrocodone Bit/Acetaminophen (Hydrocodone/Acetaminophen 5/325mg Tablet) 1 Each Tablet 1 TAB PO Q4H PRN for PAIN-MODERATE, TAB Ibuprofen (Ibuprofen) 200 Mg Tablet 800 MG PO TID PRN for PAIN-MILD, TAB Insulin Aspart (Novolog Flexpen) 300 Units/3 Ml Solution 35 UNITS SC TIDAC, EA Insulin Detemir (Levemir Flextouch) 100 Unit/1 Ml Insuln.pen 50 UNITS SC BID, EA Lisinopril (Lisinopril) 40 Mg Tablet 40 MG PO DAILY, TAB Metformin HCl (Metformin HCl) 1,000 Mg Tablet 1000 MG PO BID WITH MEALS, TAB Metoprolol Tartrate (Metoprolol Tartrate) 50 Mg Tablet 50 MG PO BID, TAB Montelukast Sodium (Montelukast Sodium) 10 Mg Tablet 10 MG PO HS, TAB Multivitamin (Daily Vitamin Formula) 1 Each Tablet 1 TAB PO DAILY, TAB Nystatin (Nystatin) 15 Gm Cream..g. TP BID PRN for RASH, TUBE Ondansetron HCl (Ondansetron HCl) 8 Mg Tablet 8 MG PO TID PRN for NAUSEA/VOMITING-1ST LINE, TAB Sertraline HCl (Sertraline HCl) 100 Mg Tablet 100 MG PO DAILY, TAB Clinical Quality Measures DVT/VTE Risk/Contraindication: Risk Factor Score Per Nursin RFS Level Per Nursing on Admit: 4+=Very High Copy Copies To 1: STEPHANIE HOSKINS MD, LINDA K DO Aug 25, 2018 10:53
[2018-08-25] MEDS ORDERED: cefTRIAXone FOR IV USE 2,000 MG in NS (IVPB) 50 ML IV SCH (11:00)
[2018-08-25] MEDS ORDERED: TROUGH ORDER-PHARMACY XX ONE (14:00)
[2018-08-25] MEDS ORDERED: VANCOMYCIN 2000 MG/NS 500 ML IVPB IV SCH ×2 (15:00)
[2018-08-25 16:00] VITALS: BP 107/66
== END 2018-08-25 16:45 | disposition home health service (06) | DRG 872 ==
LOC: EDUNIT# 08:28 → ER 08:28 → ICU 11:30 → 4TH 08-23 09:45
PROVIDERS: ADMIT Internal Medicine; ATTEND Internal Medicine
DX: A41.9 Sepsis, unspecified organism (principal); R65.20 Severe sepsis without septic shock; L03.115 Cellulitis of right lower limb; N17.9 Acute kidney failure, unspecified; E87.2 Acidosis; E10.621 Type 1 diabetes mellitus with foot ulcer; L97.419 Non-pressure chronic ulcer of right heel and midfoot with unspecified severity; Z68.43 Body mass index [BMI] 50.0-59.9, adult; E87.1 Hypo-osmolality and hyponatremia; E10.40 Type 1 diabetes mellitus with diabetic neuropathy, unspecified; E66.01 Morbid (severe) obesity due to excess calories; F41.9 Anxiety disorder, unspecified; E10.65 Type 1 diabetes mellitus with hyperglycemia; E83.42 Hypomagnesemia; G47.33 Obstructive sleep apnea (adult) (pediatric); J45.909 Unspecified asthma, uncomplicated; I10 Essential (primary) hypertension; E78.00 Pure hypercholesterolemia, unspecified; M19.041 Primary osteoarthritis, right hand; M19.042 Primary osteoarthritis, left hand; G43.909 Migraine, unspecified, not intractable, without status migrainosus; R25.2 Cramp and spasm; M54.9 Dorsalgia, unspecified; Z79.4 Long term (current) use of insulin; Z89.431 Acquired absence of right foot; Z89.421 Acquired absence of other right toe(s); Z89.422 Acquired absence of other left toe(s)
CPT/HCPCS: 36415; 36600; 71045; 73590; 73630; 76937; 80048; 80053; 80202; 81000; 82805; 82962; 83605; 83735; 84100; 85007; 85025; 85027; 85610; 85730; 87040; 87070; 87077; 87088; 87186; 87205; 93926; 94640; 96361; 96365; 96367; 96375

== ENCOUNTER 2018-08-30 10:09 | Emergency (ER) | payer MEDICAID ==
[~2018-08-30] VITALS: Ht 160 cm; Wt 136.1 kg
[~2018-08-30 10:09] MED LIST changes: +ASPI-789 PO; +ATOR80TA76 PO; +CEFT2VIA12 IV; +CETI10TA17 PO; +GABA800T2 PO; +IBUP-2055 PO; +MULT-351 PO; +NYST15CR TP; +ONDA8TAB12 PO; +RT-ALBUINH IH; +SERT100T8 PO
--- NOTE | 2018-08-30 10:55 | ED Integumentary General ---
General Chief Complaint: Lower Extremity Stated Complaint: RIGHT LEG PAIN/REDNESS/LEAKING FLUID Nursing Triage Note: ARRIVED VIA WC TO ROOM 05. DISCHARGED FROM HOSPITAL LAST WEDNESDAY WITH SEPSIS AND CELLULITIS. PT STATES IT IS WEEPING MORE AND SHE IS OUT OF PAIN MEDS. HAS AN APPT WITH THE DR TOMORROW. SHE HAS HOME HEALTH AND COMES IN FOR IV ABX DAILY. Source: patient Exam Limitations: no limitations History of Present Illness Date Seen by Provider: Aug 30, 2018 Time Seen by Provider: 10:40 Initial Comments Patient presents to ER by private conveyance with her significant other with a chief complaint that she was seen in the ER 8 days ago and admitted for cellulitis of her right lower extremity. She was treated with antibiotics and sent out on outpatient infusion therapy antibiotics as well as clindamycin by mouth at home. She's not having any fevers or chills nausea or vomiting. She's been doing well with this and keeping her pain under good control using the hydrocodone 5 x 3 25 however she ran out yesterday. She called her primary care doctor's office again this morning and still is not heard back. She was followed by Dr. Kam inpatient as well. She is known to [facility]. She says the other concern she has is she's been at soaking through her dressings for cellulitis. She's been using Kerlix. She has home health nursing is been following her since the day after she was discharged. Allergies and Home Medications Allergies Coded Allergies: Penicillins (Unverified Allergy, Severe, ANAPHYLAXIS, has received Ceftriaxone & Cefepime w/o issue, 08/25/18) Home Medications Albuterol Sulfate 1 Puff Puff, 2 PUFF IH Q4H PRN for SHORTNESS OF BREATH, ( Reported) 1 PUFF = 90 MCG Aspirin/Acetaminophen/Caffeine 1 Each Tablet, 1 TAB PO DAILY PRN for MIGRAINE, ( Reported) Atorvastatin Calcium 80 Mg Tablet, 80 MG PO HS, (Reported) Budesonide 180 Mcg Aer.pow.ba, 1 PUFF INH BID, (Reported) Ceftriaxone Sodium 2 Gm/Vial Soln, 2 GM IV Q24H Prescribed by: DALE LOPEZ on 08/25/18 1036 Cetirizine HCl 10 Mg Tablet, 10 MG PO DAILY, (Reported) Clindamycin HCl 300 Mg Capsule, 300 MG PO TID Prescribed by: DALE LOPEZ on 08/25/18 1036 Cromolyn Sodium 10 Ml Drops, 2 DROPS OU DAILY PRN for ALLERGIES, (Reported) Fenofibrate 160 Mg Tablet, 160 MG PO DAILY, (Reported) Gabapentin 800 Mg Tablet, 800 MG PO TID, (Reported) Hydrochlorothiazide 25 Mg Tablet, 25 MG PO DAILY, (Reported) Hydrocodone Bit/Acetaminophen 1 Each Tablet, 1 TAB PO Q4H PRN for PAIN-MODERATE, (Reported) Ibuprofen 200 Mg Tablet, 800 MG PO TID PRN for PAIN-MILD, (Reported) Insulin Aspart 300 Units/3 Ml Solution, SQ AC PRN for SLIDING SCALE, (Reported) Insulin Aspart 300 Units/3 Ml Solution, 35 UNITS SC TIDAC, (Reported) Insulin Detemir 100 Unit/1 Ml Insuln.pen, 50 UNITS SC BID, (Reported) Lisinopril 40 Mg Tablet, 40 MG PO DAILY, (Reported) Metformin HCl 1,000 Mg Tablet, 1,000 MG PO BID WITH MEALS, (Reported) Metoprolol Tartrate 50 Mg Tablet, 50 MG PO BID, (Reported) Montelukast Sodium 10 Mg Tablet, 10 MG PO HS, (Reported) Multivitamin 1 Each Tablet, 1 TAB PO DAILY, (Reported) Nystatin 15 Gm Cream..g., TP BID PRN for RASH, (Reported) Ondansetron HCl 8 Mg Tablet, 8 MG PO TID PRN for NAUSEA/VOMITING-1ST LINE, ( Reported) Sertraline HCl 100 Mg Tablet, 100 MG PO DAILY, (Reported) Patient Home Medication List Home Medication List Reviewed: Yes Review of Systems Review of Systems Constitutional: No chills, No diaphoresis, No fever EENTM: No hearing loss, No ear pain Respiratory: No cough, No short of breath Cardiovascular: No chest pain, No palpitations Gastrointestinal: No abdominal pain, No nausea Genitourinary: No discharge, No dysuria Musculoskeletal: No back pain, No gout Skin: No pruritus, No rash Psychiatric/Neurological: Denies Anxiety, Denies Depressed Past Kyouoeg-Hwrnkz-Hqckxf Hx Patient Social History Alcohol Use: Denies Use Alcohol Beverage of Choice: Beer Recreational Drug Use: No Smoking Status: Never a Smoker Recent Foreign Travel: No Contact w/Someone Who Travel: No Recent Infectious Disease Expo: No Recent Hopitalizations: No Immunizations Up To Date Tetanus Booster (TDap): Less than 5yrs Date of Pneumonia Vaccine: Jul 25, 2015 Date of Influenza Vaccine: Aug 16, 2018 Seasonal Allergies Seasonal Allergies: Yes Past Medical History Surgeries: Yes (FALLOPIAN TUBE REMOVAL, I&D OF LT BUTTOCK WOUND, WISDOM TEETH, RT FOOT x2) Amputation, Appendectomy, Orthopedic Respiratory: Yes (HARD TO BREATH WHEN LYING FLAT ON BACK) Asthma Currently Using CPAP: No Currently Using BIPAP: No Cardiac: Yes High Cholesterol, Hypertension Neurological: Yes Headaches /Migraines, Neuropathy Reproductive Disorders: No Genitourinary: Yes Bladder Infection, Kidney Stones, UTI-Chronic Gastrointestinal: No (APPY) Gall Bladder Disease Musculoskeletal: Yes (OSTEOMYELITIS, DIABETIC NEUROPATHY, ARTHRITIS IN HANDS) Amputee Endocrine: Yes Diabetes, Insulin dep Loss of Vision: Denies Hearing Impairment: Denies Cancer: No Psychosocial: No Integumentary: No Blood Disorders: No Adverse Reaction/Blood Tranf: No Family Medical History Coronary thrombosis 19 MOTHER Diabetes mellitus 19 MOTHER Glaucoma 19 MOTHER Hypertension 19 MOTHER Retinal detachment Diabetes Physical Exam Vital Signs Vital Signs - First Documented 08/30/18 10:14 Temp 96.9 Pulse 92 Resp 16 B/P (MAP) 142/90 (107) Pulse Ox 97 O2 Delivery Room Air Capillary Refill : Less Than 3 Seconds General Appearance: WD/WN, no apparent distress HEENT: PERRL/EOMI, pharynx normal Cardiovascular: normal peripheral pulses, regular rate, rhythm, other (chronic lymphedema bilateral lower extremities) Respiratory: no respiratory distress, no accessory muscle use Neurologic/Psychiatric: alert, normal mood/affect, oriented x 3 Skin: other (right lower leg has circumferential cellulitic-looking scalded skin with weeping of serous fluids. There is no erythematous base or evidence that there is worsening cellulitis outside of the denuded skin.) Progress/Results/Core Measures Results/Orders Lab Results Laboratory Tests Test 08/30/18 11:45 Range/Units White Blood Count 10.6 4.3-11.0 10^3/uL Red Blood Count 3.92 L 4.35-5.85 10^6/uL Hemoglobin 11.7 # 11.5-16.0 G/DL Hematocrit 36 35-52 % Mean Corpuscular Volume 92 80-99 FL Mean Corpuscular Hemoglobin 30 25-34 PG Mean Corpuscular Hemoglobin Concent 33 32-36 G/DL Red Cell Distribution Width 13.8 10.0-14.5 % Platelet Count 402 H 130-400 10^3/uL Mean Platelet Volume 9.4 7.4-10.4 FL Neutrophils (%) (Auto) 79 H 42-75 % Lymphocytes (%) (Auto) 14 12-44 % Monocytes (%) (Auto) 6 0-12 % Eosinophils (%) (Auto) 1 0-10 % Basophils (%) (Auto) 1 0-10 % Neutrophils # (Auto) 8.3 H 1.8-7.8 X 10^3 Lymphocytes # (Auto) 1.5 1.0-4.0 X 10^3 Monocytes # (Auto) 0.6 0.0-1.0 X 10^3 Eosinophils # (Auto) 0.1 0.0-0.3 10^3/uL Basophils # (Auto) 0.1 0.0-0.1 10^3/uL Sodium Level 137 135-145 MMOL/L Potassium Level 4.3 3.6-5.0 MMOL/L Chloride Level 105 98-107 MMOL/L Carbon Dioxide Level 21 21-32 MMOL/L Anion Gap 11 5-14 MMOL/L Blood Urea Nitrogen 22 H 7-18 MG/DL Creatinine 0.99 0.60-1.30 MG/DL Estimat Glomerular Filtration Rate > 60 BUN/Creatinine Ratio 22 Glucose Level 75 70-105 MG/DL Calcium Level 9.6 8.5-10.1 MG/DL Corrected Calcium 9.9 8.5-10.1 MG/DL Total Bilirubin 0.2 0.1-1.0 MG/DL Aspartate Amino Transf (AST/SGOT) 21 5-34 U/L Alanine Aminotransferase (ALT/SGPT) 24 0-55 U/L Alkaline Phosphatase 51 40-136 U/L Total Protein 7.9 6.4-8.2 GM/DL Albumin 3.6 3.2-4.5 GM/DL My Orders Orders - ALDO ROBLERO Hydrocodone/Apap 5/325 Tablet (Lortab 5 (08/30/18 11:00) Cbc With Automated Diff (08/30/18 10:51) Comprehensive Metabolic Panel (08/30/18 10:51) Medications Given in ED Current Medications Medications Dose Ordered Sig/Isabella Route Start Time Stop Time Status Last Admin Dose Admin Acetaminophen/ Hydrocodone Bitart 1 tab ONCE ONCE PO 08/30/18 11:00 08/30/18 11:01 DC 08/30/18 10:56 1 TAB Vital Signs/I&O 08/30/18 10:14 Temp 96.9 Pulse 92 Resp 16 B/P (MAP) 142/90 (107) Pulse Ox 97 O2 Delivery Room Air Blood Pressure Mean: 107 Progress Progress Note #1: Time: 11:22 Progress Note The patient's chief complaint seems to come down to she's having uncontrolled pain since she's ran out of pain medicines and wound weeping.We are going to instruct her to use compression dressings and give her a single tablet of hydrocodone. Her vital signs are not concerning except for heart rate of 92 which could be secondary to pain or evidence of worsening condition. We'll go ahead and check some basic labs and compare them to last week at the time of discharge and if everything else looks okay we will set her up to follow up with home health again and the primary care doctor's office. The patient had received inpatient cefepime, vancomycin and clindamycin. She was sent home on Rocephin 2 g every 24 hours as well as home clindamycin for 1 week. She had been diagnosed with cellulitis with pre-existing chronic lymphedema and a possible element of lymphangitis as well. Plan for dressings was compression dressings since arterial infusion is reasonable. Home health care was to provide dressing. Progress Note #2: Time: 12:23 Progress Note The patient's hemoglobin is improved to points in the past 5 days. Possible this is reactive versus also a little bit of fluid volume contraction as her BUNs is mildly elevated at 22. This would probably be because of the constant weeping. We'll put a compression dressing on her leg and encourage her to keep this on for the whole day and have wound care do Further teaching how to replace it. Departure Impression Primary Impression: Cellulitis Qualified Codes: L03.115 - Cellulitis of right lower limb Disposition: 01 HOME, SELF-CARE Condition: Improved Departure-Patient Inst. Decision time for Depature: 12:30 Referrals: STEPHANIE FLORENCE MD (PCP) Primary Care Physician Patient Instructions: Cellulitis (Skin Infection), Adult (DC) Add. Discharge Instructions: Change the dressing daily. Use Vaseline soaked gauze and followed by a layer of Kerlix and then wrapped with Coban and but not so tight she can't figure fingers under it. Keep the foot and leg elevated above the level of your heart when possible. Stay active. Follow up with your primary care doctor tomorrow. Continue to use the antibiotics as described. If you have pain you can use one tablet of hydrocodone every 4 hours as needed. All discharge instructions reviewed with patient and/or family. Voiced understanding. Scripts Hydrocodone Bit/Acetaminophen (Hydrocodone/Acetaminophen 5/325mg Tablet) 1 Tab Tab 1 EACH PO Q4-6HR PRN for PAIN-MODERATE MDD 10, #12 TAB 0 Refills Prov: ALDO ROBLERO 08/30/18 Copy Copies To 1: DALE LOPEZ DO ALDO ROBLERO Aug 30, 2018 10:55
[2018-08-30] MEDS ORDERED: HYDROcodone/APAP 5 MG/325 MG (LORTAB) TAB PO ONE (11:00)
[2018-08-30 11:55] LABS: BASOPHILS # (AUTO) 0.1 10^3/uL (0.0-0.1); BASOPHILS % (AUTO) 1 % (0-10); EOSINOPHILS # (AUTO) 0.1 10^3/uL (0.0-0.3); EOSINOPHILS % (AUTO) 1 % (0-10); HEMATOCRIT 36 % (35-52); HEMOGLOBIN 11.7 G/DL (11.5-16.0); LYMPHOCYTES # (AUTO) 1.5 X 10^3 (1.0-4.0); LYMPHOCYTES % (AUTO) 14 % (12-44); MEAN CORPUSCULAR HEMOGLOBIN 30 PG (25-34); MEAN CORPUSCULAR HGB CONC 33 G/DL (32-36); MEAN CORPUSCULAR VOLUME 92 FL (80-99); MEAN PLATELET VOLUME 9.4 FL (7.4-10.4); MONOCYTES # (AUTO) 0.6 X 10^3 (0.0-1.0); MONOCYTES % (AUTO) 6 % (0-12); NEUTROPHILS # (AUTO) 8.3 X 10^3 (1.8-7.8); NEUTROPHILS % (AUTO) 79 % (42-75); PLATELET COUNT 402 10^3/uL (130-400); RED BLOOD COUNT 3.92 10^6/uL (4.35-5.85); RED CELL DISTRIBUTION WIDTH 13.8 % (10.0-14.5); WHITE BLOOD COUNT 10.6 10^3/uL (4.3-11.0)
[2018-08-30 12:16] LABS: ALANINE AMINOTRANSFERASE 24 U/L (0-55); ALBUMIN 3.6 GM/DL (3.2-4.5); ALKALINE PHOSPHATASE 51 U/L (40-136); BILIRUBIN,TOTAL 0.2 MG/DL (0.1-1.0); BUN/CREATININE RATIO 22; CALCIUM 9.6 MG/DL (8.5-10.1); CARBON DIOXIDE 21 MMOL/L (21-32); CHLORIDE 105 MMOL/L (98-107); CREATININE SERUM 0.99 MG/DL (0.60-1.30); GFR ESTIMATED > 60; GLUCOSE 75 MG/DL (70-105); POTASSIUM 4.3 MMOL/L (3.6-5.0); SODIUM 137 MMOL/L (135-145); TOTAL PROTEIN 7.9 GM/DL (6.4-8.2)
[2018-08-30] MEDS ORDERED: ACHD5005 PO (12:32)
[2018-08-30 12:38] VITALS: BP 142/90
== END 2018-08-30 12:36 | disposition home or self-care (01) ==
LOC: EDUNIT# 10:09 → ER 10:11
DX: L03.115 Cellulitis of right lower limb (principal); I10 Essential (primary) hypertension; E78.00 Pure hypercholesterolemia, unspecified; G43.909 Migraine, unspecified, not intractable, without status migrainosus; E11.40 Type 2 diabetes mellitus with diabetic neuropathy, unspecified; E11.69 Type 2 diabetes mellitus with other specified complication; M86.9 Osteomyelitis, unspecified; M19.041 Primary osteoarthritis, right hand; M19.042 Primary osteoarthritis, left hand; Z87.440 Personal history of urinary (tract) infections; Z87.442 Personal history of urinary calculi; Z88.0 Allergy status to penicillin; Z79.82 Long term (current) use of aspirin; Z79.4 Long term (current) use of insulin; Z90.49 Acquired absence of other specified parts of digestive tract
CPT/HCPCS: 36415; 80053; 85025

== ENCOUNTER 2018-09-01 14:20 | Outpatient (RCR) | payer MEDICAID ==
[2018-08-26] MEDS: CATHETER FLUSH 10 ML SYR IV PRN (14:53)
[2018-08-26] MEDS: cefTRIAXone 2 GM/NS 50 ML IVPB IV SCH ×2 (14:54)
[2018-08-26 15:25] VITALS: BP 124/73
[2018-08-27] MEDS: CATHETER FLUSH 10 ML SYR IV PRN (10:14)
[2018-08-27] MEDS: cefTRIAXone 2 GM/NS 50 ML IVPB IV SCH ×2 (10:14)
[2018-08-27 10:45] VITALS: BP 117/68
[2018-08-28] MEDS: cefTRIAXone 2 GM/NS 50 ML IVPB IV SCH ×2 (14:27)
[2018-08-28] MEDS: CATHETER FLUSH 10 ML SYR IV PRN (14:27)
[2018-08-28 15:00] VITALS: BP 159/70
[2018-08-29] MEDS: cefTRIAXone 2 GM/NS 50 ML IVPB IV SCH ×2 (14:25)
[2018-08-29 14:26] VITALS: BP 154/83
[2018-08-29] MEDS: CATHETER FLUSH 10 ML SYR IV PRN (14:26)
[2018-08-30] MEDS: cefTRIAXone 2 GM/NS 50 ML IVPB IV SCH ×2 (12:57)
[2018-08-30] MEDS: CATHETER FLUSH 10 ML SYR IV PRN (12:57)
[2018-08-30 13:11] VITALS: BP 133/76
[2018-08-31 14:57] VITALS: BP 113/69
[2018-08-31] MEDS: CATHETER FLUSH 10 ML SYR IV PRN (14:57)
[2018-08-31] MEDS: cefTRIAXone 2 GM/NS 50 ML IVPB IV SCH ×2 (14:57)
[~2018-09-01] VITALS: Ht 167.6 cm; Wt 164.3 kg
[2018-09-01 14:19] VITALS: BP 123/77
[2018-09-01] MEDS: cefTRIAXone 2 GM/NS 50 ML IVPB IV SCH ×2 (14:37)
== END 2018-09-01 15:10 | disposition home or self-care (01) ==
LOC: SDC 14:20
PROVIDERS: ATTEND Family Medicine
DX: L03.115 Cellulitis of right lower limb (principal)
CPT/HCPCS: 96365

== ENCOUNTER → 2019-03-24 | Outpatient (CLI) | payer MEDICAID ==
[~2019-03-24] MED LIST changes: +GABA800T10 PO; -GABA800T2 PO
== END ==
LOC: CARD 09:16
PROVIDERS: ATTEND Internal Medicine Interventional Cardiology
DX: E78.5 Hyperlipidemia, unspecified (principal); I10 Essential (primary) hypertension; I73.9 Peripheral vascular disease, unspecified; R06.02 Shortness of breath; E10.9 Type 1 diabetes mellitus without complications
CPT/HCPCS: 93306

== ENCOUNTER → 2019-09-07 | Outpatient (CLI) | payer MEDICAID ==
--- NOTE | 2019-09-07 18:07 | Diagnostic Imaging Report ---
PROCEDURE: US right lower extremity venous. TECHNIQUE: Multiple real-time grayscale images were obtained over the right lower extremity in various projections. Additional spectral analysis and color Doppler duplex images were also obtained. INDICATION: Right leg swelling The veins of the right leg have good color filling and compressibility. There is phasic flow and an appropriate response to augmentation. IMPRESSION: Negative venous Doppler right leg Dictated by: Dictated on workstation # [id number]
--- NOTE | 2019-09-07 18:13 | Diagnostic Imaging Report ---
INDICATION: Right leg swelling Arterial Doppler right leg Duplex ultrasound of the arterial system of the right leg was done with grayscale, spectral waveform and color Doppler analysis Patient has triphasic wave pattern from the common femoral artery to the popliteal artery with normal velocity transition. [place]ao[place] the waveforms become monophasic. IMPRESSION: There appears to be some small vessel disease below the knee causing some dampening of the waveforms. No occlusion is seen. The velocities at the ankle are relatively well-maintained. Dictated by: Dictated on workstation # [id number]
== END ==
LOC: RAD 14:25
PROVIDERS: ATTEND Nurse Practitioner Family
DX: M79.89 Other specified soft tissue disorders (principal)
CPT/HCPCS: 93926

== ENCOUNTER → 2019-10-19 | Outpatient (CLI) | payer MEDICAID ==
[~2019-10-19] MED LIST changes: +HOLD METFORMIN - RECEIVED CONTRAST 20 ML VIAL IV SCH; +IOHEXOL 350 MG/ML 100 ML (OMNIPAQUE 350) VIAL IV ONE; +NS 100 ML (IVPB) BAG IV ONE
[2019-10-19 10:36] LABS: ALANINE AMINOTRANSFERASE 30 U/L (0-55); ALBUMIN 3.7 GM/DL (3.2-4.5); ALKALINE PHOSPHATASE 52 U/L (40-136); BILIRUBIN,TOTAL 0.7 MG/DL (0.1-1.0); BUN/CREATININE RATIO 24; CALCIUM 8.1 MG/DL (8.5-10.1); CARBON DIOXIDE 22 MMOL/L (21-32); CHLORIDE 105 MMOL/L (98-107); GFR ESTIMATED > 60; GLUCOSE 197 MG/DL (70-105); POTASSIUM 3.7 MMOL/L (3.6-5.0); SODIUM 139 MMOL/L (135-145); TOTAL PROTEIN 7.4 GM/DL (6.4-8.2)
--- NOTE | 2019-10-19 11:49 | Diagnostic Imaging Report ---
PROCEDURE: CT pelvis with contrast. TECHNIQUE: Oral and intravenous contrast were administered with pelvic CT performed. Auto Exposure Controls were utilized during the CT exam to meet ALARA standards for radiation dose reduction. INDICATION: Right leg swelling for two years with pain in the right leg. FINDINGS: No inguinal or iliac mass is identified. Partially filled urinary bladder is unremarkable. Uterus is unremarkable. Right ovary appears unremarkable. Left ovary is not well visualized. No free fluid or fluid collection is identified. Visualized pelvic bowel loops are unremarkable. The pelvic structures are unremarkable. IMPRESSION: Unremarkable CT of the pelvis. No pelvic mass or lymphadenopathy is detected. Dictated by: Dictated on workstation # [id number]
== END ==
LOC: RAD 09:52
PROVIDERS: ATTEND Nurse Practitioner Family
DX: M79.89 Other specified soft tissue disorders (principal)
CPT/HCPCS: 36415; 72193; 80053

== ENCOUNTER 2021-12-02 05:29 | Outpatient (RCR) | payer MEDICAID ==
[~2021-12-02] VITALS: Ht 167.7 cm; Wt 172.0 kg
[~2021-12-02 05:29] MED LIST changes: +ASPI-999 PO; +CLIN-144 PO; -CLIN150C17 PO; +CLIN150C20 PO; -CLIN300C11 PO; +FLUT9.9S NS; +GABA-486 PO; -HOLD METFORMIN - RECEIVED CONTRAST 20 ML VIAL IV SCH; -IBUP-2055 PO; +IBUP-2473 PO; -IOHEXOL 350 MG/ML 100 ML (OMNIPAQUE 350) VIAL IV ONE; +IPRA3AMP31 IH; -LISI40TA PO; +LISI40TA9 PO; +MONT-40 PO; -NS 100 ML (IVPB) BAG IV ONE; +ONAB100V IJ; +ONDA-106 PO; -ONDA8TAB12 PO; +POTA99TA26 PO; +SERT-413 PO; +SERT-414 PO; -SERT100T8 PO; -SERT50TA9 PO; -SULF1TAB35 PO; +SULF1TAB38 PO; +UBRO100T PO
== END 2021-12-04 08:15 | disposition home or self-care (01) ==
LOC: PREOP 05:29
PROVIDERS: ATTEND Surgery
DX: Z01.812 Encounter for preprocedural laboratory examination (principal); M86.9 Osteomyelitis, unspecified; Z20.822 Contact with and (suspected) exposure to COVID-19
CPT/HCPCS: 87635

== ENCOUNTER 2021-12-04 08:14 | Day surgery (SDC) | payer MEDICAID ==
[2021-12-04] VITALS (12 sets, daily range): BP systolic 106–167; BP diastolic 58–96
[~2021-12-04] VITALS: Ht 167.7 cm; Wt 172.0 kg
[2021-12-04] MEDS ORDERED: CLINDAMYCIN 600 MG/50 ML IVPB 50 ML IV ONE ×2 (08:57→09:00)
[2021-12-04] MEDS ORDERED: LACTATED RINGERS 1,000 ML IV PRN (09:00)
[2021-12-04] MEDS ORDERED: LIDOCAINE 1% INJ 20 ML VIAL ONE (09:15)
[2021-12-04] MEDS ORDERED: BUPIVACAINE 0.5% 30 ML (SENSORCAINE) VIAL ONE (09:15)
[2021-12-04] MEDS ORDERED: MIDAZOLAM 2 MG/2 ML (VERSED) VIAL ONE (09:58)
[2021-12-04] MEDS ORDERED: ONDANSETRON 4 MG/2 ML (SDV) Z0FRAN ONE (09:58)
[2021-12-04] MEDS ORDERED: fentaNYL INJ 100 MCG/2 ML AMP ONE (09:58)
[2021-12-04] MEDS ORDERED: proPOfol 200 MG/20 ML (DIPRIVAN) VIAL IV ONE (09:58)
[2021-12-04] MEDS ORDERED: LIDOCAINE PF 2% 5 ML (XYLOCAINE) VIAL ONE (09:58)
--- NOTE | 2021-12-04 10:15 | Progress Note-Pre Operative ---
Pre-Operative Progress Note H&P Reviewed The H&P was reviewed, patient examined and no changes noted. Date Seen by Provider: Dec 04, 2021 Time Seen by Provider: 10:15 Date H&P Reviewed: Dec 04, 2021 Time H&P Reviewed: 10:15 Pre-Operative Diagnosis: osteomyelitis left great toe MAME WOLFF DO Dec 04, 2021 10:15
--- NOTE | 2021-12-04 11:27 | Progress Note-Post Operative ---
Post-Operative Progess Note Surgeon (s)/[employer] Librarian (s) Surgeon MAME WOLFF DO [employer] Librarian: na Pre-Operative Diagnosis osteomyelitis left great toe Post-Operative Diagnosis same Procedure & Operative Findings Date of Procedure 12/04/21 Procedure Performed/Findings left great toe amputation and 4.5 x 5 cm wound vac placement Anesthesia Type general Estimated Blood Loss Estimated blood loss (mL): minimal Specimens/Packing Specimens Removed left great toe MAME WOLFF DO Dec 04, 2021 11:27
--- NOTE | 2021-12-04 11:32 | Discharge Inst-Simple/Standard ---
Discharge Inst-Standard Patient Instructions/Follow Up Plan of Care/Instructions/FU: Susan 3 weeks. Wound care appoitment for wednesday has been arranged, keep all appointments. Transportation has been arranged as well. Activity as Tolerated: Yes Discharge Diet: Regular Diet Other Inst to Patient Follow up Appt: Make appointment for 3 week Susan. Wound care appointments have been made for wound vac appointments. Instructions: May shower in 24 hours, no tub bath or soaking. Use incentive spirometer at home as directed. No Smoking Skin/Wound Care: Wound vac in place. Symptoms to Report: Appetite Changes, Extremity Discoloration, Numbness/Tingling, Swelling Increased, Bleeding Excessive, Eyesight Changes, Pain Increased, Urine Color Change, Constipation(Persistent), Fever over 101 degree F, Pain/Pressure in chest, Urinating Difficulty, Cough Up/Vomit Blood, Heart Beat Irreg/Pounding, Pain/Pressure in jaw, Vaginal Bleeding Increase, Cramps in feet or legs, Lightheadedness, Pain/Pressure in shoulder, Diarrhea(Persistent), Memory Changes Suddenly, Questions/Concerns, Weight gain consecutive days, Dizziness/Fainting, Nausea/Vomiting, Shortness of Breath, Weight gain over 2 pounds If questions or concerns contact your physician Or seek help at emergency department. MAME WOLFF DO Dec 04, 2021 11:31
[2021-12-04] MEDS ORDERED: SEVOFLURANE (ULTANE) 15 ML INHAL SOLN ONE (11:37)
--- NOTE | 2021-12-04 13:36 | OPERATIVE REPORT ---
DATE OF SERVICE: 12/04/2021 PREOPERATIVE DIAGNOSIS: Osteomyelitis, left great toe. POSTOPERATIVE DIAGNOSIS: Osteomyelitis, left great toe. PROCEDURE PERFORMED: Left great toe amputation with wound VAC placement, 4.5 x 5 cm. SURGEON: Mame Davis DO. ANESTHESIA: General. ESTIMATED BLOOD LOSS: Minimal. COMPLICATIONS: None. INDICATIONS FOR PROCEDURE: The patient is a 46-year-old female with osteomyelitis to the left great toe. She understands the risks and benefits of the procedure and wished to proceed. Consent was signed. DESCRIPTION OF PROCEDURE: A 15 blade scalpel was used to make a circumferential incision around the left great toe incorporating an ulceration that was present. Cautery was used to dissect down through the subcutaneous tissues down to the metacarpophalangeal joint, where this was then divided. The metacarpal bone had no evidence of any infection or osteomyelitis. The left great toe was then completely amputated. Hemostasis was achieved. The wound was then irrigated and a white foam was placed over the bone after it was cut to size. The black foam was then placed over the top of it with dimensions measuring 4.5 x 5 cm. A tract was then placed on the dorsal aspect of the foot and then secured. The patient tolerated the procedure well without any complications. She was taken to the recovery room in stable condition. RECOMMENDATIONS: The patient has been set up with wound care for wound VAC changes. I will followup with her in the office in about three weeks. Any issues will be seen at that time. Job ID: [id number] DocumentID: [id number] Dictated Date: 12/04/2021 11:35:40 Pipe Fittings Molder Date: 12/04/2021 13:35:49 Dictated By: MAME DAVIS DO MTDD
--- NOTE | 2021-12-09 08:26 | Anesthesia-General Post-Op ---
General Significant Intra-Op Events Notes late entry from 12-04-21 at 1230 Patient Condition Mental Status/LOC: Same as Preop Cardiovascular: Satisfactory Nausea/Vomiting: Absent Respiratory: Satisfactory Pain: Controlled Complications: Absent Post Op Complications Complications None Follow Up Care/Instructions Patient Instructions None needed. Anesthesia/Patient Condition Patient Condition Patient is doing well, no complaints, stable vital signs, no apparent adverse anesthesia problems. No complications reported per nursing. CATARINA WRIGHT CRNA Dec 09, 2021 08:26
== END 2021-12-04 13:35 ==
LOC: SDC 08:14
PROVIDERS: ATTEND Surgery
DX: E11.69 Type 2 diabetes mellitus with other specified complication (principal); M86.9 Osteomyelitis, unspecified; J45.909 Unspecified asthma, uncomplicated; I10 Essential (primary) hypertension; E66.01 Morbid (severe) obesity due to excess calories; F32.A Depression, unspecified; Z79.82 Long term (current) use of aspirin; Z79.899 Other long term (current) drug therapy; Z68.44 Body mass index [BMI] 60.0-69.9, adult; Z79.891 Long term (current) use of opiate analgesic; Z79.84 Long term (current) use of oral hypoglycemic drugs; Z79.4 Long term (current) use of insulin
CPT/HCPCS: 87081

== ENCOUNTER → 2021-12-08 | Outpatient (CLI) | payer MEDICAID | LOC: WOUNDCARE 09:03 | PROVIDERS: ATTEND Family Medicine | DX: E11.52 Type 2 diabetes mellitus with diabetic peripheral angiopathy with gangrene (principal); E11.621 Type 2 diabetes mellitus with foot ulcer; I96 Gangrene, not elsewhere classified; L97.524 Non-pressure chronic ulcer of other part of left foot with necrosis of bone; E66.01 Morbid (severe) obesity due to excess calories; I89.0 Lymphedema, not elsewhere classified; T87.9 Unspecified complications of amputation stump; E11.65 Type 2 diabetes mellitus with hyperglycemia; M86.672 Other chronic osteomyelitis, left ankle and foot; Z68.44 Body mass index [BMI] 60.0-69.9, adult | CPT/HCPCS: 11042; 11045; 87070; 87205; 97605; G0463; 87077 ==

== ENCOUNTER → 2021-12-08 | Outpatient (CLI) | payer MEDICAID ==
[2021-12-08 11:41] LABS: BASOPHILS # (AUTO) 0.1 10^3/uL (0.0-0.1); BASOPHILS % (AUTO) 1 % (0-10); EOSINOPHILS # (AUTO) 0.2 10^3/uL (0.0-0.3); EOSINOPHILS % (AUTO) 2 % (0-10); HEMATOCRIT 37 % (35-52); HEMOGLOBIN 12.3 g/dL (11.5-16.0); LYMPHOCYTES # (AUTO) 1.9 10^3/uL (1.0-4.0); LYMPHOCYTES % (AUTO) 19 % (12-44); MEAN CORPUSCULAR HEMOGLOBIN 30 pg (25-34); MEAN CORPUSCULAR HGB CONC 34 g/dL (32-36); MEAN CORPUSCULAR VOLUME 89 fL (80-99); MEAN PLATELET VOLUME 10.1 fL (9.0-12.2); MONOCYTES # (AUTO) 0.6 10^3/uL (0.0-1.0); MONOCYTES % (AUTO) 6 % (0-12); NEUTROPHILS # (AUTO) 7.2 10^3/uL (1.8-7.8); NEUTROPHILS % (AUTO) 72 % (42-75); PLATELET COUNT 273 10^3/uL (130-400)
[2021-12-08 11:49] LABS: ALBUMIN 3.7 GM/DL (3.2-4.5)
[2021-12-08 11:51] LABS: CALCIUM 8.1 MG/DL (8.5-10.1)
[2021-12-08 11:52] LABS: TOTAL PROTEIN 7.6 GM/DL (6.4-8.2)
[2021-12-08 11:54] LABS: BILIRUBIN,TOTAL 0.7 MG/DL (0.1-1.0)
[2021-12-08 11:56] LABS: CREATININE SERUM 0.85 MG/DL (0.60-1.30)
== END ==
LOC: LAB 11:01
PROVIDERS: ATTEND Family Medicine
DX: L97.524 Non-pressure chronic ulcer of other part of left foot with necrosis of bone (principal)
CPT/HCPCS: 36415; 80053; 83036; 85025

== ENCOUNTER → 2021-12-15 | Outpatient (CLI) | payer MEDICAID | LOC: WOUNDCARE 08:55 | PROVIDERS: ATTEND Family Medicine | DX: E11.52 Type 2 diabetes mellitus with diabetic peripheral angiopathy with gangrene (principal); E11.621 Type 2 diabetes mellitus with foot ulcer; L97.524 Non-pressure chronic ulcer of other part of left foot with necrosis of bone; E66.01 Morbid (severe) obesity due to excess calories; I89.0 Lymphedema, not elsewhere classified; I96 Gangrene, not elsewhere classified; T87.9 Unspecified complications of amputation stump; E11.65 Type 2 diabetes mellitus with hyperglycemia; M86.672 Other chronic osteomyelitis, left ankle and foot; Z68.44 Body mass index [BMI] 60.0-69.9, adult | CPT/HCPCS: 11042; 11045; 97605; G0463 ==

== ENCOUNTER → 2021-12-22 | Outpatient (RCR) | payer MEDICAID | LOC: WOUNDCARE 10:55 | PROVIDERS: ATTEND Family Medicine | DX: E11.622 Type 2 diabetes mellitus with other skin ulcer (principal) | CPT/HCPCS: 82947; 99212 ==

== ENCOUNTER → 2021-12-22 | Outpatient (CLI) | payer MEDICAID | LOC: WOUNDCARE 10:53 | PROVIDERS: ATTEND Family Medicine | DX: E11.622 Type 2 diabetes mellitus with other skin ulcer (principal); I10 Essential (primary) hypertension; J45.909 Unspecified asthma, uncomplicated | CPT/HCPCS: 97605; G0463 ==

== ENCOUNTER → 2021-12-24 | Outpatient (CLI) | payer MEDICAID | LOC: WOUNDCARE 10:57 | PROVIDERS: ATTEND Family Medicine | DX: E11.622 Type 2 diabetes mellitus with other skin ulcer (principal); I10 Essential (primary) hypertension | CPT/HCPCS: 97605; G0463 ==

== ENCOUNTER → 2021-12-26 | Outpatient (CLI) | payer MEDICAID | LOC: WOUNDCARE 10:56 | PROVIDERS: ATTEND Family Medicine | DX: E11.621 Type 2 diabetes mellitus with foot ulcer (principal); L97.524 Non-pressure chronic ulcer of other part of left foot with necrosis of bone; E66.01 Morbid (severe) obesity due to excess calories; I89.0 Lymphedema, not elsewhere classified; T87.9 Unspecified complications of amputation stump; E11.65 Type 2 diabetes mellitus with hyperglycemia; E11.52 Type 2 diabetes mellitus with diabetic peripheral angiopathy with gangrene; M86.672 Other chronic osteomyelitis, left ankle and foot; Z68.44 Body mass index [BMI] 60.0-69.9, adult | CPT/HCPCS: 11042; A6260; G0463 ==

== ENCOUNTER → 2022-01-06 | Outpatient (CLI) | payer MEDICAID | LOC: WOUNDCARE 10:40 | PROVIDERS: ATTEND Family Medicine | DX: E11.622 Type 2 diabetes mellitus with other skin ulcer (principal); E11.40 Type 2 diabetes mellitus with diabetic neuropathy, unspecified; I10 Essential (primary) hypertension; J45.909 Unspecified asthma, uncomplicated | CPT/HCPCS: A6260; G0463; 99212 ==

== ENCOUNTER → 2022-01-09 | Outpatient (CLI) | payer MEDICAID | LOC: WOUNDCARE 11:01 | PROVIDERS: ATTEND Family Medicine | DX: E11.621 Type 2 diabetes mellitus with foot ulcer (principal); L97.524 Non-pressure chronic ulcer of other part of left foot with necrosis of bone; E66.01 Morbid (severe) obesity due to excess calories; I89.0 Lymphedema, not elsewhere classified; T87.9 Unspecified complications of amputation stump; E11.65 Type 2 diabetes mellitus with hyperglycemia; E11.52 Type 2 diabetes mellitus with diabetic peripheral angiopathy with gangrene; M86.672 Other chronic osteomyelitis, left ankle and foot; Z68.44 Body mass index [BMI] 60.0-69.9, adult | CPT/HCPCS: 11042; 11045; A6197; G0463 ==

== ENCOUNTER → 2022-01-16 | Outpatient (CLI) | payer MEDICAID | LOC: WOUNDCARE 08:11 | PROVIDERS: ATTEND Family Medicine | DX: L97.524 Non-pressure chronic ulcer of other part of left foot with necrosis of bone (principal); E11.621 Type 2 diabetes mellitus with foot ulcer; E66.01 Morbid (severe) obesity due to excess calories; I89.0 Lymphedema, not elsewhere classified; T87.9 Unspecified complications of amputation stump; E11.65 Type 2 diabetes mellitus with hyperglycemia; M86.672 Other chronic osteomyelitis, left ankle and foot; L92.8 Other granulomatous disorders of the skin and subcutaneous tissue; B96.5 Pseudomonas (aeruginosa) (mallei) (pseudomallei) as the cause of diseases classified elsewhere; B95.61 Methicillin susceptible Staphylococcus aureus infection as the cause of diseases classified elsewhere; E11.52 Type 2 diabetes mellitus with diabetic peripheral angiopathy with gangrene | CPT/HCPCS: 11042; 11045; 97605; A6207; G0463 ==

== ENCOUNTER → 2022-01-19 | Outpatient (CLI) | payer MEDICAID | LOC: WOUNDCARE 08:05 | PROVIDERS: ATTEND Family Medicine | DX: E11.622 Type 2 diabetes mellitus with other skin ulcer (principal); E11.40 Type 2 diabetes mellitus with diabetic neuropathy, unspecified; J45.909 Unspecified asthma, uncomplicated; I10 Essential (primary) hypertension; M81.0 Age-related osteoporosis without current pathological fracture; M86.9 Osteomyelitis, unspecified | CPT/HCPCS: 97605; G0463 ==

== ENCOUNTER → 2022-01-22 | Outpatient (RCR) | payer MEDICAID | END | disposition home or self-care (01) | LOC: WOUNDCARE 12-24 10:59 | PROVIDERS: ATTEND Family Medicine | DX: E11.621 Type 2 diabetes mellitus with foot ulcer (principal) | CPT/HCPCS: 82947; G0277; 99183 ==

== ENCOUNTER → 2022-01-26 | Outpatient (CLI) | payer MEDICAID | LOC: WOUNDCARE 08:02 | PROVIDERS: ATTEND Family Medicine | DX: E11.621 Type 2 diabetes mellitus with foot ulcer (principal); I10 Essential (primary) hypertension; J45.909 Unspecified asthma, uncomplicated | CPT/HCPCS: 97605; A6207; G0463 ==

== ENCOUNTER → 2022-01-28 | Outpatient (CLI) | payer MEDICAID | LOC: WOUNDCARE 08:17 | PROVIDERS: ATTEND Family Medicine | DX: E11.621 Type 2 diabetes mellitus with foot ulcer (principal); J45.909 Unspecified asthma, uncomplicated; E11.52 Type 2 diabetes mellitus with diabetic peripheral angiopathy with gangrene | CPT/HCPCS: 97606; G0463; 99183 ==

== ENCOUNTER → 2022-01-30 | Outpatient (CLI) | payer MEDICAID ==
--- NOTE | 2022-01-30 14:39 | Diagnostic Imaging Report ---
Indication: Chronic ulcer left foot. Time of Exam: 1:12 PM 3 views of the left lower foot obtained. There are multiple amputations present involving the phalanges. There is some irregularity to the cortex of the distal 1st metatarsal with some periosteal reaction present, suspicious for osteomyelitis. 2nd through 5th metatarsals are intact. The remaining phalanges of the 3rd through 5th toes are unremarkable. Midfoot and hindfoot are unremarkable apart from a large plantar calcaneal spur. There is dorsal soft tissue swelling present. IMPRESSION: There is some irregularity and erosive changes of the distal aspect of the 1st metatarsal, concerning for osteomyelitis. Dictated by: Dictated on workstation # [id number]
== END ==
LOC: RAD 12:42
PROVIDERS: ATTEND Orthopaedic Surgery Hand Surgery
DX: L97.524 Non-pressure chronic ulcer of other part of left foot with necrosis of bone (principal)
CPT/HCPCS: 73630

== ENCOUNTER → 2022-01-30 | Outpatient (CLI) | payer MEDICAID | LOC: WOUNDCARE 08:07 | PROVIDERS: ATTEND Orthopaedic Surgery Hand Surgery | DX: E11.621 Type 2 diabetes mellitus with foot ulcer (principal); L97.824 Non-pressure chronic ulcer of other part of left lower leg with necrosis of bone; E11.52 Type 2 diabetes mellitus with diabetic peripheral angiopathy with gangrene; E66.01 Morbid (severe) obesity due to excess calories; I89.0 Lymphedema, not elsewhere classified; T87.9 Unspecified complications of amputation stump; E11.65 Type 2 diabetes mellitus with hyperglycemia; M86.672 Other chronic osteomyelitis, left ankle and foot; L92.8 Other granulomatous disorders of the skin and subcutaneous tissue; B96.5 Pseudomonas (aeruginosa) (mallei) (pseudomallei) as the cause of diseases classified elsewhere; B95.61 Methicillin susceptible Staphylococcus aureus infection as the cause of diseases classified elsewhere; Z68.44 Body mass index [BMI] 60.0-69.9, adult | CPT/HCPCS: 17250; G0463 ==

== ENCOUNTER → 2022-02-02 | Outpatient (CLI) | payer MEDICAID | LOC: WOUNDCARE 08:01 | PROVIDERS: ATTEND Family Medicine | DX: E11.621 Type 2 diabetes mellitus with foot ulcer (principal); I10 Essential (primary) hypertension; J45.909 Unspecified asthma, uncomplicated | CPT/HCPCS: 97605; A6234; G0463 ==

== ENCOUNTER 2022-02-05 08:17 | Outpatient (RCR) | payer MEDICAID ==
[~2022-02-05 08:17] MED LIST changes: -FURO-125 PO
[2022-02-10] MEDS ORDERED: FURO-125 PO (12:18)
== END 2022-02-21 | disposition home or self-care (01) ==
LOC: WOUNDCARE 08:17
PROVIDERS: ATTEND Family Medicine
DX: E11.621 Type 2 diabetes mellitus with foot ulcer (principal); L97.524 Non-pressure chronic ulcer of other part of left foot with necrosis of bone; I89.0 Lymphedema, not elsewhere classified; T87.9 Unspecified complications of amputation stump; E11.65 Type 2 diabetes mellitus with hyperglycemia; M86.272 Subacute osteomyelitis, left ankle and foot
CPT/HCPCS: 82947; G0277; 99183

== ENCOUNTER → 2022-02-05 | Outpatient (CLI) | payer MEDICAID ==
[~2022-02-05] MED LIST changes: +FURO-125 PO
== END ==
LOC: WOUNDCARE 08:12
PROVIDERS: ATTEND Family Medicine
DX: E11.621 Type 2 diabetes mellitus with foot ulcer (principal); L97.524 Non-pressure chronic ulcer of other part of left foot with necrosis of bone; E66.01 Morbid (severe) obesity due to excess calories; I89.0 Lymphedema, not elsewhere classified; T87.9 Unspecified complications of amputation stump; E11.65 Type 2 diabetes mellitus with hyperglycemia; M86.672 Other chronic osteomyelitis, left ankle and foot; L92.8 Other granulomatous disorders of the skin and subcutaneous tissue; B96.5 Pseudomonas (aeruginosa) (mallei) (pseudomallei) as the cause of diseases classified elsewhere; B95.61 Methicillin susceptible Staphylococcus aureus infection as the cause of diseases classified elsewhere; E11.52 Type 2 diabetes mellitus with diabetic peripheral angiopathy with gangrene; Z68.44 Body mass index [BMI] 60.0-69.9, adult
CPT/HCPCS: 17250; 87070; 87077; 87205; G0463; 87181

== ENCOUNTER 2022-02-10 05:35 | Outpatient (CLI) | payer MEDICAID ==
[~2022-02-10] VITALS: Ht 167.7 cm; Wt 169.1 kg
[2022-02-10] MEDS ORDERED: FURO-125 PO (12:18)
== END 2022-02-10 12:43 | disposition home or self-care (01) ==
LOC: PREOP 05:35
PROVIDERS: ATTEND Surgery
DX: Z01.818 Encounter for other preprocedural examination (principal)

== ENCOUNTER 2022-02-12 07:10 | Observation (INO) | payer MEDICAID ==
[~2022-02-12] VITALS: Ht 167 cm; Wt 166.2 kg
[2022-02-12] VITALS (10 sets, daily range): BP systolic 105–152; BP diastolic 52–95
[~2022-02-12 07:10] MED LIST changes: +FURO-125 PO
[2022-02-12] MEDS ORDERED: CLINDAMYCIN 600 MG/50 ML IVPB 50 ML IV ONE (07:30)
--- NOTE | 2022-02-12 07:52 | Progress Note-Pre Operative ---
Pre-Operative Progress Note H&P Reviewed The H&P was reviewed, patient examined and no changes noted. Date Seen by Provider: Feb 12, 2022 Time Seen by Provider: 07:51 Date H&P Reviewed: Feb 12, 2022 Time H&P Reviewed: 07:51 Pre-Operative Diagnosis: open left foot wound, 1st metatarsal osteomyelitis MAME WOLFF DO Feb 12, 2022 07:52
[2022-02-12] MEDS: LACTATED RINGERS 1,000 ML IV PRN ×2 (08:07→09:55)
[2022-02-12] MEDS ORDERED: LIDOCAINE/EPI 2% 1:100,00 (XYLOCAINE) 20 ML VIAL ONE (08:10)
[2022-02-12] MEDS ORDERED: MIDAZOLAM 2 MG/2 ML (VERSED) VIAL ONE (08:31)
[2022-02-12] MEDS ORDERED: fentaNYL INJ 100 MCG/2 ML AMP ONE (09:14)
[2022-02-12] MEDS ORDERED: proPOfol 200 MG/20 ML (DIPRIVAN) VIAL IV ONE (09:48)
[2022-02-12] MEDS ORDERED: ONDANSETRON 4 MG/2 ML (SDV) Z0FRAN ONE (09:49)
[2022-02-12] MEDS ORDERED: SEVOFLURANE (ULTANE) 15 ML INHAL SOLN ONE (09:49)
[2022-02-12] MEDS ORDERED: LIDOCAINE PF 2% 5 ML (XYLOCAINE) VIAL ONE (09:49)
--- NOTE | 2022-02-12 10:52 | Anesthesia-General Post-Op ---
General Patient Condition Mental Status/LOC: Same as Preop Cardiovascular: Satisfactory Nausea/Vomiting: Absent Respiratory: Satisfactory Pain: Controlled Complications: Absent Post Op Complications Complications None Follow Up Care/Instructions Patient Instructions None needed. Anesthesia/Patient Condition Patient Condition Patient is doing well, no complaints, stable vital signs, no apparent adverse anesthesia problems. No complications reported per nursing. CATARINA WRIGHT CRNA Feb 12, 2022 10:52
[2022-02-12] MEDS ORDERED: morphine INJ 10 MG/ML 1ML (SYR OR VIAL) IVP ONE (11:00)
[2022-02-12] MEDS ORDERED: fentaNYL INJ 100 MCG/2 ML AMP IVP ONE (11:00)
[2022-02-12] MEDS ORDERED: ONDANSETRON 4 MG/2 ML (SDV) Z0FRAN IVP PRN (11:00)
[2022-02-12] MEDS: inSUlin ASPART (NovoLOG) 1 UNIT/0.01 ML (CHARGE PER UNIT) SC SCH ×3 (12:38→21:12)
[2022-02-12] MEDS: CLINDAMYCIN 600 MG/50 ML IVPB 50 ML IV SCH ×2 (14:34→20:33)
[2022-02-12] MEDS: HYDROcodone/APAP 5 MG/325 MG (LORTAB) TAB PO PRN ×2 (14:34→20:31)
--- NOTE | 2022-02-12 14:58 | Physical Therapy Evaluation ---
PT Evaluation-General Medical Diagnosis Admission Date February 12, 2022 Medical Diagnosis: non healing wound left foot Onset Date: Feb 12, 2022 Therapy Diagnosis Therapy Diagnosis: debility Height/Weight Height (Feet): 5 Height (Inches): 6.00 Weight (Pounds): 362 Weight (Ounces): 5.0 Precautions Precautions/Isolations: Fall Prevention, Standard Precautions Weight Bear Status Right Lower Extremity: Right Weight Bearing/Tolerated Left Lower Extremity: Left Partial Weight Bearing HEAL TOUCH WEIGHT BEARING ON LEFT Patient already has an orthowedge shoe for left foot Referral Physician: Maggy Reason for Referral: Evaluation/Treatment Medical History Pertinent Medical History: DM, HTN, Neuropathy, PVD Additional Medical History morbid obesity Current History osteomyelitis left 1 metatarsal/s/p 1st metatarsal amputation Reviewed History: Yes Social History Home: Apartment Current Living Status: Spouse Entry Into Home: Level Entry Prior Prior Level of Function SCALE: Activities may be completed with or without assistive devices. 0-Vlqyuphusc-qdrizrp completes the activity by him/herself with no assistance from a helper. 5-Set-up or Clean-up Assistance-helper sets up or cleans up; patient completes activity. [place] assists only prior to or following the activity. 4-Supervision or Touching Assistance-helper provides verbal cues and/or touching/steadying and/or contact guard assistance as patient completes activity. Assistance may be provided throughout the activity or intermittently. 3-Partial/Moderate Assistance-helper does LESS THAN HALF the effort. [place] lifts, holds or supports trunk or limbs, but provides less than half the effort. 2-Substantial/Maximal Assistance-helper does MORE THAN HALF the effort. [place] lifts or holds trunk or limbs and provides more than half the effort. 0-Wohyxhnqa-qnchpq does ALL the effort. Patient does none of the effort to complete the activity. Or, the assistance of 2 or more helpers is required for the patient to complete the activity. If activity was not attempted, code reason: 7-Patient Refused. 9-Not Applicable-not attempted and the patient did not perform the activity before the current illness, exacerbation or injury. 10-Not Attempted due to Environmental Limitations-(lack of equipment, weather restraints, etc.). 88-Not Attempted due to Medical Conditions or Safety Concerns. Bed Mobility: 6 Transfers (B,C,W/C): 6 Gait: 6 Indoor Mobility (Ambulation): Independent Prior Devices Use: Manual wheelchair, Walker PT Evaluation-Current Subjective Patient agrees to PT. She reports she is able to do everything as she could before. Pain Numeric Pain Scale: 0-No Pain Location: No Pain Reported Objective Patient Orientation: Normal For Age Attachments: IV ROM/Strength ROM Lower Extremities bilateral LE WFL Strength Lower Extremities 4/5 grossly bilateral LE Integumentary/Posture Integumentary refer to nursing notes Bowel Incontinence: No Bladder Incontinence: No Posture slight trunk flexed posture Neuromuscular (Tone, Coordination, Reflexes) grossly intact Sensory Vision: Wears Glasses Hearing: Functional Sensation Right Lower Extremit: Impaired Sensation Left Lower Extremity: Impaired Transfers Lying to Sitting/Side of Bed(Q: 6 Sit to Stand (QC): 6 Toilet Transfer (QC): 6 Gait Mode of Locomotion: Both Anticipated Mode of Locomotion: Both Walk 10 feet (QC): 6 Distance: 30' Gait Assistive Device: FWW Comments/Gait Description PWB left foot with orthowedge shoe in place left foot Balance Sitting Static: Normal Sitting Dynamic: Normal Standing Static: Normal Standing Dynamic: Normal Assessment/Needs Patient is currently at independent PLOF with all gross motor skills and is compliant with PWB left foot with short distance ambulation. No skilled PT ind icated. Rehab Potential: Fair PT Plan Treatment/Plan Treatment Plan: Discontinue PT, goals met Treatment Duration: Feb 12, 2022 Frequency: 1 time per week Estimated Hrs Per Day: .25 hour per day Patient and/or Family Agrees t: Yes Time/GCodes Time In: 1438 Time Out: 1448 Total Billed Treatment Time: 10 Total Billed Treatment 1 visit EVMod 10 min LUCY HUA PT Feb 12, 2022 14:58
--- NOTE | 2022-02-12 15:04 | Occupational Therapy Eval ---
OT Evaluation-General/PLF Medical Diagnosis Admission Date Medical Diagnosis: non healing wound left foot Onset Date: Feb 12, 2022 Therapy Diagnosis Therapy Diagnosis: n/a Height/Weight Height (Feet): 5 Height (Inches): 6.00 Weight (Pounds): 362 Weight (Ounces): 5.0 Precautions Precautions/Isolations: Fall Prevention, Standard Precautions Weight Bear Status Weight Bearing Restriction: Partial Weight Bearing Location Restriction: LT FOOT WBS (Ord/Comment): HEAL TOUCH WEIGHT BEARING ON LEFT (orthowedge L foot) Referral Physician: Maggy Referral Reason: Evaluation/Treatment Medical History Pertinent Medical History: DM, HTN, Neuropathy, PVD Additional Medical History DM, hyperlipidemia, anxiety, obesity, neuropathy, hypertensive disorder, PVD, asthma, osteomyelitis, dyspnea, amputations Current History presents for follow up of L foot wound following amputation L great toe Social History Home: Apartment Current Living Status: Spouse Entry Into Home: Stairs With Railing Steps Into Home: 16 ADL-Prior Level of Function SCALE: Activities may be completed with or without assistive devices. 1-Bmdzfndspz-snkmnfu completes the activity by him/herself with no assistance from a helper. 5-Set-up or Clean-up Assistance-helper sets up or cleans up; patient completes activity. [place] assists only prior to or following the activity. 4-Supervision or Touching Assistance-helper provides verbal cues and/or touching/steadying and/or contact guard assistance as patient completes activity. Assistance may be provided throughout the activity or intermittently. 3-Partial/Moderate Assistance-helper does LESS THAN HALF the effort. [place] lifts, holds or supports trunk or limbs, but provides less than half the effort. 2-Substantial/Maximal Assistance-helper does MORE THAN HALF the effort. [place] lifts or holds trunk or limbs and provides more than half the effort. 0-Xkriwpbwo-shaulj does ALL the effort. Patient does none of the effort to co mplete the activity. Or, the assistance of 2 or more helpers is required for the patient to complete the activity. If activity was not attempted, code reason: 7-Patient Refused. 9-Not Applicable-not attempted and the patient did not perform the activity before the current illness, exacerbation or injury. 10-Not Attempted due to Environmental Limitations-(lack of equipment, weather restraints, etc.). 88-Not Attempted due to Medical Conditions or Safety Concerns. ADL PLOF Comments Pt independent with ADLs and functional mobility at PLOF, using walker PRN. She cares for her aunt with dementia Self Care: Independent Functional Cognition: Independent OT Current Status Subjective Pt in bed agreeable to OT evaluation. Pt wants to discharge home as soon as possible. Mental Status/Objective Patient Orientation: Person, Place, Time, Situation Current Upper Extremity ROM WFL Upper Extremity Coordination WFL Upper Extremity Strength WFL ADL-Treatment Eating (QC): 6 On/Off Footwear (QC): 6 Toileting Hygiene (QC): 6 Other Treatments Pt in bed, transferred supine to sit EOB independently. Pt donned socks, and shoes at EOB independently. Pt used walker to transfer into bathroom and onto toilet. Pt completed toileting independently, then transferred to recliner. Pt reports she would like to go home as soon as possible, and she feels like she is at her PLOF. Post tx, pt up in recliner, call light in reach and all needs met. Education OT Patient Education: Correct positioning, Modified ADL techniques, Progress toward Goal/Update tx plan, Purpose of tx/functional activities Teaching Recipient: Patient Teaching Methods: Discussion Response to Teaching: Verbalize Understanding OT Physical Trainer Goals Physical Trainer Goals 1=Demonstrate adherence to instructed precautions during ADL tasks. 2=Patient will verbalize/demonstrate understanding of assistive devic es/modifications for ADL. 3=Patient will improve strength/tolerance for activity to enable patient to perform ADL's. OT Education/Plan Problem List/Assessment Assessment: No Skilled OT Needs ID'd No skilled OT services indicated at this time, as pt is independent with all ADLs and functional mobility and is at PLOF. D/C from OT. Discharge Recommendations Plan/Recommendations: Discharge/Goals Met Treatment Plan/Plan of Care Patient would benefit from OT for education, treatment and training to promote independence in ADL's, mobility, safety and/or upper extremity function for ADL's. Plan of Care: ADL Retraining, Functional Mobility Treatment Duration: Feb 12, 2022 Frequency: 1 time per week (eval only) Estimated Hrs Per Day: .25 hour per day Rehab Potential: Good Time/GCodes Start Time: 14:40 Stop Time: 14:55 Total Time Billed (hr/min): 15 Billed Treatment Time 1, EVLeodan VELAZQUEZMODESTO OT Feb 12, 2022 15:04
--- NOTE | 2022-02-12 19:00 | OPERATIVE REPORT ---
DATE OF SERVICE: 02/12/2022 PREOPERATIVE DIAGNOSIS: Open left foot wound with osteomyelitis. POSTOPERATIVE DIAGNOSIS: Open left foot wound with osteomyelitis. PROCEDURE: Left ankle block excisional debridement 5 x 5.5 cm, partial amputation of first metatarsal, left foot. SURGEON: Mame Davis DO ANESTHESIA: General. ESTIMATED BLOOD LOSS: Minimal. COMPLICATIONS: None. INDICATIONS: The patient is a 46-year-old female with an open wound after having amputation performed in the left great toe. The wound was continued to be hypergranulation tissue and also had some slight drainage. She had recent x-rays suggestive of osteomyelitis of the first metatarsal distal portion. She understands risks and benefits of procedure and wished to proceed. Consent was signed in the chart. DESCRIPTION OF PROCEDURE: The patient was taken to the operating suite. She was prepped and draped in sterile fashion. Timeout was performed. Left ankle block was performed. Medial and lateral injection was made to the posterior tibia and then fanned across the dorsum of the foot. Cautery was used to remove hypergranulation tissue with the overall debridement measurements of 5 x 5.5 cm. The wound was then extended along the medial aspect of the foot. The distal portion of the first metatarsal bone was present with changes that were suggestive of possible osteomyelitis were present. The bone was then dissected around completely and a saw was used to amputate it proximal to the area of concern. The wound was then irrigated and hemostasis was achieved. The skin was then closed using 2-0 and 3-0 Prolene in vertical mattress in simple interrupted fashion. The area was washed and dried and sterile bandages were applied. The patient tolerated procedure well without any complications. She was taken to recovery room in stable condition. Job ID: [id number] DocumentID: [id number] Dictated Date: 02/12/2022 14:25:00 Chairperson Anesthesiology Date: 02/12/2022 19:00:21 Dictated By: MAME DAVIS DO
--- NOTE | 2022-02-12 20:51 | Consultation - Hospitalist ---
HPI History of Present Illness: HPI/Chief Complaint Chief complaint: Medical management following Left ankle block excisional debridement 5 x 5.5 cm, partial amputation of first metatarsal, left foot. History of present illness: This is a 46-year-old white female with history of left foot wound presents following an uncomplicated left first metatarsal amputation due to chronic wound. At this current time patient reports pain is doing well. Patient is being considered for inpatient rehab. Source: patient Exam Limitations: no limitations Date Seen 02/12/22 Attending Physician Vladimir Davis Bethany N MD Referring Physician Date of Admission Home Medications & Allergies Home Medications Reviewed patient Home Medication Reconciliation performed by pharmacy medication reconciliations mineral surveying technician and/or nursing. Patients Allergies have been reviewed. Allergies Allergies Coded Allergies Penicillins (Unverified Allergy, Severe, ANAPHYLAXIS, has received Ceftriaxone & Cefepime w/o issue, 12/01/21) Past Kdajlcq-Fcyeuw-Sooout Hx Patient Social History Marrital Status: single Employed/Student: unemployed Smoking Status: Never a Smoker Immunizations Up To Date Date of Influenza Vaccine: Aug 16, 2021 First/Initial COVID19 Vaccinat: DECEMBER 2020 Second COVID19 Vaccination Timothy: JANUARY 2021 Date of Pneumonia Vaccine: Jul 25, 2015 Seasonal Allergies Seasonal Allergies: Yes (INHALERS PRN) Current Status Primary Language: Chinese Past Medical History Surgeries: Amputation, Appendectomy, Orthopedic Asthma Currently Using CPAP: No Currently Using BIPAP: No High Cholesterol, Hypertension Headaches /Migraines, Neuropathy 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 History: Menopausal Bladder Infection, Kidney Stones, UTI-Chronic Gall Bladder Disease Amputee, Arthritis Diabetes, Insulin dep Loss of Vision: Denies Hearing Impairment: Denies Anxiety, Depression Blood Disorders: No Adverse Reaction/Blood Tranf: No Insulin Dependent DM II Multiple amputations 2/2 DM foot ulcers HTN COPD HLD Obesity Family Medical History Coronary thrombosis 19 MOTHER Diabetes mellitus 19 MOTHER Glaucoma 19 MOTHER Hypertension 19 MOTHER Retinal detachment Diabetes Review of Systems Constitutional: see HPI Physical Exam Physical Exam Vital Signs Vital Signs - First Documented 02/12/22 07:25 Temp 36.5 Pulse 80 Resp 22 B/P (MAP) 145/86 (105) Pulse Ox 98 O2 Delivery Room Air Capillary Refill : Height, Weight, BMI Height: 5'6.00" Weight: 362lbs. 5.0oz. [id number]; 58.67 BMI Method:Estimated General Appearance: No Apparent Distress, WD/WN, Chronically ill, Obese Respiratory: Lungs Clear, Normal Breath Sounds Cardiovascular: Regular Rate, Rhythm, No Edema Neurologic/Psychiatric: Alert, Oriented x3 Results Results/Procedures Labs Patient resulted labs reviewed. Assessment/Plan Assessment and Plan Assess & Plan/Chief Complaint Assessment: Left ankle block excisional debridement 5 x 5.5 cm, partial amputation of first metatarsal, left foot. Diabetes Hypertension Obesity BMI 59 Plan: Home meds Monitor sugars AZIZA JACKSON DO Feb 12, 2022 20:51
[2022-02-13] VITALS: BP 164/83
[2022-02-13 04:18] VITALS: BP 153/91
[2022-02-13] MEDS: inSUlin ASPART (NovoLOG) 1 UNIT/0.01 ML (CHARGE PER UNIT) SC SCH ×2 (06:36→11:57)
[2022-02-13] MEDS: HYDROcodone/APAP 5 MG/325 MG (LORTAB) TAB PO PRN ×2 (06:37→14:05)
[2022-02-13 07:51] VITALS: BP 163/90
[2022-02-13 11:30] VITALS: BP 168/84
[2022-02-13] MEDS ORDERED: LIDOCAINE 1% INJ 20 ML VIAL INJ NR (12:30)
[2022-02-13] MEDS ORDERED: LIDOCAINE 1% INJ 20 ML VIAL ONE (12:33)
--- NOTE | 2022-02-13 13:12 | Discharge Inst-Simple/Standard ---
Discharge Inst-Standard Patient Instructions/Follow Up Plan of Care/Instructions/FU: 2 weeks Susan Activity as Tolerated: No (Left lower extremity to be walked on heal of foot.) Discharge Diet: Regular Diet Other Inst to Patient Follow up Appt: Make appointment for 2 week. Instructions: No lifting greater than 10 pounds. No strenuous activity. Left lower extremity heal walk. May shower in 24 hours, no tub bath or soaking. Use incentive spirometer at home as directed. No Smoking Skin/Wound Care: Change bandage daily and as needed. Symptoms to Report: Appetite Changes, Extremity Discoloration, Numbness/Tingling, Swelling Increased, Bleeding Excessive, Eyesight Changes, Pain Increased, Urine Color Change, Constipation(Persistent), Fever over 101 degree F, Pain/Pressure in chest, Urinating Difficulty, Cough Up/Vomit Blood, Heart Beat Irreg/Pounding, Pain/Pressure in jaw, Vaginal Bleeding Increase, Cramps in feet or legs, Lightheadedness, Pain/Pressure in shoulder, Diarrhea(Persistent), Memory Changes Suddenly, Questions/Concerns, Weight gain consecutive days, Dizziness/Fainting, Nausea/Vomiting, Shortness of Breath, Weight gain over 2 pounds If questions or concerns contact your physician Or seek help at emergency department. MAME WOLFF DO Feb 13, 2022 13:12
[2022-02-13 16:08] VITALS: BP 169/86
--- NOTE | 2022-02-13 18:48 | Progress Note - Surgery ---
Subjective Date Seen by a Provider: Feb 13, 2022 Time Seen by a Provider: 12:00 Subjective/Events-last exam Patient feeling well. Pain controlled. Did good with PT. Patient did not meet criteria for inpatient rehab. Wanting to go home. Denies n/v fever sweats chills shortness of breath or chest pain. Objective Exam Vital Signs Date Time Temp Pulse Resp B/P (MAP) Pulse Ox O2 Delivery O2 Flow Rate FiO2 02/13/22 16:15 02/13/22 16:08 36.0 83 20 169/86 (113) 100 Room Air 02/13/22 11:30 36.2 84 19 168/84 (112) 98 Room Air 02/13/22 08:18 Room Air 02/13/22 07:51 36.5 92 19 163/90 (114) 97 Room Air 02/13/22 04:18 36.5 86 18 153/91 (111) 97 Room Air 02/13/22 00:00 36.7 87 19 164/83 (110) 97 Room Air 02/12/22 20:06 Room Air 02/12/22 20:03 36.5 76 18 129/91 (104) 100 Room Air I & O 02/13/22 07:00 Intake Total 2080 ml Output Total 1400 ml Balance 680 ml Capillary Refill : General Appearance: No Apparent Distress, WD/WN, Chronically ill, Obese Respiratory: Chest Non Tender, No Accessory Muscle Use, No Respiratory Distress Cardiovascular: Regular Rate, Rhythm, No JVD Gastrointestinal: non tender, soft Extremity: Other (left foot, incision clean, small opening where stitch pulled out.) Neurologic/Psychiatric: Alert, Oriented x3 Skin: Normal Color, Warm/Dry Results Lab Laboratory Tests 02/13/22 05:04: Glucometer 200H 02/13/22 11:34: Glucometer 228H 02/13/22 15:54: Glucometer 197H Microbiology 02/12/22 MRSA Screen - Final, Complete MRSA not isolated Assessment/Plan Assessment/Plan Assessment/Plan Left ankle block excisional debridement 5 x 5.5 cm, partial amputation of first metatarsal, left foot. Diabetes Hypertension Obesity BMI 59 Small opening at incision where stitch pulled out. The area was reprepped and draped. 2 mL of lidocaine used to anesthesize and 2 simple interrupted 3-[address] to close. Tolerated well. Keep area clean and dry heal walk till healed. Susan 2 weeks Okay to mi home any issues be seen at that time. Final Diagnosis Left ankle block excisional debridement 5 x 5.5 cm, partial amputation of first metatarsal, left foot. Diabetes Hypertension Obesity BMI 59 MAME WOLFF DO Feb 13, 2022 18:48
== END 2022-02-13 16:50 | disposition home or self-care (01) ==
LOC: SDC 07:10 → 4TH 10:50 → SDC 14:58 → 4TH 14:58
PROVIDERS: ADMIT Surgery; ATTEND Surgery
DX: E11.69 Type 2 diabetes mellitus with other specified complication (principal); M86.9 Osteomyelitis, unspecified; T81.89XD Other complications of procedures, not elsewhere classified, subsequent encounter; E66.9 Obesity, unspecified; Z68.43 Body mass index [BMI] 50.0-59.9, adult; Z89.412 Acquired absence of left great toe
CPT/HCPCS: 82947; 87081; 96365; 96372; G0378

== ENCOUNTER 2023-08-10 08:35 | Inpatient (IN) | payer MEDICAID ==
[~2023-08-10] VITALS: Ht 167.7 cm; Wt 176.9 kg
[~2023-08-10 08:35] MED LIST changes: +ALBU8.5H6 IH; -ASPI-789 PO; +ASPI1TAB23 PO; -CROM10DR2 OU; +CROM10DR6 OU; -INSU100I29 SC; +INSU100I30 SC; +LEVO750T PO; -LEVO750T39 PO; -NYST15CR TP; +NYST15CR35 TP; -RT-ALBUINH IH
--- NOTE | 2023-08-10 08:57 | ED Integumentary General ---
"General Chief Complaint: Abdominal/GI Problems Stated Complaint: VOMITING | NAUSEA | RT LEG PAIN Source: patient Exam Limitations: no limitations History of Present Illness Date Seen by Provider: Aug 10, 2023 Time Seen by Provider: 08:47 Initial Comments 47-year-old female presents emergency department today for a wound to her right foot. The wound has been present for about a year however in the evening she started to have increased pain, swelling. She states she has had progressive redness over the last couple days as well has some nausea without any vomiting. No history of blood clots and did have an ultrasound this summer per her report which was negative. 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 He is not on any blood thinning medications. She lost her glucose monitor about 3 weeks ago and does not know what her blood sugars been running but states they typically run normal. All other systems reviewed and negative except documented per HPI. Voice recognition software was used to help create this chart Allergies and Home Medications Allergies Coded Allergies: Penicillins (Unverified Allergy, Severe, ANAPHYLAXIS, has received Ceftriaxone & Cefepime w/o issue, 08/10/23) Patient Home Medication List Home Medication List Reviewed: Yes Albuterol Sulfate (Ventolin Hfa) 1 Puff Puff, 2 PUFF IH Q4H PRN for SHORTNESS OF BREATH, (Reported) Entered as Reported by: FRANCESCO SCHAFFER on 08/22/181411 Aspirin (Aspirin) 81 Mg Tab.chew, 81 MG PO DAILY, (Reported) Entered as Reported by: SIDDHARTH SIBLEY on 12/01/21 1101 Atorvastatin Calcium (Atorvastatin Calcium) 80 Mg Tablet, 80 MG PO HS, (Reported) Entered as Reported by: FRANCESCO SCHAFFER on 08/22/18 141 Budesonide (Pulmicort Flexhaler) 180 Mcg Aer.pow.ba, 1 PUFF INH BID, (Reported) Entered as Reported by: FRANCESCO SCHAFFER on 08/22/181411 Cetirizine HCl (Cetirizine HCl) 10 Mg Tablet, 10 MG PO DAILY, (Reported) Entered as Reported by: FRANCESCO SCHAFFER on 08/22/18 141 Cromolyn Sodium (Cromolyn Sodium) 10 Ml Drops, 2 DROPS OU DAILY PRN for ALLERGIES, (Reported) Entered as Reported by: FRANCESCO SCHAFFER on 10/22/16 0848 Fenofibrate (Fenofibrate) 160 Mg Tablet, 160 MG PO DAILY, (Reported) Entered as Reported by: EVON LEE on 08/05/16 1105 Fluticasone Propionate (Flonase Allergy Relief) 9.9 Ml [place].susp, 1 SPRAY NS BID, (Reported) Entered as Reported by: SIDDHARTH SIBLEY on 12/01/21 110 Furosemide (Lasix) Unknown Strength Tablet, 10 MG PO DAILY, (Reported) Entered as Reported by: HERMILA BANDA on 02/10/22 1218 Gabapentin (Gabapentin) 800 Mg Tablet, 800 MG PO TID, (Reported) Entered as Reported by: FRANCESCO SCHAFFER on 08/22/18 141 Gabapentin (Gabapentin) 100 Mg Capsule, 100 MG PO HS, (Reported) Entered as Reported by: SIDDHARTH SIBLEY on 12/01/21 1101 Hydrochlorothiazide (Hydrochlorothiazide) 25 Mg Tablet, 25 MG PO DAILY, (Reported) Entered as Reported by: FRANCESCO SCHAFFER on 10/22/16 0848 Hydrocodone Bit/Acetaminophen (Lortab 5 Mg Tablet) 1 Each Tablet, 1 TAB PO Q4H PRN for PAIN-MODERATE, (Reported) Entered as Reported by: FRANCESCO SCHAFFER on 10/22/16 0848 Ibuprofen (Ibuprofen) 200 Mg Tablet, 800 MG PO TID PRN for PAIN-MILD, (Reported) Entered as Reported by: FRANCESCO SCHAFFER on 08/22/18 141 Insulin Aspart (Novolog Flexpen) 300 Units/3 Ml Solution, SQ AC PRN for SLIDING SCALE, (Reported) Entered as Reported by: FRANCESCO SCHAFFER on 10/22/16 0848 Insulin Aspart (Novolog Flexpen) 300 Units/3 Ml Solution, 35 UNITS SC TIDAC, (Reported) Entered as Reported by: FRANCESCO SCHAFFER on 10/22/16 0848 Insulin Detemir (Levemir Flextouch) 100 Unit/1 Ml Insuln.pen, 60 UNITS SC BID, (Reported) Entered as Reported by: FRANCESCO SCHAFFER on 10/22/16 0848 Ipratropium/Albuterol Sulfate (Iprat-Albut 0.5-3(2.5) mg/3 ml) 3 Ml Ampul.neb, 3 ML IH UD PRN for SHORTNESS OF BREATH, (Reported) Entered as Reported by: SIDDHARTH SIBLEY on 12/01/21 110 Lisinopril (Lisinopril) 40 Mg Tablet, 40 MG PO DAILY, (Reported) Entered as Reported by: ESSENCE OCONNOR on 08/07/16 0730 Metformin HCl (Metformin HCl) 1,000 Mg Tablet, 1,000 MG PO BID WITH MEALS, (Reported) Entered as Reported by: FRANCESCO SCHAFFER on 10/22/16 0848 Metoprolol Tartrate (Metoprolol Tartrate) 50 Mg Tablet, 50 MG PO BID, (Reported) Entered as Reported by: FRANCESCO SCHAFFER on 10/22/16 0848 Montelukast Sodium (Montelukast Sodium) 10 Mg Tablet, 10 MG PO HS, (Reported) Entered as Reported by: FRANCESCO SCHAFFER on 10/22/16 0848 Multivitamin (Daily Vitamin Formula) 1 Each Tablet, 1 TAB PO DAILY, (Reported) Entered as Reported by: FRANCESCO SCHAFFER on 08/22/18 1411 Nystatin (Nystatin) 15 Gm Cream..g., TP BID PRN for RASH, (Reported) Entered as Reported by: FRANCESCO SCHAFFER on 08/22/18 141 Onabotulinumtoxina (Botox) 100 Unit Vial, 100 UNIT IJ UD, (Reported) Entered as Reported by: SIDDHARTH SIBLEY on 12/01/21 110 Potassium Gluconate (Potassium) 99 Mg Tablet, 99 MG PO DAILY, (Reported) Entered as Reported by: SIDDHARTH SIBLEY on 12/01/21 110 Sertraline HCl (Sertraline HCl) 100 Mg Tablet, 100 MG PO DAILY, (Reported) Entered as Reported by: FRANCESCO SCHAFFER on 08/22/18 1412 Ubrogepant (Ubrelvy) 100 Mg Tablet, 100 MG PO DAILY, (Reported) Entered as Reported by: SIDDHARTH SIBLEY on 12/01/21 110 Review of Systems Review of Systems Constitutional: see HPI Past Zzdjxma-Ahsjyz-Ssqmir Hx Patient Social History Tobacco Use?: No Use of E-Cig and/or Vaping dev: No Substance use?: No Alcohol Use?: No Immunizations Up To Date Tetanus Booster (TDap): Less than 5yrs First/Initial COVID19 Vaccinat: DECEMBER 2020 Second COVID19 Vaccination Timothy: JANUARY 2021 Third COVID19 Vaccination Date: AUGUST 2021 Seasonal Allergies Seasonal Allergies: Yes (INHALERS PRN) Past Medical History Surgeries: Yes (FALLOPIAN TUBE REMOVAL, I&D OF LT BUTTOCK WOUND, WISDOM TEETH, RT FOOT x2) Amputation, Appendectomy, Orthopedic Respiratory: Yes (HARD TO BREATH WHEN LYING FLAT ON BACK) Asthma Currently Using CPAP: No Currently Using BIPAP: No Cardiac: Yes High Cholesterol, Hypertension Neurological: Yes Headaches /Migraines, Neuropathy Reproductive Disorders: No Female Reproductive Disorders: Ovarian Cyst [employer] History: Menopausal Genitourinary: Yes Bladder Infection, Kidney Stones, UTI-Chronic Gastrointestinal: Yes Gall Bladder Disease Musculoskeletal: Yes (OSTEOMYELITIS, DIABETIC NEUROPATHY, ARTHRITIS IN HANDS) Amputee, Arthritis Endocrine: Yes Diabetes, Insulin dep HEENT: No Loss of Vision: Denies Hearing Impairment: Denies Cancer: No Psychosocial: Yes Anxiety, Depression Integumentary: Yes (NON HEALING WOUNDS) Blood Disorders: No Adverse Reaction/Blood Tranf: No Family Medical History Coronary thrombosis 19 MOTHER Diabetes mellitus 19 MOTHER Glaucoma 19 MOTHER Hypertension 19 MOTHER Retinal detachment Diabetes Physical Exam Vital Signs Vital Signs - First Documented 08/10/23 08:45 Temp 38.3 Pulse 114 Resp 22 B/P (MAP) 145/105 (118) Pulse Ox 100 O2 Delivery Room Air Capillary Refill : General Appearance: WD/WN, no apparent distress HEENT: normal ENT inspection, pharynx normal Cardiovascular: no murmur, tachycardia Respiratory: chest non-tender, normal breath sounds, no respiratory distress, no accessory muscle use Gastrointestinal: soft, other Extremities: other (2 cm pressure sore to the plantar surface of her right foot. There is no drainage and no acute evidence for infection. The distal portion of her leg is erythematous and warm to the touch when compared to the left side. It starts below the knee and goes to the ankle, dorsal foot she has good capillary refill but pulses are difficult to palpate) Skin: other (As described above) Progress/Results/Core Measures Results/Orders Lab Results Laboratory Tests Test 08/10/23 09:34 Range/Units White Blood Count 17.6 H 4.3-11.0 10^3/uL Red Blood Count 4.54 3.80-5.11 10^6/uL Hemoglobin 13.9 11.5-16.0 g/dL Hematocrit 40 35-52 % Mean Corpuscular Volume 89 80-99 fL Mean Corpuscular Hemoglobin 31 25-34 pg Mean Corpuscular Hemoglobin Concent 35 32-36 g/dL Red Cell Distribution Width 13.2 10.0-14.5 % Platelet Count 196 130-400 10^3/uL Mean Platelet Volume 10.4 9.0-12.2 fL Immature Granulocyte % (Auto) 0 % Neutrophils (%) (Auto) 93 H 42-75 % Lymphocytes (%) (Auto) 3 L 12-44 % Monocytes (%) (Auto) 3 0-12 % Eosinophils (%) (Auto) 1 0-10 % Basophils (%) (Auto) 0 0-10 % Neutrophils # (Auto) 16.3 H 1.8-7.8 10^3/uL Lymphocytes # (Auto) 0.6 L 1.0-4.0 10^3/uL Monocytes # (Auto) 0.4 0.0-1.0 10^3/uL Eosinophils # (Auto) 0.1 0.0-0.3 10^3/uL Basophils # (Auto) 0.1 0.0-0.1 10^3/uL Immature Granulocyte # (Auto) 0.1 0.0-0.1 10^3/uL Neutrophils % (Manual) 95 % Lymphocytes % (Manual) 2 % Monocytes % (Manual) 2 % Eosinophils % (Manual) 1 % Blood Morphology Comment NORMAL Sodium Level 140 135-145 MMOL/L Potassium Level 4.2 3.6-5.0 MMOL/L Chloride Level 110 H 98-107 MMOL/L Carbon Dioxide Level 19 L 21-32 MMOL/L Anion Gap 11 5-14 MMOL/L Blood Urea Nitrogen 17 7-18 MG/DL Creatinine 0.87 0.60-1.30 MG/DL Estimat Glomerular Filtration Rate 82 BUN/Creatinine Ratio 20 Glucose Level 104 70-105 MG/DL Lactic Acid Level 2.73 *H 0.50-2.00 MMOL/L Calcium Level 8.4 L 8.5-10.1 MG/DL Corrected Calcium 8.8 8.5-10.1 MG/DL Total Bilirubin 0.6 0.1-1.0 MG/DL Aspartate Amino Transf (AST/SGOT) 18 5-34 U/L Alanine Aminotransferase (ALT/SGPT) 22 0-55 U/L Alkaline Phosphatase 65 40-136 U/L Total Protein 7.5 6.4-8.2 GM/DL Albumin 3.5 3.2-4.5 GM/DL My Orders Orders - KENDRA CASPER DO Cbc And Automated Diff (08/10/23 08:54) Comprehensive Metabolic Panel (08/10/23 08:54) Blood Culture (08/10/23 08:54) Ed Iv/Invasive Line Start (08/10/23 08:54) Lactic Acid Analyzer (08/10/23 08:54) Piperacillin/Tazobactam (Piperacillin/Ta (08/10/23 09:00) Vancomycin Injection (Vancomycin Injecti (08/10/23 09:00) Ns Iv 1000 Ml (Ns Iv 1000 Ml) (08/10/23 09:00) Fentanyl Injection (Fentanyl Injection (08/10/23 09:00) Us Venous Lower Ext Rt (08/10/23 08:59) Foot, Right, 3 View (08/10/23 09:15) Ondansetron Injection (Ondansetron Inj (08/10/23 09:30) Manual Differential (08/10/23 09:34) Ed Iv/Invasive Line Start (08/10/23 10:22) Ed Admission (Communication) (08/10/23 10:23) Medications Given in ED Current Medications Medications Dose Ordered Sig/Isabella Route Start Time Stop Time Status Last Admin Dose Admin Fentanyl Citrate 50 mcg ONCE ONCE IVP 08/10/23 09:00 08/10/23 09:01 DC 08/10/23 09:29 50 MCG Ondansetron HCl 8 mg ONCE ONCE IVP 08/10/23 09:30 08/10/23 09:31 DC 08/10/23 09:37 8 MG Piperacillin Sod/ Tazobactam Sod 4.5 gm/Sodium Chloride 100 ml @ 200 mls/hr ONCE ONCE IV 08/10/23 09:00 08/10/23 09:29 DC 08/10/23 09:33 200 MLS/HR Vancomycin HCl 1000 mg/Sodium Chloride 250 ml @ 250 mls/hr ONCE ONCE IV 08/10/23 09:00 08/10/23 09:59 DC 08/10/23 10:14 250 MLS/HR Vital Signs/I&O 08/10/23 08:45 Temp 38.3 Pulse 114 Resp 22 B/P (MAP) 145/105 (118) Pulse Ox 100 O2 Delivery Room Air Departure Communication (Admissions) Patient is tachycardic, hypertensive. Given hypertension, reported fevers and possible source of infection and right leg went ahead and ordered sepsis protocol including lactic acid, blood cultures and broad-spectrum antibiotics. Her white blood cell count is significantly elevated 17.6 with 93% neutrophilic predominance lactic acid is 2.7. I did order some IV fluids, 1 L normal saline, on initial arrival. She does not meet criteria for 30 cc/kg bolus as she is not hypotensive I did order an ultrasound of her leg to rule out DVT especially given the fact that she is having pain up into her right groin. This is pending at the time of admission. I reviewed the remainder of her chemistry which is u nremarkable. Remainder CBC is unremarkable independently reviewed her foot x- ray showing no evidence of osteomyelitis at this time she is admitted to [facility] in otherwise stable condition. I spoke with Dr. Knowles, [facility] resident who accepts patient admission on behalf of Dr. Winter Impression Primary Impression: Cellulitis of right leg Disposition: ADMITTED INPATIENT Condition: Stable Admissions Decision to Admit Reason: Admit from ER (General) Departure-Patient Inst. Referrals: STEPHANIE FLORECNE MD (PCP/Family) Primary Care Physician KENDRA CASPER DO Aug 10, 2023 08:57"
[2023-08-10] MEDS ORDERED: VANCOMYCIN INJECTION 1,000 MG in NS (IVPB) 250 ML 250 ML IV ONE (09:00)
[2023-08-10] MEDS ORDERED: NS IV 1000 ML 1,000 ML IV SCH (09:00)
[2023-08-10] MEDS ORDERED: fentaNYL INJECTION 100 MCG/2 ML VIAL IVP ONE (09:00)
[2023-08-10] MEDS ORDERED: PIPERACILLIN/Tazobactam 4.5 GM in NS (IVPB) 100 ML 100 ML IV ONE (09:00)
[2023-08-10] MEDS ORDERED: ONDANSETRON INJECTION 4 MG/2 ML (SDV) IVP ONE (09:30)
[2023-08-10 09:41] LABS: BASOPHILS # (AUTO) 0.1 10^3/uL (0.0-0.1); BASOPHILS % (AUTO) 0 % (0-10); EOSINOPHILS # (AUTO) 0.1 10^3/uL (0.0-0.3); EOSINOPHILS % (AUTO) 1 % (0-10); HEMATOCRIT 40 % (35-52); HEMOGLOBIN 13.9 g/dL (11.5-16.0); LYMPHOCYTES # (AUTO) 0.6 10^3/uL (1.0-4.0); LYMPHOCYTES % (AUTO) 3 % (12-44); MEAN CORPUSCULAR HEMOGLOBIN 31 pg (25-34); MEAN CORPUSCULAR HGB CONC 35 g/dL (32-36); MEAN CORPUSCULAR VOLUME 89 fL (80-99); MEAN PLATELET VOLUME 10.4 fL (9.0-12.2); MONOCYTES # (AUTO) 0.4 10^3/uL (0.0-1.0); MONOCYTES % (AUTO) 3 % (0-12); NEUTROPHILS # (AUTO) 16.3 10^3/uL (1.8-7.8); NEUTROPHILS % (AUTO) 93 % (42-75); PLATELET COUNT 196 10^3/uL (130-400); WHITE BLOOD COUNT 17.6 10^3/uL (4.3-11.0)
[2023-08-10 09:50] LABS: ALBUMIN 3.5 GM/DL (3.2-4.5)
[2023-08-10 09:51] LABS: POTASSIUM 4.2 MMOL/L (3.6-5.0)
[2023-08-10 09:52] LABS: CALCIUM 8.4 MG/DL (8.5-10.1)
[2023-08-10 09:53] LABS: TOTAL PROTEIN 7.5 GM/DL (6.4-8.2)
[2023-08-10 09:55] LABS: BILIRUBIN,TOTAL 0.6 MG/DL (0.1-1.0); EOSINOPHILS % (MANUAL) 1 %; LYMPHOCYTES % (MANUAL) 2 %; MONOCYTES % (MANUAL) 2 %; NEUTROPHILS % (MANUAL) 95 %; RBC MORPH NORMAL
[2023-08-10 09:57] LABS: CREATININE SERUM 0.87 MG/DL (0.60-1.30)
--- NOTE | 2023-08-10 09:58 | Diagnostic Imaging Report ---
History: Right foot wound, osteomyelitis. COMPARISON: 08/22/2018 TECHNIQUE: 3 views of the right foot. FINDINGS: There are post surgical changes from prior transmetatarsal amputation. No cortical erosion or periosteal reaction is seen to indicate osteomyelitis. There are degenerative changes at the calcaneocuboid joint. There is marked soft tissue swelling about the right foot and leg. There is an ulceration with soft tissue gas plantar to the calcaneus. No radiopaque foreign body is seen. IMPRESSION: 1. Soft tissue ulceration plantar to the calcaneus. No radiographic findings of osteomyelitis. 2. Postsurgical changes and degenerative changes in the right foot. 3. Marked soft tissue swelling. Dictated by: Dictated on workstation # [id number]
--- NOTE | 2023-08-10 10:42 | Diagnostic Imaging Report ---
PROCEDURE: US right lower extremity venous. TECHNIQUE: Multiple real-time grayscale images were obtained over the right lower extremity in various projections. Additional spectral analysis and color Doppler duplex images were also obtained. INDICATION: Pain, swelling and redness to the right lower extremity. FINDINGS: There is no evidence of right lower extremity DVT. Right lower extremity deep venous system shows normal compressibility with normal response to augmentation and Valsalva. No fluid collection or mass is detected. IMPRESSION: No evidence of right lower extremity DVT. Dictated by: Dictated on workstation # [id number]
--- NOTE | 2023-08-10 11:34 | History & Physical-Hospitalist ---
HANNAH MENEDS MD,RESIDENT 08/10/23 1134: History of Present Illness HPI/Chief Complaint CC: pain and swelling of RLE HPI: Pt with medical history significant for T2DM complicated by neuropathy, PAD, HTN presents to ED for increased pain and swelling of right LE surrounding diabetic ulcer of her right foot. She denies fever, SOB, CP, vision changes, muscle aches. She reports pain that radiates from the dorsum of her right foot to her groin on the right side. She has not taken any of her medication this morning. She was seen previously at [facility] clinic for her wounds, however they were not infected at that time. Will admit for IV antibiotics and wound care. Source: patient Date Seen 08/10/23 Time Seen by a Provider: 11:40 Attending Physician Sushma Hoskins MD PCP Admitting Physician: Brigid Jackson DO Attending Physician: Brigid Jackson DO Referring Physician Date of Admission Aug 10, 2023 at 10:41 Home Medications & Allergies Home Medications Reviewed patient Home Medication Reconciliation performed by pharmacy medication reconciliations drivability technician and/or nursing. Patients Allergies have been reviewed. Allergies Allergies Coded Allergies Penicillins (Unverified Allergy, Severe, ANAPHYLAXIS, has received Ceftriaxone & Cefepime w/o issue, 08/10/23) Past Togsjkr-Xnqqtn-Iybrdu Hx Patient Social History Tobacco Use?: Yes Use of E-Cig and/or Vaping dev: No Substance use?: No Alcohol Use?: No Pt feels they are or have been: No Immunizations Up To Date Date of Influenza Vaccine: Aug 16, 2021 First/Initial COVID19 Vaccinat: DECEMBER 2020 Second COVID19 Vaccination Timothy: JANUARY 2021 Date of Pneumonia Vaccine: Jul 25, 2015 Seasonal Allergies Seasonal Allergies: Yes (INHALERS PRN) Current Status status: No status: No Advance Directives: No Communicates: Verbally Primary Language: [place]ill[place] Preferred Spoken Language: [place]guill[place] Is interpretation needed?: No Sensory deficits: Vision impairment Implanted or Applied Medical D: None Past Medical History Surgeries: Amputation, Appendectomy, Orthopedic Asthma Currently Using CPAP: No Currently Using BIPAP: No High Cholesterol, Hypertension Headaches /Migraines, 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: Menopausal Bladder Infection, Kidney Stones, UTI-Chronic Gall Bladder Disease Amputee, Arthritis Diabetes, Insulin dep Loss of Vision: Denies Hearing Impairment: Denies Anxiety, Depression Blood Disorders: No Adverse Reaction/Blood Tranf: No Insulin Dependent DM II Multiple amputations 2/2 DM foot ulcers HTN COPD HLD Obesity Family Medical History Coronary thrombosis 19 MOTHER Diabetes mellitus 19 MOTHER Glaucoma 19 MOTHER Hypertension 19 MOTHER Retinal detachment Diabetes Review of Systems Constitutional: no symptoms reported Respiratory: dyspnea on exertion Cardiovascular: edema Gastrointestinal: no symptoms reported Musculoskeletal: no symptoms reported Skin: rash Psychiatric/Neurological: No Symptoms Reported Physical Exam Physical Exam Vital Signs Vital Signs - First Documented 08/10/23 08:45 Temp 38.3 Pulse 114 Resp 22 B/P (MAP) 145/105 (118) Pulse Ox 100 O2 Delivery Room Air Capillary Refill : Less Than 3 Seconds Height, Weight, BMI Height: 5'6.00" Weight: 362lbs. 5.0oz. [id number]; 63.29 BMI Method:Estimated General Appearance: No Apparent Distress Eyes: Bilateral Eye EOMI Respiratory: Chest Non Tender, Normal Breath Sounds, No Accessory Muscle Use, No Respiratory Distress Cardiovascular: No Murmur, Tachycardia Extremity: Calf Tenderness, Inflammation, Pedal Edema, Swelling Neurologic/Psychiatric: Alert, Oriented x3, Normal Mood/Affect Skin: Erythema, Rash, Other (ulcers over right and left feet) Results Results/Procedures Labs Laboratory Tests 08/10/23 09:34 Patient resulted labs reviewed. Assessment/Plan Admission Diagnosis Sepsis 2/2 diabetic foot ulcers Admission Status: Inpatient Order (span 2 midnights) Reason for Inpatient Admission: Sepsis 2/2 diabetic foot ulcers Diagnosis/Problems Diagnosis/Problems (1) Sepsis Assessment & Plan: Likely 2/2 infected diabetic foot ulcer on right foot Cellulitis of right leg WBC 17 Afebrile Lactic acid 2.73 PLAN: right leg venous doppler neg for DVT vancomycin + cefepime IV IVF (2) Cellulitis of right leg Assessment & Plan: See sepsis (3) Diabetic foot ulcers Assessment & Plan: Right foot plantar ulcer ~2cm See sepsis for plan (4) Diabetes mellitus Status: Chronic Assessment & Plan: PLAN: Slide scale Type A ACHS BG checks (5) PAD (peripheral artery disease) (6) HTN (hypertension) Assessment & Plan: PLAN: 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 Source: patient Exam Limitations: no limitations Past Yjghsxd-Agxqwf-Pepmoy Hx Patient Social History Marrital Status: single Employed/Student: unemployed Smoking Status: Former Smoker Past Medical History Diabetes, Insulin dep Family Medical History Coronary thrombosis 19 MOTHER Diabetes mellitus 19 MOTHER Glaucoma 19 MOTHER Hypertension 19 MOTHER Retinal detachment Review of Systems Constitutional: see HPI Physical Exam Physical Exam General Appearance: No Apparent Distress, Chronically ill Respiratory: Lungs Clear, Normal Breath Sounds Cardiovascular: Regular Rate, Rhythm Extremity: Calf Tenderness, Inflammation, Pedal Edema Neurologic/Psychiatric: Alert, Oriented x3 Assessment/Plan Admission Diagnosis Assessment: Sepsis Right lower extremity cellulitis Right foot diabetic ulcer Obesity Hypertension Hyperlipidemia Plan: IV antibiotics Midline Supportive care Wound care I personally performed the castle portions of the visit, discussed case with resident and concur with resident documentation of history, physical exam, assessment and treatment plan unless otherwise noted. Admission Status: Inpatient Order (span 2 midnights) Reason for Inpatient Admission: Sepsis HANNAH MENDES MD,RESIDENT Aug 10, 2023 11:34 BRIGID JACKSON DO Aug 10, 2023 20:35
[2023-08-10] MEDS ORDERED: VANCOMYCIN INJECTION 0.1 MG in NS (IVPB) 250 ML 250 ML IV SCH (11:45)
[2023-08-10] MEDS ORDERED: ONDANSETRON 4 MG ORAL DISSOLVE TABLET PO PRN (11:45)
[2023-08-10] MEDS ORDERED: MELATONIN 3 MG TABLET PO PRN (11:45)
[2023-08-10] MEDS ORDERED: BISACODYL 10 MG SUPPOSITORY PR PRN (11:45)
[2023-08-10] MEDS ORDERED: CALCIUM CARBONATE 500 MG CHEW TABLET PO PRN (11:45)
[2023-08-10] MEDS ORDERED: LACTULOSE SYRUP 10GM/15ML 30ML UDC PO PRN (11:45)
[2023-08-10] MEDS ORDERED: ONDANSETRON INJECTION 4 MG/2 ML (SDV) IV PRN (11:45)
[2023-08-10] MEDS ORDERED: MILK OF MAGNESIA 400 MG/5 ML 30 ML UDC PO PRN (11:45)
[2023-08-10] MEDS ORDERED: ACETAMINOPHEN 500 MG TABLET PO PRN (11:45)
[2023-08-10] MEDS ORDERED: ANTACID SUSPENSION 30 ML UDC PO PRN (11:45)
[2023-08-10] MEDS ORDERED: ACETAMINOPHEN 325 MG TABLET PO PRN (11:45)
[2023-08-10 11:54] VITALS: BP 177/100
[2023-08-10] MEDS ORDERED: hydrALAZINE 10 MG TABLET PO PRN (12:00)
[2023-08-10] MEDS ORDERED: CEFEPIME INJECTION 1,000 MG in NS (IVPB) 50 ML 50 ML IV SCH (12:00)
[2023-08-10] MEDS ORDERED: VANCOMYCIN 1 GM/NS 250 ML IVPB IV ONE ×4 (12:30→14:30)
[2023-08-10] MEDS ORDERED: meTOprolol TARTRATE (IR) 50 MG TABLET PO SCH ×2 (13:00→21:00)
--- NOTE | 2023-08-10 13:41 | Wound Care Assessment ---
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 She denies weakness, but notes neuropathy in both hands and feet with little sensation in either foot bi laterally. She notes that she is experiencing pain, primarily in the right lower montiel but that her foot ulcer is tender to palpation. In addition, she states that her lower right leg is more swollen and red than what is typical. She notes that she felt feverish earlier this morning but denies any known recent sick contacts. She believes that this particular foot wound has been present for some time and she has previously seen Lindsey Beal at [facility] for this reason. She notes treatment with wet-to-dry dressings and antibiotic ointment but nothing else at this time. She believes that her last hemoglobin A1C was around 6.5 or 6.6 and her blood glucose levels generally run in the mid-100's. She has been in the process of moving recently and believes that all this time on her feet has contributed to her current condition. On arrival to the ER she was found to have a WBC of 17 and a lactic acid of 2.73. She was placed on vancomycin and cefepime and admitted to the hospital for further assessment and treatment. She has many social stressors right now. This ulcer will be difficult to heal due to her numerous comorbidities and Kayleigh is high risk for further amputations. I did encourage her to seek wound care upon discharge but she does not feel she will be able to at this time. If she is unable to see us for wound care, close follow up with PCP is certainly warranted. 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 and DFU Smoking Status: Never a Smoker Recreational Drug Use: No Alcohol Use: Denies Use Review of Systems General: Chills HEENT: No Visual Changes Cardiovascular: Edema; No: Chest Pain, Palpitations Musculoskeletal: leg pain (Right) Neurological: Numbness; No: Weakness, Change in speech, Confusion Exam Vital Signs Date Time Temp Pulse Resp B/P (MAP) Pulse Ox O2 Delivery O2 Flow Rate FiO2 08/10/23 11:54 37.3 120 20 177/100 (125) 100 OxyMask Capillary Refill : Less Than 3 Seconds General Appearance: WD/WN, no apparent distress, obese (Morbidly) HEENT: PERRL/EOMI, normal ENT inspection; No scleral icterus (R), No scleral icterus (L) Neck: non-tender, normal inspection Cardiovascular: no gallop, no JVD, no murmur, tachycardia Respiratory: chest non-tender, lungs clear, normal breath sounds, no respiratory distress, no accessory muscle use Extremities: normal capillary refill, calf tenderness (On right side), inflammation (Erythema and warmth noted in right montiel and calve), pedal edema, swelling (Swelling in lower extremities bilaterally), other (Only the 5th toe of the left foot remains present after significant previous amputations) Neurologic/Psychiatric: normal mood/affect, oriented x 3, sensory deficit (Decreased sensation in bilateral feet) Skin: other (Increased erythema of the right lower extremity, extending from the foot up into the mid-montiel) Skin Problem Location: lower extremities (Right) Skin Character: lesion (On right plantar foot, as described below), swelling, warm, other (Significant lymphedematous changes noted in legs bilaterally) Wound is located on the plantar surface of the right foot, measuring 1.5 x 1.4 x 0.4 cm. Primary etiology is diabetic foot wound, secondary etiology is infection. Hall Grade I. Small serosanguineous drainage is noted without odor. Granulation tissue is large and pink. Necrotic tissue is small and slough, epithelialization is small. There is no tunneling but there is undermining from 10 o'clock to 2 o'clock in a clock-aguilar fashion, 0.3 cm at its deepest. There is a fissure extending laterally from the wound at 9 o'clock. Results Laboratory Tests 08/10/23 09:34: White Blood Count 17.6H, Red Blood Count 4.54, Hemoglobin 13.9, Hematocrit 40, Mean Corpuscular Volume 89, Mean Corpuscular Hemoglobin 31, Mean Corpuscular Hemoglobin Concent 35, Red Cell Distribution Width 13.2, Platelet Count 196, Mean Platelet Volume 10.4, Immature Granulocyte % (Auto) 0, Neutrophils (%) (Auto) 93H, Lymphocytes (%) (Auto) 3L, Monocytes (%) (Auto) 3, Eosinophils (%) (Auto) 1, Basophils (%) (Auto) 0, Neutrophils # (Auto) 16.3H, Lymphocytes # (Auto) 0.6L, Monocytes # (Auto) 0.4, Eosinophils # (Auto) 0.1, Basophils # (Auto) 0.1, Immature Granulocyte # (Auto) 0.1, Neutrophils % (Manual) 95, Lymphocytes % (Manual) 2, Monocytes % (Manual) 2, Eosinophils % (Manual) 1, Blood Morphology Comment NORMAL, Sodium Level 140, Potassium Level 4.2, Chloride Level 110H, Carbon Dioxide Level 19L, Anion Gap 11, Blood Urea Nitrogen 17, Creatinine 0.87, Estimat Glomerular Filtration Rate 82, BUN/Creatinine Ratio 20, Glucose Level 104, Lactic Acid Level 2.73*H, Calcium Level 8.4L, Corrected Calcium 8.8, Total Bilirubin 0.6, Aspartate Amino Transf (AST/SGOT) 18, Alanine Aminotransferase (ALT/SGPT) 22, Alkaline Phosphatase 65, Total Protein 7.5, Albumin 3.5 08/10/23 11:27: Lactic Acid Level 2.08*H 08/10/23 11:38: Glucometer 71 Assessment/Plan/Dx Right plantar diabetic foot ulcer RLE cellulitis -Patient has extensive history of diabetic foot ulcers and resulting infections -Agree with current antibiotic therapy -Cleanse daily with Vashe, apply silver alginate hydrofiber and allevyn BFD to be change daily -Follow-up with outpatient wound-care would be advisable as soon as patient able on d/c home but if patient declines, at least close follow up with PCP -Emphasize off-loading for proper wound healing (she does have new diabetic shoes) -No radiographic findings suggestive of osteomyelitis -Venous doppler studies do not suggest VTE Type DM II -Management per primary team -Glucose levels are generally well-controlled according to the patient -Sliding scale insulin A Supervisory-Addendum Brief Verification & Attestation Participated in pt care: history, MDM, physical Personally performed: exam, history, MDM, supervision of care Care discussed with: Medical Student Procedures: n/a Results interpretation: Verified all documentation YANNI Patino MD Aug 10, 2023 13:41 CHINEDU LEARY MD Aug 10, 2023 15:06
[2023-08-10] MEDS ORDERED: FLU QUADRIvalent (6 months+) 60 mcg/0.5 ml 2023-2024 (FLUARIX) IM ONE (14:45)
[2023-08-10] MEDS: NS IV 1000 ML 1,000 ML IV SCH (14:46)
[2023-08-10] MEDS: CEFEPIME INJECTION 1,000 MG in NS (IVPB) 50 ML 50 ML IV SCH ×2 (14:48→20:22)
[2023-08-10] MEDS ORDERED: HYPOCHLOROUS ACID/NaCl WOUND SOLN 250 ML IR SCH (15:00)
[2023-08-10 15:17] VITALS: BP 122/74
[2023-08-10] MEDS ORDERED: INSU100I88 SQ (15:29)
[2023-08-10] MEDS ORDERED: DULO30CA49 PO (15:29)
[2023-08-10] MEDS ORDERED: ACHD5005 PO (15:29)
[2023-08-10] MEDS ORDERED: ALPR1TAB7 PO (15:29)
[2023-08-10] MEDS ORDERED: METO100T12 PO (15:29)
[2023-08-10] MEDS ORDERED: INSU100I64 SQ (15:29)
[2023-08-10] MEDS ORDERED: INSU100I88 SC (15:29)
[2023-08-10] MEDS ORDERED: INSU100I64 SC (15:29)
[2023-08-10] MEDS ORDERED: IBUPROFEN 200 MG TABLET PO PRN (16:00)
[2023-08-10] MEDS: inSUlin ASPART 1 UNIT/0.01 ML (PER UNIT) SC SCH ×2 (16:35→20:24)
[2023-08-10 19:47] VITALS: BP 158/90
[2023-08-10] MEDS: meTOprolol TARTRATE (IR) 50 MG TABLET PO SCH (20:23)
[2023-08-10] MEDS: ENOXAPARIN 60 MG/0.6 ML SYRINGE SC SCH (20:24)
[2023-08-10] MEDS: SENNOSIDES 8.6 MG TABLET PO SCH (20:24)
[2023-08-10] MEDS: DOCUSATE SODIUM 100 MG CAPSULE PO SCH (20:24)
[2023-08-10] MEDS ORDERED: ENOXAPARIN 40 MG/0.4 ML SYRINGE SC SCH (21:00)
[2023-08-10] MEDS: VANCOMYCIN 1,750 MG/NS 500 ML IVPB IV SCH ×2 (21:10)
[2023-08-10 23:14] VITALS: BP 154/42
[2023-08-11] MEDS: CEFEPIME INJECTION 1,000 MG in NS (IVPB) 50 ML 50 ML IV SCH ×4 (02:59→19:57)
[2023-08-11 03:29] VITALS: BP 166/76
[2023-08-11 05:44] LABS: BASOPHILS # (AUTO) 0.1 10^3/uL (0.0-0.1); BASOPHILS % (AUTO) 1 % (0-10); EOSINOPHILS # (AUTO) 0.1 10^3/uL (0.0-0.3); EOSINOPHILS % (AUTO) 1 % (0-10); HEMATOCRIT 35 % (35-52); HEMOGLOBIN 11.8 g/dL (11.5-16.0); LYMPHOCYTES # (AUTO) 1.2 10^3/uL (1.0-4.0); LYMPHOCYTES % (AUTO) 10 % (12-44); MEAN CORPUSCULAR HEMOGLOBIN 30 pg (25-34); MEAN CORPUSCULAR HGB CONC 34 g/dL (32-36); MEAN CORPUSCULAR VOLUME 89 fL (80-99); MEAN PLATELET VOLUME 10.3 fL (9.0-12.2); MONOCYTES # (AUTO) 0.6 10^3/uL (0.0-1.0); MONOCYTES % (AUTO) 5 % (0-12); NEUTROPHILS # (AUTO) 10.2 10^3/uL (1.8-7.8); NEUTROPHILS % (AUTO) 84 % (42-75); PLATELET COUNT 180 10^3/uL (130-400); WHITE BLOOD COUNT 12.3 10^3/uL (4.3-11.0)
[2023-08-11] MEDS: NS IV 1000 ML 1,000 ML IV SCH ×2 (05:46→13:57)
[2023-08-11] MEDS: inSUlin ASPART 1 UNIT/0.01 ML (PER UNIT) SC SCH ×4 (06:46→21:55)
[2023-08-11 07:25] VITALS: BP 166/80
[2023-08-11] MEDS: SENNOSIDES 8.6 MG TABLET PO SCH ×2 (08:10→20:09)
[2023-08-11] MEDS: DOCUSATE SODIUM 100 MG CAPSULE PO SCH ×2 (08:10→20:09)
[2023-08-11] MEDS: ENOXAPARIN 60 MG/0.6 ML SYRINGE SC SCH ×2 (08:11→19:57)
[2023-08-11] MEDS: meTOprolol TARTRATE (IR) 50 MG TABLET PO SCH ×3 (08:11→21:46)
[2023-08-11] MEDS: VANCOMYCIN 1,750 MG/NS 500 ML IVPB IV SCH ×4 (08:28→20:47)
--- NOTE | 2023-08-11 09:09 | Progress Note ---
HANNAH MENDES MD,RESIDENT 08/11/23 0909: Subjective HPI/CC On Admission Chief complaint: Sepsis from right lower extremity cellulitis HPI: This is a 47-year-old female who has been treated for right plantar surface ulceration who presented with right leg pain and redness found to be cellulitic and sepsis. Subjective/Events-last exam Pt spiked a fever overnight which resolved with tylenol, she also required supplemental O2 via NC. This has resolved this morning and she has remained afebrile since. Pt reports feeling better this morning and has no new symptoms. Cellulitis has not expanded up her lower leg. Focused Exam Lactate Level 08/10/23 09:34: Lactic Acid Level 2.73*H 08/10/23 11:27: Lactic Acid Level 2.08*H 08/10/23 13:34: Lactic Acid Level 2.04*H Objective Exam Vital Signs Vital Signs Date Time Temp Pulse Resp B/P (MAP) Pulse Ox O2 Delivery O2 Flow Rate FiO2 08/11/23 08:00 98 Room Air 0.00 08/11/23 07:25 35.4 80 16 166/80 (108) Capillary Refill : Less Than 3 Seconds General Appearance: No Apparent Distress Respiratory: Lungs Clear, Normal Breath Sounds, No Accessory Muscle Use, No Respiratory Distress Cardiovascular: Regular Rate, Rhythm Gastrointestinal: Non Tender, Soft Extremity: Calf Tenderness, Pedal Edema, Swelling Neurologic/Psychiatric: Alert, Oriented x3, Normal Mood/Affect Skin: Erythema (cellulitis of right foot to mid-tibia) Results/Procedures Lab Laboratory Tests 08/11/23 05:40 Patient resulted labs reviewed. Assessment/Plan Assessment and Plan Assess & Plan/Chief Complaint Cellulitis secondary to right plantar foot diabetic ulcer. Diagnosis/Problems Diagnosis/Problems (1) Sepsis Assessment & Plan: Likely 2/2 infected diabetic foot ulcer on right foot Cellulitis of right leg WBC 17-->12.3 Afebrile Lactic acid 2.73-->2.04 PLAN: right leg venous doppler neg for DVT vancomycin + cefepime IV IVF (2) Cellulitis of right leg Assessment & Plan: See sepsis (3) Diabetic foot ulcers Assessment & Plan: Right foot plantar ulcer ~2cm PLAN: See sepsis Wound consulted, will have Pt f/u on dc (4) Diabetes mellitus Status: Chronic Assessment & Plan: PLAN: Slide scale Type A ACHS BG checks (5) PAD (peripheral artery disease) (6) HTN (hypertension) Assessment & Plan: PLAN: PHARMACY PICKING [employer]CH medication AZIZA JACKSON DO 08/11/232105: Subjective HPI/CC On Admission Date Seen by Provider: Aug 11, 2023 Time Seen by Provider: 11:00 Subjective/Events-last exam right leg is much improved No new issues Restarting home meds including insulin Objective Exam General Appearance: No Apparent Distress, WD/WN Respiratory: Lungs Clear, Normal Breath Sounds Cardiovascular: Regular Rate, Rhythm Extremity: Calf Tenderness, Pedal Edema, Swelling Neurologic/Psychiatric: Alert, Oriented x3 Assessment/Plan Assessment and Plan Assess & Plan/Chief Complaint Continue IV antibiotics Home meds Monitor blood sugar HANNAH MENDES MD,RESIDENT Aug 11, 2023 09:09 AZIZA JACKSON DO Aug 11, 2023 21:06
[2023-08-11 11:28] VITALS: BP 157/95
[2023-08-11] MEDS: HYDROcodone/ACETAMINOPHEN 10/325 TABLET PO PRN ×2 (12:52→18:49)
[2023-08-11 15:19] VITALS: BP 182/98
[2023-08-11 19:18] VITALS: BP 173/92
[2023-08-11] MEDS ORDERED: TROUGH ORDER-PHARMACY XX ONE (20:00)
[2023-08-11] MEDS ORDERED: NON-FORMULARY MEDICATION 1 EA EA (Ubrogepant (Ubrelvy) 100 MG) PO PRN (20:30)
[2023-08-11] MEDS ORDERED: ALPRAZolam 1 MG TABLET PO PRN (20:30)
[2023-08-11] MEDS ORDERED: amLODIPine 5 MG TABLET PO ONE (20:30)
[2023-08-11] MEDS ORDERED: RT-ALBUTEROL SULF 2.5 MG/3 ML PRE-MIX VIAL IH PRN (20:30)
[2023-08-11] MEDS ORDERED: amLODIPine 5 MG TABLET ONE (20:58)
[2023-08-11] MEDS: inSUlin DETERMIR 1 UNIT/0.01 ML (CHARGE PER UNIT) SQ SCH (21:56)
[2023-08-11 23:25] VITALS: BP 139/78
[2023-08-12] MEDS: CEFEPIME INJECTION 1,000 MG in NS (IVPB) 50 ML 50 ML IV SCH ×4 (03:17→19:43)
[2023-08-12 03:20] VITALS: BP 127/71
[2023-08-12 05:40] LABS: BASOPHILS # (AUTO) 0.1 10^3/uL (0.0-0.1); BASOPHILS % (AUTO) 1 % (0-10); EOSINOPHILS # (AUTO) 0.2 10^3/uL (0.0-0.3); EOSINOPHILS % (AUTO) 3 % (0-10); HEMATOCRIT 33 % (35-52); HEMOGLOBIN 11.3 g/dL (11.5-16.0); LYMPHOCYTES # (AUTO) 1.3 10^3/uL (1.0-4.0); LYMPHOCYTES % (AUTO) 15 % (12-44); MEAN CORPUSCULAR HEMOGLOBIN 31 pg (25-34); MEAN CORPUSCULAR HGB CONC 34 g/dL (32-36); MEAN CORPUSCULAR VOLUME 90 fL (80-99); MEAN PLATELET VOLUME 10.8 fL (9.0-12.2); MONOCYTES # (AUTO) 0.6 10^3/uL (0.0-1.0); MONOCYTES % (AUTO) 8 % (0-12); NEUTROPHILS # (AUTO) 6.2 10^3/uL (1.8-7.8); NEUTROPHILS % (AUTO) 73 % (42-75); PLATELET COUNT 160 10^3/uL (130-400); WHITE BLOOD COUNT 8.5 10^3/uL (4.3-11.0)
[2023-08-12] MEDS: inSUlin ASPART 1 UNIT/0.01 ML (PER UNIT) SC SCH ×7 (06:12→20:33)
[2023-08-12] MEDS: THERAPEUTIC MULTIVITAMIN W/MINERALS TABLET PO SCH (06:13)
[2023-08-12 07:31] VITALS: BP 144/73
[2023-08-12] MEDS ORDERED: FLUTICASONE 200 MCG IH SCH (08:00)
[2023-08-12] MEDS: inSUlin DETERMIR 1 UNIT/0.01 ML (CHARGE PER UNIT) SQ SCH ×2 (08:00→20:40)
--- NOTE | 2023-08-12 08:13 | Progress Note ---
HANNAH MENDES MD,RESIDENT 08/12/23 0813: Subjective HPI/CC On Admission Chief complaint: Sepsis from right lower extremity cellulitis HPI: This is a 47-year-old female who has been treated for right plantar surface ulceration who presented with right leg pain and redness found to be cellulitic and sepsis. Subjective/Events-last exam No acute events overnight. Pt remains afebrile since evening of 08/10. She denies any concerns at this time. Stable on RA. Focused Exam Lactate Level 08/10/23 09:34: Lactic Acid Level 2.73*H 08/10/23 11:27: Lactic Acid Level 2.08*H 08/10/23 13:34: Lactic Acid Level 2.04*H Objective Exam Vital Signs Vital Signs Date Time Temp Pulse Resp B/P (MAP) Pulse Ox O2 Delivery O2 Flow Rate FiO2 08/12/23 08:00 97 Room Air 0.00 08/12/23 07:31 36.0 67 16 144/73 (96) Capillary Refill : Less Than 3 Seconds General Appearance: No Apparent Distress Respiratory: Lungs Clear, Normal Breath Sounds, No Accessory Muscle Use, No Respiratory Distress Cardiovascular: Regular Rate, Rhythm Gastrointestinal: Non Tender, Soft Neurologic/Psychiatric: Alert, Oriented x3, Normal Mood/Affect Skin: Erythema (Expanding of erythematous area over RLE), Rash Results/Procedures Lab Laboratory Tests 08/12/23 05:30 Patient resulted labs reviewed. Assessment/Plan Assessment and Plan Assess & Plan/Chief Complaint Cellulitis secondary to right plantar foot diabetic ulcer. Diagnosis/Problems Diagnosis/Problems (1) Sepsis Assessment & Plan: Likely 2/2 infected diabetic foot ulcer on right foot Cellulitis of right leg WBC 17-->12.3 Afebrile Lactic acid 2.73-->2.04 PLAN: right leg venous doppler neg for DVT vancomycin + cefepime IV IVF (2) Cellulitis of right leg Assessment & Plan: 08/12 worsening of cellulitis over RLE, area expanding with worsening erythema; concern for abscess vs possible nec fasc No palpable crepitus on exam PLAN: See sepsis General surgery consult CT RLE Considering widening abx (3) Diabetic foot ulcers Assessment & Plan: Right foot plantar ulcer ~2cm PLAN: See sepsis Wound consulted, will have Pt f/u on dc (4) Diabetes mellitus Status: Chronic Assessment & Plan: PLAN: Slide scale Type A ACHS BG checks (5) PAD (peripheral artery disease) (6) HTN (hypertension) Assessment & Plan: PLAN: [employer] medication AZIZA JACKSON DO 08/13/23 0426: Subjective HPI/CC On Admission Date Seen by Provider: Aug 12, 2023 Time Seen by Provider: 11:00 Subjective/Events-last exam Patient doing about the same Right leg appears to have an abscess formation so CT scan ordered and general surgery consult IV antibiotics maintained Objective Exam General Appearance: No Apparent Distress, WD/WN Extremity: Calf Tenderness, Inflammation, Swelling Skin: Rash Assessment/Plan Assessment and Plan Assess & Plan/Chief Complaint CT scan General surgery consult in case abscess formation needs to be drained HANNAH MENDES MD,RESIDENT Aug 12, 2023 08:13 AZIZA JACKSON DO Aug 13, 2023 04:26
[2023-08-12] MEDS: VANCOMYCIN 1500MG/300ML PREMIX IV SCH ×2 (08:30→20:19)
[2023-08-12] MEDS: DULoxetine 30 MG CAPSULE PO SCH (08:43)
[2023-08-12] MEDS: ASPIRIN 81 MG CHEWABLE TABLET PO SCH (08:45)
[2023-08-12] MEDS: SENNOSIDES 8.6 MG TABLET PO SCH ×2 (08:45→19:44)
[2023-08-12] MEDS: LORATADINE 10 MG TABLET PO SCH (08:45)
[2023-08-12] MEDS: DOCUSATE SODIUM 100 MG CAPSULE PO SCH ×2 (08:46→19:44)
[2023-08-12] MEDS: ENOXAPARIN 60 MG/0.6 ML SYRINGE SC SCH ×2 (08:46→19:43)
[2023-08-12] MEDS: meTOprolol TARTRATE (IR) 50 MG TABLET PO SCH ×2 (08:46→19:44)
[2023-08-12] MEDS: amLODIPine 5 MG TABLET PO SCH (08:47)
[2023-08-12] MEDS ORDERED: IOHEXOL 350 MG/ML 100 ML (OMNIPAQUE 350) VIAL IV ONE (11:30)
[2023-08-12] MEDS ORDERED: NS 100 ML (IVPB) BAG IV ONE (11:30)
[2023-08-12] MEDS ORDERED: HOLD METFORMIN - RECEIVED CONTRAST 20 ML VIAL IV SCH (11:30)
[2023-08-12] MEDS: HYDROcodone/ACETAMINOPHEN 10/325 TABLET PO PRN ×2 (11:42→23:47)
--- NOTE | 2023-08-12 11:45 | Diagnostic Imaging Report ---
PROCEDURE: CT right lower extremity with contrast. TECHNIQUE: Multiple contiguous axial CT images of the right extremity were obtained after intravenous administration of iodinated contrast. Auto Exposure Controls were utilized during the CT exam to meet ALARA standards for radiation dose reduction. INDICATION: Cellulitis in the right leg. COMPARISON: None. FINDINGS: Inflammation and edema is seen in the soft tissues of the visualized right lower extremity. This is greatest adjacent to the mid to lower right tibia and fibula. No evidence of abscess or soft tissue mass. No focal osseous lesions are seen in the right tibia and fibula. No fracture. Alignment of the right ankle is anatomic. No radiopaque foreign bodies are seen. Numerous varicose veins are noted in the right lower extremity. IMPRESSION: 1. Findings consistent with cellulitis of the right lower extremity. No soft tissue mass or abscess. 2. No acute fracture or dislocation in the right tibia and fibula. No focal osseous lesion. Dictated by: Dictated on workstation # [id number]
[2023-08-12 11:47] VITALS: BP 139/86
[2023-08-12] MEDS: FLUTICASONE 200 MCG IH SCH (14:59)
[2023-08-12 15:25] VITALS: BP 132/74
--- NOTE | 2023-08-12 17:39 | CONSULTATION REPORT ---
DATE OF SERVICE: 08/12/2023 ATTENDING PRIMARY CARE PHYSICIAN: Dr. Sushma Hoskins. ADMITTING PHYSICIAN: Dr. Winter. HISTORY OF PRESENT ILLNESS: The patient is a 47-year-old female with history of multiple medical problems, likely stemming from morbid obesity, which include diabetes, hypertension, hypercholesterolemia as well as diabetic neuropathy and peripheral vascular disease. She has had multiple bilateral toe amputations as well as what appears to be transmetatarsal amputations. The patient also has significant bilateral lower extremity edema and chronic venous insufficiency with the right lower extremity being significantly worse than the left. She also has had an overlying redness and cellulitis for what she states is for the past 5 years. On examination, she has a woody appearance skin with redness and +2/3 bilateral lower extremity edema. This appears to be consistent with again chronic venous insufficiency with overlying cellulitis. There is no fluctuance to indicate any abscess. She also does have a diabetic ulcer on the heel of her right foot, which appears to be healing well with good granulation bed. No surrounding redness or erythema. PAST MEDICAL HISTORY: Hypertension, hypercholesterolemia, insulin-dependent diabetes, neuropathy, peripheral vascular disease, migraine headaches, morbid obesity, sleep apnea, asthma, depression, chronic venous insufficiency, neuropathy, history of ovarian cyst, chronic urinary tract infection, history of nephrolithiasis. PAST SURGICAL HISTORY: Multiple bilateral toe amputations as well as transmetatarsal amputations. Salpingectomy. Appendectomy. ALLERGIES: PENICILLIN; HOWEVER, HAS TAKEN FIRST GENERATION CEPHALOSPORINS WITHOUT ANY DIFFICULTY. MEDICATIONS: Albuterol, aspirin, atorvastatin, budesonide, cetirizine, cromolyn sodium, fenofibrate, fluticasone, furosemide, gabapentin, hydrochlorothiazide, hydrocodone, ibuprofen, [ ] insulin, detemir insulin, ipratropium/albuterol nebulizer, lisinopril, metformin, metoprolol, montelukast, potassium, sertraline, Ubrogepant. SOCIAL HISTORY: Negative smoke, negative alcohol. FAMILY HISTORY: Mother, diabetes, coronary artery disease, hypertension. VITAL SIGNS: Temperature 36.0, blood pressure 132/74, pulse 63, respirations 16, pulse ox 94% on room air. REVIEW OF SYSTEMS: Well-nourished female, currently in no acute distress. She is not experiencing any shortness of breath or difficulty breathing. No chest pain, palpitations, diaphoresis. No nausea or vomiting. No diarrhea or constipation with pain and swelling in the right lower extremity. She did have fevers and chills at home approximately 3 days ago; however, none since admission. No recent inadvertent weight loss. All other review of systems negative. PHYSICAL EXAMINATION: CHEST: Decreased breath sounds and scattered rhonchi bilaterally. HEART: Regular. No murmurs. EXTREMITIES: No lower extremity edema. Negative Homans sign. HEENT: No scleral icterus. No cervical lymphadenopathy. ABDOMEN: Soft, nontender, nondistended. SKIN: There is a +2/3 bilateral lower extremity edema. Negative Homans sign. There is significant skin changes surrounding the ankle and montiel of the right leg with a surrounding redness and erythema consistent with cellulitis as well as chronic changes of chronic venous insufficiency, likely due to obstruction of venous outflow and lymphatic channels from her body habitus and body mass index being in the range of 63. LABORATORY DATA: WBC 6.3, hemoglobin 11.3, hematocrit 33, platelets 160, BUN 17, creatinine 0.87. ASSESSMENT AND PLAN: A 47-year-old female with bilateral chronic venous insufficiency with concurrent bilateral lower extremity edema, peripheral neuropathy as well as peripheral arterial disease due to medical comorbidities including diabetes, hypertension, hypercholesterolemia, neuropathy as well as morbid obesity. Recommendations is completely nonsurgical. She needs to wear compression garments on bilateral feet and legs, starting from the forefoot all the way to the mid thigh at all times. Also, while sitting or lying in bed, she needs to have at least 2 pillow elevation. Over time with decreased edema, then she will need to have professional measurements for fitted compression garments. With decreased edema, this will allow for greater perfusion of the skin and allow for greater macrophages neutrophils to prevent infection, cellulitis as well as other complications including abscess formation. Only if she does this as well as proceed with being compliant with all other medical care including proper diet and weight loss will the edema, swelling and symptoms of chronic venous insufficiency will improve and hopefully completely antoine. For now again, we will continue with conservative therapy, with the aforementioned therapy. Job ID: [id number] DocumentID: [id number] Dictated Date: 08/12/2023 17:00:57 Flight Deck Officer Date: 08/12/2023 17:37:00 Dictated By: EDMAR AMARAL MD
[2023-08-12 19:25] VITALS: BP 160/95
[2023-08-12] MEDS ORDERED: PROMETHAZINE INJ 25 MG/ML VIAL IM PRN (20:45)
[2023-08-12 23:40] VITALS: BP 144/71
[2023-08-13] MEDS: CEFEPIME INJECTION 1,000 MG in NS (IVPB) 50 ML 50 ML IV SCH ×2 (02:55→08:42)
[2023-08-13 03:55] VITALS: BP 108/61
[2023-08-13 05:22] LABS: BASOPHILS # (AUTO) 0.1 10^3/uL (0.0-0.1); BASOPHILS % (AUTO) 1 % (0-10); EOSINOPHILS # (AUTO) 0.4 10^3/uL (0.0-0.3); EOSINOPHILS % (AUTO) 4 % (0-10); HEMATOCRIT 34 % (35-52); HEMOGLOBIN 11.6 g/dL (11.5-16.0); LYMPHOCYTES # (AUTO) 1.3 10^3/uL (1.0-4.0); LYMPHOCYTES % (AUTO) 14 % (12-44); MEAN CORPUSCULAR HEMOGLOBIN 30 pg (25-34); MEAN CORPUSCULAR HGB CONC 34 g/dL (32-36); MEAN CORPUSCULAR VOLUME 90 fL (80-99); MEAN PLATELET VOLUME 10.4 fL (9.0-12.2); MONOCYTES # (AUTO) 0.7 10^3/uL (0.0-1.0); MONOCYTES % (AUTO) 8 % (0-12); NEUTROPHILS # (AUTO) 6.6 10^3/uL (1.8-7.8); NEUTROPHILS % (AUTO) 72 % (42-75); PLATELET COUNT 210 10^3/uL (130-400); WHITE BLOOD COUNT 9.3 10^3/uL (4.3-11.0)
[2023-08-13 05:23] LABS: POTASSIUM 4.5 MMOL/L (3.6-5.0)
[2023-08-13 05:24] LABS: CALCIUM 8.1 MG/DL (8.5-10.1)
[2023-08-13 05:25] LABS: TOTAL PROTEIN 6.9 GM/DL (6.4-8.2)
[2023-08-13 05:27] LABS: BILIRUBIN,TOTAL 0.5 MG/DL (0.1-1.0)
[2023-08-13 05:29] LABS: CREATININE SERUM 1.08 MG/DL (0.60-1.30)
[2023-08-13] MEDS: inSUlin ASPART 1 UNIT/0.01 ML (PER UNIT) SC SCH ×7 (05:52→20:22)
[2023-08-13] MEDS: THERAPEUTIC MULTIVITAMIN W/MINERALS TABLET PO SCH (05:52)
--- NOTE | 2023-08-13 08:10 | Progress Note ---
HANNAH MENDES MD,RESIDENT 08/13/23 0810: Subjective HPI/CC On Admission Chief complaint: Sepsis from right lower extremity cellulitis HPI: This is a 47-year-old female who has been treated for right plantar surface ulceration who presented with right leg pain and redness found to be cellulitic and sepsis. Subjective/Events-last exam No acute changes overnight. Pt remains afebrile. Still reports some pain from wound area, however this remains similar to that of yesterday. She is stable on RA Focused Exam Lactate Level Objective Exam Vital Signs Vital Signs Date Time Temp Pulse Resp B/P (MAP) Pulse Ox O2 Delivery O2 Flow Rate FiO2 08/13/23 15:34 36.0 60 17 126/67 (86) 95 Room Air 08/13/23 03:55 0.00 0.00 Capillary Refill : Less Than 3 Seconds General Appearance: No Apparent Distress Respiratory: Chest Non Tender, Normal Breath Sounds, No Accessory Muscle Use, No Respiratory Distress Cardiovascular: Regular Rate, Rhythm Gastrointestinal: Non Tender, Soft Neurologic/Psychiatric: Alert, Oriented x3, Normal Mood/Affect Skin: Erythema (RLE cellulitis similar progression to day before, warm to touch) Results/Procedures Lab Laboratory Tests 08/13/23 05:12 Patient resulted labs reviewed. Assessment/Plan Assessment and Plan Assess & Plan/Chief Complaint Cellulitis secondary to right plantar foot diabetic ulcer. Diagnosis/Problems Diagnosis/Problems (1) Sepsis Assessment & Plan: Likely 2/2 infected diabetic foot ulcer on right foot Cellulitis of right leg WBC 17-->12.3 Afebrile Lactic acid 2.73-->2.04 PLAN: right leg venous doppler neg for DVT D/C vancomycin + cefepime IV - Transition to PO medications - doxycycline 100mg BID + Cephalexin 500 mg QID x10d IVF (2) Cellulitis of right leg Assessment & Plan: 08/12 worsening of cellulitis over RLE, area expanding with worsening erythema; concern for abscess vs possible nec fasc No palpable crepitus on exam PLAN: See sepsis General surgery consult CT RLE Transition to PO abx - ciprofloxacin and doxycycline (3) Diabetic foot ulcers Assessment & Plan: Right foot plantar ulcer ~2cm PLAN: See sepsis Wound consulted, will have Pt f/u on dc (4) Diabetes mellitus Status: Chronic Assessment & Plan: PLAN: Slide scale Type A ACHS BG checks (5) PAD (peripheral artery disease) (6) HTN (hypertension) Assessment & Plan: PLAN: [employer] medication AZIZA JACKSON DO 08/13/23 1847: Subjective HPI/CC On Admission Date Seen by Provider: Aug 13, 2023 Time Seen by Provider: 11:00 Subjective/Events-last exam Improved leg PO abx will be started DC tomorrow Objective Exam General Appearance: No Apparent Distress, WD/WN Skin: Erythema (improved) Assessment/Plan Assessment and Plan Assess & Plan/Chief Complaint DC tomorrow PO abx I personally performed the castle portions of the visit, discussed case with resident and concur with resident documentation of history, physical exam, assessment and treatment plan unless otherwise noted. HANNAH MENDES MD,RESIDENT Aug 13, 2023 08:10 AZIZA JACKSON DO Aug 13, 2023 18:47
[2023-08-13] MEDS: FLUTICASONE 200 MCG IH SCH (08:41)
[2023-08-13] MEDS: LORATADINE 10 MG TABLET PO SCH (08:43)
[2023-08-13] MEDS: SENNOSIDES 8.6 MG TABLET PO SCH ×2 (08:43→20:23)
[2023-08-13] MEDS: amLODIPine 5 MG TABLET PO SCH (08:43)
[2023-08-13] MEDS: ASPIRIN 81 MG CHEWABLE TABLET PO SCH (08:43)
[2023-08-13] MEDS: DULoxetine 30 MG CAPSULE PO SCH (08:43)
[2023-08-13] MEDS: VANCOMYCIN 1500MG/300ML PREMIX IV SCH (08:43)
[2023-08-13] MEDS: DOCUSATE SODIUM 100 MG CAPSULE PO SCH ×2 (08:43→20:22)
[2023-08-13] MEDS: meTOprolol TARTRATE (IR) 50 MG TABLET PO SCH ×2 (08:43→21:18)
[2023-08-13] MEDS: ENOXAPARIN 60 MG/0.6 ML SYRINGE SC SCH ×2 (08:44→21:18)
[2023-08-13] MEDS: inSUlin DETERMIR 1 UNIT/0.01 ML (CHARGE PER UNIT) SQ SCH ×2 (08:44→20:22)
[2023-08-13 08:56] VITALS: BP 139/82
[2023-08-13] MEDS: HYDROcodone/ACETAMINOPHEN 10/325 TABLET PO PRN (09:14)
[2023-08-13 12:00] VITALS: BP 143/79
--- NOTE | 2023-08-13 12:42 | Progress Note ---
Subjective Date Seen by a Provider: Aug 13, 2023 Time Seen by a Provider: 12:30 Subjective/Events-last exam doing ok. no fever/chills. LE dressed dry. Focused Exam Lactate Level 08/10/23 13:34: Lactic Acid Level 2.04*H Objective Exam Vital Signs Date Time Temp Pulse Resp B/P (MAP) Pulse Ox O2 Delivery O2 Flow Rate FiO2 08/13/23 12:00 36.1 65 20 143/79 (100) 95 Room Air 08/13/23 08:56 35.6 69 18 139/82 (101) 97 Room Air 08/13/23 08:45 97 Room Air 08/13/23 08:00 Room Air 08/13/23 03:55 36.2 63 18 108/61 (77) 94 Room Air 0.00 0.00 08/12/23 23:40 36.0 68 18 144/71 (95) 93 Room Air 0.00 0.00 08/12/23 19:50 Room Air 08/12/23 19:25 36.0 65 18 160/95 (116) 95 Room Air 08/12/23 15:25 36.0 63 16 132/74 (93) 94 Room Air 08/12/23 15:00 97 Room Air I & O 08/13/23 07:00 Intake Total 2290 ml Output Total 450 ml Balance 1840 ml Capillary Refill : Less Than 3 Seconds General Appearance: No Apparent Distress HEENT: PERRL/EOMI Neck: Full Range of Motion Respiratory: Chest Non Tender, Decreased Breath Sounds Cardiovascular: Regular Rate, Rhythm Gastrointestinal: normal bowel sounds, non tender, soft Extremity: No Calf Tenderness, Swelling Neurologic/Psychiatric: Alert, Oriented x3 Skin: Normal Color Lymphatic: No Adenopathy Results Lab Laboratory Tests 08/12/23 15:28: Glucometer 139H 08/12/23 20:31: Glucometer 76 08/13/23 05:06: Glucometer 121H 08/13/23 05:12: White Blood Count 9.3, Red Blood Count 3.81, Hemoglobin 11.6, Hematocrit 34L, Mean Corpuscular Volume 90, Mean Corpuscular Hemoglobin 30, Mean Corpuscular Hemoglobin Concent 34, Red Cell Distribution Width 13.6, Platelet Count 210, Mean Platelet Volume 10.4, Immature Granulocyte % (Auto) 1, Neutrophils (%) (Auto) 72, Lymphocytes (%) (Auto) 14, Monocytes (%) (Auto) 8, Eosinophils (%) (Auto) 4, Basophils (%) (Auto) 1, Neutrophils # (Auto) 6.6, Lymphocytes # (Auto) 1.3, Monocytes # (Auto) 0.7, Eosinophils # (Auto) 0.4H, Basophils # (Auto) 0.1, Immature Granulocyte # (Auto) 0.1, Sodium Level 136, Potassium Level 4.5, Chloride Level 109H, Carbon Dioxide Level 18L, Anion Gap 9, Blood Urea Nitrogen 20H, Creatinine 1.08, Estimat Glomerular Filtration Rate 63, BUN/Creatinine Ratio 19, Glucose Level 131H, Calcium Level 8.1L, Corrected Calcium 8.9, Total Bilirubin 0.5, Aspartate Amino Transf (AST/SGOT) 23, Alanine Aminotransferase (ALT/SGPT) 24, Alkaline Phosphatase 50, Total Protein 6.9, Albumin 3.0L 08/13/23 10:55: Glucometer 154H Microbiology 08/10/23 Blood Culture - Preliminary, Resulted Assessment/Plan Assessment/Plan Assess & Plan/Chief Complaint right leg cellulitis with chronic venous insuff. cont abx. elevation. compression at all times. EDMAR AMARAL MD Aug 13, 2023 12:42
[2023-08-13 15:34] VITALS: BP 126/67
[2023-08-13 19:01] VITALS: BP 145/84
[2023-08-13] MEDS: CIPROFLOXACIN 500 MG TABLET PO SCH (21:18)
[2023-08-13 23:46] VITALS: BP 127/81
[2023-08-14 03:58] VITALS: BP 129/64
[2023-08-14 05:30] LABS: BASOPHILS # (AUTO) 0.1 10^3/uL (0.0-0.1); BASOPHILS % (AUTO) 1 % (0-10); EOSINOPHILS # (AUTO) 0.4 10^3/uL (0.0-0.3); EOSINOPHILS % (AUTO) 6 % (0-10); HEMATOCRIT 34 % (35-52); HEMOGLOBIN 11.6 g/dL (11.5-16.0); LYMPHOCYTES % (AUTO) 15 % (12-44); MEAN CORPUSCULAR HEMOGLOBIN 31 pg (25-34); MEAN CORPUSCULAR HGB CONC 34 g/dL (32-36); MEAN CORPUSCULAR VOLUME 91 fL (80-99); MEAN PLATELET VOLUME 10.6 fL (9.0-12.2); MONOCYTES # (AUTO) 0.5 10^3/uL (0.0-1.0); MONOCYTES % (AUTO) 8 % (0-12); NEUTROPHILS # (AUTO) 4.7 10^3/uL (1.8-7.8); NEUTROPHILS % (AUTO) 70 % (42-75); PLATELET COUNT 202 10^3/uL (130-400); WHITE BLOOD COUNT 6.8 10^3/uL (4.3-11.0)
[2023-08-14 05:40] LABS: ALBUMIN 2.9 GM/DL (3.2-4.5)
[2023-08-14 05:41] LABS: POTASSIUM 4.7 MMOL/L (3.6-5.0)
[2023-08-14 05:43] LABS: TOTAL PROTEIN 6.6 GM/DL (6.4-8.2)
[2023-08-14 05:45] LABS: BILIRUBIN,TOTAL 0.5 MG/DL (0.1-1.0)
[2023-08-14 05:47] LABS: CREATININE SERUM 0.98 MG/DL (0.60-1.30)
[2023-08-14] MEDS: inSUlin ASPART 1 UNIT/0.01 ML (PER UNIT) SC SCH ×4 (05:47→12:37)
[2023-08-14] MEDS: THERAPEUTIC MULTIVITAMIN W/MINERALS TABLET PO SCH (06:28)
[2023-08-14 07:47] VITALS: BP 175/87
[2023-08-14] MEDS ORDERED: CIPR500T5 PO (08:13)
[2023-08-14] MEDS ORDERED: DOXY100T2 PO (08:13)
--- NOTE | 2023-08-14 08:20 | Discharge Summary ---
HANNAH MENDES MD,RESIDENT 08/14/23 0818: Discharge Summary Hospital Course Problems/Dx: (1) Sepsis Assessment & Plan: Likely 2/2 infected diabetic foot ulcer on right foot Cellulitis of right leg WBC 17-->12.3 Afebrile Lactic acid 2.73-->2.04 PLAN: right leg venous doppler neg for DVT D/C vancomycin + cefepime IV Transition to PO medications IVF (2) Cellulitis of right leg Assessment & Plan: 08/12 worsening of cellulitis over RLE, area expanding with worsening erythema; concern for abscess vs possible nec fasc No palpable crepitus on exam PLAN: See sepsis General surgery consult CT RLE Transition to PO abx - ciprofloxacin and doxycycline (3) Diabetic foot ulcers Assessment & Plan: Right foot plantar ulcer ~2cm PLAN: See sepsis Wound consulted, will have Pt f/u on dc (4) Diabetes mellitus Status: Chronic Assessment & Plan: PLAN: Slide scale Type A ACHS BG checks (5) PAD (peripheral artery disease) (6) HTN (hypertension) Assessment & Plan: PLAN: 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 Vancomycin and cefepime were started. XR of the extremity did not demonstrate osteomyelitis. Wound care was consulted. The cellulitis expanded which prompted surgery consult and a CT of the extremity, which did not show subcutaneous emphysema or that the infection had infiltrated muscle or bone. Surgery did not recommend surgical intervention and advised compression stockings be worn and adequate wound care. Pt suffered a fever on day 2 of admission, which was controlled with tylenol. She was afebrile for the rest of her stay. Pt was transitioned to oral abx and stable for discharge home on 08/14/23. Labs and Pending Lab Test: Laboratory Tests 08/13/23 10:55: Glucometer 154H 08/13/23 15:33: Glucometer 117H 08/13/23 20:17: Glucometer 59*L 08/13/23 21:06: Glucometer 102 08/14/23 05:24: White Blood Count 6.8, Red Blood Count 3.78L, Hemoglobin 11.6, Hematocrit 34L, Mean Corpuscular Volume 91, Mean Corpuscular Hemoglobin 31, Mean Corpuscular Hemoglobin Concent 34, Red Cell Distribution Width 13.3, Platelet Count 202, Mean Platelet Volume 10.6, Immature Granulocyte % (Auto) 1, Neutrophils (%) (Auto) 70, Lymphocytes (%) (Auto) 15, Monocytes (%) (Auto) 8, Eosinophils (%) (Auto) 6, Basophils (%) (Auto) 1, Neutrophils # (Auto) 4.7, Lymphocytes # (Auto) 1.0, Monocytes # (Auto) 0.5, Eosinophils # (Auto) 0.4H, Basophils # (Auto) 0.1, Immature Granulocyte # (Auto) 0.1, Sodium Level 137, Potassium Level 4.7, Chloride Level 110H, Carbon Dioxide Level 18L, Anion Gap 9, Blood Urea Nitrogen 24H, Creatinine 0.98, Estimat Glomerular Filtration Rate 71, BUN/Creatinine Ratio 24, Glucose Level 135H, Calcium Level 8.0L, Corrected Calcium 8.9, Total Bilirubin 0.5, Aspartate Amino Transf (AST/SGOT) 45H, Alanine Aminotransferase (ALT/SGPT) 40, Alkaline Phosphatase 76, Total Protein 6.6, Albumin 2.9L 08/14/23 05:42: Glucometer 125H Microbiology 08/10/23 Blood Culture - Preliminary, Resulted Home Meds Active Reported Hydrocodone-Acetamin 5-325 mg (Hydrocodone/Acetaminophen) 5 Mg-325 Mg Tablet 1 Ea PO Q6H PRN Alprazolam 1 Mg Tablet 1 Mg PO DAILY PRN Duloxetine HCl 30 Mg Capsule.dr 60 Mg PO DAILY TAKES 2 (30MG) CAPS Levemir Flexpen (Insulin Detemir) 100 Unit/Ml (3 Ml) Insuln.pen 60 Unit SQ DAILY Levemir Flexpen (Insulin Detemir) 100 Unit/Ml (3 Ml) Insuln.pen 50 Units SC HS Insulin Lispro Kwikpen U-100 (Insulin Lispro) 100 Unit/Ml Insuln.pen Unit SQ SLIDING/SCALE USES CORRECTION SCALE Insulin Lispro Kwikpen U-100 (Insulin Lispro) 100 Unit/Ml Insuln.pen 40 Units SC AC Metoprolol Tartrate 100 Mg Tablet 100 Mg PO BID Ubrelvy (Ubrogepant) 100 Mg Tablet 100 Mg PO BID PRN TAKE 1 TAB AT ONSET AND MAY REPEAT 1 DOSE 2 HOURS LATER IF NEEDED Aspirin 81 Mg Tab.chew 81 Mg PO DAILY Pulmicort Flexhaler (Budesonide) 180 Mcg Aer.pow.ba 2 Puff INH BID Atorvastatin Calcium 80 Mg Tablet 80 Mg PO HS LAST FILLED 04-05-2023 #90/90 DAY SUPPLY Cetirizine HCl 10 Mg Tablet 10 Mg PO DAILY Ventolin Hfa (Albuterol Sulfate) 90 Mcg Hfa.aer.ad 2 Puff IH Q4H PRN Daily Vitamin Formula (Multivitamin) 1 Each Tablet 1 Tab PO DAILY Lisinopril 40 Mg Tablet 40 Mg PO DAILY Assessment/Pt Instructions RLE cellulitis, sepsis Follow-up in 7 days with PCP Complete antibiotics Wear compression stockings Discharge Instructions Discharge Diet: No Restrictions Activity as Tolerated: Yes Discharge Physical Examination Vital Signs Vital Signs Date Time Temp Pulse Resp B/P (MAP) Pulse Ox O2 Delivery O2 Flow Rate FiO2 08/14/23 03:58 36.5 87 16 129/64 (85) 96 Room Air 0.00 0.00 General Appearance: No Apparent Distress Respiratory: Lungs Clear, Normal Breath Sounds, No Accessory Muscle Use, No Respiratory Distress Cardiovascular: Regular Rate, Rhythm Gastrointestinal: Non Tender, Soft Extremity: Pedal Edema, Swelling Skin: Erythema (improving cellulitis of RLE) Neurologic/Psychiatric: Alert, Oriented x3, Normal Mood/Affect Allergies: Coded Allergies: Penicillins (Unverified Allergy, Severe, ANAPHYLAXIS, has received Ceftriaxone & Cefepime w/o issue, 08/10/23) Discharge Summary Date of Admission Aug 10, 2023 at 10:41 Date of Discharge Admission Diagnosis Assessment: Sepsis Right lower extremity cellulitis Right foot diabetic ulcer Obesity Hypertension Hyperlipidemia Plan: IV antibiotics Midline Supportive care Wound care I personally performed the castle portions of the visit, discussed case with reside nt and concur with resident documentation of history, physical exam, assessment and treatment plan unless otherwise noted. Discharge Diagnosis Cellulitis secondary to right plantar foot diabetic ulcer. (1) Sepsis Assessment & Plan: Likely 2/2 infected diabetic foot ulcer on right foot Cellulitis of right leg WBC 17-->12.3 Afebrile Lactic acid 2.73-->2.04 PLAN: right leg venous doppler neg for DVT D/C vancomycin + cefepime IV - Transition to PO medications - doxycycline 100mg BID + Cephalexin 500 mg QID x10d IVF (2) Cellulitis of right leg Assessment & Plan: 08/12 worsening of cellulitis over RLE, area expanding with worsening erythema; concern for abscess vs possible nec fasc No palpable crepitus on exam PLAN: See sepsis General surgery consult CT RLE Transition to PO abx - ciprofloxacin and doxycycline (3) Diabetic foot ulcers Assessment & Plan: Right foot plantar ulcer ~2cm PLAN: See sepsis Wound consulted, will have Pt f/u on dc (4) Diabetes mellitus Status: Chronic Assessment & Plan: PLAN: Slide scale Type A ACHS BG checks (5) PAD (peripheral artery disease) (6) HTN (hypertension) Assessment & Plan: PLAN: CHIEF CUSTOMER OFFICER 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 Discharge Planning: <30 minutes discharge planning Discharge Instructions Discharge Diet: No Restrictions Discharge Physical Examination General Appearance: No Apparent Distress Allergies: Coded Allergies: Penicillins (Unverified Allergy, Severe, ANAPHYLAXIS, has received Ceftriaxone & Cefepime w/o issue, 08/10/23) HANNAH MENDES MD,RESIDENT Aug 14, 2023 08:18 AZIZA JACKSON DO Aug 15, 2023 06:12
[2023-08-14] MEDS: SENNOSIDES 8.6 MG TABLET PO SCH (08:38)
[2023-08-14] MEDS: inSUlin DETERMIR 1 UNIT/0.01 ML (CHARGE PER UNIT) SQ SCH (08:38)
[2023-08-14] MEDS: ASPIRIN 81 MG CHEWABLE TABLET PO SCH (08:38)
[2023-08-14] MEDS: HYDROcodone/ACETAMINOPHEN 10/325 TABLET PO PRN (08:38)
[2023-08-14] MEDS: DULoxetine 30 MG CAPSULE PO SCH (08:38)
[2023-08-14] MEDS: amLODIPine 5 MG TABLET PO SCH (08:39)
[2023-08-14] MEDS: meTOprolol TARTRATE (IR) 50 MG TABLET PO SCH (08:39)
[2023-08-14] MEDS: CIPROFLOXACIN 500 MG TABLET PO SCH (08:39)
[2023-08-14] MEDS: DOCUSATE SODIUM 100 MG CAPSULE PO SCH (08:39)
[2023-08-14] MEDS: LORATADINE 10 MG TABLET PO SCH (08:39)
[2023-08-14] MEDS: ENOXAPARIN 60 MG/0.6 ML SYRINGE SC SCH (08:43)
[2023-08-14] MEDS: FLUTICASONE 200 MCG IH SCH (08:47)
--- NOTE | 2023-08-14 10:52 | D/C HH Face to Face Order ---
D/C Face to Face Orders Reconcile Patient Problems Problems Reviewed?: Yes Instructions for Patient Via [employer], Patient Instructions/FollowUp: Follow-up with PCP in 7days after discharge. Cotinue taking 2 antibiotics until 08/18. Use compression stockings. Physician to follow Patient: Dr. Hoskins Discharge Diet for Home: No Restrictions Patient Problems: RLE cellulitis Patient Data-Allergies,Ht & Wt Patient Allergies: Coded Allergies: Penicillins (Unverified Allergy, Severe, ANAPHYLAXIS, has received Ceftriaxone & Cefepime w/o issue, 08/10/23) Height (Feet): 5 Height (Inches): 6.00 Weight (Pounds): 362 Weight (Ounces): 5.0 Home Health Need/Face to Face Date of Face to Face: Aug 14, 2023 Clinical Findings: Wound infection I have seen Pt [id number]: Yes Discharged To: Home Diagnosis/Conditions: Cellultiis, sepsis Patient is Homebound due to: Gab fall risk due to instabilty, Pain w/ambulation Homebound Status Due to the above stated illness, injury or surgical procedure (medical condition or diagnosis) and associated clinical findings, the patient is homebound because of his/her inability to leave home except with aid of a supportive device and/or person AND leaving the home requires a considerable and taxing effort or is medically contraindicated. Pt req the following assistanc: Aid of another person Home Health Nursing Orders Home Health Services Order: Wound Care-Eval/Treat Home Health Infusion Therapy Line Start Date: Aug 10, 2023 Certify Stmt I certify that this patient is under my care and that I, a nurse practitioner or a physician; a human resources office assistant working with me, had a face to face encounter that - meets the physician face to face encounter requirements with this patient as dated. HANNAH MENDES MD,RESIDENT Aug 14, 2023 10:52
[2023-08-14 11:45] VITALS: BP 125/59
[2023-08-14 14:02] VITALS: BP 125/59
== END 2023-08-14 13:20 | disposition home health service (06) | DRG 872 ==
LOC: EDUNIT# 08:35 → ER 08:37 → 4TH 10:41
PROVIDERS: ADMIT Internal Medicine; ATTEND Internal Medicine
DX: A41.9 Sepsis, unspecified organism (principal); L97.419 Non-pressure chronic ulcer of right heel and midfoot with unspecified severity; L03.115 Cellulitis of right lower limb; Z68.44 Body mass index [BMI] 60.0-69.9, adult; E11.621 Type 2 diabetes mellitus with foot ulcer; E11.40 Type 2 diabetes mellitus with diabetic neuropathy, unspecified; E11.51 Type 2 diabetes mellitus with diabetic peripheral angiopathy without gangrene; E66.01 Morbid (severe) obesity due to excess calories; I87.2 Venous insufficiency (chronic) (peripheral); J44.9 Chronic obstructive pulmonary disease, unspecified; H54.7 Unspecified visual loss; M19.042 Primary osteoarthritis, left hand; M19.041 Primary osteoarthritis, right hand; I10 Essential (primary) hypertension; E78.00 Pure hypercholesterolemia, unspecified; J45.909 Unspecified asthma, uncomplicated; Z79.4 Long term (current) use of insulin; Z89.421 Acquired absence of other right toe(s); Z89.422 Acquired absence of other left toe(s); Z89.411 Acquired absence of right great toe; Z89.412 Acquired absence of left great toe; Z79.899 Other long term (current) drug therapy; Z79.82 Long term (current) use of aspirin; Z79.84 Long term (current) use of oral hypoglycemic drugs; Z79.85 Long-term (current) use of injectable non-insulin antidiabetic drugs; Z88.0 Allergy status to penicillin; Z23 Encounter for immunization
CPT/HCPCS: 36415; 36569; 73630; 73701; 76937; 80053; 80202; 82947; 83605; 85007; 85025; 85027; 87040; 90686; 94640; 94760; 96361; 96365; 96367; 96375